=== PATIENT | male | born 1970 | race Caucasian/White ===

== ENCOUNTER → 2020-02-23 12:00 | Outpatient (BNVA) | payer OTHER, SELFPAY | PROVIDERS: PCP Internal Medicine; Visit Provider Internal Medicine | DX: I26.99 Other pulmonary embolism without acute cor pulmonale (principal); Z51.81 Encounter for therapeutic drug level monitoring; Z79.01 Long term (current) use of anticoagulants | CPT/HCPCS: 85610; 99211 ==

== ENCOUNTER 2020-03-06 13:05 | Outpatient (REF) | payer OTHER, SELFPAY ==
--- NOTE | 2020-03-06 13:59 | XR_ITS ---
EXAMINATION: XR CHEST CLINICAL INFORMATION: Asthma. COMPARISON: Chest 07/25/2019. TECHNIQUE: 2 views of the chest were obtained. FINDINGS: The lungs are fairly well-expanded with patchy density seen in left upper lobe suspicious for developing infiltrate/atelectasis/scarring. Patchy density seen in left lower lobe as well questioned infiltrate versus atelectasis. Prominent vascular markings were seen on the previous study. Rest of lungs are expanded and clear. Heart size and vascularity is normal. There is mild dextroscoliosis of dorsal spine. There are surgical sylvain in the mediastinum. There is resection of left posterior fourth rib. XR/XR chest 2V IMPRESSION: Suspect left upper and lower lobe early infiltrate/atelectasis/scarring.
== END 2020-03-06 13:06 | disposition home or self-care (01) ==
LOC: HO.XRAY 13:05
PROVIDERS: PCP Internal Medicine; Referring Provider Internal Medicine; Visit Provider Internal Medicine
DX: J45.909 Unspecified asthma, uncomplicated (principal)
CPT/HCPCS: 71046; 85610

== ENCOUNTER → 2020-03-16 13:03 | Outpatient (BNVA) | payer OTHER, SELFPAY | PROVIDERS: PCP Internal Medicine; Visit Provider Internal Medicine | DX: I26.99 Other pulmonary embolism without acute cor pulmonale (principal); Z79.01 Long term (current) use of anticoagulants; Z51.81 Encounter for therapeutic drug level monitoring | CPT/HCPCS: 85610; 99211 ==

== ENCOUNTER 2020-03-19 12:59 | Outpatient (REF) | payer OTHER, SELFPAY ==
--- NOTE | 2020-03-19 13:02 | CT_ITS ---
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 Axial MIP volume rendering provided. Sagittal and coronal reformatted images were obtained. This CT examination was performed using dose optimization techniques as appropriate, variously including the following: *Automated exposure control *Adjustment of mA and/or kV according to patient size (this includes techniques or standardized protocols for targeted exams where dose is matched to indication/reason for exam; i.e. extremities or head) *Use of iterative reconstruction technique DLP: 414 mGy-cm FINDINGS: ATTENDING PATHOLOGIST: Postsurgical changes left hemithorax. LUNGS: There is stable postsurgical changes to the left hemithorax. There is volume loss of the left lower lobe. There is consolidation seen in the superior segment of the left lower lobe with air bronchograms and some traction bronchiectasis. This is unchanged. There are small calcified right pulmonary nodules that are stable. No new pulmonary nodule is seen. MEDIASTINUM: There are small mediastinal lymph nodes that are stable. There is a small calcified right hilar lymph node that is stable. There are surgical clips in the left posterior mediastinum. The heart does not appear enlarged. There is no pericardial effusion. PLEURA: There is a small loculated pleural effusion or pleural thickening in the surgical field that is unchanged. There is is no right pleural effusion. AXILLA: Superior axillary lymph nodes appear decreased in size from most recent exam February 2019. There is a new prominent more inferior axillary or left lateral chest wall and measures 1.4 x 2.3 cm in AP and transverse dimension axial image 19 series 3. There is a soft tissue seen in the postoperative field of the left upper posterior chest that appears unchanged. UPPER ABDOMEN: Unremarkable. OSSEOUS STRUCTURES: There are postsurgical changes to the left third through ninth posterior ribs. There are degenerative changes of the thoracic spine. CT/CT chest wo con IMPRESSION: Stable postsurgical and posttreatment changes to the left posterior lower chest and chest wall. Upper left axillary lymph nodes appear slightly decreased in size from most recent exam February 2019. There is a new prominent left inferior axillary or lateral chest lymph node measuring 1.4 x 2.3 cm.
== END 2020-03-19 13:00 | disposition home or self-care (01) ==
LOC: HO.CT 12:59
PROVIDERS: PCP Internal Medicine; Visit Provider Surgery
DX: C49.3 Malignant neoplasm of connective and soft tissue of thorax (principal)
CPT/HCPCS: 71250

== ENCOUNTER → 2020-03-23 11:56 | Outpatient (BNVA) | payer OTHER, SELFPAY | PROVIDERS: PCP Internal Medicine; Visit Provider Internal Medicine | DX: I26.99 Other pulmonary embolism without acute cor pulmonale (principal); Z51.81 Encounter for therapeutic drug level monitoring; Z79.01 Long term (current) use of anticoagulants | CPT/HCPCS: 85610; 99211 ==

== ENCOUNTER → 2020-04-04 13:03 | Outpatient (BNVA) | payer OTHER, SELFPAY | PROVIDERS: PCP Internal Medicine; Visit Provider Internal Medicine | DX: I26.99 Other pulmonary embolism without acute cor pulmonale (principal); Z79.01 Long term (current) use of anticoagulants; Z51.81 Encounter for therapeutic drug level monitoring | CPT/HCPCS: 85610; 99211 ==

== ENCOUNTER → 2020-04-13 10:29 | Outpatient (BNVA) | payer OTHER, SELFPAY | PROVIDERS: PCP Internal Medicine; Visit Provider Surgery | DX: Z98.890 Other specified postprocedural states (principal) | CPT/HCPCS: 99214 ==

== ENCOUNTER → 2020-04-25 13:00 | Outpatient (BNVA) | payer OTHER, SELFPAY | PROVIDERS: PCP Internal Medicine; Visit Provider Internal Medicine | DX: I26.99 Other pulmonary embolism without acute cor pulmonale (principal); Z51.81 Encounter for therapeutic drug level monitoring; Z79.01 Long term (current) use of anticoagulants | CPT/HCPCS: 85610; 99211 ==

== ENCOUNTER → 2020-05-02 13:16 | Outpatient (BNVA) | payer OTHER, SELFPAY | PROVIDERS: PCP Internal Medicine; Visit Provider Internal Medicine | DX: J45.909 Unspecified asthma, uncomplicated (principal); J44.9 Chronic obstructive pulmonary disease, unspecified; J98.4 Other disorders of lung | CPT/HCPCS: 99212 ==

== ENCOUNTER → 2020-05-16 13:33 | Outpatient (BNVA) | payer OTHER, SELFPAY | PROVIDERS: PCP Internal Medicine; Visit Provider Internal Medicine | DX: I26.99 Other pulmonary embolism without acute cor pulmonale (principal); Z51.81 Encounter for therapeutic drug level monitoring; Z79.01 Long term (current) use of anticoagulants | CPT/HCPCS: 85610; 99211 ==

== ENCOUNTER 2020-05-30 13:04 | Outpatient (REF) | payer OTHER, SELFPAY ==
[2020-05-30 13:58] LABS: MANUAL DIFF FLAG NO
[2020-05-30 14:01] LABS: Basophils Percent Auto 0.3 % (0-2); Eosinophils Absolute Auto 0.1 X10*3/uL (0.0-0.4); Eosinophils Percent Auto 1.4 % (0-4); Imm Gran Abs Auto 0.01 X10*3/uL (0.00-0.03); Imm Gran Pct Auto 0.2 % (0.0-0.4); Lymphocytes Absolute Auto 1.4 X10*3/uL (1.2-4.9); Lymphocytes Percent Auto 21.6 % (20-40); Mean Corpuscular HGB Conc 34.1 g/dl (31.0-36.0); Mean Corpuscular Hemoglobin 28.5 pg (27.0-33.0); Mean Corpuscular Volume 83.5 fL (80-98); Mean Platelet Volume 9.8 fL (9.4-12.4); Monocytes Absolute Auto 0.3 X10*3/uL (0.1-1.2); Monocytes Percent Auto 5.1 % (2-11); Neutrophils Absolute Auto 4.6 X10*3/uL (2.0-8.3); Neutrophils Percent Auto 71.4 % (45-73); Platelet Count 189 X10*3/uL (160-400); Red Blood Count 5.27 X10*6/uL (4.60-5.80); Red Cell Distribution Width 13.7 % (11.0-16.0); White Blood Count 6.5 X10*3/uL (4.8-10.8)
[2020-05-30 14:14] LABS: Prothrombin Time 67.5 SEC (10.8-13.0)
[2020-05-30 14:19] LABS: INTERNATIONAL NORM RATIO 5.6 (0.9-1.1)
[2020-05-30 14:46] LABS: Alanine Aminotransferase 8 U/L (0-40); Albumin Level 4.1 g/dL (3.5-5.0); Alkaline Phosphatase 132 U/L (39-117); Anion Gap 12 (12-20); Aspartate Amino Transferase 9 U/L (5-37); Bilirubin Total 0.4 mg/dL (0.0-1.0); Blood Urea Nitrogen 6 mg/dL (9-16); Calcium 8.3 mg/dL (8.4-10.2); Carbon Dioxide 26 mmol/L (22-29); Chloride 101 mmol/L (96-108); Estimated Glomerular Filt Rate > 60; Glucose Random 347 mg/dL (60-115); Potassium 3.4 mmol/l (3.3-5.1); Sodium 136 mmol/L (135-145); Total Protein 7.1 g/dL (6.5-8.0)
== END 2020-05-30 13:05 | disposition home or self-care (01) ==
LOC: HO.LAB 13:04
PROVIDERS: PCP Internal Medicine; Visit Provider Internal Medicine
DX: Z79.01 Long term (current) use of anticoagulants (principal)
CPT/HCPCS: 36415; 80053; 85025; 85610; 99211

== ENCOUNTER → 2020-06-05 13:07 | Outpatient (BNVA) | payer OTHER, SELFPAY | PROVIDERS: PCP Internal Medicine; Visit Provider Internal Medicine | DX: I26.99 Other pulmonary embolism without acute cor pulmonale (principal); Z51.81 Encounter for therapeutic drug level monitoring; Z79.01 Long term (current) use of anticoagulants | CPT/HCPCS: 85610; 99211 ==

== ENCOUNTER → 2020-06-14 13:03 | Outpatient (BNVA) | payer OTHER, SELFPAY | PROVIDERS: PCP Internal Medicine; Visit Provider Internal Medicine | DX: I26.99 Other pulmonary embolism without acute cor pulmonale (principal); Z51.81 Encounter for therapeutic drug level monitoring; Z79.01 Long term (current) use of anticoagulants | CPT/HCPCS: 85610; 99211 ==

== ENCOUNTER → 2020-06-22 13:02 | Outpatient (BNVA) | payer OTHER, SELFPAY | PROVIDERS: PCP Internal Medicine; Visit Provider Internal Medicine | DX: I26.99 Other pulmonary embolism without acute cor pulmonale (principal); Z51.81 Encounter for therapeutic drug level monitoring; Z79.01 Long term (current) use of anticoagulants | CPT/HCPCS: 85610; 99211 ==

== ENCOUNTER → 2020-07-06 12:58 | Outpatient (BNVA) | payer OTHER, SELFPAY | PROVIDERS: PCP Internal Medicine; Visit Provider Internal Medicine | DX: I26.99 Other pulmonary embolism without acute cor pulmonale (principal); Z51.81 Encounter for therapeutic drug level monitoring; Z79.01 Long term (current) use of anticoagulants | CPT/HCPCS: 85610; 99211 ==

== ENCOUNTER → 2020-10-22 13:18 | Outpatient (BNVA) | payer OTHER, SELFPAY | PROVIDERS: PCP Internal Medicine; Visit Provider Internal Medicine | DX: J44.9 Chronic obstructive pulmonary disease, unspecified (principal); J45.909 Unspecified asthma, uncomplicated; J98.4 Other disorders of lung; Z79.899 Other long term (current) drug therapy | CPT/HCPCS: 99212 ==

== ENCOUNTER → 2020-12-24 13:09 | Outpatient (BNVA) | payer OTHER, SELFPAY | PROVIDERS: PCP Internal Medicine; Visit Provider Internal Medicine | DX: J44.9 Chronic obstructive pulmonary disease, unspecified (principal); J98.4 Other disorders of lung; J45.909 Unspecified asthma, uncomplicated; Z79.01 Long term (current) use of anticoagulants | CPT/HCPCS: 99212 ==

== ENCOUNTER 2021-02-25 11:53 | Outpatient (REF) | payer OTHER, SELFPAY ==
[2021-02-25 12:16] LABS: MANUAL DIFF FLAG NO
[2021-02-25 12:25] LABS: Basophils Percent Auto 0.4 % (0-2); Eosinophils Absolute Auto 0.2 X10*3/uL (0.0-0.4); Eosinophils Percent Auto 2.3 % (0-4); Hematocrit 43.1 % (42-52); Hemoglobin 15.3 g/dl (14.0-18.0); Imm Gran Abs Auto 0.01 X10*3/uL (0.00-0.03); Imm Gran Pct Auto 0.1 % (0.0-0.4); Lymphocytes Absolute Auto 1.9 X10*3/uL (1.2-4.9); Lymphocytes Percent Auto 25.4 % (20-40); Mean Corpuscular HGB Conc 35.5 g/dl (31.0-36.0); Mean Corpuscular Hemoglobin 31.6 pg (27.0-33.0); Mean Platelet Volume 10.5 fL (9.4-12.4); Monocytes Absolute Auto 0.4 X10*3/uL (0.1-1.2); Monocytes Percent Auto 5.9 % (2-11); Neutrophils Absolute Auto 4.8 X10*3/uL (2.0-8.3); Neutrophils Percent Auto 65.9 % (45-73); Platelet Count 214 X10*3/uL (160-400); Red Blood Count 4.84 X10*6/uL (4.60-5.80); Red Cell Distribution Width 14.6 % (11.0-16.0); White Blood Count 7.3 X10*3/uL (4.8-10.8)
[2021-02-25 12:35] LABS: Estimated Average Glucose 326 mg/dL
[2021-02-25 13:11] LABS: Glucose Fasting 383 mg/dL (60-99)
[2021-02-25 13:12] LABS: Alanine Aminotransferase 29 U/L (0-40); Albumin Level 3.9 g/dL (3.5-5.0); Alkaline Phosphatase 139 U/L (39-117); Anion Gap 14 (12-20); Aspartate Amino Transferase 21 U/L (5-37); Bilirubin Total 0.8 mg/dL (0.0-1.0); Blood Urea Nitrogen 11 mg/dL (9-16); Calcium 9.3 mg/dL (8.4-10.2); Carbon Dioxide 25 mmol/L (22-29); Chloride 101 mmol/L (96-108); Cholesterol 213 mg/dL; Estimated Glomerular Filt Rate 49; HDL Cholesterol 29 mg/dL; Potassium 4.4 mmol/L (3.3-5.1); Sodium 136 mmol/L (135-145); Triglycerides 516 mg/dL
[2021-02-25 13:17] LABS: TSH reflex Free T4 3.49 uIU/mL (0.32-4.0); Vitamin D 25-OH Total 26.2 ng/mL (>30)
[2021-02-25 13:20] LABS: Appearance Urine CLEAR; Color Urine YELLOW; Glucose Urine UA >=1000 MG/DL (NEG); Leukocyte Esterase Urine NEG (NEG); Nitrite Urine NEG (NEG); UACC Culture Trigger NO; Urine Blood TRACE (NEG); Urine Ketones NEG (NEG); Urine Protein TRACE MG/DL (NEG-TRACE)
[2021-02-25 13:52] LABS: Creatinine Urine 111.34 mg/dL; Microalbum/Creatinine Ratio Ur 157.1 ug/mg cr
[2021-02-27 00:23] LABS: C Peptide 2.96 ng/mL (0.80-3.85)
== END 2021-02-25 11:54 | disposition home or self-care (01) ==
LOC: HO.LAB 11:53
PROVIDERS: PCP Internal Medicine; Visit Provider Internal Medicine
DX: E11.9 Type 2 diabetes mellitus without complications (principal); I10 Essential (primary) hypertension; E78.00 Pure hypercholesterolemia, unspecified; J44.9 Chronic obstructive pulmonary disease, unspecified; E55.9 Vitamin D deficiency, unspecified; C41.9 Malignant neoplasm of bone and articular cartilage, unspecified; J98.4 Other disorders of lung; Z79.899 Other long term (current) drug therapy; Z79.01 Long term (current) use of anticoagulants
CPT/HCPCS: 36415; 80053; 80061; 81001; 81003; 82043; 82306; 83036; 84443; 84681; 85025; 99212

== ENCOUNTER 2021-03-13 21:46 | Emergency (ER) | payer OTHER, SELFPAY ==
--- NOTE | ~2021-03-13 | CT_ITS ---
EXAMINATION: CT ANGIOGRAM OF THE CHEST WITH AND WITHOUT CONTRAST (CT PULMONARY ANGIOGRAM FOR PE) CLINICAL INFORMATION: Chest pain history of bilateral PE COMPARISON: CT dated 03/19/2020 and 06/15/2018 TECHNIQUE: Prior to contrast administration, noncontrast localization images were obtained. Subsequently, multidetector volumetric imaging was performed from the thoracic inlet to below the diaphragms following the administration of 65 mL Omnipaque 350 intravenous contrast. No contrast reaction reported Sagittal, coronal, and MIP oblique sagittal reformatted images were obtained on the CT workstation, uploaded to PACS, and reviewed. This CT examination was performed using dose optimization techniques as appropriate, variously including the following: *Automated exposure control *Adjustment of mA and/or kV according to patient size (this includes techniques or standardized protocols for targeted exams where dose is matched to indication/reason for exam; i.e. extremities or head) *Use of iterative reconstruction technique Total exam dose-length product 377 mGy-cm FINDINGS: QUALITY OF STUDY/CONTRAST BOLUS: Satisfactory. PULMONARY ARTERIES: No central or segmental pulmonary emboli. There is relatively hypoperfusion of the posterior and medial basilar segments of the left lower lobe which is likely related to the traction bronchiectasis pleural scarring, and chronic atelectasis in this region. There is rounded atelectasis in the left lower lobe posteriorly adjacent to the chest wall. THORACIC AORTA: No aneurysm or dissection. LUNG: As noted above, there is persistent traction bronchiectasis, pleural peripheral scarring, and rounded atelectasis in the posterior aspect left lower lobe, unchanged dating back multiple prior studies. There is relative volume loss in the left hemithorax, most notably in the left lower lobe. This is an expiratory study as evidenced by the anterior bowing of the posterior wall of the trachea. Patchy areas of subtle increased attenuation throughout both lungs are likely related to the expiratory nature of the study. No focal airspace consolidation. Central airways are otherwise clear. No pulmonary nodules. PLEURA: No pleural effusion or pneumothorax. MEDIASTINUM: Normal heart size. No pericardial effusion. No hilar or mediastinal lymphadenopathy. No evidence of septal bowing or right heart strain. CHEST WALL/AXILLA: There is a left axillary lymph nodes measuring up to 1.7 x 2.5 cm which is slightly increased in size from prior. Is evidence of postsurgical changes are present in the left chest wall posteriorly related to prior chondrosarcoma resection. Osteotomies of the left fifth through eighth ribs are noted posteriorly near the costovertebral junction. There is chronic soft tissue thickening in this region which is unchanged as compared to prior and presumably postsurgical in nature. No definite evidence of local recurrence, though sensitivity is limited. OSSEOUS STRUCTURES: Postsurgical changes of the left chest wall are again noted as detailed above. No acute osseous findings. There is mild degenerative disc disease in the thoracic spine. UPPER ABDOMEN: Mild hepatic steatosis. No reflux of contrast into the hepatic veins to suggest elevated right heart pressures. CT/CT angio chest PE protocol IMPRESSION: 1. No acute pulmonary findings. No evidence of pulmonary emboli. 2. Chronic post surgical changes at the left hemithorax posteriorly with associated pleural parenchymal scarring and rounded atelectasis at the left lower lobe inferiorly/posteriorly. There is relative hypoperfusion of this portion of the left lower lobe. No acute findings in this region. 3. Enlarged 2.5 x 1.7 cm left axillary lymph node, slightly increased in size as compared to prior but not significantly changed as compared to 06/15/2018. VTE: negative
--- NOTE | ~2021-03-13 | XR_ITS ---
EXAMINATION: XR CHEST CLINICAL INFORMATION: Chest pain COMPARISON: [facility] Registered Nurse Rn film from CT dated 03/19/2020, chest film dated 03/06/2020 TECHNIQUE: Frontal view of the chest was obtained. FINDINGS: Chronic markings on the left. No convincing evidence for an acute process when compared to previous. There is volume loss here and scoliosis. The right lung is comparable to previous. The cardiac silhouette is comparable to previous. XR/XR chest 1V IMPRESSION: No convincing evidence for an acute process.
[2021-03-13 21:51] VITALS: BP 180/86; PULSE 81; RESP 18; TEMP 36.3; O2SAT 98; BMI 38.0
--- NOTE | 2021-03-13 21:52 | ECG_ITS ---
Test Reason : chest pain Blood Pressure : / mmHG Vent. Rate : 081 BPM Atrial Rate : 081 BPM P-R Int : 140 ms QRS Dur : 092 ms QT Int : 388 ms P-R-T Axes : 017 -01 009 degrees QTc Int : 450 ms Normal sinus rhythm Normal ECG Heart rate has increased Referred By: Generic ED Physician Electronically Signed By:ROSALINDA ROMAN MD
[2021-03-13 22:12] LABS: MANUAL DIFF FLAG NO
[2021-03-13 22:13] LABS: Basophils Percent Auto 0.4 % (0-2); Eosinophils Absolute Auto 0.2 X10*3/uL (0.0-0.4); Eosinophils Percent Auto 2.4 % (0-4); Hematocrit 41.1 % (42.0-52.0); Hemoglobin 14.2 g/dl (14.0-18.0); Imm Gran Abs Auto 0.01 X10*3/uL (0.00-0.03); Imm Gran Pct Auto 0.1 % (0.0-0.4); Lymphocytes Absolute Auto 2.4 X10*3/uL (1.2-4.9); Lymphocytes Percent Auto 32.7 % (20-40); Mean Corpuscular HGB Conc 34.5 g/dl (31.0-36.0); Mean Corpuscular Hemoglobin 31.9 pg (27.0-33.0); Mean Corpuscular Volume 92.4 fL (80.0-98.0); Mean Platelet Volume 10.1 fL (9.4-12.4); Monocytes Absolute Auto 0.5 X10*3/uL (0.1-1.2); Monocytes Percent Auto 6.6 % (2-11); Neutrophils Absolute Auto 4.17 x10*3/uL (2.0-8.3); Neutrophils Percent Auto 57.8 % (45-73); Platelet Count 195 X10*3/uL (160-400); Red Blood Count 4.45 X10*6/uL (4.60-5.80); Red Cell Distribution Width 14.1 % (11.0-16.0); White Blood Count 7.2 X10*3/uL (4.8-10.8)
[2021-03-13 22:26] LABS: Anion Gap 13 (12-20); Blood Urea Nitrogen 11 mg/dL (9-16); Carbon Dioxide 28 mmol/L (22-29); Chloride 100 mmol/L (96-108); Estimated Glomerular Filt Rate 53; Glucose Random 261 mg/dL (60-115); Potassium 3.9 mmol/L (3.3-5.1); Sodium 137 mmol/L (135-145)
[2021-03-13 22:34] LABS: Troponin-I High Sensitivity 5.4 ng/L (<3.5-35.0)
[2021-03-14 00:59] VITALS: BP 161/83; PULSE 66; RESP 17; TEMP 36.7; O2SAT 98
--- NOTE | 2021-03-14 00:59 | ED.CHESTPAIN ---
HPI - Chest Pain General Chief Complaint: Chest Pain Stated Complaint: feels like heart is beating fast Time Seen by Provider: 03/14/21 00:59 Source: patient Mode of arrival: ambulatory Limitations: no limitations History of Present Illness HPI narrative: Patient complaining of palpitatios and chest pain since 17:00 yesterday lasting only for few seconds had Holter monitoring 2016 which showed occasional PVCs patient does have a history of PE in 2016, history of chondrosarcoma with resection of left sided rib cage, asthma COPD, diabetes mellitus, hypertension was on Coumadin until 07/29 off Coumadin now. Feels left side of chest heavy with more often palpitation episodes no dizziness no loss of consciousness Related Data Previous Rx's Medication Instructions Recorded atorvastatin 40 mg tablet 40 mg PO DAILY #90 tab 06/14/20 omeprazole 40 mg capsule,delayed 40 mg PO DAILY #90 cap 06/14/20 release atenolol 25 mg tablet 25 mg PO DAILY #90 tab 12/17/20 ProAir HFA 90 mcg/actuation 2 puff PO Q4H PRN #8.5 g NS 01/15/21 aerosol inhaler (albuterol sulfate) insulin glargine 100 unit/mL (3 20 unit (0.2 mL) SUBCUT QPM 30 02/22/21 mL) subcutaneous pen (Lantus Days #6 ml Solostar U-100 Insulin) metformin 500 mg tablet 500 mg PO BID 30 Days #60 tab 02/22/21 pen needle, diabetic 32 gauge x #100 ea 02/22/21 5/32 (BD Ultra-Fine Estrella Pen Needle) Allergies Allergy/AdvReac Type Severity Reaction Status Date / Time cat dander [CATS] Allergy Unknown UNKNOWN Verified 02/25/21 13:26 dog dander [DOGS] Allergy Unknown UNKNOWN Verified 02/25/21 13:26 mold [MOLD] Allergy Unknown UNKNOWN Verified 02/25/21 13:26 pollen extracts [POLLEN] Allergy Unknown RUNNY NOSE Verified 02/25/21 13:26 Review of Systems Review of Systems: Yes all other systems are reviewed and are negative PMFSH Past Medical History Medical History Asthma Benign essential hypertension Chondrosarcoma Chronic restrictive lung disease COPD (chronic obstructive pulmonary disease) COPD (chronic obstructive pulmonary disease) Diabetes mellitus Hyperlipidemia Obesity (BMI 30-39.9) Pulmonary emboli Pure hypercholesterolemia Surgical History H/O tooth extraction History of inguinal hernia repair Hx of exploratory thoracotomy Family History Family History Father Hypertension Kidney failure, acute Mother Lung cancer Family/Other Diabetes Social History Social History Housing: House Alcohol intake: former Patient Tobacco Use Status: Never used Tobacco Second Hand Smoke Exposure: Yes Advance Directives: No service: No Current occupational status: unemployed Physical Exam Vital Signs: Vital Signs: Last Vital Signs Temp 98.1 F 03/14/21 00:59 Pulse 66 03/14/21 00:59 Resp 17 03/14/21 00:59 BP 161/83 H 03/14/21 00:59 Pulse Ox 98 03/14/21 00:59 Body Mass Index 38.0 Appearance: Alert. Oriented X3. No acute distress. Obese Eyes: No pallor or icterus ENT: Pharynx normal. Oral Mucosa moist Neck: Normal inspection. Neck supple. CVS: Normal heart rate and rhythm. Pulses normal. Respiratory: No respiratory distress. Equal air entry bilateral, no wheezing/rales/rhonchi Abdomen: Soft and nontender. Bowel sounds are present, no mass palpable, no CVA tenderness Skin: Skin warm and dry. Normal skin color. Normal skin turgor. Extremities: No lower extremity edema. No calf tenderness Neuro: Oriented X 3. No motor deficit. MDM - Chest Pain MDM Narrative Medical decision making narrative: Patient with left chest pain and heaviness with history of PE with obese features likely has obstructive sleep apnea will do CTA chest to rule out PE EKG is normal and cardiac enzymes are negative case signed out to Dr. Marinelli pending CT scan Lab Data Attestation: I reviewed the patient's lab results. Result diagrams: 03/13/21 22:05 03/13/21 22:05 Labs: Lab Results 03/13/21 03/13/21 03/13/21 Range/Units 22:05 22:05 22:05 WBC 7.2 (4.8-10.8) X10*3/uL RBC 4.45 L (4.60-5.80) X10*6/uL Hgb 14.2 (14.0-18.0) g/dl Hct 41.1 L (42.0-52.0) % MCV 92.4 (80.0-98.0) fL MCH 31.9 (27.0-33.0) pg MCHC 34.5 (31.0-36.0) g/dl RDW 14.1 (11.0-16.0) % Plt Count 195 (160-400) X10*3/uL MPV 10.1 (9.4-12.4) fL Immature Gran % (Auto) 0.1 (0.0-0.4) % Neut % (Auto) 57.8 (45-73) % Lymph % (Auto) 32.7 (20-40) % [place] % (Auto) 6.6 (2-11) % Eos % (Auto) 2.4 (0-4) % Baso % (Auto) 0.4 (0-2) % Lymph # (Auto) 2.4 (1.2-4.9) X10*3/uL [place] # (Auto) 0.5 (0.1-1.2) X10*3/uL Eos # (Auto) 0.2 (0.0-0.4) X10*3/uL Baso # (Auto) 0.0 (0.0-0.2) X10*3/uL Abs Immat Gran (auto) 0.01 (0.00-0.03) X10*3/uL Absolute Neuts (auto) 4.17 (2.0-8.3) x10*3/uL Absolute Nucleated RBC 0.000 (0.0-0.012) X10*3/uL Nucleated RBC % (auto) 0.0 (0.0-0.2) /100WBC Sodium 137 (135-145) mmol/L Potassium 3.9 (3.3-5.1) mmol/L Chloride 100 (96-108) mmol/L Carbon Dioxide 28 (22-29) mmol/L Anion Gap 13 (12-20) BUN 11 (9-16) mg/dL Creatinine 1.42 H (0.5-1.4) mg/dL Estim Creat Clear Calc 76.0 Estimated GFR 53 Random Glucose 261 H (60-115) mg/dL Calcium 9.0 (8.4-10.2) mg/dL Troponin I High Sens 5.4 (<3.5-35.0) ng/L ECG Data ECG #1: Attestation: I personally reviewed and interpreted this ECG as follows: Interpretation: Normal sinus rhythm heart rate 81 beats per minute no acute ST T wave changes no acute ischemia impression normal EKG Discharge Plan Discharge Clinical Impression: Heart palpitations Chest pain Qualifiers: Chest pain type: precordial pain Qualified Code(s): R07.2 - Precordial pain Prescriptions: No Action omeprazole 40 mg capsule,delayed release(DR/EC) 40 mg PO DAILY Qty: 90 RF: 8 atorvastatin 40 mg tablet 40 mg PO DAILY Qty: 90 RF: 8 atenolol 25 mg tablet 25 mg PO DAILY Qty: 90 RF: 8 albuterol sulfate [ProAir HFA] 90 mcg/actuation HFA aerosol inhaler 2 puff PO Q4H PRN (Reason: for wheezing) Qty: 8.5 RF: 3 metformin 500 mg tablet 500 mg PO BID 30 Days Qty: 60 RF: 1 Lantus Solostar U-100 Insulin 100 unit/mL (3 mL) insulin pen 20 unit subcut QPM 30 Days Qty: 6 RF: 1 (DME) pen needle, diabetic [BD Ultra-Fine Estrella Pen Needle] 32 gauge x 5/32 needle See Rx Instructions .Route Qty: 100 RF: 5
[2021-03-14] MEDS: 0.9 % Sodium Chloride 1,000 ML 999 ML IVCONT (02:00)
[2021-03-14 02:08] LABS: Prothrombin Time 10.8 SEC (9.9-13.0)
[2021-03-14 02:11] LABS: Partial Thromboplastin Time 32.2 SEC (24.1-38.0)
[2021-03-14] MEDS: iohexoL 350 MG/ML 100 ML INFUS..BTL IV (03:57)
[2021-03-14 04:00] VITALS: BP 143/70; PULSE 62; RESP 14
[2021-03-14] MEDS: LORazepam 1 MG TABLET PO (04:40)
[2021-03-14 05:17] VITALS: BP 130/73; PULSE 67; RESP 20; TEMP 37.1; O2SAT 95
== END 2021-03-14 06:13 | disposition home or self-care (01) ==
PROVIDERS: Internal Medicine; Emergency Provider Emergency Medicine; PCP Internal Medicine
DX: R00.2 Palpitations (principal); R07.2 Precordial pain; Z79.899 Other long term (current) drug therapy
CPT/HCPCS: 36415; 71045; 71275; 80048; 84484; 85025; 85610; 85730; 93005; 96360; 99284; 99285; Q9967

== ENCOUNTER 2021-03-18 12:21 | Outpatient (REF) | payer OTHER, SELFPAY ==
--- NOTE | 2021-03-18 17:46 | PFT_ITS ---
INDICATION: COPD. SPIROMETRY: The FEV1 to FVC of 84% with an FEV1 of 1.5 L which is a 47% predicted, and FVC of 1.79 L which is 44% predicted. No significant response to bronchodilators noted. Maximum voluntary ventilation 59% predicted. LUNG VOLUMES: Total lung capacity 67% predicted with an expiratory reserve volume of 17% predicted. DIFFUSION CAPACITY: DLCO of 61% predicted. COMPARISONS: PFTs from 2020. INTERPRETATION: No obstructive ventilatory defect. No significant response to bronchodilators noted. The patient does have some evidence of small airways disease and moderate degree of decrease in maximum voluntary ventilation secondary to deconditioning. The patient does have a mild restrictive ventilatory defect and also has a decrease in the expiratory reserve volume secondary to an elevated BMI. The patient has a moderate diffusion impairment. When compared to 2019, there is significant decrease in the FVC, significant decrease in the FEV1, a trend increase in the total lung capacity, and trend decrease in the diffusion capacity. Clinical correlation warranted. MD PATRICIA Goldman/FINN / [id number]
== END 2021-03-18 12:22 | disposition home or self-care (01) ==
LOC: HO.RESP 12:21
PROVIDERS: PCP Internal Medicine; Visit Provider Internal Medicine
DX: J98.4 Other disorders of lung (principal); J44.9 Chronic obstructive pulmonary disease, unspecified
CPT/HCPCS: 94060; 94727; 94729

== ENCOUNTER → 2021-04-18 14:04 | Outpatient (BNVA) | payer OTHER, SELFPAY | PROVIDERS: PCP Internal Medicine; Referring Provider Internal Medicine; Visit Provider Internal Medicine Cardiovascular Disease | DX: R00.2 Palpitations (principal); R06.02 Shortness of breath; I10 Essential (primary) hypertension | CPT/HCPCS: 99202 ==

== ENCOUNTER → 2021-06-10 13:28 | Outpatient (REF) | payer OTHER, SELFPAY ==
--- NOTE | 2021-06-10 13:57 | CA_ITS ---
Transthoracic Echocardiogram Patient (Last, First, Middle): Jasbir Joseph O Gender: Male Date of : 1970 Age: 50 Procedure Date: 06/10/2021 Procedure Type: Transthoracic Echocardiogram Location: OP Height: 172.72 cm Weight: 113.4 kg BSA: 2.25 m2 Heart Rate: bpm BP: 136 / 70 mmHg Staff Development Coordinator Rn: SINGH Referring MD: Fan Collins MD Symptoms: R00.2 - Palpitations Study Quality: Technically Difficult/Contrast ECG Rhythm: Sinus Conclusions: - The left ventricular systolic function is normal. The calculated ejection fraction is 67% by biplane method. - There is mild calcification of the aortic valve. - There is mild mitral annular calcification. - Mild pulmonary hypertension is present. Findings Procedure Information Contrast agent, definity, is being given per protocol without apparent complications. Left Ventricle Normal left ventricular cavity size. There is mildly increased left ventricular wall thickness. The left ventricular systolic function is normal. The calculated ejection fraction is 67% by biplane method. There is no evidence of regional wall motion abnormalities. Diastolic function is normal for age. Right Ventricle Normal right ventricular cavity size and systolic function. Atria Both atria are normal in size. Aortic Valve There is a normal trileaflet aortic valve. There is mild calcification of the aortic valve. There is no aortic valve stenosis. There is no aortic valve regurgitation. Mitral Valve There is mild mitral annular calcification. There is no mitral valve regurgitation. There is no mitral valve stenosis. Pulmonic Valve The pulmonic valve is likely normal. Tricuspid Valve There is trace tricuspid valve regurgitation. The right ventricular systolic pressure is 42 mmHg. Mild pulmonary hypertension is present. Great Vessels The aortic annulus, sinuses of valsalva, and asc aorta are normal in size. Venous The inferior vena cava is normal in size and collapses greater than 50% with inspiration. Pericardium/Pleural There is no evidence of pericardial effusion. Prior Study Comparison Changes noted compared to prior study dated: 11/04/2018. Measurements 2D Linear Measurements IVSd: 1.21 0.6-0.9/0.6-1.0 cm LVIDd: 4.56 3.9-5.3/4.2-5.9 cm LVIDd Index: 2.03 2.4-3.2/2.2-3.1 cm/m2 LVIDs: 2.87 2.0-3.6 cm LVPWd: 1.18 0.7-1.1 cm Ao Root: 2.70 2.1-3.5 cm LA Diam: 3.70 2.7-3.8/3.0-4.0 cm LAIDs Index: 1.64 1.5-2.3 cm/m2 LV Mass: 250.52 67-162/88-224 g LV Mass Index: 111.34 43-95/49-115 g/m2 LVOT Diam: 2.10 3.0+(-)1.3 cm 2D Systolic Function EF 4C: 67.90 >55% EF 2C: 67.10 >55% EF BiP: 66.90 >55% Mitral Valve MV Pk E: 1.15 MV PK A: 0.93 MV Decel Time: 259.00 E/A: 1.20 E'Lateral: 11.50 E'Medial: 7.29 E/E' Med: 15.80 E/E' Lat: 10.00 PHT: 76.00 MVA PHT: 2.89 Decel [place]: 4.46 Aortic Valve AoV Pk Soto: 1.33 AoV Mn Soto: 0.85 AoV VTI: 0.24 AoV Pk Grad: 7.00 Aov Mn Grad: 3.00 DAKSHA Cont.VTI: 2.74 LVOT LVOT Pk Soto: 0.90 LVOT Mn Soto: 0.65 LVOT VTI: 0.19 LVOT Pk Grad: 3.00 LVOT Mn Grad: 2.00 LVOT Diam: 2.10 LVOT Area: 3.46 Diastolic Function MV Pk E: 1.15 MV Pk A: 0.93 E/A: 1.20 E'Medial: 7.29 E/E' Med: 15.80 E' Laterial: 11.50 E/E' Lat: 10.00 Right Ventricle TAPSE (mm): 18.00 TVS' Soto: 12.40 Tricuspid Valve TR Pk Soto: 3.12 TR Pk Grad: 39.00 RA Press: 3.00 RVSP: 42.00 Great Vessels Aorta Ao Root-2D: 2.70 2.0-3.7 cm Ao Asc: 3.00 2.1-3.4 cm Ao Arch: 3.00 Updated in Other Vendor System with Status of Final Nayan Jon MD electronically signed on 06/11/2021 10:50:21 AM with status of Final
--- NOTE | 2021-06-10 14:08 | HM_ITS ---
conclusion: 1. Patient was monitored for total period of 1 day and 22 hours 2. Baseline rhythm was normal sinus rhythm with average heart rate 60 beats per minute 3. No significant pauses or bradycardia noted 4. Very rare ectopy noted 5. No patient reported events MTDD
== END ==
LOC: HO.CARD 13:28
PROVIDERS: Visit Provider Internal Medicine Cardiovascular Disease
DX: R00.2 Palpitations (principal)
CPT/HCPCS: 93242; 93306; Q9957

== ENCOUNTER → 2021-06-12 13:54 | Outpatient (BNVA) | payer OTHER, SELFPAY | PROVIDERS: PCP Internal Medicine; Visit Provider Internal Medicine | DX: J44.9 Chronic obstructive pulmonary disease, unspecified (principal); J98.4 Other disorders of lung; E66.9 Obesity, unspecified; C41.9 Malignant neoplasm of bone and articular cartilage, unspecified; Z79.01 Long term (current) use of anticoagulants; Z68.41 Body mass index [BMI] 40.0-44.9, adult | CPT/HCPCS: 99212 ==

== ENCOUNTER → 2021-07-04 12:30 | Outpatient (BNVA) | payer OTHER, SELFPAY | PROVIDERS: PCP Internal Medicine; Referring Provider Internal Medicine; Visit Provider Nurse Practitioner Family | DX: R00.2 Palpitations (principal); R06.02 Shortness of breath; J98.4 Other disorders of lung; I10 Essential (primary) hypertension; E66.9 Obesity, unspecified; Z68.41 Body mass index [BMI] 40.0-44.9, adult | CPT/HCPCS: 99212 ==

== ENCOUNTER 2021-08-09 09:55 | Outpatient (REF) | payer OTHER, SELFPAY ==
[2021-08-09 10:09] LABS: MANUAL DIFF FLAG NO
[2021-08-09 10:23] LABS: Basophils Percent Auto 0.4 % (0-2); Eosinophils Absolute Auto 0.2 X10*3/uL (0.0-0.4); Eosinophils Percent Auto 2.8 % (0-4); Hemoglobin 13.3 g/dl (14.0-18.0); Imm Gran Abs Auto 0.02 X10*3/uL (0.00-0.03); Imm Gran Pct Auto 0.3 % (0.0-0.4); Lymphocytes Absolute Auto 1.9 X10*3/uL (1.2-4.9); Mean Corpuscular HGB Conc 33.3 g/dl (31.0-36.0); Mean Corpuscular Hemoglobin 30.6 pg (27.0-33.0); Mean Corpuscular Volume 92.2 fL (80.0-98.0); Monocytes Absolute Auto 0.5 X10*3/uL (0.1-1.2); Monocytes Percent Auto 7.5 % (2-11); Neutrophils Absolute Auto 4.6 x10*3/uL (2.0-8.3); Platelet Count 219 X10*3/uL (160-400); Red Blood Count 4.34 X10*6/uL (4.60-5.80); Red Cell Distribution Width 13.8 % (11.0-16.0); White Blood Count 7.2 X10*3/uL (4.8-10.8)
[2021-08-09 10:46] LABS: Appearance Urine CLEAR; Color Urine YELLOW; Glucose Urine UA NEG (NEG); Leukocyte Esterase Urine NEG (NEG); Nitrite Urine NEG (NEG); UACC Culture Trigger NO; Urine Blood TRACE (NEG); Urine Ketones NEG (NEG); Urine Protein NEG (NEG-TRACE)
[2021-08-09 10:49] LABS: Estimated Average Glucose 194 mg/dL; Hemoglobin A1c % 8.4 %
[2021-08-09 10:57] LABS: Alanine Aminotransferase 26 U/L (0-40); Albumin Level 3.9 g/dL (3.5-5.0); Alkaline Phosphatase 92 U/L (39-117); Anion Gap 14 (12-20); Aspartate Amino Transferase 19 U/L (5-37); Bilirubin Total 0.7 mg/dL (0.0-1.0); Blood Urea Nitrogen 15 mg/dL (9-16); Calcium 9.5 mg/dL (8.4-10.2); Carbon Dioxide 30 mmol/L (22-29); Chloride 98 mmol/L (96-108); Cholesterol 175 mg/dL; Estimated Glomerular Filt Rate 54; Glucose Fasting 184 mg/dL (60-99); HDL Cholesterol 31 mg/dL; LDL Cholesterol Calculated 92 mg/dl; Potassium 4.4 mmol/L (3.3-5.1); Sodium 138 mmol/L (135-145); Total Protein 6.9 g/dL (6.5-8.0); Triglycerides 261 mg/dL
[2021-08-09 11:02] LABS: Creatinine Urine 121.51 mg/dL; Microalbum/Creatinine Ratio Ur 65.8 ug/mg cr
[2021-08-09 11:09] LABS: TSH reflex Free T4 3.76 uIU/mL (0.32-4.0); Vitamin D 25-OH Total 31.2 ng/mL (>30)
[2021-08-09 11:16] LABS: RBC Urine 0-2 /HPF (0); WBC Urine 0 /HPF (0-4)
== END 2021-08-09 09:56 | disposition home or self-care (01) ==
LOC: HO.LAB 09:55
PROVIDERS: PCP Internal Medicine; Visit Provider Internal Medicine
DX: I10 Essential (primary) hypertension (principal); E78.00 Pure hypercholesterolemia, unspecified; E11.9 Type 2 diabetes mellitus without complications; E55.9 Vitamin D deficiency, unspecified; Z12.5 Encounter for screening for malignant neoplasm of prostate
CPT/HCPCS: 36415; 80053; 80061; 81001; 82043; 82306; 83036; 84153; 84443; 85025

== ENCOUNTER 2021-11-14 08:18 | Outpatient (REF) | payer OTHER, SELFPAY ==
[2021-11-14 08:32] LABS: MANUAL DIFF FLAG NO
[2021-11-14 09:01] LABS: Basophils Percent Auto 0.5 % (0-2); Eosinophils Absolute Auto 0.2 X10*3/uL (0.0-0.4); Eosinophils Percent Auto 3.2 % (0-4); Hemoglobin 12.1 g/dl (14.0-18.0); Imm Gran Abs Auto 0.03 X10*3/uL (0.00-0.03); Imm Gran Pct Auto 0.5 % (0.0-0.4); Lymphocytes Absolute Auto 1.4 X10*3/uL (1.2-4.9); Mean Corpuscular HGB Conc 31.8 g/dl (31.0-36.0); Mean Corpuscular Hemoglobin 28.2 pg (27.0-33.0); Mean Corpuscular Volume 88.6 fL (80.0-98.0); Mean Platelet Volume 10.8 fL (9.4-12.4); Monocytes Absolute Auto 0.5 X10*3/uL (0.1-1.2); Monocytes Percent Auto 7.7 % (2-11); Neutrophils Absolute Auto 4.5 x10*3/uL (2.0-8.3); Neutrophils Percent Auto 67.1 % (45-73); Platelet Count 278 X10*3/uL (160-400); Red Blood Count 4.29 X10*6/uL (4.60-5.80); Red Cell Distribution Width 14.3 % (11.0-16.0); White Blood Count 6.6 X10*3/uL (4.8-10.8)
[2021-11-14 09:10] LABS: Estimated Average Glucose 157 mg/dL; Hemoglobin A1c % 7.1 %
[2021-11-14 09:36] LABS: Alanine Aminotransferase 15 U/L (0-40); Alkaline Phosphatase 100 U/L (39-117); Anion Gap 11 (12-20); Aspartate Amino Transferase 16 U/L (5-37); Bilirubin Total 0.7 mg/dL (0.0-1.0); Blood Urea Nitrogen 12 mg/dL (9-16); Calcium 8.5 mg/dL (8.4-10.2); Carbon Dioxide 28 mmol/L (22-29); Chloride 104 mmol/L (96-108); Estimated Glomerular Filt Rate 55; Glucose Fasting 132 mg/dL (60-99); Potassium 4.9 mmol/L (3.3-5.1); Sodium 138 mmol/L (135-145)
[2021-11-14 09:58] LABS: TSH reflex Free T4 3.17 uIU/mL (0.32-4.0); Vitamin D 25-OH Total 44.3 ng/mL (>30)
[2021-11-14 10:43] LABS: Appearance Urine CLEAR; Color Urine YELLOW; Glucose Urine UA NEG (NEG); Leukocyte Esterase Urine NEG (NEG); Nitrite Urine NEG (NEG); PH 6.5 (5.0-8.0); Specific Gravity - Urine 1.015 (1.005-1.025); UACC Culture Trigger NO; Urine Blood 1+ (NEG); Urine Ketones NEG (NEG); Urine Protein NEG (NEG-TRACE)
[2021-11-14 11:13] LABS: Squamous Epithelial Cell Urine TRACE /LPF; WBC Urine 0-2 /HPF (0-4)
[2021-11-14 11:16] LABS: Creatinine Urine 110.01 mg/dL; Microalbum/Creatinine Ratio Ur 39.9 ug/mg cr
== END 2021-11-14 08:19 | disposition home or self-care (01) ==
LOC: HO.LAB 08:18
PROVIDERS: PCP Internal Medicine; Visit Provider Internal Medicine
DX: E78.00 Pure hypercholesterolemia, unspecified (principal); E11.9 Type 2 diabetes mellitus without complications; E55.9 Vitamin D deficiency, unspecified; I10 Essential (primary) hypertension
CPT/HCPCS: 36415; 80053; 81001; 82043; 82306; 83036; 84443; 85025

== ENCOUNTER 2021-11-22 14:33 | Outpatient (REF) | payer OTHER, SELFPAY ==
--- NOTE | ~2021-11-22 | US_ITS ---
EXAMINATION: US VENOUS ULTRASOUND WITH DOPPLER LOWER EXTREMITY, RIGHT CLINICAL INFORMATION: Right leg pain and swelling. COMPARISON: Right lower extremity venous ultrasound 02/22/2018 TECHNIQUE: Ultrasound of the deep veins is performed from the hip to the calf with compression sonography and color and pulse Doppler assessment. Spectral analysis with color-flow imaging is performed. FINDINGS: There is normal venous compression and respiratory variation and augmented flow. The visualized common femoral vein, superficial femoral vein, profunda femoral vein, popliteal vein, and the trifurcation region shows no evidence of deep venous thrombosis. Visualized portions of the posterior tibial vein are patent. Peroneal veins were not visualized due to lower leg edema/swelling. If the patient's symptoms persist, followup ultrasound in 5 days 7 days might be of value to exclude proximal propagation from a non-visualized calf vein. US/US venous duplex LE RT IMPRESSION: No DVT demonstrated in the right lower extremity.
== END 2021-11-22 14:34 | disposition home or self-care (01) ==
LOC: HO.US 14:33
PROVIDERS: PCP Internal Medicine; Visit Provider Internal Medicine
DX: M79.661 Pain in right lower leg (principal); M79.89 Other specified soft tissue disorders
CPT/HCPCS: 93971

== ENCOUNTER → 2021-12-09 13:24 | Outpatient (BNVA) | payer OTHER, SELFPAY | PROVIDERS: PCP Internal Medicine; Visit Provider Internal Medicine | DX: J44.9 Chronic obstructive pulmonary disease, unspecified (principal); J98.4 Other disorders of lung; J45.909 Unspecified asthma, uncomplicated; E66.9 Obesity, unspecified; Z68.41 Body mass index [BMI] 40.0-44.9, adult | CPT/HCPCS: 99212 ==

== ENCOUNTER 2022-03-14 08:07 | Outpatient (REF) | payer OTHER, SELFPAY ==
[2022-03-14 08:19] LABS: MANUAL DIFF FLAG NO
[2022-03-14 08:59] LABS: Basophils Percent Auto 0.4 % (0-2); Eosinophils Absolute Auto 0.2 X10*3/uL (0.0-0.4); Eosinophils Percent Auto 2.2 % (0-4); Hematocrit 36.3 % (42.0-52.0); Imm Gran Abs Auto 0.01 X10*3/uL (0.00-0.03); Imm Gran Pct Auto 0.1 % (0.0-0.4); Lymphocytes Absolute Auto 1.7 X10*3/uL (1.2-4.9); Lymphocytes Percent Auto 25.9 % (20-40); Mean Corpuscular HGB Conc 30.3 g/dl (31.0-36.0); Mean Corpuscular Hemoglobin 25.7 pg (27.0-33.0); Mean Corpuscular Volume 84.8 fL (80.0-98.0); Mean Platelet Volume 9.8 fL (9.4-12.4); Monocytes Absolute Auto 0.6 X10*3/uL (0.1-1.2); Monocytes Percent Auto 8.4 % (2-11); Neutrophils Absolute Auto 4.2 x10*3/uL (2.0-8.3); Platelet Count 224 X10*3/uL (160-400); Red Blood Count 4.28 X10*6/uL (4.60-5.80); White Blood Count 6.7 X10*3/uL (4.8-10.8)
[2022-03-14 09:27] LABS: Estimated Average Glucose 128 mg/dL; Hemoglobin A1c % 6.1 %
[2022-03-14 09:36] LABS: Appearance Urine Clear; Color Urine Yellow; Glucose Urine UA Negative (Negative); Leukocyte Esterase Urine Negative (Negative); Nitrite Urine Negative (Negative); PH 6.5 (5.0-9.0); Specific Gravity - Urine 1.015 (1.005-1.025); Urine Blood Negative (Negative); Urine Ketones Negative (Negative); Urine Protein Negative (Neg-Trace)
[2022-03-14 09:43] LABS: Alanine Aminotransferase 17 U/L (0-40); Alkaline Phosphatase 88 U/L (39-117); Anion Gap 17 (12-20); Aspartate Amino Transferase 16 U/L (5-37); Bilirubin Total 0.7 mg/dL (0.0-1.0); Blood Urea Nitrogen 18 mg/dL (9-16); Calcium 8.7 mg/dL (8.4-10.2); Carbon Dioxide 27 mmol/L (22-29); Chloride 101 mmol/L (96-108); Cholesterol 146 mg/dL; Estimated Glomerular Filt Rate 51; Glucose Fasting 96 mg/dL (60-99); HDL Cholesterol 29 mg/dL; LDL Cholesterol Calculated 85 mg/dl; Potassium 4.5 mmol/L (3.3-5.1); Sodium 140 mmol/L (135-145); Triglycerides 164 mg/dL
[2022-03-14 09:51] LABS: TSH reflex Free T4 5.22 uIU/mL (0.32-4.0); Vitamin D 25-OH Total 33.4 ng/mL (>30)
[2022-03-14 10:23] LABS: Creatinine Urine 107.72 mg/dL; Microalbum/Creatinine Ratio Ur 26.9 ug/mg cr
[2022-03-14 10:46] LABS: Free T4 (Free Thyroxine) 0.86 ng/dL (0.71-1.85)
== END 2022-03-14 08:08 | disposition home or self-care (01) ==
LOC: HO.LAB 08:07
PROVIDERS: PCP Internal Medicine; Visit Provider Internal Medicine
DX: E55.9 Vitamin D deficiency, unspecified (principal); E78.00 Pure hypercholesterolemia, unspecified; E11.9 Type 2 diabetes mellitus without complications; I10 Essential (primary) hypertension
CPT/HCPCS: 36415; 80053; 80061; 81003; 82043; 82306; 83036; 84439; 84443; 85025

== ENCOUNTER 2022-05-01 11:52 | Outpatient (REF) | payer OTHER, SELFPAY ==
--- NOTE | ~2022-05-01 | US_ITS ---
EXAMINATION: US RETROPERITONEAL LIMITED (RENAL ONLY) CLINICAL INFORMATION: Chronic kidney disease stage III. COMPARISON: None TECHNIQUE: Real-time imaging of the kidneys. Technically limited exam. FINDINGS: RIGHT KIDNEY: 9.0 x 4.0 x 3.9 cm (SAG x AP x TRV). Question of possibly increased parenchymal echogenicity although this may be due to the technical limitations of the exam. Renal cortical thickness is normal. No calculi or focal parenchymal lesions. No hydronephrosis. LEFT KIDNEY: 9.6 x 5.6 x 4.6 cm (SAG x AP x TRV). Question of possibly increased parenchymal echogenicity although this may be due to the technical limitations of the exam. Renal cortical thickness is normal. No renal calculi or hydronephrosis. Benign-appearing 1.2 cm renal cyst, no imaging follow-up recommended. US/US renal BI IMPRESSION: Question of possibly increased parenchymal echogenicity although this may be due to the technical limitations of the exam
== END 2022-05-01 11:53 | disposition home or self-care (01) ==
LOC: HO.US 11:52
PROVIDERS: Visit Provider Internal Medicine
DX: N18.30 Chronic kidney disease, stage 3 unspecified (principal)
CPT/HCPCS: 76775

== ENCOUNTER → 2022-06-09 12:56 | Outpatient (BNVA) | payer OTHER, SELFPAY | PROVIDERS: PCP Internal Medicine; Visit Provider Internal Medicine | DX: J44.9 Chronic obstructive pulmonary disease, unspecified (principal); J98.4 Other disorders of lung; C41.9 Malignant neoplasm of bone and articular cartilage, unspecified | CPT/HCPCS: 99212 ==

== ENCOUNTER 2022-06-20 12:05 | Outpatient (REF) | payer OTHER, SELFPAY ==
[2022-06-20 12:21] LABS: MANUAL DIFF FLAG NO
[2022-06-20 12:52] LABS: Basophils Percent Auto 0.5 % (0-2); Eosinophils Absolute Auto 0.2 X10*3/uL (0.0-0.4); Eosinophils Percent Auto 2.4 % (0-4); Hematocrit 42.6 % (42.0-52.0); Hemoglobin 13.8 g/dl (14.0-18.0); Imm Gran Abs Auto 0.05 X10*3/uL (0.00-0.03); Imm Gran Pct Auto 0.8 % (0.0-0.4); Lymphocytes Absolute Auto 1.4 X10*3/uL (1.2-4.9); Lymphocytes Percent Auto 21.2 % (20-40); Mean Corpuscular HGB Conc 32.4 g/dl (31.0-36.0); Mean Corpuscular Hemoglobin 28.2 pg (27.0-33.0); Mean Corpuscular Volume 86.9 fL (80.0-98.0); Mean Platelet Volume 11.2 fL (9.4-12.4); Monocytes Absolute Auto 0.5 X10*3/uL (0.1-1.2); Monocytes Percent Auto 7.2 % (2-11); Neutrophils Absolute Auto 4.5 x10*3/uL (2.0-8.3); Neutrophils Percent Auto 67.9 % (45-73); Platelet Count 175 X10*3/uL (160-400); Red Cell Distribution Width 18.6 % (11.0-16.0); White Blood Count 6.6 X10*3/uL (4.8-10.8)
[2022-06-20 13:18] LABS: Appearance Urine Clear; Color Urine Yellow; Glucose Urine UA Negative (Negative); Leukocyte Esterase Urine Negative (Negative); Nitrite Urine Negative (Negative); PH 7.5 (5.0-9.0); Specific Gravity - Urine 1.015 (1.005-1.025); UMIC TRIGGER UACC YES; Urine Blood Trace (Negative); Urine Ketones Negative (Negative); Urine Protein Negative (Neg-Trace)
[2022-06-20 13:21] LABS: Bacteria Urine None Seen (None Seen); Hyaline Casts Urine 0-2 /LPF (0-2); RBC Urine 0-2 /HPF (0-2); Squamous Epithelial Cell Urine 0-2 /HPF (0-2); WBC Urine 0-5 /HPF (0-5)
[2022-06-20 13:35] LABS: Alanine Aminotransferase 15 U/L (0-40); Albumin Level 3.9 g/dL (3.5-5.0); Alkaline Phosphatase 89 U/L (39-117); Anion Gap 14 (12-20); Aspartate Amino Transferase 14 U/L (5-37); Bilirubin Total 0.7 mg/dL (0.0-1.0); Blood Urea Nitrogen 12 mg/dL (9-16); Calcium 8.9 mg/dL (8.4-10.2); Carbon Dioxide 29 mmol/L (22-29); Chloride 104 mmol/L (96-108); Cholesterol 137 mg/dL; Estimated Glomerular Filt Rate 58; Glucose Fasting 96 mg/dL (60-99); HDL Cholesterol 29 mg/dL; Iron 48 mcg/dL (45-160); LDL Cholesterol Calculated 81 mg/dl; Percent Iron Saturation 17 % (15-50); Potassium 4.9 mmol/L (3.3-5.1); Sodium 142 mmol/L (135-145); Total Iron Binding Capacity 276 mcg/dL (228-428); Total Protein 6.6 g/dL (6.5-8.0); Triglycerides 136 mg/dL; Unsaturated Iron Binding 228 ug/dL
[2022-06-20 13:53] LABS: Creatinine Urine 109.52 mg/dL; Microalbum/Creatinine Ratio Ur 13.6 ug/mg cr
[2022-06-20 13:54] LABS: Free T4 (Free Thyroxine) 0.95 ng/dL (0.71-1.85); Thyroid Stimulating Hormone 1.78 uIU/mL (0.32-4.0); Vitamin D 25-OH Total 11.8 ng/mL (>30)
[2022-06-20 14:12] LABS: Estimated Average Glucose 117 mg/dL; Hemoglobin A1c % 5.7 %
== END 2022-06-20 12:06 | disposition home or self-care (01) ==
LOC: HO.LAB 12:05
PROVIDERS: PCP Internal Medicine; Visit Provider Internal Medicine
DX: I10 Essential (primary) hypertension (principal); E11.9 Type 2 diabetes mellitus without complications; E78.00 Pure hypercholesterolemia, unspecified; E55.9 Vitamin D deficiency, unspecified; R79.89 Other specified abnormal findings of blood chemistry; D50.9 Iron deficiency anemia, unspecified; R30.0 Dysuria
CPT/HCPCS: 36415; 80053; 80061; 81001; 82043; 82306; 83036; 83540; 84439; 84443; 85025

== ENCOUNTER 2022-09-18 09:09 | Outpatient (REF) | payer OTHER, SELFPAY ==
[2022-09-18 09:29] LABS: MANUAL DIFF FLAG NO
[2022-09-18 10:01] LABS: Basophils Percent Auto 0.6 % (0-2); Eosinophils Absolute Auto 0.3 X10*3/uL (0.0-0.4); Eosinophils Percent Auto 3.9 % (0-4); Hematocrit 39.6 % (42.0-52.0); Hemoglobin 12.8 g/dl (14.0-18.0); Imm Gran Abs Auto 0.03 X10*3/uL (0.00-0.03); Imm Gran Pct Auto 0.4 % (0.0-0.4); Lymphocytes Absolute Auto 1.7 X10*3/uL (1.2-4.9); Lymphocytes Percent Auto 23.9 % (20-40); Mean Corpuscular HGB Conc 32.3 g/dl (31.0-36.0); Mean Corpuscular Hemoglobin 30.3 pg (27.0-33.0); Mean Corpuscular Volume 93.8 fL (80.0-98.0); Mean Platelet Volume 10.9 fL (9.4-12.4); Monocytes Absolute Auto 0.6 X10*3/uL (0.1-1.2); Monocytes Percent Auto 7.9 % (2-11); Neutrophils Absolute Auto 4.4 x10*3/uL (2.0-8.3); Neutrophils Percent Auto 63.3 % (45-73); Platelet Count 186 X10*3/uL (160-400); Red Blood Count 4.22 X10*6/uL (4.60-5.80); Red Cell Distribution Width 15.1 % (11.0-16.0)
[2022-09-18 10:28] LABS: Appearance Urine Clear; Color Urine Yellow; Glucose Urine UA Negative (Negative); Leukocyte Esterase Urine Negative (Negative); Nitrite Urine Negative (Negative); UMIC TRIGGER UACC YES; Urine Blood Trace (Negative); Urine Ketones Negative (Negative); Urine Protein Negative (Neg-Trace)
[2022-09-18 10:34] LABS: Bacteria Urine None Seen (None Seen); Hyaline Casts Urine 0-2 /LPF (0-2); RBC Urine 0-2 /HPF (0-2); Squamous Epithelial Cell Urine 0-2 /HPF (0-2); WBC Urine 0-5 /HPF (0-5)
[2022-09-18 10:35] LABS: Estimated Average Glucose 120 mg/dL; Hemoglobin A1c % 5.8 %
[2022-09-18 10:39] LABS: Alanine Aminotransferase 16 U/L (0-40); Albumin Level 3.8 g/dL (3.5-5.0); Alkaline Phosphatase 85 U/L (39-117); Anion Gap 13 (12-20); Aspartate Amino Transferase 15 U/L (5-37); Bilirubin Total 0.9 mg/dL (0.0-1.0); Blood Urea Nitrogen 9 mg/dL (9-16); Calcium 8.9 mg/dL (8.4-10.2); Carbon Dioxide 28 mmol/L (22-29); Chloride 105 mmol/L (96-108); Cholesterol 125 mg/dL; Estimated Glomerular Filt Rate > 60; Glucose Fasting 102 mg/dL (60-99); HDL Cholesterol 30 mg/dL; LDL Cholesterol Calculated 67 mg/dl; Potassium 4.2 mmol/L (3.3-5.1); Sodium 142 mmol/L (135-145); Total Protein 6.3 g/dL (6.5-8.0); Triglycerides 140 mg/dL
[2022-09-18 10:57] LABS: Vitamin D 25-OH Total 81.9 ng/mL (>30)
[2022-09-18 11:28] LABS: Creatinine Urine 110.88 mg/dL; Microalbum/Creatinine Ratio Ur 15.3 ug/mg cr
[2022-09-18 14:35] LABS: Free T4 (Free Thyroxine) 0.84 ng/dL (0.71-1.85)
== END 2022-09-18 09:10 | disposition home or self-care (01) ==
LOC: HO.LAB 09:09
PROVIDERS: PCP Internal Medicine; Visit Provider Internal Medicine
DX: I10 Essential (primary) hypertension (principal); E78.00 Pure hypercholesterolemia, unspecified; E11.9 Type 2 diabetes mellitus without complications; E55.9 Vitamin D deficiency, unspecified; R30.0 Dysuria
CPT/HCPCS: 36415; 80053; 80061; 81001; 81003; 82043; 82306; 83036; 84439; 84443; 85025

== ENCOUNTER 2022-10-29 09:27 | Outpatient (REF) | payer OTHER, SELFPAY ==
[2022-10-29 09:48] LABS: MANUAL DIFF FLAG NO
[2022-10-29 10:09] LABS: Basophils Percent Auto 0.5 % (0-2); Eosinophils Absolute Auto 0.2 X10*3/uL (0.0-0.4); Eosinophils Percent Auto 3.2 % (0-4); Hematocrit 40.4 % (42.0-52.0); Hemoglobin 13.1 g/dl (14.0-18.0); Imm Gran Abs Auto 0.01 X10*3/uL (0.00-0.03); Imm Gran Pct Auto 0.2 % (0.0-0.4); Lymphocytes Absolute Auto 1.6 X10*3/uL (1.2-4.9); Lymphocytes Percent Auto 26.3 % (20-40); Mean Corpuscular HGB Conc 32.4 g/dl (31.0-36.0); Mean Corpuscular Hemoglobin 30.3 pg (27.0-33.0); Mean Corpuscular Volume 93.3 fL (80.0-98.0); Mean Platelet Volume 10.8 fL (9.4-12.4); Monocytes Absolute Auto 0.5 X10*3/uL (0.1-1.2); Monocytes Percent Auto 7.9 % (2-11); Neutrophils Absolute Auto 3.7 x10*3/uL (2.0-8.3); Neutrophils Percent Auto 61.9 % (45-73); Platelet Count 174 X10*3/uL (160-400); Red Blood Count 4.33 X10*6/uL (4.60-5.80); Red Cell Distribution Width 13.8 % (11.0-16.0)
[2022-10-29 10:22] LABS: Appearance Urine Clear; Color Urine Yellow; Glucose Urine UA Negative (Negative); Leukocyte Esterase Urine Negative (Negative); Nitrite Urine Negative (Negative); PH 6.5 (5.0-9.0); UMIC TRIGGER UA YES; Urine Blood Trace (Negative); Urine Ketones Negative (Negative); Urine Protein Negative (Neg-Trace)
[2022-10-29 10:24] LABS: Bacteria Urine None Seen (None Seen); Hyaline Casts Urine 0-2 /LPF (0-2); RBC Urine 0-2 /HPF (0-2); Squamous Epithelial Cell Urine 0-2 /HPF (0-2); WBC Urine 0-5 /HPF (0-5)
[2022-10-29 11:23] LABS: Anion Gap 15 (12-20); Blood Urea Nitrogen 11 mg/dL (9-16); Calcium 9.2 mg/dL (8.4-10.2); Carbon Dioxide 26 mmol/L (22-29); Chloride 105 mmol/L (96-108); Estimated Glomerular Filt Rate 57; Potassium 4.2 mmol/L (3.3-5.1); Sodium 142 mmol/L (135-145)
== END 2022-10-29 09:28 | disposition home or self-care (01) ==
LOC: HO.LAB 09:27
PROVIDERS: PCP Internal Medicine; Visit Provider Internal Medicine Hypertension Specialist
DX: N18.31 Chronic kidney disease, stage 3a (principal)
CPT/HCPCS: 36415; 80051; 81001; 82310; 82565; 84520; 85025

== ENCOUNTER 2022-12-08 13:01 | Outpatient (AMB) | payer OTHER, SELFPAY ==
[2022-12-08 13:09] VITALS: BP 110/70; PULSE 59; O2SAT 97; BMI 38.5
--- NOTE | 2022-12-08 13:09 | A.OFFVIS_ITS ---
Intake Vital Signs 12/08/22 13:09 Height 5 ft 8 in Weight 253 lb BMI 38.5 BP 110/70 Blood Pressure Location Lt brachial Position Standing Pulse 59 Pulse Source Pulse Oximeter Pulse Oximetry (%) 97 Oxygen Delivery Method Room Air Intake Visit Reasons: COPD Intake Note: pt is here for follow up and states he is doing fine without the humidity. Stays in with heat. pt needs refill on proair [employer] Underwriter Required: No Allergies cat dander [CATS] Allergy (Unknown, Verified 12/08/22 13:47) UNKNOWN dog dander [DOGS] Allergy (Unknown, Verified 12/08/22 13:47) UNKNOWN mold [MOLD] Allergy (Unknown, Verified 12/08/22 13:47) UNKNOWN pollen extracts [POLLEN] Allergy (Unknown, Verified 12/08/22 13:47) RUNNY NOSE Medication List - Last Reconciled 12/08/22 by Bryant Correa MD atenolol 25 mg PO DAILY atorvastatin 40 mg PO DAILY 90 days cholecalciferol (vitamin D3) 50 mcg PO DAILY 90 days escitalopram oxalate 20 mg PO QAM ferrous sulfate (Feosol) 325 mg PO DAILY 30 days insulin glargine (Lantus Solostar U-100 Insulin) 20 units (0.2 mL) subcut QPM 30 days lorazepam 0.5 mg PO BID PRN 15 days metformin 1,000 mg PO BID 90 days montelukast 10 mg PO DAILY omeprazole 40 mg PO DAILY 90 days pen needle, diabetic (BD Ultra-Fine Estrella Pen Needle) As directed tamsulosin 0.4 mg PO BEDTIME 30 days Ventolin HFA 90 mcg/actuation (albuterol sulfate) 2 puffs PO Q4H PRN NS Do you need a note to return to daycare/school/sports/work: No HPI COPD HPI Details Jasbir comes after 6 months for follow-up. . He is doing fairly well He remains overweight but trying to lose a few lb every month. He has intermittent cough which is not. Very productive He has no attacks of wheezing but does get short of breath if he walks up hill or climbs stairs. Left chest. Wall pain is relatively controlled [facility] Medical History Asthma Benign essential hypertension Chondrosarcoma Chronic kidney disease, stage III (moderate) Chronic restrictive lung disease COPD (chronic obstructive pulmonary disease) COPD (chronic obstructive pulmonary disease) Diabetes mellitus GERD without esophagitis Hyperlipidemia Obesity (BMI 30-39.9) Pulmonary emboli Pure hypercholesterolemia Restrictive lung disease Vitamin D deficiency Surgical History H/O tooth extraction History of inguinal hernia repair Hx of exploratory thoracotomy Family History Father Hypertension Kidney failure, acute Mother Lung cancer Family/Other Diabetes Social History Housing: House Alcohol intake: never Patient Tobacco Use Status: Never used Tobacco e-Cigarette/Vaping Use: Never Used Second Hand Smoke Exposure: Yes service: No Current occupational status: unemployed Cognitive needs: No Hearing needs: No Vision needs: Yes Review of Systems Const All systems reviewed & are unremarkable except as noted in HPI and below Eyes Reports no additional complaints ENT Reports nasal congestion (Mild off and on) Card Denies chest pain, Denies irregular heart rhythm, Denies leg edema and Reports dyspnea on exertion Resp Reports as per HPI and Reports dyspnea on exertion GI Reports heartburn (Being treated for GERD with omeprazole) Reports no additional complaints Musc Reports back pain (Mild) and Reports other (Inter stitch sided chest wall pain) Skin/Breast Reports system reviewed and no additional complaints, except as documented Neuro Reports no additional complaints Psych Reports depression (Treated with med) Endo Reports other (Type 2 diabetes being treated with metformin) Physical Exam Vital Signs: Last Vital Signs Pulse 59 12/08/22 13:09 BP 110/70 12/08/22 13:09 Pulse Ox 97 12/08/22 13:09 Oxygen Delivery Method Room Air 12/08/22 13:09 BMI result Body Mass Index 38.5 Const General: cooperative, no acute distress, alert and awake Orientation/consciousness: patient oriented x3 HEENT Head: Yes normal to inspection General nose exam: No nasal polyps present and No nasal discharge present Face and sinus: Yes sinuses nontender Mouth: oropharynx normal Throat: Yes posterior oropharynx normal Eyes General: appearance normal, both eyes and all related structures Neck Neck: Yes normal visual inspection and Yes no JVD Thyroid: Thyroid normal Chest Other: Left chest wall abnormality status post remote surgery Chest palpation & inspection: normal inspection of the chest (Extensive scars on the left lower chest wall from previous surgery), normal palpation of entire chest wall and no tenderness Resp Other: Breath sounds are markedly diminished over the left lower lung . Percussion note is resonant on the right side, with decreased breath sounds, but no wheezes or rhonchi are heard. Effort & Inspection: normal respiratory effort, able to speak in complete sentences and not labored Auscultation: clear to auscultation bilaterally, no crackles, no rales, no rhonchi and no wheezes Cardio Palpation: normal PMI Rate: regular rate Rhythm: regular rhythm Heart sounds: S1 normal heart sound present and S2 normal heart sound present Peripheral pulses: Peripheral pulses 2+ throughout GI Inspection: Yes normal to inspection Palpation (GI): Soft to palpation, nontender, No hepatosplenomegaly present and no masses Auscultation: normal bowel sounds Back/Spine/Pelvis Thoracic/Lumbar Spine: thoracic and lumbar spine normal to inspection and thoraco-lumbar ROM limited Skin General skin exam: no rashes or lesions noted Neuro General: patient oriented x3 Cranial nerves: Yes CN's II-XII intact bilaterally Extrem General: Yes normal to inspection and No edema Psych Appearance: grossly normal and well kempt Speech and movement: Normal speech and movement present Assessment & Plan Assessment & Plan (1) Obesity (BMI 30-39.9): Comment: He remains grossly overweight. Denies symptoms of sleep apnea. Trying to lose weight on his own with diet and exercise. However he is not able to do much exercise, as he cannot walk much. 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 GROSS OBESITY ALSO CONTRIBUTES TO RESTRICTIVE DISORDER. I ADVISED HIM TO DO DEEP BREATHING EXERCISES 2 OR 3 TIMES A DAY AT LEAST. AND KEEP HIS WEIGHT UNDER CONTROL IF POSSIBLE, Code(s): J98.4 - Other disorders of lung (3) COPD (chronic obstructive pulmonary disease): Comment: THE PULMONARY FUNCTION TEST DID NOT SHOW CHRONIC OBSTRUCTIVE PULMONARY DISEASE. IF AT ALL IT IS MILD. PATIENT HAS INTERMITTENT COUGH WHICH MAY BE DUE TO UPPER AIRWAY ALLERGIES OR MILD BRONCHIAL ASTHMA. TX : EXPLAINED TO HIM IN DETAIL. OK to USE PROAIR 2 PUFFS Q 6 HOURS P.R.N., BUT HE IS CAUTIONED THAT HE SHOULD NOT USE TOO FREQUENTLY. Code(s): J44.9 - Chronic obstructive pulmonary disease, unspecified (4) Asthma: Comment: See above under Asthma /COPD Code(s): J45.909 - Unspecified asthma, uncomplicated Coding Level of Care Code Est Pt Level 3 (11561) Diagnoses Obesity (BMI 30-39.9) E66.9 Chronic restrictive lung disease J98.4 COPD (chronic obstructive pulmonary disease) J44.9 Asthma J45.909
== END 2022-12-08 13:47 | disposition home or self-care (01) ==
PROVIDERS: PCP Internal Medicine; Visit Provider Internal Medicine
DX: J44.9 Chronic obstructive pulmonary disease, unspecified (principal); J98.4 Other disorders of lung; E66.9 Obesity, unspecified; Z68.38 Body mass index [BMI] 38.0-38.9, adult
CPT/HCPCS: 99213

== ENCOUNTER → 2022-12-08 13:01 | Outpatient (BNVA) | payer OTHER, SELFPAY | PROVIDERS: PCP Internal Medicine; Visit Provider Internal Medicine | DX: J44.9 Chronic obstructive pulmonary disease, unspecified (principal); J98.4 Other disorders of lung; J45.909 Unspecified asthma, uncomplicated; I26.99 Other pulmonary embolism without acute cor pulmonale; E66.9 Obesity, unspecified; Z68.38 Body mass index [BMI] 38.0-38.9, adult; Z79.4 Long term (current) use of insulin; Z79.899 Other long term (current) drug therapy | CPT/HCPCS: 99212 ==

== ENCOUNTER 2022-12-09 10:16 | Outpatient (REF) | payer OTHER, SELFPAY ==
[2022-12-09 10:46] LABS: MANUAL DIFF FLAG NO
[2022-12-09 11:13] LABS: Basophils Percent Auto 0.7 % (0-2); Eosinophils Absolute Auto 0.2 X10*3/uL (0.0-0.4); Eosinophils Percent Auto 3.4 % (0-4); Hematocrit 42.3 % (42.0-52.0); Hemoglobin 13.6 g/dl (14.0-18.0); Imm Gran Abs Auto 0.02 X10*3/uL (0.00-0.03); Imm Gran Pct Auto 0.3 % (0.0-0.4); Lymphocytes Absolute Auto 1.6 X10*3/uL (1.2-4.9); Lymphocytes Percent Auto 26.4 % (20-40); Mean Corpuscular HGB Conc 32.2 g/dl (31.0-36.0); Mean Corpuscular Hemoglobin 29.1 pg (27.0-33.0); Mean Corpuscular Volume 90.4 fL (80.0-98.0); Mean Platelet Volume 10.8 fL (9.4-12.4); Monocytes Absolute Auto 0.5 X10*3/uL (0.1-1.2); Monocytes Percent Auto 8.3 % (2-11); Neutrophils Absolute Auto 3.6 x10*3/uL (2.0-8.3); Neutrophils Percent Auto 60.9 % (45-73); Platelet Count 174 X10*3/uL (160-400); Red Blood Count 4.68 X10*6/uL (4.60-5.80); Red Cell Distribution Width 13.4 % (11.0-16.0); White Blood Count 5.9 X10*3/uL (4.8-10.8)
[2022-12-09 11:19] LABS: Estimated Average Glucose 120 mg/dL; Hemoglobin A1C 141.7081 umol/L; Hemoglobin A1c % 5.8 %
[2022-12-09 12:41] LABS: Alanine Aminotransferase 14 U/L (0-40); Albumin Level 3.9 g/dL (3.5-5.0); Alkaline Phosphatase 83 U/L (39-117); Anion Gap 17 (12-20); Aspartate Amino Transferase 14 U/L (5-37); Bilirubin Total 0.8 mg/dL (0.0-1.0); Blood Urea Nitrogen 15 mg/dL (9-16); Calcium 9.6 mg/dL (8.4-10.2); Carbon Dioxide 24 mmol/L (22-29); Chloride 106 mmol/L (96-108); Cholesterol 106 mg/dL; Estimated Glomerular Filt Rate 58; Free T4 (Free Thyroxine) 0.77 ng/dL (0.71-1.85); Glucose Fasting 88 mg/dL (60-99); HDL Cholesterol 29 mg/dL; LDL Cholesterol Calculated 47 mg/dl; Potassium 4.4 mmol/L (3.3-5.1); Sodium 143 mmol/L (135-145); Thyroid Stimulating Hormone 3.45 uIU/mL (0.32-4.0); Total Protein 7.2 g/dL (6.5-8.0); Triglycerides 151 mg/dL; Vitamin D 25-OH Total 93.3 ng/mL (>30)
[2022-12-09 13:07] LABS: Appearance Urine Clear; Color Urine Yellow; Glucose Urine UA Negative (Negative); Leukocyte Esterase Urine Negative (Negative); Nitrite Urine Negative (Negative); Specific Gravity - Urine 1.015 (1.005-1.025); UMIC TRIGGER UACC YES; Urine Blood Trace (Negative); Urine Ketones Negative (Negative); Urine Protein Negative (Neg-Trace)
[2022-12-09 13:11] LABS: Bacteria Urine None Seen (None Seen); Hyaline Casts Urine 0-2 /LPF (0-2); Squamous Epithelial Cell Urine 0-2 /HPF (0-2); WBC Urine 0-5 /HPF (0-5)
[2022-12-09 13:53] LABS: Creatinine Urine 104.92 mg/dL; Microalbum/Creatinine Ratio Ur 11.4 ug/mg cr
== END 2022-12-09 10:17 | disposition home or self-care (01) ==
LOC: HO.LAB 10:16
PROVIDERS: PCP Internal Medicine; Visit Provider Internal Medicine
DX: E55.9 Vitamin D deficiency, unspecified (principal); R30.0 Dysuria; R79.89 Other specified abnormal findings of blood chemistry; E11.9 Type 2 diabetes mellitus without complications; E78.00 Pure hypercholesterolemia, unspecified; I10 Essential (primary) hypertension
CPT/HCPCS: 36415; 80053; 80061; 81001; 81003; 82043; 82306; 83036; 84439; 84443; 85025

== ENCOUNTER 2022-12-19 13:46 | Outpatient (AMB) | payer OTHER, SELFPAY ==
[2022-12-19 14:06] VITALS: BP 120/72; PULSE 60; O2SAT 93; BMI 38.5
--- NOTE | 2022-12-19 14:06 | A.OFFPC_ITS ---
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: No Accompanied by: Self / Same As Patient Allergies cat dander [CATS] Allergy (Unknown, Verified 12/19/22 15:15) UNKNOWN dog dander [DOGS] Allergy (Unknown, Verified 12/19/22 15:15) UNKNOWN mold [MOLD] Allergy (Unknown, Verified 12/19/22 15:15) UNKNOWN pollen extracts [POLLEN] Allergy (Unknown, Verified 12/19/22 15:15) RUNNY NOSE Medication List - Last Reconciled 12/19/22 by Bon Arvizu MD atenolol 25 mg PO DAILY atorvastatin 40 mg PO DAILY 90 days cholecalciferol (vitamin D3) 50 mcg PO DAILY 90 days escitalopram oxalate 20 mg PO QAM ferrous sulfate (Feosol) 325 mg PO DAILY 30 days insulin glargine (Lantus Solostar U-100 Insulin) 20 units (0.2 mL) subcut QPM 30 days lorazepam 0.5 mg PO BID PRN 15 days metformin 1,000 mg PO BID 90 days montelukast 10 mg PO DAILY omeprazole 40 mg PO DAILY 90 days pen needle, diabetic (BD Ultra-Fine Estrella Pen Needle) As directed tamsulosin 0.4 mg PO BEDTIME 30 days Ventolin HFA 90 mcg/actuation (albuterol sulfate) 2 puffs PO Q4H PRN NS Tobacco use date assessed: 12/19/22 Dental Screening Dental Screen Date: 12/19/22 Did you have a dental visit in the last 12 months?: No Did you have a dental problem in the last 6 months where you did not have access to dental care?: No Was dental information given to patient?: No HPI DM, hyperlipidemia, HTN, BPH, CKD HPI Details Patient comes in today for his follow up visit States that he feels okay although he continues to experience increased anxiety often Is presently taking Escitalopram at 20 mg QD for a while now and he does not feel that his medication is working well enough to control his anxiety Adds that he has not had any Lorazepam tablets to take in a while now and would like to get this refilled if possible He denies any headaches or dizziness Denies any chest pains, no SOB No nausea/vomiting, no abdominal pain No change in bowel habits noted Had his follow up labs done a couple of weeks ago - to discuss his results [facility] Medical History Asthma Benign essential hypertension Chondrosarcoma Chronic kidney disease, stage III (moderate) Chronic restrictive lung disease COPD (chronic obstructive pulmonary disease) COPD (chronic obstructive pulmonary disease) Diabetes mellitus GERD without esophagitis Hyperlipidemia Obesity (BMI 30-39.9) Pulmonary emboli Pure hypercholesterolemia Restrictive lung disease Vitamin D deficiency Surgical History H/O tooth extraction History of inguinal hernia repair Hx of exploratory thoracotomy Family History Father Hypertension Kidney failure, acute Mother Lung cancer Family/Other Diabetes Social History Housing: House Alcohol intake: never Patient Tobacco Use Status: Never used Tobacco e-Cigarette/Vaping Use: Never Used Second Hand Smoke Exposure: Yes service: No Current occupational status: unemployed Cognitive needs: No Hearing needs: No Vision needs: Yes Questionnaire PHQ-9 Over the last 2 weeks, how often have you been bothered by any of the following problems? 1. Little interest or pleasure in doing things: not at all 2. Feeling down, depressed, or hopeless: not at all 3. Trouble falling or staying asleep, or sleeping too much: not at all 4. Feeling tired or having little energy: not at all 5. Poor appetite or overeating: not at all 6. Feeling bad about yourself - or that you are a failure or have let yourself or your family down: not at all 7. Trouble concentrating on things, such as reading the newspaper or watching television: not at all 8. Moving or speaking so slowly that other people could have noticed. Or the opposite - being so fidgety or restless that you have been moving around a lot more than usual: not at all 9. Thoughts that you would be better off or of hurting yourself in some way: not at all Total score: 0 Depression Screening Interpretation: Negative [id number] - PHQ-9 Billing: Yes Source: Developed by Drs. Tashi Michael, Ambrosio Merino and colleagues, with an educational maría elena from [employer]. Thrive Questionnaire Date Thrive assessed: 12/19/22 I am a: Patient What is your living situation today?: I have a steady place to live Within the past 12 months, did the food you bought not last and you didn't have the money to get more?: Never true Within the past 12 months, did you worry whether your food would run out before you got money to buy more?: Never true Do you have trouble paying for medicines?: No Do you have trouble getting transportation to medical appointments?: No Do you have trouble paying your heating and electricity bill?: No Do you have trouble taking care of your child, family member or friend?: No Do you have trouble with day-to-day activities such as bathing, preparing meals, shopping, managing finances, etc.?: No Are you currently unemployed and looking for a job?: No Are you interested in more education?: No Currently or been in a relationship where the following occur: no concerns reported AUDIT C Alcohol Use Questionnaire (AUDIT-C) 1. How often do you have a drink containing alcohol?: Never 3. How often do you have six or more drinks on one occasion?: Never Total Score: 0 Score Reviewed/Action Taken: Yes CATIE-7 AMB Questionnaire CATIE-7 Date CATIE - 7 assessed: 12/19/22 Feeling nervous, anxious, or on edge: 0 = Not at all Not being able to stop or control worryin = Not at all Worrying too much about different things: 0 = Not at all Trouble relaxin = Not at all Being so restless that it is hard to sit still: 0 = Not at all Becoming easily annoyed or irritable: 0 = Not at all Feeling afraid as if something awful might happen: 0 = Not at all Total CATIE-7 score (0-4 normal; 5-9 mild; 10-14 moderate; 15-21 severe): 0 Source: Developed by Laura Wharton Kurt Kroenke and colleagues, with an educational maría elena from [employer]. Review of Systems Const Denies chills, Denies fatigue, Denies fever(s) and Denies headache(s) ENT Denies dysphagia, Denies dizziness, Denies otalgia, Denies headache(s), Denies neck pain, Denies odynophagia and Denies sore throat Card Denies chest pain, Denies rapid heart rate and Denies dyspnea Resp Denies cough, Denies dyspnea and Denies wheezing GI Denies abdominal pain, Denies constipation, Denies dysphagia, Denies heartburn, Denies diarrhea, Denies nausea, Denies odynophagia and Denies vomiting Denies dysuria, Reports nocturia (improving) and Reports urinary frequency (improving) Musc Denies neck pain Neuro Denies dizziness and Denies headache(s) Psych Reports anxiety (often) Endo Denies fatigue Edu/Lymph Details: (+) swelling of the right leg and of both feet Aller/Immun Denies wheezing Physical exam (Primary Care) Vital Signs: Last Vital Signs Pulse 60 12/19/22 14:06 BP 120/72 12/19/22 14:06 Pulse Ox 93 12/19/22 14:06 Oxygen Delivery Method Room Air 12/19/22 14:06 BMI result Body Mass Index 38.5 Tobacco/Smoking Status: Tobacco use Status Tobacco use date assessed 12/19/22 12/19/22 14:13 Patient Tobacco Use Status Never used Tobacco 12/19/22 14:13 e-Cigarette/Vaping Use Never Used 12/19/22 14:13 PHQ-9: PHQ-9 Score PHQ-9: Total score 0 12/19/22 15:16 Depression Screening Interpretation: Negative Thrive Assessment: Date of Thrive Assessment Date Thrive assessed 12/19/22 12/19/22 14:13 Currently or been in a relationship where the following occur: no concerns rep orted Const General: no acute distress and alert HENMT Ears: TM's normal bilaterally and EAC's normal Throat: Yes posterior oropharynx normal and Yes tonsils normal (no TP congestion) Neck Neck: Yes no lymphadenopathy and Yes supple Resp Auscultation: clear to auscultation bilaterally, no rales and no wheezes Cardio Rate: regular rate Rhythm: regular rhythm Heart sounds: no murmurs GI Palpation (GI): Soft to palpation and nontender Auscultation: normal bowel sounds Extrem General: Yes no clubbing, cyanosis or edema Results Reviewed Results Reviewed: Laboratory Tests 12/09/22 12/09/22 12/09/22 10:42 10:42 10:44 WBC 5.9 Hgb 13.6 L Hct 42.3 Plt Count 174 Sodium Potassium Creatinine Estimated GFR Fasting Glucose Hemoglobin A1c % Calcium AST ALT Triglycerides Cholesterol LDL Cholesterol, Calc HDL Cholesterol 25-OH Vitamin D Total TSH Free T4 Ur Specific [place] 1.015 Urine Protein Negative Urine Glucose (UA) Negative Urine Blood Trace H Microalb/Creat Ratio 11.4 12/09/22 12/09/22 10:44 10:44 WBC Hgb Hct Plt Count Sodium 143 Potassium 4.4 Creatinine 1.29 Estimated GFR 58 Fasting Glucose 88 Hemoglobin A1c % 5.8 Calcium 9.6 AST 14 ALT 14 Triglycerides 151 Cholesterol 106 LDL Cholesterol, Calc 47 HDL Cholesterol 29 25-OH Vitamin D Total 93.3 TSH 3.45 Free T4 0.77 Ur Specific [place] Urine Protein Urine Glucose (UA) Urine Blood Microalb/Creat Ratio Assessment and Plan Assessment & Plan (1) Diabetes mellitus: Code(s): E11.9 - Type 2 diabetes mellitus without complications Qualifiers: Diabetes mellitus complication status: with hyperglycemia 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 insulin use: without [place] [facility] use Diabetes mellitus type: type 2 Qualified Code(s): E11.65 - Type 2 diabetes mellitus with hyperglycemia Plan: HgbA1c was unchanged at 5.8% on his labs done a couple of weeks ago (was also at 5.8% a few months ago) - goal is <7.0% Reinforced diabetic diet Continue Lantus 20 units QD and Metformin 1000 mg BID (2) Pure hypercholesterolemia: Code(s): E78.00 - Pure hypercholesterolemia, unspecified Plan: Results of his labs done a couple of weeks ago reviewed and discussed with patient Reinforced low cholesterol diet Continue Atorvastatin 40 mg QD Will recheck his labs in 3 months for follow-up (3) Benign essential hypertension: Code(s): I10 - Essential (primary) hypertension Plan: Reinforced low sodium diet - goal is systolic BP of 120 mm or less Continue Atenolol 25 mg QD (4) Chronic kidney disease, stage III (moderate): Code(s): N18.30 - Chronic kidney disease, stage 3 unspecified Qualifiers: Chronic kidney disease stage 3 subtype: stage 3a (GFR 45-59) Qualified Code(s): N18.31 - Chronic kidney disease, stage 3a Plan: His serum creatinine and GFR have remained steady and are mostly unchanged on his recent labs Renal US done last year came back grossly normal Follow up with nephrology as scheduled Will continue to monitor his renal function regularly (5) Vitamin D deficiency: Code(s): E55.9 - Vitamin D deficiency, unspecified Plan: Corrected - continue Vitamin D3 2000 units QD (6) Elevated TSH: Code(s): R79.89 - Other specified abnormal findings of blood chemistry Plan: His serum TSH and free T4 level are now both normal on his recent labs; patient remains clinically euthyroid Will continue to monitor his TFTs regularly (7) COPD (chronic obstructive pulmonary disease): Code(s): J44.9 - Chronic obstructive pulmonary disease, unspecified Qualifiers: COPD type: unspecified COPD Qualified Code(s): J44.9 - Chronic obstructive pulmonary disease, unspecified Plan: Continue ProAir HFA 2 inhalations every 6 hours PRN; was reassured by pulmonary that his PFT done recently came back showing only mild COPD Used to be on Trelegy but his insurance declined to continue covering his Rx Follow up with pulmonary as scheduled (8) Palpitations: Code(s): R00.2 - Palpitations Plan: States that his symptoms have improved/subsided lately, and that these were most likely related to his anxiety as his symptoms supposedly resolved with some Ativan in the ER last year EKG done in the ER back then came out normal = NSR, HR = 81 bpm, with no acute ST-T wave changes Holter monitor, echocardiogram and cardiac event monitor done (by cardiology) over the past few months have also all been normal (9) Urinary frequency: Code(s): R35.0 - Frequency of micturition Plan: Patient states that his urinary frequency has improved a lot (though not completely) with Tamsulosin Serum PSA level was normal when checked a few months ago Continue Tamsulosin 0.4 mg Q HS To consider referral to urology if his urinary frequency or symptoms continue to persist or progress (10) Anxiety: Code(s): F41.9 - Anxiety disorder, unspecified Plan: Continue Escitalopram to 20 mg QD and Lorazepam 0.5 mg BID PRN Will start additional on Bupropion XL 150 mg Q AM (11) Obesity (BMI 30-39.9): Comment: He remains grossly overweight. Denies symptoms of sleep apnea. Trying to lose weight on his own with diet and exercise. However he is not able to do much exercise, as he cannot walk much. Code(s): E66.9 - Obesity, unspecified Plan: Reinforced diet/exercise as tolerated/lose weight Plan Follow up in 3 months Orders: Orders Comprehensive [place]. Panel Fast 3 Months E78.00 - Pure hypercholesterolemia, unspecified Complete Blood Count Auto Diff 3 Months I10 - Essential (primary) hypertension Lipid Panel 3 Months E78.00 - Pure hypercholesterolemia, unspecified Hemoglobin A1c 3 Months E11.9 - Type 2 diabetes mellitus without complications Microalbumin, Random (w Creat) 3 Months E11.9 - Type 2 diabetes mellitus without complications TSH reflex Free T4 3 Months E78.00 - Pure hypercholesterolemia, unspecified UA CC w/rflx Micro + Cult 3 Months R30.0 - Dysuria Vitamin D 25-OH Total 3 Months E55.9 - Vitamin D deficiency, unspecified Medications: New bupropion HCl 150 mg PO QAM 30 tabs 3RF 30 days Refilled lorazepam Take ONLY NEEDED for increased anxiety 0.5 mg PO BID PRN 30 tabs 0RF anxiety 15 days Coding Level of Care Code Est Pt Level 4 (73475) Diagnoses Diabetes mellitus E11.65 Diabetes mellitus complication status: with hyperglycemia 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
== END 2022-12-19 15:22 | disposition home or self-care (01) ==
PROVIDERS: PCP Internal Medicine; Visit Provider Internal Medicine
DX: E11.22 Type 2 diabetes mellitus with diabetic chronic kidney disease (principal); E11.65 Type 2 diabetes mellitus with hyperglycemia; I12.9 Hypertensive chronic kidney disease with stage 1 through stage 4 chronic kidney disease, or unspecified chronic kidney disease; N18.31 Chronic kidney disease, stage 3a; E55.9 Vitamin D deficiency, unspecified; E78.00 Pure hypercholesterolemia, unspecified; R79.89 Other specified abnormal findings of blood chemistry; J44.9 Chronic obstructive pulmonary disease, unspecified; R00.2 Palpitations; R35.0 Frequency of micturition; F41.9 Anxiety disorder, unspecified; E66.9 Obesity, unspecified
CPT/HCPCS: 99214

== ENCOUNTER 2023-01-09 09:27 | Emergency (ER) | payer OTHER, SELFPAY ==
[2023-01-09 09:34] VITALS: BP 143/71; PULSE 90; RESP 18; TEMP 36.8; O2SAT 97; BMI 38.0
[2023-01-09 10:01] LABS: COVID-19 Test Positive (Negative); IDNOW Serial# 08D9AD1C; IDNOW Serial# BCCEAD1C; Strep A Nucleic Acid Negative (Negative)
--- NOTE | 2023-01-09 10:26 | ED.URI ---
HPI - URI/Sore Throat General Chief Complaint: Upper Respiratory Symptoms Stated Complaint: chills, sore throat, cough Time Seen by Provider: 01/09/23 10:09 Source: patient Mode of arrival: ambulatory Limitations: no limitations History of Present Illness HPI Narrative: 52-year-old male with history of obesity, COPD/ asthma, CKD, history of bilateral PE's in 2016 no longer on anticoagulation, hx chest wall chrondrosarcoma in 2019, HLD who presents to the ER for evaluation of cold like symptoms that started yesterday. he states he has chills, dry cough, sore throat and some body aches that started yesterday. He also vomited once today prompting ER evaluation. He has been using his asthma inhaler more often than usual. No known sick contacts. He lives alone. He is unemployed. He denies any chest pain or difficulty breathing. No abdominal pain. MD elicited complaint: cough, nasal congestion and other (nausea, vomiting) Pertinent past history: COPD and asthma Onset (ago): day(s) (1) Consistency: progressively worsening Severity: moderate Description of mucous: clear Able to tolerate fluids by mouth: Yes Exacerbating factors: nothing Relieving factors: nothing Associated symptoms: chills, myalgias, headache, nasal congestion, sore throat, cough, shortness of breath, nausea and vomiting Treatments prior to arrival: none Related Data Previous Rx's Medication Instructions Recorded montelukast 10 mg tablet 10 mg PO DAILY for allergies #90 12/18/21 tabs atenolol 25 mg tablet 25 mg PO DAILY #90 tabs 12/29/21 pen needle, diabetic 32 gauge x #100 ea 05/13/22 (BD Ultra-Fine Estrella Pen Needle) insulin glargine 100 unit/mL (3 20 unit (0.2 mL) subcut QPM 30 07/24/22 mL) subcutaneous pen (Lantus days #6 mL Solostar U-100 Insulin) metformin 1,000 mg tablet 1,000 mg PO BID 90 days #180 tabs 08/14/22 cholecalciferol (vitamin D3) 50 50 mcg PO DAILY 90 days #90 caps 09/26/22 mcg (2,000 unit) capsule Ventolin HFA 90 mcg/actuation 2 puff PO Q4H PRN for wheezing #18 08/01/23 aerosol inhaler (albuterol sulfate) ea atorvastatin 40 mg tablet 40 mg PO DAILY 90 days #90 tabs 12/10/22 escitalopram oxalate 20 mg tablet 20 mg PO QAM #30 tabs 12/10/22 omeprazole 40 mg capsule,delayed 40 mg PO DAILY 90 days #90 caps 12/10/22 release tamsulosin 0.4 mg capsule 0.4 mg PO BEDTIME 30 days #90 caps 12/10/22 ferrous sulfate 325 mg (65 mg 325 mg PO DAILY 30 days #30 tabs 12/16/22 iron) tablet (Feosol) bupropion HCl 150 mg 24 hr tablet, 150 mg PO QAM 30 days #30 tabs 12/19/22 extended release lorazepam 0.5 mg tablet 0.5 mg PO BID PRN anxiety 15 days 12/19/22 #30 tabs aspirin 81 mg tablet,delayed 81 mg PO DAILY #14 tabs 01/09/23 release ondansetron 4 mg disintegrating 4 mg PO Q8H PRN nausea and 01/09/23 tablet vomiting #7 tabs Allergies Allergy/AdvReac Type Severity Reaction Status Date / Time cat dander [CATS] Allergy Unknown UNKNOWN Verified 12/19/22 15:15 dog dander [DOGS] Allergy Unknown UNKNOWN Verified 12/19/22 15:15 mold [MOLD] Allergy Unknown UNKNOWN Verified 12/19/22 15:15 pollen extracts [POLLEN] Allergy Unknown RUNNY NOSE Verified 12/19/22 15:15 Review of Systems Review of Systems: Yes all other systems are reviewed and are negative PMFSH Past Medical History Medical History Asthma Benign essential hypertension Chondrosarcoma Chronic kidney disease, stage III (moderate) Chronic restrictive lung disease COPD (chronic obstructive pulmonary disease) COPD (chronic obstructive pulmonary disease) Diabetes mellitus GERD without esophagitis Hyperlipidemia Obesity (BMI 30-39.9) Pulmonary emboli Pure hypercholesterolemia Restrictive lung disease Vitamin D deficiency Surgical History H/O tooth extraction History of inguinal hernia repair Hx of exploratory thoracotomy Family History Family History Father Hypertension Kidney failure, acute Mother Lung cancer Family/Other Diabetes Social History Social History Housing: House Alcohol intake: never Patient Tobacco Use Status: Never used Tobacco e-Cigarette/Vaping Use: Never Used Second Hand Smoke Exposure: Yes Advance Directives: Yes Advance Directives Information Provided: Yes Advance Directives on File: No service: No Current occupational status: unemployed Cognitive needs: No Hearing needs: No Vision needs: Yes Physical Exam Vital Signs: Vital Signs: Last Vital Signs Temp 98.3 F 01/09/23 09:34 Pulse 90 01/09/23 09:34 Resp 18 01/09/23 09:34 BP 143/71 H 01/09/23 09:34 Pulse Ox 97 01/09/23 09:34 O2 Del Method Room Air 01/09/23 09:34 BMI result Body Mass Index 38.0 Appearance: Alert. Oriented X3. No acute distress. Head: normocephalic, atraumatic. Eyes: Pupils equal, round and reactive to light. ENT: Pharynx normal. No tonsillar swelling or exudate. Neck: Normal inspection. Neck supple. CVS: Normal heart rate and rhythm. Pulses normal. Respiratory: No respiratory distress. Breath sounds normal. Abdomen: Soft and nontender. +BS x4 Skin: Skin warm and dry. Normal skin color. Normal skin turgor. No rashes. Extremities: No lower extremity edema. No joint swelling. Neuro/psych: Oriented X 3. No motor deficit. No sensory deficit. CN II-XII intact. Normal speech and cognition. Medical Decision Making Medical Decision Making [facility] Narrative: 52 yo male presenting with URI symptoms and cough x1 days. New N/V today. No abdominal pain. VSS on arrival and physical exam is unremarkable. COVID POSITIVE COVID vaccinated x2. Patient counseled on diagnosis and management, along w/ return precautions. will start baby aspirin given hx PEs. low clinical suspicion for PE at this time stable for d/c home Differential Diagnosis Differential Diagnoses: The differential diagnosis associated with the presentation includes strep, covid, flu, rsv, other viral syndrome, bronchitis, pneumonia, no evidence of peritonsillar abcsess or retropharyngeal abscess Lab Data [facility] Lab Attestation statement: I reviewed the patient's lab results. Labs: Lab Results 01/09/23 01/09/23 Range/Units 09:39 09:39 COVID-19 (CARON) Positive A (Negative) COVID-19 Clin Com See Note S. pyogenes GrpA SANDRA Negative (Negative) External Record Review External record reviewed: Outpatient record, Prior outpatient labs and Prior outpatient radiology Tests considered The following testing was considered but not selected: CXR considered but lungs clear and SpO2 97%, doubt PNA Prescription Management I considered prescription management with: Antiviral Chronic Conditions Patient?s care impacted by: Other (asthma, COPD) Critical Care Time Critical Care Time Critical Care Time: No Discharge Plan Discharge Clinical Impression: COVID-19 Patient Disposition: Home, Self-Care Instructions: Covid-19 Viral Syndrome and Novel Coronavirus (ED) Hey/Ath Additional Instructions: You were found to be COVID-19 POSITIVE today. Your exam and oxygen levels were normal. Rest. Drink plenty of fluids. Do not go out in public while you are not feeling well. Take over the counter cold/flu medications as needed for your symptoms. Take Tylenol and/or Motrin as needed for fevers and body aches. Take the prescribed baby aspirin for the next 2 weeks. Follow up with your doctor this week. If you shortness of breath worsens, if you develop difficulty breathing or any other concerning symptom come back to the ER for further evaluation. Prescriptions: New aspirin 81 mg tablet,delayed release (DR/EC) 81 mg PO DAILY Qty: 14 0RF ondansetron 4 mg tablet,disintegrating 4 mg PO Q8H PRN (Reason: nausea and vomiting) Qty: 7 0RF No Action montelukast 10 mg tablet 10 mg PO DAILY Qty: 90 1RF atenolol 25 mg tablet 25 mg PO DAILY Qty: 90 8RF (DME) pen needle, diabetic [BD Ultra-Fine Estrella Pen Needle] 32 gauge x 5/32 needle See Rx Instructions .Route Qty: 100 5RF Rx Instructions: As directed insulin glargine [Lantus Solostar U-100 Insulin] 100 unit/mL (3 mL) insulin pen 20 unit subcut QPM 30 Days Qty: 6 1RF metformin 1,000 mg tablet 1,000 mg PO BID 90 Days Qty: 180 1RF cholecalciferol (vitamin D3) 50 mcg (2,000 unit) capsule 50 mcg PO DAILY 90 Days Qty: 90 3RF albuterol sulfate [Ventolin HFA] 90 mcg/actuation HFA aerosol inhaler 2 puff PO Q4H PRN (Reason: for wheezing) Qty: 18 3RF tamsulosin 0.4 mg capsule 0.4 mg PO BEDTIME 30 Days Qty: 90 1RF atorvastatin 40 mg tablet 40 mg PO DAILY 90 Days Qty: 90 1RF omeprazole 40 mg capsule,delayed release(DR/EC) 40 mg PO DAILY 90 Days Qty: 90 1RF escitalopram oxalate 20 mg tablet 20 mg PO QAM Qty: 30 3RF ferrous sulfate [Feosol] 325 mg (65 mg iron) tablet 325 mg PO DAILY 30 Days Qty: 30 3RF lorazepam 0.5 mg tablet 0.5 mg PO BID PRN (Reason: anxiety) 15 Days Qty: 30 0RF Rx Instructions: Take ONLY NEEDED for increased anxiety bupropion HCl 150 mg tablet extended release 24 hr 150 mg PO QAM 30 Days Qty: 30 3RF Interventions: ED Discharge Assessment Last Done: 01/09/23 10:38 Discharge Date/Time: 01/09/23 10:38
== END 2023-01-09 10:38 | disposition home or self-care (01) ==
PROVIDERS: Emergency Provider Emergency Medicine; PCP Internal Medicine
DX: U07.1 COVID-19 (principal); R05.9 Cough, unspecified; J44.9 Chronic obstructive pulmonary disease, unspecified
CPT/HCPCS: 87635; 87651; 99282; 99283

== ENCOUNTER 2023-02-09 11:48 | Outpatient (REF) | payer OTHER, SELFPAY | END 2023-02-09 11:49 | disposition home or self-care (01) | LOC: HO.LAB 11:48 | PROVIDERS: PCP Internal Medicine; Visit Provider Internal Medicine Hypertension Specialist | DX: Z13.89 Encounter for screening for other disorder (principal) ==

== ENCOUNTER 2023-02-11 11:50 | Outpatient (REF) | payer OTHER, SELFPAY ==
[2023-02-11 14:00] LABS: Anion Gap 15 (12-20); Blood Urea Nitrogen 10 mg/dL (9-16); Calcium 9.6 mg/dL (8.4-10.2); Carbon Dioxide 27 mmol/L (22-29); Chloride 104 mmol/L (96-108); Estimated Glomerular Filt Rate > 60; Glucose Random 176 mg/dL (60-115); Potassium 4.3 mmol/L (3.3-5.1); Sodium 142 mmol/L (135-145)
[2023-02-11 15:35] LABS: Creatinine, mg/dL 93.83
[2023-02-11 15:41] LABS: Total Volume 24 Hour Urine 1050 mL
[2023-02-11 15:42] LABS: Creatinine (CrCl) 1.15 mg/dL (0.5-1.4); Creatinine Clearance 59.4 mL/min (85-125)
== END 2023-02-11 11:51 | disposition home or self-care (01) ==
LOC: HO.LAB 11:50
PROVIDERS: PCP Internal Medicine; Visit Provider Internal Medicine Hypertension Specialist
DX: N18.31 Chronic kidney disease, stage 3a (principal)
CPT/HCPCS: 36415; 80048; 82575

== ENCOUNTER 2023-03-13 09:09 | Outpatient (REF) | payer OTHER, SELFPAY ==
[2023-03-13 09:26] LABS: MANUAL DIFF FLAG NO
[2023-03-13 10:06] LABS: Basophils Percent Auto 0.7 % (0-2); Eosinophils Absolute Auto 0.4 X10*3/uL (0.0-0.4); Eosinophils Percent Auto 6.2 % (0-4); Hematocrit 42.1 % (42.0-52.0); Hemoglobin 13.7 g/dl (14.0-18.0); Imm Gran Abs Auto 0.02 X10*3/uL (0.00-0.03); Imm Gran Pct Auto 0.3 % (0.0-0.4); Lymphocytes Absolute Auto 1.7 X10*3/uL (1.2-4.9); Lymphocytes Percent Auto 29.1 % (20-40); Mean Corpuscular HGB Conc 32.5 g/dl (31.0-36.0); Mean Corpuscular Hemoglobin 30.3 pg (27.0-33.0); Mean Corpuscular Volume 93.1 fL (80.0-98.0); Mean Platelet Volume 10.3 fL (9.4-12.4); Monocytes Absolute Auto 0.5 X10*3/uL (0.1-1.2); Monocytes Percent Auto 7.6 % (2-11); Neutrophils Absolute Auto 3.3 x10*3/uL (2.0-8.3); Neutrophils Percent Auto 56.1 % (45-73); Platelet Count 177 X10*3/uL (160-400); Red Blood Count 4.52 X10*6/uL (4.60-5.80); Red Cell Distribution Width 17.7 % (11.0-16.0)
[2023-03-13 10:13] LABS: Estimated Average Glucose 123 mg/dL; Hemoglobin A1c % 5.9 % (<6.0)
[2023-03-13 10:52] LABS: Alanine Aminotransferase 22 U/L (0-40); Albumin Level 3.9 g/dL (3.5-5.0); Alkaline Phosphatase 74 U/L (39-117); Anion Gap 11 (12-20); Aspartate Amino Transferase 19 U/L (5-37); Bilirubin Total 0.6 mg/dL (0.0-1.0); Blood Urea Nitrogen 9 mg/dL (9-16); Calcium 9.2 mg/dL (8.4-10.2); Carbon Dioxide 31 mmol/L (22-29); Chloride 104 mmol/L (96-108); Cholesterol 133 mg/dL (<200); Estimated Glomerular Filt Rate > 60; Glucose Fasting 117 mg/dL (60-99); HDL Cholesterol 35 mg/dL (>40); LDL Cholesterol Calculated 76 mg/dL (<100); Potassium 4.2 mmol/L (3.3-5.1); Sodium 142 mmol/L (135-145); Total Protein 6.8 g/dL (6.5-8.0); Triglycerides 113 mg/dL (<150)
[2023-03-13 11:01] LABS: Appearance Urine Clear; Color Urine Yellow; Glucose Urine UA Negative (Negative); Leukocyte Esterase Urine Negative (Negative); Nitrite Urine Negative (Negative); PH 6.5 (5.0-9.0); Specific Gravity - Urine 1.015 (1.005-1.025); Urine Blood Negative (Negative); Urine Ketones Negative (Negative); Urine Protein Negative (Neg-Trace)
[2023-03-13 11:10] LABS: TSH reflex Free T4 5.34 uIU/mL (0.32-4.0); Vitamin D 25-OH Total 94.5 ng/mL (>30)
[2023-03-13 12:18] LABS: Free T4 (Free Thyroxine) 0.87 ng/dL (0.71-1.85)
[2023-03-13 12:38] LABS: Creatinine Urine 103.69 mg/dL; Microalbum/Creatinine Ratio Ur 9.6 ug/mg cr (<30)
== END 2023-03-13 09:10 | disposition home or self-care (01) ==
LOC: HO.LAB 09:09
PROVIDERS: PCP Internal Medicine; Visit Provider Internal Medicine
DX: R30.0 Dysuria (principal); E11.9 Type 2 diabetes mellitus without complications; E78.00 Pure hypercholesterolemia, unspecified; E55.9 Vitamin D deficiency, unspecified; I10 Essential (primary) hypertension
CPT/HCPCS: 36415; 80053; 80061; 81003; 82043; 82306; 82570; 83036; 84439; 84443; 85025

== ENCOUNTER 2023-03-27 12:42 | Outpatient (AMB) | payer OTHER, SELFPAY ==
[2023-03-27 12:57] VITALS: BP 124/80; PULSE 63; O2SAT 94; BMI 39.6
--- NOTE | 2023-03-27 12:57 | MHC.PC.OV ---
Vital Signs 03/27/23 12:57 Height 5 ft 8 in Weight 260 lb 6 oz BMI 39.6 BP 124/80 Blood Pressure Location Lt brachial Position Sitting Pulse 63 Pulse Source Pulse Oximeter Pulse Oximetry (%) 94 Oxygen Delivery Method Room Air Intake Visit Reasons: 3 month f/u Pad Extractor Tender Required: No Accompanied by: Self / Same As Patient Allergies cat dander [CATS] Allergy (Unknown, Verified 03/27/23 13:42) UNKNOWN dog dander [DOGS] Allergy (Unknown, Verified 03/27/23 13:42) UNKNOWN mold [MOLD] Allergy (Unknown, Verified 03/27/23 13:42) UNKNOWN pollen extracts [POLLEN] Allergy (Unknown, Verified 03/27/23 13:42) RUNNY NOSE Medication List - Last Reconciled 03/27/23 by Bon Arvizu MD aspirin 81 mg PO DAILY atenolol 25 mg PO DAILY atorvastatin 40 mg PO DAILY 90 days bupropion HCl 150 mg PO QAM 30 days cholecalciferol (vitamin D3) 50 mcg PO DAILY 90 days escitalopram oxalate 20 mg PO QAM ferrous sulfate 325 mg PO DAILY insulin glargine (Lantus Solostar U-100 Insulin) 20 units (0.2 mL) subcut QPM 30 days lorazepam 0.5 mg PO BID PRN 15 days metformin 1,000 mg PO BID 90 days montelukast 10 mg PO DAILY omeprazole 40 mg PO DAILY 90 days ondansetron 4 mg PO Q8H PRN pen needle, diabetic (BD Ultra-Fine Estrella Pen Needle) As directed tamsulosin 0.4 mg PO BEDTIME 30 days Ventolin HFA 90 mcg/actuation (albuterol sulfate) 2 puffs PO Q4H PRN NS Tobacco use date assessed: 03/27/23 Dental Screening Dental Screen Date: 03/27/23 Did you have a dental visit in the last 12 months?: No Did you have a dental problem in the last 6 months where you did not have access to dental care?: No Was dental information given to patient?: No HPI 3 month f/u HPI Details Patient comes in today for his follow up visit States that he currently feels okay He denies any headaches but reports experiencing on and off transient bouts of dizziness again over the past 2 to 3 days - states that these episodes occur on average a couple of times a day and tend to last for just about 2 to 3 minutes before subsiding Describes his dizziness as a spinning sensation of everything around him Denies any chest pains, no SOB No nausea/vomiting, no abdominal pain No change in bowel habits noted Had his follow up labs done a couple of weeks ago - to discuss his results Would like to get his flu shot today [facility] Medical History Vitamin D deficiency Chronic kidney disease, stage III (moderate) GERD without esophagitis Restrictive lung disease Obesity (BMI 30-39.9) COPD (chronic obstructive pulmonary disease) Benign essential hypertension Pure hypercholesterolemia Diabetes mellitus Pulmonary emboli Chondrosarcoma Hyperlipidemia Chronic restrictive lung disease COPD (chronic obstructive pulmonary disease) Asthma Surgical History History of inguinal hernia repair Hx of exploratory thoracotomy H/O tooth extraction Family History Father Hypertension Kidney failure, acute Mother Lung cancer Family/Other Diabetes Social History Housing: House Alcohol intake: never Patient Tobacco Use Status: Never used Tobacco e-Cigarette/Vaping Use: Never Used Second Hand Smoke Exposure: Yes service: No Current occupational status: unemployed Cognitive needs: No Hearing needs: No Vision needs: Yes Questionnaire PHQ-9 Over the last 2 weeks, how often have you been bothered by any of the following problems? 1. Little interest or pleasure in doing things: not at all 2. Feeling down, depressed, or hopeless: not at all 3. Trouble falling or staying asleep, or sleeping too much: not at all 4. Feeling tired or having little energy: not at all 5. Poor appetite or overeating: not at all 6. Feeling bad about yourself - or that you are a failure or have let yourself or your family down: not at all 7. Trouble concentrating on things, such as reading the newspaper or watching television: not at all 8. Moving or speaking so slowly that other people could have noticed. Or the opposite - being so fidgety or restless that you have been moving around a lot more than usual: not at all 9. Thoughts that you would be better off or of hurting yourself in some way: not at all Total score: 0 Depression Screening Interpretation: Negative Depression Screening Done: Yes 14240 - PHQ-9 Billing: Yes Source: Developed by Drs. Tashi Michael, Laura Archer, Ambrosio Xie and colleagues, with an educational maría elena from [employer]. Thrive Questionnaire Date Thrive assessed: 03/27/23 I am a: Patient What is your living situation today?: I have a steady place to live Within the past 12 months, did the food you bought not last and you didn't have the money to get more?: Never true Within the past 12 months, did you worry whether your food would run out before you got money to buy more?: Never true Do you have trouble paying for medicines?: No Do you have trouble getting transportation to medical appointments?: No Do you have trouble paying your heating and electricity bill?: No Do you have trouble taking care of your child, family member or friend?: No Do you have trouble with day-to-day activities such as bathing, preparing meals, shopping, managing finances, etc.?: No Are you currently unemployed and looking for a job?: No Are you interested in more education?: No Please select the resources that you would like help with: None Currently or been in a relationship where the following occur: no concerns reported AUDIT C Alcohol Use Questionnaire (AUDIT-C) 1. How often do you have a drink containing alcohol?: Never 3. How often do you have six or more drinks on one occasion?: Never Total Score: 0 Score Reviewed/Action Taken: Yes CATIE-7 AMB Questionnaire CATIE-7 Date CATIE - 7 assessed: 03/27/23 Feeling nervous, anxious, or on edge: 0 = Not at all Not being able to stop or control worryin = Not at all Worrying too much about different things: 0 = Not at all Trouble relaxin = Not at all Being so restless that it is hard to sit still: 0 = Not at all Becoming easily annoyed or irritable: 0 = Not at all Feeling afraid as if something awful might happen: 0 = Not at all Total CATIE-7 score (0-4 normal; 5-9 mild; 10-14 moderate; 15-21 severe): 0 Source: Developed by Drs. Tashi Michael, Laura Archer, Ambrosio Xie and colleagues, with an educational maría elena from [employer]. Review of Systems Const Denies fatigue, Denies fever(s) and Denies headache(s) ENT Denies dysphagia, Reports dizziness (on and off over the past couple of days - see HPI), Denies otalgia, Denies headache(s), Denies neck pain, Denies odynophagia and Denies sore throat Card Denies chest pain, Denies rapid heart rate and Denies dyspnea Resp Denies cough, Denies dyspnea and Denies wheezing GI Denies abdominal pain, Denies constipation, Denies dysphagia, Denies heartburn, Denies diarrhea, Denies nausea, Denies odynophagia and Denies vomiting Denies dysuria, Denies nocturia (improved with Rx) and Denies urinary frequency (improved with Rx) Musc Denies back pain and Denies neck pain Skin/Breast Denies rash Neuro Reports dizziness (on and off over the past couple of days - see HPI) and Denies headache(s) Psych Reports anxiety (controlled better lately) Endo Denies fatigue Edu/Lymph Details: (+) swelling of the right leg and of both feet Aller/Immun Denies wheezing Physical exam (Primary Care) Vital Signs: Last Vital Signs Pulse 63 03/27/23 12:57 BP 124/80 03/27/23 12:57 Pulse Ox 94 03/27/23 12:57 Oxygen Delivery Method Room Air 03/27/23 12:57 BMI result Body Mass Index 39.6 Tobacco/Smoking Status: Tobacco use Status Tobacco use date assessed 03/27/23 03/27/23 13:01 Patient Tobacco Use Status Never used Tobacco 03/27/23 13:01 e-Cigarette/Vaping Use Never Used 03/27/23 13:01 PHQ-9: PHQ-9 Score PHQ-9: Total score 0 03/27/23 13:35 Depression Screening Interpretation: Negative Thrive Assessment: Date of Thrive Assessment Date Thrive assessed 03/27/23 03/27/23 13:01 Currently or been in a relationship where the following occur: no concerns reported Const General: no acute distress and alert HENMT Ears: TM's normal bilaterally and EAC's normal Throat: Yes posterior oropharynx normal and Yes tonsils normal (no TP congestion) Neck Neck: Yes no lymphadenopathy and Yes supple Resp Auscultation: clear to auscultation bilaterally, no rales and no wheezes Cardio Rate: regular rate Rhythm: regular rhythm Heart sounds: no murmurs GI Palpation (GI): Soft to palpation and nontender Auscultation: normal bowel sounds General: Yes no CVA tenderness Back/Spine/Pelvis Back: no CVA tenderness Thoracic/Lumbar Spine: No lumbar spinal tenderness Skin Rashes: no rashes Extrem General: Yes no clubbing, cyanosis or edema Office Procedures Flu Questionnaire Does the patient have a severe egg allergy?: No Does the patient have severe life threatening allergies?: No Does the patient have a fever or illness today?: No Has the patient ever had Guillain-[place] Syndrome?: No Has the patient ever had any past reaction to a flu shot?: No Immunizations flu vacc [id number] 6mos up(PF) 60 mcg(15 mcgx4)/0.5 mL IM syringe Performing Provider: Bon Arvizu MD Performing Location: [facility] Administered by: Macho Montoya on 03/27/23 13:42 Dose Route Admin Location Dispensed Lot Number Expiration Date NDC Matcher Operator 0.5 mL IM Left Deltoid 0.5 mL [id number] 11/08/23 68976-369-10 [employer] VIS Given Date VIS Provided VIS Publication Date 03/27/23 Single Vaccine 20 Eligibility Eligibility Date Funding Source Not [facility] Eligible 03/27/23 Private Results Reviewed Results Reviewed: Laboratory Tests 03/13/23 03/13/23 09:23 09:25 WBC 6.0 Hgb 13.7 L Hct 42.1 Plt Count 177 Sodium 142 Potassium 4.2 Creatinine 1.12 Estimated GFR > 60 Fasting Glucose 117 H Calcium 9.2 AST 19 ALT 22 Triglycerides 113 Cholesterol 133 LDL Cholesterol, Calc 76 HDL Cholesterol 35 L 25-OH Vitamin D Total 94.5 TSH 5.34 H Free T4 0.87 Ur Specific [place] 1.015 Urine Protein Negative Urine Glucose (UA) Negative Urine Blood Negative Laboratory Tests 03/13/23 09:25 Hemoglobin A1c % 5.9 Assessment and Plan Assessment & Plan (1) Diabetes mellitus: Code(s): E11.9 - Type 2 diabetes mellitus without complications Qualifiers: Diabetes mellitus type: type 2 Diabetes mellitus terminal supervisor insulin use: without terminal supervisor use Diabetes mellitus complication status: with hyperglycemia Qualified Code(s): E11.65 - Type 2 diabetes mellitus with hyperglycemia Plan: HgbA1c was at 5.9% on his labs done a couple of weeks ago (was at 5.8% previously) - goal is <7.0% Reinforced diabetic diet Continue Lantus 20 units QD and Metformin 1000 mg BID (2) Pure hypercholesterolemia: Code(s): E78.00 - Pure hypercholesterolemia, unspecified Plan: Results of his labs done a couple of weeks ago reviewed and discussed with patient Reinforced low cholesterol diet Continue Atorvastatin 40 mg QD Will recheck his labs and fasting lipids in 3 months for follow-up (3) Benign essential hypertension: Code(s): I10 - Essential (primary) hypertension Plan: Reinforced low sodium diet - goal is systolic BP of 120 mm or less Continue Atenolol 25 mg QD (4) Dizziness: Code(s): R42 - Dizziness and giddiness Plan: May be possibly due to flare up of his vertigo again although his BP and HR are comparatively low today so may also be due to orthostasis Have encouraged him to increase his oral fluid intake and to avoid sudden and abrupt change in position for a few days Is instructed to call at any time if he feels that his dizziness is getting worse (5) Chronic kidney disease, stage III (moderate): Code(s): N18.30 - Chronic kidney disease, stage 3 unspecified Qualifiers: Chronic kidney disease stage 3 subtype: stage 3a (GFR 45-59) Qualified Code(s): N18.31 - Chronic kidney disease, stage 3a Plan: His serum creatinine and GFR have remained steady and are mostly unchanged on his recent labs Renal US done last year came back grossly normal Follow up with nephrology as scheduled Will continue to monitor his renal function regularly (6) Vitamin D deficiency: Code(s): E55.9 - Vitamin D deficiency, unspecified Plan: Corrected - continue Vitamin D3 2000 units QD (7) Elevated TSH: Code(s): R79.89 - Other specified abnormal findings of blood chemistry Plan: His serum TSH is again slightly elevated but free T4 level remains normal on his recent labs; patient is clinically euthyroid Will continue to monitor his TFTs regularly (8) COPD (chronic obstructive pulmonary disease): Code(s): J44.9 - Chronic obstructive pulmonary disease, unspecified Qualifiers: COPD type: unspecified COPD Qualified Code(s): J44.9 - Chronic obstructive pulmonary disease, unspecified Plan: Continue Albuterol HFA 2 inhalations every 6 hours PRN Used to be on Trelegy but his insurance declined to continue covering his Rx PFTs done last year showed only findings of mild COPD Follow up with pulmonary as scheduled (9) Palpitations: Code(s): R00.2 - Palpitations Plan: States that his symptoms have improved/subsided lately, and that these were most likely related to his anxiety as his symptoms supposedly resolved with some Ativan in the ER last year EKG done in the ER back then came out normal = NSR, HR = 81 bpm, with no acute ST-T wave changes Holter monitor, echocardiogram and cardiac event monitor done (by cardiology) over the past few months have also all been normal (10) Urinary frequency: Code(s): R35.0 - Frequency of micturition Plan: Patient states that his urinary frequency has improved a lot (though not completely) with Tamsulosin - symptoms are likely due to BPH Serum PSA level was normal when checked a few months ago Continue Tamsulosin 0.4 mg Q HS To consider referral to urology if his urinary frequency or symptoms continue to persist or progress (11) Anxiety: Code(s): F41.9 - Anxiety disorder, unspecified Plan: Continue Escitalopram 20 mg QD, Bupropion XL 150 mg Q AM and Lorazepam 0.5 mg BID PRN (12) Obesity (BMI 30-39.9): Comment: He remains grossly overweight. Denies symptoms of sleep apnea. Trying to lose weight on his own with diet and exercise. However he is not able to do much exercise, as he cannot walk much. Code(s): E66.9 - Obesity, unspecified Plan: Flu vaccine given today Reinforced diet/exercise as tolerated/lose weight Plan Follow up in 3 months Orders: Orders Lipid Panel 3 Months E78.00 - Pure hypercholesterolemia, unspecified Hemoglobin A1c 3 Months E11.9 - Type 2 diabetes mellitus without complications UA CC w/rflx Micro + Cult 3 Months R30.0 - Dysuria Vitamin D 25-OH Total 3 Months E55.9 - Vitamin D deficiency, unspecified Influenza [id number] Immunization Today Z23 - Encounter for immunization Complete Blood Count Auto Diff 3 Months I10 - Essential (primary) hypertension Comprehensive [place]. Panel Fast 3 Months E78.00 - Pure hypercholesterolemia, unspecified Microalbumin, Random (w Creat) 3 Months E11.9 - Type 2 diabetes mellitus without complications Thyroid Stimulating Hormone 3 Months R79.89 - Other specified abnormal findings of blood chemistry Free T4 (Free Thyroxine) 3 Months R79.89 - Other specified abnormal findings of blood chemistry Coding Level of Care Code Est Pt Level 4 (09110) Diagnoses Type 2 diabetes mellitus with hyperglycemia, without long-term current use of insulin E11.65 Diabetes mellitus type: type 2 Diabetes mellitus terminal supervisor insulin use: without terminal supervisor use Diabetes mellitus complication status: with hyperglycemia Pure hypercholesterolemia E78.00 Benign essential hypertension I10 Dizziness R42 Stage 3a chronic kidney disease N18.31 Chronic kidney disease stage 3 subtype: stage 3a (GFR 45-59) Vitamin D deficiency E55.9 Elevated TSH R79.89 Chronic obstructive pulmonary disease, unspecified COPD type J44.9 COPD type: unspecified COPD Palpitations R00.2 Urinary frequency R35.0 Anxiety F41.9 Obesity (BMI 30-39.9) E66.9
== END 2023-03-27 13:42 | disposition home or self-care (01) ==
PROVIDERS: PCP Internal Medicine; Visit Provider Internal Medicine
DX: E11.65 Type 2 diabetes mellitus with hyperglycemia (principal); N18.31 Chronic kidney disease, stage 3a; J44.9 Chronic obstructive pulmonary disease, unspecified; I12.9 Hypertensive chronic kidney disease with stage 1 through stage 4 chronic kidney disease, or unspecified chronic kidney disease; E78.00 Pure hypercholesterolemia, unspecified; R42 Dizziness and giddiness; R79.89 Other specified abnormal findings of blood chemistry; E55.9 Vitamin D deficiency, unspecified; R00.2 Palpitations; R35.0 Frequency of micturition; F41.9 Anxiety disorder, unspecified; E66.9 Obesity, unspecified
CPT/HCPCS: 90471; 90686; 99214

== ENCOUNTER → 2023-06-08 12:48 | Outpatient (BNVA) | payer OTHER, SELFPAY | PROVIDERS: PCP Internal Medicine; Visit Provider Internal Medicine | DX: J44.9 Chronic obstructive pulmonary disease, unspecified (principal); J98.4 Other disorders of lung; J45.909 Unspecified asthma, uncomplicated; E66.9 Obesity, unspecified; C41.9 Malignant neoplasm of bone and articular cartilage, unspecified; Z68.39 Body mass index [BMI] 39.0-39.9, adult | CPT/HCPCS: 99212 ==

== ENCOUNTER 2023-06-08 12:50 | Outpatient (AMB) | payer OTHER, SELFPAY ==
[2023-06-08 13:15] VITALS: BP 120/62; PULSE 61; O2SAT 94; BMI 39.9
--- NOTE | 2023-06-08 13:15 | A.OFFVIS_ITS ---
Intake Vital Signs 06/08/23 13:15 Height 5 ft 8 in Weight 262 lb 5.601 oz BMI 39.9 BP 120/62 Blood Pressure Location Lt brachial Position Sitting Pulse 61 Pulse Source Pulse Oximeter Pulse Oximetry (%) 94 Oxygen Delivery Method Room Air Intake Visit Reasons: COPD Intake Note: pt is here for follow up and states he is feeling good. Wood Engraver Required: No Allergies cat dander [CATS] Allergy (Unknown, Verified 06/08/23 13:23) UNKNOWN dog dander [DOGS] Allergy (Unknown, Verified 06/08/23 13:23) UNKNOWN mold [MOLD] Allergy (Unknown, Verified 06/08/23 13:23) UNKNOWN pollen extracts [POLLEN] Allergy (Unknown, Verified 06/08/23 13:23) RUNNY NOSE Medication List - Last Reconciled 06/08/23 by Bryant Correa MD aspirin 81 mg PO DAILY atenolol 25 mg PO DAILY atorvastatin 40 mg PO DAILY 90 days bupropion HCl 150 mg PO QAM 30 days cholecalciferol (vitamin D3) 50 mcg PO DAILY 90 days escitalopram oxalate 20 mg PO QAM ferrous sulfate 325 mg PO DAILY insulin glargine (Lantus Solostar U-100 Insulin) 20 units (0.2 mL) subcut QPM 30 days lorazepam 0.5 mg PO BID PRN 15 days metformin 1,000 mg PO BID 90 days montelukast 10 mg PO DAILY omeprazole 40 mg PO DAILY 90 days ondansetron 4 mg PO Q8H PRN pen needle, diabetic (BD Ultra-Fine Estrella Pen Needle) As directed tamsulosin 0.4 mg PO BEDTIME 30 days Ventolin HFA 90 mcg/actuation (albuterol sulfate) 2 puffs PO Q4H PRN NS Do you need a note to return to daycare/school/sports/work: No HPI COPD HPI Details KIAN IS 52 YEARS OLD , GROSSLY OBESE, WITH RESTRICTIVE PULMONARY DISORDER AND MILD OBSTRUCTIVE DISORDER. HE IS HERE. FOR 6 MONTHS FOLLOW-UP CLAIMS THAT HE HAS BEEN DOING WELL. HE HAS ONLY OCCASIONAL COUGH AND WHEEZE. HE USES VENTOLIN 2 PUFFS VERY OCCASIONALLY. HE HAD COVID-19 INFECTION IN 2022, AND RECOVERED FROM IT RIGHT AT HOME. HE REMAINS GROSSLY OBESE AND HAS NOT BEEN ABLE. TO LOSE WEIGHT PAIN IN THE LEFT CHEST WALL IS MINIMAL HE DOES NOT NEED ANY PAIN MEDS. [facility] Medical History Vitamin D deficiency Chronic kidney disease, stage III (moderate) GERD without esophagitis Restrictive lung disease Obesity (BMI 30-39.9) COPD (chronic obstructive pulmonary disease) Benign essential hypertension Pure hypercholesterolemia Diabetes mellitus Pulmonary emboli Chondrosarcoma Hyperlipidemia Chronic restrictive lung disease COPD (chronic obstructive pulmonary disease) Asthma Surgical History History of inguinal hernia repair Hx of exploratory thoracotomy H/O tooth extraction Family History Father Hypertension Kidney failure, acute Mother Lung cancer Family/Other Diabetes Social History Housing: House Alcohol intake: never Patient Tobacco Use Status: Never used Tobacco e-Cigarette/Vaping Use: Never Used Second Hand Smoke Exposure: Yes service: No Current occupational status: unemployed Cognitive needs: No Hearing needs: No Vision needs: Yes Review of Systems Const All systems reviewed & are unremarkable except as noted in HPI and below Eyes Reports no additional complaints ENT Reports nasal congestion (Mild off and on) Card Denies chest pain, Denies irregular heart rhythm, Denies leg edema and Reports dyspnea on exertion Resp Reports as per HPI and Reports dyspnea on exertion GI Reports heartburn (Being treated for GERD with omeprazole) Reports no additional complaints Musc Reports back pain (Mild) and Reports other (Inter stitch sided chest wall pain) Skin/Breast Reports system reviewed and no additional complaints, except as documented Neuro Reports no additional complaints Psych Reports depression (Treated with med) Endo Reports other (Type 2 diabetes being treated with metformin) Physical Exam Vital Signs: Last Vital Signs Pulse 61 06/08/23 13:15 BP 120/62 06/08/23 13:15 Pulse Ox 94 06/08/23 13:15 Oxygen Delivery Method Room Air 06/08/23 13:15 BMI result Body Mass Index 39.9 Const General: cooperative, no acute distress, alert and awake Orientation/consciousness: patient oriented x3 HEENT Head: Yes normal to inspection General nose exam: No nasal polyps present and No nasal discharge present Face and sinus: Yes sinuses nontender Mouth: oropharynx normal Throat: Yes posterior oropharynx normal Eyes General: appearance normal, both eyes and all related structures Neck Neck: Yes normal visual inspection and Yes no JVD Thyroid: Thyroid normal Chest Other: Left chest wall abnormality status post remote surgery Chest palpation & inspection: normal inspection of the chest (Extensive scars on the left lower chest wall from previous surgery), normal palpation of entire chest wall and no tenderness Resp Other: Breath sounds are markedly diminished over the left lower lung . Percussion note is resonant on the right side, with decreased breath sounds, but no wheezes or rhonchi are heard. Effort & Inspection: normal respiratory effort, able to speak in complete sentences and not labored Auscultation: clear to auscultation bilaterally, no crackles, no rales, no rhonchi and no wheezes Cardio Palpation: normal PMI Rate: regular rate Rhythm: regular rhythm Heart sounds: S1 normal heart sound present and S2 normal heart sound present Peripheral pulses: Peripheral pulses 2+ throughout GI Inspection: Yes normal to inspection Palpation (GI): Soft to palpation, nontender, No hepatosplenomegaly present and no masses Auscultation: normal bowel sounds Back/Spine/Pelvis Thoracic/Lumbar Spine: thoracic and lumbar spine normal to inspection and thoraco-lumbar ROM limited Skin General skin exam: no rashes or lesions noted Neuro General: patient oriented x3 Cranial nerves: Yes CN's II-XII intact bilaterally Extrem General: Yes normal to inspection and No edema Psych Appearance: grossly normal and well kempt Speech and movement: Normal speech and movement present Assessment & Plan Assessment & Plan (1) Obesity (BMI 30-39.9): Comment: He remains grossly overweight. Denies symptoms of sleep apnea. Trying to lose weight on his own with diet and exercise. However he is not able to do much exercise, as he cannot walk much. Code(s): E66.9 - Obesity, unspecified Plan: AGAIN EXPLAINED TO HIM ABOUT THE TYPE OF FOODS TO EAT, TO CUT DOWN THE PORTIONS, AND DUE DAILY WALKING. 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 HAS HAD WIDE RESECTION OF THE LEFT LOWER CHEST WALL, MANY YEARS AGO. LUCKILY NO RECURRENCE. Code(s): 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, unspecified Plan: NO TREATMENT NEEDED (3) Chronic restrictive lung disease: Comment: CHRONIC RESTRICTIVE LUNG DISEASE SECONDARY TO, PAST RESECTION OF THE CHEST WALL FOR CHONDROSARCOMA. GROSS OBESITY ALSO CONTRIBUTES TO RESTRICTIVE DISORDER. Code(s): J98.4 - Other disorders of lung Plan: I ADVISED HIM TO DO DEEP BREATHING EXERCISES 2 OR 3 TIMES A DAY AT LEAST. AND KEEP HIS WEIGHT UNDER CONTROL IF POSSIBLE, (4) COPD (chronic obstructive pulmonary disease): Comment: THE PULMONARY FUNCTION TEST DID NOT SHOW CHRONIC OBSTRUCTIVE PULMONARY DISEASE. IF AT ALL IT IS MILD. PATIENT HAS INTERMITTENT COUGH WHICH MAY BE DUE TO UPPER AIRWAY ALLERGIES OR MILD BRONCHIAL ASTHMA. Code(s): J44.9 - Chronic obstructive pulmonary disease, unspecified Plan: TX : EXPLAINED TO HIM IN DETAIL. OK to USE VENTOLIN 2 PUFFS Q 6 HOURS P.R.N., BUT HE IS CAUTIONED THAT HE SHOULD NOT USE TOO FREQUENTLY. (5) Asthma: Comment: See above under Asthma /COPD Code(s): J45.909 - Unspecified asthma, uncomplicated Plan: ABOVE Coding Level of Care Code Est Pt Level 3 (69977) Diagnoses Obesity (BMI 30-39.9) E66.9 Chondrosarcoma C41.9 Chronic restrictive lung disease J98.4 COPD (chronic obstructive pulmonary disease) J44.9 Asthma J45.909
== END 2023-06-08 13:23 | disposition home or self-care (01) ==
PROVIDERS: PCP Internal Medicine; Visit Provider Internal Medicine
DX: E66.9 Obesity, unspecified (principal); C41.9 Malignant neoplasm of bone and articular cartilage, unspecified; J98.4 Other disorders of lung; J44.9 Chronic obstructive pulmonary disease, unspecified; J45.909 Unspecified asthma, uncomplicated
CPT/HCPCS: 99213

== ENCOUNTER 2023-06-19 11:27 | Outpatient (REF) | payer OTHER, SELFPAY ==
[2023-06-19 11:42] LABS: MANUAL DIFF FLAG NO
[2023-06-19 12:22] LABS: Basophils Percent Auto 0.4 % (0-2); Eosinophils Absolute Auto 0.3 X10*3/uL (0.0-0.4); Eosinophils Percent Auto 4.3 % (0-4); Hematocrit 44.7 % (42.0-52.0); Hemoglobin 14.7 g/dl (14.0-18.0); Imm Gran Abs Auto 0.01 X10*3/uL (0.00-0.03); Imm Gran Pct Auto 0.1 % (0.0-0.4); Lymphocytes Absolute Auto 1.9 X10*3/uL (1.2-4.9); Lymphocytes Percent Auto 27.9 % (20-40); Mean Corpuscular HGB Conc 32.9 g/dl (31.0-36.0); Mean Corpuscular Hemoglobin 30.4 pg (27.0-33.0); Mean Corpuscular Volume 92.5 fL (80.0-98.0); Mean Platelet Volume 10.8 fL (9.4-12.4); Monocytes Absolute Auto 0.5 X10*3/uL (0.1-1.2); Monocytes Percent Auto 7.8 % (2-11); Neutrophils Percent Auto 59.5 % (45-73); Platelet Count 187 X10*3/uL (160-400); Red Blood Count 4.83 X10*6/uL (4.60-5.80); Red Cell Distribution Width 14.1 % (11.0-16.0); White Blood Count 6.7 X10*3/uL (4.8-10.8)
[2023-06-19 12:43] LABS: Microalbum/Creatinine Ratio Ur 22.3 ug/mg cr (<30); Protein/Creatinine Ratio, Ur 0.09 (<0.2); Total Protein Urine Random 10 mg/dL (<12)
[2023-06-19 12:47] LABS: Parathyroid Hormone Intact 58.9 pg/mL (8.7-77.1)
[2023-06-19 13:12] LABS: Anion Gap 14 (12-20); Blood Urea Nitrogen 10 mg/dL (9-16); Calcium 9.1 mg/dL (8.4-10.2); Carbon Dioxide 31 mmol/L (22-29); Chloride 100 mmol/L (96-108); Estimated Glomerular Filt Rate 60; Potassium 4.4 mmol/L (3.3-5.1); Sodium 141 mmol/L (135-145); Uric Acid 7.8 mg/dL (3.4-7.0)
[2023-06-19 13:17] LABS: Vitamin D 25-OH Total 81.3 ng/mL (>30)
== END 2023-06-19 11:28 | disposition home or self-care (01) ==
LOC: HO.LAB 11:27
PROVIDERS: PCP Internal Medicine; Visit Provider Internal Medicine
DX: N18.31 Chronic kidney disease, stage 3a (principal)
CPT/HCPCS: 36415; 80051; 82043; 82306; 82310; 82565; 82570; 83970; 84156; 84520; 84550; 85025

== ENCOUNTER 2023-07-13 09:27 | Day surgery (SDC) | payer OTHER, SELFPAY ==
[2023-07-09 15:08] VITALS: BMI 40.1
--- NOTE | 2023-07-10 12:38 | P.CONAN_ITS ---
HPI - Anesthesia Eval Consult details Narrative: 52yo M for Colonoscopy Hx of PE with anticoag. None since 2020 as directed by Heme [facility] Active Problems Active Problems: All Active Problems (Updated 07/09/23 @ 15:10 by Sherin Quinteros RN) Dizziness (Acute) COVID-19 (Acute) Elevated TSH (Acute) Vertigo (Acute) Pain and swelling of right lower extremity (Acute) Shortness of breath (Acute) Urinary frequency (Acute) Anxiety (Acute) Chest pain (Acute) Palpitations (Acute) COPD (chronic obstructive pulmonary disease) (Acute) Chondrosarcoma (Chronic) Current use of anticoagulant therapy (Acute) Current use of anticoagulant therapy (Acute) Vitamin D deficiency (Acute) Chronic kidney disease, stage III (moderate) (Acute) GERD without esophagitis (Acute) Restrictive lung disease (Acute) Obesity (BMI 30-39.9) (Acute) Benign essential hypertension (Acute) Pure hypercholesterolemia (Acute) Diabetes mellitus (Acute) Hyperlipidemia (Acute) Chronic restrictive lung disease (Acute) COPD (chronic obstructive pulmonary disease) (Acute) Asthma (Acute) Past Medical History Medical History (Updated 07/09/23 @ 15:10 by Sherin Quinteros RN) Palpitations Vitamin D deficiency Chronic kidney disease, stage III (moderate) GERD without esophagitis Restrictive lung disease Obesity (BMI 30-39.9) Benign essential hypertension Pure hypercholesterolemia Diabetes mellitus Pulmonary emboli Chondrosarcoma Hyperlipidemia Chronic restrictive lung disease COPD (chronic obstructive pulmonary disease) Asthma Family History Family History Father Hypertension Kidney failure, acute Mother Lung cancer Family/Other Diabetes Surgical History Surgical History (Updated 07/09/23 @ 15:07 by Sherin Quinteros RN) History of esophagogastroduodenoscopy (EGD) H/O colonoscopy History of inguinal hernia repair Hx of exploratory thoracotomy H/O tooth extraction Social History Social History (Updated 07/09/23 @ 15:09 by Sherin Quinteros RN) Housing: House Alcohol intake: never Patient Tobacco Use Status: Never used Tobacco e-Cigarette/Vaping Use: Never Used Second Hand Smoke Exposure: Yes service: No Current occupational status: unemployed Cognitive needs: No Hearing needs: No Vision needs: Yes Meds Allergies Allergy/AdvReac Type Severity Reaction Status Date / Time pollen extracts [POLLEN] Allergy Mild RUNNY NOSE Verified 07/09/23 14:53 cat dander [CATS] Allergy Unknown UNKNOWN Verified 06/08/23 13:23 dog dander [DOGS] Allergy Unknown UNKNOWN Verified 06/08/23 13:23 mold [MOLD] Allergy Unknown UNKNOWN Verified 06/08/23 13:23 Exam Height,Weight and Vital Signs: Height 5 ft 7.75 in Weight 118.841 kg Pertinent Lab Results Pertinent Lab Results: Laboratory Tests 06/19/23 11:42 WBC 6.7 Hgb 14.7 Hct 44.7 Plt Count 187 Sodium 141 Potassium 4.4 Chloride 100 Carbon Dioxide 31 H BUN 10 Creatinine 1.27 Narrative Narrative: ECHO 2021 Conclusions: - The left ventricular systolic function is normal. The calculated ejection fraction is 67% by biplane method. - There is mild calcification of the aortic valve. - There is mild mitral annular calcification. - Mild pulmonary hypertension is present. Assessment and Plan Assessment Anesthesia Assessment: Chart Reviewed
--- NOTE | 2023-07-13 10:16 | P.CONAN_ITS ---
[facility] Active Problems Active Problems: All Active Problems (Updated 07/09/23 @ 15:10 by Sherin Quinteros RN) Dizziness (Acute) COVID-19 (Acute) Elevated TSH (Acute) Vertigo (Acute) Pain and swelling of right lower extremity (Acute) Shortness of breath (Acute) Urinary frequency (Acute) Anxiety (Acute) Chest pain (Acute) Palpitations (Acute) COPD (chronic obstructive pulmonary disease) (Acute) Chondrosarcoma (Chronic) Current use of anticoagulant therapy (Acute) Current use of anticoagulant therapy (Acute) Vitamin D deficiency (Acute) Chronic kidney disease, stage III (moderate) (Acute) GERD without esophagitis (Acute) Restrictive lung disease (Acute) Obesity (BMI 30-39.9) (Acute) Benign essential hypertension (Acute) Pure hypercholesterolemia (Acute) Diabetes mellitus (Acute) Hyperlipidemia (Acute) Chronic restrictive lung disease (Acute) COPD (chronic obstructive pulmonary disease) (Acute) Asthma (Acute) Past Medical History Medical History Palpitations Vitamin D deficiency Chronic kidney disease, stage III (moderate) GERD without esophagitis Restrictive lung disease Obesity (BMI 30-39.9) Benign essential hypertension Pure hypercholesterolemia Diabetes mellitus Pulmonary emboli Chondrosarcoma Hyperlipidemia Chronic restrictive lung disease COPD (chronic obstructive pulmonary disease) Asthma Functional capacity: independent ambulation Family History Family History Father Hypertension Kidney failure, acute Mother Lung cancer Family/Other Diabetes Family history of problems with anesthesia: No Surgical History Surgical History History of esophagogastroduodenoscopy (EGD) H/O colonoscopy History of inguinal hernia repair Hx of exploratory thoracotomy H/O tooth extraction History of Problems with Anesthesia: No Social History Social History Housing: House Alcohol intake: never Patient Tobacco Use Status: Never used Tobacco e-Cigarette/Vaping Use: Never Used Second Hand Smoke Exposure: Yes service: No Current occupational status: unemployed Cognitive needs: No Hearing needs: No Vision needs: Yes Meds Allergies Allergy/AdvReac Type Severity Reaction Status Date / Time pollen extracts [POLLEN] Allergy Mild RUNNY NOSE Verified 07/09/23 14:53 cat dander [CATS] Allergy Unknown UNKNOWN Verified 06/08/23 13:23 dog dander [DOGS] Allergy Unknown UNKNOWN Verified 06/08/23 13:23 mold [MOLD] Allergy Unknown UNKNOWN Verified 06/08/23 13:23 Active Medications: Current Medications Albuterol Sulfate (Albuterol Sulfate (0.083%) 2.5 Mg/3 Ml Vial.Neb) 2.5 mg INHALE ONCE PRN PRN Reason: Shortness of Breath/Wheezing Lactated Ringer's (Lr) 1,000 mls @ 100 mls/hr IVCONT .Q10H DANIEL Sodium Biphosphate/Sodium Phosphate (Sodium Phosphate,[place]-Dibasic 133 Ml Enema) 133 ml IA ONCE PRN PRN Reason: Poor Colonoscopy Prep Results Exam Height,Weight and Vital Signs: Height 5 ft 7.75 in Weight 118.841 kg Airway Mallampati Class: IV TM Dist: >3cm Neck ROM: Full Heart: RRR Lungs: CTA Assessment and Plan Final Anesthetic Review Family History of Problems with Anesthesia: No History of Problems with Anesthesia: No NPO: Yes ASA Class: III Final Preanesthetic Review: Meds/Allgs Chart Reviewed, Consent Obtained/Reviewed and Anes Risks/Benef Reviewed Patient Risk: Intermediate Procedure Risk: Low Anesthetic Plan Anesthetic Plan: MAC: Disposition: Standard PACU
[2023-07-13 10:54] VITALS: BMI 39.5
[2023-07-13 11:01] VITALS: BP 138/74; PULSE 66; RESP 16; TEMP 35.8; O2SAT 96
[2023-07-13] MEDS: Lactated Ringers 1,000 ML 100 ML IVCONT (11:08)
[2023-07-13] MEDS: Sodium Phosphate,Mono-Dibasic 133 ML ENEMA PR (11:09)
[2023-07-13 11:13] LABS: Glucose, Whole Blood 114 mg/dL (60-115)
[2023-07-13 11:55] VITALS: BP 94/41; PULSE 67; RESP 16; TEMP 36.4; O2SAT 97
--- NOTE | 2023-07-13 11:59 | PM.OP ---
Brief Operative Note Date of Service: 07/13/23 Pre-op diagnosis: Screening Post-op diagnosis: other (Polyp) Procedure: Colonoscopy to the cecum and TI with bx/removal of polyp Surgeon: Tashi Currie MD Anesthesia: MAC Was an Infection Control Coordinator used for this Procedure?: No Estimated blood loss (mL): 2.0 Pathology: other (A. Cecal polyp) Condition: stable Disposition: PACU
[2023-07-13 12:02] VITALS: BP 120/66; PULSE 71; RESP 14; O2SAT 97
[2023-07-13 12:10] VITALS: BP 113/53; PULSE 76; RESP 16; O2SAT 95
--- NOTE | 2023-07-13 12:20 | HO.POSTANES ---
Post Anesthesia Evaluation Post Anesthesia Evaluation Date of Service: 07/13/23 Vital Signs: Vital Signs Temp Pulse Resp BP Pulse Ox O2 Del Method O2 Flow Rate 07/13/23 12:10 76 16 113/53 L 95 Room Air 07/13/23 12:02 71 14 120/66 97 Simple Mask 6 07/13/23 11:55 97.6 F 67 16 94/41 L 97 Simple Mask 6 07/13/23 11:01 96.4 F L 66 16 138/74 96 Room Air Anesthesia: Monitored Mental Status: Awake Pain Control: Satisfactory Nausea/Vomiting: None Hydration: Adequate Anesthesia-Related Issues: No Anes. Related Issues
--- NOTE | 2023-07-13 12:22 | OP_ITS ---
DATE OF SERVICE: 07/13/2023 SURGEON: Tashi Currie MD INDICATIONS: The patient presents for evaluation of personal history of tubular adenoma of the colon and colorectal cancer screening. Full consent was obtained from him for this, including risks of bleeding and perforation. PREOPERATIVE DIAGNOSIS: POSTOPERATIVE DIAGNOSIS: PROCEDURE PERFORMED: ESTIMATED BLOOD LOSS: COMPLICATIONS: ANESTHESIA: Monitored anesthesia care. ASSISTANTS: SPECIMENS: PREOPERATIVE DIAGNOSES: Colorectal cancer screening and personal history of tubular adenoma of the colon. POSTOPERATIVE DIAGNOSES: Colorectal cancer screening and personal history of tubular adenoma of the colon, small colon polyp, diverticulosis, and internal hemorrhoids. PROCEDURES PERFORMED: Colonoscopy to the cecum and terminal ileum with biopsy and removal of polyp. DESCRIPTION OF PROCEDURE: The patient was placed in the left lateral decubitus position. The digital rectal exam revealed no abnormalities. The Olympus video pediatric colonoscope was then entered into the rectum and advanced easily to the cecum. Once in the cecum, I did identify cecal pouch with appendiceal orifice and a normal-appearing ileocecal valve. The terminal ileum was cannulated and appeared normal. The scope was withdrawn back in the colon. The entire cecum and ileocecal valve appeared normal other than a 4 mm polyp in the cecum, which was biopsied and completely removed with the cold biopsy forceps. The scope was then slowly withdrawn, assessing all mucosal surfaces carefully. Preparation was excellent. I did not visualize any sign of other polyps, colitis, or angiodysplasia. There was a mild amount of sigmoid diverticulosis. In the rectum, the scope was retroflexed, visualizing internal hemorrhoids, but no other pathology. The rectal mucosa appeared normal. The scope was straightened and withdrawn from the patient. He tolerated the procedure well and he was returned to the recovery area in stable condition. IMPRESSION: 1. Small colon polyp, status post biopsy removal. 2. Diverticulosis. 3. Internal hemorrhoids. PLAN: The results of the biopsy will be checked. I would recommend a repeat colonoscopy in 5 years. He will, otherwise, see me on a p.r.n. basis. MD ENID Cheney/FINN / [id number]
[2023-07-13 12:25] VITALS: BP 110/72; PULSE 72; RESP 15; TEMP 36.4; O2SAT 97
== END 2023-07-13 12:43 | disposition home or self-care (01) ==
PROVIDERS: PCP Internal Medicine; Visit Provider Internal Medicine
PROC: 0DJD8ZZ Inspection of Lower Intestinal Tract, Via Natural or Artificial Opening Endoscopic (ICD-10-PCS; CPT 45378; principal; 2023-07-13 11:00)
DX: Z12.11 Encounter for screening for malignant neoplasm of colon (principal); Z86.010 Personal history of colon polyps; D12.0 Benign neoplasm of cecum; K57.30 Diverticulosis of large intestine without perforation or abscess without bleeding; K64.8 Other hemorrhoids; K21.9 Gastro-esophageal reflux disease without esophagitis; I10 Essential (primary) hypertension; E11.9 Type 2 diabetes mellitus without complications; J45.909 Unspecified asthma, uncomplicated; Z86.711 Personal history of pulmonary embolism; Z79.01 Long term (current) use of anticoagulants; Z79.4 Long term (current) use of insulin; Z79.84 Long term (current) use of oral hypoglycemic drugs; Z79.899 Other long term (current) drug therapy
CPT/HCPCS: 45380; 82947; 88305; J1596; J2704

== ENCOUNTER 2023-10-12 09:02 | Outpatient (REF) | payer OTHER, SELFPAY ==
[2023-10-12 09:21] LABS: MANUAL DIFF FLAG NO
[2023-10-12 10:10] LABS: Basophils Percent Auto 0.5 % (0-2); Eosinophils Absolute Auto 0.2 X10*3/uL (0.0-0.4); Hematocrit 38.9 % (42.0-52.0); Hemoglobin 12.7 g/dl (14.0-18.0); Imm Gran Abs Auto 0.01 X10*3/uL (0.00-0.03); Imm Gran Pct Auto 0.2 % (0.0-0.4); Lymphocytes Absolute Auto 1.6 X10*3/uL (1.2-4.9); Lymphocytes Percent Auto 27.3 % (20-40); Mean Corpuscular HGB Conc 32.6 g/dl (31.0-36.0); Mean Corpuscular Hemoglobin 30.4 pg (27.0-33.0); Mean Corpuscular Volume 93.1 fL (80.0-98.0); Mean Platelet Volume 10.7 fL (9.4-12.4); Monocytes Absolute Auto 0.4 X10*3/uL (0.1-1.2); Monocytes Percent Auto 7.7 % (2-11); Neutrophils Absolute Auto 3.5 x10*3/uL (2.0-8.3); Neutrophils Percent Auto 61.3 % (45-73); Platelet Count 188 X10*3/uL (160-400); Red Blood Count 4.18 X10*6/uL (4.60-5.80); Red Cell Distribution Width 14.1 % (11.0-16.0); White Blood Count 5.7 X10*3/uL (4.8-10.8)
[2023-10-12 10:14] LABS: Estimated Average Glucose 148 mg/dL; Hemoglobin A1c % 6.8 % (<6.0)
[2023-10-12 10:19] LABS: Appearance Urine Clear; Color Urine Yellow; Glucose Urine UA Negative (Negative); Leukocyte Esterase Urine Negative (Negative); Nitrite Urine Negative (Negative); Specific Gravity - Urine 1.015 (1.005-1.025); UMIC TRIGGER UACC YES; Urine Blood Moderate (2+) (Negative); Urine Ketones Negative (Negative); Urine Protein Trace mg/dL (Neg-Trace)
[2023-10-12 10:25] LABS: Bacteria Urine None Seen (None Seen); Hyaline Casts Urine 0-2 /LPF (0-2); Squamous Epithelial Cell Urine 0-2 /HPF (0-2); WBC Urine 0-5 /HPF (0-5)
[2023-10-12 10:48] LABS: Creatinine Urine 137.01 mg/dL; Microalbum/Creatinine Ratio Ur 35.7 ug/mg cr (<30)
[2023-10-12 10:55] LABS: Alanine Aminotransferase 11 U/L (0-40); Albumin Level 3.9 g/dL (3.5-5.0); Alkaline Phosphatase 79 U/L (39-117); Anion Gap 14 (12-20); Aspartate Amino Transferase 13 U/L (5-37); Bilirubin Total 0.5 mg/dL (0.0-1.0); Blood Urea Nitrogen 11 mg/dL (9-16); Calcium 9.2 mg/dL (8.4-10.2); Carbon Dioxide 26 mmol/L (22-29); Chloride 105 mmol/L (96-108); Cholesterol 125 mg/dL (<200); Estimated Glomerular Filt Rate 55; Glucose Fasting 119 mg/dL (60-99); HDL Cholesterol 29 mg/dL (>40); LDL Cholesterol Calculated 59 mg/dL (<100); Potassium 3.4 mmol/L (3.3-5.1); Sodium 142 mmol/L (135-145); Total Protein 6.7 g/dL (6.5-8.0); Triglycerides 188 mg/dL (<150)
[2023-10-12 11:13] LABS: Free T4 (Free Thyroxine) 1.04 ng/dL (0.71-1.85); Thyroid Stimulating Hormone 2.44 uIU/mL (0.32-4.0); Vitamin D 25-OH Total 82.4 ng/mL (>30)
== END 2023-10-12 09:03 | disposition home or self-care (01) ==
LOC: HO.LAB 09:02
PROVIDERS: PCP Internal Medicine; Visit Provider Internal Medicine
DX: R30.0 Dysuria (principal); E55.9 Vitamin D deficiency, unspecified; E11.9 Type 2 diabetes mellitus without complications; E78.00 Pure hypercholesterolemia, unspecified; R79.89 Other specified abnormal findings of blood chemistry; I10 Essential (primary) hypertension
CPT/HCPCS: 36415; 80053; 80061; 81001; 81003; 82043; 82306; 82570; 83036; 84439; 84443; 85025

== ENCOUNTER 2023-10-19 10:01 | Outpatient (REF) | payer OTHER, SELFPAY ==
[2023-10-19 10:21] LABS: MANUAL DIFF FLAG NO
[2023-10-19 10:50] LABS: Basophils Percent Auto 0.6 % (0-2); Eosinophils Absolute Auto 0.2 X10*3/uL (0.0-0.4); Eosinophils Percent Auto 3.4 % (0-4); Hematocrit 39.9 % (42.0-52.0); Hemoglobin 13.2 g/dl (14.0-18.0); Imm Gran Abs Auto 0.01 X10*3/uL (0.00-0.03); Imm Gran Pct Auto 0.2 % (0.0-0.4); Lymphocytes Absolute Auto 1.3 X10*3/uL (1.2-4.9); Lymphocytes Percent Auto 24.9 % (20-40); Mean Corpuscular HGB Conc 33.1 g/dl (31.0-36.0); Mean Corpuscular Hemoglobin 30.3 pg (27.0-33.0); Mean Corpuscular Volume 91.5 fL (80.0-98.0); Mean Platelet Volume 10.4 fL (9.4-12.4); Monocytes Absolute Auto 0.4 X10*3/uL (0.1-1.2); Monocytes Percent Auto 8.4 % (2-11); Neutrophils Absolute Auto 3.3 x10*3/uL (2.0-8.3); Neutrophils Percent Auto 62.5 % (45-73); Platelet Count 181 X10*3/uL (160-400); Red Blood Count 4.36 X10*6/uL (4.60-5.80); Red Cell Distribution Width 13.9 % (11.0-16.0); White Blood Count 5.2 X10*3/uL (4.8-10.8)
[2023-10-19 10:57] LABS: Estimated Average Glucose 146 mg/dL; Hemoglobin A1c % 6.7 % (<6.0)
[2023-10-19 11:14] LABS: Parathyroid Hormone Intact 49.8 pg/mL (8.7-77.1)
[2023-10-19 11:18] LABS: Appearance Urine Clear; Color Urine Yellow; Glucose Urine UA Negative (Negative); Leukocyte Esterase Urine Negative (Negative); Nitrite Urine Negative (Negative); UMIC TRIGGER UA YES; Urine Blood Moderate (2+) (Negative); Urine Ketones Negative (Negative); Urine Protein Negative (Neg-Trace)
[2023-10-19 11:18] LABS: Anion Gap 11 (12-20); Blood Urea Nitrogen 8 mg/dL (9-16); Calcium 9.5 mg/dL (8.4-10.2); Carbon Dioxide 30 mmol/L (22-29); Chloride 104 mmol/L (96-108); Estimated Glomerular Filt Rate > 60; Iron 43 mcg/dL (45-160); Magnesium 1.7 mg/dL (1.6-2.6); Percent Iron Saturation 17 % (15-50); Phosphorus 3.4 mg/dL (2.7-4.5); Potassium 3.9 mmol/L (3.3-5.1); Sodium 141 mmol/L (135-145); Total Iron Binding Capacity 258 mcg/dL (228-428); Unsaturated Iron Binding 215 ug/dL; Uric Acid 8.3 mg/dL (3.4-7.0)
[2023-10-19 11:23] LABS: Bacteria Urine None Seen (None Seen); Hyaline Casts Urine 0-2 /LPF (0-2); RBC Urine >20 /HPF (0-2); Squamous Epithelial Cell Urine 0-2 /HPF (0-2); WBC Urine 0-5 /HPF (0-5)
[2023-10-19 11:36] LABS: Ferritin 21 ng/mL (20-250); Vitamin D 25-OH Total 84.4 ng/mL (>30)
[2023-10-19 12:13] LABS: Creatinine Urine 69.03 mg/dL; Microalbum/Creatinine Ratio Ur 95.6 ug/mg cr (<30); Total Protein Urine Random 14 mg/dL (<12)
== END 2023-10-19 10:02 | disposition home or self-care (01) ==
LOC: HO.LAB 10:01
PROVIDERS: PCP Internal Medicine; Visit Provider Internal Medicine
DX: E11.22 Type 2 diabetes mellitus with diabetic chronic kidney disease (principal); N18.31 Chronic kidney disease, stage 3a
CPT/HCPCS: 36415; 80051; 81001; 82043; 82306; 82310; 82565; 82570; 82728; 83036; 83540; 83735; 83970; 84100; 84156; 84520; 84550; 85025

== ENCOUNTER 2023-10-26 13:59 | Outpatient (AMB) | payer OTHER, SELFPAY ==
--- NOTE | 2023-10-26 14:29 | A.OFFPC_ITS ---
Vital Signs 10/26/23 14:32 Height 5 ft 7.75 in Weight 265 lb BMI 40.6 BP 132/66 Blood Pressure Location Lt brachial Position Sitting Pulse 61 Pulse Source Pulse Oximeter Pulse Oximetry (%) 96 Oxygen Delivery Method Room Air Intake Visit Reasons: DM, hyperlipidemia, GERD, asthma Intake Note: Patient is here to follow up on DM, HLD, GERD, Asthma. Golf Manager Required: No Center Rep: Not Required per policy Accompanied by: Self / Same As Patient Allergies pollen extracts [POLLEN] Allergy (Mild, Verified 11/23/23 04:10) RUNNY NOSE cat dander [CATS] Allergy (Unknown, Verified 11/23/23 04:10) UNKNOWN dog dander [DOGS] Allergy (Unknown, Verified 11/23/23 04:10) UNKNOWN mold [MOLD] Allergy (Unknown, Verified 11/23/23 04:10) UNKNOWN Medication List - Last Reconciled 11/23/23 by Bon Arvizu MD atenolol 25 mg PO DAILY atorvastatin 40 mg PO DAILY 90 days bupropion HCl XL 150 mg PO QAM 30 days cholecalciferol (vitamin D3) 50 mcg PO DAILY 90 days escitalopram oxalate 20 mg PO QAM ferrous sulfate 325 mg PO DAILY insulin glargine (Lantus Solostar U-100 Insulin) 20 units (0.2 mL) subcut QPM 30 days lorazepam 0.5 mg PO BID PRN 15 days metformin 1,000 mg PO BID 90 days montelukast 10 mg PO DAILY omeprazole 40 mg PO DAILY 90 days ondansetron 4 mg PO Q8H PRN pen needle, diabetic (BD Ultra-Fine Estrella Pen Needle) As directed tamsulosin 0.4 mg PO BEDTIME 30 days trazodone 50 mg PO BEDTIME PRN Ventolin HFA 90 mcg/actuation (albuterol sulfate) 2 puffs PO Q4H PRN NS Tobacco use date assessed: 10/26/23 Dental Screening Dental Screen Date: 10/26/23 Did you have a dental visit in the last 12 months?: Yes Did you have a dental problem in the last 6 months where you did not have access to dental care?: No Was dental information given to patient?: Patient has dentist HPI DM, hyperlipidemia, GERD, asthma 2 HPI Details Patient comes in today for his follow up visit States that he feels okay except for increasing difficulty sleeping at night lately He denies any headaches or dizziness Denies any chest pains, no increased SOB No nausea/vomiting, no abdominal pain No change in bowel habits noted Had his follow up labs done last week - to discuss his results [facility] Medical History (Updated 11/23/23 @ 04:21 by Bon Arvizu MD) Insomnia Palpitations Vitamin D deficiency Chronic kidney disease, stage III (moderate) GERD without esophagitis Restrictive lung disease Obesity (BMI 30-39.9) Benign essential hypertension Pure hypercholesterolemia Diabetes mellitus Pulmonary emboli Chondrosarcoma Hyperlipidemia Chronic restrictive lung disease COPD (chronic obstructive pulmonary disease) Asthma Surgical History History of esophagogastroduodenoscopy (EGD) H/O colonoscopy History of inguinal hernia repair Hx of exploratory thoracotomy H/O tooth extraction Family History Father Hypertension Kidney failure, acute Mother Lung cancer Family/Other Diabetes Social History Housing: House Alcohol intake: never Patient Tobacco Use Status: Never used Tobacco e-Cigarette/Vaping Use: Never Used Second Hand Smoke Exposure: Yes service: No Current occupational status: unemployed Cognitive needs: No Hearing needs: No Vision needs: Yes (Glasses) Questionnaire PHQ-9 Over the last 2 weeks, how often have you been bothered by any of the following problems? 1. Little interest or pleasure in doing things: not at all 2. Feeling down, depressed, or hopeless: not at all 3. Trouble falling or staying asleep, or sleeping too much: not at all 4. Feeling tired or having little energy: not at all 5. Poor appetite or overeating: not at all 6. Feeling bad about yourself - or that you are a failure or have let yourself or your family down: not at all 7. Trouble concentrating on things, such as reading the newspaper or watching television: not at all 8. Moving or speaking so slowly that other people could have noticed. Or the opposite - being so fidgety or restless that you have been moving around a lot more than usual: not at all 9. Thoughts that you would be better off or of hurting yourself in some way: not at all Total score: 0 Depression Screening Interpretation: Negative Depression Screening Done: Yes 80938 - PHQ-9 Billing: Yes Source: Developed by Drs. Tashi Michael, Laura Archer, Ambrosio Xie and colleagues, with an educational maría elena from [employer]. Thrive Questionnaire Date Thrive assessed: 10/26/23 I am a: Patient What is your living situation today?: I have a steady place to live Within the past 12 months, did the food you bought not last and you didn't have the money to get more?: Never true Within the past 12 months, did you worry whether your food would run out before you got money to buy more?: Never true Do you have trouble paying for medicines?: No Do you have trouble getting transportation to medical appointments?: No Do you have trouble paying your heating and electricity bill?: No Do you have trouble taking care of your child, family member or friend?: No Do you have trouble with day-to-day activities such as bathing, preparing meals, shopping, managing finances, etc.?: No Are you currently unemployed and looking for a job?: No Are you interested in more education?: No Currently or been in a relationship where the following occur: no concerns reported THRIVE Score: 0 AUDIT C Alcohol Use Questionnaire (AUDIT-C) 1. How often do you have a drink containing alcohol?: Never 3. How often do you have six or more drinks on one occasion?: Never Total Score: 0 Score Reviewed/Action Taken: Yes CATIE-7 AMB Questionnaire CATIE-7 Date CAITE - 7 assessed: 10/26/23 Feeling nervous, anxious, or on edge: 0 = Not at all Not being able to stop or control worryin = Not at all Worrying too much about different things: 0 = Not at all Trouble relaxin = Not at all Being so restless that it is hard to sit still: 0 = Not at all Becoming easily annoyed or irritable: 0 = Not at all Feeling afraid as if something awful might happen: 0 = Not at all Total CATIE-7 score (0-4 normal; 5-9 mild; 10-14 moderate; 15-21 severe): 0 Source: Developed by Drs. Tashi Michael, Laura Archer, Ambrosio Xie and colleagues, with an educational maría elena from [employer]. Review of Systems Const Denies chills, Reports difficulty sleeping (increasing), Denies fatigue, Denies fever(s) and Denies headache(s) ENT Denies dysphagia, Denies dizziness, Denies otalgia, Denies headache(s), Denies neck pain, Denies odynophagia and Denies sore throat Card Denies chest pain, Denies rapid heart rate and Denies dyspnea Resp Denies cough, Denies dyspnea and Denies wheezing GI Denies abdominal pain, Denies constipation, Denies dysphagia, Denies heartburn, Denies diarrhea, Denies nausea, Denies odynophagia and Denies vomiting Denies dysuria, Reports nocturia (improving) and Reports urinary frequency (improving) Musc Denies back pain and Denies neck pain Skin/Breast Denies rash Neuro Denies dizziness and Denies headache(s) Psych Reports anxiety (often) Endo Denies fatigue Edu/Lymph Details: (+) swelling of the right leg and of both feet Aller/Immun Denies wheezing Physical exam (Primary Care) Vital Signs: Last Vital Signs Pulse 61 10/26/23 14:32 BP 132/66 10/26/23 14:32 Pulse Ox 96 10/26/23 14:32 Oxygen Delivery Method Room Air 10/26/23 14:32 BMI result Body Mass Index 40.6 Tobacco/Smoking Status: Tobacco use Status Tobacco use date assessed 10/26/23 10/26/23 14:48 Patient Tobacco Use Status Never used Tobacco 10/26/23 14:48 e-Cigarette/Vaping Use Never Used 10/26/23 14:48 PHQ-9: PHQ-9 Score PHQ-9: Total score 0 10/26/23 15:24 Depression Screening Interpretation: Negative Thrive Assessment: Date of Thrive Assessment Date Thrive assessed 10/26/23 10/26/23 14:48 Currently or been in a relationship where the following occur: no concerns reported Const General: no acute distress and alert HENMT Ears: TM's normal bilaterally and EAC's normal Throat: Yes posterior oropharynx normal and Yes tonsils normal (no TP congestion) Neck Neck: Yes no lymphadenopathy and Yes supple Thyroid: Thyroid normal Resp Auscultation: clear to auscultation bilaterally, no rales and no wheezes Cardio Rate: regular rate Rhythm: regular rhythm Heart sounds: no murmurs GI Palpation (GI): Soft to palpation and nontender Auscultation: normal bowel sounds General: Yes no CVA tenderness Back/Spine/Pelvis Back: no CVA tenderness Thoracic/Lumbar Spine: No lumbar spinal tenderness Skin Rashes: no rashes Extrem General: Yes no clubbing, cyanosis or edema Results Reviewed Results Reviewed: Laboratory Tests 10/12/23 10/19/23 10/19/23 09:07 10:17 10:18 WBC 5.2 Hgb 13.2 L Hct 39.9 L Plt Count 181 Sodium 141 Potassium 3.9 Creatinine 1.21 Estimated GFR > 60 Fasting Glucose 119 H Hemoglobin A1c % 6.7 H Uric Acid 8.3 H Calcium 9.5 Iron 43 L TIBC 258 % Saturation 17 Ferritin 21 AST 13 ALT 11 Triglycerides 188 H Cholesterol 125 LDL Cholesterol, Calc 59 HDL Cholesterol 29 L 25-OH Vitamin D Total 84.4 TSH 2.44 Free T4 1.04 PTH Intact 49.8 Ur Specific [place] 1.010 Urine Protein Negative Urine Glucose (UA) Negative Urine Blood Moderate (2+) H Urine Nitrite Negative Ur Leukocyte Esterase Negative Microalb/Creat Ratio 95.6 H Assessment and Plan Assessment & Plan (1) Diabetes mellitus: Comment: taking Lantus insulin, Metformin, Montelukast Code(s): E11.9 - Type 2 diabetes mellitus without complications Qualifiers: Diabetes mellitus complication status: with hyperglycemia Diabetes mellitus termite exterminator helper insulin use: without termite exterminator helper use Diabetes mellitus type: type 2 Qualified Code(s): E11.65 - Type 2 diabetes mellitus with hyperglycemia Plan: Patient's HgbA1c was at 6.7% on his labs done last week (HgbA1c was at 5.9% when previously checked in March 2023) - goal is <7.0% Reinforced diabetic diet Continue Lantus 20 units QD and Metformin 1000 mg BID for now (2) Pure hypercholesterolemia: Code(s): E78.00 - Pure hypercholesterolemia, unspecified Plan: Results of his labs done last week reviewed and discussed with patient Reinforced low cholesterol diet Continue Atorvastatin 40 mg QD Will recheck his labs and fasting lipids in 3 months for follow-up (3) Benign essential hypertension: Code(s): I10 - Essential (primary) hypertension Plan: Reinforced low sodium diet - goal is systolic BP of 120 mm or less Continue Atenolol 25 mg QD (4) Chronic kidney disease, stage III (moderate): Code(s): N18.30 - Chronic kidney disease, stage 3 unspecified Qualifiers: Chronic kidney disease stage 3 subtype: stage 3a (GFR 45-59) Qualified Code(s): N18.31 - Chronic kidney disease, stage 3a Plan: His serum creatinine and GFR have remained steady and are mostly unchanged on his recent labs Renal US done last year came back grossly normal Follow up with nephrology as scheduled Will continue to monitor his renal function regularly (5) Vitamin D deficiency: Code(s): E55.9 - Vitamin D deficiency, unspecified Plan: Continue Vitamin D3 2000 units QD (6) Elevated TSH: Code(s): R79.89 - Other specified abnormal findings of blood chemistry Plan: His serum TSH and free T4 level were both normal on his recent labs; patient is clinically euthyroid Will continue to monitor his TFTs regularly (7) COPD (chronic obstructive pulmonary disease): Code(s): J44.9 - Chronic obstructive pulmonary disease, unspecified Qualifiers: COPD type: unspecified COPD Qualified Code(s): J44.9 - Chronic obstructive pulmonary disease, unspecified Plan: Continue Albuterol HFA 2 inhalations every 6 hours PRN He used to be on Trelegy but his insurance declined to continue covering his Rx PFTs done last year showed only findings of mild COPD Follow up with pulmonary as scheduled (8) Palpitations: Code(s): R00.2 - Palpitations Plan: States that his symptoms have improved/subsided lately, and that these were most likely related to his anxiety as his symptoms supposedly resolved with some Ati van in the ER last year EKG done in the ER back then came out normal = NSR, HR = 81 bpm, with no acute ST-T wave changes Holter monitor, echocardiogram and cardiac event monitor done (by cardiology) o clement the past few months have also all been normal (9) Urinary frequency: Code(s): R35.0 - Frequency of micturition Plan: Patient states that his urinary frequency has improved a lot (though not completely) with Tamsulosin - symptoms are likely due to BPH Serum PSA level was normal when last checked Continue Tamsulosin 0.4 mg Q HS To consider referral to urology if his urinary frequency or symptoms continue to persist or progress (10) Insomnia: Code(s): G47.00 - Insomnia, unspecified Qualifiers: Insomnia type: unspecified Qualified Code(s): G47.00 - Insomnia, unspecified Plan: Sleep hygiene discussed Will start patient on Trazodone 50 mg Q HS PRN (11) Anxiety: Code(s): F41.9 - Anxiety disorder, unspecified Plan: Continue Escitalopram 20 mg QD, Bupropion XL 150 mg Q AM and Lorazepam 0.5 mg BID PRN (12) Obesity (BMI 30-39.9): Comment: He remains grossly overweight. Denies symptoms of sleep apnea. Trying to lose weight on his own with diet and exercise. However he is not able to do much exercise, as he cannot walk much. Code(s): E66.9 - Obesity, unspecified Plan: Reinforced diet/exercise as tolerated/lose weight Plan Follow up in 3 months Orders: Orders Lipid Panel 3 Months E78.00 - Pure hypercholesterolemia, unspecified UA CC w/rflx Micro + Cult 3 Months R30.0 - Dysuria Microalbumin, Random (w Creat) 3 Months E11.9 - Type 2 diabetes mellitus without complications Hemoglobin A1c 3 Months E11.9 - Type 2 diabetes mellitus without complications Complete Blood Count Auto Diff 3 Months D64.9 - Anemia, unspecified Comprehensive [place]. Panel Fast 3 Months E78.00 - Pure hypercholesterolemia, unspecified Medications: New trazodone 50 mg PO BEDTIME PRN 90 tabs 0RF sleep Coding Level of Care Code Est Pt Level 4 (65129) Complex EM visit Add On G2211 Diagnoses Type 2 diabetes mellitus with hyperglycemia, without long-term current use of insulin E11.65 Diabetes mellitus complication status: with hyperglycemia Diabetes mellitus termite exterminator helper insulin use: without termite exterminator helper use Diabetes mellitus type: type 2 Pure hypercholesterolemia E78.00 Benign essential hypertension I10 Stage 3a chronic kidney disease N18.31 Chronic kidney disease stage 3 subtype: stage 3a (GFR 45-59) Vitamin D deficiency E55.9 Elevated TSH R79.89 Chronic obstructive pulmonary disease, unspecified COPD type J44.9 COPD type: unspecified COPD Palpitations R00.2 Urinary frequency R35.0 Insomnia, unspecified type G47.00 Insomnia type: unspecified Anxiety F41.9 Obesity (BMI 30-39.9) E66.9
[2023-10-26 14:32] VITALS: BP 132/66; PULSE 61; O2SAT 96; BMI 40.6
== END 2023-10-26 15:27 | disposition home or self-care (01) ==
PROVIDERS: PCP Internal Medicine; Visit Provider Internal Medicine
DX: I12.9 Hypertensive chronic kidney disease with stage 1 through stage 4 chronic kidney disease, or unspecified chronic kidney disease (principal); E11.65 Type 2 diabetes mellitus with hyperglycemia; N18.31 Chronic kidney disease, stage 3a; J44.9 Chronic obstructive pulmonary disease, unspecified; E78.00 Pure hypercholesterolemia, unspecified; E55.9 Vitamin D deficiency, unspecified; R79.89 Other specified abnormal findings of blood chemistry; R00.2 Palpitations; R35.0 Frequency of micturition; G47.00 Insomnia, unspecified; F41.9 Anxiety disorder, unspecified; E66.9 Obesity, unspecified
CPT/HCPCS: 99214; G2211

== ENCOUNTER 2023-12-08 12:40 | Outpatient (REF) | payer OTHER, SELFPAY ==
--- NOTE | ~2023-12-08 | XR_ITS ---
EXAMINATION: XR CHEST CLINICAL INFORMATION: Chronic obstructive pulmonary disease. COMPARISON: CT chest 03/14/2021, chest x-ray 03/13/2021 and 03/06/2012. TECHNIQUE: 2 views of the chest were obtained. FINDINGS: S-shaped thoracolumbar scoliosis with multilevel degenerative changes. Redemonstration of postsurgical changes in the left hemithorax with pleural-parenchymal scarring, volume loss. Increased left basilar opacities may represent atelectasis although an infectious/inflammatory process should also be considered in the appropriate clinical setting. Small left pleural effusion. Multiple left rib deformities again seen. XR/XR chest 2V IMPRESSION: Redemonstration of postsurgical changes in the left hemithorax with pleural-parenchymal scarring, volume loss. Increased left basilar opacities may represent atelectasis although an infectious/inflammatory process should also be considered in the appropriate clinical setting. Small left pleural effusion.
== END 2023-12-08 12:41 | disposition home or self-care (01) ==
LOC: HO.XRAY 12:40
PROVIDERS: PCP Internal Medicine; Visit Provider Internal Medicine
DX: J44.9 Chronic obstructive pulmonary disease, unspecified (principal); J98.4 Other disorders of lung; E66.9 Obesity, unspecified
CPT/HCPCS: 71046; 94010; 99212

== ENCOUNTER 2023-12-08 12:40 | Outpatient (AMB) | payer OTHER, SELFPAY ==
[2023-12-08 13:14] VITALS: BP 130/80; PULSE 58; O2SAT 96; BMI 40.0
--- NOTE | 2023-12-08 13:14 | A.OFFVIS_ITS ---
Vital Signs 12/08/23 13:14 Height 5 ft 7 in Weight 255 lb 11.779 oz BMI 40.0 BP 130/80 Blood Pressure Location Lt brachial Position Sitting Pulse 58 Pulse Source Pulse Oximeter Pulse Oximetry (%) 96 Oxygen Delivery Method Room Air Intake Visit Reasons: COPD Intake Note: pt is here for follow up and states he is feeling the same., weather makes it worse Beauty Therapist Required: No Allergies pollen extracts [POLLEN] Allergy (Mild, Verified 12/08/23 13:29) RUNNY NOSE cat dander [CATS] Allergy (Unknown, Verified 12/08/23 13:29) UNKNOWN dog dander [DOGS] Allergy (Unknown, Verified 12/08/23 13:29) UNKNOWN mold [MOLD] Allergy (Unknown, Verified 12/08/23 13:29) UNKNOWN Medication List - Last Reconciled 12/08/23 by Bryant Correa MD atenolol 25 mg PO DAILY atorvastatin 40 mg PO DAILY 90 days bupropion HCl XL 150 mg PO QAM 30 days cholecalciferol (vitamin D3) 50 mcg PO DAILY 90 days escitalopram oxalate 20 mg PO QAM ferrous sulfate 325 mg PO DAILY insulin glargine (Lantus Solostar U-100 Insulin) 20 units (0.2 mL) subcut QPM 30 days lorazepam 0.5 mg PO BID PRN 15 days metformin 1,000 mg PO BID 90 days montelukast 10 mg PO DAILY omeprazole 40 mg PO DAILY 90 days ondansetron 4 mg PO Q8H PRN pen needle, diabetic (BD Ultra-Fine Estrella Pen Needle) As directed tamsulosin 0.4 mg PO BEDTIME 30 days trazodone 50 mg PO BEDTIME PRN Ventolin HFA 90 mcg/actuation (albuterol sulfate) 2 puffs PO Q4H PRN NS Do you need a note to return to daycare/school/sports/work: No HPI HPI COPD: Details: Jasbir is 53 years old gentleman grossly obese, but recently has lost about 10 lb of weight, He is here for his follow-up for mild bronchial asthma/restrictive lung disease and also allergic rhinitis. 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 He has been left with restrictive lung disorder. He never smoked. HE HAD PULMONARY EMBOLISM BACK IN 2015, REMAINED ON ANTICOAGULATION UP UNTIL 2020 WHEN IT WAS STOPPED. He has mild bronchial asthma which flares up due to change in the weather or climate. He uses Ventolin inhaler p.r.n.. For allergic rhinitis he uses montelukast 10 mg daily but only when his symptoms get worse and persistent Overall he is doing very well. [facility], [facility] Medical History (Updated 12/08/23 @ 13:44 by Bryant Correa MD) Allergic rhinitis Insomnia Palpitations Vitamin D deficiency Chronic kidney disease, stage III (moderate) GERD without esophagitis Restrictive lung disease Obesity (BMI 30-39.9) Benign essential hypertension Pure hypercholesterolemia Diabetes mellitus Pulmonary emboli Chondrosarcoma Hyperlipidemia Chronic restrictive lung disease COPD (chronic obstructive pulmonary disease) Asthma Surgical History History of esophagogastroduodenoscopy (EGD) H/O colonoscopy History of inguinal hernia repair Hx of exploratory thoracotomy H/O tooth extraction Family History Father Hypertension Kidney failure, acute Mother Lung cancer Family/Other Diabetes Social History Housing: House Alcohol intake: never Patient Tobacco Use Status: Never used Tobacco e-Cigarette/Vaping Use: Never Used Second Hand Smoke Exposure: Yes service: No Current occupational status: unemployed Cognitive needs: No Hearing needs: No Vision needs: Yes (Glasses) Review of Systems Const All systems reviewed & are unremarkable except as noted in HPI and below Eyes Reports no additional complaints ENT Reports nasal congestion (Mild off and on) Card Denies chest pain, Denies irregular heart rhythm, Denies leg edema and Reports dyspnea on exertion Resp Reports as per HPI and Reports dyspnea on exertion GI Reports heartburn (Being treated for GERD with omeprazole) Reports no additional complaints Musc Reports back pain (Mild) and Reports other (Inter stitch sided chest wall pain) Skin/Breast Reports system reviewed and no additional complaints, except as documented Neuro Reports no additional complaints Psych Reports depression (Treated with med) Endo Reports other (Type 2 diabetes being treated with metformin) Physical Exam Vital Signs: Last Vital Signs Pulse 58 12/08/23 13:14 BP 130/80 12/08/23 13:14 Pulse Ox 96 12/08/23 13:14 Oxygen Delivery Method Room Air 12/08/23 13:14 BMI result Body Mass Index 40.0 Const General: cooperative, no acute distress, alert and awake Orientation/consciousness: patient oriented x3 HEENT Head: Yes normal to inspection General nose exam: No nasal polyps present and No nasal discharge present Face and sinus: Yes sinuses nontender Mouth: oropharynx normal Throat: Yes posterior oropharynx normal Eyes General: appearance normal, both eyes and all related structures Neck Neck: Yes normal visual inspection and Yes no JVD Thyroid: Thyroid normal Chest Other: Left chest wall abnormality status post remote surgery Chest palpation & inspection: normal inspection of the chest (Extensive scars on the left lower chest wall from previous surgery), normal palpation of entire chest wall and no tenderness Resp Other: Breath sounds are markedly diminished over the left lower lung . Percussion note is resonant on the right side, with decreased breath sounds, but no wheezes or rhonchi are heard. Effort & Inspection: normal respiratory effort, able to speak in complete sentences and not labored Auscultation: clear to auscultation bilaterally, no crackles, no rales, no rhonchi and no wheezes Cardio Palpation: normal PMI Rate: regular rate Rhythm: regular rhythm Heart sounds: S1 normal heart sound present and S2 normal heart sound present Peripheral pulses: Peripheral pulses 2+ throughout GI Inspection: Yes normal to inspection Palpation (GI): Soft to palpation, nontender, No hepatosplenomegaly present and no masses Auscultation: normal bowel sounds Back/Spine/Pelvis Thoracic/Lumbar Spine: thoracic and lumbar spine normal to inspection and thoraco-lumbar ROM limited Skin General skin exam: no rashes or lesions noted Neuro General: patient oriented x3 Cranial nerves: Yes CN's II-XII intact bilaterally Extrem General: Yes normal to inspection and No edema Psych Appearance: grossly normal and well kempt Speech and movement: Normal speech and movement present Office Procedures Spirometry Testing Spirometry Comments: In office spirometry completed with results given to Dr Correa. 48086- Spirometry Results Reviewed Results Reviewed: SPIROMETRY : Spirometry findings show very small lung volumes consistent with severe restrictive pulmonary disorder. Compared to the findings of PFT in 2020, the flow volumes are much decreased. Chest x-ray is ordered Assessment & Plan Assessment & Plan (1) Obesity (BMI 30-39.9): Comment: He remains grossly overweight. Denies symptoms of sleep apnea. Trying to lose weight on his own with diet and exercise. DID LOSE ABOUT 10 LB IN THE LAST 6 MONTHS. However he is not able to do much exercise, as he cannot walk long distance Code(s): E66.9 - Obesity, unspecified Category: Medical Plan: Talked about his diet and advised him to restrict the calories intake as much as he can (2) Asthma: Comment: See under Asthma /COPD Code(s): J45.909 - Unspecified asthma, uncomplicated Category: Medical Plan: as under copd (3) COPD (chronic obstructive pulmonary disease): Comment: THE PULMONARY FUNCTION TEST DID NOT SHOW CHRONIC OBSTRUCTIVE PULMONARY DISEASE. IF AT ALL IT IS MILD. PATIENT HAS INTERMITTENT COUGH WHICH MAY BE DUE TO UPPER AIRWAY ALLERGIES OR MILD BRONCHIAL ASTHMA. Code(s): J44.9 - Chronic obstructive pulmonary disease, unspecified Category: Medical Plan: Ventolin HFA 2 puffs Q 6 hours p.r.n. 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 GROSS OBESITY ALSO CONTRIBUTES TO RESTRICTIVE DISORDER. Chest x-ray is ordered . Just for a baseline. Code(s): J98.4 - Other disorders of lung Category: Medical Plan: Advise that he should do deep breathing exercises 2 or 3 times a day on a regular basis. Encouraged to keep on losing weight slowly. (5) Allergic rhinitis: Comment: Jasbir has longstanding intermittent allergic rhinitis. This is secondary to nonspecific triggers, especially change in the climate , temperature or humidity. Code(s): J30.9 - Allergic rhinitis, unspecified Category: Medical Plan: Montelukast 10 mg once a day, which he can use p.r.n. if his symptoms flare up. Also may use loratadine 10 mg once a day p.r.n.. Orders: Orders AMB Spirometry Testing Today J44.9 - Chronic obstructive pulmonary disease, unspecified XR chest 2V Today J44.9 - Chronic obstructive pulmonary disease, unspecified, J98.4 - Other disorders of lung Coding Level of Care Code Est Pt Level 4 (62145) Diagnoses Obesity (BMI 30-39.9) E66.9 Asthma J45.909 COPD (chronic obstructive pulmonary disease) J44.9 Chronic restrictive lung disease J98.4 Allergic rhinitis J30.9 CPT Codes Spirometry - CPT: 48717- Spirometry ([id number])
== END 2023-12-08 13:48 | disposition home or self-care (01) ==
PROVIDERS: PCP Internal Medicine; Visit Provider Internal Medicine
DX: E66.9 Obesity, unspecified (principal); J45.909 Unspecified asthma, uncomplicated; J44.9 Chronic obstructive pulmonary disease, unspecified; J98.4 Other disorders of lung; J30.9 Allergic rhinitis, unspecified
CPT/HCPCS: 94010; 99214

== ENCOUNTER → 2024-01-07 11:36 | Outpatient (RCR) | payer OTHER, SELFPAY ==
--- NOTE | 2020-07-23 12:43 | PM.HEMONCPN ---
Medical Summary - Medical Summary Date of Service: 07/23/20 Chief complaint: Follow-up Medical Summary: Mr. 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 He underwent a left thoracotomy, en bloc chest wall resection of the posterior short segment of ribs 4 through 7, chest wall reconstruction for a mass found in the chest. 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 Tumor did not invade the parietal pleura. Margins of excision were negative. Tumor grade 1 of 3. The patient has had followup with Dr. Fields at [facility] for a few years, but now is unable to do so because of transportation issues. Pt admitted to [facility] end of December 2015 with complaints of shortness of breath, found to have small bilateral pulmonary emboli and an enlarging posterior chest wall mass as well as mediastinal/axillary adenopathy. He had 2 biopsies, both negative for malignancy and demonstrated only fibrous tissue. CT angiogram of the chest performed 01/03/16 demonstrated increasing size of tumor 14 cmx 9.3x6.7 cms involving posterior medial left chest wall with invasion into the lung, chest wall and bony destruction of adjacent ribs and transverse process of spinal column. Increased lymphadenopathy in the mediastinum and left hilum. Upper lobe pulmonary emboli. Patient was started on warfarin, biopsies of left chest wall mass demonstrated only fibrous tissue. A third biopsy done at [facility] also revealed only inflammatory cells. He remains asymptomatic. Repeat CT chest with contrast 02/18 showed stable findings with decrease in size of mediastinal LN. He was seen by his surgical oncologist Dr. Susanna Fields sept 2015, no further intervention recommended because of negative biopsies. Last CT chest in June 2016 shows slight increase in chest mass as well as adenopathy. He has seen CT surgeon at [place] as he is unable to travel to [facility]. Small segmental bilateral pulmonary emboli diagnosed in 2015. Repeat CT angiogram in 2018 was negative for pulmonary embolism. Patient received anticoagulation with warfarin from 2015 until July 2020. Interval History Interval history: Patient is here in follow-up. He is doing well and has no new complaints today. He denies any pleuritic chest pain, cough or shortness of breath. He has been on warfarin since 2016. No leg pain or swelling. He did developed iron deficiency anemia in 2019 and required iron dextran therapy. Review of Systems - Constitutional Reports no additional constitutional complaints - Cardiovascular Reports no additional cardiovascular complaints - Respiratory Reports no additional respiratory complaints [facility] Medical History: Medical History (Last Updated 07/23/20 @ 14:52 by Alisha Moore MD) Asthma Chondrosarcoma Chronic restrictive lung disease COPD (chronic obstructive pulmonary disease) Hyperlipidemia Pulmonary emboli Family History: Family History (Last Reviewed 07/09/20 @ 13:06 by Sudarshan Garcia) Father Hypertension Kidney failure, acute Mother Lung cancer Family/Other Diabetes Surgical History: Surgical History (Last Reviewed 07/09/20 @ 13:06 by Sudarshan Garcia) H/O tooth extraction History of inguinal hernia repair Hx of exploratory thoracotomy Social History: Social History (Last Updated 07/23/20 @ 13:02 by Tequila Adams) Alcohol History: Alcohol intake: former Alcohol History Details: Alcohol intake frequency: does not drink Tobacco History: Smoking Status: Never smoker Tobacco Type: Cigarette Substance Use History: Use of substances other than those prescribed or required for medical reasons: No Oncology Screenings - ECOG Performance Status ECOG Performance Status: 1 Home Medications and Allergies Allergies Allergy/AdvReac Type Severity Reaction Status Date / Time cat dander [CATS] Allergy Unknown UNKNOWN Verified 07/09/20 13:06 dog dander [DOGS] Allergy Unknown UNKNOWN Verified 07/09/20 13:06 mold [MOLD] Allergy Unknown UNKNOWN Verified 07/09/20 13:06 pollen extracts [POLLEN] Allergy Unknown RUNNY NOSE Verified 07/09/20 13:06 Exam Vital signs: Vital Signs Temp Pulse Resp BP Pulse Ox 07/23/20 12:59 98.3 F 58 12 171/82 H 96 Intake and Output 07/22/20 07/23/20 07/23/20 22:59 06:59 14:59 Other: Weight 110 kg [place] Weight in Grams [id number] Patient Weight 07/24/20 06:59 Weight 110 kg - Constitutional Present: no acute distress - Routine HEENT Exam Head: Present: normal inspection Eye: Present: EOMI - Routine Neck Exam Present: full ROM. Absent: lymphadenopathy - Routine Chest/Breast/Axilla Exam Axillae: Present: lymphadenopathy Comments: Left posterior and lateral chest wall with surgical scar, significant skin in duration. Healed superficial ulcerations 1 or 2 partially closed. Palpable left axillary lymph node which is stable. - Routine Respiratory Exam Present: CTAB - Routine Cardiovascular Exam Cardiovascular: Present: RRR, S1, S2 - Routine Abdominal Exam Present: soft - Routine Extremities Exam Absent: pedal edema - Routine Skin Exam Present: normal turgor Data - Labs Labs: Laboratory Tests 05/30/20 05/30/20 13:55 13:55 WBC 6.5 RBC 5.27 Hgb 15.0 Hct 44.0 MCV 83.5 Plt Count 189 Sodium 136 Potassium 3.4 Chloride 101 BUN 6 L Creatinine 1.23 Progress Note: A/P (1) Chondrosarcoma Status: Chronic Assessment and plan: 1. 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 This was a conventional sarcoma arising from the left sixth rib, which measured 4.9 x 4.5 x 4.3 cm, resected with the left thoracotomy and en bloc resection of chest wall and reconstruction. Tumor grade 1/3. All margins were negative. The patient apparently received adjuvant radiation therapy following the resection. All his care was at [facility]. On imaging studies patient was found to have opacification along they have resection measuring up to 6 cm along with soft tissue density and enlarged left axillary lymph nodes. Multiple biopsies were negative for malignancy. He had another biopsy of left axillary lymph node in May 2019. This was negative for carcinoma as well as lymphoma. 2. Bilateral pulmonary emboli dx in Dec 2015. Patient has been on warfarin. Repeat CT angiogram in 2018 was negative for PE. I have asked him now to stop warfarin. 3. Iron deficiency anemia, occult GI blood losses secondary to warfarin. He was seen by Dr. Currie in August 2017. He underwent both EGD and colonoscopy. Hyperplastic polyps and tubular adenoma from the cecum removed. Patient received iron dextran therapy in January 2020 with good results. He has been taken off warfarin as of 07/23/2020. Follow-up in 1 year. - Time Spent With Patient Total time spent is greater than 50% in coordination of care (as documented) at patient's floor/unit and/or counseling patient: 25 - 35 minutes
[2020-07-23 12:59] VITALS: BP 171/82; PULSE 58; RESP 12; TEMP 36.8; O2SAT 96; BMI 36.8
--- NOTE | 2020-07-23 13:37 | MHC.HEMONCMA ---
Patient came in for a follow up today, states he is doing well. States he has lost some weight and that he is trying really hard to do so. Clinical summary reviewed and updated. Patient does not need labs, had them done 05/2020 at his HGB was 15. He will come back in 6 months for a follow up.
--- NOTE | 2021-07-23 07:31 | HO.HEMONCSCH ---
Left message regarding no show apt. N/S Letter also mailed.
== END | disposition home or self-care (01) ==
LOC: HO.ONC 07-23 12:29
PROVIDERS: PCP Internal Medicine; Visit Provider Internal Medicine
DX: D50.9 Iron deficiency anemia, unspecified (principal); Z86.711 Personal history of pulmonary embolism; Z85.89 Personal history of malignant neoplasm of other organs and systems; Z92.3 Personal history of irradiation
CPT/HCPCS: 99214

== ENCOUNTER 2024-01-21 10:42 | Outpatient (REF) | payer OTHER, SELFPAY ==
[2024-01-21 11:03] LABS: MANUAL DIFF FLAG NO
[2024-01-21 11:42] LABS: Basophils Percent Auto 0.5 % (0-2); Eosinophils Absolute Auto 0.2 X10*3/uL (0.0-0.4); Eosinophils Percent Auto 3.1 % (0-4); Hematocrit 41.5 % (42.0-52.0); Hemoglobin 13.4 g/dl (14.0-18.0); Imm Gran Abs Auto 0.01 X10*3/uL (0.00-0.03); Imm Gran Pct Auto 0.2 % (0.0-0.4); Lymphocytes Absolute Auto 1.5 X10*3/uL (1.2-4.9); Mean Corpuscular HGB Conc 32.3 g/dl (31.0-36.0); Mean Corpuscular Hemoglobin 28.5 pg (27.0-33.0); Mean Corpuscular Volume 88.3 fL (80.0-98.0); Mean Platelet Volume 11.5 fL (9.4-12.4); Monocytes Absolute Auto 0.4 X10*3/uL (0.1-1.2); Monocytes Percent Auto 6.5 % (2-11); Neutrophils Absolute Auto 3.8 x10*3/uL (2.0-8.3); Neutrophils Percent Auto 63.7 % (45-73); Platelet Count 183 X10*3/uL (160-400); White Blood Count 5.9 X10*3/uL (4.8-10.8)
[2024-01-21 11:56] LABS: Estimated Average Glucose 137 mg/dL; Hemoglobin A1c % 6.4 % (<6.0)
[2024-01-21 12:13] LABS: Appearance Urine Clear; Color Urine Yellow; Glucose Urine UA Negative (Negative); Leukocyte Esterase Urine Negative (Negative); Nitrite Urine Negative (Negative); UMIC TRIGGER UACC YES; Urine Blood Small (1+) (Negative); Urine Ketones Negative (Negative); Urine Protein Negative (Neg-Trace)
[2024-01-21 12:21] LABS: Alanine Aminotransferase 16 U/L (0-40); Albumin Level 3.9 g/dL (3.5-5.0); Alkaline Phosphatase 88 U/L (39-117); Anion Gap 13 (12-20); Aspartate Amino Transferase 13 U/L (5-37); Bilirubin Total 0.9 mg/dL (0.0-1.0); Blood Urea Nitrogen 11 mg/dL (9-16); Calcium 9.2 mg/dL (8.4-10.2); Carbon Dioxide 27 mmol/L (22-29); Chloride 106 mmol/L (96-108); Cholesterol 148 mg/dL (<200); Estimated Glomerular Filt Rate 59; Glucose Fasting 112 mg/dL (60-99); HDL Cholesterol 31 mg/dL (>40); LDL Cholesterol Calculated 63 mg/dL (<100); Potassium 3.9 mmol/L (3.3-5.1); Sodium 142 mmol/L (135-145); Total Protein 6.8 g/dL (6.5-8.0); Triglycerides 272 mg/dL (<150)
[2024-01-21 12:27] LABS: Bacteria Urine None Seen (None Seen); Hyaline Casts Urine 0-2 /LPF (0-2); RBC Urine 0-2 /HPF (0-2); Squamous Epithelial Cell Urine 0-2 /HPF (0-2); WBC Urine 0-5 /HPF (0-5)
[2024-01-21 12:40] LABS: Creatinine Urine 92.85 mg/dL; Microalbum/Creatinine Ratio Ur 19.3 ug/mg cr (<30)
== END 2024-01-21 10:43 | disposition home or self-care (01) ==
LOC: HO.LAB 10:42
PROVIDERS: PCP Internal Medicine; Visit Provider Internal Medicine
DX: E78.00 Pure hypercholesterolemia, unspecified (principal); E11.9 Type 2 diabetes mellitus without complications; D64.9 Anemia, unspecified
CPT/HCPCS: 36415; 80053; 80061; 81001; 82043; 82570; 83036; 85025

== ENCOUNTER 2024-02-03 14:57 | Outpatient (AMB) | payer OTHER, SELFPAY ==
--- NOTE | 2024-02-03 15:41 | A.OFFPC_ITS ---
Vital Signs 02/03/24 15:42 Height 5 ft 7 in Weight 253 lb BMI 39.6 BP 126/70 Blood Pressure Location Lt brachial Position Sitting Pulse 93 Pulse Source Pulse Oximeter Pulse Oximetry (%) 94 Oxygen Delivery Method Room Air Intake Visit Reasons: 3mof\u Electrotyper Required: No Accompanied by: Self / Same As Patient Allergies pollen extracts [POLLEN] Allergy (Mild, Verified 02/03/24 16:31) RUNNY NOSE cat dander [CATS] Allergy (Unknown, Verified 02/03/24 16:31) UNKNOWN dog dander [DOGS] Allergy (Unknown, Verified 02/03/24 16:31) UNKNOWN mold [MOLD] Allergy (Unknown, Verified 02/03/24 16:31) UNKNOWN Medication List - Last Reconciled 02/03/24 by Bon Arvizu MD atenolol 25 mg PO DAILY atorvastatin 40 mg PO DAILY 90 days bupropion HCl XL 150 mg PO QAM 30 days cholecalciferol (vitamin D3) 50 mcg PO DAILY 90 days escitalopram oxalate 20 mg PO QAM ferrous sulfate 325 mg PO DAILY insulin glargine (Lantus Solostar U-100 Insulin) 20 units (0.2 mL) subcut QPM 30 days lorazepam 0.5 mg PO BID PRN 15 days metformin 1,000 mg PO BID 90 days montelukast 10 mg PO DAILY omeprazole 40 mg PO DAILY 90 days ondansetron 4 mg PO Q8H PRN pen needle, diabetic (BD Ultra-Fine Estrella Pen Needle) As directed tamsulosin 0.4 mg PO BEDTIME 30 days trazodone 50 mg PO BEDTIME PRN Ventolin HFA 90 mcg/actuation (albuterol sulfate) 2 puffs PO Q4H PRN NS Tobacco use date assessed: 02/03/24 Dental Screening Dental Screen Date: 02/03/24 Did you have a dental visit in the last 12 months?: No Did you have a dental problem in the last 6 months where you did not have access to dental care?: No Was dental information given to patient?: Patient has dentist HPI 3mof\u HPI0 Details Patient comes in today for his follow up visit States that he feels okay He denies any headaches or dizziness Denies any chest pains, no increased SOB No nausea/vomiting, no abdominal pain No change in bowel habits noted He had his follow up labs done a couple of weeks ago - to discuss his results [facility] Medical History Allergic rhinitis Insomnia Palpitations Vitamin D deficiency Chronic kidney disease, stage III (moderate) GERD without esophagitis Restrictive lung disease Obesity (BMI 30-39.9) Benign essential hypertension Pure hypercholesterolemia Diabetes mellitus Pulmonary emboli Chondrosarcoma Hyperlipidemia Chronic restrictive lung disease COPD (chronic obstructive pulmonary disease) Asthma Surgical History History of esophagogastroduodenoscopy (EGD) H/O colonoscopy History of inguinal hernia repair Hx of exploratory thoracotomy H/O tooth extraction Family History Father Hypertension Kidney failure, acute Mother Lung cancer Family/Other Diabetes Social History Housing: House Alcohol intake: never Patient Tobacco Use Status: Never used Tobacco e-Cigarette/Vaping Use: Never Used Second Hand Smoke Exposure: Yes service: No Current occupational status: unemployed Cognitive needs: No Hearing needs: No Vision needs: Yes (Glasses) Questionnaire PHQ-9 Over the last 2 weeks, how often have you been bothered by any of the following problems? 1. Little interest or pleasure in doing things: not at all 2. Feeling down, depressed, or hopeless: not at all 3. Trouble falling or staying asleep, or sleeping too much: not at all 4. Feeling tired or having little energy: not at all 5. Poor appetite or overeating: not at all 6. Feeling bad about yourself - or that you are a failure or have let yourself or your family down: not at all 7. Trouble concentrating on things, such as reading the newspaper or watching television: not at all 8. Moving or speaking so slowly that other people could have noticed. Or the opposite - being so fidgety or restless that you have been moving around a lot more than usual: not at all 9. Thoughts that you would be better off or of hurting yourself in some way: not at all Total score: 0 Depression Screening Interpretation: Negative Depression Screening Done: Yes 10967 - PHQ-9 Billing: Yes Source: Developed by Drs. Tashi Michael, Ambrosio Merino and colleagues, with an educational maría elena from [employer]. Thrive Questionnaire Date Thrive assessed: 02/03/24 I am a: Patient What is your living situation today?: I have a steady place to live Within the past 12 months, did the food you bought not last and you didn't have the money to get more?: Never true Within the past 12 months, did you worry whether your food would run out before you got money to buy more?: Never true Do you have trouble paying for medicines?: No Do you have trouble getting transportation to medical appointments?: No Do you have trouble paying your heating and electricity bill?: No Do you have trouble taking care of your child, family member or friend?: No Do you have trouble with day-to-day activities such as bathing, preparing meals, shopping, managing finances, etc.?: No Are you currently unemployed and looking for a job?: Yes Are you interested in more education?: No Please select the resources that you would like help with: None Currently or been in a relationship where the following occur: No concerns reported THRIVE Score: 0 AUDIT C Alcohol Use Questionnaire (AUDIT-C) 1. How often do you have a drink containing alcohol?: Never 3. How often do you have six or more drinks on one occasion?: Never Total Score: 0 Score Reviewed/Action Taken: Yes CATIE-7 AMB Questionnaire CATIE-7 Date CATIE - 7 assessed: 02/03/24 Feeling nervous, anxious, or on edge: 0 = Not at all Not being able to stop or control worryin = Not at all Worrying too much about different things: 0 = Not at all Trouble relaxin = Not at all Being so restless that it is hard to sit still: 0 = Not at all Becoming easily annoyed or irritable: 0 = Not at all Feeling afraid as if something awful might happen: 0 = Not at all Total CATIE-7 score (0-4 normal; 5-9 mild; 10-14 moderate; 15-21 severe): 0 Source: Developed by Laura Wharton Kurt Kroenke and colleagues, with an educational maría elena from [employer]. Review of Systems Const Denies chills, Denies difficulty sleeping (Rx helping a lot), Denies fatigue, Denies fever(s) and Denies headache(s) ENT Denies dysphagia, Denies dizziness, Denies otalgia, Denies headache(s), Denies neck pain, Denies odynophagia and Denies sore throat Card Denies chest pain, Denies rapid heart rate and Denies dyspnea Resp Denies cough, Denies dyspnea and Denies wheezing GI Denies abdominal pain, Denies constipation, Denies dysphagia, Denies heartburn, Denies diarrhea, Denies nausea, Denies odynophagia and Denies vomiting Denies dysuria, Reports nocturia (improving) and Reports urinary frequency (improving) Musc Denies back pain and Denies neck pain Skin/Breast Denies rash Neuro Denies dizziness and Denies headache(s) Psych Reports anxiety (often) Endo Denies fatigue Aller/Immun Denies wheezing Physical exam (Primary Care) Vital Signs: Last Vital Signs Pulse 93 02/03/24 15:42 BP 126/70 02/03/24 15:42 Pulse Ox 94 02/03/24 15:42 Oxygen Delivery Method Room Air 02/03/24 15:42 BMI result Body Mass Index 39.6 Tobacco/Smoking Status: Tobacco use Status Tobacco use date assessed 02/03/24 02/03/24 15:49 Patient Tobacco Use Status Never used Tobacco 02/03/24 15:41 e-Cigarette/Vaping Use Never Used 02/03/24 15:41 PHQ-9: PHQ-9 Score PHQ-9: Total score 0 02/03/24 16:32 Depression Screening Interpretation: Negative Thrive Assessment: Date of Thrive Assessment Date Thrive assessed 02/03/24 02/03/24 15:49 Currently or been in a relationship where the following occur: No concerns reported Const General: no acute distress and alert HENMT Ears: TM's normal bilaterally and EAC's normal Throat: Yes posterior oropharynx normal and Yes tonsils normal (no TP congestion) Neck Neck: Yes no lymphadenopathy and Yes supple Thyroid: Thyroid normal Resp Auscultation: clear to auscultation bilaterally, no rales and no wheezes Cardio Rate: regular rate Rhythm: regular rhythm Heart sounds: no murmurs GI Palpation (GI): Soft to palpation and nontender Auscultation: normal bowel sounds General: Yes no CVA tenderness Back/Spine/Pelvis Back: no CVA tenderness Thoracic/Lumbar Spine: No lumbar spinal tenderness Skin Rashes: no rashes Extrem General: Yes no clubbing, cyanosis or edema Results Reviewed Results Reviewed: Laboratory Tests 01/21/24 01/21/24 11:01 11:02 WBC 5.9 Hgb 13.4 L Hct 41.5 L Plt Count 183 Sodium 142 Potassium 3.9 Creatinine 1.27 Estimated GFR 59 Fasting Glucose 112 H Hemoglobin A1c % 6.4 H Calcium 9.2 AST 13 ALT 16 Triglycerides 272 H Cholesterol 148 LDL Cholesterol, Calc 63 HDL Cholesterol 31 L Ur Specific [place] 1.010 Urine Protein Negative Urine Glucose (UA) Negative Urine Blood Small (1+) H Urine Nitrite Negative Ur Leukocyte Esterase Negative Microalb/Creat Ratio 19.3 Assessment and Plan Assessment & Plan (1) Diabetes mellitus: Comment: taking Lantus insulin, Metformin, Montelukast Code(s): E11.9 - Type 2 diabetes mellitus without complications Qualifiers: Diabetes mellitus complication status: with hyperglycemia Diabetes mellitus chcf insulin use: without long term care social worker use Diabetes mellitus type: type 2 Qualified Code(s): E11.65 - Type 2 diabetes mellitus with hyperglycemia Plan: Patient's HgbA1c was at 6.4% on his labs done a couple of weeks ago (HgbA1c was at 6.7% a few months ago) - goal is <7.0% Reinforced diabetic diet Continue Lantus 20 units QD and Metformin 1000 mg BID (2) Pure hypercholesterolemia: Code(s): E78.00 - Pure hypercholesterolemia, unspecified Plan: Results of his labs done a couple of weeks ago reviewed and discussed with patient Reinforced low cholesterol diet Continue Atorvastatin 40 mg QD Will recheck his labs and fasting lipids in 3 months for follow-up (3) Benign essential hypertension: Code(s): I10 - Essential (primary) hypertension Plan: Reinforced low sodium diet - goal is systolic BP of 120 mm or less Continue Atenolol 25 mg QD (4) Chronic kidney disease, stage III (moderate): Code(s): N18.30 - Chronic kidney disease, stage 3 unspecified Qualifiers: Chronic kidney disease stage 3 subtype: stage 3a (GFR 45-59) Qualified Code(s): N18.31 - Chronic kidney disease, stage 3a Plan: His serum creatinine and GFR have remained steady and are mostly unchanged on his recent labs Renal US done last year came back normal Will continue to monitor his renal function regularly Follow up with nephrology as scheduled (5) Vitamin D deficiency: Code(s): E55.9 - Vitamin D deficiency, unspecified Plan: Continue Vitamin D3 2000 units QD (6) Elevated TSH: Code(s): R79.89 - Other specified abnormal findings of blood chemistry Plan: His serum TSH and free T4 level were both normal on his labs a few months ago; patient is clinically euthyroid Will continue to monitor his TFTs regularly (7) COPD (chronic obstructive pulmonary disease): Code(s): J44.9 - Chronic obstructive pulmonary disease, unspecified Qualifiers: COPD type: unspecified COPD Qualified Code(s): J44.9 - Chronic obstructive pulmonary disease, unspecified Plan: Continue Albuterol HFA 2 inhalations every 6 hours PRN He used to be on Trelegy but his insurance declined to continue covering his Rx PFTs done last year showed only findings of mild COPD Follow up with pulmonary as scheduled (8) Palpitations: Code(s): R00.2 - Palpitations Plan: States that his symptoms have mostly improved/subsided, and that these were most likely related to his anxiety as his symptoms supposedly resolved with some Ativan in the ER last year EKG done in the ER back then came out normal = NSR, HR = 81 bpm, with no acute ST-T wave changes Holter monitor, echocardiogram and cardiac event monitor done (by cardiology) over the past few months have also all been normal (9) Urinary frequency: Code(s): R35.0 - Frequency of micturition Plan: Patient states that his urinary frequency has improved a lot (though not completely) with Tamsulosin - symptoms are likely due to BPH Serum PSA level was normal when last checked Continue Tamsulosin 0.4 mg Q HS To consider referral to urology if his urinary frequency or symptoms continue to persist or progress (10) Insomnia: Code(s): G47.00 - Insomnia, unspecified Qualifiers: Insomnia type: unspecified Qualified Code(s): G47.00 - Insomnia, unspecified Plan: Sleep hygiene reinforced Continue Trazodone 50 mg Q HS PRN - states that Rx has helped a lot with his sleep lately (11) Anxiety: Code(s): F41.9 - Anxiety disorder, unspecified Plan: Continue Escitalopram 20 mg QD, Bupropion XL 150 mg Q AM and Lorazepam 0.5 mg BID PRN (12) Obesity (BMI 30-39.9): Comment: He remains grossly overweight. Denies symptoms of sleep apnea. Trying to lose weight on his own with diet and exercise. DID LOSE ABOUT 10 LB IN THE LAST 6 MONTHS. However he is not able to do much exercise, as he cannot walk long distance Code(s): E66.9 - Obesity, unspecified Plan: Reinforced diet/exercise as tolerated/lose weight Plan Follow up in 3 months Orders: Orders Lipid Panel 3 Months E78.00 - Pure hypercholesterolemia, unspecified Hemoglobin A1c 3 Months E11.9 - Type 2 diabetes mellitus without complications UA CC w/rflx Micro + Cult 3 Months R30.0 - Dysuria Vitamin D 25-OH Total 3 Months E55.9 - Vitamin D deficiency, unspecified Free T4 (Free Thyroxine) 3 Months R79.89 - Other specified abnormal findings of blood chemistry Complete Blood Count Auto Diff 3 Months D64.9 - Anemia, unspecified Comprehensive [place]. Panel Fast 3 Months E78.00 - Pure hypercholesterolemia, unspecified Microalbumin, Random (w Creat) 3 Months E11.9 - Type 2 diabetes mellitus without complications Thyroid Stimulating Hormone 3 Months R79.89 - Other specified abnormal findings of blood chemistry Coding Level of Care Code Est Pt Level 4 (13878) Diagnoses Type 2 diabetes mellitus with hyperglycemia, without long-term current use of insulin E11.65 Diabetes mellitus complication status: with hyperglycemia Diabetes mellitus chcf insulin use: without long term care social worker use Diabetes mellitus type: type 2 Pure hypercholesterolemia E78.00 Benign essential hypertension I10 Stage 3a chronic kidney disease N18.31 Chronic kidney disease stage 3 subtype: stage 3a (GFR 45-59) Vitamin D deficiency E55.9 Elevated TSH R79.89 Chronic obstructive pulmonary disease, unspecified COPD type J44.9 COPD type: unspecified COPD Palpitations R00.2 Urinary frequency R35.0 Insomnia, unspecified type G47.00 Insomnia type: unspecified Anxiety F41.9 Obesity (BMI 30-39.9) E66.9
[2024-02-03 15:42] VITALS: BP 126/70; PULSE 93; O2SAT 94; BMI 39.6
== END 2024-02-03 16:34 | disposition home or self-care (01) ==
PROVIDERS: PCP Internal Medicine; Visit Provider Internal Medicine
DX: E11.65 Type 2 diabetes mellitus with hyperglycemia (principal); I12.9 Hypertensive chronic kidney disease with stage 1 through stage 4 chronic kidney disease, or unspecified chronic kidney disease; N18.31 Chronic kidney disease, stage 3a; J44.9 Chronic obstructive pulmonary disease, unspecified; E78.00 Pure hypercholesterolemia, unspecified; E55.9 Vitamin D deficiency, unspecified; R79.89 Other specified abnormal findings of blood chemistry; R00.2 Palpitations; R35.0 Frequency of micturition; G47.00 Insomnia, unspecified; F41.9 Anxiety disorder, unspecified; E66.9 Obesity, unspecified

== ENCOUNTER → 2024-02-03 14:57 | Outpatient (BNVA) | payer OTHER, SELFPAY | PROVIDERS: PCP Internal Medicine; Visit Provider Internal Medicine | DX: E11.65 Type 2 diabetes mellitus with hyperglycemia (principal); E78.00 Pure hypercholesterolemia, unspecified; I12.9 Hypertensive chronic kidney disease with stage 1 through stage 4 chronic kidney disease, or unspecified chronic kidney disease; E11.22 Type 2 diabetes mellitus with diabetic chronic kidney disease; N18.31 Chronic kidney disease, stage 3a; E55.9 Vitamin D deficiency, unspecified; R79.89 Other specified abnormal findings of blood chemistry; J44.9 Chronic obstructive pulmonary disease, unspecified; R00.2 Palpitations; R35.0 Frequency of micturition; G47.00 Insomnia, unspecified; F41.9 Anxiety disorder, unspecified; E66.9 Obesity, unspecified; Z68.39 Body mass index [BMI] 39.0-39.9, adult; Z71.3 Dietary counseling and surveillance; Z79.84 Long term (current) use of oral hypoglycemic drugs | CPT/HCPCS: 99212 ==

== ENCOUNTER 2024-04-19 08:58 | Outpatient (REF) | payer OTHER, SELFPAY ==
[2024-04-19 09:23] LABS: MANUAL DIFF FLAG NO
[2024-04-19 09:55] LABS: Basophils Percent Auto 0.5 % (0-2); Eosinophils Absolute Auto 0.2 X10*3/uL (0.0-0.4); Eosinophils Percent Auto 3.1 % (0-4); Hematocrit 42.8 % (42.0-52.0); Hemoglobin 14.1 g/dl (14.0-18.0); Imm Gran Abs Auto 0.02 X10*3/uL (0.00-0.03); Imm Gran Pct Auto 0.3 % (0.0-0.4); Lymphocytes Absolute Auto 1.4 X10*3/uL (1.2-4.9); Lymphocytes Percent Auto 23.6 % (20-40); Mean Corpuscular HGB Conc 32.9 g/dl (31.0-36.0); Mean Corpuscular Hemoglobin 29.5 pg (27.0-33.0); Mean Corpuscular Volume 89.5 fL (80.0-98.0); Mean Platelet Volume 10.6 fL (9.4-12.4); Monocytes Absolute Auto 0.5 X10*3/uL (0.1-1.2); Monocytes Percent Auto 7.9 % (2-11); Neutrophils Absolute Auto 3.8 x10*3/uL (2.0-8.3); Neutrophils Percent Auto 64.6 % (45-73); Platelet Count 182 X10*3/uL (160-400); Red Blood Count 4.78 X10*6/uL (4.60-5.80); Red Cell Distribution Width 14.3 % (11.0-16.0); White Blood Count 5.9 X10*3/uL (4.8-10.8)
[2024-04-19 10:12] LABS: Estimated Average Glucose 126 mg/dL; Hemoglobin A1C 154.1179 umol/L; Total Hemoglobin (HGBA1C) 3645.4134 umol/L
[2024-04-19 10:55] LABS: Appearance Urine Clear; Color Urine Yellow; Glucose Urine UA Negative (Negative); Leukocyte Esterase Urine Negative (Negative); Nitrite Urine Negative (Negative); PH 6.5 (5.0-9.0); UMIC TRIGGER UACC YES; Urine Blood Moderate (2+) (Negative); Urine Ketones Negative (Negative); Urine Protein Negative (Neg-Trace)
[2024-04-19 10:58] LABS: Bacteria Urine None Seen (None Seen); Hyaline Casts Urine 0-2 /LPF (0-2); Squamous Epithelial Cell Urine 0-2 /HPF (0-2); WBC Urine 0-5 /HPF (0-5)
[2024-04-19 11:37] LABS: Alanine Aminotransferase 14 U/L (0-40); Albumin Level 3.9 g/dL (3.5-5.0); Alkaline Phosphatase 97 U/L (39-117); Anion Gap 14 (12-20); Aspartate Amino Transferase 18 U/L (5-37); Bilirubin Total 0.8 mg/dL (0.0-1.0); Blood Urea Nitrogen 8 mg/dL (9-16); Calcium 8.9 mg/dL (8.4-10.2); Carbon Dioxide 28 mmol/L (22-29); Chloride 104 mmol/L (96-108); Cholesterol 120 mg/dL (<200); Estimated Glomerular Filt Rate > 60; Glucose Fasting 101 mg/dL (60-99); HDL Cholesterol 31 mg/dL (>40); LDL Cholesterol Calculated 59 mg/dL (<100); Potassium 4.1 mmol/L (3.3-5.1); Sodium 142 mmol/L (135-145); Triglycerides 154 mg/dL (<150)
[2024-04-19 11:43] LABS: Free T4 (Free Thyroxine) 1.03 ng/dL (0.71-1.85); Thyroid Stimulating Hormone 1.34 uIU/mL (0.32-4.0); Vitamin D 25-OH Total 100.4 ng/mL (>30)
[2024-04-19 11:51] LABS: Creatinine Urine 109.47 mg/dL; Microalbum/Creatinine Ratio Ur 14.6 ug/mg cr (<30)
--- OUTSIDE RECORDS SUMMARY | 2024-04-20 19:09 | XMS_ITS ---
Author Organization [facility] Address [address] [place] [address] Care Team Providers Care Swager Operator Name Role Phone Fox Ku MD Primary Care Provider Tashi Bruno Unavailable [phone] Alisha Moore Unavailable Unavailable REASON FOR VISIT screening,hx polyps PROBLEMS Problem Type ICD Code Onset Dates Problem Status W/U Status Risk SNOMED Code Notes Problem Diverticulosis of large intestine without perforation or abscess without bleeding (K57.30) Active confirmed Diverticul ar disease of colon (121674240) Encounters Encounter Location Date Provider Diagnosis [facility] [place] [address] [place] [phone] 07/13/2023 Tashi Currie Encounter for scre ening colonoscopy Z12.11 ; Colon polyps K63.5 ; Diverticulosis of large intestine without perforation or abscess without bleeding K57.30 and Other hemorrhoids K64.8 ASSESSMENTS Encounter Date Diagnosis Assessment Notes Treatment Notes Treatment Clinical Notes 07/13/2023 Encounter for screening colonoscopy (ICD-10 - Z12.11) 07/13/2023 Colon polyps (ICD-10 - K63.5) 07/13/2023 Diverticulosis of large intestine without perforation or abscess without bleeding (ICD-10 - K57.30) 07/13/2023 Other hemorrhoids (ICD-10 - K64.8) PLAN OF TREATMENT No Information
--- OUTSIDE RECORDS SUMMARY | 2024-04-20 19:09 | XMS_ITS ---
Author Organization [facility] Address [address] [place] [phone] Care Team Providers Care Regulatory Administrator Name Role Phone Fox Ku MD Primary Care Provider Tashi Bruno [phone] Alisha Moore Unavailable Unavailable REASON FOR VISIT 2 day bowel prep MEDICATIONS Medication SIG (Take, Route, Frequency, Duration) Notes Start Date End Date Status Dulcolax (colon prep) 5 MG Take 2 Dulcol ax 2 days before the colonoscopy, and take 2 Dulcolax at 3:00 p.m and 7:00p.m. the day before the colonoscopy Orally Two tablets 2 days before the colonoscopy, and two tablets twice a day for one day before the colonsocpy for 2 days 04/19/2023 Active MiraLax (colon prep) 17 GM/SCOOP 1/2 bottle of 238Gm Miralax in 1 quart of Gatorade 2 days before the colonoscopy and then 1 full 238Gm bottle of Miralax mixed with 2 quarts of Gatorade or Crystal Light Orally Take the 1/2 bottle 2 days before the colonoscopy, and then do the 2nd bottle of Miralax by beginning at 5:00 p.m. the day before the procedure for 2 days 04/19/2023 Active Encounters Encounter Location Date Provider Diagnosis [facility] [address] [place] [phone] 04/17/2023 Tashi Currie PLAN OF TREATMENT Medication Medication Name Sig Start Date Stop Date Notes Dulcolax (colon prep) 5 MG Take 2 Dulcol ax 2 days before the colonoscopy, and take 2 Dulcolax at 3:00 p.m and 7:00p.m. the day before the colonoscopy Orally Two tablets 2 days before the colonoscopy, and two tablets twice a day for one day before the colonsocpy for 2 days 04/19/2023 MiraLax (colon prep) 17 GM/SCOOP 1/2 bottle of 238Gm Miralax in 1 quart of Gatorade 2 days before the colonoscopy and then 1 full 238Gm bottle of Miralax mixed with 2 quarts of Gatorade or Crystal Light Orally Take the 1/2 bottle 2 days before the colonoscopy, and then do the 2nd bottle of Miralax by beginning at 5:00 p.m. the day before the procedure for 2 days 04/19/2023
--- OUTSIDE RECORDS SUMMARY | 2024-04-20 19:09 | XMS_ITS | Patient Health Record ---
Author Organization [facility] Address [address] [place] [address] Care Team Providers Care Rug Cutter Helper Name Role Phone Fox Ku MD Primary Care Provider Tashi Bruno Unavailable [phone] Alisha Moore Unavailable Unavailable ALLERGIES No Known Allergies RESULTS Component Value Reference Range Notes Pathology (Not yet reviewed by provider) Interpretation: Performing Lab:[facility], [address] [place] [phone] Notes/Report: Glucose, Whole Blood Reviewed date:07/13/2023 07:14:58 PM Interpretation: Performing Lab:[facility], [address] [place] [phone] Notes/Report: Glucose, Whole Blood 114 60-115 mg/dL METER # : [id number] REASON FOR REFERRAL No Information MEDICATIONS Medication SIG (Take, Route, Frequency, Duration) Notes Start Date End Date Status Ventolin HFA 108 (90 Base) MCG/ACT Inhalation for 17 Active Atenolol 25 MG Oral for 90 Act celena Tamsulosin HCl 0.4 MG Oral for 90 Active Dulcolax (colon prep) 5 MG Take 2 Dulcol ax 2 days before the colonoscopy, and take 2 Dulcolax at 3:00 p.m and 7:00p.m. the day before the colonoscopy Orally Two tablets 2 days before the colonoscopy, and two tablets twice a day for one day before the colonsocpy for 2 days 04/19/2023 Active Escitalopram Oxalate 20 MG Oral for 90 Active MiraLax (colon prep) 17 GM/SCOOP 1/2 [...] the procedure for 2 days 04/19/2023 Active Ferrous Sulfate 325 (65 Fe) MG Oral for 90 Active metFORMIN HCl 1000 MG Oral for 90 Active Albuterol Sulfate Ac tive Atorvastatin Calcium 40 MG 1 tablet Oral ly Once a day Active Omeprazole 40 MG 1 capsule 30 minutes before morning meal Orally Once a day Active Lantus 100 UNIT/ML as directed Subcutan eous 20 units a day Active Cholecalciferol 50 MCG (2000 UT) 1 capsule Orally Once a day for 30 day(s) Active IMMUNIZATIONS Vaccine Route Administration Date Status Comme nts Influenza Unknown 01/09/2017 Administered SOCIAL HISTORY Tobacco Use: Social History Observation Description Date Details (start date - stop date) Never Smoker NA - NA Sex Assigned At : Social History Observation Description Sex Assigned At Unknown Tobacco Use/Smoking Question Answer Notes Patient is a nonsmoker Alcohol Screen Question Answer Notes Did you have a drink containing alcohol in the p ast year? No Points 0 Interpretation Negative PROBLEMS Problem Type ICD Code Onset Dates Problem Status W/U Status Risk SNOMED Code Notes Problem Iron deficiency anemia, unspecified iron deficiency anemia type (D50.9) Active confirmed 71427217 Problem History of adenomatous polyp of colon (Z86.010) Active confirmed 150547384 Problem Colon cancer screening (Z12.11) Active confirmed 912505539 Problem Preprocedural examination (Z01.818) Active confirmed 260634689167668 Problem Gastroesophageal reflux disease without esophagitis (K21.9) Active confirmed 862347229 Problem Diverticulosis of large intestine without perforation or abscess without bleeding (K57.30) Active confirmed Diverticul ar disease of colon (948138866) Encounters Encounter Location Date Provider Diagnosis [facility] [place] Out[place] [address] [place] [phone] 07/13/2023 Tashi Currie Encounter for scre ening [...] hemorrhoids (ICD-10 - K64.8) PLAN OF TREATMENT Pending Test Test Name Order Date Pathology 07/13/2023 Future Test Test Name Order Date UPPER GI ENDOSCOPY 06/23/2017 COLONOSCOPY 06/23/2017 COLONOSCOPY 04/17/2023 Insurance Providers Payer Name Payer Address Payer Phone Subscriber Number Group Number Insured Name Patient Relationship to Insured Coverage Start Date Coverage End Date [facility] [employer] [facility] [address] [address] [place], [place] [id number] KIAN MAHMOOD Self - patient is the insured MEDICA[employer] OF [employer] [address] [place] [address] [id number] KIAN MAHMOOD Self - patient is the insured MEDICAL (GENERAL) HISTORY Medical History History ICD Code IDDM Hypertension Heart murmur-Dr. Collins Asthma/COPD- Dr. Correa Pulmonary embolus in 2015--on Coumadin-- sees Dr. Moore Lung mass--surgery in 2008 a s below, with XRT; biopsied in approx 2015 and benign--followed by Dr. Tino Dimas [place],CVA,renal disease GERD--upper endoscopy August of 2017 with a small hiatal hernia, but no evidence of any esophagitis or Calderón's esophagus; duodenal biopsies were negative for celiac disease. Hard of hearing Colonoscopy in August 2017 re vealed 2 cecal tubular adenomas that were removed; a second colonoscopy later that year with a better prep did not reveal any other polyps; Surgical History Surgery Date(Month/Year) Mass removed--Dr. iFelds at [facility]-- Be nign , but had XRT 2008 Right inguinal hernia 1990 Ear tubes/Adenoids
--- OUTSIDE RECORDS SUMMARY | 2024-04-20 19:09 | XMS_ITS ---
Author Organization [facility] Address [address] [place] [id number] Care Team Providers Care Tableau Administrator Name Role Phone Fox Ku MD Primary Care Provider aTshi Bruno Unavailable [phone] Alisha Moore Unavailable Unavailable ALLERGIES No Known Allergies REASON FOR VISIT Patient presents today for a colon screening MEDICATIONS Medication SIG (Take, Route, Frequency, Duration) Notes Start Date End Date Status Albuterol Sulfate Ac tive Atorvastatin Calcium 40 MG 1 tablet Oral ly Once a day Active Omeprazole 40 MG 1 capsule 30 minutes before morning meal Orally Once a day Active Lantus 100 UNIT/ML as directed Subcutan eous 20 units a day Active Cholecalciferol 50 MCG (2000 UT) 1 capsule Orally Once a day for 30 day(s) Active Ventolin HFA 108 (90 Base) MCG/ACT Inhalation for 17 Active Atenolol 25 MG Oral for 90 Act celena Tamsulosin HCl 0.4 MG Oral for 90 Active Escitalopram Oxalate 20 MG Oral for 90 Active Ferrous Sulfate 325 (65 Fe) MG Oral for 90 Active metFORMIN HCl 1000 MG Oral for 90 Active SOCIAL HISTORY Tobacco Use: Social History Observation [...] W/U Status Risk SNOMED Code Notes Problem History of adenomatous polyp of colon (Z86.010) Active confirmed 118583080 Problem Colon cancer screening (Z12.11) Active confirmed 554053415 Problem Preprocedural examination (Z01.818) Active confirmed [id number] Problem Gastroesophageal reflux disease without esophagitis (K21.9) Active confirmed 313698153 VITAL SIGNS BMI 40.13 kg/m2 04/17/2023 Blood pressure systolic 00 mm Hg 04/17/20 23 Blood pressure diastolic 00 mm Hg 023 Height 67.75 in 04/17/2023 Temperature 97.7 degrees Fahrenheit 04/17/20 23 Weight 262 lbs 04/17/2023 Encounters Encounter Location Date Provider Diagnosis [facility] [address] [place] [address] 04/17/2023 Tashi Currie Preprocedural examin ation Z01.818 ; Gastroesophageal reflux disease without esophagitis K21.9 ; History of adenomatous polyp of colon Z86.010 and Colon cancer screening Z12.11 ASSESSMENTS Encounter Date Diagnosis Assessment Notes Treatment Notes Treatment Clinical Notes 04/17/2023 Preprocedural examination (ICD-10 - Z01.818) 04/17/2023 Gastroesophageal reflux disease without esophagitis (ICD-10 - K21.9) 04/17/2023 History of adenomato us polyp of colon (ICD-10 - Z86.010) 04/17/2023 Colon cancer screeni ng (ICD-10 - Z12.11) TWO DAY PREP FOR THE COLONOSCOPY Take only 1/2 your usual Insulin the day before and on the day of the colonoscopy Do not take the Metformin the night before nor on the day of the colonoscopy Stop Iron a full week before the colonoscopy PLAN OF TREATMENT Treatment Notes Assessment Notes Colon cancer screening TWO DAY PREP FOR THE COLONOSCOPY Take only 1/2 your usual Insulin the day before and on the day of the colonoscopy Do not take the Metformin the night before nor on the day of the colonoscopy Stop Iron a full week before the colonoscopy Future Test Test Name Order Date COLONOSCOPY 04/17/2023 Next Appt Details Follow Up: prn, Reason: Progress Notes * Examination Category Sub-Category Detail Notes General Examination GENERAL APPEARANCE: pleasant , well nourished, well developed, in no acute distress HEAD: EYES: sclera non-icteric EARS: NOSE: THROAT: NECK/THYROID: no cervical lymphade nopathy, neck supple HEART: S1, S2 normal CHEST: LUNGS: clear to auscultatio n bilaterally ABDOMEN: normal bowel sounds, no guarding or rigidity, no guarding or rigidity, no masses palpable, soft, nontender, nondistended NEUROLOGIC: alert and oriented SKIN: nonjaundiced, no spi natalee angiomata EXTREMITIES: no edema PERIPHERAL PULSES: BACK: BREASTS: MUSCULOSKELETAL: MALE GENITOURINARY: LYMPH NODES: RECTAL EXAM: FEMALE GENITOURINARY: ORAL CAVITY: mucosa moist
== END 2024-04-19 08:59 | disposition home or self-care (01) ==
LOC: HO.LAB 08:58
PROVIDERS: PCP Internal Medicine; Visit Provider Internal Medicine
DX: E55.9 Vitamin D deficiency, unspecified (principal); R79.89 Other specified abnormal findings of blood chemistry; E78.00 Pure hypercholesterolemia, unspecified; E11.9 Type 2 diabetes mellitus without complications; D64.9 Anemia, unspecified; R30.0 Dysuria
CPT/HCPCS: 36415; 80053; 80061; 81001; 81003; 82043; 82306; 82570; 83036; 84439; 84443; 85025

== ENCOUNTER 2024-05-02 12:01 | Emergency (ER) | payer OTHER, SELFPAY ==
--- NOTE | ~2024-05-02 | CT_ITS ---
EXAMINATION: CT CHEST WITHOUT CONTRAST CLINICAL INFORMATION: This wall wound with question of osteomyelitis COMPARISON: CT chest 03/14/2021 TECHNIQUE: Multidetector volumetric CT imaging of the chest was done. Axial MIP volume rendering provided. Sagittal and coronal reformatted images were obtained. This CT examination was performed using dose optimization techniques as appropriate, variously including the following: *Automated exposure control *Adjustment of mA and/or kV according to patient size (this includes techniques or standardized protocols for targeted exams where dose is matched to indication/reason for exam; i.e. extremities or head) *Use of iterative reconstruction technique DLP: 359 mGy-cm FINDINGS: LUNGS: There are mild diffuse emphysematous changes. Bronchial thickening is present. At the left lung base there is continued traction bronchiectasis and atelectasis/round atelectasis extending towards the pleural surface in the area of the rib osteotomies (see below). Appearances are unchanged when compared to the 03/14/2021 study. MEDIASTINUM: The mediastinum is unremarkable. CORONARY ARTERY CALCIFICATION: None visualized on this study. PLEURA: There is no pleural effusion. No pleural mass or thickening. AXILLA: Left axillary adenopathy is again noted with the largest node measuring 2.5 cm in short axis dimension, slightly larger than in 202 when this same node measured 2.0 cm (14:20 compare prior 6:18). UPPER ABDOMEN: Unremarkable. OSSEOUS STRUCTURES: Again seen are osteotomies of the posterior left ribs from the fifth through the eighth rib. There is soft tissue fluctuance in this which is actually slightly improved compared to prior when measurements was 4.1 cm now 3.3 cm (14:37 compare prior 6:33). No new bony areas of destruction are seen. CT/CT chest wo IV con IMPRESSION: 1. No convincing evidence of osteomyelitis. MRI may be more useful for evaluation. 2. Left axillary adenopathy is slightly larger than in 202. 3. Left lower lobe atelectasis/round atelectasis is unchanged. 4. Other incidental findings as described above. Fleischner guidelines were followed. Electronically signed by: Luis Angel Knapp MD 05/02/2024 05:08 PM [facility]
--- NOTE | ~2024-05-02 | CT_ITS ---
EXAMINATION: CT HEAD WITHOUT CONTRAST CLINICAL INFORMATION: dizziness COMPARISON: CT dated November 04, 2018. TECHNIQUE: Contiguous axial imaging was performed from the skull base to vertex without intravenous administration of contrast. This CT examination was performed using dose optimization techniques as appropriate, variously including the following: *Automated exposure control *Adjustment of mA and/or kV according to patient size (this includes techniques or standardized protocols for targeted exams where dose is matched to indication/reason for exam; i.e. extremities or head) *Use of iterative reconstruction technique DLP: 789 mGy-cm FINDINGS: Bony calvarium is intact. Skull base is intact. 1 cm fat density lesion in the midline forehead likely lipoma. No hematoma, intraconal or extraconal compartments of the orbits. No acute intracranial hemorrhage, mass effect, midline shift, hydrocephalus or herniation. Weems-white matter differentiation is normal. Patchy hypodensities in the deep white matter supratentorial compartment. Posterior cranial fossa contents demonstrated no acute intracranial hemorrhage or mass effect. Intra-axial punctate calcification left cerebellum. Sellar/suprasellar region demonstrated no gross masses or hemorrhage. Fat density in the anterior interhemispheric falx. No air-fluid levels in the included paranasal sinuses. For pneumatization of the frontal sinus and mastoid air cells. Tympanic cavities are aerated. CT/CT head/brain wo IV con IMPRESSION: No acute fracture, bony calvarium. No acute intracranial hemorrhage. Electronically signed by: Ayo Oconnor MD 05/02/2024 02:53 PM [facility]
[2024-05-02 12:15] VITALS: BP 115/78; PULSE 90; RESP 16; TEMP 36.8; O2SAT 95; BMI 35.5
--- NOTE | 2024-05-02 12:24 | ECG_ITS ---
Test Reason : LEFT ARM PAIN /ABD PAIN Blood Pressure : / mmHG Vent. Rate : 077 BPM Atrial Rate : 077 BPM P-R Int : 130 ms QRS Dur : 094 ms QT Int : 404 ms P-R-T Axes : 013 -09 013 degrees QTc Int : 457 ms Normal sinus rhythm Moderate voltage criteria for LVH, may be normal variant ( R in aVL , [place] product ) Borderline ECG When compared with ECG of 13-MAR-2021 21:58, No significant change was found Referred By: Francisco Fitzgerald Electronically Signed By:Low Machado
--- NOTE | 2024-05-02 12:26 | ED.GENADULT ---
HPI - General Adult General Chief complaint: Dizziness Stated complaint: L arm pain/nausea/headahce Time Seen by Provider: 05/02/24 16:19 Source: patient, RN notes reviewed and old records reviewed Mode of arrival: ambulatory Limitations: no limitations History of Present Illness ED Provider: Waqar HPI narrative: 53-year-old male past medical history significant for COPD, obesity, vertigo, GERD, chronic kidney disease, hypertension, diabetes, hyperlipidemia presents for evaluation of multiple complaints. He complains of left arm numbness with tingling going on for a few months. He also complains of dizziness and describes ?the room is spinning. ? He is unsure if this is similar to his previous diagnosed with the meclizine. He complains of left-sided chest pain. 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 His pain is reproducible and worse with movement. He has nausea without vomiting Denies any significant abdominal pain. He had an EKG ordered in triage and was found to have an abdominal wound. The patient reports that he fell 1-2 weeks ago and has been ?picking and scratching at the scab. ? Related Data Previous Rx's ?Medication ?Instructions ?Recorded montelukast 10 mg tablet 10 mg PO DAILY for allergies #90 12/18/21 tabs lorazepam 0.5 mg tablet 0.5 mg PO BID PRN anxiety 15 days 12/19/22 #30 tabs ondansetron 4 mg disintegrating 4 mg PO Q8H PRN nausea and 01/09/23 tablet vomiting #7 tabs pen needle, diabetic 32 gauge x #100 ea 08/03/23 (BD Ultra-Fine Estrella Pen Needle) cholecalciferol (vitamin D3) 50 50 mcg PO DAILY 90 days #90 caps 10/06/23 mcg (2,000 unit) capsule atenolol 25 mg tablet 25 mg PO DAILY #90 tabs 01/20/24 escitalopram oxalate 20 mg tablet 20 mg PO QAM #90 tabs 01/20/24 metformin 1,000 mg tablet 1,000 mg PO BID 90 days #180 tabs 01/20/24 ferrous sulfate 325 mg (65 mg 325 mg PO DAILY #90 tabs 02/29/24 iron) tablet insulin glargine 100 unit/mL (3 20 unit (0.2 mL) subcut QPM 30 03/21/24 mL) subcutaneous pen (Lantus days #15 mL Solostar U-100 Insulin) atorvastatin 40 mg tablet 40 mg PO DAILY 90 days #90 tabs 03/26/24 omeprazole 40 mg capsule,delayed 40 mg PO DAILY 90 days #90 caps 03/26/24 release bupropion HCl 150 mg 24 hr tablet, 150 mg PO QAM 30 days #30 tabs 03/27/24 extended release Ventolin HFA 90 mcg/actuation 2 puff PO Q4H PRN for wheezing #18 03/29/24 aerosol inhaler (albuterol sulfate) ea tamsulosin 0.4 mg capsule 0.4 mg PO BEDTIME 30 days #90 caps 04/22/24 trazodone 50 mg tablet 50 mg PO BEDTIME PRN sleep #90 tabs 04/22/24 cephalexin 500 mg capsule 500 mg PO QID #28 caps 05/02/24 meclizine 25 mg tablet 25 mg PO TID PRN dizziness #20 tabs 05/02/24 Allergies Allergy/AdvReac Type Severity Reaction Status Date / Time pollen extracts [POLLEN] Allergy Mild RUNNY NOSE Verified 05/02/24 12:19 cat dander [CATS] Allergy Unknown UNKNOWN Verified 05/02/24 12:19 dog dander [DOGS] Allergy Unknown UNKNOWN Verified 05/02/24 12:19 mold [MOLD] Allergy Unknown UNKNOWN Verified 05/02/24 12:19 Review of Systems Constitutional: Constitutional: Denies body ache(s), Denies chills, Denies fever(s), Denies headache(s) and Reports malaise Eyes: Eyes: Denies blurry vision ENT: Reports vertigo, Reports dizziness, Denies headache(s) and Denies sore throat Cardiovascular: Cardiovascular: Reports chest pain and Denies dyspnea Respiratory: Respiratory: Denies cough and Denies dyspnea Gastrointestinal: Gastrointestinal: Denies abdominal pain, Reports nausea and Denies vomiting Genitourinary: Genitourinary: Denies difficulty urinating Musculoskeletal: Musculoskeletal: Reports back pain, Reports numbness and Reports tingling Integumentary/Breasts: Skin/Breast: Denies rash and Reports wounds Neurologic: Reports vertigo, Reports dizziness, Denies headache(s), Reports numbness and Reports tingling PMFSH Past Medical History Medical History Allergic rhinitis Insomnia Palpitations Vitamin D deficiency Chronic kidney disease, stage III (moderate) GERD without esophagitis Restrictive lung disease Obesity (BMI 30-39.9) Benign essential hypertension Pure hypercholesterolemia Diabetes mellitus Pulmonary emboli Chondrosarcoma Hyperlipidemia Chronic restrictive lung disease COPD (chronic obstructive pulmonary disease) Asthma Surgical History History of esophagogastroduodenoscopy (EGD) H/O colonoscopy History of inguinal hernia repair Hx of exploratory thoracotomy H/O tooth extraction Family History Family History Father Hypertension Kidney failure, acute Mother Lung cancer Family/Other Diabetes Social History Social History Housing: House Alcohol intake: never Patient Tobacco Use Status: Never used Tobacco Smoked in Last 30 Days: No e-Cigarette/Vaping Use: Never Used Second Hand Smoke Exposure: Yes Use of substances other than those prescribed or required for medical reasons: No Advance Directives: No Advance Directives Information Provided: No Do you have a plan to hurt others: No Plan service: No Current occupational status: unemployed Cognitive needs: No Hearing needs: No Vision needs: Yes (Glasses) Physical Exam ED Vital Signs: Vital Signs - 24 hr 05/02/24 12:15 05/02/24 16:00 05/02/24 18:43 Temperature 98.3 F 98.8 F 98.8 F Pulse Rate 90 70 70 Respiratory Rate 16 18 18 Blood Pressure 115/78 130/81 130/81 Pulse Oximetry 95 93 93 Oxygen Delivery Method Room Air Room Air Room Air BMI result Body Mass Index 35.5 Const General: comfortable, no acute distress, alert and awake Nutritional Appearance: well nourished Orientation/consciousness: patient oriented x3 HENMT Head: Yes normocephalic and Yes atraumatic Eyes Eyelids: Yes eyelids normal Conjunctivae: conjunctivae normal Sclerae: sclerae normal Corneas: corneas normal Pupils: Equal, round and reactive pupils present EOM: EOMs intact bilaterally Neck Neck: Yes full ROM Chest Other: Patient has a chronic appearing wound with a scar to the left lateral chest wall and upper abdomen. There are some excoriation alvarez in areas of open wound that is draining serous drainage. There was no beefy red erythema. Area is minimally tender to palpation. The patient does have a scar extending around towards his left paraspinous region. Chest palpation & inspection: abnormal inspection of the chest and abnormal palpation of chest wall Resp Effort & Inspection: normal respiratory effort, able to speak in complete sentences, no audible wheezes and not labored Auscultation: clear to auscultation bilaterally Cardio Other: Both upper extremities are warm, dry, well perfused, radial pulses 2+ and equal. Rate: regular rate Rhythm: regular rhythm GI Inspection: No distended Palpation (GI): Soft to palpation, not firm, nontender, no guarding and not rigid Skin General skin exam: elasticity normal Neuro General: patient oriented x3 Cranial nerves: Yes Equal, round and reactive pupils present and Yes Bilaterally intact EOM present Cognition (Neuro): normal cognition Gait exam (Neuro): Normal gait present Motor exam (neuro): 5/5 motor strength present throughout and Pronator motor function not present Coordination: [id number] test normal and [id number] test normal Extrem Other: Moving all extremities well without any obvious deformities Course Course Course Narrative: RME: 53-year-old male presents to ED for left arm numbness, abdominal pain, no having a cold sensation. Patient states headache and Flattening room spinning. NIH score is 0. Negative for any signs of any neuro deficits. Putting a drift negative. Labs EKG ordered. Upon triage while doing the EKG it was realized that patient has a foul smelling chest wall left upper abdominal wound patient states due to scratching wound which is red and foul odor will add lactic and blood culture Medications Administered Discontinued Medications Generic Name Dose Route Start Last Admin Trade Name Freq PRN Reason Stop Dose Admin Cephalexin HCl 500 mg 05/02/24 18:25 05/02/24 18:40 Cephalexin 500 Mg Capsule PO 05/02/24 18:26 500 mg ONCE ONE Administration Meclizine HCl 50 mg 05/02/24 16:28 05/02/24 16:54 Meclizine Hcl 25 Mg Tablet PO 05/02/24 16:29 50 mg ONCE ONE Administration Medical Decision Making Medical Decision Making MDM Narrative: 53-year-old male presents for evaluation of multiple complaints. His past medical history as documented above. He reports multiple complaints including dizziness described as room spinning. This is consistent with his known history of vertigo. His neurologic/cerebellar exam is benign. This improved with meclizine in his likely peripheral vertigo. His chest pain workup was largely unremarkable, he had a CT scan of the chest it does not show any evidence of osteomyelitis but does show osteotomies of the posterior left ribs from the 5th through 8th ribs. The patient had 2 troponins ordered both of which were negative. His EKG is normal sinus rhythm with a rate of [address] segment elevation or depressions. No significant change when compared to previous from 3 years ago. His chest pain may be related to his wound or previous surgery. His left upper extremity is warm, dry, well perfused, he has good range of motion, distal sensation is intact, I have a low suspicion for vascular compromise. There was no evidence of CVA. We will discharge the patient to follow up with his PCP, he actually has an appointment tomorrow. We will give him cephalexin for the abdominal wall wound and meclizine for his vertigo Differential Diagnosis Differential Diagnoses: The differential diagnosis associated with the presentation includes Chest pain Upper respiratory infection Dizziness Vertigo CVA less likely ACS AAA less likely Admission/Observation Consideration of admission/observation: Escalation of care including admission/observation considered Patient rules out for ACS Lab Data MDM Lab Attestation statement: I reviewed the patient's lab results. No leukocytosis or anemia. Normal platelet count. No significant electrolyte abnormalities. Troponin negative x2 05/02/24 13:17 05/02/24 13:17 Labs: Lab Results 05/02/24 05/02/24 05/02/24 Range/Units 13:17 15:35 17:13 WBC 7.7 (4.8-10.8) X10*3/uL RBC 5.14 (4.60-5.80) X10*6/uL Hgb 15.2 (14.0-18.0) g/dl Hct 45.4 (42.0-52.0) % MCV 88.3 (80.0-98.0) fL MCH 29.6 (27.0-33.0) pg MCHC 33.5 (31.0-36.0) g/dl RDW 14.4 (11.0-16.0) % Plt Count 206 (160-400) X10*3/uL MPV 10.0 (9.4-12.4) fL Immature Gran % (Auto) 0.3 (0.0-0.4) % Neut % (Auto) 74.2 H (45-73) % Lymph % (Auto) 16.6 L (20-40) % Garland % (Auto) 6.6 (2-11) % Eos % (Auto) 1.8 (0-4) % Baso % (Auto) 0.5 (0-2) % Lymph # (Auto) 1.3 (1.2-4.9) X10*3/uL Garland # (Auto) 0.5 (0.1-1.2) X10*3/uL Eos # (Auto) 0.1 (0.0-0.4) X10*3/uL Baso # (Auto) 0.0 (0.0-0.2) X10*3/uL Abs Immat Gran (auto) 0.02 (0.00-0.03) X10*3/uL Absolute Neuts (auto) 5.7 (2.0-8.3) x10*3/uL Absolute Nucleated RBC 0.000 (0.0-0.012) X10*3/uL Nucleated RBC % (auto) 0.0 (0.0-0.2) /100WBC ESR 28 H (0-15) MM/HR PT 12.4 (10.9-12.4) SEC INR 1.1 (0.9-1.1) APTT 29.6 (26.0-36.8) SEC Sodium 142 (135-145) mmol/L Potassium 4.6 (3.3-5.1) mmol/L Chloride 103 (96-108) mmol/L Carbon Dioxide 29 (22-29) mmol/L Anion Gap 15 (12-20) BUN 14 (9-16) mg/dL Creatinine 1.38 (0.5-1.4) mg/dL Estim Creat Clear Calc 73.0 Estimated GFR 54 POC Glucose (60-115) mg/dL Random Glucose 90 (60-115) mg/dL Lactic Acid 1.5 (0.5-2.0) mmol/L Calcium 9.9 D (8.4-10.2) mg/dL Total Bilirubin 0.9 (0.0-1.0) mg/dL AST 17 (5-37) U/L ALT 8 (0-40) U/L Alkaline Phosphatase 117 (39-117) U/L Troponin I High Sens 3.4 6.5 D (<3.5-35.0) ng/L C-Reactive Protein 1.45 H (< or = 0.50) mg/dL Total Protein 7.4 (6.5-8.0) g/dL Albumin 4.0 (3.5-5.0) g/dL Influenza Type A (PCR) NEGATIVE (Negative) Influenza Type B (PCR) NEGATIVE (Negative) RSV RNA Qual (PCR) NEGATIVE (Negative) SARS-CoV-2 RNA (RT-PCR) NEGATIVE (Negative) 05/02/24 Range/Units 17:16 WBC (4.8-10.8) X10*3/uL RBC (4.60-5.80) X10*6/uL Hgb (14.0-18.0) g/dl Hct (42.0-52.0) % MCV (80.0-98.0) fL MCH (27.0-33.0) pg MCHC (31.0-36.0) g/dl RDW (11.0-16.0) % Plt Count (160-400) X10*3/uL MPV (9.4-12.4) fL Immature Gran % (Auto) (0.0-0.4) % Neut % (Auto) (45-73) % Lymph % (Auto) (20-40) % Garland % (Auto) (2-11) % Eos % (Auto) (0-4) % Baso % (Auto) (0-2) % Lymph # (Auto) (1.2-4.9) X10*3/uL Garland # (Auto) (0.1-1.2) X10*3/uL Eos # (Auto) (0.0-0.4) X10*3/uL Baso # (Auto) (0.0-0.2) X10*3/uL Abs Immat Gran (auto) (0.00-0.03) X10*3/uL Absolute Neuts (auto) (2.0-8.3) x10*3/uL Absolute Nucleated RBC (0.0-0.012) X10*3/uL Nucleated RBC % (auto) (0.0-0.2) /100WBC ESR (0-15) MM/HR PT (10.9-12.4) SEC INR (0.9-1.1) APTT (26.0-36.8) SEC Sodium (135-145) mmol/L Potassium (3.3-5.1) mmol/L Chloride (96-108) mmol/L Carbon Dioxide (22-29) mmol/L Anion Gap (12-20) BUN (9-16) mg/dL Creatinine (0.5-1.4) mg/dL Estim Creat Clear Calc Estimated GFR POC Glucose 83 (60-115) mg/dL Random Glucose (60-115) mg/dL Lactic Acid (0.5-2.0) mmol/L Calcium (8.4-10.2) mg/dL Total Bilirubin (0.0-1.0) mg/dL AST (5-37) U/L ALT (0-40) U/L Alkaline Phosphatase (39-117) U/L Troponin I High Sens (<3.5-35.0) ng/L C-Reactive Protein (< or = 0.50) mg/dL Total Protein (6.5-8.0) g/dL Albumin (3.5-5.0) g/dL Influenza Type A (PCR) (Negative) Influenza Type B (PCR) (Negative) RSV RNA Qual (PCR) (Negative) SARS-CoV-2 RNA (RT-PCR) (Negative) Independent Interpretation I performed an independent interpretation of an: EKG (As above) Radiology Impression Discussion of test interpretation with radiology: I have reviewed the radiologist's reading. Radiologist Impression: FINDINGS: Bony calvarium is intact. Skull base is intact. 1 cm fat density lesion in the midline forehead likely lipoma. No hematoma, intraconal or extraconal compartments of the orbits. No acute intracranial hemorrhage, mass effect, midline shift, hydrocephalus or herniation. Weems-white matter differentiation is normal. Patchy hypodensities in the deep white matter supratentorial compartment. Posterior cranial fossa contents demonstrated no acute intracranial hemorrhage or mass effect. Intra-axial punctate calcification left cerebellum. Sellar/suprasellar region demonstrated no gross masses or hemorrhage. Fat density in the anterior interhemispheric falx. No air-fluid levels in the included paranasal sinuses. For pneumatization of the frontal sinus and mastoid air cells. Tympanic cavities are aerated. CT/CT head/brain wo IV con IMPRESSION: No acute fracture, bony calvarium. No acute intracranial hemorrhage. FINDINGS: LUNGS: There are mild diffuse emphysematous changes. Bronchial thickening is present. At the left lung base there is continued traction bronchiectasis and atelectasis/round atelectasis extending towards the pleural surface in the area of the rib osteotomies (see below). Appearances are unchanged when compared to the 03/14/2021 study. MEDIASTINUM: The mediastinum is unremarkable. CORONARY ARTERY CALCIFICATION: None visualized on this study. PLEURA: There is no pleural effusion. No pleural mass or thickening. AXILLA: Left axillary adenopathy is again noted with the largest node measuring 2.5 cm in short axis dimension, slightly larger than in 202 when this same node measured 2.0 cm (14:20 compare prior 6:18). UPPER ABDOMEN: Unremarkable. OSSEOUS STRUCTURES: Again seen are osteotomies of the posterior left ribs from the fifth through the eighth rib. There is soft tissue fluctuance in this which is actually slightly improved compared to prior when measurements was 4.1 cm now 3.3 cm (14:37 compare prior 6:33). No new bony areas of destruction are seen. CT/CT chest wo IV con IMPRESSION: 1. No convincing evidence of osteomyelitis. MRI may be more useful for evaluation. 2. Left axillary adenopathy is slightly larger than in 2021. 3. Left lower lobe atelectasis/round atelectasis is unchanged. 4. Other incidental findings as described above. Fleischner guidelines were followed. Electronically signed by: Luis Angel Knapp MD 05/02/2024 05:08 PM [facility] Discharge Plan Discharge Clinical Impression: Chest pain, Wound, open, abdominal wall, anterior, Vertigo Patient Disposition: Home, Self-Care Instructions: Chest Pain (ED), Vertigo (ED), Acute Wounds (ED) Additional Instructions: Your workup in the ER today was reassuring. This includes the CT scan of your brain. The CT scan of your chest. Take meclizine as needed for dizziness. Take cephalexin for the wound on your abdomen Follow-up with your primary doctor, return for new or worsening symptoms Prescriptions: New cephalexin 500 mg capsule 500 mg PO QID Qty: 28 0RF meclizine 25 mg tablet 25 mg PO TID PRN (Reason: dizziness) Qty: 20 0RF No Action montelukast 10 mg tablet 10 mg PO DAILY Qty: 90 1RF (DME) pen needle, diabetic [BD Ultra-Fine Estrella Pen Needle] 32 gauge x 5/32 needle See Rx Instructions .Route Qty: 100 5RF Rx Instructions: As directed cholecalciferol (vitamin D3) 50 mcg (2,000 unit) capsule 50 mcg PO DAILY 90 Days Qty: 90 3RF metformin 1,000 mg tablet 1,000 mg PO BID 90 Days Qty: 180 1RF atenolol 25 mg tablet 25 mg PO DAILY Qty: 90 8RF escitalopram oxalate 20 mg tablet 20 mg PO QAM Qty: 90 1RF ferrous sulfate 325 mg (65 mg iron) tablet 325 mg PO DAILY Qty: 90 1RF insulin glargine [Lantus Solostar U-100 Insulin] 100 unit/mL (3 mL) insulin pen 20 unit subcut QPM 30 Days Qty: 15 1RF atorvastatin 40 mg tablet 40 mg PO DAILY 90 Days Qty: 90 1RF omeprazole 40 mg capsule,delayed release(DR/EC) 40 mg PO DAILY 90 Days Qty: 90 1RF bupropion HCl 150 mg tablet extended release 24 hr 150 mg PO QAM 30 Days Qty: 30 1RF albuterol sulfate [Ventolin HFA] 90 mcg/actuation HFA aerosol inhaler 2 puff PO Q4H PRN (Reason: for wheezing) Qty: 18 3RF trazodone 50 mg tablet 50 mg PO BEDTIME PRN (Reason: sleep) Qty: 90 0RF tamsulosin 0.4 mg capsule 0.4 mg PO BEDTIME 30 Days Qty: 90 1RF ondansetron 4 mg tablet,disintegrating 4 mg PO Q8H PRN (Reason: nausea and vomiting) Qty: 7 0RF lorazepam 0.5 mg tablet 0.5 mg PO BID PRN (Reason: anxiety) 15 Days Qty: 30 0RF Rx Instructions: Take ONLY NEEDED for increased anxiety Interventions: ED Discharge Assessment Last Done: 05/02/24 18:43 Discharge Date/Time: 05/02/24 18:44 Print Language: Slovak
[2024-05-02 13:30] LABS: MANUAL DIFF FLAG NO
[2024-05-02 13:32] LABS: Basophils Percent Auto 0.5 % (0-2); Eosinophils Absolute Auto 0.1 X10*3/uL (0.0-0.4); Eosinophils Percent Auto 1.8 % (0-4); Hematocrit 45.4 % (42.0-52.0); Hemoglobin 15.2 g/dl (14.0-18.0); Imm Gran Abs Auto 0.02 X10*3/uL (0.00-0.03); Imm Gran Pct Auto 0.3 % (0.0-0.4); Lymphocytes Absolute Auto 1.3 X10*3/uL (1.2-4.9); Lymphocytes Percent Auto 16.6 % (20-40); Mean Corpuscular HGB Conc 33.5 g/dl (31.0-36.0); Mean Corpuscular Hemoglobin 29.6 pg (27.0-33.0); Mean Corpuscular Volume 88.3 fL (80.0-98.0); Monocytes Absolute Auto 0.5 X10*3/uL (0.1-1.2); Monocytes Percent Auto 6.6 % (2-11); Neutrophils Absolute Auto 5.7 x10*3/uL (2.0-8.3); Neutrophils Percent Auto 74.2 % (45-73); Platelet Count 206 X10*3/uL (160-400); Red Blood Count 5.14 X10*6/uL (4.60-5.80); Red Cell Distribution Width 14.4 % (11.0-16.0); White Blood Count 7.7 X10*3/uL (4.8-10.8)
[2024-05-02 13:37] LABS: INTERNATIONAL NORM RATIO 1.1 (0.9-1.1); Prothrombin Time 12.4 SEC (10.9-12.4)
[2024-05-02 13:40] LABS: Partial Thromboplastin Time 29.6 SEC (26.0-36.8)
[2024-05-02 13:52] LABS: Lactic Acid 1.5 mmol/L (0.5-2.0)
[2024-05-02 13:53] LABS: Anion Gap 15 (12-20); Aspartate Amino Transferase 17 U/L (5-37); Bilirubin Total 0.9 mg/dL (0.0-1.0); Blood Urea Nitrogen 14 mg/dL (9-16); Calcium 9.9 mg/dL (8.4-10.2); Carbon Dioxide 29 mmol/L (22-29); Chloride 103 mmol/L (96-108); Estimated Glomerular Filt Rate 54; Glucose Random 90 mg/dL (60-115); Potassium 4.6 mmol/L (3.3-5.1); Sodium 142 mmol/L (135-145); Total Protein 7.4 g/dL (6.5-8.0)
[2024-05-02 13:58] LABS: Troponin-I High Sensitivity 3.4 ng/L (<3.5-35.0)
[2024-05-02 14:15] LABS: Erythrocyte Sedimentation Rate 28 MM/HR (0-15)
[2024-05-02 14:42] LABS: Alanine Aminotransferase 8 U/L (0-40); Alkaline Phosphatase 117 U/L (39-117)
[2024-05-02 16:00] VITALS: BP 130/81; PULSE 70; RESP 18; TEMP 37.1; O2SAT 93
[2024-05-02 16:07] LABS: C Reactive Protein 1.45 mg/dL (< or = 0.50)
--- OUTSIDE RECORDS SUMMARY | 2024-05-02 16:33 | XMS_ITS ---
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 Name Role Phone Fox Ku MD Primary Care Provider Tashi Bruno Unavailable [phone] Alisha Moore Unavailable Unavailable REASON FOR VISIT screening,hx polyps PROBLEMS Problem Type ICD Code Onset Dates Problem Status W/U Status Risk SNOMED Code Notes Problem Diverticulosis of large intestine without perforation or abscess without bleeding (K57.30) Active confirmed Diverticul ar disease of colon (971874541) Encounters Encounter Location Date Provider Diagnosis [facility] [address] [place] [address] [phone] 07/13/2023 Tashi Currie Encounter for scre ening [...]
--- OUTSIDE RECORDS SUMMARY | 2024-05-02 16:33 | XMS_ITS ---
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75 in 04/17/2023 Temperature 97.7 degrees Fahrenheit 04/17/20 23 Weight 262 lbs 04/17/2023 Encounters Encounter Location Date Provider Diagnosis [facility] [address] [place] [address] 04/17/2023 Tashi Currie Preprocedural examin ation Z01.818 [...]
--- OUTSIDE RECORDS SUMMARY | 2024-05-02 16:33 | XMS_ITS | Patient Health Record ---
Author Organization [facility] Address [address] [place] [address] Care Team Providers Care Custom Miller Name Role Phone Fox Ku MD Primary Care Provider Tashi Bruno Unavailable [phone] Alisha Moore Unavailable Unavailable ALLERGIES No Known Allergies RESULTS Component Value Reference Range Notes Pathology (Not yet reviewed by provider) Interpretation: Performing Lab:[facility], [address] [place] [phone] Notes/Report: Glucose, Whole Blood Reviewed date:07/13/2023 07:14:58 PM Interpretation: Performing Lab:[facility], [address] [place] [phone] Notes/Report: Glucose, Whole Blood 114 60-115 mg/dL METER # : [id number] REASON FOR REFERRAL No Information MEDICATIONS Medication [...] iron deficiency anemia type (D50.9) Active confirmed 25302100 Problem History of adenomatous polyp of colon (Z86.010) Active confirmed 298804530 Problem Colon cancer screening (Z12.11) Active confirmed 332839159 Problem Preprocedural examination (Z01.818) Active confirmed [id number] Problem Gastroesophageal reflux disease without esophagitis (K21.9) Active confirmed 577712228 Problem Diverticulosis of large intestine without perforation or abscess without bleeding (K57.30) Active confirmed Diverticul ar disease of colon (578165135) Encounters Encounter Location Date Provider Diagnosis [facility] Outpatient [address] [place] [phone] 07/13/2023 Tashi Currie Encounter for scre ening [...] Insured Coverage Start Date Coverage End Date [facility] [address] [address] [place], [place] [id number] KIAN MAHMOOD Self - patient is the insured MEDICAID OF [employer] [address] [place] [address] [id number] KIAN MAHMOOD Self - patient is the insured MEDICAL (GENERAL) HISTORY Medical History History ICD Code IDDM Hypertension Heart murmur-Dr. Collins Asthma/COPD- Dr. Correa Pulmonary embolus in 2015--on Coumadin-- sees Dr. Moore Lung mass--surgery in 2008 a s below, with XRT; biopsied in approx 2015 and benign--followed by Dr. Tino Dimas [place],CVA,renal disease GERD--upper endoscopy August of 2017 with [...] polyps; Surgical History Surgery Date(Month/Year) Mass removed--Dr. Fields at [facility]-- Be nign , but had XRT 2008 Right inguinal hernia 1990 Ear tubes/Adenoids
--- OUTSIDE RECORDS SUMMARY | 2024-05-02 16:33 | XMS_ITS ---
Author Organization [facility] Address [address] [place] [address] Care Team Providers Care Human Resources Talent Manager Name Role Phone Fox Ku MD Primary Care Provider Tashi Bruno [phone] Alisha Moore Unavailable Unavailable REASON FOR VISIT [...] Active Encounters Encounter Location Date Provider Diagnosis [facility] [address] [place] [phone] 04/17/2023 Tashi Currie PLAN OF TREATMENT Medication [...]
[2024-05-02] MEDS: Meclizine HCl 25 MG TABLET 50 MG PO (16:54)
--- NOTE | 2024-05-02 17:09 | PC.NURSE ---
pt is alert and oriented, skin pwd, respirations even and unlabored, pt reports at 0600 started to feel dizzy like the room is spinning, denies nausea, pt is reporting chest pain that started about 3 days ago, pain at /10
[2024-05-02 17:19] LABS: Glucose, Whole Blood 83 mg/dL (60-115)
[2024-05-02 17:49] LABS: Troponin-I High Sensitivity 6.5 ng/L (<3.5-35.0)
[2024-05-02 17:55] LABS: Influenza A PCR NEGATIVE (Negative); Influenza B PCR NEGATIVE (Negative); Resp Syncy Virus RNA Qual PCR NEGATIVE (Negative); SARS COV2 PCR INHOUSE NEGATIVE (Negative)
--- NOTE | 2024-05-02 18:24 | PC.NURSE ---
pt reports feeling better, dizziness has improved
[2024-05-02] MEDS: cephALEXin 500 MG CAPSULE PO (18:40)
[2024-05-02 18:43] VITALS: BP 130/81; PULSE 70; RESP 18; TEMP 37.1; O2SAT 93
== END 2024-05-02 18:44 | disposition home or self-care (01) ==
PROVIDERS: Physician Assistant; Emergency Provider Emergency Medicine; PCP Internal Medicine
DX: R07.9 Chest pain, unspecified (principal); S21.102A Unspecified open wound of left front wall of thorax without penetration into thoracic cavity, initial encounter; X58.XXXA Exposure to other specified factors, initial encounter; R42 Dizziness and giddiness; R20.0 Anesthesia of skin; R29.700 NIHSS score 0; Z03.818 Encounter for observation for suspected exposure to other biological agents ruled out; Y93.9 Activity, unspecified; Y92.9 Unspecified place or not applicable; Y99.9 Unspecified external cause status
CPT/HCPCS: 0241U; 36415; 70450; 71250; 80053; 82947; 83605; 84484; 85025; 85610; 85652; 85730; 86140; 87040; 93005; 99284

== ENCOUNTER → 2024-05-02 12:24 | Outpatient (BNV) | payer OTHER, SELFPAY | PROVIDERS: Emergency Provider Emergency Medicine; PCP Internal Medicine; Visit Provider Internal Medicine Cardiovascular Disease | DX: R10.9 Unspecified abdominal pain (principal); M79.602 Pain in left arm | CPT/HCPCS: 93010 ==

== ENCOUNTER → 2024-05-02 12:24 | Outpatient (BNV) | payer OTHER, SELFPAY | PROVIDERS: PCP Internal Medicine; Visit Provider Radiology Diagnostic Radiology | DX: R42 Dizziness and giddiness (principal) | CPT/HCPCS: 70450 ==

== ENCOUNTER 2024-05-03 12:44 | Outpatient (AMB) | payer OTHER, SELFPAY ==
--- OUTSIDE RECORDS SUMMARY | 2024-05-03 12:46 | XMS_ITS ---
Author Organization [facility] [place] [facility] Address [address] [place] [address] Care Team Providers Care Director Communications Name Role Phone Fox Ku MD Primary Care Provider Tashi Bruno Unavailable [phone] Alisha Moore Unavailable Unavailable REASON FOR VISIT screening,hx polyps PROBLEMS Problem Type ICD Code Onset Dates Problem Status W/U Status Risk SNOMED Code Notes Problem Diverticulosis of large intestine without perforation or abscess without bleeding (K57.30) Active confirmed Diverticul ar disease of colon (487257539) Encounters Encounter Location Date Provider Diagnosis [facility] Out[place] [address] [place] [phone] 07/13/2023 Tashi Currie Encounter for scre ening [...]
--- OUTSIDE RECORDS SUMMARY | 2024-05-03 12:46 | XMS_ITS | Patient Health Record ---
Author Organization [facility] Address [address] [place] [address] Care Team Providers Care Taxi Driver Name Role Phone Fox Ku MD Primary Care Provider Tashi Bruno Unavailable [phone] Alisha Moore Unavailable Unavailable ALLERGIES No Known Allergies RESULTS Component Value Reference Range Notes Pathology (Not yet reviewed by provider) Interpretation: Performing Lab:[facility], [address] [place] [phone] Notes/Report: Glucose, Whole Blood Reviewed date:07/13/2023 07:14:58 PM Interpretation: Performing Lab:[facility], [address] [place] [phone] Notes/Report: Glucose, Whole Blood 114 60-115 mg/dL METER # : [id number] REASON FOR REFERRAL No Information MEDICATIONS Medication [...] iron deficiency anemia type (D50.9) Active confirmed 46902935 Problem History of adenomatous polyp of colon (Z86.010) Active confirmed 369372157 Problem Colon cancer screening (Z12.11) Active confirmed 134814968 Problem Preprocedural examination (Z01.818) Active confirmed 186888515879935 Problem Gastroesophageal reflux disease without esophagitis (K21.9) Active confirmed 052295808 Problem Diverticulosis of large intestine without perforation or abscess without bleeding (K57.30) Active confirmed Diverticul ar disease of colon (377011861) Encounters Encounter Location Date Provider Diagnosis [facility] Outpatient [address] [place] [phone] 07/13/2023 Tashi Currie Encounter for scre ening [...] Insured Coverage Start Date Coverage End Date [facility] [address] [address] [place], [place] [id number] KIAN MAHMOOD Self - patient is the insured MEDICAID OF [employer] [address] [place] [address] [id number] KIAN MAHMOOD Self - patient is the insured MEDICAL (GENERAL) HISTORY Medical History History ICD Code IDDM Hypertension Heart murmur-Dr. Collins Asthma/COPD- Dr. Correa Pulmonary embolus in 2015--on Coumadin-- sees Dr. Moore Lung mass--surgery in 2008 a s below, with XRT; biopsied in approx 2015 and benign--followed by Dr. Tino Dimas [place],CVA,renal disease GERD--upper endoscopy August of 2017 with [...] History Surgery Date(Month/Year) Mass removed--Dr. Fields at [facility]-- Be nign , but had XRT 2008 Right inguinal hernia 1990 Ear tubes/Adenoids
--- OUTSIDE RECORDS SUMMARY | 2024-05-03 12:46 | XMS_ITS ---
Author Organization [facility] Address [address] [place] [address] Care Team Providers Care Outside Industrial Sales Representative Name Role Phone Fox Ku MD Primary Care Provider Tashi Bruno Unavailable [phone] Alisha Moore Unavailable Unavailable ALLERGIES No Known [...] adenomatous polyp of colon (Z86.010) Active confirmed 204167217 Problem Colon cancer screening (Z12.11) Active confirmed 808990384 Problem Preprocedural examination (Z01.818) Active confirmed 888815687720120 Problem Gastroesophageal reflux disease without esophagitis (K21.9) Active confirmed 513936614 VITAL SIGNS BMI 40.13 kg/m2 04/17/2023 Blood pressure systolic 00 mm Hg 04/17/20 23 Blood pressure diastolic 00 mm Hg 023 Height 67.75 in 04/17/2023 Temperature 97.7 degrees Fahrenheit 04/17/20 23 Weight 262 lbs 04/17/2023 Encounters Encounter Location Date Provider Diagnosis [facility] [address] [place] [address] 04/17/2023 Tashi Currie Preprocedural examin ation Z01.818 [...]
--- OUTSIDE RECORDS SUMMARY | 2024-05-03 12:46 | XMS_ITS ---
Author Organization [facility] Address [address] [place] [address] Care Team Providers Care Adult Parole Officer Name Role Phone Fox Ku MD Primary Care Provider Tashi Bruno [phone] Alisha Moore Unavailable Unavailable REASON FOR VISIT [...] Active Encounters Encounter Location Date Provider Diagnosis [facility] [address] [place] [phone] 04/17/2023 Tashi Currie PLAN OF TREATMENT Medication [...]
[2024-05-03 13:04] VITALS: BP 120/58; PULSE 67; O2SAT 94; BMI 35.6
--- NOTE | 2024-05-03 13:04 | A.OFFPC_ITS ---
Vital Signs 05/03/24 13:04 Height 5 ft 8 in Weight 234 lb 2 oz BMI 35.6 BP 120/58 L Blood Pressure Location Lt brachial Position Sitting Pulse 67 Pulse Source Pulse Oximeter Pulse Oximetry (%) 94 Oxygen Delivery Method Room Air Intake Visit Reasons: 3 Months f/u Intake Note: Patient is here to follow up on DM. Manager Interventional Required: No Dancing Master: Not Required per policy Accompanied by: Self / Same As Patient Allergies pollen extracts [POLLEN] Allergy (Mild, Verified 05/03/24 13:36) RUNNY NOSE cat dander [CATS] Allergy (Unknown, Verified 05/03/24 13:36) UNKNOWN dog dander [DOGS] Allergy (Unknown, Verified 05/03/24 13:36) UNKNOWN mold [MOLD] Allergy (Unknown, Verified 05/03/24 13:36) UNKNOWN Medication List - Last Reconciled 05/03/24 by Bon Arvizu MD atenolol 25 mg PO DAILY atorvastatin 40 mg PO DAILY 90 days bupropion HCl XL 150 mg PO QAM 30 days cephalexin 500 mg PO QID cholecalciferol (vitamin D3) 50 mcg PO DAILY 90 days escitalopram oxalate 20 mg PO QAM ferrous sulfate 325 mg PO DAILY insulin glargine (Lantus Solostar U-100 Insulin) 20 units (0.2 mL) subcut QPM 30 days lorazepam 0.5 mg PO BID PRN 15 days meclizine 25 mg PO TID PRN metformin 1,000 mg PO BID 90 days montelukast 10 mg PO DAILY omeprazole 40 mg PO DAILY 90 days ondansetron 4 mg PO Q8H PRN pen needle, diabetic (BD Ultra-Fine Estrella Pen Needle) As directed tamsulosin 0.4 mg PO BEDTIME 30 days trazodone 50 mg PO BEDTIME PRN Ventolin HFA 90 mcg/actuation (albuterol sulfate) 2 puffs PO Q4H PRN NS Tobacco use date assessed: 05/03/24 Dental Screening Dental Screen Date: 02/03/24 HPI 3 Months f/u HPI Details Patient comes in today for his follow up visit He went to the ER yesterday for increasing dizziness, nausea, headaches and left arm pain While being examined in the ER, the examiner reportedly noticed a foul-smell from patient and noticed him picking and scratching at his left lower anterior chest wall and on exam, noticed a large area of open wound with scabs and some erythema and drainage over the left chest wall area where he had 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; he also had resection of several ribs on the left side back then Patient states that he fell about a week ago and ended up with the recent injuries to his left chest wall Chest CT done at the ER did not show any evidence of osteomyelitis but did reveal the previous osteotomies of the posterior left 5th through 8th ribs His cardiac work ups were negative and his chest pains apparently resolved while he was being evaluated in the ER He was started on Cephalexin and instructed to keep his PCP appointment today Patient states that he currently feels okay although he feels bummed out about the weather - states that he does not like this kind of weather He denies any fever, headaches or dizziness Denies any exertional chest pains although his left anterior chest wall still feels sore, presumably from his current active chest wound He denies any SOB No nausea/vomiting, no abdominal pain No change in bowel habits noted He had his follow up labs done a couple of weeks ago - to discuss his results [facility] Medical History Allergic rhinitis Insomnia Palpitations Vitamin D deficiency Chronic kidney disease, stage III (moderate) GERD without esophagitis Restrictive lung disease Obesity (BMI 30-39.9) Benign essential hypertension Pure hypercholesterolemia Diabetes mellitus Pulmonary emboli Chondrosarcoma Hyperlipidemia Chronic restrictive lung disease COPD (chronic obstructive pulmonary disease) Asthma Surgical History (Updated 05/03/24 @ 13:57 by Bon Arvizu MD) History of esophagogastroduodenoscopy (EGD) H/O colonoscopy History of inguinal hernia repair Hx of exploratory thoracotomy H/O tooth extraction Family History Father Hypertension Kidney failure, acute Mother Lung cancer Family/Other Diabetes Social History Housing: House Alcohol intake: never Patient Tobacco Use Status: Never used Tobacco e-Cigarette/Vaping Use: Never Used Second Hand Smoke Exposure: Yes service: No Current occupational status: unemployed Cognitive needs: No Hearing needs: No Vision needs: Yes (Glasses) Questionnaire PHQ-9 Over the last 2 weeks, how often have you been bothered by any of the following problems? Depression Screening Interpretation: Negative Depression Screening Done: Yes Source: Developed by Drs. Tashi Michael, Laura Archer, Ambrosio iXe and colleagues, with an educational maría elena from [employer]. Thrive Questionnaire Date Thrive assessed: 02/03/24 Are you currently unemployed and looking for a job?: Yes Currently or been in a relationship where the following occur: No concerns reported THRIVE Score: 0 CATIE-7 AMB Questionnaire CATIE-7 Date CATIE - 7 assessed: 02/03/24 Source: Developed by Drs. Tashi Michael, Laura Archer, Ambrosio Xie and colleagues, with an educational maría elena from [employer]. Review of Systems Const Denies chills, Denies difficulty sleeping (Rx helping a lot), Reports fatigue, Denies fever(s) and Denies headache(s) ENT Denies dysphagia, Denies dizziness, Denies otalgia, Denies headache(s), Denies neck pain, Denies odynophagia and Denies sore throat Card Reports chest pain (left anterior chest wall feels sore - see HPI), Denies rapid heart rate and Denies dyspnea Resp Denies chest congestion, Denies cough and Denies dyspnea GI Denies abdominal pain, Denies constipation, Denies dysphagia, Denies heartburn, Denies diarrhea, Denies nausea, Denies odynophagia and Denies vomiting Denies dysuria, Denies nocturia and Denies urinary frequency Musc Denies back pain and Denies neck pain Skin/Breast Denies rash Neuro Denies dizziness and Denies headache(s) Psych Reports anxiety (often) Endo Reports fatigue Physical exam (Primary Care) Vital Signs: Last Vital Signs Pulse 67 05/03/24 13:04 BP 120/58 L 05/03/24 13:04 Pulse Ox 94 05/03/24 13:04 Oxygen Delivery Method Room Air 05/03/24 13:04 BMI result Body Mass Index 35.6 Tobacco/Smoking Status: Tobacco use Status Tobacco use date assessed 05/03/24 05/03/24 13:08 Patient Tobacco Use Status Never used Tobacco 05/03/24 13:08 e-Cigarette/Vaping Use Never Used 05/03/24 13:08 Depression Screening Interpretation: Negative Thrive Assessment: Date of Thrive Assessment Date Thrive assessed 02/03/24 05/03/24 13:08 Currently or been in a relationship where the following occur: No concerns reported Const General: no acute distress, alert and poor hygiene (appears unkempt and smelly) Orientation/consciousness: patient oriented x3 HENMT Ears: TM's normal bilaterally and EAC's normal Throat: Yes posterior oropharynx normal and Yes tonsils normal (no TP congestion) Neck Neck: Yes supple and No lymphadenopathy Thyroid: Thyroid normal Chest Other: (+) large area of multiple excoriations and open abrasion injuries over the left lower anterior chest wall where his thoracotomy and rib resections were performed years ago Resp Auscultation: clear to auscultation bilaterally, no rales and no wheezes Cardio Rate: regular rate Rhythm: regular rhythm Heart sounds: no murmurs GI Palpation (GI): Soft to palpation and nontender Auscultation: normal bowel sounds General: Yes no CVA tenderness Back/Spine/Pelvis Back: no CVA tenderness Thoracic/Lumbar Spine: No lumbar spinal tenderness Skin Rashes: no rashes Neuro General: patient oriented x3 Extrem General: Yes no clubbing, cyanosis or edema Results Reviewed Results Reviewed: Laboratory Tests 04/19/24 04/19/24 05/02/24 09:21 09:22 13:17 WBC 7.7 Hgb 15.2 Hct 45.4 Plt Count 206 ESR 28 H Sodium 142 Potassium 4.6 Creatinine 1.38 Estimated GFR 54 Random Glucose 90 Calcium 9.9 D AST 17 ALT 8 Triglycerides 154 H Cholesterol 120 LDL Cholesterol, Calc 59 HDL Cholesterol 31 L 25-OH Vitamin D Total 100.4 TSH 1.34 Free T4 1.03 Ur Specific [place] 1.010 Urine Protein Negative Urine Glucose (UA) Negative Urine Blood Moderate (2+) H Urine Nitrite Negative Ur Leukocyte Esterase Negative Microalb/Creat Ratio 14.6 Laboratory Tests 04/19/24 09:22 Hemoglobin A1c % 6.0 Coding Level of Care Code Est Pt Level 4 (83071) Diagnoses Open wound of left chest wall, sequela S21.102S Encounter type: sequela Type 2 diabetes mellitus with hyperglycemia, without long-term current use of insulin E11.65 Diabetes mellitus type: type 2 Diabetes mellitus continuous churn buttermaker insulin use: without nursing home use Diabetes mellitus complication status: with hyperglycemia Pure hypercholesterolemia E78.00 Benign essential hypertension I10 Stage 3a chronic kidney disease N18.31 Chronic kidney disease stage 3 subtype: stage 3a (GFR 45-59) Vitamin D deficiency E55.9 Elevated TSH R79.89 Chronic restrictive lung disease J98.4 Urinary frequency R35.0 Insomnia, unspecified type G47.00 Insomnia type: unspecified Anxiety F41.9 Obesity (BMI 30-39.9) E66.9 Assessment & Plan Assessment & Plan (1) Open wound of left chest wall: Code(s): S21.102A - Unspecified open wound of left front wall of thorax without penetration into thoracic cavity, initial encounter Category: Medical Qualifiers: Encounter type: sequela Qualified Code(s): S21.102S - Unspecified open wound of left front wall of thorax without penetration into thoracic cavity, sequela Plan: Patient relates that he fell about a week ago and sustained the current injuries/wounds that he has on his left lower anterior chest wall over his scars from his previous thoracotomy (for chondrosarcoma) done in 2008 There appears to be some open wounds there as well as some erythema noted He was started on Cephalexin 500 mg QID at the ER yesterday and he is advised to continue taking these until they are all finished Due to the extent of his injuries and the fact that he is a diabetic and also his apparent poor personal hygiene, will refer him to the wound clinic for urgent consultation and recommendations regarding his chest wall injury (2) Diabetes mellitus: Comment: taking Lantus insulin, Metformin, Montelukast Code(s): E11.9 - Type 2 diabetes mellitus without complications Category: Medical Qualifiers: Diabetes mellitus type: type 2 Diabetes mellitus nursing home insulin use: without continuous churn buttermaker use Diabetes mellitus complication status: with hyperglycemia Qualified Code(s): E11.65 - Type 2 diabetes mellitus with hyperglycemia Plan: His HgbA1c was at 6.0% on his labs done a couple of weeks ago (HgbA1c was previo usly at 6.4% a few months ago) - goal is <7.0% Reinforced diabetic diet Continue Lantus 20 units QD and Metformin 1000 mg BID (3) Pure hypercholesterolemia: Code(s): E78.00 - Pure hypercholesterolemia, unspecified Category: Medical Plan: Results of his labs done a couple of weeks ago reviewed and discussed with patient Reinforced low cholesterol diet Continue Atorvastatin 40 mg QD Will recheck his labs and fasting lipids in 3 months for follow-up (4) Benign essential hypertension: Code(s): I10 - Essential (primary) hypertension Category: Medical Plan: Reinforced low sodium diet - goal is systolic BP of 120 mm or less Continue Atenolol 25 mg QD (5) Chronic kidney disease, stage III (moderate): Code(s): N18.30 - Chronic kidney disease, stage 3 unspecified Category: Medical Qualifiers: Chronic kidney disease stage 3 subtype: stage 3a (GFR 45-59) Qualified Code(s): N18.31 - Chronic kidney disease, stage 3a Plan: His serum creatinine and GFR have remained steady and are mostly unchanged on his recent labs Renal US done last year came back normal Will continue to monitor his renal function regularly/closely Follow up with nephrology as scheduled (6) Vitamin D deficiency: Code(s): E55.9 - Vitamin D deficiency, unspecified Category: Medical Plan: Continue Vitamin D3 2000 units QD (7) Elevated TSH: Code(s): R79.89 - Other specified abnormal findings of blood chemistry Category: Medical Plan: His serum TSH and free T4 levels were again both normal on his recent labs; patient is clinically euthyroid Will continue to monitor his TFTs regularly (8) Chronic restrictive lung disease: Comment: CHRONIC RESTRICTIVE LUNG DISEASE SECONDARY TO, PAST 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 GROSS OBESITY ALSO CONTRIBUTES TO RESTRICTIVE DISORDER. Chest x-ray is ordered . Just for a baseline. Code(s): J98.4 - Other disorders of lung Category: Medical Plan: Continue Albuterol HFA 2 inhalations every 6 hours PRN He used to be on Trelegy but his insurance declined to continue covering his Rx PFTs done last year showed only findings of mild COPD Follow up with pulmonary as scheduled (9) Urinary frequency: Code(s): R35.0 - Frequency of micturition Category: Medical Plan: Patient states that his urinary frequency has improved a lot (though not completely) with Tamsulosin - symptoms are likely due to BPH Serum PSA level was normal when last checked Continue Tamsulosin 0.4 mg Q HS To consider referral to urology if his urinary frequency or symptoms continue to persist or progress (10) Insomnia: Code(s): G47.00 - Insomnia, unspecified Category: Medical Qualifiers: Insomnia type: unspecified Qualified Code(s): G47.00 - Insomnia, unspecified Plan: Sleep hygiene reinforced Continue Trazodone 50 mg Q HS PRN - states that Rx has helped a lot with his sleep lately (11) Anxiety: Code(s): F41.9 - Anxiety disorder, unspecified Category: Medical Plan: Continue Escitalopram 20 mg QD, Bupropion XL 150 mg Q AM and Lorazepam 0.5 mg BID PRN (12) Obesity (BMI 30-39.9): Comment: He remains grossly overweight. Denies symptoms of sleep apnea. Trying to lose weight on his own with diet and exercise. DID LOSE ABOUT 10 LB IN THE LAST 6 MONTHS. However he is not able to do much exercise, as he cannot walk long distance Code(s): E66.9 - Obesity, unspecified Category: Medical Plan: Reinforced diet/exercise as tolerated/lose weight Plan Follow up in 3 months Orders: Orders Complete Blood Count Auto Diff 3 Months D64.9 - Anemia, unspecified Comprehensive [place]. Panel Fast 3 Months E78.00 - Pure hypercholesterolemia, unspecified Microalbumin, Random (w Creat) 3 Months E11.9 - Type 2 diabetes mellitus without complications TSH reflex Free T4 3 Months E78.00 - Pure hypercholesterolemia, unspecified Hemoglobin A1c 3 Months E11.9 - Type 2 diabetes mellitus without complications Lipid Panel 3 Months E78.00 - Pure hypercholesterolemia, unspecified UA CC w/rflx Micro + Cult 3 Months R30.0 - Dysuria Vitamin D 25-OH Total 3 Months E55.9 - Vitamin D deficiency, unspecified Referrals Wound Care Referral E11.65 - Type 2 diabetes mellitus with hyperglycemia, S21.102S - Unspecified open wound of left front wall of thorax without penetration into thoracic cavity, sequela
== END 2024-05-03 13:53 | disposition home or self-care (01) ==
PROVIDERS: PCP Internal Medicine; Visit Provider Internal Medicine
DX: I12.9 Hypertensive chronic kidney disease with stage 1 through stage 4 chronic kidney disease, or unspecified chronic kidney disease (principal); E11.65 Type 2 diabetes mellitus with hyperglycemia; N18.31 Chronic kidney disease, stage 3a; S21.102S Unspecified open wound of left front wall of thorax without penetration into thoracic cavity, sequela; E78.00 Pure hypercholesterolemia, unspecified; E55.9 Vitamin D deficiency, unspecified; J98.4 Other disorders of lung; R35.0 Frequency of micturition; G47.00 Insomnia, unspecified; F41.9 Anxiety disorder, unspecified; E66.9 Obesity, unspecified

== ENCOUNTER → 2024-05-03 12:44 | Outpatient (BNVA) | payer OTHER, SELFPAY | PROVIDERS: PCP Internal Medicine; Visit Provider Internal Medicine | DX: S61.1 Open wound of thumb with damage to nail (principal); E11.65 Type 2 diabetes mellitus with hyperglycemia; E78.00 Pure hypercholesterolemia, unspecified; I12.9 Hypertensive chronic kidney disease with stage 1 through stage 4 chronic kidney disease, or unspecified chronic kidney disease; N18.31 Chronic kidney disease, stage 3a; E55.9 Vitamin D deficiency, unspecified; R79.89 Other specified abnormal findings of blood chemistry; J98.4 Other disorders of lung; R35.0 Frequency of micturition; G47.00 Insomnia, unspecified; F41.9 Anxiety disorder, unspecified; E66.9 Obesity, unspecified | CPT/HCPCS: 99212 ==

== ENCOUNTER 2024-05-17 14:18 | Inpatient (IN) | payer OTHER, SELFPAY ==
[2024-05-17 14:23] VITALS: BP 137/78; PULSE 93; RESP 18; TEMP 36.7; O2SAT 96; BMI 46.3
--- NOTE | 2024-05-17 14:30 | ED_ITS ---
HPI - General Adult General Chief complaint: Psychiatric Symptoms Stated complaint: Numbness R hand Time Seen by Provider: 05/17/24 15:00 Source: patient Limitations: no limitations History of Present Illness ED Provider: Dr. Larry Stern HPI narrative: 53-year-old male with a history of diabetes mellitus, hypertension, asthma, anxiety, GERD who presents emergency department for hearing voices and suicidal ideation. Patient was states that 03:00 hours on the morning of arrival he started hearing voices. He states that the voices are mumbling to him and sometimes he can understand the voices. The voices are not giving him commands. Patient states that he had numbness in his right hand and he was coming to the emergency department for evaluation on his way to the emergency department, he began to have thoughts of suicide but did not have any specific my end. He states he has suicidal thoughts in the past but has never acted on them. He denies alcohol and drug use. Patient was seen in the emergency department on 05/02/2024 and diagnosed with chest pain, left chest wall wound and vertigo patient also follow up with his PCP on 05/03/2024 for anxiety. Related Data Home Medications ?Medication ?Instructions ?Recorded ?Confirmed insulin glargine-yfgn 100 unit/mL 20 unit subcut DAILY 05/17/24 05/17/24 (3 mL) subcutaneous pen Previous Rx's ?Medication ?Instructions ?Recorded pen needle, diabetic 32 gauge x #100 ea 08/03/23 (BD Ultra-Fine Estrella Pen Needle) cholecalciferol (vitamin D3) 50 50 mcg PO DAILY 90 days #90 caps 10/06/23 mcg (2,000 unit) capsule atenolol 25 mg tablet 25 mg PO DAILY #90 tabs 01/20/24 escitalopram oxalate 20 mg tablet 20 mg PO QAM #90 tabs 01/20/24 metformin 1,000 mg tablet 1,000 mg PO BID 90 days #180 tabs 01/20/24 ferrous sulfate 325 mg (65 mg 325 mg PO DAILY #90 tabs 02/29/24 iron) tablet atorvastatin 40 mg tablet 40 mg PO DAILY 90 days #90 tabs 03/26/24 omeprazole 40 mg capsule,delayed 40 mg PO DAILY 90 days #90 caps 03/26/24 release bupropion HCl 150 mg 24 hr tablet, 150 mg PO QAM 30 days #30 tabs 03/27/24 extended release Ventolin HFA 90 mcg/actuation 2 puff PO Q4H PRN for wheezing #18 03/29/24 aerosol inhaler (albuterol sulfate) ea tamsulosin 0.4 mg capsule 0.4 mg PO BEDTIME 30 days #90 caps 04/22/24 trazodone 50 mg tablet 50 mg PO BEDTIME PRN sleep #90 tabs 04/22/24 meclizine 25 mg tablet 25 mg PO TID PRN dizziness #20 tabs 05/02/24 Allergies Allergy/AdvReac Type Severity Reaction Status Date / Time pollen extracts [POLLEN] Allergy Mild RUNNY NOSE Verified 05/17/24 14:27 cat dander [CATS] Allergy Unknown UNKNOWN Verified 05/17/24 14:27 dog dander [DOGS] Allergy Unknown UNKNOWN Verified 05/17/24 14:27 mold [MOLD] Allergy Unknown UNKNOWN Verified 05/17/24 14:27 Review of Systems 2 Review of Systems: Yes all other systems are reviewed and are negative [facility] Past Medical History Medical History (Updated 05/17/24 @ 16:58 by Larry Stern MD) Allergic rhinitis Insomnia Palpitations Vitamin D deficiency Chronic kidney disease, stage III (moderate) GERD without esophagitis Restrictive lung disease Obesity (BMI 30-39.9) Benign essential hypertension Pure hypercholesterolemia Diabetes mellitus Pulmonary emboli Chondrosarcoma Hyperlipidemia Chronic restrictive lung disease COPD (chronic obstructive pulmonary disease) Asthma Surgical History (Updated 05/03/24 @ 13:57 by Bon Arvizu MD) History of esophagogastroduodenoscopy (EGD) H/O colonoscopy History of inguinal hernia repair Hx of exploratory thoracotomy H/O tooth extraction Family History Family History Father Hypertension Kidney failure, acute Mother Lung cancer Family/Other Diabetes Social History Social History Housing: House Alcohol intake: never Patient Tobacco Use Status: Never used Tobacco Smoked in Last 30 Days: No e-Cigarette/Vaping Use: Never Used Second Hand Smoke Exposure: Yes Use of substances other than those prescribed or required for medical reasons: No Advance Directives: No Advance Directives Information Provided: Yes Do you have a plan to hurt others: Vague service: No Current occupational status: unemployed Cognitive needs: No Hearing needs: No Vision needs: Yes (Glasses) Physical Exam ED Vital Signs: Vital Signs - 24 hr 05/17/24 14:23 05/17/24 14:49 05/18/24 05:16 Temperature 98.0 F 98.2 F Pulse Rate 93 58 Respiratory Rate 18 16 17 Blood Pressure 137/78 122/74 Pulse Oximetry 96 96 Oxygen Delivery Method Room Air Room Air BMI result Body Mass Index 46.3 Vital signs were no Exam: General: Awake, alert in no distress Head: Normocephalic, atraumatic EENT: PERRL, Lids normal, sclera normal, conjunctiva normal, nose normal , ears normal, throat without erythema or exudates Neck: Supple, no adenopathy Lung: breath sounds symmetric, no wheezing, rales or rhonchi Chest: symmetric movement, nontender Heart: regular rate and rhythm, normal S1, S2 no murmurs or rubs Abdomen: soft, non-tender, nondistended, normal bowel sounds Back: no vertebral tenderness, no CVAT Extremities: no deformities, moves all extremities symmetrically Skin: Patient was very dry skin of his upper extremities, he was several circular lesions which may be consistent with psoriasis versus eczema Neuro: Awake, alert, oriented, normal speech, cranial nerves intact, moves all extremities symmetrically Psych: Pleasant, cooperative NIH Stroke Scale Internal: Initial- Upon Arrival Level of Consciousness: Alert Level of Consciousness Questions: Answers both questions correctly Level of Consciousness Commands: Performs both tasks correctly Best Gaze: Normal Visual: No visual loss Facial Palsy: Normal Motor Arm (Right): No drift Motor Arm (Left): No drift Motor Leg (Right): No drift Motor Leg (Left): No drift Limb Ataxia: Absent Sensory: Normal Best Language: No aphasia Dysarthia: Normal Extinction and Inattention: No abnormality Score: 0 Course Course Course Narrative: NEO; 53-year-old male presents to ED for right hand numbness, auditory hallucinations, and and homicidal thoughts. NIH score is 0- for any neuro deficits. Patient states numbness started since this morning around 6am. Care team consult placed and labs. Patient to be brought to the ED. patient had thoughts stabbing himself. Medications Administered Generic Name Dose Route Start Last Admin Trade Name Freq PRN Reason Stop Dose Admin Bupropion HCl 150 mg 05/17/24 22:30 05/17/24 22:39 Bupropion Hcl Xl 150 Mg Tab.Er.24h PO Not Given DAILY DANIEL Escitalopram Oxalate 20 mg 05/17/24 22:30 05/17/24 22:40 Escitalopram Oxalate 20 Mg Tablet PO Not Given DAILY DANIEL Metformin HCl 1,000 mg 05/17/24 22:30 05/17/24 23:07 Metformin Hcl 1,000 Mg Tablet PO 1,000 mg BID DANIEL Administration Tamsulosin HCl 0.4 mg 05/17/24 22:30 05/17/24 23:07 Tamsulosin Hcl 0.4 Mg Capsule PO 0.4 mg BEDTIME DANIEL Administration Discontinued Medications Generic Name Dose Route Start Last Admin Trade Name Conner PRN Reason Stop Dose Admin Insulin Glargine 20 unit 05/17/24 22:30 05/17/24 22:40 Insulin Glargine,Hum.Rec.Anlog 100 Unit/Ml 10 Ml Vial SUBCUT Not Given BEDTIME DANIEL Medical Decision Making Medical Decision Making MDM Narrative: 53-year-old male with a history of diabetes mellitus, hypertension, asthma, anxiety, GERD who presents emergency department for new onset hearing voices, suicidal ideation and numbness of his right hand. Patient states that he was had suicidal thoughts in the past but it was never acted on these thoughts. He states he was having suicidal thoughts now but does not have a specific plan to harm himself Differential diagnosis: ?Includes but is not limited to auditory hallucinations, depression, anxiety, suicidal ideation, diabetic neuropathy Course: 16:54 My interpretation patient's laboratory evaluation is as follows: CBC was normal. CMP revealed elevated glucose of 125, elevated alk-phos of 129 urinalysis positive for blood. Microscopic revealed 11-20 RBCs, 0-5 WBCs. Ethanol below detectable limits, urine tox screen negative. COVID-19, influenza and RSV were negative. At this time I believe that the patient's numbness in his right hand is more consistent with diabetic neuropathy and I did discuss this with him. The patient was medically cleared for care team evaluation. 22:16 Start physician observation Patient was been evaluated by the care team and is in in-patient bed search. Patient will remain in the emergency department Behavioral [facility] Unit until disposition can be determined or until patient's symptoms improve over time. At the end of my shift, patient's care was turned over to my colleague, Dr. Jessika Fernandez. Admission/Observation Consideration of admission/observation: Escalation of care including admission/observation considered (Yes) Lab Data MDM Lab Attestation statement: I reviewed the patient's lab results. 05/17/24 15:21 05/17/24 15:21 Labs: Lab Results 05/17/24 05/17/24 05/17/24 Range/Units 14:28 15:05 15:21 WBC 7.9 (4.8-10.8) X10*3/uL RBC 5.09 (4.60-5.80) X10*6/uL Hgb 14.9 (14.0-18.0) g/dl Hct 45.5 (42.0-52.0) % MCV 89.4 (80.0-98.0) fL MCH 29.3 (27.0-33.0) pg MCHC 32.7 (31.0-36.0) g/dl RDW 14.4 (11.0-16.0) % Plt Count 236 (160-400) X10*3/uL MPV 9.9 (9.4-12.4) fL Immature Gran % (Auto) 0.4 (0.0-0.4) % Neut % (Auto) 74.5 H (45-73) % Lymph % (Auto) 16.9 L (20-40) % [place] % (Auto) 5.3 (2-11) % Eos % (Auto) 2.5 (0-4) % Baso % (Auto) 0.4 (0-2) % Lymph # (Auto) 1.3 (1.2-4.9) X10*3/uL [place] # (Auto) 0.4 (0.1-1.2) X10*3/uL Eos # (Auto) 0.2 (0.0-0.4) X10*3/uL Baso # (Auto) 0.0 (0.0-0.2) X10*3/uL Abs Immat Gran (auto) 0.03 (0.00-0.03) X10*3/uL Absolute Neuts (auto) 5.9 (2.0-8.3) x10*3/uL Absolute Nucleated RBC 0.000 (0.0-0.012) X10*3/uL Nucleated RBC % (auto) 0.0 (0.0-0.2) /100WBC Hold Purple Top SEE NOTE Sodium 143 (135-145) mmol/L Potassium 4.0 (3.3-5.1) mmol/L Chloride 106 (96-108) mmol/L Carbon Dioxide 29 (22-29) mmol/L Anion Gap 12 (12-20) BUN 7 L (9-16) mg/dL Creatinine 1.21 (0.5-1.4) mg/dL Estim Creat Clear Calc 72.9 Estimated GFR > 60 Random Glucose 125 H (60-115) mg/dL Calcium 9.3 D (8.4-10.2) mg/dL Magnesium 1.6 (1.6-2.6) mg/dL Total Bilirubin 0.6 (0.0-1.0) mg/dL AST 17 (5-37) U/L ALT 11 (0-40) U/L Alkaline Phosphatase 129 H (39-117) U/L Ammonia Cancelled Total Protein 7.7 (6.5-8.0) g/dL Albumin 4.0 (3.5-5.0) g/dL Urine Color Yellow Urine Appearance Clear Urine pH 5.5 (5.0-9.0) Ur Specific [place] 1.020 (1.005-1.025) Urine Protein Trace (Neg-Trace) mg/dL Urine Glucose (UA) Negative (Negative) mg/dL Urine Ketones Negative (Negative) mg/dL Urine Blood Moderate (2+) H (Negative) Urine Nitrite Negative (Negative) Ur Leukocyte Esterase Negative (Negative) Urine RBC 11-20 H (0-2) /HPF Urine WBC 0-5 (0-5) /HPF Ur Squamous Epith Cells 0-2 (0-2) /HPF Urine Bacteria None Seen (None Seen) Hyaline Casts 3-5 (0-2) /LPF Urine Opiates Screen Not Detected (Not Detect) Ur Buprenorphine Scrn Not Detected (Not Detect) ng/mL Ur Oxycodone Screen Not Detected (Not Detect) ng/mL Urine Methadone Screen Not Detected (Not Detect) ng/mL Urine Fentanyl Screen Not Detected (Not Detect) Ur Barbiturates Screen Not Detected (Not Detect) Ur Phencyclidine Scrn Not Detected (Not Detect) Ur Amphetamines Screen Not Detected (Not Detect) U Benzodiazepines Scrn Not Detected (Not Detect) Urine Cocaine Screen Not Detected (Not Detect) U Marijuana (THC) Screen Not Detected (Not Detect) Ethyl Alcohol < 10 mg/dL 05/17/24 Range/Units 21:26 WBC (4.8-10.8) X10*3/uL RBC (4.60-5.80) X10*6/uL Hgb (14.0-18.0) g/dl Hct (42.0-52.0) % MCV (80.0-98.0) fL MCH (27.0-33.0) pg MCHC (31.0-36.0) g/dl RDW (11.0-16.0) % Plt Count (160-400) X10*3/uL MPV (9.4-12.4) fL Immature Gran % (Auto) (0.0-0.4) % Neut % (Auto) (45-73) % Lymph % (Auto) (20-40) % [place] % (Auto) (2-11) % Eos % (Auto) (0-4) % Baso % (Auto) (0-2) % Lymph # (Auto) (1.2-4.9) X10*3/uL [place] # (Auto) (0.1-1.2) X10*3/uL Eos # (Auto) (0.0-0.4) X10*3/uL Baso # (Auto) (0.0-0.2) X10*3/uL Abs Immat Gran (auto) (0.00-0.03) X10*3/uL Absolute Neuts (auto) (2.0-8.3) x10*3/uL Absolute Nucleated RBC (0.0-0.012) X10*3/uL Nucleated RBC % (auto) (0.0-0.2) /100WBC Hold Purple Top Sodium (135-145) mmol/L Potassium (3.3-5.1) mmol/L Chloride (96-108) mmol/L Carbon Dioxide (22-29) mmol/L Anion Gap (12-20) BUN (9-16) mg/dL Creatinine (0.5-1.4) mg/dL Estim Creat Clear Calc Estimated GFR Random Glucose (60-115) mg/dL Calcium (8.4-10.2) mg/dL Magnesium (1.6-2.6) mg/dL Total Bilirubin (0.0-1.0) mg/dL AST (5-37) U/L ALT (0-40) U/L Alkaline Phosphatase (39-117) U/L Ammonia 59 H Total Protein (6.5-8.0) g/dL Albumin (3.5-5.0) g/dL Urine Color Urine Appearance Urine pH (5.0-9.0) Ur Specific [place] (1.005-1.025) Urine Protein (Neg-Trace) mg/dL Urine Glucose (UA) (Negative) mg/dL Urine Ketones (Negative) mg/dL Urine Blood (Negative) Urine Nitrite (Negative) Ur Leukocyte Esterase (Negative) Urine RBC (0-2) /HPF Urine WBC (0-5) /HPF Ur Squamous Epith Cells (0-2) /HPF Urine Bacteria (None Seen) Hyaline Casts (0-2) /LPF Urine Opiates Screen (Not Detect) Ur Buprenorphine Scrn (Not Detect) ng/mL Ur Oxycodone Screen (Not Detect) ng/mL Urine Methadone Screen (Not Detect) ng/mL Urine Fentanyl Screen (Not Detect) Ur Barbiturates Screen (Not Detect) Ur Phencyclidine Scrn (Not Detect) Ur Amphetamines Screen (Not Detect) U Benzodiazepines Scrn (Not Detect) Urine Cocaine Screen (Not Detect) U Marijuana (THC) Screen (Not Detect) Ethyl Alcohol mg/dL External Record Review External record reviewed: Office record and Other (Previous ED records) Chronic Conditions Patient?s care impacted by: Diabetes and Hypertension Discharge Plan Discharge Clinical Impression: Auditory hallucinations, Suicidal ideation Prescriptions: No Action (DME) pen needle, diabetic [BD Ultra-Fine Estrella Pen Needle] 32 gauge x 5/32 needle See Rx Instructions .Route Qty: 100 5RF Rx Instructions: As directed cholecalciferol (vitamin D3) 50 mcg (2,000 unit) capsule 50 mcg PO DAILY 90 Days Qty: 90 3RF metformin 1,000 mg tablet 1,000 mg PO BID 90 Days Qty: 180 1RF atenolol 25 mg tablet 25 mg PO DAILY Qty: 90 8RF escitalopram oxalate 20 mg tablet 20 mg PO QAM Qty: 90 1RF ferrous sulfate 325 mg (65 mg iron) tablet 325 mg PO DAILY Qty: 90 1RF atorvastatin 40 mg tablet 40 mg PO DAILY 90 Days Qty: 90 1RF omeprazole 40 mg capsule,delayed release(DR/EC) 40 mg PO DAILY 90 Days Qty: 90 1RF bupropion HCl 150 mg tablet extended release 24 hr 150 mg PO QAM 30 Days Qty: 30 1RF albuterol sulfate [Ventolin HFA] 90 mcg/actuation HFA aerosol inhaler 2 puff PO Q4H PRN (Reason: for wheezing) Qty: 18 3RF trazodone 50 mg tablet 50 mg PO BEDTIME PRN (Reason: sleep) Qty: 90 0RF tamsulosin 0.4 mg capsule 0.4 mg PO BEDTIME 30 Days Qty: 90 1RF meclizine 25 mg tablet 25 mg PO TID PRN (Reason: dizziness) Qty: 20 0RF insulin glargine-yfgn 100 unit/mL (3 mL) insulin pen 20 unit subcut DAILY Interventions: [place]-Suicide Risk Severity Scale Last Done: 05/18/24 05:37 Print Language: Kyrgyz
[2024-05-17 14:49] VITALS: RESP 16
[2024-05-17 15:19] LABS: Appearance Urine Clear; Color Urine Yellow; Glucose Urine UA Negative (Negative); Leukocyte Esterase Urine Negative (Negative); Nitrite Urine Negative (Negative); PH 5.5 (5.0-9.0); UMIC TRIGGER UACC YES; Urine Blood Moderate (2+) (Negative); Urine Ketones Negative (Negative); Urine Protein Trace mg/dL (Neg-Trace)
[2024-05-17 15:24] LABS: Bacteria Urine None Seen (None Seen); Squamous Epithelial Cell Urine 0-2 /HPF (0-2); WBC Urine 0-5 /HPF (0-5)
[2024-05-17 15:25] LABS: MANUAL DIFF FLAG NO
[2024-05-17 15:27] LABS: Amphetamine Screen Urine Not Detected (Not Detect); Barbiturates, Urine Not Detected (Not Detect); Benzodiazepines Screen Urine Not Detected (Not Detect); Buprenorphine Scr Not Detected (Not Detect); Cannabinoid Screen Urine Not Detected (Not Detect); Cocaine Screen Urine Not Detected (Not Detect); Fentanyl, urine Not Detected (Not Detect); Methadone Screen, Urine Not Detected (Not Detect); Opiate Screen Urine Not Detected (Not Detect); Oxycodone Screen Urine Not Detected (Not Detect); Phencyclidine Screen Urine Not Detected (Not Detect)
[2024-05-17 15:30] LABS: Basophils Percent Auto 0.4 % (0-2); Eosinophils Absolute Auto 0.2 X10*3/uL (0.0-0.4); Eosinophils Percent Auto 2.5 % (0-4); Hematocrit 45.5 % (42.0-52.0); Hemoglobin 14.9 g/dl (14.0-18.0); Imm Gran Abs Auto 0.03 X10*3/uL (0.00-0.03); Imm Gran Pct Auto 0.4 % (0.0-0.4); Lymphocytes Absolute Auto 1.3 X10*3/uL (1.2-4.9); Lymphocytes Percent Auto 16.9 % (20-40); Mean Corpuscular HGB Conc 32.7 g/dl (31.0-36.0); Mean Corpuscular Hemoglobin 29.3 pg (27.0-33.0); Mean Corpuscular Volume 89.4 fL (80.0-98.0); Mean Platelet Volume 9.9 fL (9.4-12.4); Monocytes Absolute Auto 0.4 X10*3/uL (0.1-1.2); Monocytes Percent Auto 5.3 % (2-11); Neutrophils Absolute Auto 5.9 x10*3/uL (2.0-8.3); Neutrophils Percent Auto 74.5 % (45-73); Platelet Count 236 X10*3/uL (160-400); Red Blood Count 5.09 X10*6/uL (4.60-5.80); Red Cell Distribution Width 14.4 % (11.0-16.0); White Blood Count 7.9 X10*3/uL (4.8-10.8)
[2024-05-17 15:47] LABS: Magnesium 1.6 mg/dL (1.6-2.6)
[2024-05-17 15:55] LABS: Alanine Aminotransferase 11 U/L (0-40); Anion Gap 12 (12-20); Aspartate Amino Transferase 17 U/L (5-37); Bilirubin Total 0.6 mg/dL (0.0-1.0); Blood Urea Nitrogen 7 mg/dL (9-16); Calcium 9.3 mg/dL (8.4-10.2); Carbon Dioxide 29 mmol/L (22-29); Chloride 106 mmol/L (96-108); Creatinine Clr Calc Pharmacy 72.9; Estimated Glomerular Filt Rate > 60; Ethanol < 10 mg/dL; Glucose Random 125 mg/dL (60-115); Sodium 143 mmol/L (135-145); Total Protein 7.7 g/dL (6.5-8.0)
[2024-05-17 16:30] LABS: Alkaline Phosphatase 129 U/L (39-117)
--- OUTSIDE RECORDS SUMMARY | 2024-05-17 17:51 | XMS_ITS ---
Author Organization [facility] Address [address] [place] [address] Care Team Providers Care Fighter Pilot Name Role Phone Fox Ku MD Primary Care Provider Tashi Bruno Unavailable [phone] Alisha Moore Unavailable Unavailable REASON FOR VISIT screening,hx polyps PROBLEMS Problem Type ICD Code Onset Dates Problem Status W/U Status Risk SNOMED Code Notes Problem Diverticulosis of large intestine without perforation or abscess without bleeding (K57.30) Active confirmed Diverticul ar disease of colon (927682971) Encounters Encounter Location Date Provider Diagnosis [facility] Outpatient [address] [place] [id number] 07/13/2023 Tashi Currie Encounter for scre ening [...]
--- OUTSIDE RECORDS SUMMARY | 2024-05-17 17:52 | XMS_ITS | Patient Health Record ---
Author Organization [facility] Address [address] [place] [address] Care Team Providers Care Wood Heel Flap Inserter Name Role Phone Fox Ku MD Primary Care Provider Tashi Bruno Unavailable [phone] Alisha Moore Unavailable Unavailable ALLERGIES No Known Allergies RESULTS Component Value Reference Range Notes Pathology (Not yet reviewed by provider) Interpretation: Performing Lab:[facility], [address] [place] [id number] Notes/Report: Glucose, Whole Blood Reviewed date:07/13/2023 07:14:58 PM Interpretation: Performing Lab:[facility], [address] [place] [id number] Notes/Report: Glucose, Whole Blood 114 60-115 mg/dL METER # : [id number] REASON FOR REFERRAL No Information MEDICATIONS Medication [...] iron deficiency anemia type (D50.9) Active confirmed 61236041 Problem History of adenomatous polyp of colon (Z86.010) Active confirmed 506748918 Problem Colon cancer screening (Z12.11) Active confirmed 270488120 Problem Preprocedural examination (Z01.818) Active confirmed 604128007973086 Problem Gastroesophageal reflux disease without esophagitis (K21.9) Active confirmed 219301466 Problem Diverticulosis of large intestine without perforation or abscess without bleeding (K57.30) Active confirmed Diverticul ar disease of colon (672030526) Encounters Encounter Location Date Provider Diagnosis [facility] Outpatient [address] [place] [id number] 07/13/2023 Tashi Currie Encounter for scre ening [...] Insured Coverage Start Date Coverage End Date [facility] Active [employer] [facility] [address] [address] [place], [place] [id number] KIAN MAHMOOD Self - patient is the insured MEDICAID OF [id number] [address] [place] [address] [id number] KIAN MAHMOOD Self - patient is the insured MEDICAL (GENERAL) HISTORY Medical History History ICD Code IDDM Hypertension Heart murmur-Dr. Collins Asthma/COPD- Dr. Correa Pulmonary embolus in 2015--on Coumadin-- sees Dr. Moore Lung mass--surgery in 2008 a s below, with XRT; biopsied in approx 2015 and benign--followed by Dr. Tino Dimas [place],CVA,renal disease GERD--upper endoscopy August of 2017 with [...] History Surgery Date(Month/Year) Mass removed--Dr. Fields at [facility]-- Be nign , but had XRT 2008 Right inguinal hernia 1990 Ear tubes/Adenoids
--- OUTSIDE RECORDS SUMMARY | 2024-05-17 17:52 | XMS_ITS ---
Author Organization [facility] Address [address] [place] [address] Care Team Providers Care Patient Relations Coordinator Name Role Phone Fox Ku MD Primary Care Provider Tashi Bruno Unavailable [phone] Alisha Moore Unavailable Unavailable ALLERGIES No Known [...] adenomatous polyp of colon (Z86.010) Active confirmed 490143740 Problem Colon cancer screening (Z12.11) Active confirmed 449569465 Problem Preprocedural examination (Z01.818) Active confirmed 074407039885070 Problem Gastroesophageal reflux disease without esophagitis (K21.9) Active confirmed 752363094 VITAL SIGNS BMI 40.13 kg/m2 04/17/2023 Blood pressure systolic 00 mm Hg 04/17/20 23 Blood pressure diastolic 00 mm Hg 023 Height 67.75 in 04/17/2023 Temperature 97.7 degrees Fahrenheit 04/17/20 23 Weight 262 lbs 04/17/2023 Encounters Encounter Location Date Provider Diagnosis [facility] [address] [place] [address] 04/17/2023 Tashi Currie Preprocedural examin ation Z01.818 [...]
--- OUTSIDE RECORDS SUMMARY | 2024-05-17 17:52 | XMS_ITS ---
Author Organization [facility] Address [address] [place] [address] Care Team Providers Care Teletypesetter Name Role Phone Fox Ku MD Primary Care Provider Tashi Bruno [phone] Alisha Moore Unavailable Unavailable REASON FOR VISIT [...] Active Encounters Encounter Location Date Provider Diagnosis [facility] [address] [place] [id number] 04/17/2023 Tashi Currie PLAN OF TREATMENT Medication [...]
--- NOTE | 2024-05-17 19:41 | PC.NURSE ---
patient appears to remain at rest presently respirations are even and unlabored patient appears in no distress.
--- NOTE | 2024-05-17 20:48 | PC.NURSE ---
informed first sample for ammonia level was not put on ice, reordering
[2024-05-17 22:09] LABS: Ammonia 59 umol/L (13-55)
--- NOTE | 2024-05-17 22:28 | PHA.MEDREC ---
Pharmacy Consult ? Medication Reconciliation Pharmacy has reviewed the medication reconciliation done by nursing staff.
[2024-05-17] MEDS: metFORMIN HCl 1,000 MG TABLET 1000 MG PO (23:07)
[2024-05-17] MEDS: Tamsulosin HCL 0.4 MG CAPSULE PO (23:07)
--- NOTE | 2024-05-18 | ECG_ITS ---
Test Reason : CHECK FOR PROLONG QTC Blood Pressure : */* mmHG Vent. Rate : 60 BPM Atrial Rate : 60 BPM P-R Int : 136 ms QRS Dur : 106 ms QT Int : 454 ms P-R-T Axes : 31 5 -1 degrees QTcB Int : 454 ms Normal sinus rhythm Minimal voltage criteria for LVH, may be normal variant ( R in aVL ) Borderline ECG When compared with ECG of 02-May-2024 12:46, No significant change was found Referred By: Sarah Stapleton Electronically Signed By: BRIGITTE RASMUSSEN
[2024-05-18 05:16] VITALS: BP 122/74; PULSE 58; RESP 17; TEMP 36.8; O2SAT 96
--- NOTE | 2024-05-18 07:26 | PC.NURSE ---
Care of Pt assumed at change of shift. Pt is awake and quietly watching TV in the room. Breakfast tray provided. NAD noted at this time.
[2024-05-18] MEDS: buPROPion HCl XL 150 MG TAB.ER.24H PO (07:51)
[2024-05-18] MEDS: Escitalopram Oxalate 20 MG TABLET PO (07:51)
[2024-05-18] MEDS: Ferrous Sulfate 324 MG TABLET.DR PO (07:51)
[2024-05-18] MEDS: Cholecalciferol (Vitamin D3) 25 MCG TABLET 50 MCG PO (07:51)
[2024-05-18 08:02] VITALS: BP 142/65; PULSE 65; RESP 16; O2SAT 99
--- NOTE | 2024-05-18 08:35 | PC.NURSE ---
EKG completed per request of Admissions.
[2024-05-18 08:40] VITALS: BP 142/65; PULSE 65
[2024-05-18] MEDS: metFORMIN HCl 1,000 MG TABLET 1000 MG PO (08:40)
[2024-05-18] MEDS: Atorvastatin Calcium 40 MG TABLET PO (08:40)
[2024-05-18] MEDS: atenoloL 25 MG TABLET PO (08:40)
[2024-05-18] MEDS: Omeprazole 40 MG CAPSULE.DR PO (08:40)
[2024-05-18] MEDS: Insulin Glargine,Hum.rec.anlog 100 UNIT/ML 10 ML VIAL 20 UNIT SUBCUT (08:41)
--- NOTE | 2024-05-18 08:57 | PC.NURSE ---
absorption and adsorption engineer alerts this RN to a large scabbed wound to Pts L chest noted during EKG. Pt reports this is a healing wound from just before [place] time; ED provider note supports this. Wound/scabbing is just under Pt L pectoral area. Small areas of scabbing noted to be missing. No active bleeding present. No swelling or erythema noted. Pt offers no complaints regarding wound and reports he has numbness there.
[2024-05-18 12:27] LABS: Glucose, Whole Blood 96 mg/dL (60-115)
[2024-05-18 14:10] VITALS: BP 146/70; PULSE 62; RESP 18; TEMP 36; O2SAT 97
[2024-05-18 17:28] LABS: Glucose, Whole Blood 152 mg/dL (60-115)
[2024-05-18 17:47] VITALS: BMI 45.7
--- NOTE | 2024-05-18 17:58 | PC.ADMIT ---
Jasbir was admitted to at 14:04 on 05/18/24 from [facility] pod on a 12a for the treatment of AH and SI. He signed a CV upon arrival. Contraband search was completed by staff. He was noted to have a scabbed over abrasion on his lower left chest. No s/s of infection were noted and he had previously had this assessed in [facility] ED on 05/02/24. He self presented to the ED d/t hearing voices which were making him have SI. He reports that he has not had voices today, but he was scared because he had never experienced this before. He is alert and oriented x4. He denies current suicidal and homicidal thoughts and intent. He denies auditory and visual hallucinations. He was pleasant and cooeperative with admission process. He denies ETOH and substance abuse; utox was negative and BAL<10. He states his goal for hospitalization is to get better, and find out why this happened and get some answers . He was placed on 15 minute checks for safety.
[2024-05-18 19:56] VITALS: BP 123/58; PULSE 73; RESP 16; TEMP 36.4; O2SAT 95
--- NOTE | 2024-05-18 22:46 | PC.NURSE ---
Pt refused all bedtime meds @ 2100
[2024-05-19 03:14] LABS: Glucose, Whole Blood 102 mg/dL (60-115)
[2024-05-19] MEDS: Omeprazole 40 MG CAPSULE.DR PO (06:07)
[2024-05-19 08:02] VITALS: BP 114/65; PULSE 61; TEMP 36.1; O2SAT 95
[2024-05-19 08:21] LABS: Glucose, Whole Blood 111 mg/dL (60-115)
[2024-05-19] MEDS: Albuterol Sulfate 90 MCG 8 GM INHALER 2 PUFF INHALE ×3 (08:55→19:05)
[2024-05-19 09:03] LABS: Ammonia 71 umol/L (13-55)
[2024-05-19 09:12] LABS: Estimated Average Glucose 126 mg/dL; Hemoglobin A1C 167.6487 umol/L; Total Hemoglobin (HGBA1C) 3947.7919 umol/L
[2024-05-19 09:16] LABS: Alanine Aminotransferase 10 U/L (0-40); Albumin Level 3.9 g/dL (3.5-5.0); Alkaline Phosphatase 109 U/L (39-117); Aspartate Amino Transferase 22 U/L (5-37); Bilirubin Direct 0.2 mg/dL (0.0-0.5); Bilirubin Total 0.6 mg/dL (0.0-1.0); Cholesterol 170 mg/dL (<200); HDL Cholesterol 34 mg/dL (>40); LDL Cholesterol Calculated 87 mg/dL (<100); Magnesium 1.8 mg/dL (1.6-2.6); Total Protein 7.4 g/dL (6.5-8.0); Triglycerides 249 mg/dL (<150)
[2024-05-19 09:32] LABS: Free T4 (Free Thyroxine) 0.96 ng/dL (0.71-1.85); Thyroid Stimulating Hormone 1.49 uIU/mL (0.32-4.0)
[2024-05-19 09:41] LABS: Folate 4.4 ng/mL (> or = 4.0); Vitamin B12 158 pg/mL (200-900)
[2024-05-19 09:51] VITALS: BP 114/65; PULSE 61
[2024-05-19] MEDS: Atorvastatin Calcium 40 MG TABLET PO (09:51)
[2024-05-19] MEDS: atenoloL 25 MG TABLET PO (09:51)
[2024-05-19] MEDS: Escitalopram Oxalate 20 MG TABLET PO (09:51)
[2024-05-19] MEDS: buPROPion HCl XL 150 MG TAB.ER.24H PO (09:51)
[2024-05-19] MEDS: Cholecalciferol (Vitamin D3) 25 MCG TABLET 50 MCG PO (09:51)
[2024-05-19] MEDS: Ferrous Sulfate 324 MG TABLET.DR PO (09:52)
[2024-05-19] MEDS: metFORMIN HCl 1,000 MG TABLET 1000 MG PO ×2 (09:52→21:55)
[2024-05-19] MEDS: Insulin Glargine,Hum.rec.anlog 100 UNIT/ML 10 ML VIAL 20 UNIT SUBCUT (09:52)
--- NOTE | 2024-05-19 14:32 | HO.PSYADMNOT ---
HPI Chief Complaint: Depression [facility] Medical History (Updated 05/17/24 @ 16:58 by Larry Stern MD) Allergic rhinitis Insomnia Palpitations Vitamin D deficiency Chronic kidney disease, stage III (moderate) GERD without esophagitis Restrictive lung disease Obesity (BMI 30-39.9) Benign essential hypertension Pure hypercholesterolemia Diabetes mellitus Pulmonary emboli Chondrosarcoma Hyperlipidemia Chronic restrictive lung disease COPD (chronic obstructive pulmonary disease) Asthma Surgical History (Updated 05/03/24 @ 13:57 by Bon Arvizu MD) History of esophagogastroduodenoscopy (EGD) H/O colonoscopy History of inguinal hernia repair Hx of exploratory thoracotomy H/O tooth extraction Diagnostics Vital Signs (24Hr): Vital Signs - 24 hr 05/18/24 19:56 05/19/24 08:02 05/19/24 09:51 Temperature 97.5 F 96.9 F Pulse Rate 73 61 61 Respiratory Rate 16 Blood Pressure 123/58 L 114/65 114/65 Pulse Oximetry 95 95 Oxygen Delivery Method Room Air Room Air BMI result Body Mass Index 45.7 Labs 05/17/24 15:21 05/17/24 15:21 Labs: Laboratory Results - last 48 hr 05/17/24 05/17/24 05/17/24 14:28 15:05 15:21 WBC 7.9 RBC 5.09 Hgb 14.9 Hct 45.5 MCV 89.4 MCH 29.3 MCHC 32.7 RDW 14.4 Plt Count 236 MPV 9.9 Immature Gran % (Auto) 0.4 Neut % (Auto) 74.5 H Lymph % (Auto) 16.9 L [place] % (Auto) 5.3 Eos % (Auto) 2.5 Baso % (Auto) 0.4 Lymph # (Auto) 1.3 [place] # (Auto) 0.4 Eos # (Auto) 0.2 Baso # (Auto) 0.0 Abs Immat Gran (auto) 0.03 Absolute Neuts (auto) 5.9 Absolute Nucleated RBC 0.000 Nucleated RBC % (auto) 0.0 Hold Purple Top SEE NOTE Sodium 143 Potassium 4.0 Chloride 106 Carbon Dioxide 29 Anion Gap 12 BUN 7 L Creatinine 1.21 Estim Creat Clear Calc 72.9 Estimated GFR > 60 POC Glucose Random Glucose 125 H Estimat Average Glucose Hemoglobin A1c % Calcium 9.3 D Magnesium 1.6 Total Bilirubin 0.6 Direct Bilirubin AST 17 ALT 11 Alkaline Phosphatase 129 H Ammonia Cancelled Total Protein 7.7 Albumin 4.0 Triglycerides Cholesterol LDL Cholesterol, Calc HDL Cholesterol Vitamin B12 Folate TSH Free T4 Urine Color Yellow Urine Appearance Clear Urine pH 5.5 Ur Specific Max 1.020 Urine Protein Trace Urine Glucose (UA) Negative Urine Ketones Negative Urine Blood Moderate (2+) H Urine Nitrite Negative Ur Leukocyte Esterase Negative Urine RBC 11-20 H Urine WBC 0-5 Ur Squamous Epith Cells 0-2 Urine Bacteria None Seen Hyaline Casts 3-5 Urine Opiates Screen Not Detected Ur Buprenorphine Scrn Not Detected Ur Oxycodone Screen Not Detected Urine Methadone Screen Not Detected Urine Fentanyl Screen Not Detected Ur Barbiturates Screen Not Detected Ur Phencyclidine Scrn Not Detected Ur Amphetamines Screen Not Detected U Benzodiazepines Scrn Not Detected Urine Cocaine Screen Not Detected U Marijuana (THC) Screen Not Detected Ethyl Alcohol < 10 05/17/24 05/18/24 05/18/24 21:26 12:24 17:23 WBC RBC Hgb Hct MCV MCH MCHC RDW Plt Count MPV Immature Gran % (Auto) Neut % (Auto) Lymph % (Auto) [place] % (Auto) Eos % (Auto) Baso % (Auto) Lymph # (Auto) [place] # (Auto) Eos # (Auto) Baso # (Auto) Abs Immat Gran (auto) Absolute Neuts (auto) Absolute Nucleated RBC Nucleated RBC % (auto) Hold Purple Top Sodium Potassium Chloride Carbon Dioxide Anion Gap BUN Creatinine Estim Creat Clear Calc Estimated GFR POC Glucose 96 152 H Random Glucose Estimat Average Glucose Hemoglobin A1c % Calcium Magnesium Total Bilirubin Direct Bilirubin AST ALT Alkaline Phosphatase Ammonia 59 H Total Protein Albumin Triglycerides Cholesterol LDL Cholesterol, Calc HDL Cholesterol Vitamin B12 Folate TSH Free T4 Urine Color Urine Appearance Urine pH Ur Specific Max Urine Protein Urine Glucose (UA) Urine Ketones Urine Blood Urine Nitrite Ur Leukocyte Esterase Urine RBC Urine WBC Ur Squamous Epith Cells Urine Bacteria Hyaline Casts Urine Opiates Screen Ur Buprenorphine Scrn Ur Oxycodone Screen Urine Methadone Screen Urine Fentanyl Screen Ur Barbiturates Screen Ur Phencyclidine Scrn Ur Amphetamines Screen U Benzodiazepines Scrn Urine Cocaine Screen U Marijuana (THC) Screen Ethyl Alcohol 05/18/24 05/19/24 05/19/24 22:27 08:17 08:30 WBC RBC Hgb Hct MCV MCH MCHC RDW Plt Count MPV Immature Gran % (Auto) Neut % (Auto) Lymph % (Auto) [place] % (Auto) Eos % (Auto) Baso % (Auto) Lymph # (Auto) [place] # (Auto) Eos # (Auto) Baso # (Auto) Abs Immat Gran (auto) Absolute Neuts (auto) Absolute Nucleated RBC Nucleated RBC % (auto) Hold Purple Top Sodium Potassium Chloride Carbon Dioxide Anion Gap BUN Creatinine Estim Creat Clear Calc Estimated GFR POC Glucose 102 111 Random Glucose Estimat Average Glucose 126 Hemoglobin A1c % 6.0 Calcium Magnesium 1.8 Total Bilirubin 0.6 Direct Bilirubin 0.2 AST 22 ALT 10 Alkaline Phosphatase 109 Ammonia 71 H Total Protein 7.4 Albumin 3.9 Triglycerides 249 H Cholesterol 170 LDL Cholesterol, Calc 87 HDL Cholesterol 34 L Vitamin B12 158 L Folate 4.4 TSH 1.49 Free T4 0.96 Urine Color Urine Appearance Urine pH Ur Specific Max Urine Protein Urine Glucose (UA) Urine Ketones Urine Blood Urine Nitrite Ur Leukocyte Esterase Urine RBC Urine WBC Ur Squamous Epith Cells Urine Bacteria Hyaline Casts Urine Opiates Screen Ur Buprenorphine Scrn Ur Oxycodone Screen Urine Methadone Screen Urine Fentanyl Screen Ur Barbiturates Screen Ur Phencyclidine Scrn Ur Amphetamines Screen U Benzodiazepines Scrn Urine Cocaine Screen U Marijuana (THC) Screen Ethyl Alcohol Meds/Allergies Meds Home Medications ?Medication ?Instructions ?Recorded ?Confirmed ?Type insulin glargine-yfgn 100 unit/mL 20 unit subcut DAILY 05/17/24 05/17/24 History (3 mL) subcutaneous pen Allergies Allergies Allergy/AdvReac Type Severity Reaction Status Date / Time pollen extracts [POLLEN] Allergy Mild RUNNY NOSE Verified 05/17/24 14:27 cat dander [CATS] Allergy Unknown UNKNOWN Verified 05/17/24 14:27 dog dander [DOGS] Allergy Unknown UNKNOWN Verified 05/17/24 14:27 mold [MOLD] Allergy Unknown UNKNOWN Verified 05/17/24 14:27 Assessment & Plan Statement Statement: I have reviewed the history and physical and performed a pertinent examination on my patient. No changes have occurred unless specified. If the History and Physical was not performed prior to admission, the Hospitalist's service will be consulted for completing the admission physical. Time Spent With Patient Time: Total time managing care of this patient today ____ minutes.
--- NOTE | 2024-05-19 14:32 | HO.PSYADMNOT ---
HPI Date of Service: 05/19/24 Chief Complaint: Depression Sources of Information: patient interviewed, chart reviewed and crisis/core team assessment reviewed HPI Subjective Notes: [place] Warning and Conditional Voluntary Healthcare Proxy: No Guardianship: No Medical Problems Affecting Mental Status: No Narrative: Seen 1130am 53 yo male, self presenting to ER with reports of SI with plan to stab himself, auditory and visual perceptual alterations. Reports a decrease in sleep. Pt reports this is the first time he has experienced perceptual alterations . He reports PAMELA diagnosed 2010 with treatment noncompliance and being frightened by taking action to self harm for the first time this past Thursday. Reports stress to get a job by brother and he has been having difficulty as he last worked in 2014. Past Psychiatric History: IP: No hx OP: PCP prescribes-Dr. Arvizu Trials: Lexapro, Wellbutrin Pt reports a history of issues with anger mgt. Medical Evaluation Reviewed: Yes [facility] Medical History (Updated 05/20/24 @ 16:45 by Kaitlyn Long APRN) Recurrent major depression Allergic rhinitis Insomnia Palpitations Vitamin D deficiency Chronic kidney disease, stage III (moderate) GERD without esophagitis Restrictive lung disease Obesity (BMI 30-39.9) Benign essential hypertension Pure hypercholesterolemia Diabetes mellitus Pulmonary emboli Chondrosarcoma Hyperlipidemia Chronic restrictive lung disease COPD (chronic obstructive pulmonary disease) Asthma Surgical History (Updated 05/03/24 @ 13:57 by Bon Arvizu MD) History of esophagogastroduodenoscopy (EGD) H/O colonoscopy History of inguinal hernia repair Hx of exploratory thoracotomy H/O tooth extraction Family History: denies Social History: Born and raised in [place] by both parents. Mother in 2000 and father in 2008 Has a twin brother and two older brothers High school graduate Never , no children Substance History: Denies. Last drink 2000. Toxicology negative Trauma History: medical- tumor L lung 2008. Diagnostics Vital Signs (24Hr): Vital Signs - 24 hr 05/18/24 19:56 05/19/24 08:02 05/19/24 09:51 Temperature 97.5 F 96.9 F Pulse Rate 73 61 61 Respiratory Rate 16 Blood Pressure 123/58 L 114/65 114/65 Pulse Oximetry 95 95 Oxygen Delivery Method Room Air Room Air BMI result Body Mass Index 45.7 Labs 05/17/24 15:21 05/17/24 15:21 Labs: Laboratory Results - last 48 hr 05/17/24 05/17/24 05/17/24 14:28 15:05 15:21 WBC 7.9 RBC 5.09 Hgb 14.9 Hct 45.5 MCV 89.4 MCH 29.3 MCHC 32.7 RDW 14.4 Plt Count 236 MPV 9.9 Immature Gran % (Auto) 0.4 Neut % (Auto) 74.5 H Lymph % (Auto) 16.9 L [place] % (Auto) 5.3 Eos % (Auto) 2.5 Baso % (Auto) 0.4 Lymph # (Auto) 1.3 [place] # (Auto) 0.4 Eos # (Auto) 0.2 Baso # (Auto) 0.0 Abs Immat Gran (auto) 0.03 Absolute Neuts (auto) 5.9 Absolute Nucleated RBC 0.000 Nucleated RBC % (auto) 0.0 Hold Purple Top SEE NOTE Sodium 143 Potassium 4.0 Chloride 106 Carbon Dioxide 29 Anion Gap 12 BUN 7 L Creatinine 1.21 Estim Creat Clear Calc 72.9 Estimated GFR > 60 POC Glucose Random Glucose 125 H Estimat Average Glucose Hemoglobin A1c % Calcium 9.3 D Magnesium 1.6 Total Bilirubin 0.6 Direct Bilirubin AST 17 ALT 11 Alkaline Phosphatase 129 H Ammonia Cancelled Total Protein 7.7 Albumin 4.0 Triglycerides Cholesterol LDL Cholesterol, Calc HDL Cholesterol Vitamin B12 Folate TSH Free T4 Urine Color Yellow Urine Appearance Clear Urine pH 5.5 Ur Specific [place] 1.020 Urine Protein Trace Urine Glucose (UA) Negative Urine Ketones Negative Urine Blood Moderate (2+) H Urine Nitrite Negative Ur Leukocyte Esterase Negative Urine RBC 11-20 H Urine WBC 0-5 Ur Squamous Epith Cells 0-2 Urine Bacteria None Seen Hyaline Casts 3-5 Urine Opiates Screen Not Detected Ur Buprenorphine Scrn Not Detected Ur Oxycodone Screen Not Detected Urine Methadone Screen Not Detected Urine Fentanyl Screen Not Detected Ur Barbiturates Screen Not Detected Ur Phencyclidine Scrn Not Detected Ur Amphetamines Screen Not Detected U Benzodiazepines Scrn Not Detected Urine Cocaine Screen Not Detected U Marijuana (THC) Screen Not Detected Ethyl Alcohol < 10 05/17/24 05/18/24 05/18/24 21:26 12:24 17:23 WBC RBC Hgb Hct MCV MCH MCHC RDW Plt Count MPV Immature Gran % (Auto) Neut % (Auto) Lymph % (Auto) [place] % (Auto) Eos % (Auto) Baso % (Auto) Lymph # (Auto) [place] # (Auto) Eos # (Auto) Baso # (Auto) Abs Immat Gran (auto) Absolute Neuts (auto) Absolute Nucleated RBC Nucleated RBC % (auto) Hold Purple Top Sodium Potassium Chloride Carbon Dioxide Anion Gap BUN Creatinine Estim Creat Clear Calc Estimated GFR POC Glucose 96 152 H Random Glucose Estimat Average Glucose Hemoglobin A1c % Calcium Magnesium Total Bilirubin Direct Bilirubin AST ALT Alkaline Phosphatase Ammonia 59 H Total Protein Albumin Triglycerides Cholesterol LDL Cholesterol, Calc HDL Cholesterol Vitamin B12 Folate TSH Free T4 Urine Color Urine Appearance Urine pH Ur Specific [place] Urine Protein Urine Glucose (UA) Urine Ketones Urine Blood Urine Nitrite Ur Leukocyte Esterase Urine RBC Urine WBC Ur Squamous Epith Cells Urine Bacteria Hyaline Casts Urine Opiates Screen Ur Buprenorphine Scrn Ur Oxycodone Screen Urine Methadone Screen Urine Fentanyl Screen Ur Barbiturates Screen Ur Phencyclidine Scrn Ur Amphetamines Screen U Benzodiazepines Scrn Urine Cocaine Screen U Marijuana (THC) Screen Ethyl Alcohol 05/18/24 05/19/24 05/19/24 22:27 08:17 08:30 WBC RBC Hgb Hct MCV MCH MCHC RDW Plt Count MPV Immature Gran % (Auto) Neut % (Auto) Lymph % (Auto) [place] % (Auto) Eos % (Auto) Baso % (Auto) Lymph # (Auto) [place] # (Auto) Eos # (Auto) Baso # (Auto) Abs Immat Gran (auto) Absolute Neuts (auto) Absolute Nucleated RBC Nucleated RBC % (auto) Hold Purple Top Sodium Potassium Chloride Carbon Dioxide Anion Gap BUN Creatinine Estim Creat Clear Calc Estimated GFR POC Glucose 102 111 Random Glucose Estimat Average Glucose 126 Hemoglobin A1c % 6.0 Calcium Magnesium 1.8 Total Bilirubin 0.6 Direct Bilirubin 0.2 AST 22 ALT 10 Alkaline Phosphatase 109 Ammonia 71 H Total Protein 7.4 Albumin 3.9 Triglycerides 249 H Cholesterol 170 LDL Cholesterol, Calc 87 HDL Cholesterol 34 L Vitamin B12 158 L Folate 4.4 TSH 1.49 Free T4 0.96 Urine Color Urine Appearance Urine pH Ur Specific [place] Urine Protein Urine Glucose (UA) Urine Ketones Urine Blood Urine Nitrite Ur Leukocyte Esterase Urine RBC Urine WBC Ur Squamous Epith Cells Urine Bacteria Hyaline Casts Urine Opiates Screen Ur Buprenorphine Scrn Ur Oxycodone Screen Urine Methadone Screen Urine Fentanyl Screen Ur Barbiturates Screen Ur Phencyclidine Scrn Ur Amphetamines Screen U Benzodiazepines Scrn Urine Cocaine Screen U Marijuana (THC) Screen Ethyl Alcohol Meds/Allergies Meds Home Medications ?Medication ?Instructions ?Recorded ?Confirmed ?Type insulin glargine-yfgn 100 unit/mL 20 unit subcut DAILY 05/17/24 05/17/24 History (3 mL) subcutaneous pen Allergies Allergies Allergy/AdvReac Type Severity Reaction Status Date / Time pollen extracts [POLLEN] Allergy Mild RUNNY NOSE Verified 05/17/24 14:27 cat dander [CATS] Allergy Unknown UNKNOWN Verified 05/17/24 14:27 dog dander [DOGS] Allergy Unknown UNKNOWN Verified 05/17/24 14:27 mold [MOLD] Allergy Unknown UNKNOWN Verified 05/17/24 14:27 Mental Status Exam Mental Status Exam Patient Appearance: Appropriate Patient Orientation: Person, Place, Time and Situation Level of Consciousness: Alert Patient Behavior: Appropriate, Talkative, Cooperative and Good Eye Contact Mood Description: Depressed and Anxious Affect Description: Anxious Patient Cognition Impaired: No Ability to Follow Directions: Good Speech Pattern: Spontaneous Speech Memory Description: Intact Hallucinations: Auditory and Visual Thought Process: Rumination Thought Content: positive for Perseveration and positive for Suicidal Ideation Depressive Symptoms: Thoughts of /Suicide and Low Self Esteem Judgement: Fair Assessment & Plan Assessment & Plan (1) Suicidal ideation: Status: Acute Code(s): R45.851 - Suicidal ideations (2) Auditory hallucinations: Status: Acute Code(s): R44.0 - Auditory hallucinations (3) Recurrent major depression: Status: Acute Code(s): F33.9 - Major depressive disorder, recurrent, unspecified (4) Visual hallucination: Status: Acute Code(s): R44.1 - Visual hallucinations Plan Recurrent major depression, auditory and visual perceptual alterations, new onset SI-stress of attempting to find a job. Plan: Admit, CV, 15 minute checks. CPAP trial tonight-untreated PAMELA, ? contributing to sx Diagnostics with review Med adjustments as needed Collateral contact Patient educated on: therapeutic strategies Reason for continued inpatient stay Substantial Risk for: rapid decompensation and med/psych decompensation Statement Statement: I have reviewed the history and physical and performed a pertinent examination on my patient. No changes have occurred unless specified. If the History and Physical was not performed prior to admission, the Hospitalist's service will be consulted for completing the admission physical. Time Spent With Patient Time: Total time managing care of this patient today ____ minutes.
[2024-05-19 17:59] VITALS: BMI 46.5
[2024-05-19 18:42] LABS: Glucose, Whole Blood 114 mg/dL (60-115)
[2024-05-19 20:00] VITALS: BP 119/63; PULSE 72; TEMP 36.4; O2SAT 95
[2024-05-19] MEDS: Tamsulosin HCL 0.4 MG CAPSULE PO (21:55)
[2024-05-20] MEDS: Albuterol Sulfate 90 MCG 8 GM INHALER 2 PUFF INHALE ×3 (02:12→17:55)
[2024-05-20 08:00] VITALS: BP 119/60; PULSE 65; RESP 16; TEMP 36.1; O2SAT 94
[2024-05-20 08:12] LABS: Glucose, Whole Blood 93 mg/dL (60-115)
[2024-05-20] MEDS: Omeprazole 40 MG CAPSULE.DR PO (08:27)
[2024-05-20] MEDS: metFORMIN HCl 1,000 MG TABLET 1000 MG PO ×2 (08:28→21:26)
[2024-05-20] MEDS: Ferrous Sulfate 324 MG TABLET.DR PO (08:28)
[2024-05-20] MEDS: Atorvastatin Calcium 40 MG TABLET PO (08:28)
[2024-05-20] MEDS: atenoloL 25 MG TABLET PO (08:28)
[2024-05-20] MEDS: Escitalopram Oxalate 20 MG TABLET PO (08:28)
[2024-05-20] MEDS: buPROPion HCl XL 150 MG TAB.ER.24H PO (08:28)
[2024-05-20] MEDS: Insulin Glargine,Hum.rec.anlog 100 UNIT/ML 10 ML VIAL 20 UNIT SUBCUT (08:37)
--- NOTE | 2024-05-20 09:53 | HO.PSYCHPN ---
Subjective Subjective Date of Service: 05/20/24 Reason For Visit: Depression Subjective Notes: Conditional Voluntary Healthcare Proxy: No Guardianship: No Medical Problems Affecting Mental Status: No Interim History: Jasbir reports feeling better, I am listening and taking it in. Reports no AH, +VH-shadows, outlines of shadows. Tolerated CPAP, ready to try some medication for visions/voices. Ammonia high, B12 low in diagnostic review. Medication Compliance: Yes Side effects from medications: No Attending Groups: Yes Review of Systems Acute medical concerns: No Medical Review of Systems: unchanged Review of Systems Review of Systems Yes all other systems are reviewed and are negative Mental Status Exam Mental Status Exam Patient Appearance: Appropriate Patient Orientation: Person, Place, Time and Situation Level of Consciousness: Alert Patient Behavior: Appropriate, Talkative, Cooperative and Good Eye Contact Mood Description: Depressed and Anxious Affect Description: Anxious Patient Cognition Impaired: No Ability to Follow Directions: Good Speech Pattern: Spontaneous Speech Memory Description: Intact Hallucinations: Auditory and Visual Thought Process: Rumination Thought Content: positive for Perseveration Depressive Symptoms: Low Self Esteem Judgement: Fair Diagnostics Vital Signs (24Hr): Vital Signs - 24 hr 05/19/24 20:00 05/20/24 08:00 Temperature 97.5 F 96.9 F Pulse Rate 72 65 Respiratory Rate 16 Blood Pressure 119/63 119/60 Pulse Oximetry 95 94 Oxygen Delivery Method Room Air Room Air BMI result Body Mass Index 46.5 Labs 05/17/24 15:21 05/17/24 15:21 Labs: Laboratory Results - last 48 hr 05/18/24 05/18/24 05/18/24 12:24 17:23 22:27 POC Glucose 96 152 H 102 Estimat Average Glucose Hemoglobin A1c % Magnesium Total Bilirubin Direct Bilirubin AST ALT Alkaline Phosphatase Ammonia Total Protein Albumin Triglycerides Cholesterol LDL Cholesterol, Calc HDL Cholesterol Vitamin B12 Folate TSH Free T4 05/19/24 05/19/24 05/19/24 08:17 08:30 18:38 POC Glucose 111 114 Estimat Average Glucose 126 Hemoglobin A1c % 6.0 Magnesium 1.8 Total Bilirubin 0.6 Direct Bilirubin 0.2 AST 22 ALT 10 Alkaline Phosphatase 109 Ammonia 71 H Total Protein 7.4 Albumin 3.9 Triglycerides 249 H Cholesterol 170 LDL Cholesterol, Calc 87 HDL Cholesterol 34 L Vitamin B12 158 L Folate 4.4 TSH 1.49 Free T4 0.96 05/20/24 08:02 POC Glucose 93 Estimat Average Glucose Hemoglobin A1c % Magnesium Total Bilirubin Direct Bilirubin AST ALT Alkaline Phosphatase Ammonia Total Protein Albumin Triglycerides Cholesterol LDL Cholesterol, Calc HDL Cholesterol Vitamin B12 Folate TSH Free T4 Medications Medications Current Medications Acetaminophen (Acetaminophen 325 Mg Tablet) 650 mg PO Q6H PRN PRN Reason: Headache/Pain Mild Scale (1-3) Al Hydroxide/Mg Hydroxide (Magnesium Hydrox/Alum Hydrox 30 Ml Oral.Susp) 30 ml PO Q6H PRN PRN Reason: Heartburn/Nausea Albuterol Sulfate (Albuterol Sulfate 90 Mcg 8 Gm Inhaler) 2 puff INHALE RQ4H PRN PRN Reason: Shortness of Breath Last Admin: 05/20/24 02:12 Dose: 2 puff Atenolol (Atenolol 25 Mg Tablet) 25 mg PO DAILY [facility]; Protocol Last Admin: 05/20/24 08:28 Dose: 25 mg Atorvastatin Calcium (Atorvastatin Calcium 40 Mg Tablet) 40 mg PO DAILY [facility] Last Admin: 05/20/24 08:28 Dose: 40 mg Bupropion HCl (Bupropion Hcl Xl 150 Mg Tab.Er.24h) 150 mg PO DAILY [facility] Last Admin: 05/20/24 08:28 Dose: 150 mg Escitalopram Oxalate (Escitalopram Oxalate 20 Mg Tablet) 20 mg PO DAILY [facility] Last Admin: 05/20/24 08:28 Dose: 20 mg Ferrous Sulfate (Ferrous Sulfate 324 Mg Tablet.Dr) 324 mg PO DAILY [facility] Last Admin: 05/20/24 08:28 Dose: 324 mg Hydroxyzine HCl (Hydroxyzine Hcl 25 Mg Tablet) 25 mg PO Q6H PRN PRN Reason: Anxiety Insulin Glargine (Insulin Glargine,Hum.Rec.Anlog 100 Unit/Ml 10 Ml Vial) 20 unit SUBCUT DAILY [facility] Last Admin: 05/20/24 08:37 Dose: 20 unit Magnesium Hydroxide (Milk Of Magnesia 30 Ml Oral.Susp) 30 ml PO DAILY PRN PRN Reason: Constipation Meclizine HCl (Meclizine Hcl 25 Mg Tablet) 25 mg PO TID PRN PRN Reason: dizziness Metformin HCl (Metformin Hcl 1,000 Mg Tablet) 1,000 mg PO BID [facility] Last Admin: 05/20/24 08:28 Dose: 1,000 mg Nicotine (Nicotine 21 Mg Patch.Td24) 21 mg TRANSDERMA DAILY PRN PRN Reason: nicotine cravings Nicotine Polacrilex (Nicotine Polacrilex 2 Mg Gum) 4 mg BUCCAL Q2H PRN PRN Reason: Nicotine Cravings Omeprazole (Omeprazole 40 Mg Capsule.Dr) 40 mg PO DAILY@0630 [facility] Last Admin: 05/20/24 08:27 Dose: 40 mg Tamsulosin HCl (Tamsulosin Hcl 0.4 Mg Capsule) 0.4 mg PO BEDTIME [facility] Last Admin: 05/19/24 21:55 Dose: 0.4 mg Trazodone HCl (Trazodone Hcl 50 Mg Tablet) 50 mg PO BEDTIME PRN PRN Reason: sleep Vitamin D (Cholecalciferol (Vitamin D3) 25 Mcg Tablet) 50 mcg PO DAILY [facility] Last Admin: 05/20/24 08:30 Dose: Not Given Allergies Allergies Allergy/AdvReac Type Severity Reaction Status Date / Time pollen extracts [POLLEN] Allergy Mild RUNNY NOSE Verified 05/17/24 14:27 cat dander [CATS] Allergy Unknown UNKNOWN Verified 05/17/24 14:27 dog dander [DOGS] Allergy Unknown UNKNOWN Verified 05/17/24 14:27 mold [MOLD] Allergy Unknown UNKNOWN Verified 05/17/24 14:27 Assessment & Plan Assessment & Plan (1) Visual hallucination: Status: Acute Code(s): R44.1 - Visual hallucinations (2) Recurrent major depression: Status: Acute Code(s): F33.9 - Major depressive disorder, recurrent, unspecified (3) Suicidal ideation: Status: Acute Code(s): R45.851 - Suicidal ideations (4) Auditory hallucinations: Status: Acute Code(s): R44.0 - Auditory hallucinations Plan 05/20/24: Thiamine 100 mg daily Lactulose 20gm x 1 Ammonia repeat on 05/23/24 Seroquel 12.5 mg tid Reason for continued inpatient stay Substantial Risk for: rapid decompensation and med/psych decompensation Time Spent With Patient Time: Total time managing care of this patient today ____ minutes.
[2024-05-20] MEDS: Lactulose 20 GM/30 ML SOLUTION PO (17:09)
[2024-05-20] MEDS: Thiamine HCL 100 MG TABLET PO (17:20)
[2024-05-20 20:00] VITALS: BP 127/68; PULSE 77; RESP 18; TEMP 36.5; O2SAT 97
[2024-05-20] MEDS: QUEtiapine Fumarate 25 MG TABLET 12.5 MG PO (21:24)
[2024-05-20] MEDS: Tamsulosin HCL 0.4 MG CAPSULE PO (21:26)
[2024-05-20] MEDS: traZODone HCL 50 MG TABLET PO (21:26)
[2024-05-20] MEDS: Mineral Oil/Petrolatum,White 106 GM Tube 1 APPL TOPICAL (21:42)
[2024-05-20] MEDS: hydrOXYzine HCL 25 MG TABLET PO (21:42)
[2024-05-20 23:18] LABS: Glucose, Whole Blood 149 mg/dL (60-115)
[2024-05-21 07:56] LABS: Glucose, Whole Blood 82 mg/dL (60-115)
[2024-05-21 08:00] VITALS: BP 109/83; PULSE 58; RESP 16; TEMP 35.9; O2SAT 94
[2024-05-21] MEDS: Insulin Glargine,Hum.rec.anlog 100 UNIT/ML 10 ML VIAL 20 UNIT SUBCUT (08:24)
[2024-05-21] MEDS: Ferrous Sulfate 324 MG TABLET.DR PO (08:25)
[2024-05-21] MEDS: Atorvastatin Calcium 40 MG TABLET PO (08:25)
[2024-05-21] MEDS: Cholecalciferol (Vitamin D3) 25 MCG TABLET 50 MCG PO (08:25)
[2024-05-21] MEDS: metFORMIN HCl 1,000 MG TABLET 1000 MG PO ×2 (08:25→21:05)
[2024-05-21] MEDS: Thiamine HCL 100 MG TABLET PO (08:25)
[2024-05-21 08:26] VITALS: PULSE 70
[2024-05-21] MEDS: buPROPion HCl XL 150 MG TAB.ER.24H PO (08:26)
[2024-05-21] MEDS: Escitalopram Oxalate 20 MG TABLET PO (08:26)
[2024-05-21] MEDS: Omeprazole 40 MG CAPSULE.DR PO (08:26)
[2024-05-21] MEDS: atenoloL 25 MG TABLET PO (08:26)
[2024-05-21] MEDS: QUEtiapine Fumarate 25 MG TABLET 12.5 MG PO ×3 (08:27→21:05)
[2024-05-21] MEDS: Mineral Oil/Petrolatum,White 106 GM Tube 1 APPL TOPICAL ×2 (08:28→21:08)
[2024-05-21] MEDS: Albuterol Sulfate 90 MCG 8 GM INHALER 2 PUFF INHALE ×2 (11:25→18:22)
--- NOTE | 2024-05-21 18:46 | P.PNPSI_ITS ---
Subjective Subjective Date of Service: 05/21/24 Reason For Visit: Depression Interim History: Met with patient; discussed with team Patient reports that he is feeling little better. Says AH is almost gone. He did have an intrusive thought about hurting himself however this was ego- dystonic and he has no actual feelings or desire for suicide. He came out of the room to be around other people because of the thought. Oil Burner talked somewhat about OCD however patient said that he has never had intrusive thoughts before 2 weeks ago. Since patient is starting to feel better and AH relieved, patient agreed to remain on current medication regimen for now Later patient showed injury from a year ago left torso under left pectoral muscle where he fell was punctured by a nail; said it irritates him and he has been itching it which has caused some scarring. Patient asked for some Tegaderm to help resist itching Mental Status Exam Mental Status Exam Narrative: Pt is alert and oriented; behavior is cooperative, friendly and calm; patient is not in distress; dressed in hospital attire with unkempt hair, marginal hygiene; mood is described as little better and affect congruent; eye contact appropriate; Speech is normal rate, volume and prosody and not pressured; some psychomotor retardation present; thought process is organized and goal directed; Thought content is on with intrusive thought of SI, tx and dealing with intrusive thoughts/AH; otherwise pertinent to relevant topics and without any delusional content, paranoid ideations or grandiosity; denies any SI/HI. Says AH is much reduced Patients insight and judgment appear impaired but improving Diagnostics Vital Signs (24Hr): Vital Signs - 24 hr 05/20/24 20:00 05/21/24 08:00 05/21/24 08:26 Temperature 97.7 F 96.6 F L Pulse Rate 77 58 70 Respiratory Rate 18 16 Blood Pressure 127/68 109/83 Pulse Oximetry 97 94 Oxygen Delivery Method Room Air Room Air BMI result Body Mass Index 46.5 Labs 05/17/24 15:21 05/17/24 15:21 Labs: Laboratory Results - last 48 hr 05/20/24 05/20/24 05/21/24 08:02 21:24 07:53 POC Glucose 93 149 H 82 Medications Medications Current Medications Acetaminophen (Acetaminophen 325 Mg Tablet) 650 mg PO Q6H PRN PRN Reason: Headache/Pain Mild Scale (1-3) Al Hydroxide/Mg Hydroxide (Magnesium Hydrox/Alum Hydrox 30 Ml Oral.Susp) 30 ml PO Q6H PRN PRN Reason: Heartburn/Nausea Albuterol Sulfate (Albuterol Sulfate 90 Mcg 8 Gm Inhaler) 2 puff INHALE RQ4H PRN PRN Reason: Shortness of Breath Last Admin: 05/21/24 18:22 Dose: 2 puff Atenolol (Atenolol 25 Mg Tablet) 25 mg PO DAILY [facility]; Protocol Last Admin: 05/21/24 08:26 Dose: 25 mg Atorvastatin Calcium (Atorvastatin Calcium 40 Mg Tablet) 40 mg PO DAILY [facility] Last Admin: 05/21/24 08:25 Dose: 40 mg Bupropion HCl (Bupropion Hcl Xl 150 Mg Tab.Er.24h) 150 mg PO DAILY [facility] Last Admin: 05/21/24 08:26 Dose: 150 mg Escitalopram Oxalate (Escitalopram Oxalate 20 Mg Tablet) 20 mg PO DAILY [facility] Last Admin: 05/21/24 08:26 Dose: 20 mg Ferrous Sulfate (Ferrous Sulfate 324 Mg Tablet.) 324 mg PO DAILY [facility] Last Admin: 05/21/24 08:25 Dose: 324 mg Hydroxyzine HCl (Hydroxyzine Hcl 25 Mg Tablet) 25 mg PO Q6H PRN PRN Reason: Anxiety Last Admin: 05/20/24 21:42 Dose: 25 mg Insulin Glargine (Insulin Glargine,Hum.Rec.Anlog 100 Unit/Ml 10 Ml Vial) 20 unit SUBCUT DAILY [facility] Last Admin: 05/21/24 08:24 Dose: 20 unit Magnesium Hydroxide (Milk Of Magnesia 30 Ml Oral.Susp) 30 ml PO DAILY PRN PRN Reason: Constipation Meclizine HCl (Meclizine Hcl 25 Mg Tablet) 25 mg PO TID PRN PRN Reason: dizziness Metformin HCl (Metformin Hcl 1,000 Mg Tablet) 1,000 mg PO BID [facility] Last Admin: 05/21/24 08:25 Dose: 1,000 mg Multi-Ingred Cream/Lotion/Oil/Oint (Mineral Oil/Petrolatum,White 106 Gm Tube) 1 appl TOPICAL TID [facility]; Protocol Last Admin: 05/21/24 14:34 Dose: Not Given Nicotine (Nicotine 21 Mg Patch.Td24) 21 mg TRANSDERMA DAILY PRN PRN Reason: nicotine cravings Nicotine Polacrilex (Nicotine Polacrilex 2 Mg Gum) 4 mg BUCCAL Q2H PRN PRN Reason: Nicotine Cravings Omeprazole (Omeprazole 40 Mg Capsule.Dr) 40 mg PO DAILY@0630 [facility] Last Admin: 05/21/24 08:26 Dose: 40 mg Quetiapine Fumarate (Quetiapine Fumarate 25 Mg Tablet) 12.5 mg PO TID [facility] Last Admin: 05/21/24 14:34 Dose: 12.5 mg Tamsulosin HCl (Tamsulosin Hcl 0.4 Mg Capsule) 0.4 mg PO BEDTIME [facility] Last Admin: 05/20/24 21:26 Dose: 0.4 mg Thiamine HCl (Thiamine Hcl 100 Mg Tablet) 100 mg PO DAILY [facility] Last Admin: 05/21/24 08:25 Dose: 100 mg Trazodone HCl (Trazodone Hcl 50 Mg Tablet) 50 mg PO BEDTIME PRN PRN Reason: sleep Last Admin: 05/20/24 21:26 Dose: 50 mg Vitamin D (Cholecalciferol (Vitamin D3) 25 Mcg Tablet) 50 mcg PO DAILY [facility] Last Admin: 05/21/24 08:25 Dose: 50 mcg Allergies Allergies Allergy/AdvReac Type Severity Reaction Status Date / Time pollen extracts [POLLEN] Allergy Mild RUNNY NOSE Verified 05/17/24 14:27 cat dander [CATS] Allergy Unknown UNKNOWN Verified 05/17/24 14:27 dog dander [DOGS] Allergy Unknown UNKNOWN Verified 05/17/24 14:27 mold [MOLD] Allergy Unknown UNKNOWN Verified 05/17/24 14:27 Assessment & Plan Assessment & Plan (1) Visual hallucination: Status: Acute Code(s): R44.1 - Visual hallucinations (2) Recurrent major depression: Status: Acute Code(s): F33.9 - Major depressive disorder, recurrent, unspecified (3) Suicidal ideation: Status: Acute Code(s): R45.851 - Suicidal ideations (4) Auditory hallucinations: Status: Acute Code(s): R44.0 - Auditory hallucinations Plan 05/20/24: Thiamine 100 mg daily Lactulose 20gm x 1 Ammonia repeat on 05/23/24 Seroquel 12.5 mg tid 05/21 Patient reports that he is feeling little better. Says AH is almost gone. He did have an intrusive thought about hurting himself however this was ego- dystonic and he has no actual feelings or desire for suicide. He came out of the room to be around other people because of the thought. Oil Burner talked somewhat about OCD however patient said that he has never had intrusive thoughts before 2 weeks ago. Since patient is starting to feel better and AH relieved, patient agreed to remain on current medication regimen for now --Later patient showed injury from a year ago left torso under left pectoral muscle where he fell was punctured by a nail; said it irritates him and he has been itching it which has caused some scarring. Patient asked for some Tegaderm to help resist itching Patient educated on: diagnosis, medication risk/benefits and medical condition Informed Consent: understands Reason for continued inpatient stay Substantial Risk for: rapid decompensation Time Spent With Patient Time: Total time managing care of this patient today ____ minutes.
[2024-05-21 19:52] VITALS: BP 132/60; PULSE 83; RESP 18; TEMP 37.1; O2SAT 97
[2024-05-21 21:05] LABS: Glucose, Whole Blood 157 mg/dL (60-115)
[2024-05-21] MEDS: hydrOXYzine HCL 25 MG TABLET PO (21:05)
[2024-05-21] MEDS: traZODone HCL 50 MG TABLET PO (21:05)
[2024-05-21] MEDS: Tamsulosin HCL 0.4 MG CAPSULE PO (21:05)
[2024-05-22] MEDS: Albuterol Sulfate 90 MCG 8 GM INHALER 2 PUFF INHALE ×3 (07:32→19:40)
[2024-05-22 07:51] VITALS: BP 163/83; PULSE 82; TEMP 35.7; O2SAT 94
[2024-05-22 07:56] LABS: Glucose, Whole Blood 102 mg/dL (60-115)
[2024-05-22] MEDS: Escitalopram Oxalate 20 MG TABLET PO (08:32)
[2024-05-22] MEDS: Omeprazole 40 MG CAPSULE.DR PO (08:32)
[2024-05-22] MEDS: metFORMIN HCl 1,000 MG TABLET 1000 MG PO ×2 (08:32→22:57)
[2024-05-22] MEDS: atenoloL 25 MG TABLET PO (08:33)
[2024-05-22] MEDS: buPROPion HCl XL 150 MG TAB.ER.24H PO (08:33)
[2024-05-22] MEDS: Ferrous Sulfate 324 MG TABLET.DR PO (08:33)
[2024-05-22] MEDS: Thiamine HCL 100 MG TABLET PO (08:33)
[2024-05-22] MEDS: Cholecalciferol (Vitamin D3) 25 MCG TABLET 50 MCG PO (08:33)
[2024-05-22] MEDS: Atorvastatin Calcium 40 MG TABLET PO (08:33)
[2024-05-22] MEDS: Insulin Glargine,Hum.rec.anlog 100 UNIT/ML 10 ML VIAL 20 UNIT SUBCUT (08:34)
[2024-05-22] MEDS: Mineral Oil/Petrolatum,White 106 GM Tube 1 APPL TOPICAL ×3 (08:35→22:55)
[2024-05-22] MEDS: QUEtiapine Fumarate 25 MG TABLET 12.5 MG PO ×3 (08:36→22:57)
--- NOTE | 2024-05-22 15:41 | HO.PSYCHPN ---
Subjective Subjective Date of Service: 05/22/24 Reason For Visit: Depression Interim History: Met with patient; discussed with team Patient says that he is feeling definitely better today. AH has resolved and he has heard nothing today; says he is sleeping well. Patient agrees to remain on medication regimen as he feels it is helping Mental Status Exam Mental Status Exam Narrative: Pt is alert and oriented; behavior is cooperative, friendly and calm; patient is not in distress; dressed in hospital attire with unkempt hair, marginal hygiene; mood is described as better and affect congruent little brighter; eye contact appropriate; Speech is normal rate, volume and prosody and not pressured; no psychomotor retardation present; thought process is organized and goal directed; Thought content is on tx; no intrusive thoughts; pertinent to relevant topics and without any delusional content, paranoid ideations or grandiosity; denies any SI/HI. No AH today Patients insight and judgment appear fair Diagnostics Vital Signs (24Hr): Vital Signs - 24 hr 05/21/24 19:52 05/22/24 07:51 Temperature 98.7 F 96.2 F L Pulse Rate 83 82 Respiratory Rate 18 Blood Pressure 132/60 163/83 H Pulse Oximetry 97 94 Oxygen Delivery Method Room Air Room Air BMI result Body Mass Index 46.5 Labs 05/17/24 15:21 05/17/24 15:21 Labs: Laboratory Results - last 48 hr 05/20/24 05/21/24 05/21/24 21:24 07:53 20:54 POC Glucose 149 H 82 157 H 05/22/24 07:51 POC Glucose 102 Medications Medications Current Medications Acetaminophen (Acetaminophen 325 Mg Tablet) 650 mg PO Q6H PRN PRN Reason: Headache/Pain Mild Scale (1-3) Al Hydroxide/Mg Hydroxide (Magnesium Hydrox/Alum Hydrox 30 Ml Oral.Susp) 30 ml PO Q6H PRN PRN Reason: Heartburn/Nausea Albuterol Sulfate (Albuterol Sulfate 90 Mcg 8 Gm Inhaler) 2 puff INHALE RQ4H PRN PRN Reason: Shortness of Breath Last Admin: 05/22/24 14:18 Dose: 2 puff Atenolol (Atenolol 25 Mg Tablet) 25 mg PO DAILY [facility]; Protocol Last Admin: 05/22/24 08:33 Dose: 25 mg Atorvastatin Calcium (Atorvastatin Calcium 40 Mg Tablet) 40 mg PO DAILY [facility] Last Admin: 05/22/24 08:33 Dose: 40 mg Bupropion HCl (Bupropion Hcl Xl 150 Mg Tab.Er.24h) 150 mg PO DAILY [facility] Last Admin: 05/22/24 08:33 Dose: 150 mg Escitalopram Oxalate (Escitalopram Oxalate 20 Mg Tablet) 20 mg PO DAILY [facility] Last Admin: 05/22/24 08:32 Dose: 20 mg Ferrous Sulfate (Ferrous Sulfate 324 Mg Tablet.) 324 mg PO DAILY [facility] Last Admin: 05/22/24 08:33 Dose: 324 mg Hydroxyzine HCl (Hydroxyzine Hcl 25 Mg Tablet) 25 mg PO Q6H PRN PRN Reason: Anxiety Last Admin: 05/21/24 21:05 Dose: 25 mg Insulin Glargine (Insulin Glargine,Hum.Rec.Anlog 100 Unit/Ml 10 Ml Vial) 20 unit SUBCUT DAILY [facility] Last Admin: 05/22/24 08:34 Dose: 20 unit Magnesium Hydroxide (Milk Of Magnesia 30 Ml Oral.Susp) 30 ml PO DAILY PRN PRN Reason: Constipation Meclizine HCl (Meclizine Hcl 25 Mg Tablet) 25 mg PO TID PRN PRN Reason: dizziness Metformin HCl (Metformin Hcl 1,000 Mg Tablet) 1,000 mg PO BID [facility] Last Admin: 05/22/24 08:32 Dose: 1,000 mg Multi-Ingred Cream/Lotion/Oil/Oint (Mineral Oil/Petrolatum,White 106 Gm Tube) 1 appl TOPICAL TID [facility]; Protocol Last Admin: 05/22/24 14:44 Dose: 1 appl Nicotine (Nicotine 21 Mg Patch.Td24) 21 mg TRANSDERMA DAILY PRN PRN Reason: nicotine cravings Nicotine Polacrilex (Nicotine Polacrilex 2 Mg Gum) 4 mg BUCCAL Q2H PRN PRN Reason: Nicotine Cravings Omeprazole (Omeprazole 40 Mg Capsule.) 40 mg PO DAILY@0630 [facility] Last Admin: 05/22/24 08:32 Dose: 40 mg Quetiapine Fumarate (Quetiapine Fumarate 25 Mg Tablet) 12.5 mg PO TID [facility] Last Admin: 05/22/24 14:44 Dose: 12.5 mg Tamsulosin HCl (Tamsulosin Hcl 0.4 Mg Capsule) 0.4 mg PO BEDTIME [facility] Last Admin: 05/21/24 21:05 Dose: 0.4 mg Thiamine HCl (Thiamine Hcl 100 Mg Tablet) 100 mg PO DAILY [facility] Last Admin: 05/22/24 08:33 Dose: 100 mg Trazodone HCl (Trazodone Hcl 50 Mg Tablet) 50 mg PO BEDTIME PRN PRN Reason: sleep Last Admin: 05/21/24 21:05 Dose: 50 mg Vitamin D (Cholecalciferol (Vitamin D3) 25 Mcg Tablet) 50 mcg PO DAILY [facility] Last Admin: 05/22/24 08:33 Dose: 50 mcg Allergies Allergies Allergy/AdvReac Type Severity Reaction Status Date / Time pollen extracts [POLLEN] Allergy Mild RUNNY NOSE Verified 05/17/24 14:27 cat dander [CATS] Allergy Unknown UNKNOWN Verified 05/17/24 14:27 dog dander [DOGS] Allergy Unknown UNKNOWN Verified 05/17/24 14:27 mold [MOLD] Allergy Unknown UNKNOWN Verified 05/17/24 14:27 Assessment & Plan Assessment & Plan (1) Visual hallucination: Status: Acute Code(s): R44.1 - Visual hallucinations (2) Recurrent major depression: Status: Acute Code(s): F33.9 - Major depressive disorder, recurrent, unspecified (3) Suicidal ideation: Status: Acute Code(s): R45.851 - Suicidal ideations (4) Auditory hallucinations: Status: Acute Code(s): R44.0 - Auditory hallucinations Plan 05/20/24: Thiamine 100 mg daily Lactulose 20gm x 1 Ammonia repeat on 05/23/24 Seroquel 12.5 mg tid 05/21 Patient reports that he is feeling little better. Says AH is almost gone. He did have an intrusive thought about hurting himself however this was ego-dystonic and he has no actual feelings or desire for suicide. He came out of the room to be around other people because of the thought. Elevator Service Technician talked somewhat about OCD however patient said that he has never had intrusive thoughts before 2 weeks ago. Since patient is starting to feel better and AH relieved, patient agreed to remain on current medication regimen for now --Later patient showed injury from a year ago left torso under left pectoral muscle where he fell was punctured by a nail; said it irritates him and he has been itching it which has caused some scarring. Patient asked for some Tegaderm to help resist itching 05/22 mood better; no AH today; slept well; amenable to continuing treatment plan Patient educated on: diagnosis and medication risk/benefits Informed Consent: understands Reason for continued inpatient stay Substantial Risk for: rapid decompensation Time Spent With Patient Time: Total time managing care of this patient today ____ minutes.
[2024-05-22 20:00] VITALS: BP 132/76; PULSE 71; TEMP 36.5; O2SAT 95
[2024-05-22 21:43] LABS: Glucose, Whole Blood 121 mg/dL (60-115)
[2024-05-22] MEDS: traZODone HCL 50 MG TABLET PO (22:57)
[2024-05-22] MEDS: Tamsulosin HCL 0.4 MG CAPSULE PO (22:58)
[2024-05-23] MEDS: Omeprazole 40 MG CAPSULE.DR PO (07:27)
[2024-05-23 08:00] VITALS: BP 131/67; PULSE 74; RESP 16; TEMP 36.2; O2SAT 95
[2024-05-23 08:07] LABS: Glucose, Whole Blood 106 mg/dL (60-115)
[2024-05-23] MEDS: QUEtiapine Fumarate 25 MG TABLET 12.5 MG PO ×2 (08:25→15:42)
[2024-05-23] MEDS: Atorvastatin Calcium 40 MG TABLET PO (08:25)
[2024-05-23] MEDS: Thiamine HCL 100 MG TABLET PO (08:25)
[2024-05-23] MEDS: Escitalopram Oxalate 20 MG TABLET PO (08:25)
[2024-05-23] MEDS: Ferrous Sulfate 324 MG TABLET.DR PO (08:25)
[2024-05-23] MEDS: buPROPion HCl XL 150 MG TAB.ER.24H PO (08:26)
[2024-05-23] MEDS: Cholecalciferol (Vitamin D3) 25 MCG TABLET 50 MCG PO (08:26)
[2024-05-23] MEDS: Insulin Glargine,Hum.rec.anlog 100 UNIT/ML 10 ML VIAL 20 UNIT SUBCUT (08:26)
[2024-05-23] MEDS: atenoloL 25 MG TABLET PO (08:26)
[2024-05-23] MEDS: metFORMIN HCl 1,000 MG TABLET 1000 MG PO ×2 (08:26→21:52)
[2024-05-23] MEDS: Mineral Oil/Petrolatum,White 106 GM Tube 1 APPL TOPICAL (09:17)
[2024-05-23 11:58] LABS: Ammonia 32 umol/L (13-55)
[2024-05-23] MEDS: Albuterol Sulfate 90 MCG 8 GM INHALER 2 PUFF INHALE ×2 (14:05→20:15)
--- NOTE | 2024-05-23 16:10 | HO.PSYCHPN ---
Subjective Subjective Date of Service: 05/23/24 Reason For Visit: Depression Subjective Notes: Conditional Voluntary Healthcare Proxy: No Guardianship: No Medical Problems Affecting Mental Status: No Interim History: Pt reported improved sx over the weekend. Today Ammonia is 32, he declined CPAP, reports hand tremor, dreaming about SI, feeling constipation, weakness, anergy. Chest wall injury appears worse with odor, yellow-green drainage. Hospitalist consult ordered. Dr. Moser suggests wound care consult. Medication Compliance: Yes Side effects from medications: Yes (??) Attending Groups: Yes Review of Systems Review of Systems as noted in HPI Mental Status Exam Mental Status Exam Patient Appearance: Fatigued Patient Orientation: Person, Place, Time and Situation Level of Consciousness: Alert Patient Behavior: Talkative and Good Eye Contact Mood Description: Anxious Affect Description: Anxious Patient Cognition Impaired: No Ability to Follow Directions: Good Speech Pattern: Spontaneous Speech Memory Description: Episodic Impaired Hallucinations: None Delusions: Not Present Thought Content: positive for Circumstantial and positive for Suicidal Ideation Depressive Symptoms: Thoughts of /Suicide Judgement: Fair Diagnostics Vital Signs (24Hr): Vital Signs - 24 hr 05/22/24 20:00 05/23/24 08:00 Temperature 97.7 F 97.1 F Pulse Rate 71 74 Respiratory Rate 16 Blood Pressure 132/76 131/67 Pulse Oximetry 95 95 Oxygen Delivery Method Room Air Room Air BMI result Body Mass Index 46.5 Labs 05/17/24 15:21 05/24/24 08:33 Labs: Laboratory Results - last 48 hr 05/21/24 05/22/24 05/22/24 20:54 07:51 21:37 POC Glucose 157 H 102 121 H Ammonia 05/23/24 05/23/24 07:44 11:45 POC Glucose 106 Ammonia 32 Medications Medications Current Medications Acetaminophen (Acetaminophen 325 Mg Tablet) 650 mg PO Q6H PRN PRN Reason: Headache/Pain Mild Scale (1-3) Al Hydroxide/Mg Hydroxide (Magnesium Hydrox/Alum Hydrox 30 Ml Oral.Susp) 30 ml PO Q6H PRN PRN Reason: Heartburn/Nausea Albuterol Sulfate (Albuterol Sulfate 90 Mcg 8 Gm Inhaler) 2 puff INHALE RQ4H PRN PRN Reason: Shortness of Breath Last Admin: 05/23/24 14:05 Dose: 2 puff Atenolol (Atenolol 25 Mg Tablet) 25 mg PO DAILY [facility]; Protocol Last Admin: 05/23/24 08:26 Dose: 25 mg Atorvastatin Calcium (Atorvastatin Calcium 40 Mg Tablet) 40 mg PO DAILY [facility] Last Admin: 05/23/24 08:25 Dose: 40 mg Bupropion HCl (Bupropion Hcl Xl 150 Mg Tab.Er.24h) 150 mg PO DAILY [facility] Last Admin: 05/23/24 08:26 Dose: 150 mg Escitalopram Oxalate (Escitalopram Oxalate 20 Mg Tablet) 20 mg PO DAILY [facility] Last Admin: 05/23/24 08:25 Dose: 20 mg Ferrous Sulfate (Ferrous Sulfate 324 Mg Tablet.) 324 mg PO DAILY [facility] Last Admin: 05/23/24 08:25 Dose: 324 mg Hydroxyzine HCl (Hydroxyzine Hcl 25 Mg Tablet) 25 mg PO Q6H PRN PRN Reason: Anxiety Last Admin: 05/21/24 21:05 Dose: 25 mg Insulin Glargine (Insulin Glargine,Hum.Rec.Anlog 100 Unit/Ml 10 Ml Vial) 20 unit SUBCUT DAILY [facility] Last Admin: 05/23/24 08:26 Dose: 20 unit Magnesium Hydroxide (Milk Of Magnesia 30 Ml Oral.Susp) 30 ml PO DAILY PRN PRN Reason: Constipation Meclizine HCl (Meclizine Hcl 25 Mg Tablet) 25 mg PO TID PRN PRN Reason: dizziness Metformin HCl (Metformin Hcl 1,000 Mg Tablet) 1,000 mg PO BID [facility] Last Admin: 05/23/24 08:26 Dose: 1,000 mg Multi-Ingred Cream/Lotion/Oil/Oint (Mineral Oil/Petrolatum,White 106 Gm Tube) 1 appl TOPICAL TID [facility]; Protocol Last Admin: 05/23/24 15:45 Dose: Not Given Nicotine (Nicotine 21 Mg Patch.Td24) 21 mg TRANSDERMA DAILY PRN PRN Reason: nicotine cravings Nicotine Polacrilex (Nicotine Polacrilex 2 Mg Gum) 4 mg BUCCAL Q2H PRN PRN Reason: Nicotine Cravings Omeprazole (Omeprazole 40 Mg Capsule.) 40 mg PO DAILY@0630 [facility] Last Admin: 05/23/24 07:27 Dose: 40 mg Quetiapine Fumarate (Quetiapine Fumarate 25 Mg Tablet) 12.5 mg PO TID [facility] Last Admin: 05/23/24 15:42 Dose: 12.5 mg Tamsulosin HCl (Tamsulosin Hcl 0.4 Mg Capsule) 0.4 mg PO BEDTIME [facility] Last Admin: 05/22/24 22:58 Dose: 0.4 mg Thiamine HCl (Thiamine Hcl 100 Mg Tablet) 100 mg PO DAILY [facility] Last Admin: 05/23/24 08:25 Dose: 100 mg Trazodone HCl (Trazodone Hcl 50 Mg Tablet) 50 mg PO BEDTIME PRN PRN Reason: sleep Last Admin: 05/22/24 22:57 Dose: 50 mg Vitamin D (Cholecalciferol (Vitamin D3) 25 Mcg Tablet) 50 mcg PO DAILY [facility] Last Admin: 05/23/24 08:26 Dose: 50 mcg Allergies Allergies Allergy/AdvReac Type Severity Reaction Status Date / Time pollen extracts [POLLEN] Allergy Mild RUNNY NOSE Verified 05/17/24 14:27 cat dander [CATS] Allergy Unknown UNKNOWN Verified 05/17/24 14:27 dog dander [DOGS] Allergy Unknown UNKNOWN Verified 05/17/24 14:27 mold [MOLD] Allergy Unknown UNKNOWN Verified 05/17/24 14:27 Assessment & Plan Assessment & Plan (1) Visual hallucination: Status: Acute Code(s): R44.1 - Visual hallucinations (2) Recurrent major depression: Status: Acute Code(s): F33.9 - Major depressive disorder, recurrent, unspecified (3) Suicidal ideation: Status: Acute Code(s): R45.851 - Suicidal ideations (4) Auditory hallucinations: Status: Acute Code(s): R44.0 - Auditory hallucinations Plan 05/20/24: Thiamine 100 mg daily Lactulose 20gm x 1 Ammonia repeat on 05/23/24 Seroquel 12.5 mg tid 05/21 Patient reports that he is feeling little better. Says AH is almost gone. He did have an intrusive thought about hurting himself however this was ego-dystonic and he has no actual feelings or desire for suicide. He came out of the room to be around other people because of the thought. Adjunct Trainer talked somewhat about OCD however patient said that he has never had intrusive thoughts before 2 weeks ago. Since patient is starting to feel better and AH relieved, patient agreed to remain on current medication regimen for now --Later patient showed injury from a year ago left torso under left pectoral muscle where he fell was punctured by a nail; said it irritates him and he has been itching it which has caused some scarring. Patient asked for some Tegaderm to help resist itching 05/22 mood better; no AH today; slept well; amenable to continuing treatment plan 05/23 Decrease Seroquel to 12.5 mg daily Hospitalist consult L chest wound Wound care consult, L chest wound Colace 100 mg daily Dry mouth spray prn Reason for continued inpatient stay Substantial Risk for: rapid decompensation and med/psych decompensation Time Spent With Patient Time: Total time managing care of this patient today ____ minutes.
[2024-05-23 20:00] VITALS: BP 133/66; PULSE 76; TEMP 36.8; O2SAT 92
--- NOTE | 2024-05-23 20:56 | P.CONHOSP_ITS ---
History of Present Illness Data of Consult Service Date: 05/23/24 Requesting physician: Kaitlyn Long Primary Care Provider: Bon Arvizu MD HPI Reason for consult: L chest wound 53-year-old male past medical history significant for COPD, obesity, vertigo, GERD, chronic kidney disease, hypertension, diabetes, hyperlipidemia, admitted to [facility] for auditory hallucinations and suicidal ideation, consulted for left chest wound. Patient reports that he has had this wound for quite awhile and has scarring in that area secondary to surgery for a chondrosarcoma removal. He saw his PCP on 05/03/2024 with complaints of possible infection to the wound. He was sent home with Keflex and wound care consult however he reports he was not able to connect with wound care prior to being admitted for his psychiatric issues. He does not have any sensation of pain since having the surgery on the left side of his chest therefore is not experiencing any pain but reports some purulent drainage and erythema. He did complete the Keflex treatment that he was prescribed by his PCP. Reports areas very itchy and he feels that he likely infected this wound due to aggressive scratching. He denies any nausea, vomiting, fever or chills. Review of Systems 2 Constitutional: Constitutional: Denies chills, Denies fever(s) and Denies headache(s) Eyes: Eyes: Denies change in vision ENT: Denies headache(s) Respiratory: Respiratory: Denies cough Gastrointestinal: Gastrointestinal: Denies diarrhea, Denies nausea and Denies vomiting Integumentary/Breasts: Skin/Breast: Reports as per HPI Neurologic: Denies confusion and Denies headache(s) Psychiatric: Psychiatric: Denies confusion Hematologic/Lymphatic: Hematologic/Lymphatic: Denies easy bleeding and Denies easy bruising [facility] Medical History (Updated 05/23/24 @ 21:09 by Rupinder Matamoros PA-C) Recurrent major depression Allergic rhinitis Insomnia Palpitations Vitamin D deficiency Chronic kidney disease, stage III (moderate) GERD without esophagitis Restrictive lung disease Obesity (BMI 30-39.9) Benign essential hypertension Pure hypercholesterolemia Diabetes mellitus Pulmonary emboli Chondrosarcoma Hyperlipidemia Chronic restrictive lung disease COPD (chronic obstructive pulmonary disease) Asthma Functional capacity: independent ambulation Family History Father Hypertension Kidney failure, acute Mother Lung cancer Family/Other Diabetes Surgical History (Updated 05/03/24 @ 13:57 by Bon Arvizu MD) History of esophagogastroduodenoscopy (EGD) H/O colonoscopy History of inguinal hernia repair Hx of exploratory thoracotomy H/O tooth extraction Social History Household Members: None Housing: House Do you presently have visiting nurse or other home services: No Alcohol intake: never Patient Tobacco Use Status: Never used Tobacco Smoked in Last 30 Days: No e-Cigarette/Vaping Use: Never Used Second Hand Smoke Exposure: Yes Use of substances other than those prescribed or required for medical reasons: No Currently Displaying Signs/Symptoms of Drug Intoxication Withdrawal: No Have you been hit, kicked, punched, or otherwise hurt by someone within the past year? If so, by whom?: No Do you feel safe in your current relationship?: No Current Relationship Is there a partner from a previous relationship who is making you feel unsafe now?: No Are you made to feel afraid or neglected: No Advance Directives: No Advance Directives Information Provided: Yes Do you have thoughts of harming others: None Do you have a plan to hurt others: No Plan Recently lost weight without trying: Yes How much weight loss: 34pounds or more Eating poorly because of decreased appetite: No Nutrition screen score: 6 Nutrition Risks: No Nutritional Risk Poor oral hygiene: Yes service: No Current occupational status: unemployed Sexual orientation: Unable to collect Cognitive needs: No Hearing needs: No Vision needs: Yes (Glasses) Meds Allergies Allergy/AdvReac Type Severity Reaction Status Date / Time pollen extracts [POLLEN] Allergy Mild RUNNY NOSE Verified 05/17/24 14:27 cat dander [CATS] Allergy Unknown UNKNOWN Verified 05/17/24 14:27 dog dander [DOGS] Allergy Unknown UNKNOWN Verified 05/17/24 14:27 mold [MOLD] Allergy Unknown UNKNOWN Verified 05/17/24 14:27 Active Medications: Current Medications Acetaminophen (Acetaminophen 325 Mg Tablet) 650 mg PO Q6H PRN PRN Reason: Headache/Pain Mild Scale (1-3) Al Hydroxide/Mg Hydroxide (Magnesium Hydrox/Alum Hydrox 30 Ml Oral.Susp) 30 ml PO Q6H PRN PRN Reason: Heartburn/Nausea Albuterol Sulfate (Albuterol Sulfate 90 Mcg 8 Gm Inhaler) 2 puff INHALE RQ4H PRN PRN Reason: Shortness of Breath Last Admin: 05/23/24 20:15 Dose: 2 puff Atenolol (Atenolol 25 Mg Tablet) 25 mg PO DAILY [facility]; Protocol Last Admin: 05/23/24 08:26 Dose: 25 mg Atorvastatin Calcium (Atorvastatin Calcium 40 Mg Tablet) 40 mg PO DAILY [facility] Last Admin: 05/23/24 08:25 Dose: 40 mg Bupropion HCl (Bupropion Hcl Xl 150 Mg Tab.Er.24h) 150 mg PO DAILY [facility] Last Admin: 05/23/24 08:26 Dose: 150 mg Docusate Sodium (Docusate Sodium 100 Mg Capsule) 100 mg PO BEDTIME [facility] Escitalopram Oxalate (Escitalopram Oxalate 20 Mg Tablet) 20 mg PO DAILY [facility] Last Admin: 05/23/24 08:25 Dose: 20 mg Ferrous Sulfate (Ferrous Sulfate 324 Mg Tablet.Dr) 324 mg PO DAILY [facility] Last Admin: 05/23/24 08:25 Dose: 324 mg Hydroxyzine HCl (Hydroxyzine Hcl 25 Mg Tablet) 25 mg PO Q6H PRN PRN Reason: Anxiety Last Admin: 05/21/24 21:05 Dose: 25 mg Insulin Glargine (Insulin Glargine,Hum.Rec.Anlog 100 Unit/Ml 10 Ml Vial) 20 unit SUBCUT DAILY [facility] Last Admin: 05/23/24 08:26 Dose: 20 unit Magnesium Hydroxide (Milk Of Magnesia 30 Ml Oral.Susp) 30 ml PO DAILY PRN PRN Reason: Constipation Meclizine HCl (Meclizine Hcl 25 Mg Tablet) 25 mg PO TID PRN PRN Reason: dizziness Metformin HCl (Metformin Hcl 1,000 Mg Tablet) 1,000 mg PO BID [facility] Last Admin: 05/23/24 08:26 Dose: 1,000 mg Multi-Ingred Cream/Lotion/Oil/Oint (Mineral Oil/Petrolatum,White 106 Gm Tube) 1 appl TOPICAL TID [facility]; Protocol Last Admin: 05/23/24 15:45 Dose: Not Given Nicotine (Nicotine 21 Mg Patch.Td24) 21 mg TRANSDERMA DAILY PRN PRN Reason: nicotine cravings Nicotine Polacrilex (Nicotine Polacrilex 2 Mg Gum) 4 mg BUCCAL Q2H PRN PRN Reason: Nicotine Cravings Omeprazole (Omeprazole 40 Mg Capsule.Dr) 40 mg PO DAILY@0630 [facility] Last Admin: 05/23/24 07:27 Dose: 40 mg Quetiapine Fumarate (Quetiapine Fumarate 25 Mg Tablet) 12.5 mg PO DAILY [facility] Saliva Substitute (Dry Mouth [place] 60 Ml [place]) 1 spray MUCOUS MEM Q2H PRN PRN Reason: Dry Mouth Tamsulosin HCl (Tamsulosin Hcl 0.4 Mg Capsule) 0.4 mg PO BEDTIME [facility] Last Admin: 05/22/24 22:58 Dose: 0.4 mg Thiamine HCl (Thiamine Hcl 100 Mg Tablet) 100 mg PO DAILY [facility] Last Admin: 05/23/24 08:25 Dose: 100 mg Trazodone HCl (Trazodone Hcl 50 Mg Tablet) 50 mg PO BEDTIME PRN PRN Reason: sleep Last Admin: 05/22/24 22:57 Dose: 50 mg Vitamin D (Cholecalciferol (Vitamin D3) 25 Mcg Tablet) 50 mcg PO DAILY [facility] Last Admin: 05/23/24 08:26 Dose: 50 mcg Home Medications ?Medication ?Instructions ?Recorded ?Confirmed ?Last Taken ?Type insulin glargine-yfgn 100 unit/mL 20 unit subcut DAILY 05/17/24 05/17/24 05/17/24 07:00 History (3 mL) subcutaneous pen Physical Exam 2 Vital Signs and Narrative: Vital Signs: Last Vital Signs Temp 97.1 F 05/23/24 08:00 Pulse 74 05/23/24 08:00 Resp 16 05/23/24 08:00 BP 131/67 05/23/24 08:00 Pulse Ox 95 05/23/24 08:00 O2 Del Method Room Air 05/23/24 08:00 BMI result Body Mass Index 46.5 General: AOx3, no acute distress Resp: CTA bilaterally CVS: S1, S2, RRR Skin: Warm, dry. Multiple open wounds left chest wall, malodorous with mild purulent drainage. No fluctuance. Mild warmth. Psych: Appropriate affect Const: General: No confusion Orientation/consciousness: No confusion Neuro: General: No confusion Results Labs 05/17/24 15:21 05/17/24 15:21 Labs: Laboratory Results - last 24 hr 05/22/24 05/23/24 05/23/24 21:37 07:44 11:45 POC Glucose 121 H 106 Ammonia 32 Assessment and Plan (1) Open wound of left chest wall without complication: Status: Acute (2) Cellulitis: Status: Acute Plan 53-year-old male past medical history significant for COPD, obesity, vertigo, GERD, chronic kidney disease, hypertension, diabetes, hyperlipidemia, admitted to [facility] for auditory hallucinations and suicidal ideation, consulted for left chest wound. This has been evaluated multiple times by her PCP and again in the ED. the patient reports that he has not been able to see wound care. Left chest wall wound with possible superimposed cellulitis - patient completed a course of Keflex prescribed by his PCP but has not yet seen wound care - no history of MRSA but will initiate doxycycline 100 mg b.i.d. times 10 days - wound care consult - keep area clean and dry - encouraged patient to not scratch the wounds as this can increase risk for further infection Thank you for allowing me to participate in the pt's care. Signing off for now. Please contact the medical team if any questions or concerns.
[2024-05-23 21:47] LABS: Glucose, Whole Blood 138 mg/dL (60-115)
[2024-05-23] MEDS: Docusate Sodium 100 MG CAPSULE PO (21:52)
[2024-05-23] MEDS: Doxycycline Monohydrate 100 MG CAPSULE PO (21:52)
[2024-05-23] MEDS: Tamsulosin HCL 0.4 MG CAPSULE PO (21:52)
--- NOTE | 2024-05-23 22:36 | PC.NURSE ---
Patient told this television writer that he didn't want to use his CPAP this evening.
[2024-05-24] MEDS: Omeprazole 40 MG CAPSULE.DR PO (06:57)
[2024-05-24 08:06] LABS: Glucose, Whole Blood 87 mg/dL (60-115)
[2024-05-24] MEDS: Insulin Glargine,Hum.rec.anlog 100 UNIT/ML 10 ML VIAL 20 UNIT SUBCUT (09:01)
[2024-05-24] MEDS: QUEtiapine Fumarate 25 MG TABLET 12.5 MG PO (09:02)
[2024-05-24 09:03] VITALS: BP 120/62; PULSE 66; PULSE 82; RESP 16; TEMP 36.7; O2SAT 92
[2024-05-24 09:03] LABS: Creatinine Clr Calc Pharmacy 62.3; Estimated Glomerular Filt Rate 52
[2024-05-24] MEDS: buPROPion HCl XL 150 MG TAB.ER.24H PO (09:03)
[2024-05-24] MEDS: metFORMIN HCl 1,000 MG TABLET 1000 MG PO ×2 (09:03→21:33)
[2024-05-24] MEDS: atenoloL 25 MG TABLET PO (09:03)
[2024-05-24] MEDS: Atorvastatin Calcium 40 MG TABLET PO (09:04)
[2024-05-24] MEDS: Cholecalciferol (Vitamin D3) 25 MCG TABLET 50 MCG PO (09:04)
[2024-05-24] MEDS: Doxycycline Monohydrate 100 MG CAPSULE PO ×2 (09:04→21:33)
[2024-05-24] MEDS: Thiamine HCL 100 MG TABLET PO (09:04)
[2024-05-24] MEDS: Ferrous Sulfate 324 MG TABLET.DR PO (09:04)
[2024-05-24] MEDS: Escitalopram Oxalate 20 MG TABLET PO (09:04)
[2024-05-24] MEDS: Mineral Oil/Petrolatum,White 106 GM Tube 1 APPL TOPICAL ×2 (10:13→14:36)
[2024-05-24] MEDS: Albuterol Sulfate 90 MCG 8 GM INHALER 2 PUFF INHALE ×2 (11:05→21:39)
[2024-05-24] MEDS: Betamethasone Dip Aug 0.05% Cr 15 GM TUBE 1 APPL TOPICAL (12:22)
--- NOTE | 2024-05-24 12:28 | HO.WOUND ---
Wound Consult: Initial 53yr old?male admitted to [facility] on 05/18/24 to the Adult Behavioral [facility] Unit - See progress notes and H&P for detailed history.? Wound consult placed for Left Chest wound.? Patient agreeable to assessment and photo documentation.? See chart review for details patient was seen by Hospitalist this admission. Left Chest Etiology: ??Unclear Etiology Present on Admission Measurements: approximately 8cm x 18cm x 0.2cm Wound Bed: scattered areas of open red moist tissue - relatively clean with scant yellow slough to some wound beds Drainage / Odor: none at the time of my assessment no dressing in place noted Edges: ? irregular and scarred Kay wound: ?hyperpigmented tissue noted, significant scar tissue noted and irregular healing noted - No Induration, Fluctuance or Warmth noted Pain: denies pain reports incessant itching Goals of Treatment: ? Provider to order topical steroid for the itch, wound bed treatment with durafiber AG Of note patient may shower. Recommendations: 1. When applicable maintain blood glucose levels per Providers order. 2. Left Chest - Cleanse with NS moist gauze, pat dry. Apply Topical steroid twice daily per provider orders. Cover open wounds with Durafiber AG, Dry gauze, ABD pad and Tape. Change Durafiber every other day, may peel back dressing to apply topical steroid to area around wounds. Re-consult wound care Nurse for wound deterioration or wound changes.
--- NOTE | 2024-05-24 17:28 | P.PNPSI_ITS ---
Subjective Subjective Date of Service: 05/24/24 Reason For Visit: Depression Subjective Notes: Conditional Voluntary Healthcare Proxy: No Guardianship: No Medical Problems Affecting Mental Status: No Interim History: Seen by wound care, Betamethasone cream ordered. Denies SAMUEL today, attempting to attend milieu groups, but they do make me nervous so I don't go. Reports chest wound feels improved. Refused CPAP last evening. States he does not feel comfortable with the machine. States he feels like he is backsliding . Asks to work on finding day structure, a job, a routine. Interested in a [employer], but it needs to be on a bus route. Medication Compliance: Yes Side effects from medications: No Attending Groups: Intermittent Review of Systems Acute medical concerns: No Medical Review of Systems: unchanged Review of Systems Review of Systems Denies Chest wound healing Mental Status Exam Mental Status Exam Patient Appearance: Fatigued Patient Orientation: Person, Place, Time and Situation Level of Consciousness: Alert Patient Behavior: Talkative and Good Eye Contact Mood Description: Anxious Affect Description: Anxious Patient Cognition Impaired: No Ability to Follow Directions: Good Speech Pattern: Spontaneous Speech Memory Description: Episodic Impaired Hallucinations: None Delusions: Not Present Thought Process: Rumination Thought Content: positive for Circumstantial Judgement: Fair Diagnostics Vital Signs (24Hr): Vital Signs - 24 hr 05/23/24 20:00 05/24/24 09:03 05/24/24 09:03 Temperature 98.2 F 98.1 F Pulse Rate 76 82 66 Respiratory Rate 16 Blood Pressure 133/66 120/62 120/62 Pulse Oximetry 92 92 Oxygen Delivery Method Room Air Room Air BMI result Body Mass Index 46.5 Labs 05/17/24 15:21 05/24/24 08:33 Labs: Laboratory Results - last 48 hr 05/22/24 05/23/24 05/23/24 21:37 07:44 11:45 Creatinine Estim Creat Clear Calc Estimated GFR POC Glucose 121 H 106 Ammonia 32 05/23/24 05/24/24 05/24/24 21:44 08:00 08:33 Creatinine 1.42 H Estim Creat Clear Calc 62.3 Estimated GFR 52 POC Glucose 138 H 87 Ammonia Medications Medications Current Medications Acetaminophen (Acetaminophen 325 Mg Tablet) 650 mg PO Q6H PRN PRN Reason: Headache/Pain Mild Scale (1-3) Al Hydroxide/Mg Hydroxide (Magnesium Hydrox/Alum Hydrox 30 Ml Oral.Susp) 30 ml PO Q6H PRN PRN Reason: Heartburn/Nausea Albuterol Sulfate (Albuterol Sulfate 90 Mcg 8 Gm Inhaler) 2 puff INHALE RQ4H PRN PRN Reason: Shortness of Breath Last Admin: 05/24/24 11:05 Dose: 2 puff Atenolol (Atenolol 25 Mg Tablet) 25 mg PO DAILY [facility]; Protocol Last Admin: 05/24/24 09:03 Dose: 25 mg Atorvastatin Calcium (Atorvastatin Calcium 40 Mg Tablet) 40 mg PO DAILY [facility] Last Admin: 05/24/24 09:04 Dose: 40 mg Betamethasone Dipropion Augmented (Betamethasone Dip Aug 0.05% Cr 15 Gm Tube) 1 appl TOPICAL BID [facility]; Protocol Last Admin: 05/24/24 12:22 Dose: 1 appl Bupropion HCl (Bupropion Hcl Xl 150 Mg Tab.Er.24h) 150 mg PO DAILY [facility] Last Admin: 05/24/24 09:03 Dose: 150 mg Docusate Sodium (Docusate Sodium 100 Mg Capsule) 100 mg PO BEDTIME [facility] Last Admin: 05/23/24 21:52 Dose: 100 mg Doxycycline Monohydrate (Doxycycline Monohydrate 100 Mg Capsule) 100 mg PO Q12H COUNT [facility] Stop: 06/02/24 09:16 Last Admin: 05/24/24 09:04 Dose: 100 mg Escitalopram Oxalate (Escitalopram Oxalate 20 Mg Tablet) 20 mg PO DAILY [facility] Last Admin: 05/24/24 09:04 Dose: 20 mg Ferrous Sulfate (Ferrous Sulfate 324 Mg Tablet.Dr) 324 mg PO DAILY [facility] Last Admin: 05/24/24 09:04 Dose: 324 mg Hydroxyzine HCl (Hydroxyzine Hcl 25 Mg Tablet) 25 mg PO Q6H PRN PRN Reason: Anxiety Last Admin: 05/21/24 21:05 Dose: 25 mg Insulin Glargine (Insulin Glargine,Hum.Rec.Anlog 100 Unit/Ml 10 Ml Vial) 20 unit SUBCUT DAILY [facility] Last Admin: 05/24/24 09:01 Dose: 20 unit Magnesium Hydroxide (Milk Of Magnesia 30 Ml Oral.Susp) 30 ml PO DAILY PRN PRN Reason: Constipation Meclizine HCl (Meclizine Hcl 25 Mg Tablet) 25 mg PO TID PRN PRN Reason: dizziness Metformin HCl (Metformin Hcl 1,000 Mg Tablet) 1,000 mg PO BID [facility] Last Admin: 05/24/24 09:03 Dose: 1,000 mg Multi-Ingred Cream/Lotion/Oil/Oint (Mineral Oil/Petrolatum,White 106 Gm Tube) 1 appl TOPICAL TID [facility]; Protocol Last Admin: 05/24/24 14:36 Dose: 1 appl Nicotine (Nicotine 21 Mg Patch.Td24) 21 mg TRANSDERMA DAILY PRN PRN Reason: nicotine cravings Nicotine Polacrilex (Nicotine Polacrilex 2 Mg Gum) 4 mg BUCCAL Q2H PRN PRN Reason: Nicotine Cravings Omeprazole (Omeprazole 40 Mg Capsule.Dr) 40 mg PO DAILY@0630 [facility] Last Admin: 05/24/24 06:57 Dose: 40 mg Quetiapine Fumarate (Quetiapine Fumarate 25 Mg Tablet) 12.5 mg PO DAILY [facility] Last Admin: 05/24/24 09:02 Dose: 12.5 mg Saliva Substitute (Dry Mouth [place] 60 Ml [place]) 1 spray MUCOUS MEM Q2H PRN PRN Reason: Dry Mouth Tamsulosin HCl (Tamsulosin Hcl 0.4 Mg Capsule) 0.4 mg PO BEDTIME [facility] Last Admin: 05/23/24 21:52 Dose: 0.4 mg Thiamine HCl (Thiamine Hcl 100 Mg Tablet) 100 mg PO DAILY [facility] Last Admin: 05/24/24 09:04 Dose: 100 mg Trazodone HCl (Trazodone Hcl 50 Mg Tablet) 50 mg PO BEDTIME PRN PRN Reason: sleep Last Admin: 05/22/24 22:57 Dose: 50 mg Vitamin D (Cholecalciferol (Vitamin D3) 25 Mcg Tablet) 50 mcg PO DAILY [facility] Last Admin: 05/24/24 09:04 Dose: 50 mcg Allergies Allergies Allergy/AdvReac Type Severity Reaction Status Date / Time pollen extracts [POLLEN] Allergy Mild RUNNY NOSE Verified 05/17/24 14:27 cat dander [CATS] Allergy Unknown UNKNOWN Verified 05/17/24 14:27 dog dander [DOGS] Allergy Unknown UNKNOWN Verified 05/17/24 14:27 mold [MOLD] Allergy Unknown UNKNOWN Verified 05/17/24 14:27 Assessment & Plan Assessment & Plan (1) Recurrent major depression: Status: Acute Code(s): F33.9 - Major depressive disorder, recurrent, unspecified (2) Auditory hallucinations: Status: Acute Code(s): R44.0 - Auditory hallucinations Plan 53-year-old male past medical history significant for COPD, obesity, vertigo, GERD, chronic kidney disease, hypertension, diabetes, hyperlipidemia, admitted to adult psych for auditory hallucinations and suicidal ideation, consulted for left chest wound. This has been evaluated multiple times by her PCP and again in the ED. the patient reports that he has not been able to see wound care. Left chest wall wound with possible superimposed cellulitis - patient completed a course of Keflex prescribed by his PCP but has not yet seen wound care - no history of MRSA but will initiate doxycycline 100 mg b.i.d. times 10 days - wound care consult - keep area clean and dry - encouraged patient to not scratch the wounds as this can increase risk for further infection Thank you for allowing me to participate in the pt's care. Signing off for now. Please contact the medical team if any questions or concerns. 05/24/24: Continue current regime. Reason for continued inpatient stay Substantial Risk for: rapid decompensation Time Spent With Patient Time: Total time managing care of this patient today ____ minutes.
[2024-05-24 20:00] VITALS: BP 130/66; PULSE 69; TEMP 36.4; O2SAT 94
[2024-05-24] MEDS: Dry Mouth Spray 60 ML SPRAY 1 SPRAY MUCOUS MEM (20:07)
[2024-05-24 21:11] LABS: Glucose, Whole Blood 112 mg/dL (60-115)
[2024-05-24] MEDS: Docusate Sodium 100 MG CAPSULE PO (21:33)
[2024-05-24] MEDS: Tamsulosin HCL 0.4 MG CAPSULE PO (21:33)
--- NOTE | 2024-05-24 22:58 | PC.NURSE ---
Patient has declined his CPAP at the time of this writing.
[2024-05-25] MEDS: Omeprazole 40 MG CAPSULE.DR PO (07:12)
[2024-05-25 08:19] LABS: Glucose, Whole Blood 100 mg/dL (60-115)
[2024-05-25 08:43] VITALS: BP 103/65; PULSE 61
[2024-05-25] MEDS: Doxycycline Monohydrate 100 MG CAPSULE PO ×2 (08:43→21:15)
[2024-05-25] MEDS: atenoloL 25 MG TABLET PO (08:43)
[2024-05-25] MEDS: buPROPion HCl XL 150 MG TAB.ER.24H PO (08:44)
[2024-05-25] MEDS: Cholecalciferol (Vitamin D3) 25 MCG TABLET 50 MCG PO (08:44)
[2024-05-25] MEDS: QUEtiapine Fumarate 25 MG TABLET 12.5 MG PO ×2 (08:44→21:15)
[2024-05-25] MEDS: Escitalopram Oxalate 20 MG TABLET PO (08:44)
[2024-05-25] MEDS: Insulin Glargine,Hum.rec.anlog 100 UNIT/ML 10 ML VIAL 20 UNIT SUBCUT (08:44)
[2024-05-25] MEDS: Atorvastatin Calcium 40 MG TABLET PO (08:44)
[2024-05-25] MEDS: Ferrous Sulfate 324 MG TABLET.DR PO (08:44)
[2024-05-25] MEDS: Thiamine HCL 100 MG TABLET PO (08:44)
[2024-05-25] MEDS: metFORMIN HCl 1,000 MG TABLET 1000 MG PO ×2 (08:44→21:15)
[2024-05-25 08:50] VITALS: BP 103/65; PULSE 61; RESP 16; TEMP 36.3; O2SAT 96
[2024-05-25] MEDS: Albuterol Sulfate 90 MCG 8 GM INHALER 2 PUFF INHALE ×2 (10:43→22:13)
[2024-05-25] MEDS: Mineral Oil/Petrolatum,White 106 GM Tube 1 APPL TOPICAL ×2 (11:30→14:01)
[2024-05-25] MEDS: Dry Mouth Spray 60 ML SPRAY 1 SPRAY MUCOUS MEM ×2 (11:30→19:06)
--- NOTE | 2024-05-25 17:19 | P.PNPSI_ITS ---
Subjective Subjective Date of Service: 05/25/24 Reason For Visit: Depression Subjective Notes: Conditional Voluntary Healthcare Proxy: No Guardianship: No Medical Problems Affecting Mental Status: No Interim History: Review of medications. Will increase Seroquel to 12.5 mg bid Pt beginning to plan DC Voices are controlled. Sleep is not great Depression/Anxiety -09/17 Medication Compliance: Yes Side effects from medications: No Attending Groups: Yes ( I am trying ) Review of Systems Acute medical concerns: No Medical Review of Systems: unchanged Review of Systems Review of Systems Denies Chest wound healing Mental Status Exam Mental Status Exam Patient Appearance: Appropriate Patient Orientation: Person, Place, Time and Situation Level of Consciousness: Alert Patient Behavior: Talkative and Good Eye Contact Mood Description: Apprehensive Affect Description: Apprehensive Patient Cognition Impaired: No Ability to Follow Directions: Good Speech Pattern: Spontaneous Speech Memory Description: Episodic Impaired Hallucinations: None Delusions: Not Present Thought Process: Rumination Thought Content: positive for Circumstantial Judgement: Good Diagnostics Vital Signs (24Hr): Vital Signs - 24 hr 05/24/24 20:00 05/25/24 08:43 05/25/24 08:50 Temperature 97.5 F 97.4 F Pulse Rate 69 61 61 Respiratory Rate 16 Blood Pressure 130/66 103/65 103/65 Pulse Oximetry 94 96 Oxygen Delivery Method Room Air Room Air BMI result Body Mass Index 46.5 Labs 05/17/24 15:21 05/24/24 08:33 Labs: Laboratory Results - last 48 hr 05/23/24 05/24/24 05/24/24 21:44 08:00 08:33 Creatinine 1.42 H Estim Creat Clear Calc 62.3 Estimated GFR 52 POC Glucose 138 H 87 05/24/24 05/25/24 21:04 08:03 Creatinine Estim Creat Clear Calc Estimated GFR POC Glucose 112 100 Medications Medications Current Medications Acetaminophen (Acetaminophen 325 Mg Tablet) 650 mg PO Q6H PRN PRN Reason: Headache/Pain Mild Scale (1-3) Al Hydroxide/Mg Hydroxide (Magnesium Hydrox/Alum Hydrox 30 Ml Oral.Susp) 30 ml PO Q6H PRN PRN Reason: Heartburn/Nausea Albuterol Sulfate (Albuterol Sulfate 90 Mcg 8 Gm Inhaler) 2 puff INHALE RQ4H PRN PRN Reason: Shortness of Breath Last Admin: 05/25/24 10:43 Dose: 2 puff Atenolol (Atenolol 25 Mg Tablet) 25 mg PO DAILY [facility]; Protocol Last Admin: 05/25/24 08:43 Dose: 25 mg Atorvastatin Calcium (Atorvastatin Calcium 40 Mg Tablet) 40 mg PO DAILY [facility] Last Admin: 05/25/24 08:44 Dose: 40 mg Betamethasone Dipropion Augmented (Betamethasone Dip Aug 0.05% Cr 15 Gm Tube) 1 appl TOPICAL BID [facility]; Protocol Last Admin: 05/25/24 11:31 Dose: Not Given Bupropion HCl (Bupropion Hcl Xl 150 Mg Tab.Er.24h) 150 mg PO DAILY [facility] Last Admin: 05/25/24 08:44 Dose: 150 mg Docusate Sodium (Docusate Sodium 100 Mg Capsule) 100 mg PO BEDTIME [facility] Last Admin: 05/24/24 21:33 Dose: 100 mg Doxycycline Monohydrate (Doxycycline Monohydrate 100 Mg Capsule) 100 mg PO Q12H [facility] Stop: 06/02/24 09:16 Last Admin: 05/25/24 08:43 Dose: 100 mg Escitalopram Oxalate (Escitalopram Oxalate 20 Mg Tablet) 20 mg PO DAILY [facility] Last Admin: 05/25/24 08:44 Dose: 20 mg Ferrous Sulfate (Ferrous Sulfate 324 Mg Tablet.Dr) 324 mg PO DAILY [facility] Last Admin: 05/25/24 08:44 Dose: 324 mg Hydroxyzine HCl (Hydroxyzine Hcl 25 Mg Tablet) 25 mg PO Q6H PRN PRN Reason: Anxiety Last Admin: 05/21/24 21:05 Dose: 25 mg Insulin Glargine (Insulin Glargine,Hum.Rec.Anlog 100 Unit/Ml 10 Ml Vial) 20 unit SUBCUT DAILY [facility] Last Admin: 05/25/24 08:44 Dose: 20 unit Magnesium Hydroxide (Milk Of Magnesia 30 Ml Oral.Susp) 30 ml PO DAILY PRN PRN Reason: Constipation Meclizine HCl (Meclizine Hcl 25 Mg Tablet) 25 mg PO TID PRN PRN Reason: dizziness Metformin HCl (Metformin Hcl 1,000 Mg Tablet) 1,000 mg PO BID [facility] Last Admin: 05/25/24 08:44 Dose: 1,000 mg Multi-Ingred Cream/Lotion/Oil/Oint (Mineral Oil/Petrolatum,White 106 Gm Tube) 1 appl TOPICAL TID [facility]; Protocol Nicotine (Nicotine 21 Mg Patch.Td24) 21 mg TRANSDERMA DAILY PRN PRN Reason: nicotine cravings Nicotine Polacrilex (Nicotine Polacrilex 2 Mg Gum) 4 mg BUCCAL Q2H PRN PRN Reason: Nicotine Cravings Pt Own (Act Dry Mouth Gum 1 Piece Of Gum) 1 piece of gum PO TID PRN PRN Reason: dry mouth Omeprazole (Omeprazole 40 Mg Capsule.Dr) 40 mg PO DAILY@0630 [facility] Last Admin: 05/25/24 07:12 Dose: 40 mg Quetiapine Fumarate (Quetiapine Fumarate 25 Mg Tablet) 12.5 mg PO BID [facility] Saliva Substitute (Dry Mouth [place] 60 Ml Ald[place]) 1 spray MUCOUS MEM Q2H PRN PRN Reason: Dry Mouth Last Admin: 05/25/24 11:30 Dose: 1 spray Tamsulosin HCl (Tamsulosin Hcl 0.4 Mg Capsule) 0.4 mg PO BEDTIME [facility] Last Admin: 05/24/24 21:33 Dose: 0.4 mg Thiamine HCl (Thiamine Hcl 100 Mg Tablet) 100 mg PO DAILY [facility] Last Admin: 05/25/24 08:44 Dose: 100 mg Trazodone HCl (Trazodone Hcl 50 Mg Tablet) 50 mg PO BEDTIME PRN PRN Reason: sleep Last Admin: 05/22/24 22:57 Dose: 50 mg Vitamin D (Cholecalciferol (Vitamin D3) 25 Mcg Tablet) 50 mcg PO DAILY [facility] Last Admin: 05/25/24 08:44 Dose: 50 mcg Allergies Allergies Allergy/AdvReac Type Severity Reaction Status Date / Time pollen extracts [POLLEN] Allergy Mild RUNNY NOSE Verified 05/17/24 14:27 cat dander [CATS] Allergy Unknown UNKNOWN Verified 05/17/24 14:27 dog dander [DOGS] Allergy Unknown UNKNOWN Verified 05/17/24 14:27 mold [MOLD] Allergy Unknown UNKNOWN Verified 05/17/24 14:27 Assessment & Plan Assessment & Plan (1) Visual hallucination: Status: Acute Code(s): R44.1 - Visual hallucinations (2) Recurrent major depression: Status: Acute Code(s): F33.9 - Major depressive disorder, recurrent, unspecified (3) Suicidal ideation: Status: Acute Code(s): R45.851 - Suicidal ideations (4) Auditory hallucinations: Status: Acute Code(s): R44.0 - Auditory hallucinations Plan 05/20/24: Thiamine 100 mg daily Lactulose 20gm x 1 Ammonia repeat on 05/23/24 Seroquel 12.5 mg tid 05/21 Patient reports that he is feeling little better. Says AH is almost gone. He did have an intrusive thought about hurting himself however this was ego- dystonic and he has no actual feelings or desire for suicide. He came out of the room to be around other people because of the thought. Fish Machine Feeder talked somewhat about OCD however patient said that he has never had intrusive thoughts before 2 weeks ago. Since patient is starting to feel better and AH relieved, patient agreed to remain on current medication regimen for now --Later patient showed injury from a year ago left torso under left pectoral muscle where he fell was punctured by a nail; said it irritates him and he has been itching it which has caused some scarring. Patient asked for some Tegaderm to help resist itching 05/22 mood better; no AH today; slept well; amenable to continuing treatment plan 05/23 Decrease Seroquel to 12.5 mg daily Hospitalist consult L chest wound Wound care consult, L chest wound Colace 100 mg daily Dry mouth spray prn 05/25 Increase Seroquel to 12.5 mg bid Reason for continued inpatient stay Substantial Risk for: rapid decompensation Time Spent With Patient Time: Total time managing care of this patient today ____ minutes.
[2024-05-25] MEDS: Betamethasone Dip Aug 0.05% Cr 15 GM TUBE 1 APPL TOPICAL (19:06)
[2024-05-25 21:11] LABS: Glucose, Whole Blood 115 mg/dL (60-115)
[2024-05-25] MEDS: Docusate Sodium 100 MG CAPSULE PO (21:15)
[2024-05-25] MEDS: Tamsulosin HCL 0.4 MG CAPSULE PO (21:15)
[2024-05-25] MEDS: traZODone HCL 50 MG TABLET PO (21:15)
[2024-05-25 22:15] VITALS: O2SAT 96
[2024-05-26 07:00] VITALS: BMI 47.6
[2024-05-26 08:00] VITALS: BP 112/56; PULSE 63; RESP 18; O2SAT 94
[2024-05-26 08:40] LABS: Glucose, Whole Blood 112 mg/dL (60-115)
[2024-05-26] MEDS: buPROPion HCl XL 150 MG TAB.ER.24H PO (08:47)
[2024-05-26] MEDS: Doxycycline Monohydrate 100 MG CAPSULE PO ×2 (08:47→22:04)
[2024-05-26] MEDS: QUEtiapine Fumarate 25 MG TABLET 12.5 MG PO ×2 (08:47→22:03)
[2024-05-26] MEDS: Escitalopram Oxalate 20 MG TABLET PO (08:47)
[2024-05-26] MEDS: metFORMIN HCl 1,000 MG TABLET 1000 MG PO ×2 (08:47→22:03)
[2024-05-26 08:48] VITALS: BP 112/56; PULSE 63
[2024-05-26] MEDS: Omeprazole 40 MG CAPSULE.DR PO (08:48)
[2024-05-26] MEDS: Thiamine HCL 100 MG TABLET PO (08:48)
[2024-05-26] MEDS: Atorvastatin Calcium 40 MG TABLET PO (08:48)
[2024-05-26] MEDS: Cholecalciferol (Vitamin D3) 25 MCG TABLET 50 MCG PO (08:48)
[2024-05-26] MEDS: Ferrous Sulfate 324 MG TABLET.DR PO (08:48)
[2024-05-26] MEDS: atenoloL 25 MG TABLET PO (08:48)
[2024-05-26] MEDS: Insulin Glargine,Hum.rec.anlog 100 UNIT/ML 10 ML VIAL 20 UNIT SUBCUT (08:50)
[2024-05-26] MEDS: Mineral Oil/Petrolatum,White 106 GM Tube 1 APPL TOPICAL (08:52)
[2024-05-26] MEDS: Betamethasone Dip Aug 0.05% Cr 15 GM TUBE 1 APPL TOPICAL (08:52)
[2024-05-26] MEDS: Albuterol Sulfate 90 MCG 8 GM INHALER 2 PUFF INHALE ×3 (09:05→22:54)
[2024-05-26] MEDS: Dry Mouth Spray 60 ML SPRAY 1 SPRAY MUCOUS MEM (11:29)
--- NOTE | 2024-05-26 18:23 | HO.PSYCHPN ---
Subjective Subjective Date of Service: 05/26/24 Reason For Visit: Depression Subjective Notes: Conditional Voluntary Healthcare Proxy: No Guardianship: No Medical Problems Affecting Mental Status: No Interim History: Planning discharge for 05/30 Agrees to referral to [facility] and [facility] for therapy. Asks that meds be sent to [facility] [address] Plans to use his last few days in groups, becoming more comfortable talking with the group, because I feel it does help me, it just scares me. Medication Compliance: Yes Side effects from medications: No Attending Groups: Yes Review of Systems Acute medical concerns: No Medical Review of Systems: unchanged Review of Systems Review of Systems Denies Chest wound healing Mental Status Exam Mental Status Exam Patient Appearance: Appropriate Patient Orientation: Person, Place, Time and Situation Level of Consciousness: Alert Patient Behavior: Talkative and Good Eye Contact Mood Description: Apprehensive Affect Description: Apprehensive Patient Cognition Impaired: No Ability to Follow Directions: Good Speech Pattern: Spontaneous Speech Memory Description: Episodic Impaired Hallucinations: None Delusions: Not Present Thought Process: Rumination Thought Content: positive for Circumstantial Judgement: Good Diagnostics Vital Signs (24Hr): Vital Signs - 24 hr 05/25/24 22:15 05/26/24 08:00 05/26/24 08:48 Pulse Rate 63 63 Respiratory Rate 18 Blood Pressure 112/56 L 112/56 L Pulse Oximetry 96 94 Oxygen Delivery Method Room Air Room Air BMI result Body Mass Index 47.6 Labs 05/17/24 15:21 05/24/24 08:33 Labs: Laboratory Results - last 48 hr 05/24/24 05/25/24 05/25/24 21:04 08:03 21:07 POC Glucose 112 100 115 05/26/24 08:26 POC Glucose 112 Medications Medications Current Medications Acetaminophen (Acetaminophen 325 Mg Tablet) 650 mg PO Q6H PRN PRN Reason: Headache/Pain Mild Scale (1-3) Al Hydroxide/Mg Hydroxide (Magnesium Hydrox/Alum Hydrox 30 Ml Oral.Susp) 30 ml PO Q6H PRN PRN Reason: Heartburn/Nausea Albuterol Sulfate (Albuterol Sulfate 90 Mcg 8 Gm Inhaler) 2 puff INHALE RQ4H PRN PRN Reason: Shortness of Breath Last Admin: 05/26/24 18:00 Dose: 2 puff Atenolol (Atenolol 25 Mg Tablet) 25 mg PO DAILY [facility]; Protocol Last Admin: 05/26/24 08:48 Dose: 25 mg Atorvastatin Calcium (Atorvastatin Calcium 40 Mg Tablet) 40 mg PO DAILY [facility]S [facility] Last Admin: 05/26/24 08:48 Dose: 40 mg Betamethasone Dipropion Augmented (Betamethasone Dip Aug 0.05% Cr 15 Gm Tube) 1 appl TOPICAL BID [facility] 234 BEDS AT [facility]; Protocol Last Admin: 05/26/24 08:52 Dose: 1 appl Bupropion HCl (Bupropion Hcl Xl 150 Mg Tab.Er.24h) 150 mg PO DAILY [facility] 234 BEDS AT [facility] Last Admin: 05/26/24 08:47 Dose: 150 mg Docusate Sodium (Docusate Sodium 100 Mg Capsule) 100 mg PO BEDTIME COUNTS [facility]CLUDE 234 BEDS AT [facility] Last Admin: 05/25/24 21:15 Dose: 100 mg Doxycycline Monohydrate (Doxycycline Monohydrate 100 Mg Capsule) 100 mg PO Q12H COUNTS [facility]CLUDE 234 BEDS AT [facility] Stop: 06/02/24 09:16 Last Admin: 05/26/24 08:47 Dose: 100 mg Escitalopram Oxalate (Escitalopram Oxalate 20 Mg Tablet) 20 mg PO DAILY [facility] 234 [facility]S [facility] Last Admin: 05/26/24 08:47 Dose: 20 mg Ferrous Sulfate (Ferrous Sulfate 324 Mg Tablet.Dr) 324 mg PO DAILY [facility]S [facility] 234 B[facility]S AT [facility] Last Admin: 05/26/24 08:48 Dose: 324 mg Hydroxyzine HCl (Hydroxyzine Hcl 25 Mg Tablet) 25 mg PO Q6H PRN PRN Reason: Anxiety Last Admin: 05/21/24 21:05 Dose: 25 mg Insulin Glargine (Insulin Glargine,Hum.Rec.Anlog 100 Unit/Ml 10 Ml Vial) 20 unit SUBCUT DAILY [facility] 234 B[facility]S AT [facility] Last Admin: 05/26/24 08:50 Dose: 20 unit Magnesium Hydroxide (Milk Of Magnesia 30 Ml Oral.Susp) 30 ml PO DAILY PRN PRN Reason: Constipation Meclizine HCl (Meclizine Hcl 25 Mg Tablet) 25 mg PO TID PRN PRN Reason: dizziness Metformin HCl (Metformin Hcl 1,000 Mg Tablet) 1,000 mg PO BID [facility]S [facility] 234 BEDS AT [facility] Last Admin: 05/26/24 08:47 Dose: 1,000 mg Multi-Ingred Cream/Lotion/Oil/Oint (Mineral Oil/Petrolatum,White 106 Gm Tube) 1 appl TOPICAL TID COUNTS [facility]CLUDE 234 BEDS AT [facility]; Protocol Last Admin: 05/26/24 16:07 Dose: Not Given Nicotine (Nicotine 21 Mg Patch.Td24) 21 mg TRANSDERMA DAILY PRN PRN Reason: nicotine cravings Nicotine Polacrilex (Nicotine Polacrilex 2 Mg Gum) 4 mg BUCCAL Q2H PRN PRN Reason: Nicotine Cravings Pt Own (Act Dry Mouth Gum 1 Piece Of Gum) 1 piece of gum PO TID PRN PRN Reason: dry mouth Omeprazole (Omeprazole 40 Mg Capsule.Dr) 40 mg PO DAILY@0630 COUNTS [facility]CLUDE 234 BEDS AT [facility] Last Admin: 05/26/24 08:48 Dose: 40 mg Quetiapine Fumarate (Quetiapine Fumarate 25 Mg Tablet) 12.5 mg PO BID COUNTS [facility]CLUDE 234 BEDS AT [facility] Last Admin: 05/26/24 08:47 Dose: 12.5 mg Saliva Substitute (Dry Mouth [place] 60 Ml [place]) 1 spray MUCOUS MEM Q2H PRN PRN Reason: Dry Mouth Last Admin: 05/26/24 11:29 Dose: 1 spray Tamsulosin HCl (Tamsulosin Hcl 0.4 Mg Capsule) 0.4 mg PO BEDTIME COUNTS [facility]CLUDE 234 BEDS AT [facility] Last Admin: 05/25/24 21:15 Dose: 0.4 mg Thiamine HCl (Thiamine Hcl 100 Mg Tablet) 100 mg PO DAILY [facility]S [facility] 234 BEDS AT [facility] Last Admin: 05/26/24 08:48 Dose: 100 mg Trazodone HCl (Trazodone Hcl 50 Mg Tablet) 50 mg PO BEDTIME PRN PRN Reason: sleep Last Admin: 05/25/24 21:15 Dose: 50 mg Vitamin D (Cholecalciferol (Vitamin D3) 25 Mcg Tablet) 50 mcg PO DAILY [facility]S [facility]CLUDE 234 BEDS AT [facility] Last Admin: 05/26/24 08:48 Dose: 50 mcg Allergies Allergies Allergy/AdvReac Type Severity Reaction Status Date / Time pollen extracts [POLLEN] Allergy Mild RUNNY NOSE Verified 05/17/24 14:27 cat dander [CATS] Allergy Unknown UNKNOWN Verified 05/17/24 14:27 dog dander [DOGS] Allergy Unknown UNKNOWN Verified 05/17/24 14:27 mold [MOLD] Allergy Unknown UNKNOWN Verified 05/17/24 14:27 Assessment & Plan Assessment & Plan (1) Visual hallucination: Status: Acute Code(s): R44.1 - Visual hallucinations (2) Recurrent major depression: Status: Acute Code(s): F33.9 - Major depressive disorder, recurrent, unspecified (3) Suicidal ideation: Status: Acute Code(s): R45.851 - Suicidal ideations (4) Auditory hallucinations: Status: Acute Code(s): R44.0 - Auditory hallucinations Plan 05/20/24: Thiamine 100 mg daily Lactulose 20gm x 1 Ammonia repeat on 05/23/24 Seroquel 12.5 mg tid 05/21 Patient reports that he is feeling little better. Says AH is almost gone. He did have an intrusive thought about hurting himself however this was ego-dystonic and he has no actual feelings or desire for suicide. He came out of the room to be around other people because of the thought. Dtp Operator talked somewhat about OCD however patient said that he has never had intrusive thoughts before 2 weeks ago. Since patient is starting to feel better and AH relieved, patient agreed to remain on current medication regimen for now --Later patient showed injury from a year ago left torso under left pectoral muscle where he fell was punctured by a nail; said it irritates him and he has been itching it which has caused some scarring. Patient asked for some Tegaderm to help resist itching 05/22 mood better; no AH today; slept well; amenable to continuing treatment plan 05/23 Decrease Seroquel to 12.5 mg daily Hospitalist consult L chest wound Wound care consult, L chest wound Colace 100 mg daily Dry mouth spray prn 05/26 Continue tx Reason for continued inpatient stay Substantial Risk for: rapid decompensation Time Spent With Patient Time: Total time managing care of this patient today ____ minutes.
[2024-05-26 20:00] VITALS: BP 122/63; PULSE 74; RESP 16; TEMP 36.8; O2SAT 94
[2024-05-26] MEDS: Docusate Sodium 100 MG CAPSULE PO (22:03)
[2024-05-26 22:04] LABS: Glucose, Whole Blood 135 mg/dL (60-115)
[2024-05-26] MEDS: Tamsulosin HCL 0.4 MG CAPSULE PO (22:04)
[2024-05-26] MEDS: traZODone HCL 50 MG TABLET PO (22:04)
[2024-05-27 08:00] VITALS: BP 138/74; PULSE 71; RESP 18; TEMP 36.4; O2SAT 93
[2024-05-27 08:04] LABS: Glucose, Whole Blood 94 mg/dL (60-115)
[2024-05-27] MEDS: Omeprazole 40 MG CAPSULE.DR PO (08:57)
[2024-05-27] MEDS: Cholecalciferol (Vitamin D3) 25 MCG TABLET 50 MCG PO (08:57)
[2024-05-27] MEDS: Ferrous Sulfate 324 MG TABLET.DR PO (08:58)
[2024-05-27] MEDS: Doxycycline Monohydrate 100 MG CAPSULE PO ×2 (08:58→21:02)
[2024-05-27] MEDS: Thiamine HCL 100 MG TABLET PO (08:58)
[2024-05-27] MEDS: metFORMIN HCl 1,000 MG TABLET 1000 MG PO ×2 (08:58→21:02)
[2024-05-27] MEDS: Atorvastatin Calcium 40 MG TABLET PO (08:58)
[2024-05-27] MEDS: Escitalopram Oxalate 20 MG TABLET PO (08:58)
[2024-05-27] MEDS: atenoloL 25 MG TABLET PO (08:58)
[2024-05-27] MEDS: buPROPion HCl XL 150 MG TAB.ER.24H PO (08:58)
[2024-05-27] MEDS: QUEtiapine Fumarate 25 MG TABLET 12.5 MG PO ×2 (08:59→21:02)
[2024-05-27] MEDS: Insulin Glargine,Hum.rec.anlog 100 UNIT/ML 10 ML VIAL 20 UNIT SUBCUT (09:01)
[2024-05-27] MEDS: Albuterol Sulfate 90 MCG 8 GM INHALER 2 PUFF INHALE (09:40)
--- NOTE | 2024-05-27 10:01 | HO.PSYCHPN ---
Subjective Subjective Date of Service: 05/27/24 Reason For Visit: Depression Subjective Notes: Conditional Voluntary Healthcare Proxy: No Guardianship: No Medical Problems Affecting Mental Status: No Interim History: Jasbir reports feeling well today. Preparing for discharge No current questions or concerns when we met. I am doing these groups . Medication Compliance: Yes Side effects from medications: No Attending Groups: Yes Review of Systems Acute medical concerns: No Medical Review of Systems: unchanged Review of Systems Review of Systems Denies Chest wound healing Mental Status Exam Mental Status Exam Patient Appearance: Appropriate Patient Orientation: Person, Place, Time and Situation Level of Consciousness: Alert Patient Behavior: Talkative and Good Eye Contact Mood Description: Appropriate Affect Description: Appropriate Patient Cognition Impaired: No Ability to Follow Directions: Good Speech Pattern: Spontaneous Speech Memory Description: Episodic Impaired Hallucinations: None Delusions: Not Present Thought Content: positive for Circumstantial Judgement: Good Diagnostics Vital Signs (24Hr): Vital Signs - 24 hr 05/26/24 20:00 Temperature 98.3 F Pulse Rate 74 Respiratory Rate 16 Blood Pressure 122/63 Pulse Oximetry 94 Oxygen Delivery Method Room Air BMI result Body Mass Index 47.6 Labs 05/17/24 15:21 05/24/24 08:33 Labs: Laboratory Results - last 48 hr 05/25/24 05/26/24 05/26/24 21:07 08:26 21:59 POC Glucose 115 112 135 H 05/27/24 07:57 POC Glucose 94 Medications Medications Current Medications Acetaminophen (Acetaminophen 325 Mg Tablet) 650 mg PO Q6H PRN PRN Reason: Headache/Pain Mild Scale (1-3) Al Hydroxide/Mg Hydroxide (Magnesium Hydrox/Alum Hydrox 30 Ml Oral.Susp) 30 ml PO Q6H PRN PRN Reason: Heartburn/Nausea Albuterol Sulfate (Albuterol Sulfate 90 Mcg 8 Gm Inhaler) 2 puff INHALE RQ4H PRN PRN Reason: Shortness of Breath Last Admin: 05/27/24 09:40 Dose: 2 puff Atenolol (Atenolol 25 Mg Tablet) 25 mg PO DAILY [facility]; Protocol Last Admin: 05/27/24 08:58 Dose: 25 mg Atorvastatin Calcium (Atorvastatin Calcium 40 Mg Tablet) 40 mg PO DAILY [facility] Last Admin: 05/27/24 08:58 Dose: 40 mg Betamethasone Dipropion Augmented (Betamethasone Dip Aug 0.05% Cr 15 Gm Tube) 1 appl TOPICAL BID [facility]; Protocol Last Admin: 05/26/24 22:55 Dose: Not Given Bupropion HCl (Bupropion Hcl Xl 150 Mg Tab.Er.24h) 150 mg PO DAILY [facility] Last Admin: 05/27/24 08:58 Dose: 150 mg Docusate Sodium (Docusate Sodium 100 Mg Capsule) 100 mg PO BEDTIME [facility] Last Admin: 05/26/24 22:03 Dose: 100 mg Doxycycline Monohydrate (Doxycycline Monohydrate 100 Mg Capsule) 100 mg PO Q12H [facility] Stop: 06/02/24 09:16 Last Admin: 05/27/24 08:58 Dose: 100 mg Escitalopram Oxalate (Escitalopram Oxalate 20 Mg Tablet) 20 mg PO DAILY [facility] Last Admin: 05/27/24 08:58 Dose: 20 mg Ferrous Sulfate (Ferrous Sulfate 324 Mg Tablet.Dr) 324 mg PO DAILY [facility] Last Admin: 05/27/24 08:58 Dose: 324 mg Hydroxyzine HCl (Hydroxyzine Hcl 25 Mg Tablet) 25 mg PO Q6H PRN PRN Reason: Anxiety Last Admin: 05/21/24 21:05 Dose: 25 mg Insulin Glargine (Insulin Glargine,Hum.Rec.Anlog 100 Unit/Ml 10 Ml Vial) 20 unit SUBCUT DAILY [facility] Last Admin: 05/27/24 09:01 Dose: 20 unit Magnesium Hydroxide (Milk Of Magnesia 30 Ml Oral.Susp) 30 ml PO DAILY PRN PRN Reason: Constipation Meclizine HCl (Meclizine Hcl 25 Mg Tablet) 25 mg PO TID PRN PRN Reason: dizziness Metformin HCl (Metformin Hcl 1,000 Mg Tablet) 1,000 mg PO BID [facility] Last Admin: 05/27/24 08:58 Dose: 1,000 mg Multi-Ingred Cream/Lotion/Oil/Oint (Mineral Oil/Petrolatum,White 106 Gm Tube) 1 appl TOPICAL TID [facility]; Protocol Last Admin: 05/26/24 22:55 Dose: Not Given Nicotine (Nicotine 21 Mg Patch.Td24) 21 mg TRANSDERMA DAILY PRN PRN Reason: nicotine cravings Nicotine Polacrilex (Nicotine Polacrilex 2 Mg Gum) 4 mg BUCCAL Q2H PRN PRN Reason: Nicotine Cravings Pt Own (Act Dry Mouth Gum 1 Piece Of Gum) 1 piece of gum PO TID PRN PRN Reason: dry mouth Omeprazole (Omeprazole 40 Mg Capsule.Dr) 40 mg PO DAILY@0630 [facility] Last Admin: 05/27/24 08:57 Dose: 40 mg Quetiapine Fumarate (Quetiapine Fumarate 25 Mg Tablet) 12.5 mg PO BID [facility] Last Admin: 05/27/24 08:59 Dose: 12.5 mg Saliva Substitute (Dry Mouth [place] 60 Ml [place]) 1 spray MUCOUS MEM Q2H PRN PRN Reason: Dry Mouth Last Admin: 05/26/24 11:29 Dose: 1 spray Tamsulosin HCl (Tamsulosin Hcl 0.4 Mg Capsule) 0.4 mg PO BEDTIME [facility] Last Admin: 05/26/24 22:04 Dose: 0.4 mg Thiamine HCl (Thiamine Hcl 100 Mg Tablet) 100 mg PO DAILY [facility] Last Admin: 05/27/24 08:58 Dose: 100 mg Trazodone HCl (Trazodone Hcl 50 Mg Tablet) 50 mg PO BEDTIME PRN PRN Reason: sleep Last Admin: 05/26/24 22:04 Dose: 50 mg Vitamin D (Cholecalciferol (Vitamin D3) 25 Mcg Tablet) 50 mcg PO DAILY [facility] Last Admin: 05/27/24 08:57 Dose: 50 mcg Allergies Allergies Allergy/AdvReac Type Severity Reaction Status Date / Time pollen extracts [POLLEN] Allergy Mild RUNNY NOSE Verified 05/17/24 14:27 cat dander [CATS] Allergy Unknown UNKNOWN Verified 05/17/24 14:27 dog dander [DOGS] Allergy Unknown UNKNOWN Verified 05/17/24 14:27 mold [MOLD] Allergy Unknown UNKNOWN Verified 05/17/24 14:27 Assessment & Plan Assessment & Plan (1) Visual hallucination: Status: Acute Code(s): R44.1 - Visual hallucinations (2) Recurrent major depression: Status: Acute Code(s): F33.9 - Major depressive disorder, recurrent, unspecified (3) Suicidal ideation: Status: Acute Code(s): R45.851 - Suicidal ideations (4) Auditory hallucinations: Status: Acute Code(s): R44.0 - Auditory hallucinations Plan 05/20/24: Thiamine 100 mg daily Lactulose 20gm x 1 Ammonia repeat on 05/23/24 Seroquel 12.5 mg tid 05/21 Patient reports that he is feeling little better. Says AH is almost gone. He did have an intrusive thought about hurting himself however this was ego-dystonic and he has no actual feelings or desire for suicide. He came out of the room to be around other people because of the thought. Automatic Pinsetter Mechanic talked somewhat about OCD however patient said that he has never had intrusive thoughts before 2 weeks ago. Since patient is starting to feel better and AH relieved, patient agreed to remain on current medication regimen for now --Later patient showed injury from a year ago left torso under left pectoral muscle where he fell was punctured by a nail; said it irritates him and he has been itching it which has caused some scarring. Patient asked for some Tegaderm to help resist itching 05/22 mood better; no AH today; slept well; amenable to continuing treatment plan 05/23 Decrease Seroquel to 12.5 mg daily Hospitalist consult L chest wound Wound care consult, L chest wound Colace 100 mg daily Dry mouth spray prn 05/27 Continue tx. Reason for continued inpatient stay Substantial Risk for: rapid decompensation Time Spent With Patient Time: Total time managing care of this patient today ____ minutes.
[2024-05-27] MEDS: Dry Mouth Spray 60 ML SPRAY 1 SPRAY MUCOUS MEM (13:46)
[2024-05-27 20:00] VITALS: BP 135/60; PULSE 79; RESP 15; TEMP 36.1; O2SAT 99
[2024-05-27] MEDS: Tamsulosin HCL 0.4 MG CAPSULE PO (21:01)
[2024-05-27] MEDS: traZODone HCL 50 MG TABLET PO (21:02)
[2024-05-27] MEDS: Docusate Sodium 100 MG CAPSULE PO (21:02)
[2024-05-27 21:16] LABS: Glucose, Whole Blood 129 mg/dL (60-115)
[2024-05-28] MEDS: Albuterol Sulfate 90 MCG 8 GM INHALER 2 PUFF INHALE ×3 (05:16→21:45)
[2024-05-28] MEDS: Omeprazole 40 MG CAPSULE.DR PO (06:55)
[2024-05-28 08:17] LABS: Glucose, Whole Blood 104 mg/dL (60-115)
[2024-05-28 08:39] VITALS: BP 119/62; PULSE 64; RESP 16; TEMP 36.9; O2SAT 94
[2024-05-28] MEDS: Thiamine HCL 100 MG TABLET PO (08:52)
[2024-05-28] MEDS: buPROPion HCl XL 150 MG TAB.ER.24H PO (08:52)
[2024-05-28] MEDS: Insulin Glargine,Hum.rec.anlog 100 UNIT/ML 10 ML VIAL 20 UNIT SUBCUT (08:52)
[2024-05-28] MEDS: Cholecalciferol (Vitamin D3) 25 MCG TABLET 50 MCG PO (08:53)
[2024-05-28] MEDS: Ferrous Sulfate 324 MG TABLET.DR PO (08:53)
[2024-05-28] MEDS: Atorvastatin Calcium 40 MG TABLET PO (08:53)
[2024-05-28] MEDS: Doxycycline Monohydrate 100 MG CAPSULE PO ×2 (08:53→21:28)
[2024-05-28] MEDS: atenoloL 25 MG TABLET PO (08:53)
[2024-05-28] MEDS: QUEtiapine Fumarate 25 MG TABLET 12.5 MG PO ×2 (08:53→21:28)
[2024-05-28] MEDS: metFORMIN HCl 1,000 MG TABLET 1000 MG PO ×2 (08:53→21:27)
[2024-05-28] MEDS: Escitalopram Oxalate 20 MG TABLET PO (08:53)
--- NOTE | 2024-05-28 10:27 | P.PNPSI_ITS ---
Subjective Subjective Date of Service: 05/28/24 Reason For Visit: Depression Subjective Notes: Conditional Voluntary Interim History: Patient was seen and discussed in rounds today. Records and plans were reviewed. He continues to have some mood fluctuations. Attending to ADLs. He is calm and cooperative. He is hoping for discharge soon. No SI. Somewhat disorganized at times. Eating and sleeping adequately. No changes were made today Review of Systems Review of Systems Yes all other systems are reviewed and are negative Mental Status Exam Mental Status Exam Narrative: In today's visit he is alert, oriented and pleasant. Normal speech. Moderate eye contact. Affect is constricted. No acute signs of psychosis. Reported to be disorganized. No SI. No AVH. Judgment is intact. Diagnostics Vital Signs (24Hr): Vital Signs - 24 hr 05/27/24 20:00 05/28/24 08:39 Temperature 96.9 F 98.5 F Pulse Rate 79 64 Respiratory Rate 15 16 Blood Pressure 135/60 119/62 Pulse Oximetry 99 94 Oxygen Delivery Method Room Air BMI result Body Mass Index 47.6 Labs 05/17/24 15:21 05/24/24 08:33 Labs: Laboratory Results - last 48 hr 05/26/24 05/27/24 05/27/24 21:59 07:57 21:12 POC Glucose 135 H 94 129 H 05/28/24 08:13 POC Glucose 104 Medications Medications Current Medications Acetaminophen (Acetaminophen 325 Mg Tablet) 650 mg PO Q6H PRN PRN Reason: Headache/Pain Mild Scale (1-3) Al Hydroxide/Mg Hydroxide (Magnesium Hydrox/Alum Hydrox 30 Ml Oral.Susp) 30 ml PO Q6H PRN PRN Reason: Heartburn/Nausea Albuterol Sulfate (Albuterol Sulfate 90 Mcg 8 Gm Inhaler) 2 puff INHALE RQ4H PRN PRN Reason: Shortness of Breath Last Admin: 05/28/24 05:16 Dose: 2 puff Atenolol (Atenolol 25 Mg Tablet) 25 mg PO DAILY [facility]; Protocol Last Admin: 05/28/24 08:53 Dose: 25 mg Atorvastatin Calcium (Atorvastatin Calcium 40 Mg Tablet) 40 mg PO DAILY [facility] Last Admin: 05/28/24 08:53 Dose: 40 mg Betamethasone Dipropion Augmented (Betamethasone Dip Aug 0.05% Cr 15 Gm Tube) 1 appl TOPICAL BID [facility]; Protocol Last Admin: 05/27/24 21:19 Dose: Not Given Bupropion HCl (Bupropion Hcl Xl 150 Mg Tab.Er.24h) 150 mg PO DAILY [facility] Last Admin: 05/28/24 08:52 Dose: 150 mg Docusate Sodium (Docusate Sodium 100 Mg Capsule) 100 mg PO BEDTIME [facility] Last Admin: 05/27/24 21:02 Dose: 100 mg Doxycycline Monohydrate (Doxycycline Monohydrate 100 Mg Capsule) 100 mg PO Q12H [facility] Stop: 06/02/24 09:16 Last Admin: 05/28/24 08:53 Dose: 100 mg Escitalopram Oxalate (Escitalopram Oxalate 20 Mg Tablet) 20 mg PO DAILY [facility] Last Admin: 05/28/24 08:53 Dose: 20 mg Ferrous Sulfate (Ferrous Sulfate 324 Mg Tablet.) 324 mg PO DAILY [facility] Last Admin: 05/28/24 08:53 Dose: 324 mg Hydroxyzine HCl (Hydroxyzine Hcl 25 Mg Tablet) 25 mg PO Q6H PRN PRN Reason: Anxiety Last Admin: 05/21/24 21:05 Dose: 25 mg Insulin Glargine (Insulin Glargine,Hum.Rec.Anlog 100 Unit/Ml 10 Ml Vial) 20 unit SUBCUT DAILY [facility] Last Admin: 05/28/24 08:52 Dose: 20 unit Magnesium Hydroxide (Milk Of Magnesia 30 Ml Oral.Susp) 30 ml PO DAILY PRN PRN Reason: Constipation Meclizine HCl (Meclizine Hcl 25 Mg Tablet) 25 mg PO TID PRN PRN Reason: dizziness Metformin HCl (Metformin Hcl 1,000 Mg Tablet) 1,000 mg PO BID [facility] Last Admin: 05/28/24 08:53 Dose: 1,000 mg Multi-Ingred Cream/Lotion/Oil/Oint (Mineral Oil/Petrolatum,White 106 Gm Tube) 1 appl TOPICAL TID [facility]; Protocol Last Admin: 05/27/24 21:19 Dose: Not Given Nicotine (Nicotine 21 Mg Patch.Td24) 21 mg TRANSDERMA DAILY PRN PRN Reason: nicotine cravings Nicotine Polacrilex (Nicotine Polacrilex 2 Mg Gum) 4 mg BUCCAL Q2H PRN PRN Reason: Nicotine Cravings Pt Own (Act Dry Mouth Gum 1 Piece Of Gum) 1 piece of gum PO TID PRN PRN Reason: dry mouth Omeprazole (Omeprazole 40 Mg Capsule.) 40 mg PO DAILY@0630 [facility] Last Admin: 05/28/24 06:55 Dose: 40 mg Quetiapine Fumarate (Quetiapine Fumarate 25 Mg Tablet) 12.5 mg PO BID [facility] Last Admin: 05/28/24 08:53 Dose: 12.5 mg Saliva Substitute (Dry Mouth [place] 60 Ml [place]) 1 spray MUCOUS MEM Q2H PRN PRN Reason: Dry Mouth Last Admin: 05/27/24 13:46 Dose: 1 spray Tamsulosin HCl (Tamsulosin Hcl 0.4 Mg Capsule) 0.4 mg PO BEDTIME [facility] Last Admin: 05/27/24 21:01 Dose: 0.4 mg Thiamine HCl (Thiamine Hcl 100 Mg Tablet) 100 mg PO DAILY [facility] Last Admin: 05/28/24 08:52 Dose: 100 mg Trazodone HCl (Trazodone Hcl 50 Mg Tablet) 50 mg PO BEDTIME PRN PRN Reason: sleep Last Admin: 05/27/24 21:02 Dose: 50 mg Vitamin D (Cholecalciferol (Vitamin D3) 25 Mcg Tablet) 50 mcg PO DAILY [facility] Last Admin: 05/28/24 08:53 Dose: 50 mcg Allergies Allergies Allergy/AdvReac Type Severity Reaction Status Date / Time pollen extracts [POLLEN] Allergy Mild RUNNY NOSE Verified 05/17/24 14:27 cat dander [CATS] Allergy Unknown UNKNOWN Verified 05/17/24 14:27 dog dander [DOGS] Allergy Unknown UNKNOWN Verified 05/17/24 14:27 mold [MOLD] Allergy Unknown UNKNOWN Verified 05/17/24 14:27 Assessment & Plan Assessment & Plan (1) Visual hallucination: Status: Acute Code(s): R44.1 - Visual hallucinations (2) Recurrent major depression: Status: Acute Code(s): F33.9 - Major depressive disorder, recurrent, unspecified (3) Suicidal ideation: Status: Acute Code(s): R45.851 - Suicidal ideations (4) Auditory hallucinations: Status: Acute Code(s): R44.0 - Auditory hallucinations Plan 05/20/24: Thiamine 100 mg daily Lactulose 20gm x 1 Ammonia repeat on 05/23/24 Seroquel 12.5 mg tid 05/21 Patient reports that he is feeling little better. Says AH is almost gone. He did have an intrusive thought about hurting himself however this was ego- dystonic and he has no actual feelings or desire for suicide. He came out of the room to be around other people because of the thought. Service Engineer talked somewhat about OCD however patient said that he has never had intrusive thoughts before 2 weeks ago. Since patient is starting to feel better and AH relieved, patient agreed to remain on current medication regimen for now --Later patient showed injury from a year ago left torso under left pectoral muscle where he fell was punctured by a nail; said it irritates him and he has been itching it which has caused some scarring. Patient asked for some Tegaderm to help resist itching 05/22 mood better; no AH today; slept well; amenable to continuing treatment plan 05/23 Decrease Seroquel to 12.5 mg daily Hospitalist consult L chest wound Wound care consult, L chest wound Colace 100 mg daily Dry mouth spray prn 05/27 Continue tx. 05/28/2024: Continue current regimen and plans Reason for continued inpatient stay Substantial Risk for: med/psych decompensation Time Spent With Patient Time: Total time managing care of this patient today ____ minutes.
[2024-05-28] MEDS: Betamethasone Dip Aug 0.05% Cr 15 GM TUBE 1 APPL TOPICAL (12:37)
[2024-05-28] MEDS: Mineral Oil/Petrolatum,White 106 GM Tube 1 APPL TOPICAL (16:20)
[2024-05-28 20:00] VITALS: BP 132/60; PULSE 66; TEMP 36.8; O2SAT 95
[2024-05-28 21:19] LABS: Glucose, Whole Blood 124 mg/dL (60-115)
[2024-05-28] MEDS: Tamsulosin HCL 0.4 MG CAPSULE PO (21:28)
[2024-05-28] MEDS: Docusate Sodium 100 MG CAPSULE PO (21:28)
[2024-05-28] MEDS: traZODone HCL 50 MG TABLET PO (21:28)
[2024-05-29] MEDS: Magnesium Hydrox/Alum Hydrox 30 ML ORAL.SUSP PO ×2 (00:42→15:45)
[2024-05-29] MEDS: Omeprazole 40 MG CAPSULE.DR PO (07:05)
[2024-05-29 08:14] LABS: Glucose, Whole Blood 89 mg/dL (60-115)
[2024-05-29 08:25] VITALS: BP 114/54; PULSE 67; RESP 16; TEMP 36.4; O2SAT 97
[2024-05-29] MEDS: Insulin Glargine,Hum.rec.anlog 100 UNIT/ML 10 ML VIAL 20 UNIT SUBCUT (08:33)
[2024-05-29 08:35] VITALS: BP 118/64; PULSE 78
[2024-05-29] MEDS: Thiamine HCL 100 MG TABLET PO (08:35)
[2024-05-29] MEDS: Escitalopram Oxalate 20 MG TABLET PO (08:35)
[2024-05-29] MEDS: buPROPion HCl XL 150 MG TAB.ER.24H PO (08:35)
[2024-05-29] MEDS: metFORMIN HCl 1,000 MG TABLET 1000 MG PO ×2 (08:35→21:09)
[2024-05-29] MEDS: Cholecalciferol (Vitamin D3) 25 MCG TABLET 50 MCG PO (08:35)
[2024-05-29] MEDS: atenoloL 25 MG TABLET PO (08:35)
[2024-05-29] MEDS: Doxycycline Monohydrate 100 MG CAPSULE PO ×2 (08:35→21:10)
[2024-05-29] MEDS: Atorvastatin Calcium 40 MG TABLET PO (08:35)
[2024-05-29] MEDS: Ferrous Sulfate 324 MG TABLET.DR PO (08:35)
[2024-05-29] MEDS: QUEtiapine Fumarate 25 MG TABLET 12.5 MG PO ×2 (08:36→21:09)
[2024-05-29] MEDS: Albuterol Sulfate 90 MCG 8 GM INHALER 2 PUFF INHALE ×2 (08:38→21:17)
[2024-05-29 08:48] VITALS: BP 127/62; PULSE 69
[2024-05-29] MEDS: Mineral Oil/Petrolatum,White 106 GM Tube 1 APPL TOPICAL (09:20)
--- NOTE | 2024-05-29 10:31 | HO.PSYCHPN ---
Subjective Subjective Date of Service: 05/29/24 Reason For Visit: Depression Subjective Notes: Conditional Voluntary Interim History: Patient was seen and discussed in rounds today. Records and plans were reviewed. He has been doing better and overall is calmer. Eating and sleeping well. Continues to endorse some depression and anxiety. More social. No SI. No AVH. And having fewer ?shadows?. No changes Review of Systems Review of Systems Yes all other systems are reviewed and are negative Mental Status Exam Mental Status Exam Narrative: In today's visit he is alert, oriented and pleasant. Normal speech. Moderate eye contact. Affect is constricted. No acute signs of psychosis. Reported to be disorganized. No SI. No AVH. Judgment is intact. Diagnostics Vital Signs (24Hr): Vital Signs - 24 hr 05/28/24 20:00 05/29/24 08:25 05/29/24 08:35 Temperature 98.2 F 97.6 F Pulse Rate 66 67 78 Respiratory Rate 16 Blood Pressure 132/60 114/54 L 118/64 Pulse Oximetry 95 97 Oxygen Delivery Method Room Air Room Air 05/29/24 08:48 Temperature Pulse Rate 69 Respiratory Rate Blood Pressure 127/62 Pulse Oximetry Oxygen Delivery Method BMI result Body Mass Index 47.6 Labs 05/17/24 15:21 05/24/24 08:33 Labs: Laboratory Results - last 48 hr 05/27/24 05/28/24 05/28/24 21:12 08:13 21:14 POC Glucose 129 H 104 124 H 05/29/24 08:07 POC Glucose 89 Medications Medications Current Medications Acetaminophen (Acetaminophen 325 Mg Tablet) 650 mg PO Q6H PRN PRN Reason: Headache/Pain Mild Scale (1-3) Al Hydroxide/Mg Hydroxide (Magnesium Hydrox/Alum Hydrox 30 Ml Oral.Susp) 30 ml PO Q6H PRN PRN Reason: Heartburn/Nausea Last Admin: 05/29/24 00:42 Dose: 30 ml Albuterol Sulfate (Albuterol Sulfate 90 Mcg 8 Gm Inhaler) 2 puff INHALE RQ4H PRN PRN Reason: Shortness of Breath Last Admin: 05/29/24 08:38 Dose: 2 puff Atenolol (Atenolol 25 Mg Tablet) 25 mg PO DAILY [facility]; Protocol Last Admin: 05/29/24 08:35 Dose: 25 mg Atorvastatin Calcium (Atorvastatin Calcium 40 Mg Tablet) 40 mg PO DAILY [facility] Last Admin: 05/29/24 08:35 Dose: 40 mg Betamethasone Dipropion Augmented (Betamethasone Dip Aug 0.05% Cr 15 Gm Tube) 1 appl TOPICAL BID [facility]; Protocol Last Admin: 05/29/24 08:36 Dose: Not Given Bupropion HCl (Bupropion Hcl Xl 150 Mg Tab.Er.24h) 150 mg PO DAILY [facility] Last Admin: 05/29/24 08:35 Dose: 150 mg Docusate Sodium (Docusate Sodium 100 Mg Capsule) 100 mg PO BEDTIME [facility] Last Admin: 05/28/24 21:28 Dose: 100 mg Doxycycline Monohydrate (Doxycycline Monohydrate 100 Mg Capsule) 100 mg PO Q12H [facility] Stop: 06/02/24 09:16 Last Admin: 05/29/24 08:35 Dose: 100 mg Escitalopram Oxalate (Escitalopram Oxalate 20 Mg Tablet) 20 mg PO DAILY [facility] Last Admin: 05/29/24 08:35 Dose: 20 mg Ferrous Sulfate (Ferrous Sulfate 324 Mg Tablet.Dr) 324 mg PO DAILY [facility] Last Admin: 05/29/24 08:35 Dose: 324 mg Hydroxyzine HCl (Hydroxyzine Hcl 25 Mg Tablet) 25 mg PO Q6H PRN PRN Reason: Anxiety Last Admin: 05/21/24 21:05 Dose: 25 mg Insulin Glargine (Insulin Glargine,Hum.Rec.Anlog 100 Unit/Ml 10 Ml Vial) 20 unit SUBCUT DAILY [facility] Last Admin: 05/29/24 08:33 Dose: 20 unit Magnesium Hydroxide (Milk Of Magnesia 30 Ml Oral.Susp) 30 ml PO DAILY PRN PRN Reason: Constipation Meclizine HCl (Meclizine Hcl 25 Mg Tablet) 25 mg PO TID PRN PRN Reason: dizziness Metformin HCl (Metformin Hcl 1,000 Mg Tablet) 1,000 mg PO BID [facility] Last Admin: 05/29/24 08:35 Dose: 1,000 mg Multi-Ingred Cream/Lotion/Oil/Oint (Mineral Oil/Petrolatum,White 106 Gm Tube) 1 appl TOPICAL TID [facility]; Protocol Last Admin: 05/29/24 09:20 Dose: 1 appl Nicotine (Nicotine 21 Mg Patch.Td24) 21 mg TRANSDERMA DAILY PRN PRN Reason: nicotine cravings Nicotine Polacrilex (Nicotine Polacrilex 2 Mg Gum) 4 mg BUCCAL Q2H PRN PRN Reason: Nicotine Cravings Pt Own (Act Dry Mouth Gum 1 Piece Of Gum) 1 piece of gum PO TID PRN PRN Reason: dry mouth Omeprazole (Omeprazole 40 Mg Capsule.Dr) 40 mg PO DAILY@0630 [facility] Last Admin: 05/29/24 07:05 Dose: 40 mg Quetiapine Fumarate (Quetiapine Fumarate 25 Mg Tablet) 12.5 mg PO BID [facility] Last Admin: 05/29/24 08:36 Dose: 12.5 mg Saliva Substitute (Dry Mouth [place] 60 Ml [place]) 1 spray MUCOUS MEM Q2H PRN PRN Reason: Dry Mouth Last Admin: 05/27/24 13:46 Dose: 1 spray Tamsulosin HCl (Tamsulosin Hcl 0.4 Mg Capsule) 0.4 mg PO BEDTIME [facility] Last Admin: 05/28/24 21:28 Dose: 0.4 mg Thiamine HCl (Thiamine Hcl 100 Mg Tablet) 100 mg PO DAILY [facility] Last Admin: 05/29/24 08:35 Dose: 100 mg Trazodone HCl (Trazodone Hcl 50 Mg Tablet) 50 mg PO BEDTIME PRN PRN Reason: sleep Last Admin: 05/28/24 21:28 Dose: 50 mg Vitamin D (Cholecalciferol (Vitamin D3) 25 Mcg Tablet) 50 mcg PO DAILY [facility] Last Admin: 05/29/24 08:35 Dose: 50 mcg Allergies Allergies Allergy/AdvReac Type Severity Reaction Status Date / Time pollen extracts [POLLEN] Allergy Mild RUNNY NOSE Verified 05/17/24 14:27 cat dander [CATS] Allergy Unknown UNKNOWN Verified 05/17/24 14:27 dog dander [DOGS] Allergy Unknown UNKNOWN Verified 05/17/24 14:27 mold [MOLD] Allergy Unknown UNKNOWN Verified 05/17/24 14:27 Assessment & Plan Assessment & Plan (1) Visual hallucination: Status: Acute Code(s): R44.1 - Visual hallucinations (2) Recurrent major depression: Status: Acute Code(s): F33.9 - Major depressive disorder, recurrent, unspecified (3) Suicidal ideation: Status: Acute Code(s): R45.851 - Suicidal ideations (4) Auditory hallucinations: Status: Acute Code(s): R44.0 - Auditory hallucinations Plan 1/10/25: Thiamine 100 mg daily Lactulose 20gm x 1 Ammonia repeat on 05/23/24 Seroquel 12.5 mg tid 05/21 Patient reports that he is feeling little better. Says AH is almost gone. He did have an intrusive thought about hurting himself however this was ego-dystonic and he has no actual feelings or desire for suicide. He came out of the room to be around other people because of the thought. Drilling Foreman talked somewhat about OCD however patient said that he has never had intrusive thoughts before 2 weeks ago. Since patient is starting to feel better and AH relieved, patient agreed to remain on current medication regimen for now --Later patient showed injury from a year ago left torso under left pectoral muscle where he fell was punctured by a nail; said it irritates him and he has been itching it which has caused some scarring. Patient asked for some Tegaderm to help resist itching 05/22 mood better; no AH today; slept well; amenable to continuing treatment plan 05/23 Decrease Seroquel to 12.5 mg daily Hospitalist consult L chest wound Wound care consult, L chest wound Colace 100 mg daily Dry mouth spray prn 05/27 Continue tx. 05/28/2024: Continue current regimen and plans 05/29/2024: Continue current regimen and plans Reason for continued inpatient stay Substantial Risk for: med/psych decompensation Time Spent With Patient Time: Total time managing care of this patient today ____ minutes.
[2024-05-29] MEDS: Betamethasone Dip Aug 0.05% Cr 15 GM TUBE 1 APPL TOPICAL (14:35)
[2024-05-29] MEDS: Dry Mouth Spray 60 ML SPRAY 1 SPRAY MUCOUS MEM (14:35)
[2024-05-29 19:56] VITALS: BP 142/66; PULSE 68; RESP 15; TEMP 36.6; O2SAT 95
[2024-05-29 21:08] LABS: Glucose, Whole Blood 152 mg/dL (60-115)
[2024-05-29] MEDS: Tamsulosin HCL 0.4 MG CAPSULE PO (21:09)
[2024-05-29] MEDS: traZODone HCL 50 MG TABLET PO (21:09)
[2024-05-29] MEDS: Docusate Sodium 100 MG CAPSULE PO (21:10)
[2024-05-30] MEDS: Omeprazole 40 MG CAPSULE.DR PO (06:52)
[2024-05-30 08:26] LABS: Glucose, Whole Blood 121 mg/dL (60-115)
[2024-05-30 08:50] VITALS: BP 127/60; PULSE 68; RESP 18; TEMP 36.3; O2SAT 93
[2024-05-30] MEDS: Atorvastatin Calcium 40 MG TABLET PO (08:50)
[2024-05-30] MEDS: QUEtiapine Fumarate 25 MG TABLET 12.5 MG PO (08:51)
[2024-05-30] MEDS: metFORMIN HCl 1,000 MG TABLET 1000 MG PO ×2 (08:51→21:58)
[2024-05-30] MEDS: Thiamine HCL 100 MG TABLET PO (08:51)
[2024-05-30] MEDS: Cholecalciferol (Vitamin D3) 25 MCG TABLET 50 MCG PO (08:51)
[2024-05-30] MEDS: Escitalopram Oxalate 20 MG TABLET PO (08:51)
[2024-05-30] MEDS: Ferrous Sulfate 324 MG TABLET.DR PO (08:51)
[2024-05-30] MEDS: Doxycycline Monohydrate 100 MG CAPSULE PO ×2 (08:51→21:59)
[2024-05-30] MEDS: atenoloL 25 MG TABLET PO (08:51)
[2024-05-30] MEDS: buPROPion HCl XL 150 MG TAB.ER.24H PO (08:51)
[2024-05-30] MEDS: Insulin Glargine,Hum.rec.anlog 100 UNIT/ML 10 ML VIAL 20 UNIT SUBCUT (08:54)
[2024-05-30] MEDS: Mineral Oil/Petrolatum,White 106 GM Tube 1 APPL TOPICAL (08:58)
[2024-05-30] MEDS: Albuterol Sulfate 90 MCG 8 GM INHALER 2 PUFF INHALE ×2 (09:17→23:01)
[2024-05-30] MEDS: Betamethasone Dip Aug 0.05% Cr 15 GM TUBE 1 APPL TOPICAL (09:46)
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
[2024-05-30 20:00] VITALS: BP 124/67; PULSE 61; TEMP 36.3; O2SAT 93
[2024-05-30 20:56] LABS: Glucose, Whole Blood 144 mg/dL (60-115)
[2024-05-30] MEDS: Tamsulosin HCL 0.4 MG CAPSULE PO (21:58)
[2024-05-30] MEDS: Docusate Sodium 100 MG CAPSULE PO (21:58)
[2024-05-30] MEDS: HaloperidoL 1 MG TABLET PO (21:59)
[2024-05-31] MEDS: Omeprazole 40 MG CAPSULE.DR PO (07:05)
[2024-05-31 07:56] LABS: Glucose, Whole Blood 104 mg/dL (60-115)
[2024-05-31 07:57] LABS: Ammonia 36 umol/L (13-55)
[2024-05-31 08:06] VITALS: BP 138/71; PULSE 60; TEMP 36.4; O2SAT 96
[2024-05-31] MEDS: Insulin Glargine,Hum.rec.anlog 100 UNIT/ML 10 ML VIAL 20 UNIT SUBCUT (08:23)
[2024-05-31] MEDS: metFORMIN HCl 1,000 MG TABLET 1000 MG PO ×2 (08:24→21:55)
[2024-05-31] MEDS: Thiamine HCL 100 MG TABLET PO (08:24)
[2024-05-31] MEDS: Ferrous Sulfate 324 MG TABLET.DR PO (08:24)
[2024-05-31] MEDS: HaloperidoL 1 MG TABLET PO ×2 (08:24→21:55)
[2024-05-31] MEDS: atenoloL 25 MG TABLET PO (08:24)
[2024-05-31] MEDS: Atorvastatin Calcium 40 MG TABLET PO (08:24)
[2024-05-31] MEDS: Doxycycline Monohydrate 100 MG CAPSULE PO ×2 (08:24→21:55)
[2024-05-31] MEDS: Cholecalciferol (Vitamin D3) 25 MCG TABLET 50 MCG PO (08:24)
[2024-05-31] MEDS: buPROPion HCl XL 150 MG TAB.ER.24H PO (08:24)
[2024-05-31] MEDS: Escitalopram Oxalate 20 MG TABLET PO (08:24)
[2024-05-31] MEDS: Mineral Oil/Petrolatum,White 106 GM Tube 1 APPL TOPICAL (08:27)
[2024-05-31] MEDS: Betamethasone Dip Aug 0.05% Cr 15 GM TUBE 1 APPL TOPICAL (08:27)
[2024-05-31] MEDS: Albuterol Sulfate 90 MCG 8 GM INHALER 2 PUFF INHALE ×3 (10:14→22:45)
--- NOTE | 2024-05-31 10:29 | P.PNPSI_ITS ---
Subjective Subjective Date of Service: 05/31/24 Reason For Visit: Depression Subjective Notes: Conditional Voluntary Interim History: Pt reports last night and today has been better but over the weekend he was taken back by nightmare he had and then woke up feeling like hurting himself. He denies SI/HI. No overt psychosis or delusional content noted or reported. He is visible on the unit, social with select peers. No behavioral concerns. Medication Compliance: Yes Review of Systems Review of Systems SIBS reported over the weekend. Yes all other systems are reviewed and are negative Constitutional: Denies chills, Denies fever(s) and Denies headache(s) Eyes: Denies change in vision Denies headache(s) Respiratory: Denies cough Gastrointestinal: Denies diarrhea, Denies nausea and Denies vomiting Skin/Breast: Reports as per HPI Denies confusion and Denies headache(s) Psychiatric: Denies confusion Hematologic/Lymphatic: Denies easy bleeding and Denies easy bruising Mental Status Exam Mental Status Exam Patient Appearance: Fatigued Patient Orientation: Person, Place, Time and Situation Level of Consciousness: Alert Patient Behavior: Talkative, Cooperative, Anxious, Distractible and Good Eye Contact Mood Description: Depressed Affect Description: Constricted and Flat Patient Cognition Impaired: No Ability to Follow Directions: Good Speech Pattern: Spontaneous Speech Memory Description: Episodic Impaired Diagnostics Vital Signs (24Hr): Vital Signs - 24 hr 05/30/24 20:00 05/31/24 08:06 Temperature 97.3 F 97.6 F Pulse Rate 61 60 Blood Pressure 124/67 138/71 Pulse Oximetry 93 96 Oxygen Delivery Method Room Air Room Air BMI result Body Mass Index 47.6 Labs 05/17/24 15:21 05/24/24 08:33 Labs: Laboratory Results - last 48 hr 05/29/24 05/30/24 05/30/24 21:05 08:06 20:43 POC Glucose 152 H 121 H 144 H Ammonia 05/31/24 05/31/24 07:40 07:49 POC Glucose 104 Ammonia 36 Medications Medications Current Medications Acetaminophen (Acetaminophen 325 Mg Tablet) 650 mg PO Q6H PRN PRN Reason: Headache/Pain Mild Scale (1-3) Al Hydroxide/Mg Hydroxide (Magnesium Hydrox/Alum Hydrox 30 Ml Oral.Susp) 30 ml PO Q6H PRN PRN Reason: Heartburn/Nausea Last Admin: 05/29/24 15:45 Dose: 30 ml Albuterol Sulfate (Albuterol Sulfate 90 Mcg 8 Gm Inhaler) 2 puff INHALE RQ4H PRN PRN Reason: Shortness of Breath Last Admin: 05/31/24 10:14 Dose: 2 puff Atenolol (Atenolol 25 Mg Tablet) 25 mg PO DAILY [facility]; Protocol Last Admin: 05/31/24 08:24 Dose: 25 mg Atorvastatin Calcium (Atorvastatin Calcium 40 Mg Tablet) 40 mg PO DAILY [facility] Last Admin: 05/31/24 08:24 Dose: 40 mg Betamethasone Dipropion Augmented (Betamethasone Dip Aug 0.05% Cr 15 Gm Tube) 1 appl TOPICAL BID [facility]; Protocol Last Admin: 05/31/24 08:27 Dose: 1 appl Bupropion HCl (Bupropion Hcl Xl 150 Mg Tab.Er.24h) 150 mg PO DAILY [facility] Last Admin: 05/31/24 08:24 Dose: 150 mg Docusate Sodium (Docusate Sodium 100 Mg Capsule) 100 mg PO BEDTIME [facility] Last Admin: 05/30/24 21:58 Dose: 100 mg Doxycycline Monohydrate (Doxycycline Monohydrate 100 Mg Capsule) 100 mg PO Q12H [facility] Stop: 06/02/24 09:16 Last Admin: 05/31/24 08:24 Dose: 100 mg Escitalopram Oxalate (Escitalopram Oxalate 20 Mg Tablet) 20 mg PO DAILY [facility] Last Admin: 05/31/24 08:24 Dose: 20 mg Ferrous Sulfate (Ferrous Sulfate 324 Mg Tablet.Dr) 324 mg PO DAILY [facility] Last Admin: 05/31/24 08:24 Dose: 324 mg Haloperidol (Haloperidol 1 Mg Tablet) 1 mg PO BID [facility] Last Admin: 05/31/24 08:24 Dose: 1 mg Hydroxyzine HCl (Hydroxyzine Hcl 25 Mg Tablet) 25 mg PO Q6H PRN PRN Reason: Anxiety Last Admin: 05/21/24 21:05 Dose: 25 mg Insulin Glargine (Insulin Glargine,Hum.Rec.Anlog 100 Unit/Ml 10 Ml Vial) 20 unit SUBCUT DAILY [facility] Last Admin: 05/31/24 08:23 Dose: 20 unit Magnesium Hydroxide (Milk Of Magnesia 30 Ml Oral.Susp) 30 ml PO DAILY PRN PRN Reason: Constipation Meclizine HCl (Meclizine Hcl 25 Mg Tablet) 25 mg PO TID PRN PRN Reason: dizziness Metformin HCl (Metformin Hcl 1,000 Mg Tablet) 1,000 mg PO BID [facility] Last Admin: 05/31/24 08:24 Dose: 1,000 mg Multi-Ingred Cream/Lotion/Oil/Oint (Mineral Oil/Petrolatum,White 106 Gm Tube) 1 appl TOPICAL TID [facility]; Protocol Last Admin: 05/31/24 08:27 Dose: 1 appl Nicotine (Nicotine 21 Mg Patch.Td24) 21 mg TRANSDERMA DAILY PRN PRN Reason: nicotine cravings Nicotine Polacrilex (Nicotine Polacrilex 2 Mg Gum) 4 mg BUCCAL Q2H PRN PRN Reason: Nicotine Cravings Pt Own (Act Dry Mouth Gum 1 Piece Of Gum) 1 piece of gum PO TID PRN PRN Reason: dry mouth Omeprazole (Omeprazole 40 Mg Capsule.Dr) 40 mg PO DAILY@0630 [facility] Last Admin: 05/31/24 07:05 Dose: 40 mg Saliva Substitute (Dry Mouth [place] 60 Ml [place]) 1 spray MUCOUS MEM Q2H PRN PRN Reason: Dry Mouth Last Admin: 05/29/24 14:35 Dose: 1 spray Tamsulosin HCl (Tamsulosin Hcl 0.4 Mg Capsule) 0.4 mg PO BEDTIME [facility] Last Admin: 05/30/24 21:58 Dose: 0.4 mg Thiamine HCl (Thiamine Hcl 100 Mg Tablet) 100 mg PO DAILY [facility] Last Admin: 05/31/24 08:24 Dose: 100 mg Trazodone HCl (Trazodone Hcl 50 Mg Tablet) 50 mg PO BEDTIME PRN PRN Reason: sleep Last Admin: 05/29/24 21:09 Dose: 50 mg Vitamin D (Cholecalciferol (Vitamin D3) 25 Mcg Tablet) 50 mcg PO DAILY [facility] Last Admin: 05/31/24 08:24 Dose: 50 mcg Allergies Allergies Allergy/AdvReac Type Severity Reaction Status Date / Time pollen extracts [POLLEN] Allergy Mild RUNNY NOSE Verified 05/17/24 14:27 cat dander [CATS] Allergy Unknown UNKNOWN Verified 05/17/24 14:27 dog dander [DOGS] Allergy Unknown UNKNOWN Verified 05/17/24 14:27 mold [MOLD] Allergy Unknown UNKNOWN Verified 05/17/24 14:27 Assessment & Plan Assessment & Plan (1) Visual hallucination: Status: Acute Code(s): R44.1 - Visual hallucinations (2) Recurrent major depression: Status: Acute Code(s): F33.9 - Major depressive disorder, recurrent, unspecified (3) Suicidal ideation: Status: Acute Code(s): R45.851 - Suicidal ideations (4) Auditory hallucinations: Status: Acute Code(s): R44.0 - Auditory hallucinations Plan 05/20/24: Thiamine 100 mg daily Lactulose 20gm x 1 Ammonia repeat on 05/23/24 Seroquel 12.5 mg tid 05/21 Patient reports that he is feeling little better. Says AH is almost gone. He did have an intrusive thought about hurting himself however this was ego- dystonic and he has no actual feelings or desire for suicide. He came out of the room to be around other people because of the thought. It Trainee talked somewhat about OCD however patient said that he has never had intrusive thoughts before 2 weeks ago. Since patient is starting to feel better and AH relieved, patient agreed to remain on current medication regimen for now --Later patient showed injury from a year ago left torso under left pectoral muscle where he fell was punctured by a nail; said it irritates him and he has been itching it which has caused some scarring. Patient asked for some Tegaderm to help resist itching 05/22 mood better; no AH today; slept well; amenable to continuing treatment plan 05/23 Decrease Seroquel to 12.5 mg daily Hospitalist consult L chest wound Wound care consult, L chest wound Colace 100 mg daily Dry mouth spray prn 05/27 Continue tx. 05/28/2024: Continue current regimen and plans 05/29/2024: Continue current regimen and plans 05/30/2024: DC Seroquel Haldol 1 mg bid B12, Ammonia on 05/31/24. 05/31: continue tx. Reason for continued inpatient stay Substantial Risk for: inability to function Time Spent With Patient Time: Total time managing care of this patient today ____ minutes.
[2024-05-31 12:14] LABS: Vitamin B12 193 pg/mL (200-900)
[2024-05-31 20:00] VITALS: BP 135/74; PULSE 72; RESP 18; TEMP 36.6; O2SAT 97
[2024-05-31 21:30] LABS: Glucose, Whole Blood 153 mg/dL (60-115)
[2024-05-31] MEDS: Tamsulosin HCL 0.4 MG CAPSULE PO (21:55)
[2024-05-31] MEDS: Docusate Sodium 100 MG CAPSULE PO (21:55)
[2024-05-31] MEDS: traZODone HCL 50 MG TABLET PO (21:55)
[2024-05-31] MEDS: Magnesium Hydrox/Alum Hydrox 30 ML ORAL.SUSP PO (22:46)
[2024-06-01] MEDS: Omeprazole 40 MG CAPSULE.DR PO ×2 (06:59→15:36)
[2024-06-01 08:14] LABS: Glucose, Whole Blood 123 mg/dL (60-115)
[2024-06-01] MEDS: HaloperidoL 1 MG TABLET PO (08:40)
[2024-06-01] MEDS: Escitalopram Oxalate 20 MG TABLET PO (08:40)
[2024-06-01] MEDS: Atorvastatin Calcium 40 MG TABLET PO (08:40)
[2024-06-01] MEDS: Cholecalciferol (Vitamin D3) 25 MCG TABLET 50 MCG PO (08:40)
[2024-06-01] MEDS: Ferrous Sulfate 324 MG TABLET.DR PO (08:40)
[2024-06-01] MEDS: metFORMIN HCl 1,000 MG TABLET 1000 MG PO ×2 (08:40→21:09)
[2024-06-01] MEDS: Thiamine HCL 100 MG TABLET PO (08:40)
[2024-06-01] MEDS: buPROPion HCl XL 150 MG TAB.ER.24H PO (08:40)
[2024-06-01] MEDS: atenoloL 25 MG TABLET PO (08:40)
[2024-06-01] MEDS: Doxycycline Monohydrate 100 MG CAPSULE PO ×2 (08:40→21:09)
[2024-06-01] MEDS: Insulin Glargine,Hum.rec.anlog 100 UNIT/ML 10 ML VIAL 20 UNIT SUBCUT (08:42)
[2024-06-01 08:54] VITALS: BP 143/85; PULSE 61; RESP 16; TEMP 36.4; O2SAT 94
[2024-06-01] MEDS: Mineral Oil/Petrolatum,White 106 GM Tube 1 APPL TOPICAL (11:49)
[2024-06-01] MEDS: Albuterol Sulfate 90 MCG 8 GM INHALER 2 PUFF INHALE ×2 (11:49→21:57)
--- NOTE | 2024-06-01 11:54 | HO.WOUND ---
Wound Consult: Follow up 53yr old?male admitted to [facility] on 05/18/24 to the Adult Behavioral Health Unit - See progress notes and H&P for detailed history.? Wound consult follow up for Left Chest wound.? Patient agreeable to assessment and photo documentation.? See chart review for details patient was seen by Hospitalist this admission. Left Chest 05/24/24 Left Chest 06/01/24 Etiology: ??Unclear Etiology Present on Admission Measurements: approximately 0.8cm x 1cm x 0.1cm Wound Bed: Resolving wound beds significant improvement noted two areas remain open the rest remain with newly epithelialized fragile tissue Drainage / Odor: none at the time of my assessment no dressing in place noted Edges: ? irregular and scarred Kay wound: ?hyperpigmented tissue noted, significant scar tissue noted and irregular healing noted - No Induration, Fluctuance or Warmth noted Pain: denies pain reports incessant itching has resolved with use of topical steroid cream ordered by provider Goals of Treatment: ? Provider to order topical steroid for the itch, wound bed treatment with durafiber AG Of note patient may shower. No new topical recommendations needed at this time. Recommendations: 1. When applicable maintain blood glucose levels per Providers order. 2. Left Chest - Cleanse with NS moist gauze, pat dry. Apply Topical steroid twice daily per provider orders. Cover open wounds with Durafiber AG, Dry gauze, ABD pad and Tape OR foam dressing. Change Durafiber every other day, may peel back dressing to apply topical steroid to area around wounds. Re-consult wound care Nurse for wound deterioration or wound changes.
[2024-06-01] MEDS: Betamethasone Dip Aug 0.05% Cr 15 GM TUBE 1 APPL TOPICAL (12:56)
--- NOTE | 2024-06-01 15:14 | HO.PSYCHPN ---
Subjective Subjective Date of Service: 06/01/24 Reason For Visit: Depression Subjective Notes: Conditional Voluntary Healthcare Proxy: No Guardianship: No Medical Problems Affecting Mental Status: No Interim History: Denies SI,HI, AH, VH No sx of acute psychosis, faith Milieu can be triggering he reports. Sleep improved with medications, melatonin Finds Haldol helpful, asks if HS dose can increase I feel pretty good. Medication Compliance: Yes Side effects from medications: No Attending Groups: Yes Review of Systems Acute medical concerns: No Review of Systems Review of Systems Denies Mental Status Exam Mental Status Exam Patient Appearance: Fatigued Patient Orientation: Person, Place, Time and Situation Level of Consciousness: Alert Patient Behavior: Talkative, Cooperative, Anxious, Distractible and Good Eye Contact Mood Description: Depressed Affect Description: Constricted and Flat Patient Cognition Impaired: No Ability to Follow Directions: Good Speech Pattern: Spontaneous Speech Memory Description: Episodic Impaired Diagnostics Vital Signs (24Hr): Vital Signs - 24 hr 05/31/24 20:00 06/01/24 08:54 Temperature 97.9 F 97.6 F Pulse Rate 72 61 Respiratory Rate 18 16 Blood Pressure 135/74 143/85 H Pulse Oximetry 97 94 Oxygen Delivery Method Room Air Room Air BMI result Body Mass Index 47.6 Labs 05/17/24 15:21 06/02/24 07:51 Labs: Laboratory Results - last 48 hr 05/30/24 05/31/24 05/31/24 20:43 07:40 07:49 POC Glucose 144 H 104 Ammonia 36 Vitamin B12 05/31/24 05/31/24 06/01/24 11:16 21:19 08:06 POC Glucose 153 H 123 H Ammonia Vitamin B12 193 L Medications Medications Current Medications Acetaminophen (Acetaminophen 325 Mg Tablet) 650 mg PO Q6H PRN PRN Reason: Headache/Pain Mild Scale (1-3) Al Hydroxide/Mg Hydroxide (Magnesium Hydrox/Alum Hydrox 30 Ml Oral.Susp) 30 ml PO Q6H PRN PRN Reason: Heartburn/Nausea Last Admin: 05/31/24 22:46 Dose: 30 ml Albuterol Sulfate (Albuterol Sulfate 90 Mcg 8 Gm Inhaler) 2 puff INHALE RQ4H PRN PRN Reason: Shortness of Breath Last Admin: 06/01/24 11:49 Dose: 2 puff Atenolol (Atenolol 25 Mg Tablet) 25 mg PO DAILY [facility]; Protocol Last Admin: 06/01/24 08:40 Dose: 25 mg Atorvastatin Calcium (Atorvastatin Calcium 40 Mg Tablet) 40 mg PO DAILY [facility] Last Admin: 06/01/24 08:40 Dose: 40 mg Betamethasone Dipropion Augmented (Betamethasone Dip Aug 0.05% Cr 15 Gm Tube) 1 appl TOPICAL BID [facility]; Protocol Last Admin: 06/01/24 12:56 Dose: 1 appl Bupropion HCl (Bupropion Hcl Xl 150 Mg Tab.Er.24h) 150 mg PO DAILY [facility] Last Admin: 06/01/24 08:40 Dose: 150 mg Docusate Sodium (Docusate Sodium 100 Mg Capsule) 100 mg PO BEDTIME [facility] Last Admin: 05/31/24 21:55 Dose: 100 mg Doxycycline Monohydrate (Doxycycline Monohydrate 100 Mg Capsule) 100 mg PO Q12H [facility] Stop: 06/02/24 09:16 Last Admin: 06/01/24 08:40 Dose: 100 mg Escitalopram Oxalate (Escitalopram Oxalate 20 Mg Tablet) 20 mg PO DAILY [facility] Last Admin: 06/01/24 08:40 Dose: 20 mg Ferrous Sulfate (Ferrous Sulfate 324 Mg Tablet.Dr) 324 mg PO DAILY [facility] Last Admin: 06/01/24 08:40 Dose: 324 mg Haloperidol (Haloperidol 1 Mg Tablet) 1 mg PO DAILY [facility] Haloperidol (Haloperidol 1 Mg Tablet) 2 mg PO BEDTIME [facility] Hydroxyzine HCl (Hydroxyzine Hcl 25 Mg Tablet) 25 mg PO Q6H PRN PRN Reason: Anxiety Last Admin: 05/21/24 21:05 Dose: 25 mg Insulin Glargine (Insulin Glargine,Hum.Rec.Anlog 100 Unit/Ml 10 Ml Vial) 20 unit SUBCUT DAILY [facility] Last Admin: 06/01/24 08:42 Dose: 20 unit Magnesium Hydroxide (Milk Of Magnesia 30 Ml Oral.Susp) 30 ml PO DAILY PRN PRN Reason: Constipation Meclizine HCl (Meclizine Hcl 25 Mg Tablet) 25 mg PO TID PRN PRN Reason: dizziness Melatonin (Melatonin 3 Mg Tablet) 6 mg PO BEDTIME [facility] Metformin HCl (Metformin Hcl 1,000 Mg Tablet) 1,000 mg PO BID [facility] Last Admin: 06/01/24 08:40 Dose: 1,000 mg Multi-Ingred Cream/Lotion/Oil/Oint (Mineral Oil/Petrolatum,White 106 Gm Tube) 1 appl TOPICAL TID [facility]; Protocol Last Admin: 06/01/24 11:49 Dose: 1 appl Nicotine (Nicotine 21 Mg Patch.Td24) 21 mg TRANSDERMA DAILY PRN PRN Reason: nicotine cravings Nicotine Polacrilex (Nicotine Polacrilex 2 Mg Gum) 4 mg BUCCAL Q2H PRN PRN Reason: Nicotine Cravings Pt Own (Act Dry Mouth Gum 1 Piece Of Gum) 1 piece of gum PO TID PRN PRN Reason: dry mouth Omeprazole (Omeprazole 40 Mg Capsule.Dr) 40 mg PO BID@0630,1630 [facility] Saliva Substitute (Dry Mouth [place] 60 Ml [place]) 1 spray MUCOUS MEM Q2H PRN PRN Reason: Dry Mouth Last Admin: 05/29/24 14:35 Dose: 1 spray Tamsulosin HCl (Tamsulosin Hcl 0.4 Mg Capsule) 0.4 mg PO BEDTIME [facility] Last Admin: 05/31/24 21:55 Dose: 0.4 mg Thiamine HCl (Thiamine Hcl 100 Mg Tablet) 100 mg PO DAILY [facility] Last Admin: 06/01/24 08:40 Dose: 100 mg Trazodone HCl (Trazodone Hcl 50 Mg Tablet) 50 mg PO BEDTIME PRN PRN Reason: sleep Last Admin: 05/31/24 21:55 Dose: 50 mg Vitamin D (Cholecalciferol (Vitamin D3) 25 Mcg Tablet) 50 mcg PO DAILY [facility] Last Admin: 06/01/24 08:40 Dose: 50 mcg Allergies Allergies Allergy/AdvReac Type Severity Reaction Status Date / Time pollen extracts [POLLEN] Allergy Mild RUNNY NOSE Verified 05/17/24 14:27 cat dander [CATS] Allergy Unknown UNKNOWN Verified 05/17/24 14:27 dog dander [DOGS] Allergy Unknown UNKNOWN Verified 05/17/24 14:27 mold [MOLD] Allergy Unknown UNKNOWN Verified 05/17/24 14:27 Assessment & Plan Assessment & Plan (1) Visual hallucination: Status: Acute Code(s): R44.1 - Visual hallucinations (2) Recurrent major depression: Status: Acute Code(s): F33.9 - Major depressive disorder, recurrent, unspecified (3) Suicidal ideation: Status: Acute Code(s): R45.851 - Suicidal ideations (4) Auditory hallucinations: Status: Acute Code(s): R44.0 - Auditory hallucinations Plan 05/20/24: Thiamine 100 mg daily Lactulose 20gm x 1 Ammonia repeat on 05/23/24 Seroquel 12.5 mg tid 05/21 Patient reports that he is feeling little better. Says AH is almost gone. He did have an intrusive thought about hurting himself however this was ego-dystonic and he has no actual feelings or desire for suicide. He came out of the room to be around other people because of the thought. Mine Foreman talked somewhat about OCD however patient said that he has never had intrusive thoughts before 2 weeks ago. Since patient is starting to feel better and AH relieved, patient agreed to remain on current medication regimen for now --Later patient showed injury from a year ago left torso under left pectoral muscle where he fell was punctured by a nail; said it irritates him and he has been itching it which has caused some scarring. Patient asked for some Tegaderm to help resist itching 05/22 mood better; no AH today; slept well; amenable to continuing treatment plan 05/23 Decrease Seroquel to 12.5 mg daily Hospitalist consult L chest wound Wound care consult, L chest wound Colace 100 mg daily Dry mouth spray prn 05/27 Continue tx. 05/28/2024: Continue current regimen and plans 05/29/2024: Continue current regimen and plans 05/30/2024: DC Seroquel Haldol 1 mg bid B12, Ammonia on 05/31/24. 05/31: continue tx. 06/01/24: Increase Haldol to 1 mg a.m. 2 mg HS Reason for continued inpatient stay Substantial Risk for: rapid decompensation Time Spent With Patient Time: Total time managing care of this patient today ____ minutes.
[2024-06-01 19:41] VITALS: BP 146/76; PULSE 60; TEMP 36.4; O2SAT 97
[2024-06-01 20:09] LABS: Glucose, Whole Blood 153 mg/dL (60-115)
[2024-06-01] MEDS: Docusate Sodium 100 MG CAPSULE PO (21:09)
[2024-06-01] MEDS: Tamsulosin HCL 0.4 MG CAPSULE PO (21:09)
[2024-06-01] MEDS: HaloperidoL 1 MG TABLET 2 MG PO (21:10)
[2024-06-01] MEDS: Melatonin 3 MG TABLET 6 MG PO (21:10)
[2024-06-02] MEDS: Omeprazole 40 MG CAPSULE.DR PO ×2 (07:13→17:53)
[2024-06-02] MEDS: Albuterol Sulfate 90 MCG 8 GM INHALER 2 PUFF INHALE ×3 (07:47→21:53)
[2024-06-02 07:52] VITALS: BP 146/77; PULSE 62; TEMP 36.4; O2SAT 95
[2024-06-02 08:01] LABS: Glucose, Whole Blood 100 mg/dL (60-115)
[2024-06-02] MEDS: Insulin Glargine,Hum.rec.anlog 100 UNIT/ML 10 ML VIAL 20 UNIT SUBCUT (08:28)
[2024-06-02] MEDS: Thiamine HCL 100 MG TABLET PO ×2 (08:30→21:28)
[2024-06-02] MEDS: Escitalopram Oxalate 20 MG TABLET PO (08:30)
[2024-06-02] MEDS: buPROPion HCl XL 150 MG TAB.ER.24H PO (08:30)
[2024-06-02] MEDS: atenoloL 25 MG TABLET PO (08:30)
[2024-06-02] MEDS: Atorvastatin Calcium 40 MG TABLET PO (08:30)
[2024-06-02] MEDS: Ferrous Sulfate 324 MG TABLET.DR PO (08:30)
[2024-06-02] MEDS: HaloperidoL 1 MG TABLET PO (08:30)
[2024-06-02] MEDS: Cholecalciferol (Vitamin D3) 25 MCG TABLET 50 MCG PO (08:30)
[2024-06-02] MEDS: metFORMIN HCl 1,000 MG TABLET 1000 MG PO ×2 (08:30→21:28)
[2024-06-02] MEDS: Doxycycline Monohydrate 100 MG CAPSULE PO (08:30)
[2024-06-02] MEDS: Mineral Oil/Petrolatum,White 106 GM Tube 1 APPL TOPICAL (08:32)
[2024-06-02] MEDS: Betamethasone Dip Aug 0.05% Cr 15 GM TUBE 1 APPL TOPICAL ×2 (08:32→21:31)
[2024-06-02 08:35] LABS: Creatinine Clr Calc Pharmacy 64.5; Estimated Glomerular Filt Rate 53
--- NOTE | 2024-06-02 11:01 | P.PNPSI_ITS ---
Subjective Subjective Date of Service: 06/02/24 Reason For Visit: Depression Subjective Notes: Conditional Voluntary Healthcare Proxy: No Guardianship: No Medical Problems Affecting Mental Status: No Interim History: I think I can go home, I feel good. Preparing for discharge. Denies current sx of concern. Denies med SE. Reports he feels regime is tolerated and helpful. Visable in milieu, Watching TV with peers, engaged. Medication Compliance: Yes Side effects from medications: No Attending Groups: Yes Review of Systems Acute medical concerns: No Medical Review of Systems: unchanged Review of Systems Review of Systems Denies Yes all other systems are reviewed and are negative Mental Status Exam Mental Status Exam Patient Appearance: Appropriate Patient Orientation: Person, Place, Time and Situation Level of Consciousness: Alert Patient Behavior: Talkative, Cooperative, Distractible and Good Eye Contact Mood Description: Calm Affect Description: Calm Patient Cognition Impaired: No Ability to Follow Directions: Good Speech Pattern: Spontaneous Speech Memory Description: Episodic Impaired Thought Content: positive for Suicidal Ideation (denies) Depressive Symptoms: Thoughts of /Suicide (denies) Judgement: Good Diagnostics Vital Signs (24Hr): Vital Signs - 24 hr 06/01/24 19:41 06/02/24 07:52 Temperature 97.6 F 97.5 F Pulse Rate 60 62 Blood Pressure 146/76 H 146/77 H Pulse Oximetry 97 95 Oxygen Delivery Method Room Air Room Air BMI result Body Mass Index 47.6 Labs 05/17/24 15:21 06/02/24 07:51 Labs: Laboratory Results - last 48 hr 05/31/24 05/31/24 06/01/24 11:16 21:19 08:06 Creatinine Estim Creat Clear Calc Estimated GFR POC Glucose 153 H 123 H Vitamin B12 193 L 06/01/24 06/02/24 06/02/24 20:04 07:51 07:56 Creatinine 1.39 Estim Creat Clear Calc 64.5 Estimated GFR 53 POC Glucose 153 H 100 Vitamin B12 Medications Medications Current Medications Acetaminophen (Acetaminophen 325 Mg Tablet) 650 mg PO Q6H PRN PRN Reason: Headache/Pain Mild Scale (1-3) Al Hydroxide/Mg Hydroxide (Magnesium Hydrox/Alum Hydrox 30 Ml Oral.Susp) 30 ml PO Q6H PRN PRN Reason: Heartburn/Nausea Last Admin: 05/31/24 22:46 Dose: 30 ml Albuterol Sulfate (Albuterol Sulfate 90 Mcg 8 Gm Inhaler) 2 puff INHALE RQ4H PRN PRN Reason: Shortness of Breath Last Admin: 06/02/24 07:47 Dose: 2 puff Atenolol (Atenolol 25 Mg Tablet) 25 mg PO DAILY [facility]; Protocol Last Admin: 06/02/24 08:30 Dose: 25 mg Atorvastatin Calcium (Atorvastatin Calcium 40 Mg Tablet) 40 mg PO DAILY [facility] Last Admin: 06/02/24 08:30 Dose: 40 mg Betamethasone Dipropion Augmented (Betamethasone Dip Aug 0.05% Cr 15 Gm Tube) 1 appl TOPICAL BID [facility]; Protocol Last Admin: 06/02/24 08:32 Dose: 1 appl Bupropion HCl (Bupropion Hcl Xl 150 Mg Tab.Er.24h) 150 mg PO DAILY [facility] Last Admin: 06/02/24 08:30 Dose: 150 mg Docusate Sodium (Docusate Sodium 100 Mg Capsule) 100 mg PO BEDTIME [facility] Last Admin: 06/01/24 21:09 Dose: 100 mg Escitalopram Oxalate (Escitalopram Oxalate 20 Mg Tablet) 20 mg PO DAILY [facility] Last Admin: 06/02/24 08:30 Dose: 20 mg Ferrous Sulfate (Ferrous Sulfate 324 Mg Tablet.Dr) 324 mg PO DAILY [facility] Last Admin: 06/02/24 08:30 Dose: 324 mg Haloperidol (Haloperidol 1 Mg Tablet) 1 mg PO DAILY [facility] Last Admin: 06/02/24 08:30 Dose: 1 mg Haloperidol (Haloperidol 1 Mg Tablet) 2 mg PO BEDTIME [facility] Last Admin: 06/01/24 21:10 Dose: 2 mg Hydroxyzine HCl (Hydroxyzine Hcl 25 Mg Tablet) 25 mg PO Q6H PRN PRN Reason: Anxiety Last Admin: 05/21/24 21:05 Dose: 25 mg Insulin Glargine (Insulin Glargine,Hum.Rec.Anlog 100 Unit/Ml 10 Ml Vial) 20 unit SUBCUT DAILY [facility] Last Admin: 06/02/24 08:28 Dose: 20 unit Magnesium Hydroxide (Milk Of Magnesia 30 Ml Oral.Susp) 30 ml PO DAILY PRN PRN Reason: Constipation Meclizine HCl (Meclizine Hcl 25 Mg Tablet) 25 mg PO TID PRN PRN Reason: dizziness Melatonin (Melatonin 3 Mg Tablet) 6 mg PO BEDTIME [facility] Last Admin: 06/01/24 21:10 Dose: 6 mg Metformin HCl (Metformin Hcl 1,000 Mg Tablet) 1,000 mg PO BID [facility] Last Admin: 06/02/24 08:30 Dose: 1,000 mg Multi-Ingred Cream/Lotion/Oil/Oint (Mineral Oil/Petrolatum,White 106 Gm Tube) 1 appl TOPICAL TID [facility]; Protocol Last Admin: 06/02/24 08:32 Dose: 1 appl Nicotine (Nicotine 21 Mg Patch.Td24) 21 mg TRANSDERMA DAILY PRN PRN Reason: nicotine cravings Nicotine Polacrilex (Nicotine Polacrilex 2 Mg Gum) 4 mg BUCCAL Q2H PRN PRN Reason: Nicotine Cravings Pt Own (Act Dry Mouth Gum 1 Piece Of Gum) 1 piece of gum PO TID PRN PRN Reason: dry mouth Omeprazole (Omeprazole 40 Mg Capsule.Dr) 40 mg PO BID@0630,1630 [facility] Last Admin: 06/02/24 07:13 Dose: 40 mg Saliva Substitute (Dry Mouth Bogue 60 Ml Bogue) 1 spray MUCOUS MEM Q2H PRN PRN Reason: Dry Mouth Last Admin: 05/29/24 14:35 Dose: 1 spray Tamsulosin HCl (Tamsulosin Hcl 0.4 Mg Capsule) 0.4 mg PO BEDTIME [facility] Last Admin: 06/01/24 21:09 Dose: 0.4 mg Thiamine HCl (Thiamine Hcl 100 Mg Tablet) 100 mg PO DAILY [facility] Last Admin: 06/02/24 08:30 Dose: 100 mg Trazodone HCl (Trazodone Hcl 50 Mg Tablet) 50 mg PO BEDTIME PRN PRN Reason: sleep Last Admin: 05/31/24 21:55 Dose: 50 mg Vitamin D (Cholecalciferol (Vitamin D3) 25 Mcg Tablet) 50 mcg PO DAILY [facility] Last Admin: 06/02/24 08:30 Dose: 50 mcg Allergies Allergies Allergy/AdvReac Type Severity Reaction Status Date / Time pollen extracts [POLLEN] Allergy Mild RUNNY NOSE Verified 05/17/24 14:27 cat dander [CATS] Allergy Unknown UNKNOWN Verified 05/17/24 14:27 dog dander [DOGS] Allergy Unknown UNKNOWN Verified 05/17/24 14:27 mold [MOLD] Allergy Unknown UNKNOWN Verified 05/17/24 14:27 Assessment & Plan Assessment & Plan (1) Visual hallucination: Status: Acute Code(s): R44.1 - Visual hallucinations (2) Recurrent major depression: Status: Acute Code(s): F33.9 - Major depressive disorder, recurrent, unspecified (3) Suicidal ideation: Status: Acute Code(s): R45.851 - Suicidal ideations (4) Auditory hallucinations: Status: Acute Code(s): R44.0 - Auditory hallucinations Plan 05/20/24: Thiamine 100 mg daily Lactulose 20gm x 1 Ammonia repeat on 05/23/24 Seroquel 12.5 mg tid 05/21 Patient reports that he is feeling little better. Says AH is almost gone. He did have an intrusive thought about hurting himself however this was ego- dystonic and he has no actual feelings or desire for suicide. He came out of the room to be around other people because of the thought. Seo Coordinator talked somewhat about OCD however patient said that he has never had intrusive thoughts before 2 weeks ago. Since patient is starting to feel better and AH relieved, patient agreed to remain on current medication regimen for now --Later patient showed injury from a year ago left torso under left pectoral muscle where he fell was punctured by a nail; said it irritates him and he has been itching it which has caused some scarring. Patient asked for some Tegaderm to help resist itching 05/22 mood better; no AH today; slept well; amenable to continuing treatment plan 05/23 Decrease Seroquel to 12.5 mg daily Hospitalist consult L chest wound Wound care consult, L chest wound Colace 100 mg daily Dry mouth spray prn 05/27 Continue tx. 05/28/2024: Continue current regimen and plans 05/29/2024: Continue current regimen and plans 05/30/2024: DC Seroquel Haldol 1 mg bid B12, Ammonia on 05/31/24. 05/31: continue tx. 06/02: Thiamine 100 mg bid Reason for continued inpatient stay Substantial Risk for: stable for discharge Time Spent With Patient Time: Total time managing care of this patient today ____ minutes.
[2024-06-02] MEDS: hydrOXYzine HCL 25 MG TABLET PO (14:20)
[2024-06-02 20:00] VITALS: BP 130/60; PULSE 67; TEMP 36.4; O2SAT 96
[2024-06-02 20:24] LABS: Glucose, Whole Blood 152 mg/dL (60-115)
[2024-06-02] MEDS: HaloperidoL 1 MG TABLET 2 MG PO (21:27)
[2024-06-02] MEDS: Melatonin 3 MG TABLET 6 MG PO (21:28)
[2024-06-02] MEDS: Tamsulosin HCL 0.4 MG CAPSULE PO (21:28)
[2024-06-02] MEDS: Docusate Sodium 100 MG CAPSULE PO (21:28)
[2024-06-03] MEDS: Omeprazole 40 MG CAPSULE.DR PO (07:14)
[2024-06-03 08:13] LABS: Glucose, Whole Blood 108 mg/dL (60-115)
[2024-06-03 08:29] VITALS: BP 144/73; PULSE 62; RESP 16; TEMP 37.1; O2SAT 95
[2024-06-03] MEDS: atenoloL 25 MG TABLET PO (08:47)
[2024-06-03] MEDS: buPROPion HCl XL 150 MG TAB.ER.24H PO (08:47)
[2024-06-03] MEDS: Insulin Glargine,Hum.rec.anlog 100 UNIT/ML 10 ML VIAL 20 UNIT SUBCUT (08:47)
[2024-06-03] MEDS: Thiamine HCL 100 MG TABLET PO (08:47)
[2024-06-03] MEDS: HaloperidoL 1 MG TABLET PO (08:47)
[2024-06-03] MEDS: metFORMIN HCl 1,000 MG TABLET 1000 MG PO (08:47)
[2024-06-03] MEDS: Ferrous Sulfate 324 MG TABLET.DR PO (08:47)
[2024-06-03] MEDS: Escitalopram Oxalate 20 MG TABLET PO (08:47)
[2024-06-03] MEDS: Cholecalciferol (Vitamin D3) 25 MCG TABLET 50 MCG PO (08:47)
[2024-06-03] MEDS: Atorvastatin Calcium 40 MG TABLET PO (08:47)
--- NOTE | 2024-06-03 16:11 | P.DS_ITS ---
DS: Providers Provider Date of Service: 06/03/24 Date of admission: 05/18/24 12:17 Date of discharge: 06/03/24 Primary care physician: Bon Arvizu MD Admitting clinician: Kaitlyn Long Attending physician on admission: Federico Mauro Consults: 05/23/24 16:08 Consult to Hospitalist Routine Comment: Consulting Provider: [facility] Hospitalists Reason For Exam: wound, L chest/abd 05/23/24 17:41 Consult to Wound Care Routine Reason for consultation: L chest,abd, weeping-yellow, green, malodorous 05/23/24 21:14 Consult to Wound Care Routine Reason for consultation: L chest wound Attending physician on discharge: Federico Mauro Discharging clinician: Kaitlyn Long DS: Diagnosis Discharge Diagnosis (1) Visual hallucination: Status: Acute (2) Recurrent major depression: Status: Acute (3) Suicidal ideation: Status: Acute (4) Auditory hallucinations: Status: Acute DS: Medications Discharge Medications Home Medications: Home Medications ?Medication ?Instructions ?Recorded ?Confirmed insulin glargine-yfgn 100 unit/mL 20 unit subcut DAILY 05/17/24 05/17/24 (3 mL) subcutaneous pen Previous Rx's ?Medication ?Instructions ?Recorded cholecalciferol (vitamin D3) 50 50 mcg PO DAILY 90 days #90 caps 10/06/23 mcg (2,000 unit) capsule atenolol 25 mg tablet 25 mg PO DAILY #90 tabs 01/20/24 escitalopram oxalate 20 mg tablet 20 mg PO QAM #90 tabs 01/20/24 metformin 1,000 mg tablet 1,000 mg PO BID 90 days #180 tabs 01/20/24 ferrous sulfate 325 mg (65 mg 325 mg PO DAILY #90 tabs 02/29/24 iron) tablet atorvastatin 40 mg tablet 40 mg PO DAILY 90 days #90 tabs 03/26/24 omeprazole 40 mg capsule,delayed 40 mg PO DAILY 90 days #90 caps 03/26/24 release bupropion HCl 150 mg 24 hr tablet, 150 mg PO QAM 30 days #30 tabs 03/27/24 extended release Ventolin HFA 90 mcg/actuation 2 puff PO Q4H PRN for wheezing #18 03/29/24 aerosol inhaler (albuterol sulfate) ea tamsulosin 0.4 mg capsule 0.4 mg PO BEDTIME 30 days #90 caps 04/22/24 trazodone 50 mg tablet 50 mg PO BEDTIME PRN sleep #90 tabs 04/22/24 meclizine 25 mg tablet 25 mg PO TID PRN dizziness #20 tabs 05/02/24 Act Dry Mouth Gum 1 piece of gum PO TID PRN ##0 06/02/24 betamethasone, augmented 0.05 % 1 appl topical BID #15 grams 06/02/24 topical cream docusate sodium 100 mg capsule 100 mg PO BEDTIME #30 caps 06/02/24 haloperidol 1 mg tablet 1 mg PO DAILY #30 tabs 06/02/24 haloperidol 1 mg tablet 2 mg (2 x 1 mg) PO BEDTIME #30 tabs 06/02/24 melatonin 3 mg tablet 6 mg (2 x 3 mg) PO BEDTIME #30 tabs 06/02/24 thiamine mononitrate (vit B1) 100 100 mg PO BID #60 tabs 06/02/24 mg tablet white petrolatum-mineral oil 1 appl topical TID #15 grams 06/02/24 topical cream (Dermacerin topical cream) Mental Status Exam Mental Status Exam Patient Appearance: Appropriate Patient Orientation: Person, Place, Time and Situation Level of Consciousness: Alert Patient Behavior: Talkative, Cooperative, Distractible and Good Eye Contact Mood Description: Calm Affect Description: Calm Patient Cognition Impaired: No Ability to Follow Directions: Good Speech Pattern: Spontaneous Speech Memory Description: Episodic Impaired Thought Content: positive for Suicidal Ideation (denies) Depressive Symptoms: Thoughts of /Suicide (denies) Judgement: Good Data Data Completed and Pending Completed studies during hospitalization [Text1]: 05/27/24 05/28/24 05/28/24 21:12 08:13 21:14 Creatinine Estim Creat Clear Calc Estimated GFR POC Glucose 129 H 104 124 H Ammonia Vitamin B12 05/29/24 05/29/24 05/30/24 08:07 21:05 08:06 Creatinine Estim Creat Clear Calc Estimated GFR POC Glucose 89 152 H 121 H Ammonia Vitamin B12 05/30/24 05/31/24 05/31/24 20:43 07:40 07:49 Creatinine Estim Creat Clear Calc Estimated GFR POC Glucose 144 H 104 Ammonia 36 Vitamin B12 05/31/24 05/31/24 06/01/24 11:16 21:19 08:06 Creatinine Estim Creat Clear Calc Estimated GFR POC Glucose 153 H 123 H Ammonia Vitamin B12 193 L 06/01/24 06/02/24 06/02/24 20:04 07:51 07:56 Creatinine 1.39 Estim Creat Clear Calc 64.5 Estimated GFR 53 POC Glucose 153 H 100 Ammonia Vitamin B12 06/02/24 06/03/24 20:18 08:04 Creatinine Estim Creat Clear Calc Estimated GFR POC Glucose 152 H 108 Ammonia Vitamin B12 DS: Summary Hospital Course Hospital Course: Admission to adult psychiatry for exacerbation of recurrent major depression with psychotic features. Pt reported SI with AH VH, poor sleep, untreated PAMELA (diagnosed he believes in [id number]). Identifies precipitant as feeling pressure to get a job by his brother. Pt reports he has not worked since 2014. Medications were evaluated and adjusted. Pt asked for medications for voices. Se roquel was trialed as was Haldol. Pt had improved results with Haldol. CPAP for PAMELA was trialed. Pt refused to continue with this due to discomfort. Pt was initially hesitant to attend group but was able to attend and fully participate by the end of his stay. He found the milieu engaging, postponing discharge once, however also found some of his peers triggering, so he leaves today in full agreement it is time for him to return home. He denies SI/HI/AH/VH. There are no sx of acute psychosis or faith. Status at Discharge Functional status at discharge: independent ambulation Overall status at discharge: patient is progressing back to baseline Time Spent with Patient Time attestation: Total time managing care of this patient today ____ minutes. Time spent: Less than 30 minutes Discharge Plan Discharge Anticipated Discharge Date/Time: 06/03/24 12:00 Patient Disposition: Home, Self-Care Discharge Diagnosis: Recurrent Major Depression Referrals: [facility] Intake with Radha Yoon [Other] - 06/10/24 2:00 pm (In person - at the intake ask them to set up a PT1 ride for your future appts. ) [facility] [Other] - 1 Week (A referral has been placed and you can call them to follow up on the progress of the referral. ) Bon Arvizu MD [Primary Care Provider] - 06/07/24 3:00 pm (Office will call pt with follow up appointment.) Discharge Medications: New betamethasone, augmented 0.05 % Cream 1 appl topical BID Qty: 15 0RF Protocol: Apply to: Apply to: chest wall haloperidol 1 mg Tablet 2 mg PO BEDTIME Qty: 30 0RF haloperidol 1 mg Tablet 1 mg PO DAILY Qty: 30 0RF melatonin 3 mg Tablet 6 mg PO BEDTIME Qty: 30 0RF docusate sodium 100 mg Capsule 100 mg PO BEDTIME Qty: 30 0RF Dermacerin Cream 1 appl topical TID Qty: 15 0RF Protocol: Apply to: Apply to: affected areas thiamine mononitrate (vit B1) 100 mg Tablet 100 mg PO BID Qty: 60 0RF Continued cholecalciferol (vitamin D3) 50 mcg (2,000 unit) capsule 50 mcg PO DAILY 90 Days Qty: 90 3RF metformin 1,000 mg tablet 1,000 mg PO BID 90 Days Qty: 180 1RF atenolol 25 mg tablet 25 mg PO DAILY Qty: 90 8RF escitalopram oxalate 20 mg tablet 20 mg PO QAM Qty: 90 1RF ferrous sulfate 325 mg (65 mg iron) tablet 325 mg PO DAILY Qty: 90 1RF atorvastatin 40 mg tablet 40 mg PO DAILY 90 Days Qty: 90 1RF omeprazole 40 mg capsule,delayed release(DR/EC) 40 mg PO DAILY 90 Days Qty: 90 1RF bupropion HCl 150 mg tablet extended release 24 hr 150 mg PO QAM 30 Days Qty: 30 1RF albuterol sulfate [Ventolin HFA] 90 mcg/actuation HFA aerosol inhaler 2 puff PO Q4H PRN (Reason: for wheezing) Qty: 18 3RF trazodone 50 mg tablet 50 mg PO BEDTIME PRN (Reason: sleep) Qty: 90 0RF tamsulosin 0.4 mg capsule 0.4 mg PO BEDTIME 30 Days Qty: 90 1RF meclizine 25 mg tablet 25 mg PO TID PRN (Reason: dizziness) Qty: 20 0RF insulin glargine-yfgn 100 unit/mL (3 mL) insulin pen 20 unit subcut DAILY No Action Act Dry Mouth Gum 1 piece of gum PO TID PRN (Reason: Moisturizing Gum) Discharge Orders: Discharge Order (Routine); Ordered 06/03/24 Ordered By: Kaitlyn Long Diet: Advance to usual diet Activity on Discharge: As tolerated Stand Alone Forms: Patient Portal Discharge page, Community Support Print Language: Citizen Of [place] Care Plan Goals: Mood and Behavioral Stabilization Health Concerns: Mood and Behavioral Stabilization Plan of Treatment: Attend scheduled appointments Take medications as directed Assessment: Denies SI,HI, AH,VH No sx of overt faith or psychosis Discharge Date/Time: 06/03/24 10:52
== END 2024-06-03 10:52 | disposition home or self-care (01) | DRG 751 ==
LOC: HO.ED 05-18 11:53 → HO.PM5 05-18 12:24
PROVIDERS: Emergency Medicine Emergency Medical Services; Physician Assistant; Student in an Organized Health Care Education/Training Program; Admitting Provider Clinical Nurse Specialist Psychiatric/Mental Health, Adult; Emergency Provider Internal Medicine; PCP Internal Medicine; Visit Provider Clinical Nurse Specialist Psychiatric/Mental Health, Adult
DX: F33.9 Major depressive disorder, recurrent, unspecified (principal); R45.851 Suicidal ideations; L03.313 Cellulitis of chest wall; S21.102A Unspecified open wound of left front wall of thorax without penetration into thoracic cavity, initial encounter; G47.33 Obstructive sleep apnea (adult) (pediatric); J44.9 Chronic obstructive pulmonary disease, unspecified; R44.0 Auditory hallucinations; R44.1 Visual hallucinations; X58.XXXA Exposure to other specified factors, initial encounter; Z79.4 Long term (current) use of insulin; Z79.84 Long term (current) use of oral hypoglycemic drugs; Z79.899 Other long term (current) drug therapy
CPT/HCPCS: 36415; 80053; 80061; 80076; 80307; 81001; 82140; 82565; 82607; 82746; 82947; 83036; 83735; 84439; 84443; 85025; 93005; 99285; S9485

== ENCOUNTER → 2024-05-18 08:29 | Outpatient (BNV) | payer OTHER, SELFPAY | PROVIDERS: Admitting Provider Clinical Nurse Specialist Psychiatric/Mental Health, Adult; Emergency Provider Internal Medicine; PCP Internal Medicine; Visit Provider Internal Medicine | DX: R94.31 Abnormal electrocardiogram [ECG] [EKG] (principal) | CPT/HCPCS: 93010 ==

== ENCOUNTER → 2024-05-18 12:17 | Outpatient (BNV) | payer OTHER, SELFPAY | PROVIDERS: Admitting Provider Clinical Nurse Specialist Psychiatric/Mental Health, Adult; Emergency Provider Internal Medicine; PCP Internal Medicine; Visit Provider Clinical Nurse Specialist Psychiatric/Mental Health, Adult | DX: F33.3 Major depressive disorder, recurrent, severe with psychotic symptoms (principal); R45.851 Suicidal ideations | CPT/HCPCS: 90792; 99231; 99232 ==

== ENCOUNTER → 2024-05-18 12:17 | Outpatient (BNV) | payer OTHER, SELFPAY | PROVIDERS: Admitting Provider Clinical Nurse Specialist Psychiatric/Mental Health, Adult; Emergency Provider Internal Medicine; PCP Internal Medicine; Visit Provider Physician Assistant | DX: S21.102A Unspecified open wound of left front wall of thorax without penetration into thoracic cavity, initial encounter (principal); L03.90 Cellulitis, unspecified | CPT/HCPCS: 99222 ==

== ENCOUNTER 2024-06-03 14:33 | Emergency (ER) | payer OTHER, SELFPAY ==
--- NOTE | 2024-06-03 14:39 | ED_ITS ---
HPI - General Adult General Chief complaint: Psychiatric Symptoms Stated complaint: dry heaving, SI Time Seen by Provider: 06/03/24 14:50 Source: patient and old records reviewed Mode of arrival: ambulatory Limitations: no limitations History of Present Illness ED Provider: CHANO TESFAYE narrative: 53 yo male with PMH of anxiety, COPD, CKD, GERD, HLD, DM, asthma, chest wall chondrosarcoma in 2019, healed L chest wall wound which he tells me he fell he comes in today with c/o early AM nausea, SI and his stomach feels upset. No fevers, dysuria, vomiting, diarrhea or change in bowels. He states he has felt this way before when he is upset. He denies ingestion, trauma, or any other complaints. He states he takes all his medications as prescribed. MD complaint: abdominal pain, SI, nausea Onset (ago): day(s) (1) Location: abdomen Radiation: non-radiation Severity: mild Quality: dull Pain Consistency: intermittent Relieving factors: none Exacerbating factors: none Associated symptoms: other (nausea and SI) Treatments prior to arrival: none Related Data Home Medications ?Medication ?Instructions ?Recorded ?Confirmed insulin glargine-yfgn 100 unit/mL 20 unit subcut DAILY 05/17/24 05/17/24 (3 mL) subcutaneous pen Previous Rx's ?Medication ?Instructions ?Recorded cholecalciferol (vitamin D3) 50 50 mcg PO DAILY 90 days #90 caps 10/06/23 mcg (2,000 unit) capsule atenolol 25 mg tablet 25 mg PO DAILY #90 tabs 01/20/24 escitalopram oxalate 20 mg tablet 20 mg PO QAM #90 tabs 01/20/24 metformin 1,000 mg tablet 1,000 mg PO BID 90 days #180 tabs 01/20/24 ferrous sulfate 325 mg (65 mg 325 mg PO DAILY #90 tabs 02/29/24 iron) tablet atorvastatin 40 mg tablet 40 mg PO DAILY 90 days #90 tabs 03/26/24 omeprazole 40 mg capsule,delayed 40 mg PO DAILY 90 days #90 caps 03/26/24 release bupropion HCl 150 mg 24 hr tablet, 150 mg PO QAM 30 days #30 tabs 03/27/24 extended release Ventolin HFA 90 mcg/actuation 2 puff PO Q4H PRN for wheezing #18 03/29/24 aerosol inhaler (albuterol sulfate) ea tamsulosin 0.4 mg capsule 0.4 mg PO BEDTIME 30 days #90 caps 04/22/24 trazodone 50 mg tablet 50 mg PO BEDTIME PRN sleep #90 tabs 04/22/24 meclizine 25 mg tablet 25 mg PO TID PRN dizziness #20 tabs 05/02/24 Act Dry Mouth Gum 1 piece of gum PO TID PRN ##0 06/02/24 betamethasone, augmented 0.05 % 1 appl topical BID #15 grams 06/02/24 topical cream docusate sodium 100 mg capsule 100 mg PO BEDTIME #30 caps 06/02/24 haloperidol 1 mg tablet 1 mg PO DAILY #30 tabs 06/02/24 haloperidol 1 mg tablet 2 mg (2 x 1 mg) PO BEDTIME #30 tabs 06/02/24 melatonin 3 mg tablet 6 mg (2 x 3 mg) PO BEDTIME #30 tabs 06/02/24 thiamine mononitrate (vit B1) 100 100 mg PO BID #60 tabs 06/02/24 mg tablet white petrolatum-mineral oil 1 appl topical TID #15 grams 06/02/24 topical cream (Dermacerin topical cream) Allergies Allergy/AdvReac Type Severity Reaction Status Date / Time pollen extracts [POLLEN] Allergy Mild RUNNY NOSE Verified 06/03/24 14:41 cat dander [CATS] Allergy Unknown UNKNOWN Verified 06/03/24 14:41 dog dander [DOGS] Allergy Unknown UNKNOWN Verified 06/03/24 14:41 mold [MOLD] Allergy Unknown UNKNOWN Verified 06/03/24 14:41 Review of Systems 2 Review of Systems: Constitutional : No Fever, No Chills ENT/Mouth : No Ear Pain, No Nasal Congestion, No sore throat Eyes: No Eye Pain, No Swelling, No Redness Cardiovascular : No Chest Pain, No SOB Respiratory : No Cough, No Sputum, No Dyspnea Gastrointestinal : pos Nausea, No Vomiting, No Diarrhea, No Hematochezia, No Melena, pos abd pain Genitourinary : No Dysuria, No Urinary Frequency, No Hematuria Musculoskeletal : No Myalgias Skin : No Skin Lesions, No rash Neuro : No Weakness, No Numbness, No Paresthesias, No Dizziness, No Headache Psych : positive Anxiety, positive Depression, positive SI no HI Heme/Lymph: No Lymphadenopathy Endocrine : No Polyuria, No Polydipsia All other systems reviewed and are negative [facility] Past Medical History Attestation statement: The following information was validated with the patient. Source: old records reviewed Medical History Recurrent major depression Allergic rhinitis Insomnia Palpitations Vitamin D deficiency Chronic kidney disease, stage III (moderate) GERD without esophagitis Restrictive lung disease Obesity (BMI 30-39.9) Benign essential hypertension Pure hypercholesterolemia Diabetes mellitus Pulmonary emboli Chondrosarcoma Hyperlipidemia Chronic restrictive lung disease COPD (chronic obstructive pulmonary disease) Asthma Surgical History History of esophagogastroduodenoscopy (EGD) H/O colonoscopy History of inguinal hernia repair Hx of exploratory thoracotomy H/O tooth extraction Family History Family History Father Hypertension Kidney failure, acute Mother Lung cancer Family/Other Diabetes Social History Social History Household Members: None Housing: House Do you presently have visiting nurse or other home services: No Alcohol intake: never Patient Tobacco Use Status: Never used Tobacco e-Cigarette/Vaping Use: Never Used Second Hand Smoke Exposure: Yes Advance Directives: No Advance Directives Information Provided: No Do you have a plan to hurt others: No Plan service: No Current occupational status: unemployed Sexual orientation: Unable to collect Cognitive needs: No Hearing needs: No Vision needs: Yes (Glasses) Physical Exam ED Vital Signs: Vital Signs - 24 hr 06/03/24 14:40 Temperature 97.4 F Pulse Rate 72 Respiratory Rate 16 Blood Pressure 133/73 Pulse Oximetry 95 Oxygen Delivery Method Room Air BMI result Body Mass Index 37.3 Appearance: Alert. Oriented X3. No acute distress. Eyes: Pupils equal, round and reactive to light. ENT: Pharynx normal. Neck: Normal inspection. Neck supple. CVS: Normal heart rate and rhythm. Pulses normal. Chest wall: thick scarred healed L chest wound that looks stellate in nature Respiratory: No respiratory distress. Breath sounds normal. Abdomen: Soft and nontender. no grimace to palpation Skin: Skin warm and dry. Normal skin color. Normal skin turgor. Extremities: No lower extremity edema. No calf ttp Neuro: Oriented X 3. No motor deficit. No sensory deficit. CN2-12 intact Course Course Course Narrative: This is a rapid medical exam performed by Isaac Aldrich NP: Additional HPI, ROS, PE not included below will be deferred to primary provider. Patient is a 53-year-old male with history of hallucinations, anxiety, DM, asthma, COPD, restrictive lung disease, HTN, CKD 3 presenting with suicidal ideation, does not have definite plan but state he would use a screwdriver or a knife to hurt himself. States that he tried cleaning his house to avoid these thoughts but it didn't work. Denies HI, AH, VH. Also complains of dry heaves for the past 3 hours, no vomiting or diarrhea, no fevers. Plan: med clearance then CARE eval Reevaluation(s) Reevaluation #1: Cr at baseline Medications Administered Discontinued Medications Generic Name Dose Route Start Last Admin Trade Name Freq PRN Reason Stop Dose Admin Ondansetron HCl 4 mg 06/03/24 15:20 06/03/24 15:23 Ondansetron Odt 4 Mg Tab.Rapdis TRANSLINGU 06/03/24 15:21 4 mg ONCE ONE Administration Medical Decision Making Medical Decision Making [facility] Narrative: 53 yo male with PMH of anxiety, COPD, CKD, GERD, HLD, DM, asthma, chest wall chondrosarcoma in 2019, healed L chest wall wound here with upset stomach and nausea but no localized pain no fevers and normal BMs at this time will obtain labs, EKG, UA, start on zofran. Overall abdomen is benign. Differential Diagnosis Differential Diagnoses: The differential diagnosis associated with the presentation includes SI, gerd, gastritis, he has no localized pain to suggest biliary colic or appendicitis no vomiting normal BMs doubt SBO Admission/Observation Consideration of admission/observation: Escalation of care including admission/observation considered physician observation started at 4pm pending CARE team Lab Data [facility] Lab Attestation statement: I reviewed the patient's lab results. 06/03/24 15:30 06/03/24 15:30 Labs: Lab Results 06/03/24 06/03/24 Range/Units 15:02 15:30 WBC 7.8 (4.8-10.8) X10*3/uL RBC 4.35 L (4.60-5.80) X10*6/uL Hgb 12.8 L (14.0-18.0) g/dl Hct 39.2 L (42.0-52.0) % MCV 90.1 (80.0-98.0) fL MCH 29.4 (27.0-33.0) pg MCHC 32.7 (31.0-36.0) g/dl RDW 15.7 (11.0-16.0) % Plt Count 216 (160-400) X10*3/uL MPV 10.5 (9.4-12.4) fL Immature Gran % (Auto) 0.3 (0.0-0.4) % Neut % (Auto) 76.3 H (45-73) % Lymph % (Auto) 15.2 L (20-40) % [place] % (Auto) 4.6 (2-11) % Eos % (Auto) 3.2 (0-4) % Baso % (Auto) 0.4 (0-2) % Lymph # (Auto) 1.2 (1.2-4.9) X10*3/uL [place] # (Auto) 0.4 (0.1-1.2) X10*3/uL Eos # (Auto) 0.3 (0.0-0.4) X10*3/uL Baso # (Auto) 0.0 (0.0-0.2) X10*3/uL Abs Immat Gran (auto) 0.02 (0.00-0.03) X10*3/uL Absolute Neuts (auto) 6.0 (2.0-8.3) x10*3/uL Absolute Nucleated RBC 0.000 (0.0-0.012) X10*3/uL Nucleated RBC % (auto) 0.0 (0.0-0.2) /100WBC PT 11.5 (10.9-12.4) SEC INR 1.0 (0.9-1.1) Sodium 143 (135-145) mmol/L Potassium 4.8 (3.3-5.1) mmol/L Chloride 108 (96-108) mmol/L Carbon Dioxide 29 (22-29) mmol/L Anion Gap 11 L (12-20) BUN 28 H (9-16) mg/dL Creatinine 1.41 H (0.5-1.4) mg/dL Estim Creat Clear Calc 73.3 Estimated GFR 53 Random Glucose 90 (60-115) mg/dL Calcium 8.8 (8.4-10.2) mg/dL Magnesium 1.8 (1.6-2.6) mg/dL Total Bilirubin 0.4 (0.0-1.0) mg/dL AST 22 (5-37) U/L ALT 17 (0-40) U/L Alkaline Phosphatase 79 (39-117) U/L Total Protein 7.1 (6.5-8.0) g/dL Albumin 3.8 (3.5-5.0) g/dL Lipase 35 (8-78) U/L Urine Color Yellow Urine Appearance Clear Urine pH 5.5 (5.0-9.0) Ur Specific [place] 1.015 (1.005-1.025) Urine Protein Negative (Neg-Trace) mg/dL Urine Glucose (UA) Negative (Negative) mg/dL Urine Ketones Negative (Negative) mg/dL Urine Blood Small (1+) H (Negative) Urine Nitrite Negative (Negative) Ur Leukocyte Esterase Negative (Negative) Urine RBC 0-2 (0-2) /HPF Urine WBC 0-5 (0-5) /HPF Ur Squamous Epith Cells 0-2 (0-2) /HPF Urine Bacteria None Seen (None Seen) Hyaline Casts 0-2 (0-2) /LPF Urine Opiates Screen Not Detected (Not Detect) Ur Buprenorphine Scrn Not Detected (Not Detect) ng/mL Ur Oxycodone Screen Not Detected (Not Detect) ng/mL Urine Methadone Screen Not Detected (Not Detect) ng/mL Urine Fentanyl Screen Not Detected (Not Detect) Ur Barbiturates Screen Not Detected (Not Detect) Ur Phencyclidine Scrn Not Detected (Not Detect) Ur Amphetamines Screen Not Detected (Not Detect) U Benzodiazepines Scrn Not Detected (Not Detect) Urine Cocaine Screen Not Detected (Not Detect) U Marijuana (THC) Screen Not Detected (Not Detect) Ethyl Alcohol 11 mg/dL Independent Interpretation I performed an independent interpretation of an: EKG Interpretation: Rate: 70 Rhythm: NSR [place]: normal Normal P waves. Normal [place]. Normal QRS complex. ST T wave : no JUAN, inverted t waves III and aVF qTC: 434 prior studies: no change from priors The study has been interpreted contemporaneously by me. . External Record Review External record reviewed: Inpatient record and Outpatient record Discharge Plan Discharge Clinical Impression: Nausea, Suicidal ideation Patient Disposition: Still a Patient Prescriptions: No Action cholecalciferol (vitamin D3) 50 mcg (2,000 unit) capsule 50 mcg PO DAILY 90 Days Qty: 90 3RF metformin 1,000 mg tablet 1,000 mg PO BID 90 Days Qty: 180 1RF atenolol 25 mg tablet 25 mg PO DAILY Qty: 90 8RF escitalopram oxalate 20 mg tablet 20 mg PO QAM Qty: 90 1RF ferrous sulfate 325 mg (65 mg iron) tablet 325 mg PO DAILY Qty: 90 1RF atorvastatin 40 mg tablet 40 mg PO DAILY 90 Days Qty: 90 1RF omeprazole 40 mg capsule,delayed release(DR/EC) 40 mg PO DAILY 90 Days Qty: 90 1RF bupropion HCl 150 mg tablet extended release 24 hr 150 mg PO QAM 30 Days Qty: 30 1RF albuterol sulfate [Ventolin HFA] 90 mcg/actuation HFA aerosol inhaler 2 puff PO Q4H PRN (Reason: for wheezing) Qty: 18 3RF trazodone 50 mg tablet 50 mg PO BEDTIME PRN (Reason: sleep) Qty: 90 0RF tamsulosin 0.4 mg capsule 0.4 mg PO BEDTIME 30 Days Qty: 90 1RF meclizine 25 mg tablet 25 mg PO TID PRN (Reason: dizziness) Qty: 20 0RF insulin glargine-yfgn 100 unit/mL (3 mL) insulin pen 20 unit subcut DAILY Act Dry Mouth G 1 piece of gum PO TID PRNQty: 0 0RF betamethasone, augmented 0.05 % Cream 1 appl topical BID Qty: 15 0RF Protocol: Apply to: Apply to: chest wall haloperidol 1 mg Tablet 2 mg PO BEDTIME Qty: 30 0RF haloperidol 1 mg Tablet 1 mg PO DAILY Qty: 30 0RF melatonin 3 mg Tablet 6 mg PO BEDTIME Qty: 30 0RF docusate sodium 100 mg Capsule 100 mg PO BEDTIME Qty: 30 0RF Dermacerin Cream 1 appl topical TID Qty: 15 0RF Protocol: Apply to: Apply to: affected areas thiamine mononitrate (vit B1) 100 mg Tablet 100 mg PO BID Qty: 60 0RF Print Language: Armenian
[2024-06-03 14:40] VITALS: BP 133/73; PULSE 72; RESP 16; TEMP 36.3; O2SAT 95; BMI 37.3
--- NOTE | 2024-06-03 14:44 | ECG_ITS ---
Test Reason : ABDOMINAL PAIN Blood Pressure : */* mmHG Vent. Rate : 70 BPM Atrial Rate : 70 BPM P-R Int : 150 ms QRS Dur : 106 ms QT Int : 402 ms P-R-T Axes : 25 0 -6 degrees QTcB Int : 434 ms Normal sinus rhythm Normal ECG When compared with ECG of 18-May-2024 08:29, No significant change was found Referred By: Milvia Aldrich Electronically Signed By: HILTON DONATO MD
--- NOTE | 2024-06-03 14:44 | PC.NURSE ---
Report given to Nichole Veliz RN
[2024-06-03 15:12] LABS: Appearance Urine Clear; Color Urine Yellow; Glucose Urine UA Negative (Negative); Leukocyte Esterase Urine Negative (Negative); Nitrite Urine Negative (Negative); PH 5.5 (5.0-9.0); Specific Gravity - Urine 1.015 (1.005-1.025); UMIC TRIGGER UACC YES; Urine Blood Small (1+) (Negative); Urine Ketones Negative (Negative); Urine Protein Negative (Neg-Trace)
[2024-06-03 15:19] LABS: Amphetamine Screen Urine Not Detected (Not Detect); Barbiturates, Urine Not Detected (Not Detect); Benzodiazepines Screen Urine Not Detected (Not Detect); Buprenorphine Scr Not Detected (Not Detect); Cannabinoid Screen Urine Not Detected (Not Detect); Cocaine Screen Urine Not Detected (Not Detect); Fentanyl, urine Not Detected (Not Detect); Methadone Screen, Urine Not Detected (Not Detect); Opiate Screen Urine Not Detected (Not Detect); Oxycodone Screen Urine Not Detected (Not Detect); Phencyclidine Screen Urine Not Detected (Not Detect)
[2024-06-03] MEDS: Ondansetron ODT 4 MG TAB.RAPDIS TRANSLINGU (15:23)
[2024-06-03 15:24] LABS: Bacteria Urine None Seen (None Seen); Hyaline Casts Urine 0-2 /LPF (0-2); RBC Urine 0-2 /HPF (0-2); Squamous Epithelial Cell Urine 0-2 /HPF (0-2); WBC Urine 0-5 /HPF (0-5)
[2024-06-03 15:34] LABS: MANUAL DIFF FLAG NO
[2024-06-03 15:36] LABS: Basophils Percent Auto 0.4 % (0-2); Eosinophils Absolute Auto 0.3 X10*3/uL (0.0-0.4); Eosinophils Percent Auto 3.2 % (0-4); Hematocrit 39.2 % (42.0-52.0); Hemoglobin 12.8 g/dl (14.0-18.0); Imm Gran Abs Auto 0.02 X10*3/uL (0.00-0.03); Imm Gran Pct Auto 0.3 % (0.0-0.4); Lymphocytes Absolute Auto 1.2 X10*3/uL (1.2-4.9); Lymphocytes Percent Auto 15.2 % (20-40); Mean Corpuscular HGB Conc 32.7 g/dl (31.0-36.0); Mean Corpuscular Hemoglobin 29.4 pg (27.0-33.0); Mean Corpuscular Volume 90.1 fL (80.0-98.0); Mean Platelet Volume 10.5 fL (9.4-12.4); Monocytes Absolute Auto 0.4 X10*3/uL (0.1-1.2); Monocytes Percent Auto 4.6 % (2-11); Neutrophils Percent Auto 76.3 % (45-73); Platelet Count 216 X10*3/uL (160-400); Red Blood Count 4.35 X10*6/uL (4.60-5.80); Red Cell Distribution Width 15.7 % (11.0-16.0); White Blood Count 7.8 X10*3/uL (4.8-10.8)
--- NOTE | 2024-06-03 15:40 | PC.NURSE ---
pt speaking w/ care team at this time. plan of care ongoing.
[2024-06-03 15:45] LABS: Prothrombin Time 11.5 SEC (10.9-12.4)
[2024-06-03 16:00] LABS: Alanine Aminotransferase 17 U/L (0-40); Albumin Level 3.8 g/dL (3.5-5.0); Alkaline Phosphatase 79 U/L (39-117); Anion Gap 11 (12-20); Aspartate Amino Transferase 22 U/L (5-37); Bilirubin Total 0.4 mg/dL (0.0-1.0); Blood Urea Nitrogen 28 mg/dL (9-16); Calcium 8.8 mg/dL (8.4-10.2); Carbon Dioxide 29 mmol/L (22-29); Chloride 108 mmol/L (96-108); Creatinine Clr Calc Pharmacy 73.3; Estimated Glomerular Filt Rate 53; Ethanol 11 mg/dL; Glucose Random 90 mg/dL (60-115); Lipase 35 U/L (8-78); Magnesium 1.8 mg/dL (1.6-2.6); Potassium 4.8 mmol/L (3.3-5.1); Sodium 143 mmol/L (135-145); Total Protein 7.1 g/dL (6.5-8.0)
[2024-06-03 16:10] LABS: Troponin-I High Sensitivity 4.3 ng/L (<3.5-35.0)
[2024-06-03 16:12] LABS: Influenza A PCR NEGATIVE (Negative); Influenza B PCR NEGATIVE (Negative); Resp Syncy Virus RNA Qual PCR NEGATIVE (Negative); SARS COV2 PCR INHOUSE NEGATIVE (Negative)
--- OUTSIDE RECORDS SUMMARY | 2024-06-03 16:29 | XMS_ITS ---
Author Organization [facility] Address [address] [place] [address] Care Team Providers Care Supervisor Boiler Repair Name Role Phone Fox Ku MD Primary Care Provider Tashi Bruno Unavailable [phone] Alisha Moore Unavailable Unavailable ALLERGIES No Known [...] adenomatous polyp of colon (Z86.010) Active confirmed 858576913 Problem Colon cancer screening (Z12.11) Active confirmed 342008803 Problem Preprocedural examination (Z01.818) Active confirmed 620109408811854 Problem Gastroesophageal reflux disease without esophagitis (K21.9) Active confirmed 367243223 VITAL SIGNS BMI 40.13 kg/m2 04/17/2023 Blood pressure systolic 00 mm Hg 04/17/20 23 Blood pressure diastolic 00 mm Hg 023 Height 67.75 in 04/17/2023 Temperature 97.7 degrees Fahrenheit 04/17/20 23 Weight 262 lbs 04/17/2023 Encounters Encounter Location Date Provider Diagnosis [facility] [address] [place] [address] 04/17/2023 Tashi Currie Preprocedural examin ation Z01.818 [...]
--- OUTSIDE RECORDS SUMMARY | 2024-06-03 16:29 | XMS_ITS | Clinical Summary ---
Author Organization [facility] Address [address] [place] [address] Care Team Providers Care Pointer Helper Name Role Phone Bon Arvizu MD Primary Care Provider [phone] Allergies No known active allergies Medications Ventolin HFA 108 (90 Base) MCG/ACT inhaler TAKE 2 PUFFS BY MOUTH EVERY 4 HOURS NEEDED FOR WHEEZE 3 Active atenolol (TENORMIN) 25 MG tablet Take 25 mg by mouth 1 (one) time each day 3 Active atorvastatin (LIPITOR) 40 MG tablet Take 40 mg by mouth 1 (one) time each day 3 Active cholecalcifero l (VITAMIN D-3) 50 MCG (2000 UT) capsule Take by mouth 1 (one) time each day 3 Active escitalopram (LEXAPRO) 20 MG tablet Take 20 mg by mouth 1 (one) time each day in the morning 3 Active ferrous sulfate 325 (65 Fe) MG tablet Take 1 tablet by mouth 1 (one) time each day 3 Active Lantus SoloStar 100 UNIT/ML injection INJECT 20 UNIT (0.2 ML) SUBCUTANEOUSLY EVERY EVENING FOR 30 DAYS 3 Active BD Pen Needle Estrella 2nd Gen 32G X 4 MM misc See administration instructions 3 Active metFORMIN (GLUCOPHAGE) 1000 MG tablet Take 1,000 mg by mouth 3 Active omeprazole (PriLOSEC) [address] capsule TAKE 1 CAPSULE BY MOUTH DAILY FOR 90 DAYS 3 Active tamsulosin (FLOMAX) 0.4 MG 24 hr capsule TAKE 1 CAPSULE BY MOUTH AT BEDTIME FOR 30 DAYS 3 Active Blood Pressure Monitoring (Omron 10 Series BP Monitor) device 1 Units 1 (one) time each day 1 each 4 Active Active Problems No known active problems Family History Medical History Relation Comments Hypertension Father Kidney disease Father Cancer Mother Relation Status Comments Father Mother Social History Tobacco Use Types Packs/Day Years Used Date Smoking Tobacco: Never Assessed Sex and Gender Information Value Date Recorded Sex Assigned at Not on file Legal Sex Male 5:04 PM EST Gender Identity Not on file Sexual Orientation Not on file Last Filed Vital Signs Vital Sign Reading Time Taken Comments Blood Pressure 149/94 01/28/2024 1:08 PM EDT Pulse 64 01/28/2024 1:08 PM EDT Temperature - - Respiratory Rate - - Oxygen Saturation 93% 01/28/2024 1:08 PM EDT Inhaled Oxygen Concentration - - Weight 116 kg (256 lb) 01/28/2024 1:08 PM EDT Height 172.7 cm (5' 8 ) 01/28/2024 1:08 PM EDT Body Mass Index 38.92 01/28/2024 1:08 PM EDT Plan of Treatment Upcoming Encounters Date Type Department Care Team (Late st Contact Info) Description 08/04/2024 1:15 PM EDT Office Visit [facility] [address] [place] [address] Tashi Bonner MD [address] [facility] [address] [place] [id number] Health Maintenance Due Date Last Done Comments Pneumococcal Vaccine: Pediat rics (0 to 5 Years) and At-Risk Patients (6 to 64 Years) (1 of 2 - PCV) 1976 Hepatitis B Vaccine (1 of 3 - 19+ 3-dose series) 09/03 Colorectal Cancer Screening: Annual FOBT 09/04/2019 Colorectal Cancer Screening: Colonoscopy 09/04/2019 Colorectal Cancer Screening: Sigmoidoscopy 09/04/2019 Diabetes: Hemoglobin A1C 09/25/2022 Diabetes: Ophthalmology Exam 09/25/2022 Diabetes: Pedal Pulse Checked 09/25/2022 Diabetes: Sensory Foot Exam 09/25/2022 Diabetes: Visual Foot Exam 09/25/2022 Influenza Vaccine (#1) [address] [place] [address] [place] [address] [place] [address] Care Teams Pointer Helper Relationship Specialty Start Date End Date Bon Arvizu MD [address] [place] [address] PCP - General Internal Medicine 06/04/22
--- OUTSIDE RECORDS SUMMARY | 2024-06-03 16:29 | XMS_ITS | Clinical Summary ---
Author Organization [facility] Address [address] [place] [address] Care Team Providers Care Pizza Delivery Driver Name Role Phone Unavailable Primary Care Provider Unavailabl e Social History Tobacco Use Types Packs/Day Years Used Date Smoking Tobacco: Never Assessed Sex and Gender Information Value Date Recorded Sex Assigned at Not on file Gender Identity Not on file Sexual Orientation Not on file Plan of Treatment Health Maintenance Due Date Last Done Comments Hepatitis C Virus Screening 1970 HIV Screening 09/04/1983 DTaP/Tdap/Td Vaccines (1 - Tdap) 1989 Hepatitis B Vaccines (1 of 3 - 19+ 3-dose series) 1989 Pneumococcal Vaccines 50+ (1 of 1 - PCV) 2020 Zoster (Shingles) Vaccine (1 of 2) 2020 COVID-19 Vaccine ( - 2023-2 5 season) 2024 Pneumococcal Vaccine: Pediat dora (0-5 Years) and At-Risk Patients (6 to 49 Years) Aged Out No longer eligible b ased on patient's age to complete this topic
--- OUTSIDE RECORDS SUMMARY | 2024-06-03 16:30 | XMS_ITS | Encounter Summary ---
Author Organization [facility] Address [address] [place] [address] Care Team Providers Care Quad Stayer Name Role Phone Unavailable Primary Care Provider Unavailabl e Encounter Details Date Type Department Care Team (Late st Contact Info) Description 12/23/2021 Scanned Document [facility] [address] [place] [id number] Gastroenterology, Scan Social History Tobacco Use Types Packs/Day Years Used Date Smoking Tobacco: Never Assessed Sex and Gender Information Value Date Recorded Sex Assigned at Not on file Gender Identity Not on file Sexual Orientation Not on file documented as of this encounter Plan of Treatment Not on file documented as of this encounter Visit Diagnoses Not on filedocumented in this encounter
--- OUTSIDE RECORDS SUMMARY | 2024-06-03 16:30 | XMS_ITS | Patient Health Record ---
Author Organization [facility] Address [address] [place] [address] Care Team Providers Care Bearing Press Machine Operator Name Role Phone Fox Ku MD Primary Care Provider Tashi Bruno Unavailable [phone] Alisha Moore Unavailable Unavailable ALLERGIES No Known Allergies RESULTS Component Value Reference Range Notes Pathology (Not yet reviewed by provider) Interpretation: Performing Lab:[facility], [address] [place] [phone] Notes/Report: Glucose, Whole Blood Reviewed date:07/13/2023 07:14:58 PM Interpretation: Performing Lab:[facility], [address] [place] [phone] Notes/Report: Glucose, Whole Blood 114 60-115 mg/dL METER # : [id number] REASON FOR REFERRAL No Information MEDICATIONS Medication [...] iron deficiency anemia type (D50.9) Active confirmed 58481858 Problem History of adenomatous polyp of colon (Z86.010) Active confirmed 274459720 Problem Colon cancer screening (Z12.11) Active confirmed 676884117 Problem Preprocedural examination (Z01.818) Active confirmed 573381474008822 Problem Gastroesophageal reflux disease without esophagitis (K21.9) Active confirmed 635374463 Problem Diverticulosis of large intestine without perforation or abscess without bleeding (K57.30) Active confirmed Diverticul ar disease of colon (836738805) Encounters Encounter Location Date Provider Diagnosis [facility] [place] [address] [place] [phone] 07/13/2023 Tashi Currie Encounter for scre ening [...] Insured Coverage Start Date Coverage End Date [facility] [employer] [facility] [address] [address] [place], [place] [id number] KIAN MAHMOOD Self - patient is the insured MEDICAID OF [place] [address] [place] [address] [id number] KIAN MAHMOOD Self - patient is the insured MEDICAL (GENERAL) HISTORY Medical History History ICD Code IDDM Hypertension Heart murmur-Dr. Collins Asthma/COPD- Dr. Correa Pulmonary embolus in 2015--on Coumadin-- sees Dr. Moore Lung mass--surgery in 2008 a s below, with XRT; biopsied in approx 2015 and benign--followed by Dr. Tino Dimas [place],CVA,renal disease GERD--upper endoscopy August of 2017 with [...] History Surgery Date(Month/Year) Mass removed--Dr. Fields at [facility]-- Be nign , but had XRT 2008 Right inguinal hernia 1990 Ear tubes/Adenoids
--- OUTSIDE RECORDS SUMMARY | 2024-06-03 16:30 | XMS_ITS ---
Author Organization [facility] Address [address] [place] [address] Care Team Providers Care Folder Machine Adjuster Name Role Phone Fox Ku MD Primary Care Provider Tashi Bruno Unavailable [phone] Alisha Moore Unavailable Unavailable REASON FOR VISIT screening,hx polyps PROBLEMS Problem Type ICD Code Onset Dates Problem Status W/U Status Risk SNOMED Code Notes Problem Diverticulosis of large intestine without perforation or abscess without bleeding (K57.30) Active confirmed Diverticul ar disease of colon (520043532) Encounters Encounter Location Date Provider Diagnosis [facility] [place] [address] [place] [phone] 07/13/2023 Tashi Currie Encounter for scre ening [...]
--- OUTSIDE RECORDS SUMMARY | 2024-06-03 16:30 | XMS_ITS ---
Author Organization [facility] Address [address] [place] [address] Care Team Providers Care Professor Of Social Work Name Role Phone Fox Ku MD Primary Care Provider Tashi Bruno [phone] Alisha Moore Unavailable Unavailable REASON FOR VISIT [...] Active Encounters Encounter Location Date Provider Diagnosis [facility] [address] [place] [phone] 04/17/2023 Tashi Currie PLAN OF TREATMENT Medication [...]
--- NOTE | 2024-06-03 16:41 | PC.NURSE ---
medication reconciliation completed. provider notified/aware.
--- NOTE | 2024-06-03 20:03 | PHA.MEDREC ---
Pharmacy Consult ? Medication Reconciliation Pharmacy has reviewed the medication reconciliation done by nursing staff. Patient was transferred from [address] 06/03/24 to [facility].
[2024-06-03] MEDS: Docusate Sodium 100 MG CAPSULE PO (21:25)
[2024-06-03] MEDS: Melatonin 3 MG TABLET 6 MG PO (21:25)
[2024-06-03] MEDS: Thiamine HCL 100 MG TABLET PO (21:25)
[2024-06-03] MEDS: metFORMIN HCl 1,000 MG TABLET 1000 MG PO (21:26)
[2024-06-03] MEDS: HaloperidoL 1 MG TABLET 2 MG PO (21:26)
[2024-06-03] MEDS: Tamsulosin HCL 0.4 MG CAPSULE PO (21:26)
[2024-06-03] MEDS: Albuterol Sulfate 90 MCG 8 GM INHALER 2 PUFF INHALE (21:54)
[2024-06-03 23:56] VITALS: BP 110/55; PULSE 60; RESP 17; TEMP 36.8; O2SAT 95
--- NOTE | 2024-06-04 02:49 | PC.NURSE ---
pt calm and cooperative ambulatory out of room to use restroom. pt requested gingerale at this time pt back to room independently verbalized no new needs at this time
[2024-06-04] MEDS: Omeprazole 40 MG CAPSULE.DR PO (06:25)
--- NOTE | 2024-06-04 06:28 | PC.NURSE ---
pt medicated according to ayana calm and cooperative sitting in common area watching tv
--- NOTE | 2024-06-04 08:37 | PC.NURSE ---
patient calm and cooperative, offering no complaints to this RN. Continue plan of care for respite bedsearch
[2024-06-04] MEDS: buPROPion HCl XL 150 MG TAB.ER.24H PO (08:50)
[2024-06-04] MEDS: HaloperidoL 1 MG TABLET PO (08:50)
[2024-06-04] MEDS: Ferrous Sulfate 324 MG TABLET.DR PO (08:50)
[2024-06-04] MEDS: Escitalopram Oxalate 20 MG TABLET PO (08:50)
[2024-06-04] MEDS: atenoloL 25 MG TABLET PO (08:50)
[2024-06-04] MEDS: Thiamine HCL 100 MG TABLET PO (08:50)
[2024-06-04] MEDS: Atorvastatin Calcium 40 MG TABLET PO (08:50)
[2024-06-04] MEDS: metFORMIN HCl 1,000 MG TABLET 1000 MG PO (08:50)
[2024-06-04] MEDS: Cholecalciferol (Vitamin D3) 25 MCG TABLET 50 MCG PO (08:50)
--- NOTE | 2024-06-04 08:52 | MHC.CARE ---
Per Silas with [facility], they may have a male bed today and he requested the assessment be faxed, any other documentation needed he will call to request. Fax sent successfully at 840a. Per Francisco at [facility], they do not anticipate beds today, however encouraged t/w to call later this afternoon as well.
--- NOTE | 2024-06-04 08:54 | PC.NURSE ---
holding off on am lantus at this time due to decreased blood sugar and patient eating minimally, plan for check around 10am
[2024-06-04 08:57] LABS: Glucose, Whole Blood 97 mg/dL (60-115)
[2024-06-04 12:58] LABS: Glucose, Whole Blood 88 mg/dL (60-115)
[2024-06-04 14:06] VITALS: BP 129/68; PULSE 56; RESP 14; TEMP 36.6; O2SAT 97
[2024-06-04 16:31] VITALS: BP 109/66; PULSE 84; RESP 16; TEMP 36.3; O2SAT 97
== END 2024-06-04 16:32 | disposition home or self-care (01) ==
PROVIDERS: Registered Nurse Emergency; Emergency Provider Emergency Medicine; PCP Internal Medicine
DX: R11.2 Nausea with vomiting, unspecified (principal); R45.851 Suicidal ideations; J44.9 Chronic obstructive pulmonary disease, unspecified; E11.9 Type 2 diabetes mellitus without complications; R10.2 Pelvic and perineal pain; R07.89 Other chest pain; Z79.4 Long term (current) use of insulin; Z79.899 Other long term (current) drug therapy; Z51.81 Encounter for therapeutic drug level monitoring; Z03.818 Encounter for observation for suspected exposure to other biological agents ruled out
CPT/HCPCS: 0241U; 80053; 80307; 81001; 82947; 83690; 83735; 84484; 85025; 85610; 93005; 99285; S9485

== ENCOUNTER → 2024-06-03 14:44 | Outpatient (BNV) | payer OTHER, SELFPAY | PROVIDERS: Emergency Provider Emergency Medicine; PCP Internal Medicine; Visit Provider Internal Medicine Cardiovascular Disease | DX: R10.9 Unspecified abdominal pain (principal) | CPT/HCPCS: 93010 ==

== ENCOUNTER 2024-06-09 14:42 | Inpatient (IN) | payer OTHER, SELFPAY ==
--- NOTE | ~2024-06-09 | XR_ITS ---
CLINICAL HISTORY: chest pain 1 view chest x-ray Comparison: CR/SR - XR CHEST 2V - 12/08/23 14:13 EDT Findings: No consolidation or effusion. Heart size is normal. No acute fracture. IMPRESSION: 1. No acute findings. This document has been electronically signed by: Ayden Tripathi MD on 06/09/2024 17:40:43
[2024-06-09 14:48] VITALS: BP 111/74; PULSE 66; O2SAT 100
--- NOTE | 2024-06-09 14:53 | ECG_ITS ---
Test Reason : CP Blood Pressure : */* mmHG Vent. Rate : 62 BPM Atrial Rate : 62 BPM P-R Int : 136 ms QRS Dur : 100 ms QT Int : 424 ms P-R-T Axes : 13 -5 9 degrees QTcB Int : 430 ms Normal sinus rhythm Minimal voltage criteria for LVH, may be normal variant ( R in aVL ) Borderline ECG When compared with ECG of 03-Jun-2024 15:15, No significant change was found Referred By: Generic ED Physician Electronically Signed By: BRIGITTE RASMUSSEN
[2024-06-09 15:00] VITALS: BP 129/61; PULSE 66; RESP 18; TEMP 36.7; O2SAT 97; BMI 37.1
--- NOTE | 2024-06-09 15:20 | PC.NURSE ---
During triage, pt endorsed feelings of vague SI (no plan), depression and poor PO intake. Denies HI. Pt changed over with security, belongings secured in [place]. 1:1 sitter
[2024-06-09 15:48] LABS: MANUAL DIFF FLAG NO
[2024-06-09 15:49] LABS: Basophils Percent Auto 0.5 % (0-2); Eosinophils Absolute Auto 0.2 X10*3/uL (0.0-0.4); Eosinophils Percent Auto 1.9 % (0-4); Hematocrit 41.6 % (42.0-52.0); Hemoglobin 13.8 g/dl (14.0-18.0); Imm Gran Abs Auto 0.03 X10*3/uL (0.00-0.03); Imm Gran Pct Auto 0.3 % (0.0-0.4); Lymphocytes Absolute Auto 1.2 X10*3/uL (1.2-4.9); Lymphocytes Percent Auto 14.1 % (20-40); Mean Corpuscular HGB Conc 33.2 g/dl (31.0-36.0); Mean Corpuscular Hemoglobin 29.6 pg (27.0-33.0); Mean Corpuscular Volume 89.1 fL (80.0-98.0); Mean Platelet Volume 10.5 fL (9.4-12.4); Monocytes Absolute Auto 0.4 X10*3/uL (0.1-1.2); Monocytes Percent Auto 4.8 % (2-11); Neutrophils Absolute Auto 6.9 x10*3/uL (2.0-8.3); Neutrophils Percent Auto 78.4 % (45-73); Platelet Count 191 X10*3/uL (160-400); Red Blood Count 4.67 X10*6/uL (4.60-5.80); Red Cell Distribution Width 15.8 % (11.0-16.0); White Blood Count 8.8 X10*3/uL (4.8-10.8)
[2024-06-09 16:27] LABS: Acetaminophen LAB < 3 mcg/mL (<30); Salicylate < 5.0 mg/dL (15-30)
[2024-06-09 16:28] LABS: Troponin-I High Sensitivity 4.4 ng/L (<3.5-35.0)
[2024-06-09 16:34] LABS: Alanine Aminotransferase 13 U/L (0-40); Alkaline Phosphatase 82 U/L (39-117); Anion Gap 13 (12-20); Aspartate Amino Transferase 26 U/L (5-37); Bilirubin Total 0.7 mg/dL (0.0-1.0); Blood Urea Nitrogen 28 mg/dL (9-16); Calcium 9.5 mg/dL (8.4-10.2); Carbon Dioxide 23 mmol/L (22-29); Chloride 108 mmol/L (96-108); Creatinine Clr Calc Pharmacy 70.6; Estimated Glomerular Filt Rate 51; Glucose Random 87 mg/dL (60-115); Influenza A PCR NEGATIVE (Negative); Influenza B PCR NEGATIVE (Negative); Potassium 4.3 mmol/L (3.3-5.1); Resp Syncy Virus RNA Qual PCR NEGATIVE (Negative); SARS COV2 PCR INHOUSE NEGATIVE (Negative); Sodium 140 mmol/L (135-145); Total Protein 7.4 g/dL (6.5-8.0)
[2024-06-09 18:08] VITALS: BP 132/60; PULSE 56; RESP 19; TEMP 36.7; O2SAT 96
[2024-06-09 18:27] LABS: Appearance Urine Clear; Color Urine Yellow; Glucose Urine UA Negative (Negative); Leukocyte Esterase Urine Trace (Negative); Nitrite Urine Negative (Negative); PH 5.5 (5.0-9.0); UMIC TRIGGER UACC YES; Urine Blood Small (1+) (Negative); Urine Ketones Negative (Negative); Urine Protein Negative (Neg-Trace)
[2024-06-09 18:34] LABS: Troponin-I High Sensitivity 4.5 ng/L (<3.5-35.0)
[2024-06-09 18:36] LABS: Amphetamine Screen Urine Not Detected (Not Detect); Barbiturates, Urine Not Detected (Not Detect); Benzodiazepines Screen Urine Not Detected (Not Detect); Buprenorphine Scr Not Detected (Not Detect); Cannabinoid Screen Urine Not Detected (Not Detect); Cocaine Screen Urine Not Detected (Not Detect); Fentanyl, urine Not Detected (Not Detect); Methadone Screen, Urine Not Detected (Not Detect); Opiate Screen Urine Not Detected (Not Detect); Oxycodone Screen Urine Not Detected (Not Detect); Phencyclidine Screen Urine Not Detected (Not Detect)
[2024-06-09 18:42] LABS: Bacteria Urine None Seen (None Seen); Hyaline Casts Urine 0-2 /LPF (0-2); Squamous Epithelial Cell Urine 0-2 /HPF (0-2); WBC Urine 0-5 /HPF (0-5)
--- NOTE | 2024-06-09 19:10 | ED.CHESTPAIN ---
HPI - Chest Pain General Chief Complaint: Psychiatric Symptoms Stated Complaint: sudden onset chest pain while walking Time Seen by Provider: 06/09/24 18:48 Source: patient Limitations: no limitations History of Present Illness ED Provider: Sherin Bennett PA-C HPI narrative: 53-year-old male with a history of depression, prior psychosis, suicidal ideation, anxiety, asthma, COPD, hyperlipidemia, diabetes, hypertension, obesity, chronic kidney disease, presents with multiple complaints. Patient states he developed acute onset sharp left-sided anterior chest pain. The pain has since resolved. It was nonradiating at the time. When patient arrives to the ER, he had received aspirin and 1 dose of nitro from EMS. At triage, patient admits to worsening depression and vague SI. When asked if patient has a plan for self-harm he states ?whenever I can get my hands on?. Related Data Home Medications ?Medication ?Instructions ?Recorded ?Confirmed insulin glargine-yfgn 100 unit/mL 20 unit subcut DAILY 05/17/24 06/09/24 (3 mL) subcutaneous pen Act Dry Mouth Gum 1 piece of gum PO TID PRN 06/03/24 06/09/24 Moisturizing Gum Previous Rx's ?Medication ?Instructions ?Recorded cholecalciferol (vitamin D3) 50 50 mcg PO DAILY 90 days #90 caps 10/06/23 mcg (2,000 unit) capsule atenolol 25 mg tablet 25 mg PO DAILY #90 tabs 01/20/24 escitalopram oxalate 20 mg tablet 20 mg PO QAM #90 tabs 01/20/24 metformin 1,000 mg tablet 1,000 mg PO BID 90 days #180 tabs 01/20/24 ferrous sulfate 325 mg (65 mg 325 mg PO DAILY #90 tabs 02/29/24 iron) tablet atorvastatin 40 mg tablet 40 mg PO DAILY 90 days #90 tabs 03/26/24 omeprazole 40 mg capsule,delayed 40 mg PO DAILY 90 days #90 caps 03/26/24 release bupropion HCl 150 mg 24 hr tablet, 150 mg PO QAM 30 days #30 tabs 03/27/24 extended release Ventolin HFA 90 mcg/actuation 2 puff PO Q4H PRN for wheezing #18 03/29/24 aerosol inhaler (albuterol sulfate) ea tamsulosin 0.4 mg capsule 0.4 mg PO BEDTIME 30 days #90 caps 12/13/24 trazodone 50 mg tablet 50 mg PO BEDTIME PRN sleep #90 tabs 04/22/24 meclizine 25 mg tablet 25 mg PO TID PRN dizziness #20 tabs 05/02/24 betamethasone, augmented 0.05 % 1 appl topical BID #15 grams 06/02/24 topical cream docusate sodium 100 mg capsule 100 mg PO BEDTIME #30 caps 06/02/24 haloperidol 1 mg tablet 1 mg PO DAILY #30 tabs 06/02/24 haloperidol 1 mg tablet 2 mg (2 x 1 mg) PO BEDTIME #30 tabs 06/02/24 melatonin 3 mg tablet 6 mg (2 x 3 mg) PO BEDTIME #30 tabs 06/02/24 thiamine mononitrate (vit B1) 100 100 mg PO BID #60 tabs 06/02/24 mg tablet white petrolatum-mineral oil 1 appl topical TID #15 grams 06/02/24 topical cream (Dermacerin topical cream) Allergies Allergy/AdvReac Type Severity Reaction Status Date / Time pollen extracts [POLLEN] Allergy Mild RUNNY NOSE Verified 06/09/24 15:01 cat dander [CATS] Allergy Unknown UNKNOWN Verified 06/03/24 14:41 dog dander [DOGS] Allergy Unknown UNKNOWN Verified 06/03/24 14:41 mold [MOLD] Allergy Unknown UNKNOWN Verified 06/03/24 14:41 Review of Systems Review of Systems: Yes all other systems are reviewed and are negative Constitutional: Constitutional: Denies fatigue and Denies fever(s) Cardiovascular: Cardiovascular: Denies chest pain and Denies dyspnea Respiratory: Respiratory: Denies cough and Denies dyspnea Gastrointestinal: Gastrointestinal: Denies abdominal pain, Denies nausea and Denies vomiting Endocrine: Endocrine: Denies fatigue [facility] Past Medical History Attestation statement: The following information was validated with the patient. Medical History Recurrent major depression Allergic rhinitis Insomnia Palpitations Vitamin D deficiency Chronic kidney disease, stage III (moderate) GERD without esophagitis Restrictive lung disease Obesity (BMI 30-39.9) Benign essential hypertension Pure hypercholesterolemia Diabetes mellitus Pulmonary emboli Chondrosarcoma Hyperlipidemia Chronic restrictive lung disease COPD (chronic obstructive pulmonary disease) Asthma Surgical History History of esophagogastroduodenoscopy (EGD) H/O colonoscopy History of inguinal hernia repair Hx of exploratory thoracotomy H/O tooth extraction Family History Family History Father Hypertension Kidney failure, acute Mother Lung cancer Family/Other Diabetes Social History Social History Household Members: None Housing: House Do you presently have visiting nurse or other home services: No Alcohol intake: never Patient Tobacco Use Status: Never used Tobacco Smoked in Last 30 Days: No e-Cigarette/Vaping Use: Never Used Second Hand Smoke Exposure: Yes Use of substances other than those prescribed or required for medical reasons: No Advance Directives: No Advance Directives Information Provided: Yes service: No Current occupational status: unemployed Sexual orientation: Unable to collect Cognitive needs: No Hearing needs: No Vision needs: Yes (Glasses) Physical Exam Vital Signs: Vital Signs: Last Vital Signs Temp 98.1 F 06/09/24 18:08 Pulse 56 06/09/24 18:08 Resp 19 06/09/24 18:08 BP 132/60 06/09/24 18:08 Pulse Ox 96 06/09/24 18:08 O2 Del Method Room Air 06/09/24 18:08 BMI result Body Mass Index 37.1 Const: Other: Alert, Orientation/consciousness: patient oriented x3 Resp: Effort & Inspection: normal respiratory effort Cardio: Other: Normal peripheral perfusion Skin: Other: Warm dry no rash Neuro: General: patient oriented x3, gait normal, no focal motor deficits and CN's II-XI intact bilaterally Psych: Other: Cooperative Course Course Course Narrative: Patient will remain in the ER overnight, pending psychiatric consult and discharge Reevaluation(s) Reevaluation #1: The care team assessed the patient, the patient was just released from [facility] respite today, following an inpatient admission, which between the 2 sites he has been in their care for 3 months. The initial plan was to have the patient discharged in the morning, the care team was going to organize outpatient services through [facility]. As they were having this conversation, the patient has started making comments in regard to ?well if you discharge me what if I get a knife to hurt myself ?. It appears the patient is malingering, he admitted that he ?just wants someone to talk to?. The care team is requesting that we place a psychiatric consult. Medications Administered Generic Name Dose Route Start Last Admin Trade Name Conner PRN Reason Stop Dose Admin Bupropion HCl 150 mg 06/09/24 21:45 06/09/24 21:47 Bupropion Hcl Xl 150 Mg Tab.Er.24h PO Not Given DAILY DANIEL Docusate Sodium 100 mg 06/09/24 21:45 06/09/24 22:25 Docusate Sodium 100 Mg Capsule PO Not Given BEDTIME DANIEL Escitalopram Oxalate 20 mg 06/09/24 21:45 06/09/24 21:48 Escitalopram Oxalate 20 Mg Tablet PO Not Given DAILY DANIEL Haloperidol 2 mg 06/09/24 21:45 06/09/24 23:31 Haloperidol 1 Mg Tablet PO 2 mg BEDTIME DANIEL Administration Metformin HCl 1,000 mg 06/09/24 21:45 06/09/24 23:31 Metformin Hcl 1,000 Mg Tablet PO 1,000 mg BID DANIEL Administration Tamsulosin HCl 0.4 mg 06/09/24 21:45 06/09/24 23:31 Tamsulosin Hcl 0.4 Mg Capsule PO 0.4 mg BEDTIME DANIEL Administration Thiamine HCl 100 mg 06/09/24 21:45 06/09/24 23:32 Thiamine Hcl 100 Mg Tablet PO 100 mg BID DANIEL Administration Medical Decision Making Medical Decision Making [facility] Narrative: 53-year-old male with a history of depression, prior psychosis, suicidal ideation, anxiety, asthma, COPD, hyperlipidemia, diabetes, hypertension, obesity, chronic kidney disease, presents with multiple complaints. Patient states he developed acute onset sharp left-sided anterior chest pain. The pain has since resolved. It was nonradiating at the time. When patient arrives to the ER, he had received aspirin and 1 dose of nitro from EMS. At triage, patient admits to worsening depression and vague SI. When asked if patient has a plan for self-harm he states ?whenever I can get my hands on?. Problem: Hyperlipidemia, diabetes, hypertension, obesity , psychiatric illness History: Per patient I have considered the following differential diagnoses: ACS, decompensated psychiatric illness, drug/alcohol intoxication, SI, HI Plan: ACS was clearly considered, the patient has all the risk factors for coronary artery disease. Screening labs including cardiac enzymes EKG and chest x-ray were obtained. We will be referring the patient to the care team. Serum ethanol and U tox to be obtained. I have independently reviewed the following tests: Labs: No leukocytosis, not anemic, creatinine at baseline, troponin x2 are flat EKG: Normal sinus rhythm, rate of 62, no ischemic changes no ectopy Chest x-ray:Findings: No consolidation or effusion. Heart size is normal. No acute fracture. IMPRESSION: 1. No acute findings. This document has been electronically signed by: Ayden Tripathi MD on 06/09/2024 17:40:43 Lab Data 06/09/24 15:43 06/09/24 15:43 Labs: Lab Results 06/09/24 06/09/24 06/09/24 Range/Units 15:43 18:04 18:19 WBC 8.8 (4.8-10.8) X10*3/uL RBC 4.67 (4.60-5.80) X10*6/uL Hgb 13.8 L (14.0-18.0) g/dl Hct 41.6 L (42.0-52.0) % MCV 89.1 (80.0-98.0) fL MCH 29.6 (27.0-33.0) pg MCHC 33.2 (31.0-36.0) g/dl RDW 15.8 (11.0-16.0) % Plt Count 191 (160-400) X10*3/uL MPV 10.5 (9.4-12.4) fL Immature Gran % (Auto) 0.3 (0.0-0.4) % Neut % (Auto) 78.4 H (45-73) % Lymph % (Auto) 14.1 L (20-40) % [place] % (Auto) 4.8 (2-11) % Eos % (Auto) 1.9 (0-4) % Baso % (Auto) 0.5 (0-2) % Lymph # (Auto) 1.2 (1.2-4.9) X10*3/uL [place] # (Auto) 0.4 (0.1-1.2) X10*3/uL Eos # (Auto) 0.2 (0.0-0.4) X10*3/uL Baso # (Auto) 0.0 (0.0-0.2) X10*3/uL Abs Immat Gran (auto) 0.03 (0.00-0.03) X10*3/uL Absolute Neuts (auto) 6.9 (2.0-8.3) x10*3/uL Absolute Nucleated RBC 0.000 (0.0-0.012) X10*3/uL Nucleated RBC % (auto) 0.0 (0.0-0.2) /100WBC Sodium 140 (135-145) mmol/L Potassium 4.3 (3.3-5.1) mmol/L Chloride 108 (96-108) mmol/L Carbon Dioxide 23 (22-29) mmol/L Anion Gap 13 (12-20) BUN 28 H (9-16) mg/dL Creatinine 1.46 H (0.5-1.4) mg/dL Estim Creat Clear Calc 70.6 Estimated GFR 51 Random Glucose 87 (60-115) mg/dL Calcium 9.5 D (8.4-10.2) mg/dL Total Bilirubin 0.7 (0.0-1.0) mg/dL AST 26 (5-37) U/L ALT 13 (0-40) U/L Alkaline Phosphatase 82 (39-117) U/L Troponin I High Sens 4.4 4.5 (<3.5-35.0) ng/L Total Protein 7.4 (6.5-8.0) g/dL Albumin 4.0 (3.5-5.0) g/dL Urine Color Yellow Urine Appearance Clear Urine pH 5.5 (5.0-9.0) Ur Specific [place] 1.020 (1.005-1.025) Urine Protein Negative (Neg-Trace) mg/dL Urine Glucose (UA) Negative (Negative) mg/dL Urine Ketones Negative (Negative) mg/dL Urine Blood Small (1+) H (Negative) Urine Nitrite Negative (Negative) Ur Leukocyte Esterase Trace H (Negative) Urine RBC 3-5 H (0-2) /HPF Urine WBC 0-5 (0-5) /HPF Ur Squamous Epith Cells 0-2 (0-2) /HPF Urine Bacteria None Seen (None Seen) Hyaline Casts 0-2 (0-2) /LPF Salicylates < 5.0 L (15-30) mg/dL Urine Opiates Screen Not Detected (Not Detect) Ur Buprenorphine Scrn Not Detected (Not Detect) ng/mL Ur Oxycodone Screen Not Detected (Not Detect) ng/mL Urine Methadone Screen Not Detected (Not Detect) ng/mL Urine Fentanyl Screen Not Detected (Not Detect) Acetaminophen < 3 (<30) mcg/mL Ur Barbiturates Screen Not Detected (Not Detect) Ur Phencyclidine Scrn Not Detected (Not Detect) Ur Amphetamines Screen Not Detected (Not Detect) U Benzodiazepines Scrn Not Detected (Not Detect) Urine Cocaine Screen Not Detected (Not Detect) U Marijuana (THC) Screen Not Detected (Not Detect) Influenza Type A (PCR) NEGATIVE (Negative) Influenza Type B (PCR) NEGATIVE (Negative) RSV RNA Qual (PCR) NEGATIVE (Negative) SARS-CoV-2 RNA (RT-PCR) NEGATIVE (Negative) Discharge Plan Discharge Clinical Impression: Suicidal ideation, Chest pain Patient Disposition: Still a Patient Prescriptions: No Action cholecalciferol (vitamin D3) 50 mcg (2,000 unit) capsule 50 mcg PO DAILY 90 Days Qty: 90 3RF metformin 1,000 mg tablet 1,000 mg PO BID 90 Days Qty: 180 1RF atenolol 25 mg tablet 25 mg PO DAILY Qty: 90 8RF escitalopram oxalate 20 mg tablet 20 mg PO QAM Qty: 90 1RF ferrous sulfate 325 mg (65 mg iron) tablet 325 mg PO DAILY Qty: 90 1RF atorvastatin 40 mg tablet 40 mg PO DAILY 90 Days Qty: 90 1RF omeprazole 40 mg capsule,delayed release(DR/EC) 40 mg PO DAILY 90 Days Qty: 90 1RF bupropion HCl 150 mg tablet extended release 24 hr 150 mg PO QAM 30 Days Qty: 30 1RF albuterol sulfate [Ventolin HFA] 90 mcg/actuation HFA aerosol inhaler 2 puff PO Q4H PRN (Reason: for wheezing) Qty: 18 3RF trazodone 50 mg tablet 50 mg PO BEDTIME PRN (Reason: sleep) Qty: 90 0RF tamsulosin 0.4 mg capsule 0.4 mg PO BEDTIME 30 Days Qty: 90 1RF meclizine 25 mg tablet 25 mg PO TID PRN (Reason: dizziness) Qty: 20 0RF insulin glargine-yfgn 100 unit/mL (3 mL) insulin pen 20 unit subcut DAILY betamethasone, augmented 0.05 % Cream 1 appl topical BID Qty: 15 0RF Protocol: Apply to: Apply to: chest wall haloperidol 1 mg Tablet 2 mg PO BEDTIME Qty: 30 0RF haloperidol 1 mg Tablet 1 mg PO DAILY Qty: 30 0RF melatonin 3 mg Tablet 6 mg PO BEDTIME Qty: 30 0RF docusate sodium 100 mg Capsule 100 mg PO BEDTIME Qty: 30 0RF Dermacerin Cream 1 appl topical TID Qty: 15 0RF Protocol: Apply to: Apply to: affected areas thiamine mononitrate (vit B1) 100 mg Tablet 100 mg PO BID Qty: 60 0RF Act Dry Mouth Gum 1 piece of gum PO TID PRN (Reason: Moisturizing Gum) Interventions: [place]-Suicide Risk Severity Scale Last Done: 06/09/24 16:03 Print Language: Tajik
--- OUTSIDE RECORDS SUMMARY | 2024-06-09 19:21 | XMS_ITS | Clinical Summary ---
Author Organization [facility] Address [address] [place] [address] Care Team Providers Care Manager Family Name Role Phone Unavailable Primary Care Provider [...]
--- OUTSIDE RECORDS SUMMARY | 2024-06-09 19:21 | XMS_ITS ---
Author Organization [facility] Address [address] [place] [address] Care Team Providers Care Wool Hat Finisher Name Role Phone Fox Ku MD Primary Care Provider Tashi Bruno [phone] Alisha Moore Unavailable Unavailable REASON FOR VISIT [...] Active Encounters Encounter Location Date Provider Diagnosis [facility] [address] [place] [id number] 04/17/2023 Tashi Currie PLAN OF TREATMENT Medication [...]
--- OUTSIDE RECORDS SUMMARY | 2024-06-09 19:21 | XMS_ITS ---
Author Organization [facility] Address [address] [place] [address] Care Team Providers Care Flatwork Folder Name Role Phone Fox Ku MD Primary Care Provider Tashi Bruno Unavailable [phone] Alisha Moore Unavailable Unavailable ALLERGIES No Known [...] adenomatous polyp of colon (Z86.010) Active confirmed 454798222 Problem Colon cancer screening (Z12.11) Active confirmed 609914061 Problem Preprocedural examination (Z01.818) Active confirmed 734408249089609 Problem Gastroesophageal reflux disease without esophagitis (K21.9) Active confirmed 240818129 VITAL SIGNS BMI 40.13 kg/m2 04/17/2023 Blood pressure systolic 00 mm Hg 04/17/20 23 Blood pressure diastolic 00 mm Hg 023 Height 67.75 in 04/17/2023 Temperature 97.7 degrees Fahrenheit 04/17/20 23 Weight 262 lbs 04/17/2023 Encounters Encounter Location Date Provider Diagnosis [facility] [address] [place] [address] 04/17/2023 Tashi Currie Preprocedural examin ation Z01.818 [...]
--- OUTSIDE RECORDS SUMMARY | 2024-06-09 19:21 | XMS_ITS | Patient Health Record ---
Author Organization [facility] Address [address] [place] [address] Care Team Providers Care Creative Coordinator Name Role Phone Fox Ku MD Primary Care Provider Tashi Bruno Unavailable [phone] Alisha Moore Unavailable Unavailable ALLERGIES No Known Allergies RESULTS Component Value Reference Range Notes Pathology (Not yet reviewed by provider) Interpretation: Performing Lab:[facility], [address] [place] [id number] Notes/Report: Glucose, Whole Blood Reviewed date:07/13/2023 07:14:58 PM Interpretation: Performing Lab:[facility], [address] [place] [phone] Notes/Report: Glucose, Whole Blood 114 60-115 mg/dL METER # : [id number] REASON FOR REFERRAL No Information MEDICATIONS Medication [...] iron deficiency anemia type (D50.9) Active confirmed 23804025 Problem History of adenomatous polyp of colon (Z86.010) Active confirmed 076621790 Problem Colon cancer screening (Z12.11) Active confirmed 258022910 Problem Preprocedural examination (Z01.818) Active confirmed 705458550374705 Problem Gastroesophageal reflux disease without esophagitis (K21.9) Active confirmed 156573434 Problem Diverticulosis of large intestine without perforation or abscess without bleeding (K57.30) Active confirmed Diverticul ar disease of colon (951581012) Encounters Encounter Location Date Provider Diagnosis [facility] [place] [address] [place] [id number] 07/13/2023 Tashi Currie Encounter for scre ening [...] Insured Coverage Start Date Coverage End Date [facility] [facility] [address] [address] [place], [place] [id number] KIAN MAHMOOD Self - patient is the insured MEDICAID OF [employer] [address] [place] [address] [id number] KIAN MAHMOOD Self - patient is the insured MEDICAL (GENERAL) HISTORY Medical History History ICD Code IDDM Hypertension Heart murmur-Dr. Collins Asthma/COPD- Dr. Correa Pulmonary embolus in 2015--on Coumadin-- sees Dr. Moore Lung mass--surgery in 2008 a s below, with XRT; biopsied in approx 2015 and benign--followed by Dr. Tino Dimas [place],CVA,renal disease GERD--upper endoscopy August of 2017 with [...] History Surgery Date(Month/Year) Mass removed--Dr. Fields at [facility]-- Be nign , but had XRT 2008 Right inguinal hernia 1990 Ear tubes/Adenoids
--- OUTSIDE RECORDS SUMMARY | 2024-06-09 19:21 | XMS_ITS | Encounter Summary ---
Author Organization [facility] Address [address] [place] [address] Care Team Providers Care Beehive Kiln Charcoal Burner Name Role Phone Unavailable Primary Care Provider Unavailabl e Encounter Details Date Type Department Care Team (Late st Contact Info) Description 12/23/2021 Scanned Document [facility] [address] [place] [phone] Gastroenterology, Scan Social History Tobacco Use Types [...]
--- OUTSIDE RECORDS SUMMARY | 2024-06-09 19:21 | XMS_ITS | Clinical Summary ---
Author Organization [facility] Address [address] [place] [address] Care Team Providers Care Preassembler Printed Circuit Board Name Role Phone Bon Arvizu MD Primary Care Provider [phone] Allergies No known active allergies Medications Ventolin [...] Visit [facility] [address] [place] [address] Tashi Bonner MD [address] [facility] [address] [place] [id number] Health Maintenance Due Date Last Done Comments [...] Exam 09/25/2022 Influenza Vaccine (#1) [address] [place] [place] [address] [place] [address] Care Teams Preassembler Printed Circuit Board Relationship Specialty Start Date End Date oBn Arvizu MD [address] [place] [address] PCP - General Internal Medicine 06/04/22
--- OUTSIDE RECORDS SUMMARY | 2024-06-09 19:21 | XMS_ITS ---
Author Organization [facility] Address [address] [place] [address] Care Team Providers Care Director Compensation Name Role Phone Fox Ku MD Primary Care Provider Tashi Bruno Unavailable [phone] Alisha Moore Unavailable Unavailable REASON FOR VISIT screening,hx polyps PROBLEMS Problem Type ICD Code Onset Dates Problem Status W/U Status Risk SNOMED Code Notes Problem Diverticulosis of large intestine without perforation or abscess without bleeding (K57.30) Active confirmed Diverticul ar disease of colon (997855690) Encounters Encounter Location Date Provider Diagnosis [facility] [place] [address] [place] [phone] 07/13/2023 Tashi Currie Encounter for scre ening [...]
--- NOTE | 2024-06-09 20:36 | PC.NURSE ---
patient transitioned from main ed to pod, maintains safe behavior at present, resports last taken meds this am
--- NOTE | 2024-06-09 21:43 | PHA.MEDREC ---
Pharmacy Consult ? Medication Reconciliation Pharmacy has REVIEWED the medication reconciliation COMPLETED BY NURSING.
[2024-06-09] MEDS: HaloperidoL 1 MG TABLET 2 MG PO (23:31)
[2024-06-09] MEDS: Tamsulosin HCL 0.4 MG CAPSULE PO (23:31)
[2024-06-09] MEDS: metFORMIN HCl 1,000 MG TABLET 1000 MG PO (23:31)
[2024-06-09] MEDS: Thiamine HCL 100 MG TABLET PO (23:32)
[2024-06-10] MEDS: Melatonin 3 MG TABLET 6 MG PO ×2 (00:44→21:08)
[2024-06-10 01:11] VITALS: BP 119/64; PULSE 52; RESP 17; TEMP 36.6; O2SAT 96
--- NOTE | 2024-06-10 06:54 | PC.NURSE ---
Assumed care of patient at 0645, patient appears to be sleeping, respirations even and unlabored, no apparent distress noted. continue plan of care for CARE team follow up/psych consult
[2024-06-10 07:12] LABS: Glucose, Whole Blood 78 mg/dL (60-115)
[2024-06-10] MEDS: metFORMIN HCl 1,000 MG TABLET 1000 MG PO ×2 (08:43→21:08)
[2024-06-10] MEDS: Escitalopram Oxalate 20 MG TABLET PO (08:43)
[2024-06-10] MEDS: Thiamine HCL 100 MG TABLET PO ×2 (08:43→21:08)
[2024-06-10] MEDS: Ferrous Sulfate 324 MG TABLET.DR PO (08:43)
[2024-06-10] MEDS: Atorvastatin Calcium 40 MG TABLET PO (08:43)
[2024-06-10] MEDS: buPROPion HCl XL 150 MG TAB.ER.24H PO (08:43)
[2024-06-10] MEDS: atenoloL 25 MG TABLET PO (08:43)
[2024-06-10] MEDS: HaloperidoL 1 MG TABLET PO (08:43)
[2024-06-10] MEDS: Cholecalciferol (Vitamin D3) 25 MCG TABLET 50 MCG PO (08:43)
[2024-06-10] MEDS: Betamethasone Dip Aug 0.05% Cr 15 GM TUBE 1 APPL TOPICAL ×2 (08:44→21:07)
[2024-06-10] MEDS: Mineral Oil/Petrolatum,White 106 GM Tube 1 APPL TOPICAL (08:53)
[2024-06-10] MEDS: Albuterol Sulfate 90 MCG 8 GM INHALER 2 PUFF INHALE ×2 (08:56→21:22)
--- NOTE | 2024-06-10 10:45 | PC.NURSE ---
patient reports he is feeling suicidal with a plan to overdose on pills at home or stab himself. He feel as though if he gets discharged, he will be at risk of harming himself. Patient reporting increased anxiety due to these thoughts. Patient de-escalated verbally with this RN. patient standing in milieu, calm and cooperative, no apparent distress noted at this time
[2024-06-10 12:15] LABS: Glucose, Whole Blood 83 mg/dL (60-115)
--- NOTE | 2024-06-10 13:11 | PM.PSYCN ---
History of Present Illness Date of Service: 06/10/2024 Chief Complaint: sudden onset chest pain while walking Sources of Information: patient interviewed, chart reviewed and crisis/core team assessment reviewed HPI Narrative: Mr. Joseph is a 53 year-old male with hx of depression hallucinations, self harm. Unclear tragectory of his illness and whether is more consistent with mdd with psychosis or a schizoaffective spectrum disorder. Mr. Joseph also seems to be limited in terms of his problem solving skills and more concrete thinking. He was recently discharged from on 06/03/24 after being treated for hallucinations which had commanded him to stab himself, which he did. He reports he stepped down to [facility]S and when he return home he continued to hear voices. He reports he hears voices that are both female and male and that constantly are telling him to harm himself. He reports this morning he was hearing voices telling him to hurt himself and he impulsively tried to choke himself. He report she is worried that voices do not stop and that if he returns home voices will continue until he stabs himself to stop the voices. He reports stress related to his brother asking him to get a job. He reports fair sleep. Past Psychiatric History: IP: OP: PCP prescribes-Dr. Arvizu Trials: Lexapro, Wellbutrin, seroquel and haldol Pt reports a history of issues with anger mgt. [facility] Medical History Recurrent major depression Allergic rhinitis Insomnia Palpitations Vitamin D deficiency Chronic kidney disease, stage III (moderate) GERD without esophagitis Restrictive lung disease Obesity (BMI 30-39.9) Benign essential hypertension Pure hypercholesterolemia Diabetes mellitus Pulmonary emboli Chondrosarcoma Hyperlipidemia Chronic restrictive lung disease COPD (chronic obstructive pulmonary disease) Asthma Surgical History History of esophagogastroduodenoscopy (EGD) H/O colonoscopy History of inguinal hernia repair Hx of exploratory thoracotomy H/O tooth extraction Family History: denies Social History: Born and raised in [place] by both parents. Mother in 2000 and father in 2008 Has a twin brother and two older brothers High school graduate Never , no children Trauma History: medical- tumor L lung 2008. Diagnostics Vital Signs (24Hr): Vital Signs - 24 hr 06/09/24 15:00 06/09/24 18:08 06/10/24 01:11 Temperature 98.1 F 98.1 F 97.8 F Pulse Rate 66 56 52 Respiratory Rate 18 19 17 Blood Pressure 129/61 132/60 119/64 Pulse Oximetry 97 96 96 Oxygen Delivery Method Room Air Room Air Room Air Oxygen Flow Rate 96 BMI result Body Mass Index 37.1 Labs 06/09/24 15:43 06/09/24 15:43 Labs: Laboratory Results - last 48 hr 06/09/24 06/09/24 06/09/24 15:43 18:04 18:19 WBC 8.8 RBC 4.67 Hgb 13.8 L Hct 41.6 L MCV 89.1 MCH 29.6 MCHC 33.2 RDW 15.8 Plt Count 191 MPV 10.5 Immature Gran % (Auto) 0.3 Neut % (Auto) 78.4 H Lymph % (Auto) 14.1 L [place] % (Auto) 4.8 Eos % (Auto) 1.9 Baso % (Auto) 0.5 Lymph # (Auto) 1.2 [place] # (Auto) 0.4 Eos # (Auto) 0.2 Baso # (Auto) 0.0 Abs Immat Gran (auto) 0.03 Absolute Neuts (auto) 6.9 Absolute Nucleated RBC 0.000 Nucleated RBC % (auto) 0.0 Sodium 140 Potassium 4.3 Chloride 108 Carbon Dioxide 23 Anion Gap 13 BUN 28 H Creatinine 1.46 H Estim Creat Clear Calc 70.6 Estimated GFR 51 POC Glucose Random Glucose 87 Calcium 9.5 D Total Bilirubin 0.7 AST 26 ALT 13 Alkaline Phosphatase 82 Troponin I High Sens 4.4 4.5 Total Protein 7.4 Albumin 4.0 Urine Color Yellow Urine Appearance Clear Urine pH 5.5 Ur Specific [place] 1.020 Urine Protein Negative Urine Glucose (UA) Negative Urine Ketones Negative Urine Blood Small (1+) H Urine Nitrite Negative Ur Leukocyte Esterase Trace H Urine RBC 3-5 H Urine WBC 0-5 Ur Squamous Epith Cells 0-2 Urine Bacteria None Seen Hyaline Casts 0-2 Salicylates < 5.0 L Urine Opiates Screen Not Detected Ur Buprenorphine Scrn Not Detected Ur Oxycodone Screen Not Detected Urine Methadone Screen Not Detected Urine Fentanyl Screen Not Detected Acetaminophen < 3 Ur Barbiturates Screen Not Detected Ur Phencyclidine Scrn Not Detected Ur Amphetamines Screen Not Detected U Benzodiazepines Scrn Not Detected Urine Cocaine Screen Not Detected U Marijuana (THC) Screen Not Detected Influenza Type A (PCR) NEGATIVE Influenza Type B (PCR) NEGATIVE RSV RNA Qual (PCR) NEGATIVE SARS-CoV-2 RNA (RT-PCR) NEGATIVE 06/10/24 06/10/24 07:08 12:12 WBC RBC Hgb Hct MCV MCH MCHC RDW Plt Count MPV Immature Gran % (Auto) Neut % (Auto) Lymph % (Auto) [place] % (Auto) Eos % (Auto) Baso % (Auto) Lymph # (Auto) [place] # (Auto) Eos # (Auto) Baso # (Auto) Abs Immat Gran (auto) Absolute Neuts (auto) Absolute Nucleated RBC Nucleated RBC % (auto) Sodium Potassium Chloride Carbon Dioxide Anion Gap BUN Creatinine Estim Creat Clear Calc Estimated GFR POC Glucose 78 83 Random Glucose Calcium Total Bilirubin AST ALT Alkaline Phosphatase Troponin I High Sens Total Protein Albumin Urine Color Urine Appearance Urine pH Ur Specific [place] Urine Protein Urine Glucose (UA) Urine Ketones Urine Blood Urine Nitrite Ur Leukocyte Esterase Urine RBC Urine WBC Ur Squamous Epith Cells Urine Bacteria Hyaline Casts Salicylates Urine Opiates Screen Ur Buprenorphine Scrn Ur Oxycodone Screen Urine Methadone Screen Urine Fentanyl Screen Acetaminophen Ur Barbiturates Screen Ur Phencyclidine Scrn Ur Amphetamines Screen U Benzodiazepines Scrn Urine Cocaine Screen U Marijuana (THC) Screen Influenza Type A (PCR) Influenza Type B (PCR) RSV RNA Qual (PCR) SARS-CoV-2 RNA (RT-PCR) Mental Status Exam Mental Status Exam Narrative: Appearance: MO male poor hygiene, in NAD Behavior: cooperative Psychomotor: no agitation or retardation noted Speech: clear, normal rate/rhythm/volume, spontaneous TP: linear TC: hearing voices telling him to hurt himself. Mood: anxious Affect: congruent SI: thoughts of wanting to kill himself are related to him wanting to stop the voices HI: none VH/AH: CAH telling him to stab himself (which he has done recently) Delusions: no overt delusional content. Insight/judgment: poor x 2 Memory/cog: alert, oriented x 3. He does appeared to have underlying intellectual disability with very poor problem solving skills and concrete thinking. Medications Medications Current Medications Albuterol Sulfate (Albuterol Sulfate 90 Mcg 8 Gm Inhaler) 2 puff INHALE Q4H PRN PRN Reason: for wheezing Last Admin: 06/10/24 08:56 Dose: 2 puff Atenolol (Atenolol 25 Mg Tablet) 25 mg PO DAILY [facility]; Protocol Last Admin: 06/10/24 08:43 Dose: 25 mg Atorvastatin Calcium (Atorvastatin Calcium 40 Mg Tablet) 40 mg PO DAILY [facility] Last Admin: 06/10/24 08:43 Dose: 40 mg Betamethasone Dipropion Augmented (Betamethasone Dip Aug 0.05% Cr 15 Gm Tube) 1 appl TOPICAL BID [facility]; Protocol Last Admin: 06/10/24 08:44 Dose: 1 appl Bupropion HCl (Bupropion Hcl Xl 150 Mg Tab.Er.24h) 150 mg PO DAILY [facility] Last Admin: 06/10/24 08:43 Dose: 150 mg Docusate Sodium (Docusate Sodium 100 Mg Capsule) 100 mg PO BEDTIME [facility] Last Admin: 06/09/24 22:25 Dose: Not Given Escitalopram Oxalate (Escitalopram Oxalate 20 Mg Tablet) 20 mg PO DAILY [facility] Last Admin: 06/10/24 08:43 Dose: 20 mg Ferrous Sulfate (Ferrous Sulfate 324 Mg Tablet.Dr) 324 mg PO DAILY [facility] Last Admin: 06/10/24 08:43 Dose: 324 mg Haloperidol (Haloperidol 1 Mg Tablet) 2 mg PO BEDTIME [facility] Last Admin: 06/09/24 23:31 Dose: 2 mg Haloperidol (Haloperidol 1 Mg Tablet) 1 mg PO DAILY [facility] Last Admin: 06/10/24 08:43 Dose: 1 mg Insulin Glargine (Insulin Glargine,Hum.Rec.Anlog 100 Unit/Ml 10 Ml Vial) 20 unit SUBCUT DAILY [facility] Last Admin: 06/10/24 08:53 Dose: Not Given Meclizine HCl (Meclizine Hcl 25 Mg Tablet) 25 mg PO TID PRN PRN Reason: dizziness Melatonin (Melatonin 3 Mg Tablet) 6 mg PO BEDTIME [facility] Last Admin: 06/10/24 00:44 Dose: 6 mg Metformin HCl (Metformin Hcl 1,000 Mg Tablet) 1,000 mg PO BID [facility] Last Admin: 06/10/24 08:43 Dose: 1,000 mg Multi-Ingred Cream/Lotion/Oil/Oint (Mineral Oil/Petrolatum,White 106 Gm Tube) 1 appl TOPICAL TID [facility]; Protocol Last Admin: 06/10/24 08:53 Dose: 1 appl Omeprazole (Omeprazole 40 Mg Capsule.) 40 mg PO DAILY@0630 [facility] Last Admin: 06/10/24 07:35 Dose: Not Given Tamsulosin HCl (Tamsulosin Hcl 0.4 Mg Capsule) 0.4 mg PO BEDTIME [facility] Last Admin: 06/09/24 23:31 Dose: 0.4 mg Thiamine HCl (Thiamine Hcl 100 Mg Tablet) 100 mg PO BID [facility] Last Admin: 06/10/24 08:43 Dose: 100 mg Trazodone HCl (Trazodone Hcl 50 Mg Tablet) 50 mg PO BEDTIME PRN PRN Reason: sleep Vitamin D (Cholecalciferol (Vitamin D3) 25 Mcg Tablet) 50 mcg PO DAILY [facility] Last Admin: 06/10/24 08:43 Dose: 50 mcg Allergies Allergies Allergy/AdvReac Type Severity Reaction Status Date / Time pollen extracts [POLLEN] Allergy Mild RUNNY NOSE Verified 06/09/24 15:01 cat dander [CATS] Allergy Unknown UNKNOWN Verified 06/03/24 14:41 dog dander [DOGS] Allergy Unknown UNKNOWN Verified 06/03/24 14:41 mold [MOLD] Allergy Unknown UNKNOWN Verified 06/03/24 14:41 Assessment & Plan Assessment & Plan (1) Psychosis: Status: Acute Code(s): F29 - Unspecified psychosis not due to a substance or known physiological condition Plan Mr. Joseph is a 53 year-old male with hx of hallucinations, depression, self injurious behaviors in respond to command auditory hallucinations who self presented reporting increase SI. He continues to report hearing voices, both female and male telling him to hurt himself. He wants to voices to stop. He also reports feeling under alot of stress due to expectation from his brother for him to find a job (per pt report). This filing writer attempted to called brother to obtain collateral information but unable to leave a message or contact him. His psychiatric hx if unclear. He has hx of psychosis which seems to be recent. I would like to know more about his ability to function and does seem that he has relied on family to secure housing and needs. I do suspect underlying intellectual impairments which further complicate his ability to problem solve. He does seem impulsive and in distress at this time and thus will recommend inpatient level of care for safety, stabilization and containment. PLAN 1. ILOC 2. will dc antidepressants as they exacerbate psychosis. 3. increase haldol to 5mg po BID. add low dose cogentin and one time dose of ativan 2mg, but he may benefit from short term as antipsychotic more effective to lower anxious mood. 4. I would recommend that plan of aftercare planning does include day program, he does need more structure. Total time managing care of this patient today ____ minutes.
[2024-06-10] MEDS: HaloperidoL 5 MG TABLET PO ×2 (13:21→21:08)
[2024-06-10] MEDS: LORazepam 1 MG TABLET 2 MG PO (13:21)
[2024-06-10 14:34] VITALS: BP 146/67; PULSE 64; RESP 16; TEMP 36.4; O2SAT 98
[2024-06-10 15:20] VITALS: BMI 35.8
--- NOTE | 2024-06-10 16:40 | PC.NURSE ---
Jasbir is a 53yr old male, admitted from [facility] ED for vague SI.? He arrived to the unit at 1427 via wheelchair, signed a CV, and is currently on 15min checks. Skin check revealed a large scar over left upper abdomen and left shoulder from a past surgical procedure and is noted to have an? approximate? 1 inch open wound. No redness, swelling, or drainage noted. Pt reports he ?picks? at this area when anxious. Provider DANIELLA notified and instructed TW she would enter a wound care consult. There are also numerous circular, healed area across the pt?s abdomen. ?They were ingrown hairs I picked at?. Pt also noted to have severely dried bilateral heels.? Jasbir reports he was previously on M5 for about 3 weeks for depression/SI/AVH and was discharged to respite, ?for about a week, but they all just sat around. They didn?t engage like you guys here?. Jasbir states he received no further help at respite, discharged and when he returned home,? started to experience some chest pain, and called 911. While in the ED,? Jasbir reported feeling suicidal and ?would rolll down a hill and let whatever happens happens? He states he is overwhelmed w/ simple tasks. He reports his brother told him he should find a job and Jasbir reports it was too overwhelming. During his previous admission Jasbir was experiencing AVH but declines experiencing any now. ?My medications are helpful but I'm still really depressed and anxious?. Pt has PMH of Type II diabetes (poc QID), asthma, HTN, chondrosarcoma, CKD, Chronic restrictive lung disease (secondary to resection of left chest wall forchondrosarcoma), GERD, hyperlipidemia, MDD
[2024-06-10 16:59] LABS: Glucose, Whole Blood 101 mg/dL (60-115)
[2024-06-10 17:10] LABS: Alanine Aminotransferase 16 U/L (0-40); Albumin Level 4.1 g/dL (3.5-5.0); Alkaline Phosphatase 89 U/L (39-117); Anion Gap 15 (12-20); Aspartate Amino Transferase 30 U/L (5-37); Bilirubin Total 0.5 mg/dL (0.0-1.0); Blood Urea Nitrogen 29 mg/dL (9-16); Carbon Dioxide 25 mmol/L (22-29); Chloride 106 mmol/L (96-108); Creatinine Clr Calc Pharmacy 62.8; Estimated Glomerular Filt Rate 45; Glucose Random 106 mg/dL (60-115); Potassium 4.6 mmol/L (3.3-5.1); Sodium 141 mmol/L (135-145); Total Protein 7.9 g/dL (6.5-8.0)
--- NOTE | 2024-06-10 18:28 | P.HPPS_ITS ---
HPI Date of Service: 06/10/24 Chief Complaint: Crisis Sources of Information: patient interviewed, chart reviewed and crisis/core team assessment reviewed HPI Subjective Notes: [place]ringle Warning and Conditional Voluntary Narrative: Patient is a 53-year-old male with history of MDD and CATIE, who presented to [facility] via ambulance due to chest pain and vague suicidal ideation. Per crisis report, patient presented to ER on 06/04/2024 with a similar presentation, he was placed at [facility] from 06/05/24-06/09/24; patient was also recently on from 05/19/24-06/04/24. Patient received referrals to [facility] for follow up and to [facility]. Patient reports that after discharging from [facility], he went home and started to experience chest pain. He decided to go for a walk and called 911. He reported depression and vague suicidal ideation upon triage. Patient reported passive suicidal ideation with the thoughts of rolling down a hill and whatever happens. happens . denies HI/VH/AH. Patient struggles with feelings of loneliness and associates these feelings with feeling unsafe. He is medication compliant and reports that they have been overall helpful. Patient's brother has been encouraging patient to find a job which is causing patient to feel overwhelmed. Denies history of SA/SIB. History of auditory hallucinations and homicidal ideation to stab others with a pen which he reported prior to his admission to . Denies any substance use. Utox negative. During admission assessment, patient presents alert and oriented x3. Calm and cooperative. Patient reports feeling anxious and depressed ; patient stated, I'm having suicidal thoughts. Voices are telling me to kill myself. I'm a very nervous roberta. I was taking my meds. But I went back to the same routine. I need something or people to visit me to occupy my time . Patient reports auditory hallucinations of voices telling him to kill himself. He reports visual hallucinations of shadows. denies HI. He reports suicidal ideation with no plan. Past Psychiatric History: IP: hx of 2 prior inpatient psychiatric hospitalizations denies hx of SA/SIB OP: PCP prescribes-Dr. Arvizu Trials: Lexapro, Wellbutrin, seroquel and haldol Medical Evaluation Reviewed: Yes [facility] Medical History Recurrent major depression Allergic rhinitis Insomnia Palpitations Vitamin D deficiency Chronic kidney disease, stage III (moderate) GERD without esophagitis Restrictive lung disease Obesity (BMI 30-39.9) Benign essential hypertension Pure hypercholesterolemia Diabetes mellitus Pulmonary emboli Chondrosarcoma Hyperlipidemia Chronic restrictive lung disease COPD (chronic obstructive pulmonary disease) Asthma Surgical History History of esophagogastroduodenoscopy (EGD) H/O colonoscopy History of inguinal hernia repair Hx of exploratory thoracotomy H/O tooth extraction Family History: denies Social History: Born [place] raised in [place] by both parents. Mother in 2000 and father in 2008 Has a twin brother and two older brothers High school graduate Never , no children Substance History: Denies Trauma History: medical- tumor L lung 2008. Diagnostics Vital Signs (24Hr): Vital Signs - 24 hr 06/10/24 01:11 06/10/24 14:34 Temperature 97.8 F 97.5 F Pulse Rate 52 64 Respiratory Rate 17 16 Blood Pressure 119/64 146/67 H Pulse Oximetry 96 98 Oxygen Delivery Method Room Air Room Air Oxygen Flow Rate 96 BMI result Body Mass Index 35.8 Labs 06/09/24 15:43 06/10/24 16:19 Labs: Laboratory Results - last 48 hr 06/09/24 06/09/24 06/09/24 15:43 18:04 18:19 WBC 8.8 RBC 4.67 Hgb 13.8 L Hct 41.6 L MCV 89.1 MCH 29.6 MCHC 33.2 RDW 15.8 Plt Count 191 MPV 10.5 Immature Gran % (Auto) 0.3 Neut % (Auto) 78.4 H Lymph % (Auto) 14.1 L [place] % (Auto) 4.8 Eos % (Auto) 1.9 Baso % (Auto) 0.5 Lymph # (Auto) 1.2 [place] # (Auto) 0.4 Eos # (Auto) 0.2 Baso # (Auto) 0.0 Abs Immat Gran (auto) 0.03 Absolute Neuts (auto) 6.9 Absolute Nucleated RBC 0.000 Nucleated RBC % (auto) 0.0 Sodium 140 Potassium 4.3 Chloride 108 Carbon Dioxide 23 Anion Gap 13 BUN 28 H Creatinine 1.46 H Estim Creat Clear Calc 70.6 Estimated GFR 51 POC Glucose Random Glucose 87 Calcium 9.5 D Total Bilirubin 0.7 AST 26 ALT 13 Alkaline Phosphatase 82 Troponin I High Sens 4.4 4.5 Total Protein 7.4 Albumin 4.0 Urine Color Yellow Urine Appearance Clear Urine pH 5.5 Ur Specific [place] 1.020 Urine Protein Negative Urine Glucose (UA) Negative Urine Ketones Negative Urine Blood Small (1+) H Urine Nitrite Negative Ur Leukocyte Esterase Trace H Urine RBC 3-5 H Urine WBC 0-5 Ur Squamous Epith Cells 0-2 Urine Bacteria None Seen Hyaline Casts 0-2 Salicylates < 5.0 L Urine Opiates Screen Not Detected Ur Buprenorphine Scrn Not Detected Ur Oxycodone Screen Not Detected Urine Methadone Screen Not Detected Urine Fentanyl Screen Not Detected Acetaminophen < 3 Ur Barbiturates Screen Not Detected Ur Phencyclidine Scrn Not Detected Ur Amphetamines Screen Not Detected U Benzodiazepines Scrn Not Detected Urine Cocaine Screen Not Detected U Marijuana (THC) Screen Not Detected Influenza Type A (PCR) NEGATIVE Influenza Type B (PCR) NEGATIVE RSV RNA Qual (PCR) NEGATIVE SARS-CoV-2 RNA (RT-PCR) NEGATIVE 06/10/24 06/10/24 06/10/24 07:08 12:12 16:19 WBC RBC Hgb Hct MCV MCH MCHC RDW Plt Count MPV Immature Gran % (Auto) Neut % (Auto) Lymph % (Auto) [place] % (Auto) Eos % (Auto) Baso % (Auto) Lymph # (Auto) [place] # (Auto) Eos # (Auto) Baso # (Auto) Abs Immat Gran (auto) Absolute Neuts (auto) Absolute Nucleated RBC Nucleated RBC % (auto) Sodium 141 Potassium 4.6 Chloride 106 Carbon Dioxide 25 Anion Gap 15 BUN 29 H Creatinine 1.61 H Estim Creat Clear Calc 62.8 Estimated GFR 45 POC Glucose 78 83 Random Glucose 106 Calcium 10.0 Total Bilirubin 0.5 AST 30 ALT 16 Alkaline Phosphatase 89 Troponin I High Sens Total Protein 7.9 Albumin 4.1 Urine Color Urine Appearance Urine pH Ur Specific [place] Urine Protein Urine Glucose (UA) Urine Ketones Urine Blood Urine Nitrite Ur Leukocyte Esterase Urine RBC Urine WBC Ur Squamous Epith Cells Urine Bacteria Hyaline Casts Salicylates Urine Opiates Screen Ur Buprenorphine Scrn Ur Oxycodone Screen Urine Methadone Screen Urine Fentanyl Screen Acetaminophen Ur Barbiturates Screen Ur Phencyclidine Scrn Ur Amphetamines Screen U Benzodiazepines Scrn Urine Cocaine Screen U Marijuana (THC) Screen Influenza Type A (PCR) Influenza Type B (PCR) RSV RNA Qual (PCR) SARS-CoV-2 RNA (RT-PCR) 06/10/24 16:56 WBC RBC Hgb Hct MCV MCH MCHC RDW Plt Count MPV Immature Gran % (Auto) Neut % (Auto) Lymph % (Auto) [place] % (Auto) Eos % (Auto) Baso % (Auto) Lymph # (Auto) [place] # (Auto) Eos # (Auto) Baso # (Auto) Abs Immat Gran (auto) Absolute Neuts (auto) Absolute Nucleated RBC Nucleated RBC % (auto) Sodium Potassium Chloride Carbon Dioxide Anion Gap BUN Creatinine Estim Creat Clear Calc Estimated GFR POC Glucose 101 Random Glucose Calcium Total Bilirubin AST ALT Alkaline Phosphatase Troponin I High Sens Total Protein Albumin Urine Color Urine Appearance Urine pH Ur Specific [place] Urine Protein Urine Glucose (UA) Urine Ketones Urine Blood Urine Nitrite Ur Leukocyte Esterase Urine RBC Urine WBC Ur Squamous Epith Cells Urine Bacteria Hyaline Casts Salicylates Urine Opiates Screen Ur Buprenorphine Scrn Ur Oxycodone Screen Urine Methadone Screen Urine Fentanyl Screen Acetaminophen Ur Barbiturates Screen Ur Phencyclidine Scrn Ur Amphetamines Screen U Benzodiazepines Scrn Urine Cocaine Screen U Marijuana (THC) Screen Influenza Type A (PCR) Influenza Type B (PCR) RSV RNA Qual (PCR) SARS-CoV-2 RNA (RT-PCR) Meds/Allergies Meds Home Medications ?Medication ?Instructions ?Recorded ?Confirmed ?Type insulin glargine-yfgn 100 unit/mL 20 unit subcut DAILY 05/17/24 06/09/24 History (3 mL) subcutaneous pen Act Dry Mouth Gum 1 piece of gum PO TID PRN 06/03/24 06/09/24 History Moisturizing Gum Allergies Allergies Allergy/AdvReac Type Severity Reaction Status Date / Time pollen extracts [POLLEN] Allergy Mild RUNNY NOSE Verified 06/09/24 15:01 cat dander [CATS] Allergy Unknown UNKNOWN Verified 06/03/24 14:41 dog dander [DOGS] Allergy Unknown UNKNOWN Verified 06/03/24 14:41 mold [MOLD] Allergy Unknown UNKNOWN Verified 06/03/24 14:41 Mental Status Exam Mental Status Exam Narrative: Pt is alert and oriented; behavior is cooperative, anxious; dressed in casual attire; mood is described as depressed and anxious ; eye contact appropriate; Speech is normal rate, volume and not pressured; thought process is organized; Thought content is on tx; denies HI. Patient reports suicidal ideation with no plan. He reports auditory hallucinations telling him to harm himself and visual hallucinations of shadows. Assessment & Plan Assessment & Plan (1) MDD (major depressive disorder), recurrent episode: Status: Acute Code(s): F33.9 - Major depressive disorder, recurrent, unspecified (2) CATIE (generalized anxiety disorder): Status: Acute Code(s): F41.1 - Generalized anxiety disorder Plan Patient is a 53-year-old male with history of MDD and CATIE, who presented to [facility] via ambulance due to chest pain and vague suicidal ideation. Plan: CV 15 minute safety checks Continue home medications Referral to a day program ? PHP Encourage groups Discharge planning Patient educated on: diagnosis, medication risk/benefits and therapeutic strategies Reason for continued inpatient stay Substantial Risk for: harm to self and med/psych decompensation Statement Statement: I have reviewed the history and physical and performed a pertinent examination on my patient. No changes have occurred unless specified. If the History and Physical was not performed prior to admission, the Hospitalist's service will be consulted for completing the admission physical. Time Spent With Patient Time: Total time managing care of this patient today _60___ minutes.
[2024-06-10] MEDS: hydrOXYzine HCL 25 MG TABLET PO (18:43)
[2024-06-10 20:51] LABS: Glucose, Whole Blood 115 mg/dL (60-115)
[2024-06-10] MEDS: Benztropine Mesylate 0.5 MG TABLET PO (21:07)
[2024-06-10] MEDS: Docusate Sodium 100 MG CAPSULE PO (21:07)
[2024-06-10] MEDS: Tamsulosin HCL 0.4 MG CAPSULE PO (21:08)
[2024-06-10] MEDS: traZODone HCL 50 MG TABLET PO (21:08)
[2024-06-11] MEDS: Omeprazole 40 MG CAPSULE.DR PO (06:31)
[2024-06-11 07:40] VITALS: BP 128/64; PULSE 67; RESP 16; TEMP 36.8; O2SAT 93
[2024-06-11 07:42] LABS: Cholesterol 126 mg/dL (<200); HDL Cholesterol 30 mg/dL (>40); LDL Cholesterol Calculated 62 mg/dL (<100); Triglycerides 170 mg/dL (<150)
[2024-06-11 07:54] LABS: Glucose, Whole Blood 92 mg/dL (60-115)
--- NOTE | 2024-06-11 08:46 | P.PNPSI_ITS ---
Subjective Subjective Date of Service: 06/11/24 Reason For Visit: Crisis Subjective Notes: Conditional Voluntary Interim History: Active on unit. Pt continues to report feeling anxious and depressed ; pt stated, nothing has changed. I still feel suicidal because I've had enough of stress . Pt reports suicidal ideation with no plan. He reports auditory hallucinations that have quieted down ; denies HI/VH. Per nursing, slept 8 hours last night. discussed starting on abilify; risks/benefits reviewed. Medication Compliance: Yes Side effects from medications: No Attending Groups: Yes Mental Status Exam Mental Status Exam Narrative: Pt is alert and oriented; behavior is cooperative, anxious; dressed in casual attire; mood is described as depressed and anxious ; eye contact appropriate; Speech is normal rate, volume and not pressured; thought process is organized; Thought content is on tx; denies HI/VH. Patient reports suicidal ideation with no plan. He reports auditory hallucinations telling him to harm himself. Diagnostics Vital Signs (24Hr): Vital Signs - 24 hr 06/10/24 14:34 06/11/24 07:40 Temperature 97.5 F 98.2 F Pulse Rate 64 67 Respiratory Rate 16 16 Blood Pressure 146/67 H 128/64 Pulse Oximetry 98 93 Oxygen Delivery Method Room Air Room Air BMI result Body Mass Index 35.8 Labs 06/09/24 15:43 06/10/24 16:19 Labs: Laboratory Results - last 48 hr 06/09/24 06/09/24 06/09/24 15:43 18:04 18:19 WBC 8.8 RBC 4.67 Hgb 13.8 L Hct 41.6 L MCV 89.1 MCH 29.6 MCHC 33.2 RDW 15.8 Plt Count 191 MPV 10.5 Immature Gran % (Auto) 0.3 Neut % (Auto) 78.4 H Lymph % (Auto) 14.1 L [place] % (Auto) 4.8 Eos % (Auto) 1.9 Baso % (Auto) 0.5 Lymph # (Auto) 1.2 [place] # (Auto) 0.4 Eos # (Auto) 0.2 Baso # (Auto) 0.0 Abs Immat Gran (auto) 0.03 Absolute Neuts (auto) 6.9 Absolute Nucleated RBC 0.000 Nucleated RBC % (auto) 0.0 Sodium 140 Potassium 4.3 Chloride 108 Carbon Dioxide 23 Anion Gap 13 BUN 28 H Creatinine 1.46 H Estim Creat Clear Calc 70.6 Estimated GFR 51 POC Glucose Random Glucose 87 Calcium 9.5 D Total Bilirubin 0.7 AST 26 ALT 13 Alkaline Phosphatase 82 Troponin I High Sens 4.4 4.5 Total Protein 7.4 Albumin 4.0 Triglycerides Cholesterol LDL Cholesterol, Calc HDL Cholesterol Urine Color Yellow Urine Appearance Clear Urine pH 5.5 Ur Specific [place] 1.020 Urine Protein Negative Urine Glucose (UA) Negative Urine Ketones Negative Urine Blood Small (1+) H Urine Nitrite Negative Ur Leukocyte Esterase Trace H Urine RBC 3-5 H Urine WBC 0-5 Ur Squamous Epith Cells 0-2 Urine Bacteria None Seen Hyaline Casts 0-2 Salicylates < 5.0 L Urine Opiates Screen Not Detected Ur Buprenorphine Scrn Not Detected Ur Oxycodone Screen Not Detected Urine Methadone Screen Not Detected Urine Fentanyl Screen Not Detected Acetaminophen < 3 Ur Barbiturates Screen Not Detected Ur Phencyclidine Scrn Not Detected Ur Amphetamines Screen Not Detected U Benzodiazepines Scrn Not Detected Urine Cocaine Screen Not Detected U Marijuana (THC) Screen Not Detected Influenza Type A (PCR) NEGATIVE Influenza Type B (PCR) NEGATIVE RSV RNA Qual (PCR) NEGATIVE SARS-CoV-2 RNA (RT-PCR) NEGATIVE 06/10/24 06/10/24 06/10/24 07:08 12:12 16:19 WBC RBC Hgb Hct MCV MCH MCHC RDW Plt Count MPV Immature Gran % (Auto) Neut % (Auto) Lymph % (Auto) [place] % (Auto) Eos % (Auto) Baso % (Auto) Lymph # (Auto) [place] # (Auto) Eos # (Auto) Baso # (Auto) Abs Immat Gran (auto) Absolute Neuts (auto) Absolute Nucleated RBC Nucleated RBC % (auto) Sodium 141 Potassium 4.6 Chloride 106 Carbon Dioxide 25 Anion Gap 15 BUN 29 H Creatinine 1.61 H Estim Creat Clear Calc 62.8 Estimated GFR 45 POC Glucose 78 83 Random Glucose 106 Calcium 10.0 Total Bilirubin 0.5 AST 30 ALT 16 Alkaline Phosphatase 89 Troponin I High Sens Total Protein 7.9 Albumin 4.1 Triglycerides Cholesterol LDL Cholesterol, Calc HDL Cholesterol Urine Color Urine Appearance Urine pH Ur Specific [place] Urine Protein Urine Glucose (UA) Urine Ketones Urine Blood Urine Nitrite Ur Leukocyte Esterase Urine RBC Urine WBC Ur Squamous Epith Cells Urine Bacteria Hyaline Casts Salicylates Urine Opiates Screen Ur Buprenorphine Scrn Ur Oxycodone Screen Urine Methadone Screen Urine Fentanyl Screen Acetaminophen Ur Barbiturates Screen Ur Phencyclidine Scrn Ur Amphetamines Screen U Benzodiazepines Scrn Urine Cocaine Screen U Marijuana (THC) Screen Influenza Type A (PCR) Influenza Type B (PCR) RSV RNA Qual (PCR) SARS-CoV-2 RNA (RT-PCR) 06/10/24 06/10/24 06/11/24 16:56 20:45 07:03 WBC RBC Hgb Hct MCV MCH MCHC RDW Plt Count MPV Immature Gran % (Auto) Neut % (Auto) Lymph % (Auto) [place] % (Auto) Eos % (Auto) Baso % (Auto) Lymph # (Auto) [place] # (Auto) Eos # (Auto) Baso # (Auto) Abs Immat Gran (auto) Absolute Neuts (auto) Absolute Nucleated RBC Nucleated RBC % (auto) Sodium Potassium Chloride Carbon Dioxide Anion Gap BUN Creatinine Estim Creat Clear Calc Estimated GFR POC Glucose 101 115 Random Glucose Calcium Total Bilirubin AST ALT Alkaline Phosphatase Troponin I High Sens Total Protein Albumin Triglycerides 170 H Cholesterol 126 LDL Cholesterol, Calc 62 HDL Cholesterol 30 L Urine Color Urine Appearance Urine pH Ur Specific [place] Urine Protein Urine Glucose (UA) Urine Ketones Urine Blood Urine Nitrite Ur Leukocyte Esterase Urine RBC Urine WBC Ur Squamous Epith Cells Urine Bacteria Hyaline Casts Salicylates Urine Opiates Screen Ur Buprenorphine Scrn Ur Oxycodone Screen Urine Methadone Screen Urine Fentanyl Screen Acetaminophen Ur Barbiturates Screen Ur Phencyclidine Scrn Ur Amphetamines Screen U Benzodiazepines Scrn Urine Cocaine Screen U Marijuana (THC) Screen Influenza Type A (PCR) Influenza Type B (PCR) RSV RNA Qual (PCR) SARS-CoV-2 RNA (RT-PCR) 06/11/24 07:49 WBC RBC Hgb Hct MCV MCH MCHC RDW Plt Count MPV Immature Gran % (Auto) Neut % (Auto) Lymph % (Auto) [place] % (Auto) Eos % (Auto) Baso % (Auto) Lymph # (Auto) [place] # (Auto) Eos # (Auto) Baso # (Auto) Abs Immat Gran (auto) Absolute Neuts (auto) Absolute Nucleated RBC Nucleated RBC % (auto) Sodium Potassium Chloride Carbon Dioxide Anion Gap BUN Creatinine Estim Creat Clear Calc Estimated GFR POC Glucose 92 Random Glucose Calcium Total Bilirubin AST ALT Alkaline Phosphatase Troponin I High Sens Total Protein Albumin Triglycerides Cholesterol LDL Cholesterol, Calc HDL Cholesterol Urine Color Urine Appearance Urine pH Ur Specific [place] Urine Protein Urine Glucose (UA) Urine Ketones Urine Blood Urine Nitrite Ur Leukocyte Esterase Urine RBC Urine WBC Ur Squamous Epith Cells Urine Bacteria Hyaline Casts Salicylates Urine Opiates Screen Ur Buprenorphine Scrn Ur Oxycodone Screen Urine Methadone Screen Urine Fentanyl Screen Acetaminophen Ur Barbiturates Screen Ur Phencyclidine Scrn Ur Amphetamines Screen U Benzodiazepines Scrn Urine Cocaine Screen U Marijuana (THC) Screen Influenza Type A (PCR) Influenza Type B (PCR) RSV RNA Qual (PCR) SARS-CoV-2 RNA (RT-PCR) Medications Medications Current Medications Acetaminophen (Acetaminophen 325 Mg Tablet) 650 mg PO Q6H PRN PRN Reason: Headache/Pain Mild Scale (1-3) Al Hydroxide/Mg Hydroxide (Magnesium Hydrox/Alum Hydrox 30 Ml Oral.Susp) 30 ml PO Q6H PRN PRN Reason: Heartburn/Nausea Albuterol Sulfate (Albuterol Sulfate 90 Mcg 8 Gm Inhaler) 2 puff INHALE Q4H PRN PRN Reason: for wheezing Last Admin: 06/10/24 21:22 Dose: 2 puff Atenolol (Atenolol 25 Mg Tablet) 25 mg PO DAILY [facility]; Protocol Last Admin: 06/10/24 08:43 Dose: 25 mg Atorvastatin Calcium (Atorvastatin Calcium 40 Mg Tablet) 40 mg PO DAILY [facility] Last Admin: 06/10/24 08:43 Dose: 40 mg Benztropine Mesylate (Benztropine Mesylate 0.5 Mg Tablet) 0.5 mg PO BID [facility] Last Admin: 06/10/24 21:07 Dose: 0.5 mg Betamethasone Dipropion Augmented (Betamethasone Dip Aug 0.05% Cr 15 Gm Tube) 1 appl TOPICAL BID [facility]; Protocol Last Admin: 06/10/24 21:07 Dose: 1 appl Docusate Sodium (Docusate Sodium 100 Mg Capsule) 100 mg PO BEDTIME [facility] Last Admin: 06/10/24 21:07 Dose: 100 mg Ferrous Sulfate (Ferrous Sulfate 324 Mg Tablet.Dr) 324 mg PO DAILY [facility] Last Admin: 06/10/24 08:43 Dose: 324 mg Haloperidol (Haloperidol 5 Mg Tablet) 5 mg PO BID [facility] Last Admin: 06/10/24 21:08 Dose: 5 mg Hydroxyzine HCl (Hydroxyzine Hcl 25 Mg Tablet) 25 mg PO Q6H PRN PRN Reason: Anxiety Last Admin: 06/10/24 18:43 Dose: 25 mg Insulin Glargine (Insulin Glargine,Hum.Rec.Anlog 100 Unit/Ml 10 Ml Vial) 20 unit SUBCUT DAILY [facility] Last Admin: 06/10/24 08:53 Dose: Not Given Magnesium Hydroxide (Milk Of Magnesia 30 Ml Oral.Susp) 30 ml PO DAILY PRN PRN Reason: Constipation Meclizine HCl (Meclizine Hcl 25 Mg Tablet) 25 mg PO TID PRN PRN Reason: dizziness Melatonin (Melatonin 3 Mg Tablet) 6 mg PO BEDTIME [facility] Last Admin: 06/10/24 21:08 Dose: 6 mg Metformin HCl (Metformin Hcl 1,000 Mg Tablet) 1,000 mg PO BID [facility] Last Admin: 06/10/24 21:08 Dose: 1,000 mg Multi-Ingred Cream/Lotion/Oil/Oint (Mineral Oil/Petrolatum,White 106 Gm Tube) 1 appl TOPICAL TID [facility]; Protocol Last Admin: 06/10/24 21:23 Dose: Not Given Nicotine (Nicotine 21 Mg Patch.Td24) 21 mg TRANSDERMA DAILY [facility] Nicotine Polacrilex (Nicotine Polacrilex 2 Mg Gum) 4 mg BUCCAL Q2H PRN PRN Reason: Nicotine Cravings Omeprazole (Omeprazole 40 Mg Capsule.) 40 mg PO DAILY@0630 [facility] Last Admin: 06/11/24 06:31 Dose: 40 mg Tamsulosin HCl (Tamsulosin Hcl 0.4 Mg Capsule) 0.4 mg PO BEDTIME [facility] Last Admin: 06/10/24 21:08 Dose: 0.4 mg Thiamine HCl (Thiamine Hcl 100 Mg Tablet) 100 mg PO BID [facility] Last Admin: 06/10/24 21:08 Dose: 100 mg Trazodone HCl (Trazodone Hcl 50 Mg Tablet) 50 mg PO BEDTIME PRN PRN Reason: sleep Last Admin: 06/10/24 21:08 Dose: 50 mg Vitamin D (Cholecalciferol (Vitamin D3) 25 Mcg Tablet) 50 mcg PO DAILY [facility] Last Admin: 06/10/24 08:43 Dose: 50 mcg Allergies Allergies Allergy/AdvReac Type Severity Reaction Status Date / Time pollen extracts [POLLEN] Allergy Mild RUNNY NOSE Verified 06/09/24 15:01 cat dander [CATS] Allergy Unknown UNKNOWN Verified 06/03/24 14:41 dog dander [DOGS] Allergy Unknown UNKNOWN Verified 06/03/24 14:41 mold [MOLD] Allergy Unknown UNKNOWN Verified 06/03/24 14:41 Assessment & Plan Assessment & Plan (1) MDD (major depressive disorder), recurrent episode: Status: Acute Code(s): F33.9 - Major depressive disorder, recurrent, unspecified (2) CATIE (generalized anxiety disorder): Status: Acute Code(s): F41.1 - Generalized anxiety disorder Plan Patient is a 53-year-old male with history of MDD and CATIE, who presented to [facility] via ambulance due to chest pain and vague suicidal ideation. Plan: CV 15 minute safety checks Continue home medications Referral to a day program ? PHP Encourage groups Discharge planning 06/11: Active on unit. Pt continues to report feeling anxious and depressed ; pt stated, nothing has changed. I still feel suicidal because I've had enough of stress . Pt reports suicidal ideation with no plan. He reports auditory hallucinations that have quieted down ; denies HI/VH. Per nursing, slept 8 hours last night. discussed starting on abilify; risks/benefits reviewed. Start: Abilify 5mg PO daily decrease haldol to 5mg PO bedtime Patient educated on: diagnosis, medication risk/benefits and therapeutic strategies Reason for continued inpatient stay Substantial Risk for: harm to self and med/psych decompensation Time Spent With Patient Time: Total time managing care of this patient today _20___ minutes.
[2024-06-11] MEDS: Benztropine Mesylate 0.5 MG TABLET PO ×2 (10:05→19:58)
[2024-06-11] MEDS: Atorvastatin Calcium 40 MG TABLET PO (10:05)
[2024-06-11 10:06] VITALS: BP 128/64; PULSE 67
[2024-06-11] MEDS: Ferrous Sulfate 324 MG TABLET.DR PO (10:06)
[2024-06-11] MEDS: Cholecalciferol (Vitamin D3) 25 MCG TABLET 50 MCG PO (10:06)
[2024-06-11] MEDS: atenoloL 25 MG TABLET PO (10:06)
[2024-06-11] MEDS: HaloperidoL 5 MG TABLET PO ×2 (10:06→19:59)
[2024-06-11] MEDS: metFORMIN HCl 1,000 MG TABLET 1000 MG PO ×2 (10:06→19:58)
[2024-06-11] MEDS: Thiamine HCL 100 MG TABLET PO ×2 (10:07→19:59)
[2024-06-11] MEDS: Insulin Glargine,Hum.rec.anlog 100 UNIT/ML 10 ML VIAL 20 UNIT SUBCUT (10:14)
[2024-06-11 12:06] LABS: Glucose, Whole Blood 114 mg/dL (60-115)
[2024-06-11] MEDS: Albuterol Sulfate 90 MCG 8 GM INHALER 2 PUFF INHALE ×2 (12:32→19:59)
[2024-06-11] MEDS: Mineral Oil/Petrolatum,White 106 GM Tube 1 APPL TOPICAL (12:34)
[2024-06-11] MEDS: Betamethasone Dip Aug 0.05% Cr 15 GM TUBE 1 APPL TOPICAL ×2 (12:34→19:57)
[2024-06-11] MEDS: ARIPiprazole 5 MG TABLET PO (15:24)
[2024-06-11 16:57] LABS: Glucose, Whole Blood 98 mg/dL (60-115)
[2024-06-11 18:39] VITALS: BP 120/57; PULSE 56; RESP 16; TEMP 36.8; O2SAT 97
[2024-06-11] MEDS: traZODone HCL 50 MG TABLET PO (19:58)
[2024-06-11] MEDS: Tamsulosin HCL 0.4 MG CAPSULE PO (19:58)
[2024-06-11] MEDS: hydrOXYzine HCL 25 MG TABLET PO (19:58)
[2024-06-11] MEDS: Melatonin 3 MG TABLET 6 MG PO (19:58)
[2024-06-11] MEDS: Docusate Sodium 100 MG CAPSULE PO (19:59)
[2024-06-11 21:03] LABS: Glucose, Whole Blood 111 mg/dL (60-115)
[2024-06-12] MEDS: Omeprazole 40 MG CAPSULE.DR PO (06:38)
[2024-06-12 07:41] VITALS: BP 115/59; PULSE 58; RESP 16; TEMP 36.6; O2SAT 92
[2024-06-12 07:41] LABS: Glucose, Whole Blood 80 mg/dL (60-115)
[2024-06-12] MEDS: ARIPiprazole 5 MG TABLET PO (08:20)
[2024-06-12] MEDS: Atorvastatin Calcium 40 MG TABLET PO (08:20)
[2024-06-12] MEDS: Ferrous Sulfate 324 MG TABLET.DR PO (08:20)
[2024-06-12] MEDS: Cholecalciferol (Vitamin D3) 25 MCG TABLET 50 MCG PO (08:20)
[2024-06-12] MEDS: Benztropine Mesylate 0.5 MG TABLET PO ×2 (08:20→20:36)
[2024-06-12] MEDS: atenoloL 25 MG TABLET PO (08:20)
[2024-06-12] MEDS: Thiamine HCL 100 MG TABLET PO ×2 (08:20→20:36)
[2024-06-12] MEDS: metFORMIN HCl 1,000 MG TABLET 1000 MG PO ×2 (08:20→20:36)
[2024-06-12] MEDS: Insulin Glargine,Hum.rec.anlog 100 UNIT/ML 10 ML VIAL 20 UNIT SUBCUT (08:21)
[2024-06-12] MEDS: Mineral Oil/Petrolatum,White 106 GM Tube 1 APPL TOPICAL (08:37)
--- NOTE | 2024-06-12 09:01 | HO.PSYCHPN ---
Subjective Subjective Date of Service: 06/12/24 Reason For Visit: Crisis Subjective Notes: Conditional Voluntary Interim History: Active on unit. Pt continues to report feeling depressed ; Pt reports suicidal ideation with no plan. States he wants to go to [facility] because he feels safer there; pt unable to elaborate more on this. denies HI/VH. reports auditory hallucinations telling him to harm himself. Medication Compliance: Yes Side effects from medications: No Attending Groups: Yes Mental Status Exam Mental Status Exam Narrative: Pt is alert and oriented; behavior is cooperative, calm; dressed in casual attire; mood is described as depressed and anxious ; eye contact appropriate; Speech is normal rate, volume and not pressured; thought process is organized; Thought content is on tx; denies HI/VH. Patient reports suicidal ideation with no plan. He reports auditory hallucinations telling him to harm himself. Diagnostics Vital Signs (24Hr): Vital Signs - 24 hr 06/11/24 10:06 06/11/24 18:39 06/12/24 07:41 Temperature 98.2 F 97.9 F Pulse Rate 67 56 58 Respiratory Rate 16 16 Blood Pressure 128/64 120/57 L 115/59 L Pulse Oximetry 97 92 Oxygen Delivery Method Room Air Room Air BMI result Body Mass Index 35.8 Labs 06/09/24 15:43 06/10/24 16:19 Labs: Laboratory Results - last 48 hr 06/10/24 06/10/24 06/10/24 12:12 16:19 16:56 Sodium 141 Potassium 4.6 Chloride 106 Carbon Dioxide 25 Anion Gap 15 BUN 29 H Creatinine 1.61 H Estim Creat Clear Calc 62.8 Estimated GFR 45 POC Glucose 83 101 Random Glucose 106 Calcium 10.0 Total Bilirubin 0.5 AST 30 ALT 16 Alkaline Phosphatase 89 Total Protein 7.9 Albumin 4.1 Triglycerides Cholesterol LDL Cholesterol, Calc HDL Cholesterol 06/10/24 06/11/24 06/11/24 20:45 07:03 07:49 Sodium Potassium Chloride Carbon Dioxide Anion Gap BUN Creatinine Estim Creat Clear Calc Estimated GFR POC Glucose 115 92 Random Glucose Calcium Total Bilirubin AST ALT Alkaline Phosphatase Total Protein Albumin Triglycerides 170 H Cholesterol 126 LDL Cholesterol, Calc 62 HDL Cholesterol 30 L 06/11/24 06/11/24 06/11/24 12:02 16:53 21:00 Sodium Potassium Chloride Carbon Dioxide Anion Gap BUN Creatinine Estim Creat Clear Calc Estimated GFR POC Glucose 114 98 111 Random Glucose Calcium Total Bilirubin AST ALT Alkaline Phosphatase Total Protein Albumin Triglycerides Cholesterol LDL Cholesterol, Calc HDL Cholesterol 06/12/24 07:34 Sodium Potassium Chloride Carbon Dioxide Anion Gap BUN Creatinine Estim Creat Clear Calc Estimated GFR POC Glucose 80 Random Glucose Calcium Total Bilirubin AST ALT Alkaline Phosphatase Total Protein Albumin Triglycerides Cholesterol LDL Cholesterol, Calc HDL Cholesterol Medications Medications Current Medications Acetaminophen (Acetaminophen 325 Mg Tablet) 650 mg PO Q6H PRN PRN Reason: Headache/Pain Mild Scale (1-3) Al Hydroxide/Mg Hydroxide (Magnesium Hydrox/Alum Hydrox 30 Ml Oral.Susp) 30 ml PO Q6H PRN PRN Reason: Heartburn/Nausea Albuterol Sulfate (Albuterol Sulfate 90 Mcg 8 Gm Inhaler) 2 puff INHALE Q4H PRN PRN Reason: for wheezing Last Admin: 06/11/24 19:59 Dose: 2 puff Aripiprazole (Aripiprazole 5 Mg Tablet) 5 mg PO DAILY [facility] Last Admin: 06/12/24 08:20 Dose: 5 mg Atenolol (Atenolol 25 Mg Tablet) 25 mg PO DAILY [facility]; Protocol Last Admin: 06/12/24 08:20 Dose: 25 mg Atorvastatin Calcium (Atorvastatin Calcium 40 Mg Tablet) 40 mg PO DAILY [facility] Last Admin: 06/12/24 08:20 Dose: 40 mg Benztropine Mesylate (Benztropine Mesylate 0.5 Mg Tablet) 0.5 mg PO BID [facility] Last Admin: 06/12/24 08:20 Dose: 0.5 mg Betamethasone Dipropion Augmented (Betamethasone Dip Aug 0.05% Cr 15 Gm Tube) 1 appl TOPICAL BID [facility]; Protocol Last Admin: 06/12/24 08:36 Dose: Not Given Docusate Sodium (Docusate Sodium 100 Mg Capsule) 100 mg PO BEDTIME [facility] Last Admin: 06/11/24 19:59 Dose: 100 mg Ferrous Sulfate (Ferrous Sulfate 324 Mg Tablet.Dr) 324 mg PO DAILY [facility] Last Admin: 06/12/24 08:20 Dose: 324 mg Haloperidol (Haloperidol 5 Mg Tablet) 5 mg PO BEDTIME [facility] Last Admin: 06/11/24 19:59 Dose: 5 mg Hydroxyzine HCl (Hydroxyzine Hcl 25 Mg Tablet) 25 mg PO Q6H PRN PRN Reason: Anxiety Last Admin: 06/11/24 19:58 Dose: 25 mg Insulin Glargine (Insulin Glargine,Hum.Rec.Anlog 100 Unit/Ml 10 Ml Vial) 20 unit SUBCUT DAILY [facility] Last Admin: 06/12/24 08:21 Dose: 20 unit Magnesium Hydroxide (Milk Of Magnesia 30 Ml Oral.Susp) 30 ml PO DAILY PRN PRN Reason: Constipation Meclizine HCl (Meclizine Hcl 25 Mg Tablet) 25 mg PO TID PRN PRN Reason: dizziness Melatonin (Melatonin 3 Mg Tablet) 6 mg PO BEDTIME [facility] Last Admin: 06/11/24 19:58 Dose: 6 mg Metformin HCl (Metformin Hcl 1,000 Mg Tablet) 1,000 mg PO BID [facility] Last Admin: 06/12/24 08:20 Dose: 1,000 mg Multi-Ingred Cream/Lotion/Oil/Oint (Mineral Oil/Petrolatum,White 106 Gm Tube) 1 appl TOPICAL TID [facility]; Protocol Last Admin: 06/12/24 08:37 Dose: 1 appl Nicotine (Nicotine 21 Mg Patch.Td24) 21 mg TRANSDERMA DAILY [facility] Last Admin: 06/12/24 07:57 Dose: Not Given Nicotine Polacrilex (Nicotine Polacrilex 2 Mg Gum) 4 mg BUCCAL Q2H PRN PRN Reason: Nicotine Cravings Omeprazole (Omeprazole 40 Mg Capsule.Dr) 40 mg PO DAILY@0630 [facility] Last Admin: 06/12/24 06:38 Dose: 40 mg Tamsulosin HCl (Tamsulosin Hcl 0.4 Mg Capsule) 0.4 mg PO BEDTIME [facility] Last Admin: 06/11/24 19:58 Dose: 0.4 mg Thiamine HCl (Thiamine Hcl 100 Mg Tablet) 100 mg PO BID [facility] Last Admin: 06/12/24 08:20 Dose: 100 mg Trazodone HCl (Trazodone Hcl 50 Mg Tablet) 50 mg PO BEDTIME PRN PRN Reason: sleep Last Admin: 06/11/24 19:58 Dose: 50 mg Vitamin D (Cholecalciferol (Vitamin D3) 25 Mcg Tablet) 50 mcg PO DAILY [facility] Last Admin: 06/12/24 08:20 Dose: 50 mcg Allergies Allergies Allergy/AdvReac Type Severity Reaction Status Date / Time pollen extracts [POLLEN] Allergy Mild RUNNY NOSE Verified 06/09/24 15:01 cat dander [CATS] Allergy Unknown UNKNOWN Verified 06/03/24 14:41 dog dander [DOGS] Allergy Unknown UNKNOWN Verified 06/03/24 14:41 mold [MOLD] Allergy Unknown UNKNOWN Verified 06/03/24 14:41 Assessment & Plan Assessment & Plan (1) MDD (major depressive disorder), recurrent episode: Status: Acute Code(s): F33.9 - Major depressive disorder, recurrent, unspecified (2) CATIE (generalized anxiety disorder): Status: Acute Code(s): F41.1 - Generalized anxiety disorder Plan Patient is a 53-year-old male with history of MDD and CATIE, who presented to [facility] via ambulance due to chest pain and vague suicidal ideation. Plan: CV 15 minute safety checks Continue home medications Referral to a day program ? PHP Encourage groups Discharge planning 06/11: Active on unit. Pt continues to report feeling anxious and depressed ; pt stated, nothing has changed. I still feel suicidal because I've had enough of stress . Pt reports suicidal ideation with no plan. He reports auditory hallucinations that have quieted down ; denies HI/VH. Per nursing, slept 8 hours last night. discussed starting on abilify; risks/benefits reviewed. Start: Abilify 5mg PO daily decrease haldol to 5mg PO bedtime 06/12: Active on unit. Pt continues to report feeling depressed ; Pt reports suicidal ideation with no plan. States he wants to go to because he feels safer there; pt unable to elaborate more on this. denies HI/VH. reports auditory hallucinations telling him to harm himself. continue current tx plan Patient educated on: diagnosis, medication risk/benefits and therapeutic strategies Reason for continued inpatient stay Substantial Risk for: harm to self and med/psych decompensation Time Spent With Patient Time: Total time managing care of this patient today __20__ minutes.
[2024-06-12 12:08] LABS: Glucose, Whole Blood 82 mg/dL (60-115)
[2024-06-12] MEDS: Albuterol Sulfate 90 MCG 8 GM INHALER 2 PUFF INHALE ×2 (12:34→20:48)
[2024-06-12 17:00] LABS: Glucose, Whole Blood 132 mg/dL (60-115)
[2024-06-12 20:00] VITALS: BP 123/60; PULSE 55; RESP 16; TEMP 36.6; O2SAT 96
[2024-06-12 20:10] LABS: Glucose, Whole Blood 125 mg/dL (60-115)
[2024-06-12] MEDS: Melatonin 3 MG TABLET 6 MG PO (20:36)
[2024-06-12] MEDS: HaloperidoL 5 MG TABLET PO (20:36)
[2024-06-12] MEDS: Docusate Sodium 100 MG CAPSULE PO (20:37)
[2024-06-12] MEDS: Tamsulosin HCL 0.4 MG CAPSULE PO (20:40)
[2024-06-13] MEDS: Magnesium Hydrox/Alum Hydrox 30 ML ORAL.SUSP PO (03:24)
[2024-06-13] MEDS: Albuterol Sulfate 90 MCG 8 GM INHALER 2 PUFF INHALE ×4 (03:25→21:07)
[2024-06-13] MEDS: Omeprazole 40 MG CAPSULE.DR PO (05:58)
[2024-06-13 07:35] VITALS: BP 121/58; PULSE 57; RESP 14; TEMP 36.7; O2SAT 92
[2024-06-13 08:11] LABS: Glucose, Whole Blood 101 mg/dL (60-115)
[2024-06-13] MEDS: metFORMIN HCl 1,000 MG TABLET 1000 MG PO ×2 (08:42→21:08)
[2024-06-13] MEDS: Cholecalciferol (Vitamin D3) 25 MCG TABLET 50 MCG PO (08:42)
[2024-06-13] MEDS: Thiamine HCL 100 MG TABLET PO ×2 (08:42→21:08)
[2024-06-13] MEDS: Atorvastatin Calcium 40 MG TABLET PO (08:42)
[2024-06-13] MEDS: ARIPiprazole 5 MG TABLET PO (08:42)
[2024-06-13] MEDS: Benztropine Mesylate 0.5 MG TABLET PO ×2 (08:42→21:08)
[2024-06-13] MEDS: Ferrous Sulfate 324 MG TABLET.DR PO (08:43)
[2024-06-13] MEDS: Insulin Glargine,Hum.rec.anlog 100 UNIT/ML 10 ML VIAL 20 UNIT SUBCUT (08:44)
[2024-06-13 08:49] VITALS: BP 133/68; PULSE 68
[2024-06-13] MEDS: atenoloL 25 MG TABLET PO (08:49)
[2024-06-13 12:02] LABS: Glucose, Whole Blood 87 mg/dL (60-115)
[2024-06-13] MEDS: hydrOXYzine HCL 25 MG TABLET PO ×2 (14:02→17:35)
[2024-06-13] MEDS: Mineral Oil/Petrolatum,White 106 GM Tube 1 APPL TOPICAL (14:05)
--- NOTE | 2024-06-13 16:12 | P.PNPSI_ITS ---
Subjective Subjective Date of Service: 06/13/24 Reason For Visit: Crisis Interim History: pleasant, cooperative, polite. reports the weekend was fair, [place] in, [place], not too bad. he endorses CAH to punch himself and to fall down. he also reports SI to cut his throat with a knife or to overdose. he is asking for help with the AH and also for overwhelming anxiety which he experiences when he is at home. he is agreeable to try scheduled hydroxyzine. per staff, appears depressed. c/o AH. endorses SI. no plans. slept 8 hours. Mental Status Exam Mental Status Exam Narrative: Pt is alert and oriented; behavior is cooperative, calm; dressed in casual attire; eye contact appropriate; Speech is normal rate, volume and not pressured; thought process is organized; Thought content is on tx; no HI/VH. Patient reports suicidal ideation with plan to stab himself in the neck or overdose on medications. He reports auditory hallucinations telling him to harm himself. Diagnostics Vital Signs (24Hr): Vital Signs - 24 hr 06/12/24 20:00 06/13/24 07:35 06/13/24 08:49 Temperature 98 F 98.1 F Pulse Rate 55 57 68 Respiratory Rate 16 14 Blood Pressure 123/60 121/58 L 133/68 Pulse Oximetry 96 92 Oxygen Delivery Method Room Air Room Air BMI result Body Mass Index 35.8 Labs 06/09/24 15:43 06/10/24 16:19 Labs: Laboratory Results - last 48 hr 06/11/24 06/11/24 06/12/24 16:53 21:00 07:34 POC Glucose 98 111 80 06/12/24 06/12/24 06/12/24 12:04 16:57 20:06 POC Glucose 82 132 H 125 H 06/13/24 06/13/24 08:07 11:58 POC Glucose 101 87 Medications Medications Current Medications Acetaminophen (Acetaminophen 325 Mg Tablet) 650 mg PO Q6H PRN PRN Reason: Headache/Pain Mild Scale (1-3) Al Hydroxide/Mg Hydroxide (Magnesium Hydrox/Alum Hydrox 30 Ml Oral.Susp) 30 ml PO Q6H PRN PRN Reason: Heartburn/Nausea Last Admin: 06/13/24 03:24 Dose: 30 ml Albuterol Sulfate (Albuterol Sulfate 90 Mcg 8 Gm Inhaler) 2 puff INHALE Q4H PRN PRN Reason: for wheezing Last Admin: 06/13/24 16:01 Dose: 2 puff Aripiprazole (Aripiprazole 5 Mg Tablet) 5 mg PO DAILY [facility] Last Admin: 06/13/24 08:42 Dose: 5 mg Atenolol (Atenolol 25 Mg Tablet) 25 mg PO DAILY [facility]; Protocol Last Admin: 06/13/24 08:49 Dose: 25 mg Atorvastatin Calcium (Atorvastatin Calcium 40 Mg Tablet) 40 mg PO DAILY [facility] Last Admin: 06/13/24 08:42 Dose: 40 mg Benztropine Mesylate (Benztropine Mesylate 0.5 Mg Tablet) 0.5 mg PO BID [facility] Last Admin: 06/13/24 08:42 Dose: 0.5 mg Betamethasone Dipropion Augmented (Betamethasone Dip Aug 0.05% Cr 15 Gm Tube) 1 appl TOPICAL BID [facility]; Protocol Last Admin: 06/13/24 08:43 Dose: Not Given Docusate Sodium (Docusate Sodium 100 Mg Capsule) 100 mg PO BEDTIME [facility] Last Admin: 06/12/24 20:37 Dose: 100 mg Ferrous Sulfate (Ferrous Sulfate 324 Mg Tablet.Dr) 324 mg PO DAILY [facility] Last Admin: 06/13/24 08:43 Dose: 324 mg Haloperidol (Haloperidol 5 Mg Tablet) 5 mg PO BEDTIME [facility] Last Admin: 06/12/24 20:36 Dose: 5 mg Hydroxyzine HCl (Hydroxyzine Hcl 25 Mg Tablet) 25 mg PO Q6H PRN PRN Reason: Anxiety Last Admin: 06/11/24 19:58 Dose: 25 mg Hydroxyzine HCl (Hydroxyzine Hcl 25 Mg Tablet) 25 mg PO BID@0900,1700 [facility] Last Admin: 06/13/24 14:02 Dose: 25 mg Insulin Glargine (Insulin Glargine,Hum.Rec.Anlog 100 Unit/Ml 10 Ml Vial) 20 unit SUBCUT DAILY [facility] Last Admin: 06/13/24 08:44 Dose: 20 unit Magnesium Hydroxide (Milk Of Magnesia 30 Ml Oral.Susp) 30 ml PO DAILY PRN PRN Reason: Constipation Meclizine HCl (Meclizine Hcl 25 Mg Tablet) 25 mg PO TID PRN PRN Reason: dizziness Melatonin (Melatonin 3 Mg Tablet) 6 mg PO BEDTIME [facility] Last Admin: 06/12/24 20:36 Dose: 6 mg Metformin HCl (Metformin Hcl 1,000 Mg Tablet) 1,000 mg PO BID [facility] Last Admin: 06/13/24 08:42 Dose: 1,000 mg Multi-Ingred Cream/Lotion/Oil/Oint (Mineral Oil/Petrolatum,White 106 Gm Tube) 1 appl TOPICAL TID [facility]; Protocol Last Admin: 06/13/24 14:05 Dose: 1 appl Nicotine (Nicotine 21 Mg Patch.Td24) 21 mg TRANSDERMA DAILY [facility] Last Admin: 06/13/24 08:43 Dose: Not Given Nicotine Polacrilex (Nicotine Polacrilex 2 Mg Gum) 4 mg BUCCAL Q2H PRN PRN Reason: Nicotine Cravings Omeprazole (Omeprazole 40 Mg Capsule.Dr) 40 mg PO DAILY@0630 [facility] Last Admin: 06/13/24 05:58 Dose: 40 mg Tamsulosin HCl (Tamsulosin Hcl 0.4 Mg Capsule) 0.4 mg PO BEDTIME [facility] Last Admin: 06/12/24 20:40 Dose: 0.4 mg Thiamine HCl (Thiamine Hcl 100 Mg Tablet) 100 mg PO BID [facility] Last Admin: 06/13/24 08:42 Dose: 100 mg Trazodone HCl (Trazodone Hcl 50 Mg Tablet) 50 mg PO BEDTIME PRN PRN Reason: sleep Last Admin: 06/11/24 19:58 Dose: 50 mg Vitamin D (Cholecalciferol (Vitamin D3) 25 Mcg Tablet) 50 mcg PO DAILY [facility] Last Admin: 06/13/24 08:42 Dose: 50 mcg Allergies Allergies Allergy/AdvReac Type Severity Reaction Status Date / Time pollen extracts [POLLEN] Allergy Mild RUNNY NOSE Verified 06/09/24 15:01 cat dander [CATS] Allergy Unknown UNKNOWN Verified 06/03/24 14:41 dog dander [DOGS] Allergy Unknown UNKNOWN Verified 06/03/24 14:41 mold [MOLD] Allergy Unknown UNKNOWN Verified 06/03/24 14:41 Assessment & Plan Assessment & Plan (1) MDD (major depressive disorder), recurrent episode: Status: Acute Code(s): F33.9 - Major depressive disorder, recurrent, unspecified (2) CATIE (generalized anxiety disorder): Status: Acute Code(s): F41.1 - Generalized anxiety disorder Plan Patient is a 53-year-old male with history of MDD and CATIE, who presented to [facility] via ambulance due to chest pain and vague suicidal ideation. Plan: CV 15 minute safety checks Continue home medications Referral to a day program ? PHP Encourage groups Discharge planning 06/11: Active on unit. Pt continues to report feeling anxious and depressed ; pt stated, nothing has changed. I still feel suicidal because I've had enough of stress . Pt reports suicidal ideation with no plan. He reports auditory hallucinations that have quieted down ; denies HI/VH. Per nursing, slept 8 hours last night. discussed starting on abilify; risks/benefits reviewed. Start: Abilify 5mg PO daily decrease haldol to 5mg PO bedtime 06/12: Active on unit. Pt continues to report feeling depressed ; Pt reports suicidal ideation with no plan. States he wants to go to [facility] because he feels safer there; pt unable to elaborate more on this. denies HI/VH. reports auditory hallucinations telling him to harm himself. continue current tx plan 2/3: c/o CAH to self harm, SI with plan to stab nheck or OD. c/o overwhelming anxiety when at home. start hydroxyzine 25 BID @ 0900,1700. Reason for continued inpatient stay Substantial Risk for: harm to self Time Spent With Patient Time: Total time managing care of this patient today __25__ minutes.
--- NOTE | 2024-06-13 16:48 | HO.WOUND ---
Wound Consult: Initial 53yr old?male admitted to [facility] on 06/10/24 to the Adult Behavioral Health Unit - See progress notes and H&P for detailed history.? Wound consult placed for Left Chest wound.? Patient agreeable to assessment and photo documentation. 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 See chart review for details. Left Chest 05/24/24 Last admission - on admission Left Chest 06/01/24 Left Chest 06/13/24 Etiology: ??Unclear Etiology Present on Admission Measurements: approximately 1cm x 1cm x 0.2cm Wound Bed: Resolving wound beds significant improvement noted three areas remain open the rest remain with newly epithelialized fragile tissue Drainage / Odor: none at the time of my assessment no dressing in place noted Edges: ? irregular and scarred Kay wound: ?hyperpigmented tissue noted, significant scar tissue noted and irregular healing noted - No Induration, Fluctuance or Warmth noted Pain: denies pain and reports the itching has resolved with use of topical steroid cream last admission - if itching returns recommend topical steroid Goals of Treatment: ? durafiber AG Of note patient may shower. Recommendations: 1. When applicable maintain blood glucose levels per Providers order. 2. Left Chest - Cleanse with NS moist gauze, pat dry. Apply skin prep to periwound. Cover open wounds with Durafiber AG, Dry gauze, ABD pad and Tape OR foam dressing. Change Durafiber every other day. Re-consult wound care Nurse for wound deterioration or wound changes.
[2024-06-13 17:04] LABS: Glucose, Whole Blood 79 mg/dL (60-115)
[2024-06-13 20:00] VITALS: BP 130/66; PULSE 67; RESP 18; TEMP 36.8; O2SAT 95
[2024-06-13 20:26] LABS: Glucose, Whole Blood 144 mg/dL (60-115)
[2024-06-13] MEDS: HaloperidoL 5 MG TABLET PO (21:07)
[2024-06-13] MEDS: Melatonin 3 MG TABLET 6 MG PO (21:08)
[2024-06-13] MEDS: Docusate Sodium 100 MG CAPSULE PO (21:08)
[2024-06-13] MEDS: Tamsulosin HCL 0.4 MG CAPSULE PO (21:08)
[2024-06-14] MEDS: Albuterol Sulfate 90 MCG 8 GM INHALER 2 PUFF INHALE ×5 (01:34→18:10)
[2024-06-14] MEDS: Omeprazole 40 MG CAPSULE.DR PO (06:27)
[2024-06-14 07:49] VITALS: BP 123/73; PULSE 96; RESP 16; TEMP 37.2; O2SAT 91
[2024-06-14] MEDS: Ferrous Sulfate 324 MG TABLET.DR PO (08:00)
[2024-06-14] MEDS: Thiamine HCL 100 MG TABLET PO ×2 (08:00→22:12)
[2024-06-14] MEDS: Cholecalciferol (Vitamin D3) 25 MCG TABLET 50 MCG PO (08:00)
[2024-06-14] MEDS: hydrOXYzine HCL 25 MG TABLET PO ×2 (08:00→17:16)
[2024-06-14 08:01] VITALS: BP 123/73; PULSE 96
[2024-06-14] MEDS: atenoloL 25 MG TABLET PO (08:01)
[2024-06-14] MEDS: ARIPiprazole 5 MG TABLET PO (08:01)
[2024-06-14] MEDS: Atorvastatin Calcium 40 MG TABLET PO (08:01)
[2024-06-14] MEDS: metFORMIN HCl 1,000 MG TABLET 1000 MG PO ×2 (08:01→22:12)
[2024-06-14] MEDS: Benztropine Mesylate 0.5 MG TABLET PO ×2 (08:01→22:12)
[2024-06-14] MEDS: Insulin Glargine,Hum.rec.anlog 100 UNIT/ML 10 ML VIAL 20 UNIT SUBCUT (08:02)
[2024-06-14 08:20] LABS: Glucose, Whole Blood 114 mg/dL (60-115)
--- NOTE | 2024-06-14 10:42 | HO.PSYCHPN ---
Subjective Subjective Date of Service: 06/14/24 Reason For Visit: Crisis Subjective Notes: Conditional Voluntary Interim History: Flu +; moved to single room. Pt reports feeling anxious and depressed ; pt stated, I'm having voices telling me to end it. I'm having suicidal thoughts . Pt reports if he were to be discharged he would come right back because I've been alone for so long . Pt states the primary reason for his suicidal thoughts is d/t feeling lonely . Encouraged to attend [facility]. Haldol increased to 10mg PO bedtime Medication Compliance: Yes Side effects from medications: No Attending Groups: Yes Mental Status Exam Mental Status Exam Narrative: Pt is alert and oriented; behavior is cooperative, calm; dressed in casual attire; eye contact appropriate; Speech is normal rate, volume and not pressured; thought process is organized; Thought content is on tx; no HI/VH. Patient reports suicidal ideation with plan to stab himself in the neck or overdose on medications. He reports auditory hallucinations telling him to harm himself. Diagnostics Vital Signs (24Hr): Vital Signs - 24 hr 06/13/24 20:00 06/14/24 07:49 06/14/24 08:01 Temperature 98.3 F 98.9 F Pulse Rate 67 96 96 Respiratory Rate 18 16 Blood Pressure 130/66 123/73 123/73 Pulse Oximetry 95 91 L Oxygen Delivery Method Room Air Room Air BMI result Body Mass Index 35.8 Labs 06/09/24 15:43 06/10/24 16:19 Labs: Laboratory Results - last 48 hr 06/12/24 06/12/24 06/12/24 12:04 16:57 20:06 POC Glucose 82 132 H 125 H 06/13/24 06/13/24 06/13/24 08:07 11:58 16:57 POC Glucose 101 87 79 06/13/24 06/14/24 20:17 07:56 POC Glucose 144 H 114 Medications Medications Current Medications Acetaminophen (Acetaminophen 325 Mg Tablet) 650 mg PO Q6H PRN PRN Reason: Headache/Pain Mild Scale (1-3) Al Hydroxide/Mg Hydroxide (Magnesium Hydrox/Alum Hydrox 30 Ml Oral.Susp) 30 ml PO Q6H PRN PRN Reason: Heartburn/Nausea Last Admin: 06/13/24 03:24 Dose: 30 ml Albuterol Sulfate (Albuterol Sulfate 90 Mcg 8 Gm Inhaler) 2 puff INHALE Q4H PRN PRN Reason: for wheezing Last Admin: 06/14/24 08:17 Dose: 2 puff Aripiprazole (Aripiprazole 5 Mg Tablet) 5 mg PO DAILY [facility] Last Admin: 06/14/24 08:01 Dose: 5 mg Atenolol (Atenolol 25 Mg Tablet) 25 mg PO DAILY [facility]; Protocol Last Admin: 06/14/24 08:01 Dose: 25 mg Atorvastatin Calcium (Atorvastatin Calcium 40 Mg Tablet) 40 mg PO DAILY [facility] Last Admin: 06/14/24 08:01 Dose: 40 mg Benztropine Mesylate (Benztropine Mesylate 0.5 Mg Tablet) 0.5 mg PO BID [facility] Last Admin: 06/14/24 08:01 Dose: 0.5 mg Betamethasone Dipropion Augmented (Betamethasone Dip Aug 0.05% Cr 15 Gm Tube) 1 appl TOPICAL BID [facility]; Protocol Last Admin: 06/14/24 08:15 Dose: Not Given Docusate Sodium (Docusate Sodium 100 Mg Capsule) 100 mg PO BEDTIME [facility] Last Admin: 06/13/24 21:08 Dose: 100 mg Ferrous Sulfate (Ferrous Sulfate 324 Mg Tablet.Dr) 324 mg PO DAILY [facility] Last Admin: 06/14/24 08:00 Dose: 324 mg Haloperidol (Haloperidol 5 Mg Tablet) 5 mg PO BEDTIME [facility] Last Admin: 06/13/24 21:07 Dose: 5 mg Hydroxyzine HCl (Hydroxyzine Hcl 25 Mg Tablet) 25 mg PO Q6H PRN PRN Reason: Anxiety Last Admin: 06/11/24 19:58 Dose: 25 mg Hydroxyzine HCl (Hydroxyzine Hcl 25 Mg Tablet) 25 mg PO BID@0900,1700 [facility] Last Admin: 06/14/24 08:00 Dose: 25 mg Insulin Glargine (Insulin Glargine,Hum.Rec.Anlog 100 Unit/Ml 10 Ml Vial) 20 unit SUBCUT DAILY [facility] Last Admin: 06/14/24 08:02 Dose: 20 unit Magnesium Hydroxide (Milk Of Magnesia 30 Ml Oral.Susp) 30 ml PO DAILY PRN PRN Reason: Constipation Meclizine HCl (Meclizine Hcl 25 Mg Tablet) 25 mg PO TID PRN PRN Reason: dizziness Melatonin (Melatonin 3 Mg Tablet) 6 mg PO BEDTIME [facility] Last Admin: 06/13/24 21:08 Dose: 6 mg Metformin HCl (Metformin Hcl 1,000 Mg Tablet) 1,000 mg PO BID [facility] Last Admin: 06/14/24 08:01 Dose: 1,000 mg Multi-Ingred Cream/Lotion/Oil/Oint (Mineral Oil/Petrolatum,White 106 Gm Tube) 1 appl TOPICAL TID [facility]; Protocol Last Admin: 06/14/24 08:10 Dose: Not Given Nicotine (Nicotine 21 Mg Patch.Td24) 21 mg TRANSDERMA DAILY [facility] Last Admin: 06/14/24 08:10 Dose: Not Given Nicotine Polacrilex (Nicotine Polacrilex 2 Mg Gum) 4 mg BUCCAL Q2H PRN PRN Reason: Nicotine Cravings Omeprazole (Omeprazole 40 Mg Capsule.Dr) 40 mg PO DAILY@0630 [facility] Last Admin: 06/14/24 06:27 Dose: 40 mg Tamsulosin HCl (Tamsulosin Hcl 0.4 Mg Capsule) 0.4 mg PO BEDTIME [facility] Last Admin: 06/13/24 21:08 Dose: 0.4 mg Thiamine HCl (Thiamine Hcl 100 Mg Tablet) 100 mg PO BID [facility] Last Admin: 06/14/24 08:00 Dose: 100 mg Trazodone HCl (Trazodone Hcl 50 Mg Tablet) 50 mg PO BEDTIME PRN PRN Reason: sleep Last Admin: 06/11/24 19:58 Dose: 50 mg Vitamin D (Cholecalciferol (Vitamin D3) 25 Mcg Tablet) 50 mcg PO DAILY [facility] Last Admin: 06/14/24 08:00 Dose: 50 mcg Allergies Allergies Allergy/AdvReac Type Severity Reaction Status Date / Time pollen extracts [POLLEN] Allergy Mild RUNNY NOSE Verified 06/09/24 15:01 cat dander [CATS] Allergy Unknown UNKNOWN Verified 06/03/24 14:41 dog dander [DOGS] Allergy Unknown UNKNOWN Verified 06/03/24 14:41 mold [MOLD] Allergy Unknown UNKNOWN Verified 06/03/24 14:41 Assessment & Plan Assessment & Plan (1) MDD (major depressive disorder), recurrent episode: Status: Acute Code(s): F33.9 - Major depressive disorder, recurrent, unspecified (2) CATIE (generalized anxiety disorder): Status: Acute Code(s): F41.1 - Generalized anxiety disorder Plan Patient is a 53-year-old male with history of MDD and CATIE, who presented to [facility] ER via ambulance due to chest pain and vague suicidal ideation. Plan: CV 15 minute safety checks Continue home medications Referral to a day program ? PHP Encourage groups Discharge planning 06/11: Active on unit. Pt continues to report feeling anxious and depressed ; pt stated, nothing has changed. I still feel suicidal because I've had enough of stress . Pt reports suicidal ideation with no plan. He reports auditory hallucinations that have quieted down ; denies HI/VH. Per nursing, slept 8 hours last night. discussed starting on abilify; risks/benefits reviewed. Start: Abilify 5mg PO daily decrease haldol to 5mg PO bedtime 06/12: Active on unit. Pt continues to report feeling depressed ; Pt reports suicidal ideation with no plan. States he wants to go to because he feels safer there; pt unable to elaborate more on this. denies HI/VH. reports auditory hallucinations telling him to harm himself. continue current tx plan 06/13: c/o CAH to self harm, SI with plan to stab nheck or OD. c/o overwhelming anxiety when at home. start hydroxyzine 25 BID @ 0900,1700. 06/14: Flu +; moved to single room. Pt reports feeling anxious and depressed ; pt stated, I'm having voices telling me to end it. I'm having suicidal thoughts . Pt reports if he were to be discharged he would come right back because I've been alone for so long . Pt states the primary reason for his suicidal thoughts is d/t feeling lonely . Encouraged to attend [facility]. Haldol increased to 10mg PO bedtime Patient educated on: diagnosis, medication risk/benefits and therapeutic strategies Reason for continued inpatient stay Substantial Risk for: harm to self and med/psych decompensation Time Spent With Patient Time: Total time managing care of this patient today _20___ minutes.
[2024-06-14 12:06] LABS: Glucose, Whole Blood 95 mg/dL (60-115)
[2024-06-14 12:41] LABS: Influenza A PCR POSITIVE (Negative); Influenza B PCR NEGATIVE (Negative); Resp Syncy Virus RNA Qual PCR NEGATIVE (Negative); SARS COV2 PCR INHOUSE NEGATIVE (Negative)
[2024-06-14] MEDS: Mineral Oil/Petrolatum,White 106 GM Tube 1 APPL TOPICAL ×2 (15:48→22:31)
[2024-06-14 17:05] LABS: Glucose, Whole Blood 107 mg/dL (60-115)
[2024-06-14 19:40] VITALS: BP 128/57; PULSE 97; TEMP 39.2; O2SAT 93
[2024-06-14] MEDS: Acetaminophen 325 MG TABLET 650 MG PO (20:27)
[2024-06-14 21:23] LABS: Glucose, Whole Blood 137 mg/dL (60-115)
[2024-06-14] MEDS: Melatonin 3 MG TABLET 6 MG PO (22:12)
[2024-06-14] MEDS: Docusate Sodium 100 MG CAPSULE PO (22:12)
[2024-06-14] MEDS: HaloperidoL 5 MG TABLET 10 MG PO (22:12)
[2024-06-14] MEDS: Tamsulosin HCL 0.4 MG CAPSULE PO (22:12)
[2024-06-14 22:32] VITALS: TEMP 36.4
[2024-06-15] MEDS: Albuterol Sulfate 90 MCG 8 GM INHALER 2 PUFF INHALE ×3 (05:27→20:09)
[2024-06-15 05:30] VITALS: O2SAT 94
[2024-06-15] MEDS: Omeprazole 40 MG CAPSULE.DR PO (06:51)
[2024-06-15 06:52] VITALS: TEMP 37
[2024-06-15 07:48] VITALS: BP 110/55; PULSE 86; RESP 16; TEMP 38.1; O2SAT 90
[2024-06-15 07:55] LABS: Glucose, Whole Blood 112 mg/dL (60-115)
[2024-06-15] MEDS: Insulin Glargine,Hum.rec.anlog 100 UNIT/ML 10 ML VIAL 20 UNIT SUBCUT (08:07)
[2024-06-15] MEDS: Cholecalciferol (Vitamin D3) 25 MCG TABLET 50 MCG PO (09:28)
[2024-06-15] MEDS: ARIPiprazole 5 MG TABLET PO (09:28)
[2024-06-15] MEDS: Atorvastatin Calcium 40 MG TABLET PO (09:28)
[2024-06-15] MEDS: Benztropine Mesylate 0.5 MG TABLET PO ×2 (09:28→23:17)
[2024-06-15] MEDS: hydrOXYzine HCL 25 MG TABLET PO ×2 (09:28→17:19)
[2024-06-15] MEDS: Thiamine HCL 100 MG TABLET PO ×2 (09:29→23:17)
[2024-06-15 09:30] VITALS: BP 141/63; PULSE 97
[2024-06-15] MEDS: atenoloL 25 MG TABLET PO (09:30)
[2024-06-15 12:09] LABS: Glucose, Whole Blood 100 mg/dL (60-115)
[2024-06-15] MEDS: Mineral Oil/Petrolatum,White 106 GM Tube 1 APPL TOPICAL (15:36)
--- NOTE | 2024-06-15 15:43 | P.PNPSI_ITS ---
Subjective Subjective Date of Service: 06/15/24 Reason For Visit: Crisis Interim History: calm, cooperative, pleasant. asking for cough medicine. states he can't stay alone in his room, despite being on isolation precautions for the flu. per staff, flu+. c/o SI. blunted affect. taking meds. c/o AH. T 102.5 last NOC. slept 6 hours. Mental Status Exam Mental Status Exam Narrative: Pt is alert and oriented; behavior is cooperative, calm; dressed in casual attire; eye contact appropriate; Speech is normal rate, volume and not pressured; thought process is organized; Thought content is on inability to tolerate isolation; no SI/HI/AVH expressed. Diagnostics Vital Signs (24Hr): Vital Signs - 24 hr 06/14/24 19:40 06/14/24 22:32 06/15/24 05:30 Temperature 102.5 F H 97.6 F Pulse Rate 97 Respiratory Rate Blood Pressure 128/57 L Pulse Oximetry 93 94 Oxygen Delivery Method Room Air Room Air 06/15/24 06:52 06/15/24 07:48 06/15/24 09:30 Temperature 98.6 F 100.5 F H Pulse Rate 86 97 Respiratory Rate 16 Blood Pressure 110/55 L 141/63 H Pulse Oximetry 90 L Oxygen Delivery Method Room Air BMI result Body Mass Index 35.8 Labs 06/09/24 15:43 06/10/24 16:19 Labs: Laboratory Results - last 48 hr 06/13/24 06/13/24 06/14/24 16:57 20:17 07:56 POC Glucose 79 144 H 114 Influenza Type A (PCR) Influenza Type B (PCR) RSV RNA Qual (PCR) SARS-CoV-2 RNA (RT-PCR) 06/14/24 06/14/24 06/14/24 10:25 12:01 17:01 POC Glucose 95 107 Influenza Type A (PCR) POSITIVE A Influenza Type B (PCR) NEGATIVE RSV RNA Qual (PCR) NEGATIVE SARS-CoV-2 RNA (RT-PCR) NEGATIVE 06/14/24 06/15/24 06/15/24 21:19 07:51 12:04 POC Glucose 137 H 112 100 Influenza Type A (PCR) Influenza Type B (PCR) RSV RNA Qual (PCR) SARS-CoV-2 RNA (RT-PCR) Medications Medications Current Medications Acetaminophen (Acetaminophen 325 Mg Tablet) 650 mg PO Q6H PRN PRN Reason: Headache/Pain Mild Scale (1-3) Last Admin: 06/14/24 20:27 Dose: 650 mg Al Hydroxide/Mg Hydroxide (Magnesium Hydrox/Alum Hydrox 30 Ml Oral.Susp) 30 ml PO Q6H PRN PRN Reason: Heartburn/Nausea Last Admin: 06/13/24 03:24 Dose: 30 ml Albuterol Sulfate (Albuterol Sulfate 90 Mcg 8 Gm Inhaler) 2 puff INHALE Q4H PRN PRN Reason: for wheezing Last Admin: 06/15/24 09:38 Dose: 2 puff Albuterol/Ipratropium (Albuterol/Iprat 2.5/0.5mg 3 Ml Ampul.Neb) 3 ml INHALE RQ6H WHILE AWAKE PRN PRN Reason: Shortness of Breath Aripiprazole (Aripiprazole 5 Mg Tablet) 5 mg PO DAILY DANIEL Last Admin: 06/15/24 09:28 Dose: 5 mg Atenolol (Atenolol 25 Mg Tablet) 25 mg PO DAILY DANIEL; Protocol Last Admin: 06/15/24 09:30 Dose: 25 mg Atorvastatin Calcium (Atorvastatin Calcium 40 Mg Tablet) 40 mg PO DAILY DANIEL Last Admin: 06/15/24 09:28 Dose: 40 mg Benztropine Mesylate (Benztropine Mesylate 0.5 Mg Tablet) 0.5 mg PO BID DANIEL Last Admin: 06/15/24 09:28 Dose: 0.5 mg Betamethasone Dipropion Augmented (Betamethasone Dip Aug 0.05% Cr 15 Gm Tube) 1 appl TOPICAL BID DANIEL; Protocol Last Admin: 06/15/24 09:35 Dose: Not Given Docusate Sodium (Docusate Sodium 100 Mg Capsule) 100 mg PO BEDTIME DANIEL Last Admin: 06/14/24 22:12 Dose: 100 mg Ferrous Sulfate (Ferrous Sulfate 324 Mg Tablet.Dr) 324 mg PO DAILY DANIEL Last Admin: 06/15/24 09:31 Dose: Not Given Guaifenesin (Guaifenesin 100 Mg/5 Ml 5 Ml Liquid) 5 ml PO Q4H PRN PRN Reason: Cough Guaifenesin (Guaifenesin La 600 Mg Tab.Er.12h) 600 mg PO BID PRN PRN Reason: Cough Haloperidol (Haloperidol 5 Mg Tablet) 10 mg PO BEDTIME DANIEL Last Admin: 06/14/24 22:12 Dose: 10 mg Hydroxyzine HCl (Hydroxyzine Hcl 25 Mg Tablet) 25 mg PO Q6H PRN PRN Reason: Anxiety Last Admin: 06/11/24 19:58 Dose: 25 mg Hydroxyzine HCl (Hydroxyzine Hcl 25 Mg Tablet) 25 mg PO BID@0900,1700 [facility] Last Admin: 06/15/24 09:28 Dose: 25 mg Insulin Glargine (Insulin Glargine,Hum.Rec.Anlog 100 Unit/Ml 10 Ml Vial) 20 unit SUBCUT DAILY [facility] Last Admin: 06/15/24 08:07 Dose: 20 unit Magnesium Hydroxide (Milk Of Magnesia 30 Ml Oral.Susp) 30 ml PO DAILY PRN PRN Reason: Constipation Meclizine HCl (Meclizine Hcl 25 Mg Tablet) 25 mg PO TID PRN PRN Reason: dizziness Melatonin (Melatonin 3 Mg Tablet) 6 mg PO BEDTIME [facility] Last Admin: 06/14/24 22:12 Dose: 6 mg Metformin HCl (Metformin Hcl 1,000 Mg Tablet) 1,000 mg PO BID [facility] Last Admin: 06/15/24 09:34 Dose: Not Given Multi-Ingred Cream/Lotion/Oil/Oint (Mineral Oil/Petrolatum,White 106 Gm Tube) 1 appl TOPICAL TID [facility]; Protocol Last Admin: 06/15/24 15:36 Dose: 1 appl Nicotine (Nicotine 21 Mg Patch.Td24) 21 mg TRANSDERMA DAILY [facility] Last Admin: 06/15/24 09:35 Dose: Not Given Nicotine Polacrilex (Nicotine Polacrilex 2 Mg Gum) 4 mg BUCCAL Q2H PRN PRN Reason: Nicotine Cravings Omeprazole (Omeprazole 40 Mg Capsule.Dr) 40 mg PO DAILY@0630 [facility] Last Admin: 06/15/24 06:51 Dose: 40 mg Tamsulosin HCl (Tamsulosin Hcl 0.4 Mg Capsule) 0.4 mg PO BEDTIME [facility] Last Admin: 06/14/24 22:12 Dose: 0.4 mg Thiamine HCl (Thiamine Hcl 100 Mg Tablet) 100 mg PO BID [facility] Last Admin: 06/15/24 09:29 Dose: 100 mg Trazodone HCl (Trazodone Hcl 50 Mg Tablet) 50 mg PO BEDTIME PRN PRN Reason: sleep Last Admin: 06/11/24 19:58 Dose: 50 mg Vitamin D (Cholecalciferol (Vitamin D3) 25 Mcg Tablet) 50 mcg PO DAILY DANIEL Last Admin: 06/15/24 09:28 Dose: 50 mcg Allergies Allergies Allergy/AdvReac Type Severity Reaction Status Date / Time pollen extracts [POLLEN] Allergy Mild RUNNY NOSE Verified 06/09/24 15:01 cat dander [CATS] Allergy Unknown UNKNOWN Verified 06/03/24 14:41 dog dander [DOGS] Allergy Unknown UNKNOWN Verified 06/03/24 14:41 mold [MOLD] Allergy Unknown UNKNOWN Verified 06/03/24 14:41 Assessment & Plan Assessment & Plan (1) MDD (major depressive disorder), recurrent episode: Status: Acute Code(s): F33.9 - Major depressive disorder, recurrent, unspecified (2) CATIE (generalized anxiety disorder): Status: Acute Code(s): F41.1 - Generalized anxiety disorder Plan Patient is a 53-year-old male with history of MDD and CATIE, who presented to [facility] via ambulance due to chest pain and vague suicidal ideation. Plan: CV 15 minute safety checks Continue home medications Referral to a day program ? [facility] Encourage groups Discharge planning 06/11: Active on unit. Pt continues to report feeling anxious and depressed ; pt stated, nothing has changed. I still feel suicidal because I've had enough of stress . Pt reports suicidal ideation with no plan. He reports auditory hallucinations that have quieted down ; denies HI/VH. Per nursing, slept 8 hours last night. discussed starting on abilify; risks/benefits reviewed. Start: Abilify 5mg PO daily decrease haldol to 5mg PO bedtime 06/12: Active on unit. Pt continues to report feeling depressed ; Pt reports suicidal ideation with no plan. States he wants to go to because he feels safer there; pt unable to elaborate more on this. denies HI/VH. reports auditory hallucinations telling him to harm himself. continue current tx plan 2/3: c/o CAH to self harm, SI with plan to stab nheck or OD. c/o overwhelming anxiety when at home. start hydroxyzine 25 BID @ 0900,1700. /4: Flu +; moved to single room. Pt reports feeling anxious and depressed ; pt stated, I'm having voices telling me to end it. I'm having suicidal thoughts . Pt reports if he were to be discharged he would come right back because I've been alone for so long . Pt states the primary reason for his suicidal thoughts is d/t feeling lonely . Encouraged to attend [facility]. Haldol increased to 10mg PO bedtime 06/15: unable to remain in isolation. asking for cough medicine - guaifenesin Rxed. continue current mgmt. Reason for continued inpatient stay Substantial Risk for: harm to self, inability to function and rapid decompensation Time Spent With Patient Time: Total time managing care of this patient today __25__ minutes.
[2024-06-15 16:46] LABS: Glucose, Whole Blood 108 mg/dL (60-115)
[2024-06-15 20:05] VITALS: BP 119/62; PULSE 94; TEMP 38.4; O2SAT 92
[2024-06-15] MEDS: Acetaminophen 325 MG TABLET 650 MG PO (20:12)
[2024-06-15 22:34] VITALS: TEMP 36.7
[2024-06-15 23:11] LABS: Glucose, Whole Blood 125 mg/dL (60-115)
[2024-06-15] MEDS: metFORMIN HCl 1,000 MG TABLET 1000 MG PO (23:17)
[2024-06-15] MEDS: Melatonin 3 MG TABLET 6 MG PO (23:17)
[2024-06-15] MEDS: Tamsulosin HCL 0.4 MG CAPSULE PO (23:17)
[2024-06-15] MEDS: HaloperidoL 5 MG TABLET 10 MG PO (23:17)
[2024-06-15] MEDS: Docusate Sodium 100 MG CAPSULE PO (23:17)
[2024-06-16] MEDS: Omeprazole 40 MG CAPSULE.DR PO (06:51)
[2024-06-16] MEDS: Albuterol Sulfate 90 MCG 8 GM INHALER 2 PUFF INHALE (07:15)
[2024-06-16 08:09] LABS: Glucose, Whole Blood 94 mg/dL (60-115)
[2024-06-16 08:34] VITALS: BP 119/72; PULSE 89; RESP 14; TEMP 36.9; O2SAT 93
[2024-06-16] MEDS: Insulin Glargine,Hum.rec.anlog 100 UNIT/ML 10 ML VIAL 20 UNIT SUBCUT (08:36)
[2024-06-16] MEDS: Benztropine Mesylate 0.5 MG TABLET PO (08:38)
[2024-06-16] MEDS: Atorvastatin Calcium 40 MG TABLET PO (08:38)
[2024-06-16] MEDS: Cholecalciferol (Vitamin D3) 25 MCG TABLET 50 MCG PO (08:38)
[2024-06-16] MEDS: hydrOXYzine HCL 25 MG TABLET PO (08:38)
[2024-06-16] MEDS: Thiamine HCL 100 MG TABLET PO (08:38)
[2024-06-16] MEDS: ARIPiprazole 5 MG TABLET PO (08:38)
[2024-06-16] MEDS: atenoloL 25 MG TABLET PO (08:38)
[2024-06-16] MEDS: Mineral Oil/Petrolatum,White 106 GM Tube 1 APPL TOPICAL (08:45)
--- NOTE | 2024-06-16 09:28 | PM.PSYDC ---
DS: Providers Provider Date of Service: 06/16/24 Date of admission: 06/10/24 14:05 Date of discharge: 06/16/24 Primary care physician: Bon Arvizu MD Admitting clinician: Vicky Hicks Attending physician on admission: Federico Mauro Consults: 06/10/24 18:27 Consult to Wound Care Routine Reason for consultation: wound on left abdomen Attending physician on discharge: Federico Mauro Discharging clinician: Vicky Hicks DS: Diagnosis Discharge Diagnosis (1) MDD (major depressive disorder), recurrent episode: Status: Acute (2) CATIE (generalized anxiety disorder): Status: Acute DS: Medications Discharge Medications Home Medications: Home Medications ?Medication ?Instructions ?Recorded ?Confirmed insulin glargine-yfgn 100 unit/mL 20 unit subcut DAILY 05/17/24 06/09/24 (3 mL) subcutaneous pen Act Dry Mouth Gum 1 piece of gum PO TID PRN 06/03/24 06/09/24 Moisturizing Gum Previous Rx's ?Medication ?Instructions ?Recorded cholecalciferol (vitamin D3) 50 50 mcg PO DAILY 90 days #90 caps 10/06/23 mcg (2,000 unit) capsule atenolol 25 mg tablet 25 mg PO DAILY #90 tabs 01/20/24 metformin 1,000 mg tablet 1,000 mg PO BID 90 days #180 tabs 01/20/24 ferrous sulfate 325 mg (65 mg 325 mg PO DAILY #90 tabs 02/29/24 iron) tablet atorvastatin 40 mg tablet 40 mg PO DAILY 90 days #90 tabs 03/26/24 omeprazole 40 mg capsule,delayed 40 mg PO DAILY 90 days #90 caps 03/26/24 release bupropion HCl 150 mg 24 hr tablet, 150 mg PO QAM 30 days #30 tabs 03/27/24 extended release Ventolin HFA 90 mcg/actuation 2 puff PO Q4H PRN for wheezing #18 03/29/24 aerosol inhaler (albuterol sulfate) ea tamsulosin 0.4 mg capsule 0.4 mg PO BEDTIME 30 days #90 caps 04/22/24 trazodone 50 mg tablet 50 mg PO BEDTIME PRN sleep #90 tabs 04/22/24 meclizine 25 mg tablet 25 mg PO TID PRN dizziness #20 tabs 05/02/24 betamethasone, augmented 0.05 % 1 appl topical BID #15 grams 06/02/24 topical cream docusate sodium 100 mg capsule 100 mg PO BEDTIME #30 caps 06/02/24 melatonin 3 mg tablet 6 mg (2 x 3 mg) PO BEDTIME #30 tabs 06/02/24 thiamine mononitrate (vit B1) 100 100 mg PO BID #60 tabs 06/02/24 mg tablet white petrolatum-mineral oil 1 appl topical TID #15 grams 06/02/24 topical cream (Dermacerin topical cream) aripiprazole 5 mg tablet (Abilify) 5 mg PO DAILY 30 days #30 tabs 06/16/24 benztropine 0.5 mg tablet 0.5 mg PO BID 30 days #60 tabs 06/16/24 haloperidol 10 mg tablet 10 mg PO BEDTIME 30 days #30 tabs 06/16/24 hydroxyzine HCl 25 mg tablet 25 mg PO BID@0900,1700 30 days #60 06/16/24 tabs Mental Status Exam Mental Status Exam Narrative: Pt is alert and oriented; behavior is cooperative and calm; dressed in casual attire; mood is described as good ; eye contact appropriate; Speech is normal rate, volume and not pressured; thought process is organized; Thought content is on discharge; denies SI/HI/VH. Pt reports auditory hallucinations that are quieter than admission. Data Data Completed and Pending Completed studies during hospitalization [Text1]: 06/09/24 06/09/24 06/09/24 15:43 18:04 18:19 WBC 8.8 RBC 4.67 Hgb 13.8 L Hct 41.6 L MCV 89.1 MCH 29.6 MCHC 33.2 RDW 15.8 Plt Count 191 MPV 10.5 Immature Gran % (Auto) 0.3 Neut % (Auto) 78.4 H Lymph % (Auto) 14.1 L [place] % (Auto) 4.8 Eos % (Auto) 1.9 Baso % (Auto) 0.5 Lymph # (Auto) 1.2 [place] # (Auto) 0.4 Eos # (Auto) 0.2 Baso # (Auto) 0.0 Abs Immat Gran (auto) 0.03 Absolute Neuts (auto) 6.9 Absolute Nucleated RBC 0.000 Nucleated RBC % (auto) 0.0 Sodium 140 Potassium 4.3 Chloride 108 Carbon Dioxide 23 Anion Gap 13 BUN 28 H Creatinine 1.46 H Estim Creat Clear Calc 70.6 Estimated GFR 51 POC Glucose Random Glucose 87 Calcium 9.5 D Total Bilirubin 0.7 AST 26 ALT 13 Alkaline Phosphatase 82 Troponin I High Sens 4.4 4.5 Total Protein 7.4 Albumin 4.0 Triglycerides Cholesterol LDL Cholesterol, Calc HDL Cholesterol Urine Color Yellow Urine Appearance Clear Urine pH 5.5 Ur Specific [place] 1.020 Urine Protein Negative Urine Glucose (UA) Negative Urine Ketones Negative Urine Blood Small (1+) H Urine Nitrite Negative Ur Leukocyte Esterase Trace H Urine RBC 3-5 H Urine WBC 0-5 Ur Squamous Epith Cells 0-2 Urine Bacteria None Seen Hyaline Casts 0-2 Salicylates < 5.0 L Urine Opiates Screen Not Detected Ur Buprenorphine Scrn Not Detected Ur Oxycodone Screen Not Detected Urine Methadone Screen Not Detected Urine Fentanyl Screen Not Detected Acetaminophen < 3 Ur Barbiturates Screen Not Detected Ur Phencyclidine Scrn Not Detected Ur Amphetamines Screen Not Detected U Benzodiazepines Scrn Not Detected Urine Cocaine Screen Not Detected U Marijuana (THC) Screen Not Detected Influenza Type A (PCR) NEGATIVE Influenza Type B (PCR) NEGATIVE RSV RNA Qual (PCR) NEGATIVE SARS-CoV-2 RNA (RT-PCR) NEGATIVE 06/10/24 06/10/24 06/10/24 07:08 12:12 16:19 WBC RBC Hgb Hct MCV MCH MCHC RDW Plt Count MPV Immature Gran % (Auto) Neut % (Auto) Lymph % (Auto) [place] % (Auto) Eos % (Auto) Baso % (Auto) Lymph # (Auto) [place] # (Auto) Eos # (Auto) Baso # (Auto) Abs Immat Gran (auto) Absolute Neuts (auto) Absolute Nucleated RBC Nucleated RBC % (auto) Sodium 141 Potassium 4.6 Chloride 106 Carbon Dioxide 25 Anion Gap 15 BUN 29 H Creatinine 1.61 H Estim Creat Clear Calc 62.8 Estimated GFR 45 POC Glucose 78 83 Random Glucose 106 Calcium 10.0 Total Bilirubin 0.5 AST 30 ALT 16 Alkaline Phosphatase 89 Troponin I High Sens Total Protein 7.9 Albumin 4.1 Triglycerides Cholesterol LDL Cholesterol, Calc HDL Cholesterol Urine Color Urine Appearance Urine pH Ur Specific [place] Urine Protein Urine Glucose (UA) Urine Ketones Urine Blood Urine Nitrite Ur Leukocyte Esterase Urine RBC Urine WBC Ur Squamous Epith Cells Urine Bacteria Hyaline Casts Salicylates Urine Opiates Screen Ur Buprenorphine Scrn Ur Oxycodone Screen Urine Methadone Screen Urine Fentanyl Screen Acetaminophen Ur Barbiturates Screen Ur Phencyclidine Scrn Ur Amphetamines Screen U Benzodiazepines Scrn Urine Cocaine Screen U Marijuana (THC) Screen Influenza Type A (PCR) Influenza Type B (PCR) RSV RNA Qual (PCR) SARS-CoV-2 RNA (RT-PCR) 06/10/24 06/10/24 06/11/24 16:56 20:45 07:03 WBC RBC Hgb Hct MCV MCH MCHC RDW Plt Count MPV Immature Gran % (Auto) Neut % (Auto) Lymph % (Auto) [place] % (Auto) Eos % (Auto) Baso % (Auto) Lymph # (Auto) [place] # (Auto) Eos # (Auto) Baso # (Auto) Abs Immat Gran (auto) Absolute Neuts (auto) Absolute Nucleated RBC Nucleated RBC % (auto) Sodium Potassium Chloride Carbon Dioxide Anion Gap BUN Creatinine Estim Creat Clear Calc Estimated GFR POC Glucose 101 115 Random Glucose Calcium Total Bilirubin AST ALT Alkaline Phosphatase Troponin I High Sens Total Protein Albumin Triglycerides 170 H Cholesterol 126 LDL Cholesterol, Calc 62 HDL Cholesterol 30 L Urine Color Urine Appearance Urine pH Ur Specific [place] Urine Protein Urine Glucose (UA) Urine Ketones Urine Blood Urine Nitrite Ur Leukocyte Esterase Urine RBC Urine WBC Ur Squamous Epith Cells Urine Bacteria Hyaline Casts Salicylates Urine Opiates Screen Ur Buprenorphine Scrn Ur Oxycodone Screen Urine Methadone Screen Urine Fentanyl Screen Acetaminophen Ur Barbiturates Screen Ur Phencyclidine Scrn Ur Amphetamines Screen U Benzodiazepines Scrn Urine Cocaine Screen U Marijuana (THC) Screen Influenza Type A (PCR) Influenza Type B (PCR) RSV RNA Qual (PCR) SARS-CoV-2 RNA (RT-PCR) 06/11/24 06/11/24 06/11/24 07:49 12:02 16:53 WBC RBC Hgb Hct MCV MCH MCHC RDW Plt Count MPV Immature Gran % (Auto) Neut % (Auto) Lymph % (Auto) [place] % (Auto) Eos % (Auto) Baso % (Auto) Lymph # (Auto) [place] # (Auto) Eos # (Auto) Baso # (Auto) Abs Immat Gran (auto) Absolute Neuts (auto) Absolute Nucleated RBC Nucleated RBC % (auto) Sodium Potassium Chloride Carbon Dioxide Anion Gap BUN Creatinine Estim Creat Clear Calc Estimated GFR POC Glucose 92 114 98 Random Glucose Calcium Total Bilirubin AST ALT Alkaline Phosphatase Troponin I High Sens Total Protein Albumin Triglycerides Cholesterol LDL Cholesterol, Calc HDL Cholesterol Urine Color Urine Appearance Urine pH Ur Specific [place] Urine Protein Urine Glucose (UA) Urine Ketones Urine Blood Urine Nitrite Ur Leukocyte Esterase Urine RBC Urine WBC Ur Squamous Epith Cells Urine Bacteria Hyaline Casts Salicylates Urine Opiates Screen Ur Buprenorphine Scrn Ur Oxycodone Screen Urine Methadone Screen Urine Fentanyl Screen Acetaminophen Ur Barbiturates Screen Ur Phencyclidine Scrn Ur Amphetamines Screen U Benzodiazepines Scrn Urine Cocaine Screen U Marijuana (THC) Screen Influenza Type A (PCR) Influenza Type B (PCR) RSV RNA Qual (PCR) SARS-CoV-2 RNA (RT-PCR) 06/11/24 06/12/24 06/12/24 21:00 07:34 12:04 WBC RBC Hgb Hct MCV MCH MCHC RDW Plt Count MPV Immature Gran % (Auto) Neut % (Auto) Lymph % (Auto) [place] % (Auto) Eos % (Auto) Baso % (Auto) Lymph # (Auto) [place] # (Auto) Eos # (Auto) Baso # (Auto) Abs Immat Gran (auto) Absolute Neuts (auto) Absolute Nucleated RBC Nucleated RBC % (auto) Sodium Potassium Chloride Carbon Dioxide Anion Gap BUN Creatinine Estim Creat Clear Calc Estimated GFR POC Glucose 111 80 82 Random Glucose Calcium Total Bilirubin AST ALT Alkaline Phosphatase Troponin I High Sens Total Protein Albumin Triglycerides Cholesterol LDL Cholesterol, Calc HDL Cholesterol Urine Color Urine Appearance Urine pH Ur Specific [place] Urine Protein Urine Glucose (UA) Urine Ketones Urine Blood Urine Nitrite Ur Leukocyte Esterase Urine RBC Urine WBC Ur Squamous Epith Cells Urine Bacteria Hyaline Casts Salicylates Urine Opiates Screen Ur Buprenorphine Scrn Ur Oxycodone Screen Urine Methadone Screen Urine Fentanyl Screen Acetaminophen Ur Barbiturates Screen Ur Phencyclidine Scrn Ur Amphetamines Screen U Benzodiazepines Scrn Urine Cocaine Screen U Marijuana (THC) Screen Influenza Type A (PCR) Influenza Type B (PCR) RSV RNA Qual (PCR) SARS-CoV-2 RNA (RT-PCR) 06/12/24 06/12/24 06/13/24 16:57 20:06 08:07 WBC RBC Hgb Hct MCV MCH MCHC RDW Plt Count MPV Immature Gran % (Auto) Neut % (Auto) Lymph % (Auto) [place] % (Auto) Eos % (Auto) Baso % (Auto) Lymph # (Auto) [place] # (Auto) Eos # (Auto) Baso # (Auto) Abs Immat Gran (auto) Absolute Neuts (auto) Absolute Nucleated RBC Nucleated RBC % (auto) Sodium Potassium Chloride Carbon Dioxide Anion Gap BUN Creatinine Estim Creat Clear Calc Estimated GFR POC Glucose 132 H 125 H 101 Random Glucose Calcium Total Bilirubin AST ALT Alkaline Phosphatase Troponin I High Sens Total Protein Albumin Triglycerides Cholesterol LDL Cholesterol, Calc HDL Cholesterol Urine Color Urine Appearance Urine pH Ur Specific [place] Urine Protein Urine Glucose (UA) Urine Ketones Urine Blood Urine Nitrite Ur Leukocyte Esterase Urine RBC Urine WBC Ur Squamous Epith Cells Urine Bacteria Hyaline Casts Salicylates Urine Opiates Screen Ur Buprenorphine Scrn Ur Oxycodone Screen Urine Methadone Screen Urine Fentanyl Screen Acetaminophen Ur Barbiturates Screen Ur Phencyclidine Scrn Ur Amphetamines Screen U Benzodiazepines Scrn Urine Cocaine Screen U Marijuana (THC) Screen Influenza Type A (PCR) Influenza Type B (PCR) RSV RNA Qual (PCR) SARS-CoV-2 RNA (RT-PCR) 06/13/24 06/13/24 06/13/24 11:58 16:57 20:17 WBC RBC Hgb Hct MCV MCH MCHC RDW Plt Count MPV Immature Gran % (Auto) Neut % (Auto) Lymph % (Auto) [place] % (Auto) Eos % (Auto) Baso % (Auto) Lymph # (Auto) [place] # (Auto) Eos # (Auto) Baso # (Auto) Abs Immat Gran (auto) Absolute Neuts (auto) Absolute Nucleated RBC Nucleated RBC % (auto) Sodium Potassium Chloride Carbon Dioxide Anion Gap BUN Creatinine Estim Creat Clear Calc Estimated GFR POC Glucose 87 79 144 H Random Glucose Calcium Total Bilirubin AST ALT Alkaline Phosphatase Troponin I High Sens Total Protein Albumin Triglycerides Cholesterol LDL Cholesterol, Calc HDL Cholesterol Urine Color Urine Appearance Urine pH Ur Specific [place] Urine Protein Urine Glucose (UA) Urine Ketones Urine Blood Urine Nitrite Ur Leukocyte Esterase Urine RBC Urine WBC Ur Squamous Epith Cells Urine Bacteria Hyaline Casts Salicylates Urine Opiates Screen Ur Buprenorphine Scrn Ur Oxycodone Screen Urine Methadone Screen Urine Fentanyl Screen Acetaminophen Ur Barbiturates Screen Ur Phencyclidine Scrn Ur Amphetamines Screen U Benzodiazepines Scrn Urine Cocaine Screen U Marijuana (THC) Screen Influenza Type A (PCR) Influenza Type B (PCR) RSV RNA Qual (PCR) SARS-CoV-2 RNA (RT-PCR) 06/14/24 06/14/24 06/14/24 07:56 10:25 12:01 WBC RBC Hgb Hct MCV MCH MCHC RDW Plt Count MPV Immature Gran % (Auto) Neut % (Auto) Lymph % (Auto) [place] % (Auto) Eos % (Auto) Baso % (Auto) Lymph # (Auto) [place] # (Auto) Eos # (Auto) Baso # (Auto) Abs Immat Gran (auto) Absolute Neuts (auto) Absolute Nucleated RBC Nucleated RBC % (auto) Sodium Potassium Chloride Carbon Dioxide Anion Gap BUN Creatinine Estim Creat Clear Calc Estimated GFR POC Glucose 114 95 Random Glucose Calcium Total Bilirubin AST ALT Alkaline Phosphatase Troponin I High Sens Total Protein Albumin Triglycerides Cholesterol LDL Cholesterol, Calc HDL Cholesterol Urine Color Urine Appearance Urine pH Ur Specific [place] Urine Protein Urine Glucose (UA) Urine Ketones Urine Blood Urine Nitrite Ur Leukocyte Esterase Urine RBC Urine WBC Ur Squamous Epith Cells Urine Bacteria Hyaline Casts Salicylates Urine Opiates Screen Ur Buprenorphine Scrn Ur Oxycodone Screen Urine Methadone Screen Urine Fentanyl Screen Acetaminophen Ur Barbiturates Screen Ur Phencyclidine Scrn Ur Amphetamines Screen U Benzodiazepines Scrn Urine Cocaine Screen U Marijuana (THC) Screen Influenza Type A (PCR) POSITIVE A Influenza Type B (PCR) NEGATIVE RSV RNA Qual (PCR) NEGATIVE SARS-CoV-2 RNA (RT-PCR) NEGATIVE 06/14/24 06/14/24 06/15/24 17:01 21:19 07:51 WBC RBC Hgb Hct MCV MCH MCHC RDW Plt Count MPV Immature Gran % (Auto) Neut % (Auto) Lymph % (Auto) [place] % (Auto) Eos % (Auto) Baso % (Auto) Lymph # (Auto) [place] # (Auto) Eos # (Auto) Baso # (Auto) Abs Immat Gran (auto) Absolute Neuts (auto) Absolute Nucleated RBC Nucleated RBC % (auto) Sodium Potassium Chloride Carbon Dioxide Anion Gap BUN Creatinine Estim Creat Clear Calc Estimated GFR POC Glucose 107 137 H 112 Random Glucose Calcium Total Bilirubin AST ALT Alkaline Phosphatase Troponin I High Sens Total Protein Albumin Triglycerides Cholesterol LDL Cholesterol, Calc HDL Cholesterol Urine Color Urine Appearance Urine pH Ur Specific [place] Urine Protein Urine Glucose (UA) Urine Ketones Urine Blood Urine Nitrite Ur Leukocyte Esterase Urine RBC Urine WBC Ur Squamous Epith Cells Urine Bacteria Hyaline Casts Salicylates Urine Opiates Screen Ur Buprenorphine Scrn Ur Oxycodone Screen Urine Methadone Screen Urine Fentanyl Screen Acetaminophen Ur Barbiturates Screen Ur Phencyclidine Scrn Ur Amphetamines Screen U Benzodiazepines Scrn Urine Cocaine Screen U Marijuana (THC) Screen Influenza Type A (PCR) Influenza Type B (PCR) RSV RNA Qual (PCR) SARS-CoV-2 RNA (RT-PCR) 06/15/24 06/15/24 06/15/24 12:04 16:42 23:06 WBC RBC Hgb Hct MCV MCH MCHC RDW Plt Count MPV Immature Gran % (Auto) Neut % (Auto) Lymph % (Auto) [place] % (Auto) Eos % (Auto) Baso % (Auto) Lymph # (Auto) [place] # (Auto) Eos # (Auto) Baso # (Auto) Abs Immat Gran (auto) Absolute Neuts (auto) Absolute Nucleated RBC Nucleated RBC % (auto) Sodium Potassium Chloride Carbon Dioxide Anion Gap BUN Creatinine Estim Creat Clear Calc Estimated GFR POC Glucose 100 108 125 H Random Glucose Calcium Total Bilirubin AST ALT Alkaline Phosphatase Troponin I High Sens Total Protein Albumin Triglycerides Cholesterol LDL Cholesterol, Calc HDL Cholesterol Urine Color Urine Appearance Urine pH Ur Specific [place] Urine Protein Urine Glucose (UA) Urine Ketones Urine Blood Urine Nitrite Ur Leukocyte Esterase Urine RBC Urine WBC Ur Squamous Epith Cells Urine Bacteria Hyaline Casts Salicylates Urine Opiates Screen Ur Buprenorphine Scrn Ur Oxycodone Screen Urine Methadone Screen Urine Fentanyl Screen Acetaminophen Ur Barbiturates Screen Ur Phencyclidine Scrn Ur Amphetamines Screen U Benzodiazepines Scrn Urine Cocaine Screen U Marijuana (THC) Screen Influenza Type A (PCR) Influenza Type B (PCR) RSV RNA Qual (PCR) SARS-CoV-2 RNA (RT-PCR) 06/16/24 08:05 WBC RBC Hgb Hct MCV MCH MCHC RDW Plt Count MPV Immature Gran % (Auto) Neut % (Auto) Lymph % (Auto) [place] % (Auto) Eos % (Auto) Baso % (Auto) Lymph # (Auto) [place] # (Auto) Eos # (Auto) Baso # (Auto) Abs Immat Gran (auto) Absolute Neuts (auto) Absolute Nucleated RBC Nucleated RBC % (auto) Sodium Potassium Chloride Carbon Dioxide Anion Gap BUN Creatinine Estim Creat Clear Calc Estimated GFR POC Glucose 94 Random Glucose Calcium Total Bilirubin AST ALT Alkaline Phosphatase Troponin I High Sens Total Protein Albumin Triglycerides Cholesterol LDL Cholesterol, Calc HDL Cholesterol Urine Color Urine Appearance Urine pH Ur Specific [place] Urine Protein Urine Glucose (UA) Urine Ketones Urine Blood Urine Nitrite Ur Leukocyte Esterase Urine RBC Urine WBC Ur Squamous Epith Cells Urine Bacteria Hyaline Casts Salicylates Urine Opiates Screen Ur Buprenorphine Scrn Ur Oxycodone Screen Urine Methadone Screen Urine Fentanyl Screen Acetaminophen Ur Barbiturates Screen Ur Phencyclidine Scrn Ur Amphetamines Screen U Benzodiazepines Scrn Urine Cocaine Screen U Marijuana (THC) Screen Influenza Type A (PCR) Influenza Type B (PCR) RSV RNA Qual (PCR) SARS-CoV-2 RNA (RT-PCR) DS: Summary Hospital Course Hospital Course: Patient is a 53-year-old male with history of MDD and CATIE, who presented to [facility] via ambulance due to chest pain and vague suicidal ideation. Per crisis report, patient presented to ER on 06/04/2024 with a similar presentation, he was placed at [facility] from 06/05/24-06/09/24; patient was also recently on M5 from 05/19/24-06/04/24. Patient received referrals to [facility] for follow up and to [facility]. Patient reports that after discharging from [facility], he went home and started to experience chest pain. He decided to go for a walk and called 911. He reported depression and vague suicidal ideation upon triage. Patient reported passive suicidal ideation with the thoughts of rolling down a hill and whatever happens. happens . denies HI/VH/AH. Patient struggles with feelings of loneliness and associates these feelings with feeling unsafe. He is medication compliant and reports that they have been overall helpful. Patient's brother has been encouraging patient to find a job which is causing patient to feel overwhelmed. Denies history of SA/SIB. History of auditory hallucinations and homicidal ideation to stab others with a pen which he reported prior to his admission to . Denies any substance use. Utox negative. During admission assessment, patient presents alert and oriented x3. Calm and cooperative. Patient reports feeling anxious and depressed ; patient stated, I'm having suicidal thoughts. Voices are telling me to kill myself. I'm a very nervous roberta. I was taking my meds. But I went back to the same routine. I need something or people to visit me to occupy my time . Patient reports auditory hallucinations of voices telling him to kill himself. He reports visual hallucinations of shadows. denies HI. He reports suicidal ideation with no plan. Plan: CV 15 minute safety checks Continue home medications Referral to a day program ? [facility] Encourage groups Discharge planning Active on unit. Pt continues to report feeling anxious and depressed ; pt stated, nothing has changed. I still feel suicidal because I've had enough of stress . Pt reports suicidal ideation with no plan. He reports auditory hallucinations that have quieted down ; denies HI/VH. Per nursing, slept 8 hours last night. discussed starting on abilify; risks/benefits reviewed. Start: Abilify 5mg PO daily decrease haldol to 5mg PO bedtime Active on unit. Pt continues to report feeling depressed ; Pt reports suicidal ideation with no plan. States he wants to go to because he feels safer there; pt unable to elaborate more on this. denies HI/VH. reports auditory hallucinations telling him to harm himself. continue current tx plan c/o CAH to self harm, SI with plan to stab nheck or OD. c/o overwhelming anxiety when at home. start hydroxyzine 25 BID @ 0900,1700. Flu +; moved to single room. Pt reports feeling anxious and depressed ; pt stated, I'm having voices telling me to end it. I'm having suicidal thoughts . Pt reports if he were to be discharged he would come right back because I've been alone for so long . Pt states the primary reason for his suicidal thoughts is d/t feeling lonely . Encouraged to attend [facility]. Haldol increased to 10mg PO bedtime unable to remain in isolation. asking for cough medicine - guaifenesin Rxed. continue current mgmt. Patient discharged home today with VNA services. Pt reports feeling good and plans on following up with his outpatient providers. He reports auditory hallucinations that are quieter . denies SI/HI/VH. Status at Discharge Cognitive/behavioral status at discharge: Patient has insight and demonstrates good judgment in terms of wanting to pursue treatment. Patient has a safety plan that includes presenting to the closest ER or calling 911 if feeling unsafe. Functional status at discharge: independent ambulation Overall status at discharge: patient is back to baseline Time Spent with Patient Time attestation: Total time managing care of this patient today _20___ minutes. Time spent: Less than 30 minutes Discharge Plan Discharge Anticipated Discharge Date/Time: 06/16/24 10:30 Patient Disposition: Home, Self-Care Discharge Diagnosis: MDD, CATIE Referrals: [facility] [Other] - 1 Week (Referral was made for [facility]. Follow up with [facility] for daily structure and community. ) Bon Arvizu MD [Primary Care Provider] - 06/23/24 1:00 pm (06-14-24 Your primary care provider has been notified of your discharge date. They will contact us back with the date and time. Please obtain their fax tn UPDATE Your follow up appt has been scheduled on 06-23-24 @ 1pm) Discharge Medications: New aripiprazole [Abilify] 5 mg Tablet 5 mg PO DAILY 30 Days Qty: 30 0RF benztropine 0.5 mg Tablet 0.5 mg PO BID 30 Days Qty: 60 0RF haloperidol 10 mg tablet 10 mg PO BEDTIME 30 Days Qty: 30 0RF hydroxyzine HCl 25 mg Tablet 25 mg PO BID@0900,1700 30 Days Qty: 60 0RF Continued cholecalciferol (vitamin D3) 50 mcg (2,000 unit) capsule 50 mcg PO DAILY 90 Days Qty: 90 3RF metformin 1,000 mg tablet 1,000 mg PO BID 90 Days Qty: 180 1RF atenolol 25 mg tablet 25 mg PO DAILY Qty: 90 8RF ferrous sulfate 325 mg (65 mg iron) tablet 325 mg PO DAILY Qty: 90 1RF atorvastatin 40 mg tablet 40 mg PO DAILY 90 Days Qty: 90 1RF omeprazole 40 mg capsule,delayed release(DR/EC) 40 mg PO DAILY 90 Days Qty: 90 1RF bupropion HCl 150 mg tablet extended release 24 hr 150 mg PO QAM 30 Days Qty: 30 1RF albuterol sulfate [Ventolin HFA] 90 mcg/actuation HFA aerosol inhaler 2 puff PO Q4H PRN (Reason: for wheezing) Qty: 18 3RF trazodone 50 mg tablet 50 mg PO BEDTIME PRN (Reason: sleep) Qty: 90 0RF tamsulosin 0.4 mg capsule 0.4 mg PO BEDTIME 30 Days Qty: 90 1RF meclizine 25 mg tablet 25 mg PO TID PRN (Reason: dizziness) Qty: 20 0RF insulin glargine-yfgn 100 unit/mL (3 mL) insulin pen 20 unit subcut DAILY betamethasone, augmented 0.05 % Cream 1 appl topical BID Qty: 15 0RF Protocol: Apply to: Apply to: chest wall melatonin 3 mg Tablet 6 mg PO BEDTIME Qty: 30 0RF docusate sodium 100 mg Capsule 100 mg PO BEDTIME Qty: 30 0RF Dermacerin Cream 1 appl topical TID Qty: 15 0RF Protocol: Apply to: Apply to: affected areas thiamine mononitrate (vit B1) 100 mg Tablet 100 mg PO BID Qty: 60 0RF Act Dry Mouth Gum 1 piece of gum PO TID PRN (Reason: Moisturizing Gum) Discontinued escitalopram oxalate 20 mg tablet 20 mg PO QAM Qty: 90 1RF haloperidol 1 mg Tablet 2 mg PO BEDTIME Qty: 30 0RF haloperidol 1 mg Tablet 1 mg PO DAILY Qty: 30 0RF Discharge Orders: Discharge Order (Routine); Ordered 06/16/24 Ordered By: Vicky Hicks Diet: Regular diet Activity on Discharge: As tolerated Stand Alone Forms: Patient Portal Discharge page, Community Support Print Language: Kazakh Care Plan Goals: Maintain mood and safe behaviors Take medications as prescribed Practice coping skills Continue with outpatient providers and reach out to them as needed Health Concerns: Mood stability and behaviors Plan of Treatment: Follow up with your PCP, psychiatric provider and other outpatient providers regarding above concerns Take medications as prescribed Assessment: Patient has insight and demonstrates good judgment in terms of wanting to pursue treatment. Patient has a safety plan that includes presenting to the closest ER or calling 911 if feeling unsafe. Discharge Date/Time: 06/16/24 10:30
[2024-06-16] MEDS: guaiFENesin 100 MG/5 ML 5 ML LIQUID PO (10:15)
== END 2024-06-16 10:30 | disposition home or self-care (01) | DRG 751 ==
LOC: HO.ED 06-10 00:18 → HO.PADLT16 06-10 14:06
PROVIDERS: Admitting Provider Registered Nurse; Emergency Provider Emergency Medicine; PCP Internal Medicine; Responsible Provider Registered Nurse; Visit Provider Psychiatry & Neurology Psychiatry
DX: F33.9 Major depressive disorder, recurrent, unspecified (principal); R45.851 Suicidal ideations; F41.1 Generalized anxiety disorder; J11.1 Influenza due to unidentified influenza virus with other respiratory manifestations; E78.5 Hyperlipidemia, unspecified; Z79.84 Long term (current) use of oral hypoglycemic drugs; Z79.899 Other long term (current) drug therapy
CPT/HCPCS: 0241U; 36415; 71045; 80053; 80061; 80143; 80179; 80307; 81001; 82947; 84484; 85025; 93005; 99285; S9485

== ENCOUNTER → 2024-06-09 14:53 | Outpatient (BNV) | payer OTHER, SELFPAY | PROVIDERS: Emergency Provider Emergency Medicine; PCP Internal Medicine; Visit Provider Internal Medicine | DX: R07.9 Chest pain, unspecified (principal) | CPT/HCPCS: 93010 ==

== ENCOUNTER → 2024-06-09 15:41 | Outpatient (BNV) | payer OTHER, SELFPAY | PROVIDERS: Emergency Provider Emergency Medicine; PCP Internal Medicine; Visit Provider Social Worker | DX: F33.2 Major depressive disorder, recurrent severe without psychotic features (principal); F41.1 Generalized anxiety disorder | CPT/HCPCS: 90792; 99231; 99232; 99238 ==

== ENCOUNTER → 2024-06-09 17:20 | Outpatient (BNV) | payer OTHER, SELFPAY | PROVIDERS: PCP Internal Medicine; Visit Provider Radiology Diagnostic Radiology | DX: R07.9 Chest pain, unspecified (principal) | CPT/HCPCS: 71045 ==

== ENCOUNTER 2024-06-16 13:19 | Emergency (ER) | payer OTHER, SELFPAY ==
--- NOTE | ~2024-06-16 | MR_ITS ---
CLINICAL HISTORY: Right sided weakness Pt had a hard time holding still, uncontrollable coughs and l egs twitching, unable to repeat. Best exam obtained MR Brain with and without gadolinium Comparison: CT/AZ/SR - CT HEAD/BRAIN WO IV CON - 06/16/24 14:11 EST Findings: No restricted diffusion. No intracranial mass or hemorrhage. No midline shift. No hydrocephalus. Vascular flow voids are intact. Orbital contents are unremarkable. The sinuses and mastoid air cells are clear. No focal bone lesion. IMPRESSION: No acute findings. This document has been electronically signed by: Greyson Minor MD on 06/16/2024 18:12:46
--- NOTE | ~2024-06-16 | CT_ITS ---
EXAMINATION: CT HEAD WITHOUT CONTRAST CLINICAL INFORMATION: RIght sided weaknes for one week COMPARISON: May 02, 2024. TECHNIQUE: Contiguous axial imaging was performed from the skull base to vertex without intravenous administration of contrast. This CT examination was performed using dose optimization techniques as appropriate, variously including the following: *Automated exposure control *Adjustment of mA and/or kV according to patient size (this includes techniques or standardized protocols for targeted exams where dose is matched to indication/reason for exam; i.e. extremities or head) *Use of iterative reconstruction technique DLP: 701 mGy-cm FINDINGS: Bony calvarium is intact. Skull base is intact. No acute intracranial hemorrhage, mass effect, midline shift, hydrocephalus or herniation. Questionable at deep periventricular white matter hypodensities. Punctate calcification left cerebellar white matter. Weems-white matter differentiation is normal. Sellar/suprasellar region demonstrated no gross masses or hemorrhage. Craniocervical junction is intact. Small focal fat density in the midline of the forehead likely lipoma. No air-fluid levels in the included paranasal sinuses. Mucosal thickening in the ethmoid air cells and maxillary sinuses. For pneumatization of the frontal sinuses. Tympanic cavity cavities are aerated. Poor pneumatization of the mastoid air cells. Degenerative changes in the temporomandibular joints. CT/CT head/brain wo IV con IMPRESSION: No acute intracranial hemorrhage or acute brain abnormality by CT. If patient's symptoms persist recommend IV contrast enhanced MRI brain. Demyelinating processes versus acute stroke/nonhemorrhagic ischemia cannot be excluded among other etiologies. Electronically signed by: Aoy Oconnor MD 06/16/2024 02:34 PM EST
[2024-06-16 13:25] VITALS: BP 128/70; PULSE 65; O2SAT 95
[2024-06-16 13:31] VITALS: BP 122/59; PULSE 88; RESP 16; TEMP 36.8; O2SAT 96; BMI 37.4
--- NOTE | 2024-06-16 13:36 | PC.NURSE ---
credit union manager aware that pt. is self-reporting SI
[2024-06-16 13:37] VITALS: BP 122/59; PULSE 88; RESP 16; TEMP 36.8; O2SAT 96
--- NOTE | 2024-06-16 13:42 | ED_ITS ---
HPI - Neuro Symptoms/Deficit General Chief Complaint: Neuro Symptoms/Deficit Stated Complaint: WEAKNESS/NUMBNESS RT SIDED X 2 DAYS PER EMS Time Seen by Provider: 06/16/24 13:34 Source: patient Mode of arrival: ambulatory Limitations: no limitations History of Present Illness ED Provider: Francisco Fitzgerald HPI Narrative: 53-year-old male history of anxiety, major depressive disorder, psychosis, vertigo, COVID-19, chronic kidney disease, obesity, hypertension, high cholesterol, and GERD presents to ED for 1 week of right arm/right leg weakness. Patient denies slurred speech, facial droop, paralysis of extremities. Patient denies any loss of vision. Patient has secondary complaint is his suicidal, but would not state plan Related Data Home Medications ?Medication ?Instructions ?Recorded ?Confirmed atenolol 25 mg tablet 25 mg PO DAILY 06/17/24 06/17/24 bupropion HCl 150 mg 24 hr tablet, 150 mg PO DAILY 06/17/24 06/17/24 extended release ferrous sulfate 325 mg (65 mg 325 mg PO DAILY 06/17/24 06/17/24 iron) tablet haloperidol 10 mg tablet 10 mg PO BEDTIME 06/17/24 06/17/24 insulin glargine-yfgn 100 unit/mL 20 unit subcut QPM 06/17/24 06/17/24 (3 mL) subcutaneous pen melatonin 3 mg tablet 6 mg PO BEDTIME 06/17/24 06/17/24 omeprazole 40 mg capsule,delayed 40 mg PO DAILY 06/17/24 06/17/24 release tamsulosin 0.4 mg capsule 0.4 mg PO BEDTIME 06/17/24 06/17/24 thiamine HCl (vitamin B1) 100 mg 100 mg PO BID 06/17/24 06/17/24 tablet trazodone 50 mg tablet 50 mg PO BEDTIME PRN insomnia 06/17/24 06/17/24 Previous Rx's ?Medication ?Instructions ?Recorded cholecalciferol (vitamin D3) 50 50 mcg PO DAILY 90 days #90 caps 10/06/23 mcg (2,000 unit) capsule metformin 1,000 mg tablet 1,000 mg PO BID 90 days #180 tabs 01/20/24 atorvastatin 40 mg tablet 40 mg PO DAILY 90 days #90 tabs 03/26/24 Ventolin HFA 90 mcg/actuation 2 puff PO Q4H PRN for wheezing #18 11/19/24 aerosol inhaler (albuterol sulfate) ea meclizine 25 mg tablet 25 mg PO TID PRN dizziness #20 tabs 05/02/24 betamethasone, augmented 0.05 % 1 appl topical BID #15 grams 06/02/24 topical cream docusate sodium 100 mg capsule 100 mg PO BEDTIME #30 caps 06/02/24 white petrolatum-mineral oil 1 appl topical TID #15 grams 06/02/24 topical cream (Dermacerin topical cream) aripiprazole 5 mg tablet (Abilify) 5 mg PO DAILY 30 days #30 tabs 06/16/24 benztropine 0.5 mg tablet 0.5 mg PO BID 30 days #60 tabs 06/16/24 hydroxyzine HCl 25 mg tablet 25 mg PO BID@0900,1700 30 days #60 06/16/24 tabs Allergies Allergy/AdvReac Type Severity Reaction Status Date / Time pollen extracts [POLLEN] Allergy Mild RUNNY NOSE Verified 06/16/24 13:34 cat dander [CATS] Allergy Unknown UNKNOWN Verified 06/16/24 13:34 dog dander [DOGS] Allergy Unknown UNKNOWN Verified 06/16/24 13:34 mold [MOLD] Allergy Unknown UNKNOWN Verified 06/16/24 13:34 Review of Systems 2 Review of Systems: Right arm right leg weakness. Suicidal Yes all other systems are reviewed and are negative [facility] Past Medical History Medical History Recurrent major depression Allergic rhinitis Insomnia Palpitations Vitamin D deficiency Chronic kidney disease, stage III (moderate) GERD without esophagitis Restrictive lung disease Obesity (BMI 30-39.9) Benign essential hypertension Pure hypercholesterolemia Diabetes mellitus Pulmonary emboli Chondrosarcoma Hyperlipidemia Chronic restrictive lung disease COPD (chronic obstructive pulmonary disease) Asthma Surgical History History of esophagogastroduodenoscopy (EGD) H/O colonoscopy History of inguinal hernia repair Hx of exploratory thoracotomy H/O tooth extraction Family History Family History Father Hypertension Kidney failure, acute Mother Lung cancer Family/Other Diabetes Social History Social History Household Members: None Housing: Apartment Do you presently have visiting nurse or other home services: No Alcohol intake: never Patient Tobacco Use Status: Never used Tobacco e-Cigarette/Vaping Use: Never Used Second Hand Smoke Exposure: Yes service: No Current occupational status: unemployed Sexual orientation: Straight/Heterosexual Cognitive needs: No Hearing needs: No Vision needs: Yes (Glasses) Physical Exam 2 Vital Signs: Vital Signs: Last Vital Signs Temp 98.1 F 06/17/24 15:32 Pulse 85 06/17/24 15:32 Resp 20 06/17/24 15:32 BP 143/66 H 06/17/24 15:32 Pulse Ox 93 06/17/24 15:32 O2 Del Method Room Air 06/17/24 15:32 BMI result Body Mass Index 37.4 Const: General: cooperative, healthy appearing, comfortable, no acute distress, well developed, alert and awake HEENT: Head: Yes normal to inspection, Yes No palpable skull fracture present, Yes normocephalic and Yes atraumatic Eyes: General: appearance normal, both eyes and all related structures Neck: Neck: Yes normal visual inspection, Yes full ROM, Yes no lymphadenopathy, Yes no meningeal signs, Yes trachea midline, Yes supple, No anterior neck swelling and No tender Chest: Chest palpation & inspection: normal inspection of the chest and normal palpation of entire chest wall Resp: Effort & Inspection: normal respiratory effort and able to speak in complete sentences Auscultation: clear to auscultation bilaterally Cardio: Jugular venous distension: no JVD Heart sounds: S1 normal heart sound present and S2 normal heart sound present GI: Inspection: Yes normal to inspection Palpation (GI): Soft to palpation, not firm, nontender, no guarding and not rigid : General: Yes no CVA tenderness Back/Spine/Pelvis: Back: no CVA tenderness and No back tenderness Skin: General skin exam: no rashes or lesions noted, elasticity normal and turgor normal Neuro: Other: Negative pronator drift. Negative slurred speech. Left upper and left lower extremity strength 5+. Right upper extremity and right lower extremity strength 3+. Negative facial droop. Negative rhomberg. finger to nose and rapid hand movement intact. General: no meningeal signs Extrem: General: Yes normal to inspection, Yes full ROM and Yes capillary refill normal Psych: Appearance: grossly normal, well kempt and not disheveled Medications Administered Discontinued Medications Generic Name Dose Route Start Last Admin Trade Name Freq PRN Reason Stop Dose Admin Albuterol Sulfate 2 puff 06/17/24 02:55 06/17/24 08:02 Albuterol Sulfate 90 Mcg 8 Gm Inhaler INHALE 2 puff RQ4H PRN Administration Wheezing Aripiprazole 5 mg 06/17/24 09:00 06/17/24 09:53 Aripiprazole 5 Mg Tablet PO 5 mg DAILY DANIEL Administration Atenolol 25 mg 06/17/24 09:00 06/17/24 09:53 Atenolol 25 Mg Tablet PO 25 mg DAILY DANIEL Administration Protocol Atorvastatin Calcium 40 mg 06/17/24 09:00 06/17/24 10:18 Atorvastatin Calcium 40 Mg Tablet PO 40 mg DAILY DANIEL Administration Benztropine Mesylate 0.5 mg 06/17/24 09:00 06/17/24 09:53 Benztropine Mesylate 0.5 Mg Tablet PO 0.5 mg BID DANIEL Administration Betamethasone Dipropion Augmented 1 appl 06/17/24 09:00 06/17/24 10:18 Betamethasone Dip Aug 0.05% Cr 15 Gm Tube TOPICAL 1 appl BID DANIEL Administration Protocol Bupropion HCl 150 mg 06/17/24 09:00 06/17/24 09:53 Bupropion Hcl Xl 150 Mg Tab.Er.24h PO 150 mg DAILY DANIEL Administration Ferrous Sulfate 324 mg 06/17/24 09:00 06/17/24 09:54 Ferrous Sulfate 324 Mg Tablet. PO 324 mg DAILY DANIEL Administration Gadobutrol 10 ml 06/16/24 17:32 06/16/24 17:36 Gadobutrol 10 Ml Vial IVPUSH 06/16/24 17:33 10 ml ONCE ONE Administration Guaifenesin/Dextromethorphan 5 ml 06/16/24 20:55 06/16/24 21:23 Guaifenesin Dm 100/10/5 Ml 5 Ml Syrup PO 06/16/24 20:56 5 ml ONCE ONE Administration Hydroxyzine HCl 25 mg 06/17/24 09:00 06/17/24 09:53 Hydroxyzine Hcl 25 Mg Tablet PO 25 mg BID@0900,1700 DANIEL Administration Sodium Chloride 1,000 mls @ 999 mls/hr 06/16/24 18:49 06/16/24 23:22 Ns IV 06/16/24 19:49 Infused .Q1H1M STA Infusion Lorazepam 2 mg 06/16/24 15:33 06/16/24 16:36 Lorazepam 2 Mg/Ml Vial IVPUSH 06/16/24 15:34 2 mg ONCE ONE Administration Metformin HCl 1,000 mg 06/17/24 09:00 06/17/24 10:19 Metformin Hcl 1,000 Mg Tablet PO 1,000 mg BID DANIEL Administration Multi-Ingred Cream/Lotion/Oil/Oint 1 appl 06/17/24 09:00 06/17/24 09:51 Mineral Oil/Petrolatum,White 106 Gm Tube TOPICAL Not Given TID [facility] Protocol Thiamine HCl 100 mg 06/17/24 09:00 06/17/24 09:53 Thiamine Hcl 100 Mg Tablet PO 100 mg BID DANIEL Administration Vitamin D 50 mcg 06/17/24 09:00 06/17/24 09:53 Cholecalciferol (Vitamin D3) 25 Mcg Tablet PO 50 mcg DAILY DANIEL Administration Medical Decision Making Medical Decision Making MDM Narrative: 53-year-old male presents to ED for right upper right lower extremity weakness for 1 week and also suicidal ideation. Patient has out the window for any intervention if there is a stroke. Out the window for TKNA No need for CTA of head and neck due to patient having symptoms for 1 week. No need for MRI due to patient having symptoms for 1 week. We will do dry head CT scan. We will do basic labs. Care team consult placed. Not suspecting [facility]. 3:28pm: Patient's CT scan negative for stroke but recommends MRI to rule out any demyelinating diseases versus stroke. Dr. Morrison evaluate patient agree most likely patient is not having a stroke but due to a demyelinating disease on CT scan report maybe having some MS so he would recommend getting the MRI done. 9:54pm: MRI is normal. patient is medically cleared. Patient awaiting psych and care team consult. 06/17/2024 Dr. Larry Stern's notes 07:05 Start physician observation 53-year-old male who presents emergency department for evaluation of suicidal ideation. Patient was been in the emergency department for proximally 17 hours. The patient was discharged yesterday from our psychiatric service and return to the emergency department with suicidal ideation. Patient has influenza test was positive for influenza A. Patient was evaluated by care team and they are risk requesting a psychiatric consult to determine if this patient requires readmission for further treatment or can be managed as an outpatient. Patient does have diabetes and his point of care glucose was 74 and 94 overnight. Patient was medications were reconciled and I did order these medications.Patient will remain in the emergency department Behavioral Health Unit until disposition can be determined or until patient's symptoms improve over time. 14:38 End physician observation on 06/17/2024 at 15:06 hours 53-year-old male who presents emergency department for suicidal ideation, released yesterday from our psychiatric service in returned for re-evaluation. Patient was seen by our psychiatric nurse practitioner, Nessa Mcadams who felt that the patient does not need to be rehospitalized at this time and that the patient can be discharged with a his previous discharge instructions. I did talk to the patient. Patient states that he feels very frustrated. He did tell me that he continues to think about hurting himself but he was willing to try to go home at this point. Observation care revealed the the patient does not meet medical necessity for hospitalization. Exam at time of disposition revealed the patient was awake, alert , oriented to person place, was not in any distress. ? Final disposition discussed with the patient and he gave verbalized understanding of the discharge plan . Patient was started observation here on 06/17/2024 at 07:05 hours Patient completed observation care on 06/17/2024 at 15:06 hours Total time spent in observation care was 8 hours and 1 minutes. Differential Diagnosis Differential Diagnoses: The differential diagnosis associated with the presentation includes Admission/Observation Consideration of admission/observation: Escalation of care including admission/observation considered (Depression, SI) Lab Data MDM Lab Attestation statement: I reviewed the patient's lab results. 06/16/24 13:51 06/16/24 13:51 Labs: Lab Results 06/16/24 06/16/24 06/16/24 Range/Units 13:51 15:26 21:30 WBC 4.3 L (4.8-10.8) X10*3/uL RBC 4.63 (4.60-5.80) X10*6/uL Hgb 13.7 L (14.0-18.0) g/dl Hct 41.4 L (42.0-52.0) % MCV 89.4 (80.0-98.0) fL MCH 29.6 (27.0-33.0) pg MCHC 33.1 (31.0-36.0) g/dl RDW 15.5 (11.0-16.0) % Plt Count 127 L D (160-400) X10*3/uL MPV 11.0 (9.4-12.4) fL Immature Gran % (Auto) 0.2 (0.0-0.4) % Neut % (Auto) 66.8 (45-73) % Lymph % (Auto) 13.3 L (20-40) % [place] % (Auto) 17.3 H (2-11) % Eos % (Auto) 1.9 (0-4) % Baso % (Auto) 0.5 (0-2) % Lymph # (Auto) 0.6 L (1.2-4.9) X10*3/uL [place] # (Auto) 0.7 (0.1-1.2) X10*3/uL Eos # (Auto) 0.1 (0.0-0.4) X10*3/uL Baso # (Auto) 0.0 (0.0-0.2) X10*3/uL Abs Immat Gran (auto) 0.01 (0.00-0.03) X10*3/uL Absolute Neuts (auto) 2.9 (2.0-8.3) x10*3/uL Absolute Nucleated RBC 0.000 (0.0-0.012) X10*3/uL Nucleated RBC % (auto) 0.0 (0.0-0.2) /100WBC Sodium 137 (135-145) mmol/L Potassium 3.6 D (3.3-5.1) mmol/L Chloride 104 (96-108) mmol/L Carbon Dioxide 23 (22-29) mmol/L Anion Gap 14 (12-20) BUN 30 H (9-16) mg/dL Creatinine 1.81 H (0.5-1.4) mg/dL Estim Creat Clear Calc 57.1 Estimated GFR 39 POC Glucose (60-115) mg/dL Random Glucose 101 (60-115) mg/dL Calcium 9.6 (8.4-10.2) mg/dL Magnesium 1.7 (1.6-2.6) mg/dL Total Bilirubin 0.4 (0.0-1.0) mg/dL AST 28 (5-37) U/L ALT 16 (0-40) U/L Alkaline Phosphatase 73 (39-117) U/L Total Creatine Kinase 210 H (38-174) U/L Total Protein 7.4 (6.5-8.0) g/dL Albumin 3.8 (3.5-5.0) g/dL Urine Color Yellow Urine Appearance Cloudy Urine pH 5.5 (5.0-9.0) Ur Specific [place] 1.015 (1.005-1.025) Urine Protein 30 (1+) H (Neg-Trace) mg/dL Urine Glucose (UA) Negative (Negative) mg/dL Urine Ketones Negative (Negative) mg/dL Urine Blood Large (3+) H (Negative) Urine Nitrite Negative (Negative) Ur Leukocyte Esterase Negative (Negative) Urine RBC >20 H (0-2) /HPF Urine WBC 0-5 (0-5) /HPF Ur Squamous Epith Cells 0-2 (0-2) /HPF Urine Bacteria None Seen (None Seen) Hyaline Casts 11-20 (0-2) /LPF Granular Casts Present Urine Opiates Screen Not Detected (Not Detect) Ur Buprenorphine Scrn Not Detected (Not Detect) ng/mL Ur Oxycodone Screen Not Detected (Not Detect) ng/mL Urine Methadone Screen Not Detected (Not Detect) ng/mL Urine Fentanyl Screen Not Detected (Not Detect) Ur Barbiturates Screen Not Detected (Not Detect) Ur Phencyclidine Scrn Not Detected (Not Detect) Ur Amphetamines Screen Not Detected (Not Detect) U Benzodiazepines Scrn Not Detected (Not Detect) Urine Cocaine Screen Not Detected (Not Detect) U Marijuana (THC) Screen Not Detected (Not Detect) Ethyl Alcohol < 10 mg/dL Influenza Type A (PCR) POSITIVE A (Negative) Influenza Type B (PCR) NEGATIVE (Negative) RSV RNA Qual (PCR) NEGATIVE (Negative) SARS-CoV-2 RNA (RT-PCR) NEGATIVE (Negative) 06/17/24 06/17/24 Range/Units 02:57 06:12 WBC (4.8-10.8) X10*3/uL RBC (4.60-5.80) X10*6/uL Hgb (14.0-18.0) g/dl Hct (42.0-52.0) % MCV (80.0-98.0) fL MCH (27.0-33.0) pg MCHC (31.0-36.0) g/dl RDW (11.0-16.0) % Plt Count (160-400) X10*3/uL MPV (9.4-12.4) fL Immature Gran % (Auto) (0.0-0.4) % Neut % (Auto) (45-73) % Lymph % (Auto) (20-40) % [place] % (Auto) (2-11) % Eos % (Auto) (0-4) % Baso % (Auto) (0-2) % Lymph # (Auto) (1.2-4.9) X10*3/uL [place] # (Auto) (0.1-1.2) X10*3/uL Eos # (Auto) (0.0-0.4) X10*3/uL Baso # (Auto) (0.0-0.2) X10*3/uL Abs Immat Gran (auto) (0.00-0.03) X10*3/uL Absolute Neuts (auto) (2.0-8.3) x10*3/uL Absolute Nucleated RBC (0.0-0.012) X10*3/uL Nucleated RBC % (auto) (0.0-0.2) /100WBC Sodium (135-145) mmol/L Potassium (3.3-5.1) mmol/L Chloride (96-108) mmol/L Carbon Dioxide (22-29) mmol/L Anion Gap (12-20) BUN (9-16) mg/dL Creatinine (0.5-1.4) mg/dL Estim Creat Clear Calc Estimated GFR POC Glucose 74 97 (60-115) mg/dL Random Glucose (60-115) mg/dL Calcium (8.4-10.2) mg/dL Magnesium (1.6-2.6) mg/dL Total Bilirubin (0.0-1.0) mg/dL AST (5-37) U/L ALT (0-40) U/L Alkaline Phosphatase (39-117) U/L Total Creatine Kinase (38-174) U/L Total Protein (6.5-8.0) g/dL Albumin (3.5-5.0) g/dL Urine Color Urine Appearance Urine pH (5.0-9.0) Ur Specific [place] (1.005-1.025) Urine Protein (Neg-Trace) mg/dL Urine Glucose (UA) (Negative) mg/dL Urine Ketones (Negative) mg/dL Urine Blood (Negative) Urine Nitrite (Negative) Ur Leukocyte Esterase (Negative) Urine RBC (0-2) /HPF Urine WBC (0-5) /HPF Ur Squamous Epith Cells (0-2) /HPF Urine Bacteria (None Seen) Hyaline Casts (0-2) /LPF Granular Casts Urine Opiates Screen (Not Detect) Ur Buprenorphine Scrn (Not Detect) ng/mL Ur Oxycodone Screen (Not Detect) ng/mL Urine Methadone Screen (Not Detect) ng/mL Urine Fentanyl Screen (Not Detect) Ur Barbiturates Screen (Not Detect) Ur Phencyclidine Scrn (Not Detect) Ur Amphetamines Screen (Not Detect) U Benzodiazepines Scrn (Not Detect) Urine Cocaine Screen (Not Detect) U Marijuana (THC) Screen (Not Detect) Ethyl Alcohol mg/dL Influenza Type A (PCR) (Negative) Influenza Type B (PCR) (Negative) RSV RNA Qual (PCR) (Negative) SARS-CoV-2 RNA (RT-PCR) (Negative) Independent Interpretation I performed an independent interpretation of an: CT Scan Radiology Impression Discussion of test interpretation with radiology: I have reviewed the radiologist's reading. Independent Historian Clinical information obtained from an independent historian. History obtained from or confirmed by: Other (patient) NIH Stroke Scale Internal: Initial- Upon Arrival Level of Consciousness: Alert Level of Consciousness Questions: Answers both questions correctly Level of Consciousness Commands: Performs both tasks correctly Best Gaze: Normal Visual: No visual loss Facial Palsy: Normal Motor Arm (Right): Some effort against gravity Motor Arm (Left): No drift Motor Leg (Right): Some effort against gravity Motor Leg (Left): No drift Limb Ataxia: Absent Sensory: Normal Best Language: No aphasia Dysarthia: Normal Extinction and Inattention: No abnormality Score: 4 Discharge Plan Discharge Clinical Impression: Depression Patient Disposition: Home, Self-Care Additional Instructions: You were seen by our care team and our nurse practitioner psychiatric nurse practitioner. Please follow their discharge instructions. Continue taking medications as prescribed by your providers You were seen in our Emergency Department today for treatment of a behavioral health issue. It is important after your visit that you follow up with either your behavioral health provider or a primary care doctor within 7 days.? If you have trouble finding a therapist you can reach out to [place] [phone] [facility] [place] [facility] can be reached 7 days a week 24 hours a day.? Call [phone] to speak with someone.? Return for any worsening symptoms or concerns such as thoughts of self harm or harm to others. Please call 911 if you feel your mental health is worsening.? Prescriptions: No Action cholecalciferol (vitamin D3) 50 mcg (2,000 unit) capsule 50 mcg PO DAILY 90 Days Qty: 90 3RF metformin 1,000 mg tablet 1,000 mg PO BID 90 Days Qty: 180 1RF atorvastatin 40 mg tablet 40 mg PO DAILY 90 Days Qty: 90 1RF albuterol sulfate [Ventolin HFA] 90 mcg/actuation HFA aerosol inhaler 2 puff PO Q4H PRN (Reason: for wheezing) Qty: 18 3RF meclizine 25 mg tablet 25 mg PO TID PRN (Reason: dizziness) Qty: 20 0RF betamethasone, augmented 0.05 % Cream 1 appl topical BID Qty: 15 0RF Protocol: Apply to: Apply to: chest wall docusate sodium 100 mg Capsule 100 mg PO BEDTIME Qty: 30 0RF Dermacerin Cream 1 appl topical TID Qty: 15 0RF Protocol: Apply to: Apply to: affected areas aripiprazole [Abilify] 5 mg Tablet 5 mg PO DAILY 30 Days Qty: 30 0RF benztropine 0.5 mg Tablet 0.5 mg PO BID 30 Days Qty: 60 0RF hydroxyzine HCl 25 mg Tablet 25 mg PO BID@0900,1700 30 Days Qty: 60 0RF thiamine HCl (vitamin B1) 100 mg tablet 100 mg PO BID melatonin 3 mg tablet 6 mg PO BEDTIME trazodone 50 mg tablet 50 mg PO BEDTIME PRN (Reason: insomnia) atenolol 25 mg tablet 25 mg PO DAILY tamsulosin 0.4 mg capsule 0.4 mg PO BEDTIME ferrous sulfate 325 mg (65 mg iron) tablet 325 mg PO DAILY omeprazole 40 mg capsule,delayed release(DR/EC) 40 mg PO DAILY haloperidol [Haldol] 10 mg Tablet 10 mg PO BEDTIME insulin glargine-yfgn 100 unit/mL (3 mL) insulin pen 20 unit subcut QPM bupropion HCl 150 mg tablet extended release 24 hr 150 mg PO DAILY Interventions: ED Discharge Assessment Last Done: 06/17/24 15:32 Discharge Date/Time: 06/17/24 15:33 Print Language: Wolof
--- OUTSIDE RECORDS SUMMARY | 2024-06-16 13:46 | XMS_ITS | Clinical Summary ---
Author Organization [facility] Address [address] [place] [address] Care Team Providers Care Commercial Art Instructor Name Role Phone Bon Arvizu MD Primary Care Provider [phone] Allergies No known active allergies Medications Ventolin [...] Visit [facility] [address] [place] [address] Tashi Bonner MD [id number] [facility] [address] [place] [id number] Health Maintenance Due Date Last Done Comments [...] Exam 09/25/2022 Influenza Vaccine (#1) [address] [place] [address] [place] [address] Care Teams Commercial Art Instructor Relationship Specialty Start Date End Date Bon Arvizu MD [address] [place] [address] PCP - General Internal Medicine 06/04/22
--- OUTSIDE RECORDS SUMMARY | 2024-06-16 13:46 | XMS_ITS | Encounter Summary ---
Author Organization [facility] Address [address] [place] [address] Care Team Providers Care Hydraulics Engineer Name Role Phone Unavailable Primary Care Provider Unavailabl e Encounter Details Date Type Department Care Team (Late st Contact Info) Description 12/23/2021 Scanned Document [address] [address] [place] [id number] Gastroenterology, Scan Social History Tobacco Use Types [...]
[2024-06-16 13:55] LABS: MANUAL DIFF FLAG NO
[2024-06-16 13:59] LABS: Basophils Percent Auto 0.5 % (0-2); Eosinophils Absolute Auto 0.1 X10*3/uL (0.0-0.4); Eosinophils Percent Auto 1.9 % (0-4); Hematocrit 41.4 % (42.0-52.0); Hemoglobin 13.7 g/dl (14.0-18.0); Imm Gran Abs Auto 0.01 X10*3/uL (0.00-0.03); Imm Gran Pct Auto 0.2 % (0.0-0.4); Lymphocytes Absolute Auto 0.6 X10*3/uL (1.2-4.9); Lymphocytes Percent Auto 13.3 % (20-40); Mean Corpuscular HGB Conc 33.1 g/dl (31.0-36.0); Mean Corpuscular Hemoglobin 29.6 pg (27.0-33.0); Mean Corpuscular Volume 89.4 fL (80.0-98.0); Monocytes Absolute Auto 0.7 X10*3/uL (0.1-1.2); Monocytes Percent Auto 17.3 % (2-11); Neutrophils Absolute Auto 2.9 x10*3/uL (2.0-8.3); Neutrophils Percent Auto 66.8 % (45-73); Red Blood Count 4.63 X10*6/uL (4.60-5.80); Red Cell Distribution Width 15.5 % (11.0-16.0); White Blood Count 4.3 X10*3/uL (4.8-10.8)
[2024-06-16 14:22] LABS: Platelet Count 127 X10*3/uL (160-400)
[2024-06-16 14:34] LABS: Alanine Aminotransferase 16 U/L (0-40); Albumin Level 3.8 g/dL (3.5-5.0); Alkaline Phosphatase 73 U/L (39-117); Anion Gap 14 (12-20); Aspartate Amino Transferase 28 U/L (5-37); Bilirubin Total 0.4 mg/dL (0.0-1.0); Blood Urea Nitrogen 30 mg/dL (9-16); Calcium 9.6 mg/dL (8.4-10.2); Carbon Dioxide 23 mmol/L (22-29); Chloride 104 mmol/L (96-108); Creatinine Clr Calc Pharmacy 57.1; Estimated Glomerular Filt Rate 39; Ethanol < 10 mg/dL; Glucose Random 101 mg/dL (60-115); Magnesium 1.7 mg/dL (1.6-2.6); Potassium 3.6 mmol/L (3.3-5.1); Sodium 137 mmol/L (135-145); Total Protein 7.4 g/dL (6.5-8.0)
[2024-06-16 15:35] LABS: Appearance Urine Cloudy; Color Urine Yellow; Glucose Urine UA Negative (Negative); Leukocyte Esterase Urine Negative (Negative); Nitrite Urine Negative (Negative); PH 5.5 (5.0-9.0); Specific Gravity - Urine 1.015 (1.005-1.025); UMIC TRIGGER UACC YES; Urine Blood Large (3+) (Negative); Urine Ketones Negative (Negative); Urine Protein 30 (1+) mg/dL (Neg-Trace)
[2024-06-16 15:45] LABS: Amphetamine Screen Urine Not Detected (Not Detect); Barbiturates, Urine Not Detected (Not Detect); Benzodiazepines Screen Urine Not Detected (Not Detect); Buprenorphine Scr Not Detected (Not Detect); Cannabinoid Screen Urine Not Detected (Not Detect); Cocaine Screen Urine Not Detected (Not Detect); Fentanyl, urine Not Detected (Not Detect); Methadone Screen, Urine Not Detected (Not Detect); Opiate Screen Urine Not Detected (Not Detect); Oxycodone Screen Urine Not Detected (Not Detect); Phencyclidine Screen Urine Not Detected (Not Detect)
[2024-06-16 15:51] LABS: Bacteria Urine None Seen (None Seen); Granular Casts Urine Present; RBC Urine >20 /HPF (0-2); Squamous Epithelial Cell Urine 0-2 /HPF (0-2); WBC Urine 0-5 /HPF (0-5)
[2024-06-16] MEDS: LORazepam 2 MG/ML VIAL IVPUSH (16:36)
[2024-06-16 16:49] VITALS: BP 127/70; PULSE 75; RESP 16; TEMP 36.8; O2SAT 95
[2024-06-16] MEDS: gadobutroL 10 ML VIAL IVPUSH (17:36)
--- NOTE | 2024-06-16 17:36 | PC.NURSE ---
Pt changed over by tech into safety clothing and belongings secured by tech. 1:1 sitter remains with pt. Pt has vague SI. Denies HI
[2024-06-16 19:18] VITALS: BP 119/65; PULSE 81; RESP 18; TEMP 36.5; O2SAT 94
[2024-06-16] MEDS: 0.9 % Sodium Chloride 1,000 ML 999 ML IV (20:00)
[2024-06-16] MEDS: guaiFENesin DM 100/10/5 ML 5 ML SYRUP PO (21:23)
--- NOTE | 2024-06-16 21:27 | PC.NURSE ---
pt requesting cough syrup for cough/cold. pt medicated per MAR
[2024-06-16 22:28] VITALS: BP 105/44; PULSE 76; RESP 16; TEMP 36.9; O2SAT 95
[2024-06-16 23:35] LABS: Influenza A PCR POSITIVE (Negative); Influenza B PCR NEGATIVE (Negative); Resp Syncy Virus RNA Qual PCR NEGATIVE (Negative); SARS COV2 PCR INHOUSE NEGATIVE (Negative)
--- NOTE | 2024-06-17 02:54 | MHC.EDTECH ---
Addendum entered by Sindy Butler 06/17/24 03:24: EDUARDO # [id number] Original Note: Patient's belongings moved from the [facility] to [facility]
[2024-06-17 03:01] LABS: Glucose, Whole Blood 74 mg/dL (60-115)
[2024-06-17] MEDS: Albuterol Sulfate 90 MCG 8 GM INHALER 2 PUFF INHALE ×2 (03:07→08:02)
--- NOTE | 2024-06-17 03:08 | PC.NURSE ---
IV removed prior to tranfer to POD, noticed audible wheezing, pt requested inhaler. MD aware. pt medicated per jul. POC taken, snacks given. pt ambulated indep. to POD
[2024-06-17 06:15] LABS: Glucose, Whole Blood 97 mg/dL (60-115)
--- NOTE | 2024-06-17 06:53 | PC.NURSE ---
Patient was up most part of the night, no distress observed/reported except shortness of breath, Ventolin administered with + effect, patient was assessed by care team disposition pending psych consult, med rec completed/pending provider's approval, 15 minutes for safety check, no behavior and safety concerns, will continue to monitor
[2024-06-17 07:52] VITALS: BP 143/66; PULSE 85; RESP 20; TEMP 36.7; O2SAT 93
--- NOTE | 2024-06-17 08:57 | MHC.EDTECH ---
Patients belongings moved from locker 8 to locker 3 in POD.
--- NOTE | 2024-06-17 09:21 | MHC.CARE ---
T/W attempted to contact patients brother Lucho for collateral, left message.
[2024-06-17] MEDS: hydrOXYzine HCL 25 MG TABLET PO (09:53)
[2024-06-17] MEDS: buPROPion HCl XL 150 MG TAB.ER.24H PO (09:53)
[2024-06-17] MEDS: atenoloL 25 MG TABLET PO (09:53)
[2024-06-17] MEDS: Benztropine Mesylate 0.5 MG TABLET PO (09:53)
[2024-06-17] MEDS: Thiamine HCL 100 MG TABLET PO (09:53)
[2024-06-17] MEDS: ARIPiprazole 5 MG TABLET PO (09:53)
[2024-06-17] MEDS: Cholecalciferol (Vitamin D3) 25 MCG TABLET 50 MCG PO (09:53)
[2024-06-17] MEDS: Ferrous Sulfate 324 MG TABLET.DR PO (09:54)
[2024-06-17] MEDS: Betamethasone Dip Aug 0.05% Cr 15 GM TUBE 1 APPL TOPICAL (10:18)
[2024-06-17] MEDS: Atorvastatin Calcium 40 MG TABLET PO (10:18)
[2024-06-17] MEDS: metFORMIN HCl 1,000 MG TABLET 1000 MG PO (10:19)
--- NOTE | 2024-06-17 10:19 | PC.NURSE ---
pt has a chronic appearing wound to his left lateral chest. it is red and there are some old appearing scabs to the area. two pink cushioned bandages were removed and reapplied. pt states that he fell right before kiersten .
--- NOTE | 2024-06-17 14:07 | PM.PSYCN ---
History of Present Illness Date of Service: 06/17/2024 Chief Complaint: WEAKNESS/NUMBNESS RT SIDED X 2 DAYS PER EMS Discussed with referring provider: Yes Sources of Information: patient interviewed, chart reviewed and crisis/core team assessment reviewed HPI Narrative: Mr. Joseph is a 53 year-old male who was recently discharged from on 06/16 and return to the ED reporting increased depression, psychosis and suicidality. He had another admission on [facility] 05/19-06/04/24 for same. 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 Pt had reported to this short story writer that he had reopen wound with attempt to stab himself. However, actual wound looks like he had scratched it but no signs new puncture wound. Care team attempted to reach his brother Lenard, who did not answer his phone. [facility] correspond even went to brother's house [place] but no one was there. Care team was able to reach another brother- Deric who reports he does not have contact with patient and unable to provide much hx about pt other than he had graduated from . Collateral information was collected also by reviewing medical records. He does go to appointments with PCP, pulmonology regularly for years. In their notes, no notable signs of psychosis was noted. No documented history of self harm or suicide attempt. He had been on wellbutrin and lexapro. No prior hx of antipsychotic use up until he was admitted to and was reporting hearing voices. Pt reports he continues to feel depressed. He does not report plan or intent to harm himself. Although later at times of discharge, did report to ED attending that he was going to stab himself. Although he asks that he is readmitted to inpatient unit, this short story writer explained that he needs to connect with OP psych providers and other resources that were set in place while he was on the unit. He was referred to [facility] worker. He was also made 3 day follow up. Past Psychiatric History: IP: hx of 2 prior inpatient psychiatric hospitalizations denies hx of SA/SIB OP: PCP prescribes-Dr. Arvizu Trials: Lexapro, Wellbutrin, seroquel and haldol [facility] Medical History Recurrent major depression Allergic rhinitis Insomnia Palpitations Vitamin D deficiency Chronic kidney disease, stage III (moderate) GERD without esophagitis Restrictive lung disease Obesity (BMI 30-39.9) Benign essential hypertension Pure hypercholesterolemia Diabetes mellitus Pulmonary emboli Chondrosarcoma Hyperlipidemia Chronic restrictive lung disease COPD (chronic obstructive pulmonary disease) Asthma Surgical History History of esophagogastroduodenoscopy (EGD) H/O colonoscopy History of inguinal hernia repair Hx of exploratory thoracotomy H/O tooth extraction Family History: denies Social History: [place] parents. Mother in 2000 and father in 2008 Has a twin brother and two older brothers High school graduate Never , no children Trauma History: medical- tumor L lung 2008. Diagnostics Vital Signs (24Hr): Vital Signs - 24 hr 06/16/24 16:49 06/16/24 19:18 06/16/24 22:28 Temperature 98.3 F 97.7 F 98.4 F Pulse Rate 75 81 76 Respiratory Rate 16 18 16 Blood Pressure 127/70 119/65 105/44 L Pulse Oximetry 95 94 95 Oxygen Delivery Method Room Air Room Air Room Air 06/17/24 07:52 Temperature 98.1 F Pulse Rate 85 Respiratory Rate 20 Blood Pressure 143/66 H Pulse Oximetry 93 Oxygen Delivery Method Room Air BMI result Body Mass Index 37.4 Labs 06/16/24 13:51 06/16/24 13:51 Labs: Laboratory Results - last 48 hr 06/16/24 06/16/24 06/16/24 13:51 15:26 21:30 WBC 4.3 L RBC 4.63 Hgb 13.7 L Hct 41.4 L MCV 89.4 MCH 29.6 MCHC 33.1 RDW 15.5 Plt Count 127 L D MPV 11.0 Immature Gran % (Auto) 0.2 Neut % (Auto) 66.8 Lymph % (Auto) 13.3 L [place] % (Auto) 17.3 H Eos % (Auto) 1.9 Baso % (Auto) 0.5 Lymph # (Auto) 0.6 L [place] # (Auto) 0.7 Eos # (Auto) 0.1 Baso # (Auto) 0.0 Abs Immat Gran (auto) 0.01 Absolute Neuts (auto) 2.9 Absolute Nucleated RBC 0.000 Nucleated RBC % (auto) 0.0 Sodium 137 Potassium 3.6 D Chloride 104 Carbon Dioxide 23 Anion Gap 14 BUN 30 H Creatinine 1.81 H Estim Creat Clear Calc 57.1 Estimated GFR 39 POC Glucose Random Glucose 101 Calcium 9.6 Magnesium 1.7 Total Bilirubin 0.4 AST 28 ALT 16 Alkaline Phosphatase 73 Total Creatine Kinase 210 H Total Protein 7.4 Albumin 3.8 Urine Color Yellow Urine Appearance Cloudy Urine pH 5.5 Ur Specific [place] 1.015 Urine Protein 30 (1+) H Urine Glucose (UA) Negative Urine Ketones Negative Urine Blood Large (3+) H Urine Nitrite Negative Ur Leukocyte Esterase Negative Urine RBC >20 H Urine WBC 0-5 Ur Squamous Epith Cells 0-2 Urine Bacteria None Seen Hyaline Casts 11-20 Granular Casts Present Urine Opiates Screen Not Detected Ur Buprenorphine Scrn Not Detected Ur Oxycodone Screen Not Detected Urine Methadone Screen Not Detected Urine Fentanyl Screen Not Detected Ur Barbiturates Screen Not Detected Ur Phencyclidine Scrn Not Detected Ur Amphetamines Screen Not Detected U Benzodiazepines Scrn Not Detected Urine Cocaine Screen Not Detected U Marijuana (THC) Screen Not Detected Ethyl Alcohol < 10 Influenza Type A (PCR) POSITIVE A Influenza Type B (PCR) NEGATIVE RSV RNA Qual (PCR) NEGATIVE SARS-CoV-2 RNA (RT-PCR) NEGATIVE 06/17/24 06/17/24 02:57 06:12 WBC RBC Hgb Hct MCV MCH MCHC RDW Plt Count MPV Immature Gran % (Auto) Neut % (Auto) Lymph % (Auto) [place] % (Auto) Eos % (Auto) Baso % (Auto) Lymph # (Auto) [place] # (Auto) Eos # (Auto) Baso # (Auto) Abs Immat Gran (auto) Absolute Neuts (auto) Absolute Nucleated RBC Nucleated RBC % (auto) Sodium Potassium Chloride Carbon Dioxide Anion Gap BUN Creatinine Estim Creat Clear Calc Estimated GFR POC Glucose 74 97 Random Glucose Calcium Magnesium Total Bilirubin AST ALT Alkaline Phosphatase Total Creatine Kinase Total Protein Albumin Urine Color Urine Appearance Urine pH Ur Specific [place] Urine Protein Urine Glucose (UA) Urine Ketones Urine Blood Urine Nitrite Ur Leukocyte Esterase Urine RBC Urine WBC Ur Squamous Epith Cells Urine Bacteria Hyaline Casts Granular Casts Urine Opiates Screen Ur Buprenorphine Scrn Ur Oxycodone Screen Urine Methadone Screen Urine Fentanyl Screen Ur Barbiturates Screen Ur Phencyclidine Scrn Ur Amphetamines Screen U Benzodiazepines Scrn Urine Cocaine Screen U Marijuana (THC) Screen Ethyl Alcohol Influenza Type A (PCR) Influenza Type B (PCR) RSV RNA Qual (PCR) SARS-CoV-2 RNA (RT-PCR) Imaging Radiology Impressions: ITS Impressions Head CT 06/16/24 14:11 IMPRESSION: No acute intracranial hemorrhage or acute brain abnormality by CT. If patient's symptoms persist recommend IV contrast enhanced MRI brain. Demyelinating processes versus acute stroke/nonhemorrhagic ischemia cannot be excluded among other etiologies. Electronically signed by: Ayo Oconnor MD 06/16/2024 02:34 PM EST Mental Status Exam Mental Status Exam Narrative: Appearance: wearing hospital gown, fair hygiene, calm and in NAD Behavior: cooperative Psychomotor: no agitation or retardation noted Speech: clear, normal rate/rhythm/volume, spontaneous TP: linear TC: feeling depressed Mood: depressed Affect: appears brighter than reported specially when interacting with others SI: reports intermittent thoughts, no intent HI: none VH/AH: no overt signs of underlying psychosis, despite his report Delusions: no overt delusional content Insight/judgment: poor x 2. memory/cog: alert, oriented x 3. does seem to have poor problem solving skills, low frustration tolerance and concrete thinking. Medications Medications Current Medications Albuterol Sulfate (Albuterol Sulfate 90 Mcg 8 Gm Inhaler) 2 puff INHALE RQ4H PRN PRN Reason: Wheezing Last Admin: 06/17/24 08:02 Dose: 2 puff Aripiprazole (Aripiprazole 5 Mg Tablet) 5 mg PO DAILY DANIEL Last Admin: 06/17/24 09:53 Dose: 5 mg Atenolol (Atenolol 25 Mg Tablet) 25 mg PO DAILY DANIEL; Protocol Last Admin: 06/17/24 09:53 Dose: 25 mg Atorvastatin Calcium (Atorvastatin Calcium 40 Mg Tablet) 40 mg PO DAILY DANIEL Last Admin: 06/17/24 10:18 Dose: 40 mg Benztropine Mesylate (Benztropine Mesylate 0.5 Mg Tablet) 0.5 mg PO BID DANIEL Last Admin: 06/17/24 09:53 Dose: 0.5 mg Betamethasone Dipropion Augmented (Betamethasone Dip Aug 0.05% Cr 15 Gm Tube) 1 appl TOPICAL BID DANIEL; Protocol Last Admin: 06/17/24 10:18 Dose: 1 appl Bupropion HCl (Bupropion Hcl Xl 150 Mg Tab.Er.24h) 150 mg PO DAILY [facility] Last Admin: 06/17/24 09:53 Dose: 150 mg Docusate Sodium (Docusate Sodium 100 Mg Capsule) 100 mg PO BEDTIME [facility] Ferrous Sulfate (Ferrous Sulfate 324 Mg Tablet.) 324 mg PO DAILY [facility] Last Admin: 06/17/24 09:54 Dose: 324 mg Guaifenesin (Guaifenesin 200 Mg/10 Ml 10 Ml Liquid) 10 ml PO Q4H PRN PRN Reason: cough Haloperidol (Haloperidol 5 Mg Tablet) 10 mg PO BEDTIME [facility] Hydroxyzine HCl (Hydroxyzine Hcl 25 Mg Tablet) 25 mg PO BID@0900,1700 [facility] Last Admin: 06/17/24 09:53 Dose: 25 mg Insulin Glargine (Insulin Glargine,Hum.Rec.Anlog 100 Unit/Ml 10 Ml Vial) 20 unit SUBCUT BEDTIME [facility] Meclizine HCl (Meclizine Hcl 25 Mg Tablet) 25 mg PO TID PRN PRN Reason: dizziness Melatonin (Melatonin 3 Mg Tablet) 6 mg PO BEDTIME [facility] Metformin HCl (Metformin Hcl 1,000 Mg Tablet) 1,000 mg PO BID [facility] Last Admin: 06/17/24 10:19 Dose: 1,000 mg Multi-Ingred Cream/Lotion/Oil/Oint (Mineral Oil/Petrolatum,White 106 Gm Tube) 1 appl TOPICAL TID [facility]; Protocol Last Admin: 06/17/24 09:51 Dose: Not Given Omeprazole (Omeprazole 40 Mg Capsule.) 40 mg PO DAILY@0630 [facility] Tamsulosin HCl (Tamsulosin Hcl 0.4 Mg Capsule) 0.4 mg PO BEDTIME [facility] Thiamine HCl (Thiamine Hcl 100 Mg Tablet) 100 mg PO BID [facility] Last Admin: 06/17/24 09:53 Dose: 100 mg Trazodone HCl (Trazodone Hcl 50 Mg Tablet) 50 mg PO BEDTIME PRN PRN Reason: insomnia Vitamin D (Cholecalciferol (Vitamin D3) 25 Mcg Tablet) 50 mcg PO DAILY [facility] Last Admin: 06/17/24 09:53 Dose: 50 mcg Allergies Allergies Allergy/AdvReac Type Severity Reaction Status Date / Time pollen extracts [POLLEN] Allergy Mild RUNNY NOSE Verified 06/16/24 13:34 cat dander [CATS] Allergy Unknown UNKNOWN Verified 06/16/24 13:34 dog dander [DOGS] Allergy Unknown UNKNOWN Verified 06/16/24 13:34 mold [MOLD] Allergy Unknown UNKNOWN Verified 06/16/24 13:34 Assessment & Plan Assessment & Plan (1) Mood disorder: Status: Acute Code(s): F39 - Unspecified mood [affective] disorder Plan Mr. Joseph is a 53 year-old male who was discharged from and went back to ED reporting increase depression, hearing voices and suicidal ideation. He has had two inpt admission, step down to respite and soon after discharge or the day off he self presents to ED. Very limited information is known about him. Care team did reach to one of his brother who reports he has no contact with him and could not provide much information other than he had completed HS. Extensive review of medical records- from his PCP, office clin asst who he sees regularly and often for years do no report s/s of psychosis, nor self harm hx. Last week he had reported to this short story writer that he had stabbed himself, however, he had a scar from 2008 after chondrosarcoma removal and picture of open wound does not show recent puncture injury but instead scratching. This short story writer explained to patient that he needs to connect with outpatient providers closely. He agreed. Total time managing care of this patient today ____ minutes.
--- NOTE | 2024-06-17 14:31 | MHC.CARE ---
Psychiatric consult completed by Nessa Parks NP. Plan for Pt to be discharged with follow up from [facility] discharge yesterday 06/16. Pt provided with a new copy of instruction. [facility] follow up completed as well.
--- NOTE | 2024-06-17 14:54 | MHC.CARE ---
Pt referred to community navigation at [facility].
[2024-06-17 15:32] VITALS: BP 143/66; PULSE 85; RESP 20; TEMP 36.7; O2SAT 93
== END 2024-06-17 15:33 | disposition home or self-care (01) ==
PROVIDERS: Emergency Medicine; Physician Assistant; Emergency Provider Emergency Medicine Emergency Medical Services; PCP Internal Medicine
DX: F33.1 Major depressive disorder, recurrent, moderate (principal); R53.1 Weakness; R29.704 NIHSS score 4; R11.0 Nausea; R06.02 Shortness of breath; Z51.81 Encounter for therapeutic drug level monitoring; Z79.899 Other long term (current) drug therapy; Z03.818 Encounter for observation for suspected exposure to other biological agents ruled out
CPT/HCPCS: 0241U; 36415; 70450; 70553; 80053; 80307; 81001; 82550; 82947; 83735; 85025; 96361; 96374; 96375; 99285; A9585; J2060; S9485

== ENCOUNTER → 2024-06-16 13:34 | Outpatient (BNV) | payer OTHER, SELFPAY | PROVIDERS: Emergency Provider Emergency Medicine; PCP Internal Medicine; Visit Provider Radiology Diagnostic Radiology | DX: R53.1 Weakness (principal) | CPT/HCPCS: 70450 ==

== ENCOUNTER → 2024-06-16 13:43 | Outpatient (BNV) | payer OTHER, SELFPAY | PROVIDERS: Emergency Provider Emergency Medicine Emergency Medical Services; PCP Internal Medicine; Visit Provider Social Worker | DX: F39 Unspecified mood [affective] disorder (principal) | CPT/HCPCS: 99285 ==

== ENCOUNTER 2024-06-19 18:11 | Emergency (ER) | payer OTHER, SELFPAY ==
--- NOTE | 2024-06-19 | ECG_ITS ---
Test Reason : CP Blood Pressure : */* mmHG Vent. Rate : 70 BPM Atrial Rate : * BPM P-R Int : * ms QRS Dur : 104 ms QT Int : 410 ms P-R-T Axes : * 194 179 degrees QTcB Int : 442 ms Poor data quality Possible Normal sinus rhythm Right superior axis deviation ST & T wave abnormality, consider inferior ischemia Abnormal ECG When compared with ECG of 09-Jun-2024 14:59, QRS axis Shifted left ST no longer elevated in Lateral leads Referred By: Generic ED Physician Electronically Signed By: HILTON DONATO MD
--- NOTE | ~2024-06-19 | XR_ITS ---
CLINICAL HISTORY: SOB, CP 2 view chest x-ray Comparison: Chest x-ray from 06/09/2024 Findings: Continued improved aeration of the left lung base. Mild residual or recurrent bibasilar atelectasis/pneumonitis with mild elevation left hemidiaphragm. Trace left pleural effusion. No pneumothorax. Imaged mediastinum and imaged osseous structures are unchanged. Surgical clips again noted about the spine on the lateral image. IMPRESSION: 1. Mild bibasilar atelectasis/pneumonitis. 2. Overall improved aeration of the left lung base compared to 06/09/2024. This document has been electronically signed by: Devin Evangelista MD on 06/19/2024 19:20:49
[2024-06-19 18:32] VITALS: BP 134/71; PULSE 74; RESP 18; TEMP 36.6; O2SAT 94; BMI 35.4
--- NOTE | 2024-06-19 18:40 | ED.GENADULT ---
HPI - General Adult General Chief complaint: General Medical Stated complaint: Difficulty breathing Time Seen by Provider: 06/19/24 21:03 Source: patient Limitations: no limitations History of Present Illness ED Provider: Sherin Bennett PA-C HPI narrative: 53-year-old male with a history of depression, prior psychosis, suicidal ideation, anxiety, asthma, COPD, hyperlipidemia, diabetes, hypertension, obesity, chronic kidney disease presents with multiple complaints. Patient states he developed acute onset shortness of breath with chest pain about an hour prior to arrival. Ongoing cough and wheeze, patient was diagnosed with influenza a on June 14. Patient has not been using his inhalers at home as directed. Denies fever. Related Data Home Medications ?Medication ?Instructions ?Recorded ?Confirmed atenolol 25 mg tablet 25 mg PO DAILY 06/17/24 06/17/24 bupropion HCl 150 mg 24 hr tablet, 150 mg PO DAILY 06/17/24 06/17/24 extended release ferrous sulfate 325 mg (65 mg 325 mg PO DAILY 06/17/24 06/17/24 iron) tablet haloperidol 10 mg tablet 10 mg PO BEDTIME 06/17/24 06/17/24 insulin glargine-yfgn 100 unit/mL 20 unit subcut QPM 06/17/24 06/17/24 (3 mL) subcutaneous pen melatonin 3 mg tablet 6 mg PO BEDTIME 06/17/24 06/17/24 omeprazole 40 mg capsule,delayed 40 mg PO DAILY 06/17/24 06/17/24 release tamsulosin 0.4 mg capsule 0.4 mg PO BEDTIME 06/17/24 06/17/24 thiamine HCl (vitamin B1) 100 mg 100 mg PO BID 06/17/24 06/17/24 tablet trazodone 50 mg tablet 50 mg PO BEDTIME PRN insomnia 06/17/24 06/17/24 Previous Rx's ?Medication ?Instructions ?Recorded cholecalciferol (vitamin D3) 50 50 mcg PO DAILY 90 days #90 caps 10/06/23 mcg (2,000 unit) capsule metformin 1,000 mg tablet 1,000 mg PO BID 90 days #180 tabs 01/20/24 atorvastatin 40 mg tablet 40 mg PO DAILY 90 days #90 tabs 03/26/24 Ventolin HFA 90 mcg/actuation 2 puff PO Q4H PRN for wheezing #18 03/29/24 aerosol inhaler (albuterol sulfate) ea meclizine 25 mg tablet 25 mg PO TID PRN dizziness #20 tabs 05/02/24 betamethasone, augmented 0.05 % 1 appl topical BID #15 grams 06/02/24 topical cream docusate sodium 100 mg capsule 100 mg PO BEDTIME #30 caps 06/02/24 white petrolatum-mineral oil 1 appl topical TID #15 grams 06/02/24 topical cream (Dermacerin topical cream) aripiprazole 5 mg tablet (Abilify) 5 mg PO DAILY 30 days #30 tabs 06/16/24 benztropine 0.5 mg tablet 0.5 mg PO BID 30 days #60 tabs 06/16/24 hydroxyzine HCl 25 mg tablet 25 mg PO BID@0900,1700 30 days #60 06/16/24 tabs azithromycin 250 mg tablet 250 mg PO DAILY #3 tabs 06/20/24 prednisone 20 mg tablet 40 mg (2 x 20 mg) PO DAILY #6 tabs 06/20/24 Allergies Allergy/AdvReac Type Severity Reaction Status Date / Time pollen extracts [POLLEN] Allergy Mild RUNNY NOSE Verified 06/19/24 18:35 cat dander [CATS] Allergy Unknown UNKNOWN Verified 06/19/24 18:35 dog dander [DOGS] Allergy Unknown UNKNOWN Verified 06/19/24 18:35 mold [MOLD] Allergy Unknown UNKNOWN Verified 06/19/24 18:35 Review of Systems Review of Systems: Yes all other systems are reviewed and are negative Constitutional: Constitutional: Denies fatigue and Denies fever(s) Cardiovascular: Cardiovascular: Reports chest pain and Reports dyspnea Respiratory: Respiratory: Reports cough, Reports dyspnea and Reports wheezing Gastrointestinal: Gastrointestinal: Denies abdominal pain, Denies diarrhea, Denies nausea and Denies vomiting Endocrine: Endocrine: Denies fatigue Allergic/Immunologic: Allergic/Immunologic: Reports wheezing PMFSH Past Medical History Attestation statement: The following information was validated with the patient. Medical History Recurrent major depression Allergic rhinitis Insomnia Palpitations Vitamin D deficiency Chronic kidney disease, stage III (moderate) GERD without esophagitis Restrictive lung disease Obesity (BMI 30-39.9) Benign essential hypertension Pure hypercholesterolemia Diabetes mellitus Pulmonary emboli Chondrosarcoma Hyperlipidemia Chronic restrictive lung disease COPD (chronic obstructive pulmonary disease) Asthma Surgical History History of esophagogastroduodenoscopy (EGD) H/O colonoscopy History of inguinal hernia repair Hx of exploratory thoracotomy H/O tooth extraction Family History Family History Father Hypertension Kidney failure, acute Mother Lung cancer Family/Other Diabetes Social History Social History Household Members: None Housing: Apartment Do you presently have visiting nurse or other home services: No Alcohol intake: never Patient Tobacco Use Status: Never used Tobacco Smoked in Last 30 Days: No e-Cigarette/Vaping Use: Never Used Second Hand Smoke Exposure: Yes Use of substances other than those prescribed or required for medical reasons: No Advance Directives: No Advance Directives Information Provided: Yes service: No Current occupational status: unemployed Sexual orientation: Straight/Heterosexual Cognitive needs: No Hearing needs: No Vision needs: Yes (Glasses) Physical Exam ED Vital Signs: Vital Signs - 24 hr 06/19/24 18:32 06/19/24 21:59 06/19/24 23:28 Temperature 97.9 F 97.6 F Pulse Rate 74 64 68 Respiratory Rate 18 18 18 Blood Pressure 134/71 128/68 Pulse Oximetry 94 95 Oxygen Delivery Method Room Air Room Air 06/20/24 07:00 06/20/24 11:45 Temperature 97.6 F 97.7 F Pulse Rate 63 77 Respiratory Rate 16 18 Blood Pressure 123/60 133/69 Pulse Oximetry 96 94 Oxygen Delivery Method Room Air Room Air BMI result Body Mass Index 35.4 Const Other: Alert, lying on his side sleeping easily woken, appears older than stated age Orientation/consciousness: patient oriented x3 Resp Other: Active bronchospasm cough, diffuse expiratory wheezing noted posterior newby, the patient was not tachypneic Cardio Other: Normal peripheral perfusion Skin Other: Warm dry no rash Neuro General: patient oriented x3, gait normal, no focal motor deficits and CN's II-XI intact bilaterally Psych Other: Cooperative Course Course Course Narrative: This is an RME performed by Rashaun Buck CNP: Additional HPI, ROS, PE not included below will be deferred to primary provider. Patient is a 53-year-old male presents emergency department for evaluation of sudden-onset chest pain shortness of breath about 40 minutes prior to arrival associated lightheadedness and dizziness. Influenza a positive 06/14/2024 Plan: EKG, viral serologies, serum labs, CXR Reevaluation(s) Reevaluation #1: The patient was ambulated he maintain his oxygen saturation on room air after having an updraft. I was going to discharge him, nursing staff was going through risk related questions in regard to having thoughts of self-harm, the patient verbalized yes. He is having vague SI, on a scale of 1-10 he says about a 2. The patient is chronically suicidal, I spoke with the care team, they in turn spoke with the patient. They are placing a psych consult to happen in the morning. The patient's pattern is to present with a medical complaint, he in turn says he is suicidal at the time of his discharge. This is becoming a repetitive habitual pattern. He is chronically suicidal. We need guidance as to when to place a care team consult versus being able to discharge the patient safely into the community. To note, outpatient resources have been implemented and presented to the patient. After a recent emergency department visit on June 09 for chest pain, the patient ended up having a care team consult. During that time he had just been discharged from inpatient psychiatric unit. The patient actively asks to be admitted every time he is here. Reevaluation #2: 06/20/24 Mery Hodges PA-C --- patient seen and cleared from both a care team/ psych stand point. he has been provided with numerous outpatient resources. denies SI/HI at this time. zpak and prednisone sent to pharmacy for asthma exacerbation. vitals have remained stable throughout visit. Observation care revealed that the patient does not meet medical necessity for hospitalization. Final disposition discussed with the patient. The patient completed observation care at 1541, total time in observation care was 13 hours. Time: 15:39 Medications Administered Discontinued Medications Generic Name Dose Route Start Last Admin Trade Name Freq PRN Reason Stop Dose Admin Albuterol Sulfate 4 puff 06/20/24 06:00 06/20/24 06:14 Albuterol Sulfate 90 Mcg 8 Gm Inhaler INHALE 06/20/24 06:01 4 puff ONCE ONE Administration Albuterol/Ipratropium 3 ml 06/19/24 23:26 06/19/24 23:27 Albuterol/Iprat 2.5/0.5mg 3 Ml Ampul.Neb INHALE 06/19/24 23:27 3 ml ONCE ONE Administration Azithromycin 500 mg 06/19/24 22:36 06/19/24 22:40 Azithromycin 500 Mg Tablet PO 06/19/24 22:37 500 mg ONCE ONE Administration Azithromycin 250 mg 06/20/24 06:00 06/20/24 07:33 Azithromycin 250 Mg Tablet PO 06/20/24 06:01 250 mg ONCE ONE Administration Magnesium Sulfate 2 gm in 50 mls @ 50 mls/hr 06/19/24 22:23 06/19/24 23:42 Magnesium Sulfate/H2o IV 06/19/24 23:22 Infused ONCE ONE Infusion Methylprednisolone Sodium Succinate 125 mg 06/19/24 22:23 06/19/24 22:40 Methylprednisolone Sod Succ 125 Mg/2 Ml Vial IVPUSH 06/19/24 22:24 125 mg ONCE ONE Administration Prednisone 40 mg 06/20/24 06:00 06/20/24 06:14 Prednisone 20 Mg Tablet PO 06/20/24 06:01 40 mg ONCE ONE Administration Medical Decision Making Medical Decision Making MDM Narrative: 53-year-old male with a history of depression, prior psychosis, suicidal ideation, anxiety, asthma, COPD, hyperlipidemia, diabetes, hypertension, obesity, chronic kidney disease presents with multiple complaints. Patient states he developed acute onset shortness of breath with chest pain about an hour prior to arrival. Ongoing cough and wheeze, patient was diagnosed with influenza a on June 14. Patient has not been using his inhalers at home as directed. Denies fever. Problem: Psychiatric illness, COPD/asthma, diabetes History: Per patient I have considered the following differential diagnoses: Asthma/COPD exacerbation, pneumonia, bronchitis, viral syndrome , ACS I have independently reviewed the following tests: Labs: No leukocytosis, not anemic, no electrolyte abnormality, troponin 8.2, we will obtain a delta troponin, viral panel still positive for influenza A EKG: Junctional rhythm, rate of 70, ST and T-wave abnormalities noted inferior leads, QTC 442 Chest x-ray:IMPRESSION: 1. Mild bibasilar atelectasis/pneumonitis. 2. Overall improved aeration of the left lung base compared to 06/09/2024. This document has been electronically signed by: Devin Evangelista MD on 06/19/2024 19:20:49 Plan: The patient is here with ongoing symptoms, he has not been treating himself at home as directed. We will be giving an updraft, steroid and magnesium. Screening labs including a chest x-ray were already obtained from triage, his chest x-ray is improved from his most recent. To note the patient has been seen in the emergency room 5 times since May. The patient's symptoms are not consistent with ACS, he is very vague about his symptoms. A troponin was ordered, and an EKG. Lab Data 06/19/24 18:52 06/19/24 18:52 Labs: Lab Results 06/19/24 06/19/24 Range/Units 18:52 23:01 WBC 4.1 L (4.8-10.8) X10*3/uL RBC 4.41 L (4.60-5.80) X10*6/uL Hgb 12.9 L (14.0-18.0) g/dl Hct 39.2 L (42.0-52.0) % MCV 88.9 (80.0-98.0) fL MCH 29.3 (27.0-33.0) pg MCHC 32.9 (31.0-36.0) g/dl RDW 15.5 (11.0-16.0) % Plt Count 164 D (160-400) X10*3/uL MPV 10.1 (9.4-12.4) fL Immature Gran % (Auto) 0.2 (0.0-0.4) % Neut % (Auto) 56.8 (45-73) % Lymph % (Auto) 30.9 (20-40) % [place] % (Auto) 7.5 (2-11) % Eos % (Auto) 4.1 H (0-4) % Baso % (Auto) 0.5 (0-2) % Lymph # (Auto) 1.3 (1.2-4.9) X10*3/uL [place] # (Auto) 0.3 (0.1-1.2) X10*3/uL Eos # (Auto) 0.2 (0.0-0.4) X10*3/uL Baso # (Auto) 0.0 (0.0-0.2) X10*3/uL Abs Immat Gran (auto) 0.01 (0.00-0.03) X10*3/uL Absolute Neuts (auto) 2.4 (2.0-8.3) x10*3/uL Absolute Nucleated RBC 0.000 (0.0-0.012) X10*3/uL Nucleated RBC % (auto) 0.0 (0.0-0.2) /100WBC PT 11.9 (10.9-12.4) SEC INR 1.0 (0.9-1.1) Sodium 142 (135-145) mmol/L Potassium 4.2 (3.3-5.1) mmol/L Chloride 111 H (96-108) mmol/L Carbon Dioxide 21 L (22-29) mmol/L Anion Gap 14 (12-20) BUN 16 (9-16) mg/dL Creatinine 1.65 H (0.5-1.4) mg/dL Estim Creat Clear Calc 60.9 Estimated GFR 44 Random Glucose 90 (60-115) mg/dL Calcium 8.4 D (8.4-10.2) mg/dL Magnesium 1.8 (1.6-2.6) mg/dL Total Bilirubin 0.4 (0.0-1.0) mg/dL AST 41 H (5-37) U/L ALT 21 (0-40) U/L Alkaline Phosphatase 72 (39-117) U/L Troponin I High Sens 8.2 D 8.3 (<3.5-35.0) ng/L B-Natriuretic Peptide 35 (<100) pg/mL Total Protein 7.2 (6.5-8.0) g/dL Albumin 3.8 (3.5-5.0) g/dL Influenza Type A (PCR) POSITIVE A (Negative) Influenza Type B (PCR) NEGATIVE (Negative) RSV RNA Qual (PCR) NEGATIVE (Negative) SARS-CoV-2 RNA (RT-PCR) NEGATIVE (Negative) Discharge Plan Discharge Clinical Impression: Influenza A, Asthma exacerbation, Suicidal ideation Patient Disposition: Home, Self-Care Instructions: Asthma (ED), Influenza (ED) Additional Instructions: You are being treated for an asthma exacerbation and you have known influenza a which were aware of. Today your chest x-ray is clear you had no lab abnormalities. Use the steroid as directed, take the azithromycin as directed, use your inhaler as directed. Follow up with your primary care provider next week. You were also evaluated for a behavioral health issue by both the care team and psych. You were provided with various outpatient resources. It is important after your visit that you follow up with either your behavioral health provider or a primary care doctor within 7 days.? If you have trouble finding a therapist you can reach out to [address] [phone] [facility] [place] can be reached 7 days a week 24 hours a day.? Call [phone] to speak with someone.? Return for any worsening symptoms or concerns such as thoughts of self harm or harm to others. Please call 911 if you feel your mental health is worsening.? Prescriptions: New prednisone 20 mg tablet 40 mg PO DAILY Qty: 6 0RF azithromycin 250 mg tablet 250 mg PO DAILY Qty: 3 0RF Rx Instructions: Patient had 1st 2 doses in the emergency department during his stay No Action cholecalciferol (vitamin D3) 50 mcg (2,000 unit) capsule 50 mcg PO DAILY 90 Days Qty: 90 3RF metformin 1,000 mg tablet 1,000 mg PO BID 90 Days Qty: 180 1RF atorvastatin 40 mg tablet 40 mg PO DAILY 90 Days Qty: 90 1RF albuterol sulfate [Ventolin HFA] 90 mcg/actuation HFA aerosol inhaler 2 puff PO Q4H PRN (Reason: for wheezing) Qty: 18 3RF meclizine 25 mg tablet 25 mg PO TID PRN (Reason: dizziness) Qty: 20 0RF betamethasone, augmented 0.05 % Cream 1 appl topical BID Qty: 15 0RF Protocol: Apply to: Apply to: chest wall docusate sodium 100 mg Capsule 100 mg PO BEDTIME Qty: 30 0RF Dermacerin Cream 1 appl topical TID Qty: 15 0RF Protocol: Apply to: Apply to: affected areas aripiprazole [Abilify] 5 mg Tablet 5 mg PO DAILY 30 Days Qty: 30 0RF benztropine 0.5 mg Tablet 0.5 mg PO BID 30 Days Qty: 60 0RF hydroxyzine HCl 25 mg Tablet 25 mg PO BID@0900,1700 30 Days Qty: 60 0RF thiamine HCl (vitamin B1) 100 mg tablet 100 mg PO BID melatonin 3 mg tablet 6 mg PO BEDTIME trazodone 50 mg tablet 50 mg PO BEDTIME PRN (Reason: insomnia) atenolol 25 mg tablet 25 mg PO DAILY tamsulosin 0.4 mg capsule 0.4 mg PO BEDTIME ferrous sulfate 325 mg (65 mg iron) tablet 325 mg PO DAILY omeprazole 40 mg capsule,delayed release(DR/EC) 40 mg PO DAILY haloperidol [Haldol] 10 mg Tablet 10 mg PO BEDTIME insulin glargine-yfgn 100 unit/mL (3 mL) insulin pen 20 unit subcut QPM bupropion HCl 150 mg tablet extended release 24 hr 150 mg PO DAILY Referrals: Bon Arvizu MD [Primary Care Provider] - Print Language: Maldivian
[2024-06-19 18:58] LABS: MANUAL DIFF FLAG NO
[2024-06-19 18:59] LABS: Basophils Percent Auto 0.5 % (0-2); Eosinophils Absolute Auto 0.2 X10*3/uL (0.0-0.4); Eosinophils Percent Auto 4.1 % (0-4); Hematocrit 39.2 % (42.0-52.0); Hemoglobin 12.9 g/dl (14.0-18.0); Imm Gran Abs Auto 0.01 X10*3/uL (0.00-0.03); Imm Gran Pct Auto 0.2 % (0.0-0.4); Lymphocytes Absolute Auto 1.3 X10*3/uL (1.2-4.9); Lymphocytes Percent Auto 30.9 % (20-40); Mean Corpuscular HGB Conc 32.9 g/dl (31.0-36.0); Mean Corpuscular Hemoglobin 29.3 pg (27.0-33.0); Mean Corpuscular Volume 88.9 fL (80.0-98.0); Mean Platelet Volume 10.1 fL (9.4-12.4); Monocytes Absolute Auto 0.3 X10*3/uL (0.1-1.2); Monocytes Percent Auto 7.5 % (2-11); Neutrophils Absolute Auto 2.4 x10*3/uL (2.0-8.3); Neutrophils Percent Auto 56.8 % (45-73); Platelet Count 164 X10*3/uL (160-400); Red Blood Count 4.41 X10*6/uL (4.60-5.80); Red Cell Distribution Width 15.5 % (11.0-16.0); White Blood Count 4.1 X10*3/uL (4.8-10.8)
[2024-06-19 19:05] LABS: Prothrombin Time 11.9 SEC (10.9-12.4)
[2024-06-19 19:16] LABS: Alanine Aminotransferase 21 U/L (0-40); Albumin Level 3.8 g/dL (3.5-5.0); Alkaline Phosphatase 72 U/L (39-117); Anion Gap 14 (12-20); Aspartate Amino Transferase 41 U/L (5-37); Bilirubin Total 0.4 mg/dL (0.0-1.0); Blood Urea Nitrogen 16 mg/dL (9-16); Calcium 8.4 mg/dL (8.4-10.2); Carbon Dioxide 21 mmol/L (22-29); Chloride 111 mmol/L (96-108); Creatinine Clr Calc Pharmacy 60.9; Estimated Glomerular Filt Rate 44; Glucose Random 90 mg/dL (60-115); Magnesium 1.8 mg/dL (1.6-2.6); Potassium 4.2 mmol/L (3.3-5.1); Sodium 142 mmol/L (135-145); Total Protein 7.2 g/dL (6.5-8.0)
[2024-06-19 19:21] LABS: B Type Natriuretic Peptide 35 pg/mL (<100)
[2024-06-19 19:23] LABS: Troponin-I High Sensitivity 8.2 ng/L (<3.5-35.0)
[2024-06-19 19:37] LABS: Influenza A PCR POSITIVE (Negative); Influenza B PCR NEGATIVE (Negative); Resp Syncy Virus RNA Qual PCR NEGATIVE (Negative); SARS COV2 PCR INHOUSE NEGATIVE (Negative)
--- OUTSIDE RECORDS SUMMARY | 2024-06-19 21:13 | XMS_ITS | Clinical Summary ---
Author Organization [facility] Facility Address [address] [place] [address] Care Team Providers Care Online Merchandising Coordinator Name Role Phone Bon Arvizu MD Primary Care Provider [phone] Allergies No known active allergies Medications Ventolin [...] Visit [facility] [address] [place] [address] Tashi Bonner MD [address] [facility] [address] [place] [id number] Health Maintenance Due Date Last Done Comments [...] Exam 09/25/2022 Influenza Vaccine (#1) [address] [place] [place] [address] [place] [address] Care Teams Online Merchandising Coordinator Relationship Specialty Start Date End Date Bon Arvizu MD [address] [place] [address] PCP - General Internal Medicine 06/04/22
--- OUTSIDE RECORDS SUMMARY | 2024-06-19 21:13 | XMS_ITS ---
Author Organization [facility] Address [address] [place] [address] Care Team Providers Care Ferryboat Pilot Name Role Phone Fox Ku MD Primary Care Provider Tashi Bruno Unavailable [phone] Alisha Moore Unavailable Unavailable ALLERGIES No Known [...] adenomatous polyp of colon (Z86.010) Active confirmed 715500291 Problem Colon cancer screening (Z12.11) Active confirmed 311921045 Problem Preprocedural examination (Z01.818) Active confirmed 971091555935596 Problem Gastroesophageal reflux disease without esophagitis (K21.9) Active confirmed 995529230 VITAL SIGNS BMI 40.13 kg/m2 04/17/2023 Blood pressure systolic 00 mm Hg 04/17/20 23 Blood pressure diastolic 00 mm Hg 023 Height 67.75 in 04/17/2023 Temperature 97.7 degrees Fahrenheit 04/17/20 23 Weight 262 lbs 04/17/2023 Encounters Encounter Location Date Provider Diagnosis [facility] [address] [place] [address] 04/17/2023 Tashi Currie Preprocedural examin ation Z01.818 [...]
--- OUTSIDE RECORDS SUMMARY | 2024-06-19 21:13 | XMS_ITS | Clinical Summary ---
Author Organization [facility] Address [address] [place] [address] Care Team Providers Care Driver'S License Examiner Name Role Phone Unavailable Primary Care Provider [...]
--- OUTSIDE RECORDS SUMMARY | 2024-06-19 21:14 | XMS_ITS ---
Author Organization [facility] Address [address] [place] [address] Care Team Providers Care Laboratory Manager Name Role Phone Fox Ku MD Primary Care Provider Tashi Bruno [phone] Alisha Moore Unavailable Unavailable REASON FOR VISIT [...] Active Encounters Encounter Location Date Provider Diagnosis [facility] [address] [place] [address] 04/17/2023 Tashi Currie PLAN OF TREATMENT Medication [...]
--- OUTSIDE RECORDS SUMMARY | 2024-06-19 21:14 | XMS_ITS | Encounter Summary ---
Author Organization [facility] Address [address] [place] [address] Care Team Providers Care Playground Official Name Role Phone Unavailable Primary Care Provider Unavailabl e Encounter Details Date Type Department Care Team (Late st Contact Info) Description 12/23/2021 Scanned Document [facility] [address] [place] [id number] Gastroenterology, Scan Social History Tobacco Use Types [...]
--- OUTSIDE RECORDS SUMMARY | 2024-06-19 21:14 | XMS_ITS ---
Author Organization [facility] Address [address] [place] [address] Care Team Providers Care Benefit Authorizer Name Role Phone Fox Ku MD Primary Care Provider Tashi Bruno Unavailable [phone] Alisha Moore Unavailable Unavailable REASON FOR VISIT screening,hx polyps PROBLEMS Problem Type ICD Code Onset Dates Problem Status W/U Status Risk SNOMED Code Notes Problem Diverticulosis of large intestine without perforation or abscess without bleeding (K57.30) Active confirmed Diverticul ar disease of colon (323882229) Encounters Encounter Location Date Provider Diagnosis [facility] Outpatient [address] [place] [phone] 07/13/2023 Tashi Currie Encounter for scre ening [...]
--- OUTSIDE RECORDS SUMMARY | 2024-06-19 21:14 | XMS_ITS | Patient Health Record ---
Author Organization [facility] Address [address] [place] [address] Care Team Providers Care Publicity Agent Name Role Phone Fox Ku MD Primary Care Provider Tashi Bruno Unavailable [phone] Alisha Moore Unavailable Unavailable ALLERGIES No Known Allergies RESULTS Component Value Reference Range Notes Pathology (Not yet reviewed by provider) Interpretation: Performing Lab:[facility], [address] [place] [phone] Notes/Report: Glucose, Whole Blood Reviewed date:07/13/2023 07:14:58 PM Interpretation: Performing Lab:[facility], [address] [place] [phone] Notes/Report: Glucose, Whole Blood 114 60-115 mg/dL METER # : [id number] REASON FOR REFERRAL No Information MEDICATIONS Medication [...] iron deficiency anemia type (D50.9) Active confirmed 84800423 Problem History of adenomatous polyp of colon (Z86.010) Active confirmed 848781896 Problem Colon cancer screening (Z12.11) Active confirmed 391015933 Problem Preprocedural examination (Z01.818) Active confirmed 988233330921105 Problem Gastroesophageal reflux disease without esophagitis (K21.9) Active confirmed 896312780 Problem Diverticulosis of large intestine without perforation or abscess without bleeding (K57.30) Active confirmed Diverticul ar disease of colon (098944197) Encounters Encounter Location Date Provider Diagnosis [facility] [address] [place] [phone] 07/13/2023 Tashi Currie Encounter for scre ening [...] Insured Coverage Start Date Coverage End Date [facility] [employer] [facility] [address] [address] [place], [place] [id number] KIAN MAHMOOD Self - patient is the insured MEDICAID OF [employer] [address] [place] [address] [id number] KIAN MAHMOOD Self - patient is the insured MEDICAL (GENERAL) HISTORY Medical History History ICD Code IDDM Hypertension Heart murmur-Dr. Collins Asthma/COPD- Dr. Correa Pulmonary embolus in 2015--on Coumadin-- sees Dr. Moore Lung mass--surgery in 2008 a s below, with XRT; biopsied in approx 2015 and benign--followed by Dr. Tino Dim[place],CVA,renal disease GERD--upper endoscopy August of 2017 with [...] History Surgery Date(Month/Year) Mass removed--Dr. Fields at [facility]-- Be nign , but had XRT 2008 Right inguinal hernia 1990 Ear tubes/Adenoids
[2024-06-19 21:59] VITALS: BP 128/68; PULSE 64; RESP 18; TEMP 36.4; O2SAT 95
[2024-06-19] MEDS: methylPREDNISolone Sod Succ 125 MG/2 ML VIAL IVPUSH (22:40)
[2024-06-19] MEDS: Azithromycin 500 MG TABLET PO (22:40)
[2024-06-19] MEDS: Magnesium Sulfate/H2O 2 GM/50 ML PIGGYBACK IV (22:41)
--- NOTE | 2024-06-19 23:14 | PC.NURSE ---
RT at bedside for treatment
[2024-06-19] MEDS: Albuterol/Iprat 2.5/0.5MG 3 ML AMPUL.NEB INHALE (23:27)
[2024-06-19 23:28] VITALS: PULSE 68; RESP 18; O2SAT 69
[2024-06-19 23:34] LABS: Troponin-I High Sensitivity 8.3 ng/L (<3.5-35.0)
--- NOTE | 2024-06-19 23:41 | PC.NURSE ---
when asked if pt had thoughts of harming himself he reports 08/18 , no plan
--- NOTE | 2024-06-20 01:44 | MHC.CARE ---
T/w spoke with pt. at the request of Dr. Marinelli. It appears that pt. is suicidal at baseline and is seeking help. Pt. was discharged from earlier this month and an [facility] referral was placed. Pt. reports that [facility] has not called him yet. Pt. endorses suicidal ideation, with no plan. Pt. would like to sleep at [facility], in hopes to feel better tomorrow. PSYCH Consult will be ordered. Pt. would benefit from having access to outpatient providers as SI is his baseline.
--- NOTE | 2024-06-20 03:50 | MHC.EDTECH ---
belongings on [place] [address] top shelf 2 bags
[2024-06-20] MEDS: Albuterol Sulfate 90 MCG 8 GM INHALER 4 PUFF INHALE (06:14)
[2024-06-20] MEDS: predniSONE 20 MG TABLET 40 MG PO (06:14)
[2024-06-20 07:00] VITALS: BP 123/60; PULSE 63; RESP 16; TEMP 36.4; O2SAT 96
--- NOTE | 2024-06-20 07:03 | PC.NURSE ---
pt resting comfortably throughout the night, calm and cooperative for staff. IV removed. abx delayed, awaiting med from pharmacy
[2024-06-20] MEDS: Azithromycin 250 MG TABLET PO (07:33)
[2024-06-20 11:45] VITALS: BP 133/69; PULSE 77; RESP 18; TEMP 36.5; O2SAT 94
--- NOTE | 2024-06-20 12:06 | PM.PSYCN ---
History of Present Illness Date of Service: 06/20/2024 Chief Complaint: Difficulty breathing Reason for Consult: SI with plan to stab himself Discussed with referring provider: Yes Sources of Information: patient interviewed, chart reviewed and crisis/core team assessment reviewed HPI Past Psychiatric History: IP: hx of 2 prior inpatient psychiatric hospitalizations denies hx of SA/SIB OP: PCP prescribes-Dr. Arvizu Trials: Lexapro, Wellbutrin, seroquel and haldol [facility] Medical History Recurrent major depression Allergic rhinitis Insomnia Palpitations Vitamin D deficiency Chronic kidney disease, stage III (moderate) GERD without esophagitis Restrictive lung disease Obesity (BMI 30-39.9) Benign essential hypertension Pure hypercholesterolemia Diabetes mellitus Pulmonary emboli Chondrosarcoma Hyperlipidemia Chronic restrictive lung disease COPD (chronic obstructive pulmonary disease) Asthma Surgical History History of esophagogastroduodenoscopy (EGD) H/O colonoscopy History of inguinal hernia repair Hx of exploratory thoracotomy H/O tooth extraction Family History: denies Social History: Born and raised in [place] by both parents. Mother in 2000 and father in 2008 Has a twin brother and two older brothers High school graduate Never , no children Trauma History: medical- tumor L lung 2008. Diagnostics Vital Signs (24Hr): Vital Signs - 24 hr 06/19/24 18:32 06/19/24 21:59 06/19/24 23:28 Temperature 97.9 F 97.6 F Pulse Rate 74 64 68 Respiratory Rate 18 18 18 Blood Pressure 134/71 128/68 Pulse Oximetry 94 95 Oxygen Delivery Method Room Air Room Air 06/20/24 07:00 06/20/24 11:45 Temperature 97.6 F 97.7 F Pulse Rate 63 77 Respiratory Rate 16 18 Blood Pressure 123/60 133/69 Pulse Oximetry 96 94 Oxygen Delivery Method Room Air Room Air BMI result Body Mass Index 35.4 Labs 06/19/24 18:52 06/19/24 18:52 Labs: Laboratory Results - last 48 hr 06/19/24 06/19/24 18:52 23:01 WBC 4.1 L RBC 4.41 L Hgb 12.9 L Hct 39.2 L MCV 88.9 MCH 29.3 MCHC 32.9 RDW 15.5 Plt Count 164 D MPV 10.1 Immature Gran % (Auto) 0.2 Neut % (Auto) 56.8 Lymph % (Auto) 30.9 [place] % (Auto) 7.5 Eos % (Auto) 4.1 H Baso % (Auto) 0.5 Lymph # (Auto) 1.3 [place] # (Auto) 0.3 Eos # (Auto) 0.2 Baso # (Auto) 0.0 Abs Immat Gran (auto) 0.01 Absolute Neuts (auto) 2.4 Absolute Nucleated RBC 0.000 Nucleated RBC % (auto) 0.0 PT 11.9 INR 1.0 Sodium 142 Potassium 4.2 Chloride 111 H Carbon Dioxide 21 L Anion Gap 14 BUN 16 Creatinine 1.65 H Estim Creat Clear Calc 60.9 Estimated GFR 44 Random Glucose 90 Calcium 8.4 D Magnesium 1.8 Total Bilirubin 0.4 AST 41 H ALT 21 Alkaline Phosphatase 72 Troponin I High Sens 8.2 D 8.3 B-Natriuretic Peptide 35 Total Protein 7.2 Albumin 3.8 Influenza Type A (PCR) POSITIVE A Influenza Type B (PCR) NEGATIVE RSV RNA Qual (PCR) NEGATIVE SARS-CoV-2 RNA (RT-PCR) NEGATIVE Medications Allergies Allergies Allergy/AdvReac Type Severity Reaction Status Date / Time pollen extracts [POLLEN] Allergy Mild RUNNY NOSE Verified 06/19/24 18:35 cat dander [CATS] Allergy Unknown UNKNOWN Verified 06/19/24 18:35 dog dander [DOGS] Allergy Unknown UNKNOWN Verified 06/19/24 18:35 mold [MOLD] Allergy Unknown UNKNOWN Verified 06/19/24 18:35 Assessment & Plan Total time managing care of this patient today ____ minutes.
[2024-06-20 16:23] VITALS: BP 133/69; PULSE 77; RESP 18; TEMP 36.5; O2SAT 94
== END 2024-06-20 16:48 | disposition home or self-care (01) ==
PROVIDERS: Nurse Practitioner Family; Physician Assistant Medical; Emergency Provider Emergency Medicine; PCP Internal Medicine
DX: J10.1 Influenza due to other identified influenza virus with other respiratory manifestations (principal); R45.851 Suicidal ideations; J45.901 Unspecified asthma with (acute) exacerbation; R06.02 Shortness of breath; R07.89 Other chest pain; R05.9 Cough, unspecified; Z03.818 Encounter for observation for suspected exposure to other biological agents ruled out; Z79.899 Other long term (current) drug therapy
CPT/HCPCS: 0241U; 36415; 71046; 80053; 83735; 83880; 84484; 85025; 85610; 93005; 94640; 96365; 96375; 99285; J2919; J3475; S9485

== ENCOUNTER → 2024-06-19 18:40 | Outpatient (BNV) | payer OTHER, SELFPAY | PROVIDERS: Emergency Provider Emergency Medicine; PCP Internal Medicine; Visit Provider Internal Medicine Cardiovascular Disease | DX: R94.31 Abnormal electrocardiogram [ECG] [EKG] (principal) | CPT/HCPCS: 93010 ==

== ENCOUNTER → 2024-06-19 18:40 | Outpatient (BNV) | payer OTHER, SELFPAY | PROVIDERS: PCP Internal Medicine; Visit Provider Radiology Neuroradiology | DX: R06.02 Shortness of breath (principal); R07.9 Chest pain, unspecified | CPT/HCPCS: 71046 ==

== ENCOUNTER → 2024-06-19 21:09 | Outpatient (BNV) | payer OTHER, SELFPAY | PROVIDERS: Emergency Provider Emergency Medicine; PCP Internal Medicine; Visit Provider Social Worker | DX: F39 Unspecified mood [affective] disorder (principal) | CPT/HCPCS: 99499 ==

== ENCOUNTER 2024-06-23 11:16 | Outpatient (REF) | payer OTHER, SELFPAY ==
[2024-06-23 11:30] LABS: MANUAL DIFF FLAG NO
[2024-06-23 11:37] LABS: Basophils Percent Auto 0.3 % (0-2); Eosinophils Absolute Auto 0.1 X10*3/uL (0.0-0.4); Eosinophils Percent Auto 2.6 % (0-4); Hematocrit 41.1 % (42.0-52.0); Hemoglobin 13.5 g/dl (14.0-18.0); Imm Gran Abs Auto 0.01 X10*3/uL (0.00-0.03); Imm Gran Pct Auto 0.3 % (0.0-0.4); Lymphocytes Absolute Auto 0.4 X10*3/uL (1.2-4.9); Lymphocytes Percent Auto 11.4 % (20-40); Mean Corpuscular HGB Conc 32.8 g/dl (31.0-36.0); Mean Corpuscular Hemoglobin 29.1 pg (27.0-33.0); Mean Corpuscular Volume 88.6 fL (80.0-98.0); Monocytes Absolute Auto 0.4 X10*3/uL (0.1-1.2); Neutrophils Absolute Auto 2.5 x10*3/uL (2.0-8.3); Neutrophils Percent Auto 73.4 % (45-73); Platelet Count 201 X10*3/uL (160-400); Red Blood Count 4.64 X10*6/uL (4.60-5.80); Red Cell Distribution Width 15.5 % (11.0-16.0); White Blood Count 3.4 X10*3/uL (4.8-10.8)
[2024-06-23 11:46] LABS: Estimated Average Glucose 128 mg/dL; Hemoglobin A1C 153.5186 umol/L; Hemoglobin A1c % 6.1 % (<6.0); Total Hemoglobin (HGBA1C) 3561.5218 umol/L
--- OUTSIDE RECORDS SUMMARY | 2024-06-23 11:54 | XMS_ITS ---
Author Organization [facility] Address [address] [place] [address] Care Team Providers Care Rn Triage Name Role Phone Fox Ku MD Primary Care Provider Tashi Bruno Unavailable [phone] Alisha Moore Unavailable Unavailable ALLERGIES No Known [...] adenomatous polyp of colon (Z86.010) Active confirmed 747778255 Problem Colon cancer screening (Z12.11) Active confirmed 859794527 Problem Preprocedural examination (Z01.818) Active confirmed 395522902359455 Problem Gastroesophageal reflux disease without esophagitis (K21.9) Active confirmed 982843214 VITAL SIGNS BMI 40.13 kg/m2 04/17/2023 Blood pressure systolic 00 mm Hg 04/17/20 23 Blood pressure diastolic 00 mm Hg 023 Height 67.75 in 04/17/2023 Temperature 97.7 degrees Fahrenheit 04/17/20 23 Weight 262 lbs 04/17/2023 Encounters Encounter Location Date Provider Diagnosis [facility] [address] [place] [address] 04/17/2023 Tashi Currie Preprocedural examin ation Z01.818 [...]
--- OUTSIDE RECORDS SUMMARY | 2024-06-23 11:54 | XMS_ITS | Clinical Summary ---
Author Organization [facility] Address [address] [place] [address] Care Team Providers Care Hotel Assistant General Manager Name Role Phone Unavailable Primary Care Provider [...]
--- OUTSIDE RECORDS SUMMARY | 2024-06-23 11:54 | XMS_ITS | Encounter Summary ---
Author Organization [facility] Address [address] [place] [address] Care Team Providers Care Hearing Impaired Teacher Name Role Phone Unavailable Primary Care Provider Unavailabl e Encounter Details Date Type Department Care Team (Late st Contact Info) Description 12/23/2021 Scanned Document [address] [address] [place] [id number] Gastroenterology, Scan Social History Tobacco Use Types [...]
--- OUTSIDE RECORDS SUMMARY | 2024-06-23 11:54 | XMS_ITS | Patient Health Record ---
Author Organization [place] [facility] Address [address] [place] [address] Care Team Providers Care International Logistics Analyst Name Role Phone Fox Ku MD Primary Care Provider Tashi Bruno Unavailable [phone] Alisha Moore Unavailable Unavailable ALLERGIES No Known Allergies RESULTS Component Value Reference Range Notes Pathology (Not yet reviewed by provider) Interpretation: Performing Lab:[facility], [address] [place] [phone] Notes/Report: Glucose, Whole Blood Reviewed date:07/13/2023 07:14:58 PM Interpretation: Performing Lab:[facility], [address] [place] [phone] Notes/Report: Glucose, Whole Blood 114 60-115 mg/dL METER # : [id number] REASON FOR REFERRAL No Information MEDICATIONS Medication [...] iron deficiency anemia type (D50.9) Active confirmed 50005863 Problem History of adenomatous polyp of colon (Z86.010) Active confirmed 293332218 Problem Colon cancer screening (Z12.11) Active confirmed 567899262 Problem Preprocedural examination (Z01.818) Active confirmed 999948950477353 Problem Gastroesophageal reflux disease without esophagitis (K21.9) Active confirmed 064050437 Problem Diverticulosis of large intestine without perforation or abscess without bleeding (K57.30) Active confirmed Diverticul ar disease of colon (814382881) Encounters Encounter Location Date Provider Diagnosis [facility] [place] [address] [place] [phone] 07/13/2023 Tashi Currie Encounter for scre ening [...] Insured Coverage Start Date Coverage End Date [facility] [employer] [facility] [address] [address] [place], [place] [id number] KIAN MAHMOOD Self - patient is the insured MEDICAID OF [employer] [address] [place] [address] [id number] KIAN MAHMOOD Self - patient is the insured MEDICAL (GENERAL) HISTORY Medical History History ICD Code IDDM Hypertension Heart murmur-Dr. Collins Asthma/COPD- Dr. Correa Pulmonary embolus in 2015--on Coumadin-- sees Dr. Moore Lung mass--surgery in 2008 a s below, with XRT; biopsied in approx 2015 and benign--followed by Dr. Tino Dimas [place],CVA,renal disease GERD--upper endoscopy August of 2017 with [...] History Surgery Date(Month/Year) Mass removed--Dr. Fields at [facility]-- Be nign , but had XRT 2008 Right inguinal hernia 1990 Ear tubes/Adenoids
--- OUTSIDE RECORDS SUMMARY | 2024-06-23 11:54 | XMS_ITS | Clinical Summary ---
Author Organization [facility] Address [address] [place] [address] Care Team Providers Care Small Arms Repairer Name Role Phone Bon Arvizu MD Primary Care Provider [phone] Allergies No known active allergies Medications Ventolin [...] Visit [facility] [address] [place] [address] Tashi Bonner MD [address] [place] [phone] Health Maintenance Due Date Last Done Comments [...] Exam 09/25/2022 Influenza Vaccine (#1) [address] [place] [address] [address] [place] [address] Care Teams Small Arms Repairer Relationship Specialty Start Date End Date Bon Arvizu MD [address] [place] [address] PCP - General Internal Medicine 06/04/22
--- OUTSIDE RECORDS SUMMARY | 2024-06-23 11:54 | XMS_ITS ---
Author Organization [facility] Address [address] [place] [address] Care Team Providers Care Manager Student Services Name Role Phone Fox Ku MD Primary Care Provider Tashi Bruno [phone] Alisha Moore Unavailable Unavailable REASON FOR VISIT [...] Date Provider Diagnosis [facility] [address] [place] [phone] 04/17/2023 Tashi Currie PLAN OF TREATMENT Medication [...]
--- OUTSIDE RECORDS SUMMARY | 2024-06-23 11:55 | XMS_ITS ---
Author Organization [facility] Address [address] [place] [address] Care Team Providers Care Custom Car Builder Name Role Phone Fox Ku MD Primary Care Provider Tashi Bruno Unavailable [phone] Alisha Moore Unavailable Unavailable REASON FOR VISIT screening,hx polyps PROBLEMS Problem Type ICD Code Onset Dates Problem Status W/U Status Risk SNOMED Code Notes Problem Diverticulosis of large intestine without perforation or abscess without bleeding (K57.30) Active confirmed Diverticul ar disease of colon (755488083) Encounters Encounter Location Date Provider Diagnosis [facility] [place] [address] [place] [phone] 07/13/2023 Tashi Currie Encounter for scre ening [...]
[2024-06-23 12:26] LABS: Appearance Urine Clear; Color Urine Yellow; Glucose Urine UA Negative (Negative); Leukocyte Esterase Urine Negative (Negative); Nitrite Urine Negative (Negative); PH 5.5 (5.0-9.0); UMIC TRIGGER UACC YES; Urine Blood Moderate (2+) (Negative); Urine Ketones Negative (Negative); Urine Protein Trace mg/dL (Neg-Trace)
[2024-06-23 12:31] LABS: Bacteria Urine None Seen (None Seen); Hyaline Casts Urine 0-2 /LPF (0-2); Squamous Epithelial Cell Urine 0-2 /HPF (0-2); WBC Urine 0-5 /HPF (0-5)
[2024-06-23 12:31] LABS: Alanine Aminotransferase 20 U/L (0-40); Albumin Level 3.7 g/dL (3.5-5.0); Alkaline Phosphatase 78 U/L (39-117); Anion Gap 12 (12-20); Aspartate Amino Transferase 23 U/L (5-37); Bilirubin Total 0.6 mg/dL (0.0-1.0); Blood Urea Nitrogen 16 mg/dL (9-16); Calcium 8.4 mg/dL (8.4-10.2); Carbon Dioxide 24 mmol/L (22-29); Chloride 108 mmol/L (96-108); Cholesterol 155 mg/dL (<200); Estimated Glomerular Filt Rate 44; Glucose Fasting 126 mg/dL (60-99); HDL Cholesterol 30 mg/dL (>40); LDL Cholesterol Calculated 74 mg/dL (<100); Potassium 3.9 mmol/L (3.3-5.1); Sodium 140 mmol/L (135-145); Total Protein 7.1 g/dL (6.5-8.0); Triglycerides 257 mg/dL (<150)
[2024-06-23 12:47] LABS: TSH reflex Free T4 2.45 uIU/mL (0.32-4.0); Vitamin D 25-OH Total 115.6 ng/mL (>30)
[2024-06-23 12:58] LABS: Creatinine Urine 183.57 mg/dL; Microalbum/Creatinine Ratio Ur 9.2 ug/mg cr (<30)
== END 2024-06-23 11:17 | disposition home or self-care (01) ==
LOC: HO.LAB 11:16
PROVIDERS: PCP Internal Medicine; Visit Provider Internal Medicine
DX: D64.9 Anemia, unspecified (principal); E78.00 Pure hypercholesterolemia, unspecified; E11.9 Type 2 diabetes mellitus without complications; E55.9 Vitamin D deficiency, unspecified
CPT/HCPCS: 36415; 80053; 80061; 81001; 82043; 82306; 82570; 83036; 84443; 85025

== ENCOUNTER 2024-06-23 11:47 | Emergency (ER) | payer OTHER, SELFPAY ==
[2024-06-23] VITALS (7 sets, daily range): BP systolic 114–133; BP diastolic 47–70; PULSE 67–104; RESP 16–18; TEMP 36.6–37.9; O2SAT 93–97; BMI 33.5
--- NOTE | ~2024-06-23 | XR_ITS ---
EXAMINATION: XR CHEST 2 VIEWS HISTORY: chest pain, cough COMPARISON: Comparison is made to prior examinations dating back to 03/13/2021. FINDINGS: PA and lateral views of the chest are submitted. There is scarring and bronchiectasis in the left lower lobe with associated volume loss and elevation of the left hemidiaphragm. The appearance is not significantly changed from the prior study dated 03/13/2021. The right lung is clear. There is no pleural effusion, pneumothorax, or pulmonary vascular congestion. The heart is normal in size. There is degenerative disc disease of the spine. XR/XR chest 2V IMPRESSION: No acute cardiopulmonary abnormality. Electronically signed by: Tashi Mason MD 06/23/2024 12:56 PM [facility]
--- NOTE | 2024-06-23 11:53 | ECG_ITS ---
Test Reason : cp Blood Pressure : */* mmHG Vent. Rate : 94 BPM Atrial Rate : 94 BPM P-R Int : 136 ms QRS Dur : 102 ms QT Int : 370 ms P-R-T Axes : 13 -10 25 degrees QTcB Int : 462 ms Sinus rhythm with occasional Premature ventricular complexes Moderate voltage criteria for LVH, may be normal variant ( R in aVL , Unity product ) Borderline ECG When compared with ECG of 19-Jun-2024 18:40, Sinus rhythm has replaced Junctional rhythm QRS axis Shifted right Referred By: Generic ED Physician Electronically Signed By: HILTON DONATO MD
--- NOTE | 2024-06-23 12:15 | ED.GENADULT ---
HPI - General Adult General Chief complaint: Chest Pain Stated complaint: Chest Pain Time Seen by Provider: 06/23/24 19:34 Source: patient, RN notes reviewed and old records reviewed Mode of arrival: ambulatory History of Present Illness ED Provider: Ramya Zarate PA-C HPI narrative: 53-year-old male with a past medical history asthma, COPD, HLD, chondrosarcoma, PE not currently anticoagulated, diabetes, HTN, GERD, CKD, presenting to the ED complaining of intermittent chest pain x today with radiation down LUE. Also reports dysuria, nausea, vomiting, and diarrhea yesterday. Admits to continued chest discomfort and nausea at present with chronic SOB. Also reports lightheadedness and room spinning dizziness, worse with position changes. Denies fever, pedal edema, sick contacts, recent travel Related Data Home Medications ?Medication ?Instructions ?Recorded ?Confirmed atenolol 25 mg tablet 25 mg PO DAILY 06/17/24 06/17/24 bupropion HCl 150 mg 24 hr tablet, 150 mg PO DAILY 06/17/24 06/17/24 extended release ferrous sulfate 325 mg (65 mg 325 mg PO DAILY 06/17/24 06/17/24 iron) tablet haloperidol 10 mg tablet 10 mg PO BEDTIME 06/17/24 06/17/24 insulin glargine-yfgn 100 unit/mL 20 unit subcut QPM 06/17/24 06/17/24 (3 mL) subcutaneous pen melatonin 3 mg tablet 6 mg PO BEDTIME 06/17/24 06/17/24 omeprazole 40 mg capsule,delayed 40 mg PO DAILY 06/17/24 06/17/24 release tamsulosin 0.4 mg capsule 0.4 mg PO BEDTIME 06/17/24 06/17/24 thiamine HCl (vitamin B1) 100 mg 100 mg PO BID 06/17/24 06/17/24 tablet trazodone 50 mg tablet 50 mg PO BEDTIME PRN insomnia 06/17/24 06/17/24 Previous Rx's ?Medication ?Instructions ?Recorded cholecalciferol (vitamin D3) 50 50 mcg PO DAILY 90 days #90 caps 10/06/23 mcg (2,000 unit) capsule metformin 1,000 mg tablet 1,000 mg PO BID 90 days #180 tabs 01/20/24 atorvastatin 40 mg tablet 40 mg PO DAILY 90 days #90 tabs 03/26/24 Ventolin HFA 90 mcg/actuation 2 puff PO Q4H PRN for wheezing #18 03/29/24 aerosol inhaler (albuterol sulfate) ea meclizine 25 mg tablet 25 mg PO TID PRN dizziness #20 tabs 05/02/24 betamethasone, augmented 0.05 % 1 appl topical BID #15 grams 06/02/24 topical cream docusate sodium 100 mg capsule 100 mg PO BEDTIME #30 caps 06/02/24 white petrolatum-mineral oil 1 appl topical TID #15 grams 06/02/24 topical cream (Dermacerin topical cream) aripiprazole 5 mg tablet (Abilify) 5 mg PO DAILY 30 days #30 tabs 06/16/24 benztropine 0.5 mg tablet 0.5 mg PO BID 30 days #60 tabs 06/16/24 hydroxyzine HCl 25 mg tablet 25 mg PO BID@0900,1700 30 days #60 06/16/24 tabs azithromycin 250 mg tablet 250 mg PO DAILY #3 tabs 06/20/24 prednisone 20 mg tablet 40 mg (2 x 20 mg) PO DAILY #6 tabs 06/20/24 albuterol sulfate 90 mcg/actuation 2 puff inhalation Q4-6H PRN 06/23/24 aerosol inhaler shortness of breath or wheezing #6.7 grams meclizine 25 mg tablet 25 mg PO TID PRN dizziness #14 tabs 06/23/24 prednisone 20 mg tablet 40 mg (2 x 20 mg) PO DAILY 5 days 06/23/24 #10 tabs Allergies Allergy/AdvReac Type Severity Reaction Status Date / Time pollen extracts [POLLEN] Allergy Mild RUNNY NOSE Verified 06/23/24 12:18 cat dander [CATS] Allergy Unknown UNKNOWN Verified 06/23/24 12:18 dog dander [DOGS] Allergy Unknown UNKNOWN Verified 06/23/24 12:18 mold [MOLD] Allergy Unknown UNKNOWN Verified 06/23/24 12:18 Review of Systems Review of Systems: Yes all other systems are reviewed and are negative Constitutional: Constitutional: Reports as per HPI Neurologic: Denies Abnormal speech present PMFSH Past Medical History Attestation statement: The following information was validated with the patient. Source: old records reviewed Medical History Recurrent major depression Allergic rhinitis Insomnia Palpitations Vitamin D deficiency Chronic kidney disease, stage III (moderate) GERD without esophagitis Restrictive lung disease Obesity (BMI 30-39.9) Benign essential hypertension Pure hypercholesterolemia Diabetes mellitus Pulmonary emboli Chondrosarcoma Hyperlipidemia Chronic restrictive lung disease COPD (chronic obstructive pulmonary disease) Asthma Surgical History History of esophagogastroduodenoscopy (EGD) H/O colonoscopy History of inguinal hernia repair Hx of exploratory thoracotomy H/O tooth extraction Family History Family History Father Hypertension Kidney failure, acute Mother Lung cancer Family/Other Diabetes Social History Social History Household Members: None Housing: Apartment Do you presently have visiting nurse or other home services: No Alcohol intake: never Patient Tobacco Use Status: Never used Tobacco e-Cigarette/Vaping Use: Never Used Second Hand Smoke Exposure: Yes Advance Directives: No Advance Directives Information Provided: Yes Do you have a plan to hurt others: No Plan service: No Current occupational status: unemployed Sexual orientation: Straight/Heterosexual Cognitive needs: No Hearing needs: No Vision needs: Yes (Glasses) Physical Exam ED Vital Signs: Vital Signs - 24 hr 06/23/24 12:14 06/23/24 20:18 06/23/24 20:32 Temperature 97.9 F 100.2 F Pulse Rate 87 67 94 Respiratory Rate 16 16 18 Blood Pressure 114/62 130/61 Pulse Oximetry 96 96 Oxygen Delivery Method Room Air Room Air 06/23/24 20:56 06/23/24 20:58 06/23/24 20:58 Temperature Pulse Rate 69 92 104 H Respiratory Rate Blood Pressure 132/64 120/70 114/63 Pulse Oximetry Oxygen Delivery Method 06/23/24 22:54 Temperature Pulse Rate 70 Respiratory Rate 16 Blood Pressure 125/47 L Pulse Oximetry 93 Oxygen Delivery Method Room Air BMI result Body Mass Index 33.5 Const General: cooperative, healthy appearing and no acute distress Orientation/consciousness: patient oriented x3 Limitations: no limitations HENMT Other: Dry mucous membranes Head: Yes normal to inspection and Yes atraumatic Ears: hearing grossly normal bilaterally General nose exam: Normal external nose present Face and sinus: Yes normal facial exam Mouth: moist mucous membranes abnormal Throat: Yes posterior oropharynx normal, Yes uvula midline and No peritonsillar mass Eyes General: appearance normal, both eyes and all related structures EOM: EOMs intact bilaterally Neck Neck: Yes normal visual inspection and Yes no meningeal signs Resp Effort & Inspection: normal respiratory effort and no respiratory distress Auscultation: wheezes expiratory wheezes and left upper Cardio Rate: regular rate Heart sounds: S1 normal heart sound present and S2 normal heart sound present GI Inspection: Yes normal to inspection Palpation (GI): Soft to palpation, nontender, no guarding and not rigid Skin Rashes: no rashes Wounds: no wounds Neuro General: patient oriented x3, gait normal, tone normal, no meningeal signs, no focal motor deficits and CN's II-XI intact bilaterally Cranial nerves: Yes CN's II-XII intact bilaterally and Yes Bilaterally intact EOM present Cognition (Neuro): normal cognition Speech: No Abnormal speech present Motor exam (neuro): 5/5 motor strength present throughout and Pronator motor function not present Coordination: [id number] test normal Romberg Test: Negative Extrem General: Yes normal to inspection Course Course Course Narrative: This is a rapid medical exam performed by Isaac Aldrich NP: Additional HPI, ROS, PE not included below will be deferred to primary provider. Patient is a 53-year-old male with history of COPD, CKD 3, asthma, chronic restrictive lung disease, PE in 2016 no longer on warfarin since 2020, HLD, chondrosarcoma, HTN, GERD presenting with complaint of chest pain which began around 930am, currently rates at 5/10. Nausea, vomiting and diarrhea, denies fevers. Some dysuria. Cough x 3 days. Plan: EKG, labs, viral panel, UA -2044--acute on chronic leukopenia. H&H at patient's baseline chronic CKD. Initial troponin negative > will obtain repeat -UA with RBCs, chronically. Not infected. -viral testing negative XR chest 2V IMPRESSION: No acute cardiopulmonary abnormality. 2122--repeat troponin without significant rise, mi unlikely. Orthostatic vital signs positive > will give IVF and repeat 2324-- ED care transferred to [facility] pending UA, repeat orthostatic vital signs after additional IVF, and re-evaluation Reevaluation(s) Reevaluation #1: I Sherin Bennett PA-C have accepted care of the patient at signed out pending fluid hydration and discharge. The patient was concurrently being treated for his asthma/COPD exacerbation, he has been here numerous times, prescribed inhalers, steroid, antibiotics, seems as if he is not managing himself at home appropriately. Heart rate improved to 70, we will discharge now Time: 23:16 Medications Administered Discontinued Medications Generic Name Dose Route Start Last Admin Trade Name Conner PRN Reason Stop Dose Admin Acetaminophen 650 mg 06/23/24 20:22 06/23/24 21:10 Acetaminophen 325 Mg Tablet PO 06/23/24 20:23 650 mg ONCE ONE Administration Albuterol Sulfate 2.5 mg/ 5 mg 06/23/24 20:32 06/23/24 20:35 Albuterol Sulfate 2.5 mg INHALE 06/23/24 20:33 5 mg ONCE ONE Administration Sodium Chloride 1,000 mls @ 999 mls/hr 06/23/24 20:15 06/23/24 22:38 Ns IV 06/23/24 21:15 Infused .Q1H1M DANIEL Infusion Sodium Chloride 1,000 mls @ 999 mls/hr 06/23/24 21:30 06/23/24 22:37 Ns IV 06/23/24 22:30 999 mls/hr .Q1H1M DANIEL Administration Meclizine HCl 25 mg 06/23/24 20:14 06/23/24 21:10 Meclizine Hcl 25 Mg Tablet PO 06/23/24 20:15 25 mg ONCE ONE Administration Prednisone 40 mg 06/23/24 20:22 06/23/24 21:10 Prednisone 20 Mg Tablet PO 06/23/24 20:23 40 mg ONCE ONE Administration Medical Decision Making Medical Decision Making MDM Narrative: 53-year-old male with a past medical history asthma, COPD, HLD, chondrosarcoma, PE not currently anticoagulated, diabetes, HTN, GERD, CKD, presenting to the ED complaining of intermittent chest pain x today with radiation down LUE. Also reports dysuria, nausea, vomiting, and diarrhea yesterday. On exam vital signs stable, NAD, nontoxic appearing, lungs with mild end expiratory wheeze appreciated in the left upper lobe. Abdomen soft and nontender. No focal neuro deficits. No appreciable pedal edema. Concern for atypical ACS vs asthma/COPD exacerbation vs viral illness vs pneumonia vs bronchitis vs gastroenteritis or UTI. Low suspicion for ACS/PE or dissection. Concern for BPPV. Unlikely CVA/TIA Plan: EKG, labs, UA, CXR, viral testing, IVF, meclizine, ED bronch protocol, p.o. prednisone, re-evaluate Please refer to course for remaining clinical decision making, interpretation of labs/imaging results, and discussions with consultants and/or family members. Differential Diagnosis Differential Diagnoses: The differential diagnosis associated with the presentation includes As above Admission/Observation Consideration of admission/observation: Escalation of care including admission/observation considered Lab Data MDM Lab Attestation statement: I reviewed the patient's lab results. 06/23/24 12:23 06/23/24 12:23 Labs: Lab Results 06/23/24 06/23/24 Range/Units 12:23 20:48 WBC 3.1 L (4.8-10.8) X10*3/uL RBC 4.72 (4.60-5.80) X10*6/uL Hgb 13.7 L (14.0-18.0) g/dl Hct 41.5 L (42.0-52.0) % MCV 87.9 (80.0-98.0) fL MCH 29.0 (27.0-33.0) pg MCHC 33.0 (31.0-36.0) g/dl RDW 15.6 (11.0-16.0) % Plt Count 207 (160-400) X10*3/uL MPV 10.1 (9.4-12.4) fL Immature Gran % (Auto) 0.3 (0.0-0.4) % Neut % (Auto) 73.0 (45-73) % Lymph % (Auto) 11.4 L (20-40) % Brooke % (Auto) 12.7 H (2-11) % Eos % (Auto) 2.3 (0-4) % Baso % (Auto) 0.3 (0-2) % Lymph # (Auto) 0.4 L (1.2-4.9) X10*3/uL Brooke # (Auto) 0.4 (0.1-1.2) X10*3/uL Eos # (Auto) 0.1 (0.0-0.4) X10*3/uL Baso # (Auto) 0.0 (0.0-0.2) X10*3/uL Abs Immat Gran (auto) 0.01 (0.00-0.03) X10*3/uL Absolute Neuts (auto) 2.3 (2.0-8.3) x10*3/uL Absolute Nucleated RBC 0.000 (0.0-0.012) X10*3/uL Nucleated RBC % (auto) 0.0 (0.0-0.2) /100WBC PT 12.1 (10.9-12.4) SEC INR 1.0 (0.9-1.1) Sodium 140 (135-145) mmol/L Potassium 3.9 (3.3-5.1) mmol/L Chloride 108 (96-108) mmol/L Carbon Dioxide 23 (22-29) mmol/L Anion Gap 13 (12-20) BUN 16 (9-16) mg/dL Creatinine 1.70 H (0.5-1.4) mg/dL Estim Creat Clear Calc 57.6 Estimated GFR 42 Random Glucose 121 H (60-115) mg/dL Calcium 8.4 (8.4-10.2) mg/dL Magnesium 1.9 (1.6-2.6) mg/dL Total Bilirubin 0.6 (0.0-1.0) mg/dL AST 24 (5-37) U/L ALT 20 (0-40) U/L Alkaline Phosphatase 78 (39-117) U/L Troponin I High Sens 4.4 5.2 (<3.5-35.0) ng/L Total Protein 7.1 (6.5-8.0) g/dL Albumin 3.8 (3.5-5.0) g/dL Lipase 21 (8-78) U/L Influenza Type A (PCR) NEGATIVE (Negative) Influenza Type B (PCR) NEGATIVE (Negative) RSV RNA Qual (PCR) NEGATIVE (Negative) SARS-CoV-2 RNA (RT-PCR) NEGATIVE (Negative) Independent Interpretation I performed an independent interpretation of an: EKG (EKG: My interpretation sinus rhythm with occasional PVCs QRS axis shifted to the right when compared to prior. No STEMI.) and Plain X-Ray Radiology Impression Discussion of test interpretation with radiology: I have reviewed the radiologist's reading. External Record Review External record reviewed: Inpatient record, Office record, Outpatient record, Prior outpatient labs, Prior outpatient radiology, Primary care record and Outside ED record Tests considered The following testing was considered but not selected: As above Prescription Management I considered prescription management with: Pain Medication and Antibiotic Chronic Conditions Patient?s care impacted by: Diabetes Social Determinants Patient?s care significantly limited by Social Determinants of Health including: Other Social Determinant of Health Discharge Plan Discharge Clinical Impression: Asthma exacerbation, Chest pain, Dizziness, Viral illness Patient Disposition: Home, Self-Care Instructions: Asthma (DC), Dizziness (ED) Additional Instructions: You likely her having an asthma exacerbation Continue taking your inhaler and use prednisone as prescribed until completion If her symptoms persist or worsen please return to the emergency department You were dehydrated, make sure you increase your fluid intake If you develop constant worsening chest pain, shortness of breath, persistent nausea/vomiting, you are unable to eat or drink return to the ED Prescriptions: New prednisone 20 mg tablet 40 mg PO DAILY 5 Days Qty: 10 0RF meclizine 25 mg tablet 25 mg PO TID PRN (Reason: dizziness) Qty: 14 0RF albuterol sulfate 90 mcg/actuation HFA aerosol inhaler 2 puff inhalation Q4-6H PRN (Reason: shortness of breath or wheezing) Qty: 6.7 0RF No Action cholecalciferol (vitamin D3) 50 mcg (2,000 unit) capsule 50 mcg PO DAILY 90 Days Qty: 90 3RF metformin 1,000 mg tablet 1,000 mg PO BID 90 Days Qty: 180 1RF atorvastatin 40 mg tablet 40 mg PO DAILY 90 Days Qty: 90 1RF albuterol sulfate [Ventolin HFA] 90 mcg/actuation HFA aerosol inhaler 2 puff PO Q4H PRN (Reason: for wheezing) Qty: 18 3RF meclizine 25 mg tablet 25 mg PO TID PRN (Reason: dizziness) Qty: 20 0RF betamethasone, augmented 0.05 % Cream 1 appl topical BID Qty: 15 0RF Protocol: Apply to: Apply to: chest wall docusate sodium 100 mg Capsule 100 mg PO BEDTIME Qty: 30 0RF Dermacerin Cream 1 appl topical TID Qty: 15 0RF Protocol: Apply to: Apply to: affected areas aripiprazole [Abilify] 5 mg Tablet 5 mg PO DAILY 30 Days Qty: 30 0RF benztropine 0.5 mg Tablet 0.5 mg PO BID 30 Days Qty: 60 0RF hydroxyzine HCl 25 mg Tablet 25 mg PO BID@0900,1700 30 Days Qty: 60 0RF thiamine HCl (vitamin B1) 100 mg tablet 100 mg PO BID melatonin 3 mg tablet 6 mg PO BEDTIME trazodone 50 mg tablet 50 mg PO BEDTIME PRN (Reason: insomnia) atenolol 25 mg tablet 25 mg PO DAILY tamsulosin 0.4 mg capsule 0.4 mg PO BEDTIME ferrous sulfate 325 mg (65 mg iron) tablet 325 mg PO DAILY omeprazole 40 mg capsule,delayed release(DR/EC) 40 mg PO DAILY haloperidol [Haldol] 10 mg Tablet 10 mg PO BEDTIME insulin glargine-yfgn 100 unit/mL (3 mL) insulin pen 20 unit subcut QPM bupropion HCl 150 mg tablet extended release 24 hr 150 mg PO DAILY prednisone 20 mg tablet 40 mg PO DAILY Qty: 6 0RF azithromycin 250 mg tablet 250 mg PO DAILY Qty: 3 0RF Rx Instructions: Patient had 1st 2 doses in the emergency department during his stay Referrals: Bon Arvizu MD [Primary Care Provider] - 5 days Print Language: Venezuelan
[2024-06-23 12:28] LABS: MANUAL DIFF FLAG NO
[2024-06-23 12:30] LABS: Basophils Percent Auto 0.3 % (0-2); Eosinophils Absolute Auto 0.1 X10*3/uL (0.0-0.4); Eosinophils Percent Auto 2.3 % (0-4); Hematocrit 41.5 % (42.0-52.0); Hemoglobin 13.7 g/dl (14.0-18.0); Imm Gran Abs Auto 0.01 X10*3/uL (0.00-0.03); Imm Gran Pct Auto 0.3 % (0.0-0.4); Lymphocytes Absolute Auto 0.4 X10*3/uL (1.2-4.9); Lymphocytes Percent Auto 11.4 % (20-40); Mean Corpuscular Volume 87.9 fL (80.0-98.0); Mean Platelet Volume 10.1 fL (9.4-12.4); Monocytes Absolute Auto 0.4 X10*3/uL (0.1-1.2); Monocytes Percent Auto 12.7 % (2-11); Neutrophils Absolute Auto 2.3 x10*3/uL (2.0-8.3); Platelet Count 207 X10*3/uL (160-400); Red Blood Count 4.72 X10*6/uL (4.60-5.80); Red Cell Distribution Width 15.6 % (11.0-16.0); White Blood Count 3.1 X10*3/uL (4.8-10.8)
[2024-06-23 12:36] LABS: Prothrombin Time 12.1 SEC (10.9-12.4)
[2024-06-23 12:43] LABS: Alanine Aminotransferase 20 U/L (0-40); Albumin Level 3.8 g/dL (3.5-5.0); Alkaline Phosphatase 78 U/L (39-117); Anion Gap 13 (12-20); Aspartate Amino Transferase 24 U/L (5-37); Bilirubin Total 0.6 mg/dL (0.0-1.0); Blood Urea Nitrogen 16 mg/dL (9-16); Calcium 8.4 mg/dL (8.4-10.2); Carbon Dioxide 23 mmol/L (22-29); Chloride 108 mmol/L (96-108); Creatinine Clr Calc Pharmacy 57.6; Estimated Glomerular Filt Rate 42; Glucose Random 121 mg/dL (60-115); Magnesium 1.9 mg/dL (1.6-2.6); Potassium 3.9 mmol/L (3.3-5.1); Sodium 140 mmol/L (135-145); Total Protein 7.1 g/dL (6.5-8.0)
[2024-06-23 12:50] LABS: Troponin-I High Sensitivity 4.4 ng/L (<3.5-35.0)
[2024-06-23 13:10] LABS: Influenza A PCR NEGATIVE (Negative); Influenza B PCR NEGATIVE (Negative); Resp Syncy Virus RNA Qual PCR NEGATIVE (Negative); SARS COV2 PCR INHOUSE NEGATIVE (Negative)
--- OUTSIDE RECORDS SUMMARY | 2024-06-23 13:18 | XMS_ITS | Clinical Summary ---
Author Organization [facility] Facility Address [address] [place] [address] Care Team Providers Care Shop And Alteration Tailor Name Role Phone Bon Arvizu MD Primary Care Provider [phone] Allergies No known active allergies Medications Ventolin [...] Visit [facility] [address] [place] [address] Tashi Bonner MD [address] [facility] [address] [place] [id number] Health Maintenance Due Date Last Done Comments [...] Exam 09/25/2022 Influenza Vaccine (#1) [address] [place] [address] [place] [address] Care Teams Shop And Alteration Tailor Relationship Specialty Start Date End Date Bon Arvizu MD [address] [place] [address] PCP - General Internal Medicine 06/04/22
--- OUTSIDE RECORDS SUMMARY | 2024-06-23 13:18 | XMS_ITS | Clinical Summary ---
Author Organization [facility] Address [address] [place] [address] Care Team Providers Care Electric Motor Assembler Name Role Phone Unavailable Primary Care Provider [...]
--- OUTSIDE RECORDS SUMMARY | 2024-06-23 13:18 | XMS_ITS | Encounter Summary ---
Author Organization [facility] Address [address] [place] [id number] Care Team Providers Care Booth Manager Name Role Phone Unavailable Primary Care Provider Unavailabl e Encounter Details Date Type Department Care Team (Late st Contact Info) Description 12/23/2021 Scanned Document [facility] [address] [place] [id number] Gastroenterology, Scan Social History Tobacco Use Types [...]
[2024-06-23 20:30] LABS: Lipase 21 U/L (8-78)
[2024-06-23] MEDS: Albuterol Sulfate 2.5 MG, Albuterol Sulfate (0.083%) 2.5 MG 5 MG INHALE (20:35)
[2024-06-23] MEDS: predniSONE 20 MG TABLET 40 MG PO (21:10)
[2024-06-23] MEDS: Meclizine HCl 25 MG TABLET PO (21:10)
[2024-06-23] MEDS: Acetaminophen 325 MG TABLET 650 MG PO (21:10)
[2024-06-23 21:17] LABS: Troponin-I High Sensitivity 5.2 ng/L (<3.5-35.0)
[2024-06-23] MEDS: 0.9 % Sodium Chloride 1,000 ML 999 ML IV ×2 (21:21→22:37)
[2024-06-24] VITALS: BP 125/56; PULSE 84
[2024-06-24 00:01] VITALS: BP 130/62; PULSE 85
[2024-06-24 00:27] LABS: Appearance Urine Clear; Color Urine Yellow; Glucose Urine UA Negative (Negative); Leukocyte Esterase Urine Negative (Negative); Nitrite Urine Negative (Negative); PH 5.5 (5.0-9.0); UMIC TRIGGER UACC YES; Urine Blood Moderate (2+) (Negative); Urine Ketones Trace mg/dL (Negative); Urine Protein Trace mg/dL (Neg-Trace)
[2024-06-24 00:32] LABS: Bacteria Urine None Seen (None Seen); RBC Urine >20 /HPF (0-2); Squamous Epithelial Cell Urine 0-2 /HPF (0-2); WBC Urine 0-5 /HPF (0-5)
[2024-06-24 00:57] VITALS: BP 130/62; PULSE 85; RESP 16; TEMP -17.7; TEMP 0; O2SAT 95
== END 2024-06-23 23:52 | disposition home or self-care (01) ==
PROVIDERS: Physician Assistant; Registered Nurse Emergency; Emergency Provider Emergency Medicine Emergency Medical Services; PCP Internal Medicine
DX: J45.901 Unspecified asthma with (acute) exacerbation (principal); R07.89 Other chest pain; R30.0 Dysuria; R11.2 Nausea with vomiting, unspecified; B34.9 Viral infection, unspecified; R42 Dizziness and giddiness; Z03.818 Encounter for observation for suspected exposure to other biological agents ruled out; Z79.899 Other long term (current) drug therapy
CPT/HCPCS: 0241U; 71046; 80053; 81001; 83690; 83735; 84484; 85025; 85610; 93005; 94640; 96360; 99285

== ENCOUNTER → 2024-06-23 11:53 | Outpatient (BNV) | payer OTHER, SELFPAY | PROVIDERS: PCP Internal Medicine; Visit Provider Internal Medicine Cardiovascular Disease | DX: I49.3 Ventricular premature depolarization (principal) | CPT/HCPCS: 93010 ==

== ENCOUNTER → 2024-06-23 12:16 | Outpatient (BNV) | payer OTHER, SELFPAY | PROVIDERS: PCP Internal Medicine; Visit Provider Radiology Diagnostic Radiology | DX: R07.9 Chest pain, unspecified (principal); R05.9 Cough, unspecified | CPT/HCPCS: 71046 ==

== ENCOUNTER 2024-06-26 12:56 | Emergency (ER) | payer OTHER, SELFPAY ==
--- NOTE | ~2024-06-26 | CT_ITS ---
CLINICAL HISTORY: neck pain s p fall CT cervical spine without contrast Comparison: CR - CERV SPINE 4 TO 5 VIEWS [id number] - 12/22/19 11:41 EDT Findings: Vertebral alignment is within normal limits. No significant degenerative change. No acute fractures or dislocations. Visualized intracranial contents are unremarkable. No cervical fluid collections or masses. No consolidation or effusion at the lung apices. IMPRESSION: No acute findings. This document has been electronically signed by: Kimberley Morris MD on 06/26/2024 15:31:48
--- NOTE | ~2024-06-26 | CT_ITS ---
CLINICAL HISTORY: fall on ice, +head strike CT head without contrast Comparison: MR - MR HEAD/BRAIN WO/W CON - 06/16/24 17:[address]/FL/SR - CT HEAD/BRAIN WO IV CON - 06/16/24 14:11 EST Findings: No intra-axial mass, midline shift, hydrocephalus, or acute hemorrhage. No significant atrophy-like change or white matter disease. There is no sinus or mastoid fluid. The orbits are unremarkable. There is no acute fracture. IMPRESSION: 1. No acute intracranial findings. This document has been electronically signed by: Kimberley Morris MD on 06/26/2024 15:40:20
[2024-06-26 13:05] VITALS: BP 117/83; PULSE 88; RESP 18; TEMP 35.8; O2SAT 98; BMI 38.5
--- NOTE | 2024-06-26 13:06 | ED_ITS ---
HPI - Head Injury General Chief complaint: Fall Stated complaint: fall, head inj Time Seen by Provider: 06/26/24 17:25 Source: patient, RN notes reviewed and old records reviewed Mode of arrival: ambulatory History of Present Illness ED Provider: Ramya Zarate PA-C HPI Narrative: 53-year-old male with a past medical history of asthma, COPD, chondrosarcoma, PE not currently anticoagulated, diabetes, HTN, GERD, CKD, presenting to the ED complaining of headache and dizziness s/p mechanical slip and fall on ice [employer] with positive head strike and + LOC. denies anticoagulation use. Denies injury to other area. Does report some neck pain. Denies back pain, CP/SOB, symptoms prior to fall MD Complaint: head injury Related Data Home Medications ?Medication ?Instructions ?Recorded ?Confirmed atenolol 25 mg tablet 25 mg PO DAILY 06/17/24 06/17/24 bupropion HCl 150 mg 24 hr tablet, 150 mg PO DAILY 06/17/24 06/17/24 extended release ferrous sulfate 325 mg (65 mg 325 mg PO DAILY 06/17/24 06/17/24 iron) tablet haloperidol 10 mg tablet 10 mg PO BEDTIME 06/17/24 06/17/24 insulin glargine-yfgn 100 unit/mL 20 unit subcut QPM 06/17/24 06/17/24 (3 mL) subcutaneous pen melatonin 3 mg tablet 6 mg PO BEDTIME 06/17/24 06/17/24 omeprazole 40 mg capsule,delayed 40 mg PO DAILY 06/17/24 06/17/24 release tamsulosin 0.4 mg capsule 0.4 mg PO BEDTIME 06/17/24 06/17/24 thiamine HCl (vitamin B1) 100 mg 100 mg PO BID 06/17/24 06/17/24 tablet trazodone 50 mg tablet 50 mg PO BEDTIME PRN insomnia 06/17/24 06/17/24 Previous Rx's ?Medication ?Instructions ?Recorded cholecalciferol (vitamin D3) 50 50 mcg PO DAILY 90 days #90 caps 10/06/23 mcg (2,000 unit) capsule metformin 1,000 mg tablet 1,000 mg PO BID 90 days #180 tabs 01/20/24 atorvastatin 40 mg tablet 40 mg PO DAILY 90 days #90 tabs 03/26/24 Ventolin HFA 90 mcg/actuation 2 puff PO Q4H PRN for wheezing #18 03/29/24 aerosol inhaler (albuterol sulfate) ea meclizine 25 mg tablet 25 mg PO TID PRN dizziness #20 tabs 05/02/24 betamethasone, augmented 0.05 % 1 appl topical BID #15 grams 06/02/24 topical cream docusate sodium 100 mg capsule 100 mg PO BEDTIME #30 caps 06/02/24 white petrolatum-mineral oil 1 appl topical TID #15 grams 06/02/24 topical cream (Dermacerin topical cream) aripiprazole 5 mg tablet (Abilify) 5 mg PO DAILY 30 days #30 tabs 06/16/24 benztropine 0.5 mg tablet 0.5 mg PO BID 30 days #60 tabs 06/16/24 hydroxyzine HCl 25 mg tablet 25 mg PO BID@0900,1700 30 days #60 06/16/24 tabs azithromycin 250 mg tablet 250 mg PO DAILY #3 tabs 06/20/24 prednisone 20 mg tablet 40 mg (2 x 20 mg) PO DAILY #6 tabs 06/20/24 albuterol sulfate 90 mcg/actuation 2 puff inhalation Q4-6H PRN 06/23/24 aerosol inhaler shortness of breath or wheezing #6.7 grams meclizine 25 mg tablet 25 mg PO TID PRN dizziness #14 tabs 06/23/24 prednisone 20 mg tablet 40 mg (2 x 20 mg) PO DAILY 5 days 06/23/24 #10 tabs Allergies Allergy/AdvReac Type Severity Reaction Status Date / Time pollen extracts [POLLEN] Allergy Mild RUNNY NOSE Verified 06/26/24 13:08 cat dander [CATS] Allergy Unknown UNKNOWN Verified 06/26/24 13:08 dog dander [DOGS] Allergy Unknown UNKNOWN Verified 06/26/24 13:08 mold [MOLD] Allergy Unknown UNKNOWN Verified 06/26/24 13:08 Review of Systems Review of Systems: Yes all other systems are reviewed and are negative Constitutional: Constitutional: Reports as per HPI Neurologic: Denies Abnormal speech present PMFSH Past Medical History Attestation statement: The following information was validated with the patient. Source: old records reviewed Medical History Psychosis Chest pain Suicidal ideation Recurrent major depression Allergic rhinitis Insomnia Palpitations Vitamin D deficiency Chronic kidney disease, stage III (moderate) GERD without esophagitis Restrictive lung disease Obesity (BMI 30-39.9) Benign essential hypertension Pure hypercholesterolemia Diabetes mellitus Pulmonary emboli Chondrosarcoma Hyperlipidemia Chronic restrictive lung disease COPD (chronic obstructive pulmonary disease) Asthma Surgical History History of esophagogastroduodenoscopy (EGD) H/O colonoscopy History of inguinal hernia repair Hx of exploratory thoracotomy H/O tooth extraction Family History Family History Father Hypertension Kidney failure, acute Mother Lung cancer Family/Other Diabetes Social History Social History Household Members: None Housing: Apartment Do you presently have visiting nurse or other home services: No Alcohol intake: never Patient Tobacco Use Status: Never used Tobacco e-Cigarette/Vaping Use: Never Used Second Hand Smoke Exposure: Yes Advance Directives: No Advance Directives Information Provided: No service: No Current occupational status: unemployed Sexual orientation: Straight/Heterosexual Cognitive needs: No Hearing needs: No Vision needs: Yes (Glasses) Physical Exam Vital Signs: Vital Signs: Last Vital Signs Temp 96.4 F L 06/26/24 18:04 Pulse 88 06/26/24 18:04 Resp 18 06/26/24 18:04 BP 117/83 06/26/24 18:04 Pulse Ox 98 06/26/24 18:04 O2 Del Method Room Air 06/26/24 18:04 BMI result Body Mass Index 38.5 Const: General: cooperative, healthy appearing and no acute distress Orientation/consciousness: patient oriented x3 Limitations: no limitations HEENT: Head: Yes normal to inspection and Yes atraumatic Ears: hearing grossly normal bilaterally General nose exam: Normal external nose present Face and sinus: Yes normal facial exam Eyes: General: appearance normal, both eyes and all related structures EOM: EOMs intact bilaterally Neck: Other: + midline lower cervical spinous tendern ess. Bilateral paraspinal cervical tenderness appreciated. Neck: Yes normal visual inspection and Yes no meningeal signs Resp: Effort & Inspection: normal respiratory effort and no respiratory distress Cardio: Rate: regular rate GI: Inspection: Yes normal to inspection Palpation (GI): Soft to palpation, nontender, no guarding and not rigid Back/Spine/Pelvis: Other: No midline thoracic/lumbar spinous tenderness/step-off or deformity Skin: Rashes: no rashes Wounds: no wounds Neuro: General: patient oriented x3, gait normal, tone normal, moves all extremities, no meningeal signs, no focal motor deficits and CN's II-XI intact bilaterally Cranial nerves: Yes CN's II-XII intact bilaterally and Yes Bilaterally intact EOM present Cognition (Neuro): normal cognition Speech: No Abnormal speech present Gait exam (Neuro): Normal gait present Motor exam (neuro): 5/5 motor strength present throughout and no tremor noted Extrem: General: Yes normal to inspection Course Course Course Narrative: This is a Rapid Medical Exam performed in triage by Ramya Zarate PA-C. Full HPI, ROS and PE to be performed by primary ED provider. 53-year-old male with a past medical history asthma, COPD, HLD, chondrosarcoma, PE not currently anticoagulated, diabetes, HTN, GERD, CKD, presenting to the ED complaining of headache and dizziness s/p mechanical slip and fall on ice [employer] with + head strike. +LOC. Denies anticoagulation use. PE: No appreciable head trauma. + midline cervical spinous and paraspinal tenderness Plan: Head/C-spine CT CT head/brain wo IV con IMPRESSION: 1. No acute intracranial findings. CT cervical spine wo IV con IMPRESSION: No acute findings. Results discussed with patient including worrisome signs and symptoms and strict return precautions, and when to return to the emergency department. They verbalized understanding and feel safe for discharge at this time. Medical Decision Making Medical Decision Making MDM Narrative: 53-year-old male with a past medical history of asthma, COPD, chondrosarcoma, PE not currently anticoagulated, diabetes, HTN, GERD, CKD, presenting to the ED complaining of headache and dizziness s/p mechanical slip and fall on ice [employer] with positive head strike and + LOC. On exam VSS, NAD, nontoxic appearing, + midline cervical spinous tenderness in bilateral cervical paraspinal tenderness. No evidence of head trauma/hematoma or laceration. No focal neuro deficits. Concern for ICH vs fractures vs concussion/contusion. Plan: Head/C-spine CT Please refer to course for remaining clinical decision making, interpretation of labs/imaging results, and discussions with consultants and/or family members. Differential Diagnosis Differential Diagnoses: The differential diagnosis associated with the presentation includes As above Independent Interpretation I performed an independent interpretation of an: CT Scan Radiology Impression Discussion of test interpretation with radiology: I have reviewed the radiologist's reading. Independent Historian Clinical information obtained from an independent historian. History obtained from or confirmed by: Other External Record Review External record reviewed: Inpatient record, Office record, Outpatient record, Prior outpatient labs, Prior outpatient radiology, Primary care record and Outside ED record Tests considered The following testing was considered but not selected: As above Prescription Management I considered prescription management with: Other Chronic Conditions Patient?s care impacted by: Other Social Determinants Patient?s care significantly limited by Social Determinants of Health including: Inadequate housing, Low income, Problems related to primary support group, Unemployment and Other Social Determinant of Health Discharge Plan Discharge Clinical Impression: Head injury Patient Disposition: Home, Self-Care Instructions: Head Injury (ED) Additional Instructions: Your CT scans were unremarkable. Please have close follow-up with your primary care doctor Take Tylenol and ibuprofen at home for headache If her headache persists or worsens/becomes unbearable, you persistent or worsening nausea, vomiting, weakness, vision change or loss return to the ED immediately Prescriptions: No Action cholecalciferol (vitamin D3) 50 mcg (2,000 unit) capsule 50 mcg PO DAILY 90 Days Qty: 90 3RF metformin 1,000 mg tablet 1,000 mg PO BID 90 Days Qty: 180 1RF atorvastatin 40 mg tablet 40 mg PO DAILY 90 Days Qty: 90 1RF albuterol sulfate [Ventolin HFA] 90 mcg/actuation HFA aerosol inhaler 2 puff PO Q4H PRN (Reason: for wheezing) Qty: 18 3RF meclizine 25 mg tablet 25 mg PO TID PRN (Reason: dizziness) Qty: 20 0RF betamethasone, augmented 0.05 % Cream 1 appl topical BID Qty: 15 0RF Protocol: Apply to: Apply to: chest wall docusate sodium 100 mg Capsule 100 mg PO BEDTIME Qty: 30 0RF Dermacerin Cream 1 appl topical TID Qty: 15 0RF Protocol: Apply to: Apply to: affected areas aripiprazole [Abilify] 5 mg Tablet 5 mg PO DAILY 30 Days Qty: 30 0RF benztropine 0.5 mg Tablet 0.5 mg PO BID 30 Days Qty: 60 0RF hydroxyzine HCl 25 mg Tablet 25 mg PO BID@0900,1700 30 Days Qty: 60 0RF thiamine HCl (vitamin B1) 100 mg tablet 100 mg PO BID melatonin 3 mg tablet 6 mg PO BEDTIME trazodone 50 mg tablet 50 mg PO BEDTIME PRN (Reason: insomnia) atenolol 25 mg tablet 25 mg PO DAILY tamsulosin 0.4 mg capsule 0.4 mg PO BEDTIME ferrous sulfate 325 mg (65 mg iron) tablet 325 mg PO DAILY omeprazole 40 mg capsule,delayed release(DR/EC) 40 mg PO DAILY haloperidol [Haldol] 10 mg Tablet 10 mg PO BEDTIME insulin glargine-yfgn 100 unit/mL (3 mL) insulin pen 20 unit subcut QPM bupropion HCl 150 mg tablet extended release 24 hr 150 mg PO DAILY prednisone 20 mg tablet 40 mg PO DAILY Qty: 6 0RF azithromycin 250 mg tablet 250 mg PO DAILY Qty: 3 0RF Rx Instructions: Patient had 1st 2 doses in the emergency department during his stay prednisone 20 mg tablet 40 mg PO DAILY 5 Days Qty: 10 0RF meclizine 25 mg tablet 25 mg PO TID PRN (Reason: dizziness) Qty: 14 0RF albuterol sulfate 90 mcg/actuation HFA aerosol inhaler 2 puff inhalation Q4-6H PRN (Reason: shortness of breath or wheezing) Qty: 6.7 0RF Referrals: Bon Arvizu MD [Primary Care Provider] - 3 days Interventions: ED Discharge Assessment Last Done: 06/26/24 18:04 Discharge Date/Time: 06/26/24 18:04 Print Language: Kiswahili
[2024-06-26 18:04] VITALS: BP 117/83; PULSE 88; RESP 18; TEMP 35.8; O2SAT 98
== END 2024-06-26 18:04 | disposition home or self-care (01) ==
PROVIDERS: Emergency Provider Emergency Medicine Emergency Medical Services; PCP Internal Medicine
DX: S09.90XA Unspecified injury of head, initial encounter (principal); R51.9 Headache, unspecified; M54.2 Cervicalgia; J44.9 Chronic obstructive pulmonary disease, unspecified; R42 Dizziness and giddiness; W00.0XXA Fall on same level due to ice and snow, initial encounter; Y93.9 Activity, unspecified; Y92.007 Garden or yard of unspecified non-institutional (private) residence as the place of occurrence of the external cause; Y99.8 Other external cause status; Z79.899 Other long term (current) drug therapy
CPT/HCPCS: 70450; 72125; 99282; 99284

== ENCOUNTER → 2024-06-26 13:08 | Outpatient (BNV) | payer OTHER, SELFPAY | PROVIDERS: PCP Internal Medicine; Visit Provider Nuclear Medicine | DX: M54.2 Cervicalgia (principal); S09.90XA Unspecified injury of head, initial encounter | CPT/HCPCS: 70450; 72125 ==

== ENCOUNTER 2024-06-27 15:10 | Emergency (ER) | payer OTHER, SELFPAY ==
[2024-06-27 15:28] VITALS: BP 109/70; PULSE 75; RESP 18; TEMP 36.6; O2SAT 99; BMI 33.9
--- NOTE | 2024-06-27 15:31 | ED_ITS ---
HPI - Psych General Chief Complaint: Psychiatric Symptoms Stated Complaint: Depression Time Seen by Provider: 06/27/24 16:06 Source: patient, RN notes reviewed and old records reviewed Mode of arrival: ambulatory Limitations: no limitations History of Present Illness ED Provider: Waqar HPI Narrative: 53-year-old male with past medical history significant for depression, mood disorder, anxiety, COPD, chronic kidney disease, hypertension and diabetes presents for evaluation depression. Patient was seen here yesterday after slipping and falling, he had x-rays, CT scan of his brain and cervical spine all of which did not show any evidence of traumatic injury. Today he was here because he is having depression with suicidal thoughts. He reports that he occasionally cuts himself but has not done so today He was requesting ?to go upstairs for a day or 2 because I do not feel safe. ? He has no other complaints or concerns at this time Related Data Home Medications ?Medication ?Instructions ?Recorded ?Confirmed atenolol 25 mg tablet 25 mg PO DAILY 06/17/24 06/27/24 bupropion HCl 150 mg 24 hr tablet, 150 mg PO DAILY 06/17/24 06/27/24 extended release ferrous sulfate 325 mg (65 mg 325 mg PO DAILY 06/17/24 06/27/24 iron) tablet haloperidol 10 mg tablet 10 mg PO BEDTIME 06/17/24 06/27/24 insulin glargine-yfgn 100 unit/mL 20 unit subcut QPM 06/17/24 06/27/24 (3 mL) subcutaneous pen melatonin 3 mg tablet 6 mg PO BEDTIME 06/17/24 06/27/24 omeprazole 40 mg capsule,delayed 40 mg PO DAILY 06/17/24 06/27/24 release tamsulosin 0.4 mg capsule 0.4 mg PO BEDTIME 06/17/24 06/27/24 thiamine HCl (vitamin B1) 100 mg 100 mg PO BID 06/17/24 06/27/24 tablet trazodone 50 mg tablet 50 mg PO BEDTIME PRN insomnia 06/17/24 06/27/24 Previous Rx's ?Medication ?Instructions ?Recorded cholecalciferol (vitamin D3) 50 50 mcg PO DAILY 90 days #90 caps 10/06/23 mcg (2,000 unit) capsule metformin 1,000 mg tablet 1,000 mg PO BID 90 days #180 tabs 01/20/24 atorvastatin 40 mg tablet 40 mg PO DAILY 90 days #90 tabs 03/26/24 Ventolin HFA 90 mcg/actuation 2 puff PO Q4H PRN for wheezing #18 03/29/24 aerosol inhaler (albuterol sulfate) ea meclizine 25 mg tablet 25 mg PO TID PRN dizziness #20 tabs 05/02/24 betamethasone, augmented 0.05 % 1 appl topical BID #15 grams 06/02/24 topical cream docusate sodium 100 mg capsule 100 mg PO BEDTIME #30 caps 06/02/24 white petrolatum-mineral oil 1 appl topical TID #15 grams 06/02/24 topical cream (Dermacerin topical cream) aripiprazole 5 mg tablet (Abilify) 5 mg PO DAILY 30 days #30 tabs 06/16/24 benztropine 0.5 mg tablet 0.5 mg PO BID 30 days #60 tabs 06/16/24 hydroxyzine HCl 25 mg tablet 25 mg PO BID@0900,1700 30 days #60 06/16/24 tabs azithromycin 250 mg tablet 250 mg PO DAILY #3 tabs 06/20/24 prednisone 20 mg tablet 40 mg (2 x 20 mg) PO DAILY #6 tabs 06/20/24 albuterol sulfate 90 mcg/actuation 2 puff inhalation Q4-6H PRN 06/23/24 aerosol inhaler shortness of breath or wheezing #6.7 grams meclizine 25 mg tablet 25 mg PO TID PRN dizziness #14 tabs 06/23/24 prednisone 20 mg tablet 40 mg (2 x 20 mg) PO DAILY 5 days 06/23/24 #10 tabs Allergies Allergy/AdvReac Type Severity Reaction Status Date / Time pollen extracts [POLLEN] Allergy Mild RUNNY NOSE Verified 06/27/24 15:30 cat dander [CATS] Allergy Unknown UNKNOWN Verified 06/27/24 15:30 dog dander [DOGS] Allergy Unknown UNKNOWN Verified 06/27/24 15:30 mold [MOLD] Allergy Unknown UNKNOWN Verified 06/27/24 15:30 Review of Systems 2 Constitutional: Constitutional: Denies body ache(s), Denies chills, Denies daytime sleepiness and Denies fever(s) Eyes: Eyes: Denies blurry vision ENT: Denies vertigo and Denies dizziness Cardiovascular: Cardiovascular: Denies chest pain and Denies dyspnea Respiratory: Respiratory: Denies cough and Denies dyspnea Gastrointestinal: Gastrointestinal: Denies abdominal pain, Denies nausea and Denies vomiting Musculoskeletal: Musculoskeletal: Denies back pain Integumentary/Breasts: Skin/Breast: Denies rash Neurologic: Denies vertigo and Denies dizziness Psychiatric: Psychiatric: Reports anxiety, Reports depression, Denies auditory hallucinations and Reports suicidal ideation [facility] Past Medical History Medical History Psychosis Chest pain Suicidal ideation Recurrent major depression Allergic rhinitis Insomnia Palpitations Vitamin D deficiency Chronic kidney disease, stage III (moderate) GERD without esophagitis Restrictive lung disease Obesity (BMI 30-39.9) Benign essential hypertension Pure hypercholesterolemia Diabetes mellitus Pulmonary emboli Chondrosarcoma Hyperlipidemia Chronic restrictive lung disease COPD (chronic obstructive pulmonary disease) Asthma Surgical History History of esophagogastroduodenoscopy (EGD) H/O colonoscopy History of inguinal hernia repair Hx of exploratory thoracotomy H/O tooth extraction Family History Family History Father Hypertension Kidney failure, acute Mother Lung cancer Family/Other Diabetes Social History Social History Household Members: None Housing: Apartment Do you presently have visiting nurse or other home services: No Alcohol intake: never Patient Tobacco Use Status: Never used Tobacco Smoked in Last 30 Days: No e-Cigarette/Vaping Use: Never Used Second Hand Smoke Exposure: Yes Use of substances other than those prescribed or required for medical reasons: No Advance Directives: No Advance Directives Information Provided: No Do you have a plan to hurt others: No Plan service: No Current occupational status: unemployed Sexual orientation: Straight/Heterosexual Cognitive needs: No Hearing needs: No Vision needs: Yes (Glasses) Physical Exam 2 Vital Signs: Vital Signs: Last Vital Signs Temp 98 F 06/27/24 15:28 Pulse 75 06/27/24 15:28 Resp 16 06/27/24 16:58 BP 109/70 06/27/24 15:28 Pulse Ox 99 06/27/24 15:28 BMI result Body Mass Index 33.9 Const: General: healthy appearing, comfortable, no acute distress, alert and awake Nutritional Appearance: well nourished Orientation/consciousness: p atient oriented x3 HEENT: Head: Yes normocephalic and Yes atraumatic Eyes: Eyelids: Yes eyelids normal Conjunctivae: conjunctivae normal S clerae: sclerae normal Corneas: corneas normal Pupils: Equal, round and reactive pupils present EOM: EOMs intact bilaterally Neck: Neck: Yes full ROM Resp: Effort & Inspection: normal respiratory effort, able to speak in complete sentences and not labored Skin: General skin exam: elasticity normal Neuro: General: patient oriented x3 Cranial nerves: Yes CN's II-XII intact bilaterally, Yes Equal, round and reactive pupils present and Yes Bilaterally intact EOM present Cognition (Neuro): normal cognition Course Course Course Narrative: This is an RME: Additional HPI, ROS, PE not included below will be deferred to primary provider. RME assessment and note performed by: Lyndsey Cody PA-C This is a 53-year-old male, with a hx of MDD and CATIE, who presents emergency department with concerns for suicidal thoughts. Also reporting slip and fall with a right shoulder pain. Plan: Pt to be brought back to pod Medical Decision Making Medical Decision Making MDM Narrative: 53-year-old male presents for evaluation of depression with suicidal ideation. He has no concerning lab abnormalities, he does have a history of chronic kidney disease and consistent with his baseline. He is well-appearing with no somatic complaints. He was medical cleared for care team evaluation. He was seen with the care team and cleared for discharge to the community. He did contract for safety and has multiple outpatient referrals Differential Diagnosis Differential Diagnoses: The differential diagnosis associated with the presentation includes Depression Suicidal ideation Medication noncompliance Mood disorder Lab Data [facility] Lab Attestation statement: I reviewed the patient's lab results. No leukocytosis or anemia. Normal platelet count. No electrolyte abnormalities. Stable chronic kidney disease as described above 06/27/24 16:09 06/27/24 16:09 Labs: Lab Results 06/27/24 Range/Units 16:09 WBC 4.8 (4.8-10.8) X10*3/uL RBC 4.86 (4.60-5.80) X10*6/uL Hgb 14.0 (14.0-18.0) g/dl Hct 43.1 (42.0-52.0) % MCV 88.7 (80.0-98.0) fL MCH 28.8 (27.0-33.0) pg MCHC 32.5 (31.0-36.0) g/dl RDW 15.4 (11.0-16.0) % Plt Count 258 (160-400) X10*3/uL MPV 10.4 (9.4-12.4) fL Immature Gran % (Auto) 0.2 (0.0-0.4) % Neut % (Auto) 62.9 (45-73) % Lymph % (Auto) 27.2 (20-40) % Kidder % (Auto) 8.5 (2-11) % Eos % (Auto) 1.0 (0-4) % Baso % (Auto) 0.2 (0-2) % Lymph # (Auto) 1.3 (1.2-4.9) X10*3/uL Kidder # (Auto) 0.4 (0.1-1.2) X10*3/uL Eos # (Auto) 0.1 (0.0-0.4) X10*3/uL Baso # (Auto) 0.0 (0.0-0.2) X10*3/uL Abs Immat Gran (auto) 0.01 (0.00-0.03) X10*3/uL Absolute Neuts (auto) 3.0 (2.0-8.3) x10*3/uL Absolute Nucleated RBC 0.000 (0.0-0.012) X10*3/uL Nucleated RBC % (auto) 0.0 (0.0-0.2) /100WBC Sodium 143 (135-145) mmol/L Potassium 4.2 (3.3-5.1) mmol/L Chloride 111 H (96-108) mmol/L Carbon Dioxide 23 (22-29) mmol/L Anion Gap 13 (12-20) BUN 11 (9-16) mg/dL Creatinine 1.50 H (0.5-1.4) mg/dL Estim Creat Clear Calc 65.6 Estimated GFR 49 Random Glucose 70 (60-115) mg/dL Calcium 8.8 (8.4-10.2) mg/dL Total Bilirubin 0.6 (0.0-1.0) mg/dL AST 18 (5-37) U/L ALT 16 (0-40) U/L Alkaline Phosphatase 78 (39-117) U/L Total Protein 7.0 (6.5-8.0) g/dL Albumin 3.7 (3.5-5.0) g/dL Salicylates < 5.0 L (15-30) mg/dL Acetaminophen < 3 (<30) mcg/mL Ethyl Alcohol < 10 mg/dL Discharge Plan Discharge Clinical Impression: Depression Patient Disposition: Home, Self-Care Instructions: Depression (ED) Additional Instructions: You were cleared by the care team for discharge. Follow all instructions of the care team. Return for new or worsening symptoms Prescriptions: No Action cholecalciferol (vitamin D3) 50 mcg (2,000 unit) capsule 50 mcg PO DAILY 90 Days Qty: 90 3RF metformin 1,000 mg tablet 1,000 mg PO BID 90 Days Qty: 180 1RF atorvastatin 40 mg tablet 40 mg PO DAILY 90 Days Qty: 90 1RF albuterol sulfate [Ventolin HFA] 90 mcg/actuation HFA aerosol inhaler 2 puff PO Q4H PRN (Reason: for wheezing) Qty: 18 3RF meclizine 25 mg tablet 25 mg PO TID PRN (Reason: dizziness) Qty: 20 0RF betamethasone, augmented 0.05 % Cream 1 appl topical BID Qty: 15 0RF Protocol: Apply to: Apply to: chest wall docusate sodium 100 mg Capsule 100 mg PO BEDTIME Qty: 30 0RF Dermacerin Cream 1 appl topical TID Qty: 15 0RF Protocol: Apply to: Apply to: affected areas aripiprazole [Abilify] 5 mg Tablet 5 mg PO DAILY 30 Days Qty: 30 0RF benztropine 0.5 mg Tablet 0.5 mg PO BID 30 Days Qty: 60 0RF hydroxyzine HCl 25 mg Tablet 25 mg PO BID@0900,1700 30 Days Qty: 60 0RF thiamine HCl (vitamin B1) 100 mg tablet 100 mg PO BID melatonin 3 mg tablet 6 mg PO BEDTIME trazodone 50 mg tablet 50 mg PO BEDTIME PRN (Reason: insomnia) atenolol 25 mg tablet 25 mg PO DAILY tamsulosin 0.4 mg capsule 0.4 mg PO BEDTIME ferrous sulfate 325 mg (65 mg iron) tablet 325 mg PO DAILY omeprazole 40 mg capsule,delayed release(DR/EC) 40 mg PO DAILY haloperidol [Haldol] 10 mg Tablet 10 mg PO BEDTIME insulin glargine-yfgn 100 unit/mL (3 mL) insulin pen 20 unit subcut QPM bupropion HCl 150 mg tablet extended release 24 hr 150 mg PO DAILY prednisone 20 mg tablet 40 mg PO DAILY Qty: 6 0RF azithromycin 250 mg tablet 250 mg PO DAILY Qty: 3 0RF Rx Instructions: Patient had 1st 2 doses in the emergency department during his stay prednisone 20 mg tablet 40 mg PO DAILY 5 Days Qty: 10 0RF meclizine 25 mg tablet 25 mg PO TID PRN (Reason: dizziness) Qty: 14 0RF albuterol sulfate 90 mcg/actuation HFA aerosol inhaler 2 puff inhalation Q4-6H PRN (Reason: shortness of breath or wheezing) Qty: 6.7 0RF Interventions: [place]-Suicide Risk Severity Scale Last Done: 06/27/24 16:58 Print Language: German
--- OUTSIDE RECORDS SUMMARY | 2024-06-27 15:35 | XMS_ITS | Encounter Summary ---
Author Organization [facility] Address [address] [place] [address] Care Team Providers Care Electric Range Servicer Name Role Phone Unavailable Primary Care Provider Unavailabl e Encounter Details Date Type Department Care Team (Late st Contact Info) Description 12/23/2021 Scanned Document [facility] [address] [place] [id number] Gastroenterology, Scan Social History Tobacco Use Types [...]
--- OUTSIDE RECORDS SUMMARY | 2024-06-27 15:35 | XMS_ITS ---
Author Organization [facility] Address [address] [place] [address] Care Team Providers Care Gymnastic Coach Name Role Phone Fox Ku MD Primary Care Provider Tashi Bruno Unavailable [phone] Alisha Moore Unavailable Unavailable ALLERGIES No Known [...] adenomatous polyp of colon (Z86.010) Active confirmed 281182007 Problem Colon cancer screening (Z12.11) Active confirmed 831082888 Problem Preprocedural examination (Z01.818) Active confirmed 356743446304574 Problem Gastroesophageal reflux disease without esophagitis (K21.9) Active confirmed 090535767 VITAL SIGNS BMI 40.13 kg/m2 04/17/2023 Blood pressure systolic 00 mm Hg 04/17/20 23 Blood pressure diastolic 00 mm Hg 023 Height 67.75 in 04/17/2023 Temperature 97.7 degrees Fahrenheit 04/17/20 23 Weight 262 lbs 04/17/2023 Encounters Encounter Location Date Provider Diagnosis [facility] [address] [place] [address] 04/17/2023 Tashi Currie Preprocedural examin ation Z01.818 [...]
--- OUTSIDE RECORDS SUMMARY | 2024-06-27 15:35 | XMS_ITS | Patient Health Record ---
Author Organization [facility] Address [address] [place] [address] Care Team Providers Care Back Stayer Name Role Phone Fox Ku MD Primary Care Provider Tashi Bruno Unavailable [phone] Alisha Moore Unavailable Unavailable ALLERGIES No Known Allergies RESULTS Component Value Reference Range Notes Pathology (Not yet reviewed by provider) Interpretation: Performing Lab:[facility], [address] [place] [id number] Notes/Report: Glucose, Whole Blood Reviewed date:07/13/2023 07:14:58 PM Interpretation: Performing Lab:[facility], [address] [place] [phone] Notes/Report: Glucose, Whole Blood 114 60-115 mg/dL METER # : [id number] REASON FOR REFERRAL No Information MEDICATIONS Medication [...] iron deficiency anemia type (D50.9) Active confirmed 26691600 Problem History of adenomatous polyp of colon (Z86.010) Active confirmed 476955028 Problem Colon cancer screening (Z12.11) Active confirmed 196187305 Problem Preprocedural examination (Z01.818) Active confirmed 688963508460042 Problem Gastroesophageal reflux disease without esophagitis (K21.9) Active confirmed 312918981 Problem Diverticulosis of large intestine without perforation or abscess without bleeding (K57.30) Active confirmed Diverticul ar disease of colon (562004324) Encounters Encounter Location Date Provider Diagnosis [facility] Outpatient [address] [place] [phone] 07/13/2023 Tashi Currie Encounter for scre ening [...] Coverage Start Date Coverage End Date [facility] [address] [address] [place], [place] [id number] KIAN MAHMOOD Self - patient is the insured MEDICAID OF [employer] [address] [place] [address] [id number] KIAN MAHMOOD Self - patient is the insured MEDICAL (GENERAL) HISTORY Medical History History ICD Code IDDM Hypertension Heart murmur-Dr. Collins Asthma/COPD- Dr. Correa Pulmonary embolus in 2015--on Coumadin-- sees Dr. Moore Lung mass--surgery in 2008 a s below, with XRT; biopsied in approx 2015 and benign--followed by Dr. Tino Dimas ID,CVA,renal disease GERD--upper endoscopy August of 2017 with [...] History Surgery Date(Month/Year) Mass removed--Dr. Fields at [facility]-- Be nign , but had XRT 2008 Right inguinal hernia 1990 Ear tubes/Adenoids
--- OUTSIDE RECORDS SUMMARY | 2024-06-27 15:35 | XMS_ITS | Clinical Summary ---
Author Organization [facility] Address [address] [place] [address] Care Team Providers Care Wax Molder Name Role Phone Unavailable Primary Care Provider [...]
--- OUTSIDE RECORDS SUMMARY | 2024-06-27 15:35 | XMS_ITS | Clinical Summary ---
Author Organization [facility] Address [address] [place] [address] Care Team Providers Care Tank Assembler Name Role Phone Bon Arvizu MD Primary Care Provider [phone] Allergies No known active allergies Medications Ventolin [...] Care Team (Late st Contact Info) Description 07/27/2024 Orders Only [facility] [address] [place] [address] Tashi Bonner MD [address] [address] Stage 3a chronic kidney disease (HCC); Type 2 diabetes mellitus with diabetic chronic kidney disease (HCC) 08/04/2024 1:15 PM EDT Office Visit [facility] [address] [place] [address] Tashi Bonner MD [address] [address] Health Maintenance Due Date Last Done Comments [...] Exam 09/25/2022 Influenza Vaccine (#1) [address] [address] [place] [address] Care Teams Tank Assembler Relationship Specialty Start Date End Date Bon Arvizu MD [address] [place] [address] PCP - General Internal Medicine 06/04/22
--- OUTSIDE RECORDS SUMMARY | 2024-06-27 15:36 | XMS_ITS ---
Author Organization [facility] Address [address] [place] [address] Care Team Providers Care Steel Placer Name Role Phone Fox Ku MD Primary Care Provider Tashi Bruno Unavailable [phone] Alisha Moore Unavailable Unavailable REASON FOR VISIT screening,hx polyps PROBLEMS Problem Type ICD Code Onset Dates Problem Status W/U Status Risk SNOMED Code Notes Problem Diverticulosis of large intestine without perforation or abscess without bleeding (K57.30) Active confirmed Diverticul ar disease of colon (796248222) Encounters Encounter Location Date Provider Diagnosis [facility] [place] [address] [place] [phone] 07/13/2023 Tashi Currie Encounter for scre ening [...]
--- OUTSIDE RECORDS SUMMARY | 2024-06-27 15:36 | XMS_ITS ---
Author Organization [facility] Address [address] [place] [address] Care Team Providers Care Meeting Planner Name Role Phone Fox Ku MD Primary Care Provider Tashi Bruno [phone] Alisha Moore Unavailable Unavailable REASON FOR VISIT [...] Active Encounters Encounter Location Date Provider Diagnosis [facility] [address] [place] [address] 04/17/2023 Tashi Currie PLAN OF TREATMENT Medication [...]
[2024-06-27 16:17] LABS: MANUAL DIFF FLAG NO
[2024-06-27 16:25] LABS: Basophils Percent Auto 0.2 % (0-2); Eosinophils Absolute Auto 0.1 X10*3/uL (0.0-0.4); Hematocrit 43.1 % (42.0-52.0); Imm Gran Abs Auto 0.01 X10*3/uL (0.00-0.03); Imm Gran Pct Auto 0.2 % (0.0-0.4); Lymphocytes Absolute Auto 1.3 X10*3/uL (1.2-4.9); Lymphocytes Percent Auto 27.2 % (20-40); Mean Corpuscular HGB Conc 32.5 g/dl (31.0-36.0); Mean Corpuscular Hemoglobin 28.8 pg (27.0-33.0); Mean Corpuscular Volume 88.7 fL (80.0-98.0); Mean Platelet Volume 10.4 fL (9.4-12.4); Monocytes Absolute Auto 0.4 X10*3/uL (0.1-1.2); Monocytes Percent Auto 8.5 % (2-11); Neutrophils Percent Auto 62.9 % (45-73); Platelet Count 258 X10*3/uL (160-400); Red Blood Count 4.86 X10*6/uL (4.60-5.80); Red Cell Distribution Width 15.4 % (11.0-16.0); White Blood Count 4.8 X10*3/uL (4.8-10.8)
[2024-06-27 16:58] VITALS: RESP 16
[2024-06-27 16:58] LABS: Alanine Aminotransferase 16 U/L (0-40); Albumin Level 3.7 g/dL (3.5-5.0); Anion Gap 13 (12-20); Aspartate Amino Transferase 18 U/L (5-37); Bilirubin Total 0.6 mg/dL (0.0-1.0); Blood Urea Nitrogen 11 mg/dL (9-16); Calcium 8.8 mg/dL (8.4-10.2); Carbon Dioxide 23 mmol/L (22-29); Chloride 111 mmol/L (96-108); Creatinine Clr Calc Pharmacy 65.6; Estimated Glomerular Filt Rate 49; Ethanol < 10 mg/dL; Glucose Random 70 mg/dL (60-115); Potassium 4.2 mmol/L (3.3-5.1); Sodium 143 mmol/L (135-145)
[2024-06-27 17:12] LABS: Acetaminophen LAB < 3 mcg/mL (<30); Salicylate < 5.0 mg/dL (15-30)
[2024-06-27 17:23] LABS: Alkaline Phosphatase 78 U/L (39-117)
[2024-06-27 18:43] VITALS: BP 134/66; PULSE 67; RESP 16; TEMP 37.1; O2SAT 97
== END 2024-06-27 18:44 | disposition home or self-care (01) ==
PROVIDERS: Physician Assistant Medical; Emergency Provider Emergency Medicine; PCP Internal Medicine
DX: F33.1 Major depressive disorder, recurrent, moderate (principal); R45.851 Suicidal ideations; I10 Essential (primary) hypertension; Z79.899 Other long term (current) drug therapy; Z51.81 Encounter for therapeutic drug level monitoring
CPT/HCPCS: 36415; 80053; 80143; 80179; 80307; 85025; 99284; S9485

== ENCOUNTER 2024-06-28 13:03 | Emergency (ER) | payer OTHER, SELFPAY ==
[2024-06-28 13:15] VITALS: BP 120/87; PULSE 87; RESP 16; TEMP 36.7; O2SAT 97; BMI 30.4
--- NOTE | 2024-06-28 14:26 | ED.PSYCH ---
HPI - Psych General Chief Complaint: Psychiatric Symptoms Stated Complaint: Depression, SI Time Seen by Provider: 06/28/24 14:26 Source: patient Mode of arrival: ambulatory Limitations: no limitations History of Present Illness ED Provider: Alma Rosa Horton PA-C HPI Narrative: 53 yo male with history of depression, anxiety, mood disorder, COPD, HTN, GERD, asthma, CKD III, insomnia, DM2, who presents to the ER for evaluation of worsening depression. He was recently admitted to earlier this month. He lives at his parents home who 20 years ago. his brother pays the electric bill. he has no heat. he has running water. he is very stressed about his living situation. he reports med compliance. started to have worsening depression and doesn't know what to do as his usual coping mechanisms are not working for him. no active AH or VH. no SI or HI MD complaint: suicidal ideation and feels depressed Onset (ago): week(s) Duration: getting worse History of same: Yes Relieving factors: none Exacerbating factors: none Context: significant life stressor Associated psychiatric symptoms: depression and suicidal ideation Associated symptoms: denies other symptoms Treatments prior to arrival: none If self harm: admits thoughts of self harm Related Data Home Medications ?Medication ?Instructions ?Recorded ?Confirmed atenolol 25 mg tablet 25 mg PO DAILY 06/17/24 06/28/24 bupropion HCl 150 mg 24 hr tablet, 150 mg PO DAILY 06/17/24 06/28/24 extended release ferrous sulfate 325 mg (65 mg 325 mg PO DAILY 06/17/24 06/28/24 iron) tablet haloperidol 10 mg tablet 10 mg PO BEDTIME 06/17/24 06/28/24 insulin glargine-yfgn 100 unit/mL 20 unit subcut QPM 06/17/24 06/28/24 (3 mL) subcutaneous pen melatonin 3 mg tablet 6 mg PO BEDTIME 06/17/24 06/28/24 omeprazole 40 mg capsule,delayed 40 mg PO DAILY 06/17/24 06/28/24 release tamsulosin 0.4 mg capsule 0.4 mg PO BEDTIME 06/17/24 06/28/24 thiamine HCl (vitamin B1) 100 mg 100 mg PO BID 06/17/24 06/28/24 tablet trazodone 50 mg tablet 50 mg PO BEDTIME PRN insomnia 06/17/24 06/28/24 Previous Rx's ?Medication ?Instructions ?Recorded cholecalciferol (vitamin D3) 50 50 mcg PO DAILY 90 days #90 caps 10/06/23 mcg (2,000 unit) capsule metformin 1,000 mg tablet 1,000 mg PO BID 90 days #180 tabs 01/20/24 atorvastatin 40 mg tablet 40 mg PO DAILY 90 days #90 tabs 03/26/24 meclizine 25 mg tablet 25 mg PO TID PRN dizziness #20 tabs 05/02/24 docusate sodium 100 mg capsule 100 mg PO BEDTIME #30 caps 06/02/24 aripiprazole 5 mg tablet (Abilify) 5 mg PO DAILY 30 days #30 tabs 06/16/24 benztropine 0.5 mg tablet 0.5 mg PO BID 30 days #60 tabs 06/16/24 hydroxyzine HCl 25 mg tablet 25 mg PO BID@0900,1700 30 days #60 06/16/24 tabs prednisone 20 mg tablet 40 mg (2 x 20 mg) PO DAILY #6 tabs 06/20/24 albuterol sulfate 90 mcg/actuation 2 puff inhalation Q4-6H PRN 06/23/24 aerosol inhaler shortness of breath or wheezing #6.7 grams aripiprazole 5 mg tablet (Abilify) 5 mg PO DAILY #7 tabs 06/28/24 atenolol 25 mg tablet 25 mg PO DAILY #7 tabs 06/28/24 atorvastatin 40 mg tablet (Lipitor) 40 mg PO DAILY #7 tabs 06/28/24 bupropion HCl 150 mg 24 hr tablet, 150 mg PO QAM #7 tabs 06/28/24 extended release (Wellbutrin XL) haloperidol 10 mg tablet 10 mg PO BEDTIME #7 tabs 06/28/24 hydroxyzine HCl 25 mg tablet 25 mg PO BID #14 tabs 06/28/24 insulin glargine 100 unit/mL (3 20 unit (0.2 mL) subcut QPM #3 mL 06/28/24 mL) subcutaneous pen (Lantus Solostar U-100 Insulin) tamsulosin 0.4 mg capsule (Flomax) 0.4 mg PO BEDTIME #7 caps 06/28/24 thiamine HCl (vitamin B1) 100 mg 100 mg PO BID #14 tabs 06/28/24 tablet trazodone 50 mg tablet 50 mg PO BEDTIME PRN insomnia #7 06/28/24 tabs Allergies Allergy/AdvReac Type Severity Reaction Status Date / Time pollen extracts [POLLEN] Allergy Mild RUNNY NOSE Verified 06/28/24 13:15 cat dander [CATS] Allergy Unknown UNKNOWN Verified 06/28/24 13:15 dog dander [DOGS] Allergy Unknown UNKNOWN Verified 06/28/24 13:15 mold [MOLD] Allergy Unknown UNKNOWN Verified 06/28/24 13:15 Review of Systems Review of Systems: Yes all other systems are reviewed and are negative [facility] Past Medical History Medical History Psychosis Chest pain Suicidal ideation Recurrent major depression Allergic rhinitis Insomnia Palpitations Vitamin D deficiency Chronic kidney disease, stage III (moderate) GERD without esophagitis Restrictive lung disease Obesity (BMI 30-39.9) Benign essential hypertension Pure hypercholesterolemia Diabetes mellitus Pulmonary emboli Chondrosarcoma Hyperlipidemia Chronic restrictive lung disease COPD (chronic obstructive pulmonary disease) Asthma Surgical History History of esophagogastroduodenoscopy (EGD) H/O colonoscopy History of inguinal hernia repair Hx of exploratory thoracotomy H/O tooth extraction Family History Family History Father Hypertension Kidney failure, acute Mother Lung cancer Family/Other Diabetes Social History Social History Household Members: None Housing: Apartment Do you presently have visiting nurse or other home services: No Alcohol intake: never Patient Tobacco Use Status: Never used Tobacco e-Cigarette/Vaping Use: Never Used Second Hand Smoke Exposure: Yes Advance Directives: No Advance Directives Information Provided: No service: No Current occupational status: unemployed Sexual orientation: Straight/Heterosexual Cognitive needs: No Hearing needs: No Vision needs: Yes (Glasses) Physical Exam Vital Signs: Vital Signs: Last Vital Signs Temp 98.1 F 06/28/24 13:15 Pulse 87 06/28/24 13:15 Resp 16 06/28/24 13:15 BP 120/87 06/28/24 13:15 Pulse Ox 97 06/28/24 13:15 O2 Del Method Room Air 06/28/24 13:15 BMI result Body Mass Index 30.4 Appearance: Alert. Oriented X3. unkempt. Head: normocephalic, atraumatic. Eyes: Pupils equal, round and reactive to light. ENT: Pharynx normal. No tonsillar swelling or exudate. Neck: Normal inspection. Neck supple. CVS: Normal heart rate and rhythm. Pulses normal. Respiratory: No respiratory distress. Breath sounds normal. Abdomen: obese, Soft and nontender. +BS x4 Skin: Skin warm and dry. Normal skin color. Normal skin turgor. scarring and scabbing on the left chest wall which appears chronic Extremities: No lower extremity edema. No joint swelling. Neuro/psych: Oriented X 3. No motor deficit. No sensory deficit. CN II-XII intact. Normal speech and cognition. depressed mood. no SI or HI. affect is flat. Course Reevaluation(s) Reevaluation #1: Physician observation started at 14:52. Patient placed in physician observation because patient is awaiting respite bed placement. At the time observation was started patient's vital signs were stable. Patient is alert and oriented. Neuro exam is non-focal. CV: RRR and lungs are clear. Will continue to monitor. Time: 14:52 Medical Decision Making Medical Decision Making [facility] Narrative: 53 yo male with history of depression/anxiety, COPD, HTN, GERD here with worsening depression. he has a lot of life stressors and difficulty dealing with them. he states he is starting to get suicidial no plan or intent Spoke with care team at length. patient seen here yesterday and evaluated 7 times in the last 2 months. recently admitted here on M5. Plan is for respite and [facility] worker to connect with him there to help patient cannot go to respite without his prescriptions and they are all at his house. 7 days supply sent to [facility] pharmacy and will be delivered to pod tomorrow - hopeful to go to respite tomorrow. Differential Diagnosis Differential Diagnoses: The differential diagnosis associated with the presentation includes developmental delay, substance induced mood disorder, acute psychosis, schizophrenia, schizoaffective disorder, PTSD, bipolar disorder, major depression with psychotic features Admission/Observation Consideration of admission/observation: Escalation of care including admission/observation considered Consult Healthcare Provider Management of the patient was discussed with: Behavioral Health Provider Lab Data [facility] Lab Attestation statement: I reviewed the patient's lab results. 06/28/24 15:54 06/28/24 15:54 Labs: Lab Results 06/28/24 06/28/24 Range/Units 15:52 15:54 WBC 6.3 (4.8-10.8) X10*3/uL RBC 4.85 (4.60-5.80) X10*6/uL Hgb 14.2 (14.0-18.0) g/dl Hct 42.7 (42.0-52.0) % MCV 88.0 (80.0-98.0) fL MCH 29.3 (27.0-33.0) pg MCHC 33.3 (31.0-36.0) g/dl RDW 15.3 (11.0-16.0) % Plt Count 251 (160-400) X10*3/uL MPV 10.1 (9.4-12.4) fL Immature Gran % (Auto) 0.3 (0.0-0.4) % Neut % (Auto) 68.2 (45-73) % Lymph % (Auto) 23.5 (20-40) % [place] % (Auto) 7.0 (2-11) % Eos % (Auto) 0.8 (0-4) % Baso % (Auto) 0.2 (0-2) % Lymph # (Auto) 1.5 (1.2-4.9) X10*3/uL [place] # (Auto) 0.4 (0.1-1.2) X10*3/uL Eos # (Auto) 0.1 (0.0-0.4) X10*3/uL Baso # (Auto) 0.0 (0.0-0.2) X10*3/uL Abs Immat Gran (auto) 0.02 (0.00-0.03) X10*3/uL Absolute Neuts (auto) 4.3 (2.0-8.3) x10*3/uL Absolute Nucleated RBC 0.000 (0.0-0.012) X10*3/uL Nucleated RBC % (auto) 0.0 (0.0-0.2) /100WBC Sodium 141 (135-145) mmol/L Potassium 4.9 (3.3-5.1) mmol/L Chloride 109 H (96-108) mmol/L Carbon Dioxide 24 (22-29) mmol/L Anion Gap 13 (12-20) BUN 15 (9-16) mg/dL Creatinine 1.48 H (0.5-1.4) mg/dL Estim Creat Clear Calc 63.1 Estimated GFR 50 Random Glucose 81 (60-115) mg/dL Calcium 9.0 (8.4-10.2) mg/dL Total Bilirubin 0.7 (0.0-1.0) mg/dL AST 31 (5-37) U/L ALT 16 (0-40) U/L Alkaline Phosphatase 76 (39-117) U/L Total Protein 7.0 (6.5-8.0) g/dL Albumin 3.7 (3.5-5.0) g/dL Urine Color Yellow Urine Appearance Clear Urine pH 5.5 (5.0-9.0) Ur Specific [place] 1.015 (1.005-1.025) Urine Protein Trace (Neg-Trace) mg/dL Urine Glucose (UA) Negative (Negative) mg/dL Urine Ketones Negative (Negative) mg/dL Urine Blood Small (1+) H (Negative) Urine Nitrite Negative (Negative) Ur Leukocyte Esterase Negative (Negative) Urine RBC 3-5 H (0-2) /HPF Urine WBC 0-5 (0-5) /HPF Ur Squamous Epith Cells 0-2 (0-2) /HPF Urine Bacteria None Seen (None Seen) Hyaline Casts 3-5 (0-2) /LPF Salicylates < 5.0 L (15-30) mg/dL Acetaminophen < 3 (<30) mcg/mL Ethyl Alcohol < 10 mg/dL External Record Review External record reviewed: Inpatient record, Outpatient record, Prior outpatient labs and Prior outpatient radiology Prescription Management I considered prescription management with: Other (antipsychotic) Chronic Conditions Patient?s care impacted by: Diabetes and Hypertension Social Determinants Patient?s care significantly limited by Social Determinants of Health including: Inadequate housing, Low income and Problems related to primary support group Critical Care Time Critical Care Time Critical Care Time: No Discharge Plan Discharge Clinical Impression: Depression Qualifiers: Depression Type: unspecified Qualified Code(s): F32.A - Depression, unspecified Patient Disposition: Still a Patient Prescriptions: New aripiprazole [Abilify] 5 mg tablet 5 mg PO DAILY Qty: 7 0RF atenolol 25 mg tablet 25 mg PO DAILY Qty: 7 0RF trazodone 50 mg tablet 50 mg PO BEDTIME PRN (Reason: insomnia) Qty: 7 0RF tamsulosin [Flomax] 0.4 mg capsule 0.4 mg PO BEDTIME Qty: 7 0RF thiamine HCl (vitamin B1) 100 mg tablet 100 mg PO BID Qty: 14 0RF atorvastatin [Lipitor] 40 mg tablet 40 mg PO DAILY Qty: 7 0RF haloperidol 10 mg tablet 10 mg PO BEDTIME Qty: 7 0RF hydroxyzine HCl 25 mg tablet 25 mg PO BID Qty: 14 0RF bupropion HCl [Wellbutrin XL] 150 mg tablet extended release 24 hr 150 mg PO QAM Qty: 7 0RF insulin glargine [Lantus Solostar U-100 Insulin] 100 unit/mL (3 mL) insulin pen 20 unit subcut QPM Qty: 3 0RF No Action cholecalciferol (vitamin D3) 50 mcg (2,000 unit) capsule 50 mcg PO DAILY 90 Days Qty: 90 3RF metformin 1,000 mg tablet 1,000 mg PO BID 90 Days Qty: 180 1RF atorvastatin 40 mg tablet 40 mg PO DAILY 90 Days Qty: 90 1RF meclizine 25 mg tablet 25 mg PO TID PRN (Reason: dizziness) Qty: 20 0RF docusate sodium 100 mg Capsule 100 mg PO BEDTIME Qty: 30 0RF aripiprazole [Abilify] 5 mg Tablet 5 mg PO DAILY 30 Days Qty: 30 0RF benztropine 0.5 mg Tablet 0.5 mg PO BID 30 Days Qty: 60 0RF hydroxyzine HCl 25 mg Tablet 25 mg PO BID@0900,1700 30 Days Qty: 60 0RF thiamine HCl (vitamin B1) 100 mg tablet 100 mg PO BID melatonin 3 mg tablet 6 mg PO BEDTIME trazodone 50 mg tablet 50 mg PO BEDTIME PRN (Reason: insomnia) atenolol 25 mg tablet 25 mg PO DAILY tamsulosin 0.4 mg capsule 0.4 mg PO BEDTIME ferrous sulfate 325 mg (65 mg iron) tablet 325 mg PO DAILY omeprazole 40 mg capsule,delayed release(DR/EC) 40 mg PO DAILY haloperidol [Haldol] 10 mg Tablet 10 mg PO BEDTIME insulin glargine-yfgn 100 unit/mL (3 mL) insulin pen 20 unit subcut QPM bupropion HCl 150 mg tablet extended release 24 hr 150 mg PO DAILY prednisone 20 mg tablet 40 mg PO DAILY Qty: 6 0RF albuterol sulfate 90 mcg/actuation HFA aerosol inhaler 2 puff inhalation Q4-6H PRN (Reason: shortness of breath or wheezing) Qty: 6.7 0RF Print Language: [place]
[2024-06-28 15:59] LABS: MANUAL DIFF FLAG NO
[2024-06-28 16:01] LABS: Basophils Percent Auto 0.2 % (0-2); Eosinophils Absolute Auto 0.1 X10*3/uL (0.0-0.4); Eosinophils Percent Auto 0.8 % (0-4); Hematocrit 42.7 % (42.0-52.0); Hemoglobin 14.2 g/dl (14.0-18.0); Imm Gran Abs Auto 0.02 X10*3/uL (0.00-0.03); Imm Gran Pct Auto 0.3 % (0.0-0.4); Lymphocytes Absolute Auto 1.5 X10*3/uL (1.2-4.9); Lymphocytes Percent Auto 23.5 % (20-40); Mean Corpuscular HGB Conc 33.3 g/dl (31.0-36.0); Mean Corpuscular Hemoglobin 29.3 pg (27.0-33.0); Mean Platelet Volume 10.1 fL (9.4-12.4); Monocytes Absolute Auto 0.4 X10*3/uL (0.1-1.2); Neutrophils Absolute Auto 4.3 x10*3/uL (2.0-8.3); Neutrophils Percent Auto 68.2 % (45-73); Platelet Count 251 X10*3/uL (160-400); Red Blood Count 4.85 X10*6/uL (4.60-5.80); Red Cell Distribution Width 15.3 % (11.0-16.0); White Blood Count 6.3 X10*3/uL (4.8-10.8)
[2024-06-28 16:03] LABS: Appearance Urine Clear; Color Urine Yellow; Glucose Urine UA Negative (Negative); Leukocyte Esterase Urine Negative (Negative); Nitrite Urine Negative (Negative); PH 5.5 (5.0-9.0); Specific Gravity - Urine 1.015 (1.005-1.025); UMIC TRIGGER UA YES; Urine Blood Small (1+) (Negative); Urine Ketones Negative (Negative); Urine Protein Trace mg/dL (Neg-Trace)
--- OUTSIDE RECORDS SUMMARY | 2024-06-28 16:08 | XMS_ITS | Encounter Summary ---
Author Organization [facility] Address [address] [place] [id number] Care Team Providers Care Technical Assistance Consultant Name Role Phone Unavailable Primary Care Provider Unavailabl e Encounter Details Date Type Department Care Team (Late st Contact Info) Description 12/23/[address] [facility] [address] [place] [id number] Gastroenterology, Scan Social History Tobacco Use Types [...]
--- OUTSIDE RECORDS SUMMARY | 2024-06-28 16:08 | XMS_ITS ---
Author Organization [facility] Address [address] [place] [address] Care Team Providers Care Skin Tanner Name Role Phone Fox Ku MD Primary Care Provider Tashi Bruno Unavailable [phone] Alisha Moore Unavailable Unavailable ALLERGIES No Known [...] adenomatous polyp of colon (Z86.010) Active confirmed 921923504 Problem Colon cancer screening (Z12.11) Active confirmed 486960257 Problem Preprocedural examination (Z01.818) Active confirmed 932228757608686 Problem Gastroesophageal reflux disease without esophagitis (K21.9) Active confirmed 153726824 VITAL SIGNS BMI 40.13 kg/m2 04/17/2023 Blood pressure systolic 00 mm Hg 04/17/20 23 Blood pressure diastolic 00 mm Hg 023 Height 67.75 in 04/17/2023 Temperature 97.7 degrees Fahrenheit 04/17/20 23 Weight 262 lbs 04/17/2023 Encounters Encounter Location Date Provider Diagnosis [facility] [address] [place] [address] 04/17/2023 Tashi Currie Preprocedural examin ation Z01.818 [...]
--- OUTSIDE RECORDS SUMMARY | 2024-06-28 16:08 | XMS_ITS | Patient Health Record ---
Author Organization [facility] Address [address] [place] [address] Care Team Providers Care Stock Broker Name Role Phone Fox Ku MD Primary Care Provider Tashi Bruno Unavailable [phone] Alisha Moore Unavailable Unavailable ALLERGIES No Known Allergies RESULTS Component Value Reference Range Notes Pathology (Not yet reviewed by provider) Interpretation: Performing Lab:[facility], [address] [place] [phone] Notes/Report: Glucose, Whole Blood Reviewed date:07/13/2023 07:14:58 PM Interpretation: Performing Lab:[facility], [address] [place] [phone] Notes/Report: Glucose, Whole Blood 114 60-115 mg/dL METER # : [id number] REASON FOR REFERRAL No Information MEDICATIONS Medication [...] iron deficiency anemia type (D50.9) Active confirmed 23997870 Problem History of adenomatous polyp of colon (Z86.010) Active confirmed 608431047 Problem Colon cancer screening (Z12.11) Active confirmed 949328146 Problem Preprocedural examination (Z01.818) Active confirmed 815915288891628 Problem Gastroesophageal reflux disease without esophagitis (K21.9) Active confirmed 398603151 Problem Diverticulosis of large intestine without perforation or abscess without bleeding (K57.30) Active confirmed Diverticul ar disease of colon (681514805) Encounters Encounter Location Date Provider Diagnosis [facility] Outpatient [address] [place] [phone] 07/13/2023 Tashi Currie Encounter for scre ening [...] Insured Coverage Start Date Coverage End Date [facility] [employer] [facility] [address] [address] [place], [place] [id number] KIAN MAHMOOD Self - patient is the insured MEDICAID [place] [address] [place] [address] [id number] KIAN MAHMOOD Self - patient is the insured MEDICAL (GENERAL) HISTORY Medical History History ICD Code IDDM Hypertension Heart murmur-Dr. Collins Asthma/COPD- Dr. Correa Pulmonary embolus in 2015--on Coumadin-- sees Dr. Moore Lung mass--surgery in 2008 a s below, with XRT; biopsied in approx 2015 and benign--followed by Dr. Tino Dimas [place],CVA,renal disease GERD--upper endoscopy August of 2017 with [...] History Surgery Date(Month/Year) Mass removed--Dr. Fields at [facility]-- Be nign , but had XRT 2008 Right inguinal hernia 1990 Ear tubes/Adenoids
--- OUTSIDE RECORDS SUMMARY | 2024-06-28 16:08 | XMS_ITS | Clinical Summary ---
Author Organization [facility] Address [address] [place] [address] Care Team Providers Care Java Xml Developer Name Role Phone Bon Arvizu MD Primary Care Provider [phone] Allergies No known active allergies Medications Ventolin [...] Only [facility] [address] [place] [address] Tashi Bonner MD [phone] [address] Stage 3a chronic kidney disease (HCC); Type 2 diabetes mellitus with diabetic chronic kidney disease (HCC) 08/04/2024 1:15 PM EDT Office Visit [facility] [address] [place] [address] Tashi Bonner MD [phone] [address] Health Maintenance Due Date Last [...] Exam 09/25/2022 Influenza Vaccine (#1) [address] [place] [address] [place] [address] Care Teams Java Xml Developer Relationship Specialty Start Date End Date Bon Arvizu MD [address] [place] [address] PCP - General Internal Medicine 06/04/22
--- OUTSIDE RECORDS SUMMARY | 2024-06-28 16:08 | XMS_ITS | Clinical Summary ---
Author Organization [facility] Address [address] [place] [address] Care Team Providers Care Acute Care Registered Nurse Name Role Phone Unavailable Primary Care Provider [...]
--- OUTSIDE RECORDS SUMMARY | 2024-06-28 16:08 | XMS_ITS ---
Author Organization [facility] Address [address] [place] [phone] Care Team Providers Care Internal Communications Specialist Name Role Phone Fox Ku MD Primary Care Provider Tashi Bruno [phone] Alisha Moore Unavailable Unavailable REASON FOR VISIT [...] Provider Diagnosis [facility] [address] [place] [phone] 04/17/2023 Tashi Currie PLAN OF TREATMENT Medication [...]
--- OUTSIDE RECORDS SUMMARY | 2024-06-28 16:09 | XMS_ITS ---
Author Organization [facility] Address [address] [place] [address] Care Team Providers Care Real Property Appraiser Name Role Phone Fox Ku MD Primary Care Provider Tashi Bruno Unavailable [phone] Alisha Moore Unavailable Unavailable REASON FOR VISIT screening,hx polyps PROBLEMS Problem Type ICD Code Onset Dates Problem Status W/U Status Risk SNOMED Code Notes Problem Diverticulosis of large intestine without perforation or abscess without bleeding (K57.30) Active confirmed Diverticul ar disease of colon (102477517) Encounters Encounter Location Date Provider Diagnosis [facility] Outpatient [address] [place] [phone] 07/13/2023 Tashi Currie Encounter for scre ening [...]
[2024-06-28 16:15] LABS: Acetaminophen LAB < 3 mcg/mL (<30); Alanine Aminotransferase 16 U/L (0-40); Albumin Level 3.7 g/dL (3.5-5.0); Alkaline Phosphatase 76 U/L (39-117); Anion Gap 13 (12-20); Aspartate Amino Transferase 31 U/L (5-37); Bilirubin Total 0.7 mg/dL (0.0-1.0); Blood Urea Nitrogen 15 mg/dL (9-16); Carbon Dioxide 24 mmol/L (22-29); Chloride 109 mmol/L (96-108); Creatinine Clr Calc Pharmacy 63.1; Estimated Glomerular Filt Rate 50; Ethanol < 10 mg/dL; Glucose Random 81 mg/dL (60-115); Potassium 4.9 mmol/L (3.3-5.1); Salicylate < 5.0 mg/dL (15-30); Sodium 141 mmol/L (135-145)
[2024-06-28 16:15] LABS: Bacteria Urine None Seen (None Seen); Squamous Epithelial Cell Urine 0-2 /HPF (0-2); WBC Urine 0-5 /HPF (0-5)
[2024-06-28 16:30] LABS: Amphetamine Screen Urine Not Detected (Not Detect); Barbiturates, Urine Not Detected (Not Detect); Benzodiazepines Screen Urine Not Detected (Not Detect); Buprenorphine Scr Not Detected (Not Detect); Cannabinoid Screen Urine Not Detected (Not Detect); Cocaine Screen Urine Not Detected (Not Detect); Fentanyl, urine Not Detected (Not Detect); Methadone Screen, Urine Not Detected (Not Detect); Opiate Screen Urine Not Detected (Not Detect); Oxycodone Screen Urine Not Detected (Not Detect); Phencyclidine Screen Urine Not Detected (Not Detect)
--- NOTE | 2024-06-28 16:47 | MHC.CARE ---
Patient has been accepted to [facility] for tomorrow (06/29/24) @ 11 A.M.
[2024-06-28] MEDS: hydrOXYzine HCL 25 MG TABLET PO (17:52)
[2024-06-28 18:51] VITALS: RESP 16
--- NOTE | 2024-06-28 19:13 | PC.NURSE ---
[facility] pharmacy delivered half of patient's medications, will deliver other half of his medications tomorrow morning prior to departure
[2024-06-28 19:50] LABS: Glucose, Whole Blood 138 mg/dL (60-115)
[2024-06-28 19:51] VITALS: BP 109/69; PULSE 62; RESP 18; TEMP 36.5; O2SAT 97
[2024-06-28] MEDS: metFORMIN HCl 1,000 MG TABLET 1000 MG PO (20:03)
[2024-06-28] MEDS: Thiamine HCL 100 MG TABLET PO (20:03)
[2024-06-28] MEDS: Docusate Sodium 100 MG CAPSULE PO (20:03)
[2024-06-28] MEDS: Insulin Glargine,Hum.rec.anlog 100 UNIT/ML 10 ML VIAL 20 UNIT SUBCUT (20:03)
[2024-06-28] MEDS: Tamsulosin HCL 0.4 MG CAPSULE PO (20:03)
[2024-06-28] MEDS: HaloperidoL 5 MG TABLET 10 MG PO (20:03)
[2024-06-28] MEDS: Melatonin 3 MG TABLET 6 MG PO (20:03)
[2024-06-28] MEDS: Benztropine Mesylate 0.5 MG TABLET PO (20:03)
--- NOTE | 2024-06-28 20:22 | PC.NURSE ---
Patient took PM medications without issue in applesauce. Patient has remained calm and cooperative, offering no complaints to this RN, ambulating with steady gait around pod
--- NOTE | 2024-06-29 02:06 | PC.NURSE ---
pt very restless in bed, in and out of bed. offered trazodone for insomnia, pt refused.
[2024-06-29 06:20] VITALS: BP 116/57; PULSE 51; RESP 16; TEMP 36.8; O2SAT 98
[2024-06-29 08:36] VITALS: BP 116/61; PULSE 50; RESP 14; TEMP 36; O2SAT 98
[2024-06-29] MEDS: ARIPiprazole 5 MG TABLET PO (08:44)
[2024-06-29] MEDS: Cholecalciferol (Vitamin D3) 25 MCG TABLET 50 MCG PO (08:44)
[2024-06-29] MEDS: Atorvastatin Calcium 40 MG TABLET PO (08:44)
[2024-06-29] MEDS: atenoloL 25 MG TABLET PO (08:44)
[2024-06-29] MEDS: metFORMIN HCl 1,000 MG TABLET 1000 MG PO (08:44)
[2024-06-29] MEDS: Omeprazole 40 MG CAPSULE.DR PO (08:44)
[2024-06-29] MEDS: predniSONE 20 MG TABLET 40 MG PO (08:44)
[2024-06-29] MEDS: Benztropine Mesylate 0.5 MG TABLET PO (08:45)
[2024-06-29] MEDS: Thiamine HCL 100 MG TABLET PO (08:45)
[2024-06-29] MEDS: hydrOXYzine HCL 25 MG TABLET PO (08:45)
[2024-06-29] MEDS: buPROPion HCl XL 150 MG TAB.ER.24H PO (08:45)
--- NOTE | 2024-06-29 09:34 | PC.NURSE ---
pharmacy dropped off patient medications
--- NOTE | 2024-06-29 10:27 | PC.NURSE ---
patient given belongings to change into for ride to respite. discharge paperwork given. CARE team notified
--- NOTE | 2024-06-29 10:37 | PC.NURSE ---
patient dressed in weather appropriate clothing, escorted to waiting room for lyft to respite. patient gait steady
[2024-06-29 10:38] VITALS: BP 116/61; PULSE 50; RESP 14; TEMP 36; O2SAT 98
== END 2024-06-29 10:38 | disposition other institution (70) ==
PROVIDERS: Physician Assistant Medical; Emergency Provider Emergency Medicine Emergency Medical Services; PCP Internal Medicine
DX: F32.A Depression, unspecified (principal); R45.851 Suicidal ideations; F41.1 Generalized anxiety disorder; E11.9 Type 2 diabetes mellitus without complications; I10 Essential (primary) hypertension; E78.5 Hyperlipidemia, unspecified; J45.909 Unspecified asthma, uncomplicated; Z79.01 Long term (current) use of anticoagulants; Z79.899 Other long term (current) drug therapy
CPT/HCPCS: 36415; 80053; 80143; 80179; 80307; 81001; 81003; 82947; 85025; 99285; S9485

== ENCOUNTER 2024-06-30 15:25 | Emergency (ER) | payer OTHER, SELFPAY ==
--- NOTE | 2024-06-30 | ECG_ITS ---
Test Reason : CHEST PAIN Blood Pressure : */* mmHG Vent. Rate : 61 BPM Atrial Rate : 61 BPM P-R Int : 152 ms QRS Dur : 108 ms QT Int : 434 ms P-R-T Axes : 19 -7 -9 degrees QTcB Int : 436 ms Normal sinus rhythm Minimal voltage criteria for LVH, may be normal variant ( R in aVL ) Borderline ECG When compared with ECG of 23-Jun-2024 11:52, Premature ventricular complexes are no longer Present Vent. rate has decreased by 33 bpm Referred By: Generic ED Physician Electronically Signed By: BRIGITTE RASMUSSEN
--- NOTE | ~2024-06-30 | XR_ITS ---
CLINICAL HISTORY: chest pain Chest Radiographs, 2 views Comparison: CR/SR - XR CHEST 2V - 06/23/24 12:54 EST CR - XR CHEST 2V - 06/19/24 19:12 EST CR - XR CHEST 1V - 06/09/24 17:[address]/OK/SR - CT CHEST WO IV CON - 05/02/24 13:23 EST Findings: No cardiomegaly. Normal mediastinal contours. Mild elevation of the left hemidiaphragm due to volume loss, unchanged. No pneumothorax. Linear opacity at the left lung base corresponding to scarring, unchanged. No pleural effusion. Normal upper abdomen. No acute fracture. Partial absence of left ribs, unchanged. Impression: No acute findings. This document has been electronically signed by: Laly De Los Santos MD on 06/30/2024 17:08:26
[2024-06-30 15:35] VITALS: BP 123/76; PULSE 65; O2SAT 100
[2024-06-30 16:29] VITALS: BP 109/59; PULSE 63; RESP 18; TEMP 37.3; O2SAT 97; BMI 35.3
--- NOTE | 2024-06-30 16:29 | ED.GENADULT ---
HPI - General Adult General Chief complaint: Chest Pain Stated complaint: stabbing chest pains lft side and arm hx 2;30 pm Time Seen by Provider: 06/30/24 20:58 Source: patient, EMS and old records reviewed Mode of arrival: EMS Limitations: no limitations History of Present Illness ED Provider: CHANO TESFAYE narrative: 53 yo male with PMH of depression, anxiety, mood disorder, recurrent chest pain, COPD, CKD, GERD, HLD, DM here with c/o L sided chest pain since 2pm - he has been seen here recently for same. He denies travel/procedures. Movement and touching chest make it worse. He has no cough/fevers. He felt no new SOB. He denies fevers. He is not producing sputum. He denies trauma. He feels better now he is not SI at the moment just depression but declines CARE team. MD complaint: chest pain Onset (ago): day(s) (today 2pm) Location: chest Radiation: non-radiation Severity: moderate Quality: aching Pain Consistency: constant Relieving factors: none Exacerbating factors: movement Associated symptoms: denies other symptoms Treatments prior to arrival: none Related Data Home Medications ?Medication ?Instructions ?Recorded ?Confirmed atenolol 25 mg tablet 25 mg PO DAILY 06/17/24 06/28/24 bupropion HCl 150 mg 24 hr tablet, 150 mg PO DAILY 06/17/24 06/28/24 extended release ferrous sulfate 325 mg (65 mg 325 mg PO DAILY 06/17/24 06/28/24 iron) tablet haloperidol 10 mg tablet 10 mg PO BEDTIME 06/17/24 06/28/24 insulin glargine-yfgn 100 unit/mL 20 unit subcut QPM 06/17/24 06/28/24 (3 mL) subcutaneous pen melatonin 3 mg tablet 6 mg PO BEDTIME 06/17/24 06/28/24 omeprazole 40 mg capsule,delayed 40 mg PO DAILY 06/17/24 06/28/24 release tamsulosin 0.4 mg capsule 0.4 mg PO BEDTIME 06/17/24 06/28/24 thiamine HCl (vitamin B1) 100 mg 100 mg PO BID 06/17/24 06/28/24 tablet trazodone 50 mg tablet 50 mg PO BEDTIME PRN insomnia 06/17/24 06/28/24 Previous Rx's ?Medication ?Instructions ?Recorded cholecalciferol (vitamin D3) 50 50 mcg PO DAILY 90 days #90 caps 10/06/23 mcg (2,000 unit) capsule metformin 1,000 mg tablet 1,000 mg PO BID 90 days #180 tabs 01/20/24 atorvastatin 40 mg tablet 40 mg PO DAILY 90 days #90 tabs 03/26/24 meclizine 25 mg tablet 25 mg PO TID PRN dizziness #20 tabs 05/02/24 docusate sodium 100 mg capsule 100 mg PO BEDTIME #30 caps 06/02/24 aripiprazole 5 mg tablet (Abilify) 5 mg PO DAILY 30 days #30 tabs 06/16/24 benztropine 0.5 mg tablet 0.5 mg PO BID 30 days #60 tabs 06/16/24 hydroxyzine HCl 25 mg tablet 25 mg PO BID@0900,1700 30 days #60 06/16/24 tabs prednisone 20 mg tablet 40 mg (2 x 20 mg) PO DAILY #6 tabs 06/20/24 albuterol sulfate 90 mcg/actuation 2 puff inhalation Q4-6H PRN 06/23/24 aerosol inhaler shortness of breath or wheezing #6.7 grams aripiprazole 5 mg tablet (Abilify) 5 mg PO DAILY #7 tabs 06/28/24 atenolol 25 mg tablet 25 mg PO DAILY #7 tabs 06/28/24 atorvastatin 40 mg tablet (Lipitor) 40 mg PO DAILY #7 tabs 06/28/24 bupropion HCl 150 mg 24 hr tablet, 150 mg PO QAM #7 tabs 06/28/24 extended release (Wellbutrin XL) haloperidol 10 mg tablet 10 mg PO BEDTIME #7 tabs 06/28/24 hydroxyzine HCl 25 mg tablet 25 mg PO BID #14 tabs 06/28/24 insulin glargine 100 unit/mL (3 20 unit (0.2 mL) subcut QPM #3 mL 06/28/24 mL) subcutaneous pen (Lantus Solostar U-100 Insulin) tamsulosin 0.4 mg capsule (Flomax) 0.4 mg PO BEDTIME #7 caps 06/28/24 thiamine HCl (vitamin B1) 100 mg 100 mg PO BID #14 tabs 06/28/24 tablet trazodone 50 mg tablet 50 mg PO BEDTIME PRN insomnia #7 06/28/24 tabs Allergies Allergy/AdvReac Type Severity Reaction Status Date / Time pollen extracts [POLLEN] Allergy Mild RUNNY NOSE Verified 06/30/24 16:31 cat dander [CATS] Allergy Unknown UNKNOWN Verified 06/30/24 16:31 dog dander [DOGS] Allergy Unknown UNKNOWN Verified 06/30/24 16:31 mold [MOLD] Allergy Unknown UNKNOWN Verified 06/30/24 16:31 Review of Systems Review of Systems: Constitutional : No Weight loss, No Fever, No Chills ENT/Mouth : No sore throat, No Rhinorrhea Eyes: No Eye Pain, No Swelling Cardiovascular : pos Chest Pain, pos SOB chronic, no Dyspnea on Exertion, No Orthopnea, No Edema, No Palpitations Respiratory : No Cough, No Sputum Gastrointestinal : pos Nausea, No Vomiting, No Diarrhea, No abdominal Pain, No Hematochezia, No Melena Genitourinary : No Dysuria, No Urinary Frequency Musculoskeletal : No joint pain, No Myalgias, No Joint Swelling Skin : No Skin Lesions, No rash Neuro : No Weakness, No Numbness, No Dizziness, No Headache All other systems reviewed and are negative [facility] Past Medical History Attestation statement: The following information was validated with the patient. Source: old records reviewed Medical History Psychosis Chest pain Suicidal ideation Recurrent major depression Allergic rhinitis Insomnia Palpitations Vitamin D deficiency Chronic kidney disease, stage III (moderate) GERD without esophagitis Restrictive lung disease Obesity (BMI 30-39.9) Benign essential hypertension Pure hypercholesterolemia Diabetes mellitus Pulmonary emboli Chondrosarcoma Hyperlipidemia Chronic restrictive lung disease COPD (chronic obstructive pulmonary disease) Asthma Surgical History History of esophagogastroduodenoscopy (EGD) H/O colonoscopy History of inguinal hernia repair Hx of exploratory thoracotomy H/O tooth extraction Family History Family History Father Hypertension Kidney failure, acute Mother Lung cancer Family/Other Diabetes Social History Social History Household Members: None Housing: Apartment Do you presently have visiting nurse or other home services: No Alcohol intake: never Patient Tobacco Use Status: Never used Tobacco e-Cigarette/Vaping Use: Never Used Second Hand Smoke Exposure: Yes Advance Directives: Yes Advance Directives Information Provided: No Advance Directives on File: No service: No Current occupational status: unemployed Sexual orientation: Straight/Heterosexual Cognitive needs: No Hearing needs: No Vision needs: Yes (Glasses) Physical Exam ED Vital Signs: Vital Signs - 24 hr 06/30/24 16:29 Temperature 99.1 F Pulse Rate 63 Respiratory Rate 18 Blood Pressure 109/59 L Pulse Oximetry 97 Oxygen Delivery Method Room Air BMI result Body Mass Index 35.3 Appearance: Alert. Oriented X3. No acute distress. Eyes: Pupils equal, round and reactive to light. ENT: Pharynx normal. Neck: Normal inspection. Neck supple. CVS: Normal heart rate and rhythm. Pulses normal. Chest: ttp along L chest reproduces pain Respiratory: No respiratory distress. Breath sounds normal. Abdomen: Soft and nontender. Skin: Skin warm and dry. Normal skin color. Normal skin turgor. Extremities: No lower extremity edema. No calf ttp Neuro: Oriented X 3. No motor deficit. No sensory deficit. CN2-12 intact Course Course Course Narrative: This is a rapid medical exam performed by Isaac Aldrich NP: Additional HPI, ROS, PE not included below will be deferred to primary provider. Patient is a 53-year-old male with history of COPD, asthma, DM, HTN, CKD 4, GERD, anxiety, MDD, CATIE presenting with complaint of chest pain since 2pm. Some nausea which has resolved. Plan: EKG, labs, cxr Medical Decision Making Medical Decision Making MDM Narrative: 53 yo male with PMH of depression, anxiety, mood disorder, recurrent chest pain, COPD, CKD, GERD, HLD, DM here with c/o atypical reproduceable chest wall pain - no fevers, rash reported, cough, URI. He has stable VS and not pleuritic doubt VTE, he has been seen for this recently with negative EKG and trop - at this time it is reproduceable and atypical I am going to obtain troponin, EKG. He has had 5 negative troponins this month. Differential Diagnosis Differential Diagnoses: The differential diagnosis associated with the presentation includes chest wall pain, atypical chest pain doubt VTE given no pleuritic chest pain and VS stable Admission/Observation Consideration of admission/observation: Escalation of care including admission/observation considered ekg reassuring, trop negative stable for DC Lab Data MDM Lab Attestation statement: I reviewed the patient's lab results. 06/30/24 16:37 06/30/24 16:37 Labs: Lab Results 06/30/24 Range/Units 16:37 WBC 4.8 (4.8-10.8) X10*3/uL RBC 4.20 L (4.60-5.80) X10*6/uL Hgb 12.6 L (14.0-18.0) g/dl Hct 36.9 L (42.0-52.0) % MCV 87.9 (80.0-98.0) fL MCH 30.0 (27.0-33.0) pg MCHC 34.1 (31.0-36.0) g/dl RDW 15.5 (11.0-16.0) % Plt Count 222 (160-400) X10*3/uL MPV 10.9 (9.4-12.4) fL Immature Gran % (Auto) 0.2 (0.0-0.4) % Neut % (Auto) 64.5 (45-73) % Lymph % (Auto) 28.1 (20-40) % [place] % (Auto) 5.8 (2-11) % Eos % (Auto) 1.0 (0-4) % Baso % (Auto) 0.4 (0-2) % Lymph # (Auto) 1.4 (1.2-4.9) X10*3/uL [place] # (Auto) 0.3 (0.1-1.2) X10*3/uL Eos # (Auto) 0.1 (0.0-0.4) X10*3/uL Baso # (Auto) 0.0 (0.0-0.2) X10*3/uL Abs Immat Gran (auto) 0.01 (0.00-0.03) X10*3/uL Absolute Neuts (auto) 3.1 (2.0-8.3) x10*3/uL Absolute Nucleated RBC 0.000 (0.0-0.012) X10*3/uL Nucleated RBC % (auto) 0.0 (0.0-0.2) /100WBC PT 11.8 (10.9-12.4) SEC INR 1.0 (0.9-1.1) Sodium 143 (135-145) mmol/L Potassium 4.5 (3.3-5.1) mmol/L Chloride 110 H (96-108) mmol/L Carbon Dioxide 26 (22-29) mmol/L Anion Gap 12 (12-20) BUN 24 H (9-16) mg/dL Creatinine 1.39 (0.5-1.4) mg/dL Estim Creat Clear Calc 72.2 Estimated GFR 53 Random Glucose 76 (60-115) mg/dL Calcium 9.1 (8.4-10.2) mg/dL Total Bilirubin 0.3 (0.0-1.0) mg/dL AST 21 (5-37) U/L ALT 13 (0-40) U/L Alkaline Phosphatase 62 (39-117) U/L Troponin I High Sens 3.3 (<3.5-35.0) ng/L B-Natriuretic Peptide 30 (<100) pg/mL Total Protein 6.3 L (6.5-8.0) g/dL Albumin 3.3 L (3.5-5.0) g/dL TSH 1.35 (0.32-4.0) uIU/mL Independent Interpretation I performed an independent interpretation of an: EKG and Plain X-Ray (normal ) Interpretation: Rate: 61 Rhythm: NSR [place]: left, LVH Normal P waves. Normal BLANCA. Normal QRS complex. ST T wave : no JUAN, inverted t waves III and avf qTC: 436 prior studies: no change from prior The study has been interpreted contemporaneously by me. . Radiology Impression Discussion of test interpretation with radiology: I have reviewed the radiologist's reading. Independent Historian Clinical information obtained from an independent historian. History obtained from or confirmed by: EMS External Record Review External record reviewed: Inpatient record and Outpatient record Discharge Plan Discharge Clinical Impression: Atypical chest pain Patient Disposition: Home, Self-Care Instructions: Chest Pain (ED) Additional Instructions: your labs and Chest xray were reassuring your EKG was also reassuring please return if you have any change or worsening symptoms Prescriptions: No Action cholecalciferol (vitamin D3) 50 mcg (2,000 unit) capsule 50 mcg PO DAILY 90 Days Qty: 90 3RF metformin 1,000 mg tablet 1,000 mg PO BID 90 Days Qty: 180 1RF atorvastatin 40 mg tablet 40 mg PO DAILY 90 Days Qty: 90 1RF meclizine 25 mg tablet 25 mg PO TID PRN (Reason: dizziness) Qty: 20 0RF docusate sodium 100 mg Capsule 100 mg PO BEDTIME Qty: 30 0RF aripiprazole [Abilify] 5 mg Tablet 5 mg PO DAILY 30 Days Qty: 30 0RF benztropine 0.5 mg Tablet 0.5 mg PO BID 30 Days Qty: 60 0RF hydroxyzine HCl 25 mg Tablet 25 mg PO BID@0900,1700 30 Days Qty: 60 0RF thiamine HCl (vitamin B1) 100 mg tablet 100 mg PO BID melatonin 3 mg tablet 6 mg PO BEDTIME trazodone 50 mg tablet 50 mg PO BEDTIME PRN (Reason: insomnia) atenolol 25 mg tablet 25 mg PO DAILY tamsulosin 0.4 mg capsule 0.4 mg PO BEDTIME ferrous sulfate 325 mg (65 mg iron) tablet 325 mg PO DAILY omeprazole 40 mg capsule,delayed release(DR/EC) 40 mg PO DAILY haloperidol [Haldol] 10 mg Tablet 10 mg PO BEDTIME insulin glargine-yfgn 100 unit/mL (3 mL) insulin pen 20 unit subcut QPM bupropion HCl 150 mg tablet extended release 24 hr 150 mg PO DAILY prednisone 20 mg tablet 40 mg PO DAILY Qty: 6 0RF albuterol sulfate 90 mcg/actuation HFA aerosol inhaler 2 puff inhalation Q4-6H PRN (Reason: shortness of breath or wheezing) Qty: 6.7 0RF aripiprazole [Abilify] 5 mg tablet 5 mg PO DAILY Qty: 7 0RF atenolol 25 mg tablet 25 mg PO DAILY Qty: 7 0RF trazodone 50 mg tablet 50 mg PO BEDTIME PRN (Reason: insomnia) Qty: 7 0RF tamsulosin [Flomax] 0.4 mg capsule 0.4 mg PO BEDTIME Qty: 7 0RF thiamine HCl (vitamin B1) 100 mg tablet 100 mg PO BID Qty: 14 0RF atorvastatin [Lipitor] 40 mg tablet 40 mg PO DAILY Qty: 7 0RF haloperidol 10 mg tablet 10 mg PO BEDTIME Qty: 7 0RF hydroxyzine HCl 25 mg tablet 25 mg PO BID Qty: 14 0RF bupropion HCl [Wellbutrin XL] 150 mg tablet extended release 24 hr 150 mg PO QAM Qty: 7 0RF insulin glargine [Lantus Solostar U-100 Insulin] 100 unit/mL (3 mL) insulin pen 20 unit subcut QPM Qty: 3 0RF Print Language: Montserratian
[2024-06-30 16:42] LABS: MANUAL DIFF FLAG NO
[2024-06-30 16:44] LABS: Basophils Percent Auto 0.4 % (0-2); Eosinophils Absolute Auto 0.1 X10*3/uL (0.0-0.4); Hematocrit 36.9 % (42.0-52.0); Hemoglobin 12.6 g/dl (14.0-18.0); Imm Gran Abs Auto 0.01 X10*3/uL (0.00-0.03); Imm Gran Pct Auto 0.2 % (0.0-0.4); Lymphocytes Absolute Auto 1.4 X10*3/uL (1.2-4.9); Lymphocytes Percent Auto 28.1 % (20-40); Mean Corpuscular HGB Conc 34.1 g/dl (31.0-36.0); Mean Corpuscular Volume 87.9 fL (80.0-98.0); Mean Platelet Volume 10.9 fL (9.4-12.4); Monocytes Absolute Auto 0.3 X10*3/uL (0.1-1.2); Monocytes Percent Auto 5.8 % (2-11); Neutrophils Absolute Auto 3.1 x10*3/uL (2.0-8.3); Neutrophils Percent Auto 64.5 % (45-73); Platelet Count 222 X10*3/uL (160-400); Red Cell Distribution Width 15.5 % (11.0-16.0); White Blood Count 4.8 X10*3/uL (4.8-10.8)
[2024-06-30 16:55] LABS: Prothrombin Time 11.8 SEC (10.9-12.4)
[2024-06-30 17:05] LABS: B Type Natriuretic Peptide 30 pg/mL (<100)
[2024-06-30 17:07] LABS: Troponin-I High Sensitivity 3.3 ng/L (<3.5-35.0)
[2024-06-30 17:09] LABS: Alanine Aminotransferase 13 U/L (0-40); Albumin Level 3.3 g/dL (3.5-5.0); Alkaline Phosphatase 62 U/L (39-117); Anion Gap 12 (12-20); Aspartate Amino Transferase 21 U/L (5-37); Bilirubin Total 0.3 mg/dL (0.0-1.0); Blood Urea Nitrogen 24 mg/dL (9-16); Calcium 9.1 mg/dL (8.4-10.2); Carbon Dioxide 26 mmol/L (22-29); Chloride 110 mmol/L (96-108); Creatinine Clr Calc Pharmacy 72.2; Estimated Glomerular Filt Rate 53; Glucose Random 76 mg/dL (60-115); Potassium 4.5 mmol/L (3.3-5.1); Sodium 143 mmol/L (135-145); Total Protein 6.3 g/dL (6.5-8.0)
[2024-06-30 17:22] LABS: TSH reflex Free T4 1.35 uIU/mL (0.32-4.0)
--- OUTSIDE RECORDS SUMMARY | 2024-06-30 21:09 | XMS_ITS | Patient Health Record ---
Author Organization [facility] Address [address] [place] [address] Care Team Providers Care Digital Account Executive Name Role Phone Fox Ku MD Primary Care Provider Tashi Bruno Unavailable [phone] Alisha Moore Unavailable Unavailable ALLERGIES No Known Allergies RESULTS Component Value Reference Range Notes Pathology (Not yet reviewed by provider) Interpretation: Performing Lab:[facility], [address] [place] [phone] Notes/Report: Glucose, Whole Blood Reviewed date:07/13/2023 07:14:58 PM Interpretation: Performing Lab:[facility], [address] [place] [phone] Notes/Report: Glucose, Whole Blood 114 60-115 mg/dL METER # : [id number] REASON FOR REFERRAL No Information MEDICATIONS Medication [...] iron deficiency anemia type (D50.9) Active confirmed 89559270 Problem History of adenomatous polyp of colon (Z86.010) Active confirmed 825001709 Problem Colon cancer screening (Z12.11) Active confirmed 302253818 Problem Preprocedural examination (Z01.818) Active confirmed 513821848141982 Problem Gastroesophageal reflux disease without esophagitis (K21.9) Active confirmed 177510829 Problem Diverticulosis of large intestine without perforation or abscess without bleeding (K57.30) Active confirmed Diverticul ar disease of colon (057575908) Encounters Encounter Location Date Provider Diagnosis [facility] [address] [place] [id number] 07/13/2023 Tashi Currie Encounter for scre ening [...] Insured Coverage Start Date Coverage End Date [facility] [address] [address] [place], [place] [id number] KIAN MAHMOOD Self - patient is the insured MED[place] OF [place] [address] [place] [address] [id number] KIAN MAHMOOD Self - patient is the [...] History Surgery Date(Month/Year) Mass removed--Dr. Fields at [facility]-- Be nign , but had XRT 2008 Right inguinal hernia 1990 Ear tubes/Adenoids
--- OUTSIDE RECORDS SUMMARY | 2024-06-30 21:09 | XMS_ITS | Encounter Summary ---
Author Organization [facility] Address [address] [place] [id number] Care Team Providers Care Wing Commander Name Role Phone Unavailable Primary Care Provider Unavailabl e Encounter Details Date Type Department Care Team (Late st Contact Info) Description 12/23/2021 Scanned Document [facility] [address] [place] [id number] Gastroenterology, Scan Social History Tobacco Use Types [...]
--- OUTSIDE RECORDS SUMMARY | 2024-06-30 21:09 | XMS_ITS | Clinical Summary ---
Author Organization [facility] Address [address] [place] [address] Care Team Providers Care Nurses Director Name Role Phone Bon Arvizu MD Primary Care Provider [phone] Allergies No known active allergies Medications Ventolin [...] Only [facility] [address] [place] [address] Tashi Bonner MD [address] [address] Stage 3a chronic kidney disease (HCC); Type 2 diabetes mellitus with diabetic chronic kidney disease (HCC) 08/04/2024 1:15 PM EDT Office Visit [facility] [address] [place] [address] Tashi Bonner MD [address] [address] Health Maintenance Due Date Last [...] Exam 09/25/2022 Influenza Vaccine (#1) [address] [place] [address] [place] [address] Care Teams Nurses Director Relationship Specialty Start Date End Date Bon Arvizu MD [address] [place] [id number] PCP - General Internal Medicine 06/04/22
--- OUTSIDE RECORDS SUMMARY | 2024-06-30 21:09 | XMS_ITS ---
Author Organization [facility] Address [address] [place] [address] Care Team Providers Care Accounting File Clerk Name Role Phone Fox Ku MD Primary Care Provider Tashi Bruno Unavailable [phone] Alisha Moore Unavailable Unavailable REASON FOR VISIT screening,hx polyps PROBLEMS Problem Type ICD Code Onset Dates Problem Status W/U Status Risk SNOMED Code Notes Problem Diverticulosis of large intestine without perforation or abscess without bleeding (K57.30) Active confirmed Diverticul ar disease of colon (277176420) Encounters Encounter Location Date Provider Diagnosis [facility] Out[facility] [address] [place] [phone] 07/13/2023 Tashi Currie Encounter for scre ening [...]
--- OUTSIDE RECORDS SUMMARY | 2024-06-30 21:09 | XMS_ITS ---
Author Organization [facility] Address [address] [place] [address] Care Team Providers Care Barker Peeler Name Role Phone Fox Ku MD Primary Care Provider Tashi Bruno [phone] Alisha Moore Unavailable Unavailable REASON FOR VISIT [...] Active Encounters Encounter Location Date Provider Diagnosis [facility] [address] [place] [id number] 04/17/2023 Tashi Currie PLAN OF TREATMENT Medication [...]
--- OUTSIDE RECORDS SUMMARY | 2024-06-30 21:09 | XMS_ITS | Clinical Summary ---
Author Organization [facility] Address [address] [place] [address] Care Team Providers Care Property Manager Name Role Phone Unavailable Primary Care [...]
[2024-06-30 22:00] VITALS: BP 109/59; PULSE 63; RESP 18; TEMP 37.3; O2SAT 97
[2024-06-30 22:09] VITALS: BP 109/59; PULSE 63; RESP 18; TEMP 37.3; O2SAT 97
== END 2024-06-30 22:10 | disposition home or self-care (01) ==
PROVIDERS: Registered Nurse Emergency; Emergency Provider Emergency Medicine; PCP Internal Medicine
DX: R07.89 Other chest pain (principal); M79.602 Pain in left arm; E11.9 Type 2 diabetes mellitus without complications; R06.02 Shortness of breath; Z79.4 Long term (current) use of insulin; Z79.899 Other long term (current) drug therapy
CPT/HCPCS: 36415; 71046; 80053; 83880; 84443; 84484; 85025; 85610; 93005; 99283; 99284

== ENCOUNTER → 2024-06-30 15:39 | Outpatient (BNV) | payer OTHER, SELFPAY | PROVIDERS: Emergency Provider Emergency Medicine; PCP Internal Medicine; Visit Provider Internal Medicine | DX: R07.9 Chest pain, unspecified (principal) | CPT/HCPCS: 93010 ==

== ENCOUNTER → 2024-06-30 16:31 | Outpatient (BNV) | payer OTHER, SELFPAY | PROVIDERS: Visit Provider Radiology Diagnostic Radiology | DX: R07.9 Chest pain, unspecified (principal) | CPT/HCPCS: 71046 ==

== ENCOUNTER 2024-07-01 15:02 | Emergency (ER) | payer OTHER, SELFPAY ==
[2024-07-01] VITALS (7 sets, daily range): BP systolic 117–132; BP diastolic 62–74; PULSE 57–73; RESP 16–20; TEMP 36.4–37; O2SAT 94–99; BMI 33.7
--- NOTE | 2024-07-01 15:07 | ED_ITS ---
HPI - General Adult General Chief complaint: Dizziness Stated complaint: Dizzy, weakness Time Seen by Provider: 07/01/24 21:08 Source: patient Mode of arrival: ambulatory Limitations: no limitations History of Present Illness ED Provider: HPI narrative: Patient's history of vertigo for some time today while at the drug store noticed dizziness again sat down feeling better now no nausea no vomiting no fever no chills patient did not eat much all day today patient was seen here on 06/30 been here 8 times in this month with multiple complaints Related Data Home Medications ?Medication ?Instructions ?Recorded ?Confirmed atenolol 25 mg tablet 25 mg PO DAILY 06/17/24 06/28/24 bupropion HCl 150 mg 24 hr tablet, 150 mg PO DAILY 06/17/24 06/28/24 extended release ferrous sulfate 325 mg (65 mg 325 mg PO DAILY 06/17/24 06/28/24 iron) tablet haloperidol 10 mg tablet 10 mg PO BEDTIME 06/17/24 06/28/24 insulin glargine-yfgn 100 unit/mL 20 unit subcut QPM 06/17/24 06/28/24 (3 mL) subcutaneous pen melatonin 3 mg tablet 6 mg PO BEDTIME 06/17/24 06/28/24 omeprazole 40 mg capsule,delayed 40 mg PO DAILY 06/17/24 06/28/24 release tamsulosin 0.4 mg capsule 0.4 mg PO BEDTIME 06/17/24 06/28/24 thiamine HCl (vitamin B1) 100 mg 100 mg PO BID 06/17/24 06/28/24 tablet trazodone 50 mg tablet 50 mg PO BEDTIME PRN insomnia 06/17/24 06/28/24 Previous Rx's ?Medication ?Instructions ?Recorded cholecalciferol (vitamin D3) 50 50 mcg PO DAILY 90 days #90 caps 10/06/23 mcg (2,000 unit) capsule metformin 1,000 mg tablet 1,000 mg PO BID 90 days #180 tabs 01/20/24 atorvastatin 40 mg tablet 40 mg PO DAILY 90 days #90 tabs 03/26/24 meclizine 25 mg tablet 25 mg PO TID PRN dizziness #20 tabs 05/02/24 docusate sodium 100 mg capsule 100 mg PO BEDTIME #30 caps 06/02/24 aripiprazole 5 mg tablet (Abilify) 5 mg PO DAILY 30 days #30 tabs 06/16/24 benztropine 0.5 mg tablet 0.5 mg PO BID 30 days #60 tabs 06/16/24 hydroxyzine HCl 25 mg tablet 25 mg PO BID@0900,1700 30 days #60 06/16/24 tabs prednisone 20 mg tablet 40 mg (2 x 20 mg) PO DAILY #6 tabs 06/20/24 albuterol sulfate 90 mcg/actuation 2 puff inhalation Q4-6H PRN 06/23/24 aerosol inhaler shortness of breath or wheezing #6.7 grams aripiprazole 5 mg tablet (Abilify) 5 mg PO DAILY #7 tabs 06/28/24 atenolol 25 mg tablet 25 mg PO DAILY #7 tabs 06/28/24 atorvastatin 40 mg tablet (Lipitor) 40 mg PO DAILY #7 tabs 06/28/24 bupropion HCl 150 mg 24 hr tablet, 150 mg PO QAM #7 tabs 06/28/24 extended release (Wellbutrin XL) haloperidol 10 mg tablet 10 mg PO BEDTIME #7 tabs 06/28/24 hydroxyzine HCl 25 mg tablet 25 mg PO BID #14 tabs 06/28/24 insulin glargine 100 unit/mL (3 20 unit (0.2 mL) subcut QPM #3 mL 06/28/24 mL) subcutaneous pen (Lantus Solostar U-100 Insulin) tamsulosin 0.4 mg capsule (Flomax) 0.4 mg PO BEDTIME #7 caps 06/28/24 thiamine HCl (vitamin B1) 100 mg 100 mg PO BID #14 tabs 06/28/24 tablet trazodone 50 mg tablet 50 mg PO BEDTIME PRN insomnia #7 06/28/24 tabs meclizine 25 mg tablet 25 mg PO TID PRN dizziness #20 tabs 07/01/24 Allergies Allergy/AdvReac Type Severity Reaction Status Date / Time pollen extracts [POLLEN] Allergy Mild RUNNY NOSE Verified 07/01/24 15:08 cat dander [CATS] Allergy Unknown UNKNOWN Verified 06/30/24 16:31 dog dander [DOGS] Allergy Unknown UNKNOWN Verified 06/30/24 16:31 mold [MOLD] Allergy Unknown UNKNOWN Verified 06/30/24 16:31 Review of Systems 2 Review of Systems: Yes all other systems are reviewed and are negative [facility] Past Medical History Medical History Psychosis Chest pain Suicidal ideation Recurrent major depression Allergic rhinitis Insomnia Palpitations Vitamin D deficiency Chronic kidney disease, stage III (moderate) GERD without esophagitis Restrictive lung disease Obesity (BMI 30-39.9) Benign essential hypertension Pure hypercholesterolemia Diabetes mellitus Pulmonary emboli Chondrosarcoma Hyperlipidemia Chronic restrictive lung disease COPD (chronic obstructive pulmonary disease) Asthma Surgical History History of esophagogastroduodenoscopy (EGD) H/O colonoscopy History of inguinal hernia repair Hx of exploratory thoracotomy H/O tooth extraction Family History Family History Father Hypertension Kidney failure, acute Mother Lung cancer Family/Other Diabetes Social History Social History Household Members: None Housing: Apartment Do you presently have visiting nurse or other home services: No Alcohol intake: never Patient Tobacco Use Status: Never used Tobacco Smoked in Last 30 Days: No e-Cigarette/Vaping Use: Never Used Second Hand Smoke Exposure: Yes Use of substances other than those prescribed or required for medical reasons: No Advance Directives: No Advance Directives Information Provided: Yes service: No Current occupational status: unemployed Sexual orientation: Straight/Heterosexual Cognitive needs: No Hearing needs: No Vision needs: Yes (Glasses) Physical Exam ED Vital Signs: Vital Signs - 24 hr 07/01/24 20:27 07/01/24 21:34 07/01/24 21:45 Temperature 97.7 F 98.6 F Pulse Rate 57 73 58 Respiratory Rate 18 20 Blood Pressure 130/71 128/73 132/64 Pulse Oximetry 97 99 Oxygen Delivery Method Room Air Room Air 07/01/24 21:46 07/01/24 21:47 07/01/24 22:57 Temperature 98.2 F Pulse Rate 63 68 68 Respiratory Rate 16 Blood Pressure 119/73 117/65 117/65 Pulse Oximetry 94 Oxygen Delivery Method Room Air BMI result Body Mass Index 33.7 Appearance: Alert. Oriented X3. No acute distress. Eyes: PERRLA, No Nystagmus ENT: Pharynx normal. Oral Mucosa moist Neck: Normal inspection. Neck supple. CVS: Normal heart rate and rhythm. Pulses normal. Respiratory: No respiratory distress. Equal air entry bilateral, no wheezing/rales/rhonchi Abdomen: Soft and nontender. Bowel sounds are present, no mass palpable, no CVA tenderness Skin: Skin warm and dry. Normal skin color. Normal skin turgor. Extremities: No lower extremity edema. No calf tenderness Neuro: Oriented X 3. No motor deficit. No sensory deficit.No cerebellar signs , cranial nerves II-XII intact Course Course Course Narrative: This is a rapid medical exam performed by Sherin Bennett PA-C. The patient is a 53-year-old male, well known to our emergency department as he is a high utilizer of resources, with a history of mood disorder, anxiety, depression, asthma, who presents with dizziness. Patient was at a store, he states he felt dizzy and ?shaky?, he lowered himself to the floor. There was no loss consciousness, no head strike. We will be screening basic labs, and a viral panel. The patient is stable and can return to the waiting room pending his full medical assessment. Medications Administered Discontinued Medications Generic Name Dose Route Start Last Admin Trade Name Freq PRN Reason Stop Dose Admin Meclizine HCl 25 mg 07/01/24 21:35 07/01/24 21:42 Meclizine Hcl 25 Mg Tablet PO 07/01/24 21:36 25 mg ONCE ONE Administration Medical Decision Making Medical Decision Making [facility] Narrative: Patient had food and which and fluids in the ER feeling much better was given meclizine for benign positional vertigo patient has been here 8 times this month coming almost every other day Lab Data [facility] Lab Attestation statement: I reviewed the patient's lab results. 07/01/24 15:33 07/01/24 15:33 Labs: Lab Results 07/01/24 Range/Units 15:33 WBC 7.5 (4.8-10.8) X10*3/uL RBC 4.55 L (4.60-5.80) X10*6/uL Hgb 13.3 L (14.0-18.0) g/dl Hct 40.3 L (42.0-52.0) % MCV 88.6 (80.0-98.0) fL MCH 29.2 (27.0-33.0) pg MCHC 33.0 (31.0-36.0) g/dl RDW 15.3 (11.0-16.0) % Plt Count 222 (160-400) X10*3/uL MPV 10.8 (9.4-12.4) fL Immature Gran % (Auto) 0.3 (0.0-0.4) % Neut % (Auto) 74.8 H (45-73) % Lymph % (Auto) 18.2 L (20-40) % [place] % (Auto) 5.5 (2-11) % Eos % (Auto) 0.9 (0-4) % Baso % (Auto) 0.3 (0-2) % Lymph # (Auto) 1.4 (1.2-4.9) X10*3/uL [place] # (Auto) 0.4 (0.1-1.2) X10*3/uL Eos # (Auto) 0.1 (0.0-0.4) X10*3/uL Baso # (Auto) 0.0 (0.0-0.2) X10*3/uL Abs Immat Gran (auto) 0.02 (0.00-0.03) X10*3/uL Absolute Neuts (auto) 5.6 (2.0-8.3) x10*3/uL Absolute Nucleated RBC 0.000 (0.0-0.012) X10*3/uL Nucleated RBC % (auto) 0.0 (0.0-0.2) /100WBC Sodium 144 (135-145) mmol/L Potassium 4.4 (3.3-5.1) mmol/L Chloride 109 H (96-108) mmol/L Carbon Dioxide 27 (22-29) mmol/L Anion Gap 12 (12-20) BUN 22 H (9-16) mg/dL Creatinine 1.46 H (0.5-1.4) mg/dL Estim Creat Clear Calc 67.2 Estimated GFR 51 Random Glucose 85 (60-115) mg/dL Calcium 9.5 (8.4-10.2) mg/dL Magnesium 1.9 (1.6-2.6) mg/dL Influenza Type A (PCR) NEGATIVE (Negative) Influenza Type B (PCR) NEGATIVE (Negative) RSV RNA Qual (PCR) NEGATIVE (Negative) SARS-CoV-2 RNA (RT-PCR) NEGATIVE (Negative) Discharge Plan Discharge Clinical Impression: Benign paroxysmal positional vertigo Patient Disposition: Home, Self-Care Instructions: Benign Paroxysmal Positional Vertigo (ED) Additional Instructions: Drink plenty of fluids Meclizine 1 tablet every 8 hours as needed for severe dizziness Care and cautions as advised Prescriptions: New meclizine 25 mg tablet 25 mg PO TID PRN (Reason: dizziness) Qty: 20 0RF No Action cholecalciferol (vitamin D3) 50 mcg (2,000 unit) capsule 50 mcg PO DAILY 90 Days Qty: 90 3RF metformin 1,000 mg tablet 1,000 mg PO BID 90 Days Qty: 180 1RF atorvastatin 40 mg tablet 40 mg PO DAILY 90 Days Qty: 90 1RF meclizine 25 mg tablet 25 mg PO TID PRN (Reason: dizziness) Qty: 20 0RF docusate sodium 100 mg Capsule 100 mg PO BEDTIME Qty: 30 0RF aripiprazole [Abilify] 5 mg Tablet 5 mg PO DAILY 30 Days Qty: 30 0RF benztropine 0.5 mg Tablet 0.5 mg PO BID 30 Days Qty: 60 0RF hydroxyzine HCl 25 mg Tablet 25 mg PO BID@0900,1700 30 Days Qty: 60 0RF thiamine HCl (vitamin B1) 100 mg tablet 100 mg PO BID melatonin 3 mg tablet 6 mg PO BEDTIME trazodone 50 mg tablet 50 mg PO BEDTIME PRN (Reason: insomnia) atenolol 25 mg tablet 25 mg PO DAILY tamsulosin 0.4 mg capsule 0.4 mg PO BEDTIME ferrous sulfate 325 mg (65 mg iron) tablet 325 mg PO DAILY omeprazole 40 mg capsule,delayed release(DR/EC) 40 mg PO DAILY haloperidol [Haldol] 10 mg Tablet 10 mg PO BEDTIME insulin glargine-yfgn 100 unit/mL (3 mL) insulin pen 20 unit subcut QPM bupropion HCl 150 mg tablet extended release 24 hr 150 mg PO DAILY prednisone 20 mg tablet 40 mg PO DAILY Qty: 6 0RF albuterol sulfate 90 mcg/actuation HFA aerosol inhaler 2 puff inhalation Q4-6H PRN (Reason: shortness of breath or wheezing) Qty: 6.7 0RF aripiprazole [Abilify] 5 mg tablet 5 mg PO DAILY Qty: 7 0RF atenolol 25 mg tablet 25 mg PO DAILY Qty: 7 0RF trazodone 50 mg tablet 50 mg PO BEDTIME PRN (Reason: insomnia) Qty: 7 0RF tamsulosin [Flomax] 0.4 mg capsule 0.4 mg PO BEDTIME Qty: 7 0RF thiamine HCl (vitamin B1) 100 mg tablet 100 mg PO BID Qty: 14 0RF atorvastatin [Lipitor] 40 mg tablet 40 mg PO DAILY Qty: 7 0RF haloperidol 10 mg tablet 10 mg PO BEDTIME Qty: 7 0RF hydroxyzine HCl 25 mg tablet 25 mg PO BID Qty: 14 0RF bupropion HCl [Wellbutrin XL] 150 mg tablet extended release 24 hr 150 mg PO QAM Qty: 7 0RF insulin glargine [Lantus Solostar U-100 Insulin] 100 unit/mL (3 mL) insulin pen 20 unit subcut QPM Qty: 3 0RF Interventions: ED Discharge Assessment Last Done: 07/01/24 22:57 Discharge Date/Time: 07/01/24 23:00 Print Language: [place]
--- OUTSIDE RECORDS SUMMARY | 2024-07-01 15:34 | XMS_ITS | Clinical Summary ---
Author Organization [facility] Address [address] [place] [address] Care Team Providers Care Lead Radiation Therapist Name Role Phone Unavailable Primary Care Provider [...]
--- OUTSIDE RECORDS SUMMARY | 2024-07-01 15:34 | XMS_ITS ---
Author Organization [facility] Address [address] [place] [id number] Care Team Providers Care Application Manager Name Role Phone Fox Ku MD Primary Care Provider Tashi Bruno Unavailable [phone] Alisha Moore Unavailable Unavailable ALLERGIES No Known [...] adenomatous polyp of colon (Z86.010) Active confirmed 367151296 Problem Colon cancer screening (Z12.11) Active confirmed 892368399 Problem Preprocedural examination (Z01.818) Active confirmed 953479435915113 Problem Gastroesophageal reflux disease without esophagitis (K21.9) Active confirmed 917112012 VITAL SIGNS BMI 40.13 kg/m2 04/17/2023 Blood pressure systolic 00 mm Hg 04/17/20 23 Blood pressure diastolic 00 mm Hg 023 Height 67.75 in 04/17/2023 Temperature 97.7 degrees Fahrenheit 04/17/20 23 Weight 262 lbs 04/17/2023 Encounters Encounter Location Date Provider Diagnosis [facility] [address] [place] [address] 04/17/2023 Tsahi Currie Preprocedural examin ation Z01.818 ; Gastroesophageal [...]
--- OUTSIDE RECORDS SUMMARY | 2024-07-01 15:34 | XMS_ITS | Clinical Summary ---
Author Organization [facility] Address [address] [place] [address] Care Team Providers Care Package Drier Name Role Phone Bon Arvizu MD Primary Care Provider [phone] Allergies No known active allergies Medications Ventolin [...] Only [facility] [address] [place] [address] Tashi Bonner MD [address] [address] Stage 3a chronic kidney disease (HCC); Type 2 diabetes mellitus with diabetic chronic kidney disease (HCC) 08/04/2024 1:15 PM EDT Office Visit [facility] [address] [place] [address] Tashi Bonner MD [address] [address] Health Maintenance Due Date Last [...] Exam 09/25/2022 Influenza Vaccine (#1) [address] [place] [address] [place] [address] Care Teams Package Drier Relationship Specialty Start Date End Date Bon Arvizu MD [address] [place] [phone] PCP - General Internal Medicine 06/04/22
--- OUTSIDE RECORDS SUMMARY | 2024-07-01 15:35 | XMS_ITS ---
Author Organization [facility] Address [address] [place] [address] Care Team Providers Care Armament Mechanic Name Role Phone Fox Ku MD Primary Care Provider Tashi Bruno [phone] Alisha Moore Unavailable Unavailable REASON FOR VISIT [...] Active Encounters Encounter Location Date Provider Diagnosis [facility] [address] [place] [phone] 04/17/2023 Tashi Currie PLAN OF TREATMENT Medication [...]
--- OUTSIDE RECORDS SUMMARY | 2024-07-01 15:35 | XMS_ITS | Patient Health Record ---
Author Organization [facility] Address [address] [place] [address] Care Team Providers Care Cashier Or Checker Stock Clerk Name Role Phone Fox Ku MD Primary Care Provider Tashi Bruno Unavailable [phone] Alisha Moore Unavailable Unavailable ALLERGIES No Known Allergies RESULTS Component Value Reference Range Notes Pathology (Not yet reviewed by provider) Interpretation: Performing Lab:[facility], [address] [place] [phone] Notes/Report: Glucose, Whole Blood Reviewed date:07/13/2023 07:14:58 PM Interpretation: Performing Lab:[facility], [address] [place] [phone] Notes/Report: Glucose, Whole Blood 114 60-115 mg/dL METER # : [id number] REASON FOR REFERRAL No Information MEDICATIONS Medication [...] iron deficiency anemia type (D50.9) Active confirmed 28783955 Problem History of adenomatous polyp of colon (Z86.010) Active confirmed 369401345 Problem Colon cancer screening (Z12.11) Active confirmed 255105524 Problem Preprocedural examination (Z01.818) Active confirmed 213313152812404 Problem Gastroesophageal reflux disease without esophagitis (K21.9) Active confirmed 296776653 Problem Diverticulosis of large intestine without perforation or abscess without bleeding (K57.30) Active confirmed Diverticul ar disease of colon (577555328) Encounters Encounter Location Date Provider Diagnosis [facility] [address] [place] [phone] 07/13/2023 Tashi Currie Encounter for scre ening [...] Coverage Start Date Coverage End Date [facility] [employer] [facility] [address] [address] [place], [place] [id number] KIAN MAHMOOD Self - patient is the insured MED[place] [address] [place] [address] [id number] KIAN MAHMOOD Self - patient is the insured MEDICAL (GENERAL) HISTORY Medical History History ICD Code IDDM Hypertension Heart murmur-Dr. Collins Asthma/COPD- Dr. Correa Pulmonary embolus in 2015--on Coumadin-- sees Dr. Moore Lung mass--surgery in 2008 a s below, with XRT; biopsied in approx 2015 and benign--followed by Dr. Tino Dimas [place],CVA,renal disease GERD--upper endoscopy August of 2017 with [...] History Surgery Date(Month/Year) Mass removed--Dr. Fields at [facility]-- Be nign , but had XRT 2008 Right inguinal hernia 1990 Ear tubes/Adenoids
--- OUTSIDE RECORDS SUMMARY | 2024-07-01 15:35 | XMS_ITS | Encounter Summary ---
Author Organization [facility] Address [address] [place] [id number] Care Team Providers Care Blockers Skiver Name Role Phone Unavailable Primary Care Provider Unavailabl e Encounter Details Date Type Department Care Team (Late st Contact Info) Description 12/23/2021 Scanned Document [address] [facility] [address] [place] [phone] Gastroenterology, Scan Social History Tobacco Use Types [...]
--- OUTSIDE RECORDS SUMMARY | 2024-07-01 15:35 | XMS_ITS ---
Author Organization [facility] Address [address] [place] [address] Care Team Providers Care Buff Wheel Fabricator Name Role Phone Fox Ku MD Primary Care Provider Tashi Bruno Unavailable [phone] Alisha Moore Unavailable Unavailable REASON FOR VISIT screening,hx polyps PROBLEMS Problem Type ICD Code Onset Dates Problem Status W/U Status Risk SNOMED Code Notes Problem Diverticulosis of large intestine without perforation or abscess without bleeding (K57.30) Active confirmed Diverticul ar disease of colon (159732349) Encounters Encounter Location Date Provider Diagnosis [facility] [address] [place] [phone] 07/13/2023 Tashi Currie Encounter for scre ening [...]
[2024-07-01 15:37] LABS: MANUAL DIFF FLAG NO
[2024-07-01 15:47] LABS: Basophils Percent Auto 0.3 % (0-2); Eosinophils Absolute Auto 0.1 X10*3/uL (0.0-0.4); Eosinophils Percent Auto 0.9 % (0-4); Hematocrit 40.3 % (42.0-52.0); Hemoglobin 13.3 g/dl (14.0-18.0); Imm Gran Abs Auto 0.02 X10*3/uL (0.00-0.03); Imm Gran Pct Auto 0.3 % (0.0-0.4); Lymphocytes Absolute Auto 1.4 X10*3/uL (1.2-4.9); Lymphocytes Percent Auto 18.2 % (20-40); Mean Corpuscular Hemoglobin 29.2 pg (27.0-33.0); Mean Corpuscular Volume 88.6 fL (80.0-98.0); Mean Platelet Volume 10.8 fL (9.4-12.4); Monocytes Absolute Auto 0.4 X10*3/uL (0.1-1.2); Monocytes Percent Auto 5.5 % (2-11); Neutrophils Absolute Auto 5.6 x10*3/uL (2.0-8.3); Neutrophils Percent Auto 74.8 % (45-73); Platelet Count 222 X10*3/uL (160-400); Red Blood Count 4.55 X10*6/uL (4.60-5.80); Red Cell Distribution Width 15.3 % (11.0-16.0); White Blood Count 7.5 X10*3/uL (4.8-10.8)
[2024-07-01 15:52] LABS: Anion Gap 12 (12-20); Blood Urea Nitrogen 22 mg/dL (9-16); Calcium 9.5 mg/dL (8.4-10.2); Carbon Dioxide 27 mmol/L (22-29); Chloride 109 mmol/L (96-108); Creatinine Clr Calc Pharmacy 67.2; Estimated Glomerular Filt Rate 51; Glucose Random 85 mg/dL (60-115); Magnesium 1.9 mg/dL (1.6-2.6); Potassium 4.4 mmol/L (3.3-5.1); Sodium 144 mmol/L (135-145)
[2024-07-01 16:16] LABS: Influenza A PCR NEGATIVE (Negative); Influenza B PCR NEGATIVE (Negative); Resp Syncy Virus RNA Qual PCR NEGATIVE (Negative); SARS COV2 PCR INHOUSE NEGATIVE (Negative)
[2024-07-01] MEDS: Meclizine HCl 25 MG TABLET PO (21:42)
== END 2024-07-01 23:00 | disposition home or self-care (01) ==
PROVIDERS: Physician Assistant Medical; Emergency Provider Internal Medicine
DX: R42 Dizziness and giddiness (principal); H81.10 Benign paroxysmal vertigo, unspecified ear; Z03.818 Encounter for observation for suspected exposure to other biological agents ruled out; Z79.899 Other long term (current) drug therapy
CPT/HCPCS: 0241U; 80048; 83735; 85025; 99283; 99284

== ENCOUNTER 2024-07-02 16:22 | Emergency (ER) | payer OTHER, SELFPAY ==
--- NOTE | ~2024-07-02 | XR_ITS ---
CLINICAL HISTORY: pain, injury 3 view left shoulder Comparison: None Findings: Chronic healed fracture of the left 3rd rib. No acute fracture. No dislocation. No significant loss of joint space or osteophytes. No erosions. No radiopaque foreign body. IMPRESSION: 1. No acute findings This document has been electronically signed by: Mari Mcrae MD on 07/02/2024 18:37:55
--- NOTE | ~2024-07-02 | CT_ITS ---
CLINICAL HISTORY: pain CT cervical spine without contrast Comparison: CT/SR - CT CERVICAL SPINE WO IV CON - 06/26/24 13:52 EST Findings: Vertebral alignment is within normal limits. Mild degenerative changes. No acute fractures or dislocations. No acute findings on limited view of the intracranial contents. Soft tissues of the neck are normal. Lung apices are clear. IMPRESSION: No acute cervical spine fracture. This document has been electronically signed by: Mari Mcrae MD on 07/02/2024 18:42:26
--- NOTE | ~2024-07-02 | CT_ITS ---
CLINICAL HISTORY: pain, fall CT head without contrast Comparison: CT/SR - CT HEAD/BRAIN WO IV CON - 06/26/24 13:52 EST Findings: No intra-axial mass, midline shift, hydrocephalus, or acute hemorrhage. Appropriate brain volume. Mild white matter disease. There is no sinus or mastoid fluid. The orbits are within normal limits. No skull fracture. IMPRESSION: 1. No acute intracranial findings. This document has been electronically signed by: Mari Mcrae MD on 07/02/2024 18:54:47
--- NOTE | ~2024-07-02 | CT_ITS ---
CLINICAL HISTORY: Slip and fall, left sided facial pain CT maxillofacial without contrast Comparison: CT/SR - CT HEAD/BRAIN WO IV CON - 06/26/24 13:52 EST Findings: No acute fractures. No dislocations. Temporomandibular joints are intact. Paranasal sinuses and mastoid air cells clear. Orbital contents within normal limits. Visualized intracranial contents are within normal limits. No foreign bodies. IMPRESSION: No acute displaced facial bone fracture. This document has been electronically signed by: Mari Mcrae MD on 07/02/2024 18:56:49
[2024-07-02 17:06] VITALS: BP 120/53; PULSE 69; RESP 16; TEMP 37.2; O2SAT 98; BMI 34.2
--- NOTE | 2024-07-02 17:08 | ED_ITS ---
HPI - General Adult General Chief complaint: Fall Stated complaint: fell hit his head on the ice Time Seen by Provider: 07/02/24 18:58 Source: patient Limitations: no limitations History of Present Illness ED Provider: Sherin Bennett PA-C HPI narrative: 53-year-old male with a history of depression, prior psychosis, suicidal ideation, anxiety, asthma, COPD, hyperlipidemia, diabetes, hypertension, obesity, chronic kidney disease, who is well known to our emergency department given he is a high utilizer of resources, today being his 9th visit since June 09, presents after a fall. Patient states he slipped on the ice and fell, landing on his left side. Patient states he did strike his head, but he did lose consciousness and that he does use a blood thinner. Patient complains of headache, neck pain facial pain and left shoulder pain. Denies nausea vomiting. Related Data Home Medications ?Medication ?Instructions ?Recorded ?Confirmed atenolol 25 mg tablet 25 mg PO DAILY 06/17/24 06/28/24 bupropion HCl 150 mg 24 hr tablet, 150 mg PO DAILY 06/17/24 06/28/24 extended release ferrous sulfate 325 mg (65 mg 325 mg PO DAILY 06/17/24 06/28/24 iron) tablet haloperidol 10 mg tablet 10 mg PO BEDTIME 06/17/24 06/28/24 insulin glargine-yfgn 100 unit/mL 20 unit subcut QPM 06/17/24 06/28/24 (3 mL) subcutaneous pen melatonin 3 mg tablet 6 mg PO BEDTIME 06/17/24 06/28/24 omeprazole 40 mg capsule,delayed 40 mg PO DAILY 06/17/24 06/28/24 release tamsulosin 0.4 mg capsule 0.4 mg PO BEDTIME 06/17/24 06/28/24 thiamine HCl (vitamin B1) 100 mg 100 mg PO BID 06/17/24 06/28/24 tablet trazodone 50 mg tablet 50 mg PO BEDTIME PRN insomnia 06/17/24 06/28/24 Previous Rx's ?Medication ?Instructions ?Recorded cholecalciferol (vitamin D3) 50 50 mcg PO DAILY 90 days #90 caps 10/06/23 mcg (2,000 unit) capsule metformin 1,000 mg tablet 1,000 mg PO BID 90 days #180 tabs 09/11/24 atorvastatin 40 mg tablet 40 mg PO DAILY 90 days #90 tabs 03/26/24 meclizine 25 mg tablet 25 mg PO TID PRN dizziness #20 tabs 05/02/24 docusate sodium 100 mg capsule 100 mg PO BEDTIME #30 caps 06/02/24 aripiprazole 5 mg tablet (Abilify) 5 mg PO DAILY 30 days #30 tabs 06/16/24 benztropine 0.5 mg tablet 0.5 mg PO BID 30 days #60 tabs 06/16/24 hydroxyzine HCl 25 mg tablet 25 mg PO BID@0900,1700 30 days #60 06/16/24 tabs prednisone 20 mg tablet 40 mg (2 x 20 mg) PO DAILY #6 tabs 06/20/24 albuterol sulfate 90 mcg/actuation 2 puff inhalation Q4-6H PRN 06/23/24 aerosol inhaler shortness of breath or wheezing #6.7 grams aripiprazole 5 mg tablet (Abilify) 5 mg PO DAILY #7 tabs 06/28/24 atenolol 25 mg tablet 25 mg PO DAILY #7 tabs 06/28/24 atorvastatin 40 mg tablet (Lipitor) 40 mg PO DAILY #7 tabs 06/28/24 bupropion HCl 150 mg 24 hr tablet, 150 mg PO QAM #7 tabs 06/28/24 extended release (Wellbutrin XL) haloperidol 10 mg tablet 10 mg PO BEDTIME #7 tabs 06/28/24 hydroxyzine HCl 25 mg tablet 25 mg PO BID #14 tabs 06/28/24 insulin glargine 100 unit/mL (3 20 unit (0.2 mL) subcut QPM #3 mL 06/28/24 mL) subcutaneous pen (Lantus Solostar U-100 Insulin) tamsulosin 0.4 mg capsule (Flomax) 0.4 mg PO BEDTIME #7 caps 06/28/24 thiamine HCl (vitamin B1) 100 mg 100 mg PO BID #14 tabs 06/28/24 tablet trazodone 50 mg tablet 50 mg PO BEDTIME PRN insomnia #7 06/28/24 tabs meclizine 25 mg tablet 25 mg PO TID PRN dizziness #20 tabs 07/01/24 Allergies Allergy/AdvReac Type Severity Reaction Status Date / Time pollen extracts [POLLEN] Allergy Mild RUNNY NOSE Verified 07/02/24 17:13 cat dander [CATS] Allergy Unknown UNKNOWN Verified 07/02/24 17:13 dog dander [DOGS] Allergy Unknown UNKNOWN Verified 07/02/24 17:13 mold [MOLD] Allergy Unknown UNKNOWN Verified 07/02/24 17:13 Review of Systems Review of Systems: Yes all other systems are reviewed and are negative Constitutional: Constitutional: Denies fatigue, Denies fever(s) and Reports headache(s) ENT: Reports headache(s) and Reports neck pain Cardiovascular: Cardiovascular: Denies chest pain and Denies dyspnea Respiratory: Respiratory: Denies dyspnea Gastrointestinal: Gastrointestinal: Denies abdominal pain Musculoskeletal: Musculoskeletal: Reports arthralgias, Denies joint swelling and Reports neck pain Neurologic: Reports headache(s) Endocrine: Endocrine: Denies fatigue PMFSH Past Medical History Attestation statement: The following information was validated with the patient. Medical History Psychosis Chest pain Suicidal ideation Recurrent major depression Allergic rhinitis Insomnia Palpitations Vitamin D deficiency Chronic kidney disease, stage III (moderate) GERD without esophagitis Restrictive lung disease Obesity (BMI 30-39.9) Benign essential hypertension Pure hypercholesterolemia Diabetes mellitus Pulmonary emboli Chondrosarcoma Hyperlipidemia Chronic restrictive lung disease COPD (chronic obstructive pulmonary disease) Asthma Surgical History History of esophagogastroduodenoscopy (EGD) H/O colonoscopy History of inguinal hernia repair Hx of exploratory thoracotomy H/O tooth extraction Family History Family History Father Hypertension Kidney failure, acute Mother Lung cancer Family/Other Diabetes Social History Social History Household Members: None Housing: Apartment Do you presently have visiting nurse or other home services: No Alcohol intake: never Patient Tobacco Use Status: Never used Tobacco e-Cigarette/Vaping Use: Never Used Second Hand Smoke Exposure: Yes Advance Directives: No Advance Directives Information Provided: Yes Do you have a plan to hurt others: No Plan service: No Current occupational status: unemployed Sexual orientation: Straight/Heterosexual Cognitive needs: No Hearing needs: No Vision needs: Yes (Glasses) Physical Exam ED Vital Signs: Vital Signs - 24 hr 07/02/24 17:06 Temperature 98.9 F Pulse Rate 69 Respiratory Rate 16 Blood Pressure 120/53 L Pulse Oximetry 98 Oxygen Delivery Method Room Air BMI result Body Mass Index 34.2 Const Other: Alert, no sign of head or facial trauma on exam, appears older than stated age Orientation/consciousness: patient oriented x3 Resp Effort & Inspection: normal respiratory effort Cardio Other: Normal peripheral perfusion Skin Other: Warm dry no rash Neuro General: patient oriented x3, gait normal, no focal motor deficits and CN's II- XI intact bilaterally Extrem Other: Full range of motion left shoulder Psych Other: Cooperative Course Course Course Narrative: RME performed by Zenaida June PA-C. Patient is a 53 year old assigned male at presenting to the emergency department with a headache, face pain, and left upper arm pain after a fall. Detailed physical exam and review of systems are deferred to the mobile sales consultant. Imaging ordered. Patient placed back in the waiting room pending room availability and results. Medical Decision Making Medical Decision Making MDM Narrative: 53-year-old male with a history of depression, prior psychosis, suicidal ideation, anxiety, asthma, COPD, hyperlipidemia, diabetes, hypertension, obesity, chronic kidney disease, who is well known to our emergency department given he is a high utilizer of resources, today being his 9th visit since June 09, presents after a fall. Patient states he slipped on the ice and fell, landing on his left side. Patient states he did strike his head, but he did lose consciousness and that he does use a blood thinner. Patient complains of headache, neck pain facial pain and left shoulder pain. Denies nausea vomiting. Problem: Psychiatric illness, diabetes History: Per patient I have considered the following differential diagnoses: Intracranial hemorrhage, cervical spine injury, facial bone fracture, dislocation/fracture Plan: Imaging was ordered from triage, everything is negative. I have independently reviewed the following tests: X-ray left shoulder: IMPRESSION: 1. No acute findings This document has been electronically signed by: Mari Mcrae MD on 07/02/2024 18:37:55 CT brain: MPRESSION: 1. No acute intracranial findings. This document has been electronically signed by: Mari Mcrae MD on 07/02/2024 18:54:47 CT cervical spine: IMPRESSION: No acute cervical spine fracture. This document has been electronically signed by: Mari Mcrae MD on 07/02/2024 18:42:26 CT max face:IMPRESSION: No acute displaced facial bone fracture. This document has been electronically signed by: Mari Mcrae MD on 07/02/2024 18:56:49 Discharge Plan Discharge Clinical Impression: Contusion Patient Disposition: Home, Self-Care Instructions: Bone Bruise (ED) Additional Instructions: The CT scans of your face, cervical spine and brain were negative for acute injury. The x-ray of the shoulder was negative as well. You likely have a contusion. See home care instructions. Use xlht-stz-jkbovlv ibuprofen 600 mg taken every 6 hours with food, alternated with uztc-fdc-frdnbsj Tylenol 1000 mg taken every 8 hours, for your discomfort. Follow up with your primary care provider as needed. Prescriptions: No Action cholecalciferol (vitamin D3) 50 mcg (2,000 unit) capsule 50 mcg PO DAILY 90 Days Qty: 90 3RF metformin 1,000 mg tablet 1,000 mg PO BID 90 Days Qty: 180 1RF atorvastatin 40 mg tablet 40 mg PO DAILY 90 Days Qty: 90 1RF meclizine 25 mg tablet 25 mg PO TID PRN (Reason: dizziness) Qty: 20 0RF docusate sodium 100 mg Capsule 100 mg PO BEDTIME Qty: 30 0RF aripiprazole [Abilify] 5 mg Tablet 5 mg PO DAILY 30 Days Qty: 30 0RF benztropine 0.5 mg Tablet 0.5 mg PO BID 30 Days Qty: 60 0RF hydroxyzine HCl 25 mg Tablet 25 mg PO BID@0900,1700 30 Days Qty: 60 0RF thiamine HCl (vitamin B1) 100 mg tablet 100 mg PO BID melatonin 3 mg tablet 6 mg PO BEDTIME trazodone 50 mg tablet 50 mg PO BEDTIME PRN (Reason: insomnia) atenolol 25 mg tablet 25 mg PO DAILY tamsulosin 0.4 mg capsule 0.4 mg PO BEDTIME ferrous sulfate 325 mg (65 mg iron) tablet 325 mg PO DAILY omeprazole 40 mg capsule,delayed release(DR/EC) 40 mg PO DAILY haloperidol [Haldol] 10 mg Tablet 10 mg PO BEDTIME insulin glargine-yfgn 100 unit/mL (3 mL) insulin pen 20 unit subcut QPM bupropion HCl 150 mg tablet extended release 24 hr 150 mg PO DAILY prednisone 20 mg tablet 40 mg PO DAILY Qty: 6 0RF albuterol sulfate 90 mcg/actuation HFA aerosol inhaler 2 puff inhalation Q4-6H PRN (Reason: shortness of breath or wheezing) Qty: 6.7 0RF aripiprazole [Abilify] 5 mg tablet 5 mg PO DAILY Qty: 7 0RF atenolol 25 mg tablet 25 mg PO DAILY Qty: 7 0RF trazodone 50 mg tablet 50 mg PO BEDTIME PRN (Reason: insomnia) Qty: 7 0RF tamsulosin [Flomax] 0.4 mg capsule 0.4 mg PO BEDTIME Qty: 7 0RF thiamine HCl (vitamin B1) 100 mg tablet 100 mg PO BID Qty: 14 0RF atorvastatin [Lipitor] 40 mg tablet 40 mg PO DAILY Qty: 7 0RF haloperidol 10 mg tablet 10 mg PO BEDTIME Qty: 7 0RF hydroxyzine HCl 25 mg tablet 25 mg PO BID Qty: 14 0RF bupropion HCl [Wellbutrin XL] 150 mg tablet extended release 24 hr 150 mg PO QAM Qty: 7 0RF insulin glargine [Lantus Solostar U-100 Insulin] 100 unit/mL (3 mL) insulin pen 20 unit subcut QPM Qty: 3 0RF meclizine 25 mg tablet 25 mg PO TID PRN (Reason: dizziness) Qty: 20 0RF Print Language: Mongolian
--- OUTSIDE RECORDS SUMMARY | 2024-07-02 18:15 | XMS_ITS | Patient Health Record ---
Author Organization [place] [facility] Address [address] [place] [address] Care Team Providers Care Lithograph Designer Name Role Phone Fox Ku MD Primary Care Provider Tashi Bruno Unavailable [phone] Alisha Moore Unavailable Unavailable ALLERGIES No Known Allergies RESULTS Component Value Reference Range Notes Pathology (Not yet reviewed by provider) Interpretation: Performing Lab:[facility], [address] [place] [phone] Notes/Report: Glucose, Whole Blood Reviewed date:07/13/2023 07:14:58 PM Interpretation: Performing Lab:[facility], [address] [place] [phone] Notes/Report: Glucose, Whole Blood 114 60-115 mg/dL METER # : [id number] REASON FOR REFERRAL No Information MEDICATIONS Medication [...] iron deficiency anemia type (D50.9) Active confirmed 36896532 Problem History of adenomatous polyp of colon (Z86.010) Active confirmed 636433461 Problem Colon cancer screening (Z12.11) Active confirmed 391508515 Problem Preprocedural examination (Z01.818) Active confirmed 990849155769825 Problem Gastroesophageal reflux disease without esophagitis (K21.9) Active confirmed 176237037 Problem Diverticulosis of large intestine without perforation or abscess without bleeding (K57.30) Active confirmed Diverticul ar disease of colon (570152769) Encounters Encounter Location Date Provider Diagnosis [facility] Outpatient [address] [place] [id number] 07/13/2023 Tashi Currie Encounter for scre ening [...] Insured Coverage Start Date Coverage End Date [facility] [employer] [facility] [address] [address] [place], [place] [id number] KIAN MAHMOOD Self - patient is the insured MEDICAID OF [email or web address] [address] [place] [address] [id number] KIAN MAHMOOD Self - patient is the insured MEDICAL (GENERAL) HISTORY Medical History History ICD Code IDDM Hypertension Heart murmur-Dr. Collins Asthma/COPD- Dr. Correa Pulmonary embolus in 2015--on Coumadin-- sees Dr. Moore Lung mass--surgery in 2008 a s below, with XRT; biopsied in approx 2015 and benign--followed by Dr. Tino Dimas [place],CVA,renal disease GERD--upper endoscopy August of 2017 with [...] History Surgery Date(Month/Year) Mass removed--Dr. Fields at [facility]-- Be nign , but had XRT 2008 Right inguinal hernia 1990 Ear tubes/Adenoids
--- OUTSIDE RECORDS SUMMARY | 2024-07-02 18:15 | XMS_ITS | Encounter Summary ---
Author Organization [facility] Address [address] [place] [address] Care Team Providers Care Associate Of Science In Nursing Name Role Phone Unavailable Primary Care Provider Unavailabl e Encounter Details Date Type Department Care Team (Late st Contact Info) Description 12/23/2021 Scanned Document [address] [address] [place] [id number] Gastroenterology, Scan Social History Tobacco Use Types [...]
--- OUTSIDE RECORDS SUMMARY | 2024-07-02 18:15 | XMS_ITS | Clinical Summary ---
Author Organization [facility] Address [address] [place] [address] Care Team Providers Care Glass Tube Bender Name Role Phone Bon rAvizu MD Primary Care Provider +1- [phone] Allergies No known active allergies Medications Ventolin [...] Only [facility] [address] [place] [address] Tashi Bonner MD [address] [address] Stage 3a chronic kidney disease (HCC); Type 2 diabetes mellitus with diabetic chronic kidney disease (HCC) 08/04/2024 1:15 PM EDT Office Visit [facility] [address] [place] [address] Tashi Bonner MD [address] [address] Health Maintenance Due Date Last [...] Exam 09/25/2022 Influenza Vaccine (#1) [address] [place] [place] [address] [place] [address] Care Teams Glass Tube Bender Relationship Specialty Start Date End Date Bon Arvizu MD [address] [place] [address] PCP - General Internal Medicine 06/04/22
--- OUTSIDE RECORDS SUMMARY | 2024-07-02 18:15 | XMS_ITS ---
Author Organization [facility] Address [address] [place] [address] Care Team Providers Care Retail Sales Manager Name Role Phone Fox Ku MD Primary Care Provider Tasih Bruno Unavailable [phone] Alisha Moore Unavailable Unavailable REASON FOR VISIT screening,hx polyps PROBLEMS Problem Type ICD Code Onset Dates Problem Status W/U Status Risk SNOMED Code Notes Problem Diverticulosis of large intestine without perforation or abscess without bleeding (K57.30) Active confirmed Diverticul ar disease of colon (296674754) Encounters Encounter Location Date Provider Diagnosis [facility] Outpatient [address] [place] [id number] 07/13/2023 Tashi Currie Encounter for scre ening [...]
--- OUTSIDE RECORDS SUMMARY | 2024-07-02 18:15 | XMS_ITS | Clinical Summary ---
Author Organization [facility] Address [address] [place] [address] Care Team Providers Care Park Maintenance Technician Name Role Phone Unavailable Primary Care Provider [...]
--- OUTSIDE RECORDS SUMMARY | 2024-07-02 18:15 | XMS_ITS ---
Author Organization [facility] Address [address] [place] [address] Care Team Providers Care Cat Cracker Operator Name Role Phone Fox Ku MD Primary Care Provider Tashi Bruno [phone] Alisha Moore Unavailable Unavailable REASON FOR VISIT [...] Active Encounters Encounter Location Date Provider Diagnosis [facility] [address] [place] [phone] 04/17/2023 Tashi Currie PLAN OF TREATMENT Medication [...]
[2024-07-02 19:22] VITALS: BP 120/53; PULSE 69; RESP 16; TEMP 37.2; O2SAT 98
== END 2024-07-02 19:22 | disposition home or self-care (01) ==
PROVIDERS: Emergency Provider Emergency Medicine
DX: T14.8XXA Other injury of unspecified body region, initial encounter (principal); W00.0XXA Fall on same level due to ice and snow, initial encounter; R51.9 Headache, unspecified; M54.2 Cervicalgia; M25.512 Pain in left shoulder; Y93.9 Activity, unspecified; Y92.9 Unspecified place or not applicable; Y99.9 Unspecified external cause status
CPT/HCPCS: 70450; 70486; 72125; 73030; 99282; 99284

== ENCOUNTER → 2024-07-02 17:09 | Outpatient (BNV) | payer OTHER, SELFPAY | PROVIDERS: Emergency Provider Emergency Medicine; Visit Provider Radiology Diagnostic Radiology | DX: M54.2 Cervicalgia (principal); R51.9 Headache, unspecified; W19.XXXA Unspecified fall, initial encounter; M25.512 Pain in left shoulder | CPT/HCPCS: 70450; 70486; 72125; 73030 ==

== ENCOUNTER 2024-07-11 09:40 | Outpatient (REF) | payer OTHER, SELFPAY ==
[2024-07-11 10:26] LABS: MANUAL DIFF FLAG NO
[2024-07-11 10:41] LABS: Basophils Percent Auto 0.7 % (0-2); Eosinophils Absolute Auto 0.2 X10*3/uL (0.0-0.4); Eosinophils Percent Auto 5.3 % (0-4); Hematocrit 39.7 % (42.0-52.0); Hemoglobin 12.8 g/dl (14.0-18.0); Imm Gran Abs Auto 0.01 X10*3/uL (0.00-0.03); Imm Gran Pct Auto 0.2 % (0.0-0.4); Lymphocytes Absolute Auto 1.2 X10*3/uL (1.2-4.9); Lymphocytes Percent Auto 27.4 % (20-40); Mean Corpuscular HGB Conc 32.2 g/dl (31.0-36.0); Mean Corpuscular Hemoglobin 29.4 pg (27.0-33.0); Mean Corpuscular Volume 91.3 fL (80.0-98.0); Mean Platelet Volume 11.2 fL (9.4-12.4); Monocytes Absolute Auto 0.3 X10*3/uL (0.1-1.2); Monocytes Percent Auto 7.1 % (2-11); Neutrophils Absolute Auto 2.6 x10*3/uL (2.0-8.3); Neutrophils Percent Auto 59.3 % (45-73); Platelet Count 193 X10*3/uL (160-400); Red Blood Count 4.35 X10*6/uL (4.60-5.80); Red Cell Distribution Width 15.6 % (11.0-16.0); White Blood Count 4.4 X10*3/uL (4.8-10.8)
--- OUTSIDE RECORDS SUMMARY | 2024-07-11 10:48 | XMS_ITS | Clinical Summary ---
Author Organization [facility] Address [address] [place] [address] Care Team Providers Care Cane Piler Name Role Phone Unavailable Primary Care Provider [...]
--- OUTSIDE RECORDS SUMMARY | 2024-07-11 10:48 | XMS_ITS | Clinical Summary ---
Author Organization [facility] Address [address] [place] [address] Care Team Providers Care Pipeline Executive Name Role Phone Bon Arvizu MD Primary Care Provider [phone]- [phone] Allergies No known active allergies Medications Ventolin [...] Only [facility] [address] [place] [address] Tashi Bonner MD [address] [address] Stage 3a chronic kidney disease (HCC); Type 2 diabetes mellitus with diabetic chronic kidney disease (HCC) 08/04/2024 1:15 PM EDT Office Visit [facility] [address] [place] [address] Tashi Bonner MD [address] [address] Health Maintenance Due Date Last [...] Exam 09/25/2022 Influenza Vaccine (#1) [address] [place] [address] [place] [address] Care Teams Pipeline Executive Relationship Specialty Start Date End Date Bon Arvizu MD [address] [place] [id number] PCP - General Internal Medicine 06/04/22
--- OUTSIDE RECORDS SUMMARY | 2024-07-11 10:48 | XMS_ITS | Patient Health Record ---
Author Organization [place] [facility] Address [address] [place] [address] Care Team Providers Care Recruiter Manager Name Role Phone Fox Ku MD Primary Care Provider Tashi Bruno Unavailable [phone] Alisha Moore Unavailable Unavailable ALLERGIES No Known Allergies RESULTS Component Value Reference Range Notes Pathology (Not yet reviewed by provider) Interpretation: Performing Lab:[facility], [address] [place] [phone] Notes/Report: Glucose, Whole Blood Reviewed date:07/13/2023 07:14:58 PM Interpretation: Performing Lab:[facility], [address] [place] [phone] Notes/Report: Glucose, Whole Blood 114 60-115 mg/dL METER # : [id number] REASON FOR REFERRAL No Information MEDICATIONS Medication [...] W/U Status Risk SNOMED Code Notes Problem Colon cancer screening (Z12.11) Active confirmed 890039426 Problem History of adenomatous polyp of colon (Z86.010) Active confirmed 266204458 Problem Diverticulosis of large intestine without perforation or abscess without bleeding (K57.30) Active confirmed Diverticul ar disease of colon (991406851) Problem Gastroesophageal reflux disease without esophagitis (K21.9) Active confirmed 753259116 Problem Preprocedural examination (Z01.818) Active confirmed 177468704792206 Problem Iron deficiency anemia, unspecified iron deficiency anemia type (D50.9) Active confirmed 73709635 Encounters Encounter Location Date Provider Diagnosis [facility] Outpatient [address] [place] [id number] 07/13/2023 Tashi Currie Encounter for scre ening [...] Coverage End Date [facility] [employer] [facility] [address] [address] [place], [place] [id number] KIAN MAHMOOD Self - patient is the insured MEDICAID OF [employer] [address] [place] [address] [id number] KIAN MAHMOOD Self - patient is the insured MEDICAL (GENERAL) HISTORY Medical History History ICD Code IDDM Hypertension Heart murmur-Dr. Collins Asthma/COPD- Dr. Correa Pulmonary embolus in 2015--on Coumadin-- sees Dr. Moore Lung mass--surgery in 2008 a s below, with XRT; biopsied in approx 2015 and benign--followed by Dr. Tino Dimas [place]A,renal disease GERD--upper endoscopy August of 2017 with [...] History Surgery Date(Month/Year) Mass removed--Dr. Fields at [facility]-- Be nign , but had XRT 2008 Right inguinal hernia 1990 Ear tubes/Adenoids
--- OUTSIDE RECORDS SUMMARY | 2024-07-11 10:48 | XMS_ITS ---
Author Organization [facility] Address [address] [place] [id number] Care Team Providers Care Bun Panner Name Role Phone Fox Ku MD Primary Care Provider Tashi Bruno Unavailable [phone] Alisha Moore Unavailable Unavailable ALLERGIES No Known [...] adenomatous polyp of colon (Z86.010) Active confirmed 199261970 Problem Colon cancer screening (Z12.11) Active confirmed 354478641 Problem Preprocedural examination (Z01.818) Active confirmed [id number] Problem Gastroesophageal reflux disease without esophagitis (K21.9) Active confirmed [id number] VITAL SIGNS Temperature 97.7 degrees Fahrenheit 04/17/20 23 Blood pressure systolic 00 mm Hg 04/17/20 23 Blood pressure diastolic 00 mm Hg 023 Height 67.75 in 04/17/2023 Weight 262 lbs 04/17/2023 BMI 40.13 kg/m2 04/17/2023 Encounters Encounter Location Date Provider Diagnosis [facility] [address] [place] [address] 04/17/2023 Tashi Currie Preprocedural examin ation Z01.818 [...]
--- OUTSIDE RECORDS SUMMARY | 2024-07-11 10:48 | XMS_ITS ---
Author Organization [facility] Address [address] [place] [phone] Care Team Providers Care Candle Molder Machine Name Role Phone Fox Ku MD Primary Care Provider Tashi Bruno [phone] Alisha Moore Unavailable Unavailable REASON FOR VISIT [...] Active Encounters Encounter Location Date Provider Diagnosis [facility] [address] [place] [phone] 04/17/2023 Tashi Currie PLAN OF TREATMENT Medication [...]
--- OUTSIDE RECORDS SUMMARY | 2024-07-11 10:48 | XMS_ITS | Encounter Summary ---
Author Organization [facility] Address [address] [place] [address] Care Team Providers Care Truck Packer Name Role Phone Unavailable Primary Care Provider Unavailabl e Encounter Details Date Type Department Care Team (Late st Contact Info) Description 12/23/2021 Scanned Document CTGI [facility] [address] [place] [id number] Gastroenterology, Scan Social History Tobacco Use Types [...]
[2024-07-11 10:49] LABS: Estimated Average Glucose 120 mg/dL; Hemoglobin A1C 133.1139 umol/L; Hemoglobin A1c % 5.8 % (<6.0); Total Hemoglobin (HGBA1C) 3359.6307 umol/L
--- OUTSIDE RECORDS SUMMARY | 2024-07-11 10:49 | XMS_ITS ---
Author Organization [facility] Address [address] [place] [address] Care Team Providers Care Compliance Lead Name Role Phone Fox Ku MD Primary Care Provider Tashi Bruno Unavailable [phone] Alisha Moore Unavailable Unavailable REASON FOR VISIT screening,hx polyps PROBLEMS Problem Type ICD Code Onset Dates Problem Status W/U Status Risk SNOMED Code Notes Problem Diverticulosis of large intestine without perforation or abscess without bleeding (K57.30) Active confirmed Diverticul ar disease of colon (473167676) Encounters Encounter Location Date Provider Diagnosis [facility] Outpatient [address] [place] [phone] 07/13/2023 Tashi Currie Encounter for scre ening [...]
[2024-07-11 11:07] LABS: Appearance Urine Clear; Color Urine Yellow; Glucose Urine UA Negative (Negative); Leukocyte Esterase Urine Negative (Negative); Nitrite Urine Negative (Negative); PH 8.5 (5.0-9.0); Urine Blood Negative (Negative); Urine Ketones Negative (Negative); Urine Protein Negative (Neg-Trace)
[2024-07-11 11:18] LABS: Anion Gap 9 (12-20); Blood Urea Nitrogen 8 mg/dL (9-16); Calcium 9.3 mg/dL (8.4-10.2); Carbon Dioxide 32 mmol/L (22-29); Chloride 106 mmol/L (96-108); Estimated Glomerular Filt Rate 56; Glucose Random 81 mg/dL (60-115); Iron 49 mcg/dL (45-160); Magnesium 1.9 mg/dL (1.6-2.6); Percent Iron Saturation 20 % (15-50); Phosphorus 3.5 mg/dL (2.7-4.5); Sodium 142 mmol/L (135-145); Total Iron Binding Capacity 242 mcg/dL (228-428); Unsaturated Iron Binding 193 ug/dL; Uric Acid 7.8 mg/dL (3.4-7.0)
[2024-07-11 11:19] LABS: Parathyroid Hormone Intact 85.1 pg/mL (8.7-77.1)
[2024-07-11 11:37] LABS: Ferritin 34 ng/mL (20-250); Vitamin D 25-OH Total 105.7 ng/mL (>30)
[2024-07-11 12:11] LABS: Creatinine Urine 71.38 mg/dL; Microalbumin Urine < 5.0 mg/L; Total Protein Urine Random < 7 mg/dL (<12)
[2024-07-18 14:36] LABS: eGFR (Cystatin C) 31 (L)
[2024-07-18 14:37] LABS: Cystatin C 2.02 (H)
== END 2024-07-11 09:41 | disposition home or self-care (01) ==
LOC: HO.LAB 09:40
PROVIDERS: PCP Internal Medicine; Visit Provider Internal Medicine
DX: N18.31 Chronic kidney disease, stage 3a (principal); E11.22 Type 2 diabetes mellitus with diabetic chronic kidney disease
CPT/HCPCS: 36415; 80048; 81003; 82043; 82306; 82570; 82610; 82728; 83036; 83540; 83735; 83970; 84100; 84156; 84550; 85025

== ENCOUNTER 2024-07-11 16:58 | Emergency (ER) | payer OTHER, SELFPAY ==
--- NOTE | ~2024-07-11 | XR_ITS ---
CLINICAL HISTORY: SOB 2 view chest x-ray Comparison: CR - XR CHEST 2V - 06/30/24 16:46 EST Findings: Faint retrocardiac airspace density within the left lower lobe. Mild interstitial prominence. Normal size heart. No acute fracture. IMPRESSION: Possible left lower lobe infiltrate. Follow-up recommended This document has been electronically signed by: Francisco Delcid MD on 07/11/2024 18:07:50
[2024-07-11 17:22] VITALS: BP 114/61; PULSE 64; RESP 18; TEMP 36.3; O2SAT 99; BMI 35.7
--- NOTE | 2024-07-11 17:25 | ED_ITS ---
HPI - General Adult General Chief complaint: Dyspnea Stated complaint: SOB Time Seen by Provider: 07/12/24 11:38 Related Data Home Medications ?Medication ?Instructions ?Recorded ?Confirmed atenolol 25 mg tablet 25 mg PO DAILY 06/17/24 06/28/24 bupropion HCl 150 mg 24 hr tablet, 150 mg PO DAILY 06/17/24 06/28/24 extended release ferrous sulfate 325 mg (65 mg 325 mg PO DAILY 06/17/24 06/28/24 iron) tablet haloperidol 10 mg tablet 10 mg PO BEDTIME 06/17/24 06/28/24 insulin glargine-yfgn 100 unit/mL 20 unit subcut QPM 06/17/24 06/28/24 (3 mL) subcutaneous pen melatonin 3 mg tablet 6 mg PO BEDTIME 06/17/24 06/28/24 omeprazole 40 mg capsule,delayed 40 mg PO DAILY 06/17/24 06/28/24 release tamsulosin 0.4 mg capsule 0.4 mg PO BEDTIME 06/17/24 06/28/24 thiamine HCl (vitamin B1) 100 mg 100 mg PO BID 06/17/24 06/28/24 tablet trazodone 50 mg tablet 50 mg PO BEDTIME PRN insomnia 06/17/24 06/28/24 Previous Rx's ?Medication ?Instructions ?Recorded cholecalciferol (vitamin D3) 50 50 mcg PO DAILY 90 days #90 caps 10/06/23 mcg (2,000 unit) capsule metformin 1,000 mg tablet 1,000 mg PO BID 90 days #180 tabs 01/20/24 atorvastatin 40 mg tablet 40 mg PO DAILY 90 days #90 tabs 03/26/24 meclizine 25 mg tablet 25 mg PO TID PRN dizziness #20 tabs 05/02/24 docusate sodium 100 mg capsule 100 mg PO BEDTIME #30 caps 06/02/24 aripiprazole 5 mg tablet (Abilify) 5 mg PO DAILY 30 days #30 tabs 06/16/24 benztropine 0.5 mg tablet 0.5 mg PO BID 30 days #60 tabs 06/16/24 hydroxyzine HCl 25 mg tablet 25 mg PO BID@0900,1700 30 days #60 06/16/24 tabs prednisone 20 mg tablet 40 mg (2 x 20 mg) PO DAILY #6 tabs 06/20/24 aripiprazole 5 mg tablet (Abilify) 5 mg PO DAILY #7 tabs 06/28/24 atenolol 25 mg tablet 25 mg PO DAILY #7 tabs 06/28/24 atorvastatin 40 mg tablet (Lipitor) 40 mg PO DAILY #7 tabs 06/28/24 bupropion HCl 150 mg 24 hr tablet, 150 mg PO QAM #7 tabs 06/28/24 extended release (Wellbutrin XL) haloperidol 10 mg tablet 10 mg PO BEDTIME #7 tabs 06/28/24 hydroxyzine HCl 25 mg tablet 25 mg PO BID #14 tabs 06/28/24 insulin glargine 100 unit/mL (3 20 unit (0.2 mL) subcut QPM #3 mL 06/28/24 mL) subcutaneous pen (Lantus Solostar U-100 Insulin) tamsulosin 0.4 mg capsule (Flomax) 0.4 mg PO BEDTIME #7 caps 06/28/24 thiamine HCl (vitamin B1) 100 mg 100 mg PO BID #14 tabs 06/28/24 tablet trazodone 50 mg tablet 50 mg PO BEDTIME PRN insomnia #7 06/28/24 tabs meclizine 25 mg tablet 25 mg PO TID PRN dizziness #20 tabs 07/01/24 doxycycline monohydrate 100 mg 100 mg PO BID #14 caps 07/12/24 capsule prednisone 20 mg tablet 40 mg (2 x 20 mg) PO DAILY #10 tabs 07/12/24 albuterol sulfate 90 mcg/actuation 2 puff inhalation Q4-6H PRN 07/14/24 aerosol inhaler (Ventolin HFA) shortness of breath or wheezing 30 days #18 grams Allergies Allergy/AdvReac Type Severity Reaction Status Date / Time pollen extracts [POLLEN] Allergy Mild RUNNY NOSE Verified 07/11/24 17:26 cat dander [CATS] Allergy Unknown UNKNOWN Verified 07/11/24 17:26 dog dander [DOGS] Allergy Unknown UNKNOWN Verified 07/11/24 17:26 mold [MOLD] Allergy Unknown UNKNOWN Verified 07/11/24 17:26 [facility] Past Medical History Medical History Psychosis Chest pain Suicidal ideation Recurrent major depression Allergic rhinitis Insomnia Palpitations Vitamin D deficiency Chronic kidney disease, stage III (moderate) GERD without esophagitis Restrictive lung disease Obesity (BMI 30-39.9) Benign essential hypertension Pure hypercholesterolemia Diabetes mellitus Pulmonary emboli Chondrosarcoma Hyperlipidemia Chronic restrictive lung disease COPD (chronic obstructive pulmonary disease) Asthma Surgical History History of esophagogastroduodenoscopy (EGD) H/O colonoscopy History of inguinal hernia repair Hx of exploratory thoracotomy H/O tooth extraction Family History Family History Father Hypertension Kidney failure, acute Mother Lung cancer Family/Other Diabetes Social History Social History Household Members: None Housing: Apartment Do you presently have visiting nurse or other home services: No Alcohol intake: never Patient Tobacco Use Status: Never used Tobacco e-Cigarette/Vaping Use: Never Used Second Hand Smoke Exposure: Yes service: No Current occupational status: unemployed Sexual orientation: Straight/Heterosexual Cognitive needs: No Hearing needs: No Vision needs: Yes (Glasses) Physical Exam ED Vital Signs: Vital Signs - 24 hr 07/12/24 10:26 07/12/24 13:03 07/12/24 13:03 Temperature 98.8 F 98.8 F Pulse Rate 56 60 60 Respiratory Rate 20 18 18 Blood Pressure 113/56 L 144/67 H 144/67 H Pulse Oximetry 95 100 100 Oxygen Delivery Method Room Air Room Air Room Air BMI result Body Mass Index 35.7 Course Course Course Narrative: RME performed by Zenaida June PA-C. Patient is a 53 year old assigned male at presenting to the emergency department with SOB. Detailed physical exam and review of systems are deferred to the intake clinician. EKG, labs, imaging, and swabs ordered. Patient placed back in the waiting room pending room availability and results. 07/12/2024 1133 - Pt re-evaluated. +Pne in RLL. Pt reporting some dizziness and lightheadedness. Will repeat troponin. BP slightly hypotensive, may need orthos, IVF. Zenaida June PA-C ----> Patient seen and dispositioned by Dr. Valentine. Please see Dr. Valentine's encounter dated 07/12/2024. Medications Administered Discontinued Medications Generic Name Dose Route Start Last Admin Trade Name Freq PRN Reason Stop Dose Admin Doxycycline Monohydrate 100 mg 07/12/24 11:44 07/12/24 12:13 Doxycycline Monohydrate 100 Mg Capsule PO 07/12/24 11:45 100 mg ONCE ONE Administration Prednisone 60 mg 07/12/24 11:44 07/12/24 12:13 Prednisone 20 Mg Tablet PO 07/12/24 11:45 60 mg ONCE ONE Administration Medical Decision Making Lab Data 07/11/24 17:53 07/11/24 17:53 Labs: Lab Results 07/11/24 07/12/24 Range/Units 17:53 12:01 WBC 6.1 (4.8-10.8) X10*3/uL RBC 4.16 L (4.60-5.80) X10*6/uL Hgb 12.2 L (14.0-18.0) g/dl Hct 37.8 L (42.0-52.0) % MCV 90.9 (80.0-98.0) fL MCH 29.3 (27.0-33.0) pg MCHC 32.3 (31.0-36.0) g/dl RDW 15.8 (11.0-16.0) % Plt Count 210 (160-400) X10*3/uL MPV 10.8 (9.4-12.4) fL Immature Gran % (Auto) 0.3 (0.0-0.4) % Neut % (Auto) 63.3 (45-73) % Lymph % (Auto) 26.5 (20-40) % Obion % (Auto) 5.6 (2-11) % Eos % (Auto) 3.8 (0-4) % Baso % (Auto) 0.5 (0-2) % Lymph # (Auto) 1.6 (1.2-4.9) X10*3/uL Obion # (Auto) 0.3 (0.1-1.2) X10*3/uL Eos # (Auto) 0.2 (0.0-0.4) X10*3/uL Baso # (Auto) 0.0 (0.0-0.2) X10*3/uL Abs Immat Gran (auto) 0.02 (0.00-0.03) X10*3/uL Absolute Neuts (auto) 3.9 (2.0-8.3) x10*3/uL Absolute Nucleated RBC 0.000 (0.0-0.012) X10*3/uL Nucleated RBC % (auto) 0.0 (0.0-0.2) /100WBC Sodium 143 (135-145) mmol/L Potassium 4.8 (3.3-5.1) mmol/L Chloride 107 (96-108) mmol/L Carbon Dioxide 26 (22-29) mmol/L Anion Gap 15 (12-20) BUN 11 (9-16) mg/dL Creatinine 1.41 H (0.5-1.4) mg/dL Estim Creat Clear Calc 71.7 Estimated GFR 53 Random Glucose 101 (60-115) mg/dL Calcium 8.7 D (8.4-10.2) mg/dL Magnesium 1.8 (1.6-2.6) mg/dL Total Bilirubin 0.4 (0.0-1.0) mg/dL AST 19 (5-37) U/L ALT 17 (0-40) U/L Alkaline Phosphatase 71 (39-117) U/L Troponin I High Sens 3.0 3.4 (<3.5-35.0) ng/L Total Protein 6.2 L (6.5-8.0) g/dL Albumin 3.4 L (3.5-5.0) g/dL Influenza Type A (PCR) NEGATIVE (Negative) Influenza Type B (PCR) NEGATIVE (Negative) RSV RNA Qual (PCR) NEGATIVE (Negative) SARS-CoV-2 RNA (RT-PCR) NEGATIVE (Negative) Discharge Plan Discharge Clinical Impression: Pneumonia Patient Disposition: Home, Self-Care Instructions: Pneumonia (ED) Prescriptions: New doxycycline monohydrate 100 mg capsule 100 mg PO BID Qty: 14 0RF prednisone 20 mg tablet 40 mg PO DAILY Qty: 10 0RF No Action cholecalciferol (vitamin D3) 50 mcg (2,000 unit) capsule 50 mcg PO DAILY 90 Days Qty: 90 3RF metformin 1,000 mg tablet 1,000 mg PO BID 90 Days Qty: 180 1RF atorvastatin 40 mg tablet 40 mg PO DAILY 90 Days Qty: 90 1RF albuterol sulfate [Ventolin HFA] 90 mcg/actuation HFA aerosol inhaler 2 puff inhalation Q4-6H PRN (Reason: shortness of breath or wheezing) 30 Days Qty: 18 1RF meclizine 25 mg tablet 25 mg PO TID PRN (Reason: dizziness) Qty: 20 0RF docusate sodium 100 mg Capsule 100 mg PO BEDTIME Qty: 30 0RF aripiprazole [Abilify] 5 mg Tablet 5 mg PO DAILY 30 Days Qty: 30 0RF benztropine 0.5 mg Tablet 0.5 mg PO BID 30 Days Qty: 60 0RF hydroxyzine HCl 25 mg Tablet 25 mg PO BID@0900,1700 30 Days Qty: 60 0RF thiamine HCl (vitamin B1) 100 mg tablet 100 mg PO BID melatonin 3 mg tablet 6 mg PO BEDTIME trazodone 50 mg tablet 50 mg PO BEDTIME PRN (Reason: insomnia) atenolol 25 mg tablet 25 mg PO DAILY tamsulosin 0.4 mg capsule 0.4 mg PO BEDTIME ferrous sulfate 325 mg (65 mg iron) tablet 325 mg PO DAILY omeprazole 40 mg capsule,delayed release(DR/EC) 40 mg PO DAILY haloperidol [Haldol] 10 mg Tablet 10 mg PO BEDTIME insulin glargine-yfgn 100 unit/mL (3 mL) insulin pen 20 unit subcut QPM bupropion HCl 150 mg tablet extended release 24 hr 150 mg PO DAILY prednisone 20 mg tablet 40 mg PO DAILY Qty: 6 0RF aripiprazole [Abilify] 5 mg tablet 5 mg PO DAILY Qty: 7 0RF atenolol 25 mg tablet 25 mg PO DAILY Qty: 7 0RF trazodone 50 mg tablet 50 mg PO BEDTIME PRN (Reason: insomnia) Qty: 7 0RF tamsulosin [Flomax] 0.4 mg capsule 0.4 mg PO BEDTIME Qty: 7 0RF thiamine HCl (vitamin B1) 100 mg tablet 100 mg PO BID Qty: 14 0RF atorvastatin [Lipitor] 40 mg tablet 40 mg PO DAILY Qty: 7 0RF haloperidol 10 mg tablet 10 mg PO BEDTIME Qty: 7 0RF hydroxyzine HCl 25 mg tablet 25 mg PO BID Qty: 14 0RF bupropion HCl [Wellbutrin XL] 150 mg tablet extended release 24 hr 150 mg PO QAM Qty: 7 0RF insulin glargine [Lantus Solostar U-100 Insulin] 100 unit/mL (3 mL) insulin pen 20 unit subcut QPM Qty: 3 0RF meclizine 25 mg tablet 25 mg PO TID PRN (Reason: dizziness) Qty: 20 0RF Interventions: ED Discharge Assessment Last Done: 07/12/24 13:03 Discharge Date/Time: 07/12/24 13:04 Print Language: Beninese
--- NOTE | 2024-07-11 17:27 | ECG_ITS ---
Test Reason : dyspnea Blood Pressure : */* mmHG Vent. Rate : 59 BPM Atrial Rate : 59 BPM P-R Int : 134 ms QRS Dur : 92 ms QT Int : 414 ms P-R-T Axes : 34 -1 0 degrees QTcB Int : 409 ms Sinus bradycardia Minimal voltage criteria for LVH, may be normal variant ( R in aVL ) Borderline ECG When compared with ECG of 30-Jun-2024 15:39, No significant change was found Referred By: Zenaida June Electronically Signed By: HILTON DONATO MD
[2024-07-11 17:58] LABS: MANUAL DIFF FLAG NO
[2024-07-11 18:04] LABS: Basophils Percent Auto 0.5 % (0-2); Eosinophils Absolute Auto 0.2 X10*3/uL (0.0-0.4); Eosinophils Percent Auto 3.8 % (0-4); Hematocrit 37.8 % (42.0-52.0); Hemoglobin 12.2 g/dl (14.0-18.0); Imm Gran Abs Auto 0.02 X10*3/uL (0.00-0.03); Imm Gran Pct Auto 0.3 % (0.0-0.4); Lymphocytes Absolute Auto 1.6 X10*3/uL (1.2-4.9); Lymphocytes Percent Auto 26.5 % (20-40); Mean Corpuscular HGB Conc 32.3 g/dl (31.0-36.0); Mean Corpuscular Hemoglobin 29.3 pg (27.0-33.0); Mean Corpuscular Volume 90.9 fL (80.0-98.0); Mean Platelet Volume 10.8 fL (9.4-12.4); Monocytes Absolute Auto 0.3 X10*3/uL (0.1-1.2); Monocytes Percent Auto 5.6 % (2-11); Neutrophils Absolute Auto 3.9 x10*3/uL (2.0-8.3); Neutrophils Percent Auto 63.3 % (45-73); Platelet Count 210 X10*3/uL (160-400); Red Blood Count 4.16 X10*6/uL (4.60-5.80); Red Cell Distribution Width 15.8 % (11.0-16.0); White Blood Count 6.1 X10*3/uL (4.8-10.8)
[2024-07-11 18:18] LABS: Alanine Aminotransferase 17 U/L (0-40); Albumin Level 3.4 g/dL (3.5-5.0); Alkaline Phosphatase 71 U/L (39-117); Anion Gap 15 (12-20); Aspartate Amino Transferase 19 U/L (5-37); Bilirubin Total 0.4 mg/dL (0.0-1.0); Blood Urea Nitrogen 11 mg/dL (9-16); Calcium 8.7 mg/dL (8.4-10.2); Carbon Dioxide 26 mmol/L (22-29); Chloride 107 mmol/L (96-108); Creatinine Clr Calc Pharmacy 71.7; Estimated Glomerular Filt Rate 53; Glucose Random 101 mg/dL (60-115); Magnesium 1.8 mg/dL (1.6-2.6); Potassium 4.8 mmol/L (3.3-5.1); Sodium 143 mmol/L (135-145); Total Protein 6.2 g/dL (6.5-8.0)
[2024-07-11 18:38] LABS: Influenza A PCR NEGATIVE (Negative); Influenza B PCR NEGATIVE (Negative); Resp Syncy Virus RNA Qual PCR NEGATIVE (Negative); SARS COV2 PCR INHOUSE NEGATIVE (Negative)
--- OUTSIDE RECORDS SUMMARY | 2024-07-11 19:12 | XMS_ITS | Clinical Summary ---
Author Organization [facility] Address [address] [place] [address] Care Team Providers Care Ecmo Specialist Name Role Phone Bon Arvizu MD Primary Care Provider [phone] Allergies No known active allergies Medications Ventolin [...] Only [facility] [address] [place] [address] Tashi Bonner MD [address] [address] Stage 3a chronic kidney disease (HCC); Type 2 diabetes mellitus with diabetic chronic kidney disease (HCC) 08/04/2024 1:15 PM EDT Office Visit [facility] [address] [place] [address] Tashi Bonner MD [address] [address] Health Maintenance Due Date Last [...] Exam 09/25/2022 Influenza Vaccine (#1) [address] [place] [address] [place] [address] Care Teams Ecmo Specialist Relationship Specialty Start Date End Date Bon Arvizu MD [address] [place] [id number] PCP - General Internal Medicine 06/04/22
--- OUTSIDE RECORDS SUMMARY | 2024-07-11 19:12 | XMS_ITS | Clinical Summary ---
Author Organization [facility] Address [address] [place] [address] Care Team Providers Care Trail Construction Worker Name Role Phone Unavailable Primary Care Provider [...]
--- OUTSIDE RECORDS SUMMARY | 2024-07-11 19:12 | XMS_ITS | Encounter Summary ---
Author Organization [facility] Address [address] [place] [address] Care Team Providers Care Breeding Technician Name Role Phone Unavailable Primary Care Provider Unavailabl e Encounter Details Date Type Department Care Team (Late st Contact Info) Description 12/23/2021 Scanned Document CTGI [facility] [address] [place] [phone] Gastroenterology, Scan Social History Tobacco Use Types [...]
[2024-07-12 00:02] VITALS: BP 110/38; PULSE 55; RESP 17; TEMP 37.1; O2SAT 98
[2024-07-12 05:29] VITALS: BP 117/47; PULSE 58; RESP 19; TEMP 36.3; O2SAT 98
[2024-07-12 09:21] VITALS: BP 103/41; PULSE 58; RESP 16; TEMP 36.6; O2SAT 95
--- NOTE | 2024-07-12 09:29 | MHC.EDTECH ---
Patients vitals signs taken and documented. media center assistant aware .,patient stated he is feeling lightheaded. Patient ambulated back to waiting room with stedy gait.
[2024-07-12 10:26] VITALS: BP 113/56; PULSE 56; RESP 20; O2SAT 95
--- NOTE | 2024-07-12 10:29 | MHC.EDTECH ---
repeat vitals documented and reported to dice manager
--- NOTE | 2024-07-12 11:45 | ED_ITS ---
HPI - SOB/Dyspnea General Chief Complaint: Dyspnea Stated Complaint: SOB Time Seen by Provider: 07/12/24 11:38 Source: patient Mode of arrival: ambulatory Limitations: no limitations History of Present Illness HPI Narrative: This is a 53 years old male with a history of asthma and diabetes presented to the emergency department with a chief complaint of shortness of breath congestion. Patient denies any fever chills vomiting MD elicited complaint: cough Pertinent past history: asthma Onset (ago): day(s) (2) Severity: mild Exacerbating factors: nothing Relieving factors: nothing Known history of: asthma and diabetes Associated symptoms: denies other symptoms Related Data Home Medications ?Medication ?Instructions ?Recorded ?Confirmed atenolol 25 mg tablet 25 mg PO DAILY 06/17/24 06/28/24 bupropion HCl 150 mg 24 hr tablet, 150 mg PO DAILY 06/17/24 06/28/24 extended release ferrous sulfate 325 mg (65 mg 325 mg PO DAILY 06/17/24 06/28/24 iron) tablet haloperidol 10 mg tablet 10 mg PO BEDTIME 06/17/24 06/28/24 insulin glargine-yfgn 100 unit/mL 20 unit subcut QPM 06/17/24 06/28/24 (3 mL) subcutaneous pen melatonin 3 mg tablet 6 mg PO BEDTIME 06/17/24 06/28/24 omeprazole 40 mg capsule,delayed 40 mg PO DAILY 06/17/24 06/28/24 release tamsulosin 0.4 mg capsule 0.4 mg PO BEDTIME 06/17/24 06/28/24 thiamine HCl (vitamin B1) 100 mg 100 mg PO BID 06/17/24 06/28/24 tablet trazodone 50 mg tablet 50 mg PO BEDTIME PRN insomnia 06/17/24 06/28/24 Previous Rx's ?Medication ?Instructions ?Recorded cholecalciferol (vitamin D3) 50 50 mcg PO DAILY 90 days #90 caps 10/06/23 mcg (2,000 unit) capsule metformin 1,000 mg tablet 1,000 mg PO BID 90 days #180 tabs 01/20/24 atorvastatin 40 mg tablet 40 mg PO DAILY 90 days #90 tabs 03/26/24 meclizine 25 mg tablet 25 mg PO TID PRN dizziness #20 tabs 05/02/24 docusate sodium 100 mg capsule 100 mg PO BEDTIME #30 caps 06/02/24 aripiprazole 5 mg tablet (Abilify) 5 mg PO DAILY 30 days #30 tabs 06/16/24 benztropine 0.5 mg tablet 0.5 mg PO BID 30 days #60 tabs 06/16/24 hydroxyzine HCl 25 mg tablet 25 mg PO BID@0900,1700 30 days #60 06/16/24 tabs prednisone 20 mg tablet 40 mg (2 x 20 mg) PO DAILY #6 tabs 06/20/24 albuterol sulfate 90 mcg/actuation 2 puff inhalation Q4-6H PRN 06/23/24 aerosol inhaler shortness of breath or wheezing #6.7 grams aripiprazole 5 mg tablet (Abilify) 5 mg PO DAILY #7 tabs 06/28/24 atenolol 25 mg tablet 25 mg PO DAILY #7 tabs 06/28/24 atorvastatin 40 mg tablet (Lipitor) 40 mg PO DAILY #7 tabs 06/28/24 bupropion HCl 150 mg 24 hr tablet, 150 mg PO QAM #7 tabs 06/28/24 extended release (Wellbutrin XL) haloperidol 10 mg tablet 10 mg PO BEDTIME #7 tabs 06/28/24 hydroxyzine HCl 25 mg tablet 25 mg PO BID #14 tabs 06/28/24 insulin glargine 100 unit/mL (3 20 unit (0.2 mL) subcut QPM #3 mL 06/28/24 mL) subcutaneous pen (Lantus Solostar U-100 Insulin) tamsulosin 0.4 mg capsule (Flomax) 0.4 mg PO BEDTIME #7 caps 06/28/24 thiamine HCl (vitamin B1) 100 mg 100 mg PO BID #14 tabs 06/28/24 tablet trazodone 50 mg tablet 50 mg PO BEDTIME PRN insomnia #7 06/28/24 tabs meclizine 25 mg tablet 25 mg PO TID PRN dizziness #20 tabs 07/01/24 doxycycline monohydrate 100 mg 100 mg PO BID #14 caps 07/12/24 capsule prednisone 20 mg tablet 40 mg (2 x 20 mg) PO DAILY #10 tabs 07/12/24 Allergies Allergy/AdvReac Type Severity Reaction Status Date / Time pollen extracts [POLLEN] Allergy Mild RUNNY NOSE Verified 07/11/24 17:26 cat dander [CATS] Allergy Unknown UNKNOWN Verified 07/11/24 17:26 dog dander [DOGS] Allergy Unknown UNKNOWN Verified 07/11/24 17:26 mold [MOLD] Allergy Unknown UNKNOWN Verified 07/11/24 17:26 Review of Systems 2 Constitutional: Constitutional: Reports no additional constitutional complaints Cardiovascular: Cardiovascular: Reports no additional cardiovascular complaints Gastrointestinal: Gastrointestinal: Reports no additional gastrointestinal complaints [facility] Past Medical History Attestation statement: The following information was validated with the patient. [facility] Narrative: Asthma/diabetes Medical History Psychosis Chest pain Suicidal ideation Recurrent major depression Allergic rhinitis Insomnia Palpitations Vitamin D deficiency Chronic kidney disease, stage III (moderate) GERD without esophagitis Restrictive lung disease Obesity (BMI 30-39.9) Benign essential hypertension Pure hypercholesterolemia Diabetes mellitus Pulmonary emboli Chondrosarcoma Hyperlipidemia Chronic restrictive lung disease COPD (chronic obstructive pulmonary disease) Asthma Surgical History History of esophagogastroduodenoscopy (EGD) H/O colonoscopy History of inguinal hernia repair Hx of exploratory thoracotomy H/O tooth extraction Family History Family History Father Hypertension Kidney failure, acute Mother Lung cancer Family/Other Diabetes Social History Social History Household Members: None Housing: Apartment Do you presently have visiting nurse or other home services: No Alcohol intake: never Patient Tobacco Use Status: Never used Tobacco e-Cigarette/Vaping Use: Never Used Second Hand Smoke Exposure: Yes service: No Current occupational status: unemployed Sexual orientation: Straight/Heterosexual Cognitive needs: No Hearing needs: No Vision needs: Yes (Glasses) Physical Exam 2 Vital Signs: Vital Signs: Last Vital Signs Temp 98.8 F 07/12/24 13:03 Pulse 60 07/12/24 13:03 Resp 18 07/12/24 13:03 BP 144/67 H 07/12/24 13:03 Pulse Ox 100 07/12/24 13:03 O2 Del Method Room Air 07/12/24 13:03 BMI result Body Mass Index 35.7 No acute distress afebrile breathing at 20 minutes O2 sat 95% Const: General: cooperative and comfortable Nutritional Appearance: well nourished Limitations: no limitations HEENT: Head: Yes normal to inspection General nose exam: Normal external nose present Face and sinus: Yes normal facial exam Mouth: Normal oral and palatal mucosa present Neck: Neck: Yes normal visual inspection Chest: Chest palpation & inspection: normal inspection of the chest Resp: Effort & Inspection: normal respiratory effort Auscultation: clear to auscultation bilaterally Cardio: Jugular venous distension: no JVD Rate: regular rate Rhythm: r egular rhythm GI: Inspection: Yes normal to inspection Palpation (GI): Soft to palpation, not firm and nontender Auscultation: normal bowel sounds Skin: General skin exam: no rashes or lesions noted Course Reevaluation(s) Reevaluation #1: Chest x-ray is showed a possible left lower lobe pneumonia however patient has no fever, sat is good, he is not tachypneic, therefore I think he can be treated as outpatient we will discharge him on p.o. doxycycline he is comfortable with the plan of care. Again no fever no hypoxia Time: 12:20 Medications Administered Discontinued Medications Generic Name Dose Route Start Last Admin Trade Name Freq PRN Reason Stop Dose Admin Doxycycline Monohydrate 100 mg 07/12/24 11:44 07/12/24 12:13 Doxycycline Monohydrate 100 Mg Capsule PO 07/12/24 11:45 100 mg ONCE ONE Administration Prednisone 60 mg 07/12/24 11:44 07/12/24 12:13 Prednisone 20 Mg Tablet PO 07/12/24 11:45 60 mg ONCE ONE Administration Medical Decision Making Medical Decision Making [facility] Narrative: Patient presented to the emergency department with a cough congestion, we will obtain imaging and blood work Differential Diagnosis Differential Diagnoses: The differential diagnosis associated with the presentation includes URI/pneumonia/viral syndrome Admission/Observation Consideration of admission/observation: Escalation of care including admission/observation considered Lab Data [facility] Lab Attestation statement: I reviewed the patient's lab results. 07/11/24 17:53 07/11/24 17:53 Labs: Lab Results 07/11/24 07/12/24 Range/Units 17:53 12:01 WBC 6.1 (4.8-10.8) X10*3/uL RBC 4.16 L (4.60-5.80) X10*6/uL Hgb 12.2 L (14.0-18.0) g/dl Hct 37.8 L (42.0-52.0) % MCV 90.9 (80.0-98.0) fL MCH 29.3 (27.0-33.0) pg MCHC 32.3 (31.0-36.0) g/dl RDW 15.8 (11.0-16.0) % Plt Count 210 (160-400) X10*3/uL MPV 10.8 (9.4-12.4) fL Immature Gran % (Auto) 0.3 (0.0-0.4) % Neut % (Auto) 63.3 (45-73) % Lymph % (Auto) 26.5 (20-40) % [place] % (Auto) 5.6 (2-11) % Eos % (Auto) 3.8 (0-4) % Baso % (Auto) 0.5 (0-2) % Lymph # (Auto) 1.6 (1.2-4.9) X10*3/uL [place] # (Auto) 0.3 (0.1-1.2) X10*3/uL Eos # (Auto) 0.2 (0.0-0.4) X10*3/uL Baso # (Auto) 0.0 (0.0-0.2) X10*3/uL Abs Immat Gran (auto) 0.02 (0.00-0.03) X10*3/uL Absolute Neuts (auto) 3.9 (2.0-8.3) x10*3/uL Absolute Nucleated RBC 0.000 (0.0-0.012) X10*3/uL Nucleated RBC % (auto) 0.0 (0.0-0.2) /100WBC Sodium 143 (135-145) mmol/L Potassium 4.8 (3.3-5.1) mmol/L Chloride 107 (96-108) mmol/L Carbon Dioxide 26 (22-29) mmol/L Anion Gap 15 (12-20) BUN 11 (9-16) mg/dL Creatinine 1.41 H (0.5-1.4) mg/dL Estim Creat Clear Calc 71.7 Estimated GFR 53 Random Glucose 101 (60-115) mg/dL Calcium 8.7 D (8.4-10.2) mg/dL Magnesium 1.8 (1.6-2.6) mg/dL Total Bilirubin 0.4 (0.0-1.0) mg/dL AST 19 (5-37) U/L ALT 17 (0-40) U/L Alkaline Phosphatase 71 (39-117) U/L Troponin I High Sens 3.0 3.4 (<3.5-35.0) ng/L Total Protein 6.2 L (6.5-8.0) g/dL Albumin 3.4 L (3.5-5.0) g/dL Influenza Type A (PCR) NEGATIVE (Negative) Influenza Type B (PCR) NEGATIVE (Negative) RSV RNA Qual (PCR) NEGATIVE (Negative) SARS-CoV-2 RNA (RT-PCR) NEGATIVE (Negative) Independent Interpretation I performed an independent interpretation of an: Plain X-Ray Radiology Impression Discussion of test interpretation with radiology: I have reviewed the radiologist's reading. Radiologist Impression: CLINICAL HISTORY: SOB 2 view chest x-ray Comparison: CR - XR CHEST 2V - 06/30/24 16:46 EST Findings: Faint retrocardiac airspace density within the left lower lobe. Mild interstitial prominence. Normal size heart. No acute fracture. IMPRESSION: Possible left lower lobe infiltrate. Follow-up recommended This document has been electronically signed by: Francisco Delcid MD on 07/11/2024 18:07:50 Dictated By: Francisco Delcid MD Signed By: <Electronically sign Discharge Plan Discharge Clinical Impression: Pneumonia Qualifiers: Pneumonia type: due to unspecified organism Laterality: left Lung location: l ower lobe of lung Qualified Code(s): J18.9 - Pneumonia, unspecified organism Patient Disposition: Home, Self-Care Instructions: Pneumonia (ED) Prescriptions: New doxycycline monohydrate 100 mg capsule 100 mg PO BID Qty: 14 0RF prednisone 20 mg tablet 40 mg PO DAILY Qty: 10 0RF No Action cholecalciferol (vitamin D3) 50 mcg (2,000 unit) capsule 50 mcg PO DAILY 90 Days Qty: 90 3RF metformin 1,000 mg tablet 1,000 mg PO BID 90 Days Qty: 180 1RF atorvastatin 40 mg tablet 40 mg PO DAILY 90 Days Qty: 90 1RF meclizine 25 mg tablet 25 mg PO TID PRN (Reason: dizziness) Qty: 20 0RF docusate sodium 100 mg Capsule 100 mg PO BEDTIME Qty: 30 0RF aripiprazole [Abilify] 5 mg Tablet 5 mg PO DAILY 30 Days Qty: 30 0RF benztropine 0.5 mg Tablet 0.5 mg PO BID 30 Days Qty: 60 0RF hydroxyzine HCl 25 mg Tablet 25 mg PO BID@0900,1700 30 Days Qty: 60 0RF thiamine HCl (vitamin B1) 100 mg tablet 100 mg PO BID melatonin 3 mg tablet 6 mg PO BEDTIME trazodone 50 mg tablet 50 mg PO BEDTIME PRN (Reason: insomnia) atenolol 25 mg tablet 25 mg PO DAILY tamsulosin 0.4 mg capsule 0.4 mg PO BEDTIME ferrous sulfate 325 mg (65 mg iron) tablet 325 mg PO DAILY omeprazole 40 mg capsule,delayed release(DR/EC) 40 mg PO DAILY haloperidol [Haldol] 10 mg Tablet 10 mg PO BEDTIME insulin glargine-yfgn 100 unit/mL (3 mL) insulin pen 20 unit subcut QPM bupropion HCl 150 mg tablet extended release 24 hr 150 mg PO DAILY prednisone 20 mg tablet 40 mg PO DAILY Qty: 6 0RF albuterol sulfate 90 mcg/actuation HFA aerosol inhaler 2 puff inhalation Q4-6H PRN (Reason: shortness of breath or wheezing) Qty: 6.7 0RF aripiprazole [Abilify] 5 mg tablet 5 mg PO DAILY Qty: 7 0RF atenolol 25 mg tablet 25 mg PO DAILY Qty: 7 0RF trazodone 50 mg tablet 50 mg PO BEDTIME PRN (Reason: insomnia) Qty: 7 0RF tamsulosin [Flomax] 0.4 mg capsule 0.4 mg PO BEDTIME Qty: 7 0RF thiamine HCl (vitamin B1) 100 mg tablet 100 mg PO BID Qty: 14 0RF atorvastatin [Lipitor] 40 mg tablet 40 mg PO DAILY Qty: 7 0RF haloperidol 10 mg tablet 10 mg PO BEDTIME Qty: 7 0RF hydroxyzine HCl 25 mg tablet 25 mg PO BID Qty: 14 0RF bupropion HCl [Wellbutrin XL] 150 mg tablet extended release 24 hr 150 mg PO QAM Qty: 7 0RF insulin glargine [Lantus Solostar U-100 Insulin] 100 unit/mL (3 mL) insulin pen 20 unit subcut QPM Qty: 3 0RF meclizine 25 mg tablet 25 mg PO TID PRN (Reason: dizziness) Qty: 20 0RF Interventions: ED Discharge Assessment Last Done: 07/12/24 13:03 Discharge Date/Time: 07/12/24 13:04 Print Language: Polish
[2024-07-12] MEDS: Doxycycline Monohydrate 100 MG CAPSULE PO (12:13)
[2024-07-12] MEDS: predniSONE 20 MG TABLET 60 MG PO (12:13)
[2024-07-12 12:38] LABS: Troponin-I High Sensitivity 3.4 ng/L (<3.5-35.0)
[2024-07-12 13:03] VITALS: BP 144/67; PULSE 60; RESP 18; TEMP 37.1; O2SAT 100
== END 2024-07-12 13:04 | disposition home or self-care (01) ==
PROVIDERS: Physician Assistant Medical; Emergency Provider Emergency Medicine; PCP Internal Medicine
DX: J18.9 Pneumonia, unspecified organism (principal); J45.909 Unspecified asthma, uncomplicated; E11.9 Type 2 diabetes mellitus without complications; I10 Essential (primary) hypertension
CPT/HCPCS: 0241U; 36415; 71046; 80053; 83735; 84484; 85025; 93005; 99283; 99284

== ENCOUNTER → 2024-07-11 17:27 | Outpatient (BNV) | payer OTHER, SELFPAY | PROVIDERS: PCP Internal Medicine; Visit Provider Radiology Vascular & Interventional Radiology | DX: R06.02 Shortness of breath (principal) | CPT/HCPCS: 71046 ==

== ENCOUNTER → 2024-07-11 17:27 | Outpatient (BNV) | payer OTHER, SELFPAY | PROVIDERS: PCP Internal Medicine; Visit Provider Internal Medicine Cardiovascular Disease | DX: R00.1 Bradycardia, unspecified (principal) | CPT/HCPCS: 93010 ==

== ENCOUNTER 2024-07-16 15:02 | Emergency (ER) | payer OTHER, SELFPAY ==
--- NOTE | ~2024-07-16 | XR_ITS ---
CLINICAL HISTORY: SOB 2 view chest x-ray. Comparison: CR - XR CHEST 2V - 07/11/24 17:42 EST Findings: Eventration left hemidiaphragm. Persistent retrocardiac probable atelectasis versus infiltrate. Right lung is clear. No pneumothorax or pleural effusion. Heart size normal. No passive venous congestion. Mild mediastinal shift to the left. No acute fracture. Impression: 1. Eventration right hemidiaphragm with probable retrocardiac atelectasis versus infiltrate unchanged. There is volume loss on the left with mild mediastinal shift to the left This document has been electronically signed by: Alonzo Lino MD on 07/16/2024 15:52:52
[2024-07-16 15:08] VITALS: BP 133/60; PULSE 71; RESP 20; TEMP 36.5; O2SAT 100; BMI 35.4
--- NOTE | 2024-07-16 15:10 | ED.GENADULT ---
HPI - General Adult General Chief complaint: General Medical Stated complaint: dizziness/sob/pain when urinating Time Seen by Provider: 07/16/24 20:13 History of Present Illness HPI narrative: 53-year-old male with a history of depression, prior psychosis, suicidal ideation, anxiety, asthma, COPD, hyperlipidemia, diabetes, hypertension, obesity, chronic kidney disease, who is well known to our emergency department given he is a high utilizer of resources, today being his 12th visit since June 09, presents with numerous complaints. Patient states he has had ongoing dizziness since he was seen during 1 of his visits in June, he has yet to follow up with his primary care provider, at that time he was diagnosed with vertigo. Patient also complains of continued cough and shortness of breath, he states he was treated for pneumonia 4 days ago, but that his symptoms are not improving. Patient also complains of difficulty urinating, with the associated dysuria. Denies hematuria, nausea, vomiting, flank pain. No fever. Related Data Home Medications ?Medication ?Instructions ?Recorded ?Confirmed atenolol 25 mg tablet 25 mg PO DAILY 06/17/24 06/28/24 bupropion HCl 150 mg 24 hr tablet, 150 mg PO DAILY 06/17/24 06/28/24 extended release ferrous sulfate 325 mg (65 mg 325 mg PO DAILY 06/17/24 06/28/24 iron) tablet haloperidol 10 mg tablet 10 mg PO BEDTIME 06/17/24 06/28/24 insulin glargine-yfgn 100 unit/mL 20 unit subcut QPM 06/17/24 06/28/24 (3 mL) subcutaneous pen melatonin 3 mg tablet 6 mg PO BEDTIME 06/17/24 06/28/24 omeprazole 40 mg capsule,delayed 40 mg PO DAILY 06/17/24 06/28/24 release tamsulosin 0.4 mg capsule 0.4 mg PO BEDTIME 06/17/24 06/28/24 thiamine HCl (vitamin B1) 100 mg 100 mg PO BID 06/17/24 06/28/24 tablet trazodone 50 mg tablet 50 mg PO BEDTIME PRN insomnia 06/17/24 06/28/24 Previous Rx's ?Medication ?Instructions ?Recorded cholecalciferol (vitamin D3) 50 50 mcg PO DAILY 90 days #90 caps 10/06/23 mcg (2,000 unit) capsule metformin 1,000 mg tablet 1,000 mg PO BID 90 days #180 tabs 01/20/24 atorvastatin 40 mg tablet 40 mg PO DAILY 90 days #90 tabs 03/26/24 meclizine 25 mg tablet 25 mg PO TID PRN dizziness #20 tabs 05/02/24 docusate sodium 100 mg capsule 100 mg PO BEDTIME #30 caps 06/02/24 aripiprazole 5 mg tablet (Abilify) 5 mg PO DAILY 30 days #30 tabs 06/16/24 benztropine 0.5 mg tablet 0.5 mg PO BID 30 days #60 tabs 06/16/24 hydroxyzine HCl 25 mg tablet 25 mg PO BID@0900,1700 30 days #60 06/16/24 tabs prednisone 20 mg tablet 40 mg (2 x 20 mg) PO DAILY #6 tabs 06/20/24 aripiprazole 5 mg tablet (Abilify) 5 mg PO DAILY #7 tabs 06/28/24 atenolol 25 mg tablet 25 mg PO DAILY #7 tabs 06/28/24 atorvastatin 40 mg tablet (Lipitor) 40 mg PO DAILY #7 tabs 06/28/24 bupropion HCl 150 mg 24 hr tablet, 150 mg PO QAM #7 tabs 06/28/24 extended release (Wellbutrin XL) haloperidol 10 mg tablet 10 mg PO BEDTIME #7 tabs 06/28/24 hydroxyzine HCl 25 mg tablet 25 mg PO BID #14 tabs 06/28/24 insulin glargine 100 unit/mL (3 20 unit (0.2 mL) subcut QPM #3 mL 06/28/24 mL) subcutaneous pen (Lantus Solostar U-100 Insulin) tamsulosin 0.4 mg capsule (Flomax) 0.4 mg PO BEDTIME #7 caps 06/28/24 thiamine HCl (vitamin B1) 100 mg 100 mg PO BID #14 tabs 06/28/24 tablet trazodone 50 mg tablet 50 mg PO BEDTIME PRN insomnia #7 06/28/24 tabs meclizine 25 mg tablet 25 mg PO TID PRN dizziness #20 tabs 07/01/24 doxycycline monohydrate 100 mg 100 mg PO BID #14 caps 07/12/24 capsule prednisone 20 mg tablet 40 mg (2 x 20 mg) PO DAILY #10 tabs 07/12/24 albuterol sulfate 90 mcg/actuation 2 puff inhalation Q4-6H PRN 07/14/24 aerosol inhaler (Ventolin HFA) shortness of breath or wheezing 30 days #18 grams Allergies Allergy/AdvReac Type Severity Reaction Status Date / Time pollen extracts [POLLEN] Allergy Mild RUNNY NOSE Verified 07/16/24 15:12 cat dander [CATS] Allergy Unknown UNKNOWN Verified 07/16/24 15:12 dog dander [DOGS] Allergy Unknown UNKNOWN Verified 07/16/24 15:12 mold [MOLD] Allergy Unknown UNKNOWN Verified 07/16/24 15:12 Review of Systems Review of Systems: Yes all other systems are reviewed and are negative Constitutional: Constitutional: Denies fatigue, Denies fever(s) and Denies headache(s) ENT: Reports dizziness and Denies headache(s) Cardiovascular: Cardiovascular: Denies chest pain and Reports dyspnea Respiratory: Respiratory: Reports cough, Reports dyspnea and Reports wheezing Gastrointestinal: Gastrointestinal: Denies abdominal pain, Denies diarrhea, Denies nausea and Denies vomiting Genitourinary: Genitourinary: Denies hematuria, Reports dysuria and Denies flank pain Musculoskeletal: Musculoskeletal: Denies back pain Neurologic: Reports dizziness and Denies headache(s) Endocrine: Endocrine: Denies fatigue Allergic/Immunologic: Allergic/Immunologic: Reports wheezing PMFSH Past Medical History Attestation statement: The following information was validated with the patient. Medical History Psychosis Chest pain Suicidal ideation Recurrent major depression Allergic rhinitis Insomnia Palpitations Vitamin D deficiency Chronic kidney disease, stage III (moderate) GERD without esophagitis Restrictive lung disease Obesity (BMI 30-39.9) Benign essential hypertension Pure hypercholesterolemia Diabetes mellitus Pulmonary emboli Chondrosarcoma Hyperlipidemia Chronic restrictive lung disease COPD (chronic obstructive pulmonary disease) Asthma Surgical History History of esophagogastroduodenoscopy (EGD) H/O colonoscopy History of inguinal hernia repair Hx of exploratory thoracotomy H/O tooth extraction Family History Family History Father Hypertension Kidney failure, acute Mother Lung cancer Family/Other Diabetes Social History Social History Household Members: None Housing: Apartment Do you presently have visiting nurse or other home services: No Alcohol intake: never Patient Tobacco Use Status: Never used Tobacco e-Cigarette/Vaping Use: Never Used Second Hand Smoke Exposure: Yes Use of substances other than those prescribed or required for medical reasons: No Advance Directives: No Advance Directives Information Provided: No service: No Current occupational status: unemployed Sexual orientation: Straight/Heterosexual Cognitive needs: No Hearing needs: No Vision needs: Yes (Glasses) Physical Exam ED Vital Signs: Vital Signs - 24 hr 07/16/24 15:08 07/16/24 19:46 07/16/24 22:24 Temperature 97.7 F 97.9 F 98.5 F Pulse Rate 71 60 57 Respiratory Rate 20 17 16 Blood Pressure 133/60 137/59 L 150/72 H Pulse Oximetry 100 98 96 Oxygen Delivery Method Room Air Room Air Room Air BMI result Body Mass Index 35.4 Const Other: Alert Orientation/consciousness: patient oriented x3 Eyes Other: No nystagmus Resp Other: Lungs clear to auscultation no wheezing, no rhonchi Effort & Inspection: normal respiratory effort Cardio Other: Normal peripheral perfusion Skin Other: Warm dry no rash Neuro Other: No ataxia General: patient oriented x3, gait normal, no focal motor deficits and CN's II-XI intact bilaterally Psych Other: Cooperative Course Course Course Narrative: This is a Rapid Medical Examination (RME) performed by Festus Hodges PA-C in triage. Full HPI, ROS, assessment and treatment plan per primary provider in the Main ED. 53 yo male hx BPPV, asthma/ copd, DM, recent diagnosis of PNA on doxy here for eval of SOB and chest pressure. using his inhaler at home more often, q4 hours. last used this at 1400 today. assoc dizziness (room spinning) which is constant. also reports dysuria since last night. Plan: labs, ekg, cxr, viral swabs, UA Medical Decision Making Medical Decision Making MDM Narrative: 53-year-old male with a history of depression, prior psychosis, suicidal ideation, anxiety, asthma, COPD, hyperlipidemia, diabetes, hypertension, obesity, chronic kidney disease, who is well known to our emergency department given he is a high utilizer of resources, today being his 12th visit since June 09, presents with numerous complaints. Patient states he has had ongoing dizziness since he was seen during 1 of his visits in June, he has yet to follow up with his primary care provider, at that time he was diagnosed with vertigo. Patient also complains of continued cough and shortness of breath, he states he was treated for pneumonia 4 days ago, but that his symptoms are not improving. Patient also complains of difficulty urinating, with the associated dysuria. Denies hematuria, nausea, vomiting, flank pain. No fever. Problem: Psychiatric illness, asthma, COPD, diabetes History: Per patient I have considered the following differential diagnoses: Refractory pneumonia, COPD/asthma exacerbation, viral syndrome, vertigo, CVA, UTI, renal colic, malingering, secondary gain Plan: In regard to the patient's shortness of breath, his symptoms are highly subjective, screening labs including viral panel and a chest x-ray were obtained from triage, the pneumonias resolving, he has an unremarkable exam no wheezing, he is afebrile he is not hypoxic. In regard to his dizziness complaint, thought about a CVA, however the patient was neurologically intact, without ataxia. He does not have vertiginous symptoms there is no nystagmus on exam, his dizziness is highly subjective. In regard to his complaint, his urine is not infected, he does not have associated flank pain or concurrent nausea vomiting to suggest renal colic. I have independently reviewed the following tests: Labs: No leukocytosis, not anemic, no electrolyte abnormality viral panel negative , urine negative Chest x-ray:mpression: 1. Eventration right hemidiaphragm with probable retrocardiac atelectasis versus infiltrate unchanged. There is volume loss on the left with mild mediastinal shift to the left Lab Data 07/16/24 20:15 07/16/24 20:15 Labs: Lab Results 07/16/24 07/16/24 Range/Units 15:21 20:15 WBC 6.2 (4.8-10.8) X10*3/uL RBC 4.17 L (4.60-5.80) X10*6/uL Hgb 12.1 L (14.0-18.0) g/dl Hct 38.0 L (42.0-52.0) % MCV 91.1 (80.0-98.0) fL MCH 29.0 (27.0-33.0) pg MCHC 31.8 (31.0-36.0) g/dl RDW 16.5 H (11.0-16.0) % Plt Count 225 (160-400) X10*3/uL MPV 10.6 (9.4-12.4) fL Immature Gran % (Auto) 0.2 (0.0-0.4) % Neut % (Auto) 64.0 (45-73) % Lymph % (Auto) 24.4 (20-40) % [place] % (Auto) 8.3 (2-11) % Eos % (Auto) 2.8 (0-4) % Baso % (Auto) 0.3 (0-2) % Lymph # (Auto) 1.5 (1.2-4.9) X10*3/uL [place] # (Auto) 0.5 (0.1-1.2) X10*3/uL Eos # (Auto) 0.2 (0.0-0.4) X10*3/uL Baso # (Auto) 0.0 (0.0-0.2) X10*3/uL Abs Immat Gran (auto) 0.01 (0.00-0.03) X10*3/uL Absolute Neuts (auto) 4.0 (2.0-8.3) x10*3/uL Absolute Nucleated RBC 0.000 (0.0-0.012) X10*3/uL Nucleated RBC % (auto) 0.0 (0.0-0.2) /100WBC Sodium 140 (135-145) mmol/L Potassium 3.9 (3.3-5.1) mmol/L Chloride 108 (96-108) mmol/L Carbon Dioxide 26 (22-29) mmol/L Anion Gap 10 L (12-20) BUN 15 (9-16) mg/dL Creatinine 1.37 (0.5-1.4) mg/dL Estim Creat Clear Calc 73.4 Estimated GFR 54 Random Glucose 64 (60-115) mg/dL Calcium 8.8 (8.4-10.2) mg/dL Magnesium 1.7 (1.6-2.6) mg/dL Total Bilirubin 0.5 (0.0-1.0) mg/dL AST 17 (5-37) U/L ALT 17 (0-40) U/L Alkaline Phosphatase 78 (39-117) U/L Troponin I High Sens 3.4 (<3.5-35.0) ng/L Total Protein 6.5 (6.5-8.0) g/dL Albumin 3.6 (3.5-5.0) g/dL Lipase 30 (8-78) U/L Urine Color Yellow Urine Appearance Clear Urine pH >= 9.0 (5.0-9.0) Ur Specific [place] 1.010 (1.005-1.025) Urine Protein Negative (Neg-Trace) mg/dL Urine Glucose (UA) Negative (Negative) mg/dL Urine Ketones Negative (Negative) mg/dL Urine Blood Negative (Negative) Urine Nitrite Negative (Negative) Ur Leukocyte Esterase Negative (Negative) Influenza Type A (PCR) NEGATIVE (Negative) Influenza Type B (PCR) NEGATIVE (Negative) RSV RNA Qual (PCR) NEGATIVE (Negative) SARS-CoV-2 RNA (RT-PCR) NEGATIVE (Negative) Discharge Plan Discharge Clinical Impression: Shortness of breath, Dizziness, Dysuria Patient Disposition: Home, Self-Care Instructions: Dizziness (ED), Dysuria (ED) Additional Instructions: In regard to your shortness of breath, the chest x-ray is improved from 4 days ago, your lung exam was unremarkable. All of your screening labs were normal including a viral panel which was negative. In regard to your pain with urination, your urine is not infected. In regard to your ongoing dizziness, you need to follow up with your primary care provider for further assessment. Prescriptions: No Action cholecalciferol (vitamin D3) 50 mcg (2,000 unit) capsule 50 mcg PO DAILY 90 Days Qty: 90 3RF metformin 1,000 mg tablet 1,000 mg PO BID 90 Days Qty: 180 1RF atorvastatin 40 mg tablet 40 mg PO DAILY 90 Days Qty: 90 1RF albuterol sulfate [Ventolin HFA] 90 mcg/actuation HFA aerosol inhaler 2 puff inhalation Q4-6H PRN (Reason: shortness of breath or wheezing) 30 Days Qty: 18 1RF meclizine 25 mg tablet 25 mg PO TID PRN (Reason: dizziness) Qty: 20 0RF docusate sodium 100 mg Capsule 100 mg PO BEDTIME Qty: 30 0RF aripiprazole [Abilify] 5 mg Tablet 5 mg PO DAILY 30 Days Qty: 30 0RF benztropine 0.5 mg Tablet 0.5 mg PO BID 30 Days Qty: 60 0RF hydroxyzine HCl 25 mg Tablet 25 mg PO BID@0900,1700 30 Days Qty: 60 0RF thiamine HCl (vitamin B1) 100 mg tablet 100 mg PO BID melatonin 3 mg tablet 6 mg PO BEDTIME trazodone 50 mg tablet 50 mg PO BEDTIME PRN (Reason: insomnia) atenolol 25 mg tablet 25 mg PO DAILY tamsulosin 0.4 mg capsule 0.4 mg PO BEDTIME ferrous sulfate 325 mg (65 mg iron) tablet 325 mg PO DAILY omeprazole 40 mg capsule,delayed release(DR/EC) 40 mg PO DAILY haloperidol [Haldol] 10 mg Tablet 10 mg PO BEDTIME insulin glargine-yfgn 100 unit/mL (3 mL) insulin pen 20 unit subcut QPM bupropion HCl 150 mg tablet extended release 24 hr 150 mg PO DAILY prednisone 20 mg tablet 40 mg PO DAILY Qty: 6 0RF aripiprazole [Abilify] 5 mg tablet 5 mg PO DAILY Qty: 7 0RF atenolol 25 mg tablet 25 mg PO DAILY Qty: 7 0RF trazodone 50 mg tablet 50 mg PO BEDTIME PRN (Reason: insomnia) Qty: 7 0RF tamsulosin [Flomax] 0.4 mg capsule 0.4 mg PO BEDTIME Qty: 7 0RF thiamine HCl (vitamin B1) 100 mg tablet 100 mg PO BID Qty: 14 0RF atorvastatin [Lipitor] 40 mg tablet 40 mg PO DAILY Qty: 7 0RF haloperidol 10 mg tablet 10 mg PO BEDTIME Qty: 7 0RF hydroxyzine HCl 25 mg tablet 25 mg PO BID Qty: 14 0RF bupropion HCl [Wellbutrin XL] 150 mg tablet extended release 24 hr 150 mg PO QAM Qty: 7 0RF insulin glargine [Lantus Solostar U-100 Insulin] 100 unit/mL (3 mL) insulin pen 20 unit subcut QPM Qty: 3 0RF meclizine 25 mg tablet 25 mg PO TID PRN (Reason: dizziness) Qty: 20 0RF doxycycline monohydrate 100 mg capsule 100 mg PO BID Qty: 14 0RF prednisone 20 mg tablet 40 mg PO DAILY Qty: 10 0RF Print Language: [place]
--- NOTE | 2024-07-16 15:12 | ECG_ITS ---
Test Reason : SOB, DIZZINESS Blood Pressure : */* mmHG Vent. Rate : 66 BPM Atrial Rate : 66 BPM P-R Int : 148 ms QRS Dur : 100 ms QT Int : 422 ms P-R-T Axes : 35 -3 11 degrees QTcB Int : 442 ms Normal sinus rhythm Minimal voltage criteria for LVH, may be normal variant ( R in aVL ) Borderline ECG When compared with ECG of 11-Jul-2024 17:42, No significant change was found Referred By: Mery Hodges Electronically Signed By: HILTON DONATO MD
--- OUTSIDE RECORDS SUMMARY | 2024-07-16 15:29 | XMS_ITS ---
Author Organization [facility] Address [address] [place] [address] Care Team Providers Care Marine Geologist Name Role Phone Fox Ku MD Primary Care Provider Tashi Bruno Unavailable [phone] Alisha Moore Unavailable Unavailable Allergies No Known Allergies REASON FOR VISIT Patient presents today for a colon screening Medications Medication SIG (Take, Route, Frequency, Duration) Notes [...] HCl 1000 MG Oral for 90 Active Social History Tobacco Use: Social History Observation Description Date Details (start date - stop date) Never Smoker NA - NA Tobacco Use/Smoking Question Answer Notes Patient is a nonsmoker Alcohol Screen Question Answer Notes Did you have a drink containing alcohol in the p ast year? No Points 0 Interpretation Negative Section Notes: Nonsmoker(never); no sig. al cohol Problems Problem Type SNOMED Code ICD Code Onset Dates Problem Status W/U Status Risk Notes Problem 530821434 History of adenomatous polyp of colon (Z86.010) Active confirmed Problem 873879151 Colon cancer screening (Z12.11) Active confirmed Problem 859014743310514 Preprocedural examination (Z01.818) Active confirmed Problem 183171632 Gastroesophageal reflux disease without esophagitis (K21.9) Active confirmed Vital Signs Temperature 97.7 degrees Fahrenheit 04/17/20 23 Blood pressure systolic 00 mm Hg 04/17/20 23 Blood pressure diastolic 00 mm Hg 023 Height 67.75 in 04/17/2023 Weight 262 lbs 04/17/2023 BMI 40.13 kg/m2 04/17/2023 Encounters Encounter Location Date Provider Diagnosis [facility] [address] [place] [address] 04/17/2023 Tashi Currie Preprocedural examin ation Z01.818 ; Gastroesophageal reflux disease without esophagitis K21.9 ; History of adenomatous polyp of colon Z86.010 and Colon cancer screening Z12.11 Assessments Encounter Date Diagnosis (ICD Code) Assessment Notes Treatment Notes Treatment Clinical Notes Section Notes 04/17/2023 Preprocedural examination (ICD-10 - Z01.818) Overall, Kian appears well from a GI standpoint. He is not having any new or worrisome GI complaints. His reflux seems to be stable on his daily omeprazole. Based on his clinical history and the previous endoscopy findings I don't think any further evaluation of that is required. I did advise him to continue his daily omeprazole for symptomatic relief of the reflux. We did review that obviously watching his diet, eating small meals, and losing weight would be beneficial to him in this regard as well. I did recommend a followup colonoscopy for further screening given his history of tubular adenomas removed over 5 years ago. We did review the rationale for this in regard to colon cancer prevention. Full consent was obtained for this, including risks of bleeding and perforation. He will use a two-day prep for the colonoscopy to hopefully allow for an adequate clean out. The procedure will be done withmonitored anesthesia care. He was given the below instructions regarding adjustment of his medications for the procedure. Kian was comfortable with this plan. Thank you again for allowing me to participate in Kian's care. I shall continue to keep you advised of his progress. 04/17/2023 Gastroesophageal reflux disease without esophagitis (ICD-10 - K21.9) Overall, Kian appears well from a GI standpoint. He is not having any new or worrisome GI complaints. His reflux seems to be stable on his daily omeprazole. Based on his clinical history and the previous endoscopy findings I don't think any further evaluation of that is required. I did advise him to continue his daily omeprazole for symptomatic relief of the reflux. We did review that obviously watching his diet, eating small meals, and losing weight would be beneficial to him in this regard as well. I did recommend a followup colonoscopy for further screening given his history of tubular adenomas removed over 5 years ago. We did review the rationale for this in regard to colon cancer prevention. Full consent was obtained for this, including risks of bleeding and perforation. He will use a two-day prep for the colonoscopy to hopefully allow for an adequate clean out. The procedure will be done withmonitored anesthesia care. He was given the below instructions regarding adjustment of his medications for the procedure. Kian was comfortable with this plan. Thank you again for allowing me to participate in Kian's care. I shall continue to keep you advised of his progress. 04/17/2023 History of adenomatous polyp of colon (ICD-10 - Z86.010) Overall, Kian appears well from a GI standpoint. He is not having any new or worrisome GI complaints. His reflux seems to be stable on his daily omeprazole. Based on his clinical history and the previous endoscopy findings I don't think any further evaluation of that is required. I did advise him to continue his daily omeprazole for symptomatic relief of the reflux. We did review that obviously watching his diet, eating small meals, and losing weight would be beneficial to him in this regard as well. I did recommend a followup colonoscopy for further screening given his history of tubular adenomas removed over 5 years ago. We did review the rationale for this in regard to colon cancer prevention. Full consent was obtained for this, including risks of bleeding and perforation. He will use a two-day prep for the colonoscopy to hopefully allow for an adequate clean out. The procedure will be done withmonitored anesthesia care. He was given the below instructions regarding adjustment of his medications for the procedure. Kian was comfortable with this plan. Thank you again for allowing me to participate in Kian's care. I shall continue to keep you advised of his progress. 04/17/2023 Colon cancer screening (ICD-10 - Z12.11) TWO DAY PREP FOR THE COLONOSCOPY Take only 1/2 your usual Insulin the day before and on the day of the colonoscopy Do not take the Metformin the night before nor on the day of the colonoscopy Stop Iron a full week before the colonoscopy Overall, Kian appears well from a GI standpoint. He is not having any new or worrisome GI complaints. His reflux seems to be stable on his daily omeprazole. Based on his clinical history and the previous endoscopy findings I don't think any further evaluation of that is required. I did advise him to continue his daily omeprazole for symptomatic relief of the reflux. We did review that obviously watching his diet, eating small meals, and losing weight would be beneficial to him in this regard as well. I did recommend a followup colonoscopy for further screening given his history of tubular adenomas removed over 5 years ago. We did review the rationale for this in regard to colon cancer prevention. Full consent was obtained for this, including risks of bleeding and perforation. He will use a two-day prep for the colonoscopy to hopefully allow for an adequate clean out. The procedure will be done withmonitored anesthesia care. He was given the below instructions regarding adjustment of his medications for the procedure. Kian was comfortable with this plan. Thank you again for allowing me to participate in Kian's care. I shall continue to keep you advised of his progress. Plan Of Treatment Treatment Notes Assessment Notes Colon cancer screening [...] Follow Up: prn, Reason: Progress Notes * KIAN MAHMOOD ODOB: [birth year] (52 yo M)Acc No.[id number]:04/17/2023 Progress Notes Patient:?KIAN MAHMOOD Provider:?Tashi Currie MD :1970???Age:52 Y???Sex:Male Bravo e:04/17/2023 Address:[address] [place], [place] [id number] Pcp:Fox Ku MD Subjective: * Chief Complaints: * ???Patient presents today fo r a colon screening * HPI: ???incontinence:? I saw Kian in consultation today in regard to his personal history of tubular adenomas of the colon and need for colon cancer screening, as well as his gastroesophageal reflux. ?I last saw Kian in 2017, at which time he underwent evaluation for iron deficiency anemia. His upper endoscopy in August 2017 revealed only a small hiatal hernia, but there was no evidence of any esophagitis, Calderón's esophagus, nor any other significant abnormalities. Duodenal biopsies were negative for celiac disease. His colonoscopy in August 2017 revealed 2 tubular adenomas that were removed. Due to a relatively poor prep he underwent a second colonoscopy that same year with a much better cleanout and that exam was negative for any other polyps. ?Since that time he has remained on daily omeprazole with good relief of reflux symptoms. He denies any significant heartburn, dysphagia, anorexia, early satiety, nausea, nor vomiting. His bowel movements have been regular without any signs of bleeding. He denies abdominal pain, jaundice, nor weight loss. He denies any known family history of colon cancer. ?Laboratories from last month revealed a normal CBC except for a hemoglobin of 13.7 with a normal MCV, normal chemistries, and normal LFTs. * ROS:?General/Constitutional:?Change in appetite?denies.?Chills?denies.?Fatigue?denies.?Ophthalmologic:?Comments?all negative.?ENT:?Comments?Hard of hearing.?Respiratory:?hemoptysis?denies.?Cough?denies.?Cardiovascular:?Chest pain?denies.?Orthopnea?denies.?Gastrointestinal:?Comments?See HPI for details.?Genitourinary:?Hematuria?denies.?Dysuria?denies.?Musculoskeletal:?Painful joints?denies.?Weakness?denies.?Skin:?Itching?denies.?Rash?denies.?Neurologic:?Headache?denies.?Seizures?denies.?Psychiatric:?Comments?all negative.? * Medical History:? * Surgical History:?Mass remov ed--Dr. Fields at [facility]-- Benign , but had XRT 2009Right inguinal hernia 1991Ear tubes/Adenoids * Hospitalization/Major Diagno stic Procedure:?No Hospitalization History. * Family History:?Father: dece ased, diagnosed with HTN (hypertension).?Mother: .? No known hx of colorectal cancer, inflammatory bowel disease, nor celiac disease. * Social History:?Tobacco Use:?Tobacco Use/Smoking?Patient is a?nonsmoker.?Drugs/Alcohol:?Alcohol Screen?Did you have a drink containing alcohol in the past year??No,?Points?0,?Interpretation?Negative.?Miscellaneous:?Marital status: single. Occupation: Not working. ???Nonsmoker(never); no sig. alcohol. * Medications:?TakingCholecalc iferol 50 MCG (2000 UT) Capsule 1 capsule Orally Once a dayLantus 100 UNIT/ML Solution as directed Subcutaneous 20 units a dayOmeprazole 40 MG Capsule Delayed Release 1 capsule 30 minutes before morning meal Orally Once a dayAtorvastatin Calcium 40 MG Tablet 1 tablet Orally Once a dayAlbuterol Sulfate metFORMIN HCl 1000 MG Tablet Oral Ferrous Sulfate 325 (65 Fe) MG Tablet Oral Escitalopram Oxalate 20 MG Tablet Oral Tamsulosin HCl 0.4 MG Capsule Oral Atenolol 25 MG Tablet Oral Ventolin HFA 108 (90 Base) MCG/ACT Aerosol Solution Inhalation Taking Cholecalciferol 50 MCG (2000 UT) Capsule 1 capsule Orally Once a dayTaking Lantus 100 UNIT/ML Solution as directed Subcutaneous 20 units a dayTaking Omeprazole 40 MG Capsule Delayed Release 1 capsule 30 minutes before morning meal Orally Once a dayTaking Atorvastatin Calcium 40 MG Tablet 1 tablet Orally Once a dayTaking Albuterol Sulfate Taking metFORMIN HCl 1000 MG Tablet Oral Taking Ferrous Sulfate 325 (65 Fe) MG Tablet Oral Taking Escitalopram Oxalate 20 MG Tablet Oral Taking Tamsulosin HCl 0.4 MG Capsule Oral Taking Atenolol 25 MG Tablet Oral Taking Ventolin HFA 108 (90 Base) MCG/ACT Aerosol Solution Inhalation DiscontinuedProAir HFA Dulera Tylenol 1 tab Oral prnMiraLax (colon prep) 8.3 ounce ((238) grams mixed with Gatorade or Crystal Light orally begin at 5:00 p.m. the day before the procedureDulcolax (colon prep) 5 MG Tablet Delayed Release take at 3:00 p.m and 7:00p.m. Orally two tablets twice a day for one dayMiraLax (colon prep) 8.3 ounce ((238) grams mixed with Gatorade or Crystal Light orally Take 1/2 bottle 2 days before, and then begin at 5:00 p.m. the day before the procedureDulcolax (colon prep) 5 MG Tablet Delayed Release take at 3:00 p.m and 7:00p.m. Orally Take 2 tablets 2 days before, and then two tablets twice a day for one dayWarfarin Sodium atenolol Medication List reviewed and reconciled with the patientDiscontinued ProAir HFA Discontinued Dulera Discontinued Tylenol 1 tab Oral prnDiscontinued MiraLax (colon prep) 8.3 ounce ((238) grams mixed with Gatorade or Crystal Light orally begin at 5:00 p.m. the day before the procedureDiscontinued Dulcolax (colon prep) 5 MG Tablet Delayed Release take at 3:00 p.m and 7:00p.m. Orally two tablets twice a day for one dayDiscontinued MiraLax (colon prep) 8.3 ounce ((238) grams mixed with Gatorade or Crystal Light orally Take 1/2 bottle 2 days before, and then begin at 5:00 p.m. the day before the procedureDiscontinued Dulcolax (colon prep) 5 MG Tablet Delayed Release take at 3:00 p.m and 7:00p.m. Orally Take 2 tablets 2 days before, and then two tablets twice a day for one dayDiscontinued Warfarin Sodium Discontinued atenolol Medication List reviewed and reconciled with the patient * Allergies:?N.K.D.A.yes[Aller gies Verified] Objective: * Vitals:?Wt: 262 lbs, Ht: 67. 75 in, BMI:40.13 Index, BP: 00/00 mm Hg, Temp: 97.7. * Examination: ???General Examination: ?GENERAL APPEARANCE:?pleasant, well nourished, well developed, in no acute distress.?EYES:?sclera non-icteric.?ORAL CAVITY:?mucosa moist.?NECK/THYROID:?no cervical lymphadenopathy, neck supple.?SKIN:?nonjaundiced, no spider angiomata.?HEART:?S1, S2 normal.?LUNGS:?clear to auscultation bilaterally.?ABDOMEN:?normal bowel sounds, no guarding or rigidity, no guarding or rigidity, no masses palpable, soft, nontender, nondistended.?EXTREMITIES:?no edema.?NEUROLOGIC:?alert and oriented.? Assessment: * Assessment: 1.?Gastroesophageal reflux d isease without esophagitis - K21.9 (Primary)?2.?Preprocedural examination - Z01.818?3.?History of adenomatous polyp of colon - Z86.010?4.?Colon cancer screening - Z12.11? Overall, Kian appears well from a GI standpoint. He is not having any new or worrisome GI complaints. His reflux seems to be stable on his daily omeprazole. Based on his clinical history and the previous endoscopy findings I don't think any further evaluation of that is required. I did advise him to continue his daily omeprazole for symptomatic relief of the reflux. We did review that obviously watching his diet, eating small meals, and losing weight would be beneficial to him in this regard as well. I did recommend a followup colonoscopy for further screening given his history of tubular adenomas removed over 5 years ago. We did review the rationale for this in regard to colon cancer prevention. Full consent was obtained for this, including risks of bleeding and perforation. He will use a two-day prep for the colonoscopy to hopefully allow for an adequate clean out. The procedure will be done withmonitored anesthesia care. He was given the below instructions regarding adjustment of his medications for the procedure. Kian was comfortable with this plan. Thank you again for allowing me to participate in Kian's care. I shall continue to keep you advised of his progress. Plan: * Treatment: 2.?Colon cancer screening?Procedure: COLONOSCOPY (Ordered for 04/17/2023)* with MACsched for 07/13/23 at 10:30 am2 full day miralax prep Notes: TWO DAY PREP FOR THE COLONOSCOPY Take only 1/2 your usual Insulin the day before and on the day of the colonoscopy Do not take the Metformin the night before nor on the day of the colonoscopy Stop Iron a full week before the colonoscopy.?? * Procedure Codes:?3017F COLOR ECTAL CA SCREEN DOC [id number] TOBACCO NON-[id number] BP SCR NOT PRFRM REC REASON NOS * Preventive Medicine:? ??Counseling:?Care goal follow-up plan:?Above Normal BMI Follow-up?Giving encouragement to exercise,?BMI management provided?Yes.? * Follow Up:?prn * * Sign off status: Completed true * Provider:?Tashi Currie MD Date:? 023 Generated for Chilo terrazas/Mariia/eTransmitting on:?07/16/2024 03:28 PM EST History and Physical Notes * HPI (History of Present Illness) Category Sub-Category Detail Notes Category Not es incontinence I saw Kian in consultation today in regard to his personal history of tubular adenomas of the colon and need for colon cancer screening, as well as his gastroesophageal reflux. I last saw Kian in 2017, at which time he underwent evaluation for iron deficiency anemia. His upper endoscopy in August 2017 revealed only a small hiatal hernia, but there was no evidence of any esophagitis, Calderón's esophagus, nor any other significant abnormalities. Duodenal biopsies were negative for celiac disease. His colonoscopy in August 2017 revealed 2 tubular adenomas that were removed. Due to a relatively poor prep he underwent a second colonoscopy that same year with a much better cleanout and that exam was negative for any other polyps. Since that time he has remained on daily omeprazole with good relief of reflux symptoms. He denies any significant heartburn, dysphagia, anorexia, early satiety, nausea, nor vomiting. His bowel movements have been regular without any signs of bleeding. He denies abdominal pain, jaundice, nor weight loss. He denies any known family history of colon cancer. Laboratories from last month revealed a normal CBC except for a hemoglobin of 13.7 with a normal MCV, normal chemistries, and normal LFTs. Examination Category Sub-Category Detail Notes Category Not es General Examination GENERAL APPEARANCE: pleasant , well [...]
--- OUTSIDE RECORDS SUMMARY | 2024-07-16 15:29 | XMS_ITS | Encounter Summary ---
Author Organization [facility] Address [address] [place] [address] Care Team Providers Care Dental Patient Coordinator Name Role Phone Unavailable Primary Care Provider Unavailabl e Encounter Details Date Type Department Care Team (Late st Contact Info) Description 12/23/[address] [facility] [address] [place] [id number] Gastroenterology, Scan Social History Tobacco Use Types [...]
--- OUTSIDE RECORDS SUMMARY | 2024-07-16 15:29 | XMS_ITS | Patient Health Record ---
Author Organization [facility] Address [address] [place] [address] Care Team Providers Care Box Coverer Hand Name Role Phone Fox Ku MD Primary Care Provider Briana Tashi Erwin Unavailable [phone] Alisha Moore Unavailable Unavailable Allergies No Known Allergies Reason For Referral No Information Medications Medication SIG (Take, Route, Frequency, Duration) [...] units a day Active Cholecalciferol 50 MCG (1999 UT) 1 capsule Orally Once a day for 30 day(s) Active Immunizations Vaccine Route Administration Date Status Comme nts Influenza Unknown 01/09/2017 Administered Social History Tobacco Use: Social History Observation Description Date Details (start date - stop date) Never Smoker NA - NA Tobacco Use/Smoking Question Answer Notes Patient is a nonsmoker Alcohol Screen Question Answer Notes Did you have a drink containing alcohol in the p ast year? No Points 0 Interpretation Negative Section Notes: Nonsmoker(never); no sig. al cohol Nonsmoker(never); no sig. al cohol Problems Problem Type SNOMED Code ICD Code Onset Dates Problem Status W/U Status Risk Notes Problem 893679617 Colon cancer screening (Z12.11) Active confirmed Problem 704991105 History of adenomatous polyp of colon (Z86.010) Active confirmed Problem Diverticular disease of colon (027447738) Diverticulosis of large intestine without perforation or abscess without bleeding (K57.30) Active confirmed Problem 712966741 Gastroesophageal reflux disease without esophagitis (K21.9) Active confirmed Problem 034493370692373 Preprocedural examination (Z01.818) Active confirmed Problem 07056043 Iron deficiency anemia, unspecified iron deficiency anemia type (D50.9) Active confirmed Plan Of Treatment Pending Test Test Name Order Date Pathology 07/13/2023 Future Test Test Name Order Date UPPER GI ENDOSCOPY 06/23/2017 COLONOSCOPY 06/23/2017 COLONOSCOPY 04/17/2023 Insurance Providers Payer Name Payer Address Payer Phone Subscriber Number Group Number Insured Name Patient Relationship to Insured Coverage Start Date Coverage End Date [facility] [address] [address] [place], [place] [id number] KIAN MAHMOOD Self - patient is the insured MEDICAID OF [facility] [address] [place] [address] [id number] KIAN MAHMOOD Self - patient is the insured Medical (General) History Medical History History ICD Code IDDM Hypertension Heart murmur-Dr. Collins Asthma/COPD- Dr. Correa Pulmonary embolus in 2016--on Coumadin-- sees Dr. Moore Lung mass--surgery in 2008 a s below, with XRT; biopsied in approx 2015 and benign--followed by Dr. Tino Dim[place],CVA,renal disease GERD--upper endoscopy August of 2017 with [...]
--- OUTSIDE RECORDS SUMMARY | 2024-07-16 15:29 | XMS_ITS | Clinical Summary ---
Author Organization [facility] Address [address] [place] [address] Care Team Providers Care Rn Intake Name Role Phone Bon Arvizu MD Primary Care Provider [phone] Allergies No known active allergies Medications Ventolin [...] Only [facility] [address] [place] [address] Tashi Bonner MD [address] [address] Stage 3a chronic kidney disease (HCC); Type 2 diabetes mellitus with diabetic chronic kidney disease (HCC) 08/04/2024 1:15 PM EDT Office Visit [facility] [address] [place] [address] Tashi Bonner MD [address] [address] Health Maintenance Due Date Last [...] Exam 09/25/2022 Influenza Vaccine (#1) [address] [place] [address] [place] [address] Care Teams Rn Intake Relationship Specialty Start Date End Date Bon Arvizu MD [address] [place] [id number] PCP - General Internal Medicine 06/04/22
--- OUTSIDE RECORDS SUMMARY | 2024-07-16 15:29 | XMS_ITS ---
Author Organization [facility] Address [address] [place] [address] Care Team Providers Care Flexible Machining System Machinist Name Role Phone Fox Ku MD Primary Care Provider Tashi Bruno [phone] Alisha Moore Unavailable Unavailable REASON FOR VISIT screening,hx polyps Problems Problem Type SNOMED Code ICD Code Onset Dates Problem Status W/U Status Risk Notes Problem Diverticular disease of colon (823193966) Diverticulosis of large intestine without perforation or abscess without bleeding (K57.30) Active confirmed Encounters Encounter Location Date Provider Diagnosis [facility] [place] [facility] [address] [place] [phone] 07/13/2023 Tashi Currie Encounter for scre ening [...] Progress Notes * KIAN MAHMOOD ODOB: [birth year] (53 yo M)Acc No.[id number]:07/13/2023 COLON WITH MAC Patient:?KIAN MAHMOOD Provider:?Tashi Currie MD :1970???Age:52 Y???Sex:Male Bravo e:07/13/2023 Address:[address] [place] [address] , [address] [facility] Pcp:Fox Ku MD Subjective: * Chief Complaints: * ???1. Screening,hx polyps. * Medical History:? Objective: * Vitals:? Assessment: * Assessment: 1.?Encounter for screening c olonoscopy - Z12.11 (Primary)???2.?Colon polyps - K63.5???3.?Diverticulosis of large intestine without perforation or abscess without bleeding - K57.30???4.?Other hemorrhoids - K64.8??? Plan: * Treatment: * Procedure Codes:?55452 COLON OSCOPY AND BIOPSY, Modifiers: 33 * * The named appointment provid er may or may not be the originator of this progress note, and it is not deemed complete until electronically signed by the appointment provider. Sign off status: Pending * Provider:?Tashi Currie MD Date:? 024 Generated for Chilo terrazas/Mariia/eTransmitting on:?07/16/2024 03:29 PM EST
--- OUTSIDE RECORDS SUMMARY | 2024-07-16 15:29 | XMS_ITS ---
Author Organization [facility] Address [address] [place] [address] Care Team Providers Care Chief Console Operator Name Role Phone Fox Ku MD Primary Care Provider Tashi Bruno [phone] Alisha Moore Unavailable Unavailable REASON FOR VISIT 2 day bowel prep Medications Medication SIG (Take, Route, Frequency, Duration) [...] Active Encounters Encounter Location Date Provider Diagnosis [facility] [address] [place] [phone] 04/17/2023 Tashi Currie Plan Of Treatment Medication Medication Name Sig Start Date Stop [...] before the procedure for 2 days 04/19/2023 Progress Notes * KIAN MAHMOOD ODOB: [birth year] (52 yo M)Acc No.[id number]:04/17/2023 Patient:?KIAN MAHMOOD O :1970???Age:52 Y???Sex:Male Address:[address] [place] [address] * Refills? Start MiraLax (colon prep) Powder, 17 GM/SCOOP, Orally, 2, 1/2 bottle of 238Gm Miralax in 1 quart of Gatorade 2 days before the colonoscopy and then 1 full 238Gm bottle of Miralax mixed with 2 quarts of Gatorade or Crystal Light, Take the 1/2 bottle 2 days before the colonoscopy, and then do the 2nd bottle of Miralax by beginning at 5:00 p.m. the day before the procedure, 2 days, Refills=0 Start Dulcolax (colon prep) Tablet Delayed Release, 5 MG, Orally, 6, Take 2 Dulcolax 2 days before the colonoscopy, and take 2 Dulcolax at 3:00 p.m and 7:00p.m. the day before the colonoscopy, Two tablets 2 days before the colonoscopy, and two tablets twice a day for one day before the colonsocpy, 2 days, Refills=0 * true * Date:? Generated for Chilo terrazas/Mariia/Kavyaitting on:?07/16/2024 03:29 PM EST
--- OUTSIDE RECORDS SUMMARY | 2024-07-16 15:29 | XMS_ITS | Clinical Summary ---
Author Organization [facility] Address [address] [place] [address] Care Team Providers Care Strategy Specialist Name Role Phone Unavailable Primary Care Provider [...]
[2024-07-16 15:53] LABS: Troponin-I High Sensitivity 3.4 ng/L (<3.5-35.0)
[2024-07-16 16:09] LABS: Influenza A PCR NEGATIVE (Negative); Influenza B PCR NEGATIVE (Negative); Resp Syncy Virus RNA Qual PCR NEGATIVE (Negative); SARS COV2 PCR INHOUSE NEGATIVE (Negative)
[2024-07-16 19:46] VITALS: BP 137/59; PULSE 60; RESP 17; TEMP 36.6; O2SAT 98
[2024-07-16 20:20] LABS: MANUAL DIFF FLAG NO
[2024-07-16 20:21] LABS: Basophils Percent Auto 0.3 % (0-2); Eosinophils Absolute Auto 0.2 X10*3/uL (0.0-0.4); Eosinophils Percent Auto 2.8 % (0-4); Hemoglobin 12.1 g/dl (14.0-18.0); Imm Gran Abs Auto 0.01 X10*3/uL (0.00-0.03); Imm Gran Pct Auto 0.2 % (0.0-0.4); Lymphocytes Absolute Auto 1.5 X10*3/uL (1.2-4.9); Lymphocytes Percent Auto 24.4 % (20-40); Mean Corpuscular HGB Conc 31.8 g/dl (31.0-36.0); Mean Corpuscular Volume 91.1 fL (80.0-98.0); Mean Platelet Volume 10.6 fL (9.4-12.4); Monocytes Absolute Auto 0.5 X10*3/uL (0.1-1.2); Monocytes Percent Auto 8.3 % (2-11); Platelet Count 225 X10*3/uL (160-400); Red Blood Count 4.17 X10*6/uL (4.60-5.80); Red Cell Distribution Width 16.5 % (11.0-16.0); White Blood Count 6.2 X10*3/uL (4.8-10.8)
[2024-07-16 20:22] LABS: Appearance Urine Clear; Color Urine Yellow; Glucose Urine UA Negative (Negative); Leukocyte Esterase Urine Negative (Negative); Nitrite Urine Negative (Negative); PH >= 9.0 (5.0-9.0); Urine Blood Negative (Negative); Urine Ketones Negative (Negative); Urine Protein Negative (Neg-Trace)
[2024-07-16 20:42] LABS: Alanine Aminotransferase 17 U/L (0-40); Albumin Level 3.6 g/dL (3.5-5.0); Alkaline Phosphatase 78 U/L (39-117); Anion Gap 10 (12-20); Aspartate Amino Transferase 17 U/L (5-37); Bilirubin Total 0.5 mg/dL (0.0-1.0); Blood Urea Nitrogen 15 mg/dL (9-16); Calcium 8.8 mg/dL (8.4-10.2); Carbon Dioxide 26 mmol/L (22-29); Chloride 108 mmol/L (96-108); Creatinine Clr Calc Pharmacy 73.4; Estimated Glomerular Filt Rate 54; Glucose Random 64 mg/dL (60-115); Lipase 30 U/L (8-78); Magnesium 1.7 mg/dL (1.6-2.6); Potassium 3.9 mmol/L (3.3-5.1); Sodium 140 mmol/L (135-145); Total Protein 6.5 g/dL (6.5-8.0)
--- NOTE | 2024-07-16 21:52 | PC.NURSE ---
Pt resting in bed watching tv. A&Ox3 skin pwd respirations even unlabored. Originally presented to ED for multiple complaints- continued increased use of inhaler after being dx with PNA on Thursday, intermittent dizziness, and burning on urination. Denies pain at this time. All results received, awaiting provider reeval and disposition. Aware of plan of care.
[2024-07-16 22:24] VITALS: BP 150/72; PULSE 57; RESP 16; TEMP 36.9; O2SAT 96
--- NOTE | 2024-07-16 23:28 | PC.NURSE ---
Provider to bedside for eval, awaiting dispo, no change in physical assessment.
[2024-07-16 23:49] VITALS: BP 141/70; PULSE 58; RESP 18; TEMP 36.7; O2SAT 96
[2024-07-16 23:54] VITALS: BP 141/70; PULSE 58; RESP 18; TEMP 36.7; O2SAT 96
== END 2024-07-16 23:54 | disposition home or self-care (01) ==
PROVIDERS: Physician Assistant Medical; Emergency Provider Emergency Medicine Emergency Medical Services; PCP Internal Medicine
DX: R06.02 Shortness of breath (principal); R42 Dizziness and giddiness; R30.0 Dysuria; R33.9 Retention of urine, unspecified; R05.9 Cough, unspecified; E11.22 Type 2 diabetes mellitus with diabetic chronic kidney disease; I12.9 Hypertensive chronic kidney disease with stage 1 through stage 4 chronic kidney disease, or unspecified chronic kidney disease; N18.30 Chronic kidney disease, stage 3 unspecified; E78.00 Pure hypercholesterolemia, unspecified; J45.909 Unspecified asthma, uncomplicated; Z79.899 Other long term (current) drug therapy; Z79.4 Long term (current) use of insulin; Z79.02 Long term (current) use of antithrombotics/antiplatelets; Z03.818 Encounter for observation for suspected exposure to other biological agents ruled out
CPT/HCPCS: 0241U; 36415; 71046; 80053; 81003; 83690; 83735; 84484; 85025; 93005; 99283; 99284

== ENCOUNTER → 2024-07-16 15:11 | Outpatient (BNV) | payer OTHER, SELFPAY | PROVIDERS: PCP Internal Medicine; Visit Provider Radiology Diagnostic Radiology | DX: J98.6 Disorders of diaphragm (principal) | CPT/HCPCS: 71046 ==

== ENCOUNTER → 2024-07-16 15:12 | Outpatient (BNV) | payer OTHER, SELFPAY | PROVIDERS: Emergency Provider Emergency Medicine Emergency Medical Services; PCP Internal Medicine; Visit Provider Internal Medicine Cardiovascular Disease | DX: R06.02 Shortness of breath (principal); R42 Dizziness and giddiness | CPT/HCPCS: 93010 ==

== ENCOUNTER 2024-07-22 07:35 | Outpatient (AMB) | payer OTHER, SELFPAY ==
--- OUTSIDE RECORDS SUMMARY | 2024-07-22 07:37 | XMS_ITS ---
Author Organization [facility] Address [address] [place] [address] Care Team Providers Care Magnetic Observer Name Role Phone Fox Ku MD Primary Care Provider Tashi Bruno Unavailable [phone] Alisha Moore Unavailable Unavailable Allergies No Known [...] Problem Status W/U Status Risk Notes Problem 916533459 History of adenomatous polyp of colon (Z86.010) Active confirmed Problem 621547513 Colon cancer screening (Z12.11) Active confirmed Problem 626877277351676 Preprocedural examination (Z01.818) Active confirmed Problem 537753477 Gastroesophageal reflux disease without esophagitis (K21.9) Active confirmed Vital Signs Temperature 97.7 degrees Fahrenheit 04/17/20 23 Blood pressure systolic 00 mm Hg 04/17/20 23 Blood pressure diastolic 00 mm Hg 023 Height 67.75 in 04/17/2023 Weight 262 lbs 04/17/2023 BMI 40.13 kg/m2 04/17/2023 Encounters Encounter Location Date Provider Diagnosis [facility] [address] [place] [address] 04/17/2023 Tashi Currie Preprocedural examin ation Z01.818 [...] KIAN MAHMOOD ODOB: [birth year] (52 yo M)Acc No.[id number]:04/17/2023 Progress Notes Patient:?KIAN MAHMOOD Provider:?Tashi Currie MD :1970???Age:52 Y???Sex:Male Bravo e:04/17/2023 Address:[address] [place], [place] [id number] Pcp:Fox Ku MD Subjective: * Chief Complaints: [...] * Surgical History:?Mass remov ed--Dr. Fields at [facility]-- Benign , but had XRT 2009Right inguinal [...] Procedure Codes:?3017F COLOR ECTAL CA SCREEN DOC [id number] TOBACCO NON-[id number] BP SCR NOT PRFRM REC REASON NOS * Preventive Medicine:? ??Counseling:?Care goal follow-up plan:?Above Normal BMI Follow-up?Giving encouragement to exercise,?BMI management provided?Yes.? * Follow Up:?prn * * Sign off status: Completed true * Provider:?Tashi Currie MD Date:? 023 Generated for Jocelini nini/Mariia/eTransmitting on:?07/22/2024 07:37 AM EDT History and Physical Notes * HPI (History [...]
--- OUTSIDE RECORDS SUMMARY | 2024-07-22 07:37 | XMS_ITS | Clinical Summary ---
Author Organization [facility] Address [address] [place] [address] Care Team Providers Care Ball Racker Name Role Phone Bon Arvizu MD Primary Care Provider [phone] Allergies No known active allergies Medications Ventolin [...] Only [facility] [address] [place] [address] Tashi Bonner MD [address] [address] Stage 3a chronic kidney disease (HCC); Type 2 diabetes mellitus with diabetic chronic kidney disease (HCC) 08/04/2024 1:15 PM EDT Office Visit [facility] [address] [place] [address] Tashi Bonner MD [address] [address] Health Maintenance Due Date Last [...] Influenza Vaccine (#1) [address] [place] [address] [address] [place] [address] Care Teams Ball Racker Relationship Specialty Start Date End Date Bon Arvizu MD [address] [place] [id number] PCP - General Internal Medicine 06/04/22
--- OUTSIDE RECORDS SUMMARY | 2024-07-22 07:37 | XMS_ITS | Clinical Summary ---
Author Organization [facility] Address [address] [place] [address] Care Team Providers Care Customer Records Division Supervisor Name Role Phone Unavailable Primary Care Provider [...]
--- OUTSIDE RECORDS SUMMARY | 2024-07-22 07:37 | XMS_ITS | Encounter Summary ---
Author Organization [facility] Address [address] [place] [address] Care Team Providers Care Humanities Teacher Name Role Phone Unavailable Primary Care Provider Unavailabl e Encounter Details Date Type Department Care Team (Late st Contact Info) Description 12/23/2021 Scanned Document [facility] [address] [place] [phone] Gastroenterology, Scan Social History Tobacco Use Types [...]
--- OUTSIDE RECORDS SUMMARY | 2024-07-22 07:37 | XMS_ITS ---
Author Name [facility] Organization Unknown Care Team Organization Name Specialty Phone Email Start Date End [facility]
--- OUTSIDE RECORDS SUMMARY | 2024-07-22 07:37 | XMS_ITS | Patient Health Record ---
Author Organization [facility] Address [address] [place] [address] Care Team Providers Care Blacktop Spreader Name Role Phone Fox Ku MD Primary Care Provider Briana Tashi Erwin Unavailable [phone] Alisha Moore Unavailable Unavailable Allergies No Known [...] Problem Status W/U Status Risk Notes Problem 246130444 Colon cancer screening (Z12.11) Active confirmed Problem 527967854 History of adenomatous polyp of colon (Z86.010) Active confirmed Problem Diverticular disease of colon (342070972) Diverticulosis of large intestine without perforation or abscess without bleeding (K57.30) Active confirmed Problem 440038893 Gastroesophageal reflux disease without esophagitis (K21.9) Active confirmed Problem 310970356755326 Preprocedural examination (Z01.818) Active confirmed Problem 56820540 Iron deficiency anemia, unspecified iron deficiency anemia type (D50.9) Active confirmed Plan Of Treatment Pending Test Test Name Order Date Pathology 07/13/2023 Future Test Test Name Order Date UPPER GI ENDOSCOPY 06/23/2017 COLONOSCOPY 06/23/2017 COLONOSCOPY 04/17/2023 Insurance Providers Payer Name Payer Address Payer Phone Subscriber Number Group Number Insured Name Patient Relationship to Insured Coverage Start Date Coverage End Date [facility] [address] [address] [place], [place] [id number] KIAN MAHMOOD Self - patient is the insured MEDICAID OF [facility] [address] [place] [address] [phone] [id number] KIAN MAHMOOD Self - patient is the insured Medical (General) History Medical History History ICD Code IDDM Hypertension Heart murmur-Dr. Collins Asthma/COPD- Dr. Correa Pulmonary embolus in 2016--on Coumadin-- sees Dr. Moore Lung mass--surgery in 2008 a s below, with XRT; biopsied in approx 2015 and benign--followed by Dr. Tino Dimas [place],CVA,renal disease GERD--upper endoscopy August of 2017 with [...] Surgery Date(Month/Year) Mass removed--Dr. Fields at [facility]-- Be nign , but had XRT 2008 Right inguinal hernia 1990 Ear tubes/Adenoids
--- OUTSIDE RECORDS SUMMARY | 2024-07-22 07:37 | XMS_ITS ---
Author Organization [facility] Address [address] [place] [address] Care Team Providers Care Curriculum Advisory Teacher Name Role Phone Fox Ku MD Primary Care Provider Tashi Bruno [phone] Alisha Moore Unavailable Unavailable REASON FOR VISIT [...] Provider Diagnosis [facility] [address] [place] [address] 04/17/2023 Tashi Currie Plan Of Treatment Medication [...] KIAN MAHMOOD ODOB: [birth year] (52 yo M)Acc No.[id number]:04/17/2023 Patient:?KIAN MAHMOOD O :1970???Age:52 Y???Sex:Male Address:[address] [place] [address] * Refills? Start MiraLax (colon prep) Powder, [...] true * Date:? Generated for Chilo terrazas/Mariia/Kavyaitting on:?07/22/2024 07:37 AM EDT
--- OUTSIDE RECORDS SUMMARY | 2024-07-22 07:38 | XMS_ITS ---
Author Organization [facility] Address [address] [place] [address] Care Team Providers Care Silk Spooler Name Role Phone Fox Ku MD Primary Care Provider Tashi Bruno [phone] Alisha Moore Unavailable Unavailable REASON FOR VISIT screening,hx polyps Problems Problem Type SNOMED Code ICD Code Onset Dates Problem Status W/U Status Risk Notes Problem Diverticular disease of colon (472902155) Diverticulosis of large intestine without perforation or abscess without bleeding (K57.30) Active confirmed Encounters Encounter Location Date Provider Diagnosis [facility] Outpatient [address] [place] [phone] 07/13/2023 Tashi Currie Encounter for scre ening [...] KIAN MAHMOOD ODOB: [birth year] (53 yo M)Acc No.[id number]:07/13/2023 COLON WITH MAC Patient:?KIAN MAHMOOD Provider:?Tashi Currie MD :1970???Age:52 Y???Sex:Male Bravo e:07/13/2023 Address:[address] [place] [address] , [place]rey [place]ett [facility] Pcp:Fox Ku MD Subjective: * Chief Complaints: * ???1. Screening,hx polyps. * Medical History:? Objective: * Vitals:? Assessment: * Assessment: 1.?Encounter for screening c olonoscopy - Z12.11 (Primary)???2.?Colon polyps - K63.5???3.?Diverticulosis of large intestine without perforation or abscess without bleeding - K57.30???4.?Other hemorrhoids - K64.8??? Plan: * Treatment: * Procedure Codes:?81674 COLON OSCOPY AND BIOPSY, Modifiers: 33 * * The named appointment provid er may or may not be the originator of this progress note, and it is not deemed complete until electronically signed by the appointment provider. Sign off status: Pending * Provider:?Tashi Currie MD Date:? 024 Generated for Chilo terrazas/Mariia/eTransmitting on:?07/22/2024 07:37 AM EDT
[2024-07-22 08:09] VITALS: BP 110/64; PULSE 60; RESP 18; TEMP 37; O2SAT 94; BMI 35.5
--- NOTE | 2024-07-22 08:09 | A.OFFPC_ITS ---
Vital Signs 07/22/24 08:09 Height 5 ft 8 in Weight 233 lb 6.4 oz BMI 35.5 BP 110/64 Blood Pressure Location Lt brachial Position Sitting Respiration 18 Pulse 60 Pulse Source Pulse Oximeter Temp 98.6 F Temp Source Oral Pulse Oximetry (%) 94 Oxygen Delivery Method Room Air Intake Visit Reasons: follow up Global President Required: No Accompanied by: Self / Same As Patient Allergies pollen extracts [POLLEN] Allergy (Mild, Verified 07/22/24 08:28) RUNNY NOSE cat dander [CATS] Allergy (Unknown, Verified 07/22/24 08:28) UNKNOWN dog dander [DOGS] Allergy (Unknown, Verified 07/22/24 08:28) UNKNOWN mold [MOLD] Allergy (Unknown, Verified 07/22/24 08:28) UNKNOWN Medication List - Last Reconciled 07/22/24 by NAEL Dietrich albuterol sulfate 90 mcg/actuation (Ventolin HFA) 2 puffs inhalation Q4-6H PRN 30 days aripiprazole (Abilify) 5 mg PO DAILY atenolol 25 mg PO DAILY atorvastatin (Lipitor) 40 mg PO DAILY benztropine 0.5 mg PO BID 30 days bupropion HCl XL (Wellbutrin XL) 150 mg PO QAM cholecalciferol (vitamin D3) 50 mcg PO DAILY 90 days docusate sodium 100 mg PO BEDTIME escitalopram oxalate mg PO DAILY ferrous sulfate 325 mg PO DAILY haloperidol 10 mg PO BEDTIME hydroxyzine HCl 25 mg PO BID insulin glargine (Lantus Solostar U-100 Insulin) 20 units (0.2 mL) subcut QPM meclizine 25 mg PO TID PRN melatonin 6 mg PO BEDTIME metformin 1,000 mg PO BID 90 days omeprazole 40 mg PO DAILY tamsulosin (Flomax) 0.4 mg PO BEDTIME thiamine HCl (vitamin B1) 100 mg PO BID trazodone 50 mg PO BEDTIME PRN Tobacco use date assessed: 07/22/24 Dental Screening Dental Screen Date: 07/22/24 Did you have a dental visit in the last 12 months?: No Did you have a dental problem in the last 6 months where you did not have access to dental care?: No HPI follow up HPI Details Patient is a 53-year-old male presenting for follow up appointment for chronic conditions Reports that he went to the hospital last week for sob and was told he had pna Reports taking his last abt on Thursday and his feeling back to his baseline The patient also wanted to know if dizziness is a side effect of low blood sugar Reports that he has been feeling dizzy on and off Reports that he does not feel dizzy now Report that he has burning with urination on and off throughout the day but not all the time Reports that this has been going on for 3 weeks Reports that he told them at the hospital, they took a urine sample and told him there were no infections and left him hanging Discussed with patient that he is probably eating something irritating that is causing him on and off irritation Discussed the type of foods that could cause irritation to the urethra and the patient thinks it could probably be his caffeine intake and he is going to cut back on this He denies chest pain, heart palpitation Denies any change in bowel habits or stomach pain PFSH Medical History Psychosis Chest pain Suicidal ideation Recurrent major depression Allergic rhinitis Insomnia Palpitations Vitamin D deficiency Chronic kidney disease, stage III (moderate) GERD without esophagitis Restrictive lung disease Obesity (BMI 30-39.9) Benign essential hypertension Pure hypercholesterolemia Diabetes mellitus Pulmonary emboli Chondrosarcoma Hyperlipidemia Chronic restrictive lung disease COPD (chronic obstructive pulmonary disease) Asthma Surgical History History of esophagogastroduodenoscopy (EGD) H/O colonoscopy History of inguinal hernia repair Hx of exploratory thoracotomy H/O tooth extraction Family History Father Hypertension Kidney failure, acute Mother Lung cancer Family/Other Diabetes Social History Household Members: None Housing: Apartment Do you presently have visiting nurse or other home services: No Alcohol intake: never Patient Tobacco Use Status: Never used Tobacco e-Cigarette/Vaping Use: Never Used Second Hand Smoke Exposure: Yes service: No Current occupational status: unemployed Sexual orientation: Straight/Heterosexual Cognitive needs: No Hearing needs: No Vision needs: Yes (Glasses) Questionnaire PHQ-9 Over the last 2 weeks, how often have you been bothered by any of the following problems? 1. Little interest or pleasure in doing things: not at all 2. Feeling down, depressed, or hopeless: not at all 3. Trouble falling or staying asleep, or sleeping too much: not at all 4. Feeling tired or having little energy: not at all 5. Poor appetite or overeating: not at all 6. Feeling bad about yourself - or that you are a failure or have let yourself or your family down: not at all 7. Trouble concentrating on things, such as reading the newspaper or watching television: not at all 8. Moving or speaking so slowly that other people could have noticed. Or the opposite - being so fidgety or restless that you have been moving around a lot more than usual: not at all 9. Thoughts that you would be better off or of hurting yourself in some way: not at all Total score: 0 Depression Screening Interpretation: Negative Depression Screening Done: Yes 54338 - PHQ-9 Billing: Yes Source: Developed by Drs. aTshi Michael, Laura Archer, Ambrosio Xie and colleagues, with an educational maría elena from [employer]. Thrive Questionnaire Date Thrive assessed: 06/13/24 I am a: Patient What is your living situation today?: I have a steady place to live Within the past 12 months, did the food you bought not last and you didn't have the money to get more?: Never true Within the past 12 months, did you worry whether your food would run out before you got money to buy more?: Never true Do you have trouble paying for medicines?: No Do you have trouble getting transportation to medical appointments?: No Do you have trouble paying your heating and electricity bill?: No Do you have trouble taking care of your child, family member or friend?: No Do you have trouble with day-to-day activities such as bathing, preparing meals, shopping, managing finances, etc.?: No Are you currently unemployed and looking for a job?: Yes Are you interested in more education?: No Please select the resources that you would like help with: None Currently or been in a relationship where the following occur: No concerns reported THRIVE Score: 0 AUDIT C Alcohol Use Questionnaire (AUDIT-C) 1. How often do you have a drink containing alcohol?: Never 3. How often do you have six or more drinks on one occasion?: Never Total Score: 0 Score Reviewed/Action Taken: Yes CATIE-7 AMB Questionnaire CATIE-7 Date CATIE - 7 assessed: 07/22/24 Feeling nervous, anxious, or on edge: 0 = Not at all Not being able to stop or control worryin = Not at all Worrying too much about different things: 0 = Not at all Trouble relaxin = Not at all Being so restless that it is hard to sit still: 0 = Not at all Becoming easily annoyed or irritable: 0 = Not at all Feeling afraid as if something awful might happen: 0 = Not at all Total CATIE-7 score (0-4 normal; 5-9 mild; 10-14 moderate; 15-21 severe): 0 Source: Developed by Drs. Tashi Michael, Laura Archer, Ambrosio Xie and colleagues, with an educational maría elena from [employer]. CATIE-7 Assessment Billing CATIE-7 Assessment Tool: CATIE-7 Assessment 27450 Review of Systems Const Denies headache(s) Eyes Denies loss of vision ENT Denies vertigo, Reports dizziness (Reports on and off), Denies headache(s) and Denies sore throat Card Denies chest pain, Denies leg edema, Denies lightheadedness and Reports dyspnea on exertion (On and off) Resp Denies cough, Denies hemoptysis, Reports dyspnea on exertion (On and off) and Denies wheezing GI Denies abdominal pain, Denies melena, Denies constipation, Denies diarrhea and Denies vomiting Denies hematuria, Reports dysuria (Reports on and off slight burning with urination), Denies urinary frequency and Denies urinary urgency Musc Reports arthralgias (Bilateral shoulders hurts on and off), Denies joint swelling, Denies numbness and Denies tingling Neuro Denies Abnormal speech present, Denies behavioral changes, Denies vertigo, Reports dizziness (Reports on and off), Denies headache(s), Denies loss of vision, Denies memory loss, Denies numbness and Denies tingling Psych Denies anxiety, Denies behavioral changes, Denies depression, Denies memory loss and Denies panic attacks Edu/Lymph Denies easy bleeding and Denies easy bruising Aller/Immun Denies wheezing Physical exam (Primary Care) Vital Signs: Last Vital Signs Temp 98.6 F 07/22/24 08:09 Pulse 60 07/22/24 08:09 Resp 18 07/22/24 08:09 BP 110/64 07/22/24 08:09 Pulse Ox 94 07/22/24 08:09 Oxygen Delivery Method Room Air 07/22/24 08:09 BMI result Body Mass Index 35.5 Tobacco/Smoking Status: Tobacco use Status Tobacco use date assessed 07/22/24 07/22/24 08:21 Patient Tobacco Use Status Never used Tobacco 07/22/24 08:21 e-Cigarette/Vaping Use Never Used 07/22/24 08:21 PHQ-9: PHQ-9 Score PHQ-9: Total score 0 07/22/24 08:57 Depression Screening Interpretation: Negative Thrive Assessment: Date of Thrive Assessment Date Thrive assessed 06/13/24 07/22/24 08:21 Currently or been in a relationship where the following occur: No concerns reported Const General: healthy appearing, no acute distress, alert and awake Nutritional Appearance: well nourished Orientation/consciousness: oriented to person, oriented to place and oriented to time HENMT Ears: TM's normal bilaterally General nose exam: Normal nasal mucous membranes and turbinates present Eyes Conjunctivae: conjunctivae normal Sclerae: sclerae normal Pupils: Equal, round and reactive pupils present Neck Neck: Yes no lymphadenopathy and Yes no JVD Thyroid: Thyroid normal Carotids: no bruits Resp Effort & Inspection: normal respiratory effort and not tachypneic Auscultation: no crackles, no rales, no rhonchi and no wheezes Cardio Rate: regular rate Rhythm: regular rhythm Heart sounds: no murmurs and normal S1 and S2 GI Palpation (GI): Soft to palpation, nontender, no hepatomegaly and no splenomegaly Auscultation: normal bowel sounds General: Yes no CVA tenderness Back/Spine/Pelvis Back: no CVA tenderness Skin General skin exam: no rashes or lesions noted and dry skin Neuro General: oriented to person, oriented to place and oriented to time Cranial nerves: Yes Equal, round and reactive pupils present Speech: No Abnormal speech present Gait exam (Neuro): Normal gait present Motor exam (neuro): no tremor noted Extrem Right upper extremity: full ROM and shoulder/upper arm Details: normal ROM; no tenderness and no swelling Left upper extremity: full ROM and shoulder/upper arm Details: normal ROM; no tenderness and no swelling Right lower extremity: full ROM; no edema Left lower extremity: full ROM; no edema Psych Mental Status: mental status grossly normal Speech and movement: Normal speech and movement present Affect: normal affect Attitude: cooperative Thought process: Normal thought process present Results Reviewed Results Reviewed: Laboratory Tests 07/16/24 20:15 WBC 6.2 RBC 4.17 L Hgb 12.1 L Hct 38.0 L MCV 91.1 MCH 29.0 Plt Count 225 Sodium 140 Potassium 3.9 Chloride 108 Carbon Dioxide 26 BUN 15 Creatinine 1.37 Estim Creat Clear Calc 73.4 Estimated GFR 54 Random Glucose 64 Calcium 8.8 Magnesium 1.7 Total Bilirubin 0.5 AST 17 ALT 17 Alkaline Phosphatase 78 Total Protein 6.5 Albumin 3.6 Lipase 30 Urine Color Yellow Urine Appearance Clear Urine pH >= 9.0 Ur Specific Industry 1.010 Urine Protein Negative Urine Glucose (UA) Negative Urine Ketones Negative Urine Blood Negative Urine Nitrite Negative Ur Leukocyte Esterase Negative Coding Level of Care Code Est Pt Level 4 (05518) Diagnoses Chronic obstructive pulmonary disease, unspecified COPD type J44.9 COPD type: unspecified COPD Vitamin D deficiency E55.9 Stage 3a chronic kidney disease N18.31 Chronic kidney disease stage 3 subtype: stage 3a (GFR 45-59) GERD without esophagitis K21.9 Obesity (BMI 30-39.9) E66.9 Type 2 diabetes mellitus with hyperglycemia, without long-term current use of insulin E11.65 Diabetes mellitus type: type 2 Diabetes mellitus half-way insulin use: without half-way use Diabetes mellitus complication status: with hyperglycemia Hyperlipidemia, unspecified hyperlipidemia type E78.5 Hyperlipidemia type: unspecified Chronic restrictive lung disease J98.4 Asthma, unspecified asthma severity, unspecified whether complicated, unsp ecified whether persistent J45.909 Asthma persistence: unspecified Asthma complication type: unspecified Asthma severity: unspecified severity Allergic rhinitis, unspecified seasonality, unspecified trigger J30.9 Allergic rhinitis trigger: unspecified Allergic rhinitis seasonality: unspecified Insomnia, unspecified type G47.00 Insomnia type: unspecified Dizziness R42 Anxiety F41.9 Benign essential hypertension I10 Elevated TSH R79.89 Urinary frequency R35.0 Additional Codes CATIE-7 Assessment Billing - CATIE-7 Assessment Tool: CATIE-7 Assessment 13733 ([id number]) PHQ-9 - 42859 - PHQ-9 Billing: Yes ([id number]) Time Spent (min) 43 Assessment & Plan Assessment & Plan (1) COPD (chronic obstructive pulmonary disease): Code(s): J44.9 - Chronic obstructive pulmonary disease, unspecified Category: Medical Qualifiers: COPD type: unspecified COPD Qualified Code(s): J44.9 - Chronic obstructive pulmonary disease, unspecified Plan: Lifestyle modifications like smoking cessation. Wear a mask when around irritants, fumes, or particulate matter (e.g., painting, lawn mowing). Increase humidification at home, especially in the winter. Annual flu shots and the pneumonia shot can mitigate exacerbation. Increase fluids if not contraindicated because of heart failure. Continue albuterol sulfate 90 mcg/actuation 2 puffs inhalation Q 4-6 hours p.r.n., Follow up with pulmonology as scheduled (2) Vitamin D deficiency: Code(s): E55.9 - Vitamin D deficiency, unspecified Category: Medical Plan: Continue Vitamin D3 2000 units QD (3) Chronic kidney disease, stage III (moderate): Code(s): N18.30 - Chronic kidney disease, stage 3 unspecified Category: Medical Qualifiers: Chronic kidney disease stage 3 subtype: stage 3a (GFR 45-59) Qualified Code(s): N18.31 - Chronic kidney disease, stage 3a Plan: His serum creatinine and GFR have remained steady and are mostly unchanged on his recent labs Renal US previously done came back normal Will continue to monitor his renal function regularly/closely Follow up with nephrology as scheduled (4) GERD without esophagitis: Code(s): K21.9 - Gastro-esophageal reflux disease without esophagitis Category: Medical Plan: Do not eat meals or drink carbonated beverages within 3 hr of bedtime Decrease the amount of fried, fatty, and spicy foods to decrease gastric acid production Raise the head of the bed using 4 to 6-inch blocks, especially if nocturnal symptoms are present Lose weight if indicated; avoid tight-fitting clothing, especially around the waist Avoid foods that relax the Lower esophageal sphincter (chocolate, peppermint, high-fat foods etc.,) Continue omeprazole 40 mg daily (5) Obesity (BMI 30-39.9): Comment: He remains grossly overweight. Denies symptoms of sleep apnea. Trying to lose weight on his own with diet and exercise. DID LOSE ABOUT 10 LB IN THE LAST 6 MONTHS. 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 Patient reports that she is also not checking his blood sugar at home. We will decrease Lantus to 15 units q.day and continue metformin 1000 mg b.i.d. Supplies ordered for the patient to check blood sugar at home-reports that he used to do this in the past Reinforced on low sugar/carbohydrate diet and activity as tolerated (7) Hyperlipidemia: Comment: 20 min reviewinng chart evaluating patient and documenting Code(s): E78.5 - Hyperlipidemia, unspecified Category: Medical Qualifiers: Hyperlipidemia type: unspecified Qualified Code(s): E78.5 - Hyperlipidemia, unspecified Plan: No recent lipid panel Reinforced a low-calorie diet and activity as tolerated Continue atorvastatin 40 mg daily (8) Chronic restrictive lung disease: Comment: CHRONIC RESTRICTIVE LUNG DISEASE SECONDARY TO, PAST 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 GROSS OBESITY ALSO CONTRIBUTES TO RESTRICTIVE DISORDER. Chest x-ray is ordered . Just for a baseline. Code(s): J98.4 - Other disorders of lung Category: Medical Plan: Continue Albuterol HFA 2 inhalations every 6 hours PRN He used to be on Trelegy but his insurance declined to continue covering his Rx PFTs done last year showed only findings of mild COPD Follow up with pulmonary as scheduled (9) Asthma: Comment: See under Asthma /COPD Code(s): J45.909 - Unspecified asthma, uncomplicated Category: Medical Qualifiers: Asthma persistence: unspecified Asthma complication type: unspecified Asthma severity: unspecified severity Qualified Code(s): J45.909 - Unspecified asthma, uncomplicated Plan: Same as above (10) Allergic rhinitis: Comment: Jasbir has longstanding intermittent allergic rhinitis. This is secondary to nonspecific triggers, especially change in the climate , temperature or humidity. Code(s): J30.9 - Allergic rhinitis, unspecified Category: Medical Qualifiers: Allergic rhinitis trigger: unspecified Allergic rhinitis seasonality: unspecified Qualified Code(s): J30.9 - Allergic rhinitis, unspecified Plan: Limit exposure to allergens Air purifiers and dust filters Air conditioner in house, especially where sleeping (11) Insomnia: Code(s): G47.00 - Insomnia, unspecified Category: Medical Qualifiers: Insomnia type: unspecified Qualified Code(s): G47.00 - Insomnia, unspecified Plan: Sleep hygiene: Exercise regularly, but not within 4 hour of bedtime. Limit fluid intake and avoid large meals in the evening hours. Limit overall caffeine, tobacco, and alcohol intake; no night cap. Maintain a regular sleep- wake cycle without naps in the daytime. Lie down to sleep only when feeling sleepy; leave the bed if unable to fall asleep within 20 minutes; stay in bed for only the hours actually sleeping(but not less than 5 hour in 24 hours). Continue trazodone 50 mg at bedtime p.r.n., melatonin 6 mg p.o. at bedtime (12) Dizziness: Code(s): R42 - Dizziness and giddiness Category: Medical Plan: Patient reports that he has been feeling dizziness on and off and is wondering if low blood sugar could be causing this The patient random glucose was 64; reports that he is not checking his blood sugar at home We will decrease his Lantus to 15 units; discussed with patient about snacks that could increase his blood sugar if needs be Ordered surprised with the patient and encouraged him to start checking his blood sugar at home. Reinforced checking his blood sugar whenever he feels dizzy. (13) Anxiety: Code(s): F41.9 - Anxiety disorder, unspecified Category: Medical Plan: Denies SI/HI Continue Escitalopram 20 mg QD, Bupropion XL 150 mg Q AM and hydroxyzine HCI 25 mg b.i.d. Follow up with Psychiatry as scheduled (14) Benign essential hypertension: Code(s): I10 - Essential (primary) hypertension Category: Medical Plan: Reinforced low sodium diet - goal is systolic BP of 120 mm or less Continue Atenolol 25 mg QD (15) Elevated TSH: Code(s): R79.89 - Other specified abnormal findings of blood chemistry Category: Medical Plan: His serum TSH and free T4 levels were both normal on his previous labs; patient was unable to complete as scheduled labs Will continue to monitor his TFTs regularly (16) Urinary frequency: Code(s): R35.0 - Frequency of micturition Category: Medical Plan: Patient continued to feel much better since being on tamsulosin. Was suspected that these symptoms were due to his BPH Serum PSA level was normal when last checked Continue Tamsulosin 0.4 mg Q HS To consider referral to urology if his urinary frequency or symptoms continue to persist or progress Plan Follow up in 3 months Orders: Orders Comprehensive [place]. 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, unspecified, E55.9 - Vitamin D deficiency, unspecified, N18.31 - Chronic kidney disease, stage 3a, K21.9 - Gastro-esophageal reflux disease without esophagitis, E66.9 - Obesity, unspecified, E11.65 - Type 2 diabetes mellitus with hyperglycemia, E78.00 - Pure hypercholesterolemia, unspecified, E78.5 - Hyperlipidemia, unspecified, J45.909 - Unspecified asthma, uncomplicated Lipid Panel 3 Months R42 - Dizziness and giddiness, R79.89 - Other specified abnormal findings of blood chemistry, F41.9 - Anxiety disorder, unspecified, J44.9 - Chronic obstructive pulmonary disease, unspecified, 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, unspecified, E55.9 - Vitamin D defic iency, unspecified, N18.31 - Chronic kidney disease, stage 3a, K21.9 - Gastro- esophageal reflux disease without esophagitis, E66.9 - Obesity, unspecified, E11.65 - Type 2 diabetes mellitus with hyperglycemia, E78.00 - Pure hypercholesterolemia, unspecified, E78.5 - Hyperlipidemia, unspecified, J45.909 - Unspecified asthma, uncomplicated TSH reflex Free T4 3 Months R42 - Dizziness and giddiness, R79.89 - Other specified abnormal findings of blood chemistry, F41.9 - Anxiety disorder, unspecified, J44.9 - Chronic obstructive pulmonary disease, unspecified, 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, unspecified, E55.9 - Vitamin D deficiency, unspecified, N18.31 - Chronic kidney disease, stage 3a, K21.9 - Gastro-esophageal reflux disease without esophagitis, E66.9 - Obesity, unspecified, E11.65 - Type 2 diabetes mellitus with hyperglycemia, E78.00 - Pure hypercholesterolemia, unspecified, E78.5 - Hyperlipidemia, unspecified, J45.909 - Unspecified asthma, uncomplicated UA CC w/rflx Micro + Cult 3 Months R42 - Dizziness and giddiness, R79.89 - Other specified abnormal findings of blood chemistry, F41.9 - Anxiety disorder, unspecified, J44.9 - Chronic obstructive pulmonary disease, unspecified, 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, unspecified, E55.9 - Vitamin D deficiency, unspecified, N18.31 - Chronic kidney disease, stage 3a, K21.9 - Gastro-esophageal reflux disease without esophagitis, E66.9 - Obesity, unspecified, E11.65 - Type 2 diabetes mellitus with hyperglycemia, E78.00 - Pure hypercholesterolemia, unspecified, E78.5 - Hyperlipidemia, unspecified, J45.909 - Unspecified asthma, uncomplicated Vitamin D 25-OH Total 3 Months R42 - Dizziness and giddiness, R79.89 - Other specified abnormal findings of blood chemistry, F41.9 - Anxiety disorder, unspecified, J44.9 - Chronic obstructive pulmonary disease, unspecified, 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, unspecified, E55.9 - Vitamin D deficiency, unspecified, N18.31 - Chronic kidney disease, stage 3a, K21.9 - Gastro-esophageal reflux disease without esophagitis, E66.9 - Obesity, unspecified, E11.65 - Type 2 diabetes mellitus with hyperglycemia, E78.00 - Pure hypercholesterolemia, unspecified, E78.5 - Hyperlipidemia, unspecified, J45.909 - Unspecified asthma, uncomplicated IRON PROFILE 3 Months R42 - Dizziness and giddiness, R79.89 - Other specified abnormal findings of blood chemistry, F41.9 - Anxiety disorder, unspecified, J44.9 - Chronic obstructive pulmonary disease, unspecified, 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, unspecified, E55.9 - Vitamin D deficiency, unspecified, N18.31 - Chronic kidney disease, stage 3a, K21.9 - Gastro-esophageal reflux disease without esophagitis, E66.9 - Obesity, unspecified, E11.65 - Type 2 diabetes mellitus with hyperglycemia, E78.00 - Pure hypercholesterolemia, unspecified, E78.5 - Hyperlipidemia, unspecified, J45.909 - Unspecified asthma, uncomplicated Complete Blood Count Auto Diff 3 Months R42 - Dizziness and giddiness, R79.89 - Other specified abnormal findings of blood chemistry, F41.9 - Anxiety disorder, unspecified, J44.9 - Chronic obstructive pulmonary disease, unspecified, 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, unspecified, E55.9 - Vitamin D deficiency, unspecified, N18.31 - Chronic kidney disease, stage 3a, K21.9 - Gastro-esophageal reflux disease without esophagitis, E66.9 - Obesity, unspecified, E11.65 - Type 2 diabetes mellitus with hyperglycemia, E78.00 - Pure hypercholesterolemia, unspecified, E78.5 - Hyperlipidemia, unspecified, J45.909 - Unspecified asthma, uncomplicated Uric Acid 3 Months R42 - Dizziness and giddiness, R79.89 - Other specified abnormal findings of blood chemistry, F41.9 - Anxiety disorder, unspecified, J44.9 - Chronic obstructive pulmonary disease, unspecified, 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, unspecified, E55.9 - Vitamin D deficiency, unspecified, N18.31 - Chronic kidney disease, stage 3a, K21.9 - Gastro-esophageal reflux disease without esophagitis, E66.9 - Obesity, unspecified, E11.65 - Type 2 diabetes mellitus with hyperglycemia, E78.00 - Pure hypercholesterolemia, unspecified, E78.5 - Hyperlipidemia, unspecified, J45.909 - Unspecified asthma, uncomplicated Medications: New lancets (FreeStyle Lancets) As directed 100 ea 0RF blood sugar diagnostic (FreeStyle Lite Strips) As directed 10 ea 0RF lancets (FreeStyle Lancets) As directed check blood sugar bid 100 ea 3RF E11.65 - Type 2 diabetes mellitus with hyperglycemia blood-glucose meter (FreeStyle Flash System kit) As directed check blood sugar BID 1 ea 0RF E11.65 - Type 2 diabetes mellitus with hyperglycemia lancets (FreeStyle Lancets) As directed CHECK BLOOD SUGAR BID 100 ea 3RF E11.65 - Type 2 diabetes mellitus with hyperglycemia Changed From insulin glargine 20 units (0.2 mL) subcut QPM 3 mL 0RF To insulin glargine (Lantus Solostar U-100 Insulin) 15 units (0.15 mL) subcut QPM 3 mL 0RF
== END 2024-07-22 08:59 | disposition home or self-care (01) ==
LOC: HO.HMCH 07:36
PROVIDERS: PCP Internal Medicine
DX: I12.9 Hypertensive chronic kidney disease with stage 1 through stage 4 chronic kidney disease, or unspecified chronic kidney disease (principal); J44.9 Chronic obstructive pulmonary disease, unspecified; N18.31 Chronic kidney disease, stage 3a; E11.65 Type 2 diabetes mellitus with hyperglycemia; E55.9 Vitamin D deficiency, unspecified; K21.9 Gastro-esophageal reflux disease without esophagitis; E66.9 Obesity, unspecified; E78.5 Hyperlipidemia, unspecified; J98.4 Other disorders of lung; J45.909 Unspecified asthma, uncomplicated; J30.9 Allergic rhinitis, unspecified; G47.00 Insomnia, unspecified

== ENCOUNTER → 2024-07-22 07:35 | Outpatient (BNVA) | payer OTHER, SELFPAY | PROVIDERS: PCP Internal Medicine | DX: J44.9 Chronic obstructive pulmonary disease, unspecified (principal); E55.9 Vitamin D deficiency, unspecified; I12.9 Hypertensive chronic kidney disease with stage 1 through stage 4 chronic kidney disease, or unspecified chronic kidney disease; E11.22 Type 2 diabetes mellitus with diabetic chronic kidney disease; N18.31 Chronic kidney disease, stage 3a; K21.9 Gastro-esophageal reflux disease without esophagitis; E66.9 Obesity, unspecified; E11.65 Type 2 diabetes mellitus with hyperglycemia; E78.5 Hyperlipidemia, unspecified; J98.4 Other disorders of lung; J45.909 Unspecified asthma, uncomplicated; G47.00 Insomnia, unspecified; R42 Dizziness and giddiness; F41.9 Anxiety disorder, unspecified; R79.89 Other specified abnormal findings of blood chemistry; R35.0 Frequency of micturition | CPT/HCPCS: 96127; 99212 ==

== ENCOUNTER → 2024-07-27 15:05 | Outpatient (BNVA) | payer OTHER, SELFPAY | PROVIDERS: PCP Internal Medicine ==

== ENCOUNTER → 2024-08-10 13:44 | Outpatient (BNVA) | payer OTHER, SELFPAY | PROVIDERS: PCP Internal Medicine ==

== ENCOUNTER 2024-08-16 12:09 | Emergency (ER) | payer OTHER, SELFPAY ==
--- NOTE | ~2024-08-16 | XR_ITS ---
EXAMINATION: XR CHEST 2 VIEWS HISTORY: pain COMPARISON: Comparison is made with the prior examination dated 07/16/2024. FINDINGS: PA and lateral views of the chest are submitted. Again seen is elevation of the left hemidiaphragm with adjacent scarring. The lungs are otherwise clear. There is no pleural effusion, pneumothorax, or pulmonary vascular congestion. The heart is normal in size. There is degenerative disc disease of the spine. XR/XR chest 2V IMPRESSION: No acute cardiopulmonary abnormality. Electronically signed by: Tashi Mason MD 08/16/2024 12:58 PM EDT
--- NOTE | 2024-08-16 12:13 | ECG_ITS ---
Test Reason : HEART RACING Blood Pressure : */* mmHG Vent. Rate : 64 BPM Atrial Rate : 64 BPM P-R Int : 136 ms QRS Dur : 98 ms QT Int : 444 ms P-R-T Axes : 31 5 27 degrees QTcB Int : 458 ms Poor data quality Normal sinus rhythm Minimal voltage criteria for LVH, may be normal variant ( R in aVL ) Abnormal ECG When compared with ECG of 16-Jul-2024 15:15, Minimal criteria for Anterior infarct are now Present Referred By: Generic ED Physician Electronically Signed By: Low Machado
[2024-08-16 12:18] VITALS: BP 169/76; PULSE 68; RESP 19; TEMP 36.6; O2SAT 97; BMI 35.9
--- NOTE | 2024-08-16 12:18 | ED_ITS ---
HPI - General Adult General Chief complaint: Arrhythmia/Palpitations Stated complaint: Heart racing Time Seen by Provider: 08/16/24 14:35 Source: patient Mode of arrival: ambulatory Limitations: no limitations History of Present Illness ED Provider: Alma Rosa Horton PA-C HPI narrative: 53 yo male with history of depression, anxiety, mood disorder, insomnia, CKD III, HTN, HLD, DM, COPD/asthma, vertigo, who presents to the ER from home c/o SOB and palpitations that started 1.5 days ago. He states it feels like it heart is racing and it is constant as of yesterday. He reports associated SOB, no chest pain. He states he does not feel safe at home alone with the way he is feeling. He denies associated diaphoresis, lightheadedness, dizziness. He has cut back on caffeine a lot in the last 3 weeks due to having palpitations. He follows w/ Dr. Collins. He endorses stress and anxiety but states he has been taking all of his anxiety medications as prescribed. MD complaint: palpitations and SOB Onset (ago): day(s) Location: chest Radiation: non-radiation Severity: moderate Pain Consistency: constant Relieving factors: none Exacerbating factors: other (laying down) Associated symptoms: shortness of breath Treatments prior to arrival: none Related Data Home Medications ?Medication ?Instructions ?Recorded ?Confirmed ferrous sulfate 325 mg (65 mg 325 mg PO DAILY 06/17/24 07/22/24 iron) tablet melatonin 3 mg tablet 6 mg PO BEDTIME 06/17/24 07/22/24 omeprazole 40 mg capsule,delayed 40 mg PO DAILY 06/17/24 07/22/24 release escitalopram oxalate 20 mg tablet mg PO DAILY 07/22/24 07/22/24 Previous Rx's ?Medication ?Instructions ?Recorded cholecalciferol (vitamin D3) 50 50 mcg PO DAILY 90 days #90 caps 10/06/23 mcg (2,000 unit) capsule metformin 1,000 mg tablet 1,000 mg PO BID 90 days #180 tabs 01/20/24 docusate sodium 100 mg capsule 100 mg PO BEDTIME #30 caps 06/02/24 benztropine 0.5 mg tablet 0.5 mg PO BID 30 days #60 tabs 06/16/24 aripiprazole 5 mg tablet (Abilify) 5 mg PO DAILY #7 tabs 06/28/24 atenolol 25 mg tablet 25 mg PO DAILY #7 tabs 06/28/24 atorvastatin 40 mg tablet (Lipitor) 40 mg PO DAILY #7 tabs 06/28/24 bupropion HCl 150 mg 24 hr tablet, 150 mg PO QAM #7 tabs 06/28/24 extended release (Wellbutrin XL) haloperidol 10 mg tablet 10 mg PO BEDTIME #7 tabs 06/28/24 hydroxyzine HCl 25 mg tablet 25 mg PO BID #14 tabs 06/28/24 tamsulosin 0.4 mg capsule (Flomax) 0.4 mg PO BEDTIME #7 caps 06/28/24 thiamine HCl (vitamin B1) 100 mg 100 mg PO BID #14 tabs 06/28/24 tablet trazodone 50 mg tablet 50 mg PO BEDTIME PRN insomnia #7 06/28/24 tabs meclizine 25 mg tablet 25 mg PO TID PRN dizziness #20 tabs 07/01/24 albuterol sulfate 90 mcg/actuation 2 puff inhalation Q4-6H PRN 07/14/24 aerosol inhaler (Ventolin HFA) shortness of breath or wheezing 30 days #18 grams insulin glargine 100 unit/mL (3 15 unit (0.15 mL) subcut QPM #3 mL 07/22/24 mL) subcutaneous pen (Lantus Solostar U-100 Insulin) lancets 28 gauge (FreeStyle #100 ea 07/22/24 Lancets) lancets 28 gauge (FreeStyle #100 ea 07/23/24 Lancets) blood sugar diagnostic (FreeStyle #100 ea 07/25/24 Lite Strips) blood-glucose meter (FreeStyle #1 ea 07/25/24 Lite Meter kit) hydroxyzine HCl 25 mg tablet 25 mg PO TID PRN anxiety #20 tabs 08/16/24 Allergies Allergy/AdvReac Type Severity Reaction Status Date / Time pollen extracts [POLLEN] Allergy Mild RUNNY NOSE Verified 08/16/24 12:19 cat dander [CATS] Allergy Unknown UNKNOWN Verified 08/16/24 12:19 dog dander [DOGS] Allergy Unknown UNKNOWN Verified 08/16/24 12:19 mold [MOLD] Allergy Unknown UNKNOWN Verified 08/16/24 12:19 Review of Systems 2 Review of Systems: Yes all other systems are reviewed and are negative FORMERLY [facility], [facility] Past Medical History Medical History Psychosis Chest pain Suicidal ideation Recurrent major depression Allergic rhinitis Insomnia Palpitations Vitamin D deficiency Chronic kidney disease, stage III (moderate) GERD without esophagitis Restrictive lung disease Obesity (BMI 30-39.9) Benign essential hypertension Pure hypercholesterolemia Diabetes mellitus Pulmonary emboli Chondrosarcoma Hyperlipidemia Chronic restrictive lung disease COPD (chronic obstructive pulmonary disease) Asthma Surgical History History of esophagogastroduodenoscopy (EGD) H/O colonoscopy History of inguinal hernia repair Hx of exploratory thoracotomy H/O tooth extraction Family History Family History Father Hypertension Kidney failure, acute Mother Lung cancer Family/Other Diabetes Social History Social History Household Members: None Housing: Apartment Do you presently have visiting nurse or other home services: No Alcohol intake: never Patient Tobacco Use Status: Never used Tobacco e-Cigarette/Vaping Use: Never Used Second Hand Smoke Exposure: Yes Advance Directives: Yes Advance Directives Information Provided: Yes Advance Directives on File: No Do you have a plan to hurt others: No Plan service: No Current occupational status: unemployed Sexual orientation: Straight/Heterosexual Cognitive needs: No Hearing needs: No Vision needs: Yes (Glasses) Physical Exam ED Vital Signs: Vital Signs - 24 hr 08/16/24 12:18 08/16/24 14:48 Temperature 98 F 97.6 F Pulse Rate 68 60 Respiratory Rate 19 20 Blood Pressure 169/76 H 133/48 L Pulse Oximetry 97 98 Oxygen Delivery Method Room Air Room Air BMI result Body Mass Index 35.9 Appearance: Alert. Oriented X3. No acute distress. Head: normocephalic, atraumatic. Eyes: Pupils equal, round and reactive to light. ENT: Pharynx normal. No tonsillar swelling or exudate. Neck: Normal inspection. Neck supple. CVS: Normal heart rate and rhythm. Pulses normal. No murmur, normal S1, S2 Respiratory: No respiratory distress. Breath sounds diminished at bilateral bases, no whezing or rhonchi. Abdomen: Soft and nontender. +BS x4 Skin: Skin warm and dry. Normal skin color. Normal skin turgor. No rashes. Extremities: No lower extremity edema. No joint swelling. Neuro/psych: Oriented X 3. No motor deficit. No sensory deficit. CN II-XII intact. Normal speech and cognition. Course Course Course Narrative: RME, this is a rapid medical exam performed by Butch Zavaleta please refer to primary provider for complete H&P- 53-year-old male presents for evaluation shortness of breath, palpitations that started Thursday night. Patient denies any chest pain currently. plan for labs, chest x-ray as the patient was recently treated for pneumonia, EKG was performed on arrival. Medications Administered Discontinued Medications Generic Name Dose Route Start Last Admin Trade Name Freq PRN Reason Stop Dose Admin Hydroxyzine HCl 25 mg 08/16/24 14:59 08/16/24 15:13 Hydroxyzine Hcl 25 Mg Tablet PO 08/16/24 15:00 25 mg ONCE ONE Administration Medical Decision Making Medical Decision Making [facility] Narrative: 53 yo male with history of depression, anxiety, mood disorder, HTN, DM, CKD, GERD, COPD/asthma presenting with sensation of heart racing for the last day and a half. worse when laying down. does not feel safe at home due to the feeling. VSS and in NSR on the monitor. lab workup is reassuring with negative troponin, normal TSH. he c/o palpations currently. seems anxious, HR 68. lungs are clear will give dose of hydroxyzine and reassess 515 pm - after hydroxyzine patient reports improvement in his symptoms. anxiety most likely causing his symptoms. stable for d/c home with prn hydroxyzine and outpatient follow up. patient agrees with plan and all questions were answered Differential Diagnosis Differential Diagnoses: The differential diagnosis associated with the presentation includes cardiac arrhythmia, anxiety, hyerpthyroidism, dehydration, somatiform disorder, low suspicion for PE Admission/Observation Consideration of admission/observation: Escalation of care including admission/observation considered Lab Data [facility] Lab Attestation statement: I reviewed the patient's lab results. mild anemia, negative trop, normal TSH 08/16/24 12:26 08/16/24 12:26 Labs: Lab Results 08/16/24 Range/Units 12:26 WBC 5.4 (4.8-10.8) X10*3/uL RBC 4.03 L (4.60-5.80) X10*6/uL Hgb 12.0 L (14.0-18.0) g/dl Hct 37.1 L (42.0-52.0) % MCV 92.1 (80.0-98.0) fL MCH 29.8 (27.0-33.0) pg MCHC 32.3 (31.0-36.0) g/dl RDW 16.3 H (11.0-16.0) % Plt Count 222 (160-400) X10*3/uL MPV 10.8 (9.4-12.4) fL Immature Gran % (Auto) 0.2 (0.0-0.4) % Neut % (Auto) 70.9 (45-73) % Lymph % (Auto) 18.3 L (20-40) % Scurry % (Auto) 6.5 (2-11) % Eos % (Auto) 3.4 (0-4) % Baso % (Auto) 0.7 (0-2) % Lymph # (Auto) 1.0 L (1.2-4.9) X10*3/uL Scurry # (Auto) 0.4 (0.1-1.2) X10*3/uL Eos # (Auto) 0.2 (0.0-0.4) X10*3/uL Baso # (Auto) 0.0 (0.0-0.2) X10*3/uL Abs Immat Gran (auto) 0.01 (0.00-0.03) X10*3/uL Absolute Neuts (auto) 3.8 (2.0-8.3) x10*3/uL Absolute Nucleated RBC 0.000 (0.0-0.012) X10*3/uL Nucleated RBC % (auto) 0.0 (0.0-0.2) /100WBC Sodium 141 (135-145) mmol/L Potassium 4.1 (3.3-5.1) mmol/L Chloride 109 H (96-108) mmol/L Carbon Dioxide 28 (22-29) mmol/L Anion Gap 8 L (12-20) BUN 9 (9-16) mg/dL Creatinine 1.32 (0.5-1.4) mg/dL Estim Creat Clear Calc 76.7 Estimated GFR 57 Random Glucose 134 H (60-115) mg/dL Calcium 8.9 (8.4-10.2) mg/dL Magnesium 1.7 (1.6-2.6) mg/dL Total Bilirubin 0.5 (0.0-1.0) mg/dL AST 19 (5-37) U/L ALT 9 (0-40) U/L Alkaline Phosphatase 91 (39-117) U/L Troponin I High Sens 4.6 (<3.5-35.0) ng/L B-Natriuretic Peptide 81 (<100) pg/mL Total Protein 6.3 L (6.5-8.0) g/dL Albumin 3.6 (3.5-5.0) g/dL Lipase 26 (8-78) U/L TSH 1.99 (0.32-4.0) uIU/mL Influenza Type A (PCR) NEGATIVE (Negative) Influenza Type B (PCR) NEGATIVE (Negative) RSV RNA Qual (PCR) NEGATIVE (Negative) SARS-CoV-2 RNA (RT-PCR) NEGATIVE (Negative) Independent Interpretation I performed an independent interpretation of an: EKG and Plain X-Ray Interpretation: normal sinus rhythm, HR 64 bpm, no st segment elevations or depressions, cxr is clear without focal infiltrate or effusion Radiology Impression Discussion of test interpretation with radiology: I have reviewed the radiologist's reading. External Record Review External record reviewed: Outpatient record, Prior outpatient labs and Prior outpatient radiology Prescription Management I considered prescription management with: Other (anxiolytic, antiarrythmic) Chronic Conditions Patient?s care impacted by: Diabetes, Hypertension and Other (anxiety, depression) Social Determinants Patient?s care significantly limited by Social Determinants of Health including: Problems related to primary support group and Other Social Determinant of Health (lives home alone) Critical Care Time Critical Care Time Critical Care Time: No Discharge Plan Discharge Clinical Impression: Palpitations Patient Disposition: Home, Self-Care Instructions: Heart Palpitations (ED) Additional Instructions: your lab workup today was normal take the prescribed medication as needed for anxiety - this is most likely what is causing your palpitations and shortness of breath recommend following up with your doctor and your billing and quality technician rest and drink plenty of fluids continue to minimize caffeine If you develop new or worsening symptoms call 911 or come back to the ER for further evaluation. Prescriptions: New hydroxyzine HCl 25 mg tablet 25 mg PO TID PRN (Reason: anxiety) Qty: 20 0RF No Action cholecalciferol (vitamin D3) 50 mcg (2,000 unit) capsule 50 mcg PO DAILY 90 Days Qty: 90 3RF metformin 1,000 mg tablet 1,000 mg PO BID 90 Days Qty: 180 1RF albuterol sulfate [Ventolin HFA] 90 mcg/actuation HFA aerosol inhaler 2 puff inhalation Q4-6H PRN (Reason: shortness of breath or wheezing) 30 Days Qty: 18 1RF (DME) FreeStyle Lite Strips Strip See Rx Instructions miscellaneous .MEDSUPPLY Qty: 100 0RF Rx Instructions: As directed- BID (DME) blood-glucose meter [FreeStyle Lite Meter] Kit See Rx Instructions .Route Qty: 1 0RF Rx Instructions: As directed- BID docusate sodium 100 mg Capsule 100 mg PO BEDTIME Qty: 30 0RF benztropine 0.5 mg Tablet 0.5 mg PO BID 30 Days Qty: 60 0RF melatonin 3 mg tablet 6 mg PO BEDTIME ferrous sulfate 325 mg (65 mg iron) tablet 325 mg PO DAILY omeprazole 40 mg capsule,delayed release(DR/EC) 40 mg PO DAILY aripiprazole [Abilify] 5 mg tablet 5 mg PO DAILY Qty: 7 0RF atenolol 25 mg tablet 25 mg PO DAILY Qty: 7 0RF trazodone 50 mg tablet 50 mg PO BEDTIME PRN (Reason: insomnia) Qty: 7 0RF tamsulosin [Flomax] 0.4 mg capsule 0.4 mg PO BEDTIME Qty: 7 0RF thiamine HCl (vitamin B1) 100 mg tablet 100 mg PO BID Qty: 14 0RF atorvastatin [Lipitor] 40 mg tablet 40 mg PO DAILY Qty: 7 0RF haloperidol 10 mg tablet 10 mg PO BEDTIME Qty: 7 0RF hydroxyzine HCl 25 mg tablet 25 mg PO BID Qty: 14 0RF bupropion HCl [Wellbutrin XL] 150 mg tablet extended release 24 hr 150 mg PO QAM Qty: 7 0RF meclizine 25 mg tablet 25 mg PO TID PRN (Reason: dizziness) Qty: 20 0RF escitalopram oxalate 20 mg tablet PO DAILY insulin glargine [Lantus Solostar U-100 Insulin] 100 unit/mL (3 mL) insulin pen 15 unit subcut QPM Qty: 3 0RF (DME) lancets [FreeStyle Lancets] 28 gauge misc See Rx Instructions miscellaneous .MEDSUPPLY Qty: 100 3RF Rx Instructions: As directed check blood sugar bid (DME) lancets [FreeStyle Lancets] 28 gauge misc See Rx Instructions miscellaneous .MEDSUPPLY Qty: 100 3RF Rx Instructions: As directed CHECK BLOOD SUGAR BID Print Language: Czech
[2024-08-16 12:31] LABS: MANUAL DIFF FLAG NO
[2024-08-16 12:32] LABS: Basophils Percent Auto 0.7 % (0-2); Eosinophils Absolute Auto 0.2 X10*3/uL (0.0-0.4); Eosinophils Percent Auto 3.4 % (0-4); Hematocrit 37.1 % (42.0-52.0); Imm Gran Abs Auto 0.01 X10*3/uL (0.00-0.03); Imm Gran Pct Auto 0.2 % (0.0-0.4); Lymphocytes Percent Auto 18.3 % (20-40); Mean Corpuscular HGB Conc 32.3 g/dl (31.0-36.0); Mean Corpuscular Hemoglobin 29.8 pg (27.0-33.0); Mean Corpuscular Volume 92.1 fL (80.0-98.0); Mean Platelet Volume 10.8 fL (9.4-12.4); Monocytes Absolute Auto 0.4 X10*3/uL (0.1-1.2); Monocytes Percent Auto 6.5 % (2-11); Neutrophils Absolute Auto 3.8 x10*3/uL (2.0-8.3); Neutrophils Percent Auto 70.9 % (45-73); Platelet Count 222 X10*3/uL (160-400); Red Blood Count 4.03 X10*6/uL (4.60-5.80); Red Cell Distribution Width 16.3 % (11.0-16.0); White Blood Count 5.4 X10*3/uL (4.8-10.8)
[2024-08-16 12:50] LABS: Alanine Aminotransferase 9 U/L (0-40); Albumin Level 3.6 g/dL (3.5-5.0); Alkaline Phosphatase 91 U/L (39-117); Anion Gap 8 (12-20); Aspartate Amino Transferase 19 U/L (5-37); Bilirubin Total 0.5 mg/dL (0.0-1.0); Blood Urea Nitrogen 9 mg/dL (9-16); Calcium 8.9 mg/dL (8.4-10.2); Carbon Dioxide 28 mmol/L (22-29); Chloride 109 mmol/L (96-108); Creatinine Clr Calc Pharmacy 76.7; Estimated Glomerular Filt Rate 57; Glucose Random 134 mg/dL (60-115); Lipase 26 U/L (8-78); Magnesium 1.7 mg/dL (1.6-2.6); Potassium 4.1 mmol/L (3.3-5.1); Sodium 141 mmol/L (135-145); Total Protein 6.3 g/dL (6.5-8.0)
[2024-08-16 12:55] LABS: B Type Natriuretic Peptide 81 pg/mL (<100); Troponin-I High Sensitivity 4.6 ng/L (<3.5-35.0)
[2024-08-16 13:10] LABS: TSH reflex Free T4 1.99 uIU/mL (0.32-4.0)
[2024-08-16 13:14] LABS: Influenza A PCR NEGATIVE (Negative); Influenza B PCR NEGATIVE (Negative); Resp Syncy Virus RNA Qual PCR NEGATIVE (Negative); SARS COV2 PCR INHOUSE NEGATIVE (Negative)
[2024-08-16 14:48] VITALS: BP 133/48; PULSE 60; RESP 20; TEMP 36.4; O2SAT 98
[2024-08-16] MEDS: hydrOXYzine HCL 25 MG TABLET PO (15:13)
[2024-08-16 17:28] VITALS: BP 111/44; PULSE 60; RESP 16; TEMP 36.8; O2SAT 96
--- OUTSIDE RECORDS SUMMARY | 2024-08-16 17:46 | XMS_ITS ---
Author Organization [facility] Address [address] [place] [id number] Care Team Providers Care Financial Solutions Advisor Name Role Phone Fox Ku MD Primary Care Provider Tashi Bruno Unavailable [phone] Alisha Moore Unavailable Unavailable Allergies No Known [...] Problem Status W/U Status Risk Notes Problem [id number] History of adenomatous polyp of colon (Z86.010) Active confirmed Problem 746891237 Colon cancer screening (Z12.11) Active confirmed Problem 903274931442710 Preprocedural examination (Z01.818) Active confirmed Problem 261299127 Gastroesophageal reflux disease without esophagitis (K21.9) Active confirmed Vital Signs Temperature 97.7 degrees Fahrenheit 04/17/20 23 Blood pressure systolic 00 mm Hg 04/17/20 23 Blood pressure diastolic 00 mm Hg 023 Height 67.75 in 04/17/2023 Weight 262 lbs 04/17/2023 BMI 40.13 kg/m2 04/17/2023 Encounters Encounter Location Date Provider Diagnosis [facility] [address] [place] [address] 04/17/2023 Tashi Currie Preprocedural examin ation Z01.818 [...] KIAN MAHMOOD ODOB: [birth year] (52 yo M)Acc No.[id number]:04/17/2023 Progress Notes Patient:?KIAN MAHMOOD Provider:?Tashi Currie MD :1970???Age:52 Y???Sex:Male Bravo e:04/17/2023 Address:[address] [place], [place] [id number] Pcp:Fox Ku MD Subjective: * Chief Complaints: [...] * Surgical History:?Mass remov ed--Dr. Fields at [facility]-- Benign , but had XRT 2009Right [...] Procedure Codes:?3017F COLOR ECTAL CA SCREEN DOC [id number] TOBACCO [id number] BP SCR NOT PRFRM REC REASON NOS * Preventive Medicine:? ??Counseling:?Care goal follow-up plan:?Above Normal BMI Follow-up?Giving encouragement to exercise,?BMI management provided?Yes.? * Follow Up:?prn * * Sign off status: Completed true * Provider:?Tashi Currie MD Date:? 023 Generated for Chilo terrazas/Mariia/eTransmitting on:?08/16/2024 05:46 PM EDT History and Physical Notes * HPI [...]
--- OUTSIDE RECORDS SUMMARY | 2024-08-16 17:46 | XMS_ITS | Clinical Summary ---
Author Organization [facility] Address [address] [place] [address] Care Team Providers Care Dredge Pipe Installer Name Role Phone Unavailable Primary Care Provider [...] (1 of 3 - 19+ 3-dose series) 08/10 Pneumococcal Vaccines 50+ (1 of 1 - PCV) 2020 Zoster (Shingles) Vaccine (1 of 2) 2020 COVID-19 Vaccine (1 - season) 2024
--- OUTSIDE RECORDS SUMMARY | 2024-08-16 17:46 | XMS_ITS | Clinical Summary ---
Author Organization [facility] Address [address] [place] [address] Care Team Providers Care Vending Route Driver Name Role Phone Bon Arvizu MD Primary Care Provider [phone] Allergies No known active allergies Medications Ventolin HFA 108 (90 Base) MCG/ACT inhaler TAKE 2 PUFFS BY MOUTH EVERY 4 HOURS NEEDED FOR WHEEZE 09/02/19 23 Active atorvastatin (LIPITOR) 40 MG tablet Take 40 mg by mouth 1 (one) time each day 07/18/19 23 Active cholecalcifero l (VITAMIN D-3) 50 MCG (1999 UT) capsule Take by mouth 1 (one) time each day 09/21/19 23 Active escitalopram (LEXAPRO) 20 MG tablet Take 20 mg by mouth 1 (one) time each day in the morning 08/28/19 23 Active ferrous sulfate 325 (65 Fe) MG tablet Take 1 tablet by mouth 1 (one) time each day 09/15/19 23 Active Lantus SoloStar 100 UNIT/ML injection INJECT 20 UNIT (0.2 ML) SUBCUTANEOUSLY EVERY EVENING FOR 30 DAYS 09/06/19 23 Active BD Pen Needle Estrella 2nd Gen 32G X 4 MM misc See administration instructions 08/15/19 23 Active metFORMIN (GLUCOPHAGE) 1000 MG tablet Take 1,000 mg by mouth 08/02/19 23 Active omeprazole (PriLOSEC) [address] capsule TAKE 1 CAPSULE BY MOUTH DAILY FOR 90 DAYS 07/18/19 23 Active tamsulosin (FLOMAX) 0.4 MG 24 hr capsule TAKE 1 CAPSULE BY MOUTH AT BEDTIME FOR 30 DAYS 08/28/19 23 Active Blood Pressure Monitoring (Omron 10 Series BP Monitor) device 1 Units 1 (one) time each day 1 each 01/28/20 24 Active losartan (Cozaar) 25 MG tablet Take 1 tablet (25 mg total) by mouth 1 (one) time each day 90 tablet 3 08/05/19 25 026 Active atenolol (TENORMIN) 25 MG tablet Take 25 mg by mouth 1 (one) time each day 08/15/19 23 025 Discontin ued(Formu fransisco change) Active Problems No known active problems Encounters Date Type Department Care Team Description 08/04/2024 1:15 PM EDT Office Visit [facility] [address] [place] [address] Tashi Bonner MD Stage 3b chronic kidney disease (HCC) (Primary Dx) 07/27/2024 Orders Only [facility] [address] [place] [address] Tashi Bonner MD Stage 3a chronic kidney disease (HCC); Type 2 diabetes mellitus with diabetic chronic kidney disease (HCC) from Last 3 Months Family History Medical History Relation Comments Hypertension [...] Sign Reading Time Taken Comments Blood Pressure 110/82 08/04/2024 12:56 PM EDT Pulse 77 08/04/2024 12:56 PM EDT Temperature - - Respiratory Rate - - Oxygen Saturation 96% 08/04/2024 12:56 PM EDT Inhaled Oxygen Concentration - - Weight 107 kg (236 lb 6.4 oz) 08/04/2024 12:56 P M EDT Height 172.7 cm (5' 8 ) 01/28/2024 1:08 PM EDT Body Mass Index 35.94 01/28/2024 1:08 PM EDT Plan of Treatment Upcoming Encounters Date Type Department Care Team (Late st Contact Info) Description 02/02/2025 1:30 PM EDT Office Visit [facility] [address] [place] [address] Tashi Bonner MD [address] [phone] Health Maintenance Due Date Last [...] Diabetes: Visual Foot Exam 09/25/2022 Influenza Vaccine (Season Ended) 2025 Insurance Care Teams Vending Route Driver Relationship Specialty Start Date End Date Bon Arvizu MD [address] [place] [id number] PCP - General Internal Medicine 06/04/22
--- OUTSIDE RECORDS SUMMARY | 2024-08-16 17:47 | XMS_ITS ---
Author Organization [facility] Address [address] [place] [phone] Care Team Providers Care Broadcast Operations Manager Name Role Phone Fox Ku MD Primary Care Provider Tashi Bruno [phone] Alisha Moore Unavailable Unavailable REASON FOR VISIT [...] Active Encounters Encounter Location Date Provider Diagnosis [facility] [address] [place] [phone] 04/17/2023 Tashi Currie Plan Of Treatment Medication [...] KIAN MAHMOOD ODOB: [birth year] (52 yo M)Acc No.[id number]:04/17/2023 Patient:?KIAN MAHMOOD O :1970???Age:52 Y???Sex:Male Address:[address] [place] [id number] * Refills? Start MiraLax (colon prep) Powder, [...] true * Date:? Generated for Chilo terrazas/Mariia/Kavyaitting on:?08/16/2024 05:46 PM EDT
--- OUTSIDE RECORDS SUMMARY | 2024-08-16 17:47 | XMS_ITS ---
Author Organization [facility] Address [address] [place] [address] Care Team Providers Care Store Administrative Assistant Name Role Phone Fox Ku MD Primary Care Provider Tashi Bruno [phone] Alisha Moore Unavailable Unavailable REASON FOR VISIT screening,hx polyps Problems Problem Type SNOMED Code ICD Code Onset Dates Problem Status W/U Status Risk Notes Problem Diverticular disease of colon (766902328) Diverticulosis of large intestine without perforation or abscess without bleeding (K57.30) Active confirmed Encounters Encounter Location Date Provider Diagnosis [facility] [place] [facility] [address] [place] [phone] 07/13/2023 Tashi Currie Encounter for scre ening [...] KIAN MAHMOOD ODOB: [birth year] (53 yo M)Acc No.[id number]:07/13/2023 COLON WITH MAC Patient:?KIAN MAHMOOD Provider:?Tashi Currie MD :1970???Age:52 Y???Sex:Male Bravo e:07/13/2023 Address:[address] [place] [address] , Andrey bassett [facility] Pcp:Fox Ku MD Subjective: * Chief Complaints: * ???1. Screening,hx polyps. * Medical History:? Objective: * Vitals:? Assessment: * Assessment: 1.?Encounter for screening c olonoscopy - Z12.11 (Primary)???2.?Colon polyps - K63.5???3.?Diverticulosis of large intestine without perforation or abscess without bleeding - K57.30???4.?Other hemorrhoids - K64.8??? Plan: * Treatment: * Procedure Codes:?34623 COLON OSCOPY AND BIOPSY, Modifiers: 33 * * The named appointment provid er may or may not be the originator of this progress note, and it is not deemed complete until electronically signed by the appointment provider. Sign off status: Pending * Provider:?Tashi Currie MD Date:? 024 Generated for Chilo terrazas/Mariia/eTransmitting on:?08/16/2024 05:46 PM EDT
--- OUTSIDE RECORDS SUMMARY | 2024-08-16 17:47 | XMS_ITS | Patient Health Record ---
Author Organization [facility] Address [address] [place] [address] Care Team Providers Care Electrical Tests Supervisor Name Role Phone Fox Ku MD Primary Care Provider Briana Tashi Erwin Unavailable [phone] Alisha Moore Unavailable Unavailable Allergies No Known [...] Problem Status W/U Status Risk Notes Problem 342516490 Colon cancer screening (Z12.11) Active confirmed Problem 288449983 History of adenomatous polyp of colon (Z86.010) Active confirmed Problem Diverticular disease of colon (015192635) Diverticulosis of large intestine without perforation or abscess without bleeding (K57.30) Active confirmed Problem 721698899 Gastroesophageal reflux disease without esophagitis (K21.9) Active confirmed Problem [id number] Preprocedural examination (Z01.818) Active confirmed Problem 90717524 Iron deficiency anemia, unspecified iron deficiency anemia type (D50.9) Active confirmed Plan Of Treatment Pending Test Test Name Order Date Pathology 07/13/2023 Future Test Test Name Order Date UPPER GI ENDOSCOPY 06/23/2017 COLONOSCOPY 06/23/2017 COLONOSCOPY 04/17/2023 Insurance Providers Payer Name Payer Address Payer Phone Subscriber Number Group Number Insured Name Patient Relationship to Insured Coverage Start Date Coverage End Date [facility] [address] [address] [place], [place] [id number] KIAN MAHMOOD Self - patient is the insured MEDICAID OF [facility] [address] [place] [address] [id number] KIAN MAHMOOD Self - patient is the insured Medical (General) History Medical History History ICD Code IDDM Hypertension Heart murmur-Dr. Collins Asthma/COPD- Dr. Correa Pulmonary embolus in 2016--on Coumadin-- sees Dr. Moore Lung mass--surgery in 2008 a s below, with XRT; biopsied in approx 2015 and benign--followed by Dr. Tino Dimas [place],CVA,renal disease GERD--upper endoscopy August of 2017 with [...] History Surgery Date(Month/Year) Mass removed--Dr. Fields at [facility]-- Be nign , but had XRT 2008 Right inguinal hernia 1990 Ear tubes/Adenoids
--- OUTSIDE RECORDS SUMMARY | 2024-08-16 17:47 | XMS_ITS | Encounter Summary ---
Author Organization [facility] Address [address] [place] [address] Care Team Providers Care Chief Of Staff Doctor Name Role Phone Unavailable Primary Care Provider Unavailabl e Encounter Details Date Type Department Care Team (Late st Contact Info) Description 12/23/2021 Scanned Document [facility] [address] [place] [id number] Gastroenterology, Scan Social History Tobacco Use Types [...]
== END 2024-08-16 17:40 | disposition home or self-care (01) ==
PROVIDERS: Physician Assistant; Emergency Provider Emergency Medicine; PCP Internal Medicine
DX: R00.2 Palpitations (principal); R06.02 Shortness of breath; E11.9 Type 2 diabetes mellitus without complications; I10 Essential (primary) hypertension; E78.00 Pure hypercholesterolemia, unspecified; J45.909 Unspecified asthma, uncomplicated; Z03.818 Encounter for observation for suspected exposure to other biological agents ruled out
CPT/HCPCS: 0241U; 36415; 71046; 80053; 83690; 83735; 83880; 84443; 84484; 85025; 93005; 99283; 99284

== ENCOUNTER → 2024-08-16 12:13 | Outpatient (BNV) | payer OTHER, SELFPAY | PROVIDERS: Emergency Provider Emergency Medicine; PCP Internal Medicine; Visit Provider Internal Medicine Cardiovascular Disease | DX: R94.31 Abnormal electrocardiogram [ECG] [EKG] (principal); R00.0 Tachycardia, unspecified | CPT/HCPCS: 93010 ==

== ENCOUNTER → 2024-08-16 12:18 | Outpatient (BNV) | payer OTHER, SELFPAY | PROVIDERS: PCP Internal Medicine; Visit Provider Radiology Diagnostic Radiology | DX: R07.9 Chest pain, unspecified (principal) | CPT/HCPCS: 71046 ==

== ENCOUNTER → 2024-08-31 13:47 | Outpatient (BNVA) | payer OTHER, SELFPAY | PROVIDERS: PCP Internal Medicine ==

== ENCOUNTER → 2024-09-07 14:28 | Outpatient (BNVA) | payer OTHER, SELFPAY | PROVIDERS: PCP Internal Medicine ==

== ENCOUNTER 2024-09-13 14:12 | Outpatient (AMB) | payer OTHER, SELFPAY ==
[2024-09-13 14:28] VITALS: BP 144/76; PULSE 72; RESP 18; TEMP 37.2; O2SAT 96; BMI 36.6
--- NOTE | 2024-09-13 14:28 | A.OFFPC_ITS ---
Vital Signs 3 09/13/24 14:28 Height 5 ft 8 in Weight 240 lb 9.6 oz BMI 36.6 BP 144/76 H Blood Pressure Location Lt brachial Position Sitting Respiration 18 Pulse 72 Pulse Source Pulse Oximeter Temp 99.0 F Temp Source Oral Pulse Oximetry (%) 96 Oxygen Delivery Method Room Air Intake Visit Reasons: LT rib side fungal infection Safety Companion Required: No Accompanied by: Self / Same As Patient Allergies pollen extracts [POLLEN] Allergy (Mild, Verified 09/13/24 15:18) RUNNY NOSE cat dander [CATS] Allergy (Unknown, Verified 09/13/24 15:18) UNKNOWN dog dander [DOGS] Allergy (Unknown, Verified 09/13/24 15:18) UNKNOWN mold [MOLD] Allergy (Unknown, Verified 09/13/24 15:18) UNKNOWN Medication List - Last Reconciled 09/13/24 by NAEL Dietrich albuterol sulfate 90 mcg/actuation (Ventolin HFA) 2 puffs inhalation Q4-6H PRN aripiprazole (Abilify) 5 mg PO DAILY atenolol 25 mg PO DAILY atorvastatin (Lipitor) 40 mg PO DAILY benztropine 0.5 mg PO BID 30 days blood sugar diagnostic (FreeStyle Lite Strips) As directed- BID blood-glucose meter (FreeStyle Lite Meter kit) As directed- BID bupropion HCl XL (Wellbutrin XL) 150 mg PO QAM cholecalciferol (vitamin D3) 50 mcg PO DAILY 90 days docusate sodium 100 mg PO BEDTIME escitalopram oxalate mg PO DAILY ferrous sulfate 325 mg PO DAILY haloperidol 10 mg PO BEDTIME hydroxyzine HCl 25 mg PO TID PRN insulin glargine (Lantus Solostar U-100 Insulin) 15 units (0.15 mL) subcut QPM lancets (FreeStyle Lancets) As directed check blood sugar bid lancets (FreeStyle Lancets) As directed CHECK BLOOD SUGAR BID losartan 25 mg PO DAILY meclizine 25 mg PO TID PRN melatonin 6 mg PO BEDTIME metformin 1,000 mg PO BID 90 days omeprazole 40 mg PO DAILY tamsulosin (Flomax) 0.4 mg PO BEDTIME thiamine HCl (vitamin B1) 100 mg PO BID Tobacco use date assessed: 09/13/24 Dental Screening Dental Screen Date: 09/13/24 Did you have a dental visit in the last 12 months?: No Did you have a dental problem in the last 6 months where you did not have access to dental care?: No Was dental information given to patient?: No HPI LT rib side fungal infection 2 HPI0 Details The patient is a 54-year-old male presenting with a fungal infection on the left side of his ribs. He reports intense itchiness leading to scratching and reopening of the affected site. The issue began following a remote fall onto a board with nails, causing scars where the infection developed. The site of infection has a yellowish coating, suggesting bacterial involvement. The patient notes numbness at the site but denies pain, despite significant irritation. He has diabetes mellitus, which may complicate the healing process and complicate control of the infection. He has experienced a persistently elevated heart rate and insomnia since developing the infection attributed to anxiety. He denies allergies to antibiotics. [facility] Medical History Psychosis Chest pain Suicidal ideation Recurrent major depression Allergic rhinitis Insomnia Palpitations Vitamin D deficiency Chronic kidney disease, stage III (moderate) GERD without esophagitis Restrictive lung disease Obesity (BMI 30-39.9) Benign essential hypertension Pure hypercholesterolemia Diabetes mellitus Pulmonary emboli Chondrosarcoma Hyperlipidemia Chronic restrictive lung disease COPD (chronic obstructive pulmonary disease) Asthma Surgical History History of esophagogastroduodenoscopy (EGD) H/O colonoscopy History of inguinal hernia repair Hx of exploratory thoracotomy H/O tooth extraction Family History Father Hypertension Kidney failure, acute Mother Lung cancer Family/Other Diabetes Social History Household Members: None Housing: Apartment Do you presently have visiting nurse or other home services: No Alcohol intake: never Patient Tobacco Use Status: Never used Tobacco e-Cigarette/Vaping Use: Never Used Second Hand Smoke Exposure: Yes service: No Current occupational status: unemployed Sexual orientation: Straight/Heterosexual Cognitive needs: No Hearing needs: No Vision needs: Yes (Glasses) Questionnaire PHQ-9 Over the last 2 weeks, how often have you been bothered by any of the following problems? 1. Little interest or pleasure in doing things: not at all 2. Feeling down, depressed, or hopeless: not at all 3. Trouble falling or staying asleep, or sleeping too much: not at all 4. Feeling tired or having little energy: not at all 5. Poor appetite or overeating: not at all 6. Feeling bad about yourself - or that you are a failure or have let yourself or your family down: not at all 7. Trouble concentrating on things, such as reading the newspaper or watching television: not at all 8. Moving or speaking so slowly that other people could have noticed. Or the opposite - being so fidgety or restless that you have been moving around a lot more than usual: not at all 9. Thoughts that you would be better off or of hurting yourself in some way: not at all Total score: 0 Depression Screening Interpretation: Negative Depression Screening Done: Yes Source: Developed by Drs. Tashi Michael, Laura Archer, Ambrosio Xie and colleagues, with an educational maría elena from [employer]. Thrive Questionnaire Date Thrive assessed: 09/13/24 I am a: Patient What is your living situation today?: I have a steady place to live Within the past 12 months, did the food you bought not last and you didn't have the money to get more?: I choose not to answer this question Within the past 12 months, did you worry whether your food would run out before you got money to buy more?: I choose not to answer this question Do you have trouble paying for medicines?: I choose not to answer this question Do you have trouble getting transportation to medical appointments?: I choose not to answer this question Do you have trouble paying your heating and electricity bill?: I choose not to answer this question Do you have trouble taking care of your child, family member or friend?: I choose not to answer this question Do you have trouble with day-to-day activities such as bathing, preparing meals, shopping, managing finances, etc.?: I choose not to answer this question Are you currently unemployed and looking for a job?: Yes Are you interested in more education?: No Please select the resources that you would like help with: None Currently or been in a relationship where the following occur: I choose not to answer THRIVE Score: 0 AUDIT C Alcohol Use Questionnaire (AUDIT-C) 1. How often do you have a drink containing alcohol?: Never Total Score: 0 Score Reviewed/Action Taken: No CATIE-7 AMB Questionnaire CATIE-7 Date CATIE - 7 assessed: 09/13/24 Feeling nervous, anxious, or on edge: 1 = Several days Not being able to stop or control worryin = Not at all Worrying too much about different things: 0 = Not at all Trouble relaxin = Not at all Being so restless that it is hard to sit still: 0 = Not at all Becoming easily annoyed or irritable: 0 = Not at all Feeling afraid as if something awful might happen: 0 = Not at all Total CATIE-7 score (0-4 normal; 5-9 mild; 10-14 moderate; 15-21 severe): 1 Source: Developed by Drs. Tashi Michael, Laura Archer, Ambrosio Xie and colleagues, with an educational maría elena from [employer]. Review of Systems Const Denies chills and Denies fever(s) Eyes Reports no additional complaints Card Denies chest pain, Reports rapid heart rate (Intermittently), Denies leg edema and Denies lightheadedness Resp Denies cough, Denies hemoptysis and Denies wheezing GI Denies abdominal pain, Denies nausea and Denies vomiting Skin/Breast Reports wounds (Left chest wound) Neuro Denies Abnormal speech present Aller/Immun Denies wheezing Physical exam (Primary Care) Vital Signs: Last Vital Signs Temp 99.0 F 09/13/24 14:28 Pulse 72 09/13/24 14:28 Resp 18 09/13/24 14:28 BP 144/76 H 09/13/24 14:28 Pulse Ox 96 09/13/24 14:28 Oxygen Delivery Method Room Air 09/13/24 14:28 BMI result Body Mass Index 36.6 Tobacco/Smoking Status: Tobacco use Status Tobacco use date assessed 09/13/24 09/13/24 14:30 Patient Tobacco Use Status Never used Tobacco 09/13/24 14:30 e-Cigarette/Vaping Use Never Used 09/13/24 14:30 PHQ-9: PHQ-9 Score PHQ-9: Total score 0 09/15/24 00:09 Depression Screening Interpretation: Negative Thrive Assessment: Date of Thrive Assessment Date Thrive assessed 09/13/24 09/13/24 14:30 Currently or been in a relationship where the following occur: I choose not to answer Const General: healthy appearing, no acute distress, alert and awake Nutritional Appearance: well nourished Orientation/consciousness: oriented to person, oriented to place and oriented to time HENMT Ears: TM's normal bilaterally General nose exam: Normal nasal mucous membranes and turbinates present Eyes Conjunctivae: conjunctivae normal Sclerae: sclerae normal Pupils: Equal, round and reactive pupils present Neck Neck: Yes no lymphadenopathy Thyroid: Thyroid normal Carotids: no bruits Chest Other: Resp Effort & Inspection: normal respiratory effort and not tachypneic Auscultation: no crackles, no rales, no rhonchi and no wheezes Cardio Rate: regular rate Rhythm: regular rhythm Heart sounds: no murmurs and normal S1 and S2 GI Palpation (GI): Soft to palpation, nontender, no hepatomegaly and no splenomegaly Auscultation: normal bowel sounds Skin General skin exam: dry skin Wounds: wounds noted (Left chest wound, old scar reopened-self inflicted scratching) Neuro General: oriented to person, oriented to place and oriented to time Cranial nerves: Yes Equal, round and reactive pupils present Speech: No Abnormal speech present Gait exam (Neuro): Normal gait present Coding Level of Care Code Est Pt Level 3 (80283) Diagnoses Open wound of left chest wall, sequela S21.102S Encounter type: sequela Type 2 diabetes mellitus with hyperglycemia, without long-term current use of insulin E11.65 Diabetes mellitus type: type 2 Diabetes mellitus retirement insulin use: without exterminator termite use Diabetes mellitus complication status: with hyperglycemia Time Spent (min) 31 Assessment & Plan Assessment & Plan (1) Open wound of left chest wall: Code(s): S21.102A - Unspecified open wound of left front wall of thorax without penetration into thoracic cavity, initial encounter Category: Medical Qualifiers: Encounter type: sequela Qualified Code(s): S21.102S - Unspecified open wound of left front wall of thorax without penetration into thoracic cavity, sequela Plan: Patient has old scarring to the left chest from an old injury after falling on a board with nails, per patient. Patient reports scratching the area due to itchiness, causing the area to reopen and appears infected at this time. Wound bed covered with slough, the area was cleansed with normal saline and and dressed with dry dressing. The patient was started on doxycycline and an urgent wound consult was placed. Inform patient that the wound might need mild debridement due to the slough buildup. (2) Diabetes mellitus: Comment: taking Lantus insulin, Metformin, Montelukast Code(s): E11.9 - Type 2 diabetes mellitus without complications Category: Medical Qualifiers: Diabetes mellitus type: type 2 Diabetes mellitus exterminator termite insulin use: without retirement use Diabetes mellitus complication status: with hyperglycemia Qualified Code(s): E11.65 - Type 2 diabetes mellitus with hyperglycemia Plan: The patient last A1c was 5.8%, showing controlled diabetes, however this a concern of possible poor wound healing due to his diabetic status. Discussed with the patient to not itch area his hydroxyzine was refilled to to mitigate the itching sensation. Orders: Referrals 2 Wound Care Referral S21.102S - Unspecified open wound of left front wall of thorax without penetration into thoracic cavity, sequela Medications: New 2 doxycycline monohydrate 100 mg PO BID 10 days 20 caps 0RF S21.102S - Unspecified open wound of left front wall of thorax without penetration into thoracic cavity, sequela Refilled 2 thiamine HCl (vitamin B1) 100 mg PO BID 14 tabs 0RF hydroxyzine HCl 25 mg PO TID PRN 20 tabs 0RF anxiety
--- OUTSIDE RECORDS SUMMARY | 2024-09-13 15:34 | XMS_ITS | Clinical Summary ---
Author Organization [facility] Address [address] [place] [address] Care Team Providers Care Cupola Charger Name Role Phone Unavailable Primary Care Provider Unavailabl e Social History Tobacco Use Types Packs/Day Years Used Date Smoking Tobacco: Never Assessed Sex and Gender Information Value Date Recorded Sex Assigned at Not on file Legal Sex Male 6:29 PM EST Gender Identity Not on file [...] of 2) 2020 COVID-19 Vaccine (1 - 2023- season) 2024
--- OUTSIDE RECORDS SUMMARY | 2024-09-13 15:34 | XMS_ITS ---
Author Organization [facility] Address [address] [place] [address] Care Team Providers Care Technical Healthcare Consultant Name Role Phone Fox Ku MD Primary Care Provider Tashi Bruno Unavailable [phone] Alisha Moore Unavailable Unavailable Allergies No Known [...] Problem Status W/U Status Risk Notes Problem 007052534 History of adenomatous polyp of colon (Z86.010) Active confirmed Problem 914123310 Colon cancer screening (Z12.11) Active confirmed Problem 186113118640443 Preprocedural examination (Z01.818) Active confirmed Problem 498542136 Gastroesophageal reflux disease without esophagitis (K21.9) Active confirmed Vital Signs Temperature 97.7 degrees Fahrenheit 04/17/20 23 Blood pressure systolic 00 mm Hg 04/17/20 23 Blood pressure diastolic 00 mm Hg 023 Height 67.75 in 04/17/2023 Weight 262 lbs 04/17/2023 BMI 40.13 kg/m2 04/17/2023 Encounters Encounter Location Date Provider Diagnosis [facility] [address] [place] [address] 04/17/2023 Tashi Currie Preprocedural examin ation Z01.818 [...] KIAN MAHMOOD ODOB: [birth year] (52 yo M)Acc No.[id number]:04/17/2023 Progress Notes Patient:?KIAN MAHMOOD Provider:?Tashi Currie MD :1970???Age:52 Y???Sex:Male Bravo e:04/17/2023 Address:[address] [place], [place] [id number] Pcp:Fox Ku MD Subjective: * Chief Complaints: [...] * Surgical History:?Mass remov ed--Dr. Fields at [facility]-- Benign , but had XRT 2009Right [...] Procedure Codes:?3017F COLOR ECTAL CA SCREEN DOC UTZ9037N TOBACCO NON-[id number] BP SCR NOT PRFRM REC REASON NOS * Preventive Medicine:? ??Counseling:?Care goal follow-up plan:?Above Normal BMI Follow-up?Giving encouragement to exercise,?BMI management provided?Yes.? * Follow Up:?prn * * Sign off status: Completed true * Provider:?Tashi Currie MD Date:? 023 Generated for Jocelini nini/Mariia/eTransmitting on:?09/13/2024 03:34 PM EDT History and Physical Notes * [...]
--- OUTSIDE RECORDS SUMMARY | 2024-09-13 15:34 | XMS_ITS ---
Author Organization [facility] Address [address] [place] [address] Care Team Providers Care Motorcycle Assembler Name Role Phone Fox Ku MD Primary Care Provider Tashi Bruno [phone] Alisha Moore Unavailable Unavailable REASON FOR VISIT [...] Active Encounters Encounter Location Date Provider Diagnosis [facility] [address] [place] [address] 04/17/2023 Tashi Currie Plan Of Treatment Medication [...] KIAN MAHMOOD ODOB: [birth year] (52 yo M)Acc No.[id number]:04/17/2023 Patient:?KIAN MAHMOOD O :1970???Age:52 Y???Sex:Male Address:[address] [place] [address] * Refills? Start MiraLax (colon prep) Powder, [...] true * Date:? Generated for Chilo terrazas/Mariia/Kavyaitting on:?09/13/2024 03:34 PM EDT
--- OUTSIDE RECORDS SUMMARY | 2024-09-13 15:34 | XMS_ITS | Clinical Summary ---
Author Organization [facility] Address [address] [place] [address] Care Team Providers Care Dumpman Name Role Phone Bon Arvizu MD Primary Care Provider [phone] Allergies No known active allergies Medications Ventolin HFA 108 (90 Base) MCG/ACT inhaler TAKE 2 PUFFS BY MOUTH EVERY 4 HOURS NEEDED FOR WHEEZE 3 Active atorvastatin (LIPITOR) 40 MG tablet [...] time each day 1 each 4 Active losartan (Cozaar) 25 MG tablet Take 1 tablet (25 mg total) by mouth 1 (one) time each day 90 tablet 3 5 026 Active Active Problems No known active problems Encounters Date Type Department Care Team Description 08/04/2024 1:15 PM EDT Office Visit [facility] [address] [place] [address] Tashi Bonner MD Stage 3b chronic kidney disease (HCC) (Primary Dx) 07/27/2024 Orders Only [facility] [address] [place] [address] Tashi Bonner [...] [facility] [address] [place] [address] Tashi Bonner MD [address] [facility] [address] [place] [address] Health Maintenance Due Date Last Done Comments Hepatitis B Vaccine (1 of 3 - 19+ 3-dose series) 09/03 Pneumococcal Vaccine: 50+ Years (1 of 2 - PCV) 990 Colorectal Cancer Screening: Annual FOBT 09/04/2019 Colorectal Cancer Screening: Colonoscopy 09/04/2019 Colorectal Cancer Screening: Sigmoidoscopy 09/04/2019 Diabetes: Hemoglobin A1C 09/25/2022 Diabetes: Ophthalmology Exam 09/25/2022 Diabetes: Pedal Pulse Checked 09/25/2022 Diabetes: Sensory Foot Exam 09/25/2022 Diabetes: Visual Foot Exam 09/25/2022 Influenza Vaccine (Season Ended) 2025 Insurance Care Teams Dumpman Relationship Specialty Start Date End Date Bon Arvizu MD [address] [place] [address] [address] [place] [address] PCP - General Internal Medicine 06/04/22
--- OUTSIDE RECORDS SUMMARY | 2024-09-13 15:34 | XMS_ITS | Patient Health Record ---
Author Organization [facility] Address [address] [place] [address] Care Team Providers Care Escalator Constructor Name Role Phone Fox Ku MD Primary Care Provider Briana Tashi Erwin Unavailable [phone] Alisha Moore Unavailable Unavailable Allergies No Known [...] Problem Status W/U Status Risk Notes Problem 109882718 Colon cancer screening (Z12.11) Active confirmed Problem 947538820 History of adenomatous polyp of colon (Z86.010) Active confirmed Problem Diverticulosis o f large intestine without perforation or abscess without bleeding (K57.30) Active confirmed Problem 401050217 Gastroesophageal reflux disease without esophagitis (K21.9) Active confirmed Problem 464512227930243 Preprocedural examination (Z01.818) Active confirmed Problem 95771203 Iron deficiency anemia, unspecified iron deficiency anemia type (D50.9) Active confirmed Plan Of Treatment Pending Test Test Name Order Date Pathology 07/13/2023 Future Test Test Name Order Date UPPER GI ENDOSCOPY 06/23/2017 COLONOSCOPY 06/23/2017 COLONOSCOPY 04/17/2023 Insurance Providers Payer Name Payer Address Payer Phone Subscriber Number Group Number Insured Name Patient Relationship to Insured Coverage Start Date Coverage End Date [employer] [facility] [address] [address] [place], [place] [id number] KIAN MAHMOOD Self - patient is the insured MEDICAID OF [facility] [address] [place] [address] [phone] [id number] KIAN MAHMOOD Self - patient is the insured Medical (General) History Medical History History ICD Code IDDM Hypertension Heart murmur-Dr. Collins Asthma/COPD- Dr. Correa Pulmonary embolus in 2016--on Coumadin-- sees Dr. Dulala Lung mass--surgery in 2008 a s below, with XRT; biopsied in approx 2015 and benign--followed by Dr. Tino Cristobalies [place],CVA,renal disease GERD--upper endoscopy August of 2017 [...] History Surgery Date(Month/Year) Mass removed--Dr. Fields at [facility]-- Be nign , but had XRT 2008 Right inguinal hernia 1990 Ear tubes/Adenoids
--- OUTSIDE RECORDS SUMMARY | 2024-09-13 15:34 | XMS_ITS | Encounter Summary ---
Author Organization [facility] Address [address] [place] [address] Care Team Providers Care Lavender Farm Worker Name Role Phone Unavailable Primary Care Provider Unavailabl e Encounter Details Date Type Department Care Team (Late st Contact Info) Description 12/23/2021 Scanned Document [facility] [address] [place] [id number] Gastroenterology, Scan Social History Tobacco Use Types [...]
--- OUTSIDE RECORDS SUMMARY | 2024-09-13 15:35 | XMS_ITS ---
Author Organization [facility] Address [address] [place] [address] Care Team Providers Care Telephone Betting Clerk Name Role Phone Fox Ku MD Primary Care Provider Tashi Bruno [phone] Alisha Moore Unavailable Unavailable REASON FOR VISIT screening,hx polyps Problems Problem Type SNOMED Code ICD Code Onset Dates Problem Status W/U Status Risk Notes Problem Diverticular disease of colon (659332884) Diverticulosis of large intestine without perforation or abscess without bleeding (K57.30) Active confirmed Encounters Encounter Location Date Provider Diagnosis [facility] Outpatient [address] [place] [phone] 07/13/2023 Tashi Currie Encounter for scre ening [...] KIAN MAHMOOD ODOB: [birth year] (54 yo M)Acc No.[id number]:07/13/2023 COLON WITH MAC Patient:?KIAN MAHMOOD Provider:?Tashi Currie MD :1970???Age:52 Y???Sex:Male Bravo e:07/13/2023 Address:[address] [place] [address] , [place] [facility] Pcp:Fox Ku MD Subjective: * Chief Complaints: * ???1. Screening,hx polyps. * Medical History:? Objective: * Vitals:? Assessment: * Assessment: 1.?Encounter for screening c olonoscopy - Z12.11 (Primary)???2.?Colon polyps - K63.5???3.?Diverticulosis of large intestine without perforation or abscess without bleeding - K57.30???4.?Other hemorrhoids - K64.8??? Plan: * Treatment: * Procedure Codes:?37389 COLON OSCOPY AND BIOPSY, Modifiers: 33 * * The named appointment provid er may or may not be the originator of this progress note, and it is not deemed complete until electronically signed by the appointment provider. Sign off status: Pending * Provider:?Tashi Currie MD Date:? 024 Generated for Chilo terrazas/Mariia/eTransmitting on:?09/13/2024 03:34 PM EDT
== END 2024-09-13 15:47 | disposition home or self-care (01) ==
LOC: HO.HMCH 14:13
PROVIDERS: PCP Internal Medicine
DX: S21.102S Unspecified open wound of left front wall of thorax without penetration into thoracic cavity, sequela (principal); E11.65 Type 2 diabetes mellitus with hyperglycemia

== ENCOUNTER → 2024-09-13 14:12 | Outpatient (BNVA) | payer OTHER, SELFPAY | PROVIDERS: PCP Internal Medicine | DX: S21.102D Unspecified open wound of left front wall of thorax without penetration into thoracic cavity, subsequent encounter (principal); L08.9 Local infection of the skin and subcutaneous tissue, unspecified; X58.XXXD Exposure to other specified factors, subsequent encounter; E11.65 Type 2 diabetes mellitus with hyperglycemia | CPT/HCPCS: 99212 ==

== ENCOUNTER 2024-09-27 12:37 | Outpatient (AMB) | payer OTHER, SELFPAY ==
[2024-09-27 12:44] VITALS: BP 132/78; PULSE 65; RESP 20; TEMP 37.1; O2SAT 96; BMI 35.7
--- NOTE | 2024-09-27 12:44 | A.OFFPC_ITS ---
Vital Signs 3 09/27/24 12:44 Height 5 ft 8 in Weight 235 lb BMI 35.7 BP 132/78 Blood Pressure Location Lt brachial Position Sitting Respiration 20 Pulse 65 Pulse Source Pulse Oximeter Temp 98.8 F Temp Source Oral Pulse Oximetry (%) 96 Oxygen Delivery Method Room Air Intake Visit Reasons: left chest wound Marine Propulsion Technician Required: No Accompanied by: Self / Same As Patient Allergies pollen extracts [POLLEN] Allergy (Mild, Verified 09/27/24 13:53) RUNNY NOSE cat dander [CATS] Allergy (Unknown, Verified 09/27/24 13:53) UNKNOWN dog dander [DOGS] Allergy (Unknown, Verified 09/27/24 13:53) UNKNOWN mold [MOLD] Allergy (Unknown, Verified 09/27/24 13:53) UNKNOWN Medication List - Last Reconciled 09/27/24 by NAEL Dietrich albuterol sulfate 90 mcg/actuation (Ventolin HFA) 2 puffs inhalation Q4-6H PRN aripiprazole (Abilify) 5 mg PO DAILY atenolol 25 mg PO DAILY atorvastatin (Lipitor) 40 mg PO DAILY [BD Estrella 2 GEN Pen NDL 32G 4mm As directed] benztropine 0.5 mg PO BID 30 days blood sugar diagnostic (FreeStyle Lite Strips) As directed- BID blood-glucose meter (FreeStyle Lite Meter kit) As directed- BID bupropion HCl XL (Wellbutrin XL) 150 mg PO QAM cholecalciferol (vitamin D3) 50 mcg PO DAILY 90 days docusate sodium 100 mg PO BEDTIME escitalopram oxalate mg PO DAILY ferrous sulfate 325 mg PO DAILY haloperidol 10 mg PO BEDTIME hydroxyzine HCl 25 mg PO TID PRN insulin glargine (Lantus Solostar U-100 Insulin) 15 units (0.15 mL) subcut QPM lancets (FreeStyle Lancets) As directed check blood sugar bid lancets (FreeStyle Lancets) As directed CHECK BLOOD SUGAR BID losartan 25 mg PO DAILY meclizine 25 mg PO TID PRN melatonin 6 mg PO BEDTIME metformin 1,000 mg PO BID 90 days omeprazole 40 mg PO DAILY pen needle, diabetic (UltiCare Pen Needle) As directed- Daily with Lantus pen tamsulosin (Flomax) 0.4 mg PO BEDTIME thiamine HCl (vitamin B1) 100 mg PO BID 90 days Tobacco use date assessed: 09/27/24 Dental Screening Dental Screen Date: 09/27/24 Did you have a dental visit in the last 12 months?: No Did you have a dental problem in the last 6 months where you did not have access to dental care?: No Was dental information given to patient?: Patient has dentist HPI left chest wound 2 HPI0 Details The patient wound is improving and healing accordingly. Left chest wound cleansed and dressed with xeroform dressing and covered with Dry, clean dressing. Wound clinic called to check on appt. They will be calling the patient sometime today. Encouraged the patient not to itch area anymore and lookout for the call from the wound clinic. Reports that it is a habit but he will try is hardest not to itch the area. He is afebrile, denies chest pain, sob, heart palpitation. [facility] Medical History Psychosis Chest pain Suicidal ideation Recurrent major depression Allergic rhinitis Insomnia Palpitations Vitamin D deficiency Chronic kidney disease, stage III (moderate) GERD without esophagitis Restrictive lung disease Obesity (BMI 30-39.9) Benign essential hypertension Pure hypercholesterolemia Diabetes mellitus Pulmonary emboli Chondrosarcoma Hyperlipidemia Chronic restrictive lung disease COPD (chronic obstructive pulmonary disease) Asthma Surgical History History of esophagogastroduodenoscopy (EGD) H/O colonoscopy History of inguinal hernia repair Hx of exploratory thoracotomy H/O tooth extraction Family History Father Hypertension Kidney failure, acute Mother Lung cancer Family/Other Diabetes Social History Household Members: None Housing: Apartment Do you presently have visiting nurse or other home services: No Alcohol intake: never Patient Tobacco Use Status: Never used Tobacco e-Cigarette/Vaping Use: Never Used Second Hand Smoke Exposure: Yes service: No Current occupational status: unemployed Sexual orientation: Straight/Heterosexual Cognitive needs: No Hearing needs: No Vision needs: Yes (Glasses) Questionnaire Thrive Questionnaire Date Thrive assessed: 09/27/24 I am a: Patient What is your living situation today?: I have a steady place to live Within the past 12 months, did the food you bought not last and you didn't have the money to get more?: I choose not to answer this question Within the past 12 months, did you worry whether your food would run out before you got money to buy more?: I choose not to answer this question Do you have trouble paying for medicines?: I choose not to answer this question Do you have trouble getting transportation to medical appointments?: I choose not to answer this question Do you have trouble paying your heating and electricity bill?: I choose not to answer this question Do you have trouble taking care of your child, family member or friend?: I choose not to answer this question Do you have trouble with day-to-day activities such as bathing, preparing meals, shopping, managing finances, etc.?: I choose not to answer this question Are you currently unemployed and looking for a job?: Yes Are you interested in more education?: No Please select the resources that you would like help with: None Currently or been in a relationship where the following occur: I choose not to answer THRIVE Score: 0 AUDIT C Alcohol Use Questionnaire (AUDIT-C) 1. How often do you have a drink containing alcohol?: Never Total Score: 0 Score Reviewed/Action Taken: No CATIE-7 AMB Questionnaire CATIE-7 Date CATIE - 7 assessed: 09/13/24 Source: Developed by Drs. Tashi Michael, Laura Archer, Ambrosio Xie and colleagues, with an educational maría elena from [employer]. Review of Systems Const Denies headache(s) Eyes Reports no additional complaints ENT Reports vertigo, Denies dizziness, Denies headache(s) and Denies sore throat Card Denies chest pain, Denies leg edema and Denies lightheadedness Resp Denies cough, Denies hemoptysis and Denies wheezing Skin/Breast Reports wounds (left chest wound) Neuro Denies Abnormal speech present, Reports vertigo, Denies dizziness and Denies headache(s) Edu/Lymph Denies easy bleeding and Denies easy bruising Aller/Immun Denies wheezing Physical exam (Primary Care) Vital Signs: Last Vital Signs Temp 98.8 F 09/27/24 12:44 Pulse 65 09/27/24 12:44 Resp 20 09/27/24 12:44 BP 132/78 09/27/24 12:44 Pulse Ox 96 09/27/24 12:44 Oxygen Delivery Method Room Air 09/27/24 12:44 BMI result Body Mass Index 35.7 Tobacco/Smoking Status: Tobacco use Status Tobacco use date assessed 09/27/24 09/27/24 12:55 Patient Tobacco Use Status Never used Tobacco 09/27/24 12:55 e-Cigarette/Vaping Use Never Used 09/27/24 12:55 Thrive Assessment: Date of Thrive Assessment Date Thrive assessed 09/27/24 09/27/24 12:55 Currently or been in a relationship where the following occur: I choose not to answer Const General: healthy appearing, no acute distress, alert and awake Nutritional Appearance: well nourished HENMT Ears: external ears normal General nose exam: Normal external nose present Eyes Conjunctivae: conjunctivae normal Sclerae: sclerae normal Pupils: Equal, round and reactive pupils present Neck Thyroid: Thyroid normal Chest Chest/axillae images: 2 1. left chest wound, healing, no s/sx of infection. Resp Effort & Inspection: normal respiratory effort and not tachypneic Auscultation: no crackles, no rales, no rhonchi and no wheezes Cardio Rate: regular rate Rhythm: regular rhythm Heart sounds: no murmurs and normal S1 and S2 Skin General skin exam: dry skin Wounds: wounds noted (left chest wound) Neuro Cranial nerves: Yes Equal, round and reactive pupils present Speech: No Abnormal speech present Gait exam (Neuro): Normal gait present Immunizations Boostrix Tdap 2.5 Lf unit-8 mcg-5 Lf/0.5 mL intramuscular syringe Performing Provider: NAEL Dietrich Performing Location: [facility] Administered by: Jannet Monzon CMA on 09/27/24 13:28 2 Dose Route Admin Location Dispensed Lot Number Expiration Date [facility] [employer] Plasma Etcher 0.5 mL IM Left Deltoid 0.5 mL [id number] 01/04/27 18428-723-02 [employer] 2 VIS Given Date VIS Provided VIS Publication Date 09/27/24 Single Vaccine 24 Eligibility Eligibility Date Funding Source Not [facility] Eligible 09/27/24 Private Coding Level of Care Code Est Pt Level 3 (40043) Diagnoses Open wound of left chest wall, sequela S21.102S Encounter type: sequela Time Spent (min) 32 Assessment & Plan Assessment & Plan (1) Open wound of left chest wall: Code(s): S21.102A - Unspecified open wound of left front wall of thorax without penetration into thoracic cavity, initial encounter Category: Medical Qualifiers: Encounter type: sequela Qualified Code(s): S21.102S - Unspecified open wound of left front wall of thorax without penetration into thoracic cavity, sequela Plan Wound is improving in appearance and healing. Cleansed and redressed the wound. After confirming the delays from the wound care clinic, I informed the patient that he would receive communication from the clinic to address continuity of care. Encouraged the patient to not itch the area and re-infecting the wound. Contact office if wounds worsens or not improving. Patient was informed and verbally consented to the use of an ambient scribe for clinic note documentation during this visit. Orders: Orders 2 TDaP Immunization Today S21.102S - Unspecified open wound of left front wall of thorax without penetration into thoracic cavity, sequela
--- OUTSIDE RECORDS SUMMARY | 2024-09-27 13:42 | XMS_ITS ---
Author Organization [facility] Address [address] [place] [address] Care Team Providers Care Maintenance Engineer Name Role Phone Fox Ku MD Primary Care Provider Tashi Bruno Unavailable [phone] Alisha Moore Unavailable Unavailable Allergies No Known [...] Problem Status W/U Status Risk Notes Problem 944849402 History of adenomatous polyp of colon (Z86.010) Active confirmed Problem 647871085 Colon cancer screening (Z12.11) Active confirmed Problem 627753595551666 Preprocedural examination (Z01.818) Active confirmed Problem 879708816 Gastroesophageal reflux disease without esophagitis (K21.9) Active confirmed Vital Signs Temperature 97.7 degrees Fahrenheit 04/17/20 23 Blood pressure systolic 00 mm Hg 04/17/20 23 Blood pressure diastolic 00 mm Hg 023 Height 67.75 in 04/17/2023 Weight 262 lbs 04/17/2023 BMI 40.13 kg/m2 04/17/2023 Encounters Encounter Location Date Provider Diagnosis [facility] [address] [place] [address] 04/17/2023 Tashi Currie Preprocedural examin ation Z01.818 [...] KIAN MAHMOOD ODOB: [birth year] (52 yo M)Acc No.[id number]:04/17/2023 Progress Notes Patient:?KIAN MAHMOOD Provider:?Tashi Currie MD :1970???Age:52 Y???Sex:Male Bravo e:04/17/2023 Address:[address] [place], [place] [id number] Pcp:Fox Ku MD Subjective: * Chief Complaints: [...] * Surgical History:?Mass remov ed--Dr. Fields at [facility]-- Benign , but had XRT 2009Right [...] Procedure Codes:?3017F COLOR ECTAL CA SCREEN DOC KTC5258V TOBACCO NON-[id number] BP SCR NOT PRFRM REC REASON NOS * Preventive Medicine:? ??Counseling:?Care goal follow-up plan:?Above Normal BMI Follow-up?Giving encouragement to exercise,?BMI management provided?Yes.? * Follow Up:?prn * * Sign off status: Completed true * Provider:?Tashi Currie MD Date:? 023 Generated for Jocelini nini/Mariia/eTransmitting on:?09/27/2024 01:41 PM EDT History and Physical Notes * [...]
--- OUTSIDE RECORDS SUMMARY | 2024-09-27 13:42 | XMS_ITS | Clinical Summary ---
Author Organization [facility] Address [address] [place] [address] Care Team Providers Care Cushion Builder Name Role Phone Unavailable Primary Care Provider [...]
--- OUTSIDE RECORDS SUMMARY | 2024-09-27 13:42 | XMS_ITS ---
Author Organization [facility] Address [address] [place] [address] Care Team Providers Care Concession Worker Name Role Phone Fox Ku MD Primary Care Provider Tashi Bruno [phone] Alisha Moore Unavailable Unavailable REASON FOR VISIT [...] Diagnosis [facility] [address] [place] [address] 04/17/2023 Tashi Currie Plan Of Treatment Medication [...] KIAN MAHMOOD ODOB: [birth year] (52 yo M)Acc No.[id number]:04/17/2023 Patient:?KIAN MAHMOOD O :1970???Age:52 Y???Sex:Male Address:[address] [place] [address] * Refills? Start MiraLax (colon prep) Powder, [...] * true * Date:? Generated for Chilo terrazas/Mariia/eTharikaitting on:?09/27/2024 01:42 PM EDT
--- OUTSIDE RECORDS SUMMARY | 2024-09-27 13:42 | XMS_ITS | Clinical Summary ---
Author Organization [employer] Address [address] [place] [address] [address] [place] [address] Care Team Providers Care Fretted Instrument Repairer Name Role Phone Unavailable Primary Care Provider Unavailabl e Social History Tobacco Use Types Packs/Day Years Used Date Smoking Tobacco: Never Assessed Sex and Gender Information Value Date Recorded Sex Assigned at Male 03/10/2022 10:33 AM EDT Legal Sex Male 10:33 AM EDT Gender Identity Male 09/20/2024 9:45 AM EDT Sexual Orientation Straight 09/20/2024 9: 45 AM EDT Plan of Treatment Upcoming Encounters Date Type Department Care Team (Late st Contact Info) Description 10/24/2024 10:00 AM EDT Office Visit [facility] [address] [place] [address] Perez Romero DDS [address] [place] [address] Health Maintenance Due Date Last Done Comments CT Colonography 1970 Colonoscopy 1970 Colorectal Cancer Screening 1970 Depression Screening 1970 FIT DNA/Cologuard 1970 FIT 1970 FOBT 1970 HIV Screening 1970 Lipid Panel 1970 SDOH Screening 1970 Sigmoidoscopy 1970 Disability Screening 1970 Alcohol/Substance Use Screening 1982 Tobacco Screening 1982 Hepatitis C Screening 1988 Pneumococcal Vaccine: 50+ Years (2 of 2 - PCV) 2020 10/04/2015 Zoster Vaccines (1 of 2) 2020 Hepatitis B Vaccines (2 of 2 - CpG 2-dose series) 09/01/2024 08/04/2024 DTaP/Tdap/Td Vaccines (2 - Td or Tdap) 04/09/2026 04/09/2016 RSV Patients and Patients Aged 60 years or older (1 - 1-dose 75+ series) 2045 COVID-19 Vaccine Completed 03/21/2024, , 06/05/2020 Influenza Vaccine Completed 04/29/2024, , 02/22/2021, Additional history exists HIB Vaccines Aged Out No longer eligi ble based on patient's age to complete this topic HPV Vaccines Aged Out No longer eligi ble based on patient's age to complete this topic Hepatitis A Vaccines Aged Out No long er eligible based on patient's age to complete this topic IPV Vaccines Aged Out No longer eligi ble based on patient's age to complete this topic Meningococcal B Vaccine Aged Out No l onger eligible based on patient's age to complete this topic Meningococcal Vaccine Aged Out No anna farida eligible based on patient's age to complete this topic RSV under 20 months Aged Out No longe r eligible based on patient's age to complete this topic Rotavirus Vaccines Aged Out No longer eligible based on patient's age to complete this topic Insurance [facility] MED[facility] STAND ADULT
--- OUTSIDE RECORDS SUMMARY | 2024-09-27 13:42 | XMS_ITS | Clinical Summary ---
Author Organization [facility] Address [address] [place] [address] Care Team Providers Care Plastic Production Machine Setter Name Role Phone Bon Arvizu MD Primary Care Provider [phone] Allergies No known active allergies Medications Ventolin [...] Visit [facility] [address] [place] [address] Tashi Bonner MD Stage 3b chronic kidney disease (HCC) (Primary Dx) 07/27/2024 Orders Only [facility] [address] [place] [address] Tashi Bonner [...] Visit [facility] [address] [place] [address] Tashi Bonner MD [address] [facility] [address] [place] [address] Health Maintenance Due Date Last [...] Vaccine (Season Ended) 2025 Insurance Care Teams Plastic Production Machine Setter Relationship Specialty Start Date End Date Bon Arvizu MD [address] [place] [address] [address] [place] [address] PCP - General Internal Medicine 06/04/22
--- OUTSIDE RECORDS SUMMARY | 2024-09-27 13:42 | XMS_ITS | Patient Health Record ---
Author Organization [facility] Address [address] [place] [address] Care Team Providers Care Asset Protection Associate Name Role Phone Fox Ku MD Primary Care Provider Briana Tashi Erwin Unavailable [phone] Alisha Moore Unavailable Unavailable Allergies No Known [...] Problem Status W/U Status Risk Notes Problem 604069264 Colon cancer screening (Z12.11) Active confirmed Problem 648195482 History of adenomatous polyp of colon (Z86.010) Active confirmed Problem Diverticulosis o f large intestine without perforation or abscess without bleeding (K57.30) Active confirmed Problem 496155596 Gastroesophageal reflux disease without esophagitis (K21.9) Active confirmed Problem 883927970699435 Preprocedural examination (Z01.818) Active confirmed Problem 65659977 Iron deficiency anemia, unspecified iron deficiency anemia [...] Coverage End Date [facility] [address] [address] [place], [place] [id number] KIAN MAHMOOD Self - patient is the insured MEDICAID OF [facility] [address] [place] [address] [id number] KIAN MAHMOOD Self - patient is the insured Medical (General) History Medical History History ICD Code IDDM Hypertension Heart murmur-Dr. Collins Asthma/COPD- Dr. Correa Pulmonary embolus in 2016--on Coumadin-- sees Dr. Dulala Lung mass--surgery in 2008 a s below, with XRT; biopsied in approx 2015 and benign--followed by Dr. Tino Cristobalies [place],CVA,renal disease GERD--upper endoscopy August of 2017 [...] History Surgery Date(Month/Year) Mass removed--Dr. Fields at [facility]-- Be nign , but had XRT 2008 Right inguinal hernia 1990 Ear tubes/Adenoids
--- OUTSIDE RECORDS SUMMARY | 2024-09-27 13:42 | XMS_ITS | Encounter Summary ---
Author Organization [facility] Address [address] [place] [address] Care Team Providers Care Industrial Economist Name Role Phone Unavailable Primary Care Provider Unavailabl e Encounter Details Date Type Department Care Team (Late st Contact Info) Description 12/23/2021 Scanned Document [facility] [address] [place] [phone] Gastroenterology, Scan Social History Tobacco Use Types [...]
--- OUTSIDE RECORDS SUMMARY | 2024-09-27 13:43 | XMS_ITS ---
Author Organization [facility] Address [address] [place] [address] Care Team Providers Care Towboat Captain Name Role Phone Fox Ku MD Primary Care Provider aTshi Bruno [phone] Alisha Moore Unavailable Unavailable REASON FOR VISIT screening,hx polyps Problems Problem Type SNOMED Code ICD Code Onset Dates Problem Status W/U Status Risk Notes Problem Diverticulosis o f large intestine without perforation or abscess without bleeding (K57.30) Active confirmed Encounters Encounter Location Date Provider Diagnosis [facility] [address] [place], [place] [id number] 07/13/2023 Tashi Currie Encounter for scre ening [...] KIAN MAHMOOD ODOB: [birth year] (54 yo M)Acc No.[id number]:07/13/2023 COLON WITH MAC Patient:?KIAN MAHMOOD Provider:?Tashi Currie MD :1970???Age:52 Y???Sex:Male Bravo e:07/13/2023 Address:[address] [place] [address] , [id number] Pcp:Fox Ku MD Subjective: * Chief Complaints: * ???1. Screening,hx polyps. * Medical History:? Objective: * Vitals:? Assessment: * Assessment: 1.?Encounter for screening c olonoscopy - Z12.11 (Primary)???2.?Colon polyps - K63.5???3.?Diverticulosis of large intestine without perforation or abscess without bleeding - K57.30???4.?Other hemorrhoids - K64.8??? Plan: * Treatment: * Procedure Codes:?84020 COLON OSCOPY AND BIOPSY, Modifiers: 33 * * The named appointment provid er may or may not be the originator of this progress note, and it is not deemed complete until electronically signed by the appointment provider. Sign off status: Pending * Provider:?Tashi Currie MD Date:? 024 Generated for Chilo terrazas/Mariia/eTransmitting on:?09/27/2024 01:42 PM EDT
== END 2024-09-27 14:17 | disposition home or self-care (01) ==
LOC: HO.HMCH 12:38
PROVIDERS: PCP Internal Medicine
DX: S21.102S Unspecified open wound of left front wall of thorax without penetration into thoracic cavity, sequela (principal)

== ENCOUNTER → 2024-09-27 12:37 | Outpatient (BNVA) | payer OTHER, SELFPAY | PROVIDERS: PCP Internal Medicine | DX: S21.102S Unspecified open wound of left front wall of thorax without penetration into thoracic cavity, sequela (principal); X58.XXXS Exposure to other specified factors, sequela; Z23 Encounter for immunization | CPT/HCPCS: 90471; 90715; 99212 ==

== ENCOUNTER 2024-09-29 13:02 | Outpatient (AMB) | payer OTHER, SELFPAY ==
--- OUTSIDE RECORDS SUMMARY | 2024-09-29 13:05 | XMS_ITS | Encounter Summary ---
Author Organization [facility] Address [address] [place] [address] Care Team Providers Care Engineering Secretary Name Role Phone Unavailable Primary Care Provider Unavailabl e Encounter Details Date Type Department Care Team (Late st Contact Info) Description 12/23/2021 Scanned Document [facility] [address] [place] [id number] Gastroenterology, Scan Social History Tobacco Use Types [...]
--- OUTSIDE RECORDS SUMMARY | 2024-09-29 13:05 | XMS_ITS | Patient Health Record ---
Author Organization [facility] Address [address] [place] [address] Care Team Providers Care Smelter Liner Name Role Phone Fox Ku MD Primary Care Provider Briana Tashi Erwin Unavailable [phone] Alisha Moore Unavailable Unavailable Allergies No Known [...] Problem Status W/U Status Risk Notes Problem 131058114 Colon cancer screening (Z12.11) Active confirmed Problem 597185526 History of adenomatous polyp of colon (Z86.010) Active confirmed Problem Diverticulosis o f large intestine without perforation or abscess without bleeding (K57.30) Active confirmed Problem 148086158 Gastroesophageal reflux disease without esophagitis (K21.9) Active confirmed Problem 223241131410455 Preprocedural examination (Z01.818) Active confirmed Problem 03898750 Iron deficiency anemia, unspecified iron deficiency anemia type (D50.9) Active confirmed Plan Of Treatment Pending Test Test Name Order Date Pathology 07/13/2023 Future Test Test Name Order Date UPPER GI ENDOSCOPY 06/23/2017 COLONOSCOPY 06/23/2017 COLONOSCOPY 04/17/2023 Insurance Providers Payer Name Payer Address Payer Phone Subscriber Number Group Number Insured Name Patient Relationship to Insured Coverage Start Date Coverage End Date [facility] [address] [address] [place], [place] [id number] KIAN MAHMOOD Self - patient is the insured MEDICAID OF [facility] [address] [place] [address] [id number] KIAN MAHMOOD Self - patient is the insured Medical (General) History Medical History History ICD Code IDDM Hypertension Heart murmur-Dr. Collins Asthma/COPD- Dr. Correa Pulmonary embolus in 2016--on Coumadin-- sees Dr. Dulala Lung mass--surgery in 2008 a s below, with XRT; biopsied in approx 2015 and benign--followed by Dr. Tino Cristobalies [place],CVA,renal disease GERD--upper endoscopy August of 2017 with [...] History Surgery Date(Month/Year) Mass removed--Dr. Fields at [facility]-- Be nign , but had XRT 2008 Right inguinal hernia 1990 Ear tubes/Adenoids
--- OUTSIDE RECORDS SUMMARY | 2024-09-29 13:05 | XMS_ITS | Clinical Summary ---
Author Organization [facility] Address [address] [place] [address] Care Team Providers Care Prototype Fabricator Name Role Phone Bon Arvizu MD Primary Care Provider [phone] Allergies No known active allergies Medications Ventolin [...] Visit [facility] [address] [place] [address] Tashi Bonner MD Stage 3b chronic kidney disease (HCC) (Primary Dx) 07/27/2024 Orders Only [facility] [address] [place] [address] Tashi Bonner [...] Visit [facility] [address] [place] [address] Tashi Bonner MD [address] [facility] [address] [place] [address] Health Maintenance Due Date Last [...] Vaccine (Season Ended) 2025 Insurance Care Teams Prototype Fabricator Relationship Specialty Start Date End Date Bon Arvizu MD [address] [place] [address] [address] [place] [address] PCP - General Internal Medicine 06/04/22
--- OUTSIDE RECORDS SUMMARY | 2024-09-29 13:05 | XMS_ITS | Clinical Summary ---
Author Organization [facility] Address [address] [place] [address] Care Team Providers Care Lube Worker Name Role Phone Unavailable Primary Care [...]
--- OUTSIDE RECORDS SUMMARY | 2024-09-29 13:05 | XMS_ITS ---
Author Organization [facility] Address [address] [place] [address] Care Team Providers Care Campaign Management Senior Manager Name Role Phone Fox Ku MD Primary Care Provider Tashi Bruno Unavailable [phone] Alisha Moore Unavailable Unavailable Allergies No Known [...] Problem Status W/U Status Risk Notes Problem 411390336 History of adenomatous polyp of colon (Z86.010) Active confirmed Problem 224264729 Colon cancer screening (Z12.11) Active confirmed Problem 429020216008901 Preprocedural examination (Z01.818) Active confirmed Problem 857023063 Gastroesophageal reflux disease without esophagitis (K21.9) Active confirmed Vital Signs Temperature 97.7 degrees Fahrenheit 04/17/20 23 Blood pressure systolic 00 mm Hg 04/17/20 23 Blood pressure diastolic 00 mm Hg 023 Height 67.75 in 04/17/2023 Weight 262 lbs 04/17/2023 BMI 40.13 kg/m2 04/17/2023 Encounters Encounter Location Date Provider Diagnosis [facility] [address] [place] [address] 04/17/2023 Tashi Currie Preprocedural examin ation Z01.818 [...] KIAN MAHMOOD ODOB: [birth year] (52 yo M)Acc No.[id number]:04/17/2023 Progress Notes Patient:?KIAN MAHMOOD Provider:?Tashi Currie MD :1970???Age:52 Y???Sex:Male Bravo e:04/17/2023 Address:[address] [place], [place] [id number] Pcp:Fox Ku MD Subjective: * Chief Complaints: [...] * Surgical History:?Mass remov ed--Dr. Fields at [facility]-- Benign , but had XRT [...] Procedure Codes:?3017F COLOR ECTAL CA SCREEN DOC [id number] TOBACCO NON-EGCLY2137 BP SCR NOT PRFRM REC REASON NOS * Preventive Medicine:? ??Counseling:?Care goal follow-up plan:?Above Normal BMI Follow-up?Giving encouragement to exercise,?BMI management provided?Yes.? * Follow Up:?prn * * Sign off status: Completed true * Provider:?Tashi Currie MD Date:? 023 Generated for Chilo terrazas/Mariia/eTransmitting on:?09/29/2024 01:05 PM EDT History and Physical Notes * [...]
--- OUTSIDE RECORDS SUMMARY | 2024-09-29 13:06 | XMS_ITS ---
Author Organization [facility] Address [address] [place] [address] Care Team Providers Care Forest Worker Name Role Phone Fox Ku MD Primary Care Provider Tashi Bruno [phone] Alisha Moore Unavailable Unavailable REASON FOR VISIT [...] Active Encounters Encounter Location Date Provider Diagnosis [facility] [address] [place] [address] 04/17/2023 Tashi Currie Plan Of Treatment Medication [...] KIAN MAHMOOD ODOB: [birth year] (52 yo M)Acc No.[id number]:04/17/2023 Patient:?KIAN MAHMOOD O :1970???Age:52 Y???Sex:Male Address:[address] [place] [address] * Refills? Start MiraLax (colon prep) Powder, [...] true * Date:? Generated for Chilo terrazas/Mariia/Kavyaitting on:?09/29/2024 01:05 PM EDT
--- OUTSIDE RECORDS SUMMARY | 2024-09-29 13:06 | XMS_ITS ---
Author Organization [facility] Address [address] [place] [address] Care Team Providers Care Computer Video Game Designer Name Role Phone Fox Ku MD Primary Care Provider Tashi Bruno [phone] Alisha Moore Unavailable Unavailable REASON FOR VISIT screening,hx polyps Problems Problem Type SNOMED Code ICD Code Onset Dates Problem Status W/U Status Risk Notes Problem Diverticulosis o f large intestine without perforation or abscess without bleeding (K57.30) Active confirmed Encounters Encounter Location Date Provider Diagnosis [facility] Outpatient [address] [place], [place] [id number] 07/13/2023 Tashi Currie Encounter for scre ening [...] KIAN MAHMOOD ODOB: [birth year] (54 yo M)Acc No.[id number]:07/13/2023 COLON WITH MAC Patient:?KIAN MAHMOOD Provider:?Tashi Currie MD :1970???Age:52 Y???Sex:Male Bravo e:07/13/2023 Address:[address] [place] [address] , [place], [place] Pcp:Fox Ku MD Subjective: * Chief Complaints: * ???1. Screening,hx polyps. * Medical History:? Objective: * Vitals:? Assessment: * Assessment: 1.?Encounter for screening c olonoscopy - Z12.11 (Primary)???2.?Colon polyps - K63.5???3.?Diverticulosis of large intestine without perforation or abscess without bleeding - K57.30???4.?Other hemorrhoids - K64.8??? Plan: * Treatment: * Procedure Codes:?81479 COLON OSCOPY AND BIOPSY, Modifiers: 33 * * The named appointment provid er may or may not be the originator of this progress note, and it is not deemed complete until electronically signed by the appointment provider. Sign off status: Pending * Provider:?Tashi Currie MD Date:? 024 Generated for Chilo terrazas/Mariia/eTransmitting on:?09/29/2024 01:05 PM EDT
[2024-09-29 13:14] VITALS: BP 130/78; PULSE 61; O2SAT 94; BMI 35.9
--- NOTE | 2024-09-29 13:14 | MHC.OFFVIS ---
Vital Signs 09/29/24 13:14 Height 5 ft 8 in Weight 235 lb 14.314 oz BMI 35.9 BP 130/78 Blood Pressure Location Lt brachial Position Sitting Pulse 61 Pulse Source Pulse Oximeter Pulse Oximetry (%) 94 Oxygen Delivery Method Room Air Intake Visit Reasons: copd Intake Note: pt is here for follow up and states he is doing the same Instructional Technology Instructor Required: No Allergies pollen extracts [POLLEN] Allergy (Mild, Verified 09/29/24 13:38) RUNNY NOSE cat dander [CATS] Allergy (Unknown, Verified 09/29/24 13:38) UNKNOWN dog dander [DOGS] Allergy (Unknown, Verified 09/29/24 13:38) UNKNOWN mold [MOLD] Allergy (Unknown, Verified 09/29/24 13:38) UNKNOWN Medication List - Last Reconciled 09/29/24 by Bryant Correa MD albuterol sulfate 90 mcg/actuation (Ventolin HFA) 2 puffs inhalation Q4-6H PRN aripiprazole (Abilify) 5 mg PO DAILY atenolol 25 mg PO DAILY atorvastatin (Lipitor) 40 mg PO DAILY [BD Estrella 2 GEN Pen NDL 32G 4mm As directed] benztropine 0.5 mg PO BID 30 days blood sugar diagnostic (FreeStyle Lite Strips) As directed- BID blood-glucose meter (FreeStyle Lite Meter kit) As directed- BID bupropion HCl XL (Wellbutrin XL) 150 mg PO QAM cholecalciferol (vitamin D3) 50 mcg PO DAILY 90 days docusate sodium 100 mg PO BEDTIME escitalopram oxalate mg PO DAILY ferrous sulfate 325 mg PO DAILY haloperidol 10 mg PO BEDTIME hydroxyzine HCl 25 mg PO TID PRN insulin glargine (Lantus Solostar U-100 Insulin) 15 units (0.15 mL) subcut QPM lancets (FreeStyle Lancets) As directed check blood sugar bid lancets (FreeStyle Lancets) As directed CHECK BLOOD SUGAR BID losartan 25 mg PO DAILY meclizine 25 mg PO TID PRN melatonin 6 mg PO BEDTIME metformin 1,000 mg PO BID 90 days omeprazole 40 mg PO DAILY pen needle, diabetic (UltiCare Pen Needle) As directed- Daily with Lantus pen tamsulosin (Flomax) 0.4 mg PO BEDTIME thiamine HCl (vitamin B1) 100 mg PO BID 90 days Do you need a note to return to daycare/school/sports/work: No HPI HPI copd: Details: THIS 54 YEARS OLD GENTLEMAN IS COMING ALMOST AFTER 1 YEAR FOR FOLLOW-UP. HE CLAIMS THAT THE BREATHING HAS BEEN STABLE WITHOUT ANY ACUTE EXACERBATION AND HE NEEDS TO USE VENTOLIN ONLY ONCE IN A WHILE. HE DENIES ANY COUGH CHEST PAIN OR WHEEZING. NASAL ALLERGIES OR ALSO MINIMAL AND HE HAS NOT NEEDED TO USE ANY MEDICATION. [facility] Medical History Psychosis Chest pain Suicidal ideation Recurrent major depression Allergic rhinitis Insomnia Palpitations Vitamin D deficiency Chronic kidney disease, stage III (moderate) GERD without esophagitis Restrictive lung disease Obesity (BMI 30-39.9) Benign essential hypertension Pure hypercholesterolemia Diabetes mellitus Pulmonary emboli Chondrosarcoma Hyperlipidemia Chronic restrictive lung disease COPD (chronic obstructive pulmonary disease) Asthma Surgical History History of esophagogastroduodenoscopy (EGD) H/O colonoscopy History of inguinal hernia repair Hx of exploratory thoracotomy H/O tooth extraction Family History Father Hypertension Kidney failure, acute Mother Lung cancer Family/Other Diabetes Social History Household Members: None Housing: Apartment Do you presently have visiting nurse or other home services: No Alcohol intake: never Patient Tobacco Use Status: Never used Tobacco e-Cigarette/Vaping Use: Never Used Second Hand Smoke Exposure: Yes service: No Current occupational status: unemployed Sexual orientation: Straight/Heterosexual Cognitive needs: No Hearing needs: No Vision needs: Yes (Glasses) Review of Systems Const All systems reviewed & are unremarkable except as noted in HPI and below Eyes Reports no additional complaints ENT Reports nasal congestion (Mild off and on) Card Denies chest pain, Denies irregular heart rhythm, Denies leg edema and Reports dyspnea on exertion Resp Reports as per HPI and Reports dyspnea on exertion GI Reports heartburn (Being treated for GERD with omeprazole) Reports no additional complaints Musc Reports back pain (Mild) and Reports other (Inter stitch sided chest wall pain) Skin/Breast Reports system reviewed and no additional complaints, except as documented Neuro Reports no additional complaints Psych Reports depression (Treated with med) Endo Reports other (Type 2 diabetes being treated with metformin) Physical Exam Vital Signs: Last Vital Signs Pulse 61 09/29/24 13:14 BP 130/78 09/29/24 13:14 Pulse Ox 94 09/29/24 13:14 Oxygen Delivery Method Room Air 09/29/24 13:14 BMI result Body Mass Index 35.9 Const General: cooperative, no acute distress, alert and awake Orientation/consciousness: patient oriented x3 HEENT Head: Yes normal to inspection General nose exam: No nasal polyps present and No nasal discharge present Face and sinus: Yes sinuses nontender Mouth: oropharynx normal Throat: Yes posterior oropharynx normal Eyes General: appearance normal, both eyes and all related structures Neck Neck: Yes normal visual inspection and Yes no JVD Thyroid: Thyroid normal Chest Other: Left chest wall abnormality status post remote surgery Chest palpation & inspection: normal inspection of the chest (Extensive scars on the left lower chest wall from previous surgery), normal palpation of entire chest wall and no tenderness Resp Other: Breath sounds are markedly diminished over the left lower lung . Percussion note is resonant on the right side, with decreased breath sounds, but no wheezes or rhonchi are heard. Effort & Inspection: normal respiratory effort, able to speak in complete sentences and not labored Auscultation: clear to auscultation bilaterally, no crackles, no rales, no rhonchi and no wheezes Cardio Palpation: normal PMI Rate: regular rate Rhythm: regular rhythm Heart sounds: S1 normal heart sound present and S2 normal heart sound present Peripheral pulses: Peripheral pulses 2+ throughout GI Inspection: Yes normal to inspection Palpation (GI): Soft to palpation, nontender, No hepatosplenomegaly present and no masses Auscultation: normal bowel sounds Back/Spine/Pelvis Thoracic/Lumbar Spine: thoracic and lumbar spine normal to inspection and thoraco-lumbar ROM limited Skin General skin exam: no rashes or lesions noted Neuro General: patient oriented x3 Cranial nerves: Yes CN's II-XII intact bilaterally Extrem General: Yes normal to inspection and No edema Psych Appearance: grossly normal and well kempt Speech and movement: Normal speech and movement present Assessment & Plan Assessment & Plan (1) Asthma: Comment: See under Asthma /COPD , IT IS FAIRLY WELL CONTROLLED AT THIS TIME Code(s): J45.909 - Unspecified asthma, uncomplicated Category: Medical Qualifiers: Asthma severity: unspecified severity Asthma persistence: unspecified Asthma complication type: unspecified Qualified Code(s): J45.909 - Unspecified asthma, uncomplicated Plan: SEE UNDER COPD (2) COPD (chronic obstructive pulmonary disease): Comment: THE PULMONARY FUNCTION TEST DID NOT SHOW CHRONIC OBSTRUCTIVE PULMONARY DISEASE. IF AT ALL IT IS MILD. PATIENT HAS INTERMITTENT COUGH WHICH MAY BE DUE TO UPPER AIRWAY ALLERGIES OR MILD BRONCHIAL ASTHMA. Code(s): J44.9 - Chronic obstructive pulmonary disease, unspecified Category: Medical Plan: ALBUTEROL HFA 2 PUFFS Q 6 HOURS P.R.N. (3) Chronic restrictive lung disease: Comment: CHRONIC RESTRICTIVE LUNG DISEASE SECONDARY TO, PAST 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 GROSS OBESITY ALSO CONTRIBUTES TO RESTRICTIVE DISORDER. Code(s): J98.4 - Other disorders of lung Category: Medical Plan: PATIENT IS AWARE OF THIS PROBLEM. ADVISED TO KEEP HIS. WEIGHT UNDER CONTROL ADVISED TO DO DEEP BREATHING EXERCISES 2 OR 3 TIMES A DAY. Coding Level of Care Code Est Pt Level 3 (13855) Diagnoses Asthma, unspecified asthma severity, unspecified whether complicated, unspecified whether persistent J45.909 Asthma severity: unspecified severity Asthma persistence: unspecified Asthma complication type: unspecified COPD (chronic obstructive pulmonary disease) J44.9 Chronic restrictive lung disease J98.4
== END 2024-09-29 13:56 | disposition home or self-care (01) ==
LOC: HO.HPS 13:03
PROVIDERS: PCP Internal Medicine; Visit Provider Internal Medicine
DX: J45.909 Unspecified asthma, uncomplicated (principal); J44.9 Chronic obstructive pulmonary disease, unspecified; J98.4 Other disorders of lung
CPT/HCPCS: 99213

== ENCOUNTER → 2024-09-29 13:02 | Outpatient (BNVA) | payer OTHER, SELFPAY | PROVIDERS: PCP Internal Medicine; Visit Provider Internal Medicine | DX: J45.909 Unspecified asthma, uncomplicated (principal); J44.9 Chronic obstructive pulmonary disease, unspecified; J98.4 Other disorders of lung | CPT/HCPCS: 99212 ==

== ENCOUNTER 2024-09-30 16:48 | Emergency (ER) | payer OTHER, SELFPAY ==
--- NOTE | ~2024-09-30 | XR_ITS ---
CLINICAL HISTORY: dyspnea Two views of the chest. COMPARISON: XR chest dated 08/16/24 at 12:30 EDT XR chest dated 07/16/24 at 15:41 EST FINDINGS: Normal heart and mediastinal contours. Similar appearance of eventration of the left hemidiaphragm with overlying atelectasis. Mild bronchial wall thickening. No definite pleural effusion. No pneumothorax. No acute fracture identified. IMPRESSION: 1. Mild bronchial wall thickening. 2. Similar mild eventration of the left hemidiaphragm with overlying atelectasis. This document has been electronically signed by: Daniel Andersen MD on 09/30/2024 18:18:44
--- NOTE | 2024-09-30 16:49 | ED_ITS ---
HPI - General Adult General Chief complaint: Chest Pain Stated complaint: Chest Pain, Difficulty Breathing Time Seen by Provider: 09/30/24 18:12 Source: patient Limitations: no limitations History of Present Illness ED Provider: Sherin Bennett PA-C HPI narrative: 53-year-old male with a history of chronic chest pain,depression, prior psychosis, suicidal ideation, anxiety, asthma, COPD, hyperlipidemia, diabetes, hypertension, obesity, chronic kidney disease, who is well known to our emergency department given he is a high utilizer of resources, today being his 25th visit since June 09, presents with CP. pain over central chest, unable to describe the nature of his discomfort. Patient states his heart is racing; on the monitor his rate is 66. Denies recent cough or cold symptoms. Related Data Home Medications ?Medication ?Instructions ?Recorded ?Confirmed ferrous sulfate 325 mg (65 mg 325 mg PO DAILY 06/17/24 09/29/24 iron) tablet melatonin 3 mg tablet 6 mg PO BEDTIME 06/17/24 09/29/24 omeprazole 40 mg capsule,delayed 40 mg PO DAILY 06/17/24 09/29/24 release escitalopram oxalate 20 mg tablet mg PO DAILY 07/22/24 09/29/24 losartan 25 mg tablet 25 mg PO DAILY 09/13/24 09/29/24 Previous Rx's ?Medication ?Instructions ?Recorded cholecalciferol (vitamin D3) 50 50 mcg PO DAILY 90 days #90 caps 10/06/23 mcg (2,000 unit) capsule docusate sodium 100 mg capsule 100 mg PO BEDTIME #30 caps 06/02/24 benztropine 0.5 mg tablet 0.5 mg PO BID 30 days #60 tabs 06/16/24 aripiprazole 5 mg tablet (Abilify) 5 mg PO DAILY #7 tabs 06/28/24 atenolol 25 mg tablet 25 mg PO DAILY #7 tabs 06/28/24 atorvastatin 40 mg tablet (Lipitor) 40 mg PO DAILY #7 tabs 06/28/24 bupropion HCl 150 mg 24 hr tablet, 150 mg PO QAM #7 tabs 06/28/24 extended release (Wellbutrin XL) haloperidol 10 mg tablet 10 mg PO BEDTIME #7 tabs 06/28/24 tamsulosin 0.4 mg capsule (Flomax) 0.4 mg PO BEDTIME #7 caps 06/28/24 meclizine 25 mg tablet 25 mg PO TID PRN dizziness #20 tabs 07/01/24 lancets 28 gauge (FreeStyle #100 ea 07/22/24 Lancets) lancets 28 gauge (FreeStyle #100 ea 07/23/24 Lancets) blood sugar diagnostic (FreeStyle #100 ea 07/25/24 Lite Strips) blood-glucose meter (FreeStyle #1 ea 07/25/24 Lite Meter kit) insulin glargine 100 unit/mL (3 15 unit (0.15 mL) subcut QPM #3 mL 08/29/24 mL) subcutaneous pen (Lantus Solostar U-100 Insulin) metformin 1,000 mg tablet 1,000 mg PO BID 90 days #180 tabs 08/29/24 albuterol sulfate 90 mcg/actuation 2 puff inhalation Q4-6H PRN for 08/30/24 aerosol inhaler (Ventolin HFA) wheezing #18 ea hydroxyzine HCl 25 mg tablet 25 mg PO TID PRN anxiety #20 tabs 09/13/24 BD Estrella 2 GEN Pen NDL 32G 4mm #1 ea 09/21/24 thiamine HCl (vitamin B1) 100 mg 100 mg PO BID 90 days #180 tabs 09/21/24 tablet pen needle, diabetic 32 gauge x #100 ea 09/26/24/32 (UltiCare Pen Needle) Allergies Allergy/AdvReac Type Severity Reaction Status Date / Time pollen extracts [POLLEN] Allergy Mild RUNNY NOSE Verified 09/30/24 17:02 cat dander [CATS] Allergy Unknown UNKNOWN Verified 09/30/24 17:02 dog dander [DOGS] Allergy Unknown UNKNOWN Verified 09/30/24 17:02 mold [MOLD] Allergy Unknown UNKNOWN Verified 09/30/24 17:02 Review of Systems 2 Review of Systems: Yes all other systems are reviewed and are negative Constitutional: Constitutional: Denies fatigue and Denies fever(s) Cardiovascular: Cardiovascular: Reports chest pain, Reports palpitations and Denies dyspnea Respiratory: Respiratory: Denies cough, Denies dyspnea and Denies wheezing Gastrointestinal: Gastrointestinal: Denies abdominal pain, Denies nausea and Denies vomiting Endocrine: Endocrine: Denies fatigue and Reports palpitations Allergic/Immunologic: Allergic/Immunologic: Denies wheezing PMFSH Past Medical History Attestation statement: The following information was validated with the patient. Medical History Psychosis Chest pain Suicidal ideation Recurrent major depression Allergic rhinitis Insomnia Palpitations Vitamin D deficiency Chronic kidney disease, stage III (moderate) GERD without esophagitis Restrictive lung disease Obesity (BMI 30-39.9) Benign essential hypertension Pure hypercholesterolemia Diabetes mellitus Pulmonary emboli Chondrosarcoma Hyperlipidemia Chronic restrictive lung disease COPD (chronic obstructive pulmonary disease) Asthma Surgical History History of esophagogastroduodenoscopy (EGD) H/O colonoscopy History of inguinal hernia repair Hx of exploratory thoracotomy H/O tooth extraction Family History Family History Father Hypertension Kidney failure, acute Mother Lung cancer Family/Other Diabetes Social History Social History Household Members: None Housing: Apartment Do you presently have visiting nurse or other home services: No Alcohol intake: never Patient Tobacco Use Status: Never used Tobacco Smoked in Last 30 Days: No e-Cigarette/Vaping Use: Never Used Second Hand Smoke Exposure: Yes Use of substances other than those prescribed or required for medical reasons: No Advance Directives: No Advance Directives Information Provided: No service: No Current occupational status: unemployed Sexual orientation: Straight/Heterosexual Cognitive needs: No Hearing needs: No Vision needs: Yes (Glasses) Physical Exam ED Vital Signs: Vital Signs - 24 hr 09/30/24 17:01 09/30/24 19:25 Temperature 98.9 F 97.8 F Pulse Rate 65 56 Respiratory Rate 18 12 Blood Pressure 165/78 H 162/78 H Pulse Oximetry 97 93 Oxygen Delivery Method Room Air Room Air BMI result Body Mass Index 35.6 Const Other: Alert, appears older than stated age, disheveled Orientation/consciousness: patient oriented x3 Resp Effort & Inspection: normal respiratory effort Cardio Other: normal peripheral perfusion Skin Other: warm dry no rash Neuro General: patient oriented x3, gait normal, no focal motor deficits and CN's II- XI intact bilaterally Psych Other: cooperative Course Course Course Narrative: RME, this is a rapid medical exam performed by Butch Zavaleta please refer to primary provider for complete H&P- Medical Decision Making Medical Decision Making MDM Narrative: 53-year-old male with a history of chronic chest pain,depression, prior psychosis, suicidal ideation, anxiety, asthma, COPD, hyperlipidemia, diabetes, hypertension, obesity, chronic kidney disease, who is well known to our emergency department given he is a high utilizer of resources, today being his 25th visit since June 09, presents with CP. pain over central chest, unable to describe the nature of his discomfort. Patient states his heart is racing; on the monitor his rate is 66. Denies recent cough or cold symptoms. problem: Chronic chest pain, anxiety, depression, diabetes, chronic kidney disease, hypertension, hyperlipidemia History: Per patient I have considered the following differential diagnoses: ACS, malingering, anxiety, COPD exacerbation, viral syndrome, palpitations, new arrhythmia Plan: ACS was considered, the patient has numerous risk factors for coronary artery disease, screening labs including cardiac enzymes EKG and chest x-ray were obtained. His 1st troponin is at his baseline, we will obtain a delta trop. The patient insists that his heart is racing, objectively, on the monitor he is 66 beats per minute. The patient has poorly controlled anxiety at baseline. Thought about underlying potential infectious sources for his symptoms, however he denies. Viral panel was ordered it was negative. I have independently reviewed the following tests: Labs:No leukocytosis, not anemic, no electrolyte abnormality, troponin 5.5, delta troponin 6.6 viral panel negative EKG: normal sinus rhythm, rate of 66, nonspecific T-wave abnormalities, no ectopy, QTC 467 Chest x-ray: FINDINGS: Normal heart and mediastinal contours. Similar appearance of eventration of the left hemidiaphragm with overlying atelectasis. Mild bronchial wall thickening. No definite pleural effusion. No pneumothorax. No acute fracture identified. IMPRESSION: 1. Mild bronchial wall thickening. 2. Similar mild eventration of the left hemidiaphragm with overlying atelectasis. Lab Data 09/30/24 17:19 09/30/24 17:19 Labs: Lab Results 09/30/24 09/30/24 Range/Units 17:19 18:57 WBC 4.6 L (4.8-10.8) X10*3/uL RBC 4.21 L (4.60-5.80) X10*6/uL Hgb 11.9 L (14.0-18.0) g/dl Hct 36.6 L (42.0-52.0) % MCV 86.9 (80.0-98.0) fL MCH 28.3 (27.0-33.0) pg MCHC 32.5 (31.0-36.0) g/dl RDW 14.1 (11.0-16.0) % Plt Count 238 (160-400) X10*3/uL MPV 11.0 (9.4-12.4) fL Immature Gran % (Auto) 0.0 (0.0-0.4) % Neut % (Auto) 60.1 (45-73) % Lymph % (Auto) 26.7 (20-40) % Mcculloch % (Auto) 9.3 (2-11) % Eos % (Auto) 3.0 (0-4) % Baso % (Auto) 0.9 (0-2) % Lymph # (Auto) 1.2 (1.2-4.9) X10*3/uL Mcculloch # (Auto) 0.4 (0.1-1.2) X10*3/uL Eos # (Auto) 0.1 (0.0-0.4) X10*3/uL Baso # (Auto) 0.0 (0.0-0.2) X10*3/uL Abs Immat Gran (auto) 0.00 (0.00-0.03) X10*3/uL Absolute Neuts (auto) 2.8 (2.0-8.3) x10*3/uL Absolute Nucleated RBC 0.000 (0.0-0.012) X10*3/uL Nucleated RBC % (auto) 0.0 (0.0-0.2) /100WBC Sodium 146 H (135-145) mmol/L Potassium 4.0 (3.3-5.1) mmol/L Chloride 107 (96-108) mmol/L Carbon Dioxide 31 H (22-29) mmol/L Anion Gap 12 (12-20) BUN 12 (9-16) mg/dL Creatinine 1.33 (0.5-1.4) mg/dL Estim Creat Clear Calc 75.0 Estimated GFR 56 Random Glucose 77 (60-115) mg/dL Calcium 9.1 (8.4-10.2) mg/dL Total Bilirubin 0.7 (0.0-1.0) mg/dL AST 21 (5-37) U/L ALT 13 (0-40) U/L Alkaline Phosphatase 81 (39-117) U/L Troponin I High Sens 5.5 6.6 (<3.5-35.0) ng/L Total Protein 6.7 (6.5-8.0) g/dL Albumin 4.0 (3.5-5.0) g/dL Influenza Type A (PCR) NEGATIVE (Negative) Influenza Type B (PCR) NEGATIVE (Negative) RSV RNA Qual (PCR) NEGATIVE (Negative) SARS-CoV-2 RNA (RT-PCR) NEGATIVE (Negative) Discharge Plan Discharge Clinical Impression: Chronic chest pain Patient Disposition: Home, Self-Care Instructions: Chronic Pain (ED), Noncardiac Chest Pain (ED) Additional Instructions: You were seen for your chronic chest pain. All of your screening labs including 2 cardiac enzymes were at your baseline, there were no concerning changes on the EKG in the chest x-ray is clear. Continue to follow up with your primary care provider. Prescriptions: No Action cholecalciferol (vitamin D3) 50 mcg (2,000 unit) capsule 50 mcg PO DAILY 90 Days Qty: 90 3RF (DME) FreeStyle Lite Strips Strip See Rx Instructions miscellaneous .MEDSUPPLY Qty: 100 0RF Rx Instructions: As directed- BID (DME) blood-glucose meter [FreeStyle Lite Meter] Kit See Rx Instructions .Route Qty: 1 0RF Rx Instructions: As directed- BID insulin glargine [Lantus Solostar U-100 Insulin] 100 unit/mL (3 mL) insulin pen 15 unit subcut QPM Qty: 3 0RF metformin 1,000 mg tablet 1,000 mg PO BID 90 Days Qty: 180 1RF albuterol sulfate [Ventolin HFA] 90 mcg/actuation HFA aerosol inhaler 2 puff inhalation Q4-6H PRN (Reason: for wheezing) Qty: 18 1RF (DME) BD Estrella 2 GEN Pen NDL 32G 4mm See Rx Instructions .Route .MEDSUPPLY Qty: 1 3RF Rx Instructions: As directed (DME) pen needle, diabetic [UltiCare Pen Needle] 32 gauge x 5/32 needle See Rx Instructions .Route Qty: 100 3RF Rx Instructions: As directed- Daily with Lantus pen docusate sodium 100 mg Capsule 100 mg PO BEDTIME Qty: 30 0RF benztropine 0.5 mg Tablet 0.5 mg PO BID 30 Days Qty: 60 0RF melatonin 3 mg tablet 6 mg PO BEDTIME ferrous sulfate 325 mg (65 mg iron) tablet 325 mg PO DAILY omeprazole 40 mg capsule,delayed release(DR/EC) 40 mg PO DAILY aripiprazole [Abilify] 5 mg tablet 5 mg PO DAILY Qty: 7 0RF atenolol 25 mg tablet 25 mg PO DAILY Qty: 7 0RF tamsulosin [Flomax] 0.4 mg capsule 0.4 mg PO BEDTIME Qty: 7 0RF atorvastatin [Lipitor] 40 mg tablet 40 mg PO DAILY Qty: 7 0RF haloperidol 10 mg tablet 10 mg PO BEDTIME Qty: 7 0RF bupropion HCl [Wellbutrin XL] 150 mg tablet extended release 24 hr 150 mg PO QAM Qty: 7 0RF meclizine 25 mg tablet 25 mg PO TID PRN (Reason: dizziness) Qty: 20 0RF escitalopram oxalate 20 mg tablet PO DAILY (DME) lancets [FreeStyle Lancets] 28 gauge misc See Rx Instructions miscellaneous .MEDSUPPLY Qty: 100 3RF Rx Instructions: As directed check blood sugar bid (DME) lancets [FreeStyle Lancets] 28 gauge misc See Rx Instructions miscellaneous .MEDSUPPLY Qty: 100 3RF Rx Instructions: As directed CHECK BLOOD SUGAR BID losartan 25 mg tablet 25 mg PO DAILY hydroxyzine HCl 25 mg tablet 25 mg PO TID PRN (Reason: anxiety) Qty: 20 0RF thiamine HCl (vitamin B1) 100 mg tablet 100 mg PO BID 90 Days Qty: 180 2RF Print Language: [place]
--- NOTE | 2024-09-30 16:50 | ECG_ITS ---
Test Reason : Chest Pain Blood Pressure : */* mmHG Vent. Rate : 66 BPM Atrial Rate : 66 BPM P-R Int : 134 ms QRS Dur : 104 ms QT Int : 446 ms P-R-T Axes : 33 37 -8 degrees QTcB Int : 467 ms Normal sinus rhythm Nonspecific T wave abnormality Prolonged QT Abnormal ECG When compared with ECG of 16-Aug-2024 12:13, Minimal criteria for Anterior infarct are no longer Present Inverted T waves have replaced nonspecific T wave abnormality in Inferior leads Referred By: Emile Zavaleta Electronically Signed By: Low Machado
[2024-09-30 17:01] VITALS: BP 165/78; PULSE 65; RESP 18; TEMP 37.2; O2SAT 97; BMI 35.6
[2024-09-30 17:25] LABS: Basophils Percent Auto 0.9 % (0-2); Eosinophils Absolute Auto 0.1 X10*3/uL (0.0-0.4); Hematocrit 36.6 % (42.0-52.0); Hemoglobin 11.9 g/dl (14.0-18.0); Lymphocytes Absolute Auto 1.2 X10*3/uL (1.2-4.9); Lymphocytes Percent Auto 26.7 % (20-40); MANUAL DIFF FLAG NO; Mean Corpuscular HGB Conc 32.5 g/dl (31.0-36.0); Mean Corpuscular Hemoglobin 28.3 pg (27.0-33.0); Mean Corpuscular Volume 86.9 fL (80.0-98.0); Monocytes Absolute Auto 0.4 X10*3/uL (0.1-1.2); Monocytes Percent Auto 9.3 % (2-11); Neutrophils Absolute Auto 2.8 x10*3/uL (2.0-8.3); Neutrophils Percent Auto 60.1 % (45-73); Platelet Count 238 X10*3/uL (160-400); Red Blood Count 4.21 X10*6/uL (4.60-5.80); Red Cell Distribution Width 14.1 % (11.0-16.0); White Blood Count 4.6 X10*3/uL (4.8-10.8)
[2024-09-30 17:41] LABS: Alanine Aminotransferase 13 U/L (0-40); Alkaline Phosphatase 81 U/L (39-117); Anion Gap 12 (12-20); Aspartate Amino Transferase 21 U/L (5-37); Bilirubin Total 0.7 mg/dL (0.0-1.0); Blood Urea Nitrogen 12 mg/dL (9-16); Calcium 9.1 mg/dL (8.4-10.2); Carbon Dioxide 31 mmol/L (22-29); Chloride 107 mmol/L (96-108); Estimated Glomerular Filt Rate 56; Glucose Random 77 mg/dL (60-115); Sodium 146 mmol/L (135-145); Total Protein 6.7 g/dL (6.5-8.0)
[2024-09-30 17:48] LABS: Troponin-I High Sensitivity 5.5 ng/L (<3.5-35.0)
[2024-09-30 18:05] LABS: Influenza A PCR NEGATIVE (Negative); Influenza B PCR NEGATIVE (Negative); Resp Syncy Virus RNA Qual PCR NEGATIVE (Negative); SARS COV2 PCR INHOUSE NEGATIVE (Negative)
[2024-09-30 19:25] VITALS: BP 162/78; PULSE 56; RESP 12; TEMP 36.6; O2SAT 93
[2024-09-30 19:31] LABS: Troponin-I High Sensitivity 6.6 ng/L (<3.5-35.0)
[2024-09-30 20:31] VITALS: BP 162/78; PULSE 56; RESP 12; TEMP 36.6; O2SAT 93
== END 2024-09-30 20:31 | disposition home or self-care (01) ==
PROVIDERS: Physician Assistant; Physician Assistant Medical; Emergency Provider Emergency Medicine Emergency Medical Services; PCP Internal Medicine
DX: R07.89 Other chest pain (principal); R06.02 Shortness of breath; Z79.899 Other long term (current) drug therapy; Z03.818 Encounter for observation for suspected exposure to other biological agents ruled out
CPT/HCPCS: 0241U; 36415; 71046; 80053; 84484; 85025; 93005; 99283; 99285

== ENCOUNTER → 2024-09-30 16:50 | Outpatient (BNV) | payer OTHER, SELFPAY | PROVIDERS: Emergency Provider Emergency Medicine Emergency Medical Services; PCP Internal Medicine; Visit Provider Internal Medicine Cardiovascular Disease | DX: R94.31 Abnormal electrocardiogram [ECG] [EKG] (principal); R07.9 Chest pain, unspecified | CPT/HCPCS: 93010 ==

== ENCOUNTER → 2024-09-30 17:06 | Outpatient (BNV) | payer OTHER, SELFPAY | PROVIDERS: PCP Internal Medicine; Visit Provider Radiology Diagnostic Radiology | DX: R06.00 Dyspnea, unspecified (principal) | CPT/HCPCS: 71046 ==

== ENCOUNTER 2024-10-12 11:46 | Outpatient (RCR) | payer OTHER, SELFPAY | END 2024-10-12 16:31 | disposition home or self-care (01) | LOC: HO.WCC 11:46 | PROVIDERS: PCP Internal Medicine; Visit Provider Surgery | DX: L91.0 Hypertrophic scar (principal); I12.9 Hypertensive chronic kidney disease with stage 1 through stage 4 chronic kidney disease, or unspecified chronic kidney disease; E11.22 Type 2 diabetes mellitus with diabetic chronic kidney disease; N18.30 Chronic kidney disease, stage 3 unspecified; Z79.4 Long term (current) use of insulin; Z79.84 Long term (current) use of oral hypoglycemic drugs; Z92.3 Personal history of irradiation | CPT/HCPCS: 99213 ==

== ENCOUNTER 2024-10-12 16:47 | Inpatient (IN) | payer OTHER, SELFPAY ==
[2024-10-12 16:52] VITALS: BP 173/76; PULSE 83; RESP 18; TEMP 36.1; O2SAT 95; BMI 34.7
--- NOTE | 2024-10-12 16:54 | ED_ITS ---
HPI - Psych General Chief Complaint: Psychiatric Symptoms Stated Complaint: SI Time Seen by Provider: 10/12/24 16:53 Source: patient Mode of arrival: ambulatory Limitations: no limitations History of Present Illness ED Provider: ERNESTO JESUS PA-C HPI Narrative: 54 year old male with pmhx significant for depression, prior psychosis, suicidal ideation, anxiety, asthma, COPD, hyperlipidemia, diabetes, hypertension, obesity, chronic kidney disease presents to the ED today for evaluation of suicidal ideation. Reports plan to either drown himself or get hit by a vehicle. Denies AH/VH/TH. Denies illicit substance use. Denies alcohol consumption. No physical complaints at present. Related Data Home Medications ?Medication ?Instructions ?Recorded ?Confirmed ferrous sulfate 325 mg (65 mg 325 mg PO DAILY 06/17/24 10/12/24 iron) tablet omeprazole 40 mg capsule,delayed 40 mg PO DAILY 06/17/24 10/12/24 release losartan 25 mg tablet 25 mg PO DAILY 09/13/24 10/12/24 betamethasone dipropionate 0.05 % 1 appl topical DAILY wound 10/12/24 10/12/24 topical cream cholecalciferol (vitamin D3) 50 50 mcg PO DAILY 10/12/24 10/12/24 mcg (2,000 unit) capsule insulin glargine 100 unit/mL (3 15 unit subcut DAILY 10/12/24 10/12/24 mL) subcutaneous pen (Lantus Solostar U-100 Insulin) Previous Rx's ?Medication ?Instructions ?Recorded atorvastatin 40 mg tablet (Lipitor) 40 mg PO DAILY #7 tabs 06/28/24 tamsulosin 0.4 mg capsule (Flomax) 0.4 mg PO BEDTIME #7 caps 06/28/24 metformin 1,000 mg tablet 1,000 mg PO BID 90 days #180 tabs 08/29/24 albuterol sulfate 90 mcg/actuation 2 puff inhalation Q4-6H PRN for 08/30/24 aerosol inhaler (Ventolin HFA) wheezing #18 ea hydroxyzine HCl 25 mg tablet 25 mg PO TID PRN anxiety #20 tabs 10/04/24 escitalopram oxalate 20 mg tablet 20 mg PO QAM #90 tabs 10/06/24 Allergies Allergy/AdvReac Type Severity Reaction Status Date / Time pollen extracts [POLLEN] Allergy Mild RUNNY NOSE Verified 10/12/24 16:53 cat dander [CATS] Allergy Unknown UNKNOWN Verified 10/12/24 16:53 dog dander [DOGS] Allergy Unknown UNKNOWN Verified 10/12/24 16:53 mold [MOLD] Allergy Unknown UNKNOWN Verified 10/12/24 16:53 Review of Systems 2 Review of Systems: Constitutional: No fever, chills, fatigue, night sweats, weight changes ENT/Mouth: No ear pain, hearing loss, nasal congestion, sinus pain, rhinorrhea, sore throat Eyes: No eye pain, swelling, redness, vision changes, discharge Cardio: No chest pain, palpitations, COLON, orthopnea, peripheral edema Pulm: No SOB, cough, sputum, wheezing, dyspnea, hemoptysis GI: No nausea, vomiting, hematemesis, abdominal pain, diarrhea, constipation, hematochezia, melena : No irregular bleeding, dysuria, frequency, urgency, hesitancy, hematuria, flank pain, urinary flow changes, urinary incontinence or retention MSK: No back pain, neck pain, joint pain, myalgias Skin: No lesions, rashes Neuro: No weakness, numbness, paresthesias, LOC, dizziness, headache Psych: No anxiety/panic, depression, +SI All other systems reviewed and are negative. [facility] Past Medical History Attestation statement: The following information was validated with the patient. Source: old records reviewed and nursing notes reviewed Medical History Psychosis Chest pain Suicidal ideation Recurrent major depression Allergic rhinitis Insomnia Palpitations Vitamin D deficiency Chronic kidney disease, stage III (moderate) GERD without esophagitis Restrictive lung disease Obesity (BMI 30-39.9) Benign essential hypertension Pure hypercholesterolemia Diabetes mellitus Pulmonary emboli Chondrosarcoma Hyperlipidemia Chronic restrictive lung disease COPD (chronic obstructive pulmonary disease) Asthma Surgical History History of esophagogastroduodenoscopy (EGD) H/O colonoscopy History of inguinal hernia repair Hx of exploratory thoracotomy H/O tooth extraction Family History Family History Father Hypertension Kidney failure, acute Mother Lung cancer Family/Other Diabetes Social History Social History Household Members: None Housing: Apartment Do you presently have visiting nurse or other home services: No Alcohol intake: never Patient Tobacco Use Status: Never used Tobacco Smoked in Last 30 Days: No e-Cigarette/Vaping Use: Never Used Second Hand Smoke Exposure: Yes Use of substances other than those prescribed or required for medical reasons: No Advance Directives: No Advance Directives Information Provided: Yes service: No Current occupational status: unemployed Sexual orientation: Straight/Heterosexual Cognitive needs: No Hearing needs: No Vision needs: Yes (Glasses) Physical Exam 2 Vital Signs: Vital Signs: Last Vital Signs Temp 96.9 F 10/12/24 16:52 Pulse 83 10/12/24 16:52 Resp 18 10/12/24 17:30 BP 173/76 H 10/12/24 16:52 Pulse Ox 95 10/12/24 16:52 O2 Del Method Room Air 10/12/24 16:52 BMI result Body Mass Index 34.7 hypertensive General: Well appearing, in no acute distress. Skin: Warm, dry, intact. No rashes or lesions. Head: Normocephalic, atraumatic. EENT: Hearing is intact b/l. Conjunctiva clear. Sclera is anicteric. PERRLA. EOM intact. Moist mucous membranes.? Cardiac: Chest wall symmetric Lungs: Normal respiratory effort without accessory muscle us Abdomen: Soft, non-tender, non-distended. No rebound tenderness or guarding. Positive BS x4. Back: No midline spinous or paraspinal tenderness. No step off deformity. Ext: Upper and lower extremities atraumatic, without tenderness, deformity, swelling or erythema Neuro: AOx3. Normal speech. CN 2-12 grossly intact. Ambulating with steady gait. Course Course Course Narrative: CBC without leukocytosis or left shift. Normocytic anemia, H and H stable when compared to priors. Chemistry without acute electrolyte abnormality requiring intervention. No TL. Liver function WNL. Urine without infection. Toxicology undetectable. Ethanol, acetaminophen and salicylates undetectable. > med rec reviewed and completed > physician observation initiated pending care team and disposition Medical Decision Making Medical Decision Making MDM Narrative: 54 year old male with pmhx significant for depression, prior psychosis, suicidal ideation, anxiety, asthma, COPD, hyperlipidemia, diabetes, hypertension, obesity, chronic kidney disease presents to the ED today for evaluation of suicidal ideation. Differential diagnosis includes anemia, electrolyte abnormality, mood disorder, anxiety, depression, SI, polysubstance abuse Presentation not consistent with acute organic causes to include delirium, dementia or drug induced disorders (acute ingestions or withdrawal; no evidence of toxidrome).? Given the H&P, I suspect this patient is suicidal and will require observation. Will consult care team to evaluate the patient. Will also obtain labs for medical clearance. Plan: labs, EKG, ASA/APAP levels, ETOH level, UDS, care team consultation, reassessment Differential Diagnosis Differential Diagnoses: The differential diagnosis associated with the presentation includes as above. Admission/Observation Consideration of admission/observation: Escalation of care including admission/observation considered Lab Data MDM Lab Attestation statement: I reviewed the patient's lab results. as above. 10/12/24 18:46 10/12/24 17:34 Labs: Lab Results 10/12/24 10/12/24 10/12/24 Range/Units 17:34 17:42 17:43 WBC (4.8-10.8) X10*3/uL RBC (4.60-5.80) X10*6/uL Hgb (14.0-18.0) g/dl Hct (42.0-52.0) % MCV (80.0-98.0) fL MCH (27.0-33.0) pg MCHC (31.0-36.0) g/dl RDW (11.0-16.0) % Plt Count (160-400) X10*3/uL MPV (9.4-12.4) fL Immature Gran % (Auto) (0.0-0.4) % Neut % (Auto) (45-73) % Lymph % (Auto) (20-40) % Rock % (Auto) (2-11) % Eos % (Auto) (0-4) % Baso % (Auto) (0-2) % Lymph # (Auto) (1.2-4.9) X10*3/uL Rock # (Auto) (0.1-1.2) X10*3/uL Eos # (Auto) (0.0-0.4) X10*3/uL Baso # (Auto) (0.0-0.2) X10*3/uL Abs Immat Gran (auto) (0.00-0.03) X10*3/uL Absolute Neuts (auto) (2.0-8.3) x10*3/uL Absolute Nucleated RBC (0.0-0.012) X10*3/uL Nucleated RBC % (auto) (0.0-0.2) /100WBC Sodium 145 (135-145) mmol/L Potassium 3.8 (3.3-5.1) mmol/L Chloride 107 (96-108) mmol/L Carbon Dioxide 29 (22-29) mmol/L Anion Gap 13 (12-20) BUN 11 (9-16) mg/dL Creatinine 1.34 (0.5-1.4) mg/dL Estim Creat Clear Calc 73.5 Estimated GFR 56 POC Glucose (60-115) mg/dL Random Glucose 117 H (60-115) mg/dL Calcium 9.4 (8.4-10.2) mg/dL Magnesium 1.6 (1.6-2.6) mg/dL Total Bilirubin 0.6 (0.0-1.0) mg/dL AST 24 (5-37) U/L ALT 15 (0-40) U/L Alkaline Phosphatase 82 (39-117) U/L Total Protein 6.9 (6.5-8.0) g/dL Albumin 4.2 (3.5-5.0) g/dL Lipase 59 (8-78) U/L Urine Color Yellow Urine Appearance Clear Urine pH 8.5 (5.0-9.0) Ur Specific [place] 1.010 (1.005-1.025) Urine Protein 30 (1+) H (Neg-Trace) mg/dL Urine Glucose (UA) Negative (Negative) mg/dL Urine Ketones Negative (Negative) mg/dL Urine Blood Trace H (Negative) Urine Nitrite Negative (Negative) Ur Leukocyte Esterase Negative (Negative) Urine RBC 6-10 H (0-2) /HPF Urine WBC 0-5 (0-5) /HPF Ur Squamous Epith Cells 0-2 (0-2) /HPF Urine Bacteria None Seen (None Seen) Hyaline Casts 0-2 (0-2) /LPF Salicylates < 5.0 L (15-30) mg/dL Urine Opiates Screen Not Detected (Not Detect) Ur Buprenorphine Scrn Not Detected (Not Detect) ng/mL Ur Oxycodone Screen Not Detected (Not Detect) ng/mL Urine Methadone Screen Not Detected (Not Detect) ng/mL Urine Fentanyl Screen Not Detected (Not Detect) Acetaminophen < 3 (<30) mcg/mL Ur Barbiturates Screen Not Detected (Not Detect) Ur Phencyclidine Scrn Not Detected (Not Detect) Ur Amphetamines Screen Not Detected (Not Detect) U Benzodiazepines Scrn Not Detected (Not Detect) Urine Cocaine Screen Not Detected (Not Detect) U Marijuana (THC) Screen Not Detected (Not Detect) Ethyl Alcohol < 10 mg/dL 10/12/24 10/12/24 Range/Units 18:37 18:46 WBC 6.8 (4.8-10.8) X10*3/uL RBC 4.63 (4.60-5.80) X10*6/uL Hgb 12.9 L (14.0-18.0) g/dl Hct 39.7 L (42.0-52.0) % MCV 85.7 (80.0-98.0) fL MCH 27.9 (27.0-33.0) pg MCHC 32.5 (31.0-36.0) g/dl RDW 14.1 (11.0-16.0) % Plt Count 205 (160-400) X10*3/uL MPV 10.3 (9.4-12.4) fL Immature Gran % (Auto) 0.1 (0.0-0.4) % Neut % (Auto) 65.5 (45-73) % Lymph % (Auto) 22.6 (20-40) % Rock % (Auto) 8.0 (2-11) % Eos % (Auto) 3.2 (0-4) % Baso % (Auto) 0.6 (0-2) % Lymph # (Auto) 1.5 (1.2-4.9) X10*3/uL Rock # (Auto) 0.5 (0.1-1.2) X10*3/uL Eos # (Auto) 0.2 (0.0-0.4) X10*3/uL Baso # (Auto) 0.0 (0.0-0.2) X10*3/uL Abs Immat Gran (auto) 0.01 (0.00-0.03) X10*3/uL Absolute Neuts (auto) 4.4 (2.0-8.3) x10*3/uL Absolute Nucleated RBC 0.000 (0.0-0.012) X10*3/uL Nucleated RBC % (auto) 0.0 (0.0-0.2) /100WBC Sodium (135-145) mmol/L Potassium (3.3-5.1) mmol/L Chloride (96-108) mmol/L Carbon Dioxide (22-29) mmol/L Anion Gap (12-20) BUN (9-16) mg/dL Creatinine (0.5-1.4) mg/dL Estim Creat Clear Calc Estimated GFR POC Glucose 96 (60-115) mg/dL Random Glucose (60-115) mg/dL Calcium (8.4-10.2) mg/dL Magnesium (1.6-2.6) mg/dL Total Bilirubin (0.0-1.0) mg/dL AST (5-37) U/L ALT (0-40) U/L Alkaline Phosphatase (39-117) U/L Total Protein (6.5-8.0) g/dL Albumin (3.5-5.0) g/dL Lipase (8-78) U/L Urine Color Urine Appearance Urine pH (5.0-9.0) Ur Specific [place] (1.005-1.025) Urine Protein (Neg-Trace) mg/dL Urine Glucose (UA) (Negative) mg/dL Urine Ketones (Negative) mg/dL Urine Blood (Negative) Urine Nitrite (Negative) Ur Leukocyte Esterase (Negative) Urine RBC (0-2) /HPF Urine WBC (0-5) /HPF Ur Squamous Epith Cells (0-2) /HPF Urine Bacteria (None Seen) Hyaline Casts (0-2) /LPF Salicylates (15-30) mg/dL Urine Opiates Screen (Not Detect) Ur Buprenorphine Scrn (Not Detect) ng/mL Ur Oxycodone Screen (Not Detect) ng/mL Urine Methadone Screen (Not Detect) ng/mL Urine Fentanyl Screen (Not Detect) Acetaminophen (<30) mcg/mL Ur Barbiturates Screen (Not Detect) Ur Phencyclidine Scrn (Not Detect) Ur Amphetamines Screen (Not Detect) U Benzodiazepines Scrn (Not Detect) Urine Cocaine Screen (Not Detect) U Marijuana (THC) Screen (Not Detect) Ethyl Alcohol mg/dL External Record Review External record reviewed: Inpatient record Social Determinants Patient?s care significantly limited by Social Determinants of Health including: Other Social Determinant of Health Critical Care Time Critical Care Time Critical Care Time: No Discharge Plan Discharge Clinical Impression: Suicidal ideation Prescriptions: No Action metformin 1,000 mg tablet 1,000 mg PO BID 90 Days Qty: 180 1RF albuterol sulfate [Ventolin HFA] 90 mcg/actuation HFA aerosol inhaler 2 puff inhalation Q4-6H PRN (Reason: for wheezing) Qty: 18 1RF hydroxyzine HCl 25 mg tablet 25 mg PO TID PRN (Reason: anxiety) Qty: 20 0RF escitalopram oxalate 20 mg tablet 20 mg PO QAM Qty: 90 1RF ferrous sulfate 325 mg (65 mg iron) tablet 325 mg PO DAILY omeprazole 40 mg capsule,delayed release(DR/EC) 40 mg PO DAILY tamsulosin [Flomax] 0.4 mg capsule 0.4 mg PO BEDTIME Qty: 7 0RF atorvastatin [Lipitor] 40 mg tablet 40 mg PO DAILY Qty: 7 0RF insulin glargine [Lantus Solostar U-100 Insulin] 100 unit/mL (3 mL) insulin pen 15 unit subcut DAILY betamethasone dipropionate 0.05 % cream 1 appl topical DAILY cholecalciferol (vitamin D3) 50 mcg (2,000 unit) capsule 50 mcg PO DAILY losartan 25 mg tablet 25 mg PO DAILY Interventions: [place]-Suicide Risk Severity Scale Last Done: 10/12/24 17:30 Print Language: Latvian
[2024-10-12 17:30] VITALS: RESP 18
--- NOTE | 2024-10-12 17:33 | PC.NURSE ---
Addendum entered by Christina Sevilla 10/12/24 17:41: pt also reports he no longer takes Atenolol, he reports his doctor replaced it with Losartan Original Note: RE; Med rec this RN completed med rec based on previous recall history and speaking with patient. Pt reports he takes his Lantus in the am instead of the pm
--- OUTSIDE RECORDS SUMMARY | 2024-10-12 17:48 | XMS_ITS ---
Author Organization [facility] Address [address] [place] [id number] Care Team Providers Care Placement Director Name Role Phone Fox Ku MD Primary Care Provider Tashi Bruno Unavailable [phone] Alisha Moore Unavailable Unavailable Allergies No Known [...] Problem Status W/U Status Risk Notes Problem 139069059 History of adenomatous polyp of colon (Z86.010) Active confirmed Problem 341853296 Colon cancer screening (Z12.11) Active confirmed Problem 162141712470213 Preprocedural examination (Z01.818) Active confirmed Problem 873222644 Gastroesophageal reflux disease without esophagitis (K21.9) Active confirmed Vital Signs Temperature 97.7 degrees Fahrenheit 04/17/20 23 Blood pressure systolic 00 mm Hg 04/17/20 23 Blood pressure diastolic 00 mm Hg 023 Height 67.75 in 04/17/2023 Weight 262 lbs 04/17/2023 BMI 40.13 kg/m2 04/17/2023 Encounters Encounter Location Date Provider Diagnosis [facility] [address] [place] [address] 04/17/2023 Tashi Currie Preprocedural examin ation Z01.818 [...] KIAN MAHMOOD ODOB: [birth year] (52 yo M)Acc No.[id number]:04/17/2023 Progress Notes Patient:?KIAN MAHMOOD Provider:?Tashi Currie MD :[id number]???Age:52 Y???Sex:Male Bravo e:04/17/2023 Address:[address] [place], [place] [id number] Pcp:Fox Ku MD Subjective: * Chief Complaints: [...] * Surgical History:?Mass remov ed--Dr. Fields at [facility]-- Benign , but had XRT 2009Right [...] Procedure Codes:?3017F COLOR ECTAL CA SCREEN DOC [id number] TOBACCO [id number] BP SCR NOT PRFRM REC REASON NOS * Preventive Medicine:? ??Counseling:?Care goal follow-up plan:?Above Normal BMI Follow-up?Giving encouragement to exercise,?BMI management provided?Yes.? * Follow Up:?prn * * Sign off status: Completed true * Provider:?Tashi Currie MD Date:? 023 Generated for Chilo terrazas/Mariia/eTransmitting on:?10/12/2024 05:48 PM EDT History and Physical Notes * [...]
[2024-10-12 17:54] LABS: Appearance Urine Clear; Color Urine Yellow; Glucose Urine UA Negative (Negative); Leukocyte Esterase Urine Negative (Negative); Nitrite Urine Negative (Negative); PH 8.5 (5.0-9.0); UMIC TRIGGER UACC YES; Urine Blood Trace (Negative); Urine Ketones Negative (Negative); Urine Protein 30 (1+) mg/dL (Neg-Trace)
[2024-10-12 18:03] LABS: Amphetamine Screen Urine Not Detected (Not Detect); Barbiturates, Urine Not Detected (Not Detect); Benzodiazepines Screen Urine Not Detected (Not Detect); Buprenorphine Scr Not Detected (Not Detect); Cannabinoid Screen Urine Not Detected (Not Detect); Cocaine Screen Urine Not Detected (Not Detect); Fentanyl, urine Not Detected (Not Detect); Methadone Screen, Urine Not Detected (Not Detect); Opiate Screen Urine Not Detected (Not Detect); Oxycodone Screen Urine Not Detected (Not Detect); Phencyclidine Screen Urine Not Detected (Not Detect)
--- NOTE | 2024-10-12 18:04 | PHA.MEDREC ---
Pharmacy Consult ? Medication Reconciliation Pharmacy has reviewed the medication reconciliation completed by Courtney. Patient is report taking losartan instead of atenolol even though atenolol has a more recent fill history. Farzana Johnson, VasquezD
[2024-10-12 18:07] LABS: Acetaminophen LAB < 3 mcg/mL (<30); Alanine Aminotransferase 15 U/L (0-40); Albumin Level 4.2 g/dL (3.5-5.0); Alkaline Phosphatase 82 U/L (39-117); Anion Gap 13 (12-20); Aspartate Amino Transferase 24 U/L (5-37); Bilirubin Total 0.6 mg/dL (0.0-1.0); Blood Urea Nitrogen 11 mg/dL (9-16); Calcium 9.4 mg/dL (8.4-10.2); Carbon Dioxide 29 mmol/L (22-29); Chloride 107 mmol/L (96-108); Creatinine Clr Calc Pharmacy 73.5; Estimated Glomerular Filt Rate 56; Ethanol < 10 mg/dL; Glucose Random 117 mg/dL (60-115); Lipase 59 U/L (8-78); Magnesium 1.6 mg/dL (1.6-2.6); Potassium 3.8 mmol/L (3.3-5.1); Salicylate < 5.0 mg/dL (15-30); Sodium 145 mmol/L (135-145); Total Protein 6.9 g/dL (6.5-8.0)
[2024-10-12 18:35] LABS: Bacteria Urine None Seen (None Seen); Hyaline Casts Urine 0-2 /LPF (0-2); Squamous Epithelial Cell Urine 0-2 /HPF (0-2); WBC Urine 0-5 /HPF (0-5)
[2024-10-12 18:40] LABS: Glucose, Whole Blood 96 mg/dL (60-115)
[2024-10-12 18:56] LABS: Basophils Percent Auto 0.6 % (0-2); Eosinophils Absolute Auto 0.2 X10*3/uL (0.0-0.4); Eosinophils Percent Auto 3.2 % (0-4); Hematocrit 39.7 % (42.0-52.0); Hemoglobin 12.9 g/dl (14.0-18.0); Imm Gran Abs Auto 0.01 X10*3/uL (0.00-0.03); Imm Gran Pct Auto 0.1 % (0.0-0.4); Lymphocytes Absolute Auto 1.5 X10*3/uL (1.2-4.9); Lymphocytes Percent Auto 22.6 % (20-40); MANUAL DIFF FLAG NO; Mean Corpuscular HGB Conc 32.5 g/dl (31.0-36.0); Mean Corpuscular Hemoglobin 27.9 pg (27.0-33.0); Mean Corpuscular Volume 85.7 fL (80.0-98.0); Mean Platelet Volume 10.3 fL (9.4-12.4); Monocytes Absolute Auto 0.5 X10*3/uL (0.1-1.2); Neutrophils Absolute Auto 4.4 x10*3/uL (2.0-8.3); Neutrophils Percent Auto 65.5 % (45-73); Platelet Count 205 X10*3/uL (160-400); Red Blood Count 4.63 X10*6/uL (4.60-5.80); Red Cell Distribution Width 14.1 % (11.0-16.0); White Blood Count 6.8 X10*3/uL (4.8-10.8)
[2024-10-12 22:01] LABS: Glucose, Whole Blood 87 mg/dL (60-115)
[2024-10-12] MEDS: Albuterol Sulfate 90 MCG 8 GM INHALER 2 PUFF INHALE (23:07)
--- NOTE | 2024-10-13 | ECG_ITS ---
Test Reason : CHECK PROLONGED QT Blood Pressure : */* mmHG Vent. Rate : 58 BPM Atrial Rate : 58 BPM P-R Int : 142 ms QRS Dur : 106 ms QT Int : 472 ms P-R-T Axes : 37 8 7 degrees QTcB Int : 463 ms Sinus bradycardia Minimal voltage criteria for LVH, may be normal variant ( R in aVL ) Borderline ECG When compared with ECG of 30-Sep-2024 16:55, No significant changes seen Referred By: Maxwell sAhton Electronically Signed By: BRIGITTE RASMUSSEN
[2024-10-13 01:36] VITALS: BP 140/67; PULSE 60; RESP 17; TEMP 36.5; O2SAT 96
[2024-10-13] MEDS: Omeprazole 40 MG CAPSULE.DR PO (06:18)
[2024-10-13 06:21] LABS: Glucose, Whole Blood 101 mg/dL (60-115)
--- NOTE | 2024-10-13 07:25 | PC.NURSE ---
Care of Pt assumed at change of shift. Pt is awake and moving about the pod. Pt eats breakfast and remains out in the day area. NAD noted and Pt offers no complaints at this time.
[2024-10-13 08:04] VITALS: BP 164/77; PULSE 59; RESP 16; TEMP 36.9; O2SAT 98
--- NOTE | 2024-10-13 08:20 | PC.NURSE ---
Call received from [facility] [place] in admissions requesting the following: EKG Orders placed and pending.
[2024-10-13] MEDS: Ferrous Sulfate 324 MG TABLET.DR PO (08:49)
[2024-10-13] MEDS: Cholecalciferol (Vitamin D3) 25 MCG TABLET 50 MCG PO (08:49)
[2024-10-13] MEDS: Escitalopram Oxalate 20 MG TABLET PO (08:50)
[2024-10-13 09:16] VITALS: BP 164/77
[2024-10-13] MEDS: Insulin Glargine,Hum.rec.anlog 100 UNIT/ML 10 ML VIAL 15 UNIT SUBCUT (09:16)
[2024-10-13] MEDS: Atorvastatin Calcium 40 MG TABLET PO (09:16)
[2024-10-13] MEDS: Losartan Potassium 25 MG TABLET PO (09:16)
[2024-10-13] MEDS: metFORMIN HCl 1,000 MG TABLET 1000 MG PO ×2 (09:16→21:29)
[2024-10-13 14:51] VITALS: BP 186/82; PULSE 59; RESP 20; TEMP 2.4; TEMP 36.4; O2SAT 98
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
[2024-10-13 15:21] VITALS: BMI 34.6
--- NOTE | 2024-10-13 17:07 | PC.ADMIT ---
Nursing admission note: 54 year old male, DX: Unspecified Anxiety Disorder, Unspecified Depressive Disorder. Signed conditional voluntary for admission. Patient self presented to [facility] ED secondary to suicidal ideations with plan and intent. Reported at that time he was experiencing increased thoughts to engage in self harming behavior by means of getting hit by a car or drowning himself. Reported increase in symptoms was related to worsening environmental stressors. Patient was calm and cooperative during admission assessment. A+O x4. Mood is depressed, with periods of increased anxiety. Continues to report +SI with plan to walk into traffic, or jump from bridge and drown. Denies intent to harm self at this time, states he is able to seek staff support if feeling he will act on suicidal thoughts, feels safe on unit. Denies HI. Maintains good eye contact, affect congruent. Malodorous, dressed in hospital attire. Cooperative with requests. Reports +CAH, voices tell him to jump off bridge, overdose or get hit by a truck. Denies VH/[facility] at this time. Focused on interview, responds to questions appropriately. Reports sleep disturbance, occasional night walls, difficulty falling and maintaining sleep. Denies appetite disturbances. TOX screen negative. Patient denies drug or alcohol use. Medical history includes asthma, COPD, hyperlipidemia, diabetes, HTN, chronic kidney disease. 2 Healing open areas L side stating he tripped and fell on a board last year. No sx of infection, area open to air. Reports increase in stress related to the [facility] assessing his house with possible eviction pending. See nursing assessment for further details, crisis evaluation for complete details.
[2024-10-13] MEDS: Albuterol Sulfate 90 MCG 8 GM INHALER 2 PUFF INHALE (18:02)
[2024-10-13 19:33] VITALS: BP 144/69; PULSE 86; RESP 18; TEMP 36.9; O2SAT 96
[2024-10-13] MEDS: OLANZapine 5 MG TABLET PO (21:29)
[2024-10-13] MEDS: Tamsulosin HCL 0.4 MG CAPSULE PO (21:29)
[2024-10-13] MEDS: lamoTRIgine 25 MG TABLET PO (21:29)
[2024-10-13 21:40] LABS: Glucose, Whole Blood 124 mg/dL (60-115)
[2024-10-14] MEDS: Omeprazole 40 MG CAPSULE.DR PO (07:04)
[2024-10-14 08:00] VITALS: BP 144/70; PULSE 80; TEMP 36.6; O2SAT 94
[2024-10-14 08:11] LABS: Glucose, Whole Blood 110 mg/dL (60-115)
[2024-10-14 08:34] LABS: Estimated Average Glucose 111 mg/dL; Hemoglobin A1C 124.9088 umol/L; Hemoglobin A1c % 5.5 % (<6.0); Total Hemoglobin (HGBA1C) 3433.5247 umol/L
[2024-10-14] MEDS: Insulin Glargine,Hum.rec.anlog 100 UNIT/ML 10 ML VIAL 15 UNIT SUBCUT (08:37)
[2024-10-14] MEDS: Ferrous Sulfate 324 MG TABLET.DR PO (08:39)
[2024-10-14] MEDS: OLANZapine 5 MG TABLET PO ×2 (08:39→21:19)
[2024-10-14 08:40] VITALS: BP 144/70
[2024-10-14] MEDS: Losartan Potassium 25 MG TABLET PO (08:40)
[2024-10-14] MEDS: Atorvastatin Calcium 40 MG TABLET PO (08:40)
[2024-10-14] MEDS: Escitalopram Oxalate 20 MG TABLET PO (08:40)
[2024-10-14] MEDS: Cholecalciferol (Vitamin D3) 25 MCG TABLET 50 MCG PO (08:40)
[2024-10-14] MEDS: metFORMIN HCl 1,000 MG TABLET 1000 MG PO ×2 (08:41→21:19)
[2024-10-14 08:51] LABS: Alanine Aminotransferase 14 U/L (0-40); Albumin Level 4.1 g/dL (3.5-5.0); Alkaline Phosphatase 86 U/L (39-117); Anion Gap 12 (12-20); Aspartate Amino Transferase 19 U/L (5-37); Bilirubin Total 0.6 mg/dL (0.0-1.0); Blood Urea Nitrogen 27 mg/dL (9-16); Calcium 10.1 mg/dL (8.4-10.2); Carbon Dioxide 28 mmol/L (22-29); Chloride 107 mmol/L (96-108); Cholesterol 128 mg/dL (<200); Creatinine Clr Calc Pharmacy 70.7; Estimated Glomerular Filt Rate 53; Glucose Random 116 mg/dL (60-115); HDL Cholesterol 31 mg/dL (>40); LDL Cholesterol Calculated 56 mg/dL (<100); Potassium 4.4 mmol/L (3.3-5.1); Sodium 143 mmol/L (135-145); Total Protein 6.9 g/dL (6.5-8.0); Triglycerides 207 mg/dL (<150)
[2024-10-14 09:05] LABS: Thyroid Stimulating Hormone 0.97 uIU/mL (0.32-4.0)
--- NOTE | 2024-10-14 11:46 | HO.PSYCHPN ---
Subjective Subjective Date of Service: 10/14/24 Reason For Visit: SI Subjective Notes: Conditional Voluntary Healthcare Proxy: No Guardianship: No Medical Problems Affecting Mental Status: No Interim History: I met with the social welfare administrator. She is calling my brother. I feel better because all of you are helping me. I don't know how to deal with this or what to do. Reports new meds are tolerated. Again reviewed rationale. Pt agrees. Reports no groups attended. Encouraged to begin to attend and discuss how he is feeling. Contracts for his safety on the unit. Believes he can approach team if feeling unsafe. Currently denies SI,HI, AH, VH. Quietly visable on the unit. Medication Compliance: Yes Side effects from medications: No Attending Groups: No Review of Systems Acute medical concerns: No Medical Review of Systems: unchanged Review of Systems Review of Systems Denies Mental Status Exam Mental Status Exam Patient Appearance: Appropriate Patient Orientation: Person, Place, Time and Situation Level of Consciousness: Alert Patient Behavior: Talkative and Good Eye Contact Mood Description: Depressed, Anxious and Apprehensive Affect Description: Anxious, Flat and Apprehensive Patient Cognition Impaired: No Ability to Follow Directions: Good Speech Pattern: Spontaneous Speech Memory Description: Episodic Impaired Hallucinations: None (denies) Delusions: Not Present Perceptual Disturbances: Derealization Thought Process: Rumination Thought Content: positive for Perseveration Depressive Symptoms: Increased Anxiety, Loss of Int. in Activity, Hopelessness, Unhappiness, Low Self Esteem and Difficulty Concentrating Judgement: Fair Diagnostics Vital Signs (24Hr): Vital Signs - 24 hr 10/13/24 14:51 10/13/24 19:33 10/14/24 08:00 Temperature 36.4 F L 98.4 F 97.8 F Pulse Rate 59 86 80 Respiratory Rate 20 18 Blood Pressure 186/82 H 144/69 H 144/70 H Pulse Oximetry 98 96 94 Oxygen Delivery Method Room Air Room Air Room Air 10/14/24 08:40 Temperature Pulse Rate Respiratory Rate Blood Pressure 144/70 H Pulse Oximetry Oxygen Delivery Method BMI result Body Mass Index 34.6 Labs 10/12/24 18:46 10/14/24 08:01 Labs: Laboratory Results - last 48 hr 10/12/24 10/12/24 10/12/24 17:34 17:42 17:43 WBC RBC Hgb Hct MCV MCH MCHC RDW Plt Count MPV Immature Gran % (Auto) Neut % (Auto) Lymph % (Auto) [place] % (Auto) Eos % (Auto) Baso % (Auto) Lymph # (Auto) [place] # (Auto) Eos # (Auto) Baso # (Auto) Abs Immat Gran (auto) Absolute Neuts (auto) Absolute Nucleated RBC Nucleated RBC % (auto) Sodium 145 Potassium 3.8 Chloride 107 Carbon Dioxide 29 Anion Gap 13 BUN 11 Creatinine 1.34 Estim Creat Clear Calc 73.5 Estimated GFR 56 POC Glucose Random Glucose 117 H Estimat Average Glucose Hemoglobin A1c % Calcium 9.4 Magnesium 1.6 Total Bilirubin 0.6 AST 24 ALT 15 Alkaline Phosphatase 82 Total Protein 6.9 Albumin 4.2 Triglycerides Cholesterol LDL Cholesterol, Calc HDL Cholesterol Lipase 59 TSH Urine Color Yellow Urine Appearance Clear Urine pH 8.5 Ur Specific [place] 1.010 Urine Protein 30 (1+) H Urine Glucose (UA) Negative Urine Ketones Negative Urine Blood Trace H Urine Nitrite Negative Ur Leukocyte Esterase Negative Urine RBC 6-10 H Urine WBC 0-5 Ur Squamous Epith Cells 0-2 Urine Bacteria None Seen Hyaline Casts 0-2 Salicylates < 5.0 L Urine Opiates Screen Not Detected Ur Buprenorphine Scrn Not Detected Ur Oxycodone Screen Not Detected Urine Methadone Screen Not Detected Urine Fentanyl Screen Not Detected Acetaminophen < 3 Ur Barbiturates Screen Not Detected Ur Phencyclidine Scrn Not Detected Ur Amphetamines Screen Not Detected U Benzodiazepines Scrn Not Detected Urine Cocaine Screen Not Detected U Marijuana (THC) Screen Not Detected Ethyl Alcohol < 10 10/12/24 10/12/24 10/12/24 18:37 18:46 21:54 WBC 6.8 RBC 4.63 Hgb 12.9 L Hct 39.7 L MCV 85.7 MCH 27.9 MCHC 32.5 RDW 14.1 Plt Count 205 MPV 10.3 Immature Gran % (Auto) 0.1 Neut % (Auto) 65.5 Lymph % (Auto) 22.6 [place] % (Auto) 8.0 Eos % (Auto) 3.2 Baso % (Auto) 0.6 Lymph # (Auto) 1.5 [place] # (Auto) 0.5 Eos # (Auto) 0.2 Baso # (Auto) 0.0 Abs Immat Gran (auto) 0.01 Absolute Neuts (auto) 4.4 Absolute Nucleated RBC 0.000 Nucleated RBC % (auto) 0.0 Sodium Potassium Chloride Carbon Dioxide Anion Gap BUN Creatinine Estim Creat Clear Calc Estimated GFR POC Glucose 96 87 Random Glucose Estimat Average Glucose Hemoglobin A1c % Calcium Magnesium Total Bilirubin AST ALT Alkaline Phosphatase Total Protein Albumin Triglycerides Cholesterol LDL Cholesterol, Calc HDL Cholesterol Lipase TSH Urine Color Urine Appearance Urine pH Ur Specific [place] Urine Protein Urine Glucose (UA) Urine Ketones Urine Blood Urine Nitrite Ur Leukocyte Esterase Urine RBC Urine WBC Ur Squamous Epith Cells Urine Bacteria Hyaline Casts Salicylates Urine Opiates Screen Ur Buprenorphine Scrn Ur Oxycodone Screen Urine Methadone Screen Urine Fentanyl Screen Acetaminophen Ur Barbiturates Screen Ur Phencyclidine Scrn Ur Amphetamines Screen U Benzodiazepines Scrn Urine Cocaine Screen U Marijuana (THC) Screen Ethyl Alcohol 10/13/24 10/13/24 10/14/24 06:17 21:36 08:01 WBC RBC Hgb Hct MCV MCH MCHC RDW Plt Count MPV Immature Gran % (Auto) Neut % (Auto) Lymph % (Auto) [place] % (Auto) Eos % (Auto) Baso % (Auto) Lymph # (Auto) [place] # (Auto) Eos # (Auto) Baso # (Auto) Abs Immat Gran (auto) Absolute Neuts (auto) Absolute Nucleated RBC Nucleated RBC % (auto) Sodium 143 Potassium 4.4 Chloride 107 Carbon Dioxide 28 Anion Gap 12 BUN 27 H Creatinine 1.39 Estim Creat Clear Calc 70.7 Estimated GFR 53 POC Glucose 101 124 H Random Glucose 116 H Estimat Average Glucose 111 Hemoglobin A1c % 5.5 Calcium 10.1 D Magnesium Total Bilirubin 0.6 AST 19 ALT 14 Alkaline Phosphatase 86 Total Protein 6.9 Albumin 4.1 Triglycerides 207 H Cholesterol 128 LDL Cholesterol, Calc 56 HDL Cholesterol 31 L Lipase TSH 0.97 Urine Color Urine Appearance Urine pH Ur Specific [place] Urine Protein Urine Glucose (UA) Urine Ketones Urine Blood Urine Nitrite Ur Leukocyte Esterase Urine RBC Urine WBC Ur Squamous Epith Cells Urine Bacteria Hyaline Casts Salicylates Urine Opiates Screen Ur Buprenorphine Scrn Ur Oxycodone Screen Urine Methadone Screen Urine Fentanyl Screen Acetaminophen Ur Barbiturates Screen Ur Phencyclidine Scrn Ur Amphetamines Screen U Benzodiazepines Scrn Urine Cocaine Screen U Marijuana (THC) Screen Ethyl Alcohol 10/14/24 08:06 WBC RBC Hgb Hct MCV MCH MCHC RDW Plt Count MPV Immature Gran % (Auto) Neut % (Auto) Lymph % (Auto) [place] % (Auto) Eos % (Auto) Baso % (Auto) Lymph # (Auto) [place] # (Auto) Eos # (Auto) Baso # (Auto) Abs Immat Gran (auto) Absolute Neuts (auto) Absolute Nucleated RBC Nucleated RBC % (auto) Sodium Potassium Chloride Carbon Dioxide Anion Gap BUN Creatinine Estim Creat Clear Calc Estimated GFR POC Glucose 110 Random Glucose Estimat Average Glucose Hemoglobin A1c % Calcium Magnesium Total Bilirubin AST ALT Alkaline Phosphatase Total Protein Albumin Triglycerides Cholesterol LDL Cholesterol, Calc HDL Cholesterol Lipase TSH Urine Color Urine Appearance Urine pH Ur Specific [place] Urine Protein Urine Glucose (UA) Urine Ketones Urine Blood Urine Nitrite Ur Leukocyte Esterase Urine RBC Urine WBC Ur Squamous Epith Cells Urine Bacteria Hyaline Casts Salicylates Urine Opiates Screen Ur Buprenorphine Scrn Ur Oxycodone Screen Urine Methadone Screen Urine Fentanyl Screen Acetaminophen Ur Barbiturates Screen Ur Phencyclidine Scrn Ur Amphetamines Screen U Benzodiazepines Scrn Urine Cocaine Screen U Marijuana (THC) Screen Ethyl Alcohol Medications Medications Current Medications Acetaminophen (Acetaminophen 325 Mg Tablet) 650 mg PO Q6H PRN PRN Reason: Headache/Pain, Scale 1-10 Al Hydroxide/Mg Hydroxide (Magnesium Hydrox/Alum Hydrox 30 Ml Oral.Susp) 30 ml PO Q6H PRN PRN Reason: Heartburn/Nausea Albuterol Sulfate (Albuterol Sulfate 90 Mcg 8 Gm Inhaler) 2 puff INHALE Q4H PRN PRN Reason: for wheezing Last Admin: 10/13/24 18:02 Dose: 2 puff Atorvastatin Calcium (Atorvastatin Calcium 40 Mg Tablet) 40 mg PO DAILY [facility] Last Admin: 10/14/24 08:40 Dose: 40 mg Escitalopram Oxalate (Escitalopram Oxalate 20 Mg Tablet) 20 mg PO DAILY [facility] Last Admin: 10/14/24 08:40 Dose: 20 mg Ferrous Sulfate (Ferrous Sulfate 324 Mg Tablet.) 324 mg PO DAILY [facility] Last Admin: 10/14/24 08:39 Dose: 324 mg Hydroxyzine HCl (Hydroxyzine Hcl 25 Mg Tablet) 25 mg PO TID PRN PRN Reason: anxiety Insulin Glargine (Insulin Glargine,Hum.Rec.Anlog 100 Unit/Ml 10 Ml Vial) 15 unit SUBCUT DAILY [facility] Last Admin: 10/14/24 08:37 Dose: 15 unit Lamotrigine (Lamotrigine 25 Mg Tablet) 25 mg PO BEDTIME [facility] Last Admin: 10/13/24 21:29 Dose: 25 mg Losartan Potassium (Losartan Potassium 25 Mg Tablet) 25 mg PO DAILY [facility]; Protocol Last Admin: 10/14/24 08:40 Dose: 25 mg Magnesium Hydroxide (Milk Of Magnesia 30 Ml Oral.Susp) 30 ml PO DAILY PRN PRN Reason: Constipation Metformin HCl (Metformin Hcl 1,000 Mg Tablet) 1,000 mg PO BID [facility] Last Admin: 10/14/24 08:41 Dose: 1,000 mg Nicotine Polacrilex (Nicotine Polacrilex 2 Mg Gum) 4 mg BUCCAL Q2H PRN PRN Reason: Nicotine Cravings Olanzapine (Olanzapine 5 Mg Tablet) 5 mg PO BID [facility] Last Admin: 10/14/24 08:39 Dose: 5 mg Omeprazole (Omeprazole 40 Mg Capsule.Dr) 40 mg PO DAILY@629 [facility] Last Admin: 10/14/24 07:04 Dose: 40 mg Tamsulosin HCl (Tamsulosin Hcl 0.4 Mg Capsule) 0.4 mg PO BEDTIME [facility] Last Admin: 10/13/24 21:29 Dose: 0.4 mg Trazodone HCl (Trazodone Hcl 50 Mg Tablet) 50 mg PO BEDTIME MRX1 PRN PRN Reason: Insomnia Triamcinolone Acetonide (Triamcinolone Acet 0.5 % Oint 15 Gm Tube) 1 appl TOPICAL DAILY [facility] Last Admin: 10/14/24 08:45 Dose: Not Given Vitamin D (Cholecalciferol (Vitamin D3) 25 Mcg Tablet) 50 mcg PO DAILY [facility] Last Admin: 10/14/24 08:40 Dose: 50 mcg Allergies Allergies Allergy/AdvReac Type Severity Reaction Status Date / Time pollen extracts [POLLEN] Allergy Mild RUNNY NOSE Verified 10/12/24 16:53 cat dander [CATS] Allergy Unknown UNKNOWN Verified 10/12/24 16:53 dog dander [DOGS] Allergy Unknown UNKNOWN Verified 10/12/24 16:53 mold [MOLD] Allergy Unknown UNKNOWN Verified 10/12/24 16:53 Assessment & Plan Assessment & Plan (1) Suicidal ideation: Status: Acute Code(s): R45.851 - Suicidal ideations (2) Mood disorder: Status: Acute Code(s): F39 - Unspecified mood [affective] disorder (3) CATIE (generalized anxiety disorder): Status: Acute Code(s): F41.1 - Generalized anxiety disorder (4) MDD (major depressive disorder), recurrent episode: Status: Acute Code(s): F33.9 - Major depressive disorder, recurrent, unspecified (5) Situational crisis: Status: Acute Code(s): F43.0 - Acute stress reaction Plan 54 yo male, hx of mood disorder, psychosis, depression, anxiety. Reports SI with plan and intent today as he has been informed by the board of [facility] that his home is no longer viable to live in. Pt believes he will now be homeless. He reports SI with plan and intent and an increase in voices, depression, anxiety. Plan: Admit, 15 minute checks, CV Collateral Contact Diagnostics as needed. Continue current regime Lamictal 25 mg HS- Target-impulsivity Olanzapine 5 mg bid- Target- perceptual alterations, impulsivity Discharge planning 10/14: Continue tx Continue to monitor BP- hypertensive- may need hospitalist consult to add meds vs time for BP to resolve from anxiety from current crisis. Informed Consent: understands Reason for continued inpatient stay Substantial Risk for: rapid decompensation Time Spent With Patient Time: Total time managing care of this patient today ____ minutes.
[2024-10-14] MEDS: Albuterol Sulfate 90 MCG 8 GM INHALER 2 PUFF INHALE (19:18)
[2024-10-14 19:35] VITALS: BP 130/72; PULSE 72; RESP 16; TEMP 36.4; O2SAT 99
[2024-10-14] MEDS: Tamsulosin HCL 0.4 MG CAPSULE PO (21:19)
[2024-10-14] MEDS: lamoTRIgine 25 MG TABLET PO (21:19)
[2024-10-14 21:29] LABS: Glucose, Whole Blood 141 mg/dL (60-115)
[2024-10-15] MEDS: Albuterol Sulfate 90 MCG 8 GM INHALER 2 PUFF INHALE (06:00)
[2024-10-15] MEDS: Omeprazole 40 MG CAPSULE.DR PO (06:00)
[2024-10-15 08:00] VITALS: BP 117/64; PULSE 80; RESP 16; TEMP 37; O2SAT 94
[2024-10-15] MEDS: Insulin Glargine,Hum.rec.anlog 100 UNIT/ML 10 ML VIAL 15 UNIT SUBCUT (08:35)
[2024-10-15] MEDS: Losartan Potassium 25 MG TABLET PO (08:36)
[2024-10-15] MEDS: metFORMIN HCl 1,000 MG TABLET 1000 MG PO ×2 (08:36→21:24)
[2024-10-15] MEDS: Cholecalciferol (Vitamin D3) 25 MCG TABLET 50 MCG PO (08:36)
[2024-10-15] MEDS: OLANZapine 5 MG TABLET PO ×2 (08:36→21:24)
[2024-10-15] MEDS: Atorvastatin Calcium 40 MG TABLET PO (08:36)
[2024-10-15] MEDS: Ferrous Sulfate 324 MG TABLET.DR PO (08:36)
[2024-10-15] MEDS: Escitalopram Oxalate 20 MG TABLET PO (08:36)
[2024-10-15 11:58] LABS: Glucose, Whole Blood 97 mg/dL (60-115)
--- NOTE | 2024-10-15 17:57 | HO.PSYCHPN ---
Subjective Subjective Date of Service: 10/15/24 Reason For Visit: SI Interim History: concerned he is going to lose his housing, feeling overwhelmed and unable to cope. per staff, POC BID WNL. taking medications. sleeping 8 hours. watching TV. in milieu. Mental Status Exam Mental Status Exam Patient Appearance: Appropriate Patient Orientation: Person, Place, Time and Situation Level of Consciousness: Alert Patient Behavior: Talkative and Good Eye Contact Mood Description: Depressed, Anxious and Apprehensive Affect Description: Anxious, Flat and Apprehensive Patient Cognition Impaired: No Ability to Follow Directions: Good Speech Pattern: Spontaneous Speech Memory Description: Episodic Impaired Hallucinations: None (denies) Delusions: Not Present Perceptual Disturbances: Derealization Thought Process: Rumination Thought Content: positive for Perseveration Depressive Symptoms: Increased Anxiety, Loss of Int. in Activity, Hopelessness, Unhappiness, Low Self Esteem and Difficulty Concentrating Judgement: Fair Diagnostics Vital Signs (24Hr): Vital Signs - 24 hr 10/14/24 19:35 10/15/24 08:00 Temperature 97.6 F 98.6 F Pulse Rate 72 80 Respiratory Rate 16 16 Blood Pressure 130/72 117/64 Pulse Oximetry 99 94 Oxygen Delivery Method Room Air Room Air BMI result Body Mass Index 34.6 Labs 10/12/24 18:46 10/14/24 08:01 Labs: Laboratory Results - last 48 hr 10/13/24 10/14/24 10/14/24 21:36 08:01 08:06 Sodium 143 Potassium 4.4 Chloride 107 Carbon Dioxide 28 Anion Gap 12 BUN 27 H Creatinine 1.39 Estim Creat Clear Calc 70.7 Estimated GFR 53 POC Glucose 124 H 110 Random Glucose 116 H Estimat Average Glucose 111 Hemoglobin A1c % 5.5 Calcium 10.1 D Total Bilirubin 0.6 AST 19 ALT 14 Alkaline Phosphatase 86 Total Protein 6.9 Albumin 4.1 Triglycerides 207 H Cholesterol 128 LDL Cholesterol, Calc 56 HDL Cholesterol 31 L TSH 0.97 10/14/24 10/15/24 21:23 07:52 Sodium Potassium Chloride Carbon Dioxide Anion Gap BUN Creatinine Estim Creat Clear Calc Estimated GFR POC Glucose 141 H 97 Random Glucose Estimat Average Glucose Hemoglobin A1c % Calcium Total Bilirubin AST ALT Alkaline Phosphatase Total Protein Albumin Triglycerides Cholesterol LDL Cholesterol, Calc HDL Cholesterol TSH Medications Medications Current Medications Acetaminophen (Acetaminophen 325 Mg Tablet) 650 mg PO Q6H PRN PRN Reason: Headache/Pain, Scale 1-10 Al Hydroxide/Mg Hydroxide (Magnesium Hydrox/Alum Hydrox 30 Ml Oral.Susp) 30 ml PO Q6H PRN PRN Reason: Heartburn/Nausea Albuterol Sulfate (Albuterol Sulfate 90 Mcg 8 Gm Inhaler) 2 puff INHALE Q4H PRN PRN Reason: for wheezing Last Admin: 10/15/24 06:00 Dose: 2 puff Atorvastatin Calcium (Atorvastatin Calcium 40 Mg Tablet) 40 mg PO DAILY [facility] Last Admin: 10/15/24 08:36 Dose: 40 mg Escitalopram Oxalate (Escitalopram Oxalate 20 Mg Tablet) 20 mg PO DAILY [facility] Last Admin: 10/15/24 08:36 Dose: 20 mg Ferrous Sulfate (Ferrous Sulfate 324 Mg Tablet.) 324 mg PO DAILY [facility] Last Admin: 10/15/24 08:36 Dose: 324 mg Hydroxyzine HCl (Hydroxyzine Hcl 25 Mg Tablet) 25 mg PO TID PRN PRN Reason: anxiety Insulin Glargine (Insulin Glargine,Hum.Rec.Anlog 100 Unit/Ml 10 Ml Vial) 15 unit SUBCUT DAILY [facility] Last Admin: 10/15/24 08:35 Dose: 15 unit Lamotrigine (Lamotrigine 25 Mg Tablet) 25 mg PO BEDTIME [facility] Last Admin: 10/14/24 21:19 Dose: 25 mg Losartan Potassium (Losartan Potassium 25 Mg Tablet) 25 mg PO DAILY [facility]; Protocol Last Admin: 10/15/24 08:36 Dose: 25 mg Magnesium Hydroxide (Milk Of Magnesia 30 Ml Oral.Susp) 30 ml PO DAILY PRN PRN Reason: Constipation Metformin HCl (Metformin Hcl 1,000 Mg Tablet) 1,000 mg PO BID [facility] Last Admin: 10/15/24 08:36 Dose: 1,000 mg Nicotine Polacrilex (Nicotine Polacrilex 2 Mg Gum) 4 mg BUCCAL Q2H PRN PRN Reason: Nicotine Cravings Olanzapine (Olanzapine 5 Mg Tablet) 5 mg PO BID [facility] Last Admin: 10/15/24 08:36 Dose: 5 mg Omeprazole (Omeprazole 40 Mg Capsule.) 40 mg PO DAILY@0630 [facility] Last Admin: 10/15/24 06:00 Dose: 40 mg Tamsulosin HCl (Tamsulosin Hcl 0.4 Mg Capsule) 0.4 mg PO BEDTIME [facility] Last Admin: 10/14/24 21:19 Dose: 0.4 mg Trazodone HCl (Trazodone Hcl 50 Mg Tablet) 50 mg PO BEDTIME MRX1 PRN PRN Reason: Insomnia Triamcinolone Acetonide (Triamcinolone Acet 0.5 % Oint 15 Gm Tube) 1 appl TOPICAL DAILY [facility] Last Admin: 10/15/24 08:42 Dose: Not Given Vitamin D (Cholecalciferol (Vitamin D3) 25 Mcg Tablet) 50 mcg PO DAILY [facility] Last Admin: 10/15/24 08:36 Dose: 50 mcg Allergies Allergies Allergy/AdvReac Type Severity Reaction Status Date / Time pollen extracts [POLLEN] Allergy Mild RUNNY NOSE Verified 10/12/24 16:53 cat dander [CATS] Allergy Unknown UNKNOWN Verified 10/12/24 16:53 dog dander [DOGS] Allergy Unknown UNKNOWN Verified 10/12/24 16:53 mold [MOLD] Allergy Unknown UNKNOWN Verified 10/12/24 16:53 Assessment & Plan Assessment & Plan (1) Suicidal ideation: Status: Acute Code(s): R45.851 - Suicidal ideations (2) Mood disorder: Status: Acute Code(s): F39 - Unspecified mood [affective] disorder (3) CATIE (generalized anxiety disorder): Status: Acute Code(s): F41.1 - Generalized anxiety disorder (4) MDD (major depressive disorder), recurrent episode: Status: Acute Code(s): F33.9 - Major depressive disorder, recurrent, unspecified (5) Situational crisis: Status: Acute Code(s): F43.0 - Acute stress reaction Plan 54 yo male, hx of mood disorder, psychosis, depression, anxiety. Reports SI with plan and intent today as he has been informed by the board of health that his home is no longer viable to live in. Pt believes he will now be homeless. He reports SI with plan and intent and an increase in voices, depression, anxiety. Plan: Admit, 15 minute checks, CV Collateral Contact Diagnostics as needed. Continue current regime Lamictal 25 mg HS- Target-impulsivity Olanzapine 5 mg bid- Target- perceptual alterations, impulsivity Discharge planning 10/14: Continue tx Continue to monitor BP- hypertensive- may need hospitalist consult to add meds vs time for BP to resolve from anxiety from current crisis. 10/15: overwhelmed and anxious, fearing he will be homeless soon. continue current mgmt. W to meet with pt thursday. Reason for continued inpatient stay Substantial Risk for: inability to function Time Spent With Patient Time: Total time managing care of this patient today ____ minutes.
[2024-10-15 19:50] VITALS: BP 131/61; PULSE 80; RESP 16; TEMP 36.9; O2SAT 96
[2024-10-15] MEDS: Tamsulosin HCL 0.4 MG CAPSULE PO (21:24)
[2024-10-15] MEDS: lamoTRIgine 25 MG TABLET PO (21:24)
[2024-10-15 21:43] LABS: Glucose, Whole Blood 127 mg/dL (60-115)
[2024-10-16] MEDS: Omeprazole 40 MG CAPSULE.DR PO (06:19)
[2024-10-16 07:47] LABS: Glucose, Whole Blood 90 mg/dL (60-115)
[2024-10-16 08:00] VITALS: BP 137/69; PULSE 72; RESP 14; TEMP 36.5; O2SAT 94
[2024-10-16] MEDS: OLANZapine 5 MG TABLET PO ×2 (08:19→21:19)
[2024-10-16] MEDS: Losartan Potassium 25 MG TABLET PO (08:19)
[2024-10-16] MEDS: Cholecalciferol (Vitamin D3) 25 MCG TABLET 50 MCG PO (08:20)
[2024-10-16] MEDS: Atorvastatin Calcium 40 MG TABLET PO (08:20)
[2024-10-16] MEDS: metFORMIN HCl 1,000 MG TABLET 1000 MG PO ×2 (08:20→21:16)
[2024-10-16] MEDS: Ferrous Sulfate 324 MG TABLET.DR PO (08:20)
[2024-10-16] MEDS: Escitalopram Oxalate 20 MG TABLET PO (08:20)
[2024-10-16] MEDS: Insulin Glargine,Hum.rec.anlog 100 UNIT/ML 10 ML VIAL 15 UNIT SUBCUT (08:22)
[2024-10-16] MEDS: Albuterol Sulfate 90 MCG 8 GM INHALER 2 PUFF INHALE (08:34)
--- NOTE | 2024-10-16 16:52 | HO.PSYCHPN ---
Subjective Subjective Date of Service: 10/16/24 Reason For Visit: SI Interim History: feeling better. no requests, no issues. per staff, dep/anx. blunted. taking meds. passive wish. slept 8 hours. Mental Status Exam Mental Status Exam Patient Appearance: Appropriate Patient Orientation: Person, Place, Time and Situation Level of Consciousness: Alert Patient Behavior: Good Eye Contact Mood Description: Depressed, Anxious and Apprehensive Affect Description: Anxious, Flat and Apprehensive Patient Cognition Impaired: No Ability to Follow Directions: Good Speech Pattern: Spontaneous Speech Memory Description: Episodic Impaired Hallucinations: None (denies) Delusions: Not Present Thought Process: Rumination Depressive Symptoms: Increased Anxiety, Loss of Int. in Activity, Hopelessness, Unhappiness, Low Self Esteem and Difficulty Concentrating Judgement: Fair Diagnostics Vital Signs (24Hr): Vital Signs - 24 hr 10/15/24 19:50 10/16/24 08:00 Temperature 98.4 F 97.7 F Pulse Rate 80 72 Respiratory Rate 16 14 Blood Pressure 131/61 137/69 Pulse Oximetry 96 94 Oxygen Delivery Method Room Air Room Air BMI result Body Mass Index 34.6 Labs 10/12/24 18:46 10/14/24 08:01 Labs: Laboratory Results - last 48 hr 10/14/24 10/15/24 10/15/24 21:23 07:52 21:38 POC Glucose 141 H 97 127 H 10/16/24 07:40 POC Glucose 90 Medications Medications Current Medications Acetaminophen (Acetaminophen 325 Mg Tablet) 650 mg PO Q6H PRN PRN Reason: Headache/Pain, Scale 1-10 Al Hydroxide/Mg Hydroxide (Magnesium Hydrox/Alum Hydrox 30 Ml Oral.Susp) 30 ml PO Q6H PRN PRN Reason: Heartburn/Nausea Albuterol Sulfate (Albuterol Sulfate 90 Mcg 8 Gm Inhaler) 2 puff INHALE Q4H PRN PRN Reason: for wheezing Last Admin: 10/16/24 08:34 Dose: 2 puff Atorvastatin Calcium (Atorvastatin Calcium 40 Mg Tablet) 40 mg PO DAILY [facility], [facility] Last Admin: 10/16/24 08:20 Dose: 40 mg Escitalopram Oxalate (Escitalopram Oxalate 20 Mg Tablet) 20 mg PO DAILY [facility] Last Admin: 10/16/24 08:20 Dose: 20 mg Ferrous Sulfate (Ferrous Sulfate 324 Mg Tablet.) 324 mg PO DAILY [facility] Last Admin: 10/16/24 08:20 Dose: 324 mg Hydroxyzine HCl (Hydroxyzine Hcl 25 Mg Tablet) 25 mg PO TID PRN PRN Reason: anxiety Insulin Glargine (Insulin Glargine,Hum.Rec.Anlog 100 Unit/Ml 10 Ml Vial) 15 unit SUBCUT DAILY [facility], [facility] Last Admin: 10/16/24 08:22 Dose: 15 unit Lamotrigine (Lamotrigine 25 Mg Tablet) 25 mg PO BEDTIME [facility] Last Admin: 10/15/24 21:24 Dose: 25 mg Losartan Potassium (Losartan Potassium 25 Mg Tablet) 25 mg PO DAILY [facility], [facility]; Protocol Last Admin: 10/16/24 08:19 Dose: 25 mg Magnesium Hydroxide (Milk Of Magnesia 30 Ml Oral.Susp) 30 ml PO DAILY PRN PRN Reason: Constipation Metformin HCl (Metformin Hcl 1,000 Mg Tablet) 1,000 mg PO BID [facility] Last Admin: 10/16/24 08:20 Dose: 1,000 mg Nicotine Polacrilex (Nicotine Polacrilex 2 Mg Gum) 4 mg BUCCAL Q2H PRN PRN Reason: Nicotine Cravings Olanzapine (Olanzapine 5 Mg Tablet) 5 mg PO BID [facility] Last Admin: 10/16/24 08:19 Dose: 5 mg Omeprazole (Omeprazole 40 Mg Capsule.Dr) 40 mg PO DAILY@0630 [facility] Last Admin: 10/16/24 06:19 Dose: 40 mg Tamsulosin HCl (Tamsulosin Hcl 0.4 Mg Capsule) 0.4 mg PO BEDTIME [facility] Last Admin: 10/15/24 21:24 Dose: 0.4 mg Trazodone HCl (Trazodone Hcl 50 Mg Tablet) 50 mg PO BEDTIME MRX1 PRN PRN Reason: Insomnia Triamcinolone Acetonide (Triamcinolone Acet 0.5 % Oint 15 Gm Tube) 1 appl TOPICAL DAILY [facility], [facility] Last Admin: 10/16/24 08:34 Dose: Not Given Vitamin D (Cholecalciferol (Vitamin D3) 25 Mcg Tablet) 50 mcg PO DAILY [facility] Last Admin: 10/16/24 08:20 Dose: 50 mcg Allergies Allergies Allergy/AdvReac Type Severity Reaction Status Date / Time pollen extracts [POLLEN] Allergy Mild RUNNY NOSE Verified 10/12/24 16:53 cat dander [CATS] Allergy Unknown UNKNOWN Verified 10/12/24 16:53 dog dander [DOGS] Allergy Unknown UNKNOWN Verified 10/12/24 16:53 mold [MOLD] Allergy Unknown UNKNOWN Verified 10/12/24 16:53 Assessment & Plan Assessment & Plan (1) Suicidal ideation: Status: Acute Code(s): R45.851 - Suicidal ideations (2) Mood disorder: Status: Acute Code(s): F39 - Unspecified mood [affective] disorder (3) CATIE (generalized anxiety disorder): Status: Acute Code(s): F41.1 - Generalized anxiety disorder (4) MDD (major depressive disorder), recurrent episode: Status: Acute Code(s): F33.9 - Major depressive disorder, recurrent, unspecified (5) Situational crisis: Status: Acute Code(s): F43.0 - Acute stress reaction Plan 54 yo male, hx of mood disorder, psychosis, depression, anxiety. Reports SI with plan and intent today as he has been informed by the board of health that his home is no longer viable to live in. Pt believes he will now be homeless. He reports SI with plan and intent and an increase in voices, depression, anxiety. Plan: Admit, 15 minute checks, CV Collateral Contact Diagnostics as needed. Continue current regime Lamictal 25 mg HS- Target-impulsivity Olanzapine 5 mg bid- Target- perceptual alterations, impulsivity Discharge planning 10/14: Continue tx Continue to monitor BP- hypertensive- may need hospitalist consult to add meds vs time for BP to resolve from anxiety from current crisis. 10/15: overwhelmed and anxious, fearing he will be homeless soon. continue current mgmt. SW to meet with pt thursday. 10/16: more insouciant today regarding his predicament. feeling better. continue current mgmt. Reason for continued inpatient stay Substantial Risk for: inability to function Time Spent With Patient Time: Total time managing care of this patient today ____ minutes.
[2024-10-16 20:00] VITALS: BP 114/62; PULSE 90; RESP 16; TEMP 36.9; O2SAT 97
[2024-10-16 20:55] LABS: Glucose, Whole Blood 167 mg/dL (60-115)
[2024-10-16] MEDS: Tamsulosin HCL 0.4 MG CAPSULE PO (21:18)
[2024-10-16] MEDS: lamoTRIgine 25 MG TABLET PO (21:18)
[2024-10-17] MEDS: Magnesium Hydrox/Alum Hydrox 30 ML ORAL.SUSP PO (05:20)
[2024-10-17] MEDS: Omeprazole 40 MG CAPSULE.DR PO (05:20)
[2024-10-17 07:43] LABS: Glucose, Whole Blood 104 mg/dL (60-115)
[2024-10-17 07:45] VITALS: BP 138/72; PULSE 74; RESP 16; TEMP 36.5; O2SAT 97
[2024-10-17] MEDS: metFORMIN HCl 1,000 MG TABLET 1000 MG PO ×2 (08:10→21:20)
[2024-10-17 08:11] VITALS: BP 138/72
[2024-10-17] MEDS: OLANZapine 5 MG TABLET PO ×2 (08:11→21:21)
[2024-10-17] MEDS: Atorvastatin Calcium 40 MG TABLET PO (08:11)
[2024-10-17] MEDS: Cholecalciferol (Vitamin D3) 25 MCG TABLET 50 MCG PO (08:11)
[2024-10-17] MEDS: Escitalopram Oxalate 20 MG TABLET PO (08:11)
[2024-10-17] MEDS: Ferrous Sulfate 324 MG TABLET.DR PO (08:11)
[2024-10-17] MEDS: Insulin Glargine,Hum.rec.anlog 100 UNIT/ML 10 ML VIAL 15 UNIT SUBCUT (08:11)
[2024-10-17] MEDS: Losartan Potassium 25 MG TABLET PO (08:11)
--- NOTE | 2024-10-17 12:32 | P.PNPSI_ITS ---
Subjective Subjective Date of Service: 10/17/24 Reason For Visit: SI Subjective Notes: Conditional Voluntary Interim History: Active on unit. Pt reports feeling okay today; continues to report auditory hallucinations telling him to harm himself. denies SI/HI/VH. Per nursing, slept 6 hours last night. Continue current tx plan. Medication Compliance: Yes Side effects from medications: No Attending Groups: Yes Mental Status Exam Mental Status Exam Narrative: Pt is alert and oriented; behavior is cooperative and calm; dressed in casual attire; mood is described as okay ; eye contact appropriate; Speech is normal rate, volume and not pressured; thought process is organized; Thought content is on tx; denies SI/HI/VH. Patient reports auditory hallucinations telling him to harm himself. Diagnostics Vital Signs (24Hr): Vital Signs - 24 hr 10/16/24 20:00 10/17/24 07:45 10/17/24 08:11 Temperature 98.4 F 97.7 F Pulse Rate 90 74 Respiratory Rate 16 16 Blood Pressure 114/62 138/72 138/72 Pulse Oximetry 97 97 Oxygen Delivery Method Room Air Room Air BMI result Body Mass Index 34.6 Labs 10/12/24 18:46 10/14/24 08:01 Labs: Laboratory Results - last 48 hr 10/15/24 10/16/24 10/16/24 21:38 07:40 20:51 POC Glucose 127 H 90 167 H 10/17/24 07:35 POC Glucose 104 Medications Medications Current Medications Acetaminophen (Acetaminophen 325 Mg Tablet) 650 mg PO Q6H PRN PRN Reason: Headache/Pain, Scale 1-10 Al Hydroxide/Mg Hydroxide (Magnesium Hydrox/Alum Hydrox 30 Ml Oral.Susp) 30 ml PO Q6H PRN PRN Reason: Heartburn/Nausea Last Admin: 10/17/24 05:20 Dose: 30 ml Albuterol Sulfate (Albuterol Sulfate 90 Mcg 8 Gm Inhaler) 2 puff INHALE Q4H PRN PRN Reason: for wheezing Last Admin: 10/16/24 08:34 Dose: 2 puff Atorvastatin Calcium (Atorvastatin Calcium 40 Mg Tablet) 40 mg PO DAILY [facility] Last Admin: 10/17/24 08:11 Dose: 40 mg Escitalopram Oxalate (Escitalopram Oxalate 20 Mg Tablet) 20 mg PO DAILY [facility] Last Admin: 10/17/24 08:11 Dose: 20 mg Ferrous Sulfate (Ferrous Sulfate 324 Mg Tablet.) 324 mg PO DAILY [facility] Last Admin: 10/17/24 08:11 Dose: 324 mg Hydroxyzine HCl (Hydroxyzine Hcl 25 Mg Tablet) 25 mg PO TID PRN PRN Reason: anxiety Insulin Glargine (Insulin Glargine,Hum.Rec.Anlog 100 Unit/Ml 10 Ml Vial) 15 unit SUBCUT DAILY [facility] Last Admin: 10/17/24 08:11 Dose: 15 unit Lamotrigine (Lamotrigine 25 Mg Tablet) 25 mg PO BEDTIME [facility] Last Admin: 10/16/24 21:18 Dose: 25 mg Losartan Potassium (Losartan Potassium 25 Mg Tablet) 25 mg PO DAILY [facility]; Protocol Last Admin: 10/17/24 08:11 Dose: 25 mg Magnesium Hydroxide (Milk Of Magnesia 30 Ml Oral.Susp) 30 ml PO DAILY PRN PRN Reason: Constipation Metformin HCl (Metformin Hcl 1,000 Mg Tablet) 1,000 mg PO BID [facility] Last Admin: 10/17/24 08:10 Dose: 1,000 mg Nicotine Polacrilex (Nicotine Polacrilex 2 Mg Gum) 4 mg BUCCAL Q2H PRN PRN Reason: Nicotine Cravings Olanzapine (Olanzapine 5 Mg Tablet) 5 mg PO BID [facility] Last Admin: 10/17/24 08:11 Dose: 5 mg Omeprazole (Omeprazole 40 Mg Capsule.) 40 mg PO DAILY@0630 [facility] Last Admin: 10/17/24 05:20 Dose: 40 mg Tamsulosin HCl (Tamsulosin Hcl 0.4 Mg Capsule) 0.4 mg PO BEDTIME [facility] Last Admin: 10/16/24 21:18 Dose: 0.4 mg Trazodone HCl (Trazodone Hcl 50 Mg Tablet) 50 mg PO BEDTIME MRX1 PRN PRN Reason: Insomnia Triamcinolone Acetonide (Triamcinolone Acet 0.5 % Oint 15 Gm Tube) 1 appl TOPICAL DAILY [facility] Last Admin: 10/17/24 08:12 Dose: Not Given Vitamin D (Cholecalciferol (Vitamin D3) 25 Mcg Tablet) 50 mcg PO DAILY [facility] Last Admin: 10/17/24 08:11 Dose: 50 mcg Allergies Allergies Allergy/AdvReac Type Severity Reaction Status Date / Time pollen extracts [POLLEN] Allergy Mild RUNNY NOSE Verified 10/12/24 16:53 cat dander [CATS] Allergy Unknown UNKNOWN Verified 10/12/24 16:53 dog dander [DOGS] Allergy Unknown UNKNOWN Verified 10/12/24 16:53 mold [MOLD] Allergy Unknown UNKNOWN Verified 10/12/24 16:53 Assessment & Plan Assessment & Plan (1) Suicidal ideation: Status: Acute Code(s): R45.851 - Suicidal ideations (2) Mood disorder: Status: Acute Code(s): F39 - Unspecified mood [affective] disorder (3) CATIE (generalized anxiety disorder): Status: Acute Code(s): F41.1 - Generalized anxiety disorder (4) MDD (major depressive disorder), recurrent episode: Status: Acute Code(s): F33.9 - Major depressive disorder, recurrent, unspecified (5) Situational crisis: Status: Acute Code(s): F43.0 - Acute stress reaction Plan 54 yo male, hx of mood disorder, psychosis, depression, anxiety. Reports SI with plan and intent today as he has been informed by the board of [facility] that his home is no longer viable to live in. Pt believes he will now be homeless. He reports SI with plan and intent and an increase in voices, depression, anxiety. Plan: Admit, 15 minute checks, CV Collateral Contact Diagnostics as needed. Continue current regime Lamictal 25 mg HS- Target-impulsivity Olanzapine 5 mg bid- Target- perceptual alterations, impulsivity Discharge planning 10/14: Continue tx Continue to monitor BP- hypertensive- may need hospitalist consult to add meds vs time for BP to resolve from anxiety from current crisis. 10/15: overwhelmed and anxious, fearing he will be homeless soon. continue current mgmt. SW to meet with pt thursday. 10/16: more insouciant today regarding his predicament. feeling better. continue current mgmt. 10/17: Active on unit. Pt reports feeling okay today; continues to report auditory hallucinations telling him to harm himself. denies SI/HI/VH. Per nursing, slept 6 hours last night. Continue current tx plan. Patient educated on: diagnosis and medication risk/benefits Reason for continued inpatient stay Substantial Risk for: med/psych decompensation Time Spent With Patient Time: Total time managing care of this patient today _20___ minutes.
[2024-10-17] MEDS: Albuterol Sulfate 90 MCG 8 GM INHALER 2 PUFF INHALE (17:36)
[2024-10-17 20:00] VITALS: BP 133/74; PULSE 93; RESP 16; TEMP 36.9; O2SAT 97
[2024-10-17] MEDS: lamoTRIgine 25 MG TABLET PO (21:20)
[2024-10-17] MEDS: Tamsulosin HCL 0.4 MG CAPSULE PO (21:20)
[2024-10-18 01:28] LABS: Glucose, Whole Blood 169 mg/dL (60-115)
[2024-10-18] MEDS: Omeprazole 40 MG CAPSULE.DR PO (06:46)
[2024-10-18 07:47] LABS: Glucose, Whole Blood 108 mg/dL (60-115)
[2024-10-18 07:56] VITALS: BP 120/64; PULSE 72; RESP 16; TEMP 36.7; O2SAT 94
[2024-10-18] MEDS: metFORMIN HCl 1,000 MG TABLET 1000 MG PO ×2 (08:14→21:45)
[2024-10-18] MEDS: OLANZapine 5 MG TABLET PO ×2 (08:14→21:46)
[2024-10-18] MEDS: Escitalopram Oxalate 20 MG TABLET PO (08:15)
[2024-10-18] MEDS: Ferrous Sulfate 324 MG TABLET.DR PO (08:15)
[2024-10-18] MEDS: Losartan Potassium 25 MG TABLET PO (08:15)
[2024-10-18] MEDS: Cholecalciferol (Vitamin D3) 25 MCG TABLET 50 MCG PO (08:15)
[2024-10-18] MEDS: Atorvastatin Calcium 40 MG TABLET PO (08:16)
[2024-10-18] MEDS: Insulin Glargine,Hum.rec.anlog 100 UNIT/ML 10 ML VIAL 15 UNIT SUBCUT (08:16)
--- NOTE | 2024-10-18 09:20 | P.PNPSI_ITS ---
Subjective Subjective Date of Service: 10/18/24 Reason For Visit: SI Subjective Notes: Conditional Voluntary Interim History: Pt reports feeling better than when he came first to the hospital. Continues to report auditory hallucinations but states they are quieter . denies SI/HI/VH. Plan to discharge on if continues to improve; pt aware. Medication Compliance: Yes Side effects from medications: No Attending Groups: No Mental Status Exam Mental Status Exam Narrative: Pt is alert and oriented; behavior is cooperative and calm; dressed in casual attire; mood is described as better ; eye contact appropriate; Speech is normal rate, volume and not pressured; thought process is organized; Thought content is on tx; denies SI/HI/VH. Patient reports auditory hallucinations are less. Diagnostics Vital Signs (24Hr): Vital Signs - 24 hr 10/17/24 20:00 10/18/24 07:56 Temperature 98.4 F 98.0 F Pulse Rate 93 72 Respiratory Rate 16 16 Blood Pressure 133/74 120/64 Pulse Oximetry 97 94 Oxygen Delivery Method Room Air Room Air BMI result Body Mass Index 34.6 Labs 10/12/24 18:46 10/14/24 08:01 Labs: Laboratory Results - last 48 hr 10/16/24 10/17/24 10/17/24 20:51 07:35 21:14 POC Glucose 167 H 104 169 H 10/18/24 07:43 POC Glucose 108 Medications Medications Current Medications Acetaminophen (Acetaminophen 325 Mg Tablet) 650 mg PO Q6H PRN PRN Reason: Headache/Pain, Scale 1-10 Al Hydroxide/Mg Hydroxide (Magnesium Hydrox/Alum Hydrox 30 Ml Oral.Susp) 30 ml PO Q6H PRN PRN Reason: Heartburn/Nausea Last Admin: 10/17/24 05:20 Dose: 30 ml Albuterol Sulfate (Albuterol Sulfate 90 Mcg 8 Gm Inhaler) 2 puff INHALE Q4H PRN PRN Reason: for wheezing Last Admin: 10/17/24 17:36 Dose: 2 puff Atorvastatin Calcium (Atorvastatin Calcium 40 Mg Tablet) 40 mg PO DAILY ON [facility] Last Admin: 10/18/24 08:16 Dose: 40 mg Escitalopram Oxalate (Escitalopram Oxalate 20 Mg Tablet) 20 mg PO DAILY [facility] Last Admin: 10/18/24 08:15 Dose: 20 mg Ferrous Sulfate (Ferrous Sulfate 324 Mg Tablet.) 324 mg PO DAILY [facility] Last Admin: 10/18/24 08:15 Dose: 324 mg Hydroxyzine HCl (Hydroxyzine Hcl 25 Mg Tablet) 25 mg PO TID PRN PRN Reason: anxiety Insulin Glargine (Insulin Glargine,Hum.Rec.Anlog 100 Unit/Ml 10 Ml Vial) 15 unit SUBCUT DAILY [facility] Last Admin: 10/18/24 08:16 Dose: 15 unit Lamotrigine (Lamotrigine 25 Mg Tablet) 25 mg PO BEDTIME ON [facility] Last Admin: 10/17/24 21:20 Dose: 25 mg Losartan Potassium (Losartan Potassium 25 Mg Tablet) 25 mg PO DAILY [facility]; Protocol Last Admin: 10/18/24 08:15 Dose: 25 mg Magnesium Hydroxide (Milk Of Magnesia 30 Ml Oral.Susp) 30 ml PO DAILY PRN PRN Reason: Constipation Metformin HCl (Metformin Hcl 1,000 Mg Tablet) 1,000 mg PO BID [facility] Last Admin: 10/18/24 08:14 Dose: 1,000 mg Nicotine Polacrilex (Nicotine Polacrilex 2 Mg Gum) 4 mg BUCCAL Q2H PRN PRN Reason: Nicotine Cravings Olanzapine (Olanzapine 5 Mg Tablet) 5 mg PO BID [facility] Last Admin: 10/18/24 08:14 Dose: 5 mg Omeprazole (Omeprazole 40 Mg Capsule.Dr) 40 mg PO DAILY@0630 [facility] Last Admin: 10/18/24 06:46 Dose: 40 mg Tamsulosin HCl (Tamsulosin Hcl 0.4 Mg Capsule) 0.4 mg PO BEDTIME ON [facility] Last Admin: 10/17/24 21:20 Dose: 0.4 mg Trazodone HCl (Trazodone Hcl 50 Mg Tablet) 50 mg PO BEDTIME MRX1 PRN PRN Reason: Insomnia Triamcinolone Acetonide (Triamcinolone Acet 0.5 % Oint 15 Gm Tube) 1 appl TOPICAL DAILY ON [facility] Last Admin: 10/18/24 08:19 Dose: Not Given Vitamin D (Cholecalciferol (Vitamin D3) 25 Mcg Tablet) 50 mcg PO DAILY [facility] Last Admin: 10/18/24 08:15 Dose: 50 mcg Allergies Allergies Allergy/AdvReac Type Severity Reaction Status Date / Time pollen extracts [POLLEN] Allergy Mild RUNNY NOSE Verified 10/12/24 16:53 cat dander [CATS] Allergy Unknown UNKNOWN Verified 10/12/24 16:53 dog dander [DOGS] Allergy Unknown UNKNOWN Verified 10/12/24 16:53 mold [MOLD] Allergy Unknown UNKNOWN Verified 10/12/24 16:53 Assessment & Plan Assessment & Plan (1) Suicidal ideation: Status: Acute Code(s): R45.851 - Suicidal ideations (2) Mood disorder: Status: Acute Code(s): F39 - Unspecified mood [affective] disorder (3) CATIE (generalized anxiety disorder): Status: Acute Code(s): F41.1 - Generalized anxiety disorder (4) MDD (major depressive disorder), recurrent episode: Status: Acute Code(s): F33.9 - Major depressive disorder, recurrent, unspecified (5) Situational crisis: Status: Acute Code(s): F43.0 - Acute stress reaction Plan 54 yo male, hx of mood disorder, psychosis, depression, anxiety. Reports SI with plan and intent today as he has been informed by the board of [facility] that his home is no longer viable to live in. Pt believes he will now be homeless. He reports SI with plan and intent and an increase in voices, depression, anxiety. Plan: Admit, 15 minute checks, CV Collateral Contact Diagnostics as needed. Continue current regime Lamictal 25 mg HS- Target-impulsivity Olanzapine 5 mg bid- Target- perceptual alterations, impulsivity Discharge planning 10/14: Continue tx Continue to monitor BP- hypertensive- may need hospitalist consult to add meds vs time for BP to resolve from anxiety from current crisis. 10/15: overwhelmed and anxious, fearing he will be homeless soon. continue current mgmt. SW to meet with pt thursday. 10/16: more insouciant today regarding his predicament. feeling better. continue current mgmt. 10/17: Active on unit. Pt reports feeling okay today; continues to report auditory hallucinations telling him to harm himself. denies SI/HI/VH. Per nursing, slept 6 hours last night. Continue current tx plan. 10/18:Pt reports feeling better than when he came first to the hospital. Continues to report auditory hallucinations but states they are quieter . denies SI/HI/VH. Plan to discharge on if continues to improve; pt aware. Patient educated on: diagnosis and medication risk/benefits Reason for continued inpatient stay Substantial Risk for: med/psych decompensation Time Spent With Patient Time: Total time managing care of this patient today __20__ minutes.
[2024-10-18] MEDS: Albuterol Sulfate 90 MCG 8 GM INHALER 2 PUFF INHALE ×2 (18:17→23:29)
[2024-10-18 20:00] VITALS: BP 121/67; PULSE 94; RESP 16; TEMP 36.6; O2SAT 98
[2024-10-18] MEDS: Tamsulosin HCL 0.4 MG CAPSULE PO (21:46)
[2024-10-18] MEDS: lamoTRIgine 25 MG TABLET PO (21:47)
[2024-10-18] MEDS: hydrOXYzine HCL 25 MG TABLET PO (21:47)
[2024-10-18] MEDS: traZODone HCL 50 MG TABLET PO (21:47)
[2024-10-18 22:16] LABS: Glucose, Whole Blood 166 mg/dL (60-115)
[2024-10-19] MEDS: Omeprazole 40 MG CAPSULE.DR PO (05:56)
[2024-10-19 08:00] VITALS: BP 126/59; PULSE 73; RESP 16; TEMP 36.6; O2SAT 94
[2024-10-19 08:15] LABS: Glucose, Whole Blood 119 mg/dL (60-115)
[2024-10-19] MEDS: OLANZapine 5 MG TABLET PO ×2 (08:37→21:08)
[2024-10-19] MEDS: Atorvastatin Calcium 40 MG TABLET PO (08:37)
[2024-10-19] MEDS: metFORMIN HCl 1,000 MG TABLET 1000 MG PO ×2 (08:37→21:08)
[2024-10-19] MEDS: Losartan Potassium 25 MG TABLET PO (08:37)
[2024-10-19] MEDS: Escitalopram Oxalate 20 MG TABLET PO (08:37)
[2024-10-19] MEDS: Cholecalciferol (Vitamin D3) 25 MCG TABLET 50 MCG PO (08:38)
[2024-10-19] MEDS: Ferrous Sulfate 324 MG TABLET.DR PO (08:38)
[2024-10-19] MEDS: Insulin Glargine,Hum.rec.anlog 100 UNIT/ML 10 ML VIAL 15 UNIT SUBCUT (08:38)
--- NOTE | 2024-10-19 13:41 | HO.PSYCHPN ---
Subjective Subjective Date of Service: 10/19/24 Reason For Visit: SI Subjective Notes: Conditional Voluntary Interim History: Active on unit. Pt reports feeling good and ready for discharge tomorrow. Continues to report auditory hallucinations; reports they are quieter; pt stated, I wouldn't act on the voices . He reports passive SI that comes and goes but I wouldn't act on it ; pt denies plan or intent. Per nursing, slept 8 hours last night. Pt reports he plans on following up with outpatient providers. Medication Compliance: Yes Side effects from medications: No Attending Groups: Intermittent Mental Status Exam Mental Status Exam Narrative: Pt is alert and oriented; behavior is cooperative and calm; dressed in casual attire; mood is described as good ; eye contact appropriate; Speech is normal rate, volume and not pressured; thought process is organized; Thought content is on discharge; denies HI/VH. Patient reports auditory hallucinations are less. Passive SI with no plan or intent. Diagnostics Vital Signs (24Hr): Vital Signs - 24 hr 10/18/24 20:00 10/19/24 08:00 Temperature 98 F 97.9 F Pulse Rate 94 73 Respiratory Rate 16 16 Blood Pressure 121/67 126/59 L Pulse Oximetry 98 94 Oxygen Delivery Method Room Air Room Air BMI result Body Mass Index 34.6 Labs 10/12/24 18:46 10/14/24 08:01 Labs: Laboratory Results - last 48 hr 10/17/24 10/18/24 10/18/24 21:14 07:43 21:56 POC Glucose 169 H 108 166 H 10/19/24 07:58 POC Glucose 119 H Medications Medications Current Medications Acetaminophen (Acetaminophen 325 Mg Tablet) 650 mg PO Q6H PRN PRN Reason: Headache/Pain, Scale 1-10 Al Hydroxide/Mg Hydroxide (Magnesium Hydrox/Alum Hydrox 30 Ml Oral.Susp) 30 ml PO Q6H PRN PRN Reason: Heartburn/Nausea Last Admin: 10/17/24 05:20 Dose: 30 ml Albuterol Sulfate (Albuterol Sulfate 90 Mcg 8 Gm Inhaler) 2 puff INHALE Q4H PRN PRN Reason: for wheezing Last Admin: 10/18/24 23:29 Dose: 2 puff Atorvastatin Calcium (Atorvastatin Calcium 40 Mg Tablet) 40 mg PO DAILY DANIEL Last Admin: 10/19/24 08:37 Dose: 40 mg Escitalopram Oxalate (Escitalopram Oxalate 20 Mg Tablet) 20 mg PO DAILY [facility] Last Admin: 10/19/24 08:37 Dose: 20 mg Ferrous Sulfate (Ferrous Sulfate 324 Mg Tablet.) 324 mg PO DAILY [facility] Last Admin: 10/19/24 08:38 Dose: 324 mg Hydroxyzine HCl (Hydroxyzine Hcl 25 Mg Tablet) 25 mg PO TID PRN PRN Reason: anxiety Last Admin: 10/18/24 21:47 Dose: 25 mg Insulin Glargine (Insulin Glargine,Hum.Rec.Anlog 100 Unit/Ml 10 Ml Vial) 15 unit SUBCUT DAILY [facility] Last Admin: 10/19/24 08:38 Dose: 15 unit Lamotrigine (Lamotrigine 25 Mg Tablet) 25 mg PO BEDTIME [facility] Last Admin: 10/18/24 21:47 Dose: 25 mg Losartan Potassium (Losartan Potassium 25 Mg Tablet) 25 mg PO DAILY [facility]; Protocol Last Admin: 10/19/24 08:37 Dose: 25 mg Magnesium Hydroxide (Milk Of Magnesia 30 Ml Oral.Susp) 30 ml PO DAILY PRN PRN Reason: Constipation Metformin HCl (Metformin Hcl 1,000 Mg Tablet) 1,000 mg PO BID [facility] Last Admin: 10/19/24 08:37 Dose: 1,000 mg Nicotine Polacrilex (Nicotine Polacrilex 2 Mg Gum) 4 mg BUCCAL Q2H PRN PRN Reason: Nicotine Cravings Olanzapine (Olanzapine 5 Mg Tablet) 5 mg PO BID [facility] Last Admin: 10/19/24 08:37 Dose: 5 mg Omeprazole (Omeprazole 40 Mg Capsule.) 40 mg PO DAILY@0630 [facility] Last Admin: 10/19/24 05:56 Dose: 40 mg Tamsulosin HCl (Tamsulosin Hcl 0.4 Mg Capsule) 0.4 mg PO BEDTIME [facility] Last Admin: 10/18/24 21:46 Dose: 0.4 mg Trazodone HCl (Trazodone Hcl 50 Mg Tablet) 50 mg PO BEDTIME MRX1 PRN PRN Reason: Insomnia Last Admin: 10/18/24 21:47 Dose: 50 mg Triamcinolone Acetonide (Triamcinolone Acet 0.5 % Oint 15 Gm Tube) 1 appl TOPICAL DAILY [facility] Last Admin: 10/19/24 08:40 Dose: Not Given Vitamin D (Cholecalciferol (Vitamin D3) 25 Mcg Tablet) 50 mcg PO DAILY DANIEL Last Admin: 10/19/24 08:38 Dose: 50 mcg Allergies Allergies Allergy/AdvReac Type Severity Reaction Status Date / Time pollen extracts [POLLEN] Allergy Mild RUNNY NOSE Verified 10/12/24 16:53 cat dander [CATS] Allergy Unknown UNKNOWN Verified 10/12/24 16:53 dog dander [DOGS] Allergy Unknown UNKNOWN Verified 10/12/24 16:53 mold [MOLD] Allergy Unknown UNKNOWN Verified 10/12/24 16:53 Assessment & Plan Assessment & Plan (1) MDD (major depressive disorder), recurrent episode: Status: Acute Code(s): F33.9 - Major depressive disorder, recurrent, unspecified (2) CATIE (generalized anxiety disorder): Status: Acute Code(s): F41.1 - Generalized anxiety disorder (3) Mood disorder: Status: Acute Code(s): F39 - Unspecified mood [affective] disorder (4) Suicidal ideation: Status: Acute Code(s): R45.851 - Suicidal ideations (5) Situational crisis: Status: Acute Code(s): F43.0 - Acute stress reaction Plan 54 yo male, hx of mood disorder, psychosis, depression, anxiety. Reports SI with plan and intent today as he has been informed by the board of [facility] that his home is no longer viable to live in. Pt believes he will now be homeless. He reports SI with plan and intent and an increase in voices, depression, anxiety. Plan: Admit, 15 minute checks, CV Collateral Contact Diagnostics as needed. Continue current regime Lamictal 25 mg HS- Target-impulsivity Olanzapine 5 mg bid- Target- perceptual alterations, impulsivity Discharge planning 10/14: Continue tx Continue to monitor BP- hypertensive- may need hospitalist consult to add meds vs time for BP to resolve from anxiety from current crisis. 10/15: overwhelmed and anxious, fearing he will be homeless soon. continue current mgmt. SW to meet with pt thursday. 10/16: more insouciant today regarding his predicament. feeling better. continue current mgmt. 10/17: Active on unit. Pt reports feeling okay today; continues to report auditory hallucinations telling him to harm himself. denies SI/HI/VH. Per nursing, slept 6 hours last night. Continue current tx plan. 10/18:Pt reports feeling better than when he came first to the hospital. Continues to report auditory hallucinations but states they are quieter . denies SI/HI/VH. Plan to discharge on if continues to improve; pt aware. 10/19: Active on unit. Pt reports feeling good and ready for discharge tomorrow. Continues to report auditory hallucinations; reports they are quieter; pt stated, I wouldn't act on the voices . He reports passive SI that comes and goes but I wouldn't act on it ; pt denies plan or intent. Per nursing, slept 8 hours last night. Pt reports he plans on following up with outpatient providers. Patient educated on: diagnosis, medication risk/benefits and therapeutic strategies Reason for continued inpatient stay Substantial Risk for: stable for discharge Time Spent With Patient Time: Total time managing care of this patient today _20___ minutes.
[2024-10-19] MEDS: Albuterol Sulfate 90 MCG 8 GM INHALER 2 PUFF INHALE (15:21)
[2024-10-19] MEDS: Magnesium Hydrox/Alum Hydrox 30 ML ORAL.SUSP PO (15:21)
[2024-10-19 19:20] VITALS: BP 129/61; PULSE 89; RESP 16; TEMP 36.4; O2SAT 98
[2024-10-19 20:19] LABS: Glucose, Whole Blood 260 mg/dL (60-115)
[2024-10-19] MEDS: lamoTRIgine 25 MG TABLET PO (21:08)
[2024-10-19] MEDS: hydrOXYzine HCL 25 MG TABLET PO (21:08)
[2024-10-19] MEDS: traZODone HCL 50 MG TABLET PO (21:08)
[2024-10-19] MEDS: Tamsulosin HCL 0.4 MG CAPSULE PO (21:08)
[2024-10-20] MEDS: Magnesium Hydrox/Alum Hydrox 30 ML ORAL.SUSP PO (02:23)
[2024-10-20] MEDS: Albuterol Sulfate 90 MCG 8 GM INHALER 2 PUFF INHALE ×2 (02:23→10:38)
[2024-10-20] MEDS: Omeprazole 40 MG CAPSULE.DR PO (06:19)
[2024-10-20 08:00] VITALS: BP 124/58; PULSE 74; RESP 18; TEMP 36.9; O2SAT 95
[2024-10-20 08:16] LABS: Glucose, Whole Blood 142 mg/dL (60-115)
[2024-10-20] MEDS: Insulin Glargine,Hum.rec.anlog 100 UNIT/ML 10 ML VIAL 15 UNIT SUBCUT (08:27)
[2024-10-20] MEDS: metFORMIN HCl 1,000 MG TABLET 1000 MG PO (08:28)
[2024-10-20] MEDS: OLANZapine 5 MG TABLET PO (08:28)
[2024-10-20 08:29] VITALS: BP 124/58
[2024-10-20] MEDS: Atorvastatin Calcium 40 MG TABLET PO (08:29)
[2024-10-20] MEDS: Escitalopram Oxalate 20 MG TABLET PO (08:29)
[2024-10-20] MEDS: Ferrous Sulfate 324 MG TABLET.DR PO (08:29)
[2024-10-20] MEDS: Cholecalciferol (Vitamin D3) 25 MCG TABLET 50 MCG PO (08:29)
[2024-10-20] MEDS: Losartan Potassium 25 MG TABLET PO (08:29)
--- NOTE | 2024-10-20 08:54 | P.DS_ITS ---
DS: Providers Provider Date of Service: 10/20/24 Date of admission: 10/13/24 11:38 Date of discharge: 10/20/24 Primary care physician: Bon Arvizu MD Admitting clinician: Kaitlyn Long Attending physician on admission: Federico Mauro Attending physician on discharge: Federico Mauro Discharging clinician: Vicky Hicks DS: Diagnosis Discharge Diagnosis (1) MDD (major depressive disorder), recurrent episode: Status: Acute (2) CATIE (generalized anxiety disorder): Status: Acute (3) Mood disorder: Status: Acute (4) Suicidal ideation: Status: Acute (5) Situational crisis: Status: Acute DS: Medications Discharge Medications Home Medications: Home Medications ?Medication ?Instructions ?Recorded ?Confirmed ferrous sulfate 325 mg (65 mg 325 mg PO DAILY 06/17/24 10/12/24 iron) tablet omeprazole 40 mg capsule,delayed 40 mg PO DAILY 06/17/24 10/12/24 release losartan 25 mg tablet 25 mg PO DAILY 09/13/24 10/12/24 betamethasone dipropionate 0.05 % 1 appl topical DAILY wound 10/12/24 10/12/24 topical cream cholecalciferol (vitamin D3) 50 50 mcg PO DAILY 10/12/24 10/12/24 mcg (2,000 unit) capsule insulin glargine 100 unit/mL (3 15 unit subcut DAILY 10/12/24 10/12/24 mL) subcutaneous pen (Lantus Solostar U-100 Insulin) Previous Rx's ?Medication ?Instructions ?Recorded atorvastatin 40 mg tablet (Lipitor) 40 mg PO DAILY #7 tabs 06/28/24 tamsulosin 0.4 mg capsule (Flomax) 0.4 mg PO BEDTIME #7 caps 06/28/24 metformin 1,000 mg tablet 1,000 mg PO BID 90 days #180 tabs 08/29/24 albuterol sulfate 90 mcg/actuation 2 puff inhalation Q4-6H PRN for 08/30/24 aerosol inhaler (Ventolin HFA) wheezing #18 ea hydroxyzine HCl 25 mg tablet 25 mg PO TID PRN anxiety #20 tabs 10/04/24 escitalopram oxalate 20 mg tablet 20 mg PO QAM #90 tabs 10/06/24 lamotrigine 25 mg tablet 25 mg PO BEDTIME 14 days #14 tabs 10/19/24 olanzapine 5 mg tablet 5 mg PO BID 30 days #60 tabs 10/19/24 Mental Status Exam Mental Status Exam Narrative: Pt is alert and oriented; behavior is cooperative and calm; dressed in casual attire; mood is described as good ; eye contact appropriate; Speech is normal rate, volume and not pressured; thought process is organized; Thought content is on discharge; denies SI/HI/VH. Patient reports auditory hallucinations are less. Data Data Completed and Pending Completed studies during hospitalization [Text1]: 10/13/24 10/14/24 10/14/24 21:36 08:01 08:06 Sodium 143 Potassium 4.4 Chloride 107 Carbon Dioxide 28 Anion Gap 12 BUN 27 H Creatinine 1.39 Estim Creat Clear Calc 70.7 Estimated GFR 53 POC Glucose 124 H 110 Random Glucose 116 H Estimat Average Glucose 111 Hemoglobin A1c % 5.5 Calcium 10.1 D Total Bilirubin 0.6 AST 19 ALT 14 Alkaline Phosphatase 86 Total Protein 6.9 Albumin 4.1 Triglycerides 207 H Cholesterol 128 LDL Cholesterol, Calc 56 HDL Cholesterol 31 L TSH 0.97 10/14/24 10/15/24 10/15/24 21:23 07:52 21:38 Sodium Potassium Chloride Carbon Dioxide Anion Gap BUN Creatinine Estim Creat Clear Calc Estimated GFR POC Glucose 141 H 97 127 H Random Glucose Estimat Average Glucose Hemoglobin A1c % Calcium Total Bilirubin AST ALT Alkaline Phosphatase Total Protein Albumin Triglycerides Cholesterol LDL Cholesterol, Calc HDL Cholesterol TSH 10/16/24 10/16/24 10/17/24 07:40 20:51 07:35 Sodium Potassium Chloride Carbon Dioxide Anion Gap BUN Creatinine Estim Creat Clear Calc Estimated GFR POC Glucose 90 167 H 104 Random Glucose Estimat Average Glucose Hemoglobin A1c % Calcium Total Bilirubin AST ALT Alkaline Phosphatase Total Protein Albumin Triglycerides Cholesterol LDL Cholesterol, Calc HDL Cholesterol TSH 10/17/24 10/18/24 10/18/24 21:14 07:43 21:56 Sodium Potassium Chloride Carbon Dioxide Anion Gap BUN Creatinine Estim Creat Clear Calc Estimated GFR POC Glucose 169 H 108 166 H Random Glucose Estimat Average Glucose Hemoglobin A1c % Calcium Total Bilirubin AST ALT Alkaline Phosphatase Total Protein Albumin Triglycerides Cholesterol LDL Cholesterol, Calc HDL Cholesterol TSH 10/19/24 10/19/24 10/20/24 07:58 20:15 07:59 Sodium Potassium Chloride Carbon Dioxide Anion Gap BUN Creatinine Estim Creat Clear Calc Estimated GFR POC Glucose 119 H 260 H 142 H Random Glucose Estimat Average Glucose Hemoglobin A1c % Calcium Total Bilirubin AST ALT Alkaline Phosphatase Total Protein Albumin Triglycerides Cholesterol LDL Cholesterol, Calc HDL Cholesterol TSH DS: Summary Hospital Course Hospital Course: 54 yo male, history of mood disorder, anxiety, depression, HTN, CKD, Asthma, COPD, HLD, DM presents to ER reporting SI with plan and intent. Pt planning to get hit by a car or drown himself due to increased situational stressors. Pt reports his med regime was effective. On Thursday, he received a visit from the [employer] at the home he and his brother jointly own. They have been making some repairs, however, currently do not have the financial resources to continue. Pt reports the [employer] plans to shut down the home. He reports his brother, who lives across the street, will not allow him to live with him so he will be homeless. This precipitated, bad thougths voices Jeckyl/Rucker moods and plans to end his life. There is no solution. My brother blames me and I will be on the street. Pt currently reports no resources except [employer] and work with Elvira of [facility] [employer]. States he feels more impulsive and precipitous in his ability to self harm due to anger, grief and fear. Plan: Admit, 15 minute checks, CV Collateral Contact Diagnostics as needed. Continue current regime Lamictal 25 mg HS- Target-impulsivity Olanzapine 5 mg bid- Target- perceptual alterations, impulsivity Discharge planning Continue to monitor BP- hypertensive- may need hospitalist consult to add meds vs time for BP to resolve from anxiety from current crisis. overwhelmed and anxious, fearing he will be homeless soon. continue current mgmt. SW to meet with pt thursday. more insouciant today regarding his predicament. feeling better. continue current mgmt. Active on unit. Pt reports feeling okay today; continues to report auditory hallucinations telling him to harm himself. denies SI/HI/VH. Per nursing, slept 6 hours last night. Continue current tx plan. Pt reports feeling better than when he came first to the hospital. Continues to report auditory hallucinations but states they are quieter . denies SI/HI/VH. Plan to discharge on if continues to improve; pt aware. Active on unit. Pt reports feeling good and ready for discharge tomorrow. Continues to report auditory hallucinations; reports they are quieter; pt stated, I wouldn't act on the voices . He reports passive SI that comes and goes but I wouldn't act on it ; pt denies plan or intent. Per nursing, slept 8 hours last night. Pt reports he plans on following up with outpatient providers. Status at Discharge Cognitive/behavioral status at discharge: Patient has insight and demonstrates good judgment in terms of wanting to pursue treatment. Patient has a safety plan that includes presenting to the closest ER or calling 911 if feeling unsafe. Functional status at discharge: independent ambulation Overall status at discharge: patient is back to baseline Time Spent with Patient Time attestation: Total time managing care of this patient today _20___ minutes. Time spent: Less than 30 minutes Discharge Plan Discharge Anticipated Discharge Date/Time: 10/20/24 11:00 Patient Disposition: Home, Self-Care Discharge Diagnosis: MDD, CATIE Referrals: [facility] walk in clinic [Other] - 1 Week (Walk in hours are Thursday- Thursday 10am-12pm) Bon Arvizu MD [Primary Care Provider] - 1 Week (10-20-24 Your Primary Care Provider was notified of your discharge and will be contacting you with the date and time of your follow up appt.) Discharge Medications: New lamotrigine 25 mg Tablet 25 mg PO BEDTIME 14 Days Qty: 14 0RF olanzapine 5 mg Tablet 5 mg PO BID 30 Days Qty: 60 0RF Continued metformin 1,000 mg tablet 1,000 mg PO BID 90 Days Qty: 180 1RF albuterol sulfate [Ventolin HFA] 90 mcg/actuation HFA aerosol inhaler 2 puff inhalation Q4-6H PRN (Reason: for wheezing) Qty: 18 1RF hydroxyzine HCl 25 mg tablet 25 mg PO TID PRN (Reason: anxiety) Qty: 20 0RF escitalopram oxalate 20 mg tablet 20 mg PO QAM Qty: 90 1RF ferrous sulfate 325 mg (65 mg iron) tablet 325 mg PO DAILY omeprazole 40 mg capsule,delayed release(DR/EC) 40 mg PO DAILY tamsulosin [Flomax] 0.4 mg capsule 0.4 mg PO BEDTIME Qty: 7 0RF atorvastatin [Lipitor] 40 mg tablet 40 mg PO DAILY Qty: 7 0RF insulin glargine [Lantus Solostar U-100 Insulin] 100 unit/mL (3 mL) insulin pen 15 unit subcut DAILY betamethasone dipropionate 0.05 % cream 1 appl topical DAILY cholecalciferol (vitamin D3) 50 mcg (2,000 unit) capsule 50 mcg PO DAILY losartan 25 mg tablet 25 mg PO DAILY Discharge Orders: Discharge Order (Routine); Ordered 10/20/24 Ordered By: Vicky Hicks Diet: Regular diet Activity on Discharge: As tolerated Stand Alone Forms: Patient Portal Discharge page, Community Support Print Language: Luxembourgish Care Plan Goals: Maintain mood and safe behaviors Take medications as prescribed Practice coping skills Continue with outpatient providers and reach out to them as needed Health Concerns: Mood stability and behaviors Plan of Treatment: Follow up with your PCP, psychiatric provider and other outpatient providers regarding above concerns Take medications as prescribed Assessment: Patient has insight and demonstrates good judgment in terms of wanting to pursue treatment. Patient has a safety plan that includes presenting to the closest ER or calling 911 if feeling unsafe. Discharge Date/Time: 10/20/24 11:07
== END 2024-10-20 11:07 | disposition home or self-care (01) | DRG 756 ==
LOC: HO.ED 17:46 → HO.PADLT16 10-13 12:46
PROVIDERS: Physician Assistant Medical; Psychiatry & Neurology Psychiatry; Admitting Provider Registered Nurse; Emergency Provider Emergency Medicine Emergency Medical Services; PCP Internal Medicine; Responsible Provider Registered Nurse; Visit Provider Psychiatry & Neurology Psychiatry
DX: F43.0 Acute stress reaction (principal); R45.851 Suicidal ideations; E11.9 Type 2 diabetes mellitus without complications; J44.9 Chronic obstructive pulmonary disease, unspecified; F41.1 Generalized anxiety disorder; Z79.4 Long term (current) use of insulin; Z79.84 Long term (current) use of oral hypoglycemic drugs; Z79.899 Other long term (current) drug therapy
CPT/HCPCS: 36415; 80053; 80061; 80143; 80179; 80307; 81001; 82947; 83036; 83690; 83735; 84443; 85025; 93005; 99285; S9485

== ENCOUNTER → 2024-10-13 08:17 | Outpatient (BNV) | payer OTHER, SELFPAY | PROVIDERS: Admitting Provider Registered Nurse; Emergency Provider Emergency Medicine Emergency Medical Services; PCP Internal Medicine; Visit Provider Internal Medicine | DX: R00.1 Bradycardia, unspecified (principal) | CPT/HCPCS: 93010 ==

== ENCOUNTER → 2024-10-13 11:38 | Outpatient (BNV) | payer OTHER, SELFPAY | PROVIDERS: Admitting Provider Registered Nurse; Emergency Provider Emergency Medicine Emergency Medical Services; PCP Internal Medicine; Visit Provider Clinical Nurse Specialist Psychiatric/Mental Health, Adult | DX: F33.2 Major depressive disorder, recurrent severe without psychotic features (principal); F39 Unspecified mood [affective] disorder; R45.851 Suicidal ideations; F41.1 Generalized anxiety disorder; F43.0 Acute stress reaction | CPT/HCPCS: 90792; 99231; 99232 ==

== ENCOUNTER 2024-11-03 09:41 | Outpatient (REF) | payer OTHER, SELFPAY ==
[2024-11-03 09:59] LABS: MANUAL DIFF FLAG NO
[2024-11-03 10:20] LABS: Basophils Percent Auto 0.6 % (0-2); Eosinophils Absolute Auto 0.2 X10*3/uL (0.0-0.4); Eosinophils Percent Auto 4.9 % (0-4); Hematocrit 37.2 % (42.0-52.0); Hemoglobin 11.6 g/dl (14.0-18.0); Imm Gran Abs Auto 0.01 X10*3/uL (0.00-0.03); Imm Gran Pct Auto 0.2 % (0.0-0.4); Lymphocytes Absolute Auto 1.1 X10*3/uL (1.2-4.9); Lymphocytes Percent Auto 23.9 % (20-40); Mean Corpuscular HGB Conc 31.2 g/dl (31.0-36.0); Mean Corpuscular Hemoglobin 27.2 pg (27.0-33.0); Mean Corpuscular Volume 87.3 fL (80.0-98.0); Mean Platelet Volume 11.2 fL (9.4-12.4); Monocytes Absolute Auto 0.3 X10*3/uL (0.1-1.2); Neutrophils Percent Auto 63.4 % (45-73); Platelet Count 189 X10*3/uL (160-400); Red Blood Count 4.26 X10*6/uL (4.60-5.80); Red Cell Distribution Width 14.6 % (11.0-16.0); White Blood Count 4.7 X10*3/uL (4.8-10.8)
--- OUTSIDE RECORDS SUMMARY | 2024-11-03 10:49 | XMS_ITS | Clinical Summary ---
Author Organization [facility] Address [address] [place] [address] Care Team Providers Care Transport Assistant Name Role Phone Unavailable Primary Care Provider [...]
[2024-11-03 10:54] LABS: Alanine Aminotransferase 43 U/L (0-40); Albumin Level 3.7 g/dL (3.5-5.0); Alkaline Phosphatase 86 U/L (39-117); Anion Gap 10 (12-20); Aspartate Amino Transferase 36 U/L (5-37); Bilirubin Total 0.7 mg/dL (0.0-1.0); Blood Urea Nitrogen 11 mg/dL (9-16); Calcium 8.7 mg/dL (8.4-10.2); Carbon Dioxide 27 mmol/L (22-29); Chloride 107 mmol/L (96-108); Cholesterol 165 mg/dL (<200); Estimated Glomerular Filt Rate 48; Glucose Fasting 106 mg/dL (60-99); HDL Cholesterol 35 mg/dL (>40); Iron 108 mcg/dL (45-160); LDL Cholesterol Calculated 86 mg/dL (<100); Percent Iron Saturation 44 % (15-50); Potassium 4.1 mmol/L (3.3-5.1); Sodium 140 mmol/L (135-145); Total Iron Binding Capacity 244 mcg/dL (228-428); Total Protein 6.2 g/dL (6.5-8.0); Triglycerides 222 mg/dL (<150); Unsaturated Iron Binding 136 ug/dL
[2024-11-03 10:59] LABS: Appearance Urine Clear; Color Urine Yellow; Glucose Urine UA Negative (Negative); Leukocyte Esterase Urine Negative (Negative); Nitrite Urine Negative (Negative); PH 7.5 (5.0-9.0); Urine Blood Negative (Negative); Urine Ketones Negative (Negative); Urine Protein Negative (Neg-Trace)
[2024-11-03 11:11] LABS: TSH reflex Free T4 0.75 uIU/mL (0.32-4.0); Vitamin D 25-OH Total 85.2 ng/mL (>30)
== END 2024-11-03 09:42 | disposition home or self-care (01) ==
LOC: HO.LAB 09:41
PROVIDERS: Absent Provider Internal Medicine; PCP Internal Medicine
DX: R30.0 Dysuria (principal); R42 Dizziness and giddiness; R79.89 Other specified abnormal findings of blood chemistry; F41.9 Anxiety disorder, unspecified; J44.9 Chronic obstructive pulmonary disease, unspecified; C41.9 Malignant neoplasm of bone and articular cartilage, unspecified; E55.9 Vitamin D deficiency, unspecified; N18.31 Chronic kidney disease, stage 3a; K21.9 Gastro-esophageal reflux disease without esophagitis; E66.9 Obesity, unspecified; E11.65 Type 2 diabetes mellitus with hyperglycemia; E78.00 Pure hypercholesterolemia, unspecified; E78.5 Hyperlipidemia, unspecified; J45.909 Unspecified asthma, uncomplicated
CPT/HCPCS: 36415; 80053; 80061; 81003; 82306; 83540; 84443; 84550; 85025

== ENCOUNTER 2024-11-04 13:04 | Outpatient (AMB) | payer OTHER, SELFPAY ==
--- NOTE | 2024-11-04 13:11 | A.OFFPC_ITS ---
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 He was admitted at [facility] on 10/13 - 10/20 for an evaluation of SI with plan and intent due to recent life stresses. Pt has an appointment at [facility] next Thu. Pt is currently Homeless, and in the process of applying for assistance with [facility] [employer] ([facility]DS). Pt asking for medical documentation to support his medical diagnosis for the application process to DDS. [facility] Medical History (Updated 11/04/24 @ 14:07 by Zoey Montero NP) Suicidal ideation Situational crisis Suicidal ideation Psychosis Chest pain Recurrent major depression Allergic rhinitis Insomnia Palpitations Vitamin D deficiency Chronic kidney disease, stage III (moderate) GERD without esophagitis Restrictive lung disease Obesity (BMI 30-39.9) Benign essential hypertension Pure hypercholesterolemia Diabetes mellitus Pulmonary emboli Chondrosarcoma Hyperlipidemia Chronic restrictive lung disease COPD (chronic obstructive pulmonary disease) Asthma Surgical History History of esophagogastroduodenoscopy (EGD) H/O colonoscopy History of inguinal hernia repair Hx of exploratory thoracotomy H/O tooth extraction Family History Father Hypertension Kidney failure, acute Mother Lung cancer Family/Other Diabetes Social History Household Members: None Housing: House Do you presently have visiting nurse or other home services: No Alcohol intake: never Patient Tobacco Use Status: Never used Tobacco e-Cigarette/Vaping Use: Never Used Second Hand Smoke Exposure: Yes service: No Current occupational status: unemployed Sexual orientation: Straight/Heterosexual Cognitive needs: No Hearing needs: No Vision needs: Yes (Glasses) Questionnaire Thrive Questionnaire Date Thrive assessed: 09/13/24 I am a: Patient What is your living situation today?: I have a steady place to live Within the past 12 months, did the food you bought not last and you didn't have the money to get more?: I choose not to answer this question Within the past 12 months, did you worry whether your food would run out before you got money to buy more?: I choose not to answer this question Do you have trouble paying for medicines?: I choose not to answer this question Do you have trouble getting transportation to medical appointments?: I choose not to answer this question Do you have trouble paying your heating and electricity bill?: I choose not to answer this question Do you have trouble taking care of your child, family member or friend?: I choose not to answer this question Do you have trouble with day-to-day activities such as bathing, preparing meals, shopping, managing finances, etc.?: I choose not to answer this question Are you currently unemployed and looking for a job?: Yes Are you interested in more education?: No Please select the resources that you would like help with: None Currently or been in a relationship where the following occur: I choose not to answer THRIVE Score: 0 CATIE-7 AMB Questionnaire CATIE-7 Date CATIE - 7 assessed: 09/13/24 Source: Developed by Drs. Tashi Michael, Laura Archer, Ambrosio Xie and colleagues, with an educational maría elena from [employer]. Review of Systems Const All systems reviewed & are unremarkable except as noted in HPI and below Physical exam (Primary Care) Vital Signs: Last Vital Signs Temp 97.3 F 11/04/24 13:15 Pulse 65 11/04/24 13:15 BP 132/72 11/04/24 13:15 Pulse Ox 95 11/04/24 13:15 Oxygen Delivery Method Room Air 11/04/24 13:15 BMI result Body Mass Index 35.7 Tobacco/Smoking Status: Tobacco use Status Tobacco use date assessed 09/27/24 11/04/24 13:20 Patient Tobacco Use Status Never used Tobacco 11/04/24 13:20 e-Cigarette/Vaping Use Never Used 11/04/24 13:20 Thrive Assessment: Date of Thrive Assessment Date Thrive assessed 09/13/24 11/04/24 13:20 Currently or been in a relationship where the following occur: I choose not to answer Const General: cooperative, no acute distress and poor hygiene Nutritional Appearance: overweight Orientation/consciousness: patient oriented x3 Neuro General: patient oriented x3, gait normal and moves all extremities Psych Speech and movement: Normal speech and movement present Affect: normal affect Thought content: suicidality, no homicidality, no delusions and no hallucinations Coding Level of Care Code Est Pt Level 4 (37188) Diagnoses Suicidal ideation R45.851 Mood disorder F39 Time Spent (min) 20 Assessment & Plan Assessment & Plan (1) Suicidal ideation: Code(s): R45.851 - Suicidal ideations Category: Medical Plan: Stable, Denies SA or SI Has an appointment with Psych next week Continue on current regiment. (2) Mood disorder: Code(s): F39 - Unspecified mood [affective] disorder Category: Medical Plan: Stable, Denies SA or SI Has an appointment with Psych next week Continue on current regiment. Provided Patient with Problem List to bring to DDS. Advised Pt to reach out to us if more information is needed and to have DDS make a formal request for the records.
[2024-11-04 13:15] VITALS: BP 132/72; PULSE 65; TEMP 36.3; O2SAT 95; BMI 35.7
--- OUTSIDE RECORDS SUMMARY | 2024-11-04 13:38 | XMS_ITS | Clinical Summary ---
Author Organization [facility] Address [address] [place] [address] Care Team Providers Care Internet Sales Associate Name Role Phone Unavailable Primary Care Provider [...]
== END 2024-11-04 14:18 | disposition home or self-care (01) ==
LOC: HO.HMCH 13:05
PROVIDERS: PCP Internal Medicine; Visit Provider Nurse Practitioner Family
DX: R45.851 Suicidal ideations (principal); F39 Unspecified mood [affective] disorder

== ENCOUNTER → 2024-11-04 13:04 | Outpatient (BNVA) | payer OTHER, SELFPAY | PROVIDERS: PCP Internal Medicine; Visit Provider Nurse Practitioner Family | DX: R45.851 Suicidal ideations (principal) | CPT/HCPCS: 99212 ==

== ENCOUNTER 2024-11-12 16:02 | Emergency (ER) | payer OTHER, SELFPAY ==
--- NOTE | ~2024-11-12 | XR_ITS ---
CLINICAL HISTORY: chest pain 2 view chest x-ray Comparison: CR - XR CHEST 2V - 09/30/24 17:35 EDT Findings: Left lower lobe airspace opacities are present. There is elevation of the left hemidiaphragm. Heart size is normal. Thoracic levoscoliosis is again noted. There has been prior left 4th rib osteotomy. IMPRESSION: Left lower lobe airspace opacities, which may represent atelectasis or pneumonia. This document has been electronically signed by: Steffanie Leung on 11/12/2024 17:42:57
--- NOTE | 2024-11-12 16:03 | ECG_ITS ---
Test Reason : CP Blood Pressure : */* mmHG Vent. Rate : 79 BPM Atrial Rate : 79 BPM P-R Int : 128 ms QRS Dur : 96 ms QT Int : 384 ms P-R-T Axes : 18 -4 23 degrees QTcB Int : 440 ms Normal sinus rhythm Minimal voltage criteria for LVH, may be normal variant ( R in aVL ) Borderline ECG When compared with ECG of 13-Oct-2024 08:17, No significant change was found Referred By: Generic ED Physician Electronically Signed By: HILTON DONATO MD
[2024-11-12 16:14] VITALS: BP 137/63; PULSE 80; RESP 18; TEMP 36.9; O2SAT 98; BMI 36.2
--- NOTE | 2024-11-12 16:14 | ED_ITS ---
HPI - General Adult General Chief complaint: Arrhythmia/Palpitations Stated complaint: chest pain,heart racing Time Seen by Provider: 11/12/24 18:09 Source: patient Limitations: no limitations History of Present Illness ED Provider: Sherin Bennett PA-C HPI narrative: 54 y/o M with hx of depression, prior psychosis, suicidal ideation, anxiety, asthma, COPD, hyperlipidemia, diabetes, hypertension, obesity, chronic kidney disease, who is well known to our emergency department given he is a high utilizer of resources, who presents with palpitations. Patient states he developed palpitations earlier this afternoon with the associated chest pressure. Denies recent cough or cold symptoms, wheezing, shortness of breath, fever, diaphoresis, nausea, vomiting. Patient is currently symptom free. Related Data Home Medications ?Medication ?Instructions ?Recorded ?Confirmed omeprazole 40 mg capsule,delayed 40 mg PO DAILY 10/12/24 release losartan 25 mg tablet 25 mg PO DAILY 09/13/2409/02 betamethasone dipropionate 0.05 % 1 appl topical DAILY wound 10/12/24 10/12/24 topical cream cholecalciferol (vitamin D3) 50 50 mcg PO DAILY 10/12/24 mcg (2,000 unit) capsule Previous Rx's ?Medication ?Instructions ?Recorded atorvastatin 40 mg tablet (Lipitor) 40 mg PO DAILY #7 tabs 06/28/24 tamsulosin 0.4 mg capsule (Flomax) 0.4 mg PO BEDTIME # 7 caps 06/28/24 metformin 1,000 mg tablet 1,000 mg PO BID 90 days #180 tabs 08/29/24 escitalopram oxalate 20 mg tablet 20 mg PO QAM #90 tab s 10/06/24 lamotrigine 25 mg tablet 25 mg PO BEDTIME 14 days #14 tabs 10/19/24 olanzapine 5 mg tablet 5 mg PO BID 30 days #60 tabs 10/19/24 ferrous sulfate 325 mg (65 mg 325 mg PO DAILY #90 tabs 10/27/24 iron) tablet insulin glargine 100 unit/mL (3 15 unit (0.15 mL) subc ut DAILY #15 10/27/24 mL) subcutaneous pen (Lantus mL Solostar U-100 Insulin) albuterol sulfate 90 mcg/actuation 2 puff inhalation Q 4-6H PRN for 10/31/24 aerosol inhaler (Ventolin HFA) wheezing #18 ea hydroxyzine HCl 25 mg tablet 25 mg PO TID PRN anxiety #20 tabs 11/01/24 Allergies Allergy/AdvReac Type Severity Reaction Status Date / Time pollen extracts (POLLEN) Allergy Mild RUNNY NOSE Verified 11/12/24 16:16 cat dander (CATS) Allergy Unknown UNKNOWN Verified 11/12/24 16:16 dog dander (DOGS) Allergy Unknown UNKNOWN Verified 11/12/24 16:16 mold (MOLD) Allergy Unknown UNKNOWN Verified 11/12/24 16:16 Review of Systems 2 Review of Systems: Yes all other systems are reviewed and are negative Constitutional: Constitutional: Denies fatigue and Denies fever(s) Cardiovascular: Cardiovascular: Reports chest pain and Reports palpitations Respiratory: Respiratory: Denies cough and Denies wheezing Gastrointestinal: Gastrointestinal: Denies abdominal pain, Denies nausea and Denies vomiting Endocrine: Endocrine: Denies fatigue and Reports palpitations Allergic/Immunologic: Allergic/Immunologic: Denies wheezing PMFSH Past Medical History Attestation statement: The following information was validated with the patient. Medical History (Updated 11/12/24 @ 20:44 by MAGO Viveros) Suicidal ideation Situational crisis Suicidal ideation Psychosis Chest pain Recurrent major depression Allergic rhinitis Insomnia Palpitations Vitamin D deficiency Chronic kidney disease, stage III (moderate) GERD without esophagitis Restrictive lung disease Obesity (BMI 30-39.9) Benign essential hypertension Pure hypercholesterolemia Diabetes mellitus Pulmonary emboli Chondrosarcoma Hyperlipidemia Chronic restrictive lung disease COPD (chronic obstructive pulmonary disease) Asthma Surgical History History of esophagogastroduodenoscopy (EGD) H/O colonoscopy History of inguinal hernia repair Hx of exploratory thoracotomy H/O tooth extraction Family History Family History Father Hypertension Kidney failure, acute Mother Lung cancer Family/Other Diabetes Social History Social History Household Members: None Housing: House Do you presently have visiting nurse or other home services: No Alcohol intake: never Patient Tobacco Use Status: Never used Tobacco e-Cigarette/Vaping Use: Never Used Second Hand Smoke Exposure: Yes Advance Directives: No Advance Directives Information Provided: Yes service: No Current occupational status: unemployed Sexual orientation: Straight/Heterosexual Cognitive needs: No Hearing needs: No Vision needs: Yes (Glasses) Physical Exam ED Vital Signs: Vital Signs - 24 hr 11/12/24 16:14 11/12/24 18:11 11/12/24 20:29 Temperature 98.4 F 98.2 F Pulse Rate 80 66 60 Respiratory Rate 18 14 20 Blood Pressure 137/63 123/63 138/68 Pulse Oximetry 98 97 97 Oxygen Delivery Method Room Air Room Air Room Air BMI result Body Mass Index 36.2 Const Other: Alert Orientation/consciousness: patient oriented x3 Resp Other: Lungs clear to auscultation, no wheezing Cardio Other: Normal peripheral perfusion Skin Other: Warm dry no rash Neuro General: patient oriented x3, gait normal, no focal motor deficits and CN's II- XI intact bilaterally Psych Other: Cooperative Course Course Course Narrative: RME performed by Zenaida June PA-C. Patient is a 54 year old assigned male at presenting to the emergency department with chest pain. Patient states that he was watching his nephew work on a car when he began to have chest pain. Patient states that he took his anti-anxiety medication earlier today and didn't want to take it again so he came here. Detailed physical exam and review of systems are deferred to the emergency department clinician. EKG, labs, imaging, and swabs ordered. Patient placed back in the waiting room pending room availability and results. Medical Decision Making Medical Decision Making MDM Narrative: 54 y/o M with hx of depression, prior psychosis, suicidal ideation, anxiety, asthma, COPD, hyperlipidemia, diabetes, hypertension, obesity, chronic kidney disease, who is well known to our emergency department given he is a high utilizer of resources, who presents with palpitations. Patient states he developed palpitations earlier this afternoon with the associated chest pressure. Denies recent cough or cold symptoms, wheezing, shortness of breath, fever, diaphoresis, nausea, vomiting. Patient is currently symptom free. Problem: Psychiatric illness, COPD, hypertension, hyperlipidemia, diabetes History: Per patient I have considered the following differential diagnoses: ACS, new arrhythmia, dehydration, anemia, electrolyte abnormality Plan: ACS was considered, the patient has numerous risk factors for coronary artery disease, screening labs including cardiac enzymes EKG and chest x-ray were obtained. Obtaining a delta trop. On chest x-ray, there was concern for potential opacity versus atelectasis. The patient does not have a leukocytosis, his lungs are clear there was no wheezing, clinically he does not have a pneumonia or bronchitis. In regard to the palpitations, we are not appreciating this at this time, he also has no underlying organic cause for his palpitations; anemia, dehydration, electrolyte abnormality I have independently reviewed the following tests: Labs: No leukocytosis, not anemic, no electrolyte abnormality, troponin x 2 flat EKG: Normal sinus rhythm, rate of 79, no ischemic changes no ectopy QTC 440 Chest x-ray:2 view chest x-ray Comparison: CR - XR CHEST 2V - 09/30/24 17:35 EDT Findings: Left lower lobe airspace opacities are present. There is elevation of the left hemidiaphragm. Heart size is normal. Thoracic levoscoliosis is again noted. There has been prior left 4th rib osteotomy. IMPRESSION: Left lower lobe airspace opacities, which may represent atelectasis or pneumonia. Lab Data 11/12/24 16:27 11/12/24 16:27 Labs: Lab Results 11/12/24 11/12/24 11/12/24 Range/Units 16:26 16:27 19:45 WBC 6.2 (4.8-10.8) X10*3/uL RBC 4.40 L (4.60-5.80) X10*6/uL Hgb 12.3 L (14.0-18.0) g/dl Hct 37.1 L (42.0-52.0) % MCV 84.3 (80.0-98.0) fL MCH 28.0 (27.0-33.0) pg MCHC 33.2 (31.0-36.0) g/dl RDW 15.5 (11.0-16.0) % Plt Count 217 (160-400) X10*3/uL MPV 10.6 (9.4-12.4) fL Immature Gran % (Auto) 0.2 (0.0-0.4) % Neut % (Auto) 61.5 (45-73) % Lymph % (Auto) 25.2 (20-40) % Curry % (Auto) 7.4 (2-11) % Eos % (Auto) 5.1 H (0-4) % Baso % (Auto) 0.6 (0-2) % Lymph # (Auto) 1.6 (1.2-4.9) X10*3/uL Curry # (Auto) 0.5 (0.1-1.2) X10*3/uL Eos # (Auto) 0.3 (0.0-0.4) X10*3/uL Baso # (Auto) 0.0 (0.0-0.2) X10*3/uL Abs Immat Gran (auto) 0.01 (0.00-0.03) X10*3/uL Absolute Neuts (auto) 3.8 (2.0-8.3) x10*3/uL Absolute Nucleated RBC 0.000 (0.0-0.012) X10*3/uL Nucleated RBC % (auto) 0.0 (0.0-0.2) /100WBC PT 10.9 (10.9-12.4) SEC INR 1.0 (0.9-1.1) Sodium 143 (135-145) mmol/L Potassium 4.4 (3.3-5.1) mmol/L Chloride 111 H (96-108) mmol/L Carbon Dioxide 22 (22-29) mmol/L Anion Gap 14 (12-20) BUN 7 L (9-16) mg/dL Creatinine 1.48 H (0.5-1.4) mg/dL Estim Creat Clear Calc 67.9 Estimated GFR 50 Random Glucose 110 (60-115) mg/dL Calcium 9.2 (8.4-10.2) mg/dL Magnesium 1.6 (1.6-2.6) mg/dL Total Bilirubin 0.3 (0.0-1.0) mg/dL AST 25 (5-37) U/L ALT 20 (0-40) U/L Alkaline Phosphatase 98 (39-117) U/L Troponin I High Sens 6.7 7.0 (<3.5-35.0) ng/L Total Protein 6.7 (6.5-8.0) g/dL Albumin 3.9 (3.5-5.0) g/dL Influenza Type A (PCR) NEGATIVE (Negative) Influenza Type B (PCR) NEGATIVE (Negative) RSV RNA Qual (PCR) NEGATIVE (Negative) SARS-CoV-2 RNA (RT-PCR) NEGATIVE (Negative) Discharge Plan Discharge Clinical Impression: Palpitations Chest pain Qualifiers: Chest pain type: unspecified Qualified Code(s): R07.9 - Chest pain, unspecified Patient Disposition: Home, Self-Care Instructions: Heart Palpitations (ED), Noncardiac Chest Pain (ED) Additional Instructions: All of your screening labs including 2 cardiac enzymes were normal. There were no concerning changes on your EKG in the chest x-ray is at your baseline. Continue to follow up with your primary care provider, you may require a Holter monitor trial for your palpitations. Call to make an appointment to discuss the next steps. Prescriptions: No Action metformin 1,000 mg tablet 1,000 mg PO BID 90 Days Qty: 180 1RF escitalopram oxalate 20 mg tablet 20 mg PO QAM Qty: 90 1RF insulin glargine [Lantus Solostar U-100 Insulin] 100 unit/mL (3 mL) insulin pen 15 unit subcut DAILY Qty: 15 0RF ferrous sulfate 325 mg (65 mg iron) tablet 325 mg PO DAILY Qty: 90 0RF albuterol sulfate [Ventolin HFA] 90 mcg/actuation HFA aerosol inhaler 2 puff inhalation Q4-6H PRN (Reason: for wheezing) Qty: 18 1RF hydroxyzine HCl 25 mg tablet 25 mg PO TID PRN (Reason: anxiety) Qty: 20 0RF omeprazole 40 mg capsule,delayed release(DR/EC) 40 mg PO DAILY tamsulosin [Flomax] 0.4 mg capsule 0.4 mg PO BEDTIME Qty: 7 0RF atorvastatin [Lipitor] 40 mg tablet 40 mg PO DAILY Qty: 7 0RF betamethasone dipropionate 0.05 % cream 1 appl topical DAILY cholecalciferol (vitamin D3) 50 mcg (2,000 unit) capsule 50 mcg PO DAILY lamotrigine 25 mg Tablet 25 mg PO BEDTIME 14 Days Qty: 14 0RF olanzapine 5 mg Tablet 5 mg PO BID 30 Days Qty: 60 0RF losartan 25 mg tablet 25 mg PO DAILY Print Language: Arabic
[2024-11-12 16:32] LABS: MANUAL DIFF FLAG NO
[2024-11-12 16:33] LABS: Hematocrit 37.1 % (42.0-52.0); Hemoglobin 12.3 g/dl (14.0-18.0); Imm Gran Abs Auto 0.01 X10*3/uL (0.00-0.03); Imm Gran Pct Auto 0.2 % (0.0-0.4); Lymphocytes Absolute Auto 1.6 X10*3/uL (1.2-4.9); Mean Corpuscular HGB Conc 33.2 g/dl (31.0-36.0); Mean Corpuscular Hemoglobin 28.0 pg (27.0-33.0); Mean Corpuscular Volume 84.3 fL (80.0-98.0); NRBC Abs Auto 0.000 X10*3/uL (0.0-0.012); NRBC Pct Auto 0.0 /100WBC (0.0-0.2); Platelet Count 217 X10*3/uL (160-400); Red Blood Count 4.40 X10*6/uL (4.60-5.80); White Blood Count 6.2 X10*3/uL (4.8-10.8)
[2024-11-12 16:40] LABS: INTERNATIONAL NORM RATIO 1.0 (0.9-1.1); Prothrombin Time 10.9 SEC (10.9-12.4)
[2024-11-12 16:50] LABS: Alanine Aminotransferase 20 U/L (0-40); Albumin Level 3.9 g/dL (3.5-5.0); Alkaline Phosphatase 98 U/L (39-117); Anion Gap 14 (12-20); Aspartate Amino Transferase 25 U/L (5-37); Blood Urea Nitrogen 7 mg/dL (9-16); Calcium 9.2 mg/dL (8.4-10.2); Carbon Dioxide 22 mmol/L (22-29); Chloride 111 mmol/L (96-108); Creatinine Clr Calc Pharmacy 67.9; Estimated Glomerular Filt Rate 50; Magnesium 1.6 mg/dL (1.6-2.6); Potassium 4.4 mmol/L (3.3-5.1); Sodium 143 mmol/L (135-145); Total Protein 6.7 g/dL (6.5-8.0)
[2024-11-12 16:57] LABS: Troponin-I High Sensitivity 6.7 ng/L (<3.5-35.0)
[2024-11-12 17:14] LABS: Resp Syncy Virus RNA Qual PCR NEGATIVE (Negative); SARS COV2 PCR INHOUSE NEGATIVE (Negative)
--- OUTSIDE RECORDS SUMMARY | 2024-11-12 17:46 | XMS_ITS | Patient Health Record ---
Author Organization [facility] Address [address] [place] [address] Care Team Providers Care Bullet Lubricant Mixer Name Role Phone Fox Ku MD Primary Care Provider Briana Tashi Erwin Unavailable [phone] Alisha Moore Unavailable Unavailable Allergies No Known [...] Problem Status W/U Status Risk Notes Problem 251069706 Colon cancer screening (Z12.11) Active confirmed Problem 208257218 History of adenomatous polyp of colon (Z86.010) Active confirmed Problem Diverticulosis o f large intestine without perforation or abscess without bleeding (K57.30) Active confirmed Problem 357558590 Gastroesophageal reflux disease without esophagitis (K21.9) Active confirmed Problem 923979393356069 Preprocedural examination (Z01.818) Active confirmed Problem 57537127 Iron deficiency anemia, unspecified iron deficiency anemia [...] End Date [facility] [address] [address] [place], [place] [id number] KIAN MAHMOOD Self - patient is the insured MEDICAID OF [facility] [address] [place] [address] [id number] KIAN MAHMOOD Self - patient is the insured Medical (General) History Medical History History ICD Code IDDM Hypertension Heart murmur-Dr. Collins Asthma/COPD- Dr. Correa Pulmonary embolus in 2016--on Coumadin-- sees Dr. Dulala Lung mass--surgery in 2008 a s below, with XRT; biopsied in approx 2015 and benign--followed by Dr. Tino Cristobalies [place],CVA,renal disease GERD--upper endoscopy August of 2017 with a small hiatal hernia, but no evidence of any esophagitis or Caledrón's esophagus; duodenal biopsies were negative for celiac disease. Hard of hearing Colonoscopy in August 2017 re vealed 2 cecal tubular adenomas that were removed; a second colonoscopy later that year with a better prep did not reveal any other polyps; Surgical History Surgery Date(Month/Year) Mass removed--Dr. Fields at [facility]-- Be nign , but had XRT 2008 Right inguinal hernia 1990 Ear tubes/Adenoids
--- OUTSIDE RECORDS SUMMARY | 2024-11-12 17:46 | XMS_ITS | Clinical Summary ---
Author Organization [employer] Address [address] [place] [address] Care Team Providers Care Professor Of Sociology Name Role Phone Unavailable Primary Care Provider Unavailabl e Allergies No known active allergies Medications acetaminophen (Tylenol 8 Hour) 650 MG ER tablet Take 1 tablet (650 mg) by mouth every 8 (eight) hours if needed for mild pain. Do not crush, chew, or split. 20 tablet 5 Active ibuprofen 400 MG tablet Take 1 tablet (400 mg) by mouth every 6 (six) hours if needed for moderate pain. 20 tablet 5 Active amoxicillin (Amoxil) 500 MG capsule Take 1 capsule (500 mg) by mouth every 8 (eight) hours for 7 days. 21 capsule 5 11/01/19 25 Active Problems Problem Noted Date Diagnosed Date Dental abscess 10/24/2024 Pain, dental 10/24/2024 Encounters Date Type Department Care Team Description 10/24/2024 10:00 AM EDT Office Visit [facility] [address] [place] [address] Perez Romero DDS Dental abscess (Primary Dx); Pain, dental from Last 3 Months Social History Tobacco Use Types Packs/Day Years Used Date Smoking Tobacco: Never Passive Smoke Exposure: Never Smokeless Tobacco: Never Tobacco Cessation:Counseling Given: No Alcohol Use Standard Drinks/Week Comments Never 0 (1 standard drink = 0.6 oz pur e alcohol) Sex and Gender Information Value Date Recorded Sex Assigned at Male 03/10/2022 10:33 AM EDT Legal Sex Male 10:33 AM EDT Gender Identity Male 09/20/2024 9:45 AM EDT Sexual Orientation Straight 09/20/2024 9: 45 AM EDT Last Filed Vital Signs Vital Sign Reading Time Taken Comments Blood Pressure 132/74 10/24/2024 9:54 AM EDT Pulse 66 10/24/2024 9:54 AM EDT Temperature - - Respiratory Rate - - Oxygen Saturation - - Inhaled Oxygen Concentration - - Weight - - Height - - Body Mass Index - - Plan of Treatment Upcoming Encounters Date Type Department Care Team (Late st Contact Info) Description 11/29/2024 10:00 AM EDT Office Visit [facility] [address] [place], [place] [phone] Perez Romero, JOE [address] [place], [place] [phone] Health Maintenance Due Date Last Done Comments CT Colonography 1970 Colonoscopy 1970 Colorectal Cancer Screening 1970 Dental Prophylaxis 1970 Dental X-Ray: Bitewings 1970 Depression Screening 1970 FIT DNA/Cologuard 1970 FIT 1970 FOBT 1970 HIV Screening 1970 Lipid Panel 1970 SDOH Screening 1970 Sigmoidoscopy 1970 Disability Screening 1970 Alcohol/Substance Use Screening 1982 Hepatitis C Screening 1988 Dental Oral Exam 09/14/2019 03/15/2019, 06/04/2018 Pneumococcal Vaccine: 50+ Years (2 of 2 - PCV) 2020 10/04/2015 Zoster Vaccines (1 of 2) 2020 Hepatitis B Vaccines (2 of 2 - CpG 2-dose series) 09/01/2024 08/04/2024 Influenza Vaccine (#1) 2025 , 03/27/2023, 02/22/2021, Additional history exists Tobacco Screening 10/24/2025 10/24/2024 Dental X-Ray: Full Mouth 10/26/2027 10/24/2024, 05/13 DTaP/Tdap/Td Vaccines (3 - Td or Tdap) 09/27/2034 09/27/2024, 04/09/2016 RSV Patients and Patients Aged 60 years or older (1 - 1-dose 75+ series) 2045 COVID-19 Vaccine Completed 03/21/2024, , 06/05/2020 HIB Vaccines Aged Out No longer eligi [...] on patient's age to complete this topic Procedures Procedure Name Priority Date/Time Associated Diagnosis Comments LIMITED ORAL EVALUATION - PROBLEM FOCUSED Routine 10/24/2024 10:00 AM EDT CASE PRESENTATION, DETAILED AND EXTENSIVE TREATMENT PLANNING Routine 10/24/2024 10:00 AM EDT PANORAMIC RADIOGRAPHIC IMAGE Routine 10/24/2024 10:00 AM EDT PERIODIC ORAL EVALUATION - ESTABLISHED PATIENT Routine 03/15/2019 12:00 AM EST from Last 3 Months or Most Recently Relevant to Health Maintenance Insurance [facility] MEDICAID STAND ADULT
--- OUTSIDE RECORDS SUMMARY | 2024-11-12 17:46 | XMS_ITS | Clinical Summary ---
Author Organization [facility] Address [address] [place] [address] Care Team Providers Care Cargo And Container Inspector Name Role Phone Bon Arvizu MD Primary Care Provider [phone] Allergies No known active allergies Medications Ventolin [...] (one) time each day 90 tablet 3 026 Active Active Problems No known active [...] Visit [facility] [address] [place] [address] Tashi Bonner MD [address] [facility] [address] [place] [id number] Health Maintenance Due Date Last Done Comments [...] 09/25/2022 Influenza Vaccine (Season Ended) [address] [place] [address] [place] [address] Care Teams Cargo And Container Inspector Relationship Specialty Start Date End Date Bon Arvizu MD [address] [place] [address] PCP - General Internal Medicine 06/04/22
[2024-11-12 18:11] VITALS: BP 123/63; PULSE 66; RESP 14; O2SAT 97
[2024-11-12 20:15] LABS: Troponin-I High Sensitivity 7.0 ng/L (<3.5-35.0)
[2024-11-12 20:29] VITALS: BP 138/68; PULSE 60; RESP 20; TEMP 36.8; O2SAT 97
[2024-11-12 20:51] VITALS: BP 133/86; PULSE 66; RESP 19; TEMP 36.8; O2SAT 97
== END 2024-11-12 20:51 | disposition home or self-care (01) ==
PROVIDERS: Physician Assistant Medical; Emergency Provider Internal Medicine; PCP Internal Medicine
DX: R07.9 Chest pain, unspecified (principal); J45.909 Unspecified asthma, uncomplicated; J44.9 Chronic obstructive pulmonary disease, unspecified; E78.5 Hyperlipidemia, unspecified; E11.22 Type 2 diabetes mellitus with diabetic chronic kidney disease; I12.9 Hypertensive chronic kidney disease with stage 1 through stage 4 chronic kidney disease, or unspecified chronic kidney disease; N18.9 Chronic kidney disease, unspecified
CPT/HCPCS: 36415; 71046; 80053; 83735; 84484; 85025; 85610; 87637; 93005; 99283; 99285

== ENCOUNTER → 2024-11-12 16:03 | Outpatient (BNV) | payer OTHER, SELFPAY | PROVIDERS: Emergency Provider Internal Medicine; PCP Internal Medicine; Visit Provider Internal Medicine Cardiovascular Disease | DX: R07.9 Chest pain, unspecified (principal) | CPT/HCPCS: 93010 ==

== ENCOUNTER → 2024-11-12 16:16 | Outpatient (BNV) | payer OTHER, SELFPAY | PROVIDERS: PCP Internal Medicine; Visit Provider Radiology Vascular & Interventional Radiology | DX: R07.9 Chest pain, unspecified (principal) | CPT/HCPCS: 71046 ==

== ENCOUNTER 2024-11-14 12:50 | Emergency (ER) | payer OTHER, SELFPAY ==
[2024-11-14 12:55] VITALS: BP 142/82; PULSE 105; RESP 16; TEMP 36.9; O2SAT 97; BMI 36.2
--- NOTE | 2024-11-14 12:56 | ED_ITS ---
HPI - Psych General Chief Complaint: Psychiatric Symptoms Stated Complaint: want to hurt himself Time Seen by Provider: 11/14/24 13:44 Source: patient, RN notes reviewed and old records reviewed Mode of arrival: ambulatory Limitations: no limitations History of Present Illness ED Provider: Alma Rosa Horton PA-C HPI Narrative: 54 yo male with history of depression, anxiety, mood disorder, vertigo, insomnia, COPD, HTN, CKD III, DM, who presents to the ER for new visual hallucinations that started yesterday. He states starting yesterday he has been seeing faces and ?imaginary people? that are associated with his auditory hallucinations. He states he has never seen people or things that were not there and he has ?freaking out. He states the people are telling him to jump off a bridge to kill himself. He has been compliant with his medications. He denies any illicit drugs or alcohol use. He was recently admitted here on M5 in October which he states helped him. MD complaint: suicidal ideation and hallucinations Onset (ago): day(s) (1) Duration: constant History of same: No Relieving factors: none Exacerbating factors: none Associated psychiatric symptoms: suicidal ideation, auditory hallucinations and visual hallucinations Associated symptoms: denies other symptoms Treatments prior to arrival: none If self harm: admits thoughts of self harm and has plan Details of plan: jump off of a bridge Related Data Home Medications ?Medication ?Instructions ?Recorded ?Confirmed omeprazole 40 mg capsule,delayed 40 mg PO DAILY 11/14/24 release losartan 25 mg tablet 25 mg PO DAILY 09/13/2412/02 betamethasone dipropionate 0.05 % 1 appl topical DAILY wound 10/12/24 11/14/24 topical cream cholecalciferol (vitamin D3) 50 50 mcg PO DAILY 11/14/24 mcg (2,000 unit) capsule thiamine HCl (vitamin B1) 100 mg 100 mg PO BID 11/14/24 tablet Previous Rx's ?Medication ?Instructions ?Recorded atorvastatin 40 mg tablet (Lipitor) 40 mg PO DAILY #7 tabs 06/28/24 tamsulosin 0.4 mg capsule (Flomax) 0.4 mg PO BEDTIME # 7 caps 06/28/24 metformin 1,000 mg tablet 1,000 mg PO BID 90 days #180 tabs 08/29/24 escitalopram oxalate 20 mg tablet 20 mg PO QAM #90 tab s 10/06/24 olanzapine 5 mg tablet 5 mg PO BID 30 days #60 tabs 10/19/24 ferrous sulfate 325 mg (65 mg 325 mg PO DAILY #90 tabs 10/27/24 iron) tablet insulin glargine 100 unit/mL (3 15 unit (0.15 mL) subc ut DAILY #15 10/27/24 mL) subcutaneous pen (Lantus mL Solostar U-100 Insulin) albuterol sulfate 90 mcg/actuation 2 puff inhalation Q 4-6H PRN for 10/31/24 aerosol inhaler (Ventolin HFA) wheezing #18 ea Allergies Allergy/AdvReac Type Severity Reaction Status Date / Time pollen extracts (POLLEN) Allergy Mild RUNNY NOSE Verified 11/14/24 12:57 cat dander (CATS) Allergy Unknown UNKNOWN Verified 11/14/24 12:57 dog dander (DOGS) Allergy Unknown UNKNOWN Verified 11/14/24 12:57 mold (MOLD) Allergy Unknown UNKNOWN Verified 11/14/24 12:57 Review of Systems 2 Review of Systems: Yes all other systems are reviewed and are negative [facility] Past Medical History Medical History (Updated 11/14/24 @ 14:10 by MAGO Stephenson) Suicidal ideation Situational crisis Suicidal ideation Psychosis Chest pain Recurrent major depression Allergic rhinitis Insomnia Palpitations Vitamin D deficiency Chronic kidney disease, stage III (moderate) GERD without esophagitis Restrictive lung disease Obesity (BMI 30-39.9) Benign essential hypertension Pure hypercholesterolemia Diabetes mellitus Pulmonary emboli Chondrosarcoma Hyperlipidemia Chronic restrictive lung disease COPD (chronic obstructive pulmonary disease) Asthma Surgical History History of esophagogastroduodenoscopy (EGD) H/O colonoscopy History of inguinal hernia repair Hx of exploratory thoracotomy H/O tooth extraction Family History Family History Father Hypertension Kidney failure, acute Mother Lung cancer Family/Other Diabetes Social History Social History Household Members: None Housing: House Do you presently have visiting nurse or other home services: No Alcohol intake: former Patient Tobacco Use Status: Never used Tobacco Smoked in Last 30 Days: No e-Cigarette/Vaping Use: Never Used Second Hand Smoke Exposure: Yes Use of substances other than those prescribed or required for medical reasons: No Advance Directives: No Advance Directives Information Provided: Yes Do you have a plan to hurt others: No Plan service: No Current occupational status: unemployed Sexual orientation: Straight/Heterosexual Cognitive needs: No Hearing needs: No Vision needs: Yes (Glasses) Physical Exam 2 Vital Signs: Vital Signs: Last Vital Signs Temp 98.6 F 11/15/24 02:35 Pulse 63 11/15/24 02:35 Resp 17 11/15/24 02:35 BP 166/73 H 11/15/24 02:35 Pulse Ox 95 11/15/24 02:35 O2 Del Method Room Air 11/15/24 02:35 BMI result Body Mass Index 36.2 Appearance: Alert. Oriented X3. No acute distress. Head: normocephalic, atraumatic. Eyes: Pupils equal, round and reactive to light. ENT: Pharynx normal. No tonsillar swelling or exudate. poor dentition Neck: Normal inspection. Neck supple. CVS: Normal heart rate and rhythm. Pulses normal. Respiratory: No respiratory distress. Breath sounds normal. Abdomen: Obese, Soft and nontender. +BS x4 Skin: Skin warm and dry. Normal skin color. Normal skin turgor. No rashes. Extremities: No lower extremity edema. No joint swelling. Neuro/psych: Oriented X 3. No motor deficit. No sensory deficit. CN II-XII intact. Normal speech responding to internal stimuli. anxious. mood is not good. Course Course Course Narrative: This is an RME performed by Rashaun Buck CNP: Additional HPI, ROS, PE not included below will be deferred to primary provider. Patient is a 54 year old male who presents emergency department for evaluation endorses SI with a plan to jump off the bridge, admits to chronic auditory hallucinations but states since yesterday he has been having visual hallucinations telling him to kill himself. Plan: Serum labs, care team evaluation Reevaluation(s) Reevaluation #1: Physician observation started at 1435. Patient placed in physician observation because patient is awaiting CARE team evaluation for the possible need of inpatient psych admission. At the time observation was started patient's vital signs were stable. Patient is alert and oriented. Neuro exam is non-focal. CV: RRR and lungs are clear. Will continue to monitor. Time: 14:35 Reevaluation #2: Time: 06:09 Date: 11/15/24 Provider: Larry Stern MD Patient in physician observation for psychiatric evaluation.? No acute events reported overnight. No current complaints. VS revealed an elevated blood pressure of 166/73, patient has had normal blood pressures and is on losartan 25 mg q.day, will continue to monitor blood pressure and make no change in blood pressure medications at this time. CARE team is considering respite treatment for this patient. Will continue to monitor. Time: 07:58 Date: 11/15/24 Provider: Larry Stern MD Physician observation ended at 07:58 hours. Patient was re-evaluated this morning by the care team. Patient has vague plans of SI but this is baseline in his due to life stressors and homelessness. Care team felt that the patient did not require inpatient level of care and offered respite placement but the patient refused. Patient is agreeable to be discharged at this time. Patient has been cleared for discharge. Medications Administered Generic Name Dose Route Start Last Admin Trade Name Freq PRN Reason Stop Dose Admin Metformin HCl 1,000 mg 11/14/24 22:00 11/14/24 22:39 Metformin Hcl 1,000 Mg Tablet PO 1,000 mg BID DANIEL Administration Olanzapine 5 mg 11/14/24 22:00 11/14/24 22:39 Olanzapine 5 Mg Tablet PO 5 mg BID DANIEL Administration Tamsulosin HCl 0.4 mg 11/14/24 22:00 11/14/24 22:39 Tamsulosin Hcl 0.4 Mg Capsule PO 0.4 mg BEDTIME DANIEL Administration Thiamine HCl 100 mg 11/14/24 22:00 11/14/24 22:40 Thiamine Hcl 100 Mg Tablet PO 100 mg BID DANIEL Administration Medical Decision Making Medical Decision Making MDM Narrative: 54 yo male with history of depression, anxiety, mood disorder, vertigo, insomnia, COPD, HTN, CKD III, DM, who presents to the ER for new visual hallucinations that started yesterday. Hx auditory hallucinations but denies history of visual hallucinations in the past. denies etoh use or possibility of withdrawal. he is aware the hallucinations are not real. his VS are stable. medical workup is unremarkable. being evaluated by the CARE Team patient moved to the pod. pending disposition Differential Diagnosis Differential Diagnoses: The differential diagnosis associated with the presentation includes substance induced mood disorder, acute psychosis, schizophrenia, schizoaffective disorder, PTSD, bipolar disorder, major depression with psychotic features Admission/Observation Consideration of admission/observation: Escalation of care including admission/observation considered Lab Data MDM Lab Attestation statement: I reviewed the patient's lab results. CKD at baseline 11/14/24 13:55 11/14/24 13:55 Labs: Lab Results 11/14/24 11/14/24 Range/Units 13:55 14:09 WBC 7.5 (4.8-10.8) X10*3/uL RBC 4.74 (4.60-5.80) X10*6/uL Hgb 12.9 L (14.0-18.0) g/dl Hct 40.0 L (42.0-52.0) % MCV 84.4 (80.0-98.0) fL MCH 27.2 (27.0-33.0) pg MCHC 32.3 (31.0-36.0) g/dl RDW 15.5 (11.0-16.0) % Plt Count 209 (160-400) X10*3/uL MPV 10.6 (9.4-12.4) fL Immature Gran % (Auto) 0.3 (0.0-0.4) % Neut % (Auto) 65.4 (45-73) % Lymph % (Auto) 20.5 (20-40) % Oliver % (Auto) 7.1 (2-11) % Eos % (Auto) 6.0 H (0-4) % Baso % (Auto) 0.7 (0-2) % Lymph # (Auto) 1.5 (1.2-4.9) X10*3/uL Oliver # (Auto) 0.5 (0.1-1.2) X10*3/uL Eos # (Auto) 0.5 H (0.0-0.4) X10*3/uL Baso # (Auto) 0.1 (0.0-0.2) X10*3/uL Abs Immat Gran (auto) 0.02 (0.00-0.03) X10*3/uL Absolute Neuts (auto) 4.9 (2.0-8.3) x10*3/uL Absolute Nucleated RBC 0.000 (0.0-0.012) X10*3/uL Nucleated RBC % (auto) 0.0 (0.0-0.2) /100WBC Sodium 141 (135-145) mmol/L Potassium 4.7 (3.3-5.1) mmol/L Chloride 109 H (96-108) mmol/L Carbon Dioxide 26 (22-29) mmol/L Anion Gap 11 L (12-20) BUN 11 (9-16) mg/dL Creatinine 1.45 H (0.5-1.4) mg/dL Estim Creat Clear Calc 69.3 Estimated GFR 51 Random Glucose 124 H (60-115) mg/dL Calcium 9.3 (8.4-10.2) mg/dL Total Bilirubin 0.5 (0.0-1.0) mg/dL AST 24 (5-37) U/L ALT 21 (0-40) U/L Alkaline Phosphatase 94 (39-117) U/L Total Protein 6.8 (6.5-8.0) g/dL Albumin 4.0 (3.5-5.0) g/dL TSH 1.02 (0.32-4.0) uIU/mL Urine Color Yellow Urine Appearance Clear Urine pH 6.0 (5.0-9.0) Ur Specific [place] 1.015 (1.005-1.025) Urine Protein Negative (Neg-Trace) mg/dL Urine Glucose (UA) Negative (Negative) mg/dL Urine Ketones Negative (Negative) mg/dL Urine Blood Negative (Negative) Urine Nitrite Negative (Negative) Ur Leukocyte Esterase Negative (Negative) Urine Opiates Screen Not Detected (Not Detect) Ur Buprenorphine Scrn Not Detected (Not Detect) ng/mL Ur Oxycodone Screen Not Detected (Not Detect) ng/mL Urine Methadone Screen Not Detected (Not Detect) ng/mL Urine Fentanyl Screen Not Detected (Not Detect) Ur Barbiturates Screen Not Detected (Not Detect) Ur Phencyclidine Scrn Not Detected (Not Detect) Ur Amphetamines Screen Not Detected (Not Detect) U Benzodiazepines Scrn Not Detected (Not Detect) Urine Cocaine Screen Not Detected (Not Detect) U Marijuana (THC) Screen Not Detected (Not Detect) Ethyl Alcohol < 10 mg/dL External Record Review External record reviewed: Inpatient record, Prior outpatient labs and Prior outpatient radiology Prescription Management I considered prescription management with: Other (anxiolytic, antipsychotic ) Chronic Conditions Patient?s care impacted by: Other (anxiety, depression, mood disorder) Social Determinants Patient?s care significantly limited by Social Determinants of Health including: Problems related to primary support group Critical Care Time Critical Care Time Critical Care Time: No Discharge Plan Discharge Clinical Impression: Visual hallucinations Patient Disposition: Home, Self-Care Additional Instructions: You were seen in our Emergency Department today for treatment of a behavioral health issue. Our care team offered you a respite placement however you did not want it at this time which is okay. Please follow the care team instructions. Continue taking your medications as prescribed by your providers. It is important after your visit that you follow up with either your behavioral health provider or a primary care doctor within 7 days.? If you have trouble finding a therapist you can reach out to [address] [phone] [facility] [place] [facility] can be reached 7 days a week 24 hours a day.? Call [phone] to speak with someone.? Return for any worsening symptoms or concerns such as thoughts of self harm or harm to others. Please call 911 if you feel your mental health is worsening.? Prescriptions: No Action metformin 1,000 mg tablet 1,000 mg PO BID 90 Days Qty: 180 1RF escitalopram oxalate 20 mg tablet 20 mg PO QAM Qty: 90 1RF insulin glargine [Lantus Solostar U-100 Insulin] 100 unit/mL (3 mL) insulin pen 15 unit subcut DAILY Qty: 15 0RF ferrous sulfate 325 mg (65 mg iron) tablet 325 mg PO DAILY Qty: 90 0RF albuterol sulfate [Ventolin HFA] 90 mcg/actuation HFA aerosol inhaler 2 puff inhalation Q4-6H PRN (Reason: for wheezing) Qty: 18 1RF omeprazole 40 mg capsule,delayed release(DR/EC) 40 mg PO DAILY tamsulosin [Flomax] 0.4 mg capsule 0.4 mg PO BEDTIME Qty: 7 0RF atorvastatin [Lipitor] 40 mg tablet 40 mg PO DAILY Qty: 7 0RF betamethasone dipropionate 0.05 % cream 1 appl topical DAILY cholecalciferol (vitamin D3) 50 mcg (2,000 unit) capsule 50 mcg PO DAILY olanzapine 5 mg Tablet 5 mg PO BID 30 Days Qty: 60 0RF thiamine HCl (vitamin B1) 100 mg tablet 100 mg PO BID losartan 25 mg tablet 25 mg PO DAILY Interventions: [place]-Suicide Risk Severity Scale Last Done: 11/14/24 16:49 Print Language: Faroese
--- OUTSIDE RECORDS SUMMARY | 2024-11-14 13:47 | XMS_ITS | Patient Health Record ---
Author Organization [employer] [facility] Address [address] [place] [address] Care Team Providers Care Sintering Press Operator Name Role Phone Fox Ku MD Primary Care Provider Briana Tashi Erwin Unavailable [phone] Alisha Moore Unavailable Unavailable Allergies No Known [...] Problem Status W/U Status Risk Notes Problem 163876342 Colon cancer screening (Z12.11) Active confirmed Problem 175598104 History of adenomatous polyp of colon (Z86.010) Active confirmed Problem Diverticular disease of colon (511737313) Diverticulosis of large intestine without perforation or abscess without bleeding (K57.30) Active confirmed Problem 772982816 Gastroesophageal reflux disease without esophagitis (K21.9) Active confirmed Problem 446718451928382 Preprocedural examination (Z01.818) Active confirmed Problem 90642080 Iron deficiency anemia, unspecified iron deficiency anemia type (D50.9) Active confirmed Plan Of Treatment Pending Test Test Name Order Date Pathology 07/13/2023 Future Test Test Name Order Date UPPER GI ENDOSCOPY 06/23/2017 COLONOSCOPY 06/23/2017 COLONOSCOPY 04/17/2023 Insurance Providers Payer Name Payer Address Payer Phone Subscriber Number Group Number Insured Name Patient Relationship to Insured Coverage Start Date Coverage End Date [facility] [address] [address] [place], [place] [id number] KIAN MAHMOOD Self - patient is the insured MEDICAID OF [facility] [address] [place] [address] [id number] KIAN MAHMOOD Self - patient is the insured Medical (General) History Medical History History ICD Code IDDM Hypertension Heart murmur-Dr. Collins Asthma/COPD- Dr. Correa Pulmonary embolus in 2016--on Coumadin-- sees Dr. Moore Lung mass--surgery in 2008 a s below, with XRT; biopsied in approx 2015 and benign--followed by Dr. Tino Dimas [place],CVA,renal disease GERD--upper endoscopy August of 2017 with [...] History Surgery Date(Month/Year) Mass removed--Dr. Fields at [facility]-- Be nign , but had XRT 2008 Right inguinal hernia 1990 Ear tubes/Adenoids
--- OUTSIDE RECORDS SUMMARY | 2024-11-14 13:47 | XMS_ITS | Clinical Summary ---
Author Organization [facility] Address [address] [place] [address] Care Team Providers Care Internet Marketing Executive Name Role Phone Unavailable Primary Care Provider [...]
--- OUTSIDE RECORDS SUMMARY | 2024-11-14 13:47 | XMS_ITS | Clinical Summary ---
Author Organization [employer] Address [address] [facility] [address] [place] [address] Care Team Providers Care Property And Casualty Insurance Agent Name Role Phone Unavailable Primary Care Provider [...] Description 10/24/2024 10:00 AM EDT Office Visit [facility] [address] [place] [address] Perez Romero DDS Dental abscess (Primary Dx); [...] Care Team (Late st Contact Info) Description 12/15/2024 10:00 AM EDT Office Visit [facility] [address] [place], [place] [phone] Perez Romero, JOE [address] [place], [place] [phone] Health Maintenance Due Date Last Done Comments [...] Most Recently Relevant to Health Maintenance Insurance [facility] MEDICAID STAND ADULT
--- OUTSIDE RECORDS SUMMARY | 2024-11-14 13:47 | XMS_ITS ---
Author Name [facility] Organization Unknown Care Team Organization Name Specialty Phone Email Start Date End [facility]
--- OUTSIDE RECORDS SUMMARY | 2024-11-14 13:47 | XMS_ITS | Clinical Summary ---
Author Organization [facility] Facility Address [address] [place] [address] Care Team Providers Care Lead Press Operator Name Role Phone Bon Arvizu MD Primary Care Provider [phone] Allergies No known active allergies Medications Ventolin [...] [facility] [address] [place] [address] Tashi Bonner MD [address] [facility] [address] [place] [phone] Health Maintenance Due Date Last Done Comments [...] Visual Foot Exam 09/25/2022 Influenza Vaccine (#1) [address] [place] [address] [place] [address] Care Teams Lead Press Operator Relationship Specialty Start Date End Date Bon Arvizu MD [address] [place] [address] PCP - General Internal Medicine 06/04/22
[2024-11-14 13:59] LABS: MANUAL DIFF FLAG NO
[2024-11-14 14:11] LABS: Hematocrit 40.0 % (42.0-52.0); Hemoglobin 12.9 g/dl (14.0-18.0); Imm Gran Abs Auto 0.02 X10*3/uL (0.00-0.03); Imm Gran Pct Auto 0.3 % (0.0-0.4); Lymphocytes Absolute Auto 1.5 X10*3/uL (1.2-4.9); Mean Corpuscular HGB Conc 32.3 g/dl (31.0-36.0); Mean Corpuscular Hemoglobin 27.2 pg (27.0-33.0); Mean Corpuscular Volume 84.4 fL (80.0-98.0); NRBC Abs Auto 0.000 X10*3/uL (0.0-0.012); NRBC Pct Auto 0.0 /100WBC (0.0-0.2); Platelet Count 209 X10*3/uL (160-400); Red Blood Count 4.74 X10*6/uL (4.60-5.80); White Blood Count 7.5 X10*3/uL (4.8-10.8)
[2024-11-14 14:16] LABS: Appearance Urine Clear; Glucose Urine UA Negative (Negative); PH 6.0 (5.0-9.0); Specific Gravity - Urine 1.015 (1.005-1.025)
[2024-11-14 14:25] LABS: Alanine Aminotransferase 21 U/L (0-40); Albumin Level 4.0 g/dL (3.5-5.0); Alkaline Phosphatase 94 U/L (39-117); Anion Gap 11 (12-20); Aspartate Amino Transferase 24 U/L (5-37); Blood Urea Nitrogen 11 mg/dL (9-16); Calcium 9.3 mg/dL (8.4-10.2); Carbon Dioxide 26 mmol/L (22-29); Chloride 109 mmol/L (96-108); Creatinine Clr Calc Pharmacy 69.3; Estimated Glomerular Filt Rate 51; Potassium 4.7 mmol/L (3.3-5.1); Sodium 141 mmol/L (135-145); Total Protein 6.8 g/dL (6.5-8.0)
[2024-11-14 14:29] LABS: Cannabinoid Screen Urine Not Detected (Not Detect)
[2024-11-14 14:56] VITALS: BP 135/74; PULSE 83; RESP 18; TEMP 36.8; O2SAT 95
--- NOTE | 2024-11-14 17:54 | MHC.CARE ---
Patient evaluated by the CARE Team, he will remain in the ED for the night and be reassessed for final disposition in the morning. MAGO Stephenson updated
--- NOTE | 2024-11-14 19:30 | PC.NURSE ---
patient appears to remain at rest presently respirations are even and unlabored patient appears in no distress
--- NOTE | 2024-11-14 21:57 | PC.NURSE ---
client appears relaxed in milieu once cllient reviewed medications w me t/w asked provider to continue (;ate entry) t/w still awaiting medications to be continued. initial request 2000
[2024-11-15 02:35] VITALS: BP 166/73; PULSE 63; RESP 17; TEMP 37; O2SAT 95
--- NOTE | 2024-11-15 07:56 | MHC.CARE ---
Pt does not meet the criteria for IPLOC and will be discharged to follow up with current providers.
[2024-11-15 08:04] VITALS: BP 124/74; PULSE 78; RESP 16; TEMP 36.9; O2SAT 99
== END 2024-11-15 08:31 | disposition home or self-care (01) ==
PROVIDERS: Nurse Practitioner Family; Physician Assistant; Emergency Provider Emergency Medicine; PCP Internal Medicine
DX: R44.1 Visual hallucinations (principal); R44.0 Auditory hallucinations; R45.851 Suicidal ideations; F32.A Depression, unspecified; F41.9 Anxiety disorder, unspecified; F39 Unspecified mood [affective] disorder; E11.22 Type 2 diabetes mellitus with diabetic chronic kidney disease; I12.9 Hypertensive chronic kidney disease with stage 1 through stage 4 chronic kidney disease, or unspecified chronic kidney disease; N18.30 Chronic kidney disease, stage 3 unspecified
CPT/HCPCS: 36415; 80053; 80307; 81003; 84443; 85025; 99284; S9485

== ENCOUNTER 2024-11-16 11:35 | Emergency (ER) | payer OTHER, SELFPAY ==
--- NOTE | 2024-11-16 11:53 | ED.GENADULT ---
HPI - General Adult General Chief complaint: Psychiatric Symptoms Stated complaint: SI Time Seen by Provider: 11/16/24 11:49 Source: patient Mode of arrival: ambulatory Limitations: no limitations History of Present Illness ED Provider: Zenaida June PA-C HPI narrative: Patient is a 54 year old assigned male at with a history of COPD, asthma, GERD, DM, HLD, MDD, and CKD presenting to the emergency department today with suicidal ideation. Patient states that he is having thoughts of killing himself by jumping off a [address]. Patient denies any dizziness, lightheadedness, abdominal pain, nausea, vomiting, fever, chills, blurry vision, double vision, loss of vision, chest pain, difficulty breathing, shortness of breath, back pain, night sweats, pain with urination, increased urinary frequency, increased urinary urgency, blood in his urine or stool, syncope or a near syncopal episode, recent trauma or falls, bowel incontinence, bladder incontinence, or any other complaints at this time. Relieving factors: none Exacerbating factors: none Associated symptoms: denies other symptoms Treatments prior to arrival: none Related Data Home Medications ?Medication ?Instructions ?Recorded ?Confirmed omeprazole 40 mg capsule,delayed 40 mg PO DAILY 06/17/24 11/14/24 release losartan 25 mg tablet 25 mg PO DAILY 09/13/24 11/14/24 betamethasone dipropionate 0.05 % 1 appl topical DAILY wound 10/12/24 11/14/24 topical cream cholecalciferol (vitamin D3) 50 50 mcg PO DAILY 10/12/24 11/14/24 mcg (2,000 unit) capsule thiamine HCl (vitamin B1) 100 mg 100 mg PO BID 11/14/24 11/14/24 tablet Previous Rx's ?Medication ?Instructions ?Recorded atorvastatin 40 mg tablet (Lipitor) 40 mg PO DAILY #7 tabs 06/28/24 tamsulosin 0.4 mg capsule (Flomax) 0.4 mg PO BEDTIME #7 caps 06/28/24 metformin 1,000 mg tablet 1,000 mg PO BID 90 days #180 tabs 08/29/24 escitalopram oxalate 20 mg tablet 20 mg PO QAM #90 tabs 10/06/24 olanzapine 5 mg tablet 5 mg PO BID 30 days #60 tabs 10/19/24 ferrous sulfate 325 mg (65 mg 325 mg PO DAILY #90 tabs 10/27/24 iron) tablet insulin glargine 100 unit/mL (3 15 unit (0.15 mL) subcut DAILY #15 10/27/24 mL) subcutaneous pen (Lantus mL Solostar U-100 Insulin) albuterol sulfate 90 mcg/actuation 2 puff inhalation Q4-6H PRN for 10/31/24 aerosol inhaler (Ventolin HFA) wheezing #18 ea Allergies Allergy/AdvReac Type Severity Reaction Status Date / Time pollen extracts (POLLEN) Allergy Mild RUNNY NOSE Verified 11/16/24 11:56 cat dander (CATS) Allergy Unknown UNKNOWN Verified 11/16/24 11:56 dog dander (DOGS) Allergy Unknown UNKNOWN Verified 11/16/24 11:56 mold (MOLD) Allergy Unknown UNKNOWN Verified 11/16/24 11:56 Review of Systems Constitutional: Constitutional: Reports no additional constitutional complaints, Denies chills, Denies fever(s) and Denies night sweats Eyes: Eyes: Reports no additional eye complaints, Denies blurry vision, Denies change in vision, Denies diplopia, Denies eye discharge, Denies loss of vision and Denies eye pain ENT: Denies dizziness Cardiovascular: Cardiovascular: Reports no additional cardiovascular complaints, Denies chest pain, Denies lightheadedness, Denies Loss of Consciousness and Denies dyspnea Respiratory: Respiratory: Reports no additional respiratory complaints and Denies dyspnea Gastrointestinal: Gastrointestinal: Reports no additional gastrointestinal complaints, Denies abdominal pain, Denies melena, Denies hematochezia, Denies change in bowel habits and Denies change in stool character Genitourinary: Genitourinary: Reports no additional male genitourinary complaints, Denies hematuria, Denies oliguria, Denies difficulty urinating, Denies dysuria, Denies urinary frequency, Denies urinary hesitancy, Denies urinary incontinence and Denies urinary urgency Musculoskeletal: Musculoskeletal: Reports no additional musculoskeletal complaints, Denies numbness and Denies tingling Neurologic: Denies dizziness, Denies loss of vision, Denies numbness and Denies tingling Psychiatric: Psychiatric: Reports depression, Denies homicidal ideation and Reports suicidal ideation Endocrine: Endocrine: Reports no additional endocrine complaints Hematologic/Lymphatic: Hematologic/Lymphatic: Reports no additional hematologic/lymphatic complaints Allergic/Immunologic: Allergic/Immunologic: Reports no additional allergic/immunologic complaints PMFSH Past Medical History Attestation statement: The following information was validated with the patient. Source: old records reviewed and nursing notes reviewed Medical History Suicidal ideation Situational crisis Suicidal ideation Psychosis Chest pain Recurrent major depression Allergic rhinitis Insomnia Palpitations Vitamin D deficiency Chronic kidney disease, stage III (moderate) GERD without esophagitis Restrictive lung disease Obesity (BMI 30-39.9) Benign essential hypertension Pure hypercholesterolemia Diabetes mellitus Pulmonary emboli Chondrosarcoma Hyperlipidemia Chronic restrictive lung disease COPD (chronic obstructive pulmonary disease) Asthma Surgical History History of esophagogastroduodenoscopy (EGD) H/O colonoscopy History of inguinal hernia repair Hx of exploratory thoracotomy H/O tooth extraction Family History Family History Father Hypertension Kidney failure, acute Mother Lung cancer Family/Other Diabetes Social History Social History Household Members: None Housing: House Do you presently have visiting nurse or other home services: No Alcohol intake: former Patient Tobacco Use Status: Never used Tobacco Smoked in Last 30 Days: No e-Cigarette/Vaping Use: Never Used Second Hand Smoke Exposure: Yes Use of substances other than those prescribed or required for medical reasons: No Advance Directives: No Advance Directives Information Provided: Yes Do you have a plan to hurt others: No Plan service: No Current occupational status: unemployed Sexual orientation: Straight/Heterosexual Cognitive needs: No Hearing needs: No Vision needs: Yes (Glasses) Physical Exam ED Vital Signs: Vital Signs - 24 hr 11/16/24 11:55 Temperature 97.4 F Pulse Rate 90 Respiratory Rate 18 Blood Pressure 152/79 H Pulse Oximetry 98 Oxygen Delivery Method Room Air BMI result Body Mass Index 36.2 Const General: cooperative, no acute distress, alert and awake Nutritional Appearance: well nourished Orientation/consciousness: patient oriented x3 HENMT Head: Yes normal to inspection and Yes atraumatic Ears: hearing grossly normal bilaterally and external ears normal General nose exam: Normal external nose present, no nasal discharge noted and no epistaxis Face and sinus: Yes normal facial exam, No abrasion and No laceration Mouth: Normal oral and palatal mucosa present, no drooling and no muffled voice Eyes General: appearance normal, both eyes and all related structures Periorbital: periorbital findings normal Eyelids: Yes eyelids normal Conjunctivae: conjunctivae normal Pupils: Equal, round and reactive pupils present EOM: EOMs intact bilaterally Neck Neck: Yes normal visual inspection, Yes full ROM and Yes no lymphadenopathy Resp Effort & Inspection: normal respiratory effort and able to speak in complete sentences Neuro General: patient oriented x3, moves all extremities and CN's II-XI intact bilaterally Cranial nerves: Yes Equal, round and reactive pupils present Cognition (Neuro): normal cognition Extrem General: Yes normal to inspection, Yes full ROM and Yes capillary refill normal Psych Appearance: grossly normal Mental Status: mental status grossly normal Thought content: Suicidality present Medical Decision Making Medical Decision Making MDM Narrative: Patient is a 54 year old assigned male at with a history of COPD, asthma, GERRD, DM, HLD, MDD, and CKD presenting to the emergency department today with suicidal ideation. Patient's physical exam was as noted in the physical exam portion of this note. Patient's blood work was unremarkable. Patient's urine showed no acute process. I explained my physical exam findings as well as all test results to the patient. I answered all questions asked by the patient. Patient is awaiting CARE team evaluation. Patient will remain in observation pending CARE team evaluation. 12/06/2024 1523 ---> Patient accepted at a mental health facility in [place], transfer set for 8pm tonight. Differential Diagnosis Differential Diagnoses: The differential diagnosis associated with the presentation includes SI Depression Admission/Observation Consideration of admission/observation: Escalation of care including admission/observation considered Patient accepted at a [facility] hospital in [place]. Lab Data [facility] Lab Attestation statement: I reviewed the patient's lab results. My interpretation of these results are in the MDM Rationale portion of this note. 11/16/24 12:20 11/16/24 12:20 Labs: Lab Results 11/16/24 11/16/24 Range/Units 12:19 12:20 WBC 5.7 (4.8-10.8) X10*3/uL RBC 4.66 (4.60-5.80) X10*6/uL Hgb 12.9 L (14.0-18.0) g/dl Hct 39.4 L (42.0-52.0) % MCV 84.5 (80.0-98.0) fL MCH 27.7 (27.0-33.0) pg MCHC 32.7 (31.0-36.0) g/dl RDW 15.9 (11.0-16.0) % Plt Count 200 (160-400) X10*3/uL MPV 10.3 (9.4-12.4) fL Immature Gran % (Auto) 0.4 (0.0-0.4) % Neut % (Auto) 63.4 (45-73) % Lymph % (Auto) 22.8 (20-40) % [place] % (Auto) 6.1 (2-11) % Eos % (Auto) 6.8 H (0-4) % Baso % (Auto) 0.5 (0-2) % Lymph # (Auto) 1.3 (1.2-4.9) X10*3/uL [place] # (Auto) 0.4 (0.1-1.2) X10*3/uL Eos # (Auto) 0.4 (0.0-0.4) X10*3/uL Baso # (Auto) 0.0 (0.0-0.2) X10*3/uL Abs Immat Gran (auto) 0.02 (0.00-0.03) X10*3/uL Absolute Neuts (auto) 3.6 (2.0-8.3) x10*3/uL Absolute Nucleated RBC 0.000 (0.0-0.012) X10*3/uL Nucleated RBC % (auto) 0.0 (0.0-0.2) /100WBC Sodium 141 (135-145) mmol/L Potassium 4.4 (3.3-5.1) mmol/L Chloride 106 (96-108) mmol/L Carbon Dioxide 27 (22-29) mmol/L Anion Gap 12 (12-20) BUN 10 (9-16) mg/dL Creatinine 1.35 (0.5-1.4) mg/dL Estim Creat Clear Calc 74.5 Estimated GFR 55 Random Glucose 178 H (60-115) mg/dL Calcium 8.9 (8.4-10.2) mg/dL Total Bilirubin 0.5 (0.0-1.0) mg/dL AST 29 (5-37) U/L ALT 22 (0-40) U/L Alkaline Phosphatase 98 (39-117) U/L Total Protein 7.1 (6.5-8.0) g/dL Albumin 4.0 (3.5-5.0) g/dL Urine Color Yellow Urine Appearance Error Urine pH 5.5 (5.0-9.0) Ur Specific [place] 1.010 (1.005-1.025) Urine Protein Negative (Neg-Trace) mg/dL Urine Glucose (UA) Negative (Negative) mg/dL Urine Ketones Negative (Negative) mg/dL Urine Blood Negative (Negative) Urine Nitrite Negative (Negative) Ur Leukocyte Esterase Negative (Negative) Salicylates < 5.0 L (15-30) mg/dL Urine Opiates Screen Not Detected (Not Detect) Ur Buprenorphine Scrn Not Detected (Not Detect) ng/mL Ur Oxycodone Screen Not Detected (Not Detect) ng/mL Urine Methadone Screen Not Detected (Not Detect) ng/mL Urine Fentanyl Screen Not Detected (Not Detect) Acetaminophen < 3 (<30) mcg/mL Ur Barbiturates Screen Not Detected (Not Detect) Ur Phencyclidine Scrn Not Detected (Not Detect) Ur Amphetamines Screen Not Detected (Not Detect) U Benzodiazepines Scrn Not Detected (Not Detect) Urine Cocaine Screen Not Detected (Not Detect) U Marijuana (THC) Screen Not Detected (Not Detect) Ethyl Alcohol < 10 mg/dL Discharge Plan Discharge Clinical Impression: Suicidal ideation Patient Disposition: Xfer Psychiatric Hosp Transfer Details: [facility] [place] Prescriptions: No Action metformin 1,000 mg tablet 1,000 mg PO BID 90 Days Qty: 180 1RF escitalopram oxalate 20 mg tablet 20 mg PO QAM Qty: 90 1RF insulin glargine [Lantus Solostar U-100 Insulin] 100 unit/mL (3 mL) insulin pen 15 unit subcut DAILY Qty: 15 0RF ferrous sulfate 325 mg (65 mg iron) tablet 325 mg PO DAILY Qty: 90 0RF albuterol sulfate [Ventolin HFA] 90 mcg/actuation HFA aerosol inhaler 2 puff inhalation Q4-6H PRN (Reason: for wheezing) Qty: 18 1RF omeprazole 40 mg capsule,delayed release(DR/EC) 40 mg PO DAILY tamsulosin [Flomax] 0.4 mg capsule 0.4 mg PO BEDTIME Qty: 7 0RF atorvastatin [Lipitor] 40 mg tablet 40 mg PO DAILY Qty: 7 0RF betamethasone dipropionate 0.05 % cream 1 appl topical DAILY cholecalciferol (vitamin D3) 50 mcg (2,000 unit) capsule 50 mcg PO DAILY olanzapine 5 mg Tablet 5 mg PO BID 30 Days Qty: 60 0RF thiamine HCl (vitamin B1) 100 mg tablet 100 mg PO BID losartan 25 mg tablet 25 mg PO DAILY Interventions: [place]-Suicide Risk Severity Scale Last Done: 11/16/24 12:04 Print Language: Martiniquais
[2024-11-16 11:55] VITALS: BP 152/79; PULSE 90; RESP 18; TEMP 36.3; O2SAT 98; BMI 36.2
--- NOTE | 2024-11-16 12:07 | PC.NURSE ---
Patient from home with complaints of SI with plan to [place] [address]. Denies pain or discomfort.
[2024-11-16 12:24] LABS: MANUAL DIFF FLAG NO
[2024-11-16 12:26] LABS: Hematocrit 39.4 % (42.0-52.0); Hemoglobin 12.9 g/dl (14.0-18.0); Imm Gran Abs Auto 0.02 X10*3/uL (0.00-0.03); Imm Gran Pct Auto 0.4 % (0.0-0.4); Lymphocytes Absolute Auto 1.3 X10*3/uL (1.2-4.9); Mean Corpuscular HGB Conc 32.7 g/dl (31.0-36.0); Mean Corpuscular Hemoglobin 27.7 pg (27.0-33.0); Mean Corpuscular Volume 84.5 fL (80.0-98.0); NRBC Abs Auto 0.000 X10*3/uL (0.0-0.012); NRBC Pct Auto 0.0 /100WBC (0.0-0.2); Platelet Count 200 X10*3/uL (160-400); Red Blood Count 4.66 X10*6/uL (4.60-5.80); White Blood Count 5.7 X10*3/uL (4.8-10.8)
[2024-11-16 12:38] LABS: Appearance Urine Error; Glucose Urine UA Negative (Negative); PH 5.5 (5.0-9.0); Specific Gravity - Urine 1.010 (1.005-1.025)
[2024-11-16 12:47] LABS: Alanine Aminotransferase 22 U/L (0-40); Albumin Level 4.0 g/dL (3.5-5.0); Alkaline Phosphatase 98 U/L (39-117); Anion Gap 12 (12-20); Aspartate Amino Transferase 29 U/L (5-37); Blood Urea Nitrogen 10 mg/dL (9-16); Calcium 8.9 mg/dL (8.4-10.2); Carbon Dioxide 27 mmol/L (22-29); Chloride 106 mmol/L (96-108); Creatinine Clr Calc Pharmacy 74.5; Estimated Glomerular Filt Rate 55; Potassium 4.4 mmol/L (3.3-5.1); Sodium 141 mmol/L (135-145); Total Protein 7.1 g/dL (6.5-8.0)
[2024-11-16 12:47] LABS: Acetaminophen LAB < 3 mcg/mL (<30); Salicylate < 5.0 mg/dL (15-30)
[2024-11-16 12:48] LABS: Cannabinoid Screen Urine Not Detected (Not Detect)
--- OUTSIDE RECORDS SUMMARY | 2024-11-16 13:56 | XMS_ITS | Clinical Summary ---
Author Organization [facility] Address [address] [place] [address] Care Team Providers Care Chargemaster Specialist Name Role Phone Unavailable Primary Care [...]
--- OUTSIDE RECORDS SUMMARY | 2024-11-16 13:56 | XMS_ITS | Clinical Summary ---
Author Organization [facility] Address [address] [place] [address] Care Team Providers Care Stage Driver Name Role Phone Bon Arvizu MD Primary Care Provider [phone] Allergies No known active allergies Medications Ventolin [...] Visit [facility] [address] [place] [address] Tashi Bonner MD [address] [facility] [address] [place] [id number] Health Maintenance Due Date Last Done Comments [...] Exam 09/25/2022 Influenza Vaccine (#1) [address] [place] [address] [place] [address] Care Teams Stage Driver Relationship Specialty Start Date End Date Bon Arvizu MD [address] [place] [address] PCP - General Internal Medicine 06/04/22
--- OUTSIDE RECORDS SUMMARY | 2024-11-16 13:56 | XMS_ITS | Patient Health Record ---
Author Organization [facility] Address [address] [place] [address] Care Team Providers Care Cyber Security Specialist Name Role Phone Fox Ku MD Primary Care Provider Briana Tashi Erwin Unavailable [phone] Alisha Moore Unavailable Unavailable Allergies No Known [...] Problem Status W/U Status Risk Notes Problem 132183228 Colon cancer screening (Z12.11) Active confirmed Problem 981384826 History of adenomatous polyp of colon (Z86.010) Active confirmed Problem Diverticulosis o f large intestine without perforation or abscess without bleeding (K57.30) Active confirmed Problem 793622948 Gastroesophageal reflux disease without esophagitis (K21.9) Active confirmed Problem 026265870307511 Preprocedural examination (Z01.818) Active confirmed Problem 07735422 Iron deficiency anemia, unspecified iron deficiency anemia type (D50.9) Active confirmed Plan Of Treatment Pending Test Test Name Order Date Pathology 07/13/2023 Future Test Test Name Order Date UPPER GI ENDOSCOPY 06/23/2017 COLONOSCOPY 06/23/2017 COLONOSCOPY 04/17/2023 Insurance Providers Payer Name Payer Address Payer Phone Subscriber Number Group Number Insured Name Patient Relationship to Insured Coverage Start Date Coverage End Date [facility] [address] [address] [place], [place] [id number] KIAN MAHMOOD Self - patient is the insured MEDICAID OF [facility] [address] [place] [address] [phone] [id number] KIAN MAHMOOD Self - patient is the insured Medical (General) History Medical History History ICD Code IDDM Hypertension Heart murmur-Dr. Collins Asthma/COPD- Dr. Correa Pulmonary embolus in 2016--on Coumadin-- sees Dr. Dulala Lung mass--surgery in 2008 a s below, with XRT; biopsied in approx 2015 and benign--followed by Dr. Tino Cristobalies [facility],CVA,renal disease GERD--upper endoscopy August of 2017 with [...] History Surgery Date(Month/Year) Mass removed--Dr. Fields at [facility]-- Be nign , but had XRT 2008 Right inguinal hernia 1990 Ear tubes/Adenoids
--- OUTSIDE RECORDS SUMMARY | 2024-11-16 13:56 | XMS_ITS | Clinical Summary ---
Author Organization [facility] Address [address] [facility] [address] [place] [address] Care Team Providers Care Venereal Disease Control Head Name Role Phone Unavailable Primary Care Provider [...] Description 10/24/2024 10:00 AM EDT Office Visit [facility] [address] [place] [address] Perez Romero DDS Dental abscess (Primary Dx); [...] Description 12/15/2024 10:00 AM EDT Office Visit [facility] [address] [place], [place] [phone] Perez Romero, JOE [address] [place], [place] [phone] Health Maintenance Due Date Last Done Comments [...] Most Recently Relevant to Health Maintenance Insurance [facility] MEDICAID STAND ADULT
--- NOTE | 2024-11-16 15:14 | MHC.CARE ---
BH8 Jasbir Joseph was accepted to [facility] [address] [place] [address] for today, ETA 8pm. Accepting is Dr. Steel, they will call us for N2N
--- NOTE | 2024-11-16 15:46 | PC.NURSE ---
Pt aware of plan of care for transfer to [facility], offering no complaints to this Rn at this time
[2024-11-16 15:47] VITALS: BP 139/65; PULSE 62; RESP 16; TEMP 36.4; O2SAT 97
[2024-11-16 20:44] VITALS: BP 117/61; PULSE 60; RESP 16; TEMP 36.3; O2SAT 98
[2024-11-16 20:50] VITALS: BP 117/61; PULSE 93; RESP 16; TEMP 36.3; O2SAT 98
== END 2024-11-16 20:53 ==
PROVIDERS: Physician Assistant Medical; Emergency Provider Emergency Medicine; PCP Internal Medicine
DX: R45.851 Suicidal ideations (principal); F39 Unspecified mood [affective] disorder; E11.9 Type 2 diabetes mellitus without complications; I10 Essential (primary) hypertension; E78.5 Hyperlipidemia, unspecified; Z79.84 Long term (current) use of oral hypoglycemic drugs; Z79.02 Long term (current) use of antithrombotics/antiplatelets; Z79.899 Other long term (current) drug therapy
CPT/HCPCS: 36415; 80053; 80143; 80179; 80307; 81003; 85025; 99285; S9485

== ENCOUNTER 2024-12-28 10:41 | Emergency (ER) | payer OTHER, SELFPAY ==
--- NOTE | 2024-12-28 | ECG_ITS ---
Test Reason : PALPITATION Blood Pressure : */* mmHG Vent. Rate : 69 BPM Atrial Rate : 69 BPM P-R Int : 144 ms QRS Dur : 112 ms QT Int : 426 ms P-R-T Axes : 18 -3 5 degrees QTcB Int : 456 ms Normal sinus rhythm Moderate voltage criteria for LVH, may be normal variant ( R in aVL , Hettinger product ) Borderline ECG When compared with ECG of 12-Nov-2024 16:05, No significant change was found Referred By: Generic ED Physician Electronically Signed By: HILTON DONATO MD
[2024-12-28 10:59] VITALS: BP 132/70; PULSE 69; RESP 18; TEMP 36.2; O2SAT 94; BMI 39.5
--- NOTE | 2024-12-28 11:00 | ED_ITS ---
HPI - General Adult General Chief complaint: Chest Pain Stated complaint: heart racing Time Seen by Provider: 12/28/24 13:31 Source: patient, RN notes reviewed and old records reviewed Mode of arrival: ambulatory Limitations: no limitations History of Present Illness ED Provider: Waqar HPI narrative: 44-year-old male past medical history significant for history of palpitations, vertigo, anxiety, depression, COPD presents for evaluation of ?my heart is racing. ? Patient reports he had chest pain during yesterday he reports associated shortness of breath and anxiety He reports his home medications have not been helping. He denies any depression or suicidal ideation He rates his pain as 8/10 Denies any cough, fevers, chills, abdominal pain, back pain Related Data Home Medications ?Medication ?Instructions ?Recorded ?Confirmed losartan 25 mg tablet 25 mg PO DAILY 09/13/2412/02 betamethasone dipropionate 0.05 % 1 appl topical DAILY wound 10/12/24 11/14/24 topical cream cholecalciferol (vitamin D3) 50 50 mcg PO DAILY 11/14/24 mcg (2,000 unit) capsule thiamine HCl (vitamin B1) 100 mg 100 mg PO BID 5 11/14/24 tablet Previous Rx's ?Medication ?Instructions ?Recorded tamsulosin 0.4 mg capsule (Flomax) 0.4 mg PO BEDTIME # 7 caps 06/28/24 metformin 1,000 mg tablet 1,000 mg PO BID 90 days #180 tabs 08/29/24 escitalopram oxalate 20 mg tablet 20 mg PO QAM #90 tab s 10/06/24 olanzapine 5 mg tablet 5 mg PO BID 30 days #60 tabs 10/19/24 ferrous sulfate 325 mg (65 mg 325 mg PO DAILY #90 tabs 10/27/24 iron) tablet insulin glargine 100 unit/mL (3 15 unit (0.15 mL) subc ut DAILY #15 10/27/24 mL) subcutaneous pen (Lantus mL Solostar U-100 Insulin) atorvastatin 40 mg tablet 40 mg PO DAILY #90 tabs 11/10 06/04 omeprazole 40 mg capsule,delayed 40 mg PO DAILY #90 ca ps 12/08/24 release albuterol sulfate 90 mcg/actuation 2 puff inhalation Q 4-6H PRN for 12/23/24 aerosol inhaler (Ventolin HFA) wheezing #18 ea hydroxyzine HCl 25 mg tablet 25 mg PO TID PRN anxiety #30 tabs 12/23/24 Allergies Allergy/AdvReac Type Severity Reaction Status Date / Time pollen extracts (POLLEN) Allergy Mild RUNNY NOSE Verified 12/28/24 11:00 cat dander (CATS) Allergy Unknown UNKNOWN Verified 12/28/24 11:00 dog dander (DOGS) Allergy Unknown UNKNOWN Verified 12/28/24 11:00 mold (MOLD) Allergy Unknown UNKNOWN Verified 12/28/24 11:00 Review of Systems 2 Constitutional: Constitutional: Denies body ache(s), Denies chills, Denies fever(s) and Denies headache(s) Eyes: Eyes: Denies blurry vision ENT: Denies headache(s) Cardiovascular: Cardiovascular: Reports chest pain, Reports rapid heart rate, Reports palpitations and Reports dyspnea Respiratory: Respiratory: Denies cough and Reports dyspnea Gastrointestinal: Gastrointestinal: Denies abdominal pain, Denies nausea and Denies vomiting Musculoskeletal: Musculoskeletal: Denies back pain Integumentary/Breasts: Skin/Breast: Denies rash Neurologic: Denies headache(s) Endocrine: Endocrine: Reports palpitations PMFSH Past Medical History Medical History Suicidal ideation Situational crisis Suicidal ideation Psychosis Chest pain Recurrent major depression Allergic rhinitis Insomnia Palpitations Vitamin D deficiency Chronic kidney disease, stage III (moderate) GERD without esophagitis Restrictive lung disease Obesity (BMI 30-39.9) Benign essential hypertension Pure hypercholesterolemia Diabetes mellitus Pulmonary emboli Chondrosarcoma Hyperlipidemia Chronic restrictive lung disease COPD (chronic obstructive pulmonary disease) Asthma Surgical History History of esophagogastroduodenoscopy (EGD) H/O colonoscopy History of inguinal hernia repair Hx of exploratory thoracotomy H/O tooth extraction Family History Family History Father Hypertension Kidney failure, acute Mother Lung cancer Family/Other Diabetes Social History Social History Household Members: None Housing: House Do you presently have visiting nurse or other home services: No Alcohol intake: former Patient Tobacco Use Status: Never used Tobacco e-Cigarette/Vaping Use: Never Used Second Hand Smoke Exposure: Yes Advance Directives: No Advance Directives Information Provided: Yes service: No Current occupational status: unemployed Sexual orientation: Straight/Heterosexual Cognitive needs: No Hearing needs: No Vision needs: Yes (Glasses) Physical Exam ED Vital Signs: Vital Signs - 24 hr 12/28/24 10:59 12/28/24 13:45 Temperature 97.2 F 97.2 F Pulse Rate 69 69 Respiratory Rate 18 18 Blood Pressure 132/70 132/70 Pulse Oximetry 94 94 Oxygen Delivery Method Room Air Room Air BMI result Body Mass Index 39.5 Const General: healthy appearing, comfortable, no acute distress, alert and awake Nutritional Appearance: well nourished Orientation/consciousness: patient oriented x3 HENMT Head: Yes normocephalic and Yes atraumatic Eyes Eyelids: Yes eyelids normal Conjunctivae: conjunctivae normal Sclerae: sclerae normal Corneas: corneas normal Pupils: Equal, round and reactive pupils present EOM: EOMs intact bilaterally Neck Neck: Yes full ROM Resp Effort & Inspection: normal respiratory effort, able to speak in complete sentences, no audible wheezes and not labored Auscultation: clear to auscultation bilaterally Cardio Rate: regular rate Rhythm: regular rhythm GI Inspection: No distended Palpation (GI): Soft to palpation, not firm, nontender, no guarding and not rigid Skin General skin exam: elasticity normal Neuro General: patient oriented x3 Cranial nerves: Yes Equal, round and reactive pupils present and Yes Bilaterally intact EOM present Cognition (Neuro): normal cognition Extrem Other: Moving all extremities well without any obvious deformities Course Course Course Narrative: RME, this is a rapid medical exam performed by Butch Zavaleta please refer to primary provider for complete H&P- 54-year-old male with past medical history significant for major depression, anxiety, history palpitations, COPD, chronic kidney disease, diabetes, hyperlipidemia presents for evaluation of chest pain, shortness of breath and palpitations. EKG performed on arrival, plan for basic labs vital signs are stable on arrival the patient is well-appearing Medications Administered Discontinued Medications Generic Name Dose Route Start Last Admin Trade Name Freq PRN Reason Stop Dose Admin Lorazepam 1 mg 12/28/24 13:33 12/28/24 13:42 Lorazepam 1 Mg Tablet PO 12/28/24 13:34 1 mg ONCE ONE Administration Medical Decision Making Medical Decision Making [facility] Narrative: 54-year-old male presents for evaluation of mostly palpitations but does describe chest pain and shortness of breath as well. The patient had a workup that included an EKG showing sinus rhythm with a rate of 69 beats minute. Labs that did not show any acute concerning abnormalities. The patient does have a mild anemia. He denies any black or bloody stool, denies any abdominal pain. The patient has an elevated creatinine of 1.47, this is consistent with his recent baseline as he was 1.45 in November of 2024. His BUN is not significantly elevated to suggest upper GI bleed. Troponin is within normal limits at 5.0 and he rules out for ACS with a nonischemic EKG and his pain started yesterday. There was no indication for a repeat troponin. We will treat the patient's symptoms with lorazepam Differential Diagnosis Differential Diagnoses: The differential diagnosis associated with the presentation includes Admission/Observation Consideration of admission/observation: Escalation of care including admission/observation considered Lab Data [facility] Lab Attestation statement: I reviewed the patient's lab results. As above 12/28/24 11:42 12/28/24 11:42 Labs: Lab Results 12/28/24 Range/Units 11:42 WBC 5.0 (4.8-10.8) X10*3/uL RBC 3.85 L (4.60-5.80) X10*6/uL Hgb 10.9 L (14.0-18.0) g/dl Hct 33.5 L (42.0-52.0) % MCV 87.0 (80.0-98.0) fL MCH 28.3 (27.0-33.0) pg MCHC 32.5 (31.0-36.0) g/dl RDW 18.8 H (11.0-16.0) % Plt Count 144 L D (160-400) X10*3/uL MPV 9.3 L (9.4-12.4) fL Immature Gran % (Auto) 0.2 (0.0-0.4) % Neut % (Auto) 55.3 (45-73) % Lymph % (Auto) 30.5 (20-40) % [place] % (Auto) 8.8 (2-11) % Eos % (Auto) 4.6 H (0-4) % Baso % (Auto) 0.6 (0-2) % Lymph # (Auto) 1.5 (1.2-4.9) X10*3/uL [place] # (Auto) 0.4 (0.1-1.2) X10*3/uL Eos # (Auto) 0.2 (0.0-0.4) X10*3/uL Baso # (Auto) 0.0 (0.0-0.2) X10*3/uL Abs Immat Gran (auto) 0.01 (0.00-0.03) X10*3/uL Absolute Neuts (auto) 2.8 (2.0-8.3) x10*3/uL Absolute Nucleated RBC 0.000 (0.0-0.012) X10*3/uL Nucleated RBC % (auto) 0.0 (0.0-0.2) /100WBC Smear Tech's Comments VERIFIED Sodium 142 (135-145) mmol/L Potassium 3.9 (3.3-5.1) mmol/L Chloride 107 (96-108) mmol/L Carbon Dioxide 27 (22-29) mmol/L Anion Gap 12 (12-20) BUN 10 (9-16) mg/dL Creatinine 1.47 H (0.5-1.4) mg/dL Estim Creat Clear Calc 71.6 Estimated GFR 50 Random Glucose 159 H (60-115) mg/dL Calcium 8.5 (8.4-10.2) mg/dL Magnesium 1.7 (1.6-2.6) mg/dL Total Bilirubin 0.4 (0.0-1.0) mg/dL AST 23 (5-37) U/L ALT 23 (0-40) U/L Alkaline Phosphatase 97 (39-117) U/L Troponin I High Sens 5.0 (<3.5-35.0) ng/L Total Protein 6.3 L (6.5-8.0) g/dL Albumin 3.5 (3.5-5.0) g/dL TSH 1.82 (0.32-4.0) uIU/mL Discharge Plan Discharge Clinical Impression: Palpitations, Anxiety Patient Disposition: Home, Self-Care Instructions: Anxiety (ED) Additional Instructions: Your workup in the ER today was reassuring. This includes your EKG, blood work. I believe your symptoms today are related to anxiety. Continue taking your medications as prescribed. Follow-up with your primary doctor, return for new or worsening symptoms Prescriptions: No Action metformin 1,000 mg tablet 1,000 mg PO BID 90 Days Qty: 180 1RF escitalopram oxalate 20 mg tablet 20 mg PO QAM Qty: 90 1RF insulin glargine [Lantus Solostar U-100 Insulin] 100 unit/mL (3 mL) insulin pen 15 unit subcut DAILY Qty: 15 0RF ferrous sulfate 325 mg (65 mg iron) tablet 325 mg PO DAILY Qty: 90 0RF atorvastatin 40 mg tablet 40 mg PO DAILY Qty: 90 0RF omeprazole 40 mg capsule,delayed release(DR/EC) 40 mg PO DAILY Qty: 90 0RF hydroxyzine HCl 25 mg tablet 25 mg PO TID PRN (Reason: anxiety) Qty: 30 0RF albuterol sulfate [Ventolin HFA] 90 mcg/actuation HFA aerosol inhaler 2 puff inhalation Q4-6H PRN (Reason: for wheezing) Qty: 18 1RF tamsulosin [Flomax] 0.4 mg capsule 0.4 mg PO BEDTIME Qty: 7 0RF betamethasone dipropionate 0.05 % cream 1 appl topical DAILY cholecalciferol (vitamin D3) 50 mcg (2,000 unit) capsule 50 mcg PO DAILY olanzapine 5 mg Tablet 5 mg PO BID 30 Days Qty: 60 0RF thiamine HCl (vitamin B1) 100 mg tablet 100 mg PO BID losartan 25 mg tablet 25 mg PO DAILY Interventions: ED Discharge Assessment Last Done: 12/28/24 13:45 Discharge Date/Time: 12/28/24 13:46 Print Language: Ukrainian
[2024-12-28 11:55] LABS: Hematocrit 33.5 % (42.0-52.0); Hemoglobin 10.9 g/dl (14.0-18.0); Imm Gran Abs Auto 0.01 X10*3/uL (0.00-0.03); Imm Gran Pct Auto 0.2 % (0.0-0.4); Lymphocytes Absolute Auto 1.5 X10*3/uL (1.2-4.9); MANUAL DIFF FLAG SCAN; Mean Corpuscular HGB Conc 32.5 g/dl (31.0-36.0); Mean Corpuscular Hemoglobin 28.3 pg (27.0-33.0); Mean Corpuscular Volume 87.0 fL (80.0-98.0); NRBC Abs Auto 0.000 X10*3/uL (0.0-0.012); NRBC Pct Auto 0.0 /100WBC (0.0-0.2); Platelet Count 144 X10*3/uL (160-400); Red Blood Count 3.85 X10*6/uL (4.60-5.80); SCAN SMEAR FLAG 1; White Blood Count 5.0 X10*3/uL (4.8-10.8)
[2024-12-28 12:14] LABS: Alanine Aminotransferase 23 U/L (0-40); Albumin Level 3.5 g/dL (3.5-5.0); Alkaline Phosphatase 97 U/L (39-117); Anion Gap 12 (12-20); Aspartate Amino Transferase 23 U/L (5-37); Blood Urea Nitrogen 10 mg/dL (9-16); Calcium 8.5 mg/dL (8.4-10.2); Carbon Dioxide 27 mmol/L (22-29); Chloride 107 mmol/L (96-108); Creatinine Clr Calc Pharmacy 71.6; Estimated Glomerular Filt Rate 50; Magnesium 1.7 mg/dL (1.6-2.6); Potassium 3.9 mmol/L (3.3-5.1); Sodium 142 mmol/L (135-145); Total Protein 6.3 g/dL (6.5-8.0)
[2024-12-28 12:15] LABS: Troponin-I High Sensitivity 5.0 ng/L (<3.5-35.0)
--- OUTSIDE RECORDS SUMMARY | 2024-12-28 12:38 | XMS_ITS | Clinical Summary ---
Author Organization [facility] Address [address] [place] [address] Care Team Providers Care Silk Screen Printer Helper Name Role Phone Unavailable Primary Care Provider [...]
--- OUTSIDE RECORDS SUMMARY | 2024-12-28 12:38 | XMS_ITS | Patient Health Record ---
Author Organization [facility] Address [address] [place] [address] Care Team Providers Care Drier Tender Naphthalene Name Role Phone Fox Ku MD Primary Care Provider Briana Tashi Erwin Unavailable [phone] Alisha Moore Unavailable Unavailable Allergies No Known [...] Problem Status W/U Status Risk Notes Problem 271882494 Colon cancer screening (Z12.11) Active confirmed Problem 663910434 History of adenomatous polyp of colon (Z86.010) Active confirmed Problem Diverticular disease of colon (142150402) Diverticulosis of large intestine without perforation or abscess without bleeding (K57.30) Active confirmed Problem 013843776 Gastroesophageal reflux disease without esophagitis (K21.9) Active confirmed Problem 579957610361900 Preprocedural examination (Z01.818) Active confirmed Problem 31957838 Iron deficiency anemia, unspecified iron deficiency anemia type (D50.9) Active confirmed Plan Of Treatment Pending Test Test Name Order Date Pathology 07/13/2023 Future Test Test Name Order Date UPPER GI ENDOSCOPY 06/23/2017 COLONOSCOPY 06/23/2017 COLONOSCOPY 04/17/2023 Insurance Providers Payer Name Payer Address Payer Phone Subscriber Number Group Number Insured Name Patient Relationship to Insured Coverage Start Date Coverage End Date [facility] [address] [address] [place], [place] [id number] KIAN MAHMOOD Self - patient is the insured MEDICAID OF [facility] [address] [place] [address] [id number] KIAN MAHMOOD Self - patient is the [...] Date(Month/Year) Mass removed--Dr. Fields at [facility]-- Be nign , but had XRT 2008 Right inguinal hernia 1990 Ear tubes/Adenoids
--- OUTSIDE RECORDS SUMMARY | 2024-12-28 12:38 | XMS_ITS | Clinical Summary ---
Author Organization [facility] Address [address] [place] [address] Care Team Providers Care Cocoa Bean Cleaner Name Role Phone Bon Arvizu MD Primary Care Provider [phone]- [phone] Allergies No known active allergies Medications Ventolin [...] Visit [facility] [address] [place] [address] Tashi Bonner MD [address] [facility] [address] [place] [id number] Health Maintenance Due Date Last Done Comments [...] Exam 09/25/2022 Influenza Vaccine (#1) [address] [place] [address] [place] [address] Care Teams Cocoa Bean Cleaner Relationship Specialty Start Date End Date Bon Arvizu MD [address] [place] [address] PCP - General Internal Medicine 06/04/22
[2024-12-28 13:45] VITALS: BP 132/70; PULSE 69; RESP 18; TEMP 36.2; O2SAT 94
== END 2024-12-28 13:46 | disposition home or self-care (01) ==
PROVIDERS: Physician Assistant; Emergency Provider Emergency Medicine; PCP Internal Medicine
DX: R00.2 Palpitations (principal); F41.9 Anxiety disorder, unspecified; J44.9 Chronic obstructive pulmonary disease, unspecified; N18.9 Chronic kidney disease, unspecified; E11.9 Type 2 diabetes mellitus without complications; F32.9 Major depressive disorder, single episode, unspecified; Z79.899 Other long term (current) drug therapy
CPT/HCPCS: 36415; 80053; 83735; 84443; 84484; 85025; 93005; 99283

== ENCOUNTER → 2024-12-28 10:51 | Outpatient (BNV) | payer OTHER, SELFPAY | PROVIDERS: Emergency Provider Emergency Medicine; PCP Internal Medicine; Visit Provider Internal Medicine Cardiovascular Disease | DX: R00.2 Palpitations (principal) | CPT/HCPCS: 93010 ==

== ENCOUNTER 2024-12-30 12:38 | Outpatient (AMB) | payer OTHER, SELFPAY ==
--- OUTSIDE RECORDS SUMMARY | 2024-12-30 12:40 | XMS_ITS | Clinical Summary ---
Author Organization [facility] Address [address] [place] [address] [address] [place] [address] Care Team Providers Care Process Area Supervisor Name Role Phone Unavailable Primary Care Provider Unavailabl e Allergies No known active allergies Medications acetaminophen (Tylenol 8 Hour) 650 MG ER tablet Take 1 tablet (650 mg) by mouth every 8 (eight) hours if needed for mild pain. Do not crush, chew, or split. 20 tablet 10/24/2024 Active ibuprofen 400 MG tablet Take 1 tablet (400 mg) by mouth every 6 (six) hours if needed for moderate pain. 20 tablet 10/24/2024 Active Active Problems Problem Noted Date Diagnosed Date Dental abscess 10/24/2024 Pain, dental 10/24/2024 Encounters Date Type Department Care Team Description 10/24/2024 10:00 AM EDT Office Visit [facility] [address] [place] [address] Perez Romero DDS Dental abscess (Primary Dx); [...] Care Team (Late st Contact Info) Description 02/01/2025 10:00 AM EDT Office Visit [facility] [address] [place], [place] [phone] Perez Romero, DDS [address] [place], [place] [phone] Health Maintenance Due Date Last Done Comments CT Colonography 1970 Dental Prophylaxis 1970 Dental X-Ray: Bitewings [...] Dental X-Ray: Full Mouth 10/26/2027 10/24/2024, 05/13 Colonoscopy 07/12/2033 07/13/2023 Colorectal Cancer Screening 07/12/2033 DTaP/Tdap/Td Vaccines (3 - Td or Tdap) [...] Most Recently Relevant to Health Maintenance Insurance [facility] MEDICAID STAND ADULT
--- OUTSIDE RECORDS SUMMARY | 2024-12-30 12:40 | XMS_ITS | Clinical Summary ---
Author Organization [facility] Facility Address [address] [place] [address] Care Team Providers Care Supervisor Cooler Service Name Role Phone oBn Arvizu MD Primary Care Provider [phone]- [phone] Allergies No known active allergies Medications Ventolin [...] Visit [facility] [address] [place] [address] Tashi Bonner MD [address] [facility] [address] [place] [phone] Health Maintenance Due Date Last Done Comments [...] Exam 09/25/2022 Influenza Vaccine (#1) [address] [place] [address] [place] [address] Care Teams Supervisor Cooler Service Relationship Specialty Start Date End Date Bon Arvizu MD [address] [place] [address] PCP - General Internal Medicine 06/04/22
--- OUTSIDE RECORDS SUMMARY | 2024-12-30 12:40 | XMS_ITS | Clinical Summary ---
Author Organization [facility] Address [address] [place] [address] Care Team Providers Care Monotyper Name Role Phone Unavailable Primary Care Provider [...]
--- OUTSIDE RECORDS SUMMARY | 2024-12-30 12:41 | XMS_ITS | Patient Health Record ---
Author Organization [facility] Address [address] [place] [address] Care Team Providers Care Smoking Pipe Repairer Name Role Phone Fox Ku MD Primary Care Provider Briana Tashi Erwin Unavailable [phone] Alisha Moore Unavailable Unavailable Allergies No Known [...] Problem Status W/U Status Risk Notes Problem [id number] Colon cancer screening (Z12.11) Active confirmed Problem 771099604 History of adenomatous polyp of colon (Z86.010) Active confirmed Problem Diverticulosis o f large intestine without perforation or abscess without bleeding (K57.30) Active confirmed Problem 210103381 Gastroesophageal reflux disease without esophagitis (K21.9) Active confirmed Problem 385964535676789 Preprocedural examination (Z01.818) Active confirmed Problem 98141368 Iron deficiency anemia, unspecified iron deficiency anemia type (D50.9) Active confirmed Plan Of Treatment Pending Test Test Name Order Date Pathology 07/13/2023 Future Test Test Name Order Date UPPER GI ENDOSCOPY 06/23/2017 COLONOSCOPY 06/23/2017 COLONOSCOPY 04/17/2023 Insurance Providers Payer Name Payer Address Payer Phone Subscriber Number Group Number Insured Name Patient Relationship to Insured Coverage Start Date Coverage End Date [facility] [address] [address] [place], [place] [id number] KIAN MAHMOOD Self - patient is the insured MEDICAID OF [facility] [address] [place] [address] [id number] KIAN MAHMOOD Self - patient is the insured Medical (General) History Medical History History ICD Code IDDM Hypertension Heart murmur-Dr. Collins Asthma/COPD- Dr. Correa Pulmonary embolus in 2016--on Coumadin-- sees Dr. Dulala Lung mass--surgery in 2008 a s below, with XRT; biopsied in approx 2015 and benign--followed by Dr. Tino Cristobalies [place],CVA,renal disease GERD--upper endoscopy August of 2017 with [...] History Surgery Date(Month/Year) Mass removed--Dr. Fields at [facility]-- Be nign , but had XRT 2008 Right inguinal hernia 1990 Ear tubes/Adenoids
--- NOTE | 2024-12-30 13:05 | A.OFFPC_ITS ---
Vital Signs 12/30/24 13:06 Height 5 ft 8 in Weight 258 lb 8 oz BMI 39.3 BP 130/70 Blood Pressure Location Lt brachial Position Sitting Pulse 60 Pulse Source Pulse Oximeter Temp 96.8 F Temp Source Temporal Artery Scan Pulse Oximetry (%) 92 Oxygen Delivery Method Room Air Intake Visit Reasons: [facility] 12/21 Intake Note: Patient is here for hospital discharge follow up. Patient was discharged from [facility] on 12/21/24. Wire Stretcher Required: No Brim Presser: Not Required per policy Accompanied by: Self / Same As Patient Allergies pollen extracts (POLLEN) Allergy (Mild, Verified 12/30/24 13:06) RUNNY NOSE cat dander (CATS) Allergy (Unknown, Verified 12/30/24 13:06) UNKNOWN dog dander (DOGS) Allergy (Unknown, Verified 12/30/24 13:06) UNKNOWN mold (MOLD) Allergy (Unknown, Verified 12/30/24 13:06) UNKNOWN Tobacco use date assessed: 12/30/24 Dental Screening Dental Screen Date: 09/27/24 HPI HPI Comments History of Present Illness Details 54 y/o Male patient who presents to the clinic today for HDF. He was admitted at [facility] on 12/28 for an evaluation and treatment of Chest Pain and Anxiety. Prior to that he was admitted at [facility] on 11/16 - 12/21 following SI with PLan and Intent. Today reports still feeling Heart Palpitations but denies CP or SOB. Reports feeling very Anxious despite being on medications, I do not think my medicines are working . He had an appointment with his Theapist yesterday. Denies SA or SI. REPLACED BY [facility] Medical History Suicidal ideation Situational crisis Suicidal ideation Psychosis Chest pain Recurrent major depression Allergic rhinitis Insomnia Palpitations Vitamin D deficiency Chronic kidney disease, stage III (moderate) GERD without esophagitis Restrictive lung disease Obesity (BMI 30-39.9) Benign essential hypertension Pure hypercholesterolemia Diabetes mellitus Pulmonary emboli Chondrosarcoma Hyperlipidemia Chronic restrictive lung disease COPD (chronic obstructive pulmonary disease) Asthma Surgical History History of esophagogastroduodenoscopy (EGD) H/O colonoscopy History of inguinal hernia repair Hx of exploratory thoracotomy H/O tooth extraction Family History Father Hypertension Kidney failure, acute Mother Lung cancer Family/Other Diabetes Social History Household Members: None Housing: House Do you presently have visiting nurse or other home services: No Alcohol intake: former Patient Tobacco Use Status: Never used Tobacco e-Cigarette/Vaping Use: Never Used Second Hand Smoke Exposure: No service: No Current occupational status: unemployed Sexual orientation: Straight/Heterosexual Cognitive needs: No Hearing needs: No Vision needs: Yes (Glasses) Questionnaire Thrive Questionnaire Date Thrive assessed: 09/13/24 I am a: Patient What is your living situation today?: I have a steady place to live Within the past 12 months, did the food you bought not last and you didn't have the money to get more?: I choose not to answer this question Within the past 12 months, did you worry whether your food would run out before you got money to buy more?: I choose not to answer this question Do you have trouble paying for medicines?: I choose not to answer this question Do you have trouble getting transportation to medical appointments?: I choose not to answer this question Do you have trouble paying your heating and electricity bill?: I choose not to answer this question Do you have trouble taking care of your child, family member or friend?: I choose not to answer this question Do you have trouble with day-to-day activities such as bathing, preparing meals, shopping, managing finances, etc.?: I choose not to answer this question Are you currently unemployed and looking for a job?: Yes Are you interested in more education?: No Please select the resources that you would like help with: None Currently or been in a relationship where the following occur: I choose not to answer THRIVE Score: 0 CATIE-7 AMB Questionnaire CATIE-7 Date CATIE - 7 assessed: 09/13/24 Source: Developed by Drs. Tashi Michael, Laura Archer, Ambrosio Xie and colleagues, with an educational maría elena from [employer] Review of Systems Const All systems reviewed & are unremarkable except as noted in HPI and below Physical exam (Primary Care) Vital Signs: Last Vital Signs Temp 96.8 F 12/30/24 13:06 Pulse 60 12/30/24 13:06 BP 130/70 12/30/24 13:06 Pulse Ox 92 12/30/24 13:06 Oxygen Delivery Method Room Air 12/30/24 13:06 BMI result Body Mass Index 39.3 Tobacco/Smoking Status: Tobacco use Status Tobacco use date assessed 12/30/24 12/30/24 13:12 Patient Tobacco Use Status Never used Tobacco 12/30/24 13:12 e-Cigarette/Vaping Use Never Used 12/30/24 13:12 Thrive Assessment: Date of Thrive Assessment Date Thrive assessed 09/13/24 12/30/24 13:12 Currently or been in a relationship where the following occur: I choose not to answer Const General: no acute distress Nutritional Appearance: obese Orientation/consciousness: patient oriented x3 Resp Effort & Inspection: normal respiratory effort Auscultation: clear to auscultation bilaterally Cardio Heart sounds: S1 normal heart sound present and S2 normal heart sound present Neuro General: patient oriented x3, gait normal and moves all extremities Psych Speech and movement: Normal speech and movement present Coding Level of Care Code Est Pt Level 4 (71598) Diagnoses CATIE (generalized anxiety disorder) F41.1 Time Spent (min) 20 Assessment & Plan Assessment & Plan (1) CATIE (generalized anxiety disorder): Code(s): F41.1 - Generalized anxiety disorder Category: Medical Plan: Continue on medications as prescribed. Continue with mental health Therapy as scheduled F/U with PCP.
[2024-12-30 13:06] VITALS: BP 130/70; PULSE 60; TEMP 36; O2SAT 92; BMI 39.3
== END 2024-12-30 13:23 | disposition home or self-care (01) ==
LOC: HO.HMCH 12:39
PROVIDERS: PCP Internal Medicine; Visit Provider Nurse Practitioner Family
DX: F41.1 Generalized anxiety disorder (principal)

== ENCOUNTER → 2024-12-30 12:38 | Outpatient (BNVA) | payer OTHER, SELFPAY | PROVIDERS: PCP Internal Medicine; Visit Provider Nurse Practitioner Family | DX: F44.1 Dissociative fugue (principal); R07.9 Chest pain, unspecified | CPT/HCPCS: 99212 ==

== ENCOUNTER 2025-01-02 10:31 | Emergency (ER) | payer OTHER, SELFPAY ==
--- NOTE | ~2025-01-02 | XR_ITS ---
EXAMINATION: XR CHEST CLINICAL INFORMATION: chest pain COMPARISON: November 12, 2024 TECHNIQUE: 2 views of the chest were obtained. FINDINGS: There is cephalization of pulmonary vascularity. There are diffuse coarse interstitial markings. Pulmonary vessels are indistinct middle third and lower third left lung zone. Heart size is within normal limits. There are surgical clips in the posterior mediastinum anterior left of the midthoracic spine. There are trace bilateral pleural effusions thickening the fissures on the lateral view. Lucency left of midline and lower chest likely represents a small hiatal hernia, unchanged. XR/XR chest 2V IMPRESSION: Probable pulmonary vascular congestion with possible developing pneumonia in the left mid to lower lung. Suspected small hiatal hernia. Electronically signed by: Levi Carl MD 01/02/2025 11:38 AM EDT
--- NOTE | 2025-01-02 10:36 | ECG_ITS ---
Test Reason : CP Blood Pressure : */* mmHG Vent. Rate : 70 BPM Atrial Rate : 70 BPM P-R Int : 130 ms QRS Dur : 100 ms QT Int : 410 ms P-R-T Axes : 27 1 32 degrees QTcB Int : 442 ms Normal sinus rhythm Normal ECG When compared with ECG of 28-Dec-2024 10:51, No significant change was found Referred By: Generic ED Physician Electronically Signed By: BRIGITTE RASMUSSEN
[2025-01-02 10:37] VITALS: BP 177/67; PULSE 79; RESP 16; TEMP 37.4; O2SAT 94; BMI 39.5
--- NOTE | 2025-01-02 10:55 | ED.CHESTPAIN ---
HPI - Chest Pain General Chief Complaint: Chest Pain Stated Complaint: chest pain Time Seen by Provider: 01/02/25 10:54 Source: patient, RN notes reviewed and old records reviewed Mode of arrival: ambulatory Limitations: no limitations History of Present Illness ED Provider: Valdemar HPI narrative: Patient is a 54-year-old male with history of asthma, COPD, DM, HLD, HTN, GERD, CKD III, anxiety, CATIE, MDD presenting to the ED with complaint of chest pain and left arm numbness which began this morning. States he is unsure if his symptoms woke him from sleep or if they began after waking. States the pain is to his left anterior chest, has been constant, rates at 5/10. States he was feeling normal over the weekend. Denies any diaphoresis, nausea, vomiting. Complains of dyspnea with exertion but none at rest. Denies recent cough or fevers. MD complaint: chest pain Related Data Home Medications ?Medication ?Instructions ?Recorded ?Confirmed losartan 25 mg tablet 25 mg PO DAILY 09/13/24 11/14/24 betamethasone dipropionate 0.05 % 1 appl topical DAILY wound 10/12/24 11/14/24 topical cream cholecalciferol (vitamin D3) 50 50 mcg PO DAILY 10/12/24 11/14/24 mcg (2,000 unit) capsule thiamine HCl (vitamin B1) 100 mg 100 mg PO BID 11/14/24 11/14/24 tablet Previous Rx's ?Medication ?Instructions ?Recorded tamsulosin 0.4 mg capsule (Flomax) 0.4 mg PO BEDTIME #7 caps 06/28/24 metformin 1,000 mg tablet 1,000 mg PO BID 90 days #180 tabs 08/29/24 escitalopram oxalate 20 mg tablet 20 mg PO QAM #90 tabs 10/06/24 olanzapine 5 mg tablet 5 mg PO BID 30 days #60 tabs 10/19/24 ferrous sulfate 325 mg (65 mg 325 mg PO DAILY #90 tabs 10/27/24 iron) tablet insulin glargine 100 unit/mL (3 15 unit (0.15 mL) subcut DAILY #15 10/27/24 mL) subcutaneous pen (Lantus mL Solostar U-100 Insulin) atorvastatin 40 mg tablet 40 mg PO DAILY #90 tabs 12/08/24 omeprazole 40 mg capsule,delayed 40 mg PO DAILY #90 caps 12/08/24 release albuterol sulfate 90 mcg/actuation 2 puff inhalation Q4-6H PRN for 12/23/24 aerosol inhaler (Ventolin HFA) wheezing #18 ea hydroxyzine HCl 25 mg tablet 25 mg PO TID PRN anxiety #30 tabs 12/23/24 amoxicillin 875 mg-potassium 1 tab PO BID #14 tabs 01/02/25 clavulanate 125 mg tablet azithromycin 250 mg tablet See Rx Instructions PO .COMPLEX #6 01/02/25 tabs Allergies Allergy/AdvReac Type Severity Reaction Status Date / Time pollen extracts (POLLEN) Allergy Mild RUNNY NOSE Verified 01/02/25 10:41 cat dander (CATS) Allergy Unknown UNKNOWN Verified 01/02/25 10:41 dog dander (DOGS) Allergy Unknown UNKNOWN Verified 01/02/25 10:41 mold (MOLD) Allergy Unknown UNKNOWN Verified 01/02/25 10:41 Review of Systems Review of Systems: As per HPI Yes all other systems are reviewed and are negative Constitutional: Constitutional: Reports as per HPI PMFSH Past Medical History Medical History Suicidal ideation Situational crisis Suicidal ideation Psychosis Chest pain Recurrent major depression Allergic rhinitis Insomnia Palpitations Vitamin D deficiency Chronic kidney disease, stage III (moderate) GERD without esophagitis Restrictive lung disease Obesity (BMI 30-39.9) Benign essential hypertension Pure hypercholesterolemia Diabetes mellitus Pulmonary emboli Chondrosarcoma Hyperlipidemia Chronic restrictive lung disease COPD (chronic obstructive pulmonary disease) Asthma Surgical History History of esophagogastroduodenoscopy (EGD) H/O colonoscopy History of inguinal hernia repair Hx of exploratory thoracotomy H/O tooth extraction Family History Family History Father Hypertension Kidney failure, acute Mother Lung cancer Family/Other Diabetes Social History Social History Household Members: None Housing: House Do you presently have visiting nurse or other home services: No Alcohol intake: former Patient Tobacco Use Status: Never used Tobacco e-Cigarette/Vaping Use: Never Used Second Hand Smoke Exposure: No Advance Directives: Yes Advance Directives on File: Yes Advance Directives Date on File: 10/25/15 Do you have a plan to hurt others: No Plan service: No Current occupational status: unemployed Sexual orientation: Straight/Heterosexual Cognitive needs: No Hearing needs: No Vision needs: Yes (Glasses) Physical Exam Vital Signs: Vital Signs: Last Vital Signs Temp 99.4 F 01/02/25 10:37 Pulse 79 01/02/25 10:37 Resp 16 01/02/25 10:37 BP 177/67 H 01/02/25 10:37 Pulse Ox 94 01/02/25 10:37 O2 Del Method Room Air 01/02/25 10:37 BMI result Body Mass Index 39.5 Vital signs have been reviewed and appear to be correct. Blood pressure elevated. Heart rate normal. Respiratory rate normal. Temperature normal. Oxygen saturation normal. Const: General: cooperative, healthy appearing and no acute distress Orientation/consciousness: oriented to person, oriented to place, oriented to time and patient oriented x3 Limitations: no limitations HEENT: Head: Yes normocephalic and Yes atraumatic Ears: external ears normal General nose exam: Normal external nose present Face and sinus: Yes face symmetric Mouth: oropharynx normal and moist mucous membranes Throat: Yes uvula midline Eyes: Pupils: Equal, round and reactive pupils present Neck: Neck: Yes normal visual inspection, Yes no meningeal signs and Yes supple Resp: Effort & Inspection: normal respiratory effort and able to speak in complete sentences Auscultation: clear to auscultation bilaterally Cardio: Rate: regular rate Rhythm: regular rhythm Heart sounds: S1 normal heart sound present and S2 normal heart sound present GI: Palpation (GI): Soft to palpation and nontender Auscultation: normoactive bowel sounds : General: Yes no CVA tenderness Back/Spine/Pelvis: Back: no CVA tenderness Skin: General skin exam: elasticity normal and turgor normal Neuro: General: oriented to person, oriented to place, oriented to time, patient oriented x3, gait normal, tone normal, moves all extremities, Normal light touch and pain sensation, no meningeal signs, no focal motor deficits and CN's II-XI intact bilaterally Cranial nerves: Yes Equal, round and reactive pupils present Cognition (Neuro): normal cognition Motor exam (neuro): 5/5 motor strength present throughout, Pronator motor function not present, Normal motor muscle tone present throughout and Motor abnormalities not present Extrem: General: Yes full ROM, Yes no pedal edema and Yes no calf tenderness Psych: Mental Status: mental status grossly normal Affect: normal affect Thought process: Normal thought process present NIH Stroke Scale Internal: Initial- Upon Arrival Time: 11:14 Level of Consciousness: Alert Level of Consciousness Questions: Answers both questions correctly Level of Consciousness Commands: Performs both tasks correctly Best Gaze: Normal Visual: No visual loss Facial Palsy: Normal Motor Arm (Right): No drift Motor Arm (Left): No drift Motor Leg (Right): No drift Motor Leg (Left): No drift Limb Ataxia: Absent Sensory: Normal Best Language: No aphasia Dysarthia: Normal Extinction and Inattention: No abnormality Score: 0 Medical Decision Making Medical Decision Making [facility] Narrative: Patient is a 54-year-old male with history of asthma, COPD, DM, HLD, HTN, GERD, CKD III, anxiety, CATIE, MDD presenting to the ED with complaint of chest pain and left arm numbness which began this morning. On exam patient is awake, A+Ox3, BP elevated, VS otherwise WNL, afebrile, normal neurological exam without focal deficits, physical exam findings as above. Given reported symptoms and physical exam findings, initial differential includes but is not limited to ACS, GERD, anxiety, musculoskeletal pain. Unlikely PE, Wells score 0. Less likely pneumonia or pneumothorax, but will obtain chest xray. No left arm deficit noted on my physical exam. Labs notable for mild anemia which appears chronic, slightly elevated creatinine, troponin of 7.1, repeat without delta at 8.1. EKG shows normal sinus rhythm. X-ray chest notable for developing pneumonia in left mid to lower lung. My interpretation is in agreement with the radiologist's interpretation. Results discussed with patient and all questions answered. Will treat for CAP with augmentin and azithromycin. Advised follow up with PCP to ensure resolution of PNA. Return precautions discussed. Patient verbalized understanding of and agreement with plan. Differential Diagnosis Differential Diagnoses: The differential diagnosis associated with the presentation includes as per [facility] Admission/Observation Consideration of admission/observation: Escalation of care including admission/observation considered Patient would have been admitted to the hospital had their clinical presentation warranted hospital admission. Lab Data [facility] Lab Attestation statement: I reviewed the patient's lab results. as per [facility] 01/02/25 10:55 01/02/25 10:55 Labs: Lab Results 01/02/25 01/02/25 Range/Units 10:55 12:09 WBC 4.2 L (4.8-10.8) X10*3/uL RBC 4.14 L (4.60-5.80) X10*6/uL Hgb 11.4 L (14.0-18.0) g/dl Hct 36.1 L (42.0-52.0) % MCV 87.2 (80.0-98.0) fL MCH 27.5 (27.0-33.0) pg MCHC 31.6 (31.0-36.0) g/dl RDW 18.7 H (11.0-16.0) % Plt Count 196 D (160-400) X10*3/uL MPV 10.1 (9.4-12.4) fL Immature Gran % (Auto) 0.5 H (0.0-0.4) % Neut % (Auto) 61.2 (45-73) % Lymph % (Auto) 23.1 (20-40) % Wise % (Auto) 9.0 (2-11) % Eos % (Auto) 5.5 H (0-4) % Baso % (Auto) 0.7 (0-2) % Lymph # (Auto) 1.0 L (1.2-4.9) X10*3/uL Wise # (Auto) 0.4 (0.1-1.2) X10*3/uL Eos # (Auto) 0.2 (0.0-0.4) X10*3/uL Baso # (Auto) 0.0 (0.0-0.2) X10*3/uL Abs Immat Gran (auto) 0.02 (0.00-0.03) X10*3/uL Absolute Neuts (auto) 2.6 (2.0-8.3) x10*3/uL Absolute Nucleated RBC 0.000 (0.0-0.012) X10*3/uL Nucleated RBC % (auto) 0.0 (0.0-0.2) /100WBC PT 11.6 (10.9-12.4) SEC INR 1.0 (0.9-1.1) Sodium 143 (135-145) mmol/L Potassium 4.2 (3.3-5.1) mmol/L Chloride 104 (96-108) mmol/L Carbon Dioxide 31 H (22-29) mmol/L Anion Gap 12 (12-20) BUN 10 (9-16) mg/dL Creatinine 1.52 H (0.5-1.4) mg/dL Estim Creat Clear Calc 69.3 Estimated GFR 48 Random Glucose 143 H (60-115) mg/dL Calcium 9.0 (8.4-10.2) mg/dL Troponin I High Sens 7.1 8.1 (<3.5-35.0) ng/L B-Natriuretic Peptide 89 (<100) pg/mL Independent Interpretation I performed an independent interpretation of an: EKG (normal sinus rhythm, rate 70bpm, normal [place] interval and QTc) and Plain X-Ray Interpretation: X-ray chest notable for developing pneumonia in left mid to lower lung. Radiology Impression Discussion of test interpretation with radiology: I have reviewed the radiologist's reading. Radiologist Impression: XR/XR chest 2V IMPRESSION: Probable pulmonary vascular congestion with possible developing pneumonia in the left mid to lower lung. Suspected small hiatal hernia. External Record Review External record reviewed: Inpatient record, Office record and Outpatient record Prescription Management I considered prescription management with: Antibiotic Discharge Plan Discharge Clinical Impression: Community acquired pneumonia Qualifiers: Laterality: left Lung location: lower lobe of lung Qualified Code(s): J18.9 - Pneumonia, unspecified organism Patient Disposition: Home, Self-Care Instructions: Community Acquired Pneumonia (DC) Additional Instructions: You were evaluated in the emergency department today for cough and shortness of breath. Your chest x-ray shows evidence of pneumonia. You are being treated with antibiotics, please complete the full courses as prescribed. Please call your primary care provider within the next 2-3 days to schedule a follow-up appointment. You will need a repeat chest x-ray to confirm resolution of your pneumonia. Return to the emergency department if you develop worsening shortness of breath, chest pain, palpitations, fever 100.4? F or greater, or any other concerning symptoms. Prescriptions: New azithromycin 250 mg tablet See Rx Instructions .ROUTE .COMPLEX Qty: 6 0RF Rx Instructions: For 250 mg dose pack: take 500 mg today (day 1), then 250 mg for 4 days (days 2-5) amoxicillin-pot clavulanate 875-125 mg tablet 1 tab PO BID Qty: 14 0RF No Action metformin 1,000 mg tablet 1,000 mg PO BID 90 Days Qty: 180 1RF escitalopram oxalate 20 mg tablet 20 mg PO QAM Qty: 90 1RF insulin glargine [Lantus Solostar U-100 Insulin] 100 unit/mL (3 mL) insulin pen 15 unit subcut DAILY Qty: 15 0RF ferrous sulfate 325 mg (65 mg iron) tablet 325 mg PO DAILY Qty: 90 0RF atorvastatin 40 mg tablet 40 mg PO DAILY Qty: 90 0RF omeprazole 40 mg capsule,delayed release(DR/EC) 40 mg PO DAILY Qty: 90 0RF hydroxyzine HCl 25 mg tablet 25 mg PO TID PRN (Reason: anxiety) Qty: 30 0RF albuterol sulfate [Ventolin HFA] 90 mcg/actuation HFA aerosol inhaler 2 puff inhalation Q4-6H PRN (Reason: for wheezing) Qty: 18 1RF tamsulosin [Flomax] 0.4 mg capsule 0.4 mg PO BEDTIME Qty: 7 0RF betamethasone dipropionate 0.05 % cream 1 appl topical DAILY cholecalciferol (vitamin D3) 50 mcg (2,000 unit) capsule 50 mcg PO DAILY olanzapine 5 mg Tablet 5 mg PO BID 30 Days Qty: 60 0RF thiamine HCl (vitamin B1) 100 mg tablet 100 mg PO BID losartan 25 mg tablet 25 mg PO DAILY Print Language: Austrian
[2025-01-02 11:01] LABS: MANUAL DIFF FLAG NO
[2025-01-02 11:04] LABS: Hematocrit 36.1 % (42.0-52.0); Hemoglobin 11.4 g/dl (14.0-18.0); Imm Gran Abs Auto 0.02 X10*3/uL (0.00-0.03); Imm Gran Pct Auto 0.5 % (0.0-0.4); Lymphocytes Absolute Auto 1.0 X10*3/uL (1.2-4.9); Mean Corpuscular HGB Conc 31.6 g/dl (31.0-36.0); Mean Corpuscular Hemoglobin 27.5 pg (27.0-33.0); Mean Corpuscular Volume 87.2 fL (80.0-98.0); NRBC Abs Auto 0.000 X10*3/uL (0.0-0.012); NRBC Pct Auto 0.0 /100WBC (0.0-0.2); Platelet Count 196 X10*3/uL (160-400); Red Blood Count 4.14 X10*6/uL (4.60-5.80); White Blood Count 4.2 X10*3/uL (4.8-10.8)
--- NOTE | 2025-01-02 11:06 | PC.NURSE ---
Spoke with lab. BNP being processed as an add on lab. 20g IV access to left AC, labs drawn and sent for analysis. Results pending. GALDINO Aldrich at bedside. Patient states that he speaks with mumbling speech at baseline. Answers questions appropriately. Care ongoing by this RN.
[2025-01-02 11:09] LABS: INTERNATIONAL NORM RATIO 1.0 (0.9-1.1); Prothrombin Time 11.6 SEC (10.9-12.4)
[2025-01-02 11:19] LABS: Anion Gap 12 (12-20); Blood Urea Nitrogen 10 mg/dL (9-16); Calcium 9.0 mg/dL (8.4-10.2); Carbon Dioxide 31 mmol/L (22-29); Chloride 104 mmol/L (96-108); Creatinine Clr Calc Pharmacy 69.3; Estimated Glomerular Filt Rate 48; Potassium 4.2 mmol/L (3.3-5.1); Sodium 143 mmol/L (135-145)
--- NOTE | 2025-01-02 11:22 | PC.NURSE ---
Patient away for xray at this time. Labs pending. Care ongoing by this RN.
[2025-01-02 11:27] LABS: Troponin-I High Sensitivity 7.1 ng/L (<3.5-35.0)
[2025-01-02 11:42] LABS: B Type Natriuretic Peptide 89 pg/mL (<100)
--- OUTSIDE RECORDS SUMMARY | 2025-01-02 12:02 | XMS_ITS | Clinical Summary ---
Author Organization [facility] Address [address] [place] [address] [address] [place] [address] Care Team Providers Care High Reach Operator Name Role Phone Unavailable Primary Care Provider [...] 10:00 AM EDT Office Visit [facility] [address] [place] [address] Perez Romero DDS Dental abscess (Primary Dx); [...] Description 02/01/2025 10:00 AM EDT Office Visit [facility] [address] [place], [place] [id number] Perez Romero, DDS [address] [place], [place] [phone] Health Maintenance Due Date Last Done Comments [...] Most Recently Relevant to Health Maintenance Insurance [facility] MEDICAID STAND ADULT
--- OUTSIDE RECORDS SUMMARY | 2025-01-02 12:02 | XMS_ITS | Clinical Summary ---
Author Organization [facility] Address [address] [place] [address] Care Team Providers Care Deboning Team Leader Name Role Phone Unavailable Primary Care Provider [...]
--- OUTSIDE RECORDS SUMMARY | 2025-01-02 12:02 | XMS_ITS | Clinical Summary ---
Author Organization [facility] Address [address] [place] [address] Care Team Providers Care Testing Consultant Name Role Phone oBn Arvizu MD Primary Care Provider [phone]- [phone] Allergies No known active allergies Medications Ventolin [...] Visit [facility] [address] [place] [phone] Tashi Bonner MD [address] [facility] [address] [place] [phone] Health Maintenance Due Date Last Done Comments [...] Exam 09/25/2022 Influenza Vaccine (#1) [address] [place] [address] [place] [address] Care Teams Testing Consultant Relationship Specialty Start Date End Date Bon Arvizu MD [address] [place] [address] PCP - General Internal Medicine 06/04/22
--- NOTE | 2025-01-02 12:12 | PC.NURSE ---
Confirmed timing regarding order for repeat troponin level with GALDINO Aldrich. Per provider, provider does want repeat to be drawn now. Specimen collected and sent for analysis. Results pending.
[2025-01-02 12:33] LABS: Troponin-I High Sensitivity 8.1 ng/L (<3.5-35.0)
[2025-01-02 13:23] VITALS: BP 177/67; PULSE 79; RESP 16; TEMP 37.4; O2SAT 94
== END 2025-01-02 13:23 | disposition home or self-care (01) ==
PROVIDERS: Registered Nurse Emergency; Emergency Provider Emergency Medicine; PCP Internal Medicine
DX: J18.9 Pneumonia, unspecified organism (principal); R07.89 Other chest pain; R06.02 Shortness of breath; E11.9 Type 2 diabetes mellitus without complications; I10 Essential (primary) hypertension; Z79.4 Long term (current) use of insulin; Z79.899 Other long term (current) drug therapy
CPT/HCPCS: 36415; 71046; 80048; 83880; 84484; 85025; 85610; 93005; 99283; 99284

== ENCOUNTER → 2025-01-02 10:36 | Outpatient (BNV) | payer OTHER, SELFPAY | PROVIDERS: Emergency Provider Emergency Medicine; PCP Internal Medicine; Visit Provider Internal Medicine | DX: R07.9 Chest pain, unspecified (principal) | CPT/HCPCS: 93010 ==

== ENCOUNTER → 2025-01-02 10:58 | Outpatient (BNV) | payer OTHER, SELFPAY | PROVIDERS: Emergency Provider Emergency Medicine; PCP Internal Medicine; Visit Provider Radiology Diagnostic Radiology | DX: R07.9 Chest pain, unspecified (principal) | CPT/HCPCS: 71046 ==

== ENCOUNTER 2025-01-03 08:59 | Outpatient (REF) | payer OTHER, SELFPAY ==
--- OUTSIDE RECORDS SUMMARY | 2023-07-13 07:00 | XMS_ITS ---
Author Organization [facility] Address [address] [place] [address] Care Team Providers Care Canal Superintendent Name Role Phone Fox Ku MD Primary Care Provider Tashi Bruno Unavailable [phone] Alisha Moore Unavailable Unavailable REASON FOR VISIT screening,hx polyps Problems Problem Type SNOMED Code ICD Code Onset Dates Problem Status W/U Status Risk Notes Problem Diverticulosis o f large intestine without perforation or abscess without bleeding (K57.30) Active confirmed Encounters Encounter Location Date Provider Diagnosis [facility] Out[facility] [address] [place] [phone] 07/13/2023 Tashi Currie Encounter for scre ening colonoscopy Z12.11 ; Colon polyps K63.5 ; Diverticulosis of large intestine without perforation or abscess without bleeding K57.30 and Other hemorrhoids K64.8 Assessments Encounter Date Diagnosis (ICD Code) Assessment Notes Treatment Notes Treatment Clinical Notes Section Notes 07/13/2023 Encounter for screening colonoscopy (ICD-10 - Z12.11) 07/13/2023 Colon polyps (ICD-10 - K63.5) 07/13/2023 Diverticulosis of large intestine without perforation or abscess without bleeding (ICD-10 - K57.30) 07/13/2023 Other hemorrhoids (ICD-10 - K64.8) Plan Of Treatment No Information Progress Notes * KIAN MAHMOOD ODOB: [birth year] (54 yo M)Acc No.[id number]:07/13/2023 COLON WITH MAC Patient: Benjie KIAN AGRAWAL Provider: Aubrie Currie MD :1970 A ge:52 Y S ex:Male Date:07/13/2023 Address:[address] [place] [address] , [id number] Pcp:Fox Ku MD Subjective: * Chief Complaints: * 1 . Screening,hx polyps. * Medical History: Objective: * Vitals: Assessment: * Assessment: 1. E ncounter for screening colonoscopy - Z12.11 (Primary) 2 . C olon polyps - K63.5 3 . D iverticulosis of large intestine without perforation or abscess without bleeding - K57.30 4 . O ther hemorrhoids - K64.8 Plan: * Treatment: * Procedure Codes: 4 5380 COLONOSCOPY AND BIOPSY, Modifiers: 33 * * The named appointment provid er may or may not be the originator of this progress note, and it is not deemed complete until electronically signed by the appointment provider. Sign off status: Pending * Provider: Aubrie Currie MD Date: 0 07/13/2023 Generated for Chilo terrazas/Mariia/Kavyaitting on: 0 01/03/2025 09:20 AM EDT
--- OUTSIDE RECORDS SUMMARY | 2025-01-03 09:19 | XMS_ITS | Clinical Summary ---
Author Organization [facility] Address [address] [place] [address] Care Team Providers Care Wind Operations Manager Name Role Phone Unavailable Primary Care [...]
--- OUTSIDE RECORDS SUMMARY | 2025-01-03 09:20 | XMS_ITS | Patient Health Record ---
Author Organization [facility] Address [address] [place] [address] Care Team Providers Care Methods Examiner Name Role Phone Fox Ku MD Primary Care Provider Briana Tashi Erwin Unavailable [phone] Alisha Moore Unavailable Unavailable Allergies No Known [...] Problem Status W/U Status Risk Notes Problem 549602667 Colon cancer screening (Z12.11) Active confirmed Problem 824834271 History of adenomatous polyp of colon (Z86.010) Active confirmed Problem Diverticulosis o f large intestine without perforation or abscess without bleeding (K57.30) Active confirmed Problem 650611702 Gastroesophageal reflux disease without esophagitis (K21.9) Active confirmed Problem 250062224145469 Preprocedural examination (Z01.818) Active confirmed Problem 18621587 Iron deficiency anemia, unspecified iron deficiency anemia type (D50.9) Active confirmed Plan Of Treatment Pending Test Test Name Order Date Pathology 07/13/2023 Future Test Test Name Order Date UPPER GI ENDOSCOPY 06/23/2017 COLONOSCOPY 06/23/2017 COLONOSCOPY 04/17/2023 Insurance Providers Payer Name Payer Address Payer Phone Subscriber Number Group Number Insured Name Patient Relationship to Insured Coverage Start Date Coverage End Date [facility] [address] [address] [place], [place] [id number] KIAN MAHMOOD Self - patient is the insured MEDICAID OF [facility] [address] [place] [address] [id number] KIAN MAHMOOD Self - patient is the insured Medical (General) History Medical History History ICD Code IDDM Hypertension Heart murmur-Dr. Collins Asthma/COPD- Dr. Correa Pulmonary embolus in 2016--on Coumadin-- sees Dr. Dulala Lung mass--surgery in 2008 a s below, with XRT; biopsied in approx 2015 and benign--followed by Dr. Tino Cristobalies AL,CVA,renal disease GERD--upper endoscopy August of 2017 [...] History Surgery Date(Month/Year) Mass removed--Dr. Fields at [facility]-- Be nign , but had XRT 2008 Right inguinal hernia 1990 Ear tubes/Adenoids
--- OUTSIDE RECORDS SUMMARY | 2025-01-03 09:20 | XMS_ITS | Encounter Summary ---
Author Organization [facility] Address [address] [place] [address] Care Team Providers Care Bag Tester Name Role Phone Unavailable Primary Care Provider Unavailabl e Encounter Details Date Type Department Care Team (Late st Contact Info) Description 12/23/2021 Scanned Document [facility] [address] [place] [id number] Gastroenterology, Scan Social History Tobacco Use Types [...]
--- OUTSIDE RECORDS SUMMARY | 2025-01-03 09:20 | XMS_ITS | Clinical Summary ---
Author Organization [facility] Address [address] [place] [address] [address] [place] [address] Care Team Providers Care Regional Truck Driver Name Role Phone Unavailable Primary Care [...] Description 10/24/2024 10:00 AM EDT Office Visit [facility] [address] [place] [address] Perez Romero DDS Dental abscess (Primary Dx); [...] Description 02/01/2025 10:00 AM EDT Office Visit [facility] [address] [place], [place] [phone] Perez Romero, DDS [address] [place], [place] [phone] Health Maintenance Due Date Last Done Comments [...] Most Recently Relevant to Health Maintenance Insurance [facility] MEDICAID STAND ADULT
--- OUTSIDE RECORDS SUMMARY | 2025-01-03 09:20 | XMS_ITS | Clinical Summary ---
Author Organization [facility] Address [address] [place] [address] Care Team Providers Care Hand Tufter Name Role Phone Bon Arvizu MD Primary Care Provider [phone] Allergies No known active allergies Medications Ventolin [...] Visit [facility] [address] [place] [address] Tashi Bonner MD [address] [facility] [address] [place] [phone] Health Maintenance Due Date Last Done Comments [...] Exam 09/25/2022 Influenza Vaccine (#1) [address] [place] [address] [place] [address] Care Teams Hand Tufter Relationship Specialty Start Date End Date Bon Arvizu MD [address] [place] [address] PCP - General Internal Medicine 06/04/22
[2025-01-03 09:41] LABS: MANUAL DIFF FLAG NO
[2025-01-03 10:03] LABS: Hematocrit 33.2 % (42.0-52.0); Hemoglobin 10.6 g/dl (14.0-18.0); Imm Gran Abs Auto 0.02 X10*3/uL (0.00-0.03); Imm Gran Pct Auto 0.5 % (0.0-0.4); Lymphocytes Absolute Auto 0.8 X10*3/uL (1.2-4.9); Mean Corpuscular HGB Conc 31.9 g/dl (31.0-36.0); Mean Corpuscular Hemoglobin 27.8 pg (27.0-33.0); Mean Corpuscular Volume 87.1 fL (80.0-98.0); NRBC Abs Auto 0.000 X10*3/uL (0.0-0.012); NRBC Pct Auto 0.0 /100WBC (0.0-0.2); Platelet Count 197 X10*3/uL (160-400); Red Blood Count 3.81 X10*6/uL (4.60-5.80); White Blood Count 3.9 X10*3/uL (4.8-10.8)
[2025-01-03 10:10] LABS: Hemoglobin A1C 146.9212 umol/L; Total Hemoglobin (HGBA1C) 2867.1522 umol/L
[2025-01-03 10:47] LABS: Appearance Urine Clear; Glucose Urine UA Negative (Negative); PH >= 9.0 (5.0-9.0); Specific Gravity - Urine 1.010 (1.005-1.025); UMIC TRIGGER UA YES
[2025-01-03 10:51] LABS: Parathyroid Hormone Intact 51.4 pg/mL (8.7-77.1)
[2025-01-03 11:10] LABS: Anion Gap 12 (12-20); Blood Urea Nitrogen 9 mg/dL (9-16); Calcium 8.8 mg/dL (8.4-10.2); Carbon Dioxide 29 mmol/L (22-29); Chloride 105 mmol/L (96-108); Estimated Glomerular Filt Rate 46; Ferritin 39 ng/mL (20-250); Iron 50 mcg/dL (45-160); Magnesium 1.5 mg/dL (1.6-2.6); Percent Iron Saturation 22 % (15-50); Potassium 3.8 mmol/L (3.3-5.1); Sodium 142 mmol/L (135-145); Total Iron Binding Capacity 230 mcg/dL (228-428); Unsaturated Iron Binding 180 ug/dL; Uric Acid 8.0 mg/dL (3.4-7.0)
[2025-01-03 11:36] LABS: Microalbum/Creatinine Ratio Ur 108.1 ug/mg cr (<30); Protein/Creatinine Ratio, Ur 0.24 (<0.2); Total Protein Urine Random 18 mg/dL (<12)
[2025-01-10 09:04] LABS: eGFR (Cystatin C) 30
== END 2025-01-03 09:00 | disposition home or self-care (01) ==
LOC: HO.LAB 08:59
PROVIDERS: PCP Internal Medicine; Visit Provider Internal Medicine
DX: E11.22 Type 2 diabetes mellitus with diabetic chronic kidney disease (principal); N18.31 Chronic kidney disease, stage 3a
CPT/HCPCS: 36415; 80048; 81001; 82043; 82306; 82570; 82610; 82728; 83036; 83540; 83735; 83970; 84100; 84156; 84550; 85025

== ENCOUNTER 2025-01-03 10:03 | Emergency (ER) | payer OTHER, SELFPAY ==
--- NOTE | 2025-01-03 10:08 | ECG_ITS ---
Test Reason : DIZZINESS Blood Pressure : */* mmHG Vent. Rate : 68 BPM Atrial Rate : 68 BPM P-R Int : 132 ms QRS Dur : 102 ms QT Int : 438 ms P-R-T Axes : 23 1 28 degrees QTcB Int : 465 ms Normal sinus rhythm Minimal voltage criteria for LVH, may be normal variant ( R in aVL ) Borderline ECG When compared with ECG of 02-Jan-2025 10:36, No significant change was found Referred By: Generic ED Physician Electronically Signed By: BRIGITTE RASMUSSEN
[2025-01-03 10:41] VITALS: BP 157/70; PULSE 64; RESP 18; TEMP 36.8; O2SAT 93; BMI 39.5
[2025-01-03 10:52] LABS: Glucose, Whole Blood 146 mg/dL (60-115)
[2025-01-03 12:26] VITALS: BP 161/73; PULSE 65; RESP 18; TEMP 36.7; O2SAT 94
[2025-01-03 12:43] LABS: Appearance Urine Clear; Glucose Urine UA Negative (Negative); PH >= 9.0 (5.0-9.0); Specific Gravity - Urine 1.010 (1.005-1.025)
--- NOTE | 2025-01-03 13:19 | ED.GENADULT ---
HPI - General Adult General Chief complaint: Dizziness Stated complaint: Dizziness Time Seen by Provider: 01/03/25 12:25 Source: patient, RN notes reviewed and old records reviewed Mode of arrival: ambulatory Limitations: no limitations History of Present Illness ED Provider: Waqar HPI narrative: 54 year old male with past medical history significant for asthma, COPD, diabetes, hyperlipidemia hypertension, GERD, chronic kidney disease, depression, anxiety presents for evaluation of dizziness. Patient was diagnosed with pneumonia yesterday in the emergency department, he was discharged with azithromycin and Albuterol. He was having follow up labs drawn this morning. While getting his labs drawn he felt dizzy and lightheaded. He did not have any chest pain, Patient denies any fevers, chills, cough The patient reports that he has had similar episode 1 time in the past with blood draw He has no other complaints or concerns at this time Related Data Home Medications ?Medication ?Instructions ?Recorded ?Confirmed losartan 25 mg tablet 25 mg PO DAILY 09/13/24 11/14/24 betamethasone dipropionate 0.05 % 1 appl topical DAILY wound 10/12/24 11/14/24 topical cream cholecalciferol (vitamin D3) 50 50 mcg PO DAILY 10/12/24 11/14/24 mcg (2,000 unit) capsule thiamine HCl (vitamin B1) 100 mg 100 mg PO BID 11/14/24 11/14/24 tablet Previous Rx's ?Medication ?Instructions ?Recorded tamsulosin 0.4 mg capsule (Flomax) 0.4 mg PO BEDTIME #7 caps 06/28/24 metformin 1,000 mg tablet 1,000 mg PO BID 90 days #180 tabs 08/29/24 escitalopram oxalate 20 mg tablet 20 mg PO QAM #90 tabs 10/06/24 olanzapine 5 mg tablet 5 mg PO BID 30 days #60 tabs 10/19/24 ferrous sulfate 325 mg (65 mg 325 mg PO DAILY #90 tabs 10/27/24 iron) tablet insulin glargine 100 unit/mL (3 15 unit (0.15 mL) subcut DAILY #15 10/27/24 mL) subcutaneous pen (Lantus mL Solostar U-100 Insulin) atorvastatin 40 mg tablet 40 mg PO DAILY #90 tabs 12/08/24 omeprazole 40 mg capsule,delayed 40 mg PO DAILY #90 caps 12/08/24 release albuterol sulfate 90 mcg/actuation 2 puff inhalation Q4-6H PRN for 12/23/24 aerosol inhaler (Ventolin HFA) wheezing #18 ea hydroxyzine HCl 25 mg tablet 25 mg PO TID PRN anxiety #30 tabs 12/23/24 amoxicillin 875 mg-potassium 1 tab PO BID #14 tabs 01/02/25 clavulanate 125 mg tablet azithromycin 250 mg tablet See Rx Instructions PO .COMPLEX #6 01/02/25 tabs Allergies Allergy/AdvReac Type Severity Reaction Status Date / Time pollen extracts (POLLEN) Allergy Mild RUNNY NOSE Verified 01/03/25 10:46 cat dander (CATS) Allergy Unknown UNKNOWN Verified 01/03/25 10:46 dog dander (DOGS) Allergy Unknown UNKNOWN Verified 01/03/25 10:46 mold (MOLD) Allergy Unknown UNKNOWN Verified 01/03/25 10:46 Review of Systems Constitutional: Constitutional: Denies body ache(s), Denies chills, Denies fever(s) and Reports malaise Eyes: Eyes: Denies blurry vision ENT: Denies vertigo and Reports dizziness Cardiovascular: Cardiovascular: Denies chest pain, Denies chest pain at rest, Denies chest pain with activity, Denies dyspnea and Denies dyspnea on exertion Respiratory: Respiratory: Denies cough, Denies dyspnea and Denies dyspnea on exertion Gastrointestinal: Gastrointestinal: Denies abdominal pain, Denies nausea and Denies vomiting Musculoskeletal: Musculoskeletal: Denies back pain Integumentary/Breasts: Skin/Breast: Denies rash Neurologic: Denies vertigo and Reports dizziness Psychiatric: Psychiatric: Denies anxiety [facility] Past Medical History Medical History Suicidal ideation Situational crisis Suicidal ideation Psychosis Chest pain Recurrent major depression Allergic rhinitis Insomnia Palpitations Vitamin D deficiency Chronic kidney disease, stage III (moderate) GERD without esophagitis Restrictive lung disease Obesity (BMI 30-39.9) Benign essential hypertension Pure hypercholesterolemia Diabetes mellitus Pulmonary emboli Chondrosarcoma Hyperlipidemia Chronic restrictive lung disease COPD (chronic obstructive pulmonary disease) Asthma Surgical History History of esophagogastroduodenoscopy (EGD) H/O colonoscopy History of inguinal hernia repair Hx of exploratory thoracotomy H/O tooth extraction Family History Family History Father Hypertension Kidney failure, acute Mother Lung cancer Family/Other Diabetes Social History Social History Household Members: None Housing: House Do you presently have visiting nurse or other home services: No Alcohol intake: former Patient Tobacco Use Status: Never used Tobacco Smoked in Last 30 Days: No e-Cigarette/Vaping Use: Never Used Second Hand Smoke Exposure: No Use of substances other than those prescribed or required for medical reasons: No Advance Directives: Yes Advance Directives on File: Yes Advance Directives Date on File: 10/25/15 service: No Current occupational status: unemployed Sexual orientation: Straight/Heterosexual Cognitive needs: No Hearing needs: No Vision needs: Yes (Glasses) Physical Exam ED Vital Signs: Vital Signs - 24 hr 01/03/25 10:41 01/03/25 12:26 Temperature 98.3 F 98.1 F Pulse Rate 64 65 Respiratory Rate 18 18 Blood Pressure 157/70 H 161/73 H Pulse Oximetry 93 94 Oxygen Delivery Method Room Air Room Air BMI result Body Mass Index 39.5 Const General: healthy appearing, comfortable, no acute distress, alert and awake Nutritional Appearance: well nourished Orientation/consciousness: patient oriented x3 HENMT Head: Yes normocephalic and Yes atraumatic Eyes Eyelids: Yes eyelids normal Conjunctivae: conjunctivae normal Sclerae: sclerae normal Corneas: corneas normal Pupils: Equal, round and reactive pupils present EOM: EOMs intact bilaterally Neck Neck: Yes full ROM Resp Effort & Inspection: normal respiratory effort, able to speak in complete sentences and not labored Cardio Rate: regular rate Rhythm: regular rhythm GI Inspection: No distended Palpation (GI): Soft to palpation, not firm, nontender, no guarding and not rigid Skin General skin exam: elasticity normal Neuro General: patient oriented x3 Cranial nerves: Yes Equal, round and reactive pupils present and Yes Bilaterally intact EOM present Cognition (Neuro): normal cognition Extrem Other: Moving all extremities well without any obvious deformities Medical Decision Making Medical Decision Making MDM Narrative: 54-year-old male past medical history as above presents for evaluation of dizziness after having his labs drawn this morning. He was diagnosed with pneumonia yesterday. He is not hypoxic, no evidence of sepsis. He is afebrile, no leukocytosis. The patient does have a mild anemia that appears stable, this is a normocytic anemia. No significant chemistry abnormalities warranting intervention Differential Diagnosis Differential Diagnoses: The differential diagnosis associated with the presentation includes Vasovagal syncope Upper respiratory infection Pneumonia TL Lab Data Labs: Lab Results 01/03/25 01/03/25 Range/Units 10:48 12:33 POC Glucose 146 H (60-115) mg/dL Urine Color Yellow Urine Appearance Clear Urine pH >= 9.0 (5.0-9.0) Ur Specific [place] 1.010 (1.005-1.025) Urine Protein Trace (Neg-Trace) mg/dL Urine Glucose (UA) Negative (Negative) mg/dL Urine Ketones Negative (Negative) mg/dL Urine Blood Negative (Negative) Urine Nitrite Negative (Negative) Ur Leukocyte Esterase Negative (Negative) Independent Interpretation I performed an independent interpretation of an: EKG (Normal sinus rhythm with a rate of [address] segment changes) Discharge Plan Discharge Clinical Impression: Dizziness Patient Disposition: Home, Self-Care Instructions: Dizziness (ED) Additional Instructions: I reviewed your blood work drawn earlier today and did not see any significant abnormalities to explain your dizziness. Your EKG was reassuring. I recommend finishing your antibiotics. Hydrate well. Follow-up with your primary doctor and return for new or worsening symptoms Prescriptions: No Action metformin 1,000 mg tablet 1,000 mg PO BID 90 Days Qty: 180 1RF escitalopram oxalate 20 mg tablet 20 mg PO QAM Qty: 90 1RF insulin glargine [Lantus Solostar U-100 Insulin] 100 unit/mL (3 mL) insulin pen 15 unit subcut DAILY Qty: 15 0RF ferrous sulfate 325 mg (65 mg iron) tablet 325 mg PO DAILY Qty: 90 0RF atorvastatin 40 mg tablet 40 mg PO DAILY Qty: 90 0RF omeprazole 40 mg capsule,delayed release(DR/EC) 40 mg PO DAILY Qty: 90 0RF hydroxyzine HCl 25 mg tablet 25 mg PO TID PRN (Reason: anxiety) Qty: 30 0RF albuterol sulfate [Ventolin HFA] 90 mcg/actuation HFA aerosol inhaler 2 puff inhalation Q4-6H PRN (Reason: for wheezing) Qty: 18 1RF tamsulosin [Flomax] 0.4 mg capsule 0.4 mg PO BEDTIME Qty: 7 0RF betamethasone dipropionate 0.05 % cream 1 appl topical DAILY cholecalciferol (vitamin D3) 50 mcg (2,000 unit) capsule 50 mcg PO DAILY olanzapine 5 mg Tablet 5 mg PO BID 30 Days Qty: 60 0RF thiamine HCl (vitamin B1) 100 mg tablet 100 mg PO BID azithromycin 250 mg tablet See Rx Instructions .ROUTE .COMPLEX Qty: 6 0RF Rx Instructions: For 250 mg dose pack: take 500 mg today (day 1), then 250 mg for 4 days (days 2-5) amoxicillin-pot clavulanate 875-125 mg tablet 1 tab PO BID Qty: 14 0RF losartan 25 mg tablet 25 mg PO DAILY Interventions: ED Discharge Assessment Last Done: 01/03/25 13:37 Print Language: Lithuanian
[2025-01-03 13:37] VITALS: BP 161/73; PULSE 65; RESP 18; TEMP 36.7; O2SAT 94
== END 2025-01-03 13:41 | disposition home or self-care (01) ==
PROVIDERS: Emergency Provider Emergency Medicine; PCP Internal Medicine
DX: R42 Dizziness and giddiness (principal); J44.9 Chronic obstructive pulmonary disease, unspecified; I12.9 Hypertensive chronic kidney disease with stage 1 through stage 4 chronic kidney disease, or unspecified chronic kidney disease; E11.22 Type 2 diabetes mellitus with diabetic chronic kidney disease; N18.30 Chronic kidney disease, stage 3 unspecified; Z79.899 Other long term (current) drug therapy
CPT/HCPCS: 81003; 82947; 93005; 99283; 99285

== ENCOUNTER → 2025-01-03 10:08 | Outpatient (BNV) | payer OTHER, SELFPAY | PROVIDERS: Emergency Provider Emergency Medicine; PCP Internal Medicine; Visit Provider Internal Medicine | DX: R07.9 Chest pain, unspecified (principal) | CPT/HCPCS: 93010 ==

== ENCOUNTER 2025-01-06 11:52 | Emergency (ER) | payer OTHER, SELFPAY ==
--- OUTSIDE RECORDS SUMMARY | 2023-07-13 07:00 | XMS_ITS ---
Author Organization [facility] Address [address] [place] [address] Care Team Providers Care Brake Specialist Name Role Phone Fox Ku MD Primary Care Provider Tashi Bruno Unavailable [phone] Alisha Moore Unavailable Unavailable REASON FOR VISIT screening,hx polyps Problems Problem Type SNOMED Code ICD Code Onset Dates Problem Status W/U Status Risk Notes Problem Diverticulosis o f large intestine without perforation or abscess without bleeding (K57.30) Active confirmed Encounters Encounter Location Date Provider Diagnosis [facility] [address] [place] [phone] 07/13/2023 Tashi Currie Encounter for scre ening [...] KIAN MAHMOOD ODOB: [birth year] (54 yo M)Acc No.[id number]:07/13/2023 COLON WITH MAC Patient: Benjie KIAN AGRAWAL Provider: Aubrie Currie MD :1970 A ge:52 Y S ex:Male Date:07/13/2023 Address:[address] [place] [address] , [id number] Pcp:Fox Ku MD Subjective: * Chief Complaints: [...] 07/13/2023 Generated for Chilo terrazas/Mariia/Kavyaitting on: 0 01/06/2025 12:59 PM EDT
[2025-01-06 12:22] VITALS: BP 149/97; PULSE 70; RESP 16; TEMP 36.5; O2SAT 97; BMI 38.8
--- NOTE | 2025-01-06 12:22 | ED.GENADULT ---
HPI - General Adult General Chief complaint: Nausea/Vomiting/Diarrhea Stated complaint: Vomiting, diarrhea Time Seen by Provider: 01/06/25 12:32 Source: patient, RN notes reviewed and old records reviewed Mode of arrival: ambulatory Limitations: no limitations History of Present Illness ED Provider: Nilesh Bhagat PA-C HPI narrative: 54-year-old male with medical history of asthma, COPD, diabetes, hyperlipidemia hypertension, GERD, chronic kidney disease, depression, anxiety presents to ED due to 2 days of nausea, diarrhea after starting azithromycin and augmentin for community aquired pneumonia on 01/02. Patient reports approximately 5 episodes a day of watery diarrhea. Patient states he has been able to tolerate oral hydration and eating things like chips and crackers but vomits if he eats things that arent junk food . Patient states he has been compliant on antibiotic therapy and has 2 days left of augmentin. Denies chest pain, sob, abdominal pain, black/tarry stool MD complaint: nausea, diarrhea Related Data Home Medications ?Medication ?Instructions ?Recorded ?Confirmed losartan 25 mg tablet 25 mg PO DAILY 09/13/24 11/14/24 betamethasone dipropionate 0.05 % 1 appl topical DAILY wound 10/12/24 11/14/24 topical cream cholecalciferol (vitamin D3) 50 50 mcg PO DAILY 10/12/24 11/14/24 mcg (2,000 unit) capsule thiamine HCl (vitamin B1) 100 mg 100 mg PO BID 11/14/24 11/14/24 tablet Previous Rx's ?Medication ?Instructions ?Recorded metformin 1,000 mg tablet 1,000 mg PO BID 90 days #180 tabs 08/29/24 escitalopram oxalate 20 mg tablet 20 mg PO QAM #90 tabs 10/06/24 olanzapine 5 mg tablet 5 mg PO BID 30 days #60 tabs 10/19/24 insulin glargine 100 unit/mL (3 15 unit (0.15 mL) subcut DAILY #15 10/27/24 mL) subcutaneous pen (Lantus mL Solostar U-100 Insulin) albuterol sulfate 90 mcg/actuation 2 puff inhalation Q4-6H PRN for 12/23/24 aerosol inhaler (Ventolin HFA) wheezing #18 ea hydroxyzine HCl 25 mg tablet 25 mg PO TID PRN anxiety #30 tabs 08/15/25 amoxicillin 875 mg-potassium 1 tab PO BID #14 tabs 01/02/25 clavulanate 125 mg tablet azithromycin 250 mg tablet See Rx Instructions PO .COMPLEX #6 01/02/25 tabs atorvastatin 40 mg tablet 40 mg PO DAILY #90 tabs 01/04/25 ferrous sulfate 325 mg (65 mg 325 mg PO DAILY #90 tabs 01/04/25 iron) tablet omeprazole 40 mg capsule,delayed 40 mg PO DAILY #90 caps 01/04/25 release tamsulosin 0.4 mg capsule 0.4 mg PO BEDTIME #90 caps 01/04/25 ondansetron HCl 4 mg tablet 4 mg PO Q8H PRN nausea and 01/06/25 vomiting #12 tabs Allergies Allergy/AdvReac Type Severity Reaction Status Date / Time pollen extracts (POLLEN) Allergy Mild RUNNY NOSE Verified 01/06/25 12:23 cat dander (CATS) Allergy Unknown UNKNOWN Verified 01/06/25 12:23 dog dander (DOGS) Allergy Unknown UNKNOWN Verified 01/06/25 12:23 mold (MOLD) Allergy Unknown UNKNOWN Verified 01/06/25 12:23 Review of Systems Review of Systems: CONST: Negative for fever, body aches and chills. HENT: Negative for neck pain/stiffness, headache, congestion, sore throat, swelling. EYES: Negative for discharge/pain or vision changes. RESP: Negative for cough/hemoptysis and shortness of breath. CV: Negative chest pain, difficulty breathing, palpitations. ABD: Negative pain, nausea, vomiting. POS nausea : Negative increase frequency, dysuria, blood in urine or stool. POS diarrhea MUSC: Negative for muscle aches, edema. SKIN: Negative rash, lesions/sores. NEURO: Negative headache, dizziness, weakness. Yes all other systems are reviewed and are negative [facility] [place] Past Medical History Attestation statement: The following information was validated with the patient. Source: old records reviewed and nursing notes reviewed Medical History Suicidal ideation Situational crisis Suicidal ideation Psychosis Chest pain Recurrent major depression Allergic rhinitis Insomnia Palpitations Vitamin D deficiency Chronic kidney disease, stage III (moderate) GERD without esophagitis Restrictive lung disease Obesity (BMI 30-39.9) Benign essential hypertension Pure hypercholesterolemia Diabetes mellitus Pulmonary emboli Chondrosarcoma Hyperlipidemia Chronic restrictive lung disease COPD (chronic obstructive pulmonary disease) Asthma Surgical History History of esophagogastroduodenoscopy (EGD) H/O colonoscopy History of inguinal hernia repair Hx of exploratory thoracotomy H/O tooth extraction Family History Family History Father Hypertension Kidney failure, acute Mother Lung cancer Family/Other Diabetes Social History Social History Household Members: None Housing: House Do you presently have visiting nurse or other home services: No Alcohol intake: former Patient Tobacco Use Status: Never used Tobacco e-Cigarette/Vaping Use: Never Used Second Hand Smoke Exposure: No Advance Directives: Yes Advance Directives on File: Yes Advance Directives Date on File: 10/25/15 Do you have a plan to hurt others: No Plan service: No Current occupational status: unemployed Sexual orientation: Straight/Heterosexual Cognitive needs: No Hearing needs: No Vision needs: Yes (Glasses) Physical Exam ED Vital Signs: Vital Signs - 24 hr 01/06/25 12:22 01/06/25 13:55 01/06/25 14:00 Temperature 97.7 F 98.1 F 98.5 F Pulse Rate 70 74 94 Respiratory Rate 16 14 16 Blood Pressure 149/97 H 143/90 H 137/74 Pulse Oximetry 97 100 100 Oxygen Delivery Method Room Air Room Air Room Air 01/06/25 15:23 01/06/25 16:00 Temperature 98.4 F 98.1 F Pulse Rate 81 88 Respiratory Rate 14 16 Blood Pressure 130/71 140/91 H Pulse Oximetry 100 100 Oxygen Delivery Method Room Air Room Air BMI result Body Mass Index 38.8 GENERAL APPEARANCE: ?AxOx4, no acute distress. HEENT: ?NC, AT. MMM. EOMI, clear conjunctiva, oropharynx clear. NECK: ?Supple without lymphadenopathy.? No stiffness or restricted ROM. HEART:? Normal rate and regular rhythm, normal S1/S2, no m/r/g LUNGS:? CTAB, moving air well. No crackles or wheezes are heard. ABDOMEN: ?Soft, nontender, nondistended with good bowel sounds heard. BACK: No CVAT, no obvious deformity. EXTREMITIES: ?Without cyanosis, clubbing or edema. NEUROLOGICAL: ?Grossly nonfocal. Alert and oriented, moving all 4 extremities. Observed to ambulate with normal gait. Skin: ?Warm and dry without any rash. Course Course Course Narrative: RME, this is a rapid medical exam performed by Butch Zavaleta please refer to primary provider for complete H&P- 54-year-old male past medical history significant for depression, anxiety, COPD, vertigo, diabetes presents for evaluation of nausea and vomiting. He was seen here on 01/02/2025 and diagnosed with pneumonia. He was discharged with azithromycin and Augmentin. He reports nausea, vomiting and diarrhea starting this morning. Denies any abdominal pain. Does endorse palpitations. Plan for labs and an EKG Medications Administered Discontinued Medications Generic Name Dose Route Start Last Admin Trade Name Freq PRN Reason Stop Dose Admin Lactated Ringer's 1,000 mls @ 999 mls/hr 01/06/25 13:11 01/06/25 13:30 Lr IV 01/06/25 14:11 999 mls/hr .Q1H1M ONE Administration Ondansetron HCl 4 mg 01/06/25 13:11 01/06/25 13:30 Ondansetron Hcl 4 Mg/2 Ml Vial IVPUSH 01/06/25 13:12 4 mg ONCE ONE Administration Medical Decision Making Medical Decision Making MDM Narrative: 54-year-old male with medical history of asthma, COPD, diabetes, hyperlipidemia hypertension, GERD, chronic kidney disease, depression, anxiety presents to ED due to 2 days of nausea, diarrhea after starting azithromycin and augmentin for community aquired pneumonia on 01/02. Patient reports approximately 5 episodes a day of watery diarrhea. Patient states he has been able to tolerate oral hydration and eating things like chips and crackers but vomits if he eats things that arent junk food . Patient states he has been compliant on antibiotic therapy and has 2 days left of augmentin. VS on initial observation-BP 149/97, pulse rate of 70, respiratory rate of 16, afebrile with oral temperature of 97.7?, O2 saturation 97% on room air. On physical exam abdomen is soft, nontender, no rigidity, no guarding, negative Bauer's sign, no rebound tenderness hyperactive bowel sounds in all 4 quadrants- less likely acute abdomen Labs without leukocytosis/leukopenia, H and H stable, no evidence of electrolyte abnormality, creatinine elevated at 1.46 however patient with CKD and on chart review this is around patient's baseline. At this time I believe patient's GI upset is due to Augmentin therapy. Patient without recent travel, no sick contacts, no abdominal pain/nausea/vomiting or diarrhea before starting antibiotic therapy for pneumonia. Patient states pneumonia symptoms are steadily improving. We will medicate patient with IV fluids, 4 mg IV Zofran while in the department today. I counseled patient to make sure he is taking his antibiotics with food as this will help with GI upset. I counseled patient to follow up with his primary care doctor if diarrhea does not resolve after 5 days of the last dose of Augmentin. Differential Diagnosis Differential Diagnoses: The differential diagnosis associated with the presentation includes Acute abdomen Viral illness Side effects from antibiotics Admission/Observation Consideration of admission/observation: Escalation of care including admission/observation considered Lab Data MDM Lab Attestation statement: I reviewed the patient's lab results. 01/06/25 12:33 01/06/25 12:33 Labs: Lab Results 01/06/25 01/06/25 Range/Units 12:33 13:23 WBC 4.8 (4.8-10.8) X10*3/uL RBC 3.76 L (4.60-5.80) X10*6/uL Hgb 10.7 L (14.0-18.0) g/dl Hct 32.3 L (42.0-52.0) % MCV 85.9 (80.0-98.0) fL MCH 28.5 (27.0-33.0) pg MCHC 33.1 (31.0-36.0) g/dl RDW 19.3 H (11.0-16.0) % Plt Count 188 (160-400) X10*3/uL MPV 9.6 (9.4-12.4) fL Immature Gran % (Auto) 0.4 (0.0-0.4) % Neut % (Auto) 62.4 (45-73) % Lymph % (Auto) 24.6 (20-40) % [place] % (Auto) 8.4 (2-11) % Eos % (Auto) 3.8 (0-4) % Baso % (Auto) 0.4 (0-2) % Lymph # (Auto) 1.2 (1.2-4.9) X10*3/uL [place] # (Auto) 0.4 (0.1-1.2) X10*3/uL Eos # (Auto) 0.2 (0.0-0.4) X10*3/uL Baso # (Auto) 0.0 (0.0-0.2) X10*3/uL Abs Immat Gran (auto) 0.02 (0.00-0.03) X10*3/uL Absolute Neuts (auto) 3.0 (2.0-8.3) x10*3/uL Absolute Nucleated RBC 0.000 (0.0-0.012) X10*3/uL Nucleated RBC % (auto) 0.0 (0.0-0.2) /100WBC Sodium 144 (135-145) mmol/L Potassium 4.1 (3.3-5.1) mmol/L Chloride 107 (96-108) mmol/L Carbon Dioxide 30 H (22-29) mmol/L Anion Gap 11 L (12-20) BUN 9 (9-16) mg/dL Creatinine 1.46 H (0.5-1.4) mg/dL Estim Creat Clear Calc 71.4 Estimated GFR 50 Random Glucose 137 H (60-115) mg/dL Calcium 8.8 (8.4-10.2) mg/dL Total Bilirubin 0.4 (0.0-1.0) mg/dL AST 27 (5-37) U/L ALT 18 (0-40) U/L Alkaline Phosphatase 95 (39-117) U/L Total Protein 6.8 (6.5-8.0) g/dL Albumin 3.7 (3.5-5.0) g/dL Lipase 20 (8-78) U/L Urine Color Yellow Urine Appearance Clear Urine pH >= 9.0 (5.0-9.0) Ur Specific [place] 1.015 (1.005-1.025) Urine Protein Trace (Neg-Trace) mg/dL Urine Glucose (UA) Negative (Negative) mg/dL Urine Ketones Negative (Negative) mg/dL Urine Blood Negative (Negative) Urine Nitrite Negative (Negative) Ur Leukocyte Esterase Negative (Negative) Urine RBC 0-2 (0-2) /HPF Urine WBC 0-5 (0-5) /HPF Ur Squamous Epith Cells 0-2 (0-2) /HPF Urine Bacteria None Seen (None Seen) Hyaline Casts 0-2 (0-2) /LPF Independent Interpretation I performed an independent interpretation of an: EKG Interpretation: I personally interpreted the EKG which reveals normal sinus rhythm, no ST-elevation/depression, T-wave abnormality Vent. Rate : 65 BPM Atrial Rate : 65 BPM P-R Int : 138 ms QRS Dur : 100 ms QT Int : 420 ms P-R-T Axes : 32 -2 0 degrees QTcB Int : 436 ms Normal sinus rhythm Minimal voltage criteria for LVH, may be normal variant ( R in aVL ) Borderline ECG When compared with ECG of 03-Jan-2025 10:22, No significant change was found External Record Review External record reviewed: Inpatient record, Office record and Outpatient record Chronic Conditions Patient?s care impacted by: Diabetes, Hypertension and Other (Asthma, COPD, HLD, GERD, CKD, depression, anxiety) Social Determinants Patient?s care significantly limited by Social Determinants of Health including: Other Social Determinant of Health Discharge Plan Discharge Clinical Impression: Medication side effect Patient Disposition: Home, Self-Care Additional Instructions: You were evaluated in the ED today due to nausea, vomiting, diarrhea that began after initiating Augmentin therapy for pneumonia. Your lab work was reassuring as there was no indication of infection or electrolyte abnormality. Your EKG showed normal sinus rhythm. Your physical exam was reassuring as you did not have any abdominal tenderness to palpation, no recent travel or sick contact exposure. At this time I believe your GI upset is due to Augmentin therapy. This is an antibiotic that is notorious for causing GI upset. You only have 2 days left of this antibiotic, I encourage you to finish his antibiotic and take with food as this will help with stomach upset. I will prescribe you 4 days of Zofran that you can take to manage your nausea at home. I encourage you to get plenty of oral hydration, eat a bland diet and advance as tolerated. Please follow up with your primary care doctor to ensure improvement and resolution of symptoms. Please return to the emergency department if you experience fevers over 100.4?, worsening abdominal pain, worsening nausea and vomiting, blood in the diarrhea, persistent diarrhea, chest pain, shortness of breath, or any new/worsening/concerning symptoms. Prescriptions: New ondansetron HCl 4 mg tablet 4 mg PO Q8H PRN (Reason: nausea and vomiting) Qty: 12 0RF No Action metformin 1,000 mg tablet 1,000 mg PO BID 90 Days Qty: 180 1RF escitalopram oxalate 20 mg tablet 20 mg PO QAM Qty: 90 1RF insulin glargine [Lantus Solostar U-100 Insulin] 100 unit/mL (3 mL) insulin pen 15 unit subcut DAILY Qty: 15 0RF hydroxyzine HCl 25 mg tablet 25 mg PO TID PRN (Reason: anxiety) Qty: 30 0RF albuterol sulfate [Ventolin HFA] 90 mcg/actuation HFA aerosol inhaler 2 puff inhalation Q4-6H PRN (Reason: for wheezing) Qty: 18 1RF ferrous sulfate 325 mg (65 mg iron) tablet 325 mg PO DAILY Qty: 90 0RF omeprazole 40 mg capsule,delayed release(DR/EC) 40 mg PO DAILY Qty: 90 0RF atorvastatin 40 mg tablet 40 mg PO DAILY Qty: 90 0RF tamsulosin 0.4 mg capsule 0.4 mg PO BEDTIME Qty: 90 0RF betamethasone dipropionate 0.05 % cream 1 appl topical DAILY cholecalciferol (vitamin D3) 50 mcg (2,000 unit) capsule 50 mcg PO DAILY olanzapine 5 mg Tablet 5 mg PO BID 30 Days Qty: 60 0RF thiamine HCl (vitamin B1) 100 mg tablet 100 mg PO BID azithromycin 250 mg tablet See Rx Instructions .ROUTE .COMPLEX Qty: 6 0RF Rx Instructions: For 250 mg dose pack: take 500 mg today (day 1), then 250 mg for 4 days (days 2-5) amoxicillin-pot clavulanate 875-125 mg tablet 1 tab PO BID Qty: 14 0RF losartan 25 mg tablet 25 mg PO DAILY Print Language: Tajik
[2025-01-06 12:38] LABS: MANUAL DIFF FLAG NO
[2025-01-06 12:42] LABS: Hematocrit 32.3 % (42.0-52.0); Hemoglobin 10.7 g/dl (14.0-18.0); Imm Gran Abs Auto 0.02 X10*3/uL (0.00-0.03); Imm Gran Pct Auto 0.4 % (0.0-0.4); Lymphocytes Absolute Auto 1.2 X10*3/uL (1.2-4.9); Mean Corpuscular HGB Conc 33.1 g/dl (31.0-36.0); Mean Corpuscular Hemoglobin 28.5 pg (27.0-33.0); Mean Corpuscular Volume 85.9 fL (80.0-98.0); NRBC Abs Auto 0.000 X10*3/uL (0.0-0.012); NRBC Pct Auto 0.0 /100WBC (0.0-0.2); Platelet Count 188 X10*3/uL (160-400); Red Blood Count 3.76 X10*6/uL (4.60-5.80); White Blood Count 4.8 X10*3/uL (4.8-10.8)
[2025-01-06 12:54] LABS: Alanine Aminotransferase 18 U/L (0-40); Albumin Level 3.7 g/dL (3.5-5.0); Alkaline Phosphatase 95 U/L (39-117); Anion Gap 11 (12-20); Aspartate Amino Transferase 27 U/L (5-37); Blood Urea Nitrogen 9 mg/dL (9-16); Calcium 8.8 mg/dL (8.4-10.2); Carbon Dioxide 30 mmol/L (22-29); Chloride 107 mmol/L (96-108); Creatinine Clr Calc Pharmacy 71.4; Estimated Glomerular Filt Rate 50; Lipase 20 U/L (8-78); Potassium 4.1 mmol/L (3.3-5.1); Sodium 144 mmol/L (135-145); Total Protein 6.8 g/dL (6.5-8.0)
--- OUTSIDE RECORDS SUMMARY | 2025-01-06 13:00 | XMS_ITS | Encounter Summary ---
Author Organization Formerly [facility] Address [address] [place] [id number] Care Team Providers Care Heater Room Helper Name Role Phone Unavailable Primary Care Provider Unavailabl e Encounter Details Date Type Department Care Team (Late st Contact Info) Description 12/23/2021 Scanned Document [facility] [address] [place] [id number] Gastroenterology, Scan Social History Tobacco Use Types [...]
--- OUTSIDE RECORDS SUMMARY | 2025-01-06 13:00 | XMS_ITS | Clinical Summary ---
Author Organization [facility] Facility Address [address] [place] [address] Care Team Providers Care Assistant Warehouse Manager Name Role Phone Bon Arvizu MD Primary Care Provider +1- [phone] Allergies No known active allergies Medications Ventolin [...] Encounters Date Type Department Care Team Description 01/03/2025 Orders Only [facility] [address] [address] Tashi Bonner MD from Last 3 Months Family History Medical [...] Visit [facility] [address] [place] [address] Tashi Bonner MD [address] [address] 02/04/2025 Orders Only [facility] [address] [place] [id number] Tashi Bonner MD [address] [address] Stage 3b chronic kidney disease (HCC) Health Maintenance Due Date Last Done Comments Hepatitis B Vaccine (1 of 3 - 19+ 3-dose series) 09/03 Pneumococcal Vaccine: 50+ Years (1 of 2 - PCV) 990 Colorectal Cancer Screening: Annual FOBT 09/04/2019 Colorectal Cancer Screening: Sigmoidoscopy 09/04/2019 Diabetes: Ophthalmology Exam 09/25/2022 Diabetes: Pedal Pulse Checked 09/25/2022 Diabetes: Sensory Foot Exam 09/25/2022 Diabetes: Visual Foot Exam 09/25/2022 Influenza Vaccine (#1) 2025 Diabetes: Hemoglobin A1C 04/05/2025 01/03/2025 Colorectal Cancer Screening: Colonoscopy 07/12/2033 07/13/2023 Procedures Procedure Name Priority Date/Time Associated Diagnosis Comments PROTEIN / CREATININE RATIO, URINE Routine 01/03/2025 9:57 AM EDT ALBUMIN, URINE, RANDOM Routine 01/03/2025 9:57 AM EDT URINALYSIS WITH MICROSCOPIC Routine 01/03/2025 9:57 AM EDT VITAMIN D 25 HYDROXY Routine 01/03/2025 9:39 AM EDT FERRITIN Routine 01/03/2025 9:39 AM EDT IRON PANEL (FE, TIBC, TSAT) Routine 01/03/2025 9:39 AM EDT MAGNESIUM Routine 01/03/2025 9:39 AM EDT PHOSPHATE ( PHOSPHORUS) Routine 01/03/2025 9:39 AM EDT URIC ACID Routine 01/03/2025 9:39 AM EDT BASIC METABOLIC PANEL Routine 01/03/2025 9:39 AM EDT PTH, INTACT (HC) Routine 01/03/2025 9:39 AM EDT HEMOGLOBIN A1C Routine 01/03/2025 9:39 AM EDT CBC AND DIFFERENTIAL Routine 01/03/2025 9:39 AM EDT from Last 3 Months Results * (ABNORMAL) Protein, Total, Random Urine w/Creatinine (Protein/Creat Ratio) (01/03/2025 9:57 AM EDT) Protein Urine Random 18(H) <12 mg/dL See order comments Protein/Creati nine Ratio, Urine 0.24(H) <0.2 See order comments Comment: The spot urine protein:creatinine ratio may increase to 0.3 during normal . 01/03/2025 9:57 AM EDT 01/03/2025 9:57 AM EDT us Tashi Bonner MD LAB URINE ORDERABLES Final Result Performing Organization Address [facility] de Phone Number [place] See order comments [place] [address] * (ABNORMAL) Albumin, urine, random (01/03/2025 9:57 AM EDT) Creatinine, Urine 75.81 mg/dL Se e order comments Urine Microalbumin 82.0 mg/L See order comments Microalbumin/Crea tinine Ratio 108.1(H) <30 ug/mg cr See order comments Comment: Albumin/Creatinine Ratio Reference Ranges: Normal: < 30 ug/mg creatinine Microalbuminuria: 30 - 300 ug/mg creatinine Clinical Albuminuria: > 300 ug/mg creatinine 01/03/2025 9:57 AM EDT 01/03/2025 9:57 AM EDT us Tashi Bonner MD LAB URINE ORDERABLES Final Result Performing Organization Address [facility] Co de Phone Number [facility] See order comments [place] [address] * (ABNORMAL) Urinalysis with microscopic (01/03/2025 9:57 AM EDT) Color Urine Yellow See orde r comments Appearance Urine Clear See order comments pH Urine >=9.0 5.0 - 9.0 See order comments Glucose Urine Negative Negative mg/dL See order comments Blood, Urine Negative Negative See ord er comments Specific [place] Urine 1.010 1.005 - 1.025 See order comments Protein Urine 30 (1+)(A) Neg-Trace mg/dL See order comments Ketones, Urine Negative Negative mg/dL See order comments Nitrite, Urine Negative Negative See o rder comments Leukocyte Esterase Urine Negative Negative See order comments RBC, Urine 0-2 0 - 2 /HPF See orde r comments WBC 0-5 0 - 5 /HPF See order comments Squamous Epithelial, Urine 0-2 0 - 2 /HPF See order comments Bacteria, Urine None Seen None Seen See order comments Hyaline Casts, Urine 0-2 0 - 2 /LPF See order comments 01/03/2025 9:57 AM EDT 01/03/2025 9:57 AM EDT Tashi Bonner MD LAB URINE ORDERABLES Final Result Performing Organization Address [facility]/ZIP Co de Phone Number [place] See order comments [place] [address] * PTH, Intact (01/03/2025 9:39 AM EDT) Parathyroid Hormone, Intact 51.4 8.7 - 77.1 pg/mL See order comments 01/03/2025 9:39 AM EDT 01/03/2025 9:39 AM EDT Tashi Bonner MD LAB HISTORICA [id number] RESULTS Final Result [place] See order comments [place] [address] * Iron Panel (Fe, TIBC, TSAT) (01/03/2025 9:39 AM EDT) Iron 50 45 - 160 mcg/dL See order comments TIBC 230 228 - 428 mcg/dL See order comments Iron Saturation (TSat) 22 15 - 50 % See order comments UIBC 180 ug/dL See order comments 01/03/2025 9:39 AM EDT 01/03/2025 9:39 AM EDT us Tashi Bonner MD LAB BLOOD ORDERABLES Final Result Performing Organization Address [facility] de Phone Number [facility] See order comments [place] [address] * Vitamin D 25 Hydroxy (01/03/2025 9:39 AM EDT) Vitamin D, 25-Hydroxy 88.8 >30 ng/mL See order comments Comment: Health Based Reference Values* < 20 ng/mL Deficient 20-30 ng/mL Insufficient > 30 ng/mL Sufficient *Nancy JUDGE. N Engl J Med. 2007;357:266-280 There is no well-established upper level of normal vitamin D levels. Some laboratories use 50 ng/mL as an upper limit of normal. However, toxicity is patient-dependent and may occur at any level. Careful correlation with the patient's presentation is necessary and, if there is concern for vitamin D toxicity, treatment should be considered irrespective of the serum level. Care must be taken in interpreting Vitamin D results from different laboratories and methodologies. Published data demonstrated that results from patients undergoing hemodialysis may show a negative bias when tested with various automated 25-OH vitamin D assays when compared to LC-MS/MS. When testing samples from patients whose predominant form of Vitamin D is Vitamin D2, such as patients receiving Vitamin D2 supplementation, results that are subtherapeutic should be confirmed with another method such as LC-MS/MS. 01/03/2025 9:39 AM EDT 01/03/2025 9:39 AM EDT us Tashi Bonner MD LAB BLOOD ORDERABLES Final Result Performing Organization Address [facility] Co de Phone Number [place] See order comments [place] [address] * (ABNORMAL) CBC and Differential (01/03/2025 9:39 AM EDT) WBC 3.9(L) 4.8 - 10.8 X10*3/uL See order comments RBC 3.81(L) 4.60 - 5.80 X10*6/uL See order comments Hgb 10.6(L) 14.0 - 18.0 g/dl See order comments Hematocrit 33.2(L) 42.0 - 52.0 % See order comments MCV 87.1 80.0 - 98.0 fL See order comments MCH 27.8 27.0 - 33.0 pg See order comments MCHC 31.9 31.0 - 36.0 g/dl See order comments RDW 18.7(H) 11.0 - 16.0 % See order comments Platelets 197 160 - 400 X10*3/uL See order comments MPV 9.4 9.4 - 12.4 fL See order comments Neutrophils % Auto 67.4 45 - 73 % See order comments Immature Granulocytes 0.5(H) 0.0 - 0.4 % See order comments Lymphocytes Relative 19.6(L) 20 - 40 % See order comments Monocytes 7.9 2 - 11 % See order comments Eosinophils Relative 4.1(H) 0 - 4 % See order comments Basophils Relative 0.5 0 - 2 % See order comments nRBC Count 0.0 0.0 - 0.2 /100WBC See order comments Neutrophils Absolute 2.6 2.0 - 8.3 x10*3/uL See order comments Immature Grans (Absolute) 0.02 0.00 - 0.03 X10*3/uL See order comments Lymphocytes Absolute 0.8(L) 1.2 - 4.9 X10*3/uL See order comments Monocytes Absolute 0.3 0.1 - 1.2 X10*3/uL See order comments Eosinophils Absolute 0.2 0.0 - 0.4 X10*3/uL See order comments Basophils Absolute 0.0 0.0 - 0.2 X10*3/uL See order comments NRBC Absolute 0.000 0.0 - 0.012 X10*3/uL See order comments 01/03/2025 9:39 AM EDT 01/03/2025 9:39 AM EDT us Tashi Bonner MD LAB BLOOD ORDERABLES Final Result [place] See order comments [place] [address] * (ABNORMAL) Uric Acid (01/03/2025 9:39 AM EDT) Uric Acid 8.0(H) 3.4 - 7.0 mg/dL See order comments 01/03/2025 9:39 AM EDT 01/03/2025 9:39 AM EDT us Tashi Bonner MD LAB BLOOD ORDERABLES Final Result [facility] See order comments [place] [address] * Phosphorus (01/03/2025 9:39 AM EDT) Phosphorus, Serum 3.0 2.7 - 4.5 mg/dL See order comments 01/03/2025 9:39 AM EDT 01/03/2025 9:39 AM EDT us Tashi Bonner MD LAB BLOOD ORDERABLES Final Result Performing Organization Address [facility] Co de Phone Number [place] See order comments [place] [address] * (ABNORMAL) Magnesium (01/03/2025 9:39 AM EDT) Magnesium 1.5(L) 1.6 - 2.6 mg/dL See order comments 01/03/2025 9:39 AM EDT 01/03/2025 9:39 AM EDT us Tashi Bonner MD LAB BLOOD ORDERABLES Final Result Performing Organization Address [facility] Co de Phone Number [place] See order comments [place] [address] * (ABNORMAL) Hemoglobin A1c (01/03/2025 9:39 AM EDT) Hemoglobin A1C 6.8(H) <6.0 % See o rder comments Comment: Hemoglobin A1C Reference Range Adults: 4.8 - 6.0 % Non diabetic: < 6.0 % Goal: < 7.0 % Additional Action Suggested: > 8.0 % Note: Hemoglobin A1c results are invalid for patients with abnormal amounts of HbF. Blood transfusions may impact the HbA1c concentration in the patient sample. Estimated Average Glucose 148 mg/dL See order comments Comment: eAG = Estimated average glucose which is %A1C expressed as average glucose, using the formula of the F8T-Fspitih Average Glucose study (ADAG), Diabetes Care, Vol.31,#8, 2007 01/03/2025 9:39 AM EDT 01/03/2025 9:39 AM EDT us Tashi Bonner MD LAB BLOOD ORDERABLES Final Result Performing Organization Address [facility] Co de Phone Number [place] See order comments [place] [address] * Ferritin (01/03/2025 9:39 AM EDT) Ferritin 39 20 - 250 ng/mL See order comments 01/03/2025 9:39 AM EDT 01/03/2025 9:39 AM EDT us Tashi Bonner MD LAB BLOOD ORDERABLES Final Result Performing Organization Address [facility] de Phone Number [place] See order comments [place] [address] * (ABNORMAL) Basic Metabolic Panel (01/03/2025 9:39 AM EDT) Sodium 142 135 - 145 mmol/L See order comments Potassium 3.8 3.3 - 5.1 mmol/L See order comments Chloride 105 96 - 108 mmol/L See order comments Bicarbonate (CO2) 29 22 - 29 mmol/L See order comments Anion Gap 12 12 - 20 See order comments BUN 9 9 - 16 mg/dL See order comments Creatinine Serum 1.57(H) 0.5 - 1.4 mg/dL See order comments eGFR (Calc) 46 See orde r comments Comment: Chronic Kidney Disease: Estimated GFR < 60 mL/min/1.73m2 Severe Kidney Disease: Estimated GFR < 15 mL/min/1.73m2 Glucose 160(H) 60 - 115 mg/dL See order comments Calcium 8.8 8.4 - 10.2 mg/dL See order comments 01/03/2025 9:39 AM EDT 01/03/2025 9:39 AM EDT Tashi Bonner MD LAB BLOOD ORDERABLES Final Result [place] See order comments [place] [address] from Last 3 Months Insurance Care Teams Assistant Warehouse Manager Relationship Specialty Start Date End Date Bon Arvizu MD [address] [place] [address] PCP - General Internal Medicine 06/04/22
--- OUTSIDE RECORDS SUMMARY | 2025-01-06 13:00 | XMS_ITS | Patient Health Record ---
Author Organization [facility] Address [address] [place] [address] Care Team Providers Care Cementer [employer] Name Role Phone Fox Ku MD Primary Care Provider Briana Tashi Erwin Unavailable [phone] Alisha Moore Unavailable Unavailable Allergies No Known [...] Problem Status W/U Status Risk Notes Problem [id number] Colon cancer screening (Z12.11) Active confirmed Problem 496406143 History of adenomatous polyp of colon (Z86.010) Active confirmed Problem Diverticulosis o f large intestine without perforation or abscess without bleeding (K57.30) Active confirmed Problem [id number] Gastroesophageal reflux disease without esophagitis (K21.9) Active confirmed Problem [id number] Preprocedural examination (Z01.818) Active confirmed Problem [id number] Iron deficiency anemia, unspecified iron deficiency anemia type (D50.9) Active confirmed Plan Of Treatment Pending Test Test Name Order Date Pathology 07/13/2023 Future Test Test Name Order Date UPPER GI ENDOSCOPY 06/23/2017 COLONOSCOPY 06/23/2017 COLONOSCOPY 04/17/2023 Insurance Providers Payer Name Payer Address Payer Phone Subscriber Number Group Number Insured Name Patient Relationship to Insured Coverage Start Date Coverage End Date [facility] [address] [address] [place], [place] [id number] KIAN MAHMOOD Self - patient is the insured MEDICAID OF [facility] [address] [place] [address] [id number] KIAN MAHMOOD Self - patient is the insured Medical (General) History Medical History History ICD Code IDDM Hypertension Heart murmur-Dr. Collins Asthma/COPD- Dr. Correa Pulmonary embolus in 2016--on Coumadin-- sees Dr. Dulala Lung mass--surgery in 2008 a s below, with XRT; biopsied in approx 2015 and benign--followed by Dr. Tino Cristobalies [place],CVA,renal disease GERD--upper endoscopy August of 2017 with [...] History Surgery Date(Month/Year) Mass removed--Dr. Fields at [facility]-- Be nign , but had XRT 2008 Right inguinal hernia 1990 Ear tubes/Adenoids
--- OUTSIDE RECORDS SUMMARY | 2025-01-06 13:00 | XMS_ITS | Clinical Summary ---
Author Organization [employer] [facility] Address [address] [place] [address] [address] [place] [address] Care Team Providers Care Benefits Processor Name Role Phone Unavailable Primary Care Provider [...] Description 10/24/2024 10:00 AM EDT Office Visit [facility] [address] [place] [address] Perez Romero DDS Dental abscess (Primary Dx); [...] Description 02/01/2025 10:00 AM EDT Office Visit [facility] [address] [place], [place] [phone] Perez Romero, DDS [address], [place] [phone] Health Maintenance Due Date Last Done Comments [...]
--- OUTSIDE RECORDS SUMMARY | 2025-01-06 13:00 | XMS_ITS | Encounter Summary ---
Author Organization [facility] Address [address] [address] Phone Care Team Providers Care Butting Saw Operator Name Role Phone Bon Arvizu MD Primary Care Provider +1- [phone] Encounter Details Date Type Department Care Team (Late st Contact Info) Description 01/03/2025 Orders Only [facility] [address] [address] Tashi Bonner MD [address] [address] Social History Tobacco Use Types Packs/Day Years Used Date Smoking Tobacco: Never Assessed Sex and Gender Information Value Date Recorded Sex Assigned at Not on file Legal Sex Male 5:04 PM EST Gender Identity Not on file Sexual Orientation Not on file documented as of this encounter Plan of Treatment Upcoming Encounters Date Type Department Care Team (Late st Contact Info) Description 02/02/2025 1:30 PM EDT [facility] [address] [place] [address] Tashi Bonner MD [address] [address] 02/04/2025 Orders Only [facility] [address] [place] [phone] Tashi Bonner MD [address] [address] Stage 3b chronic kidney disease (HCC) documented as of this encounter Procedures Procedure Name Priority Date/Time Associated Diagnosis Comments PROTEIN / CREATININE RATIO, URINE Routine 01/03/2025 9:57 AM EDT ALBUMIN, URINE, RANDOM Routine 01/03/2025 9:57 AM EDT URINALYSIS WITH MICROSCOPIC Routine 01/03/2025 9:57 AM EDT PTH, INTACT (HC) Routine 01/03/2025 9:39 AM EDT IRON PANEL (FE, TIBC, TSAT) Routine 01/03/2025 9:39 AM EDT VITAMIN D 25 HYDROXY Routine 01/03/2025 9:39 AM EDT CBC AND DIFFERENTIAL Routine 01/03/2025 9:39 AM EDT URIC ACID Routine 01/03/2025 9:39 AM EDT PHOSPHATE ( PHOSPHORUS) Routine 01/03/2025 9:39 AM EDT MAGNESIUM Routine 01/03/2025 9:39 AM EDT HEMOGLOBIN A1C Routine 01/03/2025 9:39 AM EDT FERRITIN Routine 01/03/2025 9:39 AM EDT BASIC METABOLIC PANEL Routine 01/03/2025 9:39 AM EDT documented in this encounter Results * (ABNORMAL) Protein, Total, Random Urine [...] URINE ORDERABLES Final Result Performing Organization Address [facility] Co de Phone Number [facility] See order comments [place] [address] * (ABNORMAL) Albumin, urine, random (01/03/2025 9:57 [...] URINE ORDERABLES Final Result Performing Organization Address [facility] de Phone Number [place] See order comments [place] [address] * (ABNORMAL) Urinalysis with microscopic (01/03/2025 9:57 AM EDT) Color Urine Yellow See orde r comments Appearance Urine Clear See order comments pH Urine >=9.0 5.0 - 9.0 See order comments Glucose Urine Negative Negative mg/dL See order comments Blood, Urine Negative Negative See ord er comments Specific [place] Urine 1.010 1.005 - 1.025 See order [...] URINE ORDERABLES Final Result Performing Organization Address [facility] de Phone Number [facility] See order comments [place] [address] * Vitamin D 25 Hydroxy (01/03/2025 9:39 [...] BLOOD ORDERABLES Final Result Performing Organization Address [facility] Co de Phone Number [facility] See order comments [place] [address] * Ferritin (01/03/2025 9:39 AM EDT) Ferritin 39 20 - 250 ng/mL See order comments 01/03/2025 9:39 AM EDT 01/03/2025 9:39 AM EDT us Tashi Bonner MD LAB BLOOD ORDERABLES Final Result Performing Organization Address City/[facility] Co de Phone Number [facility] See order comments [place] [address] * Iron Panel (Fe, TIBC, TSAT) (01/03/2025 [...] BLOOD ORDERABLES Final Result Performing Organization Address [facility] de Phone Number [facility] See order comments [place] [address] * (ABNORMAL) Magnesium (01/03/2025 9:39 AM EDT) [facility] Magnesium 1.5(L) 1.6 - 2.6 mg/dL See order comments 01/03/2025 9:39 AM EDT 01/03/2025 9:39 AM EDT us Tashi Bonner MD LAB BLOOD ORDERABLES Final Result Performing Organization Address [facility] Co de Phone Number [facility] See order comments [place] [address] * Phosphorus (01/03/2025 9:39 AM EDT) Pathologist [facility] Phosphorus, Serum 3.0 2.7 - 4.5 mg/dL See order comments 01/03/2025 9:39 AM EDT 01/03/2025 9:39 AM EDT us Tashi Bonner MD LAB BLOOD ORDERABLES Final Result Performing Organization Address [facility] Co de Phone Number [facility] See order comments [place] [address] * (ABNORMAL) Uric Acid (01/03/2025 9:39 AM EDT) Uric Acid 8.0(H) 3.4 - 7.0 mg/dL See order comments 01/03/2025 9:39 AM EDT 01/03/2025 9:39 AM EDT us Tashi Bonner MD LAB BLOOD ORDERABLES Final Result Performing Organization Address [facility] Phone Number [facility] See order comments [place] [address] * (ABNORMAL) Basic Metabolic Panel (01/03/2025 9:39 [...] BLOOD ORDERABLES Final Result Performing Organization Address [facility] de Phone Number [facility] See order comments [place] [address] * PTH, Intact (01/03/2025 9:39 AM EDT) Parathyroid Hormone, Intact 51.4 8.7 - 77.1 pg/mL See order comments 01/03/2025 9:39 AM EDT 01/03/2025 9:39 AM EDT Tashi Bonner MD LAB HISTORICA [id number] RESULTS Final Result Performing Organization Address [facility] Co de Phone Number [facility] See order comments [place] [address] * (ABNORMAL) Hemoglobin A1c (01/03/2025 9:39 AM EDT) Pathologist [facility] Hemoglobin A1C 6.8(H) <6.0 % See o [...] average glucose, using the formula of the O9P-Tkswecj Average Glucose study (ADAG), Diabetes Care, Vol.31,#8, Dec. 2007 01/03/2025 9:39 AM EDT 01/03/2025 9:39 AM EDT Tashi Bonner MD LAB BLOOD ORDERABLES Final Result Performing Organization Address [facility] Co de Phone Number [place] See order comments [place] [address] * (ABNORMAL) CBC and Differential (01/03/2025 9:39 [...] Bonner MD LAB BLOOD ORDERABLES Final Result [place] See order comments [place] [address] documented in this encounter Visit Diagnoses Not on filedocumented in this encounter Care Teams Butting Saw Operator Relationship Specialty Start Date End Date Nolberto, Bon S, MD [address] [place] [address] PCP - General Internal Medicine 06/04/22 documented as of this encounter
--- OUTSIDE RECORDS SUMMARY | 2025-01-06 13:00 | XMS_ITS | Clinical Summary ---
Author Organization [facility] Address [address] [place] [address] Care Team Providers Care System Integration Engineer Name Role Phone Unavailable Primary Care [...]
[2025-01-06] MEDS: Lactated Ringers 1,000 ML 999 ML IV (13:30)
[2025-01-06 13:34] LABS: Appearance Urine Clear; Glucose Urine UA Negative (Negative); PH >= 9.0 (5.0-9.0); Specific Gravity - Urine 1.015 (1.005-1.025)
[2025-01-06 13:55] VITALS: BP 143/90; PULSE 74; RESP 14; TEMP 36.7; O2SAT 100
[2025-01-06 14:00] VITALS: BP 137/74; PULSE 94; RESP 16; TEMP 36.9; O2SAT 100
[2025-01-06 15:23] VITALS: BP 130/71; PULSE 81; RESP 14; TEMP 36.9; O2SAT 100
[2025-01-06 16:00] VITALS: BP 140/91; PULSE 88; RESP 16; TEMP 36.7; O2SAT 100
[2025-01-06 16:41] VITALS: BP 140/91; PULSE 88; RESP 16; TEMP 36.7; O2SAT 100
== END 2025-01-06 16:42 | disposition home or self-care (01) ==
PROVIDERS: Physician Assistant; Emergency Provider Emergency Medicine; PCP Internal Medicine
DX: T50.905A Adverse effect of unspecified drugs, medicaments and biological substances, initial encounter (principal); R00.2 Palpitations; R11.2 Nausea with vomiting, unspecified; R19.7 Diarrhea, unspecified; E11.9 Type 2 diabetes mellitus without complications; J45.909 Unspecified asthma, uncomplicated; K21.9 Gastro-esophageal reflux disease without esophagitis
CPT/HCPCS: 36415; 80053; 81001; 83690; 85025; 93005; 96361; 96374; 99284; 99285; J2405; J7120

== ENCOUNTER → 2025-01-06 12:22 | Outpatient (BNV) | payer OTHER, SELFPAY | PROVIDERS: Emergency Provider Emergency Medicine; PCP Internal Medicine; Visit Provider Internal Medicine | DX: R00.2 Palpitations (principal) | CPT/HCPCS: 93010 ==

== ENCOUNTER 2025-01-10 12:09 | Emergency (ER) | payer OTHER, SELFPAY ==
--- NOTE | 2025-01-10 12:14 | ECG_ITS ---
Test Reason : CP Blood Pressure : */* mmHG Vent. Rate : 69 BPM Atrial Rate : 69 BPM P-R Int : 136 ms QRS Dur : 100 ms QT Int : 426 ms P-R-T Axes : 32 -2 9 degrees QTcB Int : 456 ms Normal sinus rhythm Minimal voltage criteria for LVH, may be normal variant ( R in aVL ) Borderline ECG When compared with ECG of 06-Jan-2025 12:28, No significant change was found Referred By: Generic ED Physician Electronically Signed By: Low Machado
[2025-01-10 12:26] VITALS: BP 160/59; PULSE 69; RESP 18; TEMP 36.8; O2SAT 94; BMI 38.7
--- NOTE | 2025-01-10 12:29 | ED.GENADULT ---
HPI - General Adult General Chief complaint: Arrhythmia/Palpitations Stated complaint: Heart racing Time Seen by Provider: 01/10/25 13:28 History of Present Illness ED Provider: Dinh Saldana MD HPI narrative: 54-year-old male history of previous documented PVCs normal EF on echo from 2021 heavy caffeine use previously mood disorder, hypertension, diabetes, chronic restrictive lung disease, recurrent palpitations here with palpitations slowly resolving on arrival. The patient reports PE in 2013 previously on anticoagulation not currently Related Data Home Medications ?Medication ?Instructions ?Recorded ?Confirmed losartan 25 mg tablet 25 mg PO DAILY 09/13/24 11/14/24 betamethasone dipropionate 0.05 % 1 appl topical DAILY wound 10/12/24 11/14/24 topical cream cholecalciferol (vitamin D3) 50 50 mcg PO DAILY 10/12/24 11/14/24 mcg (2,000 unit) capsule thiamine HCl (vitamin B1) 100 mg 100 mg PO BID 11/14/24 11/14/24 tablet Previous Rx's ?Medication ?Instructions ?Recorded metformin 1,000 mg tablet 1,000 mg PO BID 90 days #180 tabs 08/29/24 escitalopram oxalate 20 mg tablet 20 mg PO QAM #90 tabs 10/06/24 olanzapine 5 mg tablet 5 mg PO BID 30 days #60 tabs 10/19/24 insulin glargine 100 unit/mL (3 15 unit (0.15 mL) subcut DAILY #15 10/27/24 mL) subcutaneous pen (Lantus mL Solostar U-100 Insulin) albuterol sulfate 90 mcg/actuation 2 puff inhalation Q4-6H PRN for 12/23/24 aerosol inhaler (Ventolin HFA) wheezing #18 ea hydroxyzine HCl 25 mg tablet 25 mg PO TID PRN anxiety #30 tabs 12/23/24 amoxicillin 875 mg-potassium 1 tab PO BID #14 tabs 01/02/25 clavulanate 125 mg tablet azithromycin 250 mg tablet See Rx Instructions PO .COMPLEX #6 01/02/25 tabs atorvastatin 40 mg tablet 40 mg PO DAILY #90 tabs 01/04/25 ferrous sulfate 325 mg (65 mg 325 mg PO DAILY #90 tabs 01/04/25 iron) tablet omeprazole 40 mg capsule,delayed 40 mg PO DAILY #90 caps 01/04/25 release tamsulosin 0.4 mg capsule 0.4 mg PO BEDTIME #90 caps 01/04/25 ondansetron HCl 4 mg tablet 4 mg PO Q8H PRN nausea and 01/06/25 vomiting #12 tabs Allergies Allergy/AdvReac Type Severity Reaction Status Date / Time pollen extracts (POLLEN) Allergy Mild RUNNY NOSE Verified 01/10/25 12:29 cat dander (CATS) Allergy Unknown UNKNOWN Verified 01/10/25 12:29 dog dander (DOGS) Allergy Unknown UNKNOWN Verified 01/10/25 12:29 mold (MOLD) Allergy Unknown UNKNOWN Verified 01/10/25 12:29 [facility] Past Medical History Medical History Suicidal ideation Situational crisis Suicidal ideation Psychosis Chest pain Recurrent major depression Allergic rhinitis Insomnia Palpitations Vitamin D deficiency Chronic kidney disease, stage III (moderate) GERD without esophagitis Restrictive lung disease Obesity (BMI 30-39.9) Benign essential hypertension Pure hypercholesterolemia Diabetes mellitus Pulmonary emboli Chondrosarcoma Hyperlipidemia Chronic restrictive lung disease COPD (chronic obstructive pulmonary disease) Asthma Surgical History History of esophagogastroduodenoscopy (EGD) H/O colonoscopy History of inguinal hernia repair Hx of exploratory thoracotomy H/O tooth extraction Family History Family History Father Hypertension Kidney failure, acute Mother Lung cancer Family/Other Diabetes Social History Social History Household Members: None Housing: House Do you presently have visiting nurse or other home services: No Alcohol intake: former Patient Tobacco Use Status: Never used Tobacco Smoked in Last 30 Days: No e-Cigarette/Vaping Use: Never Used Second Hand Smoke Exposure: No Use of substances other than those prescribed or required for medical reasons: No Advance Directives: Yes Advance Directives on File: Yes Advance Directives Date on File: 10/25/15 service: No Current occupational status: unemployed Sexual orientation: Straight/Heterosexual Cognitive needs: No Hearing needs: No Vision needs: Yes (Glasses) Physical Exam ED Exam Exam: EXAM: Gen: Alert, awake, well appearing. Head: Atraumatic Eyes: Anicteric, Normal conjunctiva. ENT:slightly dry oral mucosa, no pallor. ? Neck: Supple. Skin: ?No observable rash or bruising on exposed or examined skin Respiratory: Breathing comfortably, No distress.Clear to auscultation bilaterally, symmetric chest expansion, No wheeze, rales, ronchi. Cardiovascular: Regular rate and rhythm. No murmurs or rub. Well perfused periphery, warm extremities. No edema. ? Abdominal: No focal tenderness. Soft, no objective distension. No palpable masses or obvious organomegaly. ?No guarding, no rebound tenderness or other peritoneal findings. : No flank tenderness. Neuro: Alert. Gross movement of all extremities intact. ? Psych: Calm. Cooperative. MSK: No grossly visible deformity. Vital signs: See flowsheet Vital Signs: Vital Signs - 24 hr 01/10/25 12:26 01/10/25 15:34 Temperature 98.3 F 98.3 F Pulse Rate 69 69 Respiratory Rate 18 18 Blood Pressure 160/59 H 160/59 H Pulse Oximetry 94 94 Oxygen Delivery Method Room Air Room Air BMI result Body Mass Index 38.7 Course Course Course Narrative: This is a Rapid Medical Examination (RME) performed by Festus Hodges PA-C in triage. Full HPI, ROS, assessment and treatment plan per primary provider in the Main ED. Hx: 54 yo M hx of MDD, CATIE, mood disorder here with concerns for heart racing and shock through chest this morning while riding the shuttle. symptoms have resolved. Plan: labs, ekg Medical Decision Making Medical Decision Making MDM Narrative: Medical Decision Makin-year-old male with recurrent palpitations seem again today. Reassuring workup including electrolytes ECG: Sinus rhythm no ischemic changes. D-dimer negative. Patient was hydrated orally in the ED no acute emergent medical condition identified symptom free with resolution of recurrent palpitations could be dehydration versus less likely electrolyte or thyroid disorder given the chemistry test results. He has had this in the past and he has been diagnosed with PVCs and seen cardiology may need Holter monitor once again. Preliminary Favored Differential Diagnosis: Transient tachycardia, deconditioning, tachyarrhythmia, PE, electrolyte derangement, dehydration, thyroid disorder among additional considered etiologies Testing Interpreted Independently: ?See below for details Radiology or Lab testing Results Reviewed: ?See below for details Consults: ?See below for details Independent Historians/External Chart Reviews: ?See below for details Social Determinants of Health Impacting MDM/Planning: ?See below for details Lab Data MDM Lab Attestation statement: I reviewed the patient's lab results. 01/10/25 12:38 01/10/25 12:38 Labs: Lab Results 01/10/25 01/10/25 Range/Units 12:38 14:35 WBC 5.3 (4.8-10.8) X10*3/uL RBC 4.02 L (4.60-5.80) X10*6/uL Hgb 11.3 L (14.0-18.0) g/dl Hct 34.8 L (42.0-52.0) % MCV 86.6 (80.0-98.0) fL MCH 28.1 (27.0-33.0) pg MCHC 32.5 (31.0-36.0) g/dl RDW 19.0 H (11.0-16.0) % Plt Count 202 (160-400) X10*3/uL MPV 9.4 (9.4-12.4) fL Immature Gran % (Auto) 0.4 (0.0-0.4) % Neut % (Auto) 62.7 (45-73) % Lymph % (Auto) 25.4 (20-40) % [place] % (Auto) 7.7 (2-11) % Eos % (Auto) 3.4 (0-4) % Baso % (Auto) 0.4 (0-2) % Lymph # (Auto) 1.4 (1.2-4.9) X10*3/uL [place] # (Auto) 0.4 (0.1-1.2) X10*3/uL Eos # (Auto) 0.2 (0.0-0.4) X10*3/uL Baso # (Auto) 0.0 (0.0-0.2) X10*3/uL Abs Immat Gran (auto) 0.02 (0.00-0.03) X10*3/uL Absolute Neuts (auto) 3.3 (2.0-8.3) x10*3/uL Absolute Nucleated RBC 0.000 (0.0-0.012) X10*3/uL Nucleated RBC % (auto) 0.0 (0.0-0.2) /100WBC D-Dimer High Sensitivty 154 NG/ML Sodium 144 (135-145) mmol/L Potassium 4.5 (3.3-5.1) mmol/L Chloride 107 (96-108) mmol/L Carbon Dioxide 32 H (22-29) mmol/L Anion Gap 10 L (12-20) BUN 10 (9-16) mg/dL Creatinine 1.45 H (0.5-1.4) mg/dL Estim Creat Clear Calc 71.8 Estimated GFR 51 Random Glucose 135 H (60-115) mg/dL Calcium 9.1 (8.4-10.2) mg/dL Magnesium 1.7 (1.6-2.6) mg/dL Total Bilirubin 0.5 (0.0-1.0) mg/dL AST 26 (5-37) U/L ALT 19 (0-40) U/L Alkaline Phosphatase 99 (39-117) U/L Troponin I High Sens 7.0 (<3.5-35.0) ng/L Total Protein 7.0 (6.5-8.0) g/dL Albumin 3.9 (3.5-5.0) g/dL Lipase 26 (8-78) U/L TSH 2.13 (0.32-4.0) uIU/mL Independent Interpretation I performed an independent interpretation of an: EKG Interpretation: ECG: Sinus rhythm rate 69 QTC 456, no acute ischemic changes Discharge Plan Discharge Clinical Impression: Heart palpitations Patient Disposition: Home, Self-Care Instructions: Heart Palpitations (ED) Additional Instructions: DISCHARGE DIAGNOSES: Palpitations HISTORY OF PRESENTATION: ?Resolving rapid palpitations EMERGENCY DEPARTMENT COURSE,TESTS, TREATMENTS: While in the ED today you had basic blood work including blood counts electrolytes and an EKG that were reassuring DISCHARGE MEDICATIONS: ?[We have made no changes to your regular medication regimen] FOLLOW-UP: ?Call your primary or general physician soon as possible to discuss your symptoms, your ED visit and to discuss follow up plans Call your primary doctor for follow up INSTRUCTIONS ?& RETURN PRECAUTIONS: If any symptoms change first call your primary physician, if it is after-hours your primary doctors office should have a provider special population paraprofessional you can speak with. If the symptoms are severe or very concerning to you then call 911 or return to the ED. [07] Dinh Saldana MD Emergency Physician [facility] Prescriptions: No Action metformin 1,000 mg tablet 1,000 mg PO BID 90 Days Qty: 180 1RF escitalopram oxalate 20 mg tablet 20 mg PO QAM Qty: 90 1RF insulin glargine [Lantus Solostar U-100 Insulin] 100 unit/mL (3 mL) insulin pen 15 unit subcut DAILY Qty: 15 0RF hydroxyzine HCl 25 mg tablet 25 mg PO TID PRN (Reason: anxiety) Qty: 30 0RF albuterol sulfate [Ventolin HFA] 90 mcg/actuation HFA aerosol inhaler 2 puff inhalation Q4-6H PRN (Reason: for wheezing) Qty: 18 1RF ferrous sulfate 325 mg (65 mg iron) tablet 325 mg PO DAILY Qty: 90 0RF omeprazole 40 mg capsule,delayed release(DR/EC) 40 mg PO DAILY Qty: 90 0RF atorvastatin 40 mg tablet 40 mg PO DAILY Qty: 90 0RF tamsulosin 0.4 mg capsule 0.4 mg PO BEDTIME Qty: 90 0RF betamethasone dipropionate 0.05 % cream 1 appl topical DAILY cholecalciferol (vitamin D3) 50 mcg (2,000 unit) capsule 50 mcg PO DAILY olanzapine 5 mg Tablet 5 mg PO BID 30 Days Qty: 60 0RF thiamine HCl (vitamin B1) 100 mg tablet 100 mg PO BID azithromycin 250 mg tablet See Rx Instructions .ROUTE .COMPLEX Qty: 6 0RF Rx Instructions: For 250 mg dose pack: take 500 mg today (day 1), then 250 mg for 4 days (days 2-5) amoxicillin-pot clavulanate 875-125 mg tablet 1 tab PO BID Qty: 14 0RF ondansetron HCl 4 mg tablet 4 mg PO Q8H PRN (Reason: nausea and vomiting) Qty: 12 0RF losartan 25 mg tablet 25 mg PO DAILY Interventions: ED Discharge Assessment Last Done: 01/10/25 15:34 Discharge Date/Time: 01/10/25 15:38 Print Language: Turkish
[2025-01-10 12:42] LABS: MANUAL DIFF FLAG NO
[2025-01-10 12:44] LABS: Hematocrit 34.8 % (42.0-52.0); Hemoglobin 11.3 g/dl (14.0-18.0); Imm Gran Abs Auto 0.02 X10*3/uL (0.00-0.03); Imm Gran Pct Auto 0.4 % (0.0-0.4); Lymphocytes Absolute Auto 1.4 X10*3/uL (1.2-4.9); Mean Corpuscular HGB Conc 32.5 g/dl (31.0-36.0); Mean Corpuscular Hemoglobin 28.1 pg (27.0-33.0); Mean Corpuscular Volume 86.6 fL (80.0-98.0); NRBC Abs Auto 0.000 X10*3/uL (0.0-0.012); NRBC Pct Auto 0.0 /100WBC (0.0-0.2); Platelet Count 202 X10*3/uL (160-400); Red Blood Count 4.02 X10*6/uL (4.60-5.80); White Blood Count 5.3 X10*3/uL (4.8-10.8)
[2025-01-10 12:57] LABS: Alanine Aminotransferase 19 U/L (0-40); Albumin Level 3.9 g/dL (3.5-5.0); Alkaline Phosphatase 99 U/L (39-117); Anion Gap 10 (12-20); Aspartate Amino Transferase 26 U/L (5-37); Blood Urea Nitrogen 10 mg/dL (9-16); Calcium 9.1 mg/dL (8.4-10.2); Carbon Dioxide 32 mmol/L (22-29); Chloride 107 mmol/L (96-108); Creatinine Clr Calc Pharmacy 71.8; Estimated Glomerular Filt Rate 51; Lipase 26 U/L (8-78); Magnesium 1.7 mg/dL (1.6-2.6); Potassium 4.5 mmol/L (3.3-5.1); Sodium 144 mmol/L (135-145); Total Protein 7.0 g/dL (6.5-8.0)
[2025-01-10 13:06] LABS: Troponin-I High Sensitivity 7.0 ng/L (<3.5-35.0)
[2025-01-10 14:28] LABS: Thyroid Stimulating Hormone 2.13 uIU/mL (0.32-4.0)
--- OUTSIDE RECORDS SUMMARY | 2025-01-10 14:39 | XMS_ITS | Clinical Summary ---
Author Organization [facility] Facility Address [address] [place] [address] Care Team Providers Care Prison Guard Name Role Phone Bon Arvizu MD Primary Care Provider [phone] Allergies No known active allergies Medications Ventolin [...] Orders Only [facility] [address] [address] Tashi Bonner MD from Last [...] Visit [facility] [address] [place] [address] Tashi Bonner MD [address] [address] 02/04/2025 Orders Only [facility] [address] [place] [id number] Tashi Bonner MD [address] [address] Stage 3b chronic kidney disease [...] WITH MICROSCOPIC Routine 01/03/2025 9:57 AM EDT CYSTATIN C WITH EGFR Routine 01/03/2025 9:39 AM EDT VITAMIN D [...] URINE ORDERABLES Final Result Performing Organization Address City/[facility]/ZIP Co de Phone Number [place] See order comments [place] [address] * (ABNORMAL) Albumin, urine, random (01/03/2025 9:57 [...] Bonner MD LAB URINE ORDERABLES Final Result [place] See order comments [place] [address] * (ABNORMAL) Urinalysis with microscopic (01/03/2025 9:57 AM EDT) Color Urine Yellow See orde r comments Appearance Urine Clear See order comments pH Urine >=9.0 5.0 - 9.0 See order comments Glucose Urine Negative Negative mg/dL See order comments Blood, Urine Negative Negative See ord er comments Specific [place] Urine 1.010 1.005 - 1.025 See order [...] URINE ORDERABLES Final Result Performing Organization Address City/[facility] Co de Phone Number [place] See order comments [place] [address] * PTH, Intact (01/03/2025 9:39 AM EDT) Parathyroid Hormone, Intact 51.4 8.7 - 77.1 pg/mL See order comments 01/03/2025 9:39 AM EDT 01/03/2025 9:39 AM EDT Tashi Bonner MD LAB HISTORICA [id number] RESULTS Final Result Performing Organization Address [facility] Co de Phone Number [place] See order comments [place] [address] * Cystatin C w/GFR (01/03/2025 9:39 AM EDT) Cystatin C 2.09 See order comments Comment: REFRENCE RANGE 0.52-1.23 MG/L Performing Sites [facility], [address], [place], [place] Air Operations Manager: Malik Salmeron M.D.,PhD eGFR by Cystatin C 30 See order comments Comment: REFERENCE RANGE:>=60 mL/min/1.73mE2 Performing Sites [employer] [facility], [address], [place], [place] Air Operations Manager: Malik Salmeron M.D.,PhD 01/03/2025 9:39 AM EDT 01/03/2025 9:39 AM EDT Tashi Bonner MD LAB BLOOD ORDERABLES Final Result Performing Organization Address [facility] Co de Phone Number [place] See order comments [place] [address] * Iron Panel (Fe, TIBC, TSAT) (01/03/2025 [...] BLOOD ORDERABLES Final Result Performing Organization Address [facility] de Phone Number [place] See order comments [place] [address] * Vitamin D 25 Hydroxy (01/03/2025 9:39 [...] Bonner MD LAB BLOOD ORDERABLES Final Result [place] See order comments [place] [address] * (ABNORMAL) CBC and Differential (01/03/2025 9:39 [...] BLOOD ORDERABLES Final Result Performing Organization Address City/[facility] Co de Phone Number [place] See order comments [place] [address] * (ABNORMAL) Uric Acid (01/03/2025 9:39 AM EDT) Uric Acid 8.0(H) 3.4 - 7.0 mg/dL See order comments 01/03/2025 9:39 AM EDT 01/03/2025 9:39 AM EDT Tashi Bonner MD LAB BLOOD ORDERABLES Final Result [facility] See order comments [place] [address] * Phosphorus (01/03/2025 9:39 AM EDT) Phosphorus, Serum 3.0 2.7 - 4.5 mg/dL See order comments 01/03/2025 9:39 AM EDT 01/03/2025 9:39 AM EDT us Tashi Bonner MD LAB BLOOD ORDERABLES Final Result Performing Organization Address City/State/[facility] Co de Phone Number [place] See order comments [place] [address] * (ABNORMAL) Magnesium (01/03/2025 9:39 AM EDT) Magnesium 1.5(L) 1.6 - 2.6 mg/dL See order comments 01/03/2025 9:39 AM EDT 01/03/2025 9:39 AM EDT us Tashi Bonner MD LAB BLOOD ORDERABLES Final Result Performing Organization Address [facility] de Phone Number [facility] See order comments [place] [address] * (ABNORMAL) Hemoglobin A1c (01/03/2025 9:39 AM [...] average glucose, using the formula of the [id number] Average Glucose study (ADAG), Diabetes Care, Vol.31,#8, 2007 01/03/2025 9:39 AM EDT 01/03/2025 9:39 AM EDT us Tashi Bonner MD LAB BLOOD ORDERABLES Final Result Performing Organization Address [facility] Co de Phone Number [place] See order comments [place] [address] * Ferritin (01/03/2025 9:39 AM EDT) Ferritin 39 20 - 250 ng/mL See order comments 01/03/2025 9:39 AM EDT 01/03/2025 9:39 AM EDT Tashi Bonner MD LAB BLOOD ORDERABLES Final Result [place] See order comments [place] [address] * (ABNORMAL) Basic Metabolic Panel (01/03/2025 9:39 [...] order comments [place] [address] from Last 3 Months Insurance [facility] [employer] [place] [address] [place] [address] Care Teams Prison Guard Relationship Specialty Start Date End Date Bon Arvizu MD [address] [place] [address] PCP - General Internal Medicine 06/04/22
--- OUTSIDE RECORDS SUMMARY | 2025-01-10 14:39 | XMS_ITS | Clinical Summary ---
Author Organization [facility] Address [address] [place] [address] [address] [place] [address] Care Team Providers Care Recreational Therapy Aide Name Role Phone Unavailable Primary Care Provider [...] 10:00 AM EDT Office Visit [facility] [address] [place] [address] Perez Romero DDS Dental abscess (Primary Dx); [...] 10:00 AM EDT Office Visit [facility] [address], [place] [phone] Perez Romero, DDS [address], [place] [phone] Health Maintenance Due Date Last Done Comments [...] Most Recently Relevant to Health Maintenance Insurance [facility] MEDICAID STAND ADULT
--- OUTSIDE RECORDS SUMMARY | 2025-01-10 14:39 | XMS_ITS | Encounter Summary ---
Author Organization [facility] Address [address] [place] [id number] Care Team Providers Care Rubber Cutter Name Role Phone Unavailable Primary Care Provider Unavailabl e Encounter Details Date Type Department Care Team (Late st Contact Info) Description 12/23/2021 Scanned Document [facility] [address] [place] [id number] Gastroenterology, Scan Social History Tobacco Use Types [...]
--- OUTSIDE RECORDS SUMMARY | 2025-01-10 14:39 | XMS_ITS | Clinical Summary ---
Author Organization [facility] Address [address] [place] [address] Care Team Providers Care Boiler Room Operator Name Role Phone Unavailable Primary Care [...]
[2025-01-10 14:51] LABS: D Dimer High Sensitivity 154 NG/ML
[2025-01-10 15:34] VITALS: BP 160/59; PULSE 69; RESP 18; TEMP 36.8; O2SAT 94
== END 2025-01-10 15:38 | disposition home or self-care (01) ==
PROVIDERS: Physician Assistant Medical; Emergency Provider Emergency Medicine; PCP Internal Medicine
DX: R00.2 Palpitations (principal); R07.9 Chest pain, unspecified; I10 Essential (primary) hypertension; E11.9 Type 2 diabetes mellitus without complications; Z79.899 Other long term (current) drug therapy
CPT/HCPCS: 36415; 80053; 83690; 83735; 84443; 84484; 85025; 85379; 93005; 99283; 99285

== ENCOUNTER → 2025-01-10 12:14 | Outpatient (BNV) | payer OTHER, SELFPAY | PROVIDERS: Emergency Provider Emergency Medicine; PCP Internal Medicine; Visit Provider Internal Medicine Cardiovascular Disease | DX: R07.9 Chest pain, unspecified (principal) | CPT/HCPCS: 93010 ==

== ENCOUNTER → 2025-01-16 13:24 | Outpatient (BNVA) | payer OTHER, SELFPAY | PROVIDERS: PCP Internal Medicine | DX: Z09 Encounter for follow-up examination after completed treatment for conditions other than malignant neoplasm (principal) | CPT/HCPCS: 99211 ==

== ENCOUNTER 2025-01-19 14:24 | Inpatient (IN) | payer OTHER, SELFPAY ==
[2025-01-19 14:31] VITALS: BP 150/92; PULSE 81; RESP 16; O2SAT 95; BMI 30.7
[2025-01-19 14:37] VITALS: BP 164/87; PULSE 84; RESP 16; TEMP 36.7; O2SAT 98
[2025-01-19 14:53] LABS: Appearance Urine Clear; Glucose Urine UA Negative (Negative); PH 8.5 (5.0-9.0); Specific Gravity - Urine 1.015 (1.005-1.025)
--- NOTE | 2025-01-19 15:02 | ED_ITS ---
HPI - General Adult General Chief complaint: Psychiatric Symptoms Stated complaint: SI W/PLAN,AUDITORY HALLUCINATIONS,FROM DR OFFICE Time Seen by Provider: 01/19/25 14:41 Source: patient Mode of arrival: ambulatory Limitations: no limitations History of Present Illness ED Provider: Dr. Aguilar HPI narrative: 54-year-old male presented hospital today for evaluation of suicide ideation. Patient has presented from his counselor's office. Patient stated that he wanted to overdose on pills. He also want to jump off the bridge. Patient does endorse some visual hallucination which is new for him. No history of schizophrenia in the past. No psychiatric history in the past. Related Data Home Medications ?Medication ?Instructions ?Recorded ?Confirmed losartan 25 mg tablet 25 mg PO DAILY 09/13/2401/09 cholecalciferol (vitamin D3) 50 50 mcg PO DAILY 01/19/25 mcg (2,000 unit) capsule thiamine HCl (vitamin B1) 100 mg 100 mg PO BID 5 01/19/25 tablet Previous Rx's ?Medication ?Instructions ?Recorded metformin 1,000 mg tablet 1,000 mg PO BID 90 days #180 tabs 08/29/24 escitalopram oxalate 20 mg tablet 20 mg PO QAM #90 tab s 10/06/24 olanzapine 5 mg tablet 5 mg PO BID 30 days #60 tabs 10/19/24 insulin glargine 100 unit/mL (3 15 unit (0.15 mL) subc ut DAILY #15 10/27/24 mL) subcutaneous pen (Lantus mL Solostar U-100 Insulin) atorvastatin 40 mg tablet 40 mg PO DAILY #90 tabs 12/10 12/02 ferrous sulfate 325 mg (65 mg 325 mg PO DAILY #90 tabs 01/04/25 iron) tablet omeprazole 40 mg capsule,delayed 40 mg PO DAILY #90 ca ps 01/04/25 release tamsulosin 0.4 mg capsule 0.4 mg PO BEDTIME #90 caps 0 01/04/25 ondansetron HCl 4 mg tablet 4 mg PO Q8H PRN nausea and 01/06/25 vomiting #12 tabs hydroxyzine HCl 25 mg tablet 25 mg PO TID PRN anxiety #30 tabs 01/11/25 albuterol sulfate 90 mcg/actuation 2 puff inhalation Q 4-6H PRN for 01/18/25 aerosol inhaler (Ventolin HFA) wheezing #18 ea Allergies Allergy/AdvReac Type Severity Reaction Status Date / Time pollen extracts (POLLEN) Allergy Mild RUNNY NOSE Verified 01/19/25 14:33 cat dander (CATS) Allergy Unknown UNKNOWN Verified 01/19/25 14:33 dog dander (DOGS) Allergy Unknown UNKNOWN Verified 01/19/25 14:33 mold (MOLD) Allergy Unknown UNKNOWN Verified 01/19/25 14:33 lactose AdvReac Abdominal Verified 01/19/25 14:33 Pain Review of Systems 2 Review of Systems: Pertinent review of systems as mentioned in HPI. All other system otherwise negative. [facility] Past Medical History [facility] Narrative: Medical history as mentioned in HPI Medical History Suicidal ideation Situational crisis Suicidal ideation Psychosis Chest pain Recurrent major depression Allergic rhinitis Insomnia Palpitations Vitamin D deficiency Chronic kidney disease, stage III (moderate) GERD without esophagitis Restrictive lung disease Obesity (BMI 30-39.9) Benign essential hypertension Pure hypercholesterolemia Diabetes mellitus Pulmonary emboli Chondrosarcoma Hyperlipidemia Chronic restrictive lung disease COPD (chronic obstructive pulmonary disease) Asthma Surgical History History of esophagogastroduodenoscopy (EGD) H/O colonoscopy History of inguinal hernia repair Hx of exploratory thoracotomy H/O tooth extraction Family History Family History Father Hypertension Kidney failure, acute Mother Lung cancer Family/Other Diabetes Social History Social History Household Members: None Housing: House Do you presently have visiting nurse or other home services: No Alcohol intake: former Patient Tobacco Use Status: Never used Tobacco Smoked in Last 30 Days: No e-Cigarette/Vaping Use: Never Used Second Hand Smoke Exposure: No Use of substances other than those prescribed or required for medical reasons: No Advance Directives: Yes Advance Directives on File: Yes Advance Directives Date on File: 10/25/15 service: No Current occupational status: unemployed Sexual orientation: Straight/Heterosexual Cognitive needs: No Hearing needs: No Vision needs: Yes (Glasses) Physical Exam ED Exam Exam: General: Pleasant, no distress, interacting appropriately Head: Normacephalic, atraumatic ENT: oral mucosa moist, neck supple, no tracheal deviation Cardiovascular: regular rate, regular rhythm, no murmurs, rubbing, gallops Respiratory: CTAB, no wheeze, rales, rhonchi Extremities: No limb pain or swelling, no calf tenderness Neurological: Awake and alert, no facial droop noted Skin: Warm and dry Psychiatric: Endorses SI, visual hallucinations Vital Signs: Vital Signs - 24 hr 01/19/25 14:31 01/19/25 14:37 Temperature 98.0 F Pulse Rate 84 Respiratory Rate 16 16 Blood Pressure 164/87 H Pulse Oximetry 98 Oxygen Delivery Method Room Air BMI result Body Mass Index 30.7 Medications Administered Generic Name Dose Route Start Last Admin Trade Name Freq PRN Reason Stop Dose Admin Albuterol Sulfate 2 puff 01/19/25 18:38 01/19/25 22:14 Albuterol Sulfate 90 Mcg 8 Gm Inhaler INHALE 2 puff RQ4H PRN Administration for wheezing Escitalopram Oxalate 20 mg 01/19/25 18:45 01/19/25 22:24 Escitalopram Oxalate 20 Mg Tablet PO Not Given DAILY [facility] Insulin Human Lispro 0 unit 01/19/25 21:00 01/19/25 22:02 Insulin Lispro 100 Unit/Ml 3 Ml Vial SUBCUT Not Given QIDAS [facility] Protocol Metformin HCl 1,000 mg 01/19/25 21:00 01/19/25 22:18 Metformin Hcl 1,000 Mg Tablet PO 500 mg BID DANIEL Administration Olanzapine 5 mg 01/19/25 21:00 01/19/25 22:18 Olanzapine 5 Mg Tablet PO 5 mg BID DANIEL Administration Tamsulosin HCl 0.4 mg 01/19/25 21:00 01/19/25 22:19 Tamsulosin Hcl 0.4 Mg Capsule PO 0.4 mg BEDTIME DANIEL Administration Thiamine HCl 100 mg 01/19/25 21:00 01/19/25 22:18 Thiamine Hcl 100 Mg Tablet PO 100 mg BID DANIEL Administration Trazodone HCl 50 mg 01/19/25 18:35 01/19/25 22:19 Trazodone Hcl 50 Mg Tablet PO 50 mg BEDTIME MRX1 PRN Administration Insomnia Medical Decision Making Medical Decision Making MDM Narrative: This is a 54-year-old male history of diabetes hypertension presented hospital today for evaluation of suicide ideation and visual hallucinations. Crisis team will be consulted of patient. Basic lab work will be obtained to medical screen patient. He has no medical complaints at this time. Patient is medically cleared by me. Crisis team has evaluated the patient recommended inpatient admission at this time. Lab work did show slight elevation in creatinine 1.4. This is chronic in nature around his baseline and previous lab. Differential Diagnosis Differential Diagnoses: The differential diagnosis associated with the presentation includes Hallucinations, suicide ideation, depression, schizophrenia Consult Healthcare Provider Crisis team Lab Data MDM Lab Attestation statement: I reviewed the patient's lab results. 01/19/25 15:41 01/19/25 15:41 Labs: Lab Results 01/19/25 01/19/25 Range/Units 14:46 15:41 WBC 6.9 (4.8-10.8) X10*3/uL RBC 4.78 (4.60-5.80) X10*6/uL Hgb 13.7 L D (14.0-18.0) g/dl Hct 40.6 L (42.0-52.0) % MCV 84.9 (80.0-98.0) fL MCH 28.7 (27.0-33.0) pg MCHC 33.7 (31.0-36.0) g/dl RDW 18.3 H (11.0-16.0) % Plt Count 216 (160-400) X10*3/uL MPV 10.0 (9.4-12.4) fL Immature Gran % (Auto) 0.3 (0.0-0.4) % Neut % (Auto) 62.4 (45-73) % Lymph % (Auto) 25.5 (20-40) % Starke % (Auto) 7.6 (2-11) % Eos % (Auto) 3.5 (0-4) % Baso % (Auto) 0.7 (0-2) % Lymph # (Auto) 1.8 (1.2-4.9) X10*3/uL Starke # (Auto) 0.5 (0.1-1.2) X10*3/uL Eos # (Auto) 0.2 (0.0-0.4) X10*3/uL Baso # (Auto) 0.1 (0.0-0.2) X10*3/uL Abs Immat Gran (auto) 0.02 (0.00-0.03) X10*3/uL Absolute Neuts (auto) 4.3 (2.0-8.3) x10*3/uL Absolute Nucleated RBC 0.000 (0.0-0.012) X10*3/uL Nucleated RBC % (auto) 0.0 (0.0-0.2) /100WBC Sodium 141 (135-145) mmol/L Potassium 4.5 (3.3-5.1) mmol/L Chloride 103 (96-108) mmol/L Carbon Dioxide 31 H (22-29) mmol/L Anion Gap 12 (12-20) BUN 13 (9-16) mg/dL Creatinine 1.41 H (0.5-1.4) mg/dL Estim Creat Clear Calc 61.6 Estimated GFR 52 Random Glucose 183 H (60-115) mg/dL Calcium 9.2 (8.4-10.2) mg/dL Total Bilirubin 0.5 (0.0-1.0) mg/dL AST 37 (5-37) U/L ALT 45 H (0-40) U/L Alkaline Phosphatase 90 (39-117) U/L Total Protein 7.4 (6.5-8.0) g/dL Albumin 4.2 (3.5-5.0) g/dL Urine Color Yellow Urine Appearance Clear Urine pH 8.5 (5.0-9.0) Ur Specific [place] 1.015 (1.005-1.025) Urine Protein Trace (Neg-Trace) mg/dL Urine Glucose (UA) Negative (Negative) mg/dL Urine Ketones Negative (Negative) mg/dL Urine Blood Negative (Negative) Urine Nitrite Negative (Negative) Ur Leukocyte Esterase Negative (Negative) Urine Opiates Screen Not Detected (Not Detect) Ur Buprenorphine Scrn Not Detected (Not Detect) ng/mL Ur Oxycodone Screen Not Detected (Not Detect) ng/mL Urine Methadone Screen Not Detected (Not Detect) ng/mL Urine Fentanyl Screen Not Detected (Not Detect) Ur Barbiturates Screen Not Detected (Not Detect) Ur Phencyclidine Scrn Not Detected (Not Detect) Ur Amphetamines Screen Not Detected (Not Detect) U Benzodiazepines Scrn Not Detected (Not Detect) Urine Cocaine Screen Not Detected (Not Detect) U Marijuana (THC) Screen Not Detected (Not Detect) Ethyl Alcohol < 10 mg/dL Discharge Plan Discharge Clinical Impression: Auditory hallucinations, Suicidal ideation Patient Disposition: Admitted As Inpatient Interventions: Admission Worksheet (ED) Last Done: 01/19/25 20:58 Discharge Date/Time: 01/19/25 21:52
[2025-01-19 15:04] LABS: Cannabinoid Screen Urine Not Detected (Not Detect)
[2025-01-19 15:46] LABS: Hematocrit 40.6 % (42.0-52.0); Hemoglobin 13.7 g/dl (14.0-18.0); Imm Gran Abs Auto 0.02 X10*3/uL (0.00-0.03); Imm Gran Pct Auto 0.3 % (0.0-0.4); Lymphocytes Absolute Auto 1.8 X10*3/uL (1.2-4.9); MANUAL DIFF FLAG NO; Mean Corpuscular HGB Conc 33.7 g/dl (31.0-36.0); Mean Corpuscular Hemoglobin 28.7 pg (27.0-33.0); Mean Corpuscular Volume 84.9 fL (80.0-98.0); NRBC Abs Auto 0.000 X10*3/uL (0.0-0.012); NRBC Pct Auto 0.0 /100WBC (0.0-0.2); Platelet Count 216 X10*3/uL (160-400); Red Blood Count 4.78 X10*6/uL (4.60-5.80); White Blood Count 6.9 X10*3/uL (4.8-10.8)
[2025-01-19 16:01] LABS: Alanine Aminotransferase 45 U/L (0-40); Albumin Level 4.2 g/dL (3.5-5.0); Alkaline Phosphatase 90 U/L (39-117); Anion Gap 12 (12-20); Aspartate Amino Transferase 37 U/L (5-37); Blood Urea Nitrogen 13 mg/dL (9-16); Calcium 9.2 mg/dL (8.4-10.2); Carbon Dioxide 31 mmol/L (22-29); Chloride 103 mmol/L (96-108); Creatinine Clr Calc Pharmacy 61.6; Estimated Glomerular Filt Rate 52; Potassium 4.5 mmol/L (3.3-5.1); Sodium 141 mmol/L (135-145); Total Protein 7.4 g/dL (6.5-8.0)
--- NOTE | 2025-01-19 18:06 | ECG_ITS ---
Test Reason : CHECK PROLONG QT Blood Pressure : */* mmHG Vent. Rate : 62 BPM Atrial Rate : 62 BPM P-R Int : 144 ms QRS Dur : 108 ms QT Int : 444 ms P-R-T Axes : 26 -3 34 degrees QTcB Int : 450 ms Normal sinus rhythm Moderate voltage criteria for LVH, may be normal variant ( R in aVL , Bobby product ) Borderline ECG When compared with ECG of 10-Jan-2025 12:23, No significant change was found Referred By: Melanie Aguilar Electronically Signed By: HILTON DONATO MD
--- OUTSIDE RECORDS SUMMARY | 2025-01-19 18:20 | XMS_ITS | Clinical Summary ---
Author Organization [facility] Address [address] [place] [address] Care Team Providers Care Personal Development Educator Name Role Phone Bon Arvizu MD Primary Care Provider [phone] Allergies No known active allergies Medications Ventolin [...] Orders Only [facility] [address] [address] Tashi Bonner MD from Last [...] Visit [facility] [address] [place] [address] Tashi Bonner MD [address] [address] 02/04/2025 Orders Only [facility] [address] [place] [phone] Tashi Bonner MD [address] [address] Stage 3b chronic kidney disease [...] URINE ORDERABLES Final Result Performing Organization Address City/[facility]/ZIP Co de Phone Number B[place] See order comments [place] [address] * (ABNORMAL) Albumin, urine, random (01/03/2025 9:57 [...] Bonner MD LAB URINE ORDERABLES Final Result [place] See order comments [place] [address] * (ABNORMAL) Urinalysis with microscopic (01/03/2025 9:57 AM EDT) Color Urine Yellow See orde r comments Appearance Urine Clear See order comments pH Urine >=9.0 5.0 - 9.0 See order comments Glucose Urine Negative Negative mg/dL See order comments Blood, Urine Negative Negative See ord er comments Specific [place] Urine 1.010 1.005 - 1.025 See order [...] URINE ORDERABLES Final Result Performing Organization Address City/[facility] Co de Phone Number [place]NER See order comments [place] [address] * PTH, Intact (01/03/2025 9:39 AM EDT) Parathyroid Hormone, Intact 51.4 8.7 - 77.1 pg/mL See order comments 01/03/2025 9:39 AM EDT 01/03/2025 9:39 AM EDT Tashi Bonner MD LAB HISTORICA [id number] RESULTS Final Result Performing Organization Address [facility] Co de Phone Number [place] See order comments [place] [address] * Cystatin C w/GFR (01/03/2025 9:39 AM EDT) Cystatin C 2.09 See order comments Comment: REFRENCE RANGE 0.52-1.23 MG/L Performing Sites [facility], [address], [place], [place] Enterprise Applications Manager: Malik Salmeron M.D.,PhD eGFR by Cystatin C 30 See order comments Comment: REFERENCE RANGE:>=60 mL/min/1.73mE2 Performing Sites [facility], [address], [place], [place] Enterprise Applications Manager: Malik Salmeron M.D.,PhD 01/03/2025 9:39 AM EDT 01/03/2025 9:39 AM EDT Tashi Bonner MD LAB BLOOD ORDERABLES Final Result Performing Organization Address [facility] Co de Phone Number [place]NER See order comments [place] [address] * Iron Panel (Fe, TIBC, TSAT) (01/03/2025 [...] BLOOD ORDERABLES Final Result Performing Organization Address [facility] de Phone Number [place] See order comments [place] [address] * Vitamin D 25 Hydroxy (01/03/2025 9:39 [...] order comments [place] [address] * (ABNORMAL) CBC and Differential (01/03/2025 9:39 [...] BLOOD ORDERABLES Final Result Performing Organization Address City/[facility] Co de Phone Number B[place]NER See order comments [place] [address] * (ABNORMAL) Uric Acid (01/03/2025 9:39 AM EDT) Uric Acid 8.0(H) 3.4 - 7.0 mg/dL See order comments 01/03/2025 9:39 AM EDT 01/03/2025 9:39 AM EDT Tashi Bonner MD LAB BLOOD ORDERABLES Final Result [facility] See order comments [place] [address] * Phosphorus (01/03/2025 9:39 AM EDT) Phosphorus, Serum 3.0 2.7 - 4.5 mg/dL See order comments 01/03/2025 9:39 AM EDT 01/03/2025 9:39 AM EDT us Tashi Bonner MD LAB BLOOD ORDERABLES Final Result Performing Organization Address City/State/[facility] Co de Phone Number [place] See order comments [place] [address] * (ABNORMAL) Magnesium (01/03/2025 9:39 AM EDT) Magnesium 1.5(L) 1.6 - 2.6 mg/dL See order comments 01/03/2025 9:39 AM EDT 01/03/2025 9:39 AM EDT us Tashi Bonner MD LAB BLOOD ORDERABLES Final Result Performing Organization Address [facility] de Phone Number [facility] See order comments [place] [address] * (ABNORMAL) Hemoglobin A1c (01/03/2025 9:39 AM [...] average glucose, using the formula of the [id number] Average Glucose study (ADAG), Diabetes Care, Vol.31,#8, 2007 01/03/2025 9:39 AM EDT 01/03/2025 9:39 AM EDT us Tashi Bonner MD LAB BLOOD ORDERABLES Final Result Performing Organization Address [facility] Co de Phone Number [place] See order comments [place] [address] * Ferritin (01/03/2025 9:39 AM EDT) Ferritin 39 20 - 250 ng/mL See order comments 01/03/2025 9:39 AM EDT 01/03/2025 9:39 AM EDT Tashi Bonner MD LAB BLOOD ORDERABLES Final Result [place] See order comments [place] [address] * (ABNORMAL) Basic Metabolic Panel (01/03/2025 9:39 [...] order comments [place] [address] from Last 3 Months Insurance [facility] [place] [address] Care Teams Personal Development Educator Relationship Specialty Start Date End Date Bon Arvizu MD [address] [place] [address] PCP - General Internal Medicine 06/04/22
--- OUTSIDE RECORDS SUMMARY | 2025-01-19 18:20 | XMS_ITS | Encounter Summary ---
Author Organization [facility] Address [address] [place] [address] Care Team Providers Care Integration Analyst Name Role Phone Unavailable Primary Care Provider Unavailabl e Encounter Details Date Type Department Care Team (Late st Contact Info) Description 12/23/2021 Scanned Document [facility] [address] [place] [phone] Gastroenterology, Scan Social History Tobacco Use Types [...]
--- OUTSIDE RECORDS SUMMARY | 2025-01-19 18:20 | XMS_ITS | Clinical Summary ---
Author Organization [employer] [facility] Address [address] [place] [address] [address] [place] [address] Care Team Providers Care Meat And Poultry Inspector Name Role Phone Unavailable Primary Care Provider [...] Description 10/24/2024 10:00 AM EDT Office Visit [facility] [address] [place] [address] Perez Romero DDS Dental abscess (Primary Dx); [...] Description 02/01/2025 10:00 AM EDT Office Visit [facility] [address] [place], [place] [phone] Perez Romero, DDS [address] [place], [place] [phone] Health Maintenance Due Date Last Done Comments [...] Most Recently Relevant to Health Maintenance Insurance [facility] MEDICAID STAND ADULT
--- OUTSIDE RECORDS SUMMARY | 2025-01-19 18:20 | XMS_ITS | Patient Health Record ---
Author Organization [facility] Address [address] [place] [address] Care Team Providers Care Speech Therapist Technician Name Role Phone Fox Ku MD Primary Care Provider Briana Tashi Erwin Unavailable [phone] Alisha Moore Unavailable Unavailable Allergies No Known [...] Problem Status W/U Status Risk Notes Problem 219782984 Colon cancer screening (Z12.11) Active confirmed Problem 680438574 History of adenomatous polyp of colon (Z86.010) Active confirmed Problem Diverticular disease of colon (676584385) Diverticulosis of large intestine without perforation or abscess without bleeding (K57.30) Active confirmed Problem 043572872 Gastroesophageal reflux disease without esophagitis (K21.9) Active confirmed Problem [id number] Preprocedural examination (Z01.818) Active confirmed Problem 92823170 Iron deficiency anemia, unspecified iron deficiency anemia type (D50.9) Active confirmed Plan Of Treatment Pending Test Test Name Order Date Pathology 07/13/2023 Future Test Test Name Order Date UPPER GI ENDOSCOPY 06/23/2017 COLONOSCOPY 06/23/2017 COLONOSCOPY 04/17/2023 Insurance Providers Payer Name Payer Address Payer Phone Subscriber Number Group Number Insured Name Patient Relationship to Insured Coverage Start Date Coverage End Date [facility] [address] [address] [place], [place] [id number] KIAN MAHMOOD Self - patient is the insured MEDICAID OF [facility] [address] [place] [address] [phone] [id number] KIAN MAHMOOD Self - patient is the [...] Surgery Date(Month/Year) Mass removed--Dr. Fields at [facility]-- Be nign , but had XRT 2008 Right inguinal hernia 1990 Ear tubes/Adenoids
--- OUTSIDE RECORDS SUMMARY | 2025-01-19 18:20 | XMS_ITS | Clinical Summary ---
Author Organization [facility] Address [address] [place] [address] Care Team Providers Care Bindery Manager Name Role Phone Unavailable Primary Care [...] 2020 COVID-19 Vaccine (1 - 2023- season) 2025
[2025-01-19 20:00] VITALS: BP 168/76; PULSE 59; RESP 16; TEMP 36.5; O2SAT 96
[2025-01-19 21:17] LABS: Glucose, Whole Blood 143 mg/dL (60-115)
[2025-01-19] MEDS: Albuterol Sulfate 90 MCG 8 GM INHALER 2 PUFF INHALE (22:14)
[2025-01-20 01:10] VITALS: BMI 37.7
--- NOTE | 2025-01-20 06:07 | PC.ADMIT ---
Pt is a 54 yo male admitted to unit from the pod. Arrived on floor at 2100. Legal status is CV. Pt medical issues are obesity, HTN, insomnia, DM II, asthma, CKD Stg 3, GERD, hyperlipidemia and chronic restrictive lung disease. Pt denies any etoh, substance use or tobacco use. Pt presents as flat, but did at times exhibit humor. Pt skin check revealed scar on left side of back approximately 7 inches long. and scarring on the left forward/lateral side of chest as well as BLL dry cracked heels. Pt reports that he had to move back to brothers house from his own place. Pt reports that his brother was causing increased stress for him and he was increasingly depressed. Pt's therapist suggested he come to [facility] as pt was feeling SI w/plan to run into traffic. Provider pricing consultant notified of admission and orders obtained. Pt reports feeling safe in hospital and he is on 15 minute safety checks.
[2025-01-20 08:00] VITALS: BP 114/76; PULSE 94; RESP 16; TEMP 36.5; O2SAT 93
[2025-01-20 08:07] LABS: Glucose, Whole Blood 189 mg/dL (60-115)
[2025-01-20] MEDS: Insulin Glargine,Hum.rec.anlog 100 UNIT/ML 10 ML VIAL 15 UNIT SUBCUT (08:12)
[2025-01-20 08:15] VITALS: BP 144/76
[2025-01-20] MEDS: Ferrous Sulfate 324 MG TABLET.DR PO (08:22)
[2025-01-20 08:43] LABS: Hemoglobin A1C 191.0690 umol/L; Total Hemoglobin (HGBA1C) 3480.2277 umol/L
[2025-01-20 09:03] LABS: Alanine Aminotransferase 43 U/L (0-40); Albumin Level 4.4 g/dL (3.5-5.0); Alkaline Phosphatase 97 U/L (39-117); Anion Gap 14 (12-20); Aspartate Amino Transferase 35 U/L (5-37); Blood Urea Nitrogen 16 mg/dL (9-16); Calcium 9.6 mg/dL (8.4-10.2); Carbon Dioxide 30 mmol/L (22-29); Chloride 102 mmol/L (96-108); Cholesterol 208 mg/dL (<200); Creatinine Clr Calc Pharmacy 70.4; Estimated Glomerular Filt Rate 50; HDL Cholesterol 40 mg/dL (>40); Potassium 4.5 mmol/L (3.3-5.1); Sodium 141 mmol/L (135-145); Total Protein 7.6 g/dL (6.5-8.0); Triglycerides 421 mg/dL (<150)
[2025-01-20 09:13] LABS: Free T4 (Free Thyroxine) 0.84 ng/dL (0.71-1.85); Thyroid Stimulating Hormone 2.33 uIU/mL (0.32-4.0)
[2025-01-20] MEDS: Flu Vacc TS2025-26(6mo up)/PF 0.5 ML SYRINGE IM (09:44)
[2025-01-20] MEDS: Albuterol Sulfate 90 MCG 8 GM INHALER 2 PUFF INHALE ×2 (10:43→18:30)
[2025-01-20 11:52] LABS: Glucose, Whole Blood 182 mg/dL (60-115)
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
[2025-01-20 16:55] LABS: Glucose, Whole Blood 191 mg/dL (60-115)
[2025-01-20 19:21] VITALS: BP 141/80; PULSE 85; RESP 18; TEMP 36.4; O2SAT 94
[2025-01-20 21:19] LABS: Glucose, Whole Blood 195 mg/dL (60-115)
[2025-01-21 08:00] VITALS: BP 127/60; PULSE 87; RESP 18; TEMP 36.7; O2SAT 92
[2025-01-21] MEDS: Insulin Glargine,Hum.rec.anlog 100 UNIT/ML 10 ML VIAL 15 UNIT SUBCUT (08:14)
[2025-01-21 08:16] LABS: Glucose, Whole Blood 179 mg/dL (60-115)
[2025-01-21 08:51] VITALS: BP 127/60
[2025-01-21] MEDS: Ferrous Sulfate 324 MG TABLET.DR PO (08:51)
[2025-01-21] MEDS: Albuterol Sulfate 90 MCG 8 GM INHALER 2 PUFF INHALE ×3 (09:23→22:46)
--- NOTE | 2025-01-21 09:31 | P.PNPSI_ITS ---
Subjective Subjective Date of Service: 01/21/25 Reason For Visit: SI, decomp, worsening depression Subjective Notes: [place] Warning and Conditional Voluntary Healthcare Proxy: No Guardianship: No Medical Problems Affecting Mental Status: No Interim History: Medical record and nursing notes reviewed; case discussed during rounds with team/nursing staff, and met with patient for supportive therapy/psychoeducation, as well as medication management. Continue to improve in mood, denies anxiety, depression, SI/HI/SIB/AVH. Report sleep well and good appetite. SLept for 8 hours, compliant with meds without side effects, +groups. No behavior issues.Will shower later on of today. Medication Compliance: Yes Side effects from medications: No Attending Groups: Yes Review of Systems Acute medical concerns: No Medical Review of Systems: unchanged Review of Systems Review of Systems Constitutional: Denies fatigue and Denies fever(s) Cardiovascular: Denies chest pain and Denies dyspnea Respiratory: Denies dyspnea. Has COPD and asthma. Gastrointestinal: Denies abdominal pain Psychiatric: denies suicidal ideation Endocrine: Denies fatigue Yes all other systems are reviewed and are negative Mental Status Exam Mental Status Exam Narrative: Patient is alert and oriented; behavior is cooperative, improve in anxiety and depression; patient is not in distress; dressed in casual attire with unkempt hair but adequate hygiene; mood is described as better and affect congruent; eye contact appropriate; Speech is normal rate, volume and prosody and not pressured; no psychomotor agitation/retardation present; thought process is organized and goal directed; Thought content is WNL, pertinent to relevant topics and without any delusional content, paranoid ideation or grandiosity; denies any SI/SIB/HI. Denies AH. There is no evidence of perceptual disturbance. Patient's insight and judgment improving. Diagnostics Vital Signs (24Hr): Vital Signs - 24 hr 01/20/25 19:21 01/21/25 08:00 01/21/25 08:51 Temperature 97.6 F 98.1 F Pulse Rate 85 87 Respiratory Rate 18 18 Blood Pressure 141/80 H 127/60 127/60 Pulse Oximetry 94 92 Oxygen Delivery Method Room Air Room Air BMI result Body Mass Index 37.7 Labs 01/19/25 15:41 01/20/25 08:10 Labs: Laboratory Results - last 48 hr 01/19/25 01/19/25 01/19/25 14:46 15:41 21:11 WBC 6.9 RBC 4.78 Hgb 13.7 L D Hct 40.6 L MCV 84.9 MCH 28.7 MCHC 33.7 RDW 18.3 H Plt Count 216 MPV 10.0 Immature Gran % (Auto) 0.3 Neut % (Auto) 62.4 Lymph % (Auto) 25.5 [place] % (Auto) 7.6 Eos % (Auto) 3.5 Baso % (Auto) 0.7 Lymph # (Auto) 1.8 [place] # (Auto) 0.5 Eos # (Auto) 0.2 Baso # (Auto) 0.1 Abs Immat Gran (auto) 0.02 Absolute Neuts (auto) 4.3 Absolute Nucleated RBC 0.000 Nucleated RBC % (auto) 0.0 Sodium 141 Potassium 4.5 Chloride 103 Carbon Dioxide 31 H Anion Gap 12 BUN 13 Creatinine 1.41 H Estim Creat Clear Calc 61.6 Estimated GFR 52 POC Glucose 143 H Random Glucose 183 H Estimat Average Glucose Hemoglobin A1c % Calcium 9.2 Total Bilirubin 0.5 AST 37 ALT 45 H Alkaline Phosphatase 90 Total Protein 7.4 Albumin 4.2 Triglycerides Cholesterol LDL Cholesterol, Calc HDL Cholesterol TSH Free T4 Urine Color Yellow Urine Appearance Clear Urine pH 8.5 Ur Specific [place] 1.015 Urine Protein Trace Urine Glucose (UA) Negative Urine Ketones Negative Urine Blood Negative Urine Nitrite Negative Ur Leukocyte Esterase Negative Urine Opiates Screen Not Detected Ur Buprenorphine Scrn Not Detected Ur Oxycodone Screen Not Detected Urine Methadone Screen Not Detected Urine Fentanyl Screen Not Detected Ur Barbiturates Screen Not Detected Ur Phencyclidine Scrn Not Detected Ur Amphetamines Screen Not Detected U Benzodiazepines Scrn Not Detected Urine Cocaine Screen Not Detected U Marijuana (THC) Screen Not Detected Ethyl Alcohol < 10 01/20/25 01/20/25 01/20/25 08:02 08:10 11:45 WBC RBC Hgb Hct MCV MCH MCHC RDW Plt Count MPV Immature Gran % (Auto) Neut % (Auto) Lymph % (Auto) [place] % (Auto) Eos % (Auto) Baso % (Auto) Lymph # (Auto) [place] # (Auto) Eos # (Auto) Baso # (Auto) Abs Immat Gran (auto) Absolute Neuts (auto) Absolute Nucleated RBC Nucleated RBC % (auto) Sodium 141 Potassium 4.5 Chloride 102 Carbon Dioxide 30 H Anion Gap 14 BUN 16 Creatinine 1.46 H Estim Creat Clear Calc 70.4 Estimated GFR 50 POC Glucose 189 H 182 H Random Glucose 182 H Estimat Average Glucose 160 Hemoglobin A1c % 7.2 H Calcium 9.6 Total Bilirubin 0.6 AST 35 ALT 43 H Alkaline Phosphatase 97 Total Protein 7.6 Albumin 4.4 Triglycerides 421 H Cholesterol 208 H LDL Cholesterol, Calc TNP HDL Cholesterol 40 L TSH 2.33 Free T4 0.84 Urine Color Urine Appearance Urine pH Ur Specific [place] Urine Protein Urine Glucose (UA) Urine Ketones Urine Blood Urine Nitrite Ur Leukocyte Esterase Urine Opiates Screen Ur Buprenorphine Scrn Ur Oxycodone Screen Urine Methadone Screen Urine Fentanyl Screen Ur Barbiturates Screen Ur Phencyclidine Scrn Ur Amphetamines Screen U Benzodiazepines Scrn Urine Cocaine Screen U Marijuana (THC) Screen Ethyl Alcohol 01/20/25 01/20/25 01/21/25 16:48 21:11 08:02 WBC RBC Hgb Hct MCV MCH MCHC RDW Plt Count MPV Immature Gran % (Auto) Neut % (Auto) Lymph % (Auto) [place] % (Auto) Eos % (Auto) Baso % (Auto) Lymph # (Auto) [place] # (Auto) Eos # (Auto) Baso # (Auto) Abs Immat Gran (auto) Absolute Neuts (auto) Absolute Nucleated RBC Nucleated RBC % (auto) Sodium Potassium Chloride Carbon Dioxide Anion Gap BUN Creatinine Estim Creat Clear Calc Estimated GFR POC Glucose 191 H 195 H 179 H Random Glucose Estimat Average Glucose Hemoglobin A1c % Calcium Total Bilirubin AST ALT Alkaline Phosphatase Total Protein Albumin Triglycerides Cholesterol LDL Cholesterol, Calc HDL Cholesterol TSH Free T4 Urine Color Urine Appearance Urine pH Ur Specific [place] Urine Protein Urine Glucose (UA) Urine Ketones Urine Blood Urine Nitrite Ur Leukocyte Esterase Urine Opiates Screen Ur Buprenorphine Scrn Ur Oxycodone Screen Urine Methadone Screen Urine Fentanyl Screen Ur Barbiturates Screen Ur Phencyclidine Scrn Ur Amphetamines Screen U Benzodiazepines Scrn Urine Cocaine Screen U Marijuana (THC) Screen Ethyl Alcohol Medications Medications Current Medications Acetaminophen (Acetaminophen 325 Mg Tablet) 650 mg PO Q6H PRN PRN Reason: Headache/Pain, Scale 1-10 Al Hydroxide/Mg Hydroxide (Magnesium Hydrox/Alum Hydrox 30 Ml Oral.Susp) 30 ml PO Q6H PRN PRN Reason: Heartburn/Nausea Albuterol Sulfate (Albuterol Sulfate 90 Mcg 8 Gm Inhaler) 2 puff INHALE RQ4H PRN PRN Reason: for wheezing Last Admin: 01/21/25 09:23 Dose: 2 puff Atorvastatin Calcium (Atorvastatin Calcium 40 Mg Tablet) 40 mg PO DAILY [facility] Last Admin: 01/21/25 08:51 Dose: 40 mg Dextrose (Dextrose 50 % 25 Gm/50 Ml Syringe) 25 gm IVPUSH Q15M PRN; Protocol PRN Reason: per Hypoglycemia Standing Ord. Escitalopram Oxalate (Escitalopram Oxalate 20 Mg Tablet) 20 mg PO DAILY [facility] Last Admin: 01/21/25 08:51 Dose: 20 mg Ferrous Sulfate (Ferrous Sulfate 324 Mg Tablet.Dr) 324 mg PO DAILY [facility] Last Admin: 01/21/25 08:51 Dose: 324 mg Glucose (Glucose Gel 15 Gm Gel..Gram.) 15 gm PO Q15M PRN; Protocol PRN Reason: per Hypoglycemia Standing Ord. Hydroxyzine HCl (Hydroxyzine Hcl 25 Mg Tablet) 25 mg PO Q6H PRN PRN Reason: mild anxiety Hydroxyzine HCl (Hydroxyzine Hcl 25 Mg Tablet) 25 mg PO TID PRN PRN Reason: Anxiety Insulin Glargine (Insulin Glargine,Hum.Rec.Anlog 100 Unit/Ml 10 Ml Vial) 15 unit SUBCUT DAILY [facility] Last Admin: 01/21/25 08:14 Dose: 15 unit Insulin Human Lispro (Insulin Lispro 100 Unit/Ml 3 Ml Vial) 0 unit SUBCUT QIDACHS [facility]; Protocol Last Admin: 01/21/25 08:17 Dose: 2 unit Losartan Potassium (Losartan Potassium 25 Mg Tablet) 25 mg PO DAILY [facility]; Protocol Last Admin: 01/21/25 08:51 Dose: 25 mg Magnesium Hydroxide (Milk Of Magnesia 30 Ml Oral.Susp) 30 ml PO DAILY PRN PRN Reason: Constipation Metformin HCl (Metformin Hcl 1,000 Mg Tablet) 1,000 mg PO BID [facility] Last Admin: 01/21/25 08:51 Dose: 1,000 mg Nicotine (Nicotine 21 Mg Patch.Td24) 21 mg TRANSDERMA DAILY PRN PRN Reason: nicotine craving Nicotine Polacrilex (Nicotine Polacrilex 2 Mg Gum) 2 mg BUCCAL Q2H PRN PRN Reason: Nicotine Cravings Olanzapine (Olanzapine 5 Mg Tablet) 5 mg PO BID PRN PRN Reason: agitation Olanzapine (Olanzapine 5 Mg Tablet) 5 mg PO BID [facility] Last Admin: 01/21/25 08:51 Dose: 5 mg Omeprazole (Omeprazole 40 Mg Capsule.Dr) 40 mg PO DAILY [facility] Last Admin: 01/21/25 08:51 Dose: 40 mg Ondansetron HCl (Ondansetron Odt 4 Mg Tab.Rapdis) 4 mg TRANSLINGU Q8H PRN PRN Reason: Nausea and Vomiting Tamsulosin HCl (Tamsulosin Hcl 0.4 Mg Capsule) 0.4 mg PO BEDTIME [facility] Last Admin: 01/20/25 21:41 Dose: 0.4 mg Thiamine HCl (Thiamine Hcl 100 Mg Tablet) 100 mg PO BID [facility] Last Admin: 01/21/25 08:51 Dose: 100 mg Trazodone HCl (Trazodone Hcl 50 Mg Tablet) 50 mg PO BEDTIME MRX1 PRN PRN Reason: Insomnia Last Admin: 01/20/25 21:42 Dose: 50 mg Vitamin D (Cholecalciferol (Vitamin D3) 25 Mcg Tablet) 50 mcg PO DAILY [facility] Last Admin: 01/21/25 08:51 Dose: 50 mcg Allergies Allergies Allergy/AdvReac Type Severity Reaction Status Date / Time pollen extracts (POLLEN) Allergy Mild RUNNY NOSE Verified 01/19/25 14:33 cat dander (CATS) Allergy Unknown UNKNOWN Verified 01/19/25 14:33 dog dander (DOGS) Allergy Unknown UNKNOWN Verified 01/19/25 14:33 mold (MOLD) Allergy Unknown UNKNOWN Verified 01/19/25 14:33 lactose AdvReac Abdominal Verified 01/19/25 14:33 Pain Assessment & Plan Assessment & Plan (1) MDD (major depressive disorder), recurrent episode: Status: Acute Code(s): F33.9 - Major depressive disorder, recurrent, unspecified (2) Auditory hallucinations: Status: Acute Code(s): R44.0 - Auditory hallucinations (3) Hyperlipidemia: Qualifiers: Hyperlipidemia type: unspecified Qualified Code(s): E78.5 - Hyperlipidemia, unspecified Status: Acute Code(s): E78.5 - Hyperlipidemia, unspecified (4) Benign essential hypertension: Status: Acute Code(s): I10 - Essential (primary) hypertension (5) Suicidal ideation: Status: Acute Code(s): R45.851 - Suicidal ideations Plan HPI: Patient is a 54 yo single Somali-speaking male with history of mood disorder, anxiety, depression, HTN, CKD, Asthma, COPD, HLD, DM presents to [facility] via EMS stating that he was contacted the request of his therapist. The therapist concern about his suicidal ideation with plan and intent. Increase helpless and hopelessness caring for his needs appropriately due to increased depression symptoms. Patient also reports experience hallucinations. Increase environmental such as he had to move into his brother's after he most recent hospitalization his house were condemned. Feeling pressure from timely requesting to obtain employment and secure new housing. Formulation/clinical reasoning: Continue report passive SI, and CAH, increasing in depression and anxiety with environmental changes and pressure from family. Noted cognitive impaired. Hx of depression, and anxiety. Given above information, patient would benefit from restrictive enviroment for safety, medication adjustment to target depression and hallucination symptoms, provide therapeutic environment coping skills, and refer patient back to outpatient provider services for aftercare. Hospital course: 01/20/25: Continue with home medication. Monitor for hyper and hypoglycemic, monitor for blood pressure. Patient could be benefit [place] assessment as he has some cognitive impairment which can be affect his daily function/decision- making. Encourage group participation, daily ADLs and compliant with medications 01/21/25: Continue to improve in mood, denies anxiety, depression, SI/HI/SIB/AVH. Report sleep well and good appetite. SLept for 8 hours, compliant with meds without side effects, +groups. No behavior issues.Will shower later on of today. Elevated lipid profile. Continue with tx plan. No change. Plan Patient on 15 minute checks for safety. Admitted to [facility]. Work with treatment team to do collateral and FLU appointments for aftercare. Patient has OP team that he sees them often. No psychiatrist: open to obtain one. Will touch baseline with OT if Yancey assessment done in the past. Patient educated on: diagnosis, medication risk/benefits and therapeutic strategies Informed Consent: understands and further education needed Reason for continued inpatient stay Substantial Risk for: med/psych decompensation Time Spent With Patient Time: Total time managing care of this patient today ____ minutes.
[2025-01-21 12:01] LABS: Glucose, Whole Blood 171 mg/dL (60-115)
[2025-01-21 16:43] LABS: Glucose, Whole Blood 157 mg/dL (60-115)
[2025-01-21 19:28] VITALS: BP 112/60; PULSE 90; RESP 18; TEMP 37; O2SAT 93
[2025-01-21] MEDS: Magnesium Hydrox/Alum Hydrox 30 ML ORAL.SUSP PO (19:59)
[2025-01-21 20:24] LABS: Glucose, Whole Blood 217 mg/dL (60-115)
--- NOTE | 2025-01-21 23:09 | PC.NURSE ---
Pt was too nauseous to take scheduled hs meds. Pt was given zofran with no effect. Will continue to monitor pt.
[2025-01-22 07:59] LABS: Glucose, Whole Blood 184 mg/dL (60-115)
[2025-01-22 08:00] VITALS: BP 119/56; PULSE 80; RESP 24; TEMP 36.7; O2SAT 88
[2025-01-22] MEDS: Insulin Glargine,Hum.rec.anlog 100 UNIT/ML 10 ML VIAL 15 UNIT SUBCUT (08:04)
[2025-01-22 08:22] VITALS: O2SAT 94
[2025-01-22 09:08] VITALS: BP 119/66
[2025-01-22] MEDS: Ferrous Sulfate 324 MG TABLET.DR PO (09:11)
[2025-01-22] MEDS: Albuterol Sulfate 90 MCG 8 GM INHALER 2 PUFF INHALE ×2 (09:28→19:00)
[2025-01-22 12:02] LABS: Glucose, Whole Blood 197 mg/dL (60-115)
[2025-01-22 16:46] LABS: Glucose, Whole Blood 155 mg/dL (60-115)
[2025-01-22 20:00] VITALS: BP 137/73; PULSE 88; RESP 16; TEMP 36.9; O2SAT 94
[2025-01-22 20:33] LABS: Glucose, Whole Blood 209 mg/dL (60-115)
--- NOTE | 2025-01-22 22:54 | HO.PSYCHPN ---
Subjective Subjective Date of Service: 01/22/25 Reason For Visit: SI, decomp, worsening depression Subjective Notes: Conditional Voluntary Healthcare Proxy: No Guardianship: No Medical Problems Affecting Mental Status: No Interim History: Medical record and nursing notes reviewed; case discussed during rounds with team/nursing staff, and met with patient for supportive therapy/psychoeducation, as well as medication management. Patient slept for 8 hours, reports feeling better today. He refused medication yesterday in the evening due to not feeling well in the stomach. Patient received Zofran and Maalox for nauseous/discomfort. He is more isolated to his room today, but he is more in late in the afternoon. Denies safety concerns. Denies hallucinations. Continued to encourage patient to compliant with medication consistently Medication Compliance: No (Refused meds last night d/t stomach pain ) Side effects from medications: No Attending Groups: Intermittent Review of Systems Acute medical concerns: No Medical Review of Systems: unchanged Review of Systems Review of Systems Constitutional: Denies fatigue and Denies fever(s) Cardiovascular: Denies chest pain and Denies dyspnea Respiratory: Denies dyspnea. Has COPD and asthma. Gastrointestinal: Denies abdominal pain Psychiatric: denies suicidal ideation Endocrine: Denies fatigue Yes all other systems are reviewed and are negative Mental Status Exam Mental Status Exam Narrative: Patient is alert and oriented; behavior is cooperative, improve in anxiety and depression; patient is not in distress; dressed in casual attire with unkempt hair but adequate hygiene; mood is described as better and affect congruent; eye contact appropriate; Speech is normal rate, volume and prosody and not pressured; no psychomotor agitation/retardation present; thought process is organized and goal directed; Thought content is WNL, pertinent to relevant topics and without any delusional content, paranoid ideation or grandiosity; denies any SI/SIB/HI. Denies AH. There is no evidence of perceptual disturbance. Patient's insight and judgment improving. Diagnostics Vital Signs (24Hr): Vital Signs - 24 hr 01/22/25 08:00 01/22/25 08:22 01/22/25 09:08 Temperature 98.1 F Pulse Rate 80 Respiratory Rate 24 H Blood Pressure 119/56 L 119/66 Pulse Oximetry 88 L 94 Oxygen Delivery Method Room Air Room Air 01/22/25 20:00 Temperature 98.4 F Pulse Rate 88 Respiratory Rate 16 Blood Pressure 137/73 Pulse Oximetry 94 Oxygen Delivery Method Room Air BMI result Body Mass Index 37.7 Labs 01/19/25 15:41 01/20/25 08:10 Labs: Laboratory Results - last 48 hr 01/21/25 01/21/25 01/21/25 08:02 11:55 16:38 POC Glucose 179 H 171 H 157 H 01/21/25 01/22/25 01/22/25 20:18 07:44 11:54 POC Glucose 217 H 184 H 197 H 01/22/25 01/22/25 16:35 20:28 POC Glucose 155 H 209 H Medications Medications Current Medications Acetaminophen (Acetaminophen 325 Mg Tablet) 650 mg PO Q6H PRN PRN Reason: Headache/Pain, Scale 1-10 Al Hydroxide/Mg Hydroxide (Magnesium Hydrox/Alum Hydrox 30 Ml Oral.Susp) 30 ml PO Q6H PRN PRN Reason: Heartburn/Nausea Last Admin: 01/21/25 19:59 Dose: 30 ml Albuterol Sulfate (Albuterol Sulfate 90 Mcg 8 Gm Inhaler) 2 puff INHALE RQ4H PRN PRN Reason: for wheezing Last Admin: 01/22/25 19:00 Dose: 2 puff Atorvastatin Calcium (Atorvastatin Calcium 40 Mg Tablet) 40 mg PO DAILY [facility] Last Admin: 01/22/25 09:11 Dose: 40 mg Dextrose (Dextrose 50 % 25 Gm/50 Ml Syringe) 25 gm IVPUSH Q15M PRN; Protocol PRN Reason: per Hypoglycemia Standing Ord. Escitalopram Oxalate (Escitalopram Oxalate 20 Mg Tablet) 20 mg PO DAILY [facility] Last Admin: 01/22/25 09:09 Dose: 20 mg Ferrous Sulfate (Ferrous Sulfate 324 Mg Tablet.) 324 mg PO DAILY [facility] Last Admin: 01/22/25 09:11 Dose: 324 mg Glucose (Glucose Gel 15 Gm Gel..Gram.) 15 gm PO Q15M PRN; Protocol PRN Reason: per Hypoglycemia Standing Ord. Hydroxyzine HCl (Hydroxyzine Hcl 25 Mg Tablet) 25 mg PO Q6H PRN PRN Reason: mild anxiety Hydroxyzine HCl (Hydroxyzine Hcl 25 Mg Tablet) 25 mg PO TID PRN PRN Reason: Anxiety Insulin Glargine (Insulin Glargine,Hum.Rec.Anlog 100 Unit/Ml 10 Ml Vial) 15 unit SUBCUT DAILY [facility] Last Admin: 01/22/25 08:04 Dose: 15 unit Insulin Human Lispro (Insulin Lispro 100 Unit/Ml 3 Ml Vial) 0 unit SUBCUT QIDACHS [facility]; Protocol Last Admin: 01/22/25 21:00 Dose: 4 unit Losartan Potassium (Losartan Potassium 25 Mg Tablet) 25 mg PO DAILY [facility]; Protocol Last Admin: 01/22/25 09:08 Dose: 25 mg Magnesium Hydroxide (Milk Of Magnesia 30 Ml Oral.Susp) 30 ml PO DAILY PRN PRN Reason: Constipation Metformin HCl (Metformin Hcl 1,000 Mg Tablet) 1,000 mg PO BID [facility] Last Admin: 01/22/25 21:06 Dose: 1,000 mg Nicotine (Nicotine 21 Mg Patch.Td24) 21 mg TRANSDERMA DAILY PRN PRN Reason: nicotine craving Nicotine Polacrilex (Nicotine Polacrilex 2 Mg Gum) 2 mg BUCCAL Q2H PRN PRN Reason: Nicotine Cravings Olanzapine (Olanzapine 5 Mg Tablet) 5 mg PO BID PRN PRN Reason: agitation Olanzapine (Olanzapine 5 Mg Tablet) 5 mg PO BID [facility] Last Admin: 01/22/25 21:07 Dose: 5 mg Omeprazole (Omeprazole 40 Mg Capsule.Dr) 40 mg PO DAILY [facility] Last Admin: 01/22/25 09:09 Dose: 40 mg Ondansetron HCl (Ondansetron Odt 4 Mg Tab.Rapdis) 4 mg TRANSLINGU Q8H PRN PRN Reason: Nausea and Vomiting Last Admin: 01/21/25 22:20 Dose: 4 mg Tamsulosin HCl (Tamsulosin Hcl 0.4 Mg Capsule) 0.4 mg PO BEDTIME [facility] Last Admin: 01/22/25 21:02 Dose: 0.4 mg Thiamine HCl (Thiamine Hcl 100 Mg Tablet) 100 mg PO BID [facility] Last Admin: 01/22/25 21:02 Dose: 100 mg Trazodone HCl (Trazodone Hcl 50 Mg Tablet) 50 mg PO BEDTIME MRX1 PRN PRN Reason: Insomnia Last Admin: 01/20/25 21:42 Dose: 50 mg Vitamin D (Cholecalciferol (Vitamin D3) 25 Mcg Tablet) 50 mcg PO DAILY [facility] Last Admin: 01/22/25 09:10 Dose: 50 mcg Allergies Allergies Allergy/AdvReac Type Severity Reaction Status Date / Time pollen extracts (POLLEN) Allergy Mild RUNNY NOSE Verified 01/19/25 14:33 cat dander (CATS) Allergy Unknown UNKNOWN Verified 01/19/25 14:33 dog dander (DOGS) Allergy Unknown UNKNOWN Verified 01/19/25 14:33 mold (MOLD) Allergy Unknown UNKNOWN Verified 01/19/25 14:33 lactose AdvReac Abdominal Verified 01/19/25 14:33 Pain Assessment & Plan Assessment & Plan (1) MDD (major depressive disorder), recurrent episode: Status: Acute Code(s): F33.9 - Major depressive disorder, recurrent, unspecified (2) Auditory hallucinations: Status: Acute Code(s): R44.0 - Auditory hallucinations (3) Hyperlipidemia: Qualifiers: Hyperlipidemia type: unspecified Qualified Code(s): E78.5 - Hyperlipidemia, unspecified Status: Acute Code(s): E78.5 - Hyperlipidemia, unspecified (4) Benign essential hypertension: Status: Acute Code(s): I10 - Essential (primary) hypertension (5) Suicidal ideation: Status: Acute Code(s): R45.851 - Suicidal ideations Plan HPI: Patient is a 54 yo single Ghanaian-speaking male with history of mood disorder, anxiety, depression, HTN, CKD, Asthma, COPD, HLD, DM presents to [facility] via EMS stating that he was contacted the request of his therapist. The therapist concern about his suicidal ideation with plan and intent. Increase helpless and hopelessness caring for his needs appropriately due to increased depression symptoms. Patient also reports experience hallucinations. Increase environmental such as he had to move into his brother's after he most recent hospitalization his house were condemned. Feeling pressure from timely requesting to obtain employment and secure new housing. Formulation/clinical reasoning: Continue report passive SI, and CAH, increasing in depression and anxiety with environmental changes and pressure from family. Noted cognitive impaired. Hx of depression, and anxiety. Given above information, patient would benefit from restrictive enviroment for safety, medication adjustment to target depression and hallucination symptoms, provide therapeutic environment coping skills, and refer patient back to outpatient provider services for aftercare. Hospital course: 01/20/25: Continue with home medication. Monitor for hyper and hypoglycemic, monitor for blood pressure. Patient could be benefit [place] assessment as he has some cognitive impairment which can be affect his daily function/decision-making. Encourage group participation, daily ADLs and compliant with medications 01/21/25: Continue to improve in mood, denies anxiety, depression, SI/HI/SIB/AVH. Report sleep well and good appetite. SLept for 8 hours, compliant with meds without side effects, +groups. No behavior issues.Will shower later on of today. Elevated lipid profile. Continue with tx plan. No change. 01/22/25: Patient slept for 8 hours, reports feeling better today. He refused medication yesterday in the evening due to not feeling well in the stomach. Patient received Zofran and Maalox for nauseous/discomfort. He is more isolated to his room today, but he is more in late in the afternoon. Denies safety concerns. Denies hallucinations. Continued to encourage patient to compliant with medication consistently Plan Patient on 15 minute checks for safety. Admitted to [facility]. Work with treatment team to do collateral and FLU appointments for aftercare. Patient has OP team that he sees them often. No psychiatrist: open to obtain one. Will touch baseline with OT if Napoleon assessment done in the past. Reason for continued inpatient stay Substantial Risk for: med/psych decompensation Time Spent With Patient Time: Total time managing care of this patient today ____ minutes.
[2025-01-23 07:30] VITALS: BP 162/75; PULSE 76; RESP 18; TEMP 36.3; O2SAT 95
[2025-01-23 07:45] LABS: Glucose, Whole Blood 170 mg/dL (60-115)
[2025-01-23] MEDS: Insulin Glargine,Hum.rec.anlog 100 UNIT/ML 10 ML VIAL 15 UNIT SUBCUT (08:29)
[2025-01-23 09:22] VITALS: BP 139/74
[2025-01-23] MEDS: Ferrous Sulfate 324 MG TABLET.DR PO (09:24)
[2025-01-23] MEDS: Albuterol Sulfate 90 MCG 8 GM INHALER 2 PUFF INHALE ×3 (09:29→20:24)
[2025-01-23 11:54] LABS: Glucose, Whole Blood 137 mg/dL (60-115)
--- NOTE | 2025-01-23 13:34 | P.CONHOSP_ITS ---
History of Present Illness Data of Consult Service Date: 01/23/25 Primary Care Provider: Bon Arvizu MD HPI Reason for consult: Medical management 54-year-old male with a past medical history of MDD, CAITE, auditory halliucinations, mood disorder, CKD, asthma, Chronic restrictive lung disease, hypertension, hyperlipidemia, type 2 diabetes, GERD, and BPH was brought in by ambulance from his counselor's office with a plan for suicidal ideation. He is admitted to inpatient psych for further care and treatment. Patient was seen and examined denies any shortness of breath, CP, abdominal pain, dysuria or constipation. or any other concerning symptoms. Patient reports feeling lightheaded on occasion. His blood pressures have been stable. Blood glucose readings ranging 100-200's. Review of Systems 2 Review of Systems: Denies any shortness of breath, chest pain, abdominal pain or discomfort, nausea vomiting or diarrhea PMFSH Medical History Suicidal ideation Situational crisis Suicidal ideation Psychosis Chest pain Recurrent major depression Allergic rhinitis Insomnia Palpitations Vitamin D deficiency Chronic kidney disease, stage III (moderate) GERD without esophagitis Restrictive lung disease Obesity (BMI 30-39.9) Benign essential hypertension Pure hypercholesterolemia Diabetes mellitus Pulmonary emboli Chondrosarcoma Hyperlipidemia Chronic restrictive lung disease COPD (chronic obstructive pulmonary disease) Asthma Family History Father Hypertension Kidney failure, acute Mother Lung cancer Family/Other Diabetes Surgical History History of esophagogastroduodenoscopy (EGD) H/O colonoscopy History of inguinal hernia repair Hx of exploratory thoracotomy H/O tooth extraction Social History Household Members: Other Household Members Other:: brother Housing: Unknown / Unable to assess Do you presently have visiting nurse or other home services: No Alcohol intake: former Patient Tobacco Use Status: Never used Tobacco Smoked in Last 30 Days: No e-Cigarette/Vaping Use: Never Used Second Hand Smoke Exposure: No Use of substances other than those prescribed or required for medical reasons: No Currently Displaying Signs/Symptoms of Drug Intoxication Withdrawal: No Have you been hit, kicked, punched, or otherwise hurt by someone within the past year? If so, by whom?: No Do you feel safe in your current relationship?: No Current Relationship Is there a partner from a previous relationship who is making you feel unsafe now?: No Are you made to feel afraid or neglected: No Advance Directives: Yes Advance Directives on File: Yes Advance Directives Date on File: 10/25/15 Do you have thoughts of harming others: None Do you have a plan to hurt others: No Plan Recently lost weight without trying: No How much weight loss: Not applicable Eating poorly because of decreased appetite: No Nutrition screen score: 0 Nutrition Risks: No Nutritional Risk service: No Current occupational status: unemployed Sexual orientation: Straight/Heterosexual Cognitive needs: No Hearing needs: No Vision needs: Yes (Glasses) Meds Allergies Allergy/AdvReac Type Severity Reaction Status Date / Time pollen extracts (POLLEN) Allergy Mild RUNNY NOSE Verified 01/19/25 14:33 cat dander (CATS) Allergy Unknown UNKNOWN Verified 01/19/25 14:33 dog dander (DOGS) Allergy Unknown UNKNOWN Verified 01/19/25 14:33 mold (MOLD) Allergy Unknown UNKNOWN Verified 01/19/25 14:33 lactose AdvReac Abdominal Verified 01/19/25 14:33 Pain Active Medications: Current Medications Acetaminophen (Acetaminophen 325 Mg Tablet) 650 mg PO Q6H PRN PRN Reason: Headache/Pain, Scale 1-10 Al Hydroxide/Mg Hydroxide (Magnesium Hydrox/Alum Hydrox 30 Ml Oral.Susp) 30 ml PO Q6H PRN PRN Reason: Heartburn/Nausea Last Admin: 01/21/25 19:59 Dose: 30 ml Albuterol Sulfate (Albuterol Sulfate 90 Mcg 8 Gm Inhaler) 2 puff INHALE RQ4H PRN PRN Reason: for wheezing Last Admin: 01/23/25 09:29 Dose: 2 puff Atorvastatin Calcium (Atorvastatin Calcium 40 Mg Tablet) 40 mg PO DAILY [facility] Last Admin: 01/23/25 09:24 Dose: 40 mg Dextrose (Dextrose 50 % 25 Gm/50 Ml Syringe) 25 gm IVPUSH Q15M PRN; Protocol PRN Reason: per Hypoglycemia Standing Ord. Escitalopram Oxalate (Escitalopram Oxalate 20 Mg Tablet) 20 mg PO DAILY [facility] Last Admin: 01/23/25 09:22 Dose: 20 mg Ferrous Sulfate (Ferrous Sulfate 324 Mg Tablet.) 324 mg PO DAILY [facility] Last Admin: 01/23/25 09:24 Dose: 324 mg Glucose (Glucose Gel 15 Gm Gel..Gram.) 15 gm PO Q15M PRN; Protocol PRN Reason: per Hypoglycemia Standing Ord. Hydroxyzine HCl (Hydroxyzine Hcl 25 Mg Tablet) 25 mg PO Q6H PRN PRN Reason: mild anxiety Hydroxyzine HCl (Hydroxyzine Hcl 25 Mg Tablet) 25 mg PO TID PRN PRN Reason: Anxiety Insulin Glargine (Insulin Glargine,Hum.Rec.Anlog 100 Unit/Ml 10 Ml Vial) 15 unit SUBCUT DAILY [facility] Last Admin: 01/23/25 08:29 Dose: 15 unit Insulin Human Lispro (Insulin Lispro 100 Unit/Ml 3 Ml Vial) 0 unit SUBCUT QIDACHS [facility]; Protocol Last Admin: 01/23/25 12:09 Dose: Not Given Losartan Potassium (Losartan Potassium 25 Mg Tablet) 25 mg PO DAILY [facility]; Protocol Last Admin: 01/23/25 09:22 Dose: 25 mg Magnesium Hydroxide (Milk Of Magnesia 30 Ml Oral.Susp) 30 ml PO DAILY PRN PRN Reason: Constipation Metformin HCl (Metformin Hcl 1,000 Mg Tablet) 1,000 mg PO BID [facility] Last Admin: 01/23/25 09:24 Dose: 1,000 mg Nicotine (Nicotine 21 Mg Patch.Td24) 21 mg TRANSDERMA DAILY PRN PRN Reason: nicotine craving Nicotine Polacrilex (Nicotine Polacrilex 2 Mg Gum) 2 mg BUCCAL Q2H PRN PRN Reason: Nicotine Cravings Olanzapine (Olanzapine 5 Mg Tablet) 5 mg PO BID PRN PRN Reason: agitation Olanzapine (Olanzapine 5 Mg Tablet) 5 mg PO BID [facility] Last Admin: 01/23/25 09:22 Dose: 5 mg Omeprazole (Omeprazole 40 Mg Capsule.) 40 mg PO DAILY [facility] Last Admin: 01/23/25 09:22 Dose: 40 mg Ondansetron HCl (Ondansetron Odt 4 Mg Tab.Rapdis) 4 mg TRANSLINGU Q8H PRN PRN Reason: Nausea and Vomiting Last Admin: 01/21/25 22:20 Dose: 4 mg Tamsulosin HCl (Tamsulosin Hcl 0.4 Mg Capsule) 0.4 mg PO BEDTIME [facility] Last Admin: 01/22/25 21:02 Dose: 0.4 mg Thiamine HCl (Thiamine Hcl 100 Mg Tablet) 100 mg PO BID [facility] Last Admin: 01/23/25 09:24 Dose: 100 mg Trazodone HCl (Trazodone Hcl 50 Mg Tablet) 50 mg PO BEDTIME MRX1 PRN PRN Reason: Insomnia Last Admin: 01/20/25 21:42 Dose: 50 mg Vitamin D (Cholecalciferol (Vitamin D3) 25 Mcg Tablet) 50 mcg PO DAILY [facility] Last Admin: 01/23/25 09:24 Dose: 50 mcg Home Medications ?Medication ?Instructions ?Recorded ?Confirmed ?Last Taken ?Type losartan 25 mg tablet 25 mg PO DAILY 09/13/2401/0901/18/25 History cholecalciferol (vitamin D3) 50 50 mcg PO DAILY 01/19/25 01/18/25 History mcg (2,000 unit) capsule thiamine HCl (vitamin B1) 100 mg 100 mg PO BID 5 01/19/25 01/18/25 History tablet Physical Exam 2 Vital Signs and Narrative: Vital Signs: Last Vital Signs Temp 97.4 F 01/23/25 07:30 Pulse 76 01/23/25 07:30 Resp 18 01/23/25 07:30 BP 139/74 01/23/25 09:22 Pulse Ox 95 01/23/25 07:30 O2 Del Method Room Air 01/23/25 07:30 BMI result Body Mass Index 37.7 CONST: Alert and oriented, in NAD. Well nourished HEENT: Normocephalic, atraumatic, MMM, Eyes clear, Neck supple RESP: Lungs clear, RRR even and regular HEART:,RRR, S1, S2. No edema GI:Abdomen Soft NT, ND. + BS times four :Deferred SKIN: Warm dry and intact, no visible lesions or rashes NEURO:CN II-XII Intact bilaterally, Sensation intact. Speech clear PSYCH: Normal affect Results Labs 01/19/25 15:41 01/20/25 08:10 Labs: Laboratory Results - last 24 hr 01/22/25 01/22/25 01/23/25 16:35 20:28 07:40 POC Glucose 155 H 209 H 170 H 01/23/25 11:50 POC Glucose 137 H Assessment and Plan (1) Diabetes mellitus: Qualifiers: Diabetes mellitus complication status: with hyperglycemia Diabetes mellitus long term care social worker insulin use: without long term care social worker use Diabetes mellitus type: t ype 2 Qualified Code(s): E11.65 - Type 2 diabetes mellitus with hyperglycemia Status: Acute Plan 54-year-old male with past medical history of CKD, asthma, Chronic restrictive lung disease, JOSUE, hypertension, hyperlipidemia, type 2 diabetes, GERD, and BPH admitted to inpatient psych from his counselor's office reporting suicidal ideation and auditory hallucinations. 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 No notes available BPH Continues on Flomax Iron deficiency anemia H&H stable at 40.6 and 13.7 Continue iron daily Thank you for allowing me to participate in the care of this patient. Will follow as needed, please notify medical provider with any changes in condition or concerns.
[2025-01-23 16:00] VITALS: BP 126/65; PULSE 88
[2025-01-23 17:04] LABS: Glucose, Whole Blood 165 mg/dL (60-115)
[2025-01-23 20:00] VITALS: BP 121/58; PULSE 82; RESP 18; TEMP 37.2; O2SAT 93
[2025-01-23 20:22] LABS: Glucose, Whole Blood 173 mg/dL (60-115)
--- NOTE | 2025-01-23 22:30 | P.PNPSI_ITS ---
Subjective Subjective Date of Service: 02/15/25 Reason For Visit: SI, decomp, worsening depression Subjective Notes: Conditional Voluntary Healthcare Proxy: No Guardianship: No Medical Problems Affecting Mental Status: No Interim History: Medical record and nursing notes reviewed; case discussed during rounds with team/nursing staff, and met with patient for supportive therapy/psychoeducation, as well as medication management. Met with patient one of TV rooms, that the stomach does not bother him today. Compliant with medications, more visible, appeared to be disheveled, he did say that he shower yesterday. Denies side effects from medications. Denies anxiety and depression. Denies safety concerns. Visible attended groups but quiet keeps himself. He is receptive with the plan of discharge on Thursday. Medication Compliance: Yes Side effects from medications: No Attending Groups: Intermittent Review of Systems Acute medical concerns: No Medical Review of Systems: unchanged Review of Systems Review of Systems Denies any shortness of breath, chest pain, abdominal pain or discomfort, nausea vomiting or diarrhea Mental Status Exam Mental Status Exam Narrative: Patient is alert and oriented; behavior is cooperative, improve in anxiety and depression; patient is not in distress; dressed in casual attire with unkempt hair but adequate hygiene; mood is described as better and affect congruent; eye contact appropriate; Speech is normal rate, volume and prosody and not pressured; no psychomotor agitation/retardation present; thought process is organized and goal directed; Thought content is WNL, pertinent to relevant topics and without any delusional content, paranoid ideation or grandiosity; denies any SI/SIB/HI. Denies AH. There is no evidence of perceptual disturbance. Patient's insight and judgment improving. Diagnostics Vital Signs (24Hr): Vital Signs - 24 hr 01/23/25 07:30 01/23/25 09:22 01/23/25 16:00 Temperature 97.4 F Pulse Rate 76 88 Respiratory Rate 18 Blood Pressure 162/75 H 139/74 126/65 Pulse Oximetry 95 Oxygen Delivery Method Room Air 01/23/25 20:00 Temperature 99.0 F Pulse Rate 82 Respiratory Rate 18 Blood Pressure 121/58 L Pulse Oximetry 93 Oxygen Delivery Method Room Air BMI result Body Mass Index 37.7 Labs 01/19/25 15:41 01/20/25 08:10 Labs: Laboratory Results - last 48 hr 01/22/25 01/22/25 01/22/25 07:44 11:54 16:35 POC Glucose 184 H 197 H 155 H 01/22/25 01/23/25 01/23/25 20:28 07:40 11:50 POC Glucose 209 H 170 H 137 H 01/23/25 01/23/25 16:59 20:17 POC Glucose 165 H 173 H Medications Medications Current Medications Acetaminophen (Acetaminophen 325 Mg Tablet) 650 mg PO Q6H PRN PRN Reason: Headache/Pain, Scale 1-10 Al Hydroxide/Mg Hydroxide (Magnesium Hydrox/Alum Hydrox 30 Ml Oral.Susp) 30 ml PO Q6H PRN PRN Reason: Heartburn/Nausea Last Admin: 01/21/25 19:59 Dose: 30 ml Albuterol Sulfate (Albuterol Sulfate 90 Mcg 8 Gm Inhaler) 2 puff INHALE RQ4H PRN PRN Reason: for wheezing Last Admin: 01/23/25 20:24 Dose: 2 puff Atorvastatin Calcium (Atorvastatin Calcium 40 Mg Tablet) 40 mg PO DAILY [facility] Last Admin: 01/23/25 09:24 Dose: 40 mg Dextrose (Dextrose 50 % 25 Gm/50 Ml Syringe) 25 gm IVPUSH Q15M PRN; Protocol PRN Reason: per Hypoglycemia Standing Ord. Escitalopram Oxalate (Escitalopram Oxalate 20 Mg Tablet) 20 mg PO DAILY [facility] Last Admin: 01/23/25 09:22 Dose: 20 mg Ferrous Sulfate (Ferrous Sulfate 324 Mg Tablet.Dr) 324 mg PO DAILY [facility] Last Admin: 01/23/25 09:24 Dose: 324 mg Glucose (Glucose Gel 15 Gm Gel..Gram.) 15 gm PO Q15M PRN; Protocol PRN Reason: per Hypoglycemia Standing Ord. Hydroxyzine HCl (Hydroxyzine Hcl 25 Mg Tablet) 25 mg PO Q6H PRN PRN Reason: mild anxiety Hydroxyzine HCl (Hydroxyzine Hcl 25 Mg Tablet) 25 mg PO TID PRN PRN Reason: Anxiety Insulin Glargine (Insulin Glargine,Hum.Rec.Anlog 100 Unit/Ml 10 Ml Vial) 15 unit SUBCUT DAILY [facility] Last Admin: 01/23/25 08:29 Dose: 15 unit Insulin Human Lispro (Insulin Lispro 100 Unit/Ml 3 Ml Vial) 0 unit SUBCUT QIDACHS [facility]; Protocol Last Admin: 01/23/25 20:21 Dose: 2 unit Losartan Potassium (Losartan Potassium 25 Mg Tablet) 25 mg PO DAILY [facility]; Protocol Last Admin: 01/23/25 09:22 Dose: 25 mg Magnesium Hydroxide (Milk Of Magnesia 30 Ml Oral.Susp) 30 ml PO DAILY PRN PRN Reason: Constipation Metformin HCl (Metformin Hcl 1,000 Mg Tablet) 1,000 mg PO BID [facility] Last Admin: 01/23/25 20:09 Dose: 1,000 mg Nicotine (Nicotine 21 Mg Patch.Td24) 21 mg TRANSDERMA DAILY PRN PRN Reason: nicotine craving Nicotine Polacrilex (Nicotine Polacrilex 2 Mg Gum) 2 mg BUCCAL Q2H PRN PRN Reason: Nicotine Cravings Olanzapine (Olanzapine 5 Mg Tablet) 5 mg PO BID PRN PRN Reason: agitation Olanzapine (Olanzapine 5 Mg Tablet) 5 mg PO BID [facility] Last Admin: 01/23/25 20:09 Dose: 5 mg Omeprazole (Omeprazole 40 Mg Capsule.Dr) 40 mg PO DAILY [facility] Last Admin: 01/23/25 09:22 Dose: 40 mg Ondansetron HCl (Ondansetron Odt 4 Mg Tab.Rapdis) 4 mg TRANSLINGU Q8H PRN PRN Reason: Nausea and Vomiting Last Admin: 01/21/25 22:20 Dose: 4 mg Tamsulosin HCl (Tamsulosin Hcl 0.4 Mg Capsule) 0.4 mg PO BEDTIME [facility] Last Admin: 01/23/25 20:09 Dose: 0.4 mg Thiamine HCl (Thiamine Hcl 100 Mg Tablet) 100 mg PO BID [facility] Last Admin: 01/23/25 20:09 Dose: 100 mg Trazodone HCl (Trazodone Hcl 50 Mg Tablet) 50 mg PO BEDTIME MRX1 PRN PRN Reason: Insomnia Last Admin: 01/20/25 21:42 Dose: 50 mg Vitamin D (Cholecalciferol (Vitamin D3) 25 Mcg Tablet) 50 mcg PO DAILY [facility] Last Admin: 01/23/25 09:24 Dose: 50 mcg Allergies Allergies Allergy/AdvReac Type Severity Reaction Status Date / Time pollen extracts (POLLEN) Allergy Mild RUNNY NOSE Verified 01/19/25 14:33 cat dander (CATS) Allergy Unknown UNKNOWN Verified 01/19/25 14:33 dog dander (DOGS) Allergy Unknown UNKNOWN Verified 01/19/25 14:33 mold (MOLD) Allergy Unknown UNKNOWN Verified 01/19/25 14:33 lactose AdvReac Abdominal Verified 01/19/25 14:33 Pain Assessment & Plan Assessment & Plan (1) Diabetes mellitus: Qualifiers: Diabetes mellitus type: type 2 Diabetes mellitus detention insulin use: without detention use Diabetes mellitus complication status: with hyperglycemia Qualified Code(s): E11.65 - Type 2 diabetes mellitus with hyperglycemia Status: Acute Code(s): E11.9 - Type 2 diabetes mellitus without complications Plan HPI: Patient is a 54 yo single Macedonian-speaking male with history of mood disorder, anxiety, depression, HTN, CKD, Asthma, COPD, HLD, DM presents to [facility] via EMS stating that he was contacted the request of his therapist. The therapist concern about his suicidal ideation with plan and intent. Increase helpless and hopelessness caring for his needs appropriately due to increased depression symptoms. Patient also reports experience hallucinations. Increase environmental such as he had to move into his brother's after he most recent hospitalization his house were condemned. Feeling pressure from timely requesting to obtain employment and secure new housing. Formulation/clinical reasoning: Continue report passive SI, and CAH, increasing in depression and anxiety with environmental changes and pressure from family. Noted cognitive impaired. Hx of depression, and anxiety. Given above information, patient would benefit from restrictive enviroment for safety, medication adjustment to target depression and hallucination symptoms, provide therapeutic environment coping skills, and refer patient back to outpatient provider services for aftercare. Hospital course: 01/20/25: Continue with home medication. Monitor for hyper and hypoglycemic, monitor for blood pressure. Patient could be benefit [place] assessment as he has some cognitive impairment which can be affect his daily function/decision- making. Encourage group participation, daily ADLs and compliant with medications 01/21/25: Continue to improve in mood, denies anxiety, depression, SI/HI/SIB/AVH. Report sleep well and good appetite. SLept for 8 hours, compliant with meds without side effects, +groups. No behavior issues.Will shower later on of today. Elevated lipid profile. Continue with tx plan. No change. 01/22/25: Patient slept for 8 hours, reports feeling better today. He refused medication yesterday in the evening due to not feeling well in the stomach. Patient received Zofran and Maalox for nauseous/discomfort. He is more isolated to his room today, but he is more in late in the afternoon. Denies safety concerns. Denies hallucinations. Continued to encourage patient to compliant with medication consistently 01/23/25: Met with patient one of TV rooms, that the stomach does not bother him today. Compliant with medications, more visible, appeared to be disheveled, he did say that he shower yesterday. Denies side effects from medications. Denies anxiety and depression. Denies safety concerns. Visible attended groups but quiet keeps himself. He is receptive with the plan of discharge on Thursday. Plan Patient on 15 minute checks for safety. possible discharge on Thursday. Admitted to [facility]. Work with treatment team to do collateral and FLU appointments for aftercare. Patient has OP team that he sees them often. No psychiatrist: open to obtain one. Will touch baseline with OT if [place] assessment done in the past. 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 Sees pharmacy scheduler at [address] No notes available BPH Continues on Flomax Iron deficiency anemia H&H stable at 40.6 and 13.7 Continue iron daily Patient educated on: diagnosis, medication risk/benefits and therapeutic strategies Informed Consent: understands Reason for continued inpatient stay Substantial Risk for: med/psych decompensation Time Spent With Patient Time: Total time managing care of this patient today ____ minutes.
--- NOTE | 2025-01-24 | ECG_ITS ---
Test Reason : c/o chest pain Blood Pressure : */* mmHG Vent. Rate : 89 BPM Atrial Rate : 89 BPM P-R Int : 152 ms QRS Dur : 100 ms QT Int : 380 ms P-R-T Axes : 40 -2 112 degrees QTcB Int : 462 ms Normal sinus rhythm Minimal voltage criteria for LVH, may be normal variant ( R in aVL ) Nonspecific ST and T wave abnormality Abnormal ECG When compared with ECG of 19-Jan-2025 18:11, No significant change was found Referred By: Esperanza Hua Electronically Signed By: BRIGITTE RASMUSSEN
[2025-01-24 08:00] VITALS: BP 142/73; PULSE 92; RESP 12; TEMP 36.3; O2SAT 93
[2025-01-24 08:09] LABS: Glucose, Whole Blood 173 mg/dL (60-115)
[2025-01-24 09:00] VITALS: BP 135/75; BP 146/75; PULSE 104; PULSE 96
[2025-01-24] MEDS: Insulin Glargine,Hum.rec.anlog 100 UNIT/ML 10 ML VIAL 15 UNIT SUBCUT (09:06)
[2025-01-24 09:10] VITALS: BP 133/75
[2025-01-24] MEDS: Ferrous Sulfate 324 MG TABLET.DR PO (09:10)
[2025-01-24] MEDS: Albuterol Sulfate 90 MCG 8 GM INHALER 2 PUFF INHALE ×3 (09:35→20:13)
[2025-01-24 11:58] LABS: Glucose, Whole Blood 123 mg/dL (60-115)
[2025-01-24 16:00] VITALS: BP 150/73; PULSE 85
[2025-01-24 16:37] LABS: Glucose, Whole Blood 175 mg/dL (60-115)
--- NOTE | 2025-01-24 19:15 | HO.PSYCHPN ---
Subjective Subjective Date of Service: 01/24/25 Reason For Visit: SI, decomp, worsening depression Subjective Notes: Conditional Voluntary Healthcare Proxy: No Guardianship: No Medical Problems Affecting Mental Status: No Interim History: Medical record and nursing notes reviewed; case discussed during rounds with team/nursing staff, and met with patient for supportive therapy/psychoeducation, as well as medication management. Patient reports, he has been sleeping good, no issue with appetite. Compliant with medication, reports feeling dizzy. He also reports he had history of Vetigo. Nursing notify, advised patient to change position slowly, encourage fluid intake. Denies safety concerns, feeling ready for tomorrow discharge back home to his brother. Patient had appointment on . Working on to send med to preferred pharmacy. Medication Compliance: Yes Side effects from medications: No Attending Groups: Intermittent Review of Systems Acute medical concerns: No Medical Review of Systems: unchanged Review of Systems Review of Systems Denies any shortness of breath, chest pain, abdominal pain or discomfort, nausea vomiting or diarrhea. Report feeling dizzy. Mental Status Exam Mental Status Exam Narrative: Patient is alert and oriented; behavior is cooperative, improve in anxiety and depression; patient is not in distress; dressed in casual attire with unkempt hair but adequate hygiene; affect congruent; eye contact appropriate; Speech is normal rate, volume and prosody and not pressured; no psychomotor agitation/retardation present; thought process is organized and goal directed; Thought content is WNL, pertinent to relevant topics and without any delusional content, paranoid ideation or grandiosity; denies any SI/SIB/HI. Denies AH. There is no evidence of perceptual disturbance. Patient's insight and judgment fair. Diagnostics Vital Signs (24Hr): Vital Signs - 24 hr 01/23/25 20:00 01/24/25 08:00 01/24/25 09:00 Temperature 99.0 F 97.4 F Pulse Rate 82 92 104 H Respiratory Rate 18 12 Blood Pressure 121/58 L 142/73 H 135/75 Pulse Oximetry 93 93 Oxygen Delivery Method Room Air Room Air 01/24/25 09:00 01/24/25 09:10 01/24/25 16:00 Temperature Pulse Rate 96 85 Respiratory Rate Blood Pressure 146/75 H 133/75 150/73 H Pulse Oximetry Oxygen Delivery Method BMI result Body Mass Index 37.7 Labs 01/19/25 15:41 01/20/25 08:10 Labs: Laboratory Results - last 48 hr 01/22/25 01/23/25 01/23/25 20:28 07:40 11:50 POC Glucose 209 H 170 H 137 H 01/23/25 01/23/25 01/24/25 16:59 20:17 08:00 POC Glucose 165 H 173 H 173 H 01/24/25 01/24/25 11:53 16:30 POC Glucose 123 H 175 H Medications Medications Current Medications Acetaminophen (Acetaminophen 325 Mg Tablet) 650 mg PO Q6H PRN PRN Reason: Headache/Pain, Scale 1-10 Al Hydroxide/Mg Hydroxide (Magnesium Hydrox/Alum Hydrox 30 Ml Oral.Susp) 30 ml PO Q6H PRN PRN Reason: Heartburn/Nausea Last Admin: 01/21/25 19:59 Dose: 30 ml Albuterol Sulfate (Albuterol Sulfate 90 Mcg 8 Gm Inhaler) 2 puff INHALE RQ4H PRN PRN Reason: for wheezing Last Admin: 01/24/25 15:46 Dose: 2 puff Atorvastatin Calcium (Atorvastatin Calcium 40 Mg Tablet) 40 mg PO DAILY [facility] Last Admin: 01/24/25 09:11 Dose: 40 mg Dextrose (Dextrose 50 % 25 Gm/50 Ml Syringe) 25 gm IVPUSH Q15M PRN; Protocol PRN Reason: per Hypoglycemia Standing Ord. Escitalopram Oxalate (Escitalopram Oxalate 20 Mg Tablet) 20 mg PO DAILY [facility] Last Admin: 01/24/25 09:11 Dose: 20 mg Ferrous Sulfate (Ferrous Sulfate 324 Mg Tablet.Dr) 324 mg PO DAILY [facility] Last Admin: 01/24/25 09:10 Dose: 324 mg Glucose (Glucose Gel 15 Gm Gel..Gram.) 15 gm PO Q15M PRN; Protocol PRN Reason: per Hypoglycemia Standing Ord. Hydroxyzine HCl (Hydroxyzine Hcl 25 Mg Tablet) 25 mg PO Q6H PRN PRN Reason: mild anxiety Hydroxyzine HCl (Hydroxyzine Hcl 25 Mg Tablet) 25 mg PO TID PRN PRN Reason: Anxiety Insulin Glargine (Insulin Glargine,Hum.Rec.Anlog 100 Unit/Ml 10 Ml Vial) 15 unit SUBCUT DAILY [facility] Last Admin: 01/24/25 09:06 Dose: 15 unit Insulin Human Lispro (Insulin Lispro 100 Unit/Ml 3 Ml Vial) 0 unit SUBCUT QIDACHS [facility]; Protocol Last Admin: 01/24/25 17:25 Dose: 2 unit Losartan Potassium (Losartan Potassium 25 Mg Tablet) 25 mg PO DAILY [facility]; Protocol Last Admin: 01/24/25 09:10 Dose: 25 mg Magnesium Hydroxide (Milk Of Magnesia 30 Ml Oral.Susp) 30 ml PO DAILY PRN PRN Reason: Constipation Metformin HCl (Metformin Hcl 1,000 Mg Tablet) 1,000 mg PO BID [facility] Last Admin: 01/24/25 09:09 Dose: 1,000 mg Nicotine (Nicotine 21 Mg Patch.Td24) 21 mg TRANSDERMA DAILY PRN PRN Reason: nicotine craving Nicotine Polacrilex (Nicotine Polacrilex 2 Mg Gum) 2 mg BUCCAL Q2H PRN PRN Reason: Nicotine Cravings Olanzapine (Olanzapine 5 Mg Tablet) 5 mg PO BID PRN PRN Reason: agitation Olanzapine (Olanzapine 5 Mg Tablet) 5 mg PO BID [facility] Last Admin: 01/24/25 09:11 Dose: 5 mg Omeprazole (Omeprazole 40 Mg Capsule.Dr) 40 mg PO DAILY [facility] Last Admin: 01/24/25 09:10 Dose: 40 mg Ondansetron HCl (Ondansetron Odt 4 Mg Tab.Rapdis) 4 mg TRANSLINGU Q8H PRN PRN Reason: Nausea and Vomiting Last Admin: 01/21/25 22:20 Dose: 4 mg Tamsulosin HCl (Tamsulosin Hcl 0.4 Mg Capsule) 0.4 mg PO BEDTIME [facility] Last Admin: 01/23/25 20:09 Dose: 0.4 mg Thiamine HCl (Thiamine Hcl 100 Mg Tablet) 100 mg PO BID [facility] Last Admin: 01/24/25 09:10 Dose: 100 mg Trazodone HCl (Trazodone Hcl 50 Mg Tablet) 50 mg PO BEDTIME MRX1 PRN PRN Reason: Insomnia Last Admin: 01/20/25 21:42 Dose: 50 mg Vitamin D (Cholecalciferol (Vitamin D3) 25 Mcg Tablet) 50 mcg PO DAILY [facility] Last Admin: 01/24/25 09:10 Dose: 50 mcg Allergies Allergies Allergy/AdvReac Type Severity Reaction Status Date / Time pollen extracts (POLLEN) Allergy Mild RUNNY NOSE Verified 01/19/25 14:33 cat dander (CATS) Allergy Unknown UNKNOWN Verified 01/19/25 14:33 dog dander (DOGS) Allergy Unknown UNKNOWN Verified 01/19/25 14:33 mold (MOLD) Allergy Unknown UNKNOWN Verified 01/19/25 14:33 lactose AdvReac Abdominal Verified 01/19/25 14:33 Pain Assessment & Plan Assessment & Plan (1) Diabetes mellitus: Qualifiers: Diabetes mellitus type: type 2 Diabetes mellitus longterm insulin use: without brand marketing coordinator use Diabetes mellitus complication status: with hyperglycemia Qualified Code(s): E11.65 - Type 2 diabetes mellitus with hyperglycemia Status: Acute Code(s): E11.9 - Type 2 diabetes mellitus without complications Plan HPI: Patient is a 54 yo single French-speaking male with history of mood disorder, anxiety, depression, HTN, CKD, Asthma, COPD, HLD, DM presents to [facility] ED via EMS stating that he was contacted the request of his therapist. The therapist concern about his suicidal ideation with plan and intent. Increase helpless and hopelessness caring for his needs appropriately due to increased depression symptoms. Patient also reports experience hallucinations. Increase environmental such as he had to move into his brother's after he most recent hospitalization his house were condemned. Feeling pressure from timely requesting to obtain employment and secure new housing. Formulation/clinical reasoning: Continue report passive SI, and CAH, increasing in depression and anxiety with environmental changes and pressure from family. Noted cognitive impaired. Hx of depression, and anxiety. Given above information, patient would benefit from restrictive enviroment for safety, medication adjustment to target depression and hallucination symptoms, provide therapeutic environment coping skills, and refer patient back to outpatient provider services for aftercare. Hospital course: 01/20/25: Continue with home medication. Monitor for hyper and hypoglycemic, monitor for blood pressure. Patient could be benefit [place] assessment as he has some cognitive impairment which can be affect his daily function/decision-making. Encourage group participation, daily ADLs and compliant with medications 01/21/25: Continue to improve in mood, denies anxiety, depression, SI/HI/SIB/AVH. Report sleep well and good appetite. SLept for 8 hours, compliant with meds without side effects, +groups. No behavior issues.Will shower later on of today. Elevated lipid profile. Continue with tx plan. No change. 01/22/25: Patient slept for 8 hours, reports feeling better today. He refused medication yesterday in the evening due to not feeling well in the stomach. Patient received Zofran and Maalox for nauseous/discomfort. He is more isolated to his room today, but he is more in late in the afternoon. Denies safety concerns. Denies hallucinations. Continued to encourage patient to compliant with medication consistently 01/23/25: Met with patient one of TV rooms, that the stomach does not bother him today. Compliant with medications, more visible, appeared to be disheveled, he did say that he shower yesterday. Denies side effects from medications. Denies anxiety and depression. Denies safety concerns. Visible attended groups but quiet keeps himself. He is receptive with the plan of discharge on Thursday. 01/24/25: Patient reports, he has been sleeping good, no issue with appetite. Compliant with medication, reports feeling dizzy. He also reports he had history of Vetigo. Nursing notify, advised patient to change position slowly, encourage fluid intake. Denies safety concerns, feeling ready for tomorrow discharge back home to his brother. Patient had appointment on . Working on to send med to preferred pharmacy. Plan Patient on 15 minute checks for safety. possible discharge on Thursday. Admitted to [facility]. Work with treatment team to do collateral and FLU appointments for aftercare. Patient has OP team that he sees them often. No psychiatrist: open to obtain one. Will touch baseline with OT if [place] assessment done in the past. 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 Sees home health caregiver at [address] No notes available BPH Continues on Flomax Iron deficiency anemia H&H stable at 40.6 and 13.7 Continue iron daily Patient educated on: diagnosis, medication risk/benefits and therapeutic strategies Informed Consent: understands Reason for continued inpatient stay Substantial Risk for: med/psych decompensation Time Spent With Patient Time: Total time managing care of this patient today ____ minutes.
[2025-01-24 20:00] VITALS: BP 126/68; PULSE 99; RESP 20; TEMP 36.9; O2SAT 95
[2025-01-24] MEDS: Magnesium Hydrox/Alum Hydrox 30 ML ORAL.SUSP PO (20:32)
[2025-01-24 21:06] LABS: Glucose, Whole Blood 194 mg/dL (60-115)
[2025-01-25 07:30] LABS: Glucose, Whole Blood 147 mg/dL (60-115)
[2025-01-25 07:37] VITALS: BP 117/65; PULSE 86; RESP 16; TEMP 36.6; O2SAT 97
[2025-01-25] MEDS: Insulin Glargine,Hum.rec.anlog 100 UNIT/ML 10 ML VIAL 15 UNIT SUBCUT (08:04)
[2025-01-25] MEDS: Ferrous Sulfate 324 MG TABLET.DR PO (08:07)
[2025-01-25] MEDS: Albuterol Sulfate 90 MCG 8 GM INHALER 2 PUFF INHALE (09:23)
--- NOTE | 2025-01-25 09:23 | P.DS_ITS ---
DS: Providers Provider Date of Service: 01/25/25 Date of admission: 01/19/25 18:35 Date of discharge: 01/25/25 Primary care physician: Bon Arvizu MD Attending physician on admission: Esperanza Hua Discharging clinician: Esperanza Hua DS: Diagnosis Discharge Diagnosis (1) Diabetes mellitus: Status: Acute DS: Medications Discharge Medications Home Medications: Previous Rx's ?Medication ?Instructions ?Recorded ondansetron HCl 4 mg tablet 4 mg PO Q8H PRN nausea and 01/06/25 vomiting #12 tabs albuterol sulfate 90 mcg/actuation 2 puff inhalation Q 4-6H PRN for 01/18/25 aerosol inhaler (Ventolin HFA) wheezing #18 ea atorvastatin 40 mg tablet 40 mg PO DAILY #30 tabs 01/09 11/02 cholecalciferol (vitamin D3) 50 50 mcg PO DAILY #30 ca ps 01/24/25 mcg (2,000 unit) capsule escitalopram oxalate 20 mg tablet 20 mg PO DAILY #30 t abs 01/24/25 ferrous sulfate 325 mg (65 mg 325 mg PO DAILY #30 tabs 01/24/25 iron) tablet insulin glargine 100 unit/mL (3 15 unit (0.15 mL) subc ut DAILY #15 01/24/25 mL) subcutaneous pen (Lantus mL Solostar U-100 Insulin) losartan 25 mg tablet 25 mg PO DAILY #30 tabs 01/09 11/02 metformin 1,000 mg tablet 1,000 mg PO BID 90 days #60 tabs 01/24/25 olanzapine 5 mg tablet 5 mg PO BID 30 days #60 tabs 01/24/25 omeprazole 40 mg capsule,delayed 40 mg PO DAILY #30 ca ps 01/24/25 release tamsulosin 0.4 mg capsule 0.4 mg PO BEDTIME #30 caps 0 01/24/25 thiamine HCl (vitamin B1) 100 mg 100 mg PO BID #60 tab s 01/24/25 tablet Mental Status Exam Mental Status Exam Narrative: Patient presents well-groomed, casually dressed. Affect is euthymic with full range. Speech is clear and coherent. Thought process is linear and logical. Thought content is appropriate and relevant. Patient denies suicidal or homicidal ideation intent or plan. No overt psychotic symptoms elicited. Insight is good. Judgment is good. Data Data Completed and Pending Completed studies during hospitalization [Text1]: 01/19/25 01/19/25 01/19/25 14:46 15:41 21:11 WBC 6.9 RBC 4.78 Hgb 13.7 L D Hct 40.6 L MCV 84.9 MCH 28.7 MCHC 33.7 RDW 18.3 H Plt Count 216 MPV 10.0 Immature Gran % (Auto) 0.3 Neut % (Auto) 62.4 Lymph % (Auto) 25.5 [place] % (Auto) 7.6 Eos % (Auto) 3.5 Baso % (Auto) 0.7 Lymph # (Auto) 1.8 [place] # (Auto) 0.5 Eos # (Auto) 0.2 Baso # (Auto) 0.1 Abs Immat Gran (auto) 0.02 Absolute Neuts (auto) 4.3 Absolute Nucleated RBC 0.000 Nucleated RBC % (auto) 0.0 Sodium 141 Potassium 4.5 Chloride 103 Carbon Dioxide 31 H Anion Gap 12 BUN 13 Creatinine 1.41 H Estim Creat Clear Calc 61.6 Estimated GFR 52 POC Glucose 143 H Random Glucose 183 H Estimat Average Glucose Hemoglobin A1c % Calcium 9.2 Total Bilirubin 0.5 AST 37 ALT 45 H Alkaline Phosphatase 90 Total Protein 7.4 Albumin 4.2 Triglycerides Cholesterol LDL Cholesterol, Calc HDL Cholesterol TSH Free T4 Urine Color Yellow Urine Appearance Clear Urine pH 8.5 Ur Specific [place] 1.015 Urine Protein Trace Urine Glucose (UA) Negative Urine Ketones Negative Urine Blood Negative Urine Nitrite Negative Ur Leukocyte Esterase Negative Urine Opiates Screen Not Detected Ur Buprenorphine Scrn Not Detected Ur Oxycodone Screen Not Detected Urine Methadone Screen Not Detected Urine Fentanyl Screen Not Detected Ur Barbiturates Screen Not Detected Ur Phencyclidine Scrn Not Detected Ur Amphetamines Screen Not Detected U Benzodiazepines Scrn Not Detected Urine Cocaine Screen Not Detected U Marijuana (THC) Screen Not Detected Ethyl Alcohol < 10 01/20/25 01/20/25 01/20/25 08:02 08:10 11:45 WBC RBC Hgb Hct MCV MCH MCHC RDW Plt Count MPV Immature Gran % (Auto) Neut % (Auto) Lymph % (Auto) [place] % (Auto) Eos % (Auto) Baso % (Auto) Lymph # (Auto) [place] # (Auto) Eos # (Auto) Baso # (Auto) Abs Immat Gran (auto) Absolute Neuts (auto) Absolute Nucleated RBC Nucleated RBC % (auto) Sodium 141 Potassium 4.5 Chloride 102 Carbon Dioxide 30 H Anion Gap 14 BUN 16 Creatinine 1.46 H Estim Creat Clear Calc 70.4 Estimated GFR 50 POC Glucose 189 H 182 H Random Glucose 182 H Estimat Average Glucose 160 Hemoglobin A1c % 7.2 H Calcium 9.6 Total Bilirubin 0.6 AST 35 ALT 43 H Alkaline Phosphatase 97 Total Protein 7.6 Albumin 4.4 Triglycerides 421 H Cholesterol 208 H LDL Cholesterol, Calc TNP HDL Cholesterol 40 L TSH 2.33 Free T4 0.84 Urine Color Urine Appearance Urine pH Ur Specific [place] Urine Protein Urine Glucose (UA) Urine Ketones Urine Blood Urine Nitrite Ur Leukocyte Esterase Urine Opiates Screen Ur Buprenorphine Scrn Ur Oxycodone Screen Urine Methadone Screen Urine Fentanyl Screen Ur Barbiturates Screen Ur Phencyclidine Scrn Ur Amphetamines Screen U Benzodiazepines Scrn Urine Cocaine Screen U Marijuana (THC) Screen Ethyl Alcohol 01/20/25 01/20/25 01/21/25 16:48 21:11 08:02 WBC RBC Hgb Hct MCV MCH MCHC RDW Plt Count MPV Immature Gran % (Auto) Neut % (Auto) Lymph % (Auto) [place] % (Auto) Eos % (Auto) Baso % (Auto) Lymph # (Auto) [place] # (Auto) Eos # (Auto) Baso # (Auto) Abs Immat Gran (auto) Absolute Neuts (auto) Absolute Nucleated RBC Nucleated RBC % (auto) Sodium Potassium Chloride Carbon Dioxide Anion Gap BUN Creatinine Estim Creat Clear Calc Estimated GFR POC Glucose 191 H 195 H 179 H Random Glucose Estimat Average Glucose Hemoglobin A1c % Calcium Total Bilirubin AST ALT Alkaline Phosphatase Total Protein Albumin Triglycerides Cholesterol LDL Cholesterol, Calc HDL Cholesterol TSH Free T4 Urine Color Urine Appearance Urine pH Ur Specific [place] Urine Protein Urine Glucose (UA) Urine Ketones Urine Blood Urine Nitrite Ur Leukocyte Esterase Urine Opiates Screen Ur Buprenorphine Scrn Ur Oxycodone Screen Urine Methadone Screen Urine Fentanyl Screen Ur Barbiturates Screen Ur Phencyclidine Scrn Ur Amphetamines Screen U Benzodiazepines Scrn Urine Cocaine Screen U Marijuana (THC) Screen Ethyl Alcohol 01/21/25 01/21/25 01/21/25 11:55 16:38 20:18 WBC RBC Hgb Hct MCV MCH MCHC RDW Plt Count MPV Immature Gran % (Auto) Neut % (Auto) Lymph % (Auto) [place] % (Auto) Eos % (Auto) Baso % (Auto) Lymph # (Auto) [place] # (Auto) Eos # (Auto) Baso # (Auto) Abs Immat Gran (auto) Absolute Neuts (auto) Absolute Nucleated RBC Nucleated RBC % (auto) Sodium Potassium Chloride Carbon Dioxide Anion Gap BUN Creatinine Estim Creat Clear Calc Estimated GFR POC Glucose 171 H 157 H 217 H Random Glucose Estimat Average Glucose Hemoglobin A1c % Calcium Total Bilirubin AST ALT Alkaline Phosphatase Total Protein Albumin Triglycerides Cholesterol LDL Cholesterol, Calc HDL Cholesterol TSH Free T4 Urine Color Urine Appearance Urine pH Ur Specific [place] Urine Protein Urine Glucose (UA) Urine Ketones Urine Blood Urine Nitrite Ur Leukocyte Esterase Urine Opiates Screen Ur Buprenorphine Scrn Ur Oxycodone Screen Urine Methadone Screen Urine Fentanyl Screen Ur Barbiturates Screen Ur Phencyclidine Scrn Ur Amphetamines Screen U Benzodiazepines Scrn Urine Cocaine Screen U Marijuana (THC) Screen Ethyl Alcohol 01/22/25 01/22/25 01/22/25 07:44 11:54 16:35 WBC RBC Hgb Hct MCV MCH MCHC RDW Plt Count MPV Immature Gran % (Auto) Neut % (Auto) Lymph % (Auto) [place] % (Auto) Eos % (Auto) Baso % (Auto) Lymph # (Auto) [place] # (Auto) Eos # (Auto) Baso # (Auto) Abs Immat Gran (auto) Absolute Neuts (auto) Absolute Nucleated RBC Nucleated RBC % (auto) Sodium Potassium Chloride Carbon Dioxide Anion Gap BUN Creatinine Estim Creat Clear Calc Estimated GFR POC Glucose 184 H 197 H 155 H Random Glucose Estimat Average Glucose Hemoglobin A1c % Calcium Total Bilirubin AST ALT Alkaline Phosphatase Total Protein Albumin Triglycerides Cholesterol LDL Cholesterol, Calc HDL Cholesterol TSH Free T4 Urine Color Urine Appearance Urine pH Ur Specific [place] Urine Protein Urine Glucose (UA) Urine Ketones Urine Blood Urine Nitrite Ur Leukocyte Esterase Urine Opiates Screen Ur Buprenorphine Scrn Ur Oxycodone Screen Urine Methadone Screen Urine Fentanyl Screen Ur Barbiturates Screen Ur Phencyclidine Scrn Ur Amphetamines Screen U Benzodiazepines Scrn Urine Cocaine Screen U Marijuana (THC) Screen Ethyl Alcohol 01/22/25 01/23/25 01/23/25 20:28 07:40 11:50 WBC RBC Hgb Hct MCV MCH MCHC RDW Plt Count MPV Immature Gran % (Auto) Neut % (Auto) Lymph % (Auto) [place] % (Auto) Eos % (Auto) Baso % (Auto) Lymph # (Auto) [place] # (Auto) Eos # (Auto) Baso # (Auto) Abs Immat Gran (auto) Absolute Neuts (auto) Absolute Nucleated RBC Nucleated RBC % (auto) Sodium Potassium Chloride Carbon Dioxide Anion Gap BUN Creatinine Estim Creat Clear Calc Estimated GFR POC Glucose 209 H 170 H 137 H Random Glucose Estimat Average Glucose Hemoglobin A1c % Calcium Total Bilirubin AST ALT Alkaline Phosphatase Total Protein Albumin Triglycerides Cholesterol LDL Cholesterol, Calc HDL Cholesterol TSH Free T4 Urine Color Urine Appearance Urine pH Ur Specific [place] Urine Protein Urine Glucose (UA) Urine Ketones Urine Blood Urine Nitrite Ur Leukocyte Esterase Urine Opiates Screen Ur Buprenorphine Scrn Ur Oxycodone Screen Urine Methadone Screen Urine Fentanyl Screen Ur Barbiturates Screen Ur Phencyclidine Scrn Ur Amphetamines Screen U Benzodiazepines Scrn Urine Cocaine Screen U Marijuana (THC) Screen Ethyl Alcohol 01/23/25 01/23/25 01/24/25 16:59 20:17 08:00 WBC RBC Hgb Hct MCV MCH MCHC RDW Plt Count MPV Immature Gran % (Auto) Neut % (Auto) Lymph % (Auto) [place] % (Auto) Eos % (Auto) Baso % (Auto) Lymph # (Auto) [place] # (Auto) Eos # (Auto) Baso # (Auto) Abs Immat Gran (auto) Absolute Neuts (auto) Absolute Nucleated RBC Nucleated RBC % (auto) Sodium Potassium Chloride Carbon Dioxide Anion Gap BUN Creatinine Estim Creat Clear Calc Estimated GFR POC Glucose 165 H 173 H 173 H Random Glucose Estimat Average Glucose Hemoglobin A1c % Calcium Total Bilirubin AST ALT Alkaline Phosphatase Total Protein Albumin Triglycerides Cholesterol LDL Cholesterol, Calc HDL Cholesterol TSH Free T4 Urine Color Urine Appearance Urine pH Ur Specific [place] Urine Protein Urine Glucose (UA) Urine Ketones Urine Blood Urine Nitrite Ur Leukocyte Esterase Urine Opiates Screen Ur Buprenorphine Scrn Ur Oxycodone Screen Urine Methadone Screen Urine Fentanyl Screen Ur Barbiturates Screen Ur Phencyclidine Scrn Ur Amphetamines Screen U Benzodiazepines Scrn Urine Cocaine Screen U Marijuana (THC) Screen Ethyl Alcohol 01/24/25 01/24/25 11:53 16:30 WBC RBC Hgb Hct MCV MCH MCHC RDW Plt Count MPV Immature Gran % (Auto) Neut % (Auto) Lymph % (Auto) [place] % (Auto) Eos % (Auto) Baso % (Auto) Lymph # (Auto) [place] # (Auto) Eos # (Auto) Baso # (Auto) Abs Immat Gran (auto) Absolute Neuts (auto) Absolute Nucleated RBC Nucleated RBC % (auto) Sodium Potassium Chloride Carbon Dioxide Anion Gap BUN Creatinine Estim Creat Clear Calc Estimated GFR POC Glucose 123 H 175 H Random Glucose Estimat Average Glucose Hemoglobin A1c % Calcium Total Bilirubin AST ALT Alkaline Phosphatase Total Protein Albumin Triglycerides Cholesterol LDL Cholesterol, Calc HDL Cholesterol TSH Free T4 Urine Color Urine Appearance Urine pH Ur Specific [place] Urine Protein Urine Glucose (UA) Urine Ketones Urine Blood Urine Nitrite Ur Leukocyte Esterase Urine Opiates Screen Ur Buprenorphine Scrn Ur Oxycodone Screen Urine Methadone Screen Urine Fentanyl Screen Ur Barbiturates Screen Ur Phencyclidine Scrn Ur Amphetamines Screen U Benzodiazepines Scrn Urine Cocaine Screen U Marijuana (THC) Screen Ethyl Alcohol DS: Summary Hospital Course Hospital Course: HPI: Patient is a 54 yo single Kyrgyz-speaking male with history of mood disorder, anxiety, depression, HTN, CKD, Asthma, COPD, HLD, DM presents to [facility] via EMS stating that he was contacted the request of his therapist. The therapist concern about his suicidal ideation with plan and intent. Increase helpless and hopelessness caring for his needs appropriately due to increased depression symptoms. Patient also reports experience hallucinations. Increase environmental such as he had to move into his brother's after he most recent hospitalization his house were condemned. Feeling pressure from timely requesting to obtain employment and secure new housing. Formulation/clinical reasoning: Continue report passive SI, and CAH, increasing in depression and anxiety with environmental changes and pressure from family. Noted cognitive impaired. Hx of depression, and anxiety. Given above information, patient would benefit from restrictive enviroment for safety, medication adjustment to target depression and hallucination symptoms, provide therapeutic environment coping skills, and refer patient back to outpatient provider services for aftercare. Hospital course: 01/20/25: Continue with home medication. Monitor for hyper and hypoglycemic, monitor for blood pressure. Patient could be benefit [place] assessment as he has some cognitive impairment which can be affect his daily function/decision- making. Encourage group participation, daily ADLs and compliant with medications 01/21/25: Continue to improve in mood, denies anxiety, depression, SI/HI/SIB/AVH. Report sleep well and good appetite. SLept for 8 hours, compliant with meds without side effects, +groups. No behavior issues.Will shower later on of today. Elevated lipid profile. Continue with tx plan. No change. 01/22/25: Patient slept for 8 hours, reports feeling better today. He refused medication yesterday in the evening due to not feeling well in the stomach. Patient received Zofran and Maalox for nauseous/discomfort. He is more isolated to his room today, but he is more in late in the afternoon. Denies safety concerns. Denies hallucinations. Continued to encourage patient to compliant with medication consistently 01/23/25: Met with patient one of TV rooms, that the stomach does not bother him today. Compliant with medications, more visible, appeared to be disheveled, he did say that he shower yesterday. Denies side effects from medications. Denies anxiety and depression. Denies safety concerns. Visible attended groups but quiet keeps himself. He is receptive with the plan of discharge on Thursday. 01/24/25: Patient reports, he has been sleeping good, no issue with appetite. Compliant with medication, reports feeling dizzy. He also reports he had history of Vetigo. Nursing notify, advised patient to change position slowly, encourage fluid intake. Denies safety concerns, feeling ready for tomorrow discharge back home to his brother. Patient had appointment on . Working on to send med to preferred pharmacy. C/O chest pain.VS done, WNL. Do not want to take Malox or Tums to rule out any stomach issues. EKG done: no changes compared to previous EKG in January and in the past. 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 Sees hearing aid fitter at [address] No notes available BPH Continues on Flomax Iron deficiency anemia H&H stable at 40.6 and 13.7 Continue iron daily Time spent discussing smoking cessation with patient: 3 to 10 minutes Status at Discharge Cognitive/behavioral status at discharge: CONDITION ON DISCHARGE: CURRENT STATUS IT RELATES TO ADMISSION CRITERIA: Stable, improved. Improvements in depression, anxiety, and suicidal ideation. Improvements in sleep, energy, and appetite. and no hallucination or paranoia/delusional thought. Functional status at discharge: independent ambulation Overall status at discharge: patient is back to baseline Time Spent with Patient Time attestation: Total time managing care of this patient today ____ minutes. Time spent: Greater than 30 minutes Discharge Plan Discharge Anticipated Discharge Date/Time: 01/25/25 09:12 Patient Disposition: Home, Self-Care Discharge Diagnosis: MDD, HTN, DM II, HLD Referrals: Johnathan Barry ([facility] therapist) [Other] - 01/26/25 1:00 pm Referral Note: In person appointment Art Tate ([facility]) [Other] - 02/23/25 3:00 pm Referral Note: telehealth appointment Bon Arvizu MD [Primary Care Provider, Internal Medicine] - 1 Week Referral Note: 01-23-25 Your primary care provider has been notified of your discharge. They will be in contact to schedule your follow up appt. Discharge Medications: Continued albuterol sulfate [Ventolin HFA] 90 mcg/actuation HFA aerosol inhaler 2 puff inhalation Q4-6H PRN (Reason: for wheezing) Qty: 18 1RF ondansetron HCl 4 mg tablet 4 mg PO Q8H PRN (Reason: nausea and vomiting) Qty: 12 0RF atorvastatin 40 mg tablet 40 mg PO DAILY Qty: 30 0RF metformin 1,000 mg tablet 1,000 mg PO BID 90 Days Qty: 60 0RF olanzapine 5 mg Tablet 5 mg PO BID 30 Days Qty: 60 0RF thiamine HCl (vitamin B1) 100 mg tablet 100 mg PO BID Qty: 60 0RF omeprazole 40 mg capsule,delayed release(DR/EC) 40 mg PO DAILY Qty: 30 0RF tamsulosin 0.4 mg capsule 0.4 mg PO BEDTIME Qty: 30 0RF ferrous sulfate 325 mg (65 mg iron) tablet 325 mg PO DAILY Qty: 30 0RF losartan 25 mg tablet 25 mg PO DAILY Qty: 30 0RF insulin glargine [Lantus Solostar U-100 Insulin] 100 unit/mL (3 mL) insulin pen 15 unit subcut DAILY Qty: 15 0RF cholecalciferol (vitamin D3) 50 mcg (2,000 unit) capsule 50 mcg PO DAILY Qty: 30 0RF Changed escitalopram oxalate 20 mg tablet 20 mg PO DAILY Qty: 30 0RF Discontinued hydroxyzine HCl 25 mg tablet 25 mg PO TID PRN (Reason: anxiety) Qty: 30 0RF Discharge Orders: Discharge Order (Routine); Ordered 01/25/25 Ordered By: Vicky Hicks Diet: Regular diet Activity on Discharge: No Restrictions Stand Alone Forms: Patient Portal Discharge page, Community Support Print Language: Kyrgyz Care Plan Goals: Maintain mood and safe behaviors Take medications as prescribed Continue to pursue sobriety Practice coping skills Continue with outpatient providers and reach out to them as needed Health Concerns: Mood stability and behaviors Sobriety Plan of Treatment: Follow up with your PCP, psychiatric provider and other outpatient providers regarding above concerns Take medications as prescribed Assessment: Assessment: Risk assessment at time of discharge: Patient was interviewed prior to discharge and found to be fully oriented and without any SI or HI. Patient has improved insight and judgment and wants to continue treatment. Patient is not in imminent risk of harm to self or others and has a safety plan that includes presenting to the closest ER or calling 911 if feeling unsafe. Patient has been observed closely by nursing and unit staff throughout admission; patient has not engaged in any behaviors that suggest dangerousness to self or others and has demonstrated appropriate behaviors and impulse control
== END 2025-01-25 10:43 | disposition home or self-care (01) | DRG 751 ==
LOC: HO.ED 14:49 → HO.PADLT16 18:56
PROVIDERS: Admitting Provider Nurse Practitioner Psychiatric/Mental Health; Emergency Provider Student in an Organized Health Care Education/Training Program; PCP Internal Medicine; Visit Provider Nurse Practitioner Psychiatric/Mental Health
DX: F33.9 Major depressive disorder, recurrent, unspecified (principal); R45.851 Suicidal ideations; E11.22 Type 2 diabetes mellitus with diabetic chronic kidney disease; R44.0 Auditory hallucinations; N40.0 Benign prostatic hyperplasia without lower urinary tract symptoms; I12.9 Hypertensive chronic kidney disease with stage 1 through stage 4 chronic kidney disease, or unspecified chronic kidney disease; N18.9 Chronic kidney disease, unspecified; K21.9 Gastro-esophageal reflux disease without esophagitis; E78.5 Hyperlipidemia, unspecified; J98.4 Other disorders of lung; Z23 Encounter for immunization; Z79.4 Long term (current) use of insulin; Z79.84 Long term (current) use of oral hypoglycemic drugs; Z79.899 Other long term (current) drug therapy
CPT/HCPCS: 36415; 80053; 80061; 80307; 81003; 82947; 83036; 84439; 84443; 85025; 90656; 93005; 99285; S9485

== ENCOUNTER → 2025-01-19 18:06 | Outpatient (BNV) | payer OTHER, SELFPAY | PROVIDERS: Admitting Provider Nurse Practitioner Psychiatric/Mental Health; Emergency Provider Student in an Organized Health Care Education/Training Program; PCP Internal Medicine; Visit Provider Internal Medicine Cardiovascular Disease | DX: Z13.6 Encounter for screening for cardiovascular disorders (principal) | CPT/HCPCS: 93010 ==

== ENCOUNTER 2025-01-19 18:35 | Outpatient (BNV) | payer OTHER, SELFPAY | END 2025-01-24 21:29 | PROVIDERS: Admitting Provider Nurse Practitioner Psychiatric/Mental Health; Emergency Provider Student in an Organized Health Care Education/Training Program; PCP Internal Medicine; Visit Provider Internal Medicine | DX: R94.31 Abnormal electrocardiogram [ECG] [EKG] (principal); R07.9 Chest pain, unspecified | CPT/HCPCS: 93010 ==

== ENCOUNTER → 2025-01-19 18:35 | Outpatient (BNV) | payer OTHER, SELFPAY | PROVIDERS: Admitting Provider Nurse Practitioner Psychiatric/Mental Health; Emergency Provider Student in an Organized Health Care Education/Training Program; PCP Internal Medicine; Visit Provider Nurse Practitioner Psychiatric/Mental Health | DX: F33.3 Major depressive disorder, recurrent, severe with psychotic symptoms (principal); E11.65 Type 2 diabetes mellitus with hyperglycemia | CPT/HCPCS: 90792; 99231; 99232; 99238 ==

== ENCOUNTER → 2025-01-19 18:35 | Outpatient (BNV) | payer OTHER, SELFPAY | PROVIDERS: Admitting Provider Nurse Practitioner Psychiatric/Mental Health; Emergency Provider Student in an Organized Health Care Education/Training Program; PCP Internal Medicine; Visit Provider Nurse Practitioner Family | DX: E11.65 Type 2 diabetes mellitus with hyperglycemia (principal) | CPT/HCPCS: 99221 ==

== ENCOUNTER 2025-02-06 14:55 | Outpatient (AMB) | payer OTHER, SELFPAY ==
--- OUTSIDE RECORDS SUMMARY | 2025-02-01 10:00 | XMS_ITS | Encounter Summary ---
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 Name Role Phone Unavailable Primary Care Provider Unavailabl e Reason for Visit * Reason Comments Extraction Ext on tooth# 5 , 6 Encounter Details Date Type Department Care Team (Late st Contact Info) Description 02/01/2025 10:00 AM EDT Office Visit [facility] [address] [place] [address] Perez Romero DDS [address] [place] [address] Dental abscess (Primary Dx); Pain, dental; Non-restorable tooth Social History Tobacco Use Types Packs/Day Years Used Date Smoking Tobacco: Never Passive Smoke Exposure: Never Smokeless Tobacco: Never Alcohol Use Standard Drinks/Week Comments Never 0 (1 standard drink = 0.6 oz pur e alcohol) Sex and Gender Information Value Date Recorded Sex Assigned at Male 03/10/2022 10:33 AM EDT Legal Sex Male 10:33 AM EDT Gender Identity Male 09/20/2024 9:45 AM EDT Sexual Orientation Straight 09/20/2024 9: 45 AM EDT documented as of this encounter Last Filed Vital Signs Vital Sign Reading Time Taken Comments Blood Pressure 128/76 02/01/2025 10:14 AM EDT Pulse 70 02/01/2025 10:14 AM EDT Temperature - - Respiratory Rate - - Oxygen Saturation - - Inhaled Oxygen Concentration - - Weight - - Height - - Body Mass Index - - documented in this encounter Progress Notes * Perez Romero DDS - 02/01/2025 10:00 AM EDT Patient ID: Jasbir Joseph is a 54 y.o. male. Time Out: Timeout Date: 02/01/25, Timeout Time: 1013 (ext on tooth#5 , 6) Location: [facility] Tooth: Maxilla #s 5,6 Procedure: Extraction Verified the above with patient, chiropractic assistant, and provider. Confirmed via patient's chart, intraorally and by radiographs. Trains Dispatcher Supervisor: not applicable Chief Complaint Patient presents with Extraction Ext on tooth# 5 , 6 Medical Hx: Vitals: Blood pressure 128/76, pulse 70. Medical History[1] Medications: Encounter Medications[2] Consent Obtained: The risks, benefits, indications, potential complications, and alternatives were explained to the patient and informed consent was obtained with good understanding. Treatment Provided: Dental procedures in this visit D7140 - EXTRACTION, ERUPTED TOOTH OR EXPOSED ROOT (ELEVATION/FORCEPS REMOVAL) 5 (Completed) Service provider: Perez Romero DDS Billing provider: Perez Romero DDS [id number] - CASE PRESENTATION, DETAILED AND EXTENSIVE TREATMENT PLANNING (Completed) Service provider: Perez Romero DDS Billing provider: Perez Romero DDS [id number] - EXTRACTION, ERUPTED TOOTH REQ REMOVAL OF BONE AND/OR SECTIONING OF TOOTH 6 (Completed) Service provider: Perez Romero DDS Billing provider: Perez Romero DDS Diagnosis: Caries, non-restorable tooth, pain Topical: 20% Benzocaine Anesthesia: 2% Lidocaine (Xylocaine) w/ 1:100,000 epinephrine Number of Cartridges: 2 Injection Type: Buccal infiltration, Palatal infiltration, and Intrapapillary injection Confirmed profound anesthesia. Pharyngeal curtain and bite block placed. Removed tooth with elevators and forceps. Apices intact. Surgical Extraction: Yes, sectioned tooth with surgical handpiece and bur 151 L Socket curetted & irrigated with sterile water. Compressed alveolar bone. Sutures: Chromic Gut All adjacent teeth intact. Hemostasis achieved. Complications: None, Long bayonet root shape of canine # 6. Pt tolerated procedure well. Jasbir stated having analgesics at home . Pt wanting to keep # 32 soft tissue impacted, presenting asymptomatic; after completing the last max. Three extractions pending on left side, and healing , Jasbir would like to start with impressions. However, prognosis is guarded since he is a severe gager . Written and verbal post-op instructions given. Patient discharged in stable condition; ambulatory, alert, and oriented. NV: F/U as needed / cont exos . Lunch Truck Driver: Alaina Ervin Dentist: Perez Romero DDS [1] Past Medical History: Diagnosis Date Asthma COPD (chronic obstructive pulmonary disease) ([facility]) Diabetes mellitus ([facility]) Hypertension [2] Outpatient Encounter Medications as of 02/01/2025 Medication Sig Dispense Refill acetaminophen (Tylenol 8 Hour) 650 MG ER tablet Take 1 tablet (650 mg) by mouth every 8 (eight) hours if needed for mild pain. Do not crush, chew, or split. (Patient not taking: Reported on 02/01/2025) 20 tablet 0 ibuprofen 400 MG tablet Take 1 tablet (400 mg) by mouth every 6 (six) hours if needed for moderate pain. (Patient not taking: Reported on 02/01/2025) 20 tablet 0 No facility-administered encounter medications on file as of 02/01/2025. documented in this encounter Plan of Treatment Upcoming Encounters Date Type Department Care Team (Late st Contact Info) Description 03/09/2025 10:00 AM EDT Office Visit [facility] [address] [place] [address] Perez Romero DDS [address] [place] [address] documented as of this encounter Procedures Procedure Name Priority Date/Time Associated Diagnosis Comments 6 EXTRACTION, ERUPTED TOOTH REQ REMOVAL OF BONE AND/OR SECTIONING OF TOOTH Routine 02/01/2025 10:00 AM EDT 5 EXTRACTION, ERUPTED TOOTH OR EXPOSED ROOT (ELEVATION/FORCEPS REMOVAL) Routine 02/01/2025 10:00 AM EDT CASE PRESENTATION, DETAILED AND EXTENSIVE TREATMENT PLANNING Routine 02/01/2025 10:00 AM EDT documented in this encounter Visit Diagnoses Diagnosis Dental abscess- Primary Periapical abscess without sinus Pain, dental Non-restorable tooth documented in this encounter
--- OUTSIDE RECORDS SUMMARY | 2025-02-02 13:30 | XMS_ITS | Encounter Summary ---
Author Organization [facility] Address [address] [address] Phone Care Team Providers Care Stage Driver Name Role Phone Bon Arvizu MD Primary Care Provider [phone] Reason for Visit * Reason Comments Stage 3b chronic kidney disease Encounter Details Date Type Department Care Team (Late st Contact Info) Description 02/02/2025 1:30 PM EDT Office Visit [facility] [address] [place] [address] Tashi Bonner MD [address] [address] Stage 3a chronic kidney disease (HCC) (Primary Dx); Type 2 diabetes mellitus with diabetic chronic kidney disease (HCC) Social History Tobacco Use Types Packs/Day Years Used Date Smoking Tobacco: Never Assessed Sex and Gender Information Value Date Recorded Sex Assigned at Not on file Legal Sex Male 5:04 PM EST Gender Identity Not on file Sexual Orientation Not on file documented as of this encounter Last Filed Vital Signs Vital Sign Reading Time Taken Comments Blood Pressure 152/80 02/02/2025 1:05 PM EDT Pulse 78 02/02/2025 1:05 PM EDT Temperature - - Respiratory Rate - - Oxygen Saturation 92% 02/02/2025 1:05 PM EDT Inhaled Oxygen Concentration - - Weight 117 kg (258 lb) 02/02/2025 1:05 PM EDT Height - - Body Mass Index 39.23 01/28/2024 1:08 PM EDT documented in this encounter Progress Notes * Tashi Bonner MD - 02/02/2025 1:30 PM EDT Images from the original note were not included. Patient Name: Jasbir Joseph, Male Date of : 1970, 54 y.o. Date: 02/02/2025 History of Present Illness Jasbir Joseph is a 54 y.o. 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 Serum creatinine has been fluctuating between 1.1 and 1.3 for the last several months. He has no renal issues in the past. The recent renal ultrasound sonogram was unremarkable no hydronephrosis. He is unaware of family members with kidney problems, except for dad with htn No LUTS, he is on flomax Today - Previously advised to switch from atenolol to losartan for hypertension management and potential kidney benefits - Blood work is done at [facility], with recent labs performed a couple of weeks ago The following portions of the patient's chart were reviewed in this encounter and updated as appropriate: Allergies Meds Problems Med Hx Surg Hx Fam Hx EMR: [place] Past Medical History: Diagnosis Date Asthma Chondrosarcoma (HCC) Chronic airway obstruction, not elsewhere classified (HCC) Chronic kidney disease Esophageal reflux Essential hypertension Other and unspecified hyperlipidemia Review of Systems Constitutional: Negative for chills and fever. Respiratory: Negative for cough and shortness of breath. Cardiovascular: Negative for chest pain, palpitations and leg swelling. Gastrointestinal: Negative for abdominal pain, nausea and vomiting. Genitourinary: Negative for dysuria, frequency, hematuria and urgency. No dysuria, hematuria, dribbling, incontinence No nausea, vomiting, diarrhea No history of fever, chills Medication List Current Outpatient Medications Medication Sig Dispense Refill atorvastatin (LIPITOR) 40 MG tablet Take 40 mg by mouth 1 (one) time each day BD Pen Needle Estrella 2nd Gen 32G X 4 MM misc See administration instructions Blood Pressure Monitoring (Omron 10 Series BP Monitor) device 1 Units 1 (one) time each day 1 each 0 cholecalciferol (VITAMIN D-3) 50 MCG (2000 UT) capsule Take by mouth 1 (one) time each day escitalopram (LEXAPRO) 20 MG tablet Take 20 mg by mouth 1 (one) time each day in the morning ferrous sulfate 325 (65 Fe) MG tablet Take 1 tablet by mouth 1 (one) time each day Lantus SoloStar 100 UNIT/ML injection INJECT 20 UNIT (0.2 ML) SUBCUTANEOUSLY EVERY EVENING FOR 30 DAYS losartan (Cozaar) 25 MG tablet Take 2 tablets (50 mg total) by mouth 1 (one) time each day 180 tablet 3 metFORMIN (GLUCOPHAGE) 1000 MG tablet Take 1,000 mg by mouth omeprazole (PriLOSEC) [address] capsule TAKE 1 CAPSULE BY MOUTH DAILY FOR 90 DAYS tamsulosin (FLOMAX) 0.4 MG 24 hr capsule TAKE 1 CAPSULE BY MOUTH AT BEDTIME FOR 30 DAYS Ventolin HFA 108 (90 Base) MCG/ACT inhaler TAKE 2 PUFFS BY MOUTH EVERY 4 HOURS NEEDED FOR WHEEZE Dapagliflozin Propanediol 10 MG tablet Take 10 mg by mouth 1 (one) time each day in the morning 90 tablet 3 No current facility-administered medications for this visit. Allergy List No Known Allergies Physical Exam BP 152/80 Pulse 78 Wt 258 lb (117 kg) SpO2 92% BMI 39.23 kg/m?? Vitals reviewed. Constitutional: He is oriented to person, place, and time. No distress. Central obesity HEENT: Mouth/Throat: Oropharynx is clear and moist. Eyes: EOM are normal. Pupils are equal, round, and reactive to light. Cardiovascular: Normal rate, regular rhythm and normal heart sounds. He exhibits no edema. Pulmonary/Chest: Effort normal and breath sounds normal. No respiratory distress. Abdominal: Soft. There is no abdominal tenderness. Musculoskeletal: Normal range of motion. Neurological: He is alert and oriented to person, place, and time. Skin: Skin is warm and dry. Labs Chemistry Lab Units 01/03/25 0939 06/19/23 0000 02/11/23 1218 SODIUM mmol/L 142 141 142 POTASSIUM mmol/L 3.8 4.4 4.3 CO2 mmol/L 29 31 27 BUN mg/dL 9 10 10 CREATININE mg/dL 1.57* 1.27 1.15 CHLORIDE mmol/L 105 100.0 104 EGFR 46 -- >60 HEMOGLOBIN g/dl 10.6* -- -- HEMATOCRIT % 33.2* -- -- PLATELETS AUTO X10*3/uL 197 -- -- Bone Mineral Lab Units 01/03/25 0939 06/19/23 0000 02/11/23 1218 CALCIUM mg/dL 8.8 9.1 9.6 PHOSPHORUS mg/dL 3.0 -- -- PTH pg/mL 51.4 -- -- VITAMIN D ng/mL 88.8 -- -- MAGNESIUM mg/dL 1.5* -- -- Urine Lab Units 01/03/25 0957 PROT/CREAT RATIO UR 0.24* ALB MG/G CREAT UR ug/mg cr 108.1* Iron Studies Lab Units 01/03/25 0939 FERRITIN ng/mL 39 TIBC mcg/dL 230 IRON SATURATION % 22 Assessment & Plan 1. Stage 3a chronic kidney disease (HCC) 2. Type 2 diabetes mellitus with diabetic chronic kidney disease (HCC) HTN DM Obesity 52-year-old man with a history of diabetes mellitus, htn, obesity and chondrosarcoma Renal ultrasonogram did not reveal any obstruction. Urine studies were benign without any significant proteinuria or hematuria therefore glomerular disease seem unlikely. Baseline serum creatinine ~ 1.3--> 1.4 mg/dL. - egfr 57--> 50 24 urine collection 1050 mL of urine. Creatinine clearance of 59.5.( ) Placing him as CKD 3a No signficant microalbuminuria in the last labs ( ) DM well controlled - last A1c 7.2 ( ) Recommend losartan dose increased from 25 mg to 50mg for blood pressure control for its beneficial effect in diabetics start [id number] for renal protection in the setting of diabetes Counseled about low-salt diet, diabetes control, weight loss. Recommend GLP-1 agonist for wt loss and dm control Orders Placed This Encounter Protein, Total, Random Urine w/Creatinine (Protein/Creat Ratio) Hemoglobin A1c CBC and Differential Basic Metabolic Panel Urinalysis with microscopic Urine Albumin / Creatinine Ratio Magnesium Phosphorus Dapagliflozin Propanediol 10 MG tablet losartan (Cozaar) 25 MG tablet Return in about 6 months (around 08/02/2025). Tashi Bonner MD documented in this encounter Plan of Treatment Upcoming Encounters Date Type Department Care Team (Late st Contact Info) Description 08/03/2025 1:15 PM EDT Office Visit [facility] [address] [place] [address] Tashi Bonner MD [address] [facility] [address] [place] [id number] Scheduled Orders Name Type Priority Associated Diagnoses Orde r Schedule Protein, Total, Random Urine w/Creatinine (Protein/Creat Ratio) Lab Routine Stage 3a chronic kidney disease (HCC) Type 2 diabetes mellitus with diabetic chronic kidney disease (HCC) Expected: 08/02/2025 (Approximate), Expires: 03/04/2026 Hemoglobin A1c Lab Routine Stage 3a chronic kidney disease (HCC) Type 2 diabetes mellitus with diabetic chronic kidney disease (HCC) Expected: 08/02/2025 (Approximate), Expires: 03/04/2026 CBC and Differential Lab Routine Stage 3a chronic kidney disease (HCC) Type 2 diabetes mellitus with diabetic chronic kidney disease (HCC) Expected: 08/02/2025 (Approximate), Expires: 03/04/2026 Basic Metabolic Panel Lab Routine Stage 3a chronic kidney disease (HCC) Type 2 diabetes mellitus with diabetic chronic kidney disease (HCC) Expected: 08/02/2025 (Approximate), Expires: 03/04/2026 Urinalysis with microscopic Lab Routine Stage 3a chronic kidney disease (HCC) Type 2 diabetes mellitus with diabetic chronic kidney disease (HCC) Expected: 08/02/2025 (Approximate), Expires: 03/04/2026 Urine Albumin / Creatinine Ratio Lab Routine Stage 3a chronic kidney disease (HCC) Type 2 diabetes mellitus with diabetic chronic kidney disease (HCC) Expected: 08/02/2025 (Approximate), Expires: 03/04/2026 Magnesium Lab Routine Stage 3a chronic kidney disease (HCC) Type 2 diabetes mellitus with diabetic chronic kidney disease (HCC) Expected: 08/02/2025 (Approximate), Expires: 03/04/2026 Phosphorus Lab Routine Stage 3a chronic kidney disease (HCC) Type 2 diabetes mellitus with diabetic chronic kidney disease (HCC) Expected: 08/02/2025 (Approximate), Expires: 03/04/2026 documented as of this encounter Visit Diagnoses Diagnosis Stage 3a chronic kidney disease (HCC)- Primary Type 2 diabetes mellitus with diabetic chronic kidney disease (HCC) documented in this encounter Care Teams Stage Driver Relationship Specialty Start Date End Date Bon Arvizu MD [address] [place] [address] PCP - General Internal Medicine 06/04/22 documented as of this encounter
--- NOTE | 2025-02-06 16:06 | A.OFFPC_ITS ---
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 Required: No Accompanied by: Self / Same As Patient Allergies pollen extracts (POLLEN) Allergy (Mild, Verified 02/06/25 16:32) RUNNY NOSE cat dander (CATS) Allergy (Unknown, Verified 02/06/25 16:32) UNKNOWN dog dander (DOGS) Allergy (Unknown, Verified 02/06/25 16:32) UNKNOWN mold (MOLD) Allergy (Unknown, Verified 02/06/25 16:32) UNKNOWN lactose Adverse Reaction (Verified 02/06/25 16:32) Abdominal Pain Medication List - Last Reconciled 02/06/25 by Bon Arvizu MD albuterol sulfate 90 mcg/actuation (Ventolin HFA) 2 puffs inhalation Q4-6H PRN atorvastatin 40 mg PO DAILY cholecalciferol (vitamin D3) 50 mcg PO DAILY escitalopram oxalate 20 mg PO DAILY ferrous sulfate 325 mg PO DAILY insulin glargine (Lantus Solostar U-100 Insulin) 15 units (0.15 mL) subcut DAILY losartan 25 mg PO DAILY metformin 1,000 mg PO BID 90 days olanzapine 5 mg PO BID 30 days omeprazole 40 mg PO DAILY ondansetron HCl 4 mg PO Q8H PRN tamsulosin 0.4 mg PO BEDTIME thiamine HCl (vitamin B1) 100 mg PO BID Tobacco use date assessed: 02/06/25 Dental Screening Dental Screen Date: 02/06/25 Did you have a dental visit in the last 12 months?: Yes Did you have a dental problem in the last 6 months where you did not have access to dental care?: No Was dental information given to patient?: Patient has dentist HPI follow up HPI Details Patient comes in today for his follow up visit States that he feels okay He denies any headaches or dizziness Denies any chest pains, no increased SOB No nausea/vomiting, no abdominal pain No change in bowel habits noted Relates (+) increase in his low back pain lately - he is aware that he has gained some weight since his last visit and this is likely what is causing his increased low back pain lately He had his follow up labs done a couple of weeks ago - to discuss his results [facility] Medical History Suicidal ideation Situational crisis Suicidal ideation Psychosis Chest pain Recurrent major depression Allergic rhinitis Insomnia Palpitations Vitamin D deficiency Chronic kidney disease, stage III (moderate) GERD without esophagitis Restrictive lung disease Obesity (BMI 30-39.9) Benign essential hypertension Pure hypercholesterolemia Diabetes mellitus Pulmonary emboli Chondrosarcoma Hyperlipidemia Chronic restrictive lung disease COPD (chronic obstructive pulmonary disease) Asthma Surgical History History of esophagogastroduodenoscopy (EGD) H/O colonoscopy History of inguinal hernia repair Hx of exploratory thoracotomy H/O tooth extraction Family History Father Hypertension Kidney failure, acute Mother Lung cancer Family/Other Diabetes Social History Household Members: Other Household Members Other:: brother Housing: Unknown / Unable to assess Do you presently have visiting nurse or other home services: No Alcohol intake: former Patient Tobacco Use Status: Never used Tobacco e-Cigarette/Vaping Use: Never Used Second Hand Smoke Exposure: No Advance Directives Date on File: 10/25/15 service: No Current occupational status: unemployed Sexual orientation: Straight/Heterosexual Cognitive needs: No Hearing needs: No Vision needs: Yes (Glasses) Questionnaire Thrive Questionnaire Date Thrive assessed: 01/20/25 I am a: Patient What is your living situation today?: I have a steady place to live Within the past 12 months, did the food you bought not last and you didn't have the money to get more?: I choose not to answer this question Within the past 12 months, did you worry whether your food would run out before you got money to buy more?: I choose not to answer this question Do you have trouble paying for medicines?: I choose not to answer this question Do you have trouble getting transportation to medical appointments?: I choose not to answer this question Do you have trouble paying your heating and electricity bill?: I choose not to answer this question Do you have trouble taking care of your child, family member or friend?: I choose not to answer this question Do you have trouble with day-to-day activities such as bathing, preparing meals, shopping, managing finances, etc.?: I choose not to answer this question Are you currently unemployed and looking for a job?: Yes Are you interested in more education?: No Please select the resources that you would like help with: None Currently or been in a relationship where the following occur: I choose not to answer THRIVE Score: 0 AUDIT C Alcohol Use Questionnaire (AUDIT-C) 1. How often do you have a drink containing alcohol?: Never 3. How often do you have six or more drinks on one occasion?: Never Total Score: 0 Score Reviewed/Action Taken: Yes CATIE-7 AMB Questionnaire CATIE-7 Date CATIE - 7 assessed: 09/13/24 Source: Developed by Drs. Tashi Michael, Laura Arcehr, Ambrosio Xie and colleagues, with an educational maría elena from [employer]. Review of Systems Const Denies chills, Denies difficulty sleeping (Rx helping a lot), Denies fatigue, Denies fever(s) and Denies headache(s) ENT Denies dysphagia, Denies dizziness, Denies otalgia, Denies headache(s), Denies neck pain, Denies odynophagia and Denies sore throat Card Denies chest pain, Denies rapid heart rate, Denies palpitations and Denies dyspnea Resp Denies chest congestion, Denies cough and Denies dyspnea GI Denies abdominal pain, Denies constipation, Denies dysphagia, Denies heartburn, Denies diarrhea, Denies nausea, Denies odynophagia and Denies vomiting Denies difficulty urinating, Denies dysuria, Denies nocturia and Denies urinary frequency Musc Reports back pain (over the lower back - increased lately), Denies arthralgias and Denies neck pain Skin/Breast Denies rash Neuro Denies dizziness and Denies headache(s) Psych Reports anxiety (better controlled) Endo Denies fatigue and Denies palpitations Physical exam (Primary Care) Vital Signs: Last Vital Signs Pulse 80 02/06/25 16:07 BP 130/84 02/06/25 16:07 Pulse Ox 92 02/06/25 16:07 Oxygen Delivery Method Room Air 02/06/25 16:07 BMI result Body Mass Index 38.6 Tobacco/Smoking Status: Tobacco use Status Tobacco use date assessed 02/06/25 02/06/25 16:15 Patient Tobacco Use Status Never used Tobacco 02/06/25 16:15 e-Cigarette/Vaping Use Never Used 02/06/25 16:15 Thrive Assessment: Date of Thrive Assessment Date Thrive assessed 01/20/25 02/06/25 16:15 Currently or been in a relationship where the following occur: I choose not to answer Const General: no acute distress, alert and poor hygiene (appears unkempt and smelly) HENMT Ears: TM's normal bilaterally and EAC's normal Throat: Yes posterior oropharynx normal and Yes tonsils normal (no TP congestion) Neck Neck: Yes supple and No lymphadenopathy Thyroid: Thyroid normal Resp Auscultation: clear to auscultation bilaterally, no rales and no wheezes Cardio Rate: regular rate Rhythm: regular rhythm Heart sounds: no murmurs GI Palpation (GI): Soft to palpation and nontender Auscultation: normal bowel sounds General: Yes no CVA tenderness Back/Spine/Pelvis Back: no CVA tenderness Thoracic/Lumbar Spine: lumbar spinal tenderness Skin Rashes: no rashes Extrem General: Yes no clubbing, cyanosis or edema Results Reviewed Results Reviewed: Laboratory Tests 11/03/24 01/10/25 01/19/25 09:58 12:38 14:46 WBC Hgb Hct Plt Count Sodium Potassium Creatinine Estimated GFR Random Glucose Hemoglobin A1c % Calcium Magnesium 1.7 AST ALT Triglycerides 222 H Cholesterol 165 LDL Cholesterol, Calc 86 HDL Cholesterol 35 L Lipase 26 TSH Free T4 Urine pH 8.5 Ur Specific [place] 1.015 Urine Protein Trace Urine Glucose (UA) Negative Urine Blood Negative Urine Nitrite Negative Ur Leukocyte Esterase Negative 01/19/25 01/20/25 15:41 08:10 WBC 6.9 Hgb 13.7 L D Hct 40.6 L Plt Count 216 Sodium 141 Potassium 4.5 Creatinine 1.46 H Estimated GFR 50 Random Glucose 182 H Hemoglobin A1c % 7.2 H Calcium 9.6 Magnesium AST 35 ALT 43 H Triglycerides 421 H Cholesterol 208 H LDL Cholesterol, Calc TNP HDL Cholesterol 40 L Lipase TSH 2.33 Free T4 0.84 Urine pH Ur Specific [place] Urine Protein Urine Glucose (UA) Urine Blood Urine Nitrite Ur Leukocyte Esterase Coding Level of Care Code Est Pt Level 4 (19484) Complex EM visit Add On G2211 Diagnoses Type 2 diabetes mellitus with hyperglycemia, without long-term current use of insulin E11.65 Diabetes mellitus type: type 2 Diabetes mellitus intermodal customer service insulin use: without intermodal customer service use Diabetes mellitus complication status: with hyperglycemia Pure hypercholesterolemia E78.00 Benign essential hypertension I10 Stage 3a chronic kidney disease N18.31 Chronic kidney disease stage 3 subtype: stage 3a (GFR 45-59) Vitamin D deficiency E55.9 Elevated TSH R79.89 Chronic restrictive lung disease J98.4 GERD without esophagitis K21.9 Urinary frequency R35.0 Insomnia, unspecified type G47.00 Insomnia type: unspecified Anxiety F41.9 Episode of recurrent major depressive disorder, unspecified depression episode severity F33.9 Major depression episode severity: unspecified Obesity (BMI 30-39.9) E66.9 Assessment & Plan Assessment & Plan (1) Diabetes mellitus: Comment: taking Lantus insulin, Metformin, Montelukast Code(s): E11.9 - Type 2 diabetes mellitus without complications Category: Medical Qualifiers: Diabetes mellitus type: type 2 Diabetes mellitus intermodal customer service insulin use: without intermodal customer service use Diabetes mellitus complication status: with hyperglycemia Qualified Code(s): E11.65 - Type 2 diabetes mellitus with hyperglycemia Plan: His HgbA1c was at 7.2% on his labs done a couple of weeks ago (HgbA1c was previously at 6.8% just last month and at 5.5% a few months ago) - goal is <7.0% Reinforced diabetic diet Continue Lantus 15 units QD and Metformin 1000 mg BID for now but have advised patient that if he cannot get his HgbA1c back down to <6.5% over the next few months, then we may need to make some adjustments or changes to his medication regimen (2) Pure hypercholesterolemia: Code(s): E78.00 - Pure hypercholesterolemia, unspecified Category: Medical Plan: Results of his labs done a couple of weeks ago reviewed and discussed with patient - he is advised that his cholesterol levels have all increased significantly from previous, with his triglycerides going up the most to now over 400 mg/dl Reinforced low cholesterol diet Continue Atorvastatin 40 mg QD for now Will recheck his labs and fasting lipids in 3 months for follow-up - he is advised that we may also need to increase his dosage if he cannot get his numbers back under control over the next few months (3) Benign essential hypertension: Code(s): I10 - Essential (primary) hypertension Category: Medical Plan: Reinforced low sodium diet - goal is systolic BP of 120 mm or less Continue Losartan 25 mg QD (4) Chronic kidney disease, stage III (moderate): Code(s): N18.30 - Chronic kidney disease, stage 3 unspecified Category: Medical Qualifiers: Chronic kidney disease stage 3 subtype: stage 3a (GFR 45-59) Qualified Code(s): N18.31 - Chronic kidney disease, stage 3a Plan: His serum creatinine and GFR have remained steady and are mostly unchanged on his recent labs Renal US done last year came back normal Will continue to monitor his renal function regularly/closely Follow up with nephrology as scheduled (5) Vitamin D deficiency: Code(s): E55.9 - Vitamin D deficiency, unspecified Category: Medical Plan: Continue Vitamin D3 2000 units QD (6) Elevated TSH: Code(s): R79.89 - Other specified abnormal findings of blood chemistry Category: Medical Plan: His serum TSH and free T4 levels were again both normal on his recent labs; patient is clinically euthyroid Will continue to monitor his TFTs regularly (7) Chronic restrictive lung disease: Comment: CHRONIC RESTRICTIVE LUNG DISEASE SECONDARY TO, PAST 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 GROSS OBESITY ALSO CONTRIBUTES TO RESTRICTIVE DISORDER. Code(s): J98.4 - Other disorders of lung Category: Medical Plan: Continue Albuterol HFA 2 inhalations every 6 hours PRN He used to be on Trelegy but his insurance declined to continue covering his Rx PFTs done last year showed only findings of mild COPD Follow up with pulmonary as scheduled (8) GERD without esophagitis: Code(s): K21.9 - Gastro-esophageal reflux disease without esophagitis Category: Medical Plan: Dietary restrictions reinforced Continue Omeprazole 40 mg QD (9) Urinary frequency: Code(s): R35.0 - Frequency of micturition Category: Medical Plan: Patient states that his urinary frequency has improved a lot (though not completely) with Tamsulosin - symptoms are likely due to BPH Serum PSA level was normal when last checked Continue Tamsulosin 0.4 mg Q HS To consider referral to urology if his urinary frequency or symptoms continue to persist or progress (10) Insomnia: Code(s): G47.00 - Insomnia, unspecified Category: Medical Qualifiers: Insomnia type: unspecified Qualified Code(s): G47.00 - Insomnia, unspecified Plan: Sleep hygiene reinforced Continue Trazodone 50 mg Q HS PRN - states that Rx has helped a lot with his sleep lately (11) Anxiety: Code(s): F41.9 - Anxiety disorder, unspecified Category: Medical Plan: Continue Escitalopram 20 mg QD and Lorazepam 0.5 mg BID PRN (12) MDD (major depressive disorder), recurrent episode: Code(s): F33.9 - Major depressive disorder, recurrent, unspecified Category: Medical Qualifiers: Major depression episode severity: unspecified Qualified Code(s): F33.9 - Major depressive disorder, recurrent, unspecified Plan: Continue Escitalopram 20 mg QD and Olanzapine 5 mg BID Follow up with psychiatry as scheduled (13) Obesity (BMI 30-39.9): Comment: He remains grossly overweight. Denies symptoms of sleep apnea. Trying to lose weight on his own with diet and exercise. DID LOSE ABOUT 10 LB IN THE LAST 6 MONTHS. However he is not able to do much exercise, as he cannot walk long distance Code(s): E66.9 - Obesity, unspecified Category: Medical Plan: Reinforced diet/exercise as tolerated/lose weight Plan Follow up in 3 months Orders: Orders Hemoglobin A1c 3 Months E11.9 - Type 2 diabetes mellitus without complications Lipid Panel 3 Months E78.00 - Pure hypercholesterolemia, unspecified Complete Blood Count Auto Diff 3 Months D64.9 - Anemia, unspecified Comprehensive [place]. Panel Fast 3 Months E78.00 - Pure hypercholesterolemia, unspecified Microalbumin, Random (w Creat) 3 Months E11.9 - Type 2 diabetes mellitus without complications TSH reflex Free T4 3 Months E78.00 - Pure hypercholesterolemia, unspecified UA CC w/rflx Micro + Cult 3 Months R30.0 - Dysuria Vitamin D 25-OH Total 3 Months E55.9 - Vitamin D deficiency, unspecified Vitamin B12 and Folate 3 Months E53.8 - Deficiency of other specified B group vitamins
[2025-02-06 16:07] VITALS: BP 130/84; PULSE 80; O2SAT 92; BMI 38.6
--- OUTSIDE RECORDS SUMMARY | 2025-02-06 16:59 | XMS_ITS | Clinical Summary ---
Author Organization [facility] Address [address] [place] [address] Care Team Providers Care Sanitary Plumber Name Role Phone Unavailable Primary Care Provider Unavailabl e Allergies No known active allergies Medications acetaminophen (Tylenol 8 Hour) 650 MG ER tablet Take 1 tablet (650 mg) by mouth every 8 (eight) hours if needed for mild pain. Do not crush, chew, or split. 20 tablet Active Additional Information Patient not taking.Reported on 02/01/2025 ibuprofen 400 MG tablet Take 1 tablet (400 mg) by mouth every 6 (six) hours if needed for moderate pain. 20 tablet Active Additional Information Patient not taking.Reported on 02/01/2025 Active Problems Problem Noted Date Diagnosed Date Non-restorable tooth 10/24/2024 Pain, dental 10/24/2024 Encounters Date Type Department Care Team Description 02/01/2025 10:00 AM EDT Office Visit [facility] [address] [place] [address] Perez Romero DDS Dental abscess (Primary Dx); Pain, dental; Non-restorable tooth from Last 3 Months Social History Tobacco [...] Upcoming Encounters Date Type Department Care Team (Rashmi st Contact Info) Description 03/09/2025 10:00 AM EDT Office Visit [facility] [address] [place] [address] Perez Romero, DDS [address], [place] [id number] Health Maintenance Due Date Last Done Comments [...] 2 - PCV) 2020 10/04/2015 Zoster Vaccines (2 of 2) 02/16/2025 12/22/2024 Tobacco Screening 02/01/2026 02/01/2025 Dental X-Ray: Full Mouth 10/26/2027 10/24/2024, 05/13 DTaP/Tdap/Td Vaccines (3 - Td or Tdap) 09/27/2034 09/27/2024, 04/09/2016 COVID-19 Vaccine Completed 03/21/2024, , 06/05/2020 RSV Patients and Patients Aged 60 years or older Completed 12/22/2024 Hepatitis B Vaccines Completed 01/12/2025, 08/05/19 Influenza Vaccine Completed 01/20/2025, , 03/27/2023, Additional history exists HIB Vaccines Aged Out [...] OF TOOTH Routine 02/01/2025 10:00 AM EDT CASE PRESENTATION, DETAILED AND EXTENSIVE TREATMENT PLANNING Routine 02/01/2025 10:00 AM EDT 5 EXTRACTION, ERUPTED TOOTH OR EXPOSED ROOT (ELEVATION/FORCEPS REMOVAL) Routine 02/01/2025 10:00 AM EDT PANORAMIC RADIOGRAPHIC IMAGE Routine 10/24/2024 10:00 AM EDT PERIODIC ORAL EVALUATION - ESTABLISHED PATIENT Routine 03/15/2019 12:00 AM EST from Last 3 Months or Most Recently Relevant to Health Maintenance Insurance [place] AD[place]
--- OUTSIDE RECORDS SUMMARY | 2025-02-06 16:59 | XMS_ITS | Clinical Summary ---
Author Organization [facility] Address [address] [place] [address] [address] [place] [address] Phone Care Team Providers Care Adding Machine Mechanic Name Role Phone Bon Arvizu MD Primary Care Provider +1- [phone] Allergies No known active allergies Medications Ventolin HFA 108 (90 Base) MCG/ACT inhaler TAKE 2 PUFFS BY MOUTH EVERY 4 HOURS NEEDED FOR WHEEZE 023 Active atorvastatin (LIPITOR) 40 MG tablet Take 40 mg by mouth 1 (one) time each day 023 Active cholecalcifero l (VITAMIN D-3) 50 MCG (2000 UT) capsule Take by mouth 1 (one) time each day 023 Active escitalopram (LEXAPRO) 20 MG tablet Take 20 mg by mouth 1 (one) time each day in the morning 023 Active ferrous sulfate 325 (65 Fe) MG tablet Take 1 tablet by mouth 1 (one) time each day 023 Active Lantus SoloStar 100 UNIT/ML injection INJECT 20 UNIT (0.2 ML) SUBCUTANEOUSLY EVERY EVENING FOR 30 DAYS 023 Active BD Pen Needle Estrella 2nd Gen 32G X 4 MM misc See administration instructions 023 Active metFORMIN (GLUCOPHAGE) 1000 MG tablet Take 1,000 mg by mouth 023 Active omeprazole (PriLOSEC) [address] capsule TAKE 1 CAPSULE BY MOUTH DAILY FOR 90 DAYS 023 Active tamsulosin (FLOMAX) 0.4 MG 24 hr capsule TAKE 1 CAPSULE BY MOUTH AT BEDTIME FOR 30 DAYS 023 Active Blood Pressure Monitoring (Omron 10 Series BP Monitor) device 1 Units 1 (one) time each day 1 each 024 Active Dapagliflozin Propanediol 10 MG tablet Take 10 mg by mouth 1 (one) time each day in the morning 90 tablet 3 025 2025 Active losartan (Cozaar) 25 MG tablet Take 2 tablets (50 mg total) by mouth 1 (one) time each day 180 tablet 3 025 2025 Active losartan (Cozaar) 25 MG tablet Take 1 tablet (25 mg total) by mouth 1 (one) time each day 90 tablet 3 025 2024 Discontinued losartan (Cozaar) 25 MG tablet Take 2 tablets (50 mg total) by mouth 1 (one) time each day 025 2024 Discontinued(R eorder (does not appear on AVS)) Active Problems Problem Noted Date Diagnosed Date Gastro-esophageal reflux disease without esophag itis 01/30/2025 Iron deficiency anemia 01/30/2025 History of adenomatous polyp of colon 01/30/2025 Diverticular disease of colon 01/30/2025 Allergic rhinitis 02/10/2006 Encounters Date Type Department Care Team Description 02/04/2025 Orders Only [facility] [address] [place] [phone] Tashi Bonner MD Stage 3b chronic kidney disease (HCC) 02/02/2025 1:30 PM EDT Office Visit [facility] [address] [place] [id number] Tashi Bonner MD Stage 3a chronic kidney disease (HCC) (Primary Dx); Type 2 diabetes mellitus with diabetic chronic kidney disease (HCC) 01/23/2025 Telephone [facility] [address] [address] Tashi Bonner MD 01/03/2025 Orders Only [facility] [address] [address] Tashi Bonner MD from Last 3 [...] (258 lb) 02/02/2025 1:05 PM EDT Height 172.7 cm (5' 8 ) 01/28/2024 1:08 PM EDT Body Mass Index 39.23 01/28/2024 1:08 PM EDT Plan of Treatment Upcoming Encounters Date Type Department Care Team (Late st Contact Info) Description 08/03/2025 1:15 PM EDT Office Visit [facility] [address] [place] [address] Tashi Bonner MD [address] [facility] [address] [place] [address] Health Maintenance Due Date Last [...] Foot Exam 09/25/2022 Influenza Vaccine (#1) 2025 01/09/2017 Diabetes: Hemoglobin A1C 04/05/2025 01/03/2025 Procedures Procedure Name Priority Date/Time Associated Diagnosis [...] URINE ORDERABLES Final Result Performing Organization Address [facility] de Phone Number [place] See order comments [place] [address] * (ABNORMAL) Albumin, urine, random (01/03/2025 9:57 [...] URINE ORDERABLES Final Result Performing Organization Address [facility] de Phone Number [place] See order comments [place] [address] * (ABNORMAL) Urinalysis with microscopic (01/03/2025 9:57 AM EDT) Color Urine Yellow See orde r comments Appearance Urine Clear See order comments pH Urine >=9.0 5.0 - 9.0 See order comments Glucose Urine Negative Negative mg/dL See order comments Blood, Urine Negative Negative See ord er comments Specific [place] Urine 1.010 1.005 - 1.025 See order [...] URINE ORDERABLES Final Result Performing Organization Address [facility] de Phone Number [place] See order comments [place] [address] * PTH, Intact (01/03/2025 9:39 AM EDT) Parathyroid Hormone, Intact 51.4 8.7 - 77.1 pg/mL See order comments 01/03/2025 9:39 AM EDT 01/03/2025 9:39 AM EDT us Tashi Bonner MD LAB HISTORICA [id number] RESULTS Final Result Performing Organization Address [facility] Phone Number [place] See order comments [place] [address] * Cystatin C w/GFR (01/03/2025 9:39 AM EDT) Cystatin C 2.09 See order comments Comment: REFRENCE RANGE 0.52-1.23 MG/L Performing Sites [facility], [facility] [address], [place], [place] Smokehouse Worker: Malik Salmeron M.D.,PhD eGFR by Cystatin C 30 See order comments Comment: REFERENCE RANGE:>=60 mL/min/1.73mE2 Performing Sites [facility], [address] [address], [place], [place] Smokehouse Worker: Malik Salmeron M.D.,PhD 01/03/2025 9:39 AM EDT 01/03/2025 9:39 AM EDT us Tashi Bonner MD LAB BLOOD ORDERABLES Final Result Performing Organization Address [facility] de Phone Number [place] See order comments [place] [address] * Iron Panel (Fe, TIBC, TSAT) (01/03/2025 [...] order comments [place] [address] * Vitamin D 25 Hydroxy (01/03/2025 9:39 [...] order comments [place] [address] * (ABNORMAL) CBC and Differential (01/03/2025 9:39 [...] BLOOD ORDERABLES Final Result Performing Organization Address [facility] Phone Number [place] See order comments [place] [address] * (ABNORMAL) Uric Acid (01/03/2025 9:39 AM EDT) Uric Acid 8.0(H) 3.4 - 7.0 mg/dL See order comments 01/03/2025 9:39 AM EDT 01/03/2025 9:39 AM EDT us Tashi Bonner MD LAB BLOOD ORDERABLES Final Result Performing Organization Address [facility] Phone Number [place] See order comments [place] [address] * Phosphorus (01/03/2025 9:39 AM EDT) Phosphorus, Serum 3.0 2.7 - 4.5 mg/dL See order comments 01/03/2025 9:39 AM EDT 01/03/2025 9:39 AM EDT us Tashi Bonner MD LAB BLOOD ORDERABLES Final Result Performing Organization Address [facility] de Phone Number [place] See order comments [place] [address] * (ABNORMAL) Magnesium (01/03/2025 9:39 AM EDT) Magnesium 1.5(L) 1.6 - 2.6 mg/dL See order comments 01/03/2025 9:39 AM EDT 01/03/2025 9:39 AM EDT us Tashi Bonner MD LAB BLOOD ORDERABLES Final Result Performing Organization Address [facility] de Phone Number [place] See order comments [place] [address] * (ABNORMAL) Hemoglobin A1c (01/03/2025 9:39 AM [...] average glucose, using the formula of the [id number] Average Glucose study (ADAG), Diabetes Care, Vol.31,#8, Dec. 2007 01/03/2025 9:39 AM EDT 01/03/2025 9:39 AM EDT Tashi Bonner MD LAB BLOOD ORDERABLES Final Result Performing Organization Address [facility] de Phone Number [place] See order comments [place] [address] * Ferritin (01/03/2025 9:39 AM EDT) Pathologist [facility] Ferritin 39 20 - 250 ng/mL See order comments 01/03/2025 9:39 AM EDT 01/03/2025 9:39 AM EDT Tashi Bonner MD LAB BLOOD ORDERABLES Final Result Performing Organization Address [facility] de Phone Number [place] See order comments [place] [address] * (ABNORMAL) Basic Metabolic Panel (01/03/2025 9:39 AM EDT) Pathologist [facility] Sodium 142 135 - 145 mmol/L See [...] order comments [place] [address] from Last 3 Months Insurance Care Teams Adding Machine Mechanic Relationship Specialty Start Date End Date Bon Arvizu MD [address] [place] [address] PCP - General Internal Medicine 06/04/22
--- OUTSIDE RECORDS SUMMARY | 2025-02-06 16:59 | XMS_ITS | Clinical Summary ---
Author Organization [facility] Address [address] [place] [address] Care Team Providers Care Card Seller Name Role Phone Unavailable Primary Care Provider [...]
--- OUTSIDE RECORDS SUMMARY | 2025-02-06 16:59 | XMS_ITS | Patient Health Record ---
Author Organization [facility] Address [address] [place] [address] Care Team Providers Care Smearer Name Role Phone Fox uK MD Primary Care Provider Briana Tashi Erwin Unavailable [phone] Alisha Moore Unavailable Unavailable Allergies No Known [...] Problem Status W/U Status Risk Notes Problem 061351808 Colon cancer screening (Z12.11) Active confirmed Problem 262491163 History of adenomatous polyp of colon (Z86.010) Active confirmed Problem Diverticular disease of colon (895019242) Diverticulosis of large intestine without perforation or abscess without bleeding (K57.30) Active confirmed Problem 990222060 Gastroesophageal reflux disease without esophagitis (K21.9) Active confirmed Problem 425130877696130 Preprocedural examination (Z01.818) Active confirmed Problem 20164603 Iron deficiency anemia, unspecified iron deficiency anemia type (D50.9) Active confirmed Plan Of Treatment Pending Test Test Name Order Date Pathology 07/13/2023 Future Test Test Name Order Date UPPER GI ENDOSCOPY 06/23/2017 COLONOSCOPY 06/23/2017 COLONOSCOPY 04/17/2023 Insurance Providers Payer Name Payer Address Payer Phone Subscriber Number Group Number Insured Name Patient Relationship to Insured Coverage Start Date Coverage End Date [facility] [address] [address] [place], [place] [id number] KIAN MAHMOOD Self - patient is the insured MED[employer] [facility] [address] [place] [address] [id number] KIAN MAHMOOD Self - patient is the insured Medical (General) History Medical History History ICD Code IDDM Hypertension Heart murmur-Dr. Collins Asthma/COPD- Dr. Correa Pulmonary embolus in 2016--on Coumadin-- sees Dr. Moore Lung mass--surgery in 2008 a s below, with XRT; biopsied in approx 2015 and benign--followed by Dr. Tino Dimas ND,CVA,renal disease GERD--upper endoscopy August of 2017 with [...] History Surgery Date(Month/Year) Mass removed--Dr. Fields at [facility]-- Be nign , but had XRT 2008 Right inguinal hernia 1990 Ear tubes/Adenoids
--- OUTSIDE RECORDS SUMMARY | 2025-02-06 16:59 | XMS_ITS | Encounter Summary ---
Author Organization [facility] Address [address] [place] [address] Care Team Providers Care Haz Tech Name Role Phone Unavailable Primary Care Provider Unavailabl e Encounter Details Date Type Department Care Team (Late st Contact Info) Description 12/23/2021 Scanned Document [facility] [address] [place] [id number] Gastroenterology, Scan Social History Tobacco Use Types [...]
--- OUTSIDE RECORDS SUMMARY | 2025-02-06 16:59 | XMS_ITS | Encounter Summary ---
Author Organization [facility] Address [address] [address] Phone Care Team Providers Care Director Of Accounting Name Role Phone Bon Arvizu MD Primary Care Provider +1- [phone] Encounter Details Date Type Department Care Team (Late st Contact Info) Description 02/04/2025 Orders Only [facility] [address] [place] [address] Tashi Bonner MD [address] [address] Stage 3b chronic kidney disease (HCC) Social History Tobacco [...] Visit [facility] [address] [place] [address] Tashi Bonner MD [address] [address] documented as of this encounter Visit Diagnoses Diagnosis Stage 3b chronic kidney disease (HCC) documented in this encounter Care Teams Director Of Accounting Relationship Specialty Start Date End Date Bon Arvizu MD [address] [place] [address] PCP - General Internal Medicine 06/04/22 documented as of this encounter
== END 2025-02-06 16:42 | disposition home or self-care (01) ==
LOC: HO.HMCH 14:55
PROVIDERS: PCP Internal Medicine; Visit Provider Internal Medicine
DX: E11.65 Type 2 diabetes mellitus with hyperglycemia (principal); I12.9 Hypertensive chronic kidney disease with stage 1 through stage 4 chronic kidney disease, or unspecified chronic kidney disease; N18.31 Chronic kidney disease, stage 3a; E66.9 Obesity, unspecified; Z68.38 Body mass index [BMI] 38.0-38.9, adult; E78.00 Pure hypercholesterolemia, unspecified; E55.9 Vitamin D deficiency, unspecified; J98.4 Other disorders of lung; R35.0 Frequency of micturition; K21.9 Gastro-esophageal reflux disease without esophagitis; G47.00 Insomnia, unspecified; F41.9 Anxiety disorder, unspecified

== ENCOUNTER → 2025-02-06 14:55 | Outpatient (BNVA) | payer OTHER, SELFPAY | PROVIDERS: PCP Internal Medicine; Visit Provider Internal Medicine | DX: E11.65 Type 2 diabetes mellitus with hyperglycemia (principal); E11.22 Type 2 diabetes mellitus with diabetic chronic kidney disease; I12.9 Hypertensive chronic kidney disease with stage 1 through stage 4 chronic kidney disease, or unspecified chronic kidney disease; N18.31 Chronic kidney disease, stage 3a; E78.00 Pure hypercholesterolemia, unspecified; E55.9 Vitamin D deficiency, unspecified; R79.89 Other specified abnormal findings of blood chemistry; J98.4 Other disorders of lung; K21.9 Gastro-esophageal reflux disease without esophagitis; R35.0 Frequency of micturition; G47.00 Insomnia, unspecified; F41.9 Anxiety disorder, unspecified; F33.9 Major depressive disorder, recurrent, unspecified; E66.9 Obesity, unspecified; D64.9 Anemia, unspecified; R30.0 Dysuria; E53.8 Deficiency of other specified B group vitamins; Z68.38 Body mass index [BMI] 38.0-38.9, adult | CPT/HCPCS: 99212 ==

== ENCOUNTER 2025-02-28 15:01 | Inpatient (IN) | payer OTHER, SELFPAY ==
[2025-02-28 15:25] VITALS: BP 152/90; PULSE 73; O2SAT 94; BMI 28.1
[2025-02-28 15:39] VITALS: BP 157/75; PULSE 75; RESP 18; TEMP 36.6; O2SAT 95
[2025-02-28 15:49] LABS: Appearance Urine Clear; Glucose Urine UA Negative (Negative); PH 8.5 (5.0-9.0); Specific Gravity - Urine 1.015 (1.005-1.025); UMIC TRIGGER UACC YES
[2025-02-28 15:58] LABS: Cannabinoid Screen Urine Not Detected (Not Detect)
--- NOTE | 2025-02-28 16:07 | ED_ITS ---
HPI - Psych General Chief Complaint: Psychiatric Symptoms Stated Complaint: SI Time Seen by Provider: 02/28/25 15:44 Source: patient, EMS, RN notes reviewed and old records reviewed Mode of arrival: EMS Limitations: no limitations History of Present Illness ED Provider: JAZZY Galloway HPI Narrative: 54-year-old male with medical history of asthma, COPD, T2DM, HLD, HTN, GERD, CKD, depression, anxiety presents to the ED by EMS due to suicidal ideation. Patient states he was at [facility] having a therapy session discussing life stressors and started making comments of suicidal ideation of jumping off of a bridge. Patient states he has been experiencing increased stress as the residence he was living in was condemned forcing him to move in with his brother. Additionally, patient states he has had difficulty in finding a job. Patient states nothing is going my way, I just want to . Patient reports he is hearing 2 voices, one is telling him to jump off of a bridge, the other voice is telling him to overdose on his medication or to grab a knife to kill himself . Patient reports seeing shadows that take on human and animal shapes. Additionally, patient has area of opening over the L side of the chest that he has been picking at over the past 3 weeks. Patient states this area is itchy and irritated. Related Data Previous Rx's ?Medication ?Instructions ?Recorded ondansetron HCl 4 mg tablet 4 mg PO Q8H PRN nausea and 01/06/25 vomiting #12 tabs albuterol sulfate 90 mcg/actuation 2 puff inhalation Q 4-6H PRN for 01/18/25 aerosol inhaler (Ventolin HFA) wheezing #18 ea atorvastatin 40 mg tablet 40 mg PO DAILY #30 tabs 01/09 11/02 cholecalciferol (vitamin D3) 50 50 mcg PO DAILY #30 ca ps 01/24/25 mcg (2,000 unit) capsule escitalopram oxalate 20 mg tablet 20 mg PO DAILY #30 t abs 01/24/25 ferrous sulfate 325 mg (65 mg 325 mg PO DAILY #30 tabs 01/24/25 iron) tablet insulin glargine 100 unit/mL (3 15 unit (0.15 mL) subc ut DAILY #15 01/24/25 mL) subcutaneous pen (Lantus mL Solostar U-100 Insulin) losartan 25 mg tablet 25 mg PO DAILY #30 tabs 01/09 11/02 metformin 1,000 mg tablet 1,000 mg PO BID 90 days #60 tabs 01/24/25 olanzapine 5 mg tablet 5 mg PO BID 30 days #60 tabs 01/24/25 omeprazole 40 mg capsule,delayed 40 mg PO DAILY #30 ca ps 01/24/25 release tamsulosin 0.4 mg capsule 0.4 mg PO BEDTIME #30 caps 0 01/24/25 thiamine HCl (vitamin B1) 100 mg 100 mg PO BID #60 tab s 01/24/25 tablet hydroxyzine HCl 25 mg tablet 25 mg PO TID PRN anxiety #30 tabs 02/21/25 Allergies Allergy/AdvReac Type Severity Reaction Status Date / Time pollen extracts (POLLEN) Allergy Mild RUNNY NOSE Verified 02/28/25 15:29 cat dander (CATS) Allergy Unknown UNKNOWN Verified 02/28/25 15:29 dog dander (DOGS) Allergy Unknown UNKNOWN Verified 02/28/25 15:29 mold (MOLD) Allergy Unknown UNKNOWN Verified 02/28/25 15:29 Review of Systems 2 Review of Systems: CONST: Negative for fever, body aches and chills. HENT: Negative for neck pain/stiffness, headache, congestion, sore throat, swelling. EYES: Negative for discharge/pain or vision changes. RESP: Negative for cough/hemoptysis and shortness of breath. CV: Negative chest pain, difficulty breathing, palpitations. ABD: Negative pain, nausea, vomiting. : Negative increase frequency, dysuria, blood in urine or stool. MUSC: Negative for muscle aches, edema. SKIN: Negative rash, lesions/sores. NEURO: Negative headache, dizziness, weakness. PSYCH: POS SI with plan to jump off bridge, AH, VH, increased depression and anxiety Yes all other systems are reviewed and are negative PMF Past Medical History Attestation statement: The following information was validated with the patient. Source: old records reviewed and nursing notes reviewed Medical History (Updated 03/02/25 @ 17:48 by Devin Macario MD) MDD (major depressive disorder), recurrent, severe, with psychosis Suicidal ideation Situational crisis Suicidal ideation Psychosis Chest pain Allergic rhinitis Insomnia Palpitations Vitamin D deficiency Chronic kidney disease, stage III (moderate) GERD without esophagitis Restrictive lung disease Obesity (BMI 30-39.9) Benign essential hypertension Pure hypercholesterolemia Diabetes mellitus Pulmonary emboli Chondrosarcoma Hyperlipidemia Chronic restrictive lung disease COPD (chronic obstructive pulmonary disease) Asthma Surgical History History of esophagogastroduodenoscopy (EGD) H/O colonoscopy History of inguinal hernia repair Hx of exploratory thoracotomy H/O tooth extraction Family History Family History Father Hypertension Kidney failure, acute Mother Lung cancer Family/Other Diabetes Social History Social History Household Members: Other Household Members Other:: Brother Housing: House Do you presently have visiting nurse or other home services: No Unable to assess alcohol history related to: Unknown Alcohol intake: former Patient Tobacco Use Status: Never used Tobacco Smoked in Last 30 Days: No e-Cigarette/Vaping Use: Never Used Second Hand Smoke Exposure: No Currently Displaying Signs/Symptoms of Drug Intoxication Withdrawal: No Have you been hit, kicked, punched, or otherwise hurt by someone within the past year? If so, by whom?: No Do you feel safe in your current relationship?: No Current Relationship Is there a partner from a previous relationship who is making you feel unsafe now?: No Advance Directives: Yes Advance Directives on File: Yes Advance Directives Date on File: 10/25/15 Do you have thoughts of harming others: None Do you have a plan to hurt others: No Plan Recently lost weight without trying: No Eating poorly because of decreased appetite: No Nutrition Risks: No Nutritional Risk Poor oral hygiene: No service: No Current occupational status: unemployed Sexual orientation: Straight/Heterosexual Cognitive needs: No Hearing needs: No Vision needs: Yes (Glasses) Physical Exam 2 Vital Signs: Vital Signs: Last Vital Signs Temp 97.3 F 03/08/25 08:19 Pulse 73 03/08/25 08:19 Resp 20 03/07/25 19:55 BP 115/56 L 03/08/25 08:19 Pulse Ox 90 L 03/08/25 08:19 O2 Del Method Room Air 03/08/25 08:19 BMI result Body Mass Index 28.1 GENERAL APPEARANCE: ?AxOx4, no acute distress. HEENT: ?NC, AT. MMM. EOMI, clear conjunctiva, oropharynx clear. NECK: ?Supple without lymphadenopathy.? No stiffness or restricted ROM. HEART:? Normal rate and regular rhythm, normal S1/S2, no m/r/g. There is extensive scarring over the L chest/ under the L axilla with multiple areas of opening and weeping. LUNGS: Diminished breath sounds of B/L lung bases, No crackles or wheezes are heard. ABDOMEN: ?Soft, nontender, nondistended EXTREMITIES: ?Without cyanosis, clubbing or edema. NEUROLOGICAL: ?Grossly nonfocal. Alert and oriented, moving all 4 extremities. Observed to ambulate with normal gait. Skin: ?Warm and dry without any rash. Course Course Course Narrative: Time: 06:23 Date: 03/01/25 Provider: Milka Muro, DO Patient in physician observation for psychiatric evaluation.? No acute events reported overnight. No current complaints. VS stable.? Pending CARE team evaluation. Will continue to monitor. Reevaluation(s) Reevaluation #1: physician observation ended 03/01/25 1214am CHANO admitted Medications Administered Generic Name Dose Route Start Last Admin Trade Name Freq PRN Reason Stop Dose Admin Acetaminophen 650 mg 03/01/25 12:18 03/05/25 17:08 Acetaminophen 325 Mg Tablet PO 650 mg Q6H PRN Administration Headache/Pain, Scale 1-10 Al Hydroxide/Mg Hydroxide 30 ml 03/01/25 12:18 03/08/25 04:25 Magnesium Hydrox/Alum Hydrox 30 Ml Oral.Susp PO 30 ml Q6H PRN Administration Heartburn/Nausea Albuterol Sulfate 2 puff 02/28/25 19:19 03/08/25 08:34 Albuterol Sulfate 90 Mcg 8 Gm Inhaler INHALE 2 puff RQ6H WHILE AWAKE PRN Administration Wheezing Atorvastatin Calcium 40 mg 03/01/25 09:00 03/08/25 08:19 Atorvastatin Calcium 40 Mg Tablet PO 40 mg DAILY DANIEL Administration Bupropion HCl 150 mg 03/07/25 09:00 03/08/25 08:20 Bupropion Hcl Xl 150 Mg Tab.Er.24h PO 150 mg DAILY DANIEL Administration Cephalexin HCl 500 mg 02/28/25 21:00 03/08/25 08:19 Cephalexin 500 Mg Capsule PO 500 mg BID DANIEL Administration Clonidine HCl 0.1 mg 03/06/25 14:35 03/08/25 08:34 Clonidine Hcl 0.1 Mg Tablet PO 0.1 mg Q4H PRN Administration moderate anxiety Protocol Empagliflozin 10 mg 03/03/25 09:00 03/08/25 08:21 Empagliflozin 10 Mg Tablet PO 10 mg DAILY DANIEL Administration Escitalopram Oxalate 20 mg 03/01/25 09:00 03/08/25 08:19 Escitalopram Oxalate 20 Mg Tablet PO 20 mg DAILY DANIEL Administration Famotidine 10 mg 03/03/25 21:00 03/08/25 08:20 Famotidine 20 Mg Tablet PO 10 mg BID DANIEL Administration Ferrous Sulfate 324 mg 03/01/25 09:00 03/08/25 08:21 Ferrous Sulfate 324 Mg Tablet. PO 324 mg DAILY DANIEL Administration Hydroxyzine HCl 25 mg 02/28/25 19:03 03/07/25 16:33 Hydroxyzine Hcl 25 Mg Tablet PO 25 mg TID PRN Administration Anxiety Insulin Glargine 15 unit 03/01/25 09:00 03/08/25 08:18 Insulin Glargine,Hum.Rec.Anlog 100 Unit/Ml 10 Ml Vial SUBCUT 15 unit DAILY DANIEL Administration Insulin Human Lispro 0 unit 03/02/25 16:30 03/08/25 08:18 Insulin Lispro 100 Unit/Ml 3 Ml Vial SUBCUT 2 unit TIDAC DANIEL Administration Protocol Losartan Potassium 25 mg 03/03/25 09:00 03/08/25 08:19 Losartan Potassium 25 Mg Tablet PO 25 mg DAILY DANIEL Administration Protocol Metformin HCl 1,000 mg 02/28/25 21:00 03/08/25 08:19 Metformin Hcl 1,000 Mg Tablet PO 1,000 mg BID DANIEL Administration Olanzapine 5 mg 03/03/25 15:25 03/05/25 17:07 Olanzapine 5 Mg Tablet PO 5 mg BID PRN Administration Auditory Hallucinations Omeprazole 40 mg 03/01/25 06:30 03/03/25 08:41 Omeprazole 40 Mg Capsule.Dr PO 40 mg On Hold: 03/03/25 16:52 DAILY@0630 DANIEL Administration Risperidone 1 mg 03/04/25 09:00 03/08/25 08:19 Risperidone 1 Mg Tablet PO 1 mg DAILY DANIEL Administration Risperidone 2 mg 03/03/25 21:00 03/07/25 20:59 Risperidone 2 Mg Tablet PO 2 mg BEDTIME DANIEL Administration Tamsulosin HCl 0.4 mg 02/28/25 21:00 03/07/25 20:59 Tamsulosin Hcl 0.4 Mg Capsule PO 0.4 mg BEDTIME DANIEL Administration Thiamine HCl 100 mg 02/28/25 21:00 03/08/25 08:20 Thiamine Hcl 100 Mg Tablet PO 100 mg BID DANIEL Administration Vitamin D 50 mcg 03/01/25 09:00 03/08/25 08:20 Cholecalciferol (Vitamin D3) 25 Mcg Tablet PO 50 mcg DAILY DANIEL Administration Discontinued Medications Generic Name Dose Route Start Last Admin Trade Name Conner PRN Reason Stop Dose Admin Bacitracin 1 appl 03/01/25 09:45 03/03/25 08:48 Bacitracin Oint 0.9 Gm Packet TOPICAL 1 appl TID DANIEL Administration Protocol Doxycycline Monohydrate 100 mg 02/28/25 21:00 03/07/25 08:53 Doxycycline Monohydrate 100 Mg Capsule PO 03/07/25 09:00 100 mg BID DANIEL Administration Losartan Potassium 25 mg 03/01/25 09:00 03/02/25 08:38 Losartan Potassium 25 Mg Tablet PO 25 mg DAILY DANIEL Administration Protocol Olanzapine 5 mg 02/28/25 21:00 03/03/25 08:43 Olanzapine 5 Mg Tablet PO 5 mg BID DANIEL Administration Risperidone 1 mg 03/02/25 14:00 03/03/25 08:41 Risperidone 1 Mg Tablet PO 1 mg BID DANIEL Administration Medical Decision Making Medical Decision Making MDM Narrative: 54-year-old male with medical history of asthma, COPD, T2DM, HLD, HTN, GERD, CKD, depression, anxiety presents to the ED by EMS due to suicidal ideation. Patient states he was at [facility] having a therapy session discussing life stressors and started making comments of suicidal ideation of jumping off of a bridge. Patient states he has been experiencing increased stress as the residence he was living in was condemned forcing him to move in with his brother. Additionally, patient states he has had difficulty in finding a job. Patient states nothing is going my way, I just want to . Patient reports he is hearing 2 voices, one is telling him to jump off of a bridge, the other voice is telling him to overdose on his medication or to grab a knife to kill himself . Patient reports seeing shadows that take on human and animal shapes. Additionally, patient has area of opening over the L side of the chest that he has been picking at over the past 3 weeks. Patient states this area is itchy and irritated. Plan: labs, UA, UTOX, CARE team consult Patient with multiple open areas of the L chest of old scar, picking at this area and scratching with scant bleeding and weeping. Patient started on 7 day course of BID 500mg keflex and BID 100mg doxycyline for bacterial coverage. I ordered the medication as scheduled dose. Patient is IPLOC due to SI with plan, , VH. My colleague Dr. Larry Stern signed section 12 for safety and treatment. Differential Diagnosis Differential Diagnoses: The differential diagnosis associated with the presentation includes Psychosis Suicidal ideation with plan Increased depression Increased anxiety Cellulitis Admission/Observation Consideration of admission/observation: Escalation of care including admission/observation considered Lab Data [facility] Lab Attestation statement: I reviewed the patient's lab results. 02/28/25 16:11 03/07/25 07:43 Labs: Lab Results 02/28/25 02/28/25 Range/Units 15:42 16:11 WBC 6.6 (4.8-10.8) X10*3/uL RBC 4.53 L (4.60-5.80) X10*6/uL Hgb 13.1 L (14.0-18.0) g/dl Hct 40.1 L (42.0-52.0) % MCV 88.5 (80.0-98.0) fL MCH 28.9 (27.0-33.0) pg MCHC 32.7 (31.0-36.0) g/dl RDW 15.6 (11.0-16.0) % Plt Count 214 (160-400) X10*3/uL MPV 10.5 (9.4-12.4) fL Immature Gran % (Auto) 0.3 (0.0-0.4) % Neut % (Auto) 65.5 (45-73) % Lymph % (Auto) 23.5 (20-40) % [place] % (Auto) 7.6 (2-11) % Eos % (Auto) 2.6 (0-4) % Baso % (Auto) 0.5 (0-2) % Lymph # (Auto) 1.6 (1.2-4.9) X10*3/uL [place] # (Auto) 0.5 (0.1-1.2) X10*3/uL Eos # (Auto) 0.2 (0.0-0.4) X10*3/uL Baso # (Auto) 0.0 (0.0-0.2) X10*3/uL Abs Immat Gran (auto) 0.02 (0.00-0.03) X10*3/uL Absolute Neuts (auto) 4.3 (2.0-8.3) x10*3/uL Absolute Nucleated RBC 0.000 (0.0-0.012) X10*3/uL Nucleated RBC % (auto) 0.0 (0.0-0.2) /100WBC Sodium 145 (135-145) mmol/L Potassium 3.8 (3.3-5.1) mmol/L Chloride 107 (96-108) mmol/L Carbon Dioxide 31 H (22-29) mmol/L Anion Gap 11 L (12-20) BUN 12 (9-16) mg/dL Creatinine 1.29 (0.5-1.4) mg/dL Estim Creat Clear Calc 71.1 Estimated GFR 58 Random Glucose 124 H (60-115) mg/dL Calcium 9.4 (8.4-10.2) mg/dL Total Bilirubin 0.5 (0.0-1.0) mg/dL AST 21 (5-37) U/L ALT 17 (0-40) U/L Alkaline Phosphatase 101 (39-117) U/L Total Protein 7.2 (6.5-8.0) g/dL Albumin 4.2 (3.5-5.0) g/dL Hold Yellow Top See Note Urine Color Yellow Urine Appearance Clear Urine pH 8.5 (5.0-9.0) Ur Specific [place] 1.015 (1.005-1.025) Urine Protein Trace (Neg-Trace) mg/dL Urine Glucose (UA) Negative (Negative) mg/dL Urine Ketones Negative (Negative) mg/dL Urine Blood Trace H (Negative) Urine Nitrite Negative (Negative) Ur Leukocyte Esterase Negative (Negative) Urine RBC 3-5 H (0-2) /HPF Urine WBC 0-5 (0-5) /HPF Ur Squamous Epith Cells 0-2 (0-2) /HPF Urine Bacteria None Seen (None Seen) Hyaline Casts 0-2 (0-2) /LPF Urine Opiates Screen Not Detected (Not Detect) Ur Buprenorphine Scrn Not Detected (Not Detect) ng/mL Ur Oxycodone Screen Not Detected (Not Detect) ng/mL Urine Methadone Screen Not Detected (Not Detect) ng/mL Urine Fentanyl Screen Not Detected (Not Detect) Ur Barbiturates Screen Not Detected (Not Detect) Ur Phencyclidine Scrn Not Detected (Not Detect) Ur Amphetamines Screen Not Detected (Not Detect) U Benzodiazepines Scrn Not Detected (Not Detect) Urine Cocaine Screen Not Detected (Not Detect) U Marijuana (THC) Screen Not Detected (Not Detect) Ethyl Alcohol < 10 mg/dL Discharge Plan Discharge Clinical Impression: Depression Patient Disposition: Admitted As Inpatient Interventions: Admission Worksheet (ED) Last Done: 03/01/25 12:58 Discharge Date/Time: 03/01/25 14:04
[2025-02-28 16:19] LABS: MANUAL DIFF FLAG NO
[2025-02-28 16:25] LABS: Hematocrit 40.1 % (42.0-52.0); Hemoglobin 13.1 g/dl (14.0-18.0); Imm Gran Abs Auto 0.02 X10*3/uL (0.00-0.03); Imm Gran Pct Auto 0.3 % (0.0-0.4); Lymphocytes Absolute Auto 1.6 X10*3/uL (1.2-4.9); Mean Corpuscular HGB Conc 32.7 g/dl (31.0-36.0); Mean Corpuscular Hemoglobin 28.9 pg (27.0-33.0); Mean Corpuscular Volume 88.5 fL (80.0-98.0); NRBC Abs Auto 0.000 X10*3/uL (0.0-0.012); NRBC Pct Auto 0.0 /100WBC (0.0-0.2); Platelet Count 214 X10*3/uL (160-400); Red Blood Count 4.53 X10*6/uL (4.60-5.80); White Blood Count 6.6 X10*3/uL (4.8-10.8)
[2025-02-28 16:47] LABS: Alanine Aminotransferase 17 U/L (0-40); Albumin Level 4.2 g/dL (3.5-5.0); Alkaline Phosphatase 101 U/L (39-117); Anion Gap 11 (12-20); Aspartate Amino Transferase 21 U/L (5-37); Blood Urea Nitrogen 12 mg/dL (9-16); Calcium 9.4 mg/dL (8.4-10.2); Carbon Dioxide 31 mmol/L (22-29); Chloride 107 mmol/L (96-108); Creatinine Clr Calc Pharmacy 71.1; Estimated Glomerular Filt Rate 58; Potassium 3.8 mmol/L (3.3-5.1); Sodium 145 mmol/L (135-145); Total Protein 7.2 g/dL (6.5-8.0)
[2025-02-28] MEDS: Albuterol Sulfate 90 MCG 8 GM INHALER 2 PUFF INHALE (19:39)
--- NOTE | 2025-02-28 21:07 | ECG_ITS ---
Test Reason : MED CLEAR Blood Pressure : */* mmHG Vent. Rate : 63 BPM Atrial Rate : 63 BPM P-R Int : 136 ms QRS Dur : 112 ms QT Int : 456 ms P-R-T Axes : 36 6 54 degrees QTcB Int : 466 ms Normal sinus rhythm Minimal voltage criteria for LVH, may be normal variant ( R in aVL ) Borderline ECG When compared with ECG of 24-Jan-2025 21:29, No significant change was found Referred By: Trish Marinelli Electronically Signed By: HILTON DONATO MD
--- OUTSIDE RECORDS SUMMARY | 2025-02-28 21:08 | XMS_ITS | Encounter Summary ---
Author Organization [facility] Address [address] [place] [id number] Care Team Providers Care Alcohol And Drug Counselor Name Role Phone Unavailable Primary Care Provider Unavailabl e Encounter Details Date Type Department Care Team (Late st Contact Info) Description 12/23/2021 Scanned Document [facility] [address] [place] [id number] Gastroenterology, Scan Social History Tobacco Use Types [...]
--- OUTSIDE RECORDS SUMMARY | 2025-02-28 21:08 | XMS_ITS | Clinical Summary ---
Author Organization [facility] Address [address] [place] [address] Care Team Providers Care Finish Sander Name Role Phone Unavailable Primary Care Provider [...] 10:00 AM EDT Office Visit [facility] [address] [place] [address] Perez Romero DDS Dental abscess (Primary Dx); [...] Description 03/09/2025 10:00 AM EDT Office Visit [facility] [address] [place] [address] Perez Romero, DDS [address] [place], [place] [phone] Health Maintenance Due Date Last Done Comments [...]
--- OUTSIDE RECORDS SUMMARY | 2025-02-28 21:08 | XMS_ITS | Patient Health Record ---
Author Organization [facility] Address [address] [place] [id number] Care Team Providers Care Frame Fixer Name Role Phone Fox Ku MD Primary Care Provider Briana Tashi Erwin Unavailable [phone] Alisha Moore Unavailable Unavailable Allergies No Known Allergies Reason For Referral No Information Medications Medication SIG (Take, Route, Frequency, Duration) Notes Start Date End Date Status Ventolin HFA 108 (90 Base) MCG/ACT Inhalation; Duration: 17 Act celena Atenolol 25 MG Oral; Duration: 90 Active Tamsulosin HCl 0.4 MG Oral; Duration: 90 Active Dulcolax (colon prep) 5 MG Take 2 Dulcol ax 2 days before the colonoscopy, and take 2 Dulcolax at 3:00 p.m and 7:00p.m. the day before the colonoscopy Orally Two tablets 2 days before the colonoscopy, and two tablets twice a day for one day before the colonsocpy; Duration: 2 days 04/19/2023 Active Escitalopram Oxalate 20 MG Oral; Duration: 90 Active MiraLax (colon prep) 17 GM/SCOOP [...] at 5:00 p.m. the day before the procedure; Duration: 2 days 04/19/2023 Active Ferrous Sulfate 325 (65 Fe) MG Oral; Duration: 90 Active metFORMIN HCl 1000 MG Oral; Duration: 90 Active Albuterol Sulfate Ac tive Atorvastatin Calcium 40 MG 1 tablet Oral ly Once a day Active Omeprazole 40 MG 1 capsule 30 minutes before morning meal Orally Once a day Active Lantus 100 UNIT/ML as directed Subcutan eous 20 units a day Active Cholecalciferol 50 MCG (2000 UT) 1 capsule Orally Once a day; Duration: 30 day(s) Active Immunizations Vaccine Route Administration [...] Problem Status W/U Status Risk Notes Problem Colon cancer screening (217686032) Colon cancer screening (Z12.11) Active confirmed Problem History of adenomatous polyp of colon (517131457) History of adenomatous polyp of colon (Z86.010) Active confirmed Problem Diverticular disease of colon (126223974) Diverticulosis of large intestine without perforation or abscess without bleeding (K57.30) Active confirmed Problem Gastroesophageal reflux disease without esophagitis (794820606) Gastroesophageal reflux disease without esophagitis (K21.9) Active confirmed Problem Preprocedural examination (473170887342970) Preprocedural examination (Z01.818) Active confirmed Problem Iron deficiency anemia (54962729) Iron deficiency anemia, unspecified iron deficiency anemia type (D50.9) Active confirmed Plan Of Treatment Pending Test Test Name Order Date Pathology 07/13/2023 Future Test Test Name Order Date UPPER GI ENDOSCOPY 06/23/2017 COLONOSCOPY 06/23/2017 COLONOSCOPY 04/17/2023 Insurance Providers Payer Name Payer Address Payer Phone Subscriber Number Group Number Insured Name Patient Relationship to Insured Coverage Start Date Coverage End Date [facility] [address] [address] [place], [place] [phone] [id number] KIAN MAHMOOD Self - patient is the insured MEDICAID OF [facility] [address] [place] [address] [phone] [id number] KIAN MAHMOOD Self - patient is the insured Medical (General) History Medical History History ICD Code IDDM Hypertension Heart murmur-Dr. Collins Asthma/COPD- Dr. Correa Pulmonary embolus in 2015--on Coumadin-- sees Dr. Moore Lung mass--surgery in 2008 a s below, with XRT; biopsied in approx 2015 and benign--followed by Dr. Tino Dimas [place],CVA,renal disease GERD--upper endoscopy August of 2017 with [...]
--- OUTSIDE RECORDS SUMMARY | 2025-02-28 21:08 | XMS_ITS | Clinical Summary ---
Author Organization [facility] Address [address] [place] [address] Care Team Providers Care Human Resources Benefits Assistant Name Role Phone Unavailable Primary Care [...] COVID-19 Vaccine (1 - 2023- season) 2025 RSV Vaccine 50 years and old er and Patients (1 - 1-dose 75+ series) 2045
[2025-03-01] MEDS: Albuterol Sulfate 90 MCG 8 GM INHALER 2 PUFF INHALE ×2 (04:46→23:08)
[2025-03-01 06:15] VITALS: BP 148/81; PULSE 87; RESP 17; TEMP 36.8; O2SAT 94
[2025-03-01 06:19] VITALS: RESP 18
--- NOTE | 2025-03-01 08:03 | PC.NURSE ---
Assumed care report received. Pt is awake, he is eating breakfast, affect is flat and labile. He continues to endorse SI
[2025-03-01] MEDS: Insulin Glargine,Hum.rec.anlog 100 UNIT/ML 10 ML VIAL 15 UNIT SUBCUT (09:29)
[2025-03-01] MEDS: Ferrous Sulfate 324 MG TABLET.DR PO (09:29)
[2025-03-01 14:10] VITALS: BP 136/70; PULSE 72; TEMP 35.9; O2SAT 97; BMI 38.4
--- NOTE | 2025-03-01 19:00 | PC.ADMIT ---
Jasbir is a 54 yr old male, transferred from [facility] to at approx 14:10. He signed in on a conditional voluntary. Jasbir was at a therapy session at [facility] and verbalized a plan to jump off a bridge and end his life. He reported feeling suicidal with increased depression with recent life stressors. He has had to stay at his brother?s home due to his own place being condemned. He fears that he may become homeless due to sy=trained relationship with his brother. Jasbir?s medical history includes Asthma, COPD, Type 2 DM, HLD, HTN, GERD, CKD. On admission to Jasbir is alert, oriented & cooperative with the admission process. He has signed [facility] for PCP & psych providers. Jasbir endorses passive SI at tis time & has no plan. He also endorses CAH & VH. He contracts for safety on the unit. He is pleasant and engaged, maintains good eye contact & his mood is described as ?okay?. Skin check is remarkable for a left chest wound which has been longstanding with poor healing due to picking. Wound is superficial, bacitracin is applied & DSD is intact over site. His feet are dry, with thickened toenails. A few scattered superficial pick wounds noted on his body. No drainage or s/s infection. Jasbir was reoriented to the unit & placed on 15 min safety checks.
[2025-03-01 20:00] VITALS: BP 117/62; PULSE 84; RESP 18; TEMP 37.3; O2SAT 93
[2025-03-02] MEDS: Insulin Glargine,Hum.rec.anlog 100 UNIT/ML 10 ML VIAL 15 UNIT SUBCUT (08:37)
[2025-03-02 08:38] VITALS: BP 123/69
[2025-03-02] MEDS: Ferrous Sulfate 324 MG TABLET.DR PO (08:38)
--- NOTE | 2025-03-02 08:47 | HO.PM.IMCN ---
History of Present Illness Data of Consult Service Date: 03/02/25 Primary Care Provider: Bon Arvizu MD HPI Reason for consult: Medical consult 54-year-old male with a past medical history of asthma, COPD, type 2 diabetes, hyperlipidemia, hypertension, GERD, chronic kidney disease, BPH, depression and anxiety reported presented to the emergency department via EMS due to suicidal ideation. In the ED his workup revealed no leukocytosis, mild anemia. No evidence of renal or liver impairment, no electrolyte imbalances. Patient's urine was without infection, his tox screen was negative. He was found to have an open wound on his left chest which is chronic. Wound was open and draining serosanguineous drainage. Patient reportedly picked up the wound. He was started on dual antibiotic therapy in the ER. On exam he has no medical concerns. Review of Systems Review of Systems: Denies any shortness of breath, chest pain, headaches, dysuria, abdominal pain or discomfort, nausea, vomiting or diarrhea. Denies fever or chills. [facility] Medical History Suicidal ideation Situational crisis Suicidal ideation Psychosis Chest pain Recurrent major depression Allergic rhinitis Insomnia Palpitations Vitamin D deficiency Chronic kidney disease, stage III (moderate) GERD without esophagitis Restrictive lung disease Obesity (BMI 30-39.9) Benign essential hypertension Pure hypercholesterolemia Diabetes mellitus Pulmonary emboli Chondrosarcoma Hyperlipidemia Chronic restrictive lung disease COPD (chronic obstructive pulmonary disease) Asthma Family History Father Hypertension Kidney failure, acute Mother Lung cancer Family/Other Diabetes Surgical History History of esophagogastroduodenoscopy (EGD) H/O colonoscopy History of inguinal hernia repair Hx of exploratory thoracotomy H/O tooth extraction Social History Household Members: Other Household Members Other:: Brother Housing: House Do you presently have visiting nurse or other home services: No Unable to assess alcohol history related to: Unknown Alcohol intake: former Patient Tobacco Use Status: Never used Tobacco Smoked in Last 30 Days: No e-Cigarette/Vaping Use: Never Used Second Hand Smoke Exposure: No Currently Displaying Signs/Symptoms of Drug Intoxication Withdrawal: No Have you been hit, kicked, punched, or otherwise hurt by someone within the past year? If so, by whom?: No Do you feel safe in your current relationship?: No Current Relationship Is there a partner from a previous relationship who is making you feel unsafe now?: No Advance Directives: Yes Advance Directives on File: Yes Advance Directives Date on File: 10/25/15 Do you have thoughts of harming others: None Do you have a plan to hurt others: No Plan Recently lost weight without trying: No Eating poorly because of decreased appetite: No Nutrition Risks: No Nutritional Risk Poor oral hygiene: No service: No Current occupational status: unemployed Sexual orientation: Straight/Heterosexual Cognitive needs: No Hearing needs: No Vision needs: Yes (Glasses) Meds Allergies Allergy/AdvReac Type Severity Reaction Status Date / Time pollen extracts (POLLEN) Allergy Mild RUNNY NOSE Verified 02/28/25 15:29 cat dander (CATS) Allergy Unknown UNKNOWN Verified 02/28/25 15:29 dog dander (DOGS) Allergy Unknown UNKNOWN Verified 02/28/25 15:29 mold (MOLD) Allergy Unknown UNKNOWN Verified 02/28/25 15:29 Active Medications: Current Medications Acetaminophen (Acetaminophen 325 Mg Tablet) 650 mg PO Q6H PRN PRN Reason: Headache/Pain, Scale 1-10 Al Hydroxide/Mg Hydroxide (Magnesium Hydrox/Alum Hydrox 30 Ml Oral.Susp) 30 ml PO Q6H PRN PRN Reason: Heartburn/Nausea Albuterol Sulfate (Albuterol Sulfate 90 Mcg 8 Gm Inhaler) 2 puff INHALE RQ6H WHILE AWAKE PRN PRN Reason: Wheezing Last Admin: 03/01/25 23:08 Dose: 2 puff Atorvastatin Calcium (Atorvastatin Calcium 40 Mg Tablet) 40 mg PO DAILY DANIEL Last Admin: 03/02/25 08:39 Dose: 40 mg Bacitracin (Bacitracin Oint 0.9 Gm Packet) 1 appl TOPICAL TID DANIEL; Protocol Last Admin: 03/02/25 08:37 Dose: 1 appl Cephalexin HCl (Cephalexin 500 Mg Capsule) 500 mg PO BID DANIEL Last Admin: 03/02/25 08:39 Dose: 500 mg Doxycycline Monohydrate (Doxycycline Monohydrate 100 Mg Capsule) 100 mg PO BID DANIEL Stop: 03/07/25 09:00 Last Admin: 03/02/25 08:38 Dose: 100 mg Escitalopram Oxalate (Escitalopram Oxalate 20 Mg Tablet) 20 mg PO DAILY [facility] Last Admin: 03/02/25 08:38 Dose: 20 mg Ferrous Sulfate (Ferrous Sulfate 324 Mg Tablet.) 324 mg PO DAILY [facility] Last Admin: 03/02/25 08:38 Dose: 324 mg Hydroxyzine HCl (Hydroxyzine Hcl 25 Mg Tablet) 25 mg PO TID PRN PRN Reason: Anxiety Hydroxyzine HCl (Hydroxyzine Hcl 25 Mg Tablet) 25 mg PO Q6H PRN PRN Reason: mild anxiety Insulin Glargine (Insulin Glargine,Hum.Rec.Anlog 100 Unit/Ml 10 Ml Vial) 15 unit SUBCUT DAILY [facility] Last Admin: 03/02/25 08:37 Dose: 15 unit Losartan Potassium (Losartan Potassium 25 Mg Tablet) 25 mg PO DAILY [facility]; Protocol Last Admin: 03/02/25 08:38 Dose: 25 mg Magnesium Hydroxide (Milk Of Magnesia 30 Ml Oral.Susp) 30 ml PO DAILY PRN PRN Reason: Constipation Metformin HCl (Metformin Hcl 1,000 Mg Tablet) 1,000 mg PO BID [facility] Last Admin: 03/02/25 08:38 Dose: 1,000 mg Nicotine Polacrilex (Nicotine Polacrilex 2 Mg Gum) 4 mg BUCCAL Q2H PRN PRN Reason: Nicotine Cravings Olanzapine (Olanzapine 5 Mg Tablet) 5 mg PO BID [facility] Last Admin: 03/02/25 08:38 Dose: 5 mg Omeprazole (Omeprazole 40 Mg Capsule.) 40 mg PO DAILY@0630 [facility] Last Admin: 03/02/25 06:25 Dose: 40 mg Ondansetron HCl (Ondansetron Odt 4 Mg Tab.Rapdis) 4 mg TRANSLINGU Q8H PRN PRN Reason: Nausea and Vomiting Tamsulosin HCl (Tamsulosin Hcl 0.4 Mg Capsule) 0.4 mg PO BEDTIME [facility] Last Admin: 03/01/25 20:59 Dose: 0.4 mg Thiamine HCl (Thiamine Hcl 100 Mg Tablet) 100 mg PO BID [facility] Last Admin: 03/02/25 08:38 Dose: 100 mg Trazodone HCl (Trazodone Hcl 50 Mg Tablet) 50 mg PO BEDTIME MRX1 PRN PRN Reason: Insomnia Vitamin D (Cholecalciferol (Vitamin D3) 25 Mcg Tablet) 50 mcg PO DAILY DANIEL Last Admin: 03/02/25 08:37 Dose: 50 mcg Physical Exam Vital Signs and Narrative: Vital Signs: Last Vital Signs Temp 99.1 F 03/01/25 20:00 Pulse 84 03/01/25 20:00 Resp 18 03/01/25 20:00 BP 123/69 03/02/25 08:38 Pulse Ox 93 03/01/25 20:00 O2 Del Method Room Air 03/01/25 20:00 BMI result Body Mass Index 38.4 Alert and oriented X3, clam and cooperative. Answers questions. Neuro: CN II-X11 intact, no deficits, visual acuity intact EYES: PERRLA, EOM intact ENT: Hearing intact, MMM Cardiac: S1 S2 RRR, No ectopy Pulmonary: lungs clear to auscultation, No increased WOB. Abdominal: BS active in all 4 quadrants, no guarding or tenderness MSK: Strength 5/5 upper and lower extremities : Deferred Extremities: No edema in lower extremities Psych: Mood stable, Quiet and cooperative. Skin: Warm and dry, Open wound to left chest with yellow drainage. Results Labs 02/28/25 16:11 02/28/25 16:11 Assessment and Plan (1) Diabetes mellitus: Qualifiers: Diabetes mellitus type: type 2 Diabetes mellitus nursing home insulin use: without exterminator helper use Diabetes mellitus complication status: with hyperglycemia Qualified Code(s): E11.65 - Type 2 diabetes mellitus with hyperglycemia Status: Acute Plan 54-year-old male with past medical history listed below admitted to inpatient psych from his counselor's office reporting suicidal ideation and auditory hallucinations. 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 Nonhealing wound from history of exploratory thoracotomy Continue doxycycline and cephalexin Wound care consult Type 2 diabetes Continue Lantus and sliding scale coverage Continue oral metformin Recent A1c 8.5 Start Jardiance 10 mg daily Consider GLP 1 agonist for weight DM control as an outpatient-follow up with PCP Hypertension/hyperlipidemia Continue Lipitor and atorvastatin, losartan 25 mgs daily Blood pressure stable, continue to monitor and update provider with concerns with blood pressure GERD Continue omeprazole Chronic kidney disease 3a Baseline creatinine 1.3- 1.[address] Bonner BPH Continues on Flomax Iron deficiency anemia H&H stable at 40.1 and 13.1-Stable Continue iron daily Thank you for allowing me to participate in the care of this patient. Will follow with you, please notify medical provider with any changes in condition or concerns.
[2025-03-02 09:43] LABS: Cholesterol 167 mg/dL (<200); HDL Cholesterol 32 mg/dL (>40); Magnesium 1.8 mg/dL (1.6-2.6); Triglycerides 311 mg/dL (<150)
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
[2025-03-02 10:02] LABS: Free T4 (Free Thyroxine) 0.81 ng/dL (0.71-1.85); Thyroid Stimulating Hormone 1.64 uIU/mL (0.32-4.0)
[2025-03-02 10:13] LABS: Folate 6.2 ng/mL (> or = 4.0); Vitamin B12 < 148 pg/mL (200-900)
[2025-03-02 17:18] LABS: Glucose, Whole Blood 181 mg/dL (60-115)
[2025-03-02 20:00] VITALS: BP 141/65; PULSE 89; RESP 18; TEMP 36.2; O2SAT 94
[2025-03-02 21:38] LABS: Glucose, Whole Blood 206 mg/dL (60-115)
[2025-03-03 08:00] LABS: Glucose, Whole Blood 160 mg/dL (60-115)
[2025-03-03] MEDS: Insulin Glargine,Hum.rec.anlog 100 UNIT/ML 10 ML VIAL 15 UNIT SUBCUT (08:39)
[2025-03-03] MEDS: Ferrous Sulfate 324 MG TABLET.DR PO (08:43)
[2025-03-03 08:45] VITALS: BP 145/77; PULSE 93; RESP 20; TEMP 36.7; O2SAT 94
--- NOTE | 2025-03-03 10:00 | HO.PSYCHPN ---
Subjective Subjective Date of Service: 03/03/25 Reason For Visit: Depression, si Interim History: met with patient; discussed with team Patient remains depressed. Also remains with AH but says it is a little better since Risperdal started. Agrees to titrate Risperdal to use Zyprexa as a p.r.n. Discussed history in much more detail at patient reports he has had AH and VH since he was young but never told anyone because he did not want people to think he was crazy. Says the AH is mostly just in the background but becomes more intense when he is depressed or upset; currently it will say the word bridge or knife which he interprets says voices wanting him to harm himself. Regarding VH patient will sometimes see the outline or shadow of a person that he finds distracting and can happen at any time. Mental Status Exam Mental Status Exam Narrative: Pt is alert and oriented; behavior is cooperative, calm, quiet patient is not in distress; dressed in hospital attire unkempt; mood is described as depressed and affect congruent, downcast; eye contact appropriate; Speech is a little soft and slow; psychomotor retardation present; thought process is organized and goal directed; Thought content is on psychosocial stressors; hopelessness; otherwise pertinent to relevant topics and without any delusional content, paranoid ideations or grandiosity; positive for SI; no HI. Reports AH. Patients insight and judgment impaired Diagnostics Vital Signs (24Hr): Vital Signs - 24 hr 03/02/25 20:00 03/03/25 08:45 Temperature 97.2 F 98.1 F Pulse Rate 89 93 Respiratory Rate 18 20 Blood Pressure 141/65 H 145/77 H Pulse Oximetry 94 91 L Oxygen Delivery Method Room Air Room Air BMI result Body Mass Index 38.4 Labs 02/28/25 16:11 02/28/25 16:11 Labs: Laboratory Results - last 48 hr 03/02/25 03/02/25 03/02/25 09:05 17:15 21:30 POC Glucose 181 H 206 H Estimat Average Glucose 197 Hemoglobin A1c % 8.5 H Magnesium 1.8 Triglycerides 311 H Cholesterol 167 LDL Cholesterol, Calc 73 HDL Cholesterol 32 L Vitamin B12 < 148 L Folate 6.2 TSH 1.64 Free T4 0.81 03/03/25 07:57 POC Glucose 160 H Estimat Average Glucose Hemoglobin A1c % Magnesium Triglycerides Cholesterol LDL Cholesterol, Calc HDL Cholesterol Vitamin B12 Folate TSH Free T4 Medications Medications Current Medications Acetaminophen (Acetaminophen 325 Mg Tablet) 650 mg PO Q6H PRN PRN Reason: Headache/Pain, Scale 1-10 Al Hydroxide/Mg Hydroxide (Magnesium Hydrox/Alum Hydrox 30 Ml Oral.Susp) 30 ml PO Q6H PRN PRN Reason: Heartburn/Nausea Albuterol Sulfate (Albuterol Sulfate 90 Mcg 8 Gm Inhaler) 2 puff INHALE RQ6H WHILE AWAKE PRN PRN Reason: Wheezing Last Admin: 03/01/25 23:08 Dose: 2 puff Atorvastatin Calcium (Atorvastatin Calcium 40 Mg Tablet) 40 mg PO DAILY [facility] Last Admin: 03/03/25 08:44 Dose: 40 mg Bacitracin (Bacitracin Oint 0.9 Gm Packet) 1 appl TOPICAL TID [facility]; Protocol Last Admin: 03/03/25 08:48 Dose: 1 appl Cephalexin HCl (Cephalexin 500 Mg Capsule) 500 mg PO BID [facility] Last Admin: 03/03/25 08:41 Dose: 500 mg Doxycycline Monohydrate (Doxycycline Monohydrate 100 Mg Capsule) 100 mg PO BID [facility] Stop: 03/07/25 09:00 Last Admin: 03/03/25 08:44 Dose: 100 mg Empagliflozin (Empagliflozin 10 Mg Tablet) 10 mg PO DAILY [facility] Last Admin: 03/03/25 08:44 Dose: 10 mg Escitalopram Oxalate (Escitalopram Oxalate 20 Mg Tablet) 20 mg PO DAILY [facility] Last Admin: 03/03/25 08:44 Dose: 20 mg Ferrous Sulfate (Ferrous Sulfate 324 Mg Tablet.Dr) 324 mg PO DAILY [facility] Last Admin: 03/03/25 08:43 Dose: 324 mg Hydroxyzine HCl (Hydroxyzine Hcl 25 Mg Tablet) 25 mg PO TID PRN PRN Reason: Anxiety Hydroxyzine HCl (Hydroxyzine Hcl 25 Mg Tablet) 25 mg PO Q6H PRN PRN Reason: mild anxiety Insulin Glargine (Insulin Glargine,Hum.Rec.Anlog 100 Unit/Ml 10 Ml Vial) 15 unit SUBCUT DAILY [facility] Last Admin: 03/03/25 08:39 Dose: 15 unit Insulin Human Lispro (Insulin Lispro 100 Unit/Ml 3 Ml Vial) 0 unit SUBCUT TIDAC [facility]; Protocol Last Admin: 03/03/25 08:40 Dose: 2 unit Losartan Potassium (Losartan Potassium 25 Mg Tablet) 25 mg PO DAILY [facility]; Protocol Last Admin: 03/03/25 08:47 Dose: 25 mg Magnesium Hydroxide (Milk Of Magnesia 30 Ml Oral.Susp) 30 ml PO DAILY PRN PRN Reason: Constipation Metformin HCl (Metformin Hcl 1,000 Mg Tablet) 1,000 mg PO BID [facility] Last Admin: 03/03/25 08:43 Dose: 1,000 mg Nicotine Polacrilex (Nicotine Polacrilex 2 Mg Gum) 4 mg BUCCAL Q2H PRN PRN Reason: Nicotine Cravings Olanzapine (Olanzapine 5 Mg Tablet) 5 mg PO BID [facility] Last Admin: 03/03/25 08:43 Dose: 5 mg Omeprazole (Omeprazole 40 Mg Capsule.Dr) 40 mg PO DAILY@0630 [facility] Last Admin: 03/03/25 08:41 Dose: 40 mg Ondansetron HCl (Ondansetron Odt 4 Mg Tab.Rapdis) 4 mg TRANSLINGU Q8H PRN PRN Reason: Nausea and Vomiting Risperidone (Risperidone 1 Mg Tablet) 1 mg PO BID [facility] Last Admin: 03/03/25 08:41 Dose: 1 mg Tamsulosin HCl (Tamsulosin Hcl 0.4 Mg Capsule) 0.4 mg PO BEDTIME [facility] Last Admin: 03/02/25 21:29 Dose: 0.4 mg Thiamine HCl (Thiamine Hcl 100 Mg Tablet) 100 mg PO BID [facility] Last Admin: 03/03/25 08:43 Dose: 100 mg Trazodone HCl (Trazodone Hcl 50 Mg Tablet) 50 mg PO BEDTIME MRX1 PRN PRN Reason: Insomnia Vitamin D (Cholecalciferol (Vitamin D3) 25 Mcg Tablet) 50 mcg PO DAILY [facility] Last Admin: 03/03/25 08:42 Dose: 50 mcg Allergies Allergies Allergy/AdvReac Type Severity Reaction Status Date / Time pollen extracts (POLLEN) Allergy Mild RUNNY NOSE Verified 02/28/25 15:29 cat dander (CATS) Allergy Unknown UNKNOWN Verified 02/28/25 15:29 dog dander (DOGS) Allergy Unknown UNKNOWN Verified 02/28/25 15:29 mold (MOLD) Allergy Unknown UNKNOWN Verified 02/28/25 15:29 Assessment & Plan Assessment & Plan (1) MDD (major depressive disorder), recurrent, severe, with psychosis: Status: Acute Code(s): F33.3 - Major depressive disorder, recurrent, severe with psychotic symptoms (2) Hyperlipidemia: Qualifiers: Hyperlipidemia type: unspecified Qualified Code(s): E78.5 - Hyperlipidemia, unspecified Status: Acute Code(s): E78.5 - Hyperlipidemia, unspecified (3) Diabetes mellitus: Qualifiers: Diabetes mellitus complication status: with hyperglycemia Diabetes mellitus terminal clerk insulin use: without assisted use Diabetes mellitus type: type 2 Qualified Code(s): E11.65 - Type 2 diabetes mellitus with hyperglycemia Status: Acute Code(s): E11.9 - Type 2 diabetes mellitus without complications (4) Vitamin D deficiency: Status: Acute Code(s): E55.9 - Vitamin D deficiency, unspecified (5) Chronic kidney disease, stage III (moderate): Qualifiers: Chronic kidney disease stage 3 subtype: stage 3a (GFR 45-59) Qualified Code(s): N18.31 - Chronic kidney disease, stage 3a Status: Acute Code(s): N18.30 - Chronic kidney disease, stage 3 unspecified (6) COPD (chronic obstructive pulmonary disease): Qualifiers: COPD type: unspecified COPD Qualified Code(s): J44.9 - Chronic obstructive pulmonary disease, unspecified Status: Acute Code(s): J44.9 - Chronic obstructive pulmonary disease, unspecified (7) Asthma: Qualifiers: Asthma complication type: unspecified Asthma persistence: unspecified Asthma severity: unspecified severity Qualified Code(s): J45.909 - Unspecified asthma, uncomplicated Status: Acute Code(s): J45.909 - Unspecified asthma, uncomplicated Plan HPI: Patient is a 54-year-old male with history of MDD with psychosis (rule out schizoaffective disorder depressed type), HTN, CKD, Asthma, COPD, HLD, DM presents for worsening depression in the face of psychosocial stressors. Patient reports that over the past month, since his last admission this past January, his depression has worsened since it has been stress with the house. Although he and his brother both own the house, his brother has been nagging him to move out and find another place to live. Patient reports increased depression and hopelessness, saying he feels nothing goes his way, I can not handle it anymore and this past week, after an argument with his brother, patient said he felt like no longer being alive. Patient reports he ran out of Lexapro about a month ago since it was not refilled. Patient endorses auditory hallucinations. He only takes zyprexa 5mg once a day (not BID) and says it helps make voices quitier but the remain and it bugs him; discussed options and reviewed risks/side effects of antipsychotics and patient agrees to try risperidone. Patient denies any history of manic type episodes or behaviors; denies any alcohol or drug use. Formulation/clinical reasoning: Patient either has MDD with psychotic features or schizoaffective disorder; will try to further rule out. Patient has presented to the hospital several times this past year for depression. He says that for the past year he uses plastic utensils in order to be safe. He agrees to trying a different antipsychotic for auditory hallucinations and risperidone will be started. Will also consider Wellbutrin to help with depression. Hospital course: 03/03 Patient remains depressed. Also remains with AH but says it is a little better since Risperdal started. Agrees to titrate Risperdal to use Zyprexa as a p.r.n. Discussed history in much more detail at patient reports he has had AH and VH since he was young but never told anyone because he did not want people to think he was crazy. Says the AH is mostly just in the background but becomes more intense when he is depressed or upset; currently it will say the word bridge or knife which he interprets says voices wanting him to harm himself. Regarding VH patient will sometimes see the outline or shadow of a person that he finds distracting and can happen at any time. -patient has a hard time swallowing pills, particularly capsules which he opens up at home to take; not able to do that on inpatient unit, so he is looking for alternatives -patient is on omeprazole and has a folder and notcher; contract technical writer considered switching to famotidine (which literature suggests is generally preferred in CKD since it has less risk of accumulation and nephrotoxicity) since on the unit he is not able to take his omeprazole (as he is not allowed to poor out the capsule). Hearing Aid Dispenser will switch to famotidine just for this admission and then patient can resume omeprazole on discharge and continue working with outpatient provider Plan: Q 15 minutes CV Risperdal 1 mg daily Risperdal 2 mg q.h.s. Continue home medication Patient educated on: diagnosis, medication risk/benefits and medical condition Informed Consent: understands Reason for continued inpatient stay Substantial Risk for: rapid decompensation Time Spent With Patient Time: Total time managing care of this patient today ____ minutes.
[2025-03-03] MEDS: Albuterol Sulfate 90 MCG 8 GM INHALER 2 PUFF INHALE ×3 (10:41→21:51)
--- NOTE | 2025-03-03 11:58 | HO.WOUND ---
Wound Consult: Initial 54 yr old male admitted to [facility] on 03/01/25- See progress notes and H&P for detailed history. Wound consult placed for left chest wound. Patient agreeable to assessment and photo documentation. Left chest with chronic wound and scarring from previous injury, patient reports falling on a board. Area of irregular scar tissue with scattered areas of open superficial wounding. patient reports at one time this was fully healed but he does tend to pick at it. Left chest Etiology: previous injury, superifical wounding due to picking over scar tissue Measurements: 7cm x 7cm x 0.1cm Wound Bed: moist pink Drainage / Odor: small amount of serosanguineous, no odor Edges: ? open Frank wound: ? No Induration, Fluctuance or Warmth noted- significant scar tissue frank wound Pain: no pain Goals of Treatment: ? moist wound healing, drainage absorption, and antimicrobial effects with durafiber ag and foam Recommendations: Left chest: cleanse with normal saline, pat dry, apply skin prep frank wound, apply durafiber ag to wound bed (OK to have some overlap onto intact skin), cover with bordered foam, change every other day and PRN Re-consult wound care Nurse for wound deterioration or wound changes.
[2025-03-03 11:59] LABS: Glucose, Whole Blood 264 mg/dL (60-115)
[2025-03-03 16:43] LABS: Glucose, Whole Blood 185 mg/dL (60-115)
[2025-03-03 20:00] VITALS: BP 115/61; PULSE 89; RESP 20; TEMP 36.3; O2SAT 93
[2025-03-03 21:25] LABS: Glucose, Whole Blood 175 mg/dL (60-115)
[2025-03-04 08:00] VITALS: BP 125/59; PULSE 87; RESP 16; TEMP 36.7; O2SAT 95
[2025-03-04 08:22] LABS: Glucose, Whole Blood 157 mg/dL (60-115)
[2025-03-04] MEDS: Albuterol Sulfate 90 MCG 8 GM INHALER 2 PUFF INHALE ×2 (08:39→21:18)
[2025-03-04] MEDS: Ferrous Sulfate 324 MG TABLET.DR PO (08:40)
[2025-03-04] MEDS: Insulin Glargine,Hum.rec.anlog 100 UNIT/ML 10 ML VIAL 15 UNIT SUBCUT (08:41)
[2025-03-04 12:01] LABS: Glucose, Whole Blood 184 mg/dL (60-115)
--- NOTE | 2025-03-04 12:47 | P.PNPSI_ITS ---
Subjective Subjective Date of Service: 03/04/25 Reason For Visit: Depression, si Interim History: Active on unit. keeping to self. patient reports feeling anxious and depressed today; He reports feeling a little suicidal and having auditory hallucinations telling him to jump off a bridge . denies HI/VH. He reports sleeping well last night. Continue tx plan. Medication Compliance: Yes Side effects from medications: No Mental Status Exam Mental Status Exam Patient Appearance: Appropriate Patient Orientation: Person, Place, Time and Situation Level of Consciousness: Awake and Alert Patient Behavior: Appropriate, Cooperative and Good Eye Contact Mood Description: Depressed and Anxious Affect Description: Depressed Ability to Follow Directions: Good Speech Pattern: Clear Memory Description: Intact Hallucinations: Auditory Delusions: Not Present Thought Process: Intact Thought Content: positive for Intact Diagnostics Vital Signs (24Hr): Vital Signs - 24 hr 03/03/25 20:00 03/04/25 08:00 Temperature 97.3 F 98.1 F Pulse Rate 89 87 Respiratory Rate 20 16 Blood Pressure 115/61 125/59 L Pulse Oximetry 93 95 Oxygen Delivery Method Room Air BMI result Body Mass Index 38.4 Labs 02/28/25 16:11 02/28/25 16:11 Labs: Laboratory Results - last 48 hr 03/02/25 03/02/25 03/03/25 17:15 21:30 07:57 POC Glucose 181 H 206 H 160 H 03/03/25 03/03/25 03/03/25 11:55 16:37 21:21 POC Glucose 264 H 185 H 175 H 03/04/25 03/04/25 08:15 11:58 POC Glucose 157 H 184 H Medications Medications Current Medications Acetaminophen (Acetaminophen 325 Mg Tablet) 650 mg PO Q6H PRN PRN Reason: Headache/Pain, Scale 1-10 Al Hydroxide/Mg Hydroxide (Magnesium Hydrox/Alum Hydrox 30 Ml Oral.Susp) 30 ml PO Q6H PRN PRN Reason: Heartburn/Nausea Albuterol Sulfate (Albuterol Sulfate 90 Mcg 8 Gm Inhaler) 2 puff INHALE RQ6H WHILE AWAKE PRN PRN Reason: Wheezing Last Admin: 03/04/25 08:39 Dose: 2 puff Atorvastatin Calcium (Atorvastatin Calcium 40 Mg Tablet) 40 mg PO DAILY [facility] Last Admin: 03/04/25 08:40 Dose: 40 mg Cephalexin HCl (Cephalexin 500 Mg Capsule) 500 mg PO BID [facility] Last Admin: 03/04/25 08:40 Dose: 500 mg Doxycycline Monohydrate (Doxycycline Monohydrate 100 Mg Capsule) 100 mg PO BID [facility] Stop: 03/07/25 09:00 Last Admin: 03/04/25 08:41 Dose: 100 mg Empagliflozin (Empagliflozin 10 Mg Tablet) 10 mg PO DAILY [facility] Last Admin: 03/04/25 08:41 Dose: 10 mg Escitalopram Oxalate (Escitalopram Oxalate 20 Mg Tablet) 20 mg PO DAILY [facility] Last Admin: 03/04/25 08:40 Dose: 20 mg Famotidine (Famotidine 20 Mg Tablet) 10 mg PO BID [facility] Last Admin: 03/04/25 08:40 Dose: 10 mg Ferrous Sulfate (Ferrous Sulfate 324 Mg Tablet.) 324 mg PO DAILY [facility] Last Admin: 03/04/25 08:40 Dose: 324 mg Hydroxyzine HCl (Hydroxyzine Hcl 25 Mg Tablet) 25 mg PO TID PRN PRN Reason: Anxiety Hydroxyzine HCl (Hydroxyzine Hcl 25 Mg Tablet) 25 mg PO Q6H PRN PRN Reason: mild anxiety Insulin Glargine (Insulin Glargine,Hum.Rec.Anlog 100 Unit/Ml 10 Ml Vial) 15 unit SUBCUT DAILY [facility] Last Admin: 03/04/25 08:41 Dose: 15 unit Insulin Human Lispro (Insulin Lispro 100 Unit/Ml 3 Ml Vial) 0 unit SUBCUT TIDAC [facility]; Protocol Last Admin: 03/04/25 12:23 Dose: 2 unit Losartan Potassium (Losartan Potassium 25 Mg Tablet) 25 mg PO DAILY [facility]; Protocol Last Admin: 03/04/25 08:41 Dose: 25 mg Magnesium Hydroxide (Milk Of Magnesia 30 Ml Oral.Susp) 30 ml PO DAILY PRN PRN Reason: Constipation Metformin HCl (Metformin Hcl 1,000 Mg Tablet) 1,000 mg PO BID [facility] Last Admin: 03/04/25 08:40 Dose: 1,000 mg Nicotine Polacrilex (Nicotine Polacrilex 2 Mg Gum) 4 mg BUCCAL Q2H PRN PRN Reason: Nicotine Cravings Olanzapine (Olanzapine 5 Mg Tablet) 5 mg PO BID PRN PRN Reason: Auditory Hallucinations Omeprazole (Omeprazole 40 Mg Capsule.) 40 mg PO DAILY@0630 [facility] On Hold: 03/03/25 16:52 Last Admin: 03/03/25 08:41 Dose: 40 mg Ondansetron HCl (Ondansetron Odt 4 Mg Tab.Rapdis) 4 mg TRANSLINGU Q8H PRN PRN Reason: Nausea and Vomiting Risperidone (Risperidone 1 Mg Tablet) 1 mg PO DAILY [facility] Last Admin: 03/04/25 08:41 Dose: 1 mg Risperidone (Risperidone 2 Mg Tablet) 2 mg PO BEDTIME [facility] Last Admin: 03/03/25 21:09 Dose: 2 mg Tamsulosin HCl (Tamsulosin Hcl 0.4 Mg Capsule) 0.4 mg PO BEDTIME [facility] Last Admin: 03/03/25 21:24 Dose: Not Given Thiamine HCl (Thiamine Hcl 100 Mg Tablet) 100 mg PO BID [facility] Last Admin: 03/04/25 08:40 Dose: 100 mg Trazodone HCl (Trazodone Hcl 50 Mg Tablet) 50 mg PO BEDTIME MRX1 PRN PRN Reason: Insomnia Vitamin D (Cholecalciferol (Vitamin D3) 25 Mcg Tablet) 50 mcg PO DAILY [facility] Last Admin: 03/04/25 08:40 Dose: 50 mcg Allergies Allergies Allergy/AdvReac Type Severity Reaction Status Date / Time pollen extracts (POLLEN) Allergy Mild RUNNY NOSE Verified 02/28/25 15:29 cat dander (CATS) Allergy Unknown UNKNOWN Verified 02/28/25 15:29 dog dander (DOGS) Allergy Unknown UNKNOWN Verified 02/28/25 15:29 mold (MOLD) Allergy Unknown UNKNOWN Verified 02/28/25 15:29 Assessment & Plan Assessment & Plan (1) MDD (major depressive disorder), recurrent, severe, with psychosis: Status: Acute Code(s): F33.3 - Major depressive disorder, recurrent, severe with psychotic symptoms (2) Hyperlipidemia: Qualifiers: Hyperlipidemia type: unspecified Qualified Code(s): E78.5 - Hyperlipidemia, unspecified Status: Acute Code(s): E78.5 - Hyperlipidemia, unspecified (3) Diabetes mellitus: Qualifiers: Diabetes mellitus complication status: with hyperglycemia Diabetes mellitus retirement insulin use: without retirement use Diabetes mellitus type: t ype 2 Qualified Code(s): E11.65 - Type 2 diabetes mellitus with hyperglycemia Status: Acute Code(s): E11.9 - Type 2 diabetes mellitus without complications (4) Vitamin D deficiency: Status: Acute Code(s): E55.9 - Vitamin D deficiency, unspecified (5) Chronic kidney disease, stage III (moderate): Qualifiers: Chronic kidney disease stage 3 subtype: stage 3a (GFR 45-59) Qualified Code(s): N18.31 - Chronic kidney disease, stage 3a Status: Acute Code(s): N18.30 - Chronic kidney disease, stage 3 unspecified (6) COPD (chronic obstructive pulmonary disease): Qualifiers: COPD type: unspecified COPD Qualified Code(s): J44.9 - Chronic obstructive pulmonary disease, unspecified Status: Acute Code(s): J44.9 - Chronic obstructive pulmonary disease, unspecified (7) Asthma: Qualifiers: Asthma complication type: unspecified Asthma persistence: unspecified Asthma severity: unspecified severity Qualified Code(s): J45.909 - Unspecified asthma, uncomplicated Status: Acute Code(s): J45.909 - Unspecified asthma, uncomplicated Plan HPI: Patient is a 54-year-old male with history of MDD with psychosis (rule out schizoaffective disorder depressed type), HTN, CKD, Asthma, COPD, HLD, DM presents for worsening depression in the face of psychosocial stressors. Patient reports that over the past month, since his last admission this past January, his depression has worsened since it has been stress with the house. Although he and his brother both own the house, his brother has been nagging him to move out and find another place to live. Patient reports increased depression and hopelessness, saying he feels nothing goes his way, I can not handle it anymore and this past week, after an argument with his brother, patient said he felt like no longer being alive. Patient reports he ran out of [employer] about a month ago since it was not refilled. Patient endorses auditory hallucinations. He only takes zyprexa 5mg once a day (not BID) and says it helps make voices quitier but the remain and it bugs him; discussed options and reviewed risks/side effects of antipsychotics and patient agrees to try risperidone. Patient denies any history of manic type episodes or behaviors; denies any alcohol or drug use. Formulation/clinical reasoning: Patient either has MDD with psychotic features or schizoaffective disorder; will try to further rule out. Patient has presented to the hospital several times this past year for depression. He says that for the past year he uses plastic utensils in order to be safe. He agrees to trying a different antipsychotic for auditory hallucinations and risperidone will be started. Will also consider Wellbutrin to help with depression. Hospital course: 03/03 Patient remains depressed. Also remains with AH but says it is a little better since Risperdal started. Agrees to titrate Risperdal to use Zyprexa as a p.r.n. Discussed history in much more detail at patient reports he has had AH and VH since he was young but never told anyone because he did not want people to think he was crazy. Says the AH is mostly just in the background but becomes more intense when he is depressed or upset; currently it will say the word bridge or knife which he interprets says voices wanting him to harm himself. Regarding VH patient will sometimes see the outline or shadow of a person that he finds distracting and can happen at any time. -patient has a hard time swallowing pills, particularly capsules which he opens up at home to take; not able to do that on inpatient unit, so he is looking for alternatives -patient is on omeprazole and has a sanforizer; narrative writer considered switching to famotidine (which literature suggests is generally preferred in CKD since it has less risk of accumulation and nephrotoxicity) since on the unit he is not able to take his omeprazole (as he is not allowed to poor out the capsule). Fight Manager will switch to famotidine just for this admission and then patient can resume omeprazole on discharge and continue working with outpatient provider 03/04: continue tx plan. Plan: Q 15 minutes CV Risperdal 1 mg daily Risperdal 2 mg q.h.s. Continue home medication Patient educated on: diagnosis and medication risk/benefits Reason for continued inpatient stay Substantial Risk for: med/psych decompensation Time Spent With Patient Time: Total time managing care of this patient today _20___ minutes.
[2025-03-04 17:11] LABS: Glucose, Whole Blood 191 mg/dL (60-115)
[2025-03-04 20:00] VITALS: BP 132/65; PULSE 91; RESP 20; TEMP 35.9; O2SAT 91
[2025-03-04 21:51] LABS: Glucose, Whole Blood 207 mg/dL (60-115)
[2025-03-05 07:52] LABS: Glucose, Whole Blood 191 mg/dL (60-115)
[2025-03-05 08:00] VITALS: BP 109/78; PULSE 99; RESP 16; TEMP 36.8; O2SAT 95
[2025-03-05 08:27] VITALS: BP 109/78
[2025-03-05] MEDS: Ferrous Sulfate 324 MG TABLET.DR PO (08:27)
[2025-03-05] MEDS: Insulin Glargine,Hum.rec.anlog 100 UNIT/ML 10 ML VIAL 15 UNIT SUBCUT (08:35)
[2025-03-05] MEDS: Albuterol Sulfate 90 MCG 8 GM INHALER 2 PUFF INHALE ×2 (08:52→17:02)
--- NOTE | 2025-03-05 11:35 | P.PNPSI_ITS ---
Subjective Subjective Date of Service: 03/05/25 Reason For Visit: Depression, si Interim History: Patient reports he feels similar to yesterday ; pt stated, I'm still depressed . He reports feeling a little suicidal . Continues with auditory hallucinations telling him to jump off a bridge . denies HI/VH. Continue tx plan. Medication Compliance: Yes Side effects from medications: No Mental Status Exam Mental Status Exam Patient Appearance: Appropriate Patient Orientation: Person, Place, Time and Situation Level of Consciousness: Awake and Alert Patient Behavior: Appropriate, Cooperative and Good Eye Contact Mood Description: Depressed and Anxious Affect Description: Depressed Ability to Follow Directions: Good Speech Pattern: Clear Memory Description: Intact Hallucinations: Auditory Delusions: Not Present Thought Process: Intact Thought Content: positive for Intact Diagnostics Vital Signs (24Hr): Vital Signs - 24 hr 03/04/25 20:00 03/05/25 08:00 03/05/25 08:27 Temperature 96.7 F L 98.2 F Pulse Rate 91 99 Respiratory Rate 20 16 Blood Pressure 132/65 109/78 109/78 Pulse Oximetry 91 L 95 Oxygen Delivery Method Room Air BMI result Body Mass Index 38.4 Labs 02/28/25 16:11 02/28/25 16:11 Labs: Laboratory Results - last 48 hr 03/03/25 03/03/25 03/03/25 11:55 16:37 21:21 POC Glucose 264 H 185 H 175 H 03/04/25 03/04/25 03/04/25 08:15 11:58 17:07 POC Glucose 157 H 184 H 191 H 03/04/25 03/05/25 21:36 07:47 POC Glucose 207 H 191 H Medications Medications Current Medications Acetaminophen (Acetaminophen 325 Mg Tablet) 650 mg PO Q6H PRN PRN Reason: Headache/Pain, Scale 1-10 Al Hydroxide/Mg Hydroxide (Magnesium Hydrox/Alum Hydrox 30 Ml Oral.Susp) 30 ml PO Q6H PRN PRN Reason: Heartburn/Nausea Albuterol Sulfate (Albuterol Sulfate 90 Mcg 8 Gm Inhaler) 2 puff INHALE RQ6H WHILE AWAKE PRN PRN Reason: Wheezing Last Admin: 03/05/25 08:52 Dose: 2 puff Atorvastatin Calcium (Atorvastatin Calcium 40 Mg Tablet) 40 mg PO DAILY [facility] Last Admin: 03/05/25 08:27 Dose: 40 mg Cephalexin HCl (Cephalexin 500 Mg Capsule) 500 mg PO BID [facility] Last Admin: 03/05/25 08:27 Dose: 500 mg Doxycycline Monohydrate (Doxycycline Monohydrate 100 Mg Capsule) 100 mg PO BID [facility] Stop: 03/07/25 09:00 Last Admin: 03/05/25 08:27 Dose: 100 mg Empagliflozin (Empagliflozin 10 Mg Tablet) 10 mg PO DAILY [facility] Last Admin: 03/05/25 08:27 Dose: 10 mg Escitalopram Oxalate (Escitalopram Oxalate 20 Mg Tablet) 20 mg PO DAILY [facility] Last Admin: 03/05/25 08:28 Dose: 20 mg Famotidine (Famotidine 20 Mg Tablet) 10 mg PO BID [facility] Last Admin: 03/05/25 08:28 Dose: 10 mg Ferrous Sulfate (Ferrous Sulfate 324 Mg Tablet.Dr) 324 mg PO DAILY [facility] Last Admin: 03/05/25 08:27 Dose: 324 mg Hydroxyzine HCl (Hydroxyzine Hcl 25 Mg Tablet) 25 mg PO TID PRN PRN Reason: Anxiety Last Admin: 03/05/25 08:26 Dose: 25 mg Hydroxyzine HCl (Hydroxyzine Hcl 25 Mg Tablet) 25 mg PO Q6H PRN PRN Reason: mild anxiety Insulin Glargine (Insulin Glargine,Hum.Rec.Anlog 100 Unit/Ml 10 Ml Vial) 15 unit SUBCUT DAILY [facility] Last Admin: 03/05/25 08:35 Dose: 15 unit Insulin Human Lispro (Insulin Lispro 100 Unit/Ml 3 Ml Vial) 0 unit SUBCUT TIDAC [facility]; Protocol Last Admin: 03/05/25 08:35 Dose: 2 unit Losartan Potassium (Losartan Potassium 25 Mg Tablet) 25 mg PO DAILY [facility]; Protocol Last Admin: 03/05/25 08:27 Dose: 25 mg Magnesium Hydroxide (Milk Of Magnesia 30 Ml Oral.Susp) 30 ml PO DAILY PRN PRN Reason: Constipation Metformin HCl (Metformin Hcl 1,000 Mg Tablet) 1,000 mg PO BID [facility] Last Admin: 03/05/25 08:26 Dose: 1,000 mg Nicotine Polacrilex (Nicotine Polacrilex 2 Mg Gum) 4 mg BUCCAL Q2H PRN PRN Reason: Nicotine Cravings Olanzapine (Olanzapine 5 Mg Tablet) 5 mg PO BID PRN PRN Reason: Auditory Hallucinations Last Admin: 03/05/25 08:25 Dose: 5 mg Omeprazole (Omeprazole 40 Mg Capsule.Dr) 40 mg PO DAILY@0630 [facility] On Hold: 03/03/25 16:52 Last Admin: 03/03/25 08:41 Dose: 40 mg Ondansetron HCl (Ondansetron Odt 4 Mg Tab.Rapdis) 4 mg TRANSLINGU Q8H PRN PRN Reason: Nausea and Vomiting Risperidone (Risperidone 1 Mg Tablet) 1 mg PO DAILY [facility] Last Admin: 03/05/25 08:31 Dose: 1 mg Risperidone (Risperidone 2 Mg Tablet) 2 mg PO BEDTIME [facility] Last Admin: 03/04/25 21:18 Dose: 2 mg Tamsulosin HCl (Tamsulosin Hcl 0.4 Mg Capsule) 0.4 mg PO BEDTIME [facility] Last Admin: 03/04/25 21:20 Dose: 0.4 mg Thiamine HCl (Thiamine Hcl 100 Mg Tablet) 100 mg PO BID [facility] Last Admin: 03/05/25 08:25 Dose: 100 mg Trazodone HCl (Trazodone Hcl 50 Mg Tablet) 50 mg PO BEDTIME MRX1 PRN PRN Reason: Insomnia Vitamin D (Cholecalciferol (Vitamin D3) 25 Mcg Tablet) 50 mcg PO DAILY [facility] Last Admin: 03/05/25 08:27 Dose: 50 mcg Allergies Allergies Allergy/AdvReac Type Severity Reaction Status Date / Time pollen extracts (POLLEN) Allergy Mild RUNNY NOSE Verified 02/28/25 15:29 cat dander (CATS) Allergy Unknown UNKNOWN Verified 02/28/25 15:29 dog dander (DOGS) Allergy Unknown UNKNOWN Verified 02/28/25 15:29 mold (MOLD) Allergy Unknown UNKNOWN Verified 02/28/25 15:29 Assessment & Plan Assessment & Plan (1) MDD (major depressive disorder), recurrent, severe, with psychosis: Status: Acute Code(s): F33.3 - Major depressive disorder, recurrent, severe with psychotic symptoms (2) Hyperlipidemia: Qualifiers: Hyperlipidemia type: unspecified Qualified Code(s): E78.5 - Hyperlipidemia, unspecified Status: Acute Code(s): E78.5 - Hyperlipidemia, unspecified (3) Diabetes mellitus: Qualifiers: Diabetes mellitus type: type 2 Diabetes mellitus [facility] insulin use: without mcc use Diabetes mellitus complication status: with hyperglycemia Qualified Code(s): E11.65 - Type 2 diabetes mellitus with hyperglycemia Status: Acute Code(s): E11.9 - Type 2 diabetes mellitus without complications (4) Vitamin D deficiency: Status: Acute Code(s): E55.9 - Vitamin D deficiency, unspecified (5) Chronic kidney disease, stage III (moderate): Qualifiers: Chronic kidney disease stage 3 subtype: stage 3a (GFR 45-59) Qualified Code(s): N18.31 - Chronic kidney disease, stage 3a Status: Acute Code(s): N18.30 - Chronic kidney disease, stage 3 unspecified (6) COPD (chronic obstructive pulmonary disease): Qualifiers: COPD type: unspecified COPD Qualified Code(s): J44.9 - Chronic obstructive pulmonary disease, unspecified Status: Acute Code(s): J44.9 - Chronic obstructive pulmonary disease, unspecified (7) Asthma: Qualifiers: Asthma severity: unspecified severity Asthma persistence: unspecified Asthma complication type: unspecified Qualified Code(s): J45.909 - Unspecified asthma, uncomplicated Status: Acute Code(s): J45.909 - Unspecified asthma, uncomplicated Plan HPI: Patient is a 54-year-old male with history of MDD with psychosis (rule out schizoaffective disorder depressed type), HTN, CKD, Asthma, COPD, HLD, DM presents for worsening depression in the face of psychosocial stressors. Patient reports that over the past month, since his last admission this past January, his depression has worsened since it has been stress with the house. Although he and his brother both own the house, his brother has been nagging him to move out and find another place to live. Patient reports increased depression and hopelessness, saying he feels nothing goes his way, I can not handle it anymore and this past week, after an argument with his brother, patient said he felt like no longer being alive. Patient reports he ran out of Lexapro about a month ago since it was not refilled. Patient endorses auditory hallucinations. He only takes zyprexa 5mg once a day (not BID) and says it helps make voices quitier but the remain and it bugs him; discussed options and reviewed risks/side effects of antipsychotics and patient agrees to try risperidone. Patient denies any history of manic type episodes or behaviors; denies any alcohol or drug use. Formulation/clinical reasoning: Patient either has MDD with psychotic features or schizoaffective disorder; will try to further rule out. Patient has presented to the hospital several times this past year for depression. He says that for the past year he uses plastic utensils in order to be safe. He agrees to trying a different antipsychotic for auditory hallucinations and risperidone will be started. Will also consider Wellbutrin to help with depression. Hospital course: 03/03 Patient remains depressed. Also remains with AH but says it is a little better since Risperdal started. Agrees to titrate Risperdal to use Zyprexa as a p.r.n. Discussed history in much more detail at patient reports he has had AH and VH since he was young but never told anyone because he did not want people to think he was crazy. Says the AH is mostly just in the background but becomes more intense when he is depressed or upset; currently it will say the word bridge or knife which he interprets says voices wanting him to harm himself. Regarding VH patient will sometimes see the outline or shadow of a person that he finds distracting and can happen at any time. -patient has a hard time swallowing pills, particularly capsules which he opens up at home to take; not able to do that on inpatient unit, so he is looking for alternatives -patient is on omeprazole and has a fixture builder; information writer considered switching to famotidine (which literature suggests is generally preferred in CKD since it has less risk of accumulation and nephrotoxicity) since on the unit he is not able to take his omeprazole (as he is not allowed to poor out the capsule). Boat Canvas Maker Installer will switch to famotidine just for this admission and then patient can resume omeprazole on discharge and continue working with outpatient provider 03/04: continue tx plan. 03/05: continue tx plan. Plan: Q 15 minutes CV Risperdal 1 mg daily Risperdal 2 mg q.h.s. Continue home medication Patient educated on: diagnosis, medication risk/benefits and therapeutic strategies Reason for continued inpatient stay Substantial Risk for: med/psych decompensation Time Spent With Patient Time: Total time managing care of this patient today _15___ minutes.
[2025-03-05 12:13] LABS: Glucose, Whole Blood 233 mg/dL (60-115)
[2025-03-05 16:30] LABS: Glucose, Whole Blood 190 mg/dL (60-115)
[2025-03-05 21:25] VITALS: BP 119/59; RESP 18; TEMP 36.9; O2SAT 96
[2025-03-05 21:25] LABS: Glucose, Whole Blood 186 mg/dL (60-115)
[2025-03-06 07:54] LABS: Glucose, Whole Blood 172 mg/dL (60-115)
[2025-03-06 08:00] VITALS: BP 136/74; PULSE 77; TEMP 36.4; O2SAT 90
[2025-03-06] MEDS: Ferrous Sulfate 324 MG TABLET.DR PO (08:30)
[2025-03-06] MEDS: Insulin Glargine,Hum.rec.anlog 100 UNIT/ML 10 ML VIAL 15 UNIT SUBCUT (08:36)
[2025-03-06] MEDS: Albuterol Sulfate 90 MCG 8 GM INHALER 2 PUFF INHALE ×3 (08:38→20:47)
[2025-03-06 09:28] VITALS: O2SAT 96
[2025-03-06 11:57] LABS: Glucose, Whole Blood 229 mg/dL (60-115)
[2025-03-06 15:03] VITALS: BP 137/65; PULSE 97; TEMP 36.9; O2SAT 95
--- NOTE | 2025-03-06 17:02 | HO.PSYCHPN ---
Subjective Subjective Date of Service: 03/06/25 Reason For Visit: Depression, si Interim History: Met with patient; discussed with team; reviewed chart Patient reports voices are better; still depressed. Mental Status Exam Mental Status Exam Narrative: Pt is alert and oriented; behavior is cooperative, calm, quiet patient is not in distress; dressed in hospital attire unkempt; mood is described as depressed and affect congruent, downcast; eye contact appropriate; Speech is a little soft and slow; psychomotor retardation present; thought process is organized and goal directed; Thought content is on psychosocial stressors; hopelessness; otherwise pertinent to relevant topics and without any delusional content, paranoid ideations or grandiosity; some SI; no HI. Reports AH. Patients insight and judgment impaired Diagnostics Vital Signs (24Hr): Vital Signs - 24 hr 03/05/25 21:25 03/06/25 08:00 03/06/25 09:28 Temperature 98.4 F 97.5 F Pulse Rate 77 Respiratory Rate 18 Blood Pressure 119/59 L 136/74 Pulse Oximetry 96 90 L 96 Oxygen Delivery Method Room Air Room Air Room Air 03/06/25 15:03 Temperature 98.4 F Pulse Rate 97 Respiratory Rate Blood Pressure 137/65 Pulse Oximetry 95 Oxygen Delivery Method Room Air BMI result Body Mass Index 38.4 Labs 02/28/25 16:11 03/07/25 07:43 Labs: Laboratory Results - last 48 hr 03/04/25 03/04/25 03/05/25 17:07 21:36 07:47 POC Glucose 191 H 207 H 191 H 03/05/25 03/05/25 03/05/25 12:08 16:23 21:12 POC Glucose 233 H 190 H 186 H 03/06/25 03/06/25 07:46 11:54 POC Glucose 172 H 229 H Medications Medications Current Medications Acetaminophen (Acetaminophen 325 Mg Tablet) 650 mg PO Q6H PRN PRN Reason: Headache/Pain, Scale 1-10 Last Admin: 03/05/25 17:08 Dose: 650 mg Al Hydroxide/Mg Hydroxide (Magnesium Hydrox/Alum Hydrox 30 Ml Oral.Susp) 30 ml PO Q6H PRN PRN Reason: Heartburn/Nausea Albuterol Sulfate (Albuterol Sulfate 90 Mcg 8 Gm Inhaler) 2 puff INHALE RQ6H WHILE AWAKE PRN PRN Reason: Wheezing Last Admin: 03/06/25 15:04 Dose: 2 puff Atorvastatin Calcium (Atorvastatin Calcium 40 Mg Tablet) 40 mg PO DAILY [facility] Last Admin: 03/06/25 08:31 Dose: 40 mg Bupropion HCl (Bupropion Hcl Xl 150 Mg Tab.Er.24h) 150 mg PO DAILY [facility] Cephalexin HCl (Cephalexin 500 Mg Capsule) 500 mg PO BID [facility] Last Admin: 03/06/25 08:30 Dose: 500 mg Clonidine HCl (Clonidine Hcl 0.1 Mg Tablet) 0.1 mg PO Q4H PRN; Protocol PRN Reason: moderate anxiety Last Admin: 03/06/25 15:04 Dose: 0.1 mg Doxycycline Monohydrate (Doxycycline Monohydrate 100 Mg Capsule) 100 mg PO BID [facility] Stop: 03/07/25 09:00 Last Admin: 03/06/25 08:32 Dose: 100 mg Empagliflozin (Empagliflozin 10 Mg Tablet) 10 mg PO DAILY [facility] Last Admin: 03/06/25 08:32 Dose: 10 mg Escitalopram Oxalate (Escitalopram Oxalate 20 Mg Tablet) 20 mg PO DAILY [facility] Last Admin: 03/06/25 08:33 Dose: 20 mg Famotidine (Famotidine 20 Mg Tablet) 10 mg PO BID [facility] Last Admin: 03/06/25 08:32 Dose: 10 mg Ferrous Sulfate (Ferrous Sulfate 324 Mg Tablet.Dr) 324 mg PO DAILY [facility] Last Admin: 03/06/25 08:30 Dose: 324 mg Hydroxyzine HCl (Hydroxyzine Hcl 25 Mg Tablet) 25 mg PO TID PRN PRN Reason: Anxiety Last Admin: 03/06/25 12:03 Dose: 25 mg Hydroxyzine HCl (Hydroxyzine Hcl 25 Mg Tablet) 25 mg PO Q6H PRN PRN Reason: mild anxiety Insulin Glargine (Insulin Glargine,Hum.Rec.Anlog 100 Unit/Ml 10 Ml Vial) 15 unit SUBCUT DAILY [facility] Last Admin: 03/06/25 08:36 Dose: 15 unit Insulin Human Lispro (Insulin Lispro 100 Unit/Ml 3 Ml Vial) 0 unit SUBCUT TIDAC [facility]; Protocol Last Admin: 03/06/25 12:03 Dose: 4 unit Losartan Potassium (Losartan Potassium 25 Mg Tablet) 25 mg PO DAILY [facility]; Protocol Last Admin: 03/06/25 08:30 Dose: 25 mg Magnesium Hydroxide (Milk Of Magnesia 30 Ml Oral.Susp) 30 ml PO DAILY PRN PRN Reason: Constipation Metformin HCl (Metformin Hcl 1,000 Mg Tablet) 1,000 mg PO BID [facility] Last Admin: 03/06/25 08:30 Dose: 1,000 mg Nicotine Polacrilex (Nicotine Polacrilex 2 Mg Gum) 4 mg BUCCAL Q2H PRN PRN Reason: Nicotine Cravings Olanzapine (Olanzapine 5 Mg Tablet) 5 mg PO BID PRN PRN Reason: Auditory Hallucinations Last Admin: 03/05/25 17:07 Dose: 5 mg Omeprazole (Omeprazole 40 Mg Capsule.Dr) 40 mg PO DAILY@0630 [facility] On Hold: 03/03/25 16:52 Last Admin: 03/03/25 08:41 Dose: 40 mg Ondansetron HCl (Ondansetron Odt 4 Mg Tab.Rapdis) 4 mg TRANSLINGU Q8H PRN PRN Reason: Nausea and Vomiting Risperidone (Risperidone 1 Mg Tablet) 1 mg PO DAILY [facility] Last Admin: 03/06/25 08:32 Dose: 1 mg Risperidone (Risperidone 2 Mg Tablet) 2 mg PO BEDTIME [facility] Last Admin: 03/05/25 21:13 Dose: 2 mg Tamsulosin HCl (Tamsulosin Hcl 0.4 Mg Capsule) 0.4 mg PO BEDTIME [facility] Last Admin: 03/05/25 21:13 Dose: 0.4 mg Thiamine HCl (Thiamine Hcl 100 Mg Tablet) 100 mg PO BID [facility] Last Admin: 03/06/25 08:31 Dose: 100 mg Trazodone HCl (Trazodone Hcl 50 Mg Tablet) 50 mg PO BEDTIME MRX1 PRN PRN Reason: Insomnia Vitamin D (Cholecalciferol (Vitamin D3) 25 Mcg Tablet) 50 mcg PO DAILY [facility] Last Admin: 03/06/25 08:30 Dose: 50 mcg Allergies Allergies Allergy/AdvReac Type Severity Reaction Status Date / Time pollen extracts (POLLEN) Allergy Mild RUNNY NOSE Verified 02/28/25 15:29 cat dander (CATS) Allergy Unknown UNKNOWN Verified 02/28/25 15:29 dog dander (DOGS) Allergy Unknown UNKNOWN Verified 02/28/25 15:29 mold (MOLD) Allergy Unknown UNKNOWN Verified 02/28/25 15:29 Assessment & Plan Assessment & Plan (1) MDD (major depressive disorder), recurrent, severe, with psychosis: Status: Acute Code(s): F33.3 - Major depressive disorder, recurrent, severe with psychotic symptoms (2) Hyperlipidemia: Qualifiers: Hyperlipidemia type: unspecified Qualified Code(s): E78.5 - Hyperlipidemia, unspecified Status: Acute Code(s): E78.5 - Hyperlipidemia, unspecified (3) Diabetes mellitus: Qualifiers: Diabetes mellitus complication status: with hyperglycemia Diabetes mellitus [facility] insulin use: without [facility] use Diabetes mellitus type: type 2 Qualified Code(s): E11.65 - Type 2 diabetes mellitus with hyperglycemia Status: Acute Code(s): E11.9 - Type 2 diabetes mellitus without complications (4) Vitamin D deficiency: Status: Acute Code(s): E55.9 - Vitamin D deficiency, unspecified (5) Chronic kidney disease, stage III (moderate): Qualifiers: Chronic kidney disease stage 3 subtype: stage 3a (GFR 45-59) Qualified Code(s): N18.31 - Chronic kidney disease, stage 3a Status: Acute Code(s): N18.30 - Chronic kidney disease, stage 3 unspecified (6) COPD (chronic obstructive pulmonary disease): Qualifiers: COPD type: unspecified COPD Qualified Code(s): J44.9 - Chronic obstructive pulmonary disease, unspecified Status: Acute Code(s): J44.9 - Chronic obstructive pulmonary disease, unspecified (7) Asthma: Qualifiers: Asthma complication type: unspecified Asthma persistence: unspecified Asthma severity: unspecified severity Qualified Code(s): J45.909 - Unspecified asthma, uncomplicated Status: Acute Code(s): J45.909 - Unspecified asthma, uncomplicated Plan HPI: Patient is a 54-year-old male with history of MDD with psychosis (rule out schizoaffective disorder depressed type), HTN, CKD, Asthma, COPD, HLD, DM presents for worsening depression in the face of psychosocial stressors. Patient reports that over the past month, since his last admission this past January, his depression has worsened since it has been stress with the house. Although he and his brother both own the house, his brother has been nagging him to move out and find another place to live. Patient reports increased depression and hopelessness, saying he feels nothing goes his way, I can not handle it anymore and this past week, after an argument with his brother, patient said he felt like no longer being alive. Patient reports he ran out of Lexapro about a month ago since it was not refilled. Patient endorses auditory hallucinations. He only takes zyprexa 5mg once a day (not BID) and says it helps make voices quitier but the remain and it bugs him; discussed options and reviewed risks/side effects of antipsychotics and patient agrees to try risperidone. Patient denies any history of manic type episodes or behaviors; denies any alcohol or drug use. Formulation/clinical reasoning: Patient either has MDD with psychotic features or schizoaffective disorder; will try to further rule out. Patient has presented to the hospital several times this past year for depression. He says that for the past year he uses plastic utensils in order to be safe. He agrees to trying a different antipsychotic for auditory hallucinations and risperidone will be started. Will also consider Wellbutrin to help with depression. Hospital course: 03/03 Patient remains depressed. Also remains with AH but says it is a little better since Risperdal started. Agrees to titrate Risperdal to use Zyprexa as a p.r.n. Discussed history in much more detail at patient reports he has had AH and VH since he was young but never told anyone because he did not want people to think he was crazy. Says the AH is mostly just in the background but becomes more intense when he is depressed or upset; currently it will say the word bridge or knife which he interprets says voices wanting him to harm himself. Regarding VH patient will sometimes see the outline or shadow of a person that he finds distracting and can happen at any time. -patient has a hard time swallowing pills, particularly capsules which he opens up at home to take; not able to do that on inpatient unit, so he is looking for alternatives -patient is on omeprazole and has a certified emergency vehicle technician; typewriter operator automatic considered switching to famotidine (which literature suggests is generally preferred in CKD since it has less risk of accumulation and nephrotoxicity) since on the unit he is not able to take his omeprazole (as he is not allowed to poor out the capsule). Mortgage Assistant will switch to famotidine just for this admission and then patient can resume omeprazole on discharge and continue working with outpatient provider 03/04: continue tx plan. 03/06 voices are better but remains depressed; discussed about increasing Wellbutrin but wants to leave it at 01:50 for now -discussed burning sensation on top of his feet; says it started about a week ago is intermittent but every day on the tops of his feet Plan: Q 15 minutes CV Wellbutrin XL 150 mg daily Risperdal 1 mg daily Risperdal 2 mg q.h.s. Continue home medication Patient educated on: diagnosis, medication risk/benefits and medical condition Informed Consent: understands Reason for continued inpatient stay Substantial Risk for: rapid decompensation Time Spent With Patient Time: Total time managing care of this patient today ____ minutes.
[2025-03-06 20:20] VITALS: BP 126/70; PULSE 98; RESP 18; TEMP 37.2; O2SAT 97
[2025-03-06 20:58] LABS: Glucose, Whole Blood 215 mg/dL (60-115)
[2025-03-07 07:57] LABS: Glucose, Whole Blood 164 mg/dL (60-115)
[2025-03-07 08:18] LABS: Creatinine Clr Calc Pharmacy 60.0; Estimated Glomerular Filt Rate 41
[2025-03-07] MEDS: Albuterol Sulfate 90 MCG 8 GM INHALER 2 PUFF INHALE ×3 (08:48→19:35)
[2025-03-07] MEDS: Insulin Glargine,Hum.rec.anlog 100 UNIT/ML 10 ML VIAL 15 UNIT SUBCUT (08:51)
[2025-03-07] MEDS: buPROPion HCl XL 150 MG TAB.ER.24H PO (08:53)
[2025-03-07 08:54] VITALS: BP 118/64; PULSE 71; TEMP 36.3; O2SAT 89
[2025-03-07] MEDS: Ferrous Sulfate 324 MG TABLET.DR PO (08:54)
[2025-03-07 09:10] VITALS: O2SAT 96
[2025-03-07 12:10] LABS: Glucose, Whole Blood 293 mg/dL (60-115)
[2025-03-07 12:14] VITALS: BP 126/64; PULSE 97; RESP 18; TEMP 36.3; O2SAT 94
[2025-03-07 17:02] LABS: Glucose, Whole Blood 211 mg/dL (60-115)
[2025-03-07 19:55] VITALS: BP 121/57; PULSE 84; RESP 20; TEMP 37.1; O2SAT 93
[2025-03-07 20:52] LABS: Glucose, Whole Blood 206 mg/dL (60-115)
--- NOTE | 2025-03-07 23:12 | P.PNPSI_ITS ---
Subjective Subjective Date of Service: 03/07/25 Reason For Visit: Depression, si Interim History: Met with patient; discussed with team Patient reports depression remains and agrees to increase Wellbutrin Mental Status Exam Mental Status Exam Narrative: Pt is alert and oriented; behavior is cooperative, calm, quiet patient is not in distress; dressed in hospital attire unkempt; mood is described as depressed and affect congruent, downcast; eye contact appropriate; Speech is a little soft and slow; psychomotor retardation present; thought process is organized and goal directed; Thought content is on psychosocial stressors; hopelessness; otherwise pertinent to relevant topics and without any delusional content, paranoid ideations or grandiosity; some SI; no HI. Reports AH but says it is not bothersome. Patients insight and judgment impaired Diagnostics Vital Signs (24Hr): Vital Signs - 24 hr 03/07/25 08:54 03/07/25 08:54 03/07/25 09:10 Temperature 97.3 F Pulse Rate 71 Respiratory Rate Blood Pressure 118/64 118/64 Pulse Oximetry 89 L 96 Oxygen Delivery Method Room Air Room Air 03/07/25 12:14 03/07/25 12:14 03/07/25 19:55 Temperature 97.4 F 98.7 F Pulse Rate 97 84 Respiratory Rate 18 20 Blood Pressure 126/64 126/64 121/57 L Pulse Oximetry 94 93 Oxygen Delivery Method Room Air Room Air BMI result Body Mass Index 38.4 Labs 02/28/25 16:11 03/07/25 07:43 Labs: Laboratory Results - last 48 hr 03/06/25 03/06/25 03/06/25 07:46 11:54 20:54 Creatinine Estim Creat Clear Calc Estimated GFR POC Glucose 172 H 229 H 215 H 03/07/25 03/07/25 03/07/25 07:43 07:53 12:08 Creatinine 1.73 H Estim Creat Clear Calc 60.0 Estimated GFR 41 POC Glucose 164 H 293 H 03/07/25 03/07/25 16:58 20:44 Creatinine Estim Creat Clear Calc Estimated GFR POC Glucose 211 H 206 H Medications Medications Current Medications Acetaminophen (Acetaminophen 325 Mg Tablet) 650 mg PO Q6H PRN PRN Reason: Headache/Pain, Scale 1-10 Last Admin: 03/05/25 17:08 Dose: 650 mg Al Hydroxide/Mg Hydroxide (Magnesium Hydrox/Alum Hydrox 30 Ml Oral.Susp) 30 ml PO Q6H PRN PRN Reason: Heartburn/Nausea Albuterol Sulfate (Albuterol Sulfate 90 Mcg 8 Gm Inhaler) 2 puff INHALE RQ6H WHILE AWAKE PRN PRN Reason: Wheezing Last Admin: 03/07/25 19:35 Dose: 2 puff Atorvastatin Calcium (Atorvastatin Calcium 40 Mg Tablet) 40 mg PO DAILY [facility] Last Admin: 03/07/25 08:53 Dose: 40 mg Bupropion HCl (Bupropion Hcl Xl 150 Mg Tab.Er.24h) 150 mg PO DAILY [facility] Last Admin: 03/07/25 08:53 Dose: 150 mg Cephalexin HCl (Cephalexin 500 Mg Capsule) 500 mg PO BID [facility] Last Admin: 03/07/25 20:59 Dose: 500 mg Clonidine HCl (Clonidine Hcl 0.1 Mg Tablet) 0.1 mg PO Q4H PRN; Protocol PRN Reason: moderate anxiety Last Admin: 03/07/25 12:14 Dose: 0.1 mg Empagliflozin (Empagliflozin 10 Mg Tablet) 10 mg PO DAILY [facility] Last Admin: 03/07/25 08:54 Dose: 10 mg Escitalopram Oxalate (Escitalopram Oxalate 20 Mg Tablet) 20 mg PO DAILY [facility] Last Admin: 03/07/25 08:52 Dose: 20 mg Famotidine (Famotidine 20 Mg Tablet) 10 mg PO BID [facility] Last Admin: 03/07/25 20:59 Dose: 10 mg Ferrous Sulfate (Ferrous Sulfate 324 Mg Tablet.Dr) 324 mg PO DAILY [facility] Last Admin: 03/07/25 08:54 Dose: 324 mg Hydroxyzine HCl (Hydroxyzine Hcl 25 Mg Tablet) 25 mg PO TID PRN PRN Reason: Anxiety Last Admin: 03/07/25 16:33 Dose: 25 mg Hydroxyzine HCl (Hydroxyzine Hcl 25 Mg Tablet) 25 mg PO Q6H PRN PRN Reason: mild anxiety Insulin Glargine (Insulin Glargine,Hum.Rec.Anlog 100 Unit/Ml 10 Ml Vial) 15 unit SUBCUT DAILY [facility] Last Admin: 03/07/25 08:51 Dose: 15 unit Insulin Human Lispro (Insulin Lispro 100 Unit/Ml 3 Ml Vial) 0 unit SUBCUT TIDAC [facility]; Protocol Last Admin: 03/07/25 17:28 Dose: 4 unit Losartan Potassium (Losartan Potassium 25 Mg Tablet) 25 mg PO DAILY [facility]; Protocol Last Admin: 03/07/25 08:54 Dose: 25 mg Magnesium Hydroxide (Milk Of Magnesia 30 Ml Oral.Susp) 30 ml PO DAILY PRN PRN Reason: Constipation Metformin HCl (Metformin Hcl 1,000 Mg Tablet) 1,000 mg PO BID [facility] Last Admin: 03/07/25 20:59 Dose: 1,000 mg Nicotine Polacrilex (Nicotine Polacrilex 2 Mg Gum) 4 mg BUCCAL Q2H PRN PRN Reason: Nicotine Cravings Olanzapine (Olanzapine 5 Mg Tablet) 5 mg PO BID PRN PRN Reason: Auditory Hallucinations Last Admin: 03/05/25 17:07 Dose: 5 mg Omeprazole (Omeprazole 40 Mg Capsule.Dr) 40 mg PO DAILY@0630 [facility] On Hold: 03/03/25 16:52 Last Admin: 03/03/25 08:41 Dose: 40 mg Ondansetron HCl (Ondansetron Odt 4 Mg Tab.Rapdis) 4 mg TRANSLINGU Q8H PRN PRN Reason: Nausea and Vomiting Risperidone (Risperidone 1 Mg Tablet) 1 mg PO DAILY [facility] Last Admin: 03/07/25 08:54 Dose: 1 mg Risperidone (Risperidone 2 Mg Tablet) 2 mg PO BEDTIME [facility] Last Admin: 03/07/25 20:59 Dose: 2 mg Tamsulosin HCl (Tamsulosin Hcl 0.4 Mg Capsule) 0.4 mg PO BEDTIME [facility] Last Admin: 03/07/25 20:59 Dose: 0.4 mg Thiamine HCl (Thiamine Hcl 100 Mg Tablet) 100 mg PO BID [facility] Last Admin: 03/07/25 20:59 Dose: 100 mg Trazodone HCl (Trazodone Hcl 50 Mg Tablet) 50 mg PO BEDTIME MRX1 PRN PRN Reason: Insomnia Vitamin D (Cholecalciferol (Vitamin D3) 25 Mcg Tablet) 50 mcg PO DAILY [facility] Last Admin: 03/07/25 08:52 Dose: 50 mcg Allergies Allergies Allergy/AdvReac Type Severity Reaction Status Date / Time pollen extracts (POLLEN) Allergy Mild RUNNY NOSE Verified 02/28/25 15:29 cat dander (CATS) Allergy Unknown UNKNOWN Verified 02/28/25 15:29 dog dander (DOGS) Allergy Unknown UNKNOWN Verified 02/28/25 15:29 mold (MOLD) Allergy Unknown UNKNOWN Verified 10/21/25 15:29 Assessment & Plan Assessment & Plan (1) MDD (major depressive disorder), recurrent, severe, with psychosis: Status: Acute Code(s): F33.3 - Major depressive disorder, recurrent, severe with psychotic symptoms (2) Hyperlipidemia: Qualifiers: Hyperlipidemia type: unspecified Qualified Code(s): E78.5 - Hyperlipidemia, unspecified Status: Acute Code(s): E78.5 - Hyperlipidemia, unspecified (3) Diabetes mellitus: Qualifiers: Diabetes mellitus complication status: with hyperglycemia Diabetes mellitus intermediate insulin use: without terminal superintendent use Diabetes mellitus type: t ype 2 Qualified Code(s): E11.65 - Type 2 diabetes mellitus with hyperglycemia Status: Acute Code(s): E11.9 - Type 2 diabetes mellitus without complications (4) Vitamin D deficiency: Status: Acute Code(s): E55.9 - Vitamin D deficiency, unspecified (5) Chronic kidney disease, stage III (moderate): Qualifiers: Chronic kidney disease stage 3 subtype: stage 3a (GFR 45-59) Qualified Code(s): N18.31 - Chronic kidney disease, stage 3a Status: Acute Code(s): N18.30 - Chronic kidney disease, stage 3 unspecified (6) COPD (chronic obstructive pulmonary disease): Qualifiers: COPD type: unspecified COPD Qualified Code(s): J44.9 - Chronic obstructive pulmonary disease, unspecified Status: Acute Code(s): J44.9 - Chronic obstructive pulmonary disease, unspecified (7) Asthma: Qualifiers: Asthma complication type: unspecified Asthma persistence: unspecified Asthma severity: unspecified severity Qualified Code(s): J45.909 - Unspecified asthma, uncomplicated Status: Acute Code(s): J45.909 - Unspecified asthma, uncomplicated Plan HPI: Patient is a 54-year-old male with history of MDD with psychosis (rule out schizoaffective disorder depressed type), HTN, CKD, Asthma, COPD, HLD, DM presents for worsening depression in the face of psychosocial stressors. Patient reports that over the past month, since his last admission this past January, his depression has worsened since it has been stress with the house. Although he and his brother both own the house, his brother has been nagging him to move out and find another place to live. Patient reports increased depression and hopelessness, saying he feels nothing goes his way, I can not handle it anymore and this past week, after an argument with his brother, patient said he felt like no longer being alive. Patient reports he ran out of Lexapro about a month ago since it was not refilled. Patient endorses auditory hallucinations. He only takes zyprexa 5mg once a day (not BID) and says it helps make voices quitier but the remain and it bugs him; discussed options and reviewed risks/side effects of antipsychotics and patient agrees to try risperidone. Patient denies any history of manic type episodes or behaviors; denies any alcohol or drug use. Formulation/clinical reasoning: Patient either has MDD with psychotic features or schizoaffective disorder; will try to further rule out. Patient has presented to the hospital several times this past year for depression. He says that for the past year he uses plastic utensils in order to be safe. He agrees to trying a different antipsychotic for auditory hallucinations and risperidone will be started. Will also consider Wellbutrin to help with depression. Hospital course: 03/03 Patient remains depressed. Also remains with AH but says it is a little better since Risperdal started. Agrees to titrate Risperdal to use Zyprexa as a p.r.n. Discussed history in much more detail at patient reports he has had AH and VH since he was young but never told anyone because he did not want people to think he was crazy. Says the AH is mostly just in the background but becomes more intense when he is depressed or upset; currently it will say the word bridge or knife which he interprets says voices wanting him to harm himself. Regarding VH patient will sometimes see the outline or shadow of a person that he finds distracting and can happen at any time. -patient has a hard time swallowing pills, particularly capsules which he opens up at home to take; not able to do that on inpatient unit, so he is looking for alternatives -patient is on omeprazole and has a it teacher; policy writer typist considered switching to famotidine (which literature suggests is generally preferred in CKD since it has less risk of accumulation and nephrotoxicity) since on the unit he is not able to take his omeprazole (as he is not allowed to poor out the capsule). Computer Analyst will switch to famotidine just for this admission and then patient can resume omeprazole on discharge and continue working with outpatient provider 03/04: continue tx plan. 03/06 voices are better but remains depressed; discussed about increasing Wellbutrin but wants to leave it at 01:50 for now -discussed burning sensation on top of his feet; says it started about a week ago is intermittent but every day on the tops of his feet 03/07 depression remains in agrees to increasing Wellbutrin Plan: Q 15 minutes CV Wellbutrin XL 150 mg daily Risperdal 1 mg daily Risperdal 2 mg q.h.s. Continue home medication Patient educated on: diagnosis, medication risk/benefits and medical condition Informed Consent: understands Reason for continued inpatient stay Substantial Risk for: rapid decompensation Time Spent With Patient Time: Total time managing care of this patient today ____ minutes.
[2025-03-08] MEDS: Magnesium Hydrox/Alum Hydrox 30 ML ORAL.SUSP PO ×2 (04:25→15:41)
[2025-03-08] MEDS: Albuterol Sulfate 90 MCG 8 GM INHALER 2 PUFF INHALE ×4 (04:25→21:22)
[2025-03-08 08:10] LABS: Glucose, Whole Blood 173 mg/dL (60-115)
[2025-03-08] MEDS: Insulin Glargine,Hum.rec.anlog 100 UNIT/ML 10 ML VIAL 15 UNIT SUBCUT (08:18)
[2025-03-08 08:19] VITALS: BP 115/56; PULSE 73; TEMP 36.3; O2SAT 90
[2025-03-08] MEDS: buPROPion HCl XL 150 MG TAB.ER.24H PO ×2 (08:20→12:02)
[2025-03-08] MEDS: Ferrous Sulfate 324 MG TABLET.DR PO (08:21)
[2025-03-08 12:14] LABS: Glucose, Whole Blood 200 mg/dL (60-115)
[2025-03-08 13:32] LABS: Folate 5.1 ng/mL (> or = 4.0); Vitamin B12 250 pg/mL (200-900)
[2025-03-08 17:06] LABS: Glucose, Whole Blood 228 mg/dL (60-115)
[2025-03-08 20:00] VITALS: BP 114/59; PULSE 85; RESP 20; TEMP 36.9; O2SAT 92
[2025-03-08 20:42] LABS: Glucose, Whole Blood 225 mg/dL (60-115)
[2025-03-08 21:24] VITALS: BP 114/59
[2025-03-09] MEDS: Albuterol Sulfate 90 MCG 8 GM INHALER 2 PUFF INHALE ×4 (01:30→20:24)
[2025-03-09] MEDS: Magnesium Hydrox/Alum Hydrox 30 ML ORAL.SUSP PO ×2 (01:32→12:09)
[2025-03-09 07:00] VITALS: BMI 38.4
[2025-03-09 07:57] LABS: Glucose, Whole Blood 177 mg/dL (60-115)
[2025-03-09 08:00] VITALS: BP 131/61; PULSE 77; TEMP 36.4; O2SAT 91
[2025-03-09] MEDS: Insulin Glargine,Hum.rec.anlog 100 UNIT/ML 10 ML VIAL 15 UNIT SUBCUT (08:23)
[2025-03-09] MEDS: Ferrous Sulfate 324 MG TABLET.DR PO (08:24)
[2025-03-09] MEDS: buPROPion HCl XL 300 MG TAB.ER.24H PO (08:25)
[2025-03-09 11:56] LABS: Glucose, Whole Blood 276 mg/dL (60-115)
[2025-03-09 17:11] LABS: Glucose, Whole Blood 231 mg/dL (60-115)
--- NOTE | 2025-03-09 17:17 | HO.PSYCHPN ---
Subjective Subjective Date of Service: 03/08/25 Reason For Visit: Depression, si Interim History: With entry note for patient seen on 03/08; discussed with team Patient remains depressed; AH remains minimal. Discussed possible etiologies for burning sensation on dorsum of feet and he agrees to lab work to rule out B12 deficiency Mental Status Exam Mental Status Exam Narrative: Pt is alert and oriented; behavior is cooperative, calm, quiet patient is not in distress; dressed in hospital attire unkempt; mood is described as depressed and affect congruent, downcast; eye contact appropriate; Speech is a little soft and slow; psychomotor retardation present; thought process is organized and goal directed; Thought content is on psychosocial stressors; hopelessness; otherwise pertinent to relevant topics and without any delusional content, paranoid ideations or grandiosity; passive SI; no HI. Reports AH but says it is not bothersome. Patients insight and judgment impaired Diagnostics Vital Signs (24Hr): Vital Signs - 24 hr 03/08/25 20:00 03/08/25 21:24 03/09/25 08:00 Temperature 98.5 F 97.5 F Pulse Rate 85 77 Respiratory Rate 20 Blood Pressure 114/59 L 114/59 L 131/61 Pulse Oximetry 92 91 L Oxygen Delivery Method Room Air Room Air BMI result Body Mass Index 38.4 Labs 02/28/25 16:11 03/07/25 07:43 Labs: Laboratory Results - last 48 hr 03/07/25 03/08/25 03/08/25 20:44 08:06 12:04 POC Glucose 206 H 173 H 200 H Vitamin B12 Folate 03/08/25 03/08/25 03/08/25 12:37 17:02 20:37 POC Glucose 228 H 225 H Vitamin B12 250 Folate 5.1 03/09/25 03/09/25 03/09/25 07:53 11:52 17:06 POC Glucose 177 H 276 H 231 H Vitamin B12 Folate Medications Medications Current Medications Acetaminophen (Acetaminophen 325 Mg Tablet) 650 mg PO Q6H PRN PRN Reason: Headache/Pain, Scale 1-10 Last Admin: 03/05/25 17:08 Dose: 650 mg Al Hydroxide/Mg Hydroxide (Magnesium Hydrox/Alum Hydrox 30 Ml Oral.Susp) 30 ml PO Q6H PRN PRN Reason: Heartburn/Nausea Last Admin: 03/09/25 12:09 Dose: 30 ml Albuterol Sulfate (Albuterol Sulfate 90 Mcg 8 Gm Inhaler) 2 puff INHALE RQ6H WHILE AWAKE PRN PRN Reason: Wheezing Last Admin: 03/09/25 15:56 Dose: 2 puff Atorvastatin Calcium (Atorvastatin Calcium 40 Mg Tablet) 40 mg PO DAILY [facility] Last Admin: 03/09/25 08:24 Dose: 40 mg Bupropion HCl (Bupropion Hcl Xl 300 Mg Tab.Er.24h) 300 mg PO DAILY [facility] Last Admin: 03/09/25 08:25 Dose: 300 mg Cephalexin HCl (Cephalexin 500 Mg Capsule) 500 mg PO BID [facility] Last Admin: 03/09/25 08:24 Dose: 500 mg Clonidine HCl (Clonidine Hcl 0.1 Mg Tablet) 0.1 mg PO Q4H PRN; Protocol PRN Reason: moderate anxiety Last Admin: 03/09/25 09:18 Dose: 0.1 mg Empagliflozin (Empagliflozin 10 Mg Tablet) 10 mg PO DAILY [facility] Last Admin: 03/09/25 08:24 Dose: 10 mg Escitalopram Oxalate (Escitalopram Oxalate 20 Mg Tablet) 20 mg PO DAILY [facility] Last Admin: 03/09/25 08:24 Dose: 20 mg Famotidine (Famotidine 20 Mg Tablet) 10 mg PO BID [facility] Last Admin: 03/09/25 08:25 Dose: 10 mg Ferrous Sulfate (Ferrous Sulfate 324 Mg Tablet.Dr) 324 mg PO DAILY [facility] Last Admin: 03/09/25 08:24 Dose: 324 mg Hydroxyzine HCl (Hydroxyzine Hcl 25 Mg Tablet) 25 mg PO TID PRN PRN Reason: Anxiety Last Admin: 03/07/25 16:33 Dose: 25 mg Hydroxyzine HCl (Hydroxyzine Hcl 25 Mg Tablet) 25 mg PO Q6H PRN PRN Reason: mild anxiety Insulin Glargine (Insulin Glargine,Hum.Rec.Anlog 100 Unit/Ml 10 Ml Vial) 15 unit SUBCUT DAILY [facility] Last Admin: 03/09/25 08:23 Dose: 15 unit Insulin Human Lispro (Insulin Lispro 100 Unit/Ml 3 Ml Vial) 0 unit SUBCUT TIDAC [facility]; Protocol Last Admin: 03/09/25 12:07 Dose: 6 unit Lidocaine (Lidocaine 4 % Patch Adh..Patch) 1 patch TRANSDERMA DAILY PRN; Protocol PRN Reason: lower back pain Losartan Potassium (Losartan Potassium 25 Mg Tablet) 25 mg PO DAILY [facility]; Protocol Last Admin: 03/09/25 08:24 Dose: 25 mg Magnesium Hydroxide (Milk Of Magnesia 30 Ml Oral.Susp) 30 ml PO DAILY PRN PRN Reason: Constipation Metformin HCl (Metformin Hcl 1,000 Mg Tablet) 1,000 mg PO BID [facility] Last Admin: 03/09/25 08:24 Dose: 1,000 mg Nicotine Polacrilex (Nicotine Polacrilex 2 Mg Gum) 4 mg BUCCAL Q2H PRN PRN Reason: Nicotine Cravings Olanzapine (Olanzapine 5 Mg Tablet) 5 mg PO BID PRN PRN Reason: Auditory Hallucinations Last Admin: 03/05/25 17:07 Dose: 5 mg Omeprazole (Omeprazole 40 Mg Capsule.Dr) 40 mg PO DAILY@0630 [facility] On Hold: 03/03/25 16:52 Last Admin: 03/03/25 08:41 Dose: 40 mg Ondansetron HCl (Ondansetron Odt 4 Mg Tab.Rapdis) 4 mg TRANSLINGU Q8H PRN PRN Reason: Nausea and Vomiting Risperidone (Risperidone 1 Mg Tablet) 1 mg PO DAILY [facility] Last Admin: 03/09/25 08:25 Dose: 1 mg Risperidone (Risperidone 2 Mg Tablet) 2 mg PO BEDTIME [facility] Last Admin: 03/08/25 20:30 Dose: 2 mg Tamsulosin HCl (Tamsulosin Hcl 0.4 Mg Capsule) 0.4 mg PO BEDTIME [facility] Last Admin: 03/08/25 20:31 Dose: 0.4 mg Thiamine HCl (Thiamine Hcl 100 Mg Tablet) 100 mg PO BID [facility] Last Admin: 03/09/25 08:25 Dose: 100 mg Trazodone HCl (Trazodone Hcl 50 Mg Tablet) 50 mg PO BEDTIME MRX1 PRN PRN Reason: Insomnia Vitamin D (Cholecalciferol (Vitamin D3) 25 Mcg Tablet) 50 mcg PO DAILY [facility] Last Admin: 03/09/25 08:24 Dose: 50 mcg Allergies Allergies Allergy/AdvReac Type Severity Reaction Status Date / Time pollen extracts (POLLEN) Allergy Mild RUNNY NOSE Verified 02/28/25 15:29 cat dander (CATS) Allergy Unknown UNKNOWN Verified 02/28/25 15:29 dog dander (DOGS) Allergy Unknown UNKNOWN Verified 02/28/25 15:29 mold (MOLD) Allergy Unknown UNKNOWN Verified 02/28/25 15:29 Assessment & Plan Assessment & Plan (1) MDD (major depressive disorder), recurrent, severe, with psychosis: Status: Acute Code(s): F33.3 - Major depressive disorder, recurrent, severe with psychotic symptoms (2) Hyperlipidemia: Qualifiers: Hyperlipidemia type: unspecified Qualified Code(s): E78.5 - Hyperlipidemia, unspecified Status: Acute Code(s): E78.5 - Hyperlipidemia, unspecified (3) Diabetes mellitus: Qualifiers: Diabetes mellitus complication status: with hyperglycemia Diabetes mellitus computer terminal operator insulin use: without computer terminal operator use Diabetes mellitus type: type 2 Qualified Code(s): E11.65 - Type 2 diabetes mellitus with hyperglycemia Status: Acute Code(s): E11.9 - Type 2 diabetes mellitus without complications (4) Vitamin D deficiency: Status: Acute Code(s): E55.9 - Vitamin D deficiency, unspecified (5) Chronic kidney disease, stage III (moderate): Qualifiers: Chronic kidney disease stage 3 subtype: stage 3a (GFR 45-59) Qualified Code(s): N18.31 - Chronic kidney disease, stage 3a Status: Acute Code(s): N18.30 - Chronic kidney disease, stage 3 unspecified (6) COPD (chronic obstructive pulmonary disease): Qualifiers: COPD type: unspecified COPD Qualified Code(s): J44.9 - Chronic obstructive pulmonary disease, unspecified Status: Acute Code(s): J44.9 - Chronic obstructive pulmonary disease, unspecified (7) Asthma: Qualifiers: Asthma complication type: unspecified Asthma persistence: unspecified Asthma severity: unspecified severity Qualified Code(s): J45.909 - Unspecified asthma, uncomplicated Status: Acute Code(s): J45.909 - Unspecified asthma, uncomplicated Plan HPI: Patient is a 54-year-old male with history of MDD with psychosis (rule out schizoaffective disorder depressed type), HTN, CKD, Asthma, COPD, HLD, DM presents for worsening depression in the face of psychosocial stressors. Patient reports that over the past month, since his last admission this past January, his depression has worsened since it has been stress with the house. Although he and his brother both own the house, his brother has been nagging him to move out and find another place to live. Patient reports increased depression and hopelessness, saying he feels nothing goes his way, I can not handle it anymore and this past week, after an argument with his brother, patient said he felt like no longer being alive. Patient reports he ran out of Lexapro about a month ago since it was not refilled. Patient endorses auditory hallucinations. He only takes zyprexa 5mg once a day (not BID) and says it helps make voices quitier but the remain and it bugs him; discussed options and reviewed risks/side effects of antipsychotics and patient agrees to try risperidone. Patient denies any history of manic type episodes or behaviors; denies any alcohol or drug use. Formulation/clinical reasoning: Patient either has MDD with psychotic features or schizoaffective disorder; will try to further rule out. Patient has presented to the hospital several times this past year for depression. He says that for the past year he uses plastic utensils in order to be safe. He agrees to trying a different antipsychotic for auditory hallucinations and risperidone will be started. Will also consider Wellbutrin to help with depression. Hospital course: 03/03 Patient remains depressed. Also remains with AH but says it is a little better since Risperdal started. Agrees to titrate Risperdal to use Zyprexa as a p.r.n. Discussed history in much more detail at patient reports he has had AH and VH since he was young but never told anyone because he did not want people to think he was crazy. Says the AH is mostly just in the background but becomes more intense when he is depressed or upset; currently it will say the word bridge or knife which he interprets says voices wanting him to harm himself. Regarding VH patient will sometimes see the outline or shadow of a person that he finds distracting and can happen at any time. -patient has a hard time swallowing pills, particularly capsules which he opens up at home to take; not able to do that on inpatient unit, so he is looking for alternatives -patient is on omeprazole and has a stenotype operator; marine underwriter considered switching to famotidine (which literature suggests is generally preferred in CKD since it has less risk of accumulation and nephrotoxicity) since on the unit he is not able to take his omeprazole (as he is not allowed to poor out the capsule). Cleaning Matron will switch to famotidine just for this admission and then patient can resume omeprazole on discharge and continue working with outpatient provider 03/04: continue tx plan. 03/06 voices are better but remains depressed; discussed about increasing Wellbutrin but wants to leave it at 01:50 for now -discussed burning sensation on top of his feet; says it started about a week ago is intermittent but every day on the tops of his feet 03/07 depression remains in agrees to increasing Wellbutrin 03/08 Patient remains depressed; AH remains minimal. Discussed possible etiologies for burning sensation on dorsum of feet and he agrees to lab work to rule out B12 deficiency Plan: Q 15 minutes CV Wellbutrin XL 300 mg daily Risperdal 1 mg daily Risperdal 2 mg q.h.s. Continue home medication Patient educated on: diagnosis, medication risk/benefits and medical condition Informed Consent: understands Reason for continued inpatient stay Substantial Risk for: rapid decompensation Time Spent With Patient Time: Total time managing care of this patient today ____ minutes.
--- NOTE | 2025-03-09 17:25 | HO.PSYCHPN ---
Subjective Subjective Date of Service: 03/09/25 Reason For Visit: Depression, si Interim History: Met with patient; discussed with team Patient reports that his mood is actually better today and that he is feeling pretty good voices remain muffled and not bothersome; discussed that B12 was WNL and that pain on the dorsum of his feet is likely from diabetic neuropathy. Discussed treatment options and patient wants to hold off on starting gabapentin for now after reviewing risks/side effects; health science writer also discussed risks of not starting medication Mental Status Exam Mental Status Exam Narrative: Pt is alert and oriented; behavior is cooperative, calm, quiet patient is not in distress; dressed in hospital attire unkempt; mood is described as pretty good and affect congruent, brighter; eye contact appropriate; Speech is a normal rate and volume; less psychomotor retardation present; thought process is organized and goal directed; Thought content is on psychosocial stressors, treatment; otherwise pertinent to relevant topics and without any delusional content, paranoid ideations or grandiosity; no SI; no HI. Reports AH but says it is not bothersome. Patients insight and judgment improving Diagnostics Vital Signs (24Hr): Vital Signs - 24 hr 03/08/25 20:00 03/08/25 21:24 03/09/25 08:00 Temperature 98.5 F 97.5 F Pulse Rate 85 77 Respiratory Rate 20 Blood Pressure 114/59 L 114/59 L 131/61 Pulse Oximetry 92 91 L Oxygen Delivery Method Room Air Room Air BMI result Body Mass Index 38.4 Labs 02/28/25 16:11 03/07/25 07:43 Labs: Laboratory Results - last 48 hr 03/07/25 03/08/25 03/08/25 20:44 08:06 12:04 POC Glucose 206 H 173 H 200 H Vitamin B12 Folate 03/08/25 03/08/25 03/08/25 12:37 17:02 20:37 POC Glucose 228 H 225 H Vitamin B12 250 Folate 5.1 03/09/25 03/09/25 03/09/25 07:53 11:52 17:06 POC Glucose 177 H 276 H 231 H Vitamin B12 Folate Medications Medications Current Medications Acetaminophen (Acetaminophen 325 Mg Tablet) 650 mg PO Q6H PRN PRN Reason: Headache/Pain, Scale 1-10 Last Admin: 03/05/25 17:08 Dose: 650 mg Al Hydroxide/Mg Hydroxide (Magnesium Hydrox/Alum Hydrox 30 Ml Oral.Susp) 30 ml PO Q6H PRN PRN Reason: Heartburn/Nausea Last Admin: 03/09/25 12:09 Dose: 30 ml Albuterol Sulfate (Albuterol Sulfate 90 Mcg 8 Gm Inhaler) 2 puff INHALE RQ6H WHILE AWAKE PRN PRN Reason: Wheezing Last Admin: 03/09/25 15:56 Dose: 2 puff Atorvastatin Calcium (Atorvastatin Calcium 40 Mg Tablet) 40 mg PO DAILY [facility] Last Admin: 03/09/25 08:24 Dose: 40 mg Bupropion HCl (Bupropion Hcl Xl 300 Mg Tab.Er.24h) 300 mg PO DAILY [facility] Last Admin: 03/09/25 08:25 Dose: 300 mg Cephalexin HCl (Cephalexin 500 Mg Capsule) 500 mg PO BID [facility] Last Admin: 03/09/25 08:24 Dose: 500 mg Clonidine HCl (Clonidine Hcl 0.1 Mg Tablet) 0.1 mg PO Q4H PRN; Protocol PRN Reason: moderate anxiety Last Admin: 03/09/25 09:18 Dose: 0.1 mg Empagliflozin (Empagliflozin 10 Mg Tablet) 10 mg PO DAILY [facility] Last Admin: 03/09/25 08:24 Dose: 10 mg Escitalopram Oxalate (Escitalopram Oxalate 20 Mg Tablet) 20 mg PO DAILY [facility] Last Admin: 03/09/25 08:24 Dose: 20 mg Famotidine (Famotidine 20 Mg Tablet) 10 mg PO BID [facility] Last Admin: 03/09/25 08:25 Dose: 10 mg Ferrous Sulfate (Ferrous Sulfate 324 Mg Tablet.Dr) 324 mg PO DAILY [facility] Last Admin: 03/09/25 08:24 Dose: 324 mg Hydroxyzine HCl (Hydroxyzine Hcl 25 Mg Tablet) 25 mg PO TID PRN PRN Reason: Anxiety Last Admin: 03/07/25 16:33 Dose: 25 mg Hydroxyzine HCl (Hydroxyzine Hcl 25 Mg Tablet) 25 mg PO Q6H PRN PRN Reason: mild anxiety Insulin Glargine (Insulin Glargine,Hum.Rec.Anlog 100 Unit/Ml 10 Ml Vial) 15 unit SUBCUT DAILY [facility] Last Admin: 03/09/25 08:23 Dose: 15 unit Insulin Human Lispro (Insulin Lispro 100 Unit/Ml 3 Ml Vial) 0 unit SUBCUT TIDAC [facility]; Protocol Last Admin: 03/09/25 12:07 Dose: 6 unit Lidocaine (Lidocaine 4 % Patch Adh..Patch) 1 patch TRANSDERMA DAILY PRN; Protocol PRN Reason: lower back pain Losartan Potassium (Losartan Potassium 25 Mg Tablet) 25 mg PO DAILY [facility]; Protocol Last Admin: 03/09/25 08:24 Dose: 25 mg Magnesium Hydroxide (Milk Of Magnesia 30 Ml Oral.Susp) 30 ml PO DAILY PRN PRN Reason: Constipation Metformin HCl (Metformin Hcl 1,000 Mg Tablet) 1,000 mg PO BID [facility] Last Admin: 03/09/25 08:24 Dose: 1,000 mg Nicotine Polacrilex (Nicotine Polacrilex 2 Mg Gum) 4 mg BUCCAL Q2H PRN PRN Reason: Nicotine Cravings Olanzapine (Olanzapine 5 Mg Tablet) 5 mg PO BID PRN PRN Reason: Auditory Hallucinations Last Admin: 03/05/25 17:07 Dose: 5 mg Omeprazole (Omeprazole 40 Mg Capsule.Dr) 40 mg PO DAILY@0630 [facility] On Hold: 03/03/25 16:52 Last Admin: 03/03/25 08:41 Dose: 40 mg Ondansetron HCl (Ondansetron Odt 4 Mg Tab.Rapdis) 4 mg TRANSLINGU Q8H PRN PRN Reason: Nausea and Vomiting Risperidone (Risperidone 1 Mg Tablet) 1 mg PO DAILY [facility] Last Admin: 03/09/25 08:25 Dose: 1 mg Risperidone (Risperidone 2 Mg Tablet) 2 mg PO BEDTIME [facility] Last Admin: 03/08/25 20:30 Dose: 2 mg Tamsulosin HCl (Tamsulosin Hcl 0.4 Mg Capsule) 0.4 mg PO BEDTIME [facility] Last Admin: 03/08/25 20:31 Dose: 0.4 mg Thiamine HCl (Thiamine Hcl 100 Mg Tablet) 100 mg PO BID [facility] Last Admin: 03/09/25 08:25 Dose: 100 mg Trazodone HCl (Trazodone Hcl 50 Mg Tablet) 50 mg PO BEDTIME MRX1 PRN PRN Reason: Insomnia Vitamin D (Cholecalciferol (Vitamin D3) 25 Mcg Tablet) 50 mcg PO DAILY [facility] Last Admin: 03/09/25 08:24 Dose: 50 mcg Allergies Allergies Allergy/AdvReac Type Severity Reaction Status Date / Time pollen extracts (POLLEN) Allergy Mild RUNNY NOSE Verified 02/28/25 15:29 cat dander (CATS) Allergy Unknown UNKNOWN Verified 02/28/25 15:29 dog dander (DOGS) Allergy Unknown UNKNOWN Verified 02/28/25 15:29 mold (MOLD) Allergy Unknown UNKNOWN Verified 02/28/25 15:29 Assessment & Plan Assessment & Plan (1) MDD (major depressive disorder), recurrent, severe, with psychosis: Status: Acute Code(s): F33.3 - Major depressive disorder, recurrent, severe with psychotic symptoms (2) Hyperlipidemia: Qualifiers: Hyperlipidemia type: unspecified Qualified Code(s): E78.5 - Hyperlipidemia, unspecified Status: Acute Code(s): E78.5 - Hyperlipidemia, unspecified (3) Diabetes mellitus: Qualifiers: Diabetes mellitus type: type 2 Diabetes mellitus long term care social worker insulin use: without fdc use Diabetes mellitus complication status: with hyperglycemia Qualified Code(s): E11.65 - Type 2 diabetes mellitus with hyperglycemia Status: Acute Code(s): E11.9 - Type 2 diabetes mellitus without complications (4) Vitamin D deficiency: Status: Acute Code(s): E55.9 - Vitamin D deficiency, unspecified (5) Chronic kidney disease, stage III (moderate): Qualifiers: Chronic kidney disease stage 3 subtype: stage 3a (GFR 45-59) Qualified Code(s): N18.31 - Chronic kidney disease, stage 3a Status: Acute Code(s): N18.30 - Chronic kidney disease, stage 3 unspecified (6) COPD (chronic obstructive pulmonary disease): Qualifiers: COPD type: unspecified COPD Qualified Code(s): J44.9 - Chronic obstructive pulmonary disease, unspecified Status: Acute Code(s): J44.9 - Chronic obstructive pulmonary disease, unspecified (7) Asthma: Qualifiers: Asthma severity: unspecified severity Asthma persistence: unspecified Asthma complication type: unspecified Qualified Code(s): J45.909 - Unspecified asthma, uncomplicated Status: Acute Code(s): J45.909 - Unspecified asthma, uncomplicated Plan HPI: Patient is a 54-year-old male with history of MDD with psychosis (rule out schizoaffective disorder depressed type), HTN, CKD, Asthma, COPD, HLD, DM presents for worsening depression in the face of psychosocial stressors. Patient reports that over the past month, since his last admission this past January, his depression has worsened since it has been stress with the house. Although he and his brother both own the house, his brother has been nagging him to move out and find another place to live. Patient reports increased depression and hopelessness, saying he feels nothing goes his way, I can not handle it anymore and this past week, after an argument with his brother, patient said he felt like no longer being alive. Patient reports he ran out of Lexapro about a month ago since it was not refilled. Patient endorses auditory hallucinations. He only takes zyprexa 5mg once a day (not BID) and says it helps make voices quitier but the remain and it bugs him; discussed options and reviewed risks/side effects of antipsychotics and patient agrees to try risperidone. Patient denies any history of manic type episodes or behaviors; denies any alcohol or drug use. Formulation/clinical reasoning: Patient either has MDD with psychotic features or schizoaffective disorder; will try to further rule out. Patient has presented to the hospital several times this past year for depression. He says that for the past year he uses plastic utensils in order to be safe. He agrees to trying a different antipsychotic for auditory hallucinations and risperidone will be started. Will also consider Wellbutrin to help with depression. Hospital course: 03/03 Patient remains depressed. Also remains with AH but says it is a little better since Risperdal started. Agrees to titrate Risperdal to use Zyprexa as a p.r.n. Discussed history in much more detail at patient reports he has had AH and VH since he was young but never told anyone because he did not want people to think he was crazy. Says the AH is mostly just in the background but becomes more intense when he is depressed or upset; currently it will say the word bridge or knife which he interprets says voices wanting him to harm himself. Regarding VH patient will sometimes see the outline or shadow of a person that he finds distracting and can happen at any time. -patient has a hard time swallowing pills, particularly capsules which he opens up at home to take; not able to do that on inpatient unit, so he is looking for alternatives -patient is on omeprazole and has a virtual classroom manager; health science writer considered switching to famotidine (which literature suggests is generally preferred in CKD since it has less risk of accumulation and nephrotoxicity) since on the unit he is not able to take his omeprazole (as he is not allowed to poor out the capsule). Oncology Rn will switch to famotidine just for this admission and then patient can resume omeprazole on discharge and continue working with outpatient provider 03/04: continue tx plan. 03/06 voices are better but remains depressed; discussed about increasing Wellbutrin but wants to leave it at 01:50 for now -discussed burning sensation on top of his feet; says it started about a week ago is intermittent but every day on the tops of his feet 03/07 depression remains in agrees to increasing Wellbutrin 03/08 Patient remains depressed; AH remains minimal. Discussed possible etiologies for burning sensation on dorsum of feet and he agrees to lab work to rule out B12 deficiency 03/09 Patient reports that his mood is actually better today and that he is feeling pretty good voices remain muffled and not bothersome; discussed that B12 was WNL and that pain on the dorsum of his feet is likely from diabetic neuropathy. Discussed treatment options and patient wants to hold off on starting gabapentin for now after reviewing risks/side effects; health science writer also discussed risks of not starting medication Plan: Q 15 minutes CV Wellbutrin XL 300 mg daily Risperdal 1 mg daily Risperdal 2 mg q.h.s. Continue home medication Patient educated on: diagnosis, medication risk/benefits and medical condition Informed Consent: understands Reason for continued inpatient stay Substantial Risk for: rapid decompensation Time Spent With Patient Time: Total time managing care of this patient today ____ minutes.
[2025-03-09 20:00] VITALS: BP 105/57; PULSE 73; RESP 18; TEMP 37.1; O2SAT 93
[2025-03-09 21:53] VITALS: BP 124/62
[2025-03-09 22:03] LABS: Glucose, Whole Blood 246 mg/dL (60-115)
[2025-03-10] MEDS: Albuterol Sulfate 90 MCG 8 GM INHALER 2 PUFF INHALE ×4 (05:16→18:15)
[2025-03-10] MEDS: Magnesium Hydrox/Alum Hydrox 30 ML ORAL.SUSP PO ×2 (05:19→21:07)
[2025-03-10 08:00] VITALS: BP 113/54; PULSE 81; RESP 18; TEMP 36.6; O2SAT 93
[2025-03-10 08:05] LABS: Glucose, Whole Blood 172 mg/dL (60-115)
[2025-03-10] MEDS: Insulin Glargine,Hum.rec.anlog 100 UNIT/ML 10 ML VIAL 15 UNIT SUBCUT (08:37)
[2025-03-10] MEDS: Ferrous Sulfate 324 MG TABLET.DR PO (08:38)
[2025-03-10] MEDS: buPROPion HCl XL 300 MG TAB.ER.24H PO (08:38)
[2025-03-10 11:34] LABS: Glucose, Whole Blood 248 mg/dL (60-115)
[2025-03-10 11:59] VITALS: BP 135/88
[2025-03-10 17:02] LABS: Glucose, Whole Blood 227 mg/dL (60-115)
--- NOTE | 2025-03-10 17:40 | P.PNPSI_ITS ---
Subjective Subjective Date of Service: 03/10/25 Reason For Visit: Depression, si Interim History: Met with patient; discussed with team Patient overall remains feeling better, mood better and AH lower still. Patient was triggered by a peer who was being aggressive on the unit but patient was able to reach out for help and peer was redirected. Discussed again neuropathy and patient remains ambivalent about starting gabapentin; will continue thinking about it. Diagnostics Vital Signs (24Hr): Vital Signs - 24 hr 03/09/25 20:00 03/09/25 21:53 03/10/25 08:00 Temperature 98.7 F 97.8 F Pulse Rate 73 81 Respiratory Rate 18 18 Blood Pressure 105/57 L 124/62 113/54 L Pulse Oximetry 93 93 Oxygen Delivery Method Room Air Room Air 03/10/25 11:59 Temperature Pulse Rate Respiratory Rate Blood Pressure 135/88 Pulse Oximetry Oxygen Delivery Method BMI result Body Mass Index 38.4 Labs 02/28/25 16:11 03/07/25 07:43 Labs: Laboratory Results - last 48 hr 03/08/25 03/09/25 03/09/25 20:37 07:53 11:52 POC Glucose 225 H 177 H 276 H 03/09/25 03/09/25 03/10/25 17:06 21:51 07:56 POC Glucose 231 H 246 H 172 H 03/10/25 03/10/25 11:31 16:57 POC Glucose 248 H 227 H Medications Medications Current Medications Acetaminophen (Acetaminophen 325 Mg Tablet) 650 mg PO Q6H PRN PRN Reason: Headache/Pain, Scale 1-10 Last Admin: 03/05/25 17:08 Dose: 650 mg Al Hydroxide/Mg Hydroxide (Magnesium Hydrox/Alum Hydrox 30 Ml Oral.Susp) 30 ml PO Q6H PRN PRN Reason: Heartburn/Nausea Last Admin: 03/10/25 05:19 Dose: 30 ml Albuterol Sulfate (Albuterol Sulfate 90 Mcg 8 Gm Inhaler) 2 puff INHALE RQ6H WHILE AWAKE PRN PRN Reason: Wheezing Last Admin: 03/10/25 11:57 Dose: 2 puff Atorvastatin Calcium (Atorvastatin Calcium 40 Mg Tablet) 40 mg PO DAILY [facility] Last Admin: 03/10/25 08:40 Dose: 40 mg Bupropion HCl (Bupropion Hcl Xl 300 Mg Tab.Er.24h) 300 mg PO DAILY [facility] Last Admin: 03/10/25 08:38 Dose: 300 mg Cephalexin HCl (Cephalexin 500 Mg Capsule) 500 mg PO BID [facility] Last Admin: 03/10/25 10:45 Dose: 500 mg Clonidine HCl (Clonidine Hcl 0.1 Mg Tablet) 0.1 mg PO Q4H PRN; Protocol PRN Reason: moderate anxiety Last Admin: 03/10/25 11:59 Dose: 0.1 mg Empagliflozin (Empagliflozin 10 Mg Tablet) 10 mg PO DAILY [facility] Last Admin: 03/10/25 08:40 Dose: 10 mg Escitalopram Oxalate (Escitalopram Oxalate 20 Mg Tablet) 20 mg PO DAILY [facility] Last Admin: 03/10/25 08:38 Dose: 20 mg Famotidine (Famotidine 20 Mg Tablet) 10 mg PO BID [facility] Last Admin: 03/10/25 08:55 Dose: 10 mg Ferrous Sulfate (Ferrous Sulfate 324 Mg Tablet.Dr) 324 mg PO DAILY [facility] Last Admin: 03/10/25 08:38 Dose: 324 mg Hydroxyzine HCl (Hydroxyzine Hcl 25 Mg Tablet) 25 mg PO Q6H PRN PRN Reason: mild anxiety Insulin Glargine (Insulin Glargine,Hum.Rec.Anlog 100 Unit/Ml 10 Ml Vial) 15 unit SUBCUT DAILY [facility] Last Admin: 03/10/25 08:37 Dose: 15 unit Insulin Human Lispro (Insulin Lispro 100 Unit/Ml 3 Ml Vial) 0 unit SUBCUT TIDAC [facility]; Protocol Last Admin: 03/10/25 17:25 Dose: 4 unit Lidocaine (Lidocaine 4 % Patch Adh..Patch) 1 patch TRANSDERMA DAILY PRN; Protocol PRN Reason: lower back pain Losartan Potassium (Losartan Potassium 25 Mg Tablet) 25 mg PO DAILY [facility]; Protocol Last Admin: 03/10/25 08:40 Dose: 25 mg Magnesium Hydroxide (Milk Of Magnesia 30 Ml Oral.Susp) 30 ml PO DAILY PRN PRN Reason: Constipation Metformin HCl (Metformin Hcl 1,000 Mg Tablet) 1,000 mg PO BID [facility] Last Admin: 03/10/25 08:40 Dose: 1,000 mg Nicotine Polacrilex (Nicotine Polacrilex 2 Mg Gum) 4 mg BUCCAL Q2H PRN PRN Reason: Nicotine Cravings Olanzapine (Olanzapine 5 Mg Tablet) 5 mg PO BID PRN PRN Reason: Auditory Hallucinations Last Admin: 03/05/25 17:07 Dose: 5 mg Omeprazole (Omeprazole 40 Mg Capsule.Dr) 40 mg PO DAILY@0630 [facility] On Hold: 03/03/25 16:52 Last Admin: 03/03/25 08:41 Dose: 40 mg Ondansetron HCl (Ondansetron Odt 4 Mg Tab.Rapdis) 4 mg TRANSLINGU Q8H PRN PRN Reason: Nausea and Vomiting Risperidone (Risperidone 1 Mg Tablet) 1 mg PO DAILY [facility] Last Admin: 03/10/25 08:40 Dose: 1 mg Risperidone (Risperidone 2 Mg Tablet) 2 mg PO BEDTIME [facility] Last Admin: 03/09/25 22:16 Dose: 2 mg Tamsulosin HCl (Tamsulosin Hcl 0.4 Mg Capsule) 0.4 mg PO BEDTIME [facility] Last Admin: 03/09/25 22:14 Dose: 0.4 mg Thiamine HCl (Thiamine Hcl 100 Mg Tablet) 100 mg PO BID [facility] Last Admin: 03/10/25 08:40 Dose: 100 mg Trazodone HCl (Trazodone Hcl 50 Mg Tablet) 50 mg PO BEDTIME MRX1 PRN PRN Reason: Insomnia Vitamin D (Cholecalciferol (Vitamin D3) 25 Mcg Tablet) 50 mcg PO DAILY [facility] Last Admin: 03/10/25 08:37 Dose: 50 mcg Allergies Allergies Allergy/AdvReac Type Severity Reaction Status Date / Time pollen extracts (POLLEN) Allergy Mild RUNNY NOSE Verified 02/28/25 15:29 cat dander (CATS) Allergy Unknown UNKNOWN Verified 02/28/25 15:29 dog dander (DOGS) Allergy Unknown UNKNOWN Verified 02/28/25 15:29 mold (MOLD) Allergy Unknown UNKNOWN Verified 02/28/25 15:29 Assessment & Plan Assessment & Plan (1) MDD (major depressive disorder), recurrent, severe, with psychosis: Status: Acute Code(s): F33.3 - Major depressive disorder, recurrent, severe with psychotic symptoms (2) Hyperlipidemia: Qualifiers: Hyperlipidemia type: unspecified Qualified Code(s): E78.5 - Hyperlipidemia, unspecified Status: Acute Code(s): E78.5 - Hyperlipidemia, unspecified (3) Diabetes mellitus: Qualifiers: Diabetes mellitus type: type 2 Diabetes mellitus terminal computer operator insulin use: without fci use Diabetes mellitus complication status: with hyperglycemia Qualified Code(s): E11.65 - Type 2 diabetes mellitus with hyperglycemia Status: Acute Code(s): E11.9 - Type 2 diabetes mellitus without complications (4) Vitamin D deficiency: Status: Acute Code(s): E55.9 - Vitamin D deficiency, unspecified (5) Chronic kidney disease, stage III (moderate): Qualifiers: Chronic kidney disease stage 3 subtype: stage 3a (GFR 45-59) Qualified Code(s): N18.31 - Chronic kidney disease, stage 3a Status: Acute Code(s): N18.30 - Chronic kidney disease, stage 3 unspecified (6) COPD (chronic obstructive pulmonary disease): Qualifiers: COPD type: unspecified COPD Qualified Code(s): J44.9 - Chronic obstructive pulmonary disease, unspecified Status: Acute Code(s): J44.9 - Chronic obstructive pulmonary disease, unspecified (7) Asthma: Qualifiers: Asthma severity: unspecified severity Asthma persistence: unspecified Asthma complication type: unspecified Qualified Code(s): J45.909 - Unspecified asthma, uncomplicated Status: Acute Code(s): J45.909 - Unspecified asthma, uncomplicated Plan HPI: Patient is a 54-year-old male with history of MDD with psychosis (rule out schizoaffective disorder depressed type), HTN, CKD, Asthma, COPD, HLD, DM presents for worsening depression in the face of psychosocial stressors. Patient reports that over the past month, since his last admission this past January, his depression has worsened since it has been stress with the house. Although he and his brother both own the house, his brother has been nagging him to move out and find another place to live. Patient reports increased depression and hopelessness, saying he feels nothing goes his way, I can not handle it anymore and this past week, after an argument with his brother, patient said he felt like no longer being alive. Patient reports he ran out of Lexapro about a month ago since it was not refilled. Patient endorses auditory hallucinations. He only takes zyprexa 5mg once a day (not BID) and says it helps make voices quitier but the remain and it bugs him; discussed options and reviewed risks/side effects of antipsychotics and patient agrees to try risperidone. Patient denies any history of manic type episodes or behaviors; denies any alcohol or drug use. Formulation/clinical reasoning: Patient either has MDD with psychotic features or schizoaffective disorder; will try to further rule out. Patient has presented to the hospital several times this past year for depression. He says that for the past year he uses plastic utensils in order to be safe. He agrees to trying a different antipsychotic for auditory hallucinations and risperidone will be started. Will also consider Wellbutrin to help with depression. Hospital course: 03/03 Patient remains depressed. Also remains with AH but says it is a little better since Risperdal started. Agrees to titrate Risperdal to use Zyprexa as a p.r.n. Discussed history in much more detail at patient reports he has had AH and VH since he was young but never told anyone because he did not want people to think he was crazy. Says the AH is mostly just in the background but becomes more intense when he is depressed or upset; currently it will say the word bridge or knife which he interprets says voices wanting him to harm himself. Regarding VH patient will sometimes see the outline or shadow of a person that he finds distracting and can happen at any time. -patient has a hard time swallowing pills, particularly capsules which he opens up at home to take; not able to do that on inpatient unit, so he is looking for alternatives -patient is on omeprazole and has a florist helper; ghost writer considered switching to famotidine (which literature suggests is generally preferred in CKD since it has less risk of accumulation and nephrotoxicity) since on the unit he is not able to take his omeprazole (as he is not allowed to poor out the capsule). Completion Supervisor will switch to famotidine just for this admission and then patient can resume omeprazole on discharge and continue working with outpatient provider 03/04: continue tx plan. 03/06 voices are better but remains depressed; discussed about increasing Wellbutrin but wants to leave it at 01:50 for now -discussed burning sensation on top of his feet; says it started about a week ago is intermittent but every day on the tops of his feet 03/07 depression remains in agrees to increasing Wellbutrin 03/08 Patient remains depressed; AH remains minimal. Discussed possible etiologies for burning sensation on dorsum of feet and he agrees to lab work to rule out B12 deficiency 03/09 Patient reports that his mood is actually better today and that he is feeling pretty good voices remain muffled and not bothersome; discussed that B12 was WNL and that pain on the dorsum of his feet is likely from diabetic neuropathy. Discussed treatment options and patient wants to hold off on starting gabapentin for now after reviewing risks/side effects; ghost writer also discussed risks of not starting medication 03/10 Patient overall remains feeling better, mood better and AH lower still. Patient was triggered by a peer who was being aggressive on the unit but patient was able to reach out for help and peer was redirected. Discussed again neuropathy and patient remains ambivalent about starting gabapentin; will continue thinking about it. Plan: Q 15 minutes CV Wellbutrin XL 300 mg daily Risperdal 1 mg daily Risperdal 2 mg q.h.s. Continue home medication Patient educated on: diagnosis, medication risk/benefits, therapeutic strategies and medical condition Informed Consent: understands Reason for continued inpatient stay Substantial Risk for: med/psych decompensation Time Spent With Patient Time: Total time managing care of this patient today ____ minutes.
[2025-03-10 20:33] VITALS: BP 129/65; PULSE 91; RESP 16; TEMP 37.3; O2SAT 94
[2025-03-10 20:45] VITALS: BP 129/65
[2025-03-10 21:30] LABS: Glucose, Whole Blood 174 mg/dL (60-115)
[2025-03-11 08:00] VITALS: BP 128/66; PULSE 72; TEMP 36.4; O2SAT 92
[2025-03-11 08:13] LABS: Glucose, Whole Blood 176 mg/dL (60-115)
[2025-03-11] MEDS: Insulin Glargine,Hum.rec.anlog 100 UNIT/ML 10 ML VIAL 15 UNIT SUBCUT (08:38)
[2025-03-11] MEDS: Albuterol Sulfate 90 MCG 8 GM INHALER 2 PUFF INHALE ×2 (08:40→17:10)
[2025-03-11] MEDS: Ferrous Sulfate 324 MG TABLET.DR PO (08:42)
[2025-03-11] MEDS: buPROPion HCl XL 300 MG TAB.ER.24H PO (08:42)
--- NOTE | 2025-03-11 09:41 | P.PNPSI_ITS ---
Subjective Subjective Date of Service: 03/11/25 Reason For Visit: Depression, si Interim History: met with pt; discussed with team Patient reports he remains doing overall well, depression mostly gone, much better mood, and AH minimal and not bothersome. Again discussed diabetic neuropathy and patient said he will wait to talk to his PCP regarding whether or not do start gabapentin or other treatment. mse: Pt is alert and oriented; behavior is cooperative, friendly and calm; patient is not in distress; dressed in casual/hospital attire, unkempt; mood is good and affect congruent, calm; eye contact appropriate; Speech is normal rate, volume and prosody and not pressured; no psychomotor agitation/retardation present; thought process is organized and goal directed; Thought content is on tx; otherwise pertinent to relevant topics and without any delusional content, paranoid ideations or grandiosity; denies any SI/HI. Minimal AH which is not bothersome. Patients insight and judgment appear intact. Diagnostics Vital Signs (24Hr): Vital Signs - 24 hr 03/10/25 11:59 03/10/25 20:33 03/10/25 20:45 Temperature 99.1 F Pulse Rate 91 Respiratory Rate 16 Blood Pressure 135/88 129/65 129/65 Pulse Oximetry 94 Oxygen Delivery Method Room Air 03/11/25 08:00 Temperature 97.5 F Pulse Rate 72 Respiratory Rate Blood Pressure 128/66 Pulse Oximetry 92 Oxygen Delivery Method Room Air BMI result Body Mass Index 38.4 Labs 02/28/25 16:11 03/07/25 07:43 Labs: Laboratory Results - last 48 hr 03/09/25 03/09/25 03/09/25 11:52 17:06 21:51 POC Glucose 276 H 231 H 246 H 03/10/25 03/10/25 03/10/25 07:56 11:31 16:57 POC Glucose 172 H 248 H 227 H 03/10/25 03/11/25 21:26 08:09 POC Glucose 174 H 176 H Medications Medications Current Medications Acetaminophen (Acetaminophen 325 Mg Tablet) 650 mg PO Q6H PRN PRN Reason: Headache/Pain, Scale 1-10 Last Admin: 03/05/25 17:08 Dose: 650 mg Al Hydroxide/Mg Hydroxide (Magnesium Hydrox/Alum Hydrox 30 Ml Oral.Susp) 30 ml PO Q6H PRN PRN Reason: Heartburn/Nausea Last Admin: 03/10/25 21:07 Dose: 30 ml Albuterol Sulfate (Albuterol Sulfate 90 Mcg 8 Gm Inhaler) 2 puff INHALE RQ6H WHILE AWAKE PRN PRN Reason: Wheezing Last Admin: 03/11/25 08:40 Dose: 2 puff Atorvastatin Calcium (Atorvastatin Calcium 40 Mg Tablet) 40 mg PO DAILY [facility] Last Admin: 03/11/25 08:41 Dose: 40 mg Bupropion HCl (Bupropion Hcl Xl 300 Mg Tab.Er.24h) 300 mg PO DAILY [facility] Last Admin: 03/11/25 08:42 Dose: 300 mg Clonidine HCl (Clonidine Hcl 0.1 Mg Tablet) 0.1 mg PO Q4H PRN; Protocol PRN Reason: moderate anxiety Last Admin: 03/10/25 20:45 Dose: 0.1 mg Empagliflozin (Empagliflozin 10 Mg Tablet) 10 mg PO DAILY [facility] Last Admin: 03/11/25 08:42 Dose: 10 mg Escitalopram Oxalate (Escitalopram Oxalate 20 Mg Tablet) 20 mg PO DAILY [facility] Last Admin: 03/11/25 08:42 Dose: 20 mg Famotidine (Famotidine 20 Mg Tablet) 10 mg PO BID [facility] Last Admin: 03/11/25 08:41 Dose: 10 mg Ferrous Sulfate (Ferrous Sulfate 324 Mg Tablet.Dr) 324 mg PO DAILY [facility] Last Admin: 03/11/25 08:42 Dose: 324 mg Hydroxyzine HCl (Hydroxyzine Hcl 25 Mg Tablet) 25 mg PO Q6H PRN PRN Reason: mild anxiety Last Admin: 03/10/25 18:16 Dose: 25 mg Insulin Glargine (Insulin Glargine,Hum.Rec.Anlog 100 Unit/Ml 10 Ml Vial) 15 unit SUBCUT DAILY [facility] Last Admin: 03/11/25 08:38 Dose: 15 unit Insulin Human Lispro (Insulin Lispro 100 Unit/Ml 3 Ml Vial) 0 unit SUBCUT TIDAC [facility]; Protocol Last Admin: 03/11/25 08:38 Dose: 2 unit Lidocaine (Lidocaine 4 % Patch Adh..Patch) 1 patch TRANSDERMA DAILY PRN; Protocol PRN Reason: lower back pain Losartan Potassium (Losartan Potassium 25 Mg Tablet) 25 mg PO DAILY [facility]; Protocol Last Admin: 03/11/25 08:42 Dose: 25 mg Magnesium Hydroxide (Milk Of Magnesia 30 Ml Oral.Susp) 30 ml PO DAILY PRN PRN Reason: Constipation Metformin HCl (Metformin Hcl 500 Mg Tablet) 500 mg PO BID [facility] Last Admin: 03/11/25 08:42 Dose: 500 mg Nicotine Polacrilex (Nicotine Polacrilex 2 Mg Gum) 4 mg BUCCAL Q2H PRN PRN Reason: Nicotine Cravings Olanzapine (Olanzapine 5 Mg Tablet) 5 mg PO BID PRN PRN Reason: Auditory Hallucinations Last Admin: 03/05/25 17:07 Dose: 5 mg Omeprazole (Omeprazole 40 Mg Capsule.Dr) 40 mg PO DAILY@0630 [facility] On Hold: 03/03/25 16:52 Last Admin: 03/03/25 08:41 Dose: 40 mg Ondansetron HCl (Ondansetron Odt 4 Mg Tab.Rapdis) 4 mg TRANSLINGU Q8H PRN PRN Reason: Nausea and Vomiting Risperidone (Risperidone 1 Mg Tablet) 1 mg PO DAILY [facility] Last Admin: 03/11/25 08:42 Dose: 1 mg Risperidone (Risperidone 2 Mg Tablet) 2 mg PO BEDTIME [facility] Last Admin: 03/10/25 20:43 Dose: 2 mg Tamsulosin HCl (Tamsulosin Hcl 0.4 Mg Capsule) 0.4 mg PO BEDTIME [facility] Last Admin: 03/10/25 20:44 Dose: 0.4 mg Thiamine HCl (Thiamine Hcl 100 Mg Tablet) 100 mg PO BID [facility] Last Admin: 03/11/25 08:42 Dose: 100 mg Trazodone HCl (Trazodone Hcl 50 Mg Tablet) 50 mg PO BEDTIME MRX1 PRN PRN Reason: Insomnia Vitamin D (Cholecalciferol (Vitamin D3) 25 Mcg Tablet) 50 mcg PO DAILY [facility] Last Admin: 03/11/25 08:41 Dose: 50 mcg Allergies Allergies Allergy/AdvReac Type Severity Reaction Status Date / Time pollen extracts (POLLEN) Allergy Mild RUNNY NOSE Verified 02/28/25 15:29 cat dander (CATS) Allergy Unknown UNKNOWN Verified 02/28/25 15:29 dog dander (DOGS) Allergy Unknown UNKNOWN Verified 02/28/25 15:29 mold (MOLD) Allergy Unknown UNKNOWN Verified 02/28/25 15:29 Assessment & Plan Assessment & Plan (1) MDD (major depressive disorder), recurrent, severe, with psychosis: Status: Acute Code(s): F33.3 - Major depressive disorder, recurrent, severe with psychotic symptoms (2) Hyperlipidemia: Qualifiers: Hyperlipidemia type: unspecified Qualified Code(s): E78.5 - Hyperlipidemia, unspecified Status: Acute Code(s): E78.5 - Hyperlipidemia, unspecified (3) Diabetes mellitus: Qualifiers: Diabetes mellitus complication status: with hyperglycemia Diabetes mellitus terminal carman insulin use: without custodial use Diabetes mellitus type: t ype 2 Qualified Code(s): E11.65 - Type 2 diabetes mellitus with hyperglycemia Status: Acute Code(s): E11.9 - Type 2 diabetes mellitus without complications (4) Vitamin D deficiency: Status: Acute Code(s): E55.9 - Vitamin D deficiency, unspecified (5) Chronic kidney disease, stage III (moderate): Qualifiers: Chronic kidney disease stage 3 subtype: stage 3a (GFR 45-59) Qualified Code(s): N18.31 - Chronic kidney disease, stage 3a Status: Acute Code(s): N18.30 - Chronic kidney disease, stage 3 unspecified (6) COPD (chronic obstructive pulmonary disease): Qualifiers: COPD type: unspecified COPD Qualified Code(s): J44.9 - Chronic obstructive pulmonary disease, unspecified Status: Acute Code(s): J44.9 - Chronic obstructive pulmonary disease, unspecified (7) Asthma: Qualifiers: Asthma complication type: unspecified Asthma persistence: unspecified Asthma severity: unspecified severity Qualified Code(s): J45.909 - Unspecified asthma, uncomplicated Status: Acute Code(s): J45.909 - Unspecified asthma, uncomplicated Plan HPI: Patient is a 54-year-old male with history of MDD with psychosis (rule out schizoaffective disorder depressed type), HTN, CKD, Asthma, COPD, HLD, DM presents for worsening depression in the face of psychosocial stressors. Patient reports that over the past month, since his last admission this past January, his depression has worsened since it has been stress with the house. Although he and his brother both own the house, his brother has been nagging him to move out and find another place to live. Patient reports increased depression and hopelessness, saying he feels nothing goes his way, I can not handle it anymore and this past week, after an argument with his brother, patient said he felt like no longer being alive. Patient reports he ran out of Lexapro about a month ago since it was not refilled. Patient endorses auditory hallucinations. He only takes zyprexa 5mg once a day (not BID) and says it helps make voices quitier but the remain and it bugs him; discussed options and reviewed risks/side effects of antipsychotics and patient agrees to try risperidone. Patient denies any history of manic type episodes or behaviors; denies any alcohol or drug use. Formulation/clinical reasoning: Patient either has MDD with psychotic features or schizoaffective disorder; will try to further rule out. Patient has presented to the hospital several times this past year for depression. He says that for the past year he uses plastic utensils in order to be safe. He agrees to trying a different antipsychotic for auditory hallucinations and risperidone will be started. Will also consider Wellbutrin to help with depression. Hospital course: 03/03 Patient remains depressed. Also remains with AH but says it is a little better since Risperdal started. Agrees to titrate Risperdal to use Zyprexa as a p.r.n. Discussed history in much more detail at patient reports he has had AH and VH since he was young but never told anyone because he did not want people to think he was crazy. Says the AH is mostly just in the background but becomes more intense when he is depressed or upset; currently it will say the word bridge or knife which he interprets says voices wanting him to harm himself. Regarding VH patient will sometimes see the outline or shadow of a person that he finds distracting and can happen at any time. -patient has a hard time swallowing pills, particularly capsules which he opens up at home to take; not able to do that on inpatient unit, so he is looking for alternatives -patient is on omeprazole and has a sort line; technical document writer considered switching to famotidine (which literature suggests is generally preferred in CKD since it has less risk of accumulation and nephrotoxicity) since on the unit he is not able to take his omeprazole (as he is not allowed to poor out the capsule). Outbound Sales Professional will switch to famotidine just for this admission and then patient can resume omeprazole on discharge and continue working with outpatient provider 03/04: continue tx plan. 03/06 voices are better but remains depressed; discussed about increasing Wellbutrin but wants to leave it at 01:50 for now -discussed burning sensation on top of his feet; says it started about a week ago is intermittent but every day on the tops of his feet 03/07 depression remains in agrees to increasing Wellbutrin 03/08 Patient remains depressed; AH remains minimal. Discussed possible etiologies for burning sensation on dorsum of feet and he agrees to lab work to rule out B12 deficiency 03/09 Patient reports that his mood is actually better today and that he is feeling pretty good voices remain muffled and not bothersome; discussed that B12 was WNL and that pain on the dorsum of his feet is likely from diabetic neuropathy. Discussed treatment options and patient wants to hold off on starting gabapentin for now after reviewing risks/side effects; technical document writer also discussed risks of not starting medication 03/10 Patient overall remains feeling better, mood better and AH lower still. Patient was triggered by a peer who was being aggressive on the unit but patient was able to reach out for help and peer was redirected. Discussed again neuropathy and patient remains ambivalent about starting gabapentin; will continue thinking about it. 03/11 Patient reports he remains doing overall well, depression mostly gone, much better mood, and AH minimal and not bothersome. Again discussed diabetic neuropathy and patient said he will wait to talk to his PCP regarding whether or not do start gabapentin or other treatment. Plan: Q 15 minutes CV Wellbutrin XL 300 mg daily Risperdal 1 mg daily Risperdal 2 mg q.h.s. Omeprazole held and famotidine stopped since patient has CKD Continue home medication Patient educated on: diagnosis, medication risk/benefits and medical condition Informed Consent: understands Reason for continued inpatient stay Substantial Risk for: stable for discharge Time Spent With Patient Time: Total time managing care of this patient today ____ minutes.
[2025-03-11 12:00] LABS: Glucose, Whole Blood 184 mg/dL (60-115)
[2025-03-11 12:26] VITALS: BP 137/63
[2025-03-11 17:12] LABS: Glucose, Whole Blood 185 mg/dL (60-115)
[2025-03-11] MEDS: Magnesium Hydrox/Alum Hydrox 30 ML ORAL.SUSP PO (17:50)
[2025-03-11 17:59] VITALS: BP 169/79
[2025-03-11 20:09] VITALS: BP 126/71; PULSE 87; RESP 18; TEMP 37.4; O2SAT 93
[2025-03-11 21:21] LABS: Glucose, Whole Blood 297 mg/dL (60-115)
[2025-03-12 07:58] LABS: Glucose, Whole Blood 179 mg/dL (60-115)
[2025-03-12 08:00] VITALS: BP 132/86; PULSE 78; RESP 18; TEMP 36.3; O2SAT 93
[2025-03-12] MEDS: Insulin Glargine,Hum.rec.anlog 100 UNIT/ML 10 ML VIAL 15 UNIT SUBCUT (08:44)
[2025-03-12] MEDS: Albuterol Sulfate 90 MCG 8 GM INHALER 2 PUFF INHALE ×2 (08:44→16:28)
[2025-03-12] MEDS: buPROPion HCl XL 300 MG TAB.ER.24H PO (08:45)
[2025-03-12 08:46] VITALS: BP 132/86
[2025-03-12] MEDS: Ferrous Sulfate 324 MG TABLET.DR PO (08:46)
[2025-03-12 12:31] LABS: Glucose, Whole Blood 224 mg/dL (60-115)
[2025-03-12] MEDS: Magnesium Hydrox/Alum Hydrox 30 ML ORAL.SUSP PO (16:28)
[2025-03-12 17:06] LABS: Glucose, Whole Blood 209 mg/dL (60-115)
[2025-03-12 20:00] VITALS: BP 143/70; PULSE 80; RESP 15; TEMP 37.9; O2SAT 94
[2025-03-12 21:22] LABS: Glucose, Whole Blood 227 mg/dL (60-115)
--- NOTE | 2025-03-12 23:12 | P.PNPSI_ITS ---
Subjective Subjective Date of Service: 03/12/25 Reason For Visit: Depression, si Interim History: Met with patient; discussed with team Patient reports that today's having a hard day because of the milieu acuity; he is taking extra PRNs. He said he is holding it together but it has been difficult. Stockroom Coordinator encouraged patient to continue practicing coping skills which he is. mse: Pt is alert and oriented; behavior is cooperative, friendly and calm; patient is not in distress; dressed in casual/hospital attire, unkempt; mood is angry and affect congruent, anxious; eye contact appropriate; Speech is normal rate, volume and prosody and not pressured; no psychomotor agitation/retardation present; thought process is organized and goal directed; Thought content is on tx; otherwise pertinent to relevant topics and without any delusional content, paranoid ideations or grandiosity; denies any SI/HI. Minimal AH which is not bothersome. Patients insight and judgment appear intact. Diagnostics Vital Signs (24Hr): Vital Signs - 24 hr 03/12/25 08:00 03/12/25 08:46 03/12/25 20:00 Temperature 97.4 F 100.2 F Pulse Rate 78 80 Respiratory Rate 18 15 Blood Pressure 132/86 132/86 143/70 H Pulse Oximetry 93 94 Oxygen Delivery Method Room Air BMI result Body Mass Index 38.4 Labs 02/28/25 16:11 03/07/25 07:43 Labs: Laboratory Results - last 48 hr 03/11/25 03/11/25 03/11/25 08:09 11:57 17:07 POC Glucose 176 H 184 H 185 H 03/11/25 03/12/25 03/12/25 21:17 07:54 12:27 POC Glucose 297 H 179 H 224 H 03/12/25 03/12/25 17:01 21:11 POC Glucose 209 H 227 H Medications Medications Current Medications Acetaminophen (Acetaminophen 325 Mg Tablet) 650 mg PO Q6H PRN PRN Reason: Headache/Pain, Scale 1-10 Last Admin: 03/05/25 17:08 Dose: 650 mg Al Hydroxide/Mg Hydroxide (Magnesium Hydrox/Alum Hydrox 30 Ml Oral.Susp) 30 ml PO Q6H PRN PRN Reason: Heartburn/Nausea Last Admin: 03/12/25 16:28 Dose: 30 ml Albuterol Sulfate (Albuterol Sulfate 90 Mcg 8 Gm Inhaler) 2 puff INHALE RQ6H WHILE AWAKE PRN PRN Reason: Wheezing Last Admin: 03/12/25 16:28 Dose: 2 puff Atorvastatin Calcium (Atorvastatin Calcium 40 Mg Tablet) 40 mg PO DAILY [facility], [facility] Last Admin: 03/12/25 08:46 Dose: 40 mg Bupropion HCl (Bupropion Hcl Xl 300 Mg Tab.Er.24h) 300 mg PO DAILY [facility] Last Admin: 03/12/25 08:45 Dose: 300 mg Clonidine HCl (Clonidine Hcl 0.1 Mg Tablet) 0.1 mg PO Q4H PRN; Protocol PRN Reason: moderate anxiety Last Admin: 03/11/25 17:59 Dose: 0.1 mg Empagliflozin (Empagliflozin 10 Mg Tablet) 10 mg PO DAILY [facility] Last Admin: 03/12/25 08:46 Dose: 10 mg Escitalopram Oxalate (Escitalopram Oxalate 20 Mg Tablet) 20 mg PO DAILY [facility] Last Admin: 03/12/25 08:45 Dose: 20 mg Famotidine (Famotidine 20 Mg Tablet) 10 mg PO BID [facility] Last Admin: 03/12/25 20:51 Dose: 10 mg Ferrous Sulfate (Ferrous Sulfate 324 Mg Tablet.Dr) 324 mg PO DAILY [facility] Last Admin: 03/12/25 08:46 Dose: 324 mg Hydroxyzine HCl (Hydroxyzine Hcl 25 Mg Tablet) 25 mg PO Q6H PRN PRN Reason: mild anxiety Last Admin: 03/12/25 10:57 Dose: 25 mg Insulin Glargine (Insulin Glargine,Hum.Rec.Anlog 100 Unit/Ml 10 Ml Vial) 15 unit SUBCUT DAILY [facility] Last Admin: 03/12/25 08:44 Dose: 15 unit Insulin Human Lispro (Insulin Lispro 100 Unit/Ml 3 Ml Vial) 0 unit SUBCUT TIDAC [facility]; Protocol Last Admin: 03/12/25 18:09 Dose: 4 unit Lidocaine (Lidocaine 4 % Patch Adh..Patch) 1 patch TRANSDERMA DAILY PRN; Protocol PRN Reason: lower back pain Losartan Potassium (Losartan Potassium 25 Mg Tablet) 25 mg PO DAILY [facility]; Protocol Last Admin: 03/12/25 08:46 Dose: 25 mg Magnesium Hydroxide (Milk Of Magnesia 30 Ml Oral.Susp) 30 ml PO DAILY PRN PRN Reason: Constipation Metformin HCl (Metformin Hcl 500 Mg Tablet) 500 mg PO BID [facility] Last Admin: 03/12/25 20:51 Dose: 500 mg Multi-Ingred Cream/Lotion/Oil/Oint (Mineral Oil/Petrolatum,White 106 Gm Tube) 1 appl TOPICAL BID [facility], [facility]; Protocol Last Admin: 03/12/25 21:00 Dose: Not Given Nicotine Polacrilex (Nicotine Polacrilex 2 Mg Gum) 4 mg BUCCAL Q2H PRN PRN Reason: Nicotine Cravings Olanzapine (Olanzapine 5 Mg Tablet) 5 mg PO BID PRN PRN Reason: Auditory Hallucinations Last Admin: 03/12/25 21:26 Dose: 5 mg Omeprazole (Omeprazole 40 Mg Capsule.Dr) 40 mg PO DAILY@0630 [facility]1983 On Hold: 03/03/25 16:52 Last Admin: 03/03/25 08:41 Dose: 40 mg Ondansetron HCl (Ondansetron Odt 4 Mg Tab.Rapdis) 4 mg TRANSLINGU Q8H PRN PRN Reason: Nausea and Vomiting Risperidone (Risperidone 1 Mg Tablet) 1 mg PO DAILY [facility] Last Admin: 03/12/25 08:46 Dose: 1 mg Risperidone (Risperidone 2 Mg Tablet) 2 mg PO BEDTIME [facility] Last Admin: 03/12/25 20:51 Dose: 2 mg Tamsulosin HCl (Tamsulosin Hcl 0.4 Mg Capsule) 0.4 mg PO BEDTIME [facility] Last Admin: 03/12/25 20:51 Dose: 0.4 mg Thiamine HCl (Thiamine Hcl 100 Mg Tablet) 100 mg PO BID [facility] Last Admin: 03/12/25 20:51 Dose: 100 mg Trazodone HCl (Trazodone Hcl 50 Mg Tablet) 50 mg PO BEDTIME MRX1 PRN PRN Reason: Insomnia Vitamin D (Cholecalciferol (Vitamin D3) 25 Mcg Tablet) 50 mcg PO DAILY [facility] Last Admin: 03/12/25 08:45 Dose: 50 mcg Allergies Allergies Allergy/AdvReac Type Severity Reaction Status Date / Time pollen extracts (POLLEN) Allergy Mild RUNNY NOSE Verified 02/28/25 15:29 cat dander (CATS) Allergy Unknown UNKNOWN Verified 02/28/25 15:29 dog dander (DOGS) Allergy Unknown UNKNOWN Verified 02/28/25 15:29 mold (MOLD) Allergy Unknown UNKNOWN Verified 02/28/25 15:29 Assessment & Plan Assessment & Plan (1) MDD (major depressive disorder), recurrent, severe, with psychosis: Status: Acute Code(s): F33.3 - Major depressive disorder, recurrent, severe with psychotic symptoms (2) Hyperlipidemia: Qualifiers: Hyperlipidemia type: unspecified Qualified Code(s): E78.5 - Hyperlipidemia, unspecified Status: Acute Code(s): E78.5 - Hyperlipidemia, unspecified (3) Diabetes mellitus: Qualifiers: Diabetes mellitus complication status: with hyperglycemia Diabetes mellitus care home insulin use: without care home use Diabetes mellitus type: t ype 2 Qualified Code(s): E11.65 - Type 2 diabetes mellitus with hyperglycemia Status: Acute Code(s): E11.9 - Type 2 diabetes mellitus without complications (4) Vitamin D deficiency: Status: Acute Code(s): E55.9 - Vitamin D deficiency, unspecified (5) Chronic kidney disease, stage III (moderate): Qualifiers: Chronic kidney disease stage 3 subtype: stage 3a (GFR 45-59) Qualified Code(s): N18.31 - Chronic kidney disease, stage 3a Status: Acute Code(s): N18.30 - Chronic kidney disease, stage 3 unspecified (6) COPD (chronic obstructive pulmonary disease): Qualifiers: COPD type: unspecified COPD Qualified Code(s): J44.9 - Chronic obstructive pulmonary disease, unspecified Status: Acute Code(s): J44.9 - Chronic obstructive pulmonary disease, unspecified (7) Asthma: Qualifiers: Asthma complication type: unspecified Asthma persistence: unspecified Asthma severity: unspecified severity Qualified Code(s): J45.909 - Unspecified asthma, uncomplicated Status: Acute Code(s): J45.909 - Unspecified asthma, uncomplicated Plan HPI: Patient is a 54-year-old male with history of MDD with psychosis (rule out schizoaffective disorder depressed type), HTN, CKD, Asthma, COPD, HLD, DM presents for worsening depression in the face of psychosocial stressors. Patient reports that over the past month, since his last admission this past January, his depression has worsened since it has been stress with the house. Although he and his brother both own the house, his brother has been nagging him to move out and find another place to live. Patient reports increased depression and hopelessness, saying he feels nothing goes his way, I can not handle it anymore and this past week, after an argument with his brother, patient said he felt like no longer being alive. Patient reports he ran out of Lexapro about a month ago since it was not refilled. Patient endorses auditory hallucinations. He only takes zyprexa 5mg once a day (not BID) and says it helps make voices quitier but the remain and it bugs him; discussed options and reviewed risks/side effects of antipsychotics and patient agrees to try risperidone. Patient denies any history of manic type episodes or behaviors; denies any alcohol or drug use. Formulation/clinical reasoning: Patient either has MDD with psychotic features or schizoaffective disorder; will try to further rule out. Patient has presented to the hospital several times this past year for depression. He says that for the past year he uses plastic utensils in order to be safe. He agrees to trying a different antipsychotic for auditory hallucinations and risperidone will be started. Will also consider Wellbutrin to help with depression. Hospital course: 03/03 Patient remains depressed. Also remains with AH but says it is a little better since Risperdal started. Agrees to titrate Risperdal to use Zyprexa as a p.r.n. Discussed history in much more detail at patient reports he has had AH and VH since he was young but never told anyone because he did not want people to think he was crazy. Says the AH is mostly just in the background but becomes more intense when he is depressed or upset; currently it will say the word bridge or knife which he interprets says voices wanting him to harm himself. Regarding VH patient will sometimes see the outline or shadow of a person that he finds distracting and can happen at any time. 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 Stockroom Coordinator will switch to famotidine just for this admission and then patient can resume omeprazole on discharge and continue working with outpatient provider 03/04: continue tx plan. 03/06 voices are better but remains depressed; discussed about increasing Wellbutrin but wants to leave it at 01:50 for now -discussed burning sensation on top of his feet; says it started about a week ago is intermittent but every day on the tops of his feet 03/07 depression remains in agrees to increasing Wellbutrin 03/08 Patient remains depressed; AH remains minimal. Discussed possible etiologies for burning sensation on dorsum of feet and he agrees to lab work to rule out B12 deficiency 03/09 Patient reports that his mood is actually better today and that he is feeling pretty good voices remain muffled and not bothersome; discussed that B12 was WNL and that pain on the dorsum of his feet is likely from diabetic neuropathy. Discussed treatment options and patient wants to hold off on starting gabapentin for now after reviewing risks/side effects; data analyst report writer also discussed risks of not starting medication 03/10 Patient overall remains feeling better, mood better and AH lower still. Patient was triggered by a peer who was being aggressive on the unit but patient was able to reach out for help and peer was redirected. Discussed again neuropathy and patient remains ambivalent about starting gabapentin; will continue thinking about it. 03/11 Patient reports he remains doing overall well, depression mostly gone, much better mood, and AH minimal and not bothersome. Again discussed diabetic neuropathy and patient said he will wait to talk to his PCP regarding whether or not do start gabapentin or other treatment. 03/12 patient struggling a little with high acuity on the unit but is coping; remained stable and symptoms remain resolved. Discussed discharge and patient is at or above baseline. He is not in imminent risk for harm to self or others and is appropriate to return to the community for treatment Plan: Q 15 minutes CV Wellbutrin XL 300 mg daily Risperdal 1 mg daily Risperdal 2 mg q.h.s. Omeprazole held and famotidine stopped since patient has CKD Continue home medication Patient educated on: diagnosis, medication risk/benefits and therapeutic strategies Informed Consent: understands Reason for continued inpatient stay Substantial Risk for: stable for discharge Time Spent With Patient Time: Total time managing care of this patient today ____ minutes.
[2025-03-13] MEDS: Albuterol Sulfate 90 MCG 8 GM INHALER 2 PUFF INHALE ×2 (01:04→09:24)
[2025-03-13] MEDS: Magnesium Hydrox/Alum Hydrox 30 ML ORAL.SUSP PO ×2 (01:05→09:25)
[2025-03-13 08:05] VITALS: BP 174/82; PULSE 78; TEMP 36.9; O2SAT 97
[2025-03-13 08:05] LABS: Glucose, Whole Blood 206 mg/dL (60-115)
[2025-03-13] MEDS: Ferrous Sulfate 324 MG TABLET.DR PO (08:37)
[2025-03-13] MEDS: buPROPion HCl XL 300 MG TAB.ER.24H PO (08:37)
[2025-03-13] MEDS: Insulin Glargine,Hum.rec.anlog 100 UNIT/ML 10 ML VIAL 15 UNIT SUBCUT (08:40)
[2025-03-13] MEDS: Mineral Oil/Petrolatum,White 106 GM Tube 1 APPL TOPICAL (09:24)
--- NOTE | 2025-03-13 11:13 | P.DS_ITS ---
DS: Providers Provider Date of Service: 03/13/25 Date of admission: 03/01/25 12:18 Date of discharge: 03/13/25 Primary care physician: Bon Arvizu MD Attending physician on admission: Devin Macario Consults: 03/02/25 13:06 Consult to Wound Care Routine Consulting Provider: [facility] Wound Care Management Reason for consultation: Chronic wound left chest Attending physician on discharge: Devin Macario DS: Diagnosis Discharge Diagnosis (1) MDD (major depressive disorder), recurrent, severe, with psychosis: Status: Acute (2) Hyperlipidemia: Status: Acute (3) Diabetes mellitus: Status: Acute (4) Vitamin D deficiency: Status: Acute (5) Chronic kidney disease, stage III (moderate): Status: Acute (6) COPD (chronic obstructive pulmonary disease): Status: Acute (7) Asthma: Status: Acute DS: Medications Discharge Medications Home Medications: Previous Rx's ?Medication ?Instructions ?Recorded ondansetron HCl 4 mg tablet 4 mg PO Q8H PRN nausea and 01/06/25 vomiting #12 tabs albuterol sulfate 90 mcg/actuation 2 puff inhalation Q 4-6H PRN for 01/18/25 aerosol inhaler (Ventolin HFA) wheezing #18 ea atorvastatin 40 mg tablet 40 mg PO DAILY #30 tabs 01/09 11/02 cholecalciferol (vitamin D3) 50 50 mcg PO DAILY #30 ca ps 01/24/25 mcg (2,000 unit) capsule ferrous sulfate 325 mg (65 mg 325 mg PO DAILY #30 tabs 01/24/25 iron) tablet insulin glargine 100 unit/mL (3 15 unit (0.15 mL) subc ut DAILY #15 01/24/25 mL) subcutaneous pen (Lantus mL Solostar U-100 Insulin) losartan 25 mg tablet 25 mg PO DAILY #30 tabs 01/09 11/02 tamsulosin 0.4 mg capsule 0.4 mg PO BEDTIME #30 caps 0 01/24/25 thiamine HCl (vitamin B1) 100 mg 100 mg PO BID #60 tab s 01/24/25 tablet bupropion HCl 300 mg 24 hr tablet, 300 mg PO DAILY 30 days #30 tabs 03/13/25 extended release clonidine HCl 0.1 mg tablet 0.1 mg PO Q4H PRN moderate anxiety 03/13/25 30 days #90 tabs empagliflozin 10 mg tablet 10 mg PO DAILY 30 days #30 tabs 03/13/25 (Jardiance) escitalopram oxalate 20 mg tablet 20 mg PO DAILY 30 da ys #30 tabs 03/13/25 famotidine 20 mg tablet 20 mg PO BID 30 days #60 tab s 03/13/25 hydroxyzine HCl 25 mg tablet 25 mg PO TID PRN anxiety 30 days 03/13/25 #60 tabs metformin 500 mg tablet 500 mg PO BIDWMEAL 30 days # 60 tabs 03/13/25 olanzapine 5 mg tablet 5 mg PO DAILY PRN agitation 30 03/13/25 days #15 tabs risperidone 3 mg tablet 3 mg PO BEDTIME 30 days #30 tabs 03/13/25 Mental Status Exam Mental Status Exam Narrative: Pt is alert and oriented; behavior is cooperative, friendly and calm; patient is not in distress; dressed in casual attire, remaining scruffy but with adequate hygiene; mood is described as good and affect congruent; eye contact appropriate; Speech is normal rate, volume and prosody and not pressured; no psychomotor agitation/retardation present; thought process is organized and goal directed; Thought content is on tx; otherwise pertinent to relevant topics and without any delusional content, paranoid ideations or grandiosity; denies any SI/HI. Minimal AH and not bothersome. Patients insight and judgment appear intact. Data Data Completed and Pending Completed studies during hospitalization [Text1]: 03/06/25 03/07/25 03/07/25 20:54 07:43 07:53 Creatinine 1.73 H Estim Creat Clear Calc 60.0 Estimated GFR 41 POC Glucose 215 H 164 H Vitamin B12 Folate 03/07/25 03/07/25 03/07/25 12:08 16:58 20:44 Creatinine Estim Creat Clear Calc Estimated GFR POC Glucose 293 H 211 H 206 H Vitamin B12 Folate 03/08/25 03/08/25 03/08/25 08:06 12:04 12:37 Creatinine Estim Creat Clear Calc Estimated GFR POC Glucose 173 H 200 H Vitamin B12 250 Folate 5.1 03/08/25 03/08/25 03/09/25 17:02 20:37 07:53 Creatinine Estim Creat Clear Calc Estimated GFR POC Glucose 228 H 225 H 177 H Vitamin B12 Folate 10/03/09/25 03/09/25 11:52 17:06 21:51 Creatinine Estim Creat Clear Calc Estimated GFR POC Glucose 276 H 231 H 246 H Vitamin B12 Folate 03/10/25 03/10/25 03/10/25 07:56 11:31 16:57 Creatinine Estim Creat Clear Calc Estimated GFR POC Glucose 172 H 248 H 227 H Vitamin B12 Folate 03/10/25 03/11/25 03/11/25 21:26 08:09 11:57 Creatinine Estim Creat Clear Calc Estimated GFR POC Glucose 174 H 176 H 184 H Vitamin B12 Folate 03/11/25 03/11/25 03/12/25 17:07 21:17 07:54 Creatinine Estim Creat Clear Calc Estimated GFR POC Glucose 185 H 297 H 179 H Vitamin B12 Folate 03/12/25 03/12/25 03/12/25 12:27 17:01 21:11 Creatinine Estim Creat Clear Calc Estimated GFR POC Glucose 224 H 209 H 227 H Vitamin B12 Folate 03/13/25 07:55 Creatinine Estim Creat Clear Calc Estimated GFR POC Glucose 206 H Vitamin B12 Folate DS: Summary Hospital Course Hospital Course: HPI: Patient is a 54-year-old male with history of MDD with psychosis (rule out schizoaffective disorder depressed type), HTN, CKD, Asthma, COPD, HLD, DM presents for worsening depression in the face of psychosocial stressors. Patient reports that over the past month, since his last admission this past January, his depression has worsened since it has been stress with the house. Although he and his brother both own the house, his brother has been nagging him to move out and find another place to live. Patient reports increased depression and hopelessness, saying he feels nothing goes his way, I can not handle it anymore and this past week, after an argument with his brother, patient said he felt like no longer being alive. Patient reports he ran out of Lexapro about a month ago since it was not refilled. Patient endorses auditory hallucinations. He only takes zyprexa 5mg once a day (not BID) and says it helps make voices quitier but the remain and it bugs him; discussed options and reviewed risks/side effects of antipsychotics and patient agrees to try risperidone. Patient denies any history of manic type episodes or behaviors; denies any alcohol or drug use. Formulation/clinical reasoning: Patient has schizoaffective disorder as he has intermittent AH even independent of mood that is exacerbated and worsened when he is depressed or upset. Patient has presented to the hospital several times this past year for depression. He says that for the past year he uses plastic utensils in order to be safe. He agrees to trying a different antipsychotic for auditory hallucinations and risperidone will be started. Will also consider Wellbutrin to help with depression. Hospital course: On admission, patient was depressed with some lingering SI which eventually fully resolved. AVH remained present. Patient shared that he has had AH and VH since he was young but never told anyone because he did not want people to think he was crazy. Says the AH is mostly just in the background but becomes more intense when he is depressed or upset; currently it will say the word bridge or knife which he interprets says voices wanting him to harm himself. Regarding VH patient will sometimes see the outline or shadow of a person that he finds distracting and can happen at any time. He agreed to try risperidone instead of Zyprexa which soon significantly reduced AH until it was minimal and not bothersome at all; VH resovled. Patient's mood improved some but depression remained. He was continued on Lexapro 20 mg but started on Wellbutrin which was titrated to 300 mg. With this, depression fully resolved and patient reported being in a good mood. Patient remained stable throughout the rest of his admission, in good behavioral and impulse control and appropriate with peers and staff. He attended groups. Family meeting had with his brother who said he can return. Social work also set up much more extensive aftercare options to help patient with stability in the community, including options for daytime activities and [facility] application. During admission, Patient reported new develop it of what seemed to be neuropathic pain secondary to diabetes which started about few days before this admission on the dorsum of bilateral feet; B12 level WNL. Visual Effects Editor discussed this with patient including potential treatments however patient did not want to starting new medication but instead wanted to discuss this further with his outpatient provider. Also discussed with patient patient was switching to famot idine for GERD and holding omeprazole (since literature suggests famotidine is prefer over omeprazolein CKD with less risk of accumulation and nephrotoxicity); also patient could not take omeprazole in the unit since he has trouble swallowing pills and wanted to break it up. Initially considered switching back to omeprazole on discharge however famotidine seemed to adequately treat GERD so he remained on this medication and will talk with his outpatient provider regarding. Patient remained doing well, above previous baselines with depression resolved and AH minimal and not bothersome. Patient was eating and sleeping well. He remained in good behavioral and impulse control and appropriate with peers and staff. It is likely that patient will continue to intermittently struggle in the outpatient community however he is doing better on previous discharges and has more outpatient support established. Patient was not in imminent risk for harm to self or others and appropriate to return to the community for treatment. Medication: Started Wellbutrin XL 300 mg daily Started Risperdal 3 mg q.h.s. Started clonidine p.r.n. for anxiety Continued Zyprexa but made it 5 mg, once daily only as a p.r.n. for agitation Started on famotidine 20 mg b.i.d. and discontinued omeprazole; patient will discuss with outpatient provider Time spent discussing smoking cessation with patient: 3 to 10 minutes Status at Discharge Functional status at discharge: independent ambulation Overall status at discharge: patient is back to baseline Time Spent with Patient Time attestation: Total time managing care of this patient today _45___ minutes. Time spent: Greater than 30 minutes Specific discharge activities: Met with patient; discussed with team; charting; prescriptions Discharge Plan Discharge Anticipated Discharge Date/Time: 03/13/25 11:12 Patient Disposition: Home, Self-Care Discharge Diagnosis: Schizoaffective disorder, depressed type Referrals: [facility] Therapy w Johnathan Barry [Other] - 03/14/25 1:00 pm [facility] Psychiatry w Morleykathia Tate [Other] - 03/23/25 1:40 pm Referral Note: [facility] [Other] - 03/15/25 10:30 am Referral Note: A referral has been placed on your behalf. You will need to go in to fill out some paperwork in order to complete the referral. You are set up to go to [facility] for a tour and to complete the paperwork. [facility] operate with a belief in the power of ?recovery through work.? Members benefit from: Vibrant work-ordered days where members and staff collaborate in the operation of the clubhouse An employment program that offers three tiers of job placement and support A social component that helps connect members with each other and create larger community connections and meaningful relationships Department of Mental [facility] [Other] - 1 Week Referral Note: A referral has been placed on your behalf. Please be on the look out for a call from them so they can set up an in-person with you. Bon Arvizu MD [Primary Care Provider, Internal Medicine] - 1 Week Discharge Medications: New clonidine HCl 0.1 mg Tablet 0.1 mg PO Q4H PRN (Reason: moderate anxiety) 30 Days Qty: 90 0RF Protocol: Hold for SBP< HOLD for SBP < : 90 bupropion HCl 300 mg Tablet Extended Release 24 Hr 300 mg PO DAILY 30 Days Qty: 30 0RF risperidone 3 mg tablet 3 mg PO BEDTIME 30 Days Qty: 30 0RF famotidine 20 mg Tablet 20 mg PO BID 30 Days Qty: 60 0RF Jardiance 10 mg Tablet 10 mg PO DAILY 30 Days Qty: 30 0RF Continued albuterol sulfate [Ventolin HFA] 90 mcg/actuation HFA aerosol inhaler 2 puff inhalation Q4-6H PRN (Reason: for wheezing) Qty: 18 1RF hydroxyzine HCl 25 mg tablet 25 mg PO TID PRN (Reason: anxiety) 30 Days Qty: 60 1RF escitalopram oxalate 20 mg tablet 20 mg PO DAILY 30 Days Qty: 30 0RF ondansetron HCl 4 mg tablet 4 mg PO Q8H PRN (Reason: nausea and vomiting) Qty: 12 0RF atorvastatin 40 mg tablet 40 mg PO DAILY Qty: 30 0RF thiamine HCl (vitamin B1) 100 mg tablet 100 mg PO BID Qty: 60 0RF tamsulosin 0.4 mg capsule 0.4 mg PO BEDTIME Qty: 30 0RF ferrous sulfate 325 mg (65 mg iron) tablet 325 mg PO DAILY Qty: 30 0RF losartan 25 mg tablet 25 mg PO DAILY Qty: 30 0RF insulin glargine [Lantus Solostar U-100 Insulin] 100 unit/mL (3 mL) insulin pen 15 unit subcut DAILY Qty: 15 0RF cholecalciferol (vitamin D3) 50 mcg (2,000 unit) capsule 50 mcg PO DAILY Qty: 30 0RF Changed metformin 500 mg tablet 500 mg PO BIDWMEAL 30 Days Qty: 60 0RF olanzapine 5 mg Tablet 5 mg PO DAILY PRN (Reason: agitation) 30 Days Qty: 15 0RF Discontinued omeprazole 40 mg capsule,delayed release(DR/EC) 40 mg PO DAILY Qty: 30 0RF Discharge Orders: Discharge Order (Routine); Ordered 03/13/25 Ordered By: Devin Macario Diet: Diabetic diet Activity on Discharge: As tolerated Stand Alone Forms: Patient Portal Discharge page, Community Support Print Language: Cymraes Care Plan Goals: Maintain mood and safe behaviors Take medications as prescribed Practice coping skills Continue with outpatient providers and reach out to them as needed Health Concerns: Mood stability and behaviors Diabetes Diabetic Neuropathy (likely) Asthma CKD3 GERD Plan of Treatment: Follow up with your PCP, psychiatric provider and other outpatient providers regarding above concerns Take medications as prescribed Assessment: Risk assessment at time of discharge:? Patient was interviewed prior to discharge and found to be fully oriented and without any SI or HI. Patient has improved insight and judgment and wants to continue treatment. Patient is not in imminent risk of harm to self or others and has a safety plan that includes presenting to the closest ER or calling 911 if feeling unsafe.? Patient has been observed closely by nursing and unit staff throughout admission; patient has not engaged in any behaviors that suggest dangerousness to self or others and has demonstrated appropriate behaviors and impulse control Discharge Date/Time: 03/13/25 11:50
== END 2025-03-13 11:50 | disposition home or self-care (01) | DRG 750 ==
LOC: HO.ED 03-01 12:58 → HO.PM5 03-01 13:38
PROVIDERS: Emergency Medicine; Admitting Provider Clinical Nurse Specialist Psychiatric/Mental Health, Adult; Emergency Provider Emergency Medicine Emergency Medical Services; PCP Internal Medicine; Visit Provider Psychiatry & Neurology Psychiatry
DX: F25.1 Schizoaffective disorder, depressive type (principal); R45.851 Suicidal ideations; E11.22 Type 2 diabetes mellitus with diabetic chronic kidney disease; E11.65 Type 2 diabetes mellitus with hyperglycemia; D50.9 Iron deficiency anemia, unspecified; E55.9 Vitamin D deficiency, unspecified; E78.5 Hyperlipidemia, unspecified; J44.9 Chronic obstructive pulmonary disease, unspecified; F41.1 Generalized anxiety disorder; K21.9 Gastro-esophageal reflux disease without esophagitis; I12.9 Hypertensive chronic kidney disease with stage 1 through stage 4 chronic kidney disease, or unspecified chronic kidney disease; N18.31 Chronic kidney disease, stage 3a; N40.0 Benign prostatic hyperplasia without lower urinary tract symptoms; Z79.4 Long term (current) use of insulin; Z79.84 Long term (current) use of oral hypoglycemic drugs; Z79.899 Other long term (current) drug therapy
CPT/HCPCS: 36415; 80053; 80061; 80307; 81001; 82565; 82607; 82746; 82947; 83036; 83735; 84439; 84443; 85025; 93005; 99285; S9485

== ENCOUNTER → 2025-02-28 21:07 | Outpatient (BNV) | payer OTHER, SELFPAY | PROVIDERS: Emergency Provider Emergency Medicine Emergency Medical Services; PCP Internal Medicine; Visit Provider Internal Medicine Cardiovascular Disease | DX: Z13.6 Encounter for screening for cardiovascular disorders (principal) | CPT/HCPCS: 93010 ==

== ENCOUNTER → 2025-03-01 12:18 | Outpatient (BNV) | payer OTHER, SELFPAY | PROVIDERS: Admitting Provider Clinical Nurse Specialist Psychiatric/Mental Health, Adult; Emergency Provider Emergency Medicine Emergency Medical Services; PCP Internal Medicine; Visit Provider Psychiatry & Neurology Psychiatry | DX: F33.3 Major depressive disorder, recurrent, severe with psychotic symptoms (principal); E78.5 Hyperlipidemia, unspecified; E11.65 Type 2 diabetes mellitus with hyperglycemia; E55.9 Vitamin D deficiency, unspecified; N18.31 Chronic kidney disease, stage 3a; J44.9 Chronic obstructive pulmonary disease, unspecified; J45.909 Unspecified asthma, uncomplicated | CPT/HCPCS: 99231; 99232 ==

== ENCOUNTER → 2025-03-01 12:18 | Outpatient (BNV) | payer OTHER, SELFPAY | PROVIDERS: Admitting Provider Clinical Nurse Specialist Psychiatric/Mental Health, Adult; Emergency Provider Emergency Medicine Emergency Medical Services; PCP Internal Medicine; Visit Provider Nurse Practitioner Family | DX: E11.65 Type 2 diabetes mellitus with hyperglycemia (principal) | CPT/HCPCS: 99221 ==

== ENCOUNTER 2025-03-14 18:10 | Emergency (ER) | payer OTHER, SELFPAY ==
--- NOTE | ~2025-03-14 | XR_ITS ---
CLINICAL HISTORY: dyspnea 2 view chest x-ray Comparison: CR/SR - XR CHEST 2 VIEWS - 01/02/25 11:29 EDT CR - XR CHEST 2V - 11/12/24 16:32 EDT CR - XR CHEST 2V - 09/30/24 17:35 EDT Findings: Left lower lobe consolidation with left lung volume loss most likely represent atelectasis. Diffuse interstitial prominence in both lungs may represent pulmonary edema/ pulmonary vascular congestion. Normal size heart. No acute fracture. IMPRESSION: 1. Left lower lobe consolidation with left lung volume loss most likely represent atelectasis, unchanged compared to multiple prior studies. 2. Diffuse interstitial prominence in both lungs may represent pulmonary edema/ pulmonary vascular congestion. This document has been electronically signed by: Greyson Minor MD on 03/14/2025 19:17:08
[2025-03-14 18:15] VITALS: BP 121/63; PULSE 102; RESP 20; TEMP 36.3; O2SAT 94; BMI 38.9
--- NOTE | 2025-03-14 18:15 | ED_ITS ---
HPI - General Adult General Chief complaint: Dyspnea Stated complaint: difficulty breathing/heart racing Time Seen by Provider: 03/14/25 21:31 Source: patient Limitations: no limitations History of Present Illness ED Provider: Sherin Bennett PA-C HPI narrative: 54 y/o M with hx of depression, prior psychosis, suicidal ideation, anxiety, asthma, COPD, hyperlipidemia, diabetes, hypertension, obesity, chronic kidney disease, who is well known to our emergency department given he is a high utilizer of resources who presents with shortness of breath and palpitations x2 days. Associated cough and wheezing, he states his inhalers have been beneficial. Patient states he is anxious, he took his anxiety medication prior to arrival. He states he met with the his therapist today. Related Data Previous Rx's ?Medication ?Instructions ?Recorded ondansetron HCl 4 mg tablet 4 mg PO Q8H PRN nausea and 01/06/25 vomiting #12 tabs albuterol sulfate 90 mcg/actuation 2 puff inhalation Q 4-6H PRN for 01/18/25 aerosol inhaler (Ventolin HFA) wheezing #18 ea atorvastatin 40 mg tablet 40 mg PO DAILY #30 tabs 01/09 11/02 cholecalciferol (vitamin D3) 50 50 mcg PO DAILY #30 ca ps 01/24/25 mcg (2,000 unit) capsule ferrous sulfate 325 mg (65 mg 325 mg PO DAILY #30 tabs 01/24/25 iron) tablet insulin glargine 100 unit/mL (3 15 unit (0.15 mL) subc ut DAILY #15 01/24/25 mL) subcutaneous pen (Lantus mL Solostar U-100 Insulin) losartan 25 mg tablet 25 mg PO DAILY #30 tabs 01/09 11/02 tamsulosin 0.4 mg capsule 0.4 mg PO BEDTIME #30 caps 0 01/24/25 thiamine HCl (vitamin B1) 100 mg 100 mg PO BID #60 tab s 01/24/25 tablet bupropion HCl 300 mg 24 hr tablet, 300 mg PO DAILY 30 days #30 tabs 03/13/25 extended release clonidine HCl 0.1 mg tablet 0.1 mg PO Q4H PRN moderate anxiety 03/13/25 30 days #90 tabs empagliflozin 10 mg tablet 10 mg PO DAILY 30 days #30 tabs 03/13/25 (Jardiance) escitalopram oxalate 20 mg tablet 20 mg PO DAILY 30 da ys #30 tabs 03/13/25 famotidine 20 mg tablet 20 mg PO BID 30 days #60 tab s 03/13/25 hydroxyzine HCl 25 mg tablet 25 mg PO TID PRN anxiety 30 days 03/13/25 #60 tabs metformin 500 mg tablet 500 mg PO BIDWMEAL 30 days # 60 tabs 03/13/25 olanzapine 5 mg tablet 5 mg PO DAILY PRN agitation 30 03/13/25 days #15 tabs risperidone 3 mg tablet 3 mg PO BEDTIME 30 days #30 tabs 03/13/25 Allergies Allergy/AdvReac Type Severity Reaction Status Date / Time pollen extracts (POLLEN) Allergy Mild RUNNY NOSE Verified 03/14/25 18:18 cat dander (CATS) Allergy Unknown UNKNOWN Verified 03/14/25 18:18 dog dander (DOGS) Allergy Unknown UNKNOWN Verified 03/14/25 18:18 mold (MOLD) Allergy Unknown UNKNOWN Verified 03/14/25 18:18 Review of Systems 2 Review of Systems: Yes all other systems are reviewed and are negative Constitutional: Constitutional: Denies fatigue and Denies fever(s) Cardiovascular: Cardiovascular: Denies chest pain, Reports palpitations and Reports dyspnea Respiratory: Respiratory: Reports dyspnea and Reports wheezing Gastrointestinal: Gastrointestinal: Denies abdominal pain, Denies nausea and Denies vomiting Endocrine: Endocrine: Denies fatigue and Reports palpitations Allergic/Immunologic: Allergic/Immunologic: Reports wheezing PMFSH Past Medical History Attestation statement: The following information was validated with the patient. Medical History (Updated 03/14/25 @ 22:54 by MAGO Viveros) MDD (major depressive disorder), recurrent, severe, with psychosis Suicidal ideation Situational crisis Suicidal ideation Psychosis Chest pain Allergic rhinitis Insomnia Palpitations Vitamin D deficiency Chronic kidney disease, stage III (moderate) GERD without esophagitis Restrictive lung disease Obesity (BMI 30-39.9) Benign essential hypertension Pure hypercholesterolemia Diabetes mellitus Pulmonary emboli Chondrosarcoma Hyperlipidemia Chronic restrictive lung disease COPD (chronic obstructive pulmonary disease) Asthma Surgical History History of esophagogastroduodenoscopy (EGD) H/O colonoscopy History of inguinal hernia repair Hx of exploratory thoracotomy H/O tooth extraction Family History Family History Father Hypertension Kidney failure, acute Mother Lung cancer Family/Other Diabetes Social History Social History Household Members: Other Household Members Other:: Brother Housing: House Do you presently have visiting nurse or other home services: No Alcohol intake: former Patient Tobacco Use Status: Never used Tobacco Smoked in Last 30 Days: No e-Cigarette/Vaping Use: Never Used Second Hand Smoke Exposure: No Use of substances other than those prescribed or required for medical reasons: No Advance Directives: Yes Advance Directives on File: Yes Advance Directives Date on File: 10/25/15 Do you have a plan to hurt others: No Plan service: No Current occupational status: unemployed Sexual orientation: Straight/Heterosexual Cognitive needs: No Hearing needs: No Vision needs: Yes (Glasses) Physical Exam ED Vital Signs: Vital Signs - 24 hr 03/14/25 18:15 03/14/25 21:36 03/14/25 22:00 Temperature 97.3 F 97.7 F 97.7 F Pulse Rate 102 H 83 83 Respiratory Rate 20 15 15 Blood Pressure 121/63 116/71 116/71 Pulse Oximetry 94 94 94 Oxygen Delivery Method Room Air Room Air Room Air 03/14/25 23:13 Temperature 97.7 F Pulse Rate 83 Respiratory Rate 15 Blood Pressure 116/71 Pulse Oximetry 94 Oxygen Delivery Method Room Air BMI result Body Mass Index 38.9 Const Other: Alert, appears older than stated age Orientation/consciousness: patient oriented x3 Resp Other: Nonlabored respirations, lungs clear to auscultation no wheezing no active cough Cardio Other: Normal peripheral perfusion Skin Other: Warm dry no rash Neuro General: patient oriented x3, gait normal, no focal motor deficits and CN's II- XI intact bilaterally Psych Other: Cooperative Course Course Course Narrative: This is a rapid medical exam performed by Isaac Aldrich NP: Additional HPI, ROS, PE not included below will be deferred to primary provider. Patient is a 54y/o M with pmhx DM, HTN, COPD, CKD 3, asthma presenting with 2 days of dyspnea and palpitaitons. Mild cough. Plan: labs, CXR, viral swabs, ekg Medical Decision Making Medical Decision Making MDM Narrative: 54 y/o M with hx of depression, prior psychosis, suicidal ideation, anxiety, asthma, COPD, hyperlipidemia, diabetes, hypertension, obesity, chronic kidney disease, who is well known to our emergency department given he is a high utilizer of resources who presents with shortness of breath and palpitations x2 days. Associated cough and wheezing, he states his inhalers have been beneficial. Patient states he is anxious, he took his anxiety medication prior to arrival. He states he met with the his therapist today. Problem: Chronically suicidal, psychiatric illness, COPD, diabetes History: Per patient I have considered the following differential diagnoses: COPD exacerbation, viral syndrome, bronchitis, pneumonia, ACS Plan: The patient is here with the his chronic complaints. He typically presents with chest pain shortness of breath, palpitations and anxiety. He often becomes suicidal at the time of discharge. Screening labs including blood gas viral panel chest x-ray EKG obtained, and troponin, the patient's labs were at his baseline, there were no acute abnormalities, his exam was unremarkable. He can be discharged home to continue taking his scheduled medications. I have independently reviewed the following tests: Labs: No leukocytosis, not anemic, no electrolyte abnormality, troponin 8, blood gas at baseline, viral panel negative EKG: Normal sinus rhythm, rate of 90, nonspecific T-wave abnormality again noted, QTC 452, no changes no active ischemic changes Chest x-ray:Findings: Left lower lobe consolidation with left lung volume loss most likely represent atelectasis. Diffuse interstitial prominence in both lungs may represent pulmonary edema/ pulmonary vascular congestion. Normal size heart. No acute fracture. IMPRESSION: 1. Left lower lobe consolidation with left lung volume loss most likely represent atelectasis, unchanged compared to multiple prior studies. 2. Diffuse interstitial prominence in both lungs may represent pulmonary edema/ pulmonary vascular congestion. Differential Diagnosis Differential Diagnoses: The differential diagnosis associated with the presentation includes See medical decision-making Admission/Observation Consideration of admission/observation: Escalation of care including admission/observation considered Not applicable Lab Data [facility] Lab Attestation statement: I reviewed the patient's lab results. 03/14/25 19:15 03/14/25 19:15 Labs: Lab Results 03/14/25 03/14/25 03/14/25 Range/Units 19:15 19:16 19:37 WBC 7.0 (4.8-10.8) X10*3/uL RBC 4.56 L (4.60-5.80) X10*6/uL Hgb 13.3 L (14.0-18.0) g/dl Hct 41.0 L (42.0-52.0) % MCV 89.9 (80.0-98.0) fL MCH 29.2 (27.0-33.0) pg MCHC 32.4 (31.0-36.0) g/dl RDW 15.6 (11.0-16.0) % Plt Count 195 (160-400) X10*3/uL MPV 9.9 (9.4-12.4) fL Immature Gran % (Auto) 0.3 (0.0-0.4) % Neut % (Auto) 65.6 (45-73) % Lymph % (Auto) 21.8 (20-40) % Nuckolls % (Auto) 7.3 (2-11) % Eos % (Auto) 4.4 H (0-4) % Baso % (Auto) 0.6 (0-2) % Lymph # (Auto) 1.5 (1.2-4.9) X10*3/uL Nuckolls # (Auto) 0.5 (0.1-1.2) X10*3/uL Eos # (Auto) 0.3 (0.0-0.4) X10*3/uL Baso # (Auto) 0.0 (0.0-0.2) X10*3/uL Abs Immat Gran (auto) 0.02 (0.00-0.03) X10*3/uL Absolute Neuts (auto) 4.6 (2.0-8.3) x10*3/uL Absolute Nucleated RBC 0.000 (0.0-0.012) X10*3/uL Nucleated RBC % (auto) 0.0 (0.0-0.2) /100WBC PT 11.2 (10.9-12.4) SEC INR 1.0 (0.9-1.1) VBG pH 7.48 H (7.32-7.43) VBG pCO2 39 mmHg VBG pO2 128 mmHg VBG HCO3 29 H (22-26) mmol/L VBG O2 Saturation 100.0 % VBG Base Excess 5.5 mmol/L Sodium 142 (135-145) mmol/L Potassium 4.2 (3.3-5.1) mmol/L Chloride 107 (96-108) mmol/L Carbon Dioxide 25 (22-29) mmol/L Anion Gap 14 (12-20) BUN 25 H (9-16) mg/dL Creatinine 1.61 H (0.5-1.4) mg/dL Estim Creat Clear Calc 64.8 Estimated GFR 45 Random Glucose 142 H (60-115) mg/dL Calcium 9.3 (8.4-10.2) mg/dL Total Bilirubin 0.3 (0.0-1.0) mg/dL AST 31 (5-37) U/L ALT 25 (0-40) U/L Alkaline Phosphatase 100 (39-117) U/L Troponin I High Sens 8.1 (<3.5-35.0) ng/L NT-Pro-B Natriuret Pep 150.5 (<300) pg/mL Total Protein 7.2 (6.5-8.0) g/dL Albumin 4.0 (3.5-5.0) g/dL COVID-19 (CARON) Negative (Negative) COVID-19 Clin Com See Note Influenza Type A (SANDRA) Negative (Negative) Influenza Type B (SANDRA) Negative (Negative) Influenza A & B Note See Note Independent Interpretation I performed an independent interpretation of an: EKG Radiology Impression Discussion of test interpretation with radiology: I have reviewed the radiologist's reading. Discharge Plan Discharge Clinical Impression: Chronic shortness of breath, Anxiety Patient Disposition: Home, Self-Care Instructions: Anxiety (ED), Shortness of Breath (ED) Additional Instructions: You had no lab abnormalities, your EKGs at baseline, the chest x-ray is at your baseline, the viral panel was negative. You have chronic shortness of breath and chronic anxiety. Continue to take your home medications as directed, continue to see your therapist. Follow up with your primary care as needed. Prescriptions: No Action albuterol sulfate [Ventolin HFA] 90 mcg/actuation HFA aerosol inhaler 2 puff inhalation Q4-6H PRN (Reason: for wheezing) Qty: 18 1RF clonidine HCl 0.1 mg Tablet 0.1 mg PO Q4H PRN (Reason: moderate anxiety) 30 Days Qty: 90 0RF Protocol: Hold for SBP< HOLD for SBP < : 90 bupropion HCl 300 mg Tablet Extended Release 24 Hr 300 mg PO DAILY 30 Days Qty: 30 0RF risperidone 3 mg tablet 3 mg PO BEDTIME 30 Days Qty: 30 0RF famotidine 20 mg Tablet 20 mg PO BID 30 Days Qty: 60 0RF Jardiance 10 mg Tablet 10 mg PO DAILY 30 Days Qty: 30 0RF metformin 500 mg tablet 500 mg PO BIDWMEAL 30 Days Qty: 60 0RF olanzapine 5 mg Tablet 5 mg PO DAILY PRN (Reason: agitation) 30 Days Qty: 15 0RF hydroxyzine HCl 25 mg tablet 25 mg PO TID PRN (Reason: anxiety) 30 Days Qty: 60 1RF escitalopram oxalate 20 mg tablet 20 mg PO DAILY 30 Days Qty: 30 0RF ondansetron HCl 4 mg tablet 4 mg PO Q8H PRN (Reason: nausea and vomiting) Qty: 12 0RF atorvastatin 40 mg tablet 40 mg PO DAILY Qty: 30 0RF thiamine HCl (vitamin B1) 100 mg tablet 100 mg PO BID Qty: 60 0RF tamsulosin 0.4 mg capsule 0.4 mg PO BEDTIME Qty: 30 0RF ferrous sulfate 325 mg (65 mg iron) tablet 325 mg PO DAILY Qty: 30 0RF losartan 25 mg tablet 25 mg PO DAILY Qty: 30 0RF insulin glargine [Lantus Solostar U-100 Insulin] 100 unit/mL (3 mL) insulin pen 15 unit subcut DAILY Qty: 15 0RF cholecalciferol (vitamin D3) 50 mcg (2,000 unit) capsule 50 mcg PO DAILY Qty: 30 0RF Interventions: ED Discharge Assessment Last Done: 03/14/25 23:13 Discharge Date/Time: 03/14/25 23:13 Print Language: Panamanian
--- NOTE | 2025-03-14 18:17 | ECG_ITS ---
Test Reason : PALPITATIONS Blood Pressure : */* mmHG Vent. Rate : 90 BPM Atrial Rate : 90 BPM P-R Int : 148 ms QRS Dur : 104 ms QT Int : 370 ms P-R-T Axes : 31 -14 40 degrees QTcB Int : 452 ms Normal sinus rhythm Moderate voltage criteria for LVH, may be normal variant ( R in aVL , Bobby product ) Nonspecific T wave abnormality Abnormal ECG When compared with ECG of 28-Feb-2025 21:14, No significant change was found Referred By: Milvia Aldrich Electronically Signed By: Low Machado
[2025-03-14 19:37] LABS: MANUAL DIFF FLAG NO
[2025-03-14 19:38] LABS: Hematocrit 41.0 % (42.0-52.0); Hemoglobin 13.3 g/dl (14.0-18.0); Imm Gran Abs Auto 0.02 X10*3/uL (0.00-0.03); Imm Gran Pct Auto 0.3 % (0.0-0.4); Lymphocytes Absolute Auto 1.5 X10*3/uL (1.2-4.9); Mean Corpuscular HGB Conc 32.4 g/dl (31.0-36.0); Mean Corpuscular Hemoglobin 29.2 pg (27.0-33.0); Mean Corpuscular Volume 89.9 fL (80.0-98.0); NRBC Abs Auto 0.000 X10*3/uL (0.0-0.012); NRBC Pct Auto 0.0 /100WBC (0.0-0.2); Platelet Count 195 X10*3/uL (160-400); Red Blood Count 4.56 X10*6/uL (4.60-5.80); White Blood Count 7.0 X10*3/uL (4.8-10.8)
[2025-03-14 19:40] LABS: Venous Blood Gas Refer to POC result
[2025-03-14 19:42] LABS: VBG HCO3 29 mmol/L (22-26); VBG O2 % Saturation 100.0 %
[2025-03-14 19:46] LABS: INTERNATIONAL NORM RATIO 1.0 (0.9-1.1); Prothrombin Time 11.2 SEC (10.9-12.4)
[2025-03-14 19:52] LABS: Alanine Aminotransferase 25 U/L (0-40); Albumin Level 4.0 g/dL (3.5-5.0); Alkaline Phosphatase 100 U/L (39-117); Anion Gap 14 (12-20); Aspartate Amino Transferase 31 U/L (5-37); Blood Urea Nitrogen 25 mg/dL (9-16); Calcium 9.3 mg/dL (8.4-10.2); Carbon Dioxide 25 mmol/L (22-29); Chloride 107 mmol/L (96-108); Creatinine Clr Calc Pharmacy 64.8; Estimated Glomerular Filt Rate 45; Potassium 4.2 mmol/L (3.3-5.1); Sodium 142 mmol/L (135-145); Total Protein 7.2 g/dL (6.5-8.0)
[2025-03-14 19:56] LABS: IDNOW Serial# 58CA691E; Influenza B2 Negative (Negative)
[2025-03-14 19:57] LABS: COVID-19 Test Negative (Negative); IDNOW Serial# 55D5AD1C
[2025-03-14 19:59] LABS: NT Pro B Type Natriuretic Pept 150.5 pg/mL (<300)
[2025-03-14 19:59] LABS: Troponin-I High Sensitivity 8.1 ng/L (<3.5-35.0)
[2025-03-14 21:36] VITALS: BP 116/71; PULSE 83; RESP 15; TEMP 36.5; O2SAT 94
--- OUTSIDE RECORDS SUMMARY | 2025-03-14 21:40 | XMS_ITS | Clinical Summary ---
Author Organization [facility] Address [address] [place] [address] Care Team Providers Care Desk Operator Name Role Phone Unavailable Primary Care [...] 2) 2020 COVID-19 Vaccine (1 - season) 2025 RSV Vaccine 50 years and old er and Patients (1 - 1-dose 75+ series) 2045
--- OUTSIDE RECORDS SUMMARY | 2025-03-14 21:41 | XMS_ITS | Encounter Summary ---
Author Organization [facility] Address [address] [place] [id number] Care Team Providers Care Water Attendant Name Role Phone Unavailable Primary Care Provider Unavailabl e Encounter Details Date Type Department Care Team (Late st Contact Info) Description 12/23/2021 Scanned Document [facility] [address] [place] [id number] Gastroenterology, Scan Social History Tobacco Use Types [...]
--- OUTSIDE RECORDS SUMMARY | 2025-03-14 21:41 | XMS_ITS | Patient Health Record ---
Author Organization [facility] Address [address] [place] [id number] Care Team Providers Care Studio Operations Engineer In Charge Name Role Phone Fox Ku MD Primary Care Provider Briana Tashi Erwin Unavailable [phone] Alisha Moore Unavailable Unavailable Allergies No Known [...] Status Risk Notes Problem Colon cancer screening (265822275) Colon cancer screening (Z12.11) Active confirmed Problem History of adenomatous polyp of colon (846717005) History of adenomatous polyp of colon (Z86.010) Active confirmed Problem Diverticular disease of colon (392763660) Diverticulosis of large intestine without perforation or abscess without bleeding (K57.30) Active confirmed Problem Gastroesophageal reflux disease without esophagitis (501302451) Gastroesophageal reflux disease without esophagitis (K21.9) Active confirmed Problem Preprocedural examination (127737888658297) Preprocedural examination (Z01.818) Active confirmed Problem Iron deficiency anemia (16274494) Iron deficiency anemia, unspecified iron deficiency anemia type (D50.9) Active confirmed Plan Of Treatment Pending Test Test Name Order Date Pathology 07/13/2023 Future Test Test Name Order Date UPPER GI ENDOSCOPY 06/23/2017 COLONOSCOPY 06/23/2017 COLONOSCOPY 04/17/2023 Insurance Providers Payer Name Payer Address Payer Phone Subscriber Number Group Number Insured Name Patient Relationship to Insured Coverage Start Date Coverage End Date [facility] [address] [address] [place], [place] [id number] KIAN MAHMOOD Self - patient is the insured MEDICAID OF [facility] [address] [place] [address] [id number] KIAN MAHMOOD Self - patient is the insured Medical (General) History Medical History History ICD Code IDDM Hypertension Heart murmur-Dr. Collins Asthma/COPD- Dr. Correa Pulmonary embolus in 2015--on Coumadin-- sees Dr. Moore Lung mass--surgery in 2008 a s below, with XRT; biopsied in approx 2015 and benign--followed by Dr. Tino Dimas CT,CVA,renal disease GERD--upper endoscopy August of 2017 with [...] History Surgery Date(Month/Year) Mass removed--Dr. Fields at [facility]-- Be nign , but had XRT 2008 Right inguinal hernia 1990 Ear tubes/Adenoids
--- OUTSIDE RECORDS SUMMARY | 2025-03-14 21:41 | XMS_ITS | Clinical Summary ---
Author Organization [facility] Address [address] [place] [address] Care Team Providers Care Office Professionals Name Role Phone Unavailable Primary Care Provider [...] Description 02/01/2025 10:00 AM EDT Office Visit [facility] [address] [place] [address] Perez Romero DDS Dental abscess (Primary Dx); [...] Care Team (Late st Contact Info) Description 04/21/2025 9:30 AM EST Office Visit [facility] [address] [place] [address] Perez Romero, DDS [address] [place], [place] [phone] Health Maintenance Due Date Last Done Comments [...]
--- OUTSIDE RECORDS SUMMARY | 2025-03-14 21:41 | XMS_ITS | Clinical Summary ---
Author Organization [facility] Address [address] [place] [address] DR [address] NEPTALI DECKER [phone] Phone Care Team Providers Care De Icer Installer Name Role Phone Bon Arvizu MD Primary Care Provider [phone] Allergies No known active allergies Medications Ventolin HFA 108 (90 Base) MCG/ACT inhaler TAKE 2 PUFFS BY MOUTH EVERY 4 HOURS NEEDED FOR WHEEZE 09/02/19 23 Active atorvastatin (LIPITOR) 40 MG tablet Take 40 mg by mouth 1 (one) time each day 07/18/19 23 Active cholecalciferol (VITAMIN D-3) 50 MCG (2000 UT) [...] each day 1 each 01/28/20 24 Active Dapagliflozin Propanediol 10 MG tablet Take 10 mg by mouth 1 (one) time each day in the morning 90 tablet 3 02/03/20 25 026 Active losartan (Cozaar) 25 MG tablet Take 2 tablets (50 mg total) by mouth 1 (one) time each day 180 tablet 3 02/03/20 25 026 Active Active Problems Problem Noted Date Diagnosed Date Gastro-esophageal reflux disease without esophag itis 01/30/2025 Iron deficiency anemia 01/30/2025 History of adenomatous polyp of colon 01/30/2025 Diverticular disease of colon 01/30/2025 Allergic rhinitis 02/10/2006 Encounters Date Type Department Care Team Description 02/04/2025 Orders Only [facility] [address] [place] [address] Tashi Bonner MD Stage 3b chronic kidney disease (HCC) 02/02/2025 1:30 PM EDT Office Visit [facility] [address] [place] [address] Tashi Bonner MD Stage 3a chronic kidney disease (HCC) (Primary Dx); Type 2 diabetes mellitus with diabetic chronic kidney disease (HCC) 01/23/2025 Telephone [facility] [address] [address] Tashi Bonner MD 01/03/2025 Orders Only [facility] [address] [address] Tashi Bonner MD from Last 3 Months [...] Visit [facility] [address] [place] [address] Tashi Bonner MD [address] [facility] [address] [place] [address] Health Maintenance Due Date Last Done Comments [...] Bonner MD LAB URINE ORDERABLES Final Result [place] See order comments [place] [address] * (ABNORMAL) Albumin, urine, random (01/03/2025 9:57 [...] URINE ORDERABLES Final Result Performing Organization Address [facility] Co de Phone Number [facility] See order comments [place] [address] * (ABNORMAL) Urinalysis with microscopic (01/03/2025 9:57 AM EDT) Color Urine Yellow See orde r comments Appearance Urine Clear See order comments pH Urine >=9.0 5.0 - 9.0 See order comments Glucose Urine Negative Negative mg/dL See order comments Blood, Urine Negative Negative See ord er comments Specific [place] Urine 1.010 1.005 - 1.025 See order [...] URINE ORDERABLES Final Result Performing Organization Address [facility] Co de Phone Number [facility] See order comments [place] [address] * PTH, Intact (01/03/2025 9:39 AM EDT) Pathologist [facility] Parathyroid Hormone, Intact 51.4 8.7 - 77.1 pg/mL See order comments 01/03/2025 9:39 AM EDT 01/03/2025 9:39 AM EDT Tashi Bonner MD LAB HISTORICA [id number] RESULTS Final Result Performing Organization Address [facility] Co de Phone Number [place] See order comments [place] [address] * Cystatin C w/GFR (01/03/2025 9:39 AM EDT) Pathologist [facility] Cystatin C 2.09 See order comments Comment: REFRENCE RANGE 0.52-1.23 MG/L Performing Sites [facility], [address] [address], [place], [place] Manager Assessment: Malik Salmeron M.D.,PhD eGFR by Cystatin C 30 See order comments Comment: REFERENCE RANGE:>=60 mL/min/1.73mE2 Performing Sites [facility], [address] [address], [place], [place] Manager Assessment: Malik Salmeron M.D.,PhD 01/03/2025 9:39 AM EDT 01/03/2025 9:39 AM EDT Tashi Bonner MD LAB BLOOD ORDERABLES Final Result Performing Organization Address [facility] de Phone Number [facility] See order comments [place] [address] * Iron Panel (Fe, TIBC, TSAT) (01/03/2025 9:39 AM EDT) Pathologist [facility] Iron 50 45 - 160 mcg/dL See order comments TIBC 230 228 - 428 mcg/dL See order comments Iron Saturation (TSat) 22 15 - 50 % See order comments UIBC 180 ug/dL See order comments 01/03/2025 9:39 AM EDT 01/03/2025 9:39 AM EDT Tashi Bonner MD LAB BLOOD ORDERABLES Final Result Performing Organization Address [facility] de Phone Number [place] See order comments [place] [address] * Vitamin D 25 Hydroxy (01/03/2025 9:39 [...] BLOOD ORDERABLES Final Result Performing Organization Address City/[facility] Co de Phone Number [place] See order comments [place] [address] * (ABNORMAL) CBC and Differential (01/03/2025 9:39 [...] order comments [place] [address] * (ABNORMAL) Uric Acid (01/03/2025 9:39 AM EDT) Uric Acid 8.0(H) 3.4 - 7.0 mg/dL See order comments 01/03/2025 9:39 AM EDT 01/03/2025 9:39 AM EDT us Tashi Bonner MD LAB BLOOD ORDERABLES Final Result Performing Organization Address [facility] Co de Phone Number [place] See order comments [place] [address] * Phosphorus (01/03/2025 9:39 AM EDT) Pathologist [facility] Phosphorus, Serum 3.0 2.7 - 4.5 mg/dL See order comments 01/03/2025 9:39 AM EDT 01/03/2025 9:39 AM EDT us Tashi Bonner MD LAB BLOOD ORDERABLES Final Result Performing Organization Address [facility] de Phone Number [place] See order comments [place] [address] * (ABNORMAL) Magnesium (01/03/2025 9:39 AM EDT) Magnesium 1.5(L) 1.6 - 2.6 mg/dL See order comments 01/03/2025 9:39 AM EDT 01/03/2025 9:39 AM EDT Tashi Bonner MD LAB BLOOD ORDERABLES Final Result Performing Organization Address [facility] de Phone Number [place] See order comments [place] [address] * (ABNORMAL) Hemoglobin A1c (01/03/2025 9:39 AM [...] average glucose, using the formula of the [id number] Average Glucose study (ADAG), Diabetes Care, Vol.31,#8, 2007 01/03/2025 9:39 AM EDT 01/03/2025 9:39 AM EDT us Tashi Bonner MD LAB BLOOD ORDERABLES Final Result Performing Organization Address [facility] de Phone Number [place] See order comments [place] [address] * Ferritin (01/03/2025 9:39 AM EDT) Ferritin 39 20 - 250 ng/mL See order comments 01/03/2025 9:39 AM EDT 01/03/2025 9:39 AM EDT us Tashi Bonner MD LAB BLOOD ORDERABLES Final Result Performing Organization Address [facility] de Phone Number [place] See order comments [place] [address] * (ABNORMAL) Basic Metabolic Panel (01/03/2025 9:39 [...] order comments [place] [address] from Last 3 Months Insurance Care Teams De Icer Installer Relationship Specialty Start Date End Date Bon Arvizu MD [address] [place] [address] PCP - General Internal Medicine 06/04/22
[2025-03-14 22:00] VITALS: BP 116/71; PULSE 83; RESP 15; TEMP 36.5; O2SAT 94
[2025-03-14 23:13] VITALS: BP 116/71; PULSE 83; RESP 15; TEMP 36.5; O2SAT 94
== END 2025-03-14 23:13 | disposition home or self-care (01) ==
PROVIDERS: Registered Nurse Emergency; Emergency Provider Emergency Medicine; PCP Internal Medicine
DX: R06.02 Shortness of breath (principal); F41.9 Anxiety disorder, unspecified; I12.9 Hypertensive chronic kidney disease with stage 1 through stage 4 chronic kidney disease, or unspecified chronic kidney disease; E11.22 Type 2 diabetes mellitus with diabetic chronic kidney disease; N18.30 Chronic kidney disease, stage 3 unspecified; J44.9 Chronic obstructive pulmonary disease, unspecified; Z79.84 Long term (current) use of oral hypoglycemic drugs; Z79.899 Other long term (current) drug therapy
CPT/HCPCS: 36415; 71046; 80053; 82803; 83880; 84484; 85025; 85610; 87502; 87635; 93005; 99283; 99284

== ENCOUNTER → 2025-03-14 18:17 | Outpatient (BNV) | payer OTHER, SELFPAY | PROVIDERS: Emergency Provider Emergency Medicine; PCP Internal Medicine; Visit Provider Internal Medicine Cardiovascular Disease | DX: R94.31 Abnormal electrocardiogram [ECG] [EKG] (principal); R00.2 Palpitations | CPT/HCPCS: 93010 ==

== ENCOUNTER → 2025-03-14 18:18 | Outpatient (BNV) | payer OTHER, SELFPAY | PROVIDERS: PCP Internal Medicine; Visit Provider Student in an Organized Health Care Education/Training Program | DX: R06.00 Dyspnea, unspecified (principal) | CPT/HCPCS: 71046 ==

== ENCOUNTER 2025-03-16 08:04 | Outpatient (AMB) | payer OTHER, SELFPAY ==
[2025-03-16 08:07] VITALS: BP 130/90; PULSE 86; TEMP 36.3; O2SAT 97; BMI 38.5
--- NOTE | 2025-03-16 08:07 | A.OFFPC_ITS ---
Vital Signs 03/16/25 08:07 Height 5 ft 8 in Weight 253 lb 6 oz BMI 38.5 BP 130/90 H Blood Pressure Location Lt brachial Position Sitting Pulse 86 Pulse Source Pulse Oximeter Temp 97.3 F Temp Source Temporal Artery Scan Pulse Oximetry (%) 97 Oxygen Delivery Method Room Air Intake Visit Reasons: D/C [facility] [place] 03/13; psych; burning feet sensation Allergies pollen extracts (POLLEN) Allergy (Mild, Verified 03/16/25 10:05) RUNNY NOSE cat dander (CATS) Allergy (Unknown, Verified 03/16/25 10:05) UNKNOWN dog dander (DOGS) Allergy (Unknown, Verified 03/16/25 10:05) UNKNOWN mold (MOLD) Allergy (Unknown, Verified 03/16/25 10:05) UNKNOWN Medication List - Last Reconciled 03/16/25 by Bon Arvizu MD albuterol sulfate 90 mcg/actuation (Ventolin HFA) 2 puffs inhalation Q4-6H PRN atorvastatin 40 mg PO DAILY bupropion HCl XL 300 mg PO DAILY 30 days cholecalciferol (vitamin D3) 50 mcg PO DAILY clonidine HCl 0.1 mg See Protocol PO Q4H PRN 30 days empagliflozin (Jardiance) 10 mg PO DAILY 30 days escitalopram oxalate 20 mg PO DAILY 30 days famotidine 20 mg PO BID 30 days ferrous sulfate 325 mg PO DAILY hydroxyzine HCl 25 mg PO TID PRN 30 days insulin glargine (Lantus Solostar U-100 Insulin) 15 units (0.15 mL) subcut DAILY losartan 25 mg PO DAILY mecobalamin (vitamin B12) 5,000 mcg PO DAILY 90 days metformin 500 mg PO BIDWMEAL 30 days olanzapine 5 mg PO DAILY PRN 30 days ondansetron HCl 4 mg PO Q8H PRN risperidone 3 mg PO BEDTIME 30 days tamsulosin 0.4 mg PO BEDTIME thiamine HCl (vitamin B1) 100 mg PO BID Tobacco use date assessed: 02/06/25 Dental Screening Dental Screen Date: 02/06/25 Did you have a dental visit in the last 12 months?: No Did you have a dental problem in the last 6 months where you did not have access to dental care?: No Was dental information given to patient?: Patient has dentist HPI D/C [facility] [place] 03/13; psych; burning feet sensation HPI Details Patient comes in today complaining of recurrent burning sensation and pain in both of his feet lately Relates that he's had these in the past but they seem to be occurring more often lately States that he has diabetes and he is concerned that these may be neuropathy from his diabetes States that he feels okay otherwise He was admitted to the psychiatry unit at [facility] [place] last month for worsening depression and had his medications changed/adjusted - states that he is doing much better on his current medications He denies any increased headaches or dizziness Denies any exertional chest pains, no increased SOB No nausea/vomiting, no abdominal pain No change in bowel habits noted [facility] Medical History MDD (major depressive disorder), recurrent, severe, with psychosis Suicidal ideation Situational crisis Suicidal ideation Psychosis Chest pain Allergic rhinitis Insomnia Palpitations Vitamin D deficiency Chronic kidney disease, stage III (moderate) GERD without esophagitis Restrictive lung disease Obesity (BMI 30-39.9) Benign essential hypertension Pure hypercholesterolemia Diabetes mellitus Pulmonary emboli Chondrosarcoma Hyperlipidemia Chronic restrictive lung disease COPD (chronic obstructive pulmonary disease) Asthma Surgical History History of esophagogastroduodenoscopy (EGD) H/O colonoscopy History of inguinal hernia repair Hx of exploratory thoracotomy H/O tooth extraction Family History Father Hypertension Kidney failure, acute Mother Lung cancer Family/Other Diabetes Social History Household Members: Other Household Members Other:: Brother Housing: House Do you presently have visiting nurse or other home services: No Alcohol intake: former Patient Tobacco Use Status: Never used Tobacco e-Cigarette/Vaping Use: Never Used Second Hand Smoke Exposure: No Advance Directives Date on File: 10/25/15 service: No Current occupational status: unemployed Sexual orientation: Straight/Heterosexual Cognitive needs: No Hearing needs: No Vision needs: Yes (Glasses) Questionnaire PHQ-9 Over the last 2 weeks, how often have you been bothered by any of the following problems? 1. Little interest or pleasure in doing things: not at all 2. Feeling down, depressed, or hopeless: not at all 3. Trouble falling or staying asleep, or sleeping too much: not at all 4. Feeling tired or having little energy: not at all 5. Poor appetite or overeating: not at all 6. Feeling bad about yourself - or that you are a failure or have let yourself or your family down: not at all 7. Trouble concentrating on things, such as reading the newspaper or watching television: not at all 8. Moving or speaking so slowly that other people could have noticed. Or the opposite - being so fidgety or restless that you have been moving around a lot more than usual: not at all 9. Thoughts that you would be better off or of hurting yourself in some way: not at all Total score: 0 Depression Screening Interpretation: Negative Depression Screening Done: Yes Source: Developed by Drs. Tashi Michael, Laura Archer, Ambrosio Xie and colleagues, with an educational maría elena from [employer]. Thrive Questionnaire Date Thrive assessed: 09/13/24 I am a: Patient What is your living situation today?: I have a steady place to live Within the past 12 months, did the food you bought not last and you didn't have the money to get more?: I choose not to answer this question Within the past 12 months, did you worry whether your food would run out before you got money to buy more?: I choose not to answer this question Do you have trouble paying for medicines?: I choose not to answer this question Do you have trouble getting transportation to medical appointments?: I choose not to answer this question Do you have trouble paying your heating and electricity bill?: I choose not to answer this question Do you have trouble taking care of your child, family member or friend?: I choose not to answer this question Do you have trouble with day-to-day activities such as bathing, preparing meals, shopping, managing finances, etc.?: I choose not to answer this question Are you currently unemployed and looking for a job?: Yes Are you interested in more education?: No Please select the resources that you would like help with: None Currently or been in a relationship where the following occur: I choose not to answer THRIVE Score: 0 AUDIT C Alcohol Use Questionnaire (AUDIT-C) 1. How often do you have a drink containing alcohol?: Never 3. How often do you have six or more drinks on one occasion?: Never Total Score: 0 Score Reviewed/Action Taken: Yes CATIE-7 AMB Questionnaire CATIE-7 Date CATIE - 7 assessed: 03/16/25 Feeling nervous, anxious, or on edge: 2 = More than half the days Not being able to stop or control worryin = Nearly every day Worrying too much about different things: 3 = Nearly every day Trouble relaxin = Nearly every day Being so restless that it is hard to sit still: 3 = Nearly every day Becoming easily annoyed or irritable: 3 = Nearly every day Feeling afraid as if something awful might happen: 3 = Nearly every day Total CATIE-7 score (0-4 normal; 5-9 mild; 10-14 moderate; 15-21 severe): 20 Source: Developed by Drs. Tashi Michael, Laura Archer, Ambrosio Xie and colleagues, with an educational maría elena from [employer]. Review of Systems Const Denies chills, Denies difficulty sleeping (Rx helping a lot), Denies fatigue, Denies fever(s) and Denies headache(s) ENT Denies dysphagia, Denies dizziness, Denies otalgia, Denies headache(s), Denies neck pain, Denies odynophagia and Denies sore throat Card Denies chest pain, Denies rapid heart rate, Denies palpitations and Denies dyspnea Resp Denies chest congestion, Denies cough and Denies dyspnea GI Denies abdominal pain, Denies constipation, Denies dysphagia, Denies heartburn, Denies diarrhea, Denies nausea, Denies odynophagia and Denies vomiting Denies difficulty urinating, Denies dysuria, Denies nocturia and Denies urinary frequency Musc Reports back pain (over the lower back, on and off), Denies arthralgias, Denies neck pain, Reports numbness (on and off in both feet) and Reports tingling (on and off in both feet) Skin/Breast Denies rash Neuro Denies dizziness, Denies headache(s), Reports numbness (on and off in both feet) and Reports tingling (on and off in both feet) Psych Reports anxiety (better controlled) Endo Denies fatigue and Denies palpitations Physical exam (Primary Care) Vital Signs: Last Vital Signs Temp 97.3 F 03/16/25 08:07 Pulse 86 03/16/25 08:07 BP 130/90 H 03/16/25 08:07 Pulse Ox 97 03/16/25 08:07 Oxygen Delivery Method Room Air 03/16/25 08:07 BMI result Body Mass Index 38.5 Tobacco/Smoking Status: Tobacco use Status Tobacco use date assessed 02/06/25 03/16/25 08:09 Patient Tobacco Use Status Never used Tobacco 03/16/25 08:09 e-Cigarette/Vaping Use Never Used 03/16/25 08:09 PHQ-9: PHQ-9 Score PHQ-9: Total score 0 03/16/25 08:14 Depression Screening Interpretation: Negative Thrive Assessment: Date of Thrive Assessment Date Thrive assessed 09/13/24 03/16/25 08:09 Currently or been in a relationship where the following occur: I choose not to answer Const General: no acute distress and alert HENMT Ears: TM's normal bilaterally and EAC's normal Throat: Yes posterior oropharynx normal and Yes tonsils normal (no TP co ngestion) Neck Neck: Yes supple and No lymphadenopathy Thyroid: Thyroid normal Resp Auscultation: clear to auscultation bilaterally, no rales and no wheezes Cardio Rate: regular rate Rhythm: regular rhythm Heart sounds: no murmurs GI Palpation (GI): Soft to palpation and nontender Auscultation: normal bowel sounds General: Yes no CVA tenderness Back/Spine/Pelvis Back: no CVA tenderness Thoracic/Lumbar Spine: lumbar spinal tenderness Skin Rashes: no rashes Extrem General: Yes no clubbing, cyanosis or edema Right lower extremity: normal to inspection Left lower extremity: normal to inspection Coding Level of Care Code Est Pt Level 4 (20993) Diagnoses Paresthesia of bilateral legs R20.2 Type 2 diabetes mellitus with hyperglycemia, without long-term current use of insulin E11.65 Diabetes mellitus type: type 2 Diabetes mellitus debt recovery officer insulin use: without debt recovery officer use Diabetes mellitus complication status: with hyperglycemia Pure hypercholesterolemia E78.00 Benign essential hypertension I10 Stage 3a chronic kidney disease N18.31 Chronic kidney disease stage 3 subtype: stage 3a (GFR 45-59) Vitamin D deficiency E55.9 Elevated TSH R79.89 Chronic restrictive lung disease J98.4 GERD without esophagitis K21.9 Urinary frequency R35.0 Insomnia, unspecified type G47.00 Insomnia type: unspecified Anxiety F41.9 Episode of recurrent major depressive disorder, unspecified depression episode severity F33.9 Major depression episode severity: unspecified Obesity (BMI 30-39.9) E66.9 Assessment & Plan Assessment & Plan (1) Paresthesia of bilateral legs: Code(s): R20.2 - Paresthesia of skin Category: Medical Plan: Patient reports that his symptoms (primarily on and off tingling and burning sensations in both feet) have been going on for a few weeks now and feels that they have gotten worse during his most recent psychaitric admission to [facility] [place] late last month He does have a Hx of B12 deficiency and his most recent Vitamin B12 level remains low at 250 pg/ml last week on 03/08/2025 Will go ahead and start him back on Vitamin B12 supplementation at 5000 mcg QD He will be getting his Vitamin B12 level rechecked before his next follow up appointment in May 2025 Have advised patient that if his symptoms persist despite normalization of his B12 level, we may then need to send him for EMG and NCV for further evaluation (2) Diabetes mellitus: Comment: taking Lantus insulin, Metformin, Montelukast Code(s): E11.9 - Type 2 diabetes mellitus without complications Category: Medical Qualifiers: Diabetes mellitus type: type 2 Diabetes mellitus correction insulin use: without debt recovery officer use Diabetes mellitus complication status: with hyperglycemia Qualified Code(s): E11.65 - Type 2 diabetes mellitus with hyperglycemia Plan: His HgbA1c was at 7.2% back in January 2025 (HgbA1c was previously at 6.8% and 5.5% earlier this year) - goal is <7.0% Reinforced diabetic diet Continue Lantus 15 units QD, Metformin 500 mg BID and Jardiance 10 mg QD (3) Pure hypercholesterolemia: Code(s): E78.00 - Pure hypercholesterolemia, unspecified Category: Medical Plan: Reinforced low cholesterol diet Continue Atorvastatin 40 mg QD Will recheck his labs and fasting lipids as scheduled in a couple of months for follow-up (4) Benign essential hypertension: Code(s): I10 - Essential (primary) hypertension Category: Medical Plan: Reinforced low sodium diet - goal is systolic BP of 120 mm or less Continue Losartan 25 mg QD (5) Chronic kidney disease, stage III (moderate): Code(s): N18.30 - Chronic kidney disease, stage 3 unspecified Category: Medical Qualifiers: Chronic kidney disease stage 3 subtype: stage 3a (GFR 45-59) Qualified Code(s): N18.31 - Chronic kidney disease, stage 3a Plan: His serum creatinine and GFR have remained steady and are mostly unchanged on his recent labs Renal US done last year came back normal Will continue to monitor his renal function regularly/closely Follow up with nephrology as scheduled (6) Vitamin D deficiency: Code(s): E55.9 - Vitamin D deficiency, unspecified Category: Medical Plan: Continue Vitamin D3 2000 units QD (7) Elevated TSH: Code(s): R79.89 - Other specified abnormal findings of blood chemistry Category: Medical Plan: His serum TSH and free T4 levels were again both normal on his recent labs done a couple of months ago; patient is clinically euthyroid Will continue to monitor his TFTs regularly (8) Chronic restrictive lung disease: Comment: CHRONIC RESTRICTIVE LUNG DISEASE SECONDARY TO, PAST 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 GROSS OBESITY ALSO CONTRIBUTES TO RESTRICTIVE DISORDER. Code(s): J98.4 - Other disorders of lung Category: Medical Plan: Continue Albuterol HFA 2 inhalations every 6 hours PRN He used to be on Trelegy but his insurance declined to continue covering his Rx PFTs done last year showed only findings of mild COPD Follow up with pulmonary as scheduled (9) GERD without esophagitis: Code(s): K21.9 - Gastro-esophageal reflux disease without esophagitis Category: Medical Plan: Dietary restrictions reinforced Continue Famotidine 20 mg BID (10) Urinary frequency: Code(s): R35.0 - Frequency of micturition Category: Medical Plan: Patient's symptoms are again likely due to BPH His serum PSA level was normal when last checked Continue Tamsulosin 0.4 mg Q HS To consider referral to urology if his urinary frequency or symptoms continue to persist or progress (11) Insomnia: Code(s): G47.00 - Insomnia, unspecified Category: Medical Qualifiers: Insomnia type: unspecified Qualified Code(s): G47.00 - Insomnia, unspecified Plan: Sleep hygiene reinforced He now takes Olanzapine 5 mg and Risperidone 3 mg Q HS - states that both of these help him sleep at night He used to take Trazodone but this was doscontinued during his most recent psychiatric hospitalization last month (12) Anxiety: Code(s): F41.9 - Anxiety disorder, unspecified Category: Medical Plan: Continue Escitalopram 20 mg QD, Bupropion XL 300 mg QD, Clonidine 0.1 mg Q 4 hours PRN and Hydroxyzine 25 mg TID PRN Follow up with psychiatry as scheduled (13) MDD (major depressive disorder), recurrent episode: Code(s): F33.9 - Major depressive disorder, recurrent, unspecified Category: Medical Qualifiers: Major depression episode severity: unspecified Qualified Code(s): F33.9 - Major depressive disorder, recurrent, unspecified Plan: Continue Escitalopram 20 mg QD, Bupropion XL 300 mg QD, Risperidone 3 mg Q HS and Olanzapine 5 mg BID Follow up with psychiatry as scheduled (14) Obesity (BMI 30-39.9): Comment: He remains grossly overweight. Denies symptoms of sleep apnea. Trying to lose weight on his own with diet and exercise. DID LOSE ABOUT 10 LB IN THE LAST 6 MONTHS. However he is not able to do much exercise, as he cannot walk long distance Code(s): E66.9 - Obesity, unspecified Category: Medical Plan: Reinforced diet/exercise as tolerated/lose weight Plan Follow up as scheduled in May 2025 Medications: New mecobalamin (vitamin B12) 5,000 mcg PO DAILY 90 tabs 1RF 90 days
--- OUTSIDE RECORDS SUMMARY | 2025-03-16 08:20 | XMS_ITS | Clinical Summary ---
Author Organization [facility] Address [address] [place] [address] Care Team Providers Care Clay Hoister Name Role Phone Unavailable Primary Care Provider [...]
--- OUTSIDE RECORDS SUMMARY | 2025-03-16 08:20 | XMS_ITS | Clinical Summary ---
Author Organization [facility] Address [address] [place] [address] Care Team Providers Care Flat Breakdown Processor Name Role Phone Unavailable Primary Care [...] Description 02/01/2025 10:00 AM EDT Office Visit [facility] [address] [place] [address] Perez Romero DDS Dental abscess (Primary Dx); [...] Description 04/21/2025 9:30 AM EST Office Visit [facility] [address] [place] [address] Perez Romero, DDS [address], [place] [id number] Health Maintenance Due Date Last Done Comments [...]
--- OUTSIDE RECORDS SUMMARY | 2025-03-16 08:20 | XMS_ITS | Clinical Summary ---
Author Organization [facility] Address [address] [place] [address] DR TANNER NEPTALI [place] [phone] Phone Care Team Providers Care Dry Cleaner Hand Name Role Phone Bon Arvizu MD Primary Care Provider [phone]- [phone] Allergies No known active allergies Medications Ventolin [...] Orders Only [facility] [address] [place] [address] Tashi Bonner MD Stage 3b chronic kidney disease (HCC) 02/02/2025 1:30 PM EDT Office Visit [facility] [address] [place] [address] Tashi Bonner MD Stage 3a chronic kidney disease (HCC) (Primary Dx); Type 2 diabetes mellitus with diabetic chronic kidney disease (HCC) 01/23/2025 Telephone [facility] [address] [address] Tashi Bonner MD 01/03/2025 Orders Only [facility] [address] [address] Tashi Bonner MD from Last 3 Months [...] [facility] [address] [place] [address] Tashi Bonner MD [address] [facility] [address] [place] [address] Health Maintenance Due Date Last Done Comments [...] order comments [place] [address] * (ABNORMAL) Albumin, urine, random (01/03/2025 9:57 [...] URINE ORDERABLES Final Result Performing Organization Address [facility] Co de Phone Number [facility] See order comments [place] [address] * (ABNORMAL) Urinalysis with microscopic (01/03/2025 9:57 AM EDT) Color Urine Yellow See orde r comments Appearance Urine Clear See order comments pH Urine >=9.0 5.0 - 9.0 See order comments Glucose Urine Negative Negative mg/dL See order comments Blood, Urine Negative Negative See ord er comments Specific [place] Urine 1.010 1.005 - 1.025 See order [...] URINE ORDERABLES Final Result Performing Organization Address [facility] Co de Phone Number [facility] See order comments [place] [address] * PTH, Intact (01/03/2025 9:39 AM EDT) Pathologist [facility] Parathyroid Hormone, Intact 51.4 8.7 - 77.1 pg/mL See order comments 01/03/2025 9:39 AM EDT 01/03/2025 9:39 AM EDT Tashi Bonner MD LAB HISTORICA [id number] RESULTS Final Result Performing Organization Address [facility] Co de Phone Number [place] See order comments [place] [address] * Cystatin C w/GFR (01/03/2025 9:39 AM EDT) Pathologist [facility] Cystatin C 2.09 See order comments Comment: REFRENCE RANGE 0.52-1.23 MG/L Performing Sites [facility], [address] [address], [place], [place] Oil Extractor: Malik Salmeron M.D.,PhD eGFR by Cystatin C 30 See order comments Comment: REFERENCE RANGE:>=60 mL/min/1.73mE2 Performing Sites [facility], [address] [address], [place], [place] Oil Extractor: Malik Salmeron M.D.,PhD 01/03/2025 9:39 AM EDT 01/03/2025 9:39 AM EDT Tashi Bonner MD LAB BLOOD ORDERABLES Final Result Performing Organization Address [facility] de Phone Number [facility] See order comments [place] [address] * Iron Panel (Fe, TIBC, TSAT) (01/03/2025 9:39 AM EDT) Pathologist [facility] Iron 50 45 - 160 mcg/dL See order comments TIBC 230 228 - 428 mcg/dL See order comments Iron Saturation (TSat) 22 15 - 50 % See order comments UIBC 180 ug/dL See order comments 01/03/2025 9:39 AM EDT 01/03/2025 9:39 AM EDT Tashi Bonner MD LAB BLOOD ORDERABLES Final Result Performing Organization Address [facility] de Phone Number [place] See order comments [place] [address] * Vitamin D 25 Hydroxy (01/03/2025 9:39 [...] BLOOD ORDERABLES Final Result Performing Organization Address City/[facility] Co de Phone Number [place] See order comments [place] [address] * (ABNORMAL) CBC and Differential (01/03/2025 9:39 [...] order comments [place] [address] * (ABNORMAL) Uric Acid (01/03/2025 9:39 AM EDT) Uric Acid 8.0(H) 3.4 - 7.0 mg/dL See order comments 01/03/2025 9:39 AM EDT 01/03/2025 9:39 AM EDT us Tashi Bonner MD LAB BLOOD ORDERABLES Final Result Performing Organization Address [facility] Co de Phone Number [place] See order comments [place] [address] * Phosphorus (01/03/2025 9:39 AM EDT) Pathologist [facility] Phosphorus, Serum 3.0 2.7 - 4.5 mg/dL See order comments 01/03/2025 9:39 AM EDT 01/03/2025 9:39 AM EDT us Tashi Bonner MD LAB BLOOD ORDERABLES Final Result Performing Organization Address [facility] de Phone Number [place] See order comments [place] [address] * (ABNORMAL) Magnesium (01/03/2025 9:39 AM EDT) Magnesium 1.5(L) 1.6 - 2.6 mg/dL See order comments 01/03/2025 9:39 AM EDT 01/03/2025 9:39 AM EDT Tashi Bonner MD LAB BLOOD ORDERABLES Final Result Performing Organization Address [facility] de Phone Number [place] See order comments [place] [address] * (ABNORMAL) Hemoglobin A1c (01/03/2025 9:39 AM [...] average glucose, using the formula of the L6K-Ciohnyo Average Glucose study (ADAG), Diabetes Care, Vol.31,#8, 2007 01/03/2025 9:39 AM EDT 01/03/2025 9:39 AM EDT us Tashi Bonner MD LAB BLOOD ORDERABLES Final Result Performing Organization Address [facility] de Phone Number [place] See order comments [place] [address] * Ferritin (01/03/2025 9:39 AM EDT) Ferritin 39 20 - 250 ng/mL See order comments 01/03/2025 9:39 AM EDT 01/03/2025 9:39 AM EDT us Tashi Bonner MD LAB BLOOD ORDERABLES Final Result Performing Organization Address [facility] de Phone Number [place] See order comments [place] [address] * (ABNORMAL) Basic Metabolic Panel (01/03/2025 9:39 [...] order comments [place] [address] from Last 3 Months Insurance Care Teams Dry Cleaner Hand Relationship Specialty Start Date End Date Bon Arvizu MD [address] [place] [address] PCP - General Internal Medicine 06/04/22
--- OUTSIDE RECORDS SUMMARY | 2025-03-16 08:20 | XMS_ITS | Patient Health Record ---
Author Organization [facility] Address [address] [place] [address] Care Team Providers Care Sandal Parts Assembler Name Role Phone Fox Ku MD Primary Care Provider [place] Tashi Erwin Unavailable [phone] Alisha Moore Unavailable Unavailable Allergies No Known [...] Status Risk Notes Problem Colon cancer screening (038686816) Colon cancer screening (Z12.11) Active confirmed Problem History of adenomatous polyp of colon (848062960) History of adenomatous polyp of colon (Z86.010) Active confirmed Problem Diverticular disease of colon (320208431) Diverticulosis of large intestine without perforation or abscess without bleeding (K57.30) Active confirmed Problem Gastroesophageal reflux disease without esophagitis (907570529) Gastroesophageal reflux disease without esophagitis (K21.9) Active confirmed Problem Preprocedural examination (335172069474639) Preprocedural examination (Z01.818) Active confirmed Problem Iron deficiency anemia (75615075) Iron deficiency anemia, unspecified iron deficiency anemia type (D50.9) Active confirmed Plan Of Treatment Pending Test Test Name Order Date Pathology 07/13/2023 Future Test Test Name Order Date UPPER GI ENDOSCOPY 06/23/2017 COLONOSCOPY 06/23/2017 COLONOSCOPY 04/17/2023 Insurance Providers Payer Name Payer Address Payer Phone Subscriber Number Group Number Insured Name Patient Relationship to Insured Coverage Start Date Coverage End Date [employer] [address] [address] [place], [place] [id number] KIAN MAHMOOD Self - patient is the insured MEDICAID OF [facility] [address] [place] [address] [id number] KIAN MAHMOOD Self - patient is the insured Medical (General) History Medical History History ICD Code IDDM Hypertension Heart murmur-Dr. Collins Asthma/COPD- Dr. Correa Pulmonary embolus in 2015--on Coumadin-- sees Dr. Moore Lung mass--surgery in 2008 a s below, with XRT; biopsied in approx 2015 and benign--followed by Dr. Tino Dimas [place],CVA,renal disease GERD--upper endoscopy August of 2017 with [...] History Surgery Date(Month/Year) Mass removed--Dr. Fields at [facility]-- Be nign , but had XRT 2008 Right inguinal hernia 1990 Ear tubes/Adenoids
--- OUTSIDE RECORDS SUMMARY | 2025-03-16 08:21 | XMS_ITS | Encounter Summary ---
Author Organization [facility] Address [address] [place] [address] Care Team Providers Care Firer Helper Name Role Phone Unavailable Primary Care Provider Unavailabl e Encounter Details Date Type Department Care Team (Late st Contact Info) Description 12/23/2021 Scanned Document [facility] [address] [place] [id number] Gastroenterology, Scan Social History Tobacco Use Types [...]
== END 2025-03-16 09:28 | disposition home or self-care (01) ==
LOC: HO.HMCH 08:05
PROVIDERS: PCP Internal Medicine; Visit Provider Internal Medicine
DX: I12.9 Hypertensive chronic kidney disease with stage 1 through stage 4 chronic kidney disease, or unspecified chronic kidney disease (principal); E11.65 Type 2 diabetes mellitus with hyperglycemia; N18.31 Chronic kidney disease, stage 3a; R20.2 Paresthesia of skin; E78.00 Pure hypercholesterolemia, unspecified; E55.9 Vitamin D deficiency, unspecified; R79.89 Other specified abnormal findings of blood chemistry; J98.4 Other disorders of lung; K21.9 Gastro-esophageal reflux disease without esophagitis; R35.0 Frequency of micturition; G47.00 Insomnia, unspecified; F41.9 Anxiety disorder, unspecified

== ENCOUNTER → 2025-03-16 08:04 | Outpatient (BNVA) | payer OTHER, SELFPAY | PROVIDERS: PCP Internal Medicine; Visit Provider Internal Medicine | DX: R20.2 Paresthesia of skin (principal); E11.65 Type 2 diabetes mellitus with hyperglycemia; E78.00 Pure hypercholesterolemia, unspecified; I12.9 Hypertensive chronic kidney disease with stage 1 through stage 4 chronic kidney disease, or unspecified chronic kidney disease; N18.31 Chronic kidney disease, stage 3a; E55.9 Vitamin D deficiency, unspecified; R79.89 Other specified abnormal findings of blood chemistry; J98.4 Other disorders of lung; K21.9 Gastro-esophageal reflux disease without esophagitis; R35.0 Frequency of micturition; G47.00 Insomnia, unspecified; F41.9 Anxiety disorder, unspecified; F33.9 Major depressive disorder, recurrent, unspecified; E66.9 Obesity, unspecified; Z68.38 Body mass index [BMI] 38.0-38.9, adult | CPT/HCPCS: 99212 ==

== ENCOUNTER 2025-03-20 13:19 | Emergency (ER) | payer OTHER, SELFPAY ==
--- NOTE | ~2025-03-20 | XR_ITS ---
EXAMINATION: XR CHEST CLINICAL INFORMATION: chest pain COMPARISON: March 14, 2025. TECHNIQUE: PA and lateral views. FINDINGS: Pulmonary reticular pattern. Low lung volume, left lung. Prominence of the interstitial markings. Linear opacities both lower lung lobes. Elevated left hemidiaphragm, chronic. Cardiomediastinal silhouette size is normal. S-shaped curvature of the axial skeleton and multilevel spondylosis. Osteopenia versus osteoporosis. Probable old healed rib fractures, left hemithorax. XR/XR chest 2V IMPRESSION: Chronic interstitial lung disease. Superimposed acute airspace disease cannot be excluded. Low lung volume, left lung. Old healed rib fractures osteotomy, left hemithorax. Electronically signed by: Ayo Oconnor MD 03/20/2025 02:05 PM [place]
--- NOTE | 2025-03-20 13:20 | ECG_ITS ---
Test Reason : CP Blood Pressure : */* mmHG Vent. Rate : 75 BPM Atrial Rate : 75 BPM P-R Int : 132 ms QRS Dur : 116 ms QT Int : 396 ms P-R-T Axes : 14 -5 20 degrees QTcB Int : 442 ms Normal sinus rhythm Minimal voltage criteria for LVH, may be normal variant ( R in aVL ) Borderline ECG When compared with ECG of 14-Mar-2025 19:17, No significant change was found Referred By: Zenaida June Electronically Signed By: HILTON DONATO MD
--- NOTE | 2025-03-20 13:28 | ED_ITS ---
HPI - General Adult General Chief complaint: Skin/Abscess/Foreign Body Stated complaint: CP, sob Time Seen by Provider: 03/20/25 16:40 History of Present Illness ED Provider: Dr. Carl HPI narrative: 54 y/o M patient; PMH MDD, CATIE, COPD, CKD, GERD, obesity, HLD, HTN, T2DM; presents with report of left-sided chest pain and shortness of breath for approx the last 4 hours. He otherwise denies: fever or chills, nausea/vomiting, abdominal pain, cough/congestion. No known sick contacts. Related Data Previous Rx's ?Medication ?Instructions ?Recorded ondansetron HCl 4 mg tablet 4 mg PO Q8H PRN nausea and 01/06/25 vomiting #12 tabs albuterol sulfate 90 mcg/actuation 2 puff inhalation Q 4-6H PRN for 01/18/25 aerosol inhaler (Ventolin HFA) wheezing #18 ea atorvastatin 40 mg tablet 40 mg PO DAILY #30 tabs 01/09 11/02 cholecalciferol (vitamin D3) 50 50 mcg PO DAILY #30 ca ps 01/24/25 mcg (2,000 unit) capsule ferrous sulfate 325 mg (65 mg 325 mg PO DAILY #30 tabs 01/24/25 iron) tablet insulin glargine 100 unit/mL (3 15 unit (0.15 mL) subc ut DAILY #15 01/24/25 mL) subcutaneous pen (Lantus mL Solostar U-100 Insulin) losartan 25 mg tablet 25 mg PO DAILY #30 tabs 01/09 11/02 tamsulosin 0.4 mg capsule 0.4 mg PO BEDTIME #30 caps 0 01/24/25 thiamine HCl (vitamin B1) 100 mg 100 mg PO BID #60 tab s 01/24/25 tablet bupropion HCl 300 mg 24 hr tablet, 300 mg PO DAILY 30 days #30 tabs 03/13/25 extended release clonidine HCl 0.1 mg tablet 0.1 mg PO Q4H PRN moderate anxiety 03/13/25 30 days #90 tabs empagliflozin 10 mg tablet 10 mg PO DAILY 30 days #30 tabs 03/13/25 (Jardiance) escitalopram oxalate 20 mg tablet 20 mg PO DAILY 30 da ys #30 tabs 03/13/25 famotidine 20 mg tablet 20 mg PO BID 30 days #60 tab s 03/13/25 hydroxyzine HCl 25 mg tablet 25 mg PO TID PRN anxiety 30 days 03/13/25 #60 tabs metformin 500 mg tablet 500 mg PO BIDWMEAL 30 days # 60 tabs 03/13/25 olanzapine 5 mg tablet 5 mg PO DAILY PRN agitation 30 03/13/25 days #15 tabs risperidone 3 mg tablet 3 mg PO BEDTIME 30 days #30 tabs 03/13/25 mecobalamin (vitamin B12) 5,000 5,000 mcg PO DAILY 90 days #90 tabs 03/16/25 mcg disintegrating tablet Allergies Allergy/AdvReac Type Severity Reaction Status Date / Time pollen extracts (POLLEN) Allergy Mild RUNNY NOSE Verified 03/20/25 13:32 cat dander (CATS) Allergy Unknown UNKNOWN Verified 03/20/25 13:32 dog dander (DOGS) Allergy Unknown UNKNOWN Verified 03/20/25 13:32 mold (MOLD) Allergy Unknown UNKNOWN Verified 03/20/25 13:32 Review of Systems 2 Review of Systems: Yes all other systems are reviewed and are negative PMFSH Past Medical History Attestation statement: The following information was validated with the patient. Source: old records reviewed Medical History MDD (major depressive disorder), recurrent, severe, with psychosis Suicidal ideation Situational crisis Suicidal ideation Psychosis Chest pain Allergic rhinitis Insomnia Palpitations Vitamin D deficiency Chronic kidney disease, stage III (moderate) GERD without esophagitis Restrictive lung disease Obesity (BMI 30-39.9) Benign essential hypertension Pure hypercholesterolemia Diabetes mellitus Pulmonary emboli Chondrosarcoma Hyperlipidemia Chronic restrictive lung disease COPD (chronic obstructive pulmonary disease) Asthma Surgical History History of esophagogastroduodenoscopy (EGD) H/O colonoscopy History of inguinal hernia repair Hx of exploratory thoracotomy H/O tooth extraction Family History Family History Father Hypertension Kidney failure, acute Mother Lung cancer Family/Other Diabetes Social History Social History Household Members: Other Household Members Other:: Brother Housing: House Do you presently have visiting nurse or other home services: No Alcohol intake: former Patient Tobacco Use Status: Never used Tobacco e-Cigarette/Vaping Use: Never Used Second Hand Smoke Exposure: No Advance Directives: Yes Advance Directives on File: Yes Advance Directives Date on File: 10/25/15 Do you have a plan to hurt others: No Plan service: No Current occupational status: unemployed Sexual orientation: Straight/Heterosexual Cognitive needs: No Hearing needs: No Vision needs: Yes (Glasses) Physical Exam ED Vital Signs: Vital Signs - 24 hr 03/20/25 13:29 Temperature 97.8 F Pulse Rate 75 Respiratory Rate 16 Blood Pressure 123/62 Pulse Oximetry 98 Oxygen Delivery Method Room Air BMI result Body Mass Index 42.3 Patient is afebrile and hemodynamically stable. Const General: cooperative and no acute distress Orientation/consciousness: patient oriented x3 HENMT Head: Yes normal to inspection and Yes atraumatic Eyes General: appearance normal, both eyes and all related structures Conjunctivae: conjunctivae normal Pupils: Equal, round and reactive pupils present EOM: EOMs intact bilaterally Neck Neck: Yes normal visual inspection, Yes full ROM, Yes supple and No tender Chest Other: Well healed incision to left lateral chest wall Well healed incision with scarring to left anterior chest wall, clear area of excoriation to chest wall. No signs of overlying erythema, induration or fluctuance. Chest palpation & inspection: normal palpation of entire chest wall Resp Effort & Inspection: normal respiratory effort, able to speak in complete sentences, no cough and no respiratory distress Auscultation: clear to auscultation bilaterally Cardio Rate: regular rate Rhythm: regular rhythm Peripheral pulses: Peripheral pulses 2+ throughout GI Inspection: Yes normal to inspection, No Abdominal wall edema and No distended Palpation (GI): Soft to palpation, not firm, nontender, no guarding and not rigid Auscultation: normal bowel sounds Back/Spine/Pelvis Back: No back tenderness Neuro General: patient oriented x3 Cranial nerves: Yes Equal, round and reactive pupils present Course Course Course Narrative: Rapid medical examination performed in triage by Zenaida June PA-C: Patient is a 54 year old assigned male at presenting to the emergency department with chest pain, shortness of breath, and a chest rash that is intermittently itchy. Detailed physical exam and review of systems are deferred to the product development carpenter. EKG, labs, imaging, swabs ordered. Patient placed back in the waiting room pending room availability and results. Reevaluation(s) Reevaluation #1: Patient is afebrile and hemodynamically stable. Reviewed triage ordered EKG, labs, CXR. CXR with evidence of CILD. No significant leukocytosis. Mild baseline anemia. Cr 1.44, baseline. Initial troponin 6.9, as pain began recently will plan for repeat troponin. COVID/Flu/RSV negative. 2nd troponin remains flat, unlikely ACS. COVID/Flu/RSV negative. Patient states he is feeling improved. Rash to chest wall is skin breakdown over old scar related to scratching. Discussed applying ice instead when itching. Patient provided ice packs and instructed in safe use. No signs of associated infection at this time. Plan: Discharge to home with PCP follow up Return precautions given Medical Decision Making Lab Data 03/20/25 13:43 03/20/25 13:43 Labs: Lab Results 03/20/25 03/20/25 Range/Units 13:43 17:06 WBC 5.3 (4.8-10.8) X10*3/uL RBC 3.93 L (4.60-5.80) X10*6/uL Hgb 11.5 L (14.0-18.0) g/dl Hct 35.0 L (42.0-52.0) % MCV 89.1 (80.0-98.0) fL MCH 29.3 (27.0-33.0) pg MCHC 32.9 (31.0-36.0) g/dl RDW 15.1 (11.0-16.0) % Plt Count 185 (160-400) X10*3/uL MPV 10.8 (9.4-12.4) fL Immature Gran % (Auto) 0.2 (0.0-0.4) % Neut % (Auto) 64.8 (45-73) % Lymph % (Auto) 20.2 (20-40) % [place] % (Auto) 8.5 (2-11) % Eos % (Auto) 5.9 H (0-4) % Baso % (Auto) 0.4 (0-2) % Lymph # (Auto) 1.1 L (1.2-4.9) X10*3/uL [place] # (Auto) 0.5 (0.1-1.2) X10*3/uL Eos # (Auto) 0.3 (0.0-0.4) X10*3/uL Baso # (Auto) 0.0 (0.0-0.2) X10*3/uL Abs Immat Gran (auto) 0.01 (0.00-0.03) X10*3/uL Absolute Neuts (auto) 3.4 (2.0-8.3) x10*3/uL Absolute Nucleated RBC 0.000 (0.0-0.012) X10*3/uL Nucleated RBC % (auto) 0.0 (0.0-0.2) /100WBC Sodium 142 (135-145) mmol/L Potassium 3.8 (3.3-5.1) mmol/L Chloride 109 H (96-108) mmol/L Carbon Dioxide 25 (22-29) mmol/L Anion Gap 12 (12-20) BUN 8 L (9-16) mg/dL Creatinine 1.44 H (0.5-1.4) mg/dL Estim Creat Clear Calc 71.2 Estimated GFR 51 Random Glucose 107 (60-115) mg/dL Calcium 8.7 D (8.4-10.2) mg/dL Total Bilirubin 0.3 (0.0-1.0) mg/dL AST 22 (5-37) U/L ALT 20 (0-40) U/L Alkaline Phosphatase 101 (39-117) U/L Troponin I High Sens 6.9 8.3 (<3.5-35.0) ng/L Total Protein 6.5 (6.5-8.0) g/dL Albumin 3.7 (3.5-5.0) g/dL Lipase 29 (8-78) U/L Influenza Type A (PCR) NEGATIVE (Negative) Influenza Type B (PCR) NEGATIVE (Negative) RSV RNA Qual (PCR) NEGATIVE (Negative) SARS-CoV-2 RNA (RT-PCR) NEGATIVE (Negative) Independent Interpretation I performed an independent interpretation of an: EKG Interpretation: EKG independently interpreted by myself as NSR 75BPM with normal intervals Radiology Impression Discussion of test interpretation with radiology: I have reviewed the radiologist's reading. Radiologist Impression: EXAMINATION: XR CHEST CLINICAL INFORMATION: chest pain COMPARISON: March 14, 2025. TECHNIQUE: PA and lateral views. FINDINGS: Pulmonary reticular pattern. Low lung volume, left lung. Prominence of the interstitial markings. Linear opacities both lower lung lobes. Elevated left hemidiaphragm, chronic. Cardiomediastinal silhouette size is normal. S-shaped curvature of the axial skeleton and multilevel spondylosis. Osteopenia versus osteoporosis. Probable old healed rib fractures, left hemithorax. XR/XR chest 2V IMPRESSION: Chronic interstitial lung disease. Superimposed acute airspace disease cannot be excluded. Low lung volume, left lung. Old healed rib fractures osteotomy, left hemithorax. Electronically signed by: Ayo Oconnor MD 03/20/2025 02:05 PM [facility] Discharge Plan Discharge Clinical Impression: Mild shortness of breath, Abrasion of skin Patient Disposition: Home, Self-Care Instructions: Shortness of Breath (ED), Abrasion (ED) Additional Instructions: You were seen today for shortness of breath. Your CXR was reassuring and did not show pneumonia. Your COVID/Flu/RSV was negative. Two tests of your heart (troponin) were negative. Try not to scratch at your scars. Try applying ice or cold water instead. Follow up with a primary doctor within the next 1 - 2 days to discuss your recent emergency department visit and for close re-evaluation. Return to the emergency department for: Worsening chest pain Difficulty breathing Passing out Prescriptions: No Action albuterol sulfate [Ventolin HFA] 90 mcg/actuation HFA aerosol inhaler 2 puff inhalation Q4-6H PRN (Reason: for wheezing) Qty: 18 1RF clonidine HCl 0.1 mg Tablet 0.1 mg PO Q4H PRN (Reason: moderate anxiety) 30 Days Qty: 90 0RF Protocol: Hold for SBP< HOLD for SBP < : 90 bupropion HCl 300 mg Tablet Extended Release 24 Hr 300 mg PO DAILY 30 Days Qty: 30 0RF risperidone 3 mg tablet 3 mg PO BEDTIME 30 Days Qty: 30 0RF famotidine 20 mg Tablet 20 mg PO BID 30 Days Qty: 60 0RF Jardiance 10 mg Tablet 10 mg PO DAILY 30 Days Qty: 30 0RF metformin 500 mg tablet 500 mg PO BIDWMEAL 30 Days Qty: 60 0RF olanzapine 5 mg Tablet 5 mg PO DAILY PRN (Reason: agitation) 30 Days Qty: 15 0RF hydroxyzine HCl 25 mg tablet 25 mg PO TID PRN (Reason: anxiety) 30 Days Qty: 60 1RF escitalopram oxalate 20 mg tablet 20 mg PO DAILY 30 Days Qty: 30 0RF ondansetron HCl 4 mg tablet 4 mg PO Q8H PRN (Reason: nausea and vomiting) Qty: 12 0RF atorvastatin 40 mg tablet 40 mg PO DAILY Qty: 30 0RF thiamine HCl (vitamin B1) 100 mg tablet 100 mg PO BID Qty: 60 0RF tamsulosin 0.4 mg capsule 0.4 mg PO BEDTIME Qty: 30 0RF ferrous sulfate 325 mg (65 mg iron) tablet 325 mg PO DAILY Qty: 30 0RF losartan 25 mg tablet 25 mg PO DAILY Qty: 30 0RF insulin glargine [Lantus Solostar U-100 Insulin] 100 unit/mL (3 mL) insulin pen 15 unit subcut DAILY Qty: 15 0RF cholecalciferol (vitamin D3) 50 mcg (2,000 unit) capsule 50 mcg PO DAILY Qty: 30 0RF mecobalamin (vitamin B12) 5,000 mcg tablet,disintegrating 5,000 mcg PO DAILY 90 Days Qty: 90 1RF Print Language: Cypriot
[2025-03-20 13:29] VITALS: BP 123/62; PULSE 75; RESP 16; TEMP 36.6; O2SAT 98; BMI 42.3
[2025-03-20 13:53] LABS: MANUAL DIFF FLAG NO
[2025-03-20 13:57] LABS: Hematocrit 35.0 % (42.0-52.0); Hemoglobin 11.5 g/dl (14.0-18.0); Imm Gran Abs Auto 0.01 X10*3/uL (0.00-0.03); Imm Gran Pct Auto 0.2 % (0.0-0.4); Lymphocytes Absolute Auto 1.1 X10*3/uL (1.2-4.9); Mean Corpuscular HGB Conc 32.9 g/dl (31.0-36.0); Mean Corpuscular Hemoglobin 29.3 pg (27.0-33.0); Mean Corpuscular Volume 89.1 fL (80.0-98.0); NRBC Abs Auto 0.000 X10*3/uL (0.0-0.012); NRBC Pct Auto 0.0 /100WBC (0.0-0.2); Platelet Count 185 X10*3/uL (160-400); Red Blood Count 3.93 X10*6/uL (4.60-5.80); White Blood Count 5.3 X10*3/uL (4.8-10.8)
[2025-03-20 14:13] LABS: Alanine Aminotransferase 20 U/L (0-40); Albumin Level 3.7 g/dL (3.5-5.0); Alkaline Phosphatase 101 U/L (39-117); Anion Gap 12 (12-20); Aspartate Amino Transferase 22 U/L (5-37); Blood Urea Nitrogen 8 mg/dL (9-16); Calcium 8.7 mg/dL (8.4-10.2); Carbon Dioxide 25 mmol/L (22-29); Chloride 109 mmol/L (96-108); Creatinine Clr Calc Pharmacy 71.2; Estimated Glomerular Filt Rate 51; Potassium 3.8 mmol/L (3.3-5.1); Sodium 142 mmol/L (135-145); Total Protein 6.5 g/dL (6.5-8.0)
[2025-03-20 14:22] LABS: Troponin-I High Sensitivity 6.9 ng/L (<3.5-35.0)
[2025-03-20 14:33] LABS: Resp Syncy Virus RNA Qual PCR NEGATIVE (Negative); SARS COV2 PCR INHOUSE NEGATIVE (Negative)
--- OUTSIDE RECORDS SUMMARY | 2025-03-20 16:25 | XMS_ITS | Clinical Summary ---
Author Organization [facility] Address [address] [place] [address] Care Team Providers Care Machine Pecan Gatherer Name Role Phone Unavailable Primary Care Provider [...] 10:00 AM EDT Office Visit [facility] [address] [place] [address] Perez Romero DDS Dental abscess (Primary Dx); [...] Description 04/21/2025 9:30 AM EST Office Visit [facility] [address] [place] [address] Perez Romero, DDS [address], [place] [id number] Health Maintenance Due Date Last Done Comments [...]
--- OUTSIDE RECORDS SUMMARY | 2025-03-20 16:25 | XMS_ITS | Clinical Summary ---
Author Organization [facility] Address [address] [place] [address] Care Team Providers Care Blade Changer Name Role Phone Unavailable Primary Care Provider [...]
--- OUTSIDE RECORDS SUMMARY | 2025-03-20 16:25 | XMS_ITS | Clinical Summary ---
Author Organization [facility] Address [address] [place] [address] Phone Care Team Providers Care Stacker Name Role Phone Bon Arvizu MD Primary Care Provider [phone] Allergies No known active allergies Medications Ventolin [...] Orders Only [facility] [address] [place] [address] Tashi Bonner MD Stage 3b chronic kidney disease (HCC) 02/02/2025 1:30 PM EDT Office Visit [facility] [address] [place] [address] Tashi Bonner MD Stage 3a chronic kidney disease (HCC) (Primary Dx); Type 2 diabetes mellitus with diabetic chronic kidney disease (HCC) 01/23/2025 Telephone [facility] [address] [address] Tashi Bonner MD 01/03/2025 Orders Only [facility] [address] [address] Tashi Bonner MD from Last 3 Months [...] Visit [facility] [address] [place] [place] [address] Tashi Bonner MD [address] [facility] [address] [place] [address] Health Maintenance Due Date Last Done Comments [...] order comments [place] [address] * (ABNORMAL) Albumin, urine, random (01/03/2025 9:57 [...] URINE ORDERABLES Final Result Performing Organization Address [facility] Co de Phone Number [facility] See order comments [place] [address] * (ABNORMAL) Urinalysis with microscopic (01/03/2025 9:57 AM EDT) Color Urine Yellow See orde r comments Appearance Urine Clear See order comments pH Urine >=9.0 5.0 - 9.0 See order comments Glucose Urine Negative Negative mg/dL See order comments Blood, Urine Negative Negative See ord er comments Specific [place] Urine 1.010 1.005 - 1.025 See order [...] URINE ORDERABLES Final Result Performing Organization Address [facility] Co de Phone Number [facility] See order comments [place] [address] * PTH, Intact (01/03/2025 9:39 AM EDT) Pathologist [facility] Parathyroid Hormone, Intact 51.4 8.7 - 77.1 pg/mL See order comments 01/03/2025 9:39 AM EDT 01/03/2025 9:39 AM EDT Tashi Bonner MD LAB HISTORICA [id number] RESULTS Final Result Performing Organization Address [facility] Co de Phone Number [place] See order comments [place] [address] * Cystatin C w/GFR (01/03/2025 9:39 AM EDT) Pathologist [facility] Cystatin C 2.09 See order comments Comment: REFRENCE RANGE 0.52-1.23 MG/L Performing Sites [facility], [address] [address], [place], [place] General Claims Agent: Malik Salmeron M.D.,PhD eGFR by Cystatin C 30 See order comments Comment: REFERENCE RANGE:>=60 mL/min/1.73mE2 Performing Sites [facility], [address] [address], [place], [place] General Claims Agent: Malik Salmeron M.D.,PhD 01/03/2025 9:39 AM EDT 01/03/2025 9:39 AM EDT Tashi Bonner MD LAB BLOOD ORDERABLES Final Result Performing Organization Address [facility] de Phone Number [facility] See order comments [place] [address] * Iron Panel (Fe, TIBC, TSAT) (01/03/2025 9:39 AM EDT) Pathologist [facility] Iron 50 45 - 160 mcg/dL See order comments TIBC 230 228 - 428 mcg/dL See order comments Iron Saturation (TSat) 22 15 - 50 % See order comments UIBC 180 ug/dL See order comments 01/03/2025 9:39 AM EDT 01/03/2025 9:39 AM EDT Tashi Bonner MD LAB BLOOD ORDERABLES Final Result Performing Organization Address [facility] de Phone Number [place] See order comments [place] [address] * Vitamin D 25 Hydroxy (01/03/2025 9:39 [...] BLOOD ORDERABLES Final Result Performing Organization Address City/[facility] Co de Phone Number [place] See order comments [place] [address] * (ABNORMAL) CBC and Differential (01/03/2025 9:39 [...] order comments [place] [address] * (ABNORMAL) Uric Acid (01/03/2025 9:39 AM EDT) Uric Acid 8.0(H) 3.4 - 7.0 mg/dL See order comments 01/03/2025 9:39 AM EDT 01/03/2025 9:39 AM EDT us Tashi Bonner MD LAB BLOOD ORDERABLES Final Result Performing Organization Address [facility] Co de Phone Number [place] See order comments [place] [address] * Phosphorus (01/03/2025 9:39 AM EDT) Pathologist [facility] Phosphorus, Serum 3.0 2.7 - 4.5 mg/dL See order comments 01/03/2025 9:39 AM EDT 01/03/2025 9:39 AM EDT us Tashi Bonner MD LAB BLOOD ORDERABLES Final Result Performing Organization Address [facility] de Phone Number [place] See order comments [place] [address] * (ABNORMAL) Magnesium (01/03/2025 9:39 AM EDT) Magnesium 1.5(L) 1.6 - 2.6 mg/dL See order comments 01/03/2025 9:39 AM EDT 01/03/2025 9:39 AM EDT Tashi Bonner MD LAB BLOOD ORDERABLES Final Result Performing Organization Address [facility] de Phone Number [place] See order comments [place] [address] * (ABNORMAL) Hemoglobin A1c (01/03/2025 9:39 AM [...] average glucose, using the formula of the Q6N-Ukgtugt Average Glucose study (ADAG), Diabetes Care, Vol.31,#8, 2007 01/03/2025 9:39 AM EDT 01/03/2025 9:39 AM EDT us Tashi Bonner MD LAB BLOOD ORDERABLES Final Result Performing Organization Address [facility] de Phone Number [place] See order comments [place] [address] * Ferritin (01/03/2025 9:39 AM EDT) Ferritin 39 20 - 250 ng/mL See order comments 01/03/2025 9:39 AM EDT 01/03/2025 9:39 AM EDT us Tashi Bonner MD LAB BLOOD ORDERABLES Final Result Performing Organization Address [facility] de Phone Number [place] See order comments [place] [address] * (ABNORMAL) Basic Metabolic Panel (01/03/2025 9:39 [...] order comments [place] [address] from Last 3 Months Insurance Care Teams Stacker Relationship Specialty Start Date End Date Bon Arvizu MD [address] [place] [address] PCP - General Internal Medicine 06/04/22
--- OUTSIDE RECORDS SUMMARY | 2025-03-20 16:26 | XMS_ITS | Encounter Summary ---
Author Organization [facility] Address [address] [place] [address] Care Team Providers Care Poker Supervisor Name Role Phone Unavailable Primary Care Provider Unavailabl e Encounter Details Date Type Department Care Team (Late st Contact Info) Description 12/23/2021 Scanned Document [facility] [address] [place] [phone] Gastroenterology, Scan Social History Tobacco Use Types [...]
[2025-03-20 17:19] LABS: Lipase 29 U/L (8-78)
[2025-03-20 17:32] LABS: Troponin-I High Sensitivity 8.3 ng/L (<3.5-35.0)
[2025-03-20 18:22] VITALS: BP 123/62; PULSE 75; RESP 16; TEMP 36.6; O2SAT 98
== END 2025-03-20 18:23 | disposition home or self-care (01) ==
PROVIDERS: Physician Assistant Medical; Emergency Provider Emergency Medicine; PCP Internal Medicine
DX: R06.02 Shortness of breath (principal); S20.319A Abrasion of unspecified front wall of thorax, initial encounter; J44.9 Chronic obstructive pulmonary disease, unspecified; I12.9 Hypertensive chronic kidney disease with stage 1 through stage 4 chronic kidney disease, or unspecified chronic kidney disease; E11.22 Type 2 diabetes mellitus with diabetic chronic kidney disease; N18.30 Chronic kidney disease, stage 3 unspecified; Z86.711 Personal history of pulmonary embolism; X58.XXXA Exposure to other specified factors, initial encounter; Y93.9 Activity, unspecified; Y92.9 Unspecified place or not applicable; Y99.9 Unspecified external cause status
CPT/HCPCS: 71046; 80053; 83690; 84484; 85025; 87637; 93005; 99283

== ENCOUNTER → 2025-03-20 13:20 | Outpatient (BNV) | payer OTHER, SELFPAY | PROVIDERS: Emergency Provider Emergency Medicine; PCP Internal Medicine; Visit Provider Internal Medicine Cardiovascular Disease | DX: R07.9 Chest pain, unspecified (principal) | CPT/HCPCS: 93010 ==

== ENCOUNTER → 2025-03-20 13:29 | Outpatient (BNV) | payer OTHER, SELFPAY | PROVIDERS: PCP Internal Medicine; Visit Provider Radiology Diagnostic Radiology | DX: J84.9 Interstitial pulmonary disease, unspecified (principal) | CPT/HCPCS: 71046 ==

== ENCOUNTER 2025-03-24 10:34 | Emergency (ER) | payer OTHER, SELFPAY ==
[2025-03-24 10:57] VITALS: BP 147/67; PULSE 59; RESP 16; TEMP 36.1; O2SAT 95; BMI 39.5
--- NOTE | 2025-03-24 10:57 | ED_ITS ---
HPI - General Adult General Chief complaint: Chest Pain Stated complaint: CP Time Seen by Provider: 03/24/25 11:11 Source: patient Mode of arrival: ambulatory Limitations: no limitations History of Present Illness ED Provider: HPI narrative: 54-year-old patient with a history of obesity, depression, anxiety, hypotension, multiple prior visits for anxiety and chest pain to the emergency department presenting with chest pain, he describes it as very quick lasting sec sharp nonradiating not associated with nausea or vomiting or diaphoresis. Started happening 03:00 in the morning. Currently chest pain-free. No recent surgeries no prolonged travels no hemoptysis no fevers or chills. Some of the pain is positional especially over the left pectoral. Related Data Previous Rx's ?Medication ?Instructions ?Recorded ondansetron HCl 4 mg tablet 4 mg PO Q8H PRN nausea and 01/06/25 vomiting #12 tabs albuterol sulfate 90 mcg/actuation 2 puff inhalation Q 4-6H PRN for 01/18/25 aerosol inhaler (Ventolin HFA) wheezing #18 ea atorvastatin 40 mg tablet 40 mg PO DAILY #30 tabs 01/09 11/02 cholecalciferol (vitamin D3) 50 50 mcg PO DAILY #30 ca ps 01/24/25 mcg (2,000 unit) capsule ferrous sulfate 325 mg (65 mg 325 mg PO DAILY #30 tabs 01/24/25 iron) tablet insulin glargine 100 unit/mL (3 15 unit (0.15 mL) subc ut DAILY #15 01/24/25 mL) subcutaneous pen (Lantus mL Solostar U-100 Insulin) losartan 25 mg tablet 25 mg PO DAILY #30 tabs 01/09 11/02 tamsulosin 0.4 mg capsule 0.4 mg PO BEDTIME #30 caps 0 01/24/25 thiamine HCl (vitamin B1) 100 mg 100 mg PO BID #60 tab s 01/24/25 tablet bupropion HCl 300 mg 24 hr tablet, 300 mg PO DAILY 30 days #30 tabs 03/13/25 extended release clonidine HCl 0.1 mg tablet 0.1 mg PO Q4H PRN moderate anxiety 03/13/25 30 days #90 tabs empagliflozin 10 mg tablet 10 mg PO DAILY 30 days #30 tabs 03/13/25 (Jardiance) escitalopram oxalate 20 mg tablet 20 mg PO DAILY 30 da ys #30 tabs 03/13/25 famotidine 20 mg tablet 20 mg PO BID 30 days #60 tab s 03/13/25 hydroxyzine HCl 25 mg tablet 25 mg PO TID PRN anxiety 30 days 03/13/25 #60 tabs metformin 500 mg tablet 500 mg PO BIDWMEAL 30 days # 60 tabs 03/13/25 olanzapine 5 mg tablet 5 mg PO DAILY PRN agitation 30 03/13/25 days #15 tabs risperidone 3 mg tablet 3 mg PO BEDTIME 30 days #30 tabs 03/13/25 mecobalamin (vitamin B12) 5,000 5,000 mcg PO DAILY 90 days #90 tabs 03/16/25 mcg disintegrating tablet Allergies Allergy/AdvReac Type Severity Reaction Status Date / Time pollen extracts (POLLEN) Allergy Mild RUNNY NOSE Verified 03/24/25 11:00 cat dander (CATS) Allergy Unknown UNKNOWN Verified 03/24/25 11:00 dog dander (DOGS) Allergy Unknown UNKNOWN Verified 03/24/25 11:00 mold (MOLD) Allergy Unknown UNKNOWN Verified 03/24/25 11:00 Review of Systems 2 Constitutional: Constitutional: Reports as per [facility] Past Medical History Medical History MDD (major depressive disorder), recurrent, severe, with psychosis Suicidal ideation Situational crisis Suicidal ideation Psychosis Chest pain Allergic rhinitis Insomnia Palpitations Vitamin D deficiency Chronic kidney disease, stage III (moderate) GERD without esophagitis Restrictive lung disease Obesity (BMI 30-39.9) Benign essential hypertension Pure hypercholesterolemia Diabetes mellitus Pulmonary emboli Chondrosarcoma Hyperlipidemia Chronic restrictive lung disease COPD (chronic obstructive pulmonary disease) Asthma Surgical History History of esophagogastroduodenoscopy (EGD) H/O colonoscopy History of inguinal hernia repair Hx of exploratory thoracotomy H/O tooth extraction Family History Family History Father Hypertension Kidney failure, acute Mother Lung cancer Family/Other Diabetes Social History Social History Household Members: Other Household Members Other:: Brother Housing: House Do you presently have visiting nurse or other home services: No Alcohol intake: former Patient Tobacco Use Status: Never used Tobacco e-Cigarette/Vaping Use: Never Used Second Hand Smoke Exposure: No Advance Directives: Yes Advance Directives on File: Yes Advance Directives Date on File: 10/25/15 service: No Current occupational status: unemployed Sexual orientation: Straight/Heterosexual Cognitive needs: No Hearing needs: No Vision needs: Yes (Glasses) Physical Exam ED Exam Exam: General: ?Appears of stated age ? Neck: Supple, no LAD, left-sided pectoralis and paraspinal tenderness ? ?CV: RRR, no obvious murmurs appreciated ? ?Resp: ?No wheezing rales rhonchi no stridor moving air well ? Abd: ?Bowel sounds are present, no tenderness no rebound no rigidity ? ?MSK: FROM, strength 5/5 all extremities, kyphotic posturing ? Skin: Warm, dry, intact, ? ?Neuro: ?Alert and oriented x3, moving upper and lower extremities symmetrically, no obvious facial asymmetry noted, cranial nerves 2-12 intact Vital Signs: Vital Signs - 24 hr 03/24/25 10:57 Temperature 97 F Pulse Rate 59 Respiratory Rate 16 Blood Pressure 147/67 H Pulse Oximetry 95 Oxygen Delivery Method Room Air BMI result Body Mass Index 39.5 Course Course Course Narrative: This is a rapid medical exam performed by Isaac Aldrich NP: Additional HPI, ROS, PE not included below will be deferred to primary provider. Patient is a 54y/o M presenting with complaint of chest pain and palpitations since 2am. HR 60s in triage. Plan: EKG, labs Medical Decision Making Medical Decision Making [facility] Narrative: 11:39 AM 03/24/2025 (Dr. Maxwell Ashton): Multiple ER visits for similar symptoms, has a history of cardiac issues we will obtain ECG cardiac enzyme x1, my suspicion this is likely musculoskeletal pain spasm versus additional of costochondritis, prior workup physical exam without any evidence for decreased lung sounds or CHF I do not feel that further imaging such as chest x-ray as CT is indicated at this time, he has no hypoxia tachycardia to suspect underlying PE, has not had forceful vomiting to suspect Boerhaave syndrome and he is not presenting with a severe onset of chest pain radiating to the back to suspect aortic dissection I reviewed chest x-ray from 03/20/2025 did not reveal pneumonia, pneumothorax or mediastinal widening at that point Differential Diagnosis Differential Diagnoses: The differential diagnosis associated with the presentation includes ( ACS, pneumothorax, aortic dissection, PE, Boerhaave syndrome) Admission/Observation Consideration of admission/observation: Escalation of care including admission/observation considered Lab Data MDM Lab Attestation statement: I reviewed the patient's lab results. 03/24/25 11:12 03/24/25 11:12 Labs: Lab Results 03/24/25 Range/Units 11:12 WBC 5.3 (4.8-10.8) X10*3/uL RBC 4.17 L (4.60-5.80) X10*6/uL Hgb 12.2 L (14.0-18.0) g/dl Hct 38.3 L (42.0-52.0) % MCV 91.8 (80.0-98.0) fL MCH 29.3 (27.0-33.0) pg MCHC 31.9 (31.0-36.0) g/dl RDW 14.8 (11.0-16.0) % Plt Count 191 (160-400) X10*3/uL MPV 10.7 (9.4-12.4) fL Immature Gran % (Auto) 0.2 (0.0-0.4) % Neut % (Auto) 71.1 (45-73) % Lymph % (Auto) 14.4 L (20-40) % [place] % (Auto) 7.6 (2-11) % Eos % (Auto) 6.3 H (0-4) % Baso % (Auto) 0.4 (0-2) % Lymph # (Auto) 0.8 L (1.2-4.9) X10*3/uL [place] # (Auto) 0.4 (0.1-1.2) X10*3/uL Eos # (Auto) 0.3 (0.0-0.4) X10*3/uL Baso # (Auto) 0.0 (0.0-0.2) X10*3/uL Abs Immat Gran (auto) 0.01 (0.00-0.03) X10*3/uL Absolute Neuts (auto) 3.7 (2.0-8.3) x10*3/uL Absolute Nucleated RBC 0.000 (0.0-0.012) X10*3/uL Nucleated RBC % (auto) 0.0 (0.0-0.2) /100WBC PT 13.2 (11.2-13.5) SEC INR 1.1 (0.9-1.1) Independent Interpretation I performed an independent interpretation of an: EKG External Record Review External record reviewed: Prior outpatient labs Tests considered The following testing was considered but not selected: chest x-ray Prescription Management I considered prescription management with: Pain Medication Chronic Conditions Patient?s care impacted by: Hypertension Social Determinants Patient?s care significantly limited by Social Determinants of Health including: Problems related to primary support group Discharge Plan Discharge Clinical Impression: Chest pain, precordial Instructions: Chest Pain (ED) Additional Instructions: Diagnosis and Initial Evaluation: You have been evaluated in the Emergency Department (ED) for chest pain. Based on your clinical assessment, electrocardiogram (ECG), and high-sensitivity cardiac troponin (hs-cTn) levels, you have been classified as low-risk for acute coronary syndrome (ACS) and myocardial infarction (PA). This means that your likelihood of having a heart attack or other serious heart condition in the next 30 days is very low.You has been seen for chest pain in the emergency department quite a few times, I would like you to make sure you have a follow up with the your primary care provider, read my discharge instructions as below Follow-Up Care: ? Primary Care Provider (PCP) or Cleaning Matron: It is important to follow up with your primary care provider or partition making machine operator within the next 14 to 30 days. This follow-up is crucial to ensure that any underlying conditions are managed appropriately and to discuss any further testing that may be needed. ? Notification: If you have an established PCP or partition making machine operator, they have been notified of your ED visit to facilitate continuity of care. Self-Care and Monitoring: ? Medications: Continue taking any prescribed medications as directed. If you have been given new medications, ensure you understand how and when to take them. ? Activity: Resume normal activities as tolerated. Avoid strenuous activities until you have discussed them with your healthcare provider. ? Diet: Maintain a heart-healthy diet, low in saturated fats, cholesterol, and sodium. Red Flags: Seek immediate medical attention if you experience any of the following: ? New or worsening chest pain ? Shortness of breath ? Dizziness or fainting ? Pain radiating to your arm, neck, or jaw ? Sweating, nausea, or vomiting Additional Testing: In some cases, outpatient testing such as a stress test or imaging may be recommended to further evaluate your heart health. Your follow-up provider will discuss this with you if necessary. Mental Health: Anxiety and stress can contribute to chest pain. Consider discussing any concerns with your healthcare provider, who may recommend screening for anxiety or depression and appropriate management strategies. Contact Information: If you have any questions or concerns before your follow-up appointment, please contact your healthcare provider or the ED where you were evaluated. Summary: You have been discharged from the ED with a low risk of serious heart conditions. Follow the instructions above, attend your follow-up appointments, and seek immediate care if you experience any red flags. Prescriptions: No Action albuterol sulfate [Ventolin HFA] 90 mcg/actuation HFA aerosol inhaler 2 puff inhalation Q4-6H PRN (Reason: for wheezing) Qty: 18 1RF clonidine HCl 0.1 mg Tablet 0.1 mg PO Q4H PRN (Reason: moderate anxiety) 30 Days Qty: 90 0RF Protocol: Hold for SBP< HOLD for SBP < : 90 bupropion HCl 300 mg Tablet Extended Release 24 Hr 300 mg PO DAILY 30 Days Qty: 30 0RF risperidone 3 mg tablet 3 mg PO BEDTIME 30 Days Qty: 30 0RF famotidine 20 mg Tablet 20 mg PO BID 30 Days Qty: 60 0RF Jardiance 10 mg Tablet 10 mg PO DAILY 30 Days Qty: 30 0RF metformin 500 mg tablet 500 mg PO BIDWMEAL 30 Days Qty: 60 0RF olanzapine 5 mg Tablet 5 mg PO DAILY PRN (Reason: agitation) 30 Days Qty: 15 0RF hydroxyzine HCl 25 mg tablet 25 mg PO TID PRN (Reason: anxiety) 30 Days Qty: 60 1RF escitalopram oxalate 20 mg tablet 20 mg PO DAILY 30 Days Qty: 30 0RF ondansetron HCl 4 mg tablet 4 mg PO Q8H PRN (Reason: nausea and vomiting) Qty: 12 0RF atorvastatin 40 mg tablet 40 mg PO DAILY Qty: 30 0RF thiamine HCl (vitamin B1) 100 mg tablet 100 mg PO BID Qty: 60 0RF tamsulosin 0.4 mg capsule 0.4 mg PO BEDTIME Qty: 30 0RF ferrous sulfate 325 mg (65 mg iron) tablet 325 mg PO DAILY Qty: 30 0RF losartan 25 mg tablet 25 mg PO DAILY Qty: 30 0RF insulin glargine [Lantus Solostar U-100 Insulin] 100 unit/mL (3 mL) insulin pen 15 unit subcut DAILY Qty: 15 0RF cholecalciferol (vitamin D3) 50 mcg (2,000 unit) capsule 50 mcg PO DAILY Qty: 30 0RF mecobalamin (vitamin B12) 5,000 mcg tablet,disintegrating 5,000 mcg PO DAILY 90 Days Qty: 90 1RF Referrals: Bon Arvizu MD [Primary Care Provider, Internal Medicine] - 2 weeks Clinical Impression: Chest pain, precordial Print Language: Polish
[2025-03-24 11:16] LABS: MANUAL DIFF FLAG NO
[2025-03-24 11:19] LABS: Hematocrit 38.3 % (42.0-52.0); Hemoglobin 12.2 g/dl (14.0-18.0); Imm Gran Abs Auto 0.01 X10*3/uL (0.00-0.03); Imm Gran Pct Auto 0.2 % (0.0-0.4); Lymphocytes Absolute Auto 0.8 X10*3/uL (1.2-4.9); Mean Corpuscular HGB Conc 31.9 g/dl (31.0-36.0); Mean Corpuscular Hemoglobin 29.3 pg (27.0-33.0); Mean Corpuscular Volume 91.8 fL (80.0-98.0); NRBC Abs Auto 0.000 X10*3/uL (0.0-0.012); NRBC Pct Auto 0.0 /100WBC (0.0-0.2); Platelet Count 191 X10*3/uL (160-400); Red Blood Count 4.17 X10*6/uL (4.60-5.80); White Blood Count 5.3 X10*3/uL (4.8-10.8)
[2025-03-24 11:28] LABS: INTERNATIONAL NORM RATIO 1.1 (0.9-1.1); Prothrombin Time 13.2 SEC (11.2-13.5)
[2025-03-24 11:35] LABS: Alanine Aminotransferase 14 U/L (0-40); Albumin Level 3.7 g/dL (3.5-5.0); Alkaline Phosphatase 103 U/L (39-117); Anion Gap 12 (12-20); Aspartate Amino Transferase 25 U/L (5-37); Blood Urea Nitrogen 10 mg/dL (9-16); Calcium 9.0 mg/dL (8.4-10.2); Carbon Dioxide 31 mmol/L (22-29); Chloride 104 mmol/L (96-108); Creatinine Clr Calc Pharmacy 76.9; Estimated Glomerular Filt Rate 54; Potassium 4.7 mmol/L (3.3-5.1); Sodium 142 mmol/L (135-145); Total Protein 6.7 g/dL (6.5-8.0)
[2025-03-24 11:42] LABS: Troponin-I High Sensitivity 5.8 ng/L (<3.5-35.0)
[2025-03-24 12:31] VITALS: BP 147/67; PULSE 59; RESP 16; TEMP 36.1; O2SAT 95
--- OUTSIDE RECORDS SUMMARY | 2025-03-24 16:23 | XMS_ITS | Clinical Summary ---
Author Organization [facility] Address [address] [place] [address] Care Team Providers Care Php Magento Developer Name Role Phone Unavailable Primary Care Provider [...]
--- OUTSIDE RECORDS SUMMARY | 2025-03-24 16:23 | XMS_ITS | Clinical Summary ---
Author Organization [employer] [facility] Address [address] [place] [address] Care Team Providers Care Machine Bander And Cellophaner Helper Name Role Phone Unavailable Primary Care [...] Description 02/01/2025 10:00 AM EDT Office Visit [facility] [address] [place] [address] Perez Romero DDS Dental abscess (Primary Dx); [...] Description 04/21/2025 9:30 AM EST Office Visit [facility] [address] [place] [address] Perez Romero, DDS [address] [place], [place] [id number] Health Maintenance Due Date Last Done Comments [...] (2 of 2 - PCV) 2020 10/04/2015 COVID-19 Vaccine (4 - season) 2025 03/21/2024, 06/26/2020, 06/05/2020 Zoster Vaccines (2 of 2) 02/16/2025 12/22/2024 [...] Most Recently Relevant to Health Maintenance Insurance [facility] MEDICAID STAND ADULT
--- OUTSIDE RECORDS SUMMARY | 2025-03-24 16:23 | XMS_ITS | Encounter Summary ---
Author Organization [facility] Address [address] [place] [address] Care Team Providers Care Exploration Geologist Name Role Phone Unavailable Primary Care Provider Unavailabl e Encounter Details Date Type Department Care Team (Late st Contact Info) Description 12/23/2021 Scanned Document CTGI [facility] [address] [place] [phone] Gastroenterology, Scan Social History Tobacco Use Types [...]
--- OUTSIDE RECORDS SUMMARY | 2025-03-24 16:23 | XMS_ITS | Clinical Summary ---
Author Organization [facility] Address [address] [place] [address] [address] TAN[address] NEPTALI DECKER [address] Phone Care Team Providers Care Rebar Worker Name Role Phone Bon Arvizu MD Primary Care Provider +1- [phone] Allergies No known active allergies Medications Ventolin [...] Orders Only [facility] [address] [place] [address] Tashi Bonner MD Stage 3b chronic kidney disease (HCC) 02/02/2025 1:30 PM EDT Office Visit [facility] [address] [place] [address] Tashi Bonner MD Stage 3a chronic kidney disease (HCC) (Primary Dx); Type 2 diabetes mellitus with diabetic chronic kidney disease (HCC) 01/23/2025 Telephone [facility] [address] [address] Tashi Bonner MD 01/03/2025 Orders Only [facility] [address] [address] Tashi Bonner MD from Last 3 Months [...] Visit [facility] [address] [place] [address] Tashi Bonner MD [address] [facility] [address] [place] [address] Health Maintenance Due Date Last Done Comments [...] order comments [place] [address] * (ABNORMAL) Albumin, urine, random (01/03/2025 9:57 [...] URINE ORDERABLES Final Result Performing Organization Address [facility] Co de Phone Number [facility] See order comments [place] [address] * (ABNORMAL) Urinalysis with microscopic (01/03/2025 9:57 AM EDT) Color Urine Yellow See orde r comments Appearance Urine Clear See order comments pH Urine >=9.0 5.0 - 9.0 See order comments Glucose Urine Negative Negative mg/dL See order comments Blood, Urine Negative Negative See ord er comments Specific [place] Urine 1.010 1.005 - 1.025 See order [...] EDT 01/03/2025 9:57 AM EDT us Tashi oBnner MD LAB URINE ORDERABLES Final Result Performing Organization Address [facility] Co de Phone Number [facility] See order comments [place] [address] * PTH, Intact (01/03/2025 9:39 AM EDT) Pathologist [facility] Parathyroid Hormone, Intact 51.4 8.7 - 77.1 pg/mL See order comments 01/03/2025 9:39 AM EDT 01/03/2025 9:39 AM EDT Tashi Bonner MD LAB BLOOD ORDERABLES Final Result Performing Organization Address [facility] de Phone Number [place] See order comments [place] [address] * Cystatin C w/GFR (01/03/2025 9:39 AM EDT) [facility] Cystatin C 2.09 See order comments Comment: REFRENCE RANGE 0.52-1.23 MG/L Performing Sites [facility], [address], [place], [place] Block Engraver: Malik Salmeron M.D.,PhD eGFR by Cystatin C 30 See order comments Comment: REFERENCE RANGE:>=60 mL/min/1.73mE2 Performing Sites [facility], [address], [place], [place] Block Engraver: Malik Salmeron M.D.,PhD 01/03/2025 9:39 AM EDT 01/03/2025 9:39 AM EDT Tashi Bonner MD LAB BLOOD ORDERABLES Final Result Performing Organization Address [facility] de Phone Number [place] See order comments [place] [address] * Iron Panel (Fe, TIBC, TSAT) (01/03/2025 9:39 AM EDT) Pathologist [facility] Iron 50 45 - 160 mcg/dL See order comments TIBC 230 228 - 428 mcg/dL See order comments Iron Saturation (TSat) 22 15 - 50 % See order comments UIBC 180 ug/dL See order comments 01/03/2025 9:39 AM EDT 01/03/2025 9:39 AM EDT us Tashi Bonner MD LAB BLOOD ORDERABLES Final Result Performing Organization Address [facility] de Phone Number [place] See order comments [place] [address] * Vitamin D 25 Hydroxy (01/03/2025 9:39 [...] BLOOD ORDERABLES Final Result Performing Organization Address [facility] Co de Phone Number [place] See order comments [place] [address] * (ABNORMAL) CBC and Differential (01/03/2025 9:39 [...] order comments [place] [address] * (ABNORMAL) Uric Acid (01/03/2025 9:39 AM EDT) Uric Acid 8.0(H) 3.4 - 7.0 mg/dL See order comments 01/03/2025 9:39 AM EDT 01/03/2025 9:39 AM EDT Tashi Bonner MD LAB BLOOD ORDERABLES Final Result Performing Organization Address [facility] de Phone Number [place] See order comments [place] [address] * Phosphorus (01/03/2025 9:39 AM EDT) Pathologist [facility] Phosphorus, Serum 3.0 2.7 - 4.5 mg/dL See order comments 01/03/2025 9:39 AM EDT 01/03/2025 9:39 AM EDT Tashi Bonner MD LAB BLOOD ORDERABLES Final Result Performing Organization Address [facility] Phone Number [place] See order comments [place] [address] * (ABNORMAL) Magnesium (01/03/2025 9:39 AM EDT) Pathologist [facility] Magnesium 1.5(L) 1.6 - 2.6 mg/dL See order comments 01/03/2025 9:39 AM EDT 01/03/2025 9:39 AM EDT Tashi Bonner MD LAB BLOOD ORDERABLES Final Result Performing Organization Address [facility] de Phone Number [facility] See order comments [place] [address] * (ABNORMAL) Hemoglobin A1c (01/03/2025 9:39 AM EDT) Pathologist [facility] Hemoglobin A1C 6.8(H) <6.0 % See o [...] average glucose, using the formula of the R4B-Vtrxhsv Average Glucose study (ADAG), Diabetes Care, Vol.31,#8, 2007 01/03/2025 9:39 AM EDT 01/03/2025 9:39 AM EDT us Tashi Bonner MD LAB BLOOD ORDERABLES Final Result Performing Organization Address [facility] Co de Phone Number [place] See order comments [place] [address] * Ferritin (01/03/2025 9:39 AM EDT) Ferritin 39 20 - 250 ng/mL See order comments 01/03/2025 9:39 AM EDT 01/03/2025 9:39 AM EDT us Tashi Bonner MD LAB BLOOD ORDERABLES Final Result Performing Organization Address [facility] Co de Phone Number [place] See order comments [place] [address] * (ABNORMAL) Basic Metabolic Panel (01/03/2025 9:39 [...] order comments [place] [address] from Last 3 Months Insurance Care Teams Rebar Worker Relationship Specialty Start Date End Date Bon Arvizu MD [address] [facility] [address] [place] [id number] PCP - General Internal Medicine 06/04/22
== END 2025-03-24 12:32 | disposition home or self-care (01) ==
PROVIDERS: Registered Nurse Emergency; Emergency Provider Emergency Medicine; PCP Internal Medicine
DX: R07.2 Precordial pain (principal); Z63.9 Problem related to primary support group, unspecified
CPT/HCPCS: 36415; 80053; 84484; 85025; 85610; 99283; 99284

== ENCOUNTER 2025-04-12 09:09 | Outpatient (REF) | payer OTHER, SELFPAY ==
--- NOTE | ~2025-04-12 | XR_ITS ---
EXAMINATION: XR SHOULDER, LEFT CLINICAL INFORMATION: M25.512 - Pain in left shoulder COMPARISON: X-ray 07/02/2024 TECHNIQUE: AP external rotation, Grashey, scapular Y, and axillary views of the left shoulder. FINDINGS: No acute fracture or dislocation. Redemonstrated chronic healed fracture of the left third rib. No significant joint space narrowing or marginal osteophytes. No abnormal soft tissue calcification. XR/XR shoulder LT min 2V IMPRESSION: No acute findings Electronically signed by: Norbert Brown MD 04/12/2025 03:20 PM EST
== END 2025-04-12 09:10 | disposition home or self-care (01) ==
LOC: HO.XRAY 09:09
PROVIDERS: PCP Internal Medicine; Visit Provider Student in an Organized Health Care Education/Training Program
DX: M25.512 Pain in left shoulder (principal)
CPT/HCPCS: 73030

== ENCOUNTER 2025-04-14 21:32 | Emergency (ER) | payer OTHER, SELFPAY ==
--- NOTE | 2025-04-14 | ECG_ITS ---
Test Reason : TACHYCARDIA Blood Pressure : */* mmHG Vent. Rate : 109 BPM Atrial Rate : 109 BPM P-R Int : 132 ms QRS Dur : 96 ms QT Int : 336 ms P-R-T Axes : 28 -3 79 degrees QTcB Int : 452 ms Sinus tachycardia Minimal voltage criteria for LVH, may be normal variant ( R in aVL ) Borderline ECG When compared with ECG of 20-Mar-2025 13:23, No significant change was found Referred By: Generic ED Physician Electronically Signed By: BRIGITTE RASMUSSEN
--- NOTE | ~2025-04-14 | XR_ITS ---
CLINICAL HISTORY: sob 1 view chest x-ray. Comparison: CR/SR - XR CHEST 2 VIEWS - 03/20/25 13:59 EST Findings: This examination is mildly limited by multiple structures overlying the patient. Minimal to mild ill-defined opacities are identified within the left lung. No focal consolidation identified within the right lung. No pneumothorax or significant pleural effusion visualized. Heart size normal. Levocurvature present at the thoracic spine. Chronic appearing left rib deformities present. Impression: 1. Mildly limited examination related to structures overlying the patient. There are minimal to mild ill-defined opacities throughout the left lung which may represent scattered atelectasis, scarring, or infiltrates. This document has been electronically signed by: Madhu Canales MD on 04/15/2025 00:42:00
[2025-04-14 21:41] VITALS: BP 148/78; BP 180/81; PULSE 102; PULSE 113; RESP 20; TEMP 36.8; O2SAT 94; O2SAT 98; BMI 40.2
[2025-04-14] MEDS: Albuterol Sulfate 2.5 MG, Albuterol Sulfate (0.083%) 2.5 MG 5 MG INHALE (21:51)
[2025-04-14 21:55] VITALS: PULSE 103; RESP 21; O2SAT 99
--- OUTSIDE RECORDS SUMMARY | 2025-04-14 22:08 | XMS_ITS | Clinical Summary ---
Author Organization [facility] Address [address] [place] [address] [address] TANNER NEPTALI DECKER [address] Phone Care Team Providers Care Architectural Intern Name Role Phone Bon Arvizu MD Primary Care Provider +1- [phone] Allergies No known active allergies Medications Ventolin [...] Orders Only [facility] [address] [place] [address] Tashi Bonner MD Stage 3b chronic kidney disease (HCC) 02/02/2025 1:30 PM EDT Office Visit [facility] [address] [place] [address] Tashi Bonner MD Stage 3a chronic kidney disease (HCC) (Primary Dx); Type 2 diabetes mellitus with diabetic chronic kidney disease (HCC) 01/23/2025 Telephone [facility] [address] [phone] Tashi Bonner MD from Last 3 Months [...] Visit [facility] [address] [place] [address] Tashi Bonner MD [address] [facility] [address] [place] [address] Health Maintenance Due Date Last Done Comments [...] Procedure Name Priority Date/Time Associated Diagnosis Comments HEMOGLOBIN A1C Routine 01/03/2025 9:39 AM EDT from Last 3 Months or Most Recently Relevant to Health Maintenance Results * (ABNORMAL) Hemoglobin A1c (01/03/2025 9:39 AM [...] average glucose, using the formula of the D3C-Egymfhk Average Glucose study (ADAG), Diabetes Care, Vol.31,#8, 2007 01/03/2025 9:39 AM EDT 01/03/2025 9:39 AM EDT us Tashi Bonner MD LAB BLOOD ORDERABLES Final Result [facility] See order comments [place] [address] from Last 3 Months or Most Recently Relevant to Health Maintenance Insurance Care Teams Architectural Intern Relationship Specialty Start Date End Date Bon Arvizu MD [address] [facility] [address] [place] [address] PCP - General Internal Medicine 06/04/22
--- OUTSIDE RECORDS SUMMARY | 2025-04-14 22:08 | XMS_ITS | Clinical Summary ---
Author Organization [facility] Address [address] [facility] [address] [place] [address] Care Team Providers Care Health Type Technician Name Role Phone Unavailable Primary Care [...] 02/01/2025 10:00 AM EDT Office Visit [facility] [address] [place] [address] Perez Romero DDS Dental abscess (Primary Dx); [...] Description 04/21/2025 9:30 AM EST Office Visit [facility] [address] [place] [address] Perez Romero, DDS [address] [place], [place] [id number] Health Maintenance Due Date Last Done Comments [...] Most Recently Relevant to Health Maintenance Insurance [facility] MEDICAID STAND ADULT
--- OUTSIDE RECORDS SUMMARY | 2025-04-14 22:08 | XMS_ITS | Clinical Summary ---
Author Organization [facility] Address [address] [place] [address] Care Team Providers Care City Collector Name Role Phone Unavailable Primary Care Provider [...]
--- OUTSIDE RECORDS SUMMARY | 2025-04-14 22:08 | XMS_ITS | Encounter Summary ---
Author Organization [facility] Address [address] [place] [id number] Care Team Providers Care Sign Language Teacher Name Role Phone Unavailable Primary Care Provider Unavailabl e Encounter Details Date Type Department Care Team (Late st Contact Info) Description 12/23/2021 Scanned Document [facility] [address] [place] [phone] Gastroenterology, Scan Social History Tobacco Use Types [...]
--- NOTE | 2025-04-14 22:09 | ED_ITS ---
HPI - Pediatric SOB/Dyspnea General Chief Complaint: Dyspnea Stated Complaint: SOB shaky x2hrs & BGL 254 o2 duoneb Time Seen by Provider: 04/14/25 21:59 Source: patient, EMS, RN notes reviewed and old records reviewed Mode of arrival: EMS Limitations: no limitations History of Present Illness ED Provider: Kathie Blair PA-C HPI Narrative: The patient was brought in by ambulance after experiencing shortness of breath (SOB) at home and shaking that began approximately 1?2 hours after taking clonidine 0.1 mg for anxiety (last dose estimated around 13:00). SOB and laborious breathing had been present for several days and improved with in-ED breathing treatments (oxygen saturation improved from 94 % to 100 % on room air). The patient reports persistent cough (sometimes dry, sometimes wet) that typically signals an asthma flare, as well as occasional wheezing and increased rescue-inhaler use (every 4?6 h, sometimes more than once in that interval) over the past 1.5 weeks, attributed to windy weather. Denies current tyler SOB but notes breathing still feels ?laborious? and not yet back to baseline. Additional symptoms include chills, feeling cold, diaphoresis (including at night), dizziness/head ?spinning,? mild intermittent nausea, and cold hands. Denies vomiting or diarrhea. Reports mild chest pain of unclear etiology and left shoulder pain from a suspected muscle strain (X-ray done by PCP last week). Neck/chest wound present ~1 year with recent oozing and pruritus; followed by wound care and uses mesh dressing, advised not to scratch. States does not feel comfortable being home alone when shaking episodes occur. No prior similar episodes. Patient reports chronic difficulty swallowing pills and usually takes medicine with food to help swallow. Review of Systems: * Constitutional: Chills, diaphoresis. No reported fever. * Respiratory: SOB (improved after treatment), cough (dry/wet), occasional wheezing. * Cardiovascular: Mild chest pain. * ENT: Nasal congestion. * Gastrointestinal: Mild intermittent nausea; no vomiting or diarrhea. * Musculoskeletal: Left shoulder pain (muscle strain). * Integumentary: Chronic chest wound with pruritus and oozing. * Neurologic: Dizziness/head ?spinning.? * Psychiatric: Anxiety; recent shaking episode after clonidine use. MD complaint: cough Related Data Previous Rx's ?Medication ?Instructions ?Recorded ondansetron HCl 4 mg tablet 4 mg PO Q8H PRN nausea and 01/06/25 vomiting #12 tabs atorvastatin 40 mg tablet 40 mg PO DAILY #30 tabs 01/09 11/02 cholecalciferol (vitamin D3) 50 50 mcg PO DAILY #30 ca ps 01/24/25 mcg (2,000 unit) capsule ferrous sulfate 325 mg (65 mg 325 mg PO DAILY #30 tabs 01/24/25 iron) tablet insulin glargine 100 unit/mL (3 15 unit (0.15 mL) subc ut DAILY #15 01/24/25 mL) subcutaneous pen (Lantus mL Solostar U-100 Insulin) losartan 25 mg tablet 25 mg PO DAILY #30 tabs 01/09 11/02 tamsulosin 0.4 mg capsule 0.4 mg PO BEDTIME #30 caps 0 01/24/25 thiamine HCl (vitamin B1) 100 mg 100 mg PO BID #60 tab s 01/24/25 tablet bupropion HCl 300 mg 24 hr tablet, 300 mg PO DAILY 30 days #30 tabs 03/13/25 extended release clonidine HCl 0.1 mg tablet 0.1 mg PO Q4H PRN moderate anxiety 03/13/25 30 days #90 tabs empagliflozin 10 mg tablet 10 mg PO DAILY 30 days #30 tabs 03/13/25 (Jardiance) escitalopram oxalate 20 mg tablet 20 mg PO DAILY 30 da ys #30 tabs 03/13/25 famotidine 20 mg tablet 20 mg PO BID 30 days #60 tab s 03/13/25 hydroxyzine HCl 25 mg tablet 25 mg PO TID PRN anxiety 30 days 03/13/25 #60 tabs metformin 500 mg tablet 500 mg PO BIDWMEAL 30 days # 60 tabs 03/13/25 olanzapine 5 mg tablet 5 mg PO DAILY PRN agitation 30 03/13/25 days #15 tabs risperidone 3 mg tablet 3 mg PO BEDTIME 30 days #30 tabs 03/13/25 mecobalamin (vitamin B12) 5,000 5,000 mcg PO DAILY 90 days #90 tabs 03/16/25 mcg disintegrating tablet gauze #30 ea 04/03/25 silver sulfadiazine 1 % topical 1 appl topical DAILY w ound 04/03/25 cream infection #50 grams tape #1 ea 11/24/25 albuterol sulfate 90 mcg/actuation 2 puff inhalation Q 4-6H PRN for 04/10/25 aerosol inhaler (Ventolin HFA) wheezing #18 ea naproxen 500 mg tablet 500 mg PO BID pain #20 tabs 04/12/25 doxycycline hyclate 100 mg capsule 100 mg PO BID #14 c aps 04/15/25 prednisone 20 mg tablet 40 mg (2 x 20 mg) PO DAILY # 10 tabs 04/15/25 Allergies Allergy/AdvReac Type Severity Reaction Status Date / Time pollen extracts (POLLEN) Allergy Mild RUNNY NOSE Verified 04/17/25 06:18 cat dander (CATS) Allergy Unknown UNKNOWN Verified 04/17/25 06:18 dog dander (DOGS) Allergy Unknown UNKNOWN Verified 04/17/25 06:18 mold (MOLD) Allergy Unknown UNKNOWN Verified 04/17/25 06:18 Pulmonary Results: 2 Pulmonary Function Test 03/18/21 [facility] Past Medical History Medical History MDD (major depressive disorder), recurrent, severe, with psychosis Suicidal ideation Situational crisis Suicidal ideation Psychosis Chest pain Allergic rhinitis Insomnia Palpitations Vitamin D deficiency Chronic kidney disease, stage III (moderate) GERD without esophagitis Restrictive lung disease Obesity (BMI 30-39.9) Benign essential hypertension Pure hypercholesterolemia Diabetes mellitus Pulmonary emboli Chondrosarcoma Hyperlipidemia Chronic restrictive lung disease COPD (chronic obstructive pulmonary disease) Asthma Surgical History History of esophagogastroduodenoscopy (EGD) H/O colonoscopy History of inguinal hernia repair Hx of exploratory thoracotomy H/O tooth extraction Family History Family History Father Hypertension Kidney failure, acute Mother Lung cancer Family/Other Diabetes Social History Social History Household Members: Other Household Members Other:: Brother Housing: House Do you presently have visiting nurse or other home services: No Alcohol intake: former Patient Tobacco Use Status: Never used Tobacco Smoked in Last 30 Days: No e-Cigarette/Vaping Use: Never Used Second Hand Smoke Exposure: No Use of substances other than those prescribed or required for medical reasons: No Advance Directives: Yes Advance Directives on File: Yes Advance Directives Date on File: 10/25/15 service: No Current occupational status: unemployed Sexual orientation: Straight/Heterosexual Cognitive needs: No Hearing needs: No Vision needs: Yes (Glasses) Pediatric Exam 2 Narrative: Physical exam: General: Appears in no acute distress, appears well nourished body habitus is obese appears stated age. No septic or ill-appearing. Vitals reviewed normal, PMH/Social and Surgical hx reviewed including allergies and current medications. - reviewed for prior visits here and read as it pertains to similar CC. Head: Normocephalic, no obvious trauma or skin lesions noted. Eyes: EOMI ENMT: moist oral mucosa Neck: trachea midline Cardiovascular: peripheral perfusion normal, Regular heart rate Respiratory: no respiratory distress, lungs clear to ausculation b/l, no chest wall tenderness, chronic wound managed by wound care 3x a week, see image above( not worse per patient) Abdomen: obese nontender Extremities: warm and moving without difficulty Psych: Cooperative Neuro: Alert and oriented. General: Limitations: no limitations General appearance: well-appearing and other (unkept appearance) Medications Administered Discontinued Medications Generic Name Dose Route Start Last Admin Trade Name Freq PRN Reason Stop Dose Admin Albuterol Sulfate 2.5 mg/ 5 mg 04/14/25 21:50 04/14/25 21:51 Albuterol Sulfate 2.5 mg INHALE 04/14/25 21:51 5 mg ONCE ONE Administration Medical Decision Making Medical Decision Making MDM Narrative: . Middle-aged patient with a history of asthma, anxiety, normocytic anemia, and chronic chest wound presented with several days of acute respiratory symptoms (shortness of breath, cough, wheezing, increased rescue inhaler use) and a shaking episode occurring 1?2 hours after taking clonidine for anxiety. Additional symptoms included chills, diaphoresis, dizziness, mild intermittent nausea, and cold hands. The patient expressed concern about safety at home during shaking episodes. Differential Diagnosis: The primary considerations included asthma exacerbation, infectious bronchitis, medication reaction (clonidine), anxiety-related symptoms, and less likely pulmonary embolism (PE) and congestive heart failure (CHF). PE was ruled out by a negative D-dimer, and CHF was considered unlikely based on proBNP levels and clinical presentation. Diagnostic Data Review: * CBC revealed stable normocytic anemia (Hgb 11.8 g/dL, Hct 36.6%), not meeting transfusion criteria. * Chest X-ray showed minimal to mild ill-defined opacities in the left lung, possibly representing atelectasis, scarring, or infiltrates. * D-dimer was negative, ruling out PE. * proBNP was 253.7 pg/mL, not suggestive of CHF. * Clinical improvement was noted after ED breathing treatments, with SpO2 improving from 94% to 100% on room air. Justification for Management: * Empiric antibiotics (doxycycline) and steroids (prednisone) were initiated for possible infectious bronchitis and asthma exacerbation, consistent with current guidelines for moderate asthma exacerbation and respiratory illness. * No transfusion was indicated for normocytic anemia, as the patient was asymptomatic and did not meet criteria for transfusion. * Continuation of wound care regimen for chronic chest wound, with instructions to avoid scratching and follow up as scheduled. * Safety planning for anxiety and shaking episodes, including recommendations for social support or supervision at home and return precautions for worsening symptoms. Complexity: The case is of moderate complexity due to the presence of multiple chronic conditions (asthma, anemia, chronic wound, anxiety), acute respiratory symptoms, diagnostic uncertainty, and the need for medication management and safety planning. Differential Diagnosis Differential Diagnoses: The differential diagnosis associated with the presentation includes Admission/Observation Consideration of admission/observation: Escalation of care including admission/observation considered Lab Data MDM Lab Attestation statement: I reviewed the patient's lab results. 04/15/25 00:23 04/14/25 22:38 Labs: Lab Results 04/14/25 04/14/25 04/15/25 Range/Units 22:38 22:38 00:23 WBC 7.3 (4.8-10.8) X10*3/uL RBC 4.07 L (4.60-5.80) X10*6/uL Hgb 11.8 L (14.0-18.0) g/dl Hct 36.6 L (42.0-52.0) % MCV 89.9 (80.0-98.0) fL MCH 29.0 (27.0-33.0) pg MCHC 32.2 (31.0-36.0) g/dl RDW 14.3 (11.0-16.0) % Plt Count 237 (160-400) X10*3/uL MPV 10.7 (9.4-12.4) fL Immature Gran % (Auto) 0.1 (0.0-0.4) % Neut % (Auto) 79.2 H (45-73) % Lymph % (Auto) 10.3 L (20-40) % Greene % (Auto) 7.8 (2-11) % Eos % (Auto) 2.2 (0-4) % Baso % (Auto) 0.4 (0-2) % Lymph # (Auto) 0.8 L (1.2-4.9) X10*3/uL Greene # (Auto) 0.6 (0.1-1.2) X10*3/uL Eos # (Auto) 0.2 (0.0-0.4) X10*3/uL Baso # (Auto) 0.0 (0.0-0.2) X10*3/uL Abs Immat Gran (auto) 0.01 (0.00-0.03) X10*3/uL Absolute Neuts (auto) 5.8 (2.0-8.3) x10*3/uL Absolute Nucleated RBC 0.000 (0.0-0.012) X10*3/uL Nucleated RBC % (auto) 0.0 (0.0-0.2) /100WBC D-Dimer High Sensitivty < 150 NG/ML Sodium 141 (135-145) mmol/L Potassium 4.3 (3.3-5.1) mmol/L Chloride 103 (96-108) mmol/L Carbon Dioxide 28 (22-29) mmol/L Anion Gap 14 (12-20) BUN 14 (9-16) mg/dL Creatinine 1.51 H (0.5-1.4) mg/dL Estim Creat Clear Calc 70.4 Estimated GFR 48 Random Glucose 190 H (60-115) mg/dL Calcium 10.0 D (8.4-10.2) mg/dL Total Bilirubin 0.4 (0.0-1.0) mg/dL AST 15 (5-37) U/L ALT 9 (0-40) U/L Alkaline Phosphatase 114 (39-117) U/L Troponin I High Sens 4.1 (<3.5-35.0) ng/L NT-Pro-B Natriuret Pep 253.7 Cancelled (<300) pg/mL Total Protein 7.1 (6.5-8.0) g/dL Albumin 3.9 (3.5-5.0) g/dL Influenza Type A (PCR) NEGATIVE (Negative) Influenza Type B (PCR) NEGATIVE (Negative) RSV RNA Qual (PCR) NEGATIVE (Negative) SARS-CoV-2 RNA (RT-PCR) NEGATIVE (Negative) Independent Interpretation I performed an independent interpretation of an: EKG and Plain X-Ray Interpretation: EKG : 110 Sinus tachy without obvious evidence of malignant arrhythmia or ischemia, CXR portable Ap view, limited cannot rule out LLL infiltrate vs scarring Radiology Impression Discussion of test interpretation with radiology: I have reviewed the radiologist's reading. Prescription Management I considered prescription management with: Antibiotic and Other Chronic Conditions Patient?s care impacted by: Other Social Determinants Patient?s care significantly limited by Social Determinants of Health including: Other Social Determinant of Health Discharge Plan Discharge Clinical Impression: Pneumonia, Asthma exacerbation Patient Disposition: Home, Self-Care Instructions: Asthma (DC), Pneumonia (ED) Additional Instructions: Discharge Instructions Your Visit Summary You came to the Emergency Department today because you were having trouble breathing and experiencing shaking after taking your anxiety medicine (clonidine). You have been having breathing problems for several days, with cough and wheezing that got worse over the past 1-2 weeks. After receiving breathing treatments in the ED, your oxygen levels improved from 94% to 100%, and your breathing got better. Your Diagnosis: You have an asthma flare-up (also called an asthma exacerbation) that may also involve a respiratory infection (bronchitis). The chest X-ray showed some mild changes in your left lung that could be from infection or asthma. Your Medications Doxycycline (antibiotic): - Take 100 mg (one pill) twice a day for 7 days - Take it with a full glass of water to help you swallow and prevent stomach upset - You can take this with food or milk if needed - food does not significantly affect how this medicine works - Finish all the medicine even if you start feeling better - Avoid prolonged sun exposure - this medicine can make you more sensitive to sunlight. Use sunscreen and protective clothing - Common side effects may include upset stomach or diarrhea Prednisone (steroid for your asthma): - Take 40 mg (as prescribed) once daily for 5 days - Take it in the morning with food to help prevent stomach upset - Common side effects include trouble sleeping, increased appetite, heartburn, and mood changes - Do not stop this medicine early - finish all 5 days as directed Your Asthma Management Using Your Rescue Inhaler: - Continue using your rescue inhaler (albuterol) as needed when you have symptoms - Important warning signs: If you need to use your rescue inhaler more than every 4 hours, or if your breathing is getting worse despite using it, seek medical care - Make sure you are using your inhaler correctly - if you're not sure about your technique, ask your doctor or pharmacist to show you Caring for Your Chest Wound - Continue using your mesh dressing as you have been doing - Do not scratch the wound, even if it itches - Keep your wound care appointments as scheduled - If the wound shows signs of infection (increased redness, warmth, pus, or worsening pain), contact your wound care clinic or doctor When to Seek Medical Attention Call 911 or return to the Emergency Department immediately if you have: - Severe difficulty breathing or shortness of breath that is getting worse - Breathing so hard that you cannot speak in full sentences - Bluish color to your lips or face - Chest pain that is severe or getting worse - Feeling confused or very dizzy - Fever over 101?F (38.3?C) - Coughing up blood Contact your doctor if you have: - Breathing problems that are not improving after 2-3 days of treatment * a new fever * Cough that is getting worse * Another episode of shaking or dizziness after taking your clonidine * Severe diarrhea (watery or bloody stools) - this can happen with antibiotics[ 1] Other Important Home Care Instructions * Rest and hydration:?Drink plenty of fluids (water, juice, warm tea) to help thin mucus and stay hydrated * Avoid triggers:?Try to avoid things that make your asthma worse, such as smoke, strong odors, cold air, or allergens * Follow up with your primary care doctor?within 1-2 weeks to make sure you are recovering well and to discuss your anemia (low red blood cell count) and any medication adjustments * Safety at home:?Since you mentioned feeling uncomfortable being home alone during shaking episodes, try to have someone stay with you or check on you regularly until you are feeling better * Difficulty swallowing pills:?Continue taking your medicines with food as you usually do to help with swallowing Questions? If you have any questions about these instructions or your care, please contact your primary care doctor or call the hospital. Prescriptions: New doxycycline hyclate 100 mg capsule 100 mg PO BID Qty: 14 0RF prednisone 20 mg tablet 40 mg PO DAILY Qty: 10 0RF No Action albuterol sulfate [Ventolin HFA] 90 mcg/actuation HFA aerosol inhaler 2 puff inhalation Q4-6H PRN (Reason: for wheezing) Qty: 18 1RF clonidine HCl 0.1 mg Tablet 0.1 mg PO Q4H PRN (Reason: moderate anxiety) 30 Days Qty: 90 0RF Protocol: Hold for SBP< HOLD for SBP < : 90 bupropion HCl 300 mg Tablet Extended Release 24 Hr 300 mg PO DAILY 30 Days Qty: 30 0RF risperidone 3 mg tablet 3 mg PO BEDTIME 30 Days Qty: 30 0RF famotidine 20 mg Tablet 20 mg PO BID 30 Days Qty: 60 0RF Jardiance 10 mg Tablet 10 mg PO DAILY 30 Days Qty: 30 0RF metformin 500 mg tablet 500 mg PO BIDWMEAL 30 Days Qty: 60 0RF olanzapine 5 mg Tablet 5 mg PO DAILY PRN (Reason: agitation) 30 Days Qty: 15 0RF hydroxyzine HCl 25 mg tablet 25 mg PO TID PRN (Reason: anxiety) 30 Days Qty: 60 1RF escitalopram oxalate 20 mg tablet 20 mg PO DAILY 30 Days Qty: 30 0RF ondansetron HCl 4 mg tablet 4 mg PO Q8H PRN (Reason: nausea and vomiting) Qty: 12 0RF atorvastatin 40 mg tablet 40 mg PO DAILY Qty: 30 0RF thiamine HCl (vitamin B1) 100 mg tablet 100 mg PO BID Qty: 60 0RF tamsulosin 0.4 mg capsule 0.4 mg PO BEDTIME Qty: 30 0RF ferrous sulfate 325 mg (65 mg iron) tablet 325 mg PO DAILY Qty: 30 0RF losartan 25 mg tablet 25 mg PO DAILY Qty: 30 0RF insulin glargine [Lantus Solostar U-100 Insulin] 100 unit/mL (3 mL) insulin pen 15 unit subcut DAILY Qty: 15 0RF cholecalciferol (vitamin D3) 50 mcg (2,000 unit) capsule 50 mcg PO DAILY Qty: 30 0RF mecobalamin (vitamin B12) 5,000 mcg tablet,disintegrating 5,000 mcg PO DAILY 90 Days Qty: 90 1RF silver sulfadiazine 1 % cream 1 appl topical DAILY Qty: 50 0RF Rx Instructions: apply a 1.5 mm thickness (DME) gauze 4x4 See Rx Instructions .Route .MEDSUPPLY Qty: 30 3RF Rx Instructions: As directed (DME) tape 2 in See Rx Instructions .Route .MEDSUPPLY Qty: 1 3RF Rx Instructions: As directed naproxen 500 mg tablet 500 mg PO BID Qty: 20 0RF Referrals: Bon Arvizu MD [Primary Care Provider, Internal Medicine] Clinical Impression: Asthma exacerbation; Pneumonia Interventions: ED Discharge Assessment Last Done: 04/15/25 02:57 Discharge Date/Time: 04/15/25 03:00 Print Language: Nauruan
[2025-04-14 22:27] VITALS: BP 128/61; PULSE 109; RESP 19; TEMP 36.6; O2SAT 95
[2025-04-14 22:28] VITALS: BP 122/65; PULSE 93; RESP 20; TEMP 36.5; O2SAT 94
[2025-04-14 23:07] LABS: Alanine Aminotransferase 9 U/L (0-40); Albumin Level 3.9 g/dL (3.5-5.0); Alkaline Phosphatase 114 U/L (39-117); Anion Gap 14 (12-20); Aspartate Amino Transferase 15 U/L (5-37); Blood Urea Nitrogen 14 mg/dL (9-16); Calcium 10.0 mg/dL (8.4-10.2); Carbon Dioxide 28 mmol/L (22-29); Chloride 103 mmol/L (96-108); Creatinine Clr Calc Pharmacy 70.4; Estimated Glomerular Filt Rate 48; Potassium 4.3 mmol/L (3.3-5.1); Sodium 141 mmol/L (135-145); Total Protein 7.1 g/dL (6.5-8.0)
[2025-04-14 23:14] LABS: NT Pro B Type Natriuretic Pept 253.7 pg/mL (<300); Troponin-I High Sensitivity 4.1 ng/L (<3.5-35.0)
[2025-04-14 23:24] LABS: Resp Syncy Virus RNA Qual PCR NEGATIVE (Negative); SARS COV2 PCR INHOUSE NEGATIVE (Negative)
--- NOTE | 2025-04-14 23:25 | PC.NURSE ---
pt hard stick at this time, multiple attempts made for IV and labs at this time. PA Pressey aware
[2025-04-14 23:57] VITALS: BP 122/65; PULSE 93; RESP 20; TEMP 36.5; O2SAT 94
--- NOTE | 2025-04-14 23:57 | PC.NURSE ---
MAGO Blair at bedside placing US guided IV
--- NOTE | 2025-04-15 00:08 | PC.NURSE ---
US guided 20g IV placed in right upper arm, unable to obtain labs, attempting butterfly
[2025-04-15 00:34] LABS: Hematocrit 36.6 % (42.0-52.0); Hemoglobin 11.8 g/dl (14.0-18.0); Imm Gran Abs Auto 0.01 X10*3/uL (0.00-0.03); Imm Gran Pct Auto 0.1 % (0.0-0.4); Lymphocytes Absolute Auto 0.8 X10*3/uL (1.2-4.9); MANUAL DIFF FLAG NO; Mean Corpuscular HGB Conc 32.2 g/dl (31.0-36.0); Mean Corpuscular Hemoglobin 29.0 pg (27.0-33.0); Mean Corpuscular Volume 89.9 fL (80.0-98.0); NRBC Abs Auto 0.000 X10*3/uL (0.0-0.012); NRBC Pct Auto 0.0 /100WBC (0.0-0.2); Platelet Count 237 X10*3/uL (160-400); Red Blood Count 4.07 X10*6/uL (4.60-5.80); White Blood Count 7.3 X10*3/uL (4.8-10.8)
[2025-04-15 00:43] LABS: D Dimer High Sensitivity < 150 NG/ML
[2025-04-15 01:59] VITALS: BP 102/57; PULSE 89; RESP 17; TEMP 36.6; O2SAT 94
[2025-04-15 02:57] VITALS: BP 131/70; PULSE 96; RESP 18; TEMP 36.6; O2SAT 94
== END 2025-04-15 03:00 | disposition home or self-care (01) ==
PROVIDERS: Physician Assistant Medical; Emergency Provider Student in an Organized Health Care Education/Training Program; PCP Internal Medicine
DX: J18.9 Pneumonia, unspecified organism (principal); J45.901 Unspecified asthma with (acute) exacerbation; R06.02 Shortness of breath; F41.9 Anxiety disorder, unspecified; R07.89 Other chest pain; R11.0 Nausea; R05.9 Cough, unspecified; Z03.818 Encounter for observation for suspected exposure to other biological agents ruled out; Z79.899 Other long term (current) drug therapy
CPT/HCPCS: 36415; 71045; 80053; 83880; 84484; 85025; 85379; 87637; 93005; 94640; 99285

== ENCOUNTER → 2025-04-14 22:21 | Outpatient (BNV) | payer OTHER, SELFPAY | PROVIDERS: Emergency Provider Student in an Organized Health Care Education/Training Program; PCP Internal Medicine; Visit Provider Internal Medicine | DX: R00.0 Tachycardia, unspecified (principal) | CPT/HCPCS: 93010 ==

== ENCOUNTER → 2025-04-15 00:04 | Outpatient (BNV) | payer OTHER, SELFPAY | PROVIDERS: Emergency Provider Student in an Organized Health Care Education/Training Program; PCP Internal Medicine; Visit Provider Radiology Diagnostic Radiology | DX: J98.09 Other diseases of bronchus, not elsewhere classified (principal); J98.11 Atelectasis | CPT/HCPCS: 71045 ==

== ENCOUNTER 2025-04-17 06:12 | Emergency (ER) | payer OTHER, SELFPAY ==
--- NOTE | 2025-04-17 | ECG_ITS ---
Test Reason : CP Blood Pressure : */* mmHG Vent. Rate : 63 BPM Atrial Rate : 63 BPM P-R Int : 134 ms QRS Dur : 106 ms QT Int : 398 ms P-R-T Axes : 27 -5 4 degrees QTcB Int : 407 ms Normal sinus rhythm Minimal voltage criteria for LVH, may be normal variant ( R in aVL ) Borderline ECG When compared with ECG of 14-Apr-2025 22:21, Vent. rate has decreased by 46 bpm Non-specific change in ST segment in Lateral leads T wave inversion now evident in Inferior leads Nonspecific T wave abnormality no longer evident in Lateral leads Referred By: Generic ED Physician Electronically Signed By: HILTON DONATO MD
--- NOTE | ~2025-04-17 | XR_ITS ---
EXAMINATION: XR CHEST CLINICAL INFORMATION: CHEST PX COMPARISON: Previous chest x-ray most recent April 15, 2025 TECHNIQUE: Frontal view of the chest was obtained. FINDINGS: There are areas of bronchial wall thickening and atelectasis or small infiltrate in the left lung. Postsurgical changes and volume loss to the left hemithorax. This is similar to previous exam. The right lung is clear. No pleural effusion or pneumothorax. Cardiac and mediastinal contours are stable. Curvature of the thoracic spine to the left and degenerative changes. XR/XR chest 1V IMPRESSION: Areas of bronchial wall thickening and atelectasis or small infiltrates in the left lung, postsurgical changes and lung volume loss similar to recent exams. The right lung is clear. Electronically signed by: Mamie Tao MD 04/17/2025 08:14 AM [place]
[2025-04-17 06:16] VITALS: BP 175/90; PULSE 59; O2SAT 99; BMI 39.8
[2025-04-17 06:22] VITALS: BP 144/69; PULSE 60; RESP 18; TEMP 36.6; O2SAT 95
--- OUTSIDE RECORDS SUMMARY | 2025-04-17 06:23 | XMS_ITS | Encounter Summary ---
Author Organization [facility] Address [address] [place] [id number] Care Team Providers Care Receiving Associate Name Role Phone Unavailable Primary Care Provider Unavailabl e Encounter Details Date Type Department Care Team (Late st Contact Info) Description 12/23/2021 Scanned Document [facility] [address] [place] [id number] Gastroenterology, Scan Social History Tobacco Use Types [...]
--- OUTSIDE RECORDS SUMMARY | 2025-04-17 06:23 | XMS_ITS | Clinical Summary ---
Author Organization [facility] Address 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
--- OUTSIDE RECORDS SUMMARY | 2025-04-17 06:23 | XMS_ITS | Patient Health Record ---
Author Organization [facility] Address [address] [place] [id number] Care Team Providers Care Fur Designer Name Role Phone Fox Ku MD Primary Care Provider Tashi Bruno Unavailable [phone] Alisha Moore Unavailable Unavailable Allergies No Known Allergies Reason For Referral No Information Medications Medication SIG (Take, Route, Frequency, Duration) Notes Start Date End Date Status Ventolin HFA 108 (90 Base) MCG/ACT Aerosol Solution Inhalation; Duration: 17 Active Atenolol 25 MG Tablet Oral; Duration: 90 Active Tamsulosin HCl 0.4 MG Capsule Oral; Duration: 90 Active Dulcolax (colon prep) 5 MG Tablet Delayed Release Take 2 Dulcolax 2 days before the colonoscopy, and take 2 Dulcolax at 3:00 p.m and 7:00p.m. the day before the colonoscopy Orally Two tablets 2 days before the colonoscopy, and two tablets twice a day for one day before the colonsocpy; Duration: 2 days 04/19/2023 Active Escitalopram Oxalate 20 MG Tablet Oral; Duration: 90 Active MiraLax (colon prep) 17 GM/SCOOP Powder 1/2 bottle of 238Gm Miralax in 1 [...] Active Ferrous Sulfate 325 (65 Fe) MG Tablet Oral; Duration: 90 Active metFORMIN HCl 1000 MG Tablet Oral; Duration: 90 Active Albuterol Sulfate Ac tive Atorvastatin Calcium 40 MG Tablet 1 tablet Orally Once a day Active Omeprazole 40 MG Capsule Delayed Release 1 capsule 30 minutes before morning meal Orally Once a day Active Lantus 100 UNIT/ML Solution as directed Subcutaneous 20 units a day Active Cholecalciferol 50 MCG (2000 UT) Capsule 1 capsule Orally Once a day; Duration: 30 day(s) Active Immunizations Vaccine Route Administration Date Status Comme nts Influenza Unknown 01/09/2017 Administered Social History Tobacco Use: Social History Observation Description Date Details (start date - stop date) Never Smoker NA - NA Social History Drugs/Alcohol: Social Info Question Answer Notes Alcohol Screen Did you have a drink containing alcohol in the past year? No Points 0 Interpretation Negative Tobacco Use: Social Info Question Answer Notes Tobacco Use/Smoking Patient is a nonsmoker Additional Details Category Social Info Options Details Miscellaneous: Marital status: single Occupation: Not working Section Notes: Nonsmoker(never); no sig. al cohol Nonsmoker(never); no sig. al cohol Problems Problem Type SNOMED Code ICD Code Onset Dates Problem Status W/U Status Risk Notes Problem Colon cancer screening (221732387) Colon cancer screening (Z12.11) Active confirmed Problem History of adenomatous polyp of colon (452654271) History of adenomatous polyp of colon (Z86.010) Active confirmed Problem Diverticular disease of colon (027710443) Diverticulosis of large intestine without perforation or abscess without bleeding (K57.30) Active confirmed Problem Gastroesophageal reflux disease without esophagitis (684314439) Gastroesophageal reflux disease without esophagitis (K21.9) Active confirmed Problem Preprocedural examination (238277003769284) Preprocedural examination (Z01.818) Active confirmed Problem Iron deficiency anemia (53198576) Iron deficiency anemia, unspecified iron deficiency anemia type (D50.9) Active confirmed Plan Of Treatment Pending Test Test Name Order Date Pathology 07/13/2023 Future Test Test Name Order Date UPPER GI ENDOSCOPY 06/23/2017 COLONOSCOPY 06/23/2017 COLONOSCOPY 04/17/2023 Insurance Providers Payer Name Payer Address Payer Phone Subscriber Number Group Number Insured Name Patient Relationship to Insured Coverage Start Date Coverage End Date [facility] [address] [address] [place], [place] [id number] KIAN MAHMOOD Self - patient is the insured MEDICAID OF [employer] [address] [place] [phone] [id number] KIAN MAHMOOD Self - patient is the [...] Surgery Date(Month/Year) Mass removed--Dr. Fields at [facility]-- Be nign , but had XRT 2008 Right inguinal hernia 1990 Ear tubes/Adenoids
--- OUTSIDE RECORDS SUMMARY | 2025-04-17 06:23 | XMS_ITS | Clinical Summary ---
Author Organization [facility] Address [address] [place] [address] [address] [place] [place] [phone] Phone Care Team Providers Care Interior Wall Assembler Name Role Phone Bon Arvizu MD Primary Care Provider [phone] Allergies No known active allergies Medications Ventolin [...] Orders Only [facility] [address] [place] [address] Tashi Bonner MD Stage 3b chronic kidney disease (HCC) 02/02/2025 1:30 PM EDT Office Visit [facility] [address] [place] [address] Tashi Bonner MD Stage 3a chronic kidney disease (HCC) (Primary Dx); Type 2 diabetes mellitus with diabetic chronic kidney disease (HCC) 01/23/2025 Telephone [facility] [address] [phone] Tashi Bonner MD from Last 3 Months [...] Visit [facility] [address] [place] [address] Tashi Bonner MD [address] [facility] [address] [place] [address] Health Maintenance Due Date Last Done Comments [...] average glucose, using the formula of the P1J-Sghoriu Average Glucose study (ADAG), Diabetes Care, Vol.31,#8, 2007 01/03/2025 9:39 AM EDT 01/03/2025 9:39 AM EDT us Tashi Bonner MD LAB BLOOD ORDERABLES [facility] See order comments [place] [address] from Last 3 Months or Most Recently Relevant to Health Maintenance Insurance Care Teams Interior Wall Assembler Relationship Specialty Start Date End Date Bon Arvizu MD [address] [facility] [address] [place] [address] PCP - General Internal Medicine 06/04/22
--- OUTSIDE RECORDS SUMMARY | 2025-04-17 06:23 | XMS_ITS | Clinical Summary ---
Author Organization [facility] Address [address] [place] [address] Care Team Providers Care Thermospray Operator Name Role Phone Unavailable Primary Care [...]
[2025-04-17 06:47] LABS: MANUAL DIFF FLAG NO
[2025-04-17 06:56] LABS: Hematocrit 35.7 % (42.0-52.0); Hemoglobin 11.6 g/dl (14.0-18.0); Imm Gran Abs Auto 0.01 X10*3/uL (0.00-0.03); Imm Gran Pct Auto 0.2 % (0.0-0.4); Lymphocytes Absolute Auto 1.3 X10*3/uL (1.2-4.9); Mean Corpuscular HGB Conc 32.5 g/dl (31.0-36.0); Mean Corpuscular Hemoglobin 29.1 pg (27.0-33.0); Mean Corpuscular Volume 89.7 fL (80.0-98.0); NRBC Abs Auto 0.000 X10*3/uL (0.0-0.012); NRBC Pct Auto 0.0 /100WBC (0.0-0.2); Platelet Count 232 X10*3/uL (160-400); Red Blood Count 3.98 X10*6/uL (4.60-5.80); White Blood Count 4.9 X10*3/uL (4.8-10.8)
[2025-04-17 07:08] LABS: Alanine Aminotransferase 11 U/L (0-40); Albumin Level 3.7 g/dL (3.5-5.0); Alkaline Phosphatase 104 U/L (39-117); Anion Gap 15 (12-20); Aspartate Amino Transferase 15 U/L (5-37); Blood Urea Nitrogen 14 mg/dL (9-16); Calcium 9.5 mg/dL (8.4-10.2); Carbon Dioxide 29 mmol/L (22-29); Chloride 101 mmol/L (96-108); Creatinine Clr Calc Pharmacy 75.0; Estimated Glomerular Filt Rate 52; Potassium 4.6 mmol/L (3.3-5.1); Sodium 140 mmol/L (135-145); Total Protein 6.6 g/dL (6.5-8.0)
[2025-04-17 07:11] VITALS: BP 122/78; PULSE 61; RESP 18; TEMP 36.8; O2SAT 98
[2025-04-17 07:12] LABS: Troponin-I High Sensitivity 4.5 ng/L (<3.5-35.0)
--- NOTE | 2025-04-17 07:16 | PC.NURSE ---
Resumed care of pt at 0700, he is resting comfortably in bed. Pt does seem anxious stating that he feels like no one believes him, stating I know that machine tells you my heart rate is fine but it still feels like it is racing This RN provided emotional support to pt, pt reporting he needs to use the bathroom, pt escorted to bathroom at this time. He is a/ox4, reporting that he took his normal medications but denies that they are helping. Awaiting lab work and provider at this time, call leah within reach.
--- NOTE | 2025-04-17 07:18 | ED_ITS ---
HPI - Anxiety General Chief Complaint: Anxiety Stated Complaint: FEELS LIKE HEARTS RACING/60 BPM,ANXIETY,BP 175/90 Time Seen by Provider: 04/17/25 07:12 Source: patient, EMS, RN notes reviewed and old records reviewed Mode of arrival: EMS Limitations: no limitations History of Present Illness ED Provider: Kathie Blair PA-C HPI narrative: Jasbir presents for evaluation of recurrent episodes of subjective tachycardia. Symptoms began last night after he took his usual ?night medicines.? He reports taking hydroxyzine around 18:00 for anxiety and ?Andrae-propofine? (phonetic) at approximately 03:00. Shortly after the second dose he felt that his ?heart stopped, then went fast,? and the sensation worsened despite both medications. Similar episodes have occurred intermittently over the past several months with several prior ED visits for the same concern. At presentation today his measured heart rate is in the 60s, though he continues to perceive that his heart is racing. The patient has a chronic chest wound that has been present ?for a while? and is being treated with doxycycline. He denies new respiratory or infectious symptoms. Patient also mentioned concern about a ?green bottom? and wondered if it could be related to his heart symptoms. Examination today revealed no acute findings and is felt unrelated. Psychiatric history notable for anxiety and intermittent suicidal ideation (SI). He last saw his therapist one week ago and has a follow-up scheduled for tomorrow. Over the past week he notes increasing anxiety and SI that ?comes and goes? but denies a current plan or intent. Significant recent stressors include difficulty finding employment and family stress involving his brother. Review of Systems: * Cardiovascular: Subjective palpitations/heart racing. * Respiratory: Chronic cough unchanged; denies new shortness of breath. * Gastrointestinal: Denies vomiting or diarrhea; stools normal; appetite unchanged. * Psychiatric: Increased anxiety; intermittent SI without current plan; denies homicidal ideation. Social History: * Stressors: Job search difficulties; familial stress related to brother. * Mental health care: Regular therapy; last visit one week ago, next visit tomorrow complaint: anxiety and heart racing Related Data Home Medications ?Medication ?Instructions ?Recorded ?Confirmed metformin 500 mg tablet 1,000 mg PO BIDWMEAL 5 04/27/25 Previous Rx's ?Medication ?Instructions ?Recorded atorvastatin 40 mg tablet 40 mg PO DAILY #30 tabs 01/09 11/02 cholecalciferol (vitamin D3) 50 50 mcg PO DAILY #30 ca ps 01/24/25 mcg (2,000 unit) capsule ferrous sulfate 325 mg (65 mg 325 mg PO DAILY #30 tabs 01/24/25 iron) tablet insulin glargine 100 unit/mL (3 15 unit (0.15 mL) subc ut DAILY #15 01/24/25 mL) subcutaneous pen (Lantus mL Solostar U-100 Insulin) losartan 25 mg tablet 25 mg PO DAILY #30 tabs 01/09 11/02 tamsulosin 0.4 mg capsule 0.4 mg PO BEDTIME #30 caps 0 01/24/25 thiamine HCl (vitamin B1) 100 mg 100 mg PO BID #60 tab s 01/24/25 tablet bupropion HCl 300 mg 24 hr tablet, 300 mg PO DAILY 30 days #30 tabs 03/13/25 extended release clonidine HCl 0.1 mg tablet 0.1 mg PO Q4H PRN moderate anxiety 03/13/25 30 days #90 tabs empagliflozin 10 mg tablet 10 mg PO DAILY 30 days #30 tabs 03/13/25 (Jardiance) escitalopram oxalate 20 mg tablet 20 mg PO DAILY 30 da ys #30 tabs 03/13/25 famotidine 20 mg tablet 20 mg PO BID 30 days #60 tab s 03/13/25 hydroxyzine HCl 25 mg tablet 25 mg PO TID PRN anxiety 30 days 03/13/25 #60 tabs olanzapine 5 mg tablet 5 mg PO DAILY PRN agitation 30 03/13/25 days #15 tabs risperidone 3 mg tablet 3 mg PO BEDTIME 30 days #30 tabs 03/13/25 mecobalamin (vitamin B12) 5,000 5,000 mcg PO DAILY 90 days #90 tabs 03/16/25 mcg disintegrating tablet gauze #30 ea 04/03/25 silver sulfadiazine 1 % topical 1 appl topical DAILY w ound 04/03/25 cream infection #50 grams tape #1 ea 04/03/25 albuterol sulfate 90 mcg/actuation 2 puff inhalation Q 4-6H PRN for 04/10/25 aerosol inhaler (Ventolin HFA) wheezing #18 ea naproxen 500 mg tablet 500 mg PO BID pain #20 tabs 04/12/25 Allergies Allergy/AdvReac Type Severity Reaction Status Date / Time pollen extracts (POLLEN) Allergy Mild RUNNY NOSE Verified 04/27/25 11:33 cat dander (CATS) Allergy Unknown UNKNOWN Verified 04/27/25 11:33 dog dander (DOGS) Allergy Unknown UNKNOWN Verified 04/27/25 11:33 mold (MOLD) Allergy Unknown UNKNOWN Verified 04/27/25 11:33 Review of Systems 2 Review of Systems: Yes all other systems are reviewed and are negative PMFSH Past Medical History Attestation statement: The following information was validated with the patient. Source: old records reviewed and nursing notes reviewed Medical History MDD (major depressive disorder), recurrent, severe, with psychosis Suicidal ideation Situational crisis Suicidal ideation Psychosis Chest pain Allergic rhinitis Insomnia Palpitations Vitamin D deficiency Chronic kidney disease, stage III (moderate) GERD without esophagitis Restrictive lung disease Obesity (BMI 30-39.9) Benign essential hypertension Pure hypercholesterolemia Diabetes mellitus Pulmonary emboli Chondrosarcoma Hyperlipidemia Chronic restrictive lung disease COPD (chronic obstructive pulmonary disease) Asthma Surgical History History of esophagogastroduodenoscopy (EGD) H/O colonoscopy History of inguinal hernia repair Hx of exploratory thoracotomy H/O tooth extraction Family History Family History Father Hypertension Kidney failure, acute Mother Lung cancer Family/Other Diabetes Social History Social History Household Members: Other Household Members Other:: Brother Housing: House Do you presently have visiting nurse or other home services: No Alcohol intake: former Patient Tobacco Use Status: Never used Tobacco e-Cigarette/Vaping Use: Never Used Second Hand Smoke Exposure: No Advance Directives Date on File: 10/25/15 service: No Current occupational status: unemployed Sexual orientation: Straight/Heterosexual Cognitive needs: No Hearing needs: No Vision needs: Yes (Glasses) Physical Exam 2 Exam: Exam: General: Appears in no acute distress, appears well nourished body habitus is obese, appears stated age. No septic or ill-appearing. Vitals reviewed normal, PMH/Social and Surgical hx reviewed including allergies and current medications. - reviewed for prior visits here and read as it pertains to similar CC. Head: Normocephalic, no obvious trauma or skin lesions noted. Eyes: EOMI, conjunctiva and sclera clear ENMT: moist oral mucosa, uvula midline no trismus Neck: trachea midline Cardiovascular: peripheral perfusion normal, Regular heart rate, regular rhythm, pulses equal and symmetric Respiratory: no respiratory distress, lungs clear, chronic abrasions left chest wall, no crepitus Abdomen: nondistended Extremities: warm and moving without difficulty Psych: Cooperative, depressed, Appropriate affect; answers questions coherently; acknowledges intermittent SI without current intent or plan. Neuro: Alert and oriented. Vital Signs: Vital Signs: Last Vital Signs Temp 98.9 F 04/17/25 12:03 Pulse 65 04/17/25 12:03 Resp 20 04/17/25 12:03 BP 97/65 04/17/25 12:03 Pulse Ox 96 04/17/25 12:03 O2 Del Method Room Air 04/17/25 12:03 BMI result Body Mass Index 39.8 Medications Administered Discontinued Medications Generic Name Dose Route Start Last Admin Trade Name Freq PRN Reason Stop Dose Admin Diazepam 5 mg 04/17/25 09:46 04/17/25 10:25 Diazepam 10 Mg/2 Ml Cartridge IM 04/17/25 09:47 5 mg STAT STA Administration Magnesium Sulfate 2 gm in 50 mls @ 150 mls/hr 04/17/25 09:46 04/17/25 12:03 Magnesium Sulfate/H2o IV 04/17/25 10:05 Infused ONCE ONE Infusion Medical Decision Making Medical Decision Making MDM Narrative: Jasbir presented to the ED with subjective tachycardia and anxiety, reporting recurrent episodes over several months and a history of psychiatric symptoms including intermittent suicidal ideation. Examination and laboratory findings were reassuring, with measured heart rate in the 60s and negative urine toxicology, salicylate, and acetaminophen levels. The patient was medically cleared for psychiatric evaluation, assessed by the crisis team, and deemed safe for discharge with appropriate follow-up and return precautions. Patient with recurrent subjective tachycardia in the setting of anxiety, low magnesium, and multiple psychosocial stressors. Currently hemodynamically stable and medically clear for psychiatric evaluation. Problem #1: Anxiety with recurrent palpitations Assessment: Ongoing anxiety with episodic subjective tachycardia; usual PRN hydroxyzine and ?Andrae-propofine? not providing relief. Intermittent suicidal ideation without current plan or intent. Plan: * Medically clear patient for crisis team evaluation today. * Facilitate in-house crisis team consult for further psychiatric assessment and safety planning. * Patient has outpatient therapy appointment scheduled for tomorrow. Problem #2: Normocytic anemia (baseline) Assessment: Stable at Hgb 11.6 g/dL; no signs of bleeding; does not meet transfusion criteria. Plan: * No transfusion indicated; continue routine monitoring. Problem #3: Hypomagnesemia (Mg 1.5 mg/dL) Assessment: Mild; likely multifactorial. Plan: * Administer magnesium repletion per protocol. Problem #4: Chronic chest wound / post-surgical changes Assessment: Wound appears clean with no acute infection; patient currently on doxycycline. Plan: * Continue doxycycline as prescribed. Disposition / Follow-up: Patient evaluated by crisis team and deemed safe for discharge home. Return precautions provided. Follow-up per crisis team recommendations and routine outpatient therapy appointment tomorrow. 0839: CXR at baseline with: IMPRESSION: Areas of bronchial wall thickening and atelectasis or small infiltrates in the left lung, postsurgical changes and lung volume loss similar to recent exams. The right lung is clear. Differential Diagnosis Differential Diagnoses: The differential diagnosis associated with the presentation includes Admission/Observation Consideration of admission/observation: Escalation of care including admission/observation considered Patient would have been admitted to the hospital had hiswork up had any findings where hospital admission was appropriate and his clinical presentation warranted hospital admission. Consult Healthcare Provider Management of the patient was discussed with: Forensic Audit Expert Lab Data MDM Lab Attestation statement: I reviewed the patient's lab results. * Hgb 11.6 g/dL / Hct 35.7 % ? baseline normocytic anemia. * Creatinine 1.4 mg/dL ? baseline, no TL. * Glucose 284 mg/dL ? known diabetic. * Magnesium 1.5 mg/dL ? low; repletion planned. * UA: No evidence of UTI. * Urine toxicology screen: negative. * Salicylate level: negative. * Acetaminophen (Tylenol) level: negative. 04/17/25 06:41 04/17/25 06:41 Labs: Lab Results 04/17/25 04/17/25 04/17/25 Range/Units 06:41 07:35 08:32 WBC 4.9 (4.8-10.8) X10*3/uL RBC 3.98 L (4.60-5.80) X10*6/uL Hgb 11.6 L (14.0-18.0) g/dl Hct 35.7 L (42.0-52.0) % MCV 89.7 (80.0-98.0) fL MCH 29.1 (27.0-33.0) pg MCHC 32.5 (31.0-36.0) g/dl RDW 14.1 (11.0-16.0) % Plt Count 232 (160-400) X10*3/uL MPV 10.7 (9.4-12.4) fL Immature Gran % (Auto) 0.2 (0.0-0.4) % Neut % (Auto) 55.4 (45-73) % Lymph % (Auto) 27.0 (20-40) % [place]pson % (Auto) 9.4 (2-11) % Eos % (Auto) 7.6 H (0-4) % Baso % (Auto) 0.4 (0-2) % Lymph # (Auto) 1.3 (1.2-4.9) X10*3/uL [place] # (Auto) 0.5 (0.1-1.2) X10*3/uL Eos # (Auto) 0.4 (0.0-0.4) X10*3/uL Baso # (Auto) 0.0 (0.0-0.2) X10*3/uL Abs Immat Gran (auto) 0.01 (0.00-0.03) X10*3/uL Absolute Neuts (auto) 2.7 (2.0-8.3) x10*3/uL Absolute Nucleated RBC 0.000 (0.0-0.012) X10*3/uL Nucleated RBC % (auto) 0.0 (0.0-0.2) /100WBC Sodium 140 (135-145) mmol/L Potassium 4.6 (3.3-5.1) mmol/L Chloride 101 (96-108) mmol/L Carbon Dioxide 29 (22-29) mmol/L Anion Gap 15 (12-20) BUN 14 (9-16) mg/dL Creatinine 1.41 H (0.5-1.4) mg/dL Estim Creat Clear Calc 75.0 Estimated GFR 52 Random Glucose 284 H (60-115) mg/dL Calcium 9.5 (8.4-10.2) mg/dL Magnesium 1.5 L (1.6-2.6) mg/dL Total Bilirubin 0.3 (0.0-1.0) mg/dL AST 15 (5-37) U/L ALT 11 (0-40) U/L Alkaline Phosphatase 104 (39-117) U/L Troponin I High Sens 4.5 (<3.5-35.0) ng/L Total Protein 6.6 (6.5-8.0) g/dL Albumin 3.7 (3.5-5.0) g/dL Urine Color Yellow Urine Appearance Clear Urine pH 8.5 (5.0-9.0) Ur Specific [place] 1.015 (1.005-1.025) Urine Protein Trace (Neg-Trace) mg/dL Urine Glucose (UA) 250 H (Negative) mg/dL Urine Ketones Negative (Negative) mg/dL Urine Blood Trace H (Negative) Urine Nitrite Negative (Negative) Ur Leukocyte Esterase Negative (Negative) Urine RBC 6-10 H (0-2) /HPF Urine WBC 0-5 (0-5) /HPF Ur Squamous Epith Cells 0-2 (0-2) /HPF Urine Bacteria None Seen (None Seen) Hyaline Casts 0-2 (0-2) /LPF Salicylates < 5.0 L (15-30) mg/dL Urine Opiates Screen (Not Detect) Ur Buprenorphine Scrn (Not Detect) ng/mL Ur Oxycodone Screen (Not Detect) ng/mL Urine Methadone Screen (Not Detect) ng/mL Urine Fentanyl Screen (Not Detect) Acetaminophen < 3 (<30) mcg/mL Ur Barbiturates Screen (Not Detect) Ur Phencyclidine Scrn (Not Detect) Ur Amphetamines Screen (Not Detect) U Benzodiazepines Scrn (Not Detect) Urine Cocaine Screen (Not Detect) U Marijuana (THC) Screen (Not Detect) Ethyl Alcohol 14 mg/dL 04/17/25 04/17/25 Range/Units 09:30 11:21 WBC (4.8-10.8) X10*3/uL RBC (4.60-5.80) X10*6/uL Hgb (14.0-18.0) g/dl Hct (42.0-52.0) % MCV (80.0-98.0) fL MCH (27.0-33.0) pg MCHC (31.0-36.0) g/dl RDW (11.0-16.0) % Plt Count (160-400) X10*3/uL MPV (9.4-12.4) fL Immature Gran % (Auto) (0.0-0.4) % Neut % (Auto) (45-73) % Lymph % (Auto) (20-40) % Upson % (Auto) (2-11) % Eos % (Auto) (0-4) % Baso % (Auto) (0-2) % Lymph # (Auto) (1.2-4.9) X10*3/uL [place]pson # (Auto) (0.1-1.2) X10*3/uL Eos # (Auto) (0.0-0.4) X10*3/uL Baso # (Auto) (0.0-0.2) X10*3/uL Abs Immat Gran (auto) (0.00-0.03) X10*3/uL Absolute Neuts (auto) (2.0-8.3) x10*3/uL Absolute Nucleated RBC (0.0-0.012) X10*3/uL Nucleated RBC % (auto) (0.0-0.2) /100WBC Sodium (135-145) mmol/L Potassium (3.3-5.1) mmol/L Chloride (96-108) mmol/L Carbon Dioxide (22-29) mmol/L Anion Gap (12-20) BUN (9-16) mg/dL Creatinine (0.5-1.4) mg/dL Estim Creat Clear Calc Estimated GFR Random Glucose (60-115) mg/dL Calcium (8.4-10.2) mg/dL Magnesium 1.7 (1.6-2.6) mg/dL Total Bilirubin (0.0-1.0) mg/dL AST (5-37) U/L ALT (0-40) U/L Alkaline Phosphatase (39-117) U/L Troponin I High Sens (<3.5-35.0) ng/L Total Protein (6.5-8.0) g/dL Albumin (3.5-5.0) g/dL Urine Color Urine Appearance Urine pH (5.0-9.0) Ur Specific [place] (1.005-1.025) Urine Protein (Neg-Trace) mg/dL Urine Glucose (UA) (Negative) mg/dL Urine Ketones (Negative) mg/dL Urine Blood (Negative) Urine Nitrite (Negative) Ur Leukocyte Esterase (Negative) Urine RBC (0-2) /HPF Urine WBC (0-5) /HPF Ur Squamous Epith Cells (0-2) /HPF Urine Bacteria (None Seen) Hyaline Casts (0-2) /LPF Salicylates (15-30) mg/dL Urine Opiates Screen Not Detected (Not Detect) Ur Buprenorphine Scrn Not Detected (Not Detect) ng/mL Ur Oxycodone Screen Not Detected (Not Detect) ng/mL Urine Methadone Screen Not Detected (Not Detect) ng/mL Urine Fentanyl Screen Not Detected (Not Detect) Acetaminophen (<30) mcg/mL Ur Barbiturates Screen Not Detected (Not Detect) Ur Phencyclidine Scrn Not Detected (Not Detect) Ur Amphetamines Screen Not Detected (Not Detect) U Benzodiazepines Scrn Not Detected (Not Detect) Urine Cocaine Screen Not Detected (Not Detect) U Marijuana (THC) Screen Not Detected (Not Detect) Ethyl Alcohol mg/dL Independent Interpretation I performed an independent interpretation of an: EKG and Plain X-Ray Interpretation: 62 bpm: no malignant arrhythmia or ischemia CXR: Baseline left lower lobe atelectasis and post-surgical changes; no acute findings Radiology Impression Discussion of test interpretation with radiology: I have reviewed the radiologist's reading. Independent Historian Clinical information obtained from an independent historian. History obtained from or confirmed by: EMS External Record Review External record reviewed: Inpatient record Prescription Management I considered prescription management with: Other Chronic Conditions Patient?s care impacted by: Other Social Determinants Patient?s care significantly limited by Social Determinants of Health including: Problems related to primary support group and Other Social Determinant of Health Critical Care Time Critical Care Time Critical Care Time: Yes Total Critical Care Time: 35 Attestation: This patient required critical care. Due to the fact that the patient required a significant amount of one on one physician ? patient contact time, ordering and review of studies, arranging urgent treatment with development of a management plan, evaluation of patient?s response to treatment with frequent reassessments, and discussions with other providers this patient required critical care time in excess of 30 minutes. Critical care time was indicated due to the inherent instability and/or potential for instability in this patient. The critical care time that is allocated to this patient is above and beyond any time spent on any other billable procedures performed on this patient. Discharge Plan Discharge Clinical Impression: Anxiety, Hypomagnesemia Patient Disposition: Home, Self-Care Instructions: Hypomagnesemia (ED), Anxiety (ED) Additional Instructions: Your EKG and Chest XRAY is at baseline. You have chronic shortness of breath and chronic anxiety. Your magnesium was borderline low and was replenished. You were cleared by the crisis care team. Continue to take your home medications as directed, continue to see your therapist. Follow up with your primary care as needed. You were seen in our Emergency Department today for treatment of a behavioral health issue. It is important after your visit that you follow up with either your behavioral health provider or a primary care doctor within 7 days.? If you have trouble finding a therapist you can reach out to [place] [phone] The National Suicide and Crisis Lifeline can be reached 7 days a week 24 hours a day.? Call 988 to speak with someone.? Return for any worsening symptoms or concerns such as thoughts of self harm or harm to others. Please call 911 if you feel your mental health is worsening.? Prescriptions: No Action albuterol sulfate [Ventolin HFA] 90 mcg/actuation HFA aerosol inhaler 2 puff inhalation Q4-6H PRN (Reason: for wheezing) Qty: 18 1RF clonidine HCl 0.1 mg Tablet 0.1 mg PO Q4H PRN (Reason: moderate anxiety) 30 Days Qty: 90 0RF Protocol: Hold for SBP< HOLD for SBP < : 90 bupropion HCl 300 mg Tablet Extended Release 24 Hr 300 mg PO DAILY 30 Days Qty: 30 0RF risperidone 3 mg tablet 3 mg PO BEDTIME 30 Days Qty: 30 0RF famotidine 20 mg Tablet 20 mg PO BID 30 Days Qty: 60 0RF Jardiance 10 mg Tablet 10 mg PO DAILY 30 Days Qty: 30 0RF olanzapine 5 mg Tablet 5 mg PO DAILY PRN (Reason: agitation) 30 Days Qty: 15 0RF hydroxyzine HCl 25 mg tablet 25 mg PO TID PRN (Reason: anxiety) 30 Days Qty: 60 1RF escitalopram oxalate 20 mg tablet 20 mg PO DAILY 30 Days Qty: 30 0RF atorvastatin 40 mg tablet 40 mg PO DAILY Qty: 30 0RF thiamine HCl (vitamin B1) 100 mg tablet 100 mg PO BID Qty: 60 0RF tamsulosin 0.4 mg capsule 0.4 mg PO BEDTIME Qty: 30 0RF ferrous sulfate 325 mg (65 mg iron) tablet 325 mg PO DAILY Qty: 30 0RF losartan 25 mg tablet 25 mg PO DAILY Qty: 30 0RF insulin glargine [Lantus Solostar U-100 Insulin] 100 unit/mL (3 mL) insulin pen 15 unit subcut DAILY Qty: 15 0RF cholecalciferol (vitamin D3) 50 mcg (2,000 unit) capsule 50 mcg PO DAILY Qty: 30 0RF mecobalamin (vitamin B12) 5,000 mcg tablet,disintegrating 5,000 mcg PO DAILY 90 Days Qty: 90 1RF metformin 500 mg tablet 1,000 mg PO BIDWMEAL silver sulfadiazine 1 % cream 1 appl topical DAILY Qty: 50 0RF Rx Instructions: apply a 1.5 mm thickness (DME) gauze 4x4 See Rx Instructions .Route .MEDSUPPLY Qty: 30 3RF Rx Instructions: As directed (DME) tape 2 in See Rx Instructions .Route .MEDSUPPLY Qty: 1 3RF Rx Instructions: As directed naproxen 500 mg tablet 500 mg PO BID Qty: 20 0RF Referrals: [facility] [Outside] Interventions: ED Discharge Assessment Last Done: 04/17/25 12:03 Discharge Date/Time: 04/17/25 12:04 Print Language: Belarusian
[2025-04-17 07:41] LABS: Appearance Urine Clear; Glucose Urine UA 250 mg/dL (Negative); PH 8.5 (5.0-9.0); Specific Gravity - Urine 1.015 (1.005-1.025); UMIC TRIGGER UACC YES
[2025-04-17 07:44] LABS: Magnesium 1.5 mg/dL (1.6-2.6)
--- NOTE | 2025-04-17 07:49 | PC.NURSE ---
PT started to make SI statements and wanting to see careteam. This RN completed safety telephone exchange operator, storage garage attendant aware, pt moved to another room for sitter situation at this time. 2 belonging bags placed in [place]
[2025-04-17 09:00] LABS: Acetaminophen LAB < 3 mcg/mL (<30); Salicylate < 5.0 mg/dL (15-30)
[2025-04-17 10:24] VITALS: BP 156/74; PULSE 69; RESP 20; TEMP 36.6; O2SAT 96
[2025-04-17] MEDS: diazePAM 10 MG/2 ML CARTRIDGE 5 MG IM (10:25)
[2025-04-17] MEDS: Magnesium Sulfate/H2O 2 GM/50 ML PIGGYBACK IV (10:26)
[2025-04-17 10:31] LABS: Cannabinoid Screen Urine Not Detected (Not Detect)
[2025-04-17 11:41] LABS: Magnesium 1.7 mg/dL (1.6-2.6)
[2025-04-17 12:03] VITALS: BP 97/65; PULSE 65; RESP 20; TEMP 37.2; O2SAT 96
--- NOTE | 2025-04-17 13:47 | MHC.CARE ---
Pt has been referred to [facility] for a 3 day follow up and has been placed on a 7 day alert. [facility] confirms receipt of the referral.
== END 2025-04-17 12:04 | disposition home or self-care (01) ==
PROVIDERS: Physician Assistant Medical; Emergency Provider Student in an Organized Health Care Education/Training Program; PCP Internal Medicine
DX: F41.9 Anxiety disorder, unspecified (principal); E83.42 Hypomagnesemia; R07.9 Chest pain, unspecified; R06.02 Shortness of breath; E11.9 Type 2 diabetes mellitus without complications; E78.5 Hyperlipidemia, unspecified; J45.909 Unspecified asthma, uncomplicated; E78.00 Pure hypercholesterolemia, unspecified
CPT/HCPCS: 36415; 71045; 80053; 80143; 80179; 80307; 81001; 83735; 84484; 85025; 93005; 96365; 96366; 96372; 99285; J3360; J3475; S9485

== ENCOUNTER → 2025-04-17 06:29 | Outpatient (BNV) | payer OTHER, SELFPAY | PROVIDERS: Emergency Provider Student in an Organized Health Care Education/Training Program; PCP Internal Medicine; Visit Provider Internal Medicine Cardiovascular Disease | DX: R07.9 Chest pain, unspecified (principal) | CPT/HCPCS: 93010 ==

== ENCOUNTER → 2025-04-17 07:24 | Outpatient (BNV) | payer OTHER, SELFPAY | PROVIDERS: Emergency Provider Student in an Organized Health Care Education/Training Program; PCP Internal Medicine; Visit Provider Radiology Diagnostic Radiology | DX: J98.09 Other diseases of bronchus, not elsewhere classified (principal); J98.11 Atelectasis | CPT/HCPCS: 71045 ==

== ENCOUNTER 2025-04-27 10:57 | Outpatient (AMB) | payer OTHER, SELFPAY ==
--- NOTE | 2025-04-27 11:12 | A.OFFVIS_ITS ---
Vital Signs 04/27/25 11:13 Height 5 ft 8 in Weight 253 lb 8.505 oz BMI 38.5 BP 140/78 H Blood Pressure Location Lt brachial Position Sitting Pulse 84 Pulse Source Pulse Oximeter Pulse Oximetry (%) 97 Oxygen Delivery Method Room Air Intake Visit Reasons: COPD Intake Note: pt is here for follow up and states he had pneumonia a couple of times, feeling okay, couple weeks ago, was his last dx, here at [facility]. 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 Metal Caster: Metal Caster offered & declined Allergies pollen extracts (POLLEN) Allergy (Mild, Verified 04/27/25 11:33) RUNNY NOSE cat dander (CATS) Allergy (Unknown, Verified 04/27/25 11:33) UNKNOWN dog dander (DOGS) Allergy (Unknown, Verified 04/27/25 11:33) UNKNOWN mold (MOLD) Allergy (Unknown, Verified 04/27/25 11:33) UNKNOWN Medication List - Last Reconciled 04/27/25 by Bryant Correa MD albuterol sulfate 90 mcg/actuation (Ventolin HFA) 2 puffs inhalation Q4-6H PRN atorvastatin 40 mg PO DAILY bupropion HCl XL 300 mg PO DAILY 30 days cholecalciferol (vitamin D3) 50 mcg PO DAILY clonidine HCl 0.1 mg See Protocol PO Q4H PRN 30 days empagliflozin (Jardiance) 10 mg PO DAILY 30 days escitalopram oxalate 20 mg PO DAILY 30 days famotidine 20 mg PO BID 30 days ferrous sulfate 325 mg PO DAILY [gauze As directed] hydroxyzine HCl 25 mg PO TID PRN 30 days insulin glargine (Lantus Solostar U-100 Insulin) 15 units (0.15 mL) subcut DAILY losartan 25 mg PO DAILY mecobalamin (vitamin B12) 5,000 mcg PO DAILY 90 days metformin 1,000 mg PO BIDWMEAL naproxen 500 mg PO BID olanzapine 5 mg PO DAILY PRN 30 days risperidone 3 mg PO BEDTIME 30 days silver sulfadiazine 1% 1 appl topical DAILY tamsulosin 0.4 mg PO BEDTIME [tape As directed] thiamine HCl (vitamin B1) 100 mg PO BID Do you need a note to return to daycare/school/sports/work: No HPI HPI COPD: Details: Jasbir is 54 years old gentleman grossly obese, with multiple comorbidities including diabetes mellitus, hyperlipidemia, depression, GERD symptoms. Back pain. 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 It has left a big gap in the left thoracic wall, and on account of that has restrictive pulmonary disorder. In addition he also has mild intermittent bronchial asthma, for which he uses albuterol p.r.n.. His pulmonary function test has shown presence of restrictive pulmonary disorder as expected, but no definite obstructive disorder . Jasbir does have chronic depression with psychotic disorder, he has had suicidal ideation and has been treated in the psych unit. Currently Jasbir is living with his brother Jasbir claims that he does not smoke. Or drink any alcohol. It was last seen by me in September of this year and since then he missed his appointments. In the meantime he has been seen a few times in the emergency room and treated for possible pneumonia. His repeated chest x-rays continue to show volume loss in the left lower lobe area which is related to his previous thoracic surgery. After his recent visit to the emergency room he has been treated with a course of doxycycline for possible pneumonitis. At present he denies any cough or expectoration and denies fever or chills. He walks slow and does not have any increased shortness of breath on walking. At rest his cough is minimal and he has no dyspnea or wheezing. [facility] Medical History MDD (major depressive disorder), recurrent, severe, with psychosis Suicidal ideation Situational crisis Suicidal ideation Psychosis Chest pain Allergic rhinitis Insomnia Palpitations Vitamin D deficiency Chronic kidney disease, stage III (moderate) GERD without esophagitis Restrictive lung disease Obesity (BMI 30-39.9) Benign essential hypertension Pure hypercholesterolemia Diabetes mellitus Pulmonary emboli Chondrosarcoma Hyperlipidemia Chronic restrictive lung disease COPD (chronic obstructive pulmonary disease) Asthma Surgical History History of esophagogastroduodenoscopy (EGD) H/O colonoscopy History of inguinal hernia repair Hx of exploratory thoracotomy H/O tooth extraction Family History Father Hypertension Kidney failure, acute Mother Lung cancer Family/Other Diabetes Social History Household Members: Other Household Members Other:: Brother Housing: House Do you presently have visiting nurse or other home services: No Alcohol intake: former Patient Tobacco Use Status: Never used Tobacco e-Cigarette/Vaping Use: Never Used Second Hand Smoke Exposure: No Advance Directives Date on File: 10/25/15 service: No Current occupational status: unemployed Sexual orientation: Straight/Heterosexual Cognitive needs: No Hearing needs: No Vision needs: Yes (Glasses) Review of Systems Const All systems reviewed & are unremarkable except as noted in HPI and below Eyes Reports no additional complaints ENT Reports nasal congestion (Mild off and on) Card Denies chest pain, Denies irregular heart rhythm, Denies leg edema and Reports dyspnea on exertion Resp Reports as per HPI and Reports dyspnea on exertion GI Reports heartburn (Being treated for GERD with omeprazole) Reports no additional complaints Musc Reports back pain (Mild) and Reports other (Inter stitch sided chest wall pain) Skin/Breast Reports system reviewed and no additional complaints, except as documented Neuro Reports no additional complaints Psych Reports depression (Treated with med) Endo Reports other (Type 2 diabetes being treated with metformin) Physical Exam Vital Signs: Last Vital Signs Pulse 84 04/27/25 11:13 BP 140/78 H 04/27/25 11:13 Pulse Ox 97 04/27/25 11:13 Oxygen Delivery Method Room Air 04/27/25 11:13 BMI result Body Mass Index 38.5 Const General: cooperative, no acute distress, alert and awake Orientation/consciousness: patient oriented x3 HEENT Head: Yes normal to inspection General nose exam: No nasal polyps present and No nasal discharge present Face and sinus: Yes sinuses nontender Mouth: oropharynx normal Throat: Yes posterior oropharynx normal Eyes General: appearance normal, both eyes and all related structures Neck Neck: Yes normal visual inspection and Yes no JVD Thyroid: Thyroid normal Chest Other: Left chest wall abnormality status post remote surgery Chest palpation & inspection: normal inspection of the chest (Extensive scars on the left lower chest wall from previous surgery), normal palpation of entire chest wall and no tenderness Resp Other: Breath sounds are markedly diminished over the left lower lung . Percussion note is resonant on the right side, with decreased breath sounds, but no wheezes or rhonchi are heard. Effort & Inspection: normal respiratory effort, able to speak in complete sentences and not labored Auscultation: clear to auscultation bilaterally, no crackles, no rales, no rhonchi and no wheezes Cardio Palpation: normal PMI Rate: regular rate Rhythm: regular rhythm Heart sounds: S1 normal heart sound present and S2 normal heart sound present Peripheral pulses: Peripheral pulses 2+ throughout GI Inspection: Yes normal to inspection Palpation (GI): Soft to palpation, nontender, No hepatosplenomegaly present and no masses Auscultation: normal bowel sounds Back/Spine/Pelvis Thoracic/Lumbar Spine: thoracic and lumbar spine normal to inspection and thoraco-lumbar ROM limited Skin General skin exam: no rashes or lesions noted Neuro General: patient oriented x3 Cranial nerves: Yes CN's II-XII intact bilaterally Extrem General: Yes normal to inspection and No edema Psych Appearance: grossly normal and well kempt Speech and movement: Normal speech and movement present Results Reviewed Results Reviewed: Several chest x-rays performed since his last visit in September of this year, are reviewed. He continues to have some volume loss in the left lower lobe area related to his old thoracic surgery. Assessment & Plan Assessment & Plan (1) Asthma: Comment: See under Asthma /COPD , IT IS FAIRLY WELL CONTROLLED AT THIS TIME. NO ACTIVE WHEEZES OR RHONCHI ARE HEARD, Code(s): J45.909 - Unspecified asthma, uncomplicated Category: Medical Qualifiers: Asthma severity: unspecified severity Asthma persistence: unspecified Asthma complication type: unspecified Qualified Code(s): J45.909 - Unspecified asthma, uncomplicated Plan: HE IS ADVISED TO USE ALBUTEROL HFA 1 OR 2 PUFFS Q 4-6 HOURS P.R.N. IF HE HAS ANY PERSISTENT COUGH OR WHEEZING (2) Chronic restrictive lung disease: Comment: CHRONIC RESTRICTIVE LUNG DISEASE SECONDARY TO, PAST 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 GROSS OBESITY ALSO CONTRIBUTES TO RESTRICTIVE DISORDER. Code(s): J98.4 - Other disorders of lung Category: Medical Plan: ADVISED TO DO DEEP BREATHING EXERCISES AT LEAST 3 TIMES A DAY (3) Obesity (BMI 30-39.9): Comment: He remains grossly overweight. Denies symptoms of sleep apnea. Trying to lose weight on his own with diet and exercise. DID LOSE ABOUT 10 LB IN THE LAST 6 MONTHS. However he is not able to do much exercise, as he cannot walk long distance Code(s): E66.9 - Obesity, unspecified Category: Medical Plan: JASBIR IS ADVISED TO WATCH HIS DIET. TRY TO WALK ON THE LEVEL GROUND MUCH POSSIBLE. TRY TO DO DEEP BREATHING EXERCISES 3 TIMES A DAY. ALSO ENCOURAGED TO KEEP GOOD PERSONAL HYGIENE. Medications: Changed From metformin 500 mg PO BIDWMEAL 30 days 60 tabs 0RF To metformin 1,000 mg PO BIDWMEAL Coding Level of Care Code Est Pt Level 3 (86954) Diagnoses Asthma, unspecified asthma severity, unspecified whether complicated, unspecified whether persistent J45.909 Asthma severity: unspecified severity Asthma persistence: unspecified Asthma complication type: unspecified Chronic restrictive lung disease J98.4 Obesity (BMI 30-39.9) E66.9
[2025-04-27 11:13] VITALS: BP 140/78; PULSE 84; O2SAT 97; BMI 38.5
--- OUTSIDE RECORDS SUMMARY | 2025-04-27 14:12 | XMS_ITS | Clinical Summary ---
Author Organization [facility] Address [address] [place] [address] Care Team Providers Care Prep Room Supervisor Name Role Phone Unavailable Primary Care [...] of 2) 2020 COVID-19 Vaccine (1 - 2024- season) 2025 RSV Vaccine 50 years and old er and Patients (1 - 1-dose 75+ series) 2045
--- OUTSIDE RECORDS SUMMARY | 2025-04-27 14:13 | XMS_ITS | Encounter Summary ---
Author Organization [facility] Address [address] [place] [id number] Care Team Providers Care Label Printer Name Role Phone Unavailable Primary Care Provider Unavailabl e Encounter Details Date Type Department Care Team (Late st Contact Info) Description 12/23/2021 Scanned Document [address] [facility] [address] [place] [id number] Gastroenterology, Scan Social History Tobacco Use Types [...]
--- OUTSIDE RECORDS SUMMARY | 2025-04-27 14:13 | XMS_ITS | Clinical Summary ---
Author Organization [facility] Address [address] [place] [address] Care Team Providers Care Mailroom Messenger Name Role Phone Unavailable Primary Care Provider [...] Description 02/01/2025 10:00 AM EDT Office Visit [facility] [address] [place] [address] Perez Romero DDS Dental abscess (Primary Dx); [...] Care Team (Late st Contact Info) Description 06/19/2025 9:30 AM EST Office Visit [facility] [address] [place] [address] Perez Romero, DDS [address] [place], [place] [id number] Health Maintenance Due Date Last Done Comments CT Colonography 1970 Colonoscopy 1970 Colorectal Cancer Screening 1970 Dental Prophylaxis 1970 Dental X-Ray: Bitewings 1970 Depression Screening 1970 FIT DNA/Cologuard 1970 FIT 1970 FOBT 1970 HIV Screening 1970 Lipid Panel 1970 SDOH Screening 1970 Sigmoidoscopy 1970 Disability Screening 1970 Alcohol/Substance Use Screening 1982 Hepatitis C Screening 1988 Pneumococcal Vaccine: 50+ Years (2 of 2 - PCV) 10/03/2016 10/04/2015 Dental Oral Exam 09/14/2019 03/15/2019, 06/04/2018 COVID-19 Vaccine (4 - season) 2025 03/21/2024, [...] Most Recently Relevant to Health Maintenance [facility] ST[facility] ADULT
--- OUTSIDE RECORDS SUMMARY | 2025-04-27 14:13 | XMS_ITS | Patient Health Record ---
Author Organization [facility] Address [address] [place] [phone] Care Team Providers Care Nuclear Power Reactor Operator Name Role Phone Fox Ku MD Primary Care Provider Tashi Bruno Unavailable [phone] Alisha Moore Unavailable Unavailable Allergies No Known [...] Status Risk Notes Problem Colon cancer screening (213288587) Colon cancer screening (Z12.11) Active confirmed Problem History of adenomatous polyp of colon (371499211) History of adenomatous polyp of colon (Z86.010) Active confirmed Problem Diverticular disease of colon (133256724) Diverticulosis of large intestine without perforation or abscess without bleeding (K57.30) Active confirmed Problem Gastroesophageal reflux disease without esophagitis (813162676) Gastroesophageal reflux disease without esophagitis (K21.9) Active confirmed Problem Preprocedural examination (810097375590520) Preprocedural examination (Z01.818) Active confirmed Problem Iron deficiency anemia (94959665) Iron deficiency anemia, unspecified iron deficiency anemia type (D50.9) Active confirmed Plan Of Treatment Pending Test Test Name Order Date Pathology 07/13/2023 Future Test Test Name Order Date UPPER GI ENDOSCOPY 06/23/2017 COLONOSCOPY 06/23/2017 COLONOSCOPY 04/17/2023 Insurance Providers Payer Name Payer Address Payer Phone Subscriber Number Group Number Insured Name Patient Relationship to Insured Coverage Start Date Coverage End Date [facility] [address] [address] [place], [place] [id number] KIAN MAHMOOD Self - patient is the insured MEDICA[employer] OF [employer] [address] [place] [address] [id number] KIAN MAHMOOD Self - patient is the insured Medical (General) History Medical History History ICD Code IDDM Hypertension Heart murmur-Dr. Collins Asthma/COPD- Dr. Correa Pulmonary embolus in 2015--on Coumadin-- sees Dr. Moore Lung mass--surgery in 2008 a s below, with XRT; biopsied in approx 2015 and benign--followed by Dr. Tion [place],CVA,renal disease GERD--upper endoscopy August of 2017 with [...] History Surgery Date(Month/Year) Mass removed--Dr. Fields at [facility]-- Be nign , but had XRT 2008 Right inguinal hernia 1990 Ear tubes/Adenoids
--- OUTSIDE RECORDS SUMMARY | 2025-04-27 14:13 | XMS_ITS | Clinical Summary ---
Author Organization [facility] Address [address] [place] [address] [address] [place] [place] [phone] Phone Care Team Providers Care Clinical Unit Educator Name Role Phone Bon Arvizu MD Primary Care Provider [phone] Allergies No known active allergies Medications Ventolin [...] Only [facility] [address] [place] [address] Tashi Bonner MD Stage 3b chronic kidney disease (HCC) 02/02/2025 1:30 PM EDT Office Visit [facility] [address] [place] [address] Tashi Bonner MD Stage 3a chronic kidney [...] Visit [facility] [address] MARTINEZ Jeison [place] [phone] Tashi Bonner MD [address] [facility] [address] [place] [phone] Health Maintenance Due Date Last Done Comments [...] average glucose, using the formula of the M1W-Sayptxq Average Glucose study (ADAG), Diabetes Care, Vol.31,#8, Dec. 2007 01/03/2025 9:39 AM EDT 01/03/2025 9:39 AM EDT us Tashi Bonner MD LAB BLOOD ORDERABLES Final Result BRIANNE See order comments [place] [address] from Last 3 Months or Most Recently Relevant to Health Maintenance [place] [address] [place] [address] Care Teams Clinical Unit Educator Relationship Specialty Start Date End Date Bon Arvizu MD [address] [place] [id number] PCP - General Internal Medicine 06/04/22
== END 2025-04-27 11:46 | disposition home or self-care (01) ==
LOC: HO.HPS 10:58
PROVIDERS: PCP Internal Medicine; Visit Provider Internal Medicine
DX: J45.909 Unspecified asthma, uncomplicated (principal); J98.4 Other disorders of lung; E66.9 Obesity, unspecified
CPT/HCPCS: 99213

== ENCOUNTER → 2025-04-27 10:57 | Outpatient (BNVA) | payer OTHER, SELFPAY | PROVIDERS: PCP Internal Medicine; Visit Provider Internal Medicine | DX: J45.909 Unspecified asthma, uncomplicated (principal); J98.4 Other disorders of lung; E66.9 Obesity, unspecified; Z68.38 Body mass index [BMI] 38.0-38.9, adult; Z79.84 Long term (current) use of oral hypoglycemic drugs | CPT/HCPCS: 99212 ==